=== PATIENT | female | born 1940 | race Caucasian/White ===

== ENCOUNTER 2022-04-16 09:50 | Inpatient (IN) | payer MEDICARE, SELFPAY ==
[2022-04-16] VITALS (17 sets, daily range): BP systolic 104–183; BP diastolic 53–77; PULSE 55–78; RESP 16–24; TEMP 35.7–36.2; O2SAT 88–97; BMI 25.6; BMI 23.4
--- NOTE | 2022-04-16 10:33 | CRLHL7_ITS ---
For Patients: As a result of the Century Cures Act, medical imaging exams and procedure reports are released immediately into your electronic medical record. You may view this report before your referring provider. If you have questions, please contact your health care provider. INDICATION: Dyspnea. History of coated. History of breast cancer. COMPARISON: None provided. TECHNIQUE: 90 mL Isovue-370 IV contrast. FINDINGS: Adequate pulmonary artery opacification with no filling defects. Prominent atherosclerosis of aorta and coronary arteries without aneurysmal dilatation. Dense mitral valve calcification. Normal heart size. No pericardial effusion. Small dependent right pleural effusion. Small punctate calcified granulomas in the spleen. No adrenal nodule. Relatively atrophied right greater left kidneys. Moderate architectural distortion, lucent blebs and reticular prominence for emphysema in the lung parenchyma. Mild peribronchial interstitial thickening. Scattered foci of small volume retained fluid/mucous in the dependent bronchi in the lower lobes bilaterally. No aspiration pneumonitis appreciated. No pneumonia. No significant nodules. No bone finding of significance. No pathologic adenopathy. IMPRESSION: 1. Moderate emphysema and bronchitis. Several foci of presumed retained mucus in dependent bronchi in the lower lobes. 2. Prominent atherosclerosis including coronary. 3. Mitral valve calcification. Please note that all CT scans at this facility use dose modulation, iterative reconstruction, and/or weight-based dosing when appropriate to reduce radiation dose to as low as reasonably achievable. Dictated by Jose Dixon MD @ 04/16/2022 12:29:09 PM (Electronically Signed)
[2022-04-16 10:58] LABS: HCO3 VBG 33 mmol/L (21-28); PCO2 VBG 60 mmHG (40-50); PO2 VBG 32.4 mmHG (25-47); pH VBG 7.354 (7.32-7.43)
[2022-04-16 11:01] LABS: Basophils Absolute Auto 0.02 K/uL (0.00-0.30); Basophils Percent Auto 0.3 % (0.0-3.0); Eosinophils Percent Auto 1.6 % (0.0-7.0); Hematocrit 41.1 % (33.0-51.0); Hemoglobin* 12.7 gm/dL (12.0-16.0); Immature Granulocytes Abs Auto 0.01 K/uL (0.00-0.30); Lymphocytes Absolute Auto 1.35 K/uL (0.90-2.90); Lymphocytes Percent Auto 22.2 % (20-44); Mean Corpuscular HGB Conc 31 gm/dL (32-36); Mean Corpuscular Hemoglobin 29 pg (26-34); Mean Corpuscular Volume 92 fL (80-100); Monocytes Percent Auto 6.9 % (0.0-11.0); Neutrophils Absolute Auto 4.18 K/uL (1.7-7.0); Neutrophils Percent Auto 68.8 % (42.0-72.0); Platelet Count* 167 K/uL (140-440); RDW Coefficient of Variation % 13.9 % (11.5-15.5); Red Blood Count 4.45 m/uL (4.00-5.20); White Blood Count* 6.08 K/uL (4.50-11.00)
[2022-04-16 11:02] LABS: Slide Review Reflex No
[2022-04-16 11:15] LABS: Albumin* 3.8 g/dL (3.3-5.0); Chloride* 102 mmol/L (96-114); Sodium* 140 mmol/L (135-149)
[2022-04-16 11:18] LABS: Carbon Dioxide* 31 mmol/L (20-32); Creatinine* 1.3 mg/dL (0.5-1.5); Est. Creatinine Clearance* 26.84; Estimated Glomerular Filt Rate 41 ml/min
[2022-04-16 11:19] LABS: Alanine Aminotransferase* 24 U/L (4-35); Alkaline Phosphatase* 87 U/L (40-150); Aspartate Amino Transferase* 25 U/L (12-35); Bilirubin Direct* 0.2 mg/dL (0.0-0.5); Bilirubin Total* 0.5 mg/dL (0.1-1.5); Blood Urea Nitrogen* 27 mg/dL (7-30); Calcium* 8.9 mg/dL (8.4-10.6); Glucose* 139 mg/dL (60-115); Total Protein* 6.9 g/dL (6.0-8.3)
[2022-04-16 11:20] LABS: D Dimer Quantitative* 1.87 ug/ml (0.00-0.50)
[2022-04-16 11:23] LABS: C Reactive Protein* < 0.5 mg/dL (0.5-1.0)
[2022-04-16 11:27] LABS: NT Pro B Type NatriureticPept* 3070 PG/mL (0-450)
[2022-04-16 11:38] LABS: PCR FLU A Negative PCR FLU A (Negative); PCR FLU B Negative PCR FLU B (Negative); PCR RSV Negative PCR RSV (Negative)
[2022-04-16 11:45] LABS: Troponin I* < 0.01 ng/mL (0.01-0.04)
[2022-04-16 11:55] LABS: SARS PCR* POSITIVE SARS-CoV-2 (Negative)
[2022-04-16 12:38] LABS: SARS Antigen* negative (Negative)
[2022-04-16] MEDS: METHYLPREDNISOLONE SOD SUCC 62.5 MG/ML (125) 125 MG IVP ×3 (13:03→23:51)
--- NOTE | 2022-04-16 13:19 | ED.NURSE ---
Pt up to use the bathroom. Oxygen upon returning to room 48% on RA. 4.5L NC applied. Oxygen returned to 95%. Dropped NC to 2L.
--- NOTE | 2022-04-16 14:11 | P.IMHP_ITS ---
Hospitalist- H&P: HPI History of Present Illness Time Seen by Provider: 14:00 Date Seen: 04/16/22 Chief complaint: left foot swollen Narrative: Sol Oliva is a 81 year old female who presented to the emergency room with her for concerns of hypoxia. Oxygen saturation was 70% this morning ( wanted to check her saturations given L foot edema). She has had this edema for approximately 1-1.5 weeks. No trauma or inciting incident. Toes have occasionally felt heavy and buzzy but no significant pain. This morning, her noted that left foot was more swollen than usual, and wanted to check her oxygen saturation out of curiosity. Given significant hypoxia, she then did a nebulizer treatment, but her saturation never improved past 84%. Sol has had no chest pain, wheezing, dyspnea, fever, or other signs or symptoms of illness. No history of blood clots. ER course and findings: - no PE on CT of chest, + moderate emphysema noted with several foci of presumed retained mucus in dependent lower lobe bronchi - GFR 28, creatinine of 1.3 (was 18 and 1.7 earlier this month) - CO2 of 60, negative troponin, mildly elevated BNP of 307 - given a neb and Solu-Medrol Had COVID in February, as did her . She has not had any ill contacts recently. Her COVID antigen test was negative in the emergency room, and her CT scan did not exhibit any signs of active COVID infection. Notable history: Right-sided breast cancer in 2020, sees Oncology locally through the [facility]. She had a lumpectomy in the fall of 2020 locally. She remains on Anastrozole. She was diagnosed with COPD in 2020. PFTs completed 05/2021 by [facility] (Dr. Langley) prior to her lumpectomy: FEV1 25% of predicted, FEV1/FVC 42%, severe obstructive disease by GOLD criteria. She has had Stiolto prescribed for quite some time for COPD management, but secondary to cost restraints she did not start this medication until yesterday (04/15). History of osteoporosis, on Zometa infusions twice/year. Her most recent dose was held secondary to acute kidney injury with a creatinine of 1.7. Known moderate aortic stenosis, most recent TTE performed at [facility] (05/2021): Normal LV chamber size, no regional wall motion abnormalities, EF of 66%, small AAA, moderate aortic stenosis She saw her PCP, Dr. Patterson, recently. At that time (04/08), her Chlorthalidone was held, with plans to recheck creatinine next month. Lives locally with (he would be medical decision maker if needed) and adult children - daughter in [place]. 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 Former smoker, quit in fall 2020. Rare social ETOH. Review of Systems Status of ROS: Reports: 10 or more systems reviewed and unremarkable except as noted in History and below [facility] Medical History (Updated 04/16/22 @ 15:25 by Whitney Zimmer MD) Breast cancer (2020) COPD, severe Diverticulosis Dyslipidemia Gastroesophageal reflux Hypertension Internal hemorrhoids Osteoporosis Personal history of colonic polyps PVD (peripheral vascular disease) Vitamin D deficiency Surgical History History of bilateral cataract extraction (2017) History of lumpectomy of right breast (2020) History of major vascular surgery (2006) Tubal ligation status Family History (Updated 03/18/22 @ 12:58 by Vanita Joseph) Family/Other Breast cancer Sister Coronary artery disease Social History (Updated 03/18/22 @ 12:59 by Vanita Joseph) Narrative: Tobacco use- 1 pack/day, 50 pack years Does not exercise , homemaker, 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 Social drinker- 5/week Highest level of school completed/degree received: 10th grade Smoking Status: Former smoker What tobacco products do you use: cigarettes Smoking packs per day: 1 Smoking cigarettes per day: 20.0 Years smoked: 60 Smoking pack-years: 60.00 Smoking quit date/years: <= 15 years ago Do you use any of these nicotine containing products: None Second hand tobacco smoke exposure: No How often do you have a drink containing alcohol: monthly or less How many standard drinks containing alcohol do you have on a typical day: 1 or 2 How often do you have six or more drinks on one occasion: Never AUDIT-C Alcohol total score: 1 Non-prescribed substance use: denies use Caffeine: Yes (3 cups coffee daily) service: No Meds Home Medications and Allergies Home Medications Medication Instructions Recorded Confirmed Type anastrozole 1 mg tablet 1 mg PO QDAY 03/22/22 04/16/22 History atenolol 25 mg tablet 25 mg PO QDAY 03/22/22 04/16/22 History atorvastatin 40 mg tablet 40 mg PO QDAY 03/22/22 04/16/22 History chlorthalidone 25 mg tablet 25 mg PO QDAY 03/22/22 04/16/22 History cholecalciferol (vitamin D3) 25 25 mcg PO QDAY 03/22/22 04/16/22 History mcg (1,000 unit) capsule tiotropium 2.5 mcg-olodaterol 2.5 2 inh INHALATION Q24H 04/16/22 04/16/22 History mcg/actuation mist for inhalation (Stiolto Respimat) Home Medication Comments: Started Stiolto 04/15 Holding Chlorthalidone since 04/08 Allergies Allergy/AdvReac Type Severity Reaction Status Date / Time sulfamethoxazole Allergy Intermediate Hives Verified 03/22/22 15:46 [From Sulfamethoxazole-Trimethoprim] trimethoprim Allergy Intermediate Hives Verified 03/22/22 15:46 [From Sulfamethoxazole-Trimethoprim] Exam Narrative: Exam Narrative: GEN: Alert and oriented, answering questions appropriately and speaking in full sentences HEENT: Normal external ears, EOMIs bilaterally, no scleral icterus CV: RRR, harsh systolic murmur heard best at left sternal border with radiation into both carotids R: Decreased lung sounds bilaterally without concerning wheezes or rales, air movement decreased Ext: Mild edema of bilateral feet, L >R. Dorsalis pedis pulses palpated on the right, diminished but palpable on the left Skin: Hyperpigmentation of bilateral lower extremities consistent with PVD Neuro: Nonfocal, no resting tremor Psych: Appropriate Const: Vital Signs, click to edit/add: Vital Signs - 24 hr 04/16/22 09:54 04/16/22 10:23 04/16/22 10:59 Temperature 96.2 F L Pulse Rate [Right Pulse Oximeter] 78 Respiratory Rate 24 Pulse Oximetry 97 96 94 Hospitalist - H&P: Result Labs Labs: Short CBC 04/16/22 Range/Units 10:45 WBC 6.08 (4.50-11.00) K/uL Hgb 12.7 (12.0-16.0) gm/dL Hct 41.1 (33.0-51.0) % Plt Count 167 (140-440) K/uL BMP 04/16/22 10:45 Sodium 140 Potassium 4.0 Chloride 102 Carbon Dioxide 31 BUN 27 Creatinine 1.3 Glucose 139 H Calcium 8.9 Cardiac Enzymes 04/16/22 Range/Units 10:45 Troponin I < 0.01 L (0.01-0.04) ng/mL Liver Function 04/16/22 Range/Units 10:45 Total Bilirubin 0.5 (0.1-1.5) mg/dL Direct Bilirubin 0.2 (0.0-0.5) mg/dL AST 25 (12-35) U/L ALT 24 (4-35) U/L Alkaline Phosphatase 87 (40-150) U/L Albumin 3.8 (3.3-5.0) g/dL Assessment and Plan Assessment and plan (1) Acute respiratory failure with hypoxia: Status: Acute (2) COPD, severe: Status: Chronic (3) PVD (peripheral vascular disease): Status: Chronic (4) Edema of left foot: Status: Acute (5) Systolic murmur: Status: Acute (6) Hypertension: Status: Chronic Plan 81 yo female with acute hypoxic respiratory failure 2/2 COPD exacerbation: 1. COPD exacerbation: Continue IV steroids as started in the emergency room. Given severe disease (FEV1 25%) and retained mucus on imaging, will cover with renally dosed Cefepime. Supplemental oxygen with saturation between 88-90% to minimize CO2 retention. 2. Left foot edema: Ddx includes PVD, rebound edema (recently stopped Chlorthalidone), CHF, DVT. Ultrasound ordered to assess left lower extremity for DVT. 3. Heart murmur, known moderate aortic stenosis from May 2021 TTE: Repeat TTE to assess. 4. Recent decrease in renal function: GFR and creatinine have improved from earlier this month, will continue to follow. 5. Essential hypertension: Number slightly above age-appropriate goal, likely secondary to recent discontinuation of chlorthalidone. Will continue home atenolol insulin numbers closely. 6. Comorbidities as noted in HPI (osteoporosis, breast cancer): Continue home medications. 7. Ppx: Renally dosed Lovenox. 8. Patient requests DNI status if her respiratory function were to decline. She is amenable to BiPAP if indicated.
--- NOTE | 2022-04-16 14:15 | CRLHL7_ITS ---
For Patients: As a result of the Century Cures Act, medical imaging exams and procedure reports are released immediately into your electronic medical record. You may view this report before your referring provider. If you have questions, please contact your health care provider. INDICATION: Left foot edema TECHNIQUE: Ultrasound venous duplex lower left extremity. Compression venous exam was performed using zuñiga-scale, color Doppler, and spectral Doppler analysis. COMPARISON: None FINDINGS: Sonographic imaging demonstrates the left common femoral, deep femoral, superficial femoral, popliteal, posterior tibial and greater saphenous and the contralateral right common femoral veins to be fully compressible with normal color Doppler blood flow. IMPRESSION: No sonographic evidence of left lower extremity DVT. Dictated by Julius Morin MD @ 04/16/2022 3:59:41 PM (Electronically Signed)
[2022-04-16] MEDS: ENOXAPARIN 30 MG/0.3ML INJ SUBCUT (17:05)
[2022-04-16] MEDS: CEFEPIME HCL 1 GM in 0.9 % SODIUM CHLORIDE Mini-bag 100 ML IVPB (17:06)
[2022-04-16] MEDS: SODIUM CHLORIDE 0.9 % (FLUSH) 10 ML SYRINGE 5 ML IVF ×2 (17:47→20:42)
--- NOTE | 2022-04-16 18:58 | PC.NURSE ---
Admission-- Very pleasant and cooperative, alert and oriented patient was admitted to Med-Surg. Mildly hypertensive, but VSS and pt is afebrile. SpO2 maintained >90% on 2L per n.c. LS diminished in bases posteriorly, otherwise CTA. Telemetry shows NSR. 1+pitting edema noted in bilateral LE. Murmur. She denied nausea and tolerated a regular diet without difficulty. She stated a normal BM this afternoon. She was up to the chair and BR independently with O2, but did desat to 80s and become mildly SOB with exertion. and daughter were at bedside this evening and appear loving and supportive. Report to oncoming shift.
--- NOTE | 2022-04-16 19:35 | ED_ITS ---
HPI - General Adult General Date Seen: 04/16/22 Chief complaint: Unspecified Complaint, Adult Stated complaint: Ankle swelling Time Seen by Provider: 04/16/22 10:00 Source: patient History of Present Illness HPI narrative: Patient is a an 81-year-old woman who presented to the emergency department ostensibly to have edema in her foot evaluated. She says she always has a little bit of swelling on a sometimes in her right foot, sometimes in her left, but she feels that the left foot is a little bit worse today. When she woke up and noted the foot swelling, apparently her wanted to check her O2 sats out of curiosity. She reports no shortness of breath at that time. However, when he checked her O2 sats, her oxygen saturation was 70%. They tried a neb at home, and her oxygen saturation improved to 84%, but then dwindled back down to the 70s. They came into the emergency department she says really just for the foot evaluation. She seems to remain unconcerned about her oxygen levels, and actually fairly distressed when any mention is made of them. She does understand that she has COPD, she has a new inhaler that was prescribed and she just started that yesterday (Stiolto). She says that she also has albuterol, which she feels that her tobacco stripping machine operator at [place] told her she could use in combination with this medication, but the pharmacist told her she should use them together, so she is not exactly sure what she should do. In any case, she denies to me any chest pain, fevers, cough, or really any other pulmonary complaints. She and her both had COVID in February. She denies any persistent respiratory complaints related to that. She denies any pain or redness in the leg. She denies any history of blood clots in the legs or lungs. She does have a history of breast cancer, and had a lumpectomy about a year ago. She says that they did not feel she was a good surgical candidate because of her breathing. She also tells me that she had some renal insufficiency earlier this summer, possibly related to a medication for her breast cancer. She was supposed to have an infusion for osteoporosis that was held because of her renal insufficiency. Her chlorthalidone was stopped and her creatinine was supposed to be rechecked in a couple of weeks. She is concerned about her kidneys as well. She is very fearful of the idea that she might need to be on home oxygen. Related Data Home Medications Medication Instructions Recorded Confirmed anastrozole 1 mg tablet 1 mg PO QDAY 03/22/22 04/16/22 atenolol 25 mg tablet 25 mg PO QDAY 03/22/22 04/16/22 atorvastatin 40 mg tablet 40 mg PO QDAY 03/22/22 04/16/22 chlorthalidone 25 mg tablet 25 mg PO QDAY 03/22/22 04/16/22 cholecalciferol (vitamin D3) 25 25 mcg PO QDAY 03/22/22 04/16/22 mcg (1,000 unit) capsule tiotropium 2.5 mcg-olodaterol 2.5 2 inh INHALATION Q24H 04/16/22 04/16/22 mcg/actuation mist for inhalation (Stiolto Respimat) Allergies Allergy/AdvReac Type Severity Reaction Status Date / Time sulfamethoxazole Allergy Intermediate Hives Verified 03/22/22 15:46 [From Sulfamethoxazole-Trimethoprim] trimethoprim Allergy Intermediate Hives Verified 03/22/22 15:46 [From Sulfamethoxazole-Trimethoprim] Review of Systems Status of ROS: Reports: 10 or more systems reviewed and unremarkable except as noted in History and below [facility] History Breast cancer (2020) COPD, severe Diverticulosis Dyslipidemia Gastroesophageal reflux Hypertension Internal hemorrhoids Osteoporosis Personal history of colonic polyps PVD (peripheral vascular disease) Vitamin D deficiency Surgical History History of bilateral cataract extraction (2017) History of lumpectomy of right breast (2020) History of major vascular surgery (2006) Tubal ligation status Family History Family/Other Breast cancer Sister Coronary artery disease Social History Narrative: Tobacco use- 1 pack/day, 50 pack years 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 not exercise , 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, 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 Social drinker- 5/week Highest level of school completed/degree received: 10th grade Smoking Status: Former smoker What tobacco products do you use: cigarettes Smoking packs per day: 1 Smoking cigarettes per day: 20.0 Years smoked: 60 Smoking pack-years: 60.00 Smoking quit date/years: <= 15 years ago Do you use any of these nicotine containing products: None Second hand tobacco smoke exposure: No How often do you have a drink containing alcohol: monthly or less How many standard drinks containing alcohol do you have on a typical day: 1 or 2 How often do you have six or more drinks on one occasion: Never AUDIT-C Alcohol total score: 1 Non-prescribed substance use: denies use Caffeine: Yes (3 cups coffee daily) service: No Exam Narrative: Exam Narrative: Vital signs as noted above. In general, an alert, nontoxic elderly woman. Breathing comfortably on 2 L of oxygen by nasal cannula. Head: Normocephalic, atraumatic. Eyes: Pupils are equal reactive. Extraocular movements are full. Conjunctivae are normal. ENT: Mucous membranes are moist. Throat is normal. Neck: Supple without lymphadenopathy. No stridor. Heart: Regular rate and rhythm. Systolic murmur heard best at the left sternal border. Lungs: Decreased breath sounds bilaterally, occasional wheezing. Abdomen: Soft and nontender. No organomegaly. Extremities: Trace edema bilateral feet, left greater than right. No significant erythema. Pulses intact. No calf tenderness. Neurologic: Patient is alert and oriented to person and place. Speech is fluent. Face is symmetric. Moves all extremities equally. Affect: Intermittently tearful. Skin: Warm and dry. Well perfused on oxygen. Const: Vital Signs, click to edit/add: Vital Signs - 24 hr 04/16/22 09:54 04/16/22 10:00 04/16/22 10:23 Temperature 96.2 F L Pulse Rate [Right Pulse Oximeter] 78 68 Respiratory Rate 24 16 Blood Pressure [Ri ght Upper Arm] 163/77 H Pulse Oximetry 97 95 96 04/16/22 10:59 04/16/22 11:45 04/16/22 12:00 Temperature 96.2 F L 96.2 F L Pulse Rate [Right Pulse Oximeter] 68 64 Respiratory Rate 16 16 Blood Pressure [Ri ght Upper Arm] 142/57 H 150/59 H Pulse Oximetry 94 96 95 04/16/22 12:30 04/16/22 13:00 07/30/22 13:30 Temperature 96.2 F L 96.2 F L 96.2 F L Pulse Rate [Right Pulse Oximeter] 63 68 60 Respiratory Rate 16 16 16 Blood Pressure [Ri ght Upper Arm] 145/58 H 132/67 129/59 L Pulse Oximetry 92 88 96 04/16/22 14:00 04/16/22 14:30 Temperature 96.2 F L 96.2 F L Pulse Rate [Right Pulse Oximeter] 62 67 Respiratory Rate 16 16 Blood Pressure [Ri ght Upper Arm] 130/62 183/77 H Pulse Oximetry 96 94 Documenting provider has reviewed patient's vital signs: yes Course Course Hospital Course: On arrival, patient was significantly hypoxic but responded well to oxygen. La bs were drawn, IV established. Given recent COVID and breast cancer diagnosis I elected to go straight to CT scan of the chest, but we did have to wait for her creatinine given that this is been elevated recently. Diagnostic considerations included pneumonia, COPD exacerbation, congestive heart failure, NH, pulmonary embolism. Labs revealed a normal white blood cell count of 6, hemoglobin of 12 .7. D-dimer was elevated at 1.87. Venous gas showed an elevated pCO2 of 60, baseline unknown. Bicarb was 33, pH was normal at 7.35. Metabolic panel was normal, creatinine today is 1.3. Blood sugars 139. LFTs are normal today. Troponin was less than 0.01. CRP likewise normal. BNP elevated at 3070. TSH was normal at 1.7. Her COVID PCR was normal, antigen was negative, suggesting that likely she has recovered from her COVID diagnosis in February and does not have active COVID disease today. She had a CT chest with contrast which by my review did not show any evidence of pulmonary embolism, nor did she have evidence of significant infiltrate to suggest COVID pneumonia or other active pneumonia. Final radiology report was read as negative for pulmonary embolism. She did evidence of emphysema, some mucus plugging noted as well as some bronchial thickening. I gave her 125 mg of Solu-Medrol. Overall her hypoxia today is most likely a result of an exacerbation of her underlying COPD, with some CO2 retention. Despite the mildly elevated BNP, I do not see findings on exam or CT does suggest significant congestive heart failure here today. She says that she has had an echocardiogram previously, this was not done here but she believes it was done at [place] which I do not currently have access to. She does have a murmur here today, she does not recall what the echo showed in terms of an explanation for the murmur. She is willing to stay in the hospital as she understands at least in the short term she requires oxygen therapy. Vital Signs Vital signs: Initial Vital Signs Temperature 96.2 F L 04/16/22 09:54 Temperature Source Temporal Artery Scan 04/16/22 09:54 Pulse Rate 78 04/16/22 09:54 Pulse Rhythm 04/16/22 09:54 Pulse Strength 3+ Normal 04/16/22 09:54 Respiratory Rate 24 04/16/22 09:54 Blood Pressure Position Supine 04/16/22 09:54 Pulse Oximetry 97 04/16/22 09:54 Oxygen Delivery Method 04/16/22 09:54 Oxygen Flow Rate 4.5 04/16/22 09:54 Vital Signs Temperature 96.2 F L 04/16/22 09:54 Pulse Rate 78 04/16/22 09:54 Respiratory Rate 24 04/16/22 09:54 Pulse Oximetry 97 04/16/22 09:54 Temperature 96.2 F L 04/16/22 15:47 Pulse Rate 69 04/16/22 17:21 Respiratory Rate 16 04/16/22 18:04 Blood Pressure 183/77 H 04/16/22 14:30 Pulse Oximetry 90 04/16/22 18:04 Medical Decision Making Lab Data Labs: Lab Results 04/16/22 04/16/22 04/16/22 Range/Units 10:45 10:45 10:45 WBC (4.50-11.00) K/uL RBC (4.00-5.20) m/uL Hgb (12.0-16.0) gm/dL Hct (33.0-51.0) % MCV (80-100) fL MCH (26-34) pg MCHC (32-36) gm/dL RDW Coeff of Chuckie (11.5-15.5) % Plt Count (140-440) K/uL Neut % (Auto) (42.0-72.0) % Lymph % (Auto) (20-44) % [place] % (Auto) (0.0-11.0) % Eos % (Auto) (0.0-7.0) % Baso % (Auto) (0.0-3.0) % Neut # (Auto) (1.7-7.0) K/uL Lymph # (Auto) (0.90-2.90) K/uL [place] # (Auto) (0.00-0.90) K/UL Eos # (Auto) (0.00-0.50) K/uL Baso # (Auto) (0.00-0.30) K/uL Abs Immat Gran (auto) (0.00-0.30) K/uL D-Dimer Quant (PE/DVT) 1.87 H (0.00-0.50) ug/ml VBG pH (7.32-7.43) VBG pCO2 (40-50) mmHG VBG pO2 (25-47) mmHG VBG HCO3 (21-28) mmol/L Sodium 140 (135-149) mmol/L Potassium 4.0 (3.6-5.1) mmol/L Chloride 102 (96-114) mmol/L Carbon Dioxide 31 (20-32) mmol/L BUN 27 (7-30) mg/dL Creatinine 1.3 (0.5-1.5) mg/dL Estimated Creat Clear 26.84 Estimated GFR 41 ml/min Glucose 139 H (60-115) mg/dL Calcium 8.9 (8.4-10.6) mg/dL Total Bilirubin 0.5 (0.1-1.5) mg/dL Direct Bilirubin 0.2 (0.0-0.5) mg/dL AST 25 (12-35) U/L ALT 24 (4-35) U/L Alkaline Phosphatase 87 (40-150) U/L Troponin I < 0.01 L (0.01-0.04) ng/mL C-Reactive Protein < 0.5 L (0.5-1.0) mg/dL NT-Pro-B Natriuret Pep 3070 H (0-450) PG/mL Total Protein 6.9 (6.0-8.3) g/dL Albumin 3.8 (3.3-5.0) g/dL TSH 1.770 (0.270-4.200) uIU/mL SARS-CoV-2 (PCR) (Negative) Influenza Type A (PCR) (Negative) Influenza Type B (PCR) (Negative) RSV (PCR) (Negative) SARS-CoV-2 Ag (Rapid) (Negative) 04/16/22 04/16/22 04/16/22 Range/Units 10:45 10:45 10:50 WBC 6.08 (4.50-11.00) K/uL RBC 4.45 (4.00-5.20) m/uL Hgb 12.7 (12.0-16.0) gm/dL Hct 41.1 (33.0-51.0) % MCV 92 (80-100) fL MCH 29 (26-34) pg MCHC 31 L (32-36) gm/dL RDW Coeff of Chuckie 13.9 (11.5-15.5) % Plt Count 167 (140-440) K/uL Neut % (Auto) 68.8 (42.0-72.0) % Lymph % (Auto) 22.2 (20-44) % [place] % (Auto) 6.9 (0.0-11.0) % Eos % (Auto) 1.6 (0.0-7.0) % Baso % (Auto) 0.3 (0.0-3.0) % Neut # (Auto) 4.18 (1.7-7.0) K/uL Lymph # (Auto) 1.35 (0.90-2.90) K/uL [place] # (Auto) 0.40 (0.00-0.90) K/UL Eos # (Auto) 0.10 (0.00-0.50) K/uL Baso # (Auto) 0.02 (0.00-0.30) K/uL Abs Immat Gran (auto) 0.01 (0.00-0.30) K/uL D-Dimer Quant (PE/DVT) (0.00-0.50) ug/ml VBG pH 7.354 (7.32-7.43) VBG pCO2 60 H (40-50) mmHG VBG pO2 32.4 (25-47) mmHG VBG HCO3 33 H (21-28) mmol/L Sodium (135-149) mmol/L Potassium (3.6-5.1) mmol/L Chloride (96-114) mmol/L Carbon Dioxide (20-32) mmol/L BUN (7-30) mg/dL Creatinine (0.5-1.5) mg/dL Estimated Creat Clear Estimated GFR ml/min Glucose (60-115) mg/dL Calcium (8.4-10.6) mg/dL Total Bilirubin (0.1-1.5) mg/dL Direct Bilirubin (0.0-0.5) mg/dL AST (12-35) U/L ALT (4-35) U/L Alkaline Phosphatase (40-150) U/L Troponin I (0.01-0.04) ng/mL C-Reactive Protein (0.5-1.0) mg/dL NT-Pro-B Natriuret Pep (0-450) PG/mL Total Protein (6.0-8.3) g/dL Albumin (3.3-5.0) g/dL TSH (0.270-4.200) uIU/mL SARS-CoV-2 (PCR) POSITIVE SARS-CoV-2 A (Negative) Influenza Type A (PCR) Negative PCR FLU A (Negative) Influenza Type B (PCR) Negative PCR FLU B (Negative) RSV (PCR) Negative PCR RSV (Negative) SARS-CoV-2 Ag (Rapid) (Negative) 04/16/22 Range/Units 12:11 WBC (4.50-11.00) K/uL RBC (4.00-5.20) m/uL Hgb (12.0-16.0) gm/dL Hct (33.0-51.0) % MCV (80-100) fL MCH (26-34) pg MCHC (32-36) gm/dL RDW Coeff of Chuckie (11.5-15.5) % Plt Count (140-440) K/uL Neut % (Auto) (42.0-72.0) % Lymph % (Auto) (20-44) % [place] % (Auto) (0.0-11.0) % Eos % (Auto) (0.0-7.0) % Baso % (Auto) (0.0-3.0) % Neut # (Auto) (1.7-7.0) K/uL Lymph # (Auto) (0.90-2.90) K/uL [place] # (Auto) (0.00-0.90) K/UL Eos # (Auto) (0.00-0.50) K/uL Baso # (Auto) (0.00-0.30) K/uL Abs Immat Gran (auto) (0.00-0.30) K/uL D-Dimer Quant (PE/DVT) (0.00-0.50) ug/ml VBG pH (7.32-7.43) VBG pCO2 (40-50) mmHG VBG pO2 (25-47) mmHG VBG HCO3 (21-28) mmol/L Sodium (135-149) mmol/L Potassium (3.6-5.1) mmol/L Chloride (96-114) mmol/L Carbon Dioxide (20-32) mmol/L BUN (7-30) mg/dL Creatinine (0.5-1.5) mg/dL Estimated Creat Clear Estimated GFR ml/min Glucose (60-115) mg/dL Calcium (8.4-10.6) mg/dL Total Bilirubin (0.1-1.5) mg/dL Direct Bilirubin (0.0-0.5) mg/dL AST (12-35) U/L ALT (4-35) U/L Alkaline Phosphatase (40-150) U/L Troponin I (0.01-0.04) ng/mL C-Reactive Protein (0.5-1.0) mg/dL NT-Pro-B Natriuret Pep (0-450) PG/mL Total Protein (6.0-8.3) g/dL Albumin (3.3-5.0) g/dL TSH (0.270-4.200) uIU/mL SARS-CoV-2 (PCR) (Negative) Influenza Type A (PCR) (Negative) Influenza Type B (PCR) (Negative) RSV (PCR) (Negative) SARS-CoV-2 Ag (Rapid) negative (Negative) Discharge Plan Discharge Clinical Impression: Acute respiratory failure with hypoxia, COPD (chronic obstructive pulmonary disease) Discharge Location: [facility]
[2022-04-16] MEDS: atenoloL 25 MG TABLET PO (20:37)
[2022-04-16] MEDS: ATORVASTATIN CALCIUM 40 MG TABLET PO (20:37)
[2022-04-17] VITALS (9 sets, daily range): BP systolic 108–133; BP diastolic 41–88; PULSE 55–74; RESP 16–18; TEMP 36.3–36.8; O2SAT 91–98
[2022-04-17] MEDS: METHYLPREDNISOLONE SOD SUCC 62.5 MG/ML (125) 125 MG IVP ×4 (06:25→23:59)
--- NOTE | 2022-04-17 06:40 | PC.NURSE ---
Alert and oriented x3. Remained on O2 overnight. Desats with exertion. Not tolerating weaning. Vitals stable. No/ less swelling noted on the left leg. Denies pain. Ambulates independently in the room. No further concerns noted
[2022-04-17 07:09] LABS: HCO3 VBG 31 mmol/L (21-28); PCO2 VBG 54 mmHG (40-50); PO2 VBG 50.4 mmHG (25-47); pH VBG 7.372 (7.32-7.43)
[2022-04-17 07:13] LABS: Basophils Absolute Auto 0.01 K/uL (0.00-0.30); Basophils Percent Auto 0.1 % (0.0-3.0); Hematocrit 37.5 % (33.0-51.0); Hemoglobin* 11.8 gm/dL (12.0-16.0); Lymphocytes Percent Auto 10.1 % (20-44); Mean Corpuscular HGB Conc 32 gm/dL (32-36); Mean Corpuscular Hemoglobin 28 pg (26-34); Mean Corpuscular Volume 90 fL (80-100); Monocytes Percent Auto 2.2 % (0.0-11.0); Neutrophils Percent Auto 87.6 % (42.0-72.0); Platelet Count* 186 K/uL (140-440); Red Blood Count 4.16 m/uL (4.00-5.20); White Blood Count* 7.21 K/uL (4.50-11.00)
[2022-04-17 07:15] LABS: Slide Review Reflex No
[2022-04-17 07:38] LABS: Albumin* 3.4 g/dL (3.3-5.0); Chloride* 104 mmol/L (96-114); Potassium* 4.7 mmol/L (3.6-5.1); Sodium* 137 mmol/L (135-149)
[2022-04-17 07:41] LABS: Alanine Aminotransferase* 19 U/L (4-35); Alkaline Phosphatase* 71 U/L (40-150); Aspartate Amino Transferase* 21 U/L (12-35); Bilirubin Total* 0.3 mg/dL (0.1-1.5); Blood Urea Nitrogen* 31 mg/dL (7-30); Carbon Dioxide* 30 mmol/L (20-32); Creatinine* 1.2 mg/dL (0.5-1.5); Est. Creatinine Clearance* 26.41; Estimated Glomerular Filt Rate 45 ml/min; Glucose* 163 mg/dL (60-115); Total Protein* 6.3 g/dL (6.0-8.3)
[2022-04-17 07:42] LABS: Calcium* 8.3 mg/dL (8.4-10.6)
[2022-04-17] MEDS: IPRAT-ALBUT 0.5-2.5 MG/3 ML NEB 1 NEB IH (08:11)
--- NOTE | 2022-04-17 11:13 | RESP.RT ---
Patient has a significant smoking history 50+ pack year history. Patient was using albuterol inhaler, but was recently switched to a maintenance inhaler 2 days ago. She has been complaining of a persistent cough over the past week that is similar to Covid and COPD cough. Her feet are also swollen and she may have some extra fluid that is also contributing to her significant desaturation. Her SAT on 2L NC is 96% at rest, but she has significant desaturation to 68% on RA with activity. She will require high flow O2 to keep SAT at 90% with activity.
[2022-04-17] MEDS: SODIUM CHLORIDE 0.9 % (FLUSH) 10 ML SYRINGE 5 ML IVF ×2 (12:01→20:48)
--- NOTE | 2022-04-17 15:02 | PM.IMPN1 ---
Progress Note: A&P Assessment and plan (1) Acute respiratory failure with hypoxia: Status: Acute Assessment and Plan: Requiring less oxygen now. While on oxygen she continues to desaturate with any movement. May require home oxygen support. (2) COPD, severe: Status: Chronic Assessment and Plan: Continue with COPD exacerbation treatment efforts as instituted. (3) PVD (peripheral vascular disease): Status: Chronic (4) Edema of left foot: Status: Acute Assessment and Plan: Improved today. (5) Systolic murmur: Status: Acute Assessment and Plan: Preliminary echo demonstrates moderate aortic stenosis, unchanged from previously. (6) Hypertension: Status: Chronic Assessment and Plan: Adequately modified on current regimen. Plan 1. Reviewed with patient. Answered her questions. She expresses understanding. 2. If her condition continues to stabilize it is possible she may be ready for discharge as early as tomorrow with or without oxygen depending on her needs overnight. 3. Patient is agreeable to above stated plans and recommendations. Time Spent With Patient Total time spent: 30 minutes Subjective Time Seen by Provider: 09:30 Date Seen: 04/17/22 Interval history: Patient feels well. Not quite to baseline. Notes that the oxygen support is quite helpful. Not nearly as dyspneic as she was previously. She notes that she does have baseline level of dyspnea. She has been monitoring her oxygen saturations in the hospital in state that they continue to dip with any movement. Baseline level of cough. Cough nonproductive. No hemoptysis. Denies wheezing. No fever, rigors, diaphoresis. Denies chest heaviness, pressure, tightness, or pain. Denies syncope or near-syncope. No nausea or vomiting. Eating and drinking without difficulties. Acknowledges a very gradual weight loss over a long period of time. No recent significant change in weight. Exam Narrative: Exam Narrative: No acute distress. Alert. Oriented to self, place, time, situation. Somewhat anxious. Tells me she would like to go home. Mood and affect are congruent. Articulate and cooperative. Thin facial features and neck. Barrel-shaped chest. Independent transfer, station, and gait. Lungs with prolonged expiratory phase otherwise clear at this time. Hypertympanitic chest to percussion. No CVA pain. Heart tones distant but regular rhythm. Systolic murmur noted. Abdomen thin, active bowel sounds, soft, nontender. Thin extremities with muscle wasting. No peripheral edema. Const: Vital Signs, click to edit/add: Vital Signs - 24 hr 04/16/22 15:43 04/16/22 15:47 04/16/22 17:21 Temperature 96.2 F L Pulse Rate 69 Pulse Rate [Pulse Oximeter] Respiratory Rate 16 16 Blood Pressure [Le ft Arm] Pulse Oximetry 90 90 04/16/22 18:04 04/16/22 19:00 04/16/22 23:00 Temperature 97.2 F L 97.2 F L Pulse Rate Pulse Rate [Pulse Oximeter] 55 L Respiratory Rate 16 16 16 Blood Pressure [Le ft Arm] 104/53 L 104/53 L Pulse Oximetry 90 92 94 04/17/22 03:00 04/17/22 07:48 04/17/22 09:37 Temperature 97.6 F 98.2 F Pulse Rate Pulse Rate [Pulse Oximeter] 64 67 67 Respiratory Rate 16 18 18 Blood Pressure [Le ft Arm] 108/61 121/60 Pulse Oximetry 94 98 04/17/22 12:04 04/17/22 12:13 Temperature 98.2 F Pulse Rate 61 Pulse Rate [Pulse Oximeter] 74 Respiratory Rate 18 Blood Pressure [Le ft Arm] 125/55 L Pulse Oximetry 93 Documenting provider has reviewed patient's vital signs: yes Labs Labs: Laboratory Results - last 24 hr 04/17/22 04/17/22 04/17/22 06:22 06:22 06:22 WBC 7.21 RBC 4.16 Hgb 11.8 L Hct 37.5 MCV 90 MCH 28 MCHC 32 RDW Coeff of Chuckie 14.0 Plt Count 186 Neut % (Auto) 87.6 H Lymph % (Auto) 10.1 L [place] % (Auto) 2.2 Eos % (Auto) 0.0 Baso % (Auto) 0.1 Neut # (Auto) 6.30 Lymph # (Auto) 0.70 L [place] # (Auto) 0.20 Eos # (Auto) 0.00 Baso # (Auto) 0.01 Abs Immat Gran (auto) 0.00 VBG pH 7.372 VBG pCO2 54 H VBG pO2 50.4 H VBG HCO3 31 H Sodium 137 Potassium 4.7 Chloride 104 Carbon Dioxide 30 BUN 31 H Creatinine 1.2 Estimated Creat Clear 26.41 Estimated GFR 45 Glucose 163 H Calcium 8.3 L Total Bilirubin 0.3 AST 21 ALT 19 Alkaline Phosphatase 71 Total Protein 6.3 Albumin 3.4
[2022-04-17] MEDS: ENOXAPARIN 30 MG/0.3ML INJ SUBCUT (16:47)
[2022-04-17] MEDS: CEFEPIME HCL 1 GM in 0.9 % SODIUM CHLORIDE Mini-bag 100 ML IVPB (16:47)
--- NOTE | 2022-04-17 19:23 | PC.NURSE ---
End of shift-- Very pleasant and cooperative, alert and oriented patient. VSS and pt is afebrile. SPO2 maintained >89% on 2L per n.c. most of the day. With activity or while eating patient does desat briefly, but is able to recover quickly. She denied any pain. LS clear but diminished this afternoon, but she did have expiratory wheezing throughout this morning and was given a PRN neb. Frequent coughing noted. Telemetry NSR. 1+ pitting edema noted in bilateral ankles particularly toward the back of ankles. She was up in room independently. was at bedside this morning and appears loving and supportive. Report to GAIL Girard.
[2022-04-17] MEDS: atenoloL 25 MG TABLET PO (20:47)
[2022-04-17] MEDS: ATORVASTATIN CALCIUM 40 MG TABLET PO (20:47)
[2022-04-18 03:00] VITALS: BP 116/39; PULSE 55; RESP 16; TEMP 36.9; O2SAT 95
[2022-04-18] MEDS: METHYLPREDNISOLONE SOD SUCC 62.5 MG/ML (125) 125 MG IVP (06:10)
[2022-04-18 07:10] VITALS: PULSE 58
[2022-04-18 07:31] LABS: HCO3 VBG 31 mmol/L (21-28); PCO2 VBG 55 mmHG (40-50); PO2 VBG 26.5 mmHG (25-47); pH VBG 7.362 (7.32-7.43)
--- NOTE | 2022-04-18 07:53 | PC.NURSE ---
END OF SHIFT NOTE: PT PLEASANT AND COOPERATIVE. AMBULATES INDEPENDENTLY IN ROOM. VSS ON 1.5-2L SUPPLEMENTAL OXYGEN VIA NC. PT DESATS INTO 80'S WITH CONVERSATION AND ACTIVITY. SATS REBOUND >90% WITHIN A MINUTE. TELE READS SINUS BRADYCARDIA. LSCTA. PRODUCTIVE COUGH. PT DENIES CHEST PAIN, DYSPNEA, N/V. PT SLEPT WITH HS.
[2022-04-18 08:00] VITALS: O2SAT 74; O2SAT 86; O2SAT 90
--- NOTE | 2022-04-18 08:56 | W.PM.HOT ---
Acute Home Oxygen Therapy Acute Home Oxygen Therapy Provider Note Provider Note: Patient was admitted on 04/16/22 at 15:27 and will be discharging on 04/18/22 Patient is desaturating with SATs of 74% on room air due to acute on chronic respiratory failure with hypoxia and hypercapnia. Alternative therapies have been attempted and have not been successful in maintaining the patient's saturation level above 88%. Supplemental O2 is required. This patient is mobile within the home and requires portability.
[2022-04-18 09:23] VITALS: BP 110/37; PULSE 66; RESP 18; TEMP 36.5; O2SAT 91
--- NOTE | 2022-04-18 11:07 | PC.SOCIAL ---
Pt. will need oxygen at discharge and a referral was made to [facility].
--- NOTE | 2022-04-18 11:47 | PC.NURSE ---
Discharge: Patient pleasant and cooperative, received teachings on new home o2. Vitals stable and WNL. Discharge paperwork reviewed with patient and spouse. IV removed with catheter intact. Patient independent with ADLs and ambulation. Discharged to home with home o2 @ 1135 via wheelchair. picked up from front entrance.
--- NOTE | 2022-04-18 16:34 | P.DS_ITS ---
DS: Providers Provider Time Seen by Provider: 09:30 Date Seen: 04/18/22 Date of admission: 04/16/22 15:27 Primary care physician: Alethea Patterson MD Admitting Clinician: Whitney Zimmer MD Consults: 04/16/22 15:27 Consult to Respiratory Therapy [CONS] Routine Comment: Reason(s) for RT Consult:: Consult 04/17/22 09:02 Consult to Respiratory Therapy [CONS] Routine Comment: Reason(s) for RT Consult:: Consult Comment: [place] Attending Physician on discharge: Ceasar Alvarado MD Date of Discharge: 04/18/22 DS: Diagnosis Discharge Diagnosis (1) Acute on chronic respiratory failure with hypoxia and hypercapnia: Status: Acute (2) Chronic respiratory failure with hypercapnia: Status: Acute (3) Systolic murmur: Status: Acute (4) COPD, severe: Status: Chronic (5) Hypertension: Status: Chronic (6) Dyslipidemia: Status: Chronic (7) PVD (peripheral vascular disease): Status: Chronic (8) Carotid stenosis: Status: Chronic Problem details: R > 70%. left 59%, declined to schedule vascular appointment (9) Gastroesophageal reflux: Status: Chronic (10) Osteoporosis: Status: Chronic Problem details: declined alendronate, will do exercise, vit D and calcium (11) Breast cancer: Status: Chronic (12) Hypoxia: Status: Acute DS: Summary Hospital Course Hospital Course: Sol Oliva is a 81 year old female who presented to the emergency room with her for concerns of hypoxia. Oxygen saturation was 70% this morning ( wanted to check her saturations given L foot edema).? She has had this edema for approximately 1-1.5 weeks.? No trauma or inciting incident. Toes have occasionally felt heavy and buzzy but no significant pain.? This morning, her noted that left foot was more swollen than usual, and wanted to check her oxygen saturation out of curiosity. Given significant hypoxia, she then did a nebulizer treatment, but her saturation never improved past 84%. Sol has had no chest pain, wheezing, dyspnea, fever, or other signs or symptoms of illness.? No history of blood clots. ER course and findings: ?- no PE on CT of chest, + moderate emphysema noted with several foci of presumed retained mucus in dependent lower lobe bronchi ?- GFR 28, creatinine of 1.3 (was 18 and 1.7 earlier this month) ?- CO2 of 60, negative troponin, mildly elevated BNP of 307 ?- given a neb and Solu-Medrol Had COVID in February, as did her .? She has not had any ill contacts recently. Her COVID antigen test was negative in the emergency room, and her CT scan did not exhibit any signs of active COVID infection. Notable history: Right-sided breast cancer in 2020, sees Oncology locally through the [facility].? She had a lumpectomy in the fall of 2020 locally.? She remains on Anastrozole.? She was diagnosed with COPD in 2020.??PFTs completed 05/2021?by [facility] (Dr. Langley) prior to her lumpectomy:? FEV1 25% of predicted, FEV1/FVC 42%, severe obstructive disease by GOLD criteria. She?has had Stiolto prescribed for quite some time for COPD management, but secondary to cost restraints she did not start this medication until yesterday (04/15). History of osteoporosis, on Zometa infusions twice/year.? Her most recent dose was held secondary to acute kidney injury with a creatinine of 1.7. Known moderate aortic stenosis, most recent TTE performed at [facility] (05/2021):? Normal LV chamber size, no regional wall motion abnormalities, EF of 66%, small AAA, moderate aortic stenosis She saw her PCP, Dr. Patterson, recently.? At that time (04/08), her Chlorthalidone was held, with plans to recheck creatinine next month. Lives locally with (he would be medical decision maker if needed) and adult children - daughter in [place]. 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 Former smoker, quit in fall 2020. Rare social ETOH. Stabilized on our treatment efforts. On date of discharge we established that she does indeed warrant chronic use of oxygen supplementation, 1 liter/minute via nasal cannula continuously at rest and 5 liters/minute via nasal cannula with any exertion. She is confident she can proceed with this. She will follow-up as recommended with her primary care physician and others or assisting her at this time. Status at Discharge Functional status at discharge: independent ambulation Overall status at discharge: patient is progressing back to baseline Time Spent with Patient Time attestation: Total time spent providing and/or coordinating discharge services: Time spent: Greater than 30 minutes Exam Narrative: Exam Narrative: Patient is desaturating with SATs of 74% on room air due to acute on chronic respiratory failure with hypoxia and hypercapnia. Alternative therapies have been attempted and have not been successful in maintaining the patient's saturation level above 88%. Supplemental O2 is required. This patient is mobile within the home and requires portability. No acute distress.? Alert.? Oriented to self, place, time, situation.? Somewhat anxious.? Tells me she would like to go home.? Mood and affect are congruent.? Articulate and cooperative.? Thin facial features and neck. Barrel-shaped chest. Independent transfer, station, and gait.? Lungs with prolonged expiratory phase otherwise clear at this time.? Hypertympanitic chest to percussion.? No CVA pain. Heart tones distant but regular rhythm.? Systolic murmur noted. Abdomen thin, active bowel sounds, soft, nontender. Thin extremities with muscle wasting. No peripheral edema. Const: Vital Signs, click to edit/add: Vital Signs - 24 hr 04/17/22 16:38 04/17/22 16:58 04/17/22 20:00 Temperature 97.5 F L 97.4 F L Pulse Rate Pulse Rate [Pulse Oximeter] 65 65 62 Respiratory Rate 16 16 16 Blood Pressure [Le ft Arm] 115/88 133/41 L Pulse Oximetry 91 92 Oxygen Delivery Me thod Room Air Nasal Cannula Oxygen Flow Rate 2 04/17/22 23:00 04/17/22 23:00 04/17/22 23:00 Temperature 97.4 F L Pulse Rate Pulse Rate [Pulse Oximeter] 55 L 62 Respiratory Rate 16 16 16 Blood Pressure [Le ft Arm] 114/47 L Pulse Oximetry 96 96 Oxygen Delivery Me thod Nasal Cannula Nasal Cannula Oxygen Flow Rate 2 2 04/17/22 23:00 04/18/22 07:10 04/18/22 03:00 Temperature 98.4 F Pulse Rate 55 L 58 L Pulse Rate [Pulse Oximeter] 55 L Respiratory Rate 16 Blood Pressure [Le ft Arm] 116/39 L Pulse Oximetry 95 Oxygen Delivery Me thod Nasal Cannula Oxygen Flow Rate 1.5 04/18/22 09:23 04/18/22 09:23 Temperature 97.7 F Pulse Rate Pulse Rate [Pulse Oximeter] 66 Respiratory Rate 18 Blood Pressure [Le ft Arm] 110/37 L Pulse Oximetry 91 91 Oxygen Delivery Me thod Nasal Cannula Nasal Cannula Oxygen Flow Rate 1.5 18 Documenting provider has reviewed patient's vital signs: yes DS: Data Data Completed and Pending Labs on day of discharge: Labs from last 24 hours 04/18/22 07:02 VBG pH 7.362 VBG pCO2 55 H VBG pO2 26.5 VBG HCO3 [address] scan - chest: Radiologist's impression: CT angiogram demonstrated no pulmonary embolism: 1. Moderate emphysema and bronchitis. Several foci of presumed retained mucus in dependent bronchi in the lower lobes. 2. Prominent atherosclerosis including coronary. 3. Mitral valve calcification. Venous US: Radiologist's impression: No sonographic evidence of left lower extremity DVT. Discharge Plan Discharge Disposition: Home, Self-Care Date of Admission: 04/16/22 15:27 Attending Provider on Discharge: Ceasar Alvarado Primary Care Provider: Alethea Patterson Condition: Improved Anticipated Discharge Date/Time: 04/18/22 12:00 Discharge Medications: New (DME) Home Oxygen Misc See Rx Instructions .Route Qty: 1 0RF Rx Instructions: 1 LPM NC at rest, 5 LPM NC with activity atenolol 25 mg tablet 12.5 mg PO DAILY Qty: 15 2RF chlorthalidone 25 mg tablet 12.5 mg PO DAILY Qty: 15 2RF doxycycline monohydrate 100 mg tablet 100 mg PO BID Qty: 10 0RF Continued atorvastatin 40 mg tablet 40 mg PO QDAY anastrozole 1 mg tablet 1 mg PO QDAY cholecalciferol (vitamin D3) 25 mcg (1,000 unit) capsule 25 mcg PO QDAY Stiolto Respimat 2.5-2.5 mcg/actuation mist 2 inh INHALATION Q24H Label Comments: INHALE 2 PUFFS BY MOUTH ONCE DAILY Discontinued atenolol 25 mg tablet 25 mg PO QDAY chlorthalidone 25 mg tablet 25 mg PO QDAY Hold Instructions: stopped for LUZ MARIA on 04/08 Discharge Orders: Discharge Order (Routine); Ordered 04/18/22 Ordered By: Ceasar Alvarado Patient Education: Using Oxygen at Home (GEN) Activity Restrictions/Additional Instructions: 1. Follow-up with Dr. Patterson in 1-2 weeks with previsit CBC and Basic Metabolic Panel Activity Level: No Restrictions and Activity as Tolerated Activity Detail: Use oxygen at all times: 1 LPM via Nasal Canula at rest, 5 LPM via Nasal Canula with any activity. Discharge Diet: 2 gm Sodium Follow Up Appointments: Alethea Patterson MD [Primary Care Provider] - 04/21/22 8:00 am Forms: [employer] Info Instructions
== END 2022-04-18 11:30 | disposition home or self-care (01) | DRG 189 ==
LOC: ED 10:42 → MEDSURG 14:54
PROVIDERS: Internal Medicine; Admitting Provider Family Medicine; Emergency Provider Emergency Medicine; PCP Family Medicine; Visit Provider Family Medicine
DX: J96.22 Acute and chronic respiratory failure with hypercapnia (principal); J96.21 Acute and chronic respiratory failure with hypoxia; J44.9 Chronic obstructive pulmonary disease, unspecified; I10 Essential (primary) hypertension; I73.9 Peripheral vascular disease, unspecified; R60.0 Localized edema; R01.1 Cardiac murmur, unspecified; I35.0 Nonrheumatic aortic (valve) stenosis; K21.9 Gastro-esophageal reflux disease without esophagitis; E78.5 Hyperlipidemia, unspecified; Z85.3 Personal history of malignant neoplasm of breast; M81.0 Age-related osteoporosis without current pathological fracture; Z86.16 Personal history of COVID-19; Z87.891 Personal history of nicotine dependence
CPT/HCPCS: 36415; 71260; 80048; 80053; 80076; 82565; 82803; 83880; 84443; 84484; 85025; 85379; 86140; 87426; 87502; 87634; 87635; 93005; 93306; 93971; 94640; 94761; 99284; 99285; G0378; A9270; J0692; J1650; J2930; Q9967

== ENCOUNTER 2022-04-21 08:30 | Outpatient (CLI) | payer MEDICARE, SELFPAY ==
[2022-04-21 12:42] LABS: Chloride* 101 mmol/L (96-114)
[2022-04-21 12:43] LABS: Potassium* 3.8 mmol/L (3.6-5.1); Sodium* 139 mmol/L (135-149)
[2022-04-21 12:45] LABS: Creatinine* 1.3 mg/dL (0.5-1.5); Estimated Glomerular Filt Rate 41 ml/min
[2022-04-21 12:46] LABS: Blood Urea Nitrogen* 28 mg/dL (7-30); Calcium* 8.7 mg/dL (8.4-10.6); Carbon Dioxide* 34 mmol/L (20-32); Glucose* 86 mg/dL (60-115)
--- OUTSIDE RECORDS SUMMARY | 2022-04-27 02:55 | XMS_ITS ---
:1940 Author Organization [facility] Address [address] [place] [address] Care Team Providers Name Role Phone Unavailable Primary Care Provider Unavailable Active Problems Problem Noted Date Malignant Neoplasm Of Breast Lower Outer Quadrant Fema le Right 07/19/2021 Cancer Staging: Pathologic stage from : No Stage Recommended (pT1c, cN0, cM0, G2, ER+, UT+, HER2-) - Unsigned Murmur Aortic Outflow 06/14/2021 Emphysema 06/14/2021 Preoperative Examination Cardiovascular 06/14/2021 Bruit Neck 06/14/2021 Current Oncology Plans No current plan information found. Past Plans No past plan information found. Radiation Treatments Plan Last Treated Elapsed Days Fractions Prescribed Prescribed Total On Treated Fraction Dose Dose F1 R breast 08/20/2021 4 5 of 5 520 cGy 2,600 cGy Reference Point Last Treated On Elapsed Days Session Dose Total Dos e [id number] 08/20/2021 4 520 cGy 2,600 cGy
--- OUTSIDE RECORDS SUMMARY | 2022-04-27 02:55 | XMS_ITS | Clinical Summary ---
:1940 Author Organization [facility] Address [address] [place] [address] Care Team Providers Name Role Phone Unavailable Primary Care Provider Unavailable Source Comments Patient records contain information from all sites at [facility]. For routine questions regarding patient records, call [phone] during business hours, M-F 8:00 AM - 5:00 PM Central Time. Record requests for emergency care only can be directed to [phone] at any time.[facility] Allergies Active Allergy Reactions Severity Noted Date Comments Sulfamethoxazole-Trimethoprim Hives High 06/11/2021 Medications Medication Sig Dispensed Refills Start End Date Status Date UNABLE TO FIND Take 300 mg by 0 Active mouth daily as 9 needed. raNITIdine (ZANTAC) 300 MG tablet aspirin [address] Take 1 tablet 0 Active tablet by mouth every 4 other day. atenoloL (TENORMIN) Take 1 tablet 0 Active 25 mg tablet by mouth 1 daily. atorvastatin Bedtime 0 Active (LIPITOR) 40 mg 4 tablet carbamide peroxide 5-10 drops. 0 Active (DEBROX) 6.5 % otic 5 solution chlorthalidone Daily 0 Activ e (HYGROTON) 25 mg 4 tablet famotidine (PEPCID) 0 Active 20 mg tablet 0 potassium chloride 10 mg po twice 0 Active (KLOR-CON SPRINKLE) a week 7 10 mEq ER sprinkle capsule simvastatin (ZOCOR) Take 1 tablet 0 Active 80 mg tablet by mouth at 1 bedtime. anastrozole Take 1 mg by 0 Activ e (ARIMIDEX) 1 mg mouth daily. tablet Swallow whole with a drink of water. albuterol 90 Inhale 1-2 18 g 3 06/14/20 Active mcg/actuation puffs every 4 1 22 inhaler (four) hours as needed for wheezing or shortness of breath. traMADoL (ULTRAM) 50 Take 50 mg by 0 Active mg tablet mouth every 6 1 (six) hours as needed. cholecalciferol Daily 0 Acti ve (VITAMIN D3) 50 mcg (2,000 Unit) tablet acetaminophen As Needed 0 Active (TYLENOL 8 HR) 650 mg ER tablet tiotropium-olodatero Inhale 2 puffs 4 g 0 Active L (Stiolto Respimat) once daily. 2 2.5-2.5 mcg/actuation inhaler tiotropium-olodatero Inhale 2 puffs 4 g 11 03/19 Discontinued L (Stiolto Respimat) once daily. 1 22 (Reorder) 2.5-2.5 mcg/actuation inhaler Active Problems Problem Noted Date Malignant Neoplasm Of Breast Lower Outer Quadrant Fema le Right 07/19/2021 Cancer Staging: Pathologic stage from : No Stage Recommended (pT1c, cN0, cM0, G2, ER+, AR+, HER2-) - Unsigned Murmur Aortic Outflow 06/14/2021 Emphysema 06/14/2021 Preoperative Examination Cardiovascular 06/14/2021 Bruit Neck 06/14/2021 Social History Tobacco Use Types Packs/Day Years Used Date Smoking Tobacco: Every Day Cigarettes 0.8 60 Alcohol Habits Answer Date Recorded How often do you have a drink containing alcohol? Monthly or less 06/11/2021 How many drinks containing alcohol do you have on a 1 or 2 06/11/2021 typical day when you are drinking? How often do you have six or more drinks on one Never 06/11/2021 occasion? Comment: Not asked Social Isolation Answer Date Recorded In a typical week, how many times do you More than three navin es a week 06/11/2021 talk on the phone with family, friends, or neighbors? How often do you get together with friends Three times a wee k 06/11/2021 or relatives? How often do you attend restoration or Never 2020 jewish services? Do you belong to any clubs or No 06/11/2021 organizations such as restoration groups, unions, fraternal or athletic groups, or school groups? How often do you attend meetings of the Never 06/11/2021 clubs or organizations you belong to? Are you now , , , 06/11/2021 , never or living with a partner? Physical Activity Answer Date Recorded On average, how many days per week do you engage in moderate to 0 days 06/11/2021 strenuous exercise (like walking fast, running, jogging, dancing, swimming, biking, or other activities that cause a light or heavy sweat)? On average, how many minutes do you engage in exercise at th is 0 min 06/11/2021 level? Stress Answer Date Recorded Do you feel stress - tense, restless, nervous, or Only a lit tle 06/11/2021 anxious, or unable to sleep at night because your mind is troubled all the time - these days? Financial Resource Strain Answer Date Recorded How hard is it for you to pay for the very basics like Not h dru at all 06/11/2021 food, housing, medical care, and heating? Food Insecurity Answer Date Recorded Within the past 12 months, you worried that your food would Never true 06/11/2021 run out before you got money to buy more. Within the past 12 months, the food you bought just didn't N ever true 06/11/2021 last and you didn't have money to get more. Transportation Needs Answer Date Recorded In the past 12 months, has lack of transportation kept you f rom No 06/11/2021 medical appointments or from getting medications? In the past 12 months, has lack of transportation kept you f rom No 06/11/2021 meetings, work, or getting things needed for daily living? Housing Stability Answer Date Recorded In the last 12 months, was there a time when you were not ab le No 06/11/2021 to pay the mortgage or rent on time? In the last 12 months, how many places have you lived? 1 06/11/2021 In the last 12 months, was there a time when you did not hav e a No 06/11/[address] sleep or slept in a jail (including now)? Education Answer Date Recorded What is the highest level of school you have completed or 11 th grade 06/11/2021 the highest degree you have received? Sex Assigned at Date Recorded Female 06/11/2021 12:59 PM CDT Last Filed Vital Signs Vital Sign Reading Time Taken Comments Blood Pressure 155/56 08/02/2021 12:58 PM [employer] Pulse 69 08/02/2021 12:58 PM [employer] Temperature 36.3 ??C (97.3 ??F) 08/18/2021 9:46 AM [employer] Respiratory Rate - - Oxygen Saturation 88% 06/14/2021 7:40 AM CDT Inhaled Oxygen Concentration - - Weight 49.3 kg (108 lb 11 oz) 08/18/2021 9:46 AM [employer] Height 150.9 cm (4' 11.41) 06/14/2021 7:40 AM CDT Body Mass Index 21.65 06/14/2021 7:40 AM CDT Plan of Treatment Health Maintenance Due Date Last Done Comments Tobacco Cessation counseling 1940 Depression Screening (Annual 09/18/2021 PHQ-2) Fall Risk Screen (Annual) 09/18/2021 COVID-19 Vaccine (5 - Booster for 05/13/2022 01/11/2022, , Pfizer series) 11/21/2020, Additional history exists Creatinine Level 06/14/2022 06/14/2021 Potassium Level 06/14/2022 06/14/2021 Sodium Level 06/14/2022 06/14/2021 Influenza Vaccine (#1) 2022 07/12/2021, 07/08/2020, 06/27/2019, Additional history exists DTaP,Tdap,and Td Vaccines (2 - Td 09/19/2022 09/19/2012, , or Tdap) 12/09/1999 Pneumococcal vaccine (65+ years) Completed 08/30/2017, 06/2014, 09/19/2012, Additional history exists Zoster Vaccines Completed 05/01/2018, 03/01/2018, 03/05/2009 Insurance Payer Benefit Plan / Subscriber ID Effective Dates Phone Addre ss Type Group ARE [facility] FOR [id number] 2019-Present [phone] [address] [place] [address]
--- OUTSIDE RECORDS SUMMARY | 2022-04-27 02:55 | XMS_ITS | Encounter Summary ---
:1940 Author Organization [facility] Address [address] [place] [address] Care Team Providers Name Role Phone Unavailable Primary Care Provider Unavailable Reason for Referral Radiation Therapy (Routine) - Authorized Specialty Diagnoses / Procedures Referred By Contact Refer red To Contact Diagnoses Malignant Neoplasm Of Breast Lower Outer Quadrant Female Right (HCC) Mukseh Stone M.D. [facility] Procedures Management Visit [address] [place] [address] Referral ID Status Reason Start Date Expiration Date Visits V isits Requested Authorized [id number] Authorized 07/20/2021 07/20/2022 10 10 PROGRAMER Reason for Visit Radiation Therapy (Routine) - Authorized Specialty Diagnoses / Procedures Referred By Contact Refer red To Contact Diagnoses Malignant Neoplasm Of Breast Lower Outer Quadrant Female Right (HCC) Mukesh [facility] M.D. [facility] Procedures Management Visit [address] [place] [address] Referral ID Status Reason Start Date Expiration Date Visits V isits Requested Authorized [id number] Authorized 07/20/2021 07/20/2022 10 10 Encounter Details Date Type Department Care Team Description 08/18/2021 Hospital Encounter Department of Mukesh Stone Neoplasm Radiation Oncology [place] Of Breast Lower in [place], [address] [place], [place] Female Right (HCC) [address] [address] [place], [place] [phone] (Work) [phone] Social History Tobacco Use Types Packs/Day Years [...] or relatives? How often do you attend taoist or Never 2020 christianity services? Do you belong to any clubs or No 06/11/2021 organizations such as taoist groups, unions, fraternal or athletic groups, or [...] place to sleep or slept in a longterm (including now)? Education Answer Date Recorded What is the highest level of school you have completed or 11 th grade 06/11/2021 the highest degree you have received? Sex Assigned at Date Recorded Female 06/11/2021 12:59 PM CDT documented as of this encounter Last Filed Vital Signs Vital Sign Reading Time Taken Comments Blood Pressure - - Pulse - - Temperature 36.3 ??C (97.3 ??F) 08/18/2021 9:46 AM GAME PROGRAMER Respiratory Rate - - Oxygen Saturation - - Inhaled Oxygen Concentration - - Weight 49.3 kg (108 lb 11 oz) 08/18/2021 9:46 AM GAME PROGRAMER Height - - Body Mass Index 21.65 06/14/2021 7:40 AM CDT documented in this encounter Medications at Time of Discharge Medication Sig Dispensed Refills Start Date End Date acetaminophen (TYLENOL 8 As Needed 0 HR) 650 mg ER tablet albuterol 90 Inhale 1-2 puffs 18 g 3 06/14/20212021 mcg/actuation inhaler every 4 (four) hours as needed for wheezing or shortness of breath. anastrozole (ARIMIDEX) 1 Take 1 mg by mouth 0 mg tablet daily. Swallow whole with a drink of water. aspirin [address] tablet Take 1 tablet by 0 2013 mouth every other day. atenoloL (TENORMIN) 25 mg Take 1 tablet by 0 07/20 tablet mouth daily. atorvastatin (LIPITOR) 40 Bedtime 0 10/18/2013 mg tablet carbamide peroxide 5-10 drops. 0 01/02/2015 (DEBROX) 6.5 % otic solution chlorthalidone (HYGROTON) Daily 0 10/18/2013 25 mg tablet cholecalciferol (VITAMIN Daily 0 D3) 50 mcg (2,000 Unit) tablet famotidine (PEPCID) 20 mg 0 02/05/2020 tablet traMADoL (ULTRAM) 50 mg Take 50 mg by mouth 0 tablet every 6 (six) hours as needed. potassium chloride 10 mg po twice a 0 08/30/2017 (KLOR-CON SPRINKLE) 10 week mEq ER sprinkle capsule simvastatin (ZOCOR) 80 mg Take 1 tablet by 0 07/20 tablet mouth at bedtime. UNABLE TO FIND Take 300 mg by mouth 0 10/25/2018 daily as needed. raNITIdine (ZANTAC) 300 MG tablet tiotropium-olodateroL Inhale 2 puffs once 4 g 11 06/1404/14/2022 (Stiolto Respimat) daily. 2.5-2.5 mcg/actuation inhaler documented as of this encounter Progress Notes Mukesh Stone M.D. - 08/18/2021 9:45 AM CST SUBJECTIVE REASON FOR VISIT Evaluation for side effects while receiving radiation treatment for 1. Malignant Neoplasm Of Breast Lower Outer Quadrant Female Right (HCC) SUPERVISED BY: Mukesh Stone M.D. ([phone]) HISTORY OF PRESENT ILLNESS Mrs. Sol Oliva is an 80 y.o. 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 She is currently undergoing adjuvant whole breast radiotherapy. Treatment Course: 1x R breast Plan ID Fractions Dose / Fraction (cGy) Dose Treated (cGy) Dose Planned (cGy) First Treatment Last Treatment Elapsed Days F1 R breast 3 / [id number] 08/16/2021 08/18/2021 2 Course Summary 08/16/2021 08/18/2021 2 Her oncologic history is as follows: 1. ??April 16, 2021: ??The patient presented to Dr. Patterson with a chief complaint of a lump in her right breast that she noticed 3 days prior. ??Physical examination demonstrated in the right breast there was a 1 cm smooth, round lump at the 7 o'clock position, 4 cm from the nipple. ??No skin changes, no nipple discharge, no axillary, supra, or subclavicular lymphadenopathy. ??No palpable nodules inthe left breast. 2. April 26, 2021: ??Bilateral diagnostic mammogram demonstrated scattered fibroglandular densities.??Oval mass in the right breast lateral aspect posterior depth. ??Benign calcifications. ??No adenopathy. ??Normal left breast mammogram. ??Ultrasound of the right breast in the area of concern in the l ateral aspect of the 9 o'clock position, 7 cm from the nipple demonstrated a hypoechoic, solid mass with internal vascularity and macrolobular margins measuring 1.5 x 0.7 x 1.5 cm. ??BI-RADS 4. 3. May 03, 2021: ??Ultrasound-guided core needle biopsy of the indeterminate lesion in the right breast at the 9 o'clock position, 7 cm from the nipple with clip placement was performed. ??Pathologydemonstrated invasive ductal carcinoma with mucinous features, [place] grade 2. ??Angiolymphatic invasion was absent. ??Associated DCIS was absent. ??Estrogen receptor positive (99%). ??Progesteronereceptor positive (79%). ??HER2 by IHC negative (0). 4. May 13, 2021: ??Surgery consultation with Dr. Matilde Serrato. ??Physical examination demonstrated a palpable mass in the right breast at the 9 o'clock position. ??The mass was not fixed to the skinwall. ??No palpable axillary adenopathy. ??Surgical options were discussed and the patient was most i nterested in lumpectomy. ??She was not interested in radiation. ??The patient will proceed with pulmonary consult prior to surgery. 5. June 03, 2021: Medical Oncology consultation with Joyce Walsh???VIC Stephens who discussed that since the patient needs to be surgically optimized, they discussed therapy in the neoadjuvant setting. ??Plan to start anastrozole 1 mg by mouth daily. 6. June 14, 2021: ??Pulmonary consultation with Dr. Demarcus Langley where the patient had moderate obstruction with bronchodilator response by forced vital capacity. ??She was started on a long-acting LAMA/LABA and albuterol as needed. 7. July 01, 2021: ??Right breast lumpectomy and re-excision of the anterior margin was performed by Dr. Serrato. ??In accordance with NCCN guidelines, they elected to forego sentinel node mapping. ??Pathology of the right breast demonstrated invasive mucinous carcinoma, Ant grade 2, measuring 1.5 cm. ??DCIS or LCIS were not identified. ??Lymphovascular invasion was not identified. ??After re-excision the anterior margin, invasive carcinoma was located 2 mm from the closest posterior and lateral margins. ??Estrogen receptor positive (99%). ??Progesterone receptor positive (79%). ??HER2 by IHC negative (0). ??pT1c pNX 8. July 20, 2021: Consultation with me. Recommended whole breast adjuvant radiotherapy without a boost. 9. August 16, 2021 anticipated through August 20, 2021: Patient treated with right whole breast radiotherapy to a dose of 26 Gy in 5 fractions without a boost. The patient was seen and examined today with Dr. Stone. The patient reports that she is doing well overall. She denies any side effects from radiation therapy. She has been taking anastrozole for over 1 month now. She does experience hot flashes. PATIENT REPORTED SYMPTOM SCREEN FATIGUE (Scale: 0 = no fatigue; 10 = worst fatigue you can imagine): no more than normal PAIN (Scale: 0 = no pain; 10 = worst pain you can imagine): 0 OVERALL QUALITY OF LIFE (Scale: 0 = as bad as can be; 10 = as good as can be): 8 OBJECTIVE Temp 36.3 ??C (Temporal) Wt 49.3 kg BMI 21.65 kg/m?? PHYSICAL EXAM General: Alert and oriented in no apparent distress. ASSESSMENT / PLAN 1. Stage IA (pT1c, cN0, cM0, G2, ER+, MT+, HER2-) invasive mucinous carcinoma of the upper-outer quadrant of the right breast, status post neoadjuvant Arimidex initiated on June 03, 2021 followed by margin negative resection on July 01, 2021 2. COPD 3. Nicotine dependence with smoking cessation on June 14, 2021 4. Radiotherapy to the right whole breast initiated on August 16, 2021; anticipated completion on August 20, 2021 The patient is tolerating radiation treatment well overall. She will start applying moisturizing lotion to the treatment field area twice a day for the next 2 weeks. I reviewed Breast Self Examination pamphlet [id number] with patient today. Joyce Bennett CNP will see patient tomorrow in follow up visit. Patient will discuss anastrazole termite exterminator plan with Joyce tomorrow. She will contact us with any questions or concerns. We will continue with radiation treatment as planned. Patient stated a full understanding to the plan of care discussed today. Toxicities reviewed with Dr. Stone today. Signed by: Enma Martinez R.N. 08/18/2021 10:30 AM GAME PROGRAMER I saw and evaluated the patient and participated in the canales portions of the service. I reviewed the documentation of Enma Martinez R.N. and agree with the findings and plan. The patient appears well onexam. She has a number of questions about Anastrozole. She is uncertain if she wants to continue with the medication. She is meeting with Joyce Bennett CNP tomorrow to discuss this further. She is tolerating treatment well without side effect. We will not schedule a formal follow-up in Radiation Oncology Clinic, but the patient knows she can contact us at any time with questions or concerns. He verbalized satisfaction with this plan. She will continue with treatment as planned. Signed by: Mukesh Stone M.D. 08/18/2021 12:55 PM GAME PROGRAMER [facility] [address] [place] [address] PROGRAMER documented in this encounter Miscellaneous Notes Addendum Note - Lenora Joiner CThaoNThaoA. - 08/18/2021 9:45 AM GAME PROGRAMER Encounter addended by: Lenora Joiner C.NThaoAThao on: 08/19/2021 7:04 AM Actions taken: SmartForm saved, Letter saved PROGRAMER documented in this encounter Plan of Treatment Scheduled Orders Name Type Priority Associated Diagnoses Order S chedule Management Visit Radiation Oncology Routine Malignant Neoplasm Once for 1 Of Breast Lower Occurrences starting Outer Quadrant 08/18/2021 un til Female Right (HCC) 1 documented as of this encounter Visit Diagnoses Diagnosis Malignant Neoplasm Of Breast Lower Outer Quadrant Female Right (HCC) documented in this encounter
--- OUTSIDE RECORDS SUMMARY | 2022-04-27 02:55 | XMS_ITS | Encounter Summary ---
:1940 Author Organization [facility] Address [address] [place] [address] Care Team Providers Name Role Phone Unavailable Primary Care Provider Unavailable Reason for Visit Radiation Therapy (Routine) - Authorized Specialty Diagnoses / Procedures Referred By Contact Refer red To Contact Diagnoses Malignant Neoplasm Of Breast Lower Outer Quadrant Female Right (HCC) Mukesh Stone M.D. [facility] Procedures Prior Auth Rad Tx AR RADTN TX DEL >=1 MEV COMPLEX [address] [place] [address] Referral ID Status Reason Start Date Expiration Date Visits V isits Requested Authorized [id number] Authorized 08/16/2021 07/20/2022 5 5 Encounter Details Date Type Department Care Team Description 08/18/2021 Hospital Encounter Department of Radiation Evon Stone, Oncology in [place] [address] [facility] [address] [place], [place] [phone] [phone] Social History Tobacco Use Types Packs/Day Years [...] or relatives? How often do you attend synagogue or Never 2020 adventism services? Do you belong to any clubs or No 06/11/2021 organizations such as synagogue groups, unions, fraternal or athletic groups, or [...] place to sleep or slept in a [facility] (including now)? Education Answer Date Recorded What is the highest level of school you have completed or 11 th grade 06/11/2021 the highest degree you have received? Sex Assigned at Date Recorded Female 06/11/2021 12:59 PM CDT documented as of this encounter Medications at Time of Discharge [...] famotidine (PEPCID) 20 mg 0 02/05/2020 tablet potassium chloride 10 mg po twice a 0 08/30/2017 (KLOR-CON SPRINKLE) 10 week mEq ER sprinkle capsule simvastatin (ZOCOR) 80 mg Take 1 tablet by 0 07/20 tablet mouth at bedtime. traMADoL (ULTRAM) 50 mg Take 50 mg by mouth 0 tablet every 6 (six) hours as needed. UNABLE TO FIND Take 300 mg by mouth 0 10/25/2018 daily as needed. raNITIdine (ZANTAC) 300 MG tablet tiotropium-olodateroL Inhale 2 puffs once 4 g 11 09/27 /2021 04/14/2022 (Stiolto Respimat) daily. 2.5-2.5 mcg/actuation inhaler documented as of this encounter Plan of Treatment Not on filedocumented as of this encounter Visit Diagnoses Not on filedocumented in this encounter
--- OUTSIDE RECORDS SUMMARY | 2022-04-27 02:55 | XMS_ITS | Encounter Summary ---
:1940 Author Organization [facility] Address [address] [place] [address] Care Team Providers Name Role Phone Unavailable Primary Care Provider Unavailable Reason for Visit Radiation Therapy (Routine) - Authorized Specialty Diagnoses / Procedures Referred By Contact Refer red To Contact Diagnoses Malignant Neoplasm Of Breast Lower Outer Quadrant Female Right (HCC) Mukesh Stone M.D. [facility] Procedures Prior Auth Rad Tx MS RADTN TX DEL >=1 MEV COMPLEX [address] [place] [address] Referral ID Status Reason Start Date Expiration Date Visits V isits Requested Authorized [id number] Authorized 08/16/2021 07/20/2022 5 5 Encounter Details Date Type Department Care Team Description 08/19/2021 Hospital Encounter Department of Radiation Evon Stone, Oncology in [place] [address] [facility] [address] [place], [place] [phone] Social History Tobacco Use Types Packs/Day Years [...] or relatives? How often do you attend baptist or Never 2020 episcopalian services? Do you belong to any clubs or No 06/11/2021 organizations such as baptist groups, unions, fraternal or athletic groups, or [...] place to sleep or slept in a correction (including now)? Education Answer Date Recorded What [...]
--- OUTSIDE RECORDS SUMMARY | 2022-04-27 02:55 | XMS_ITS | Encounter Summary ---
:1940 Author Organization [facility] Address [address] [place] [address] Care Team Providers Name Role Phone Unavailable Primary Care Provider Unavailable Encounter Details Date Type Department Care Team Description 08/20/2021 Hospital Encounter Department of Radiation Evon [place], [place] [address] [facility] [address] [place], [place] [phone] Social History Tobacco Use Types Packs/Day Years [...] or relatives? How often do you attend hindu or Never 2020 hindu services? Do you belong to any clubs or No 06/11/2021 organizations such as hindu groups, unions, fraternal or athletic groups, or [...]
--- OUTSIDE RECORDS SUMMARY | 2022-04-27 02:55 | XMS_ITS | Encounter Summary ---
:1940 Author Organization [facility] Address [address] [place] [address] Care Team Providers Name Role Phone Unavailable Primary Care Provider Unavailable Encounter Details Date Type Department Care Team Description 08/20/2021 Documentation Department of Radiation [facility] [address] [facility] [address] [place], [place] [phone] (Wo rk) Social History Tobacco Use Types Packs/Day Years [...] or relatives? How often do you attend judaism or Never 2020 confucianist services? Do you belong to any clubs or No 06/11/2021 organizations such as judaism groups, unions, fraternal or athletic groups, or [...] place to sleep or slept in a group home (including now)? Education Answer Date Recorded What is the highest level of school you have completed or 11 th grade 06/11/2021 the highest degree you have received? Sex Assigned at Date Recorded Female 06/11/2021 12:59 PM CDT documented as of this encounter Miscellaneous Notes Radiation Completion Notes - Lorraine Wilde R.N. - 08/20/2021 11:59 PM [facility] DIAGNOSIS: 1. 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 ([id number]) Treatment Intent: Curative Concomitant Therapy: None Single Plan Treatment Course: 1x R breast Plan ID Fractions Dose / Fraction (cGy) Dose Treated (cGy) Dose Planned (cGy) First Treatment Last Treatment Elapsed Days F1 R breast 520 2600 2600 08/16/2021 08/20/2021 4 Course Summary 08/16/2021 08/20/2021 4 Radiation Modality: Photons CLINICAL SUMMARY Mrs. Sol Oliva completed radiation treatment as planned without interruptions. The course of treatment was tolerated well. The patient experienced no toxicities during radiation treatment. TREATMENT RESPONSE: Response to treatment will be determined by post-treatment imaging and/or laboratory work. RECOMMENDED FOLLOW UP: Primary Medical Oncologist. Signed by: Lorraine Wilde R.N., 08/23/2021 2:28 PM [facility] [address] [place] [address] [facility] documented in this encounter Plan of Treatment Not on filedocumented as of this encounter Visit Diagnoses Diagnosis Malignant Neoplasm Of Breast Lower Outer Quadrant Female Right (HCC) - Primary documented in this encounter
--- OUTSIDE RECORDS SUMMARY | 2022-04-27 02:56 | XMS_ITS | Encounter Summary ---
:1940 Author Organization [employer] Address [address] [place] [address] Care Team Providers Name Role Phone Judy Sorensen MD Primary Care Provider Reason for Visit Reason Comments Annual Exam fasting Encounter Details Date Type Department Care Team Description 08/30/2017 Office Visit [facility] Judy Sorensen, [facility] adult exam (Primary Dx); Medicine Essential hypertension; [address] [facility] Tobacco use disorder; [place] [address] [place], [place] Hypokalemia; [phone] [id number] Need for Streptococcus pneumoniae vaccin ation; [phone] (Wo rk) Need for influenza vaccination; Simple ch ronic bronchitis (HRC) Social History Tobacco Use Types Packs/Day Years Used Date Smoking Tobacco: Every Day Cigarettes 0.5 40 Smokeless Tobacco: Never Comments: Smoking History Packs/day: Alcohol Use Standard Drinks/Week Comments Yes 7 (1 standard drink = 0.6 oz pure alcoho l) Sex Assigned at Date Recorded Not on file documented as of this encounter Last Filed Vital Signs Vital Sign Reading Time Taken Comments Blood Pressure 128/82 08/30/2017 11:24 AM FACILITIES OPERATOR Pulse 68 08/30/2017 11:24 AM FACILITIES OPERATOR Temperature - - Respiratory Rate - - Oxygen Saturation - - Inhaled Oxygen Concentration - - Weight 51.3 kg (113 lb) 08/30/2017 11:24 AM FACILITIES OPERATOR Height 151.8 cm (4' 11.75) 08/30/2017 11:24 AM FACILITIES OPERATOR Body Mass Index 22.25 08/30/2017 11:24 AM FACILITIES OPERATOR documented in this encounter Progress Notes Judy Larsen MD - 08/30/2017 10:50 AM CST Chief Complaint Patient presents with ??? Annual Exam fasting Subjective: Sol Oliva is a 76 y.o. female here for routine exam. Her niece was able to quit smoking with assistance from a 1-800 number support program. She says sheplans to call, has decided she really needs to quit but has not set a quit date. Does not want medications. Currently 1/2 to 1 ppd. She doesn't want to have a repeat CT chest lung screening this year. Continues with a daily cough, long standing. Does not have PELAEZ. No chest pain. No abdominal pain. Does not feel she needs medication for her COPD. Gynecologic History No abnormal pap test in the past. Last Mammogram: 1 year ago Results: normal Patient Active Problem List Diagnosis Date Noted ??? Adenomatous polyp 08/31/2017 Overview Note: Colonoscopy at [facility] 2013, due 2018 ??? Abdominal aortic aneurysm (AAA) without rupture ([facility]) 06/21/2016 Overview Note: 2016, 3.0 cm proximal. Right common iliac 2.4 cm. ??? Aneurysm of common iliac artery ([facility]) 06/21/2016 Overview Note: 2.4 cm right. (1.9 cm left) 2015 ??? Simple chronic bronchitis ([facility]) 05/17/2016 ??? Internal hemorrhoids 02/29/2008 Overview Note: Hemorrhoids Internal NOS ??? Diverticulosis of large intestine 02/29/2008 Overview Note: Diverticulosis Colon ??? Essential hypertension ([facility]) 12/02/2005 Overview Note: LW Onset: ; Hypertension ??? Osteopenia of multiple sites 07/14/2004 Overview Note: Osteopenia ??? Benign neoplasm of colon 07/14/2004 Overview Note: LW Onset: 2000 ; Polyp Colon Adenomatous ??? Tobacco use disorder ([facility]) 02/22/2003 Overview Note: Patient declines attempts to quit ; Tobacco Abuse ??? Esophageal reflux 02/22/2003 Overview Note: Gastroesophageal Reflux Disease Past Surgical History: Procedure Laterality Date ??? AORTO-FEMORAL BYPASS GRAFT 2006 ??? BREAST BIOPSY Right long time ago ??? TUBAL LIGATION Family History Problem Relation Age of Onset ??? Heart Disease Mother ??? Thyroid Disorder Mother ??? Cancer Sister 65 lung ??? Cancer, Lung Sister ??? Heart Attack Sister 62 ??? Cancer, Breast Other 39 br ca ??? BRCA 1/2 Negative Family History ??? Cancer, Colon Negative Family History ??? Kingston Syndrome Negative Family History ??? Diethylstilbestrol Exposure Negative Family History ??? Cancer, Endometrial Negative Family History ??? Li-Fraumeni Syndrome Negative Family History ??? Cancer, Ovary Negative Family History Social History Social History ??? Marital status: Spouse name: He ??? Number of children: 3 ??? Years of education: N/A Social History Main Topics ??? Smoking status: Current Every Day Smoker Packs/day: 0.50 Years: 40.00 Types: Cigarettes ??? Smokeless tobacco: Never Used Comment: Smoking History Packs/day: ??? Alcohol use 4.2 oz/week 7 Glasses of wine per week ??? Drug use: No ??? Sexual activity: Not on file Other Topics Concern ??? Exercise No ??? Seat Belt Yes ??? Special Diet No ??? Weight Concern No Social History Narrative Current Outpatient Prescriptions Medication Sig Note Dispense Refill ??? aspirin EC 81 MG enteric coated tablet Take 1 tablet by mouth every other day. (Patient not taking: Reported on 08/30/2017) 08/30/2017: Forgets to take ??? atenolol (TENORMIN) 25 MG tablet Take 1 Tab by mouth daily. 90 Tab 3 ??? atorvastatin (LIPITOR) 40 MG tablet Take 1 Tab by mouth daily. 90 Tab 3 ??? carbamide peroxide (AURAPHENE-B) 6.5 % ear drop solution Place 5-10 drops into the right ear 2 times daily. (Patient not taking: Reported on 08/30/2017) 15 mL 0 ??? chlorthalidone (HYGROTON) 25 MG tablet Take 1 Tab by mouth daily. 90 Tab 3 ??? potassium chloride 10 MEQ controlled release capsule 10 mg po twice a week 26 Cap 3 ??? raNITIdine (ZANTAC) 300 MG tablet Take 1 tablet by mouth at bedtime as needed for Heartburn. 90 Tab 3 No current facility-administered medications for this visit. No Known Allergies Review of Systems A comprehensive review of systems was negative. Objective: BP 128/82 Pulse 68 Ht 4' 11.75 (1.518 m) Wt 113 lb (51.3 kg) BMI 22.25 kg/m2 General appearance: alert, cooperative, no distress, appears stated age Head: Normocephalic, without obvious abnormality, atraumatic Eyes: conjunctivae/corneas clear. PERRL, EOM's intact. Fundi benign Ears: Moderate cerumen bilaterally Throat: lips, mucosa, and tongue normal; teeth and gums normal Neck: supple, symmetrical, trachea midline, no adenopathy, thyroid: not enlarged, symmetric, no tenderness/mass/nodules, no carotid bruit and no JVD Back: negative, no kyphosis present Lungs: clear to auscultation bilaterally Breasts: normal appearance, no masses or tenderness Heart: regular rate and rhythm, S1, S2 normal, systolic murmur: systolic ejection 1/6, blowing at 2nd right intercostal space, no click Abdomen: soft, non-tender; bowel sounds normal; no masses, no organomegaly Pelvic: deferred Extremities: extremities normal, atraumatic, no cyanosis or edema Pulses: 2+ and symmetric Skin: Skin color, texture, turgor normal. No rashes or lesions Lymph nodes: Cervical, supraclavicular, and axillary nodes normal. Neurologic: Grossly normal Assessment: Healthy female exam. Ongoing tobacco use, expresses desire/contemplation to quit for the first time. Ischemic Heart Disease history, 10 years ago. Hypertension, controlled. hPlan: Education Reviewed and Recommended: Smoking Cessation, Self Breast Exams, Calcium Supplements, Weight Bearing Exercise, Low Fat, Low Cholesterol Diet Mammogram ordered. Follow up: 1 year She did not want to repeat lung cancer screening this year. Had CT chest 05/2016. Sol was seen today for annual exam. Diagnoses and all orders for this visit: Well adult exam Essential hypertension (HRC) Tobacco use disorder (HRC) Hypokalemia Need for Streptococcus pneumoniae vaccination - PCV13 (PREVNAR) Need for influenza vaccination - Influenza (Fluzone Highdose, 65+ Yrs) Other orders - raNITIdine (ZANTAC) 300 MG tablet; Take 1 tablet by mouth at bedtime as needed for Heartburn. - chlorthalidone (HYGROTON) 25 MG tablet; Take 1 Tab by mouth daily. - atorvastatin (LIPITOR) 40 MG tablet; Take 1 Tab by mouth daily. - atenolol (TENORMIN) 25 MG tablet; Take 1 Tab by mouth daily. - potassium chloride 10 MEQ controlled release capsule; 10 mg po twice a week Offered tobacco cessation assistance, advised of importance of quitting, patient has the intent to contact a tobacco support phone call organization that her niece had used and was able to quit. She has not set a quit date. Encouraged to set a date and make the call. We discussed supports such as Donita Hooker with the 14 or 21 mg patches to avoid nicotine withdrawal. She feels it is the habitnot the nicotine that will be her biggest camille. Discussed keeping busy. Return prn. Annual medication review. Medicare prevent visit encouraged. LITIES OPERATOR documented in this encounter Plan of Treatment Not on filedocumented as of this encounter Visit Diagnoses Diagnosis Well adult exam - Primary Routine general medical examination at a health care facility Essential hypertension (HRC) Unspecified essential hypertension Tobacco use disorder (HRC) Tobacco use disorder Hypokalemia Hypopotassemia Need for Streptococcus pneumoniae vaccin ation Need for influenza vaccination Need for prophylactic vaccination and in oculation against influenza Simple chronic bronchitis (HRC) Simple chronic bronchitis documented in this encounter Care Teams Hall Monitor Relationship Specialty Start Date End Date Judy Sorensen MD PCP - General 12/18/10 05/02/18 [address] [place] [address] documented as of this encounter
--- OUTSIDE RECORDS SUMMARY | 2022-04-27 02:56 | XMS_ITS | Encounter Summary ---
:1940 Author Organization [employer] Address [address] [place] [address] Care Team Providers Name Role Phone Judy Sorensen MD Primary Care Provider Encounter Details Date Type Department Care Team Description 08/30/2017 Lab Visit [facility] Essential hypertension [address] [place] [address] Social History Tobacco Use Types Packs/Day Years Used Date Smoking Tobacco: Every Day Cigarettes 0.5 40 Smokeless Tobacco: Never Comments: Smoking History Packs/day: Alcohol Use Standard Drinks/Week Comments Yes 7 (1 standard drink = 0.6 oz pure alcoho l) Sex Assigned at Date Recorded Not on file documented as of this encounter Plan of Treatment Not on filedocumented as of this encounter Procedures Procedure Name Priority Date/Time Associated Diagnosis Comme nts LIPID PANEL AND Routine 08/30/2017 10:28 Essential Results for this DIRECT LDL(IF AM TIE CARRIER hypertension procedure are in NEEDED) the results section. BASIC METABOLIC Routine 08/30/2017 10:28 Essential Results for this PANEL AM TIE CARRIER hypertension procedure are i n the results section. documented in this encounter Results Lipid Panel and Direct LDL(If Needed) (08/30/2017 10:28 AM TIE CARRIER) Analysis Performed At Patho logist Time Signature Cholesterol 161 0 - 199 PN SOFT mg/dL Triglycerides 108 4 - 149 PN SOFT mg/dL HDL Cholesterol 55 >39 mg/dL PN SOFT Cholesterol/HDL 2.9 PN SOFT Ratio Screen LDL Calculated 84 19 - 130 PN SOFT mg/dL Non HDL Chol, Calc 106 0 - 130 PN SOFT mg/dL Length Of Fast 14.0 PN SOFT Specimen Anatomical Collection Method Collection Time Receive d Time (Source) Location / / Volume Laterality 08/30/2017 10:28 08/30/2017 AM TIE CARRIER 10:28 AM TIE CARRIER Narrative PN SOFT - 08/30/2017 11:11 AM TIE CARRIER Performed at [facility], [address] [place] [address] CLIA number [id number] Judy Sorensen MD LAB_1 Performing Organization Address City/[facility] Phon e Number PN SOFT [address] [place] [address] [phone] (ABNORMAL) Basic Metabolic Panel (08/30/2017 10:28 AM TIE CARRIER) athologist Signature Creatinine Serum 0.80 0.55 - PN SOFT 1.02 mg/dL Lab Glucose 99 70 - 100 PN SOFT mg/dL Comment: The stated glucose range is for the fast ing state. Non-fasting glucose range is 70-180 mg/d L CO2 34 (H) 22 - 31 mmol/L PN SOFT Chloride 101 98 - 109 mmol/L PN SOFT Potassium 4.5 3.5 - 5.2 mmol/L PN SOFT Sodium 141 136 - 145 mmol/L PN SOFT Blood Urea Nitrogen 17 9 - 26 mg/dL PN SOFT Calcium 9.8 8.4 - 10.2 mg/dL PN SOFT Est GFR Am >60 >60 mL/min/1.73m2 PN SOFT Est GFR Non-Afr Am >60 >60 mL/min/1.73m2 PN SOFT Comment: Normal>60, moderate decrease 30 - 59, se james decrease 15 - 29, renal failure <15 mL/min/1.73 m2 NOTE: ??Choose the eGFR result above johanne ropriate for the race of the patient. Specimen Anatomical Collection Method Collection Time Receive d Time (Source) Location / / Volume Laterality 08/30/2017 10:28 08/30/2017 AM TIE CARRIER 10:28 AM TIE CARRIER Narrative PN SOFT - 08/30/2017 11:11 AM TIE CARRIER Performed at [facility], [address] [place] [address] CLIA number [id number] Judy Sorensen MD LAB_1 Performing Organization Address [facility] Phon e Number PN SOFT [address] [place] [address] documented in this encounter Visit Diagnoses Diagnosis Essential hypertension (HRC) Unspecified essential hypertension documented in this encounter Care Teams Assisted Living Nursing Director Relationship Specialty Start Date End Date Judy Sorensen MD PCP - General 12/18/10 05/02/18 [address] [place] [address] documented as of this encounter
--- OUTSIDE RECORDS SUMMARY | 2022-04-27 02:56 | XMS_ITS | Encounter Summary ---
:1940 Author Organization [employer] Address [address] [place] [address] Care Team Providers Name Role Phone Judy Sorensen MD Primary Care Provider Reason for Visit Procedure/Equipment (Routine) - Incomplete Specialty Diagnoses / Procedures Referred By Contact Refer red To Contact Diagnoses Follow up Judy Sorensen MD Procedures [facility] US Breast Rt [address] [place] [place] [address] Referral ID Status Reason Start Date Expiration Date Visits V isits Requested Authorized [id number] Incomplete 07/21/2017 10/20/2018 1 1 Encounter Details Date Type Department Care Team Description 08/15/2017 Imaging [place] [address] Sindey Sorensen MD Follow up Mammography [address] [employer] [facility] [address] [place] [address] [place], [place] [address] [phone] Social History Tobacco Use Types Packs/Day Years [...] Name Priority Date/Time Associated Diagnosis Comme nts [facility] US BREAST RT Routine 08/15/2017 11:40 AM Follow up Resu lts for this FORKLIFT TRUCK OPERATOR procedure are i n the results section. documented in this encounter Results [facility] US Breast Rt (08/15/2017 11:40 AM FORKLIFT TRUCK OPERATOR) Anatomical Region Laterality Modality Breast Right Ultrasound Specimen (Source) Anatomical Collection Method Collection Time Re ceived Time Location / / Volume Laterality 08/15/2017 11:30 AM FORKLIFT TRUCK OPERATOR Impressions 08/15/2017 11:50 AM FORKLIFT TRUCK OPERATOR IMPRESSION: ACR BI-RADS 2: ??Benign. RECOMMENDATION: Routine yearly mammograp hy. The patient is due for bilateral mammography on or after 02/10/2018. The results and recommendations of this examination will be communicated to the patient by the [facility] and we will attempt to schedule any recommended imaging follow up with the patient. Narrative 08/15/2017 11:50 AM FORKLIFT TRUCK OPERATOR EXAMINATION: Right breast tomosynthesis and ultrasound. HISTORY: Short interval follow-up of a r ight breast mass. COMPARISON: Mammography and ultrasound , mammography 02/10/2017, 08/18/2015, 04/01/2014. FINDINGS: Right breast tomosynthesis suma ws no suspicious change in the focal well-circumscribed mass at approximately 8:00 position posteriorly. No suspicious correlate seen by ultrasound. ?? Judy Sorensen MD RAD ILIA [facility] Mammogram Diag Rt W Andrews (08/15/2017 11:14 AM FORKLIFT TRUCK OPERATOR) Anatomical Region Laterality Modality Breast Right Mammography Specimen (Source) Anatomical Collection Method Collection Time Re ceived Time Location / / Volume Laterality 08/15/2017 11:07 AM FORKLIFT TRUCK OPERATOR Impressions 08/15/2017 11:50 AM FORKLIFT TRUCK OPERATOR IMPRESSION: ACR BI-RADS 2: ??Benign. RECOMMENDATION: Routine yearly mammograp hy. The patient is due for bilateral mammography on or after 02/10/2018. The results and recommendations of this examination will be communicated to the patient by the [facility] and we will attempt to schedule any recommended imaging follow up with the patient. Narrative 08/15/2017 11:50 AM FORKLIFT TRUCK OPERATOR EXAMINATION: Right breast tomosynthesis and ultrasound. HISTORY: Short interval follow-up of a r ight breast mass. COMPARISON: Mammography and ultrasound , mammography 02/10/2017, 08/18/2015, 04/01/2014. FINDINGS: Right breast tomosynthesis suma ws no suspicious change in the focal well-circumscribed mass at approximately 8:00 position posteriorly. No suspicious correlate seen by ultrasound. ?? Judy Sorensen MD RAD ILIA documented in this encounter Visit Diagnoses Diagnosis Follow up Follow up documented in this encounter Care Teams Public Housing Interviewer Relationship Specialty Start Date End Date Judy Sorensen MD PCP - General 12/18/10 05/02/18 [address] [place] [address] documented as of this encounter
--- OUTSIDE RECORDS SUMMARY | 2022-04-27 02:56 | XMS_ITS | Encounter Summary ---
:1940 Author Organization [facility] Address [address] [place] [address] Care Team Providers Name Role Phone Unavailable Primary Care Provider Unavailable Reason for Referral Outpatient (Routine) - Authorized Specialty Diagnoses / Procedures Referred By Contact Refer red To Contact Vascular Medicine Diagnoses Stenosis Carotid Artery Bilateral Alethea Patterson M.D. [facility] [address] [place] [address] Referral ID Status Reason Start Date Expiration Date Visits V isits Requested Authorized [id number] Authorized 07/28/2021 07/28/2022 1 1 ICULUM DEVELOPER Encounter Details Date Type Department Care Team Description 07/28/2021 [facility] [place] Artery Bilateral [facility] (Primary Dx) [place] [address] [place], [place] [phone] [id number] Social History Tobacco Use Types Packs/Day Years [...] or relatives? How often do you attend jainism or Never 2020 evangelical services? Do you belong to any clubs or No 06/11/2021 organizations such as jainism groups, unions, fraternal or athletic groups, or [...] place to sleep or slept in a fci (including now)? Education Answer Date Recorded What is the highest level of school you have completed or 11 th grade 06/11/2021 the highest degree you have received? Sex Assigned at Date Recorded Female 06/11/2021 12:59 PM CDT documented as of this encounter Plan of Treatment Scheduled Referrals Name Type Priority Associated Diagnoses Order S [facility] Vascular Center Outpatient Referral Routine Stenosis Carotid E xpected: Referral Artery Bilateral 07/28/2021 (Approximate), Expires: 07/28/2024 documented as of this encounter Visit Diagnoses Diagnosis Stenosis Carotid Artery Bilateral - Prim silvio documented in this encounter
--- OUTSIDE RECORDS SUMMARY | 2022-04-27 02:56 | XMS_ITS | Encounter Summary ---
:[address] [facility] Address [address] [place] [address] Care Team Providers Name Role Phone Unavailable Primary Care Provider Unavailable Reason for Visit Outpatient (Routine) - Closed Specialty Diagnoses / Procedures Referred By Contact Refer red To Contact Demarcus Langley M.D. [place] [address] [place] [address] Referral ID Status Reason Start Date Expiration Date Visits Requ ested Visits Authorized [id number] Closed 06/14/2021 06/14/2022 1 1 Encounter Details Date Type Department Care Team Description 06/18/2021 Telemedicine Division of Pulmonary Demarcus Langley, Sten osis Carotid Artery Bilateral (Primary Dx); Medicine in [place]; [place], [place] [address] [facility] Murmur Aortic Outflow; [address] [place], [place] Preoperative Examination Car diovascular; [place] [address] Nonrheumatic Aortic Valve Stenosis [phone] Social History Tobacco Use Types Packs/Day Years [...] or relatives? How often do you attend restorationism or Never 2020 gnosticism services? Do you belong to any clubs or No 06/11/2021 organizations such as restorationism groups, unions, fraternal or athletic groups, or [...] place to sleep or slept in a senior living (including now)? Education Answer Date Recorded What is the highest level of school you have completed or 11 th grade 06/11/2021 the highest degree you have received? Sex Assigned at Date Recorded Female 06/11/2021 12:59 PM CDT documented as of this encounter Progress Notes Demarcus Langley M.D. - 06/18/2021 10:00 AM CDT Images from the original note were not included. This is a video follow-up with the patient and her . 1.Incidental neck bruit on physical examination There is carotid artery stenosis bilaterally Ultrasound of the carotids was performed yesterday June 17. Results were faxed into [employer] and is under media. More than 70% stenosis of the right internal carotid artery involving the proximal and mid internal carotid artery. There is a 50-69% stenosis of the proximal and mid left internal carotid artery. Retrograde flow within the left vertebral artery. Recommendations: The patient is scheduled for breast cancer under [place] (noncardiac) which is not a procedure that is associated with an increase in perioperative stroke risk. Her risk factors for perioperative stroke include the followin. Older age 2. COPD 3. Female gender 4.Carotid stenosis 5. Tobacco use Past history suggestive of peripheral atherosclerotic disease: Prior history aortofemoral bypass graft in 2006 History of abdominal aortic aneurysm 3 cm proximal and right common iliac of 2.4 cm noted in the June of 2016. A comprehensive neurovascular evaluation including history and examination is recommended. Whether there is a component of intracranial vascular stenosis is unknown. The presence of retrograde flow in the left vertebral artery is suggestive of proximal vertebral artery occlusion. 2. COPD The patient has not started the Stiolto Respimat. She is concerned that starting it now means that she will not be able to stop it. I corrected this perspective. I told her that the Stiolto Respimat ismeant to optimize her lung function preoperatively. I again emphasized the need to stop smoking and her said that she is doing that. #3 Aortic murmur There is moderate aortic valve stenosis with an index aortic valve area of 0.75 cm2 per meter sq Given the patient's history of peripheral arterial disease, her age, the moderate aortic stenosis, preoperative cardiac evaluation is recommended. Twelve lead EKG performed because of frequent premature ventricular complexes showed a prolonged QT with a QTC of 474 milliseconds. In summary: This is a frail 80-year-old woman found to have significant peripheral artery disease, aortic stenosis and COPD who is undergoing a noncardiac non thoracic breast surgery. She continued to smoke until the day of appointment with me on the 14 of June. 1. There is a 20% risk of postoperative pneumonia if the patient continues to smoke prior to surgery. 2. Cardiac evaluation is recommended in a patient with peripheral artery disease and moderate aorticstenosis. 3. There is evidence of bilateral carotid artery stenosis as well as left vertebral artery proximal stenosis. A neurovascular evaluation is recommended. A total of 41 minutes for this visit and generating the note. With 50% of the encounter in virtual [id number]. documented in this encounter Plan of Treatment Not on filedocumented as of this encounter Visit Diagnoses Diagnosis Stenosis Carotid Artery Bilateral - Prim silvio Bruit Neck Murmur Aortic Outflow Preoperative Examination Cardiovascular Nonrheumatic Aortic Valve Stenosis documented in this encounter
--- OUTSIDE RECORDS SUMMARY | 2022-04-27 02:56 | XMS_ITS | Encounter Summary ---
:1940 Author Organization [facility] Address [address] [place] [address] Care Team Providers Name Role Phone Unavailable Primary Care Provider Unavailable Encounter Details Date Type Department Care Team Description 06/14/2021 Ancillary Procedure Department of Langley, Tracy G, Murmu r Aortic Outflow; Radiology in M.D. Preoperative Examination Cardiovascular; [place], [facility] [address] [facility] Emphysema (HCC) [place], [place] [address] [facility] [address] [place], [place] [phone] (Work) Social History Tobacco Use Types Packs/Day Years [...] or relatives? How often do you attend yazidi or Never 2020 sabianism services? Do you belong to any clubs or No 06/11/2021 organizations such as yazidi groups, unions, fraternal or athletic groups, or [...] place to sleep or slept in a intermediate (including now)? Education Answer Date Recorded What is the highest level of school you have completed or 11 th grade 06/11/2021 the highest degree you have received? Sex Assigned at Date Recorded Female 06/11/2021 12:59 PM CDT documented as of this encounter Plan of Treatment Not on filedocumented as of this encounter Procedures Procedure Name Priority Date/Time Associated Comments Diagnosis INTERPRETATION OF RAD - Routine 06/14/2021 8:50 Murmur Aortic Resul ts for OUTSIDE DX CHEST (most inpatients AM CDT Outflow this procedure and all Preoperative are in the outpatients) Examination results Cardiovascular section. Emphysema (HCC) documented in this encounter Results Interpretation of Outside DX Chest (06/14/2021 8:50 AM CDT) Anatomical Region Laterality Modality Thoracic RST LOS, Thoracic ARZ LOS, Thoracic FLA LOS, N/A Digital Radiography Chest, Other Specimen (Source) Anatomical Collection Method Collection Time Re ceived Time Location / / Volume Laterality 06/14/2021 9:07 AM CDT Impressions 06/14/2021 9:13 AM CDT No focal pulmonary infiltrate or nodule to correlate with groundglass opacity on outside chest CT of 06/13/2016. Prominence of the left pulmonary artery could be evidence of slight pulmonary artery enlargement from pulmonary valve stenosis or pulmonary venous hypertension. However the pulmonary outf low tract is normal in size. Calcified mitral annulus. Heart size and pulmonary vasculature normal. Aortic calcification. Calcified right hilar nod es. Soft tissue marker in the right breast. Few tiny surgical clips projecti ng over the upper abdomen. Chest otherwise negative. Narrative 06/14/2021 9:13 AM CDT EXAM: ??INTERPRETATION OF OUTSIDE DX CHEST COMPARISON: ??Chest CT 06/13/2016 FINDINGS: ??Outside chest x-ray PA and l ateral exam dated 06/03/2021. Procedure Note Rylan Blanton M.D. - 06/14/2021Fo rmatting of this note might be different from the original. EXAM: INTERPRETATION OF OUTSIDE DX CHEST COMPARISON: Chest CT 06/13/2016 FINDINGS: Outside chest x-ray PA and lat eral exam dated 06/03/2021. IMPRESSION: No focal pulmonary infiltrate or nodule to correlate with groundglass opacity on outside chest CT of 06/13/2016. Prominence of the left pulmonary artery could be evidence of slight pulmonary artery enlargement from pulmonary valve stenosis or pulmonary venous hypertension. However the pulmonary outf low tract is normal in size. Calcified mitral annulus. Heart size and pulmonary vasculature normal. Aortic calcification. Calcified right hilar nod es. Soft tissue marker in the right breast. Few tiny surgical clips projecti ng over the upper abdomen. Chest otherwise negative. [facility] PROCE DURES documented in this encounter Visit Diagnoses Diagnosis Murmur Aortic Outflow Preoperative Examination Cardiovascular Emphysema (HCC) documented in this encounter
--- OUTSIDE RECORDS SUMMARY | 2022-04-27 02:56 | XMS_ITS | Encounter Summary ---
:1940 Author Organization [facility] Address [address] [place] [address] Care Team Providers Name Role Phone Unavailable Primary Care Provider Unavailable Reason for Visit Reason Comments Patient Education Encounter Details Date Type Department Care Team Description 06/14/2021 Education Division of Pulmonary Langley, Rachelle Corrales M.D. [address] [place] [address] Emphysema (HCC) Medicine in [place], Darlin Mejia RThaoN. [address] [place] [address] [place] [address] [place] [phone] Social History Tobacco Use Types Packs/Day Years [...] or relatives? How often do you attend hoahaoism or Never 2020 restoration services? Do you belong to any clubs or No 06/11/2021 organizations such as hoahaoism groups, unions, fraternal or athletic groups, or [...] place to sleep or slept in a long-term (including now)? Education Answer Date Recorded What is the highest level of school you have completed or 11 th grade 06/11/2021 the highest degree you have received? Sex Assigned at Date Recorded Female 06/11/2021 12:59 PM CDT documented as of this encounter Plan of Treatment Not on filedocumented as of this encounter Visit Diagnoses Diagnosis Emphysema (HCC) documented in this encounter
--- OUTSIDE RECORDS SUMMARY | 2022-04-27 02:56 | XMS_ITS | Encounter Summary ---
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 [facility] Region Procedures Initial Rad Onc Treatment Planning CT Simulation [address] [place] [address] Referral ID Status Reason Start Date Expiration Date Visits Requ ested Visits Authorized [id number] Closed 07/20/2021 07/20/2022 1 1 Encounter Details Date Type Department Care Team Description 08/02/2021 Hospital Encounter Department of Mukesh Stone Neoplasm Radiation Oncology [place] Of Breast Lower in [place], [address] [place], [place] Female Right (HCC) [address] [facility] [address] [place], [place] [phone] (Work) [phone] Social History Tobacco Use Types Packs/Day Years [...] or relatives? How often do you attend adventism or Never 2020 tenriism services? Do you belong to any clubs or No 06/11/2021 organizations such as adventism groups, unions, fraternal or athletic groups, or [...] place to sleep or slept in a care home (including now)? Education Answer Date Recorded What is the highest level of school you have completed or 11 th grade 06/11/2021 the highest degree you have received? Sex Assigned at Date Recorded Female 06/11/2021 12:59 PM CDT documented as of this encounter Medications at Time of Discharge Medication Sig Dispensed Refills Start Date End Date albuterol 90 Inhale 1-2 puffs 18 g [...] (HYGROTON) Daily 0 10/18/2013 25 mg tablet famotidine (PEPCID) 20 mg 0 02/05/2020 [...] tiotropium-olodateroL Inhale 2 puffs once 4 g 06/1404/14/2022 (Stiolto Respimat) daily. 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 Authorized by: Mukesh Stone M.D. Simulation was performed under physician supervision based on physician order in preparation for radiation therapy. Physician was immediately available to provide assistance and direction throughout the procedure. Written consent for treatment was completed or confirmed. The patient was appropriately identified and placed in the treatment position using the necessary immobilization to ensure a reproducible treatment position. Reference jon were placed to facilitate marking of isocenter. Area scanned: Chest Contrast used for the simulation procedure: None Patient position: Head first supine and arms up Custom immobilization: Vac-xiomara Motion management: None Bolus: No CT guidance: Following positioning of the patient, a series of slices was obtained to be utilized intreatment planning. CT images were transferred to the Eclipse treatment planning system, after a reference isocenter was determined and marked. Segmentation and treatment planning will take place priorto treatment delivery. Patient set up and imaging was appropriate and completed without incident. Ammonium Sulfate Operator use:No NG ERECTOR documented in this encounter Plan of Treatment Not on filedocumented as of this encounter Procedures Procedure Name Priority Date/Time Associated Comments Diagnosis INITIAL RAD ONC Routine 08/02/2021 2:03 PM Malignant Neoplasm Results for this TREATMENT PLANNING AWNING ERECTOR Of Breast Lower proced ure are in CT SIMULATION Outer Quadrant the results Female Right (HCC) section. documented in this encounter Results Initial Rad Onc Treatment Planning CT Simulation (08/02/2021 2:03 PM AWNING ERECTOR) Specimen (Source) Anatomical Location Collection Method / Collectio n Time Received Time / Laterality Volume Narrative [facility] - 08/02/2021 2:03 PM AWNING ERECTOR Marga Armenta, RTT ? 08/02/2021 ??2:03 PM Initial Rad Onc Treatment Planning CT Si mulation Date/Time: 08/02/2021 2:03 PM Performed by: Mukesh Stone M.D. Authorized by: Mukesh Stone M.D. Mukesh Stone M.D. 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
--- OUTSIDE RECORDS SUMMARY | 2022-04-27 02:56 | XMS_ITS | Encounter Summary ---
:1940 Author Organization [facility] Address [address], [place] [address] Care Team Providers Name Role Phone Judy Sorensen MD Primary Care Provider Reason for Visit Procedure/Equipment (Routine) - Incomplete Specialty Diagnoses / Procedures Referred By Contact Refer red To Contact Diagnoses Follow up Judy Sorensen MD Procedures [facility] Mammogram Diag Rt W Lala MM Mammogram Diag Rt W Lala [address] [place], [place] [address] Referral ID Status Reason Start Date Expiration Date Visits V isits Requested Authorized [id number] Incomplete 07/21/2017 10/20/2018 1 1 Encounter Details Date Type Department Care Team Description 08/15/2017 Imaging [place] [address] Sidney Sorensen MD Follow up Mammography [address] [place] [address] [place] [address] [phone] Social History Tobacco Use Types Packs/Day Years [...] Name Priority Date/Time Associated Diagnosis Comme nts [facility] MAMMOGRAM DIAG Routine 08/15/2017 11:14 AM Follow up Re sults for this RT W 3D LALA KITCHEN FOOD ASSEMBLER procedure are i n the results section. documented in this encounter Results [facility] US Breast Rt (08/15/2017 11:40 AM KITCHEN FOOD ASSEMBLER) Anatomical Region Laterality Modality Breast Right Ultrasound Specimen (Source) Anatomical Collection Method Collection Time Re ceived Time Location / / Volume Laterality 08/15/2017 11:30 AM KITCHEN FOOD ASSEMBLER Impressions 08/15/2017 11:50 AM KITCHEN FOOD ASSEMBLER IMPRESSION: ACR BI-RADS 2: ??Benign. RECOMMENDATION: Routine yearly mammograp hy. The patient is due for bilateral mammography on or after 02/10/2018. The results and recommendations of this examination will be communicated to the patient by the [facility] and we will attempt to schedule any recommended imaging follow up with the patient. Narrative 08/15/2017 11:50 AM KITCHEN FOOD ASSEMBLER EXAMINATION: Right breast tomosynthesis and ultrasound. HISTORY: Short interval follow-up of a r ight breast mass. COMPARISON: Mammography and ultrasound , mammography 02/10/2017, 08/18/2015, 04/01/2014. FINDINGS: Right breast tomosynthesis suma ws no suspicious change in the focal well-circumscribed mass at approximately 8:00 position posteriorly. No suspicious correlate seen by ultrasound. ?? Judy Sorensen MD RAD [facility] Mammogram Diag Rt W Lala (08/15/2017 11:14 AM KITCHEN FOOD ASSEMBLER) Anatomical Region Laterality Modality Breast Right Mammography Specimen (Source) Anatomical Collection Method Collection Time Re ceived Time Location / / Volume Laterality 08/15/2017 11:07 AM KITCHEN FOOD ASSEMBLER Impressions 08/15/2017 11:50 AM KITCHEN FOOD ASSEMBLER IMPRESSION: ACR BI-RADS 2: ??Benign. RECOMMENDATION: Routine yearly mammograp hy. The patient is due for bilateral mammography on or after 02/10/2018. The results and recommendations of this examination will be communicated to the patient by the [facility] and we will attempt to schedule any recommended imaging follow up with the patient. Narrative 08/15/2017 11:50 AM KITCHEN FOOD ASSEMBLER EXAMINATION: Right breast tomosynthesis and ultrasound. HISTORY: Short interval follow-up of a r ight breast mass. COMPARISON: Mammography and ultrasound , mammography 02/10/2017, 08/18/2015, 04/01/2014. FINDINGS: Right breast tomosynthesis suma ws no suspicious change in the focal well-circumscribed mass at approximately 8:00 position posteriorly. No suspicious correlate seen by ultrasound. ?? Judy Sorensen MD RAD [facility] documented in this encounter Visit Diagnoses Diagnosis Follow up Follow up documented in this encounter Care Teams Oyster Culler Relationship Specialty Start Date End Date Judy Sorensen MD PCP - General 12/18/10 05/02/18 [address] [place] [address] documented as of this encounter
--- OUTSIDE RECORDS SUMMARY | 2022-04-27 02:56 | XMS_ITS | Encounter Summary ---
:1940 Author Organization [employer] Address [address], [place] [address] Care Team Providers Name Role Phone Needs Pcp, Assignment Primary Care Provider Reason for Visit Procedure/Equipment (Routine) - Incomplete Specialty Diagnoses / Procedures Referred By Contact Refer red To Contact Diagnoses Follow-up examination of abnormal mammogram Alethea Patterson Procedures MM Mammogram Screening Bilat W 3D Lala W CAD YMM Mammogram Diag Bilat W [address]D [address] [place] [address] Referral ID Status Reason Start Date Expiration Date Visits V isits Requested Authorized [id number] Incomplete 05/18/2018 08/17/2019 1 1 Encounter Details Date Type Department Care Team Description 05/30/2018 Imaging [facility] [address] Alethea Patterson w-up examination of Mammography Enma Ward MD abnormal mammogram [address] [facility] [address] [place] [address] [phone] Social History Tobacco Use Types Packs/Day Years [...] Name Priority Date/Time Associated Diagnosis Comme nts MM MAMMOGRAM Routine 05/30/2018 1:38 PM Follow-up Results f or this SCREENING BILAT W CDT examination of procedur e are in 3D LALA W CAD abnormal mammogram the resu lts section. documented in this encounter Results MM Mammogram Screening Bilat W 3D Lala W CAD (05/30/2018 1:38 PM CDT) Anatomical Region Laterality Modality Breast Bilateral Mammography Specimen (Source) Anatomical Location Collection Method / Collectio n Time Received Time / Laterality Volume Impressions 05/30/2018 3:56 PM CDT : ACR BI-RADS Category 1: Negative RECOMMENDATION: Follow Up Imaging in 12 months - Bilateral The results and recommendations of this examination will be communicated to the patient. Narrative 05/30/2018 3:56 PM CDT MM MAMMOGRAM SCREENING BILAT W 3D LALA W CAD performed on 05/30/18 Compared to: 08/15/2017 YMM Mammogram Di ag Rt W Lala, 02/16/2017 YMM Mammogram Diag Rt W Lala, 02/10/2017 MM Mammogram Screening Bilat W CAD, and 08/18/2015 MM Mammogram Screening Bi lat W CAD FINDINGS: Bilateral screening mammogram was performed with the assistance of Computer-Aided Detection and breast t omosynthesis. The breasts have scattered areas of fibroglandular densit y. There is no radiographic evidence of mal ignancy. ?? Alethea Patterson MD RAD [facility] documented in this encounter Visit Diagnoses Diagnosis Follow-up examination of abnormal mammog kendall Abnormal mammogram, unspecified documented in this encounter Care Teams Pile Driver Operator Barge Mounted Relationship Specialty Start Date End Date Needs Pcp, Assignment PCP - General 05/03/18 01/01/19 [place] [address] documented as of this encounter
--- OUTSIDE RECORDS SUMMARY | 2022-04-27 02:56 | XMS_ITS | Encounter Summary ---
:1940 Author Organization [facility] Address [address] [place] [address] Care Team Providers Name Role Phone Unavailable Primary Care Provider Unavailable Reason for Referral Outpatient (Routine) - Closed Specialty Diagnoses / Procedures Referred By Contact Refer red To Contact Radiation Oncology Mukesh Stone M .D. [facility] Region [address] [place] [phone] Referral ID Status Reason Start Date Expiration Date Visits Requ ested Visits Authorized [id number] Closed 07/20/2021 07/20/2022 1 1 Scheduling Instructions Prior to simulation for consent KAY MACHINE OPERATOR Reason for Visit Outpatient (Routine) - Closed Specialty Diagnoses / Procedures Referred By Contact Refer red To Contact Radiation Oncology Mukesh Stone M .D. [facility] [address] [address] Referral ID Status Reason Start Date Expiration Date Visits Requ ested Visits Authorized [id number] Closed 07/20/2021 07/20/2022 1 1 Encounter Details Date Type Department Care Team Description 08/02/2021 Hospital Encounter Department of Mukesh Stone Neoplasm Radiation Oncology [place] [facility] Breast Lower in [address] Female Right (HCC) [address] [phone] (Primary Dx) [place], [place] [phone] (Work) [phone] Social History Tobacco Use Types Packs/Day Years [...] or relatives? How often do you attend yazidism or Never 2020 adventism services? Do you belong to any clubs or No 06/11/2021 organizations such as yazidism groups, unions, fraternal or athletic groups, or [...] place to sleep or slept in a assisted (including now)? Education Answer Date Recorded What is the highest level of school you have completed or 11 th grade 06/11/2021 the highest degree you have received? Sex Assigned at Date Recorded Female 06/11/2021 12:59 PM CDT documented as of this encounter Last Filed Vital Signs Vital Sign Reading Time Taken Comments Blood Pressure 155/56 08/02/2021 12:58 PM MC KAY MACHINE OPERATOR Pulse 69 08/02/2021 12:58 PM MC KAY MACHINE OPERATOR Temperature 36.6 ??C (97.8 ??F) 08/02/2021 12:58 PM MC KAY MACHINE OPERATOR Respiratory Rate - - Oxygen Saturation - - Inhaled Oxygen Concentration - - Weight 48.4 kg (106 lb 11.2 oz) 08/02/2021 12:58 PM MC KAY MACHINE OPERATOR Height - - Body Mass Index 21.26 06/14/2021 7:40 AM CDT documented in this [...] (LIPITOR) 40 Bedtime 0 10/18/2013 mg tablet chlorthalidone (HYGROTON) Daily 0 10/18/2013 25 mg tablet famotidine (PEPCID) 20 mg 0 02/05/2020 tablet carbamide peroxide 5-10 drops. 0 01/02/2015 (DEBROX) 6.5 % otic solution potassium chloride 10 mg po twice a [...] encounter Progress Notes Mukesh Stone M.D. - 08/02/2021 1:00 PM CST SUBJECTIVE REASON FOR VISIT 1. 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 Sol Oliva is an 80 y.o. 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 I saw her in consultation on July 20, 2021. Any today for a CT simulation. Her oncologic history is as follows: 1. April 16, 2021: The patient presented to Dr. Patterson with a chief complaint of a lump in her right breast that she noticed 3 days prior. Physical examination demonstrated in the right breast there was a 1 cm smooth, round lump at the 7 o'clock position, 4 cm from the nipple. No skin changes, no nipple discharge, no axillary, supra, or subclavicular lymphadenopathy. No palpable nodules in the left breast. 2. April 26, 2021: Bilateral diagnostic mammogram demonstrated scattered fibroglandular densities. Oval mass in the right breast lateral aspect posterior depth. Benign calcifications. No adenopathy. Normal left breast mammogram. Ultrasound of the right breast in the area of concern in the lateral aspect of the 9 o'clock position, 7 cm from the nipple demonstrated a hypoechoic, solid mass with internal vascularity and macrolobular margins measuring 1.5 x 0.7 x 1.5 cm. BI-RADS 4. 3. May 03, 2021: Ultrasound-guided core needle biopsy of the indeterminate lesion in the right breast at the 9 o'clock position, 7 cm from the nipple with clip placement was performed. Pathology demonstrated invasive ductal carcinoma with mucinous features, Ant grade 2. Angiolymphatic invasion was absent. Associated DCIS was absent. Estrogen receptor positive (99%). Progesterone receptor positive (79%). HER2 by IHC negative (0). 4. May 13, 2021: Surgery consultation with Dr. Matilde Serrato. Physical examination demonstrated a palpable mass in the right breast at the 9 o'clock position. The mass was not fixed to the skin wall.No palpable axillary adenopathy. Surgical options were discussed and the patient was most interested in lumpectomy. She was not interested in radiation. The patient will proceed with pulmonary consult prior to surgery. 5. June 03, 2021: Medical Oncology consultation with Joyce Walhs???VIC Stephens who discussed that since the patient needs to be surgically optimized, they discussed therapy in the neoadjuvant setting. Plan to start anastrozole 1 mg by mouth daily. 6. June 14, 2021: Pulmonary consultation with Dr. Demarcus Langley where the patient had moderate obstruction with bronchodilator response by forced vital capacity. She was started on a long-acting LAMA/LABA and albuterol as needed. 7. July 01, 2021: Right breast lumpectomy and re-excision of the anterior margin was performed byDr. Serrato. In accordance with NCCN guidelines, they elected to forego sentinel node mapping. Pathology of the right breast demonstrated invasive mucinous carcinoma, Ant grade 2, measuring 1.5 cm. DCIS or LCIS were not identified. Lymphovascular invasion was not identified. After re-excision theanterior margin, invasive carcinoma was located 2 mm from the closest posterior and lateral margins.Estrogen receptor positive (99%). Progesterone receptor positive (79%). HER2 by IHC negative (0). pT1c pNX 8. July 20, 2021: Consultation with me. Recommended whole breast adjuvant radiotherapy without a boost. INTERVAL HISTORY The patient reports that she is feeling well. She denies any breast pain or discomfort. Her incisionis now well healed, and her arms are fully mobile. She has maintained her abstinence from smoking. Her ECOG performance status is 1. REVIEW OF SYSTEMS Review of systems was negative except as documented above. PATIENT REPORTED SYMPTOM SCREEN FATIGUE (Scale: 0 = no fatigue; 10 = worst fatigue you can imagine): 0 PAIN (Scale: 0 = no pain; 10 = worst pain you can imagine): 0 OVERALL QUALITY OF LIFE (Scale: 0 = as bad as can be; 10 = as good as can be): 8-9 OBJECTIVE BP 155/56 (BP Location: Right arm, Patient Position: Sitting, Cuff Size: Small) Pulse 69 Temp 36.6 ??C (Temporal) Wt 48.4 kg BMI 21.26 kg/m?? PHYSICAL EXAM General: Patient is awake, alert, and oriented to person, place, and time. No apparent distress. Sheis here today with her , He. ASSESSMENT / PLAN 1. Stage IA (pT1c, cN0, cM0, G2, ER+, OR+, HER2-) invasive mucinous carcinoma of the upper-outer quadrant of the right breast, status post neoadjuvant Arimidex initiated on June 03, 2021 followed by margin negative resection on July 01, 2021 2. COPD 3. Nicotine dependence with smoking cessation on June 14, 2021 I again had a discussion with the patient and her spouse regarding the risks, benefits, and alternatives of radiotherapy in this setting. I recommend treatment to the whole right breast to a dose of 26Gy in 5 fractions without a boost. I discussed the logistics of treatment in detail. I again congratulated the patient on her smoking cessation and encouraged her to maintain her abstinence from cigarette smoking. Her questions and those of her spouse were answered to their verbalized satisfaction. The patient verbally stated that she would like to proceed with treatment and signed the consent form. She will undergo CT simulation today and we will endeavor to begin treatment on August 16, 2021. The patient and her spouse verbalizedsatisfaction with this plan CONSENT Discussed the risks, benefits, alternatives, and the necessity of other members of the healthcare team participating in the procedure. All questions answered and consent given. I have spent 10 minutes with this patient today with 10 minutes spent in counseling the patient. Signed by: Mukesh Stone M.D. 08/02/2021 1:43 PM MC KAY MACHINE OPERATOR Radiation Oncology [facility] [address] [place], [place] [id number] KAY MACHINE OPERATOR documented in this encounter Miscellaneous Notes Addendum Note - Mukesh Stone M.D. - 08/02/2021 1:00 PM MC KAY MACHINE OPERATOR Encounter addended by: Mukesh Stone M.D. on: 08/05/2021 6:42 PM Actions taken: Flowsheet accepted KAY MACHINE OPERATOR documented in this encounter Plan of Treatment Scheduled Referrals Name Type Priority Associated Order Schedule Diagnoses Radiation Oncology Outpatient Referral Routine On ce for 1 office visit Occurrences sta rting (clinic) 08/02/2021 unti l 08/02/2021 documented as of this encounter Visit Diagnoses Diagnosis Malignant Neoplasm Of Breast Lower Outer Quadrant Female Right (HCC) - Primary documented in this encounter
--- OUTSIDE RECORDS SUMMARY | 2022-04-27 02:56 | XMS_ITS | Encounter Summary ---
:1940 Author Organization [facility] Address [address] [place] [address] Care Team Providers Name Role Phone Needs Pcp, Assignment Primary Care Provider Reason for Visit Reason Comments Refill raNITIdine (ZANTAC) 300 MG t ablet [Pharmacy Med Name: RANITIDINE 300MG] Encounter Details Date Type Department Care Team Description 10/24/2018 Refill [facility] Gwen Sorensen MD Refill (raNITIdine Medicine [address] (ZANTAC) 300 MG tablet [address] [place], [place] [Pharmacy Med Name: [place] [id number] RANITIDINE 300MG]) [phone] (Wo rk) Social History Tobacco Use Types Packs/Day Years Used Date Smoking Tobacco: Every Day Cigarettes 0.5 40 Smokeless Tobacco: Never Comments: Smoking History Packs/day: Alcohol Use Standard Drinks/Week Comments Yes 7 (1 standard drink = 0.6 oz pure alcoho l) Sex Assigned at Date Recorded Not on file documented as of this encounter Nursing Notes Mariel Galvan - 11/02/2018 11:50 AM CST Appointment Letter PRINTED & Sent RATOR MANNEQUIN Crystal Catalan RN - 10/25/2018 10:09 AM CST OFFICE APPOINTMENT NEEDED Please notify patient to schedule an appointment within 30 days. Requested Prescriptions Pending Prescriptions Disp Refills ??? raNITIdine (ZANTAC) 300 MG tablet [Pharmacy Med Name: RANITIDINE 300MG] 90 Tablet 0 Sig: Take 1 Tablet by mouth at bedtime as needed for Heartburn. RATOR MANNEQUIN Interface, Out InterEx Prov Query - 10/24/2018 11:21 AM CST raNITIdine (ZANTAC) 300 MG tablet [Pharmacy Med Name: RANITIDINE 300MG] Medication started: 09/05/2013 Last ordered by VÍCTOR GARCÍA M: 08/30/2017 (420 days ago) QTY: 90, Refills: 3, Sig: take 1 tablet by mouth at bedtime as needed for heartburn. (changed) -> This medication may not have been authorized by the requested provider. -> The requested sig has changed from the last order. -> Refill x 3 months (courtesy refill. overdue for an office visit) -> Calculate quantity and refills manually. They could not be estimated due to missing or unreadable information. Last qualifying visit: 08/30/2017 (with VÍCTOR GARCÍA) Next scheduled visit: None [facility]ered [facility], Reference: [id number], 10/24/2018 11:21:49 AM VITALY, Markos: KHLOE VICTOR REFILL ([id number]) RATOR MANNEQUIN documented in this encounter Plan of Treatment Not on filedocumented as of this encounter Visit Diagnoses Not on filedocumented in this encounter Care Teams Credit Controller Relationship Specialty Start Date End Date Needs Pcp, Assignment PCP - General 05/03/18 01/01/19 [place] [address] documented as of this encounter
--- OUTSIDE RECORDS SUMMARY | 2022-04-27 02:56 | XMS_ITS | Encounter Summary ---
:1940 Author Organization [facility] Address [address] [place] [address] Care Team Providers Name Role Phone Needs Pcp, Assignment Primary Care Provider Reason for Visit Reason Comments Refill atenolol (TENORMIN) 25 MG ta blet [Pharmacy Med Name: ATENOLOL 25MG] Encounter Details Date Type Department Care Team Description 08/16/2018 Refill [facility] Gwen Sorensen MD Refill (atenolol Medicine [address] (TENORMIN) 25 MG tablet [address] [place], [place] [Pharmacy Med Name: [place] [address] ATENOLOL 25MG]) [phone] (Wo rk) Social History Tobacco Use Types Packs/Day Years Used Date Smoking Tobacco: Every Day Cigarettes 0.5 40 Smokeless Tobacco: Never Comments: Smoking History Packs/day: Alcohol Use Standard Drinks/Week Comments Yes 7 (1 standard drink = 0.6 oz pure alcoho l) Sex Assigned at Date Recorded Not on file documented as of this encounter Nursing Notes Edna Levy RN - 08/16/2018 3:08 PM CST OFFICE APPOINTMENT NEEDED Please notify patient to schedule an appointment within 30 days. Requested Prescriptions Signed Prescriptions Disp Refills ??? atenolol (TENORMIN) 25 MG tablet 90 Tablet 0 Sig: TAKE ONE TABLET DAILY Authorizing Provider: DONTE TIPTON Ordering User: EDNA LEVY ND OPERATIONS SUPERVISOR Interface, Out [employer] Prov Query - 08/16/2018 2:04 PM CST atenolol (TENORMIN) 25 MG tablet [Pharmacy Med Name: ATENOLOL 25MG] Medication started: 08/23/2012 Last ordered by VÍCTOR GARCÍA M: 08/30/2017 (351 days ago) QTY: 90, Refills: 3, Sig: take 1 tab by mouth daily. (changed but equivalent) -> Refill x 3 months (until due for an office visit) Last qualifying visit: 08/30/2017 (with VÍCTOR GARCÍA) Next scheduled visit: None SBP: 128 mm Hg on 08/30/2017 DBP: 82 mm Hg on 08/30/2017 Powered by [employer], Reference: [id number], 08/16/2018 2:04:12 PM GROUND OPERATIONS SUPERVISOR, Pool: KHLOE FP REFILL ([id number]) ND OPERATIONS SUPERVISOR documented in this encounter Plan of Treatment Not on filedocumented as of this encounter Visit Diagnoses Not on filedocumented in this encounter Care Teams Microbiology Soil Scientist Relationship Specialty Start Date End Date Needs Pcp, Assignment PCP - General 05/03/18 01/01/19 [place] [address] documented as of this encounter
--- OUTSIDE RECORDS SUMMARY | 2022-04-27 02:56 | XMS_ITS | Encounter Summary ---
:1940 Author Organization [facility] Address [address] [place] [address] Care Team Providers Name Role Phone Judy Sorensen MD Primary Care Provider Encounter Details Date Type Department Care Team Description 06/12/2017 Lab Visit [facility] Hypokalemia [address] [place] [address] Social History Tobacco Use Types [...] Name Priority Date/Time Associated Diagnosis Comme nts POTASSIUM Routine 06/12/2017 9:11 AM Hypokalemia Results f or this CDT procedure are i n the results section . documented in this encounter Results Potassium (06/12/2017 9:11 AM CDT) athologist Signature Potassium 3.9 3.5 - 5.2 PN SOFT mmol/L Specimen Anatomical Collection Method Collection Time Receive d Time (Source) Location / / Volume Laterality 06/12/2017 9:11 AM 201 7 9:11 CDT AM CDT Narrative PN SOFT - 06/12/2017 9:34 AM CDT Performed at [facility], [address] [place] [address] CLIA number [id number] Lenora Schroeder MD LAB_1 Performing Organization Address City/State/ZIP Code Phon e Number PN SOFT [address] [place] [address] documented in this encounter Visit Diagnoses Diagnosis Hypokalemia Hypopotassemia documented in this encounter Care Teams Manager Mechanical Maintenance Relationship Specialty Start Date End Date Judy Sorensen MD PCP - General 12/18/10 05/02/18 [address] [place] [address] documented as of this encounter
--- OUTSIDE RECORDS SUMMARY | 2022-04-27 02:56 | XMS_ITS | Encounter Summary ---
:1940 Author Organization [facility] Address [address] [place] [address] Care Team Providers Name Role Phone Unavailable Primary Care Provider Unavailable Reason for Visit Reason Comments Release of Information Encounter Details Date Type Department Care Team Description 06/16/2021 Clinical Communication Division of Demarcus Langley Rel ease of Pulmonary Medicine [place] Information in [address] [place] [id number] [place], [place] [phone] (Work) [phone] Social History Tobacco Use Types Packs/Day Years [...] do you attend yazidi or Never 2020 mormonism services? Do you belong to any clubs [...] documented as of this encounter Miscellaneous Notes Telephone Encounter - Terri Aden - 06/16/2021 10:13 AM CDT I have faxed the [place] Carotid Bilateral order to [facility] ( , ). Thank you, Terri, Pulmonary Med. Admin. Asst. documented in this encounter Plan of Treatment Not on filedocumented as of this encounter Visit Diagnoses Not on filedocumented in this encounter
--- OUTSIDE RECORDS SUMMARY | 2022-04-27 02:56 | XMS_ITS | Encounter Summary ---
:1940 Author Organization [facility] Address [address] [place] [address] Care Team Providers Name Role Phone Unavailable Primary Care Provider Unavailable Reason for Visit Reason Comments Communication Outside films/COPD Clinic Encounter Details Date Type Department Care Team Description 06/01/2021 Clinical Division of Demarcus Langley, Communication Communication Pulmonary Medicine [place] (Outside films/COPD in [address]) [place], [place] [address] [facility] [address] [place], [place] [phone] (Work) [phone] Social History Tobacco Use Types Packs/Day Years Used Date Smoking Tobacco: Never Assessed Alcohol Habits Answer Date Recorded How often [...] or relatives? How often do you attend scientologist or Never 2020 orthodoxy services? Do you belong to any clubs or No 06/11/2021 organizations such as scientologist groups, unions, fraternal or athletic groups, or [...] or slept in a fci (including now)? Sex Assigned at Date Recorded Female 06/11/2021 12:59 PM CDT documented as of this encounter Miscellaneous Notes Telephone Encounter - Kenya Barksdale - 06/03/2021 2:07 PM CDT Chest x-ray done on 06/03/2021 has now been pushed and is in [facility]. Telephone Encounter - Kenya Barksdale - 06/02/2021 7:29 AM CDT The films from 2014 and 2015 are now in [facility]. Telephone Encounter - Kenya Barksdale - 06/01/2021 2:16 PM CDT Called the patient and she will be having a chest x-ray done on and will have it sent to usfor her appointment on 06/14/2021. Telephone Encounter - Kenya Barksdale - 06/01/2021 1:33 PM CDT Called [facility] at [phone] requesting films from 2015 and was asked to fax a request to [phone] and they would be pushing the films to us for an appointment on 06/14/2021. documented in this encounter Plan of Treatment Not on filedocumented as of this encounter Visit Diagnoses Not on filedocumented in this encounter
--- OUTSIDE RECORDS SUMMARY | 2022-04-27 02:56 | XMS_ITS | Encounter Summary ---
:1940 Author Organization [facility] Address [address] [place] [id number] Care Team Providers Name Role Phone Unavailable Primary Care Provider Unavailable Reason for Referral Outpatient (Routine) - Closed Specialty Diagnoses / Procedures Referred By Contact Refer red To Contact Demarcus Langley M.D. [facility] [address] [place] [address] [phone] Referral ID Status Reason Start Date Expiration Date Visits Requ ested Visits Authorized [id number] Closed 06/14/2021 06/14/2022 1 1 Specialty Diagnoses / Procedures Referred By Contact Refer red To Contact Demarcus Langley M.D. [facility] [address] [place] [address] [phone] Referral ID Status Reason Start Date Expiration Date Visits Requ ested Visits Authorized utpatient (Routine) - Closed Specialty Diagnoses / Procedures Referred By Contact Refer red To Contact Diagnoses Preoperative Examination Cardiovascular Demarcus Langley M.D. [facility] Procedures ECG 12 Lead [address] [place] [address] [phone] Referral ID Status Reason Start Date Expiration Date Visits Requ ested Visits Authorized [id number] Closed 06/14/2021 06/14/2022 1 1 utpatient (Routine) - Closed Specialty Diagnoses / Procedures Referred By Contact Refer red To Contact Diagnoses Murmur Aortic Outflow Demarcus Langley M.D. [place] [facility] Procedures Echo Transthoracic (TTE) [address] [place] [address] Referral ID Status Reason Start Date Expiration Date Visits Requ ested Visits Authorized [id number] Closed 06/14/2021 06/14/2022 1 1 Reason for Visit Appointment Request (Routine) - Closed Specialty Diagnoses / Procedures Referred By Contact Refer red To Contact Pulmonary Medicine Diagnoses Chronic Obstructive Pulmonary Disease (HCC) Referral ID Status Reason Start Date Expiration Date Visits Requ ested Visits Authorized [id number] Closed 05/26/2021 05/26/2022 1 1 Encounter Details Date Type Department Care Team Description 06/14/2021 Comprehensive Visit Division of Demarcus Langley [place] (Primary Dx); Pulmonary Medicine [place] Chronic Obstructive Pulmonary Disease (H CC); in [place], [facility] [address]st [facility] Emphysema (HCC); [place], [place] Preoperative Examination Car diovascular; [address] [facility] [id number] Murmur Aortic Outflow [place], [place] [phone] [id number] (Work) [phone] Social History Tobacco Use Types Packs/Day Years [...] or relatives? How often do you attend congregation or Never 2020 protestant services? Do you belong to any clubs or No 06/11/2021 organizations such as congregation groups, unions, fraternal or athletic groups, or [...] Sign Reading Time Taken Comments Blood Pressure 138/78 06/14/2021 7:40 AM CDT Pulse 90 06/14/2021 7:40 AM CDT Temperature 36.3 ??C (97.3 ??F) 06/14/2021 7:40 AM CDT Respiratory Rate - - Oxygen Saturation 88% 06/14/2021 7:40 AM CDT Inhaled Oxygen Concentration - - Weight 45.7 kg (100 lb 12 oz) 06/14/2021 7:40 AM CDT Height 150.9 cm (4' 11.41) 06/14/2021 7:40 AM CDT Body Mass Index 20.07 06/14/2021 7:40 AM CDT documented in this encounter Patient Instructions Patient InstructionsDemarcus Langley M.D. - 06/14/2021 8:00 AM CDT #1 Chronic Obstructive Pulmonary Disease (HCC) Patient has moderate obstruction with bronchodilator response by forced vital capacity. Patient will be started on a long-acting LAMA/LABA and p.r.n. albuterol Patient will undergo nurse education on preoperative preparation for COPD which will include mucus mobilization and inhaler techniques. #2 Emphysema (HCC) ?? #3 Preoperative Examination The patient is to stop smoking to reduced the post-operative risk of pneumonia. ?? #4 Bruit Neck Workup is necessary to assess severity of flow impairment. ?? #5 Murmur Aortic Outflow An echocardiogram has been ordered to exclude severe aortic stenosis documented in this encounter Consult Notes Demarcus Langley M.D. - 06/14/2021 8:00 AM CDT SUBJECTIVE CHIEF COMPLAINT / REASON FOR CONSULT Preoperative clearance of COPD for possible breast cancer surgery HISTORY OF PRESENT ILLNESS Sol Oliva is a 80 y.o. female with 60 pack year smoking history still smoking referredby & Yvette. The reason for the request is for the assessment and management of preoperative clearance of COPD. Her primary care is with the [facility] system which is a non [facility] electronic medical records. #1 COPD #2 Right neck bruit and an even pulse volume on the radial arteries #3 Active nicotine dependency #4 Aortic murmur #5 Breast cancer Pulmonary function test performed 06/08/2021: Pre bronchodilator Spirometry: ??Post bronchodilator Spirometry: FEV1/FVC: 42 % ?FEV1/FVC: 33 % FEV1 0.42 L (25 %) ?FEV1 0.52 L (23 % change from Pre) FVC 1.01 L (46 %) ?FVC 1.57 L (55 % change from Pre) SVC 1.32 L (58 %) TLC 5.44 L (122 %) RV 4.11 L (187 %) RV/TLC 76 % DLCO unc 8.97 ml/min/mmHg (54 %) Patient had a chest x-ray performed. It showed air trapping with flattening of the diaphragm, retrosternal air, and atherosclerotic changes of the aortic arch. No focal pulmonary infiltrate or nodule to correlate with groundglass opacity on outside chest CT of 06/13/2016. ?? Prominence of the left pulmonary artery could be evidence of slight pulmonary artery enlargement from pulmonary valve stenosis or pulmonary venous hypertension. However the pulmonary outflow tract is normal in size. Calcified mitral annulus. Heart size and pulmonary vasculature normal. Aortic calcification. Calcified right hilar nodes. Soft tissue marker in the right breast. Few tiny surgical clips projecting over the upper abdomen. Chest otherwise negative. CT scan in 2016 show a ground-glass opacity in the right upper posterior lung field. There are also extensive emphysematous changes. It was unclear why the patient was referred until she and her explained me recent breast cancer diagnosis and that they were sent here for evaluation before the surgeon can decide whether or not surgery will be offered. This is therefore a preoperative assessment. The following portions of the patient's history were reviewed and updated as appropriate: allergies,current medications, family history, medical history, social history, surgical history and problem list. CURRENT MEDICATIONS Current Outpatient Medications: ??? anastrozole (ARIMIDEX) 1 mg tablet, Take 1 mg by mouth daily. Swallow whole with a drink of water., Disp: , Rfl: ??? aspirin [address] tablet, Take 1 tablet by mouth every other day., Disp: , Rfl: ??? atenoloL (TENORMIN) 25 mg tablet, Take 1 tablet by mouth daily., Disp: , Rfl: ??? atorvastatin (LIPITOR) 40 mg tablet, Bedtime, Disp: , Rfl: ??? carbamide peroxide (DEBROX) 6.5 % otic solution, 5-10 drops., Disp: , Rfl: ??? chlorthalidone (HYGROTON) 25 mg tablet, Daily, Disp: , Rfl: ??? famotidine (PEPCID) 20 mg tablet, , Disp: , Rfl: ??? potassium chloride (KLOR-CON SPRINKLE) 10 mEq ER sprinkle capsule, 10 mg po twice a week, Disp: , Rfl: ??? simvastatin (ZOCOR) 80 mg tablet, Take 1 tablet by mouth at bedtime., Disp: , Rfl: ??? UNABLE TO FIND, Take 300 mg by mouth daily as needed. raNITIdine (ZANTAC) 300 MG tablet, Disp: ,Rfl: ??? albuterol 90 mcg/actuation inhaler, Inhale 1-2 puffs every 4 (four) hours as needed for wheezingor shortness of breath., Disp: 18 g, Rfl: 3 ??? tiotropium-olodateroL (Stiolto Respimat) 2.5-2.5 mcg/actuation inhaler, Inhale 2 puffs once daily., Disp: 4 g, Rfl: 11 OBJECTIVE VITAL SIGNS BP 138/78 (BP Location: Right arm, Patient Position: Sitting, Cuff Size: Regular) Pulse 90 Temp 36.3 ??C (Tympanic) Ht 150.9 cm Wt 45.7 kg SpO2 (!) 88% BMI 20.07 kg/m?? PHYSICAL EXAMINATION Vitals reviewed. Constitutional Comments: Asthenic in habitus HENT Head: Normocephalic. Neck Vascular: Carotid bruit present. Comments: Right neck has the bruit Cardiovascular Rate and Rhythm: Normal rate and regular rhythm. Heart sounds: Murmur heard. Comments: Frequent PVC Pulmonary Effort: Pulmonary effort is normal. Breath sounds: Normal breath sounds. Abdominal General: Abdomen is flat. Comments: No abdominal bruit Neurological Mental Status: She is alert. Psychiatric Mood and Affect: Mood normal. Behavior: Behavior normal. Thought Content: Thought content normal. Judgment: Judgment normal. ASSESSMENT / PLAN #1 Chronic Obstructive Pulmonary Disease (HCC) Patient has moderate obstruction with bronchodilator response by forced vital capacity. Patient will be started on a long-acting LAMA/LABA and p.r.n. albuterol Patient will undergo nurse education on preoperative preparation for COPD which will include mucus mobilization and inhaler techniques. #2 Emphysema (HCC) #3 Preoperative Examination The patient is to stop smoking to reduced the post-operative risk of pneumonia. #4 Bruit Neck Workup is necessary to assess severity of flow impairment. #5 Murmur Aortic Outflow An echocardiogram has been ordered to exclude severe aortic stenosis Orders Placed This Encounter Procedures ??? US Carotid Bilateral ??? Interpretation of Outside DX Chest ??? CBC with Differential, Blood ??? Basic Metabolic Panel ??? Bicarbonate ??? Pulmonary - Pre op respiratory education (clinic) ??? NonF2F phone visit ??? ECG 12 Lead ??? Echo Transthoracic (TTE) Orders Placed This Encounter Medications ??? tiotropium-olodateroL (Stiolto Respimat) 2.5-2.5 mcg/actuation inhaler Sig: Inhale 2 puffs once daily. Dispense: 4 g Refill: 11 ??? albuterol 90 mcg/actuation inhaler Sig: Inhale 1-2 puffs every 4 (four) hours as needed for wheezing or shortness of breath. Dispense: 18 g Refill: 3 The digital images and laboratory results including lung function studies and radiological images were displayed and discussed with the patient in the context of the evaluation. A total time of 60 minutes was spent today with the patient with >50% of the time spent in counseling and coordination of care. The total time does not include any of the procedure time or history, exam or other elements relating to the procedure. We discussed the risks and benefits of the recommendations offered by me today including the rationale for those recommendations. There were no perceived barriers to communication and patient verbalized understanding of our discussion. All questions were answered to the patient's satisfaction. We encou rage the patient to use the patient online portal to review discussion. Please bring it to my attention if there are any discrepancies noted in the clinical note. Your primary care provider can also access my note and the reports on [facility] Everywhere. Discontinued Medications: There are no discontinued medications. Medications ordered: Orders Placed This Encounter Medications ??? tiotropium-olodateroL (Stiolto Respimat) 2.5-2.5 mcg/actuation inhaler Sig: Inhale 2 puffs once daily. Dispense: 4 g Refill: 11 ??? albuterol 90 mcg/actuation inhaler Sig: Inhale 1-2 puffs every 4 (four) hours as needed for wheezing or shortness of breath. Dispense: 18 g Refill: 3 documented in this encounter Plan of Treatment Scheduled Referrals Name Type Priority Associated Order Schedule Diagnoses Pulmonary - Pre op Outpatient Referral Routine Emphysema (HCC) Expected: respiratory 06/14/2021 education (clinic) (Approxim ate), Expires: 2023 NonF2F phone visit Outpatient Referral Routine 1 Occurrences starting 2020 until 4 documented as of this encounter Results (TTE) 2D ECHO DOPPLER COLOR (06/14/2021 3:58 PM CDT) [facility] Method Time Signature Ejection Fraction 66 MC CV EIMS LV Mass Index 75 MC CV EIMS LV End-Diastolic 45 MC CV EIMS Diameter LV End-Systolic 28 MC CV EIMS Diameter LV End-Diastolic 92 MC CV EIMS Volume LV End-Systolic 31 MC CV EIMS Volume MV e' Velocity 0.04 MC CV EIMS Medial MV e' Velocity 0.05 MC CV EIMS Lateral Left ventricular 47 MC CV EIMS stroke volume index Cardiac Output 4.63 MC CV EIMS Cardiac Index 3.36 MC CV EIMS LV Interventricular 8 MC CV EIMS Septal Wall Thickness LV Posterior Wall 7 MC CV EIMS Thickness LV Relative Wall 31 MC CV EIMS Thickness RV 4-Chamber Basal 39 MC CV EIMS Diameter RV 4-Chamber Mid 27 MC CV EIMS Diameter RV 4-Chamber Length 66 MC CV EIMS Tricuspid Annular S? 0.15 MC CV EIMS RA Pressure 5 MC CV EIMS AV mean gradient 15 MC CV EIMS Aortic valve area 1.03 MC CV EIMS Aortic Valve Area 0.75 MC CV EIMS Index Aortic Valve 0.36 MC CV EIMS Dimensionless Index MV mean gradient 4 MC CV EIMS LA Volume Index 36 MC CV EIMS Anatomical Region Laterality Modality Echocardiography Specimen (Source) Anatomical Collection Method Collection Time Re ceived Time Location / / Volume Laterality 06/14/2021 2:10 PM CDT Impressions 06/14/2021 4:01 PM CDT LEFT VENTRICLE: ??Normal left ventricular chamber size. ??Normal left ventricular wall thickness. Calculated 2-D biplane volumetric left ventricular ejection fraction 66 %. ??Left ventricular stroke volume index 47 ml/m^2. ??No martina onal wall motion abnormalities. ??Indeterminate left ventricular diastolic function. ??RIGHT VENTRICLE: ??Normal right ventricular chamber size. Normal right ventricular systolic functi on. ??Unable to detect peak tricuspid regurgitation velocity for pulmonary artery systolic p ressure calculation. ??ATRIA: ??Mildly enlarged left atrial size. ??Left atrial volume index 36 ml/m^2. ??Normal right atrial size by visual estimate. CARDIAC VALVES: ??Indeterminate number of cusps of the aortic valve. ??Calcified aortic valve. Moderate aortic valve stenosis. ??Aortic valve systolic mean Doppler gradient 15 mmHg. ??Indexed aortic valve area by Doppler 0.75 cm? ??/m? ??. ??Trivial aortic valve regurgitation. ??Moderately calcified mitral annulus. ??Mitral valve diastolic mean Doppler gradient 4 mmHg (heart rate 70 BPM). ??Mildly thickened mitral valve. ? ?Trivial mitral valve regurgitation. ??Normal pulmonary valve. ??Normal pulmonary valve systolic velocities. ??Trivial pulmonary valve regurgitation. Normal tricuspid valve. ??Trivial tricus pid valve regurgitation. ??OTHER ECHO FINDINGS: ??Normal inferior vena cava size with normal insp iratory collapse (>50%). ??Ascending aorta not well visualized. ??Abdominal aortic aneurysm . ??Normal abdominal aorta Doppler flow pattern. ??No atrial level shunt by color flow imaging . ??No intracardiac mass or thrombus, but the left atrial appendage cannot be visualized ad equately with transthoracic echo to exclude thrombus in this location. ??No pericardial effusion . For the complete report, see the [employer] Documents. Narrative 06/14/2021 4:01 PM CDT For the complete report, see the [employer] Documents. Final Impressions 1. Normal left ventricular chamber size, no regional wall motion abnormalities, calculated 2-D biplane volumetric ejection fraction 66 %. 2. Moderate aortic valve stenosis, systo lic mean Doppler gradient 15 mmHg, Indexed aortic valve area by Doppler 0.75 cm? ??/m? ??. 3. Normal right ventricular chamber size , normal systolic function, unable to detect peak tricuspid regurgitation velocity for pul monary artery systolic pressure calculation. 4. Abdominal aortic aneurysm ??(small) j ust above the bifurcation there is a discrete 3 cm wide infra-renal abdominal aortic ??aneurysm. 5. No pericardial effusion. 6. In the absence of a change in clinica l status, consensus guidelines recommend a repeat transthoracic echocardiogram in 1-2 year s to reevaluate the aortic valve stenosis. Procedure Note Laron Sow M.D., Ph.D. - 06/14/2021 For the complete report, see the [employer] Documents. Final Impressions 1. Normal left ventricular chamber size, no regional wall motion abnormalities, calculated 2-D biplane volumetric ejection fraction 66 %. 2. Moderate aortic valve stenosis, systo lic mean Doppler gradient 15 mmHg, Indexed aortic valve area by Doppler 0.75 cm? ??/m? ??. 3. Normal right ventricular chamber size , normal systolic function, unable to detect peak tricuspid regurgitation velocity for pul monary artery systolic pressure calculation. 4. Abdominal aortic aneurysm (small) jus t above the bifurcation there is a discrete 3 cm wide infra-renal abdominal aortic aneurysm. 5. No pericardial effusion. 6. In the absence of a change in clinica l status, consensus guidelines recommend a repeat transthoracic echocardiogram in 1-2 year s to reevaluate the aortic valve stenosis. Findings LEFT VENTRICLE: Normal left ventricular chamber size. Normal left ventricular wall thickness. Calculated 2-D biplane volumetric left ventricular ejection fraction 66 %. Left ventricular stroke volume index 47 ml/m^2. No region al wall motion abnormalities. Indeterminate left ventricular diastolic function. RIGHT VE NTRICLE: Normal right ventricular chamber size. Normal right ventricular systolic functi on. Unable to detect peak tricuspid regurgitation velocity for pulmonary artery systolic p ressure calculation. ATRIA: Mildly enlarged left atrial size. Left atrial volume index 36 ml/m^2. Normal right atrial size by visual estimate. CARDIAC VALVES: Indeterminate number of cusps of the aortic valve. Calcified aortic valve. Moderate aortic valve stenosis. Aortic v alve systolic mean Doppler gradient 15 mmHg. Indexed aortic valve area by Doppler 0.75 cm? ??/m? ??. Trivial aortic valve regurgitation. Moderately calcified mitral annulus. Mitral valve d iastolic mean Doppler gradient 4 mmHg (heart rate 70 BPM). Mildly thickened mitral valve. Tri vial mitral valve regurgitation. Normal pulmonary valve. Normal pulmonary valve systolic v elocities. Trivial pulmonary valve regurgitation. Normal tricuspid valve. Trivial tricuspi d valve regurgitation. OTHER ECHO FINDINGS: Normal inferior vena cava size with normal insp iratory collapse (>50%). Ascending aorta not well visualized. Abdominal aortic aneurysm . Normal abdominal aorta Doppler flow pattern. No atrial level shunt by color flow imaging . No intracardiac mass or thrombus, but the left atrial appendage cannot be visualized ad equately with transthoracic echo to exclude thrombus in this location. No pericardial effusion. For the complete report, see the [facility] Documents. Demarcus Langley M.D. CV ECHO PROCEDURES ECG 12 Lead (06/14/2021 12:43 PM CDT) P athologist Signature Ventricular Rate 81 BPM MUSE ECG/Min IL Interval 172 ms MUSE QRSD Interval 86 ms MUSE QT Interval 408 ms MUSE QTC Interval 474 ms MUSE P [place] 85 degrees MUSE R [place] 80 degrees MUSE T Wave [place] 48 degrees MUSE Specimen Anatomical Collection Method Collection Time Receive d Time (Source) Location / / Volume Laterality 06/14/2021 12:43 06/14/2021 PM CDT 12:54 PM CDT Impressions MUSE - 06/14/2021 12:54 PM CDT Normal sinus rhythm Premature ventricular complexes Minimal voltage criteria for LVH, may be normal variant Prolonged QT No previous ECGs available Reviewed by NORMA Cochran Narrative This result has an attachment that is no t available. Procedure Note Clarke Chavira Jr., M.D. - 06/14/2021For matting of this note might be different from the original. IMPRESSION: Normal sinus rhythm Premature ventricular complexes Minimal voltage criteria for LVH, may be normal variant Prolonged QT No previous ECGs available Reviewed by NORMA Cochran Demarcus Langley M.D. ECG ORDERABLES Performing Organization Address City/State/ZIP Code Phon e Number MUSE MUSE NA (ABNORMAL) Basic Metabolic Panel (06/14/2021 10:28 AM CDT) P athologist Signature Potassium, S 4.8 3.6 - 5.2 06/14/2021 [place] mmol/L 11:57 AM CDT Sodium, S 141 135 - 145 06/14/2021 [place] mmol/L 11:57 AM CDT Chloride, S 95 (L) 98 - 107 06/14/2021 [place] mmol/L 11:57 AM CDT Bicarbonate, S 34 (H) 22 - 29 06/14/2021 [facility] mmol/L 11:57 AM CDT Anion Gap 12 7 - 15 06/14/2021 DTL 11:57 AM CDT BUN (Blood 23 (H) 6 - 21 06/14/2021 DTL Urea mg/dL 11:57 AM CDT Nitrogen), S Creatinine, S 1.29 (H) 0.59 - 06/14/2021 DTL 1.04 mg/dL 11:57 AM CDT eGFR-Non 39 (L) >=60 06/14/2021 DTL Black/ mL/min/BSA 11:57 AM CDT Russian Comment: ----ADDITIONAL INFORMATION---- Estimated GFR calculated using the 2009 CKD_EPI creatinine equation. eGFR-Black/ 45 (L) >=60 mL/min/BSA 2020 11:57 AM CDT DTL Comment: ----ADDITIONAL INFORMATION---- Estimated GFR calculated using the 2009 CKD_EPI creatinine equation. Calcium, Total, S 10.0 8.8 - 10.2 mg/dL 06/14/2021 11:5 7 AM CDT DTL Glucose, S 98 70 - 140 mg/dL 06/14/2021 11:57 AM CDT DTL Specimen Anatomical Collection Method Collection Time Receive d Time (Source) Location / / Volume Laterality Blood (Blood, 06/14/2021 10:28 06/14/2021 Venous) AM CDT 11:20 AM CDT Demarcus Langley M.D. LAB BLOOD ADD-ON Performing Organization Address City/State/ZIP Code Phon e Number [facility] - [address] [place], [place] [address] [facility] [place] [address] [facility] [address] (ABNORMAL) CBC with Differential, Blood (06/14/2021 10:28 AM CDT) [facility] gist Method Time Signature Hemoglobin 16.1 (H) 11.6 - 06/14/2021 DTL 15.0 g/dL 11:14 AM CDT Hematocrit 50.5 (H) 35.5 - 06/14/2021 DTL 44.9 % 11:14 AM CDT Erythrocytes 5.59 (H) 3.92 - 06/14/2021 DTL 5.13 11:14 AM CDT x10(12)/L MCV 90.3 78.2 - 06/14/2021 DTL 97.9 fL 11:14 AM CDT RBC Distrib Width 13.8 12.2 - 06/14/2021 DTL 16.1 % 11:14 AM CDT Platelet Count 202 157 - 371 06/14/2021 DTL x10(9)/L 11:14 AM CDT Leukocytes 9.1 3.4 - 9.6 06/14/2021 DTL x10(9)/L 11:14 AM CDT Neutrophils 6.28 1.56 - 06/14/2021 DTL 6.45 11:14 AM CDT x10(9)/L Lymphocytes 2.09 0.95 - 06/14/2021 DTL 3.07 11:14 AM CDT x10(9)/L Monocytes 0.59 0.26 - 06/14/2021 DTL 0.81 11:14 AM CDT x10(9)/L Eosinophils 0.06 0.03 - 06/14/2021 DTL 0.48 11:14 AM CDT x10(9)/L Basophils 0.05 0.01 - 06/14/2021 DTL 0.08 11:14 AM CDT x10(9)/L Specimen Anatomical Collection Method Collection Time Receive d Time (Source) Location / / Volume Laterality Blood (Blood, 06/14/2021 10:28 06/14/2021 Venous) AM CDT 10:50 AM CDT Demarcus Langley M.D. LAB BLOOD ADD-ON Performing Organization Address City/State/ZIP Code Phon e Number [facility] - [address] [place], [place] [address] [facility] [place] [address] [facility] [address] Interpretation of Outside DX Chest (06/14/2021 8:50 [...] otherwise negative. Demarcus [facility] documented in this encounter Visit Diagnoses Diagnosis Bruit Neck - Primary Chronic Obstructive Pulmonary Disease (H CC) Emphysema (HCC) Preoperative Examination Cardiovascular Murmur Aortic Outflow Murmur Aortic Outflow Preoperative Examination Cardiovascular Emphysema (HCC) Murmur Aortic Outflow documented in this encounter
--- OUTSIDE RECORDS SUMMARY | 2022-04-27 02:56 | XMS_ITS | Clinical Summary ---
:1940 Author Organization [facility] Address [address] [place] [address] Care Team Providers Name Role Phone Alethea Patterson MD Primary Care Provider [phone] Source Comments You are receiving this document as you are listed as the primary care provider,follow-up provider, or the patient has been referred to you for consultation.This is in compliance with the Medicare and Medicaid EHR Incentive Program,which states Providers who transition their patient to another setting of careor provider of care or refers their patient to another provider of care shouldprovide summarycare record for each transition of care or referral. [facility] Allergies No known active allergies Medications Medication Sig Dispensed Refills Start Date End Date Status aspirin EC 81 MG Take 1 tablet by 0 10/16/2013 Active enteric coated tablet mouth every other day. Additional Information Patient not taking. Reported on 08/30/2017 carbamide peroxide (AURAPHENE-B) Place 5-10 drops into the 15 mL 0 01/02/2015 Active 6.5 % ear drop solution right ear 2 times daily. Additional Information Patient not taking. Reported on 08/30/2017 chlorthalidone (HYGROTON) 25 Take 1 Tab by mouth 90 Tab 3 1 10/31/2016 Active MG tablet daily. atorvastatin (LIPITOR) 40 MG Take 1 Tab by mouth 90 Tab 3 1 10/31/2016 Active tablet daily. potassium chloride 10 MEQ 10 mg po twice a week 26 Cap 3 Active controlled release capsule atenolol (TENORMIN) 25 MG TAKE ONE TABLET DAILY 90 Tablet 0 Active tablet raNITIdine (ZANTAC) 300 MG Take 1 Tablet by mouth 90 Tablet 0 10/25/2018 Active tablet at bedtime as needed for Heartburn. Active Problems Problem Noted Date Adenomatous polyp 08/31/2017 Overview: Colonoscopy at [facility] 2014, due 2019 Abdominal aortic aneurysm (AAA) without rupture 2015 Overview: Mild 2016, 3.0 cm proximal. Right common iliac 2.4 cm. 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 (1.9 cm left) 2015 Simple chronic bronchitis 05/17/2016 Internal hemorrhoids 02/29/2008 Overview: Hemorrhoids Internal NOS Essential hypertension 12/02/2005 Overview: Annual review, labs. Goal < 140/80 Osteopenia of multiple sites 07/14/2004 Overview: Osteopenia Tobacco use disorder 02/22/2003 Overview: 2017 is contemplating quitting. Esophageal reflux 02/22/2003 Overview: Gastroesophageal Reflux Disease Resolved Problems Problem Noted Date Resolved Date COPD exacerbation 05/17/2016 05/17/2016 Diverticulosis of large intestine 02/29/20082016 Overview: Diverticulosis Colon Benign neoplasm of colon 07/14/2004 08/31/2017 Overview: LW Onset: 2000 ; Polyp Colon Adenomatous Encounter for sterilization 07/05/2004 04/28/2015 Overview: Tubal Ligation Elective Chronic ischemic heart disease 02/22/2003 6 Overview: Ischemic Heart Disease Immunizations Name Administration Dates Next Due Flu Vac (3+ yrs) 07/26/2013, 06/08/2012 Flu Vac Preserv Free (3+yrs) 06/18/2012, 05/25/2011, 009, 07/11/2008, 07/03/2007, 07/09/2006, 07/20/2005, 07/05/2004 Influenza IIV3 (Trivalent) Fluzone 08/30/2017, 05/17/2016, 1 10/06/2014, Highdose, 65+ Yrs (65977) 06/27/2014 Influenza, Unspecified Formulation 07/03/2003, 08/01/2002, 1 10/23/2000, 07/08/1999, 07/16/1998 PCV13 (Prevnar) 08/30/2017 PPSV23 (Pneumovax) 06/27/2014, 09/19/2012, 07/05/2004 TDAP (BOOSTRIX) 09/19/2012 Td 03/10/2010, 12/09/1999 Zoster (Zostavax) 03/05/2009 Family History Medical History Relation Name Comments Heart Disease Mother Thyroid Disorder Mother Cancer, Breast Other niece br ca Cancer Sister 1 Alyssa lung Cancer, Lung Sister 1 Alyssa Heart Attack Sister 1 Alyssa BRCA 1/2 Negative Family History Cancer, Colon Negative Family History Cancer, Endometrial Negative Family History Cancer, Ovary Negative Family History [place] Syndrome Negative Family History Diethylstilbestrol Exposure Negative Family History Li-Fraumeni Syndrome Negative Family History Relation Name Status Comments Father (Age 55) not known Mother (Age 77) Brother (Age 67) b 1947, half s ib Daughter Rosio Alive b 1970 Other niece Alive Sister 1 Alyssa b 1939 Sister 2 Lidia Alive b 1940 Son 1 Kirit Alive b 1958 Son 2 Dimitry Alive b 196 Social History Tobacco Use Types Packs/Day Years Used Date Smoking Tobacco: Every Day Cigarettes 0.5 40 Smokeless Tobacco: Never Comments: Smoking History Packs/day: Alcohol Use Standard Drinks/Week Comments Yes 7 (1 standard drink = 0.6 oz pure alcoho l) Sex Assigned at Date Recorded Not on file Last Filed Vital Signs Vital Sign Reading Time Taken Comments Blood Pressure 128/82 08/30/2017 11:24 AM PHYSICIAN OFFICE ASSISTANT Pulse 68 08/30/2017 11:24 AM PHYSICIAN OFFICE ASSISTANT Temperature 36.2 ??C (97.2 ??F) 01/02/2015 9:58 AM CDT Respiratory Rate 16 01/02/2015 9:58 AM CDT Oxygen Saturation 96% 09/05/2008 1:24 PM PHYSICIAN OFFICE ASSISTANT Inhaled Oxygen Concentration - - Weight 51.3 kg (113 lb) 08/30/2017 11:24 AM PHYSICIAN OFFICE ASSISTANT Height 151.8 cm (4' 11.75) 08/30/2017 11:24 AM PHYSICIAN OFFICE ASSISTANT Body Mass Index 22.25 08/30/2017 11:24 AM PHYSICIAN OFFICE ASSISTANT Plan of Treatment Health Maintenance Due Date Last Done Comments COVID-19 Vaccine (#1) 06/22/1941 Adult Preventive Visit 08/30/2018 08/30/2017 Colonoscopy 11/11/2018 11/11/2013 (Completed), 03/11/2008 Influenza (#1) 2022 07/08/2020, 06/27/2019, 07/19/2018, Additional history exists DTaP/Tdap/Td (2 - Tdap) 09/19/2022 09/19/2012, 09/19/2012 (Completed), 03/10/2010, Additional history exists Dexa Completed 03/29/2010 (Completed) Pneumococcal 65+ Yrs Completed 08/30/2017, 06/27/2014, 09/19/2012, Additional history exists Zoster/Shingles Completed 05/01/2018, 03/01/2018, 03/05/2009 HepA Aged Out No longer eligib le based on patient's age to complete this to pic HepB Aged Out No longer eligib le based on patient's age to complete this to pic Hib Aged Out No longer eligib le based on patient's age to complete this to pic IPV (Polio) Aged Out No longer eligib le based on patient's age to complete this to pic MCV4 Aged Out No longer eligib le based on patient's age to complete this to pic Care Teams Salt Lifter Relationship Specialty Start Date End Date Alethea Patterson MD PCP - General Family Practice 01/02/191999 [place] [address]
--- OUTSIDE RECORDS SUMMARY | 2022-04-27 02:56 | XMS_ITS | Encounter Summary ---
:1940 Author Organization [facility] Address [address] [place] [address] Care Team Providers Name Role Phone Alethea Patterson MD Primary Care Provider [phone] Reason for Visit Reason Comments Refill raNITIdine (ZANTAC) 300 MG t ablet [Pharmacy Med Name: RANITIDINE 300MG] Encounter Details Date Type Department Care Team Description 01/28/2019 Refill [facility] Gwen Sorensen MD Refill (raNITIdine Medicine [address] (ZANTAC) 300 MG tablet [address] [place], [place] [Pharmacy Med Name: [place] [address] RANITIDINE 300MG]) [phone] (Wo rk) Social History Tobacco Use Types Packs/Day Years Used Date Smoking Tobacco: Every Day Cigarettes 0.5 40 Smokeless Tobacco: Never Comments: Smoking History Packs/day: Alcohol Use Standard Drinks/Week Comments Yes 7 (1 standard drink = 0.6 oz pure alcoho l) Sex Assigned at Date Recorded Not on file documented as of this encounter Nursing Notes Gem Brennan - 01/31/2019 1:54 PM CDT Medication Refill - Overdue for Visit Called patient, was: Successful in reaching patient We recently received a refill request for one of your medications. To continue managing your medication refills, your clinician would like to see you for a(n): Patient is due for a(n): office visit Patient no longer receiving care at [facility] Frontline: [facility]P [id number] Deandra Haddad RN - 01/31/2019 9:09 AM CDT Further Assistance Needed on Refill from Sulfur Burner Patient is overdue for Office visit. -> A qualifying visit was not found within the last 2 years. ? Last qualifying visit: None (A recent visit (in Family Practice) was found) ? Next scheduled visit: None ? Please call patient to schedule a Office Visit and document using .REJI. After attempting to schedule patient: Please route to: Alethea Patterson MD Requested Prescriptions Pending Prescriptions Disp Refills ??? raNITIdine (ZANTAC) 300 MG tablet [Pharmacy Med Name: RANITIDINE 300MG] 90 Tablet Sig: TAKE ONE TABLET AT BEDTIME NEEDED FOR HEARTBURN Interface, Out Surescripts Prov Query - 01/28/2019 12:09 PM CDT raNITIdine (ZANTAC) 300 MG tablet [Pharmacy Med Name: RANITIDINE 300MG] Medication started: 09/05/2013 Last ordered by DONTE TIPTON A: 10/25/2018 (95 days ago) QTY: 90, Refills: 0, Sig: take 1 tabletby mouth at bedtime as needed for heartburn. (changed but equivalent) -> This medication may not have been authorized by the requested provider. -> A qualifying visit was not found within the last 2 years. Last qualifying visit: None (A recent visit (in Family Practice) was found) Next scheduled visit: None Powered by [employer], Reference: [id number], 01/28/2019 12:09:45 PM CDT, Pool: GONZALES KALPANA ([id number]) documented in this encounter Plan of Treatment Not on filedocumented as of this encounter Visit Diagnoses Not on filedocumented in this encounter Care Teams Nursing Home Physician Relationship Specialty Start Date End Date Alethea Patterson MD PCP - General Family Practice 01/02/191999 [place] [address] documented as of this encounter
--- OUTSIDE RECORDS SUMMARY | 2022-04-27 02:56 | XMS_ITS | Encounter Summary ---
:1940 Author Organization [facility] Address [address] [place] [address] Care Team Providers Name Role Phone Judy Sorensen MD Primary Care Provider Reason for Visit Reason Onset Date Comments Refill 08/15/2017 chlorthalidone (HYGR OTON) 25 MG tablet; atenolol (TENORMIN) 25 MG tablet; atorvastatin (LIPITOR) 40 MG tablet Encounter Details Date Type Department Care Team Description 08/15/2017 Refill [facility] Gwen Sorensen MD Refill (chlorthalidone Medicine [address] (HYGROTON) 25 MG tablet; [address] [place], [place] atenolol (TENORMIN) [address] [place] [address] MG tablet; atorvastatin [phone] (Wo rk) (LIPITOR) 40 MG tablet) Social History Tobacco Use Types Packs/Day Years Used Date Smoking Tobacco: Every Day Cigarettes 0.5 40 Smokeless Tobacco: Never Comments: Smoking History Packs/day: Alcohol Use Standard Drinks/Week Comments Yes 7 (1 standard drink = 0.6 oz pure alcoho l) Sex Assigned at Date Recorded Not on file documented as of this encounter Nursing Notes Gem Brennan - 08/16/2017 2:19 PM CST Tried to reach patient and line was busy, busy sent postcard advising refilled rx and need appt for further refills OR MECHANICAL DEVELOPMENT ENGINEER Judy Larsen MD - 08/16/2017 12:44 PM CST Fasting labs ordered. Needs visit. OR MECHANICAL DEVELOPMENT ENGINEER Ese Yang RN - 08/16/2017 8:39 AM CST Further assistance needed to complete refill request Reason: Pt overdue for qualifying visit. Next Steps: Review pended order for accuracy. Sign. Route to frontline pool to schedule appt. Requested Prescriptions Pending Prescriptions Disp Refills ??? chlorthalidone (HYGROTON) 25 MG tablet 90 Tab 0 Sig: Take 1 Tab by mouth daily. ??? atenolol (TENORMIN) 25 MG tablet 90 Tab 0 Sig: Take 1 Tab by mouth daily. ??? atorvastatin (LIPITOR) 40 MG tablet 90 Tab 0 Sig: Take 1 Tab by mouth daily. OR MECHANICAL DEVELOPMENT ENGINEER Interface, Out Surescripts Prov Query - 08/15/2017 12:27 PM CST atenolol (TENORMIN) 25 MG tablet Medication started: 08/23/2012 Last ordered by JUDY LARSEN: 05/16/2017 (91 days ago) QTY: 90, Refills: 0, Sig: take 1 tab by mouth daily. (unchanged) -> An office visit is overdue (performed over 15 months ago, required every 12 months). Last qualifying visit: 05/17/2016 (with JUDY LARSEN) Next scheduled visit: None SBP: 130 mm Hg on 05/17/2016 DBP: 66 mm Hg on 05/17/2016 Powered by [employer], Reference: [id number], 08/15/2017 12:27:27 PM SENIOR MECHANICAL DEVELOPMENT ENGINEER, Pool: KHLOE FP REFILL ([id number]) atorvastatin (LIPITOR) 40 MG tablet Medication started: 10/16/2013 Last ordered by JUDY LARSEN: 05/16/2017 (91 days ago) QTY: 90, Refills: 0, Sig: take 1 tab by mouth daily. (unchanged) -> An office visit is overdue (performed over 15 months ago, required every 12 months). Last qualifying visit: 05/17/2016 (with JUDY LARSEN) Next scheduled visit: None Powered by [employer], Reference: [id number], 08/15/2017 12:27:27 PM Markos HAIDER: KHLOE FP REFILL ([id number]) chlorthalidone (HYGROTON) 25 MG tablet Medication started: 09/19/2012 Last ordered by JUDY LARSEN: 05/16/2017 (91 days ago) QTY: 90, Refills: 0, Sig: take 1 tab by mouth daily. (unchanged) -> An office visit is overdue (performed over 15 months ago, required every 12 months). Last qualifying visit: 05/17/2016 (with JUDY LARSEN) Next scheduled visit: None SBP: 130 mm Hg on 05/17/2016 DBP: 66 mm Hg on 05/17/2016 Cr: 0.8 mg/dL on 05/25/2017 Na: 137 mEq/L on 05/25/2017 K: 3.9 mEq/L on 06/12/2017 Powered by [employer], Reference: [id number], 08/15/2017 12:27:27 PM SENIOR MECHANICAL DEVELOPMENT ENGINEER, Pool: LEDBETTER FP REFILL ([id number]) OR MECHANICAL DEVELOPMENT ENGINEER documented in this encounter Plan of Treatment Not on filedocumented as of this encounter Results Lipid Panel and Direct LDL(If Needed) (08/30/2017 10:28 AM SENIOR MECHANICAL DEVELOPMENT ENGINEER) Analysis Performed At Patho logist Time Signature [...] / Volume Laterality 08/30/2017 10:28 08/30/2017 AM SENIOR MECHANICAL DEVELOPMENT ENGINEER 10:28 AM SENIOR MECHANICAL DEVELOPMENT ENGINEER Narrative PN SOFT - 08/30/2017 11:11 AM SENIOR MECHANICAL DEVELOPMENT ENGINEER Performed at [facility], [address] [place] [address] CLIA number [id number] Judy Sorensen MD LAB_1 Performing Organization Address [facility] Phon e Number PN SOFT [address] [place] [address] [phone] (ABNORMAL) Basic Metabolic Panel (08/30/2017 10:28 AM SENIOR MECHANICAL DEVELOPMENT ENGINEER) athologist Signature Creatinine Serum 0.80 0.55 - [...] / Volume Laterality 08/30/2017 10:28 08/30/2017 AM SENIOR MECHANICAL DEVELOPMENT ENGINEER 10:28 AM SENIOR MECHANICAL DEVELOPMENT ENGINEER Narrative PN SOFT - 08/30/2017 11:11 AM SENIOR MECHANICAL DEVELOPMENT ENGINEER Performed at [facility], [address] [place] [address] CLIA number [id number] Judy Sorensen MD LAB_1 Performing Organization Address [facility] Phon e Number PN SOFT [address] [place] [address] [phone] documented in this encounter Visit Diagnoses Diagnosis Essential hypertension (HRC) - Primary Unspecified essential hypertension Abdominal aortic aneurysm (AAA) without rupture (HRC) Essential hypertension (HRC) Unspecified essential hypertension documented in this encounter Care Teams Stand Grinder Relationship Specialty Start Date End Date Judy Sorensen MD PCP - General 12/18/10 05/02/18 [address] [place] [address] documented as of this encounter
--- OUTSIDE RECORDS SUMMARY | 2022-04-27 02:56 | XMS_ITS | Encounter Summary ---
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 [facility] Procedures Prior Auth Rad Tx MS RADTN TX DEL >=1 MEV COMPLEX [address] [place] [address] Referral ID Status Reason Start Date Expiration Date Visits V isits Requested Authorized [id number] Authorized 08/16/2021 07/20/2022 5 5 Encounter Details Date Type Department Care Team Description 08/17/2021 Hospital Encounter Department of Radiation Evon Stone, Oncology in [place] [address] [facility] [address] [place], [place] [id number] [phone] Social History Tobacco Use Types Packs/Day Years [...] do you attend yazidism or Never 2020 anglican services? Do you belong to any clubs [...] place to sleep or slept in a custodial (including now)? Education Answer Date Recorded What [...]
--- OUTSIDE RECORDS SUMMARY | 2022-04-27 02:56 | XMS_ITS | Encounter Summary ---
:1940 Author Organization [facility] Address [address] [place] [address] Care Team Providers Name Role Phone Unavailable Primary Care Provider Unavailable Reason for Referral Outpatient (Routine) - Closed Specialty Diagnoses / Procedures Referred By Contact Refer red To Contact Radiation Oncology [facility]esh [facility] M .D. [facility] Region [address] [place] [phone] Referral ID Status Reason Start Date Expiration Date Visits Requ ested Visits Authorized [id number] Closed 07/20/2021 07/20/2022 1 1 Scheduling Instructions Prior to simulation for consent Radiation Therapy (Routine) - Authorized Specialty Diagnoses / Procedures Referred By Contact Refer red To Contact Diagnoses Malignant Neoplasm Of Breast Lower Outer Quadrant Female Right (HCC) Mukesh Stone M.D. [facility] Procedures Management Visit [address] [place] [phone] Referral ID Status Reason Start Date Expiration Date Visits V isits Requested Authorized [id number] Authorized 07/20/2021 07/20/2022 10 10 Radiation Therapy (Routine) - Authorized Specialty Diagnoses / Procedures Referred By Contact Refer red To Contact Diagnoses Malignant Neoplasm Of Breast Lower Outer Quadrant Female Right (HCC) Mukesh Stone M.D. [facility] Procedures Prior Auth Rad Tx DC RADTN TX DEL >=1 MEV COMPLEX [address] [place] [address] Referral ID Status Reason Start Date Expiration Date Visits V isits Requested Authorized [id number] Authorized 08/16/2021 07/20/2022 5 5 Radiation Therapy (Routine) - Closed Specialty Diagnoses / Procedures Referred By Contact Refer red To Contact Diagnoses Malignant Neoplasm Of Breast Lower Outer Quadrant Female Right (HCC) Mukesh Stone M.D. [facility] Region Procedures Initial Rad Onc Treatment Planning CT Simulation [address] [place], [place] [address] Referral ID Status Reason Start Date Expiration Date Visits Requ ested Visits Authorized [id number] Closed 07/20/2021 07/20/2022 1 1 Reason for Visit Appointment Request (Routine) - Closed Specialty Diagnoses / Procedures Referred By Contact Refer red To Contact Radiation Oncology Diagnoses Malignant Neoplasm Of Breast Female Right (HCC) Matilde Serrato M.D. [address] [place] [address] Referral ID Status Reason Start Date Expiration Date Visits Requ ested Visits Authorized [id number] Closed 07/12/2021 07/12/2022 1 1 Encounter Details Date Type Department Care Team Description 07/20/2021 Hospital Encounter Department of Mukesh Stone Neoplasm Radiation Oncology [place] Of Breast Lower in [place], [facility] [place] [address] [place], [place] Female Right (HCC) [address] [facility] [address] (Primary Dx) [place], [place] [phone] [address] (Work) [phone] Social History Tobacco Use Types Packs/Day Years [...] or relatives? How often do you attend denominational or Never 2020 spiritism services? Do you belong to any clubs or No 06/11/2021 organizations such as denominational groups, unions, fraternal or athletic groups, or [...] place to sleep or slept in a usp (including now)? Education Answer Date Recorded What is the highest level of school you have completed or 11 th grade 06/11/2021 the highest degree you have received? Sex Assigned at Date Recorded Female 06/11/2021 12:59 PM CDT documented as of this encounter Last Filed Vital Signs Vital Sign Reading Time Taken Comments Blood Pressure 155/54 07/20/2021 9:27 AM CDT Pulse 58 07/20/2021 9:27 AM CDT Temperature 36.3 ??C (97.4 ??F) 07/20/2021 9:27 AM CDT Respiratory Rate - - Oxygen Saturation - - Inhaled Oxygen Concentration - - Weight 47.5 kg (104 lb 11.5 oz) 07/20/2021 9:27 AM CDT Height - - Body Mass Index 20.86 06/14/2021 7:40 AM CDT documented in this encounter Medications at Time of Discharge Medication Sig Dispensed Refills Start Date End Date albuterol 90 Inhale 1-2 puffs 18 g 3 06/14/20212021 mcg/actuation inhaler every 4 (four) hours as needed for wheezing or shortness of breath. anastrozole (ARIMIDEX) 1 Take 1 mg by mouth 0 mg tablet daily. Swallow whole with a drink of water. atenoloL (TENORMIN) 25 mg Take 1 tablet by 0 07/20 tablet mouth daily. atorvastatin (LIPITOR) 40 Bedtime 0 10/18/2013 mg tablet carbamide peroxide 5-10 drops. 0 01/02/2015 (DEBROX) 6.5 % otic solution chlorthalidone (HYGROTON) Daily 0 10/18/2013 25 mg tablet famotidine (PEPCID) 20 mg 0 02/05/[address] tablet Take 1 tablet by 0 2013 mouth every other day. potassium chloride 10 mg po twice a [...] mcg/actuation inhaler documented as of this encounter Consult Notes Mukesh Stone M.D. - 07/20/2021 9:30 AM CDT SUBJECTIVE REQUESTING PROVIDER Matilde Serrato M.D. PRIMARY PROVIDER Alethea Patterson M.D. REASON FOR CONSULT 1. 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 Sol Oliva is an 80 y.o. 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 I am asked by Dr. Serrato to evaluate the patient for radiotherapy. Her oncologic history is as follows: 1. [...] demonstrated invasive ductal carcinoma with mucinous features, Athens grade 2. Angiolymphatic invasion was absent. Associated [...] the right breast demonstrated invasive mucinous carcinoma, Athens grade 2, measuring 1.5 cm. DCIS or LCIS were not identified. Lymphovascular invasion was not identified. After re-excision theanterior margin, invasive carcinoma was located 2 mm from the closest posterior and lateral margins.Estrogen receptor positive (99%). Progesterone receptor positive (79%). HER2 by IHC negative (0). pT1c pNX INTERVAL HISTORY The patient reports the lump that she felt was nontender. She is recovering well from her surgery. She denies any current breast pain or discomfort. She also denies any current fever, chills, nausea, vomiting, or increase in her baseline shortness of breath. She has inhalers but does not currently usethem. She denies a history of prior radiation therapy, connective tissue disorders, or inflammatory bowel disease. Her ECOG performance status is 1. REVIEW [...] = as good as can be): 8-9 PAST MEDICAL HISTORY 1. COPD 2. Chronic bronchitis 3. Tobacco dependence 4. Peripheral artery disease 5. Hypertension 6. Gastroesophageal reflux disease 7. Osteoporosis 8. Abdominal aortic aneurysm 9. Dyslipidemia 10. Colonic polyps 11. Diverticulosis 12. Aortic valve stenosis 13. Carotid artery stenosis, bilateral 14. Left vertebral artery proximal stenosis 15. Invasive mucinous carcinoma of the right breast PAST SURGICAL HISTORY 1. Aortobifem bypass 2. Tubal ligation 3. Cataract extraction, bilateral 4. Right breast lumpectomy, 2020 SOCIAL HISTORY She lives in [place], [place]. She is to her spouse, He. She has 3 adult children who live nearby. 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 She has smoked a 0.5 to 1.0 packs of cigarettes a day for 50 years. She has 5 alcoholic drinks per week. FAMILY HISTORY Niece with breast cancer in her 30s. OBJECTIVE BP (!) 155/54 (BP Location: Right arm, Patient Position: Sitting, Cuff Size: Small) Pulse (!) 58 Temp 36.3 ??C (Temporal) Wt 47.5 kg BMI 20.86 kg/m?? PHYSICAL EXAM General: Patient is awake, alert, and oriented to person, place, and time. No apparent distress. Sheis here today with her , He. Exam was chaperoned by DANIELLA Bartholomew. ENT: Pupils equal, round, and reactive to light. Sclera anicteric. Oral cavity inspection reveals moist mucous membranes and no visible lesions. Neck: Supple. Lymph: No palpable cervical, supraclavicular, infraclavicular, or axillary adenopathy. Spine: There is no tenderness to palpation of the spine. Lungs: Clear to auscultation bilaterally. Heart: Regular rate and rhythm. Normal S1 and S2. No murmurs. Abdomen: Soft, non-tender, non-distended. Normal active bowel sounds are present. Extremities: No edema. Breasts: Examined in the sitting and supine positions. The right breast has an everted nipple. Thereis a healing incisional scar in the right lower outer quadrant at the 7 o'clock position with some seroma deep to this but no palpable nodularity. The left breast has an everted nipple with no palpablemasses, no overlying skin changes, and no expressible nipple discharge. DIAGNOSTICS I reviewed the patient's pathology reports and imaging. ASSESSMENT / PLAN 1. Stage IA (pT1c, cN0, cM0, G2, ER+, DC+, HER2-) invasive mucinous carcinoma of the upper-outer quadrant of the right breast, status post neoadjuvant Arimidex initiated on June 03, 2021 followed by margin negative resection on July 01, 2021 2. COPD 3. Nicotine dependence with smoking cessation on June 14, 2021 I had a detailed discussion with the patient and her spouse regarding the risks, benefits, and alternatives of radiotherapy in this setting. I reviewed the NCCN guidelines in formulating my recommendations. I went over these with the patient. I also discussed the CALGB 9343 trial (Norm et al., JCO 2013) in which women with early stage breast cancer who were 70 years of age or older were all treated with lumpectomy and 5 years of tamoxifen and were randomly assigned to receive either whole breast radiotherapy or observation. Adjuvant radiotherapy showed a local control benefit but no survival benefit. Patients who received adjuvant radiotherapy had a 2% recurrence risk at 10 years versus a 10% recurrence risk in the patients who did not receive adjuvant radiotherapy. Hence, adjuvant radiotherapy is optional if the patient is willing to commit to 5 years of anti-estrogen therapy. I am concernedthat she may not be able to maintain a full 5 years of antiestrogen therapy given her osteoporosis. We discussed partial breast radiation; however, because of the patient's petite size, I would be concerned about high-dose her overall breast with such an approach. Hence, I would recommend treatment tothe whole right breast to a dose of 26 Gy in 5 fractions without a boost. I discussed the logistics as well as the acute and chronic side effects of treatment in detail. The acute side effects are common and include breast erythema, swelling, discomfort, and possible peelingof the skin, and fatigue. Long-term side effects could include pulmonary scarring (typically of no cl inical significance), skin changes and texture changes of the breast, possible breast asymmetry, increased risk of rib fracture with significant trauma, lymphedema (<12 % risk), and a very small risk of secondary malignancy (less than 0.2%). I congratulated the patient on her smoking cessation. Encouraged her to maintain her abstinence fromcigarette smoking. After this discussion, I provided the patient with a written summary of my recommendations. Her questions were answered to her verbalized satisfaction. The patient verbally stated that she would like to proceed with treatment. She is only about 2 weeks out from her surgery. I will plan to see her backin [address] simulation and then likely proceed with treatment the week of August 16, 2021.The patient and her spouse verbalized satisfaction with this plan My thanks to Drs. Fuentes and Ms. Bennett for the opportunity to participate in this patient's care. EDUCATION Ready to learn, no apparent learning barriers were identified; learning preferences include listening. Explained diagnosis and treatment plan; patient expressed understanding of the content. I have spent 60 minutes with this patient today with 55 minutes spent in counseling the patient. Signed by: Mukesh Stone M.D. 07/20/2021 6:38 PM CDT Radiation Oncology [facility] [address] [place] [address] documented in this encounter Miscellaneous Notes Addendum Note - Lenora Joiner C.NMayank - 07/20/2021 9:30 AM CDT Encounter addended by: Lenora Joiner C.NMayank on: 07/21/2021 7:01 AM Actions taken: Letter saved documented in this encounter Plan of Treatment Scheduled Orders Name Type Priority Associated Order Schedule Diagnoses Prior Auth Rad Tx Radiation Oncology Routine Malignant Neoplas m Ordered: 07/20/2021 Of Breast Lower Outer Quadrant Female Right (HCC) Management Visit Radiation Oncology Routine Malignant Neoplasm 10 Occurrences Of Breast Lower starting 10/2020 Outer Quadrant until 022 Female Right (HCC) Scheduled Referrals Name Type Priority Associated Diagnoses Order S chedule Radiation Oncology Outpatient Referral Routine Ex pected: office visit 08/02/2021 (clinic) (Approximate), Expires: 07/20/2022 documented as of this encounter Results Initial Rad Onc Treatment Planning CT Simulation (08/02/2021 2:03 PM JUICE TESTER) Specimen (Source) Anatomical Location Collection Method / Collectio n Time Received Time / Laterality Volume Narrative PILAR SHANNON - 08/02/2021 2:03 PM JUICE TESTER Marga Armenta, RTT ? 08/02/2021 ??2:03 PM Initial Rad Onc Treatment Planning CT Si mulation Date/Time: 08/02/2021 2:03 PM Performed by: Mukesh Stone M.D. Authorized by: Mukesh Stone M.D. Mukesh Stone M.D. RADIATION ONCOLOGY ORDERABLE S Performing Organization Address City/State/ZIP Code Phon e Number [facility] [place] [facility] documented in this encounter Visit Diagnoses Diagnosis Malignant Neoplasm Of Breast Lower Outer Quadrant Female Right (HCC) - Primary Malignant Neoplasm Of Breast Lower Outer Quadrant Female Right (HCC) documented in this encounter
--- OUTSIDE RECORDS SUMMARY | 2022-04-27 02:56 | XMS_ITS | Encounter Summary ---
:1940 Author Organization [facility] Address [address] [place] [address] Care Team Providers Name Role Phone Unavailable Primary Care Provider Unavailable Encounter Details Date Type Department Care Team Description 06/14/2021 Hospital Encounter Department of Demarcus Langley Preope rative Laboratory Medicine MYee Examination and Pathology, [address] [place] [address] in [facility] [address] [place] [phone] [place] [address] (Work) [place], [place] [phone] (Fax) [phone] Social History Tobacco Use Types Packs/Day Years [...] or relatives? How often do you attend adventist or Never 2020 shinto services? Do you belong to any clubs or No 06/11/2021 organizations such as adventist groups, unions, fraternal or athletic groups, or [...] place to sleep or slept in a prison (including now)? Education Answer Date Recorded What is the highest level of school you have completed or 11 th grade 06/11/2021 the highest degree you have received? Sex Assigned at Date Recorded Female 06/11/2021 12:59 PM CDT documented as of this encounter Medications at Time of Discharge Medication Sig Dispensed Refills Start Date End Date bebool 90 Inhale 1-2 puffs 18 g 3 [...] Name Priority Date/Time Associated Diagnosis Comme nts CBC WITH Routine 06/14/2021 10:28 Preoperative Results for this DIFFERENTIAL, B AM CDT Examination procedure ar e in Cardiovascular the results section. BASIC METABOLIC Routine 06/14/2021 10:28 Preoperative Results for this PANEL, S/P AM CDT Examination procedure are i n Cardiovascular the results section. documented in this encounter Results (ABNORMAL) Basic Metabolic Panel (06/14/2021 10:28 AM [...] 06/14/2021 DTL Black/ mL/min/BSA 11:57 AM CDT Burundian Comment: ----ADDITIONAL INFORMATION---- Estimated GFR calculated using [...] City/State/ZIP Code Phon e Number [facility] - [address] [place], [place] [address] [facility] [place] [address] [facility] [address] (ABNORMAL) CBC with Differential, Blood (06/14/2021 10:28 AM CDT) [facility] gist Method Time Signature Hemoglobin 16.1 (H) [...] City/State/ZIP Code Phon e Number [facility] - [address] [place], [place] [address] [facility] [place] [address] [facility] [address] documented in this encounter Visit Diagnoses Diagnosis Preoperative Examination Cardiovascular documented in this encounter
--- OUTSIDE RECORDS SUMMARY | 2022-04-27 02:56 | XMS_ITS | Encounter Summary ---
:1940 Author Organization [facility] Address [address] [place] [address] Care Team Providers Name Role Phone Unavailable Primary Care Provider Unavailable Reason for Referral Outpatient (Routine) - Closed Specialty Diagnoses / Procedures Referred By Contact Refer red To Contact Diagnoses Murmur Aortic Outflow Demarcus Langley M.D. [facility] Procedures Echo Transthoracic (TTE) [address] [place] [phone] Referral ID Status Reason Start Date Expiration Date Visits Requ ested Visits Authorized [id number] Closed 06/14/2021 06/14/2022 1 1 Reason for Visit Outpatient (Routine) - Closed Specialty Diagnoses / Procedures Referred By Contact Refer red To Contact Diagnoses Murmur Aortic Outflow Demarcus Langley M.D. [facility] Procedures Echo Transthoracic (TTE) [address] [place] [phone] Referral ID Status Reason Start Date Expiration Date Visits Requ ested Visits Authorized [id number] Closed 06/14/2021 06/14/2022 1 1 Encounter Details Date Type Department Care Team Description 06/14/2021 Hospital Encounter Department of Demarcus Langley Murmur Aortic Cardiovascular Diseases [place] Outflow in [facility] [address] [facility] [address] [place] [address] [phone] Social History Tobacco Use Types Packs/Day Years [...] do you attend taoist or Never 2020 jehovah's witness services? Do you belong to any clubs [...] place to sleep or slept in a penitentiary (including now)? Education Answer Date Recorded What [...] mcg/actuation inhaler documented as of this encounter Miscellaneous Notes Result Encounter Note - Demarcus Langley M.D. - 06/15/2021 8:37 AM CDT Patient sent letter regarding these results. The murmur I heard is due to a narrowing of the aortic valve. documented in this encounter Plan of Treatment Not on filedocumented as of this encounter Procedures Procedure Name Priority Date/Time Associated Diagnosis Comme nts (TTE) 2D ECHO Routine 06/14/2021 3:58 PM Murmur Aortic Results for this DOPPLER COLOR CDT Outflow procedure are in the results section. documented in this encounter Results (TTE) 2D ECHO DOPPLER COLOR (06/14/2021 3:58 PM CDT) [facility] gist Method Time Signature Ejection Fraction 66 MC [...] . For the complete report, see the mobile mum Documents. Narrative 06/14/2021 4:01 PM CDT For the complete report, see the mobile mum Documents. Final Impressions 1. Normal left ventricular [...] Documents. Demarcus Langley M.D. CV ECHO PROCEDURES documented in this encounter Visit Diagnoses Diagnosis Murmur Aortic Outflow documented in this encounter
--- OUTSIDE RECORDS SUMMARY | 2022-04-27 02:56 | XMS_ITS | Encounter Summary ---
:1940 Author Organization [facility] Address [address], [place] [address] Care Team Providers Name Role Phone Needs Pcp, Assignment Primary Care Provider Reason for Visit Procedure/Equipment (Routine) - Canceled Specialty Diagnoses / Procedures Referred By Contact Refer red To Contact Diagnoses Follow-up examination of abnormal mammogram Alethea Patterson, Procedures [facility] Breast R[address] [place] [address] Referral ID Status Reason Start Date Expiration Date Visits V isits Requested Authorized [id number] Canceled 05/18/2018 08/17/2019 1 1 Encounter Details Date Type Department Care Team Description 05/30/2018 Imaging [facility] [address] Alethea Patterson w-up examination of Mammography Enma Ward MD abnormal mammogram [address] [facility] [address] [place] [address] [phone] Social History Tobacco Use Types Packs/Day Years [...] as of this encounter Visit Diagnoses Diagnosis Follow-up examination of abnormal mammog kendall Abnormal mammogram, unspecified documented in this encounter Care Teams Lead Teller Relationship Specialty Start Date End Date Needs Pcp, Assignment PCP - General 05/03/18 01/01/19 [place] [address] documented as of this encounter
--- OUTSIDE RECORDS SUMMARY | 2022-04-27 02:56 | XMS_ITS | Encounter Summary ---
:1940 Author Organization [facility] Address [address] [place] [address] Care Team Providers Name Role Phone Unavailable Primary Care Provider Unavailable Reason for Visit Radiation Therapy (Routine) - Authorized Specialty Diagnoses / Procedures Referred By Contact Refer red To Contact Diagnoses Malignant Neoplasm Of Breast Lower Outer Quadrant Female Right (HCC) Mukesh Stone M.D. [facility] Procedures Prior Auth Rad Tx [place] RADTN [place] DEL >=1 MEV COMPLEX [address] [place] [address] Referral ID Status Reason Start Date Expiration Date Visits V isits Requested Authorized [id number] Authorized 08/16/2021 07/20/2022 5 5 Encounter Details Date Type Department Care Team Description 08/16/2021 Hospital Encounter Department of Radiation Evon Stone, Oncology in [place] [address] [facility] [address] [place], [place] [phone] [phone] Social History Tobacco Use Types Packs/Day Years [...] or relatives? How often do you attend sabianism or Never 2020 confucianist services? Do you belong to any clubs or No 06/11/2021 organizations such as sabianism groups, unions, fraternal or athletic groups, or [...]
--- OUTSIDE RECORDS SUMMARY | 2022-04-27 02:56 | XMS_ITS | Encounter Summary ---
:1940 Author Organization [facility] Address [address], [place] [address] Care Team Providers Name Role Phone Judy Sorensen MD Primary Care Provider Reason for Visit Reason Onset Date Comments Refill 08/15/2017 raNITIdine (ZANTAC) 300 MG tablet Encounter Details Date Type Department Care Team Description 08/15/2017 Refill [facility] Gwen Sorensen MD Refill (raNITIdine Medicine [address] (ZANTAC) 300 MG tablet) [address] [place] [address] [phone] (Wo rk) Social History Tobacco Use Types Packs/Day Years Used Date Smoking Tobacco: Every Day Cigarettes 0.5 40 Smokeless Tobacco: Never Comments: Smoking History Packs/day: Alcohol Use Standard Drinks/Week Comments Yes 7 (1 standard drink = 0.6 oz pure alcoho l) Sex Assigned at Date Recorded Not on file documented as of this encounter Nursing Notes Jeniffer Pope RN - 08/18/2017 7:34 AM CST Further assistance needed to complete refill request Reason: Pt overdue for qualifying visit. Next Steps: Review pended order for accuracy. Sign. Route to frontline pool to schedule appt. Requested Prescriptions Pending Prescriptions Disp Refills ??? raNITIdine (ZANTAC) 300 MG tablet 90 Tab 0 Sig: Take 1 tablet by mouth at bedtime as needed for Heartburn. RESS STUFFER Interface, Out [employer] Prov Query - 08/15/2017 12:27 PM CST raNITIdine (ZANTAC) 300 MG tablet Medication started: 08/23/2012 Last ordered by JUDY GARCÍA M: 06/22/2016 (419 days ago) QTY: 90, Refills: 3, Sig: take one tabletat bedtime as needed for hearburn (changed) -> This medication may not have been authorized by the requested provider. -> The requested sig has changed from the last order. -> An office visit is overdue (performed over 15 months ago, required every 12 months). Last qualifying visit: 05/17/2016 (with JUDY GARCÍA) Next scheduled visit: None Powered by [employer], Reference: [id number], 08/15/2017 12:27:27 PM MATTRESS STUFFER, Pool: LEDBETTER FP REFILL ([id number]) RESS STUFFER documented in this encounter Plan of Treatment Not on filedocumented as of this encounter Visit Diagnoses Not on filedocumented in this encounter Care Teams Armature Winder Repairer Relationship Specialty Start Date End Date Judy Sorensen MD PCP - General 12/18/10 05/02/18 [address] [place] [address] documented as of this encounter
--- OUTSIDE RECORDS SUMMARY | 2022-04-27 02:56 | XMS_ITS | Encounter Summary ---
:1940 Author Organization [employer] Address [address] [place] [address] Care Team Providers Name Role Phone Alethea Patterson MD Primary Care Provider [phone] Reason for Visit Reason Comments Clinician Finder Team Encounter Details Date Type Department Care Team Description 01/02/2019 Telephone [facility] [address] [facility] Pcp, Clinician Finder Team Family Medicine Assignment [address] [facility] [place] [address] [phone] Social History Tobacco Use Types Packs/Day Years [...] on filedocumented in this encounter Care Teams State Highway Police Officer Relationship Specialty Start Date End Date Alethea Patterson MD PCP - General Family Practice [facility] [place] [address] documented as of this encounter
--- OUTSIDE RECORDS SUMMARY | 2022-04-27 02:57 | XMS_ITS | Encounter Summary ---
:1940 Author Organization [employer] Address [address] [place] [address] Care Team Providers Name Role Phone Judy Sorensen MD Primary Care Provider Reason for Visit Reason Onset Date Comments Refill 05/16/2017 atenolol (TENORMIN) 25 MG tablet Encounter Details Date Type Department Care Team Description 05/16/2017 Refill [facility] Gwen Sorensen MD Refill (atenolol Medicine [address] (TENORMIN) 25 MG [address] [place], [place] tablet) [place] [address] [phone] (Wo rk) Social History Tobacco Use Types Packs/Day Years Used Date Smoking Tobacco: Every Day Cigarettes 0.5 40 Smokeless Tobacco: Never Comments: Smoking History Packs/day: Alcohol Use Standard Drinks/Week Comments Yes 7 (1 standard drink = 0.6 oz pure alcoho l) Sex Assigned at Date Recorded Not on file documented as of this encounter Nursing Notes Michelle Rushing - 05/19/2017 10:38 AM CDT PRINTED letter & sent Ese Yang RN - 05/16/2017 4:29 PM CDT OFFICE APPOINTMENT NEEDED Please notify patient to schedule an appointment within 30 days. Requested Prescriptions Pending Prescriptions Disp Refills atenolol (TENORMIN) 25 MG tablet 90 Tab 0 Sig: Take 1 Tab by mouth daily. Interface, Out beneSol Prov Query - 05/16/2017 3:16 PM CDT atenolol (TENORMIN) 25 MG tablet Medication started: 05/25/2011 Last ordered by JUDY GARCÍA: 08/26/2016 (263 days ago) QTY: 90, Refills: 2, Sig: take 1 tab by mouth daily. (unchanged) -> Refill x 3 months (courtesy refill. overdue for an office visit) Last qualifying visit: 05/17/2016 (with JUDY GARCÍA) Next scheduled visit: None SBP: 130 mm Hg on 05/17/2016 DBP: 66 mm Hg on 05/17/2016 Powered by [employer], Reference: [id number], 05/16/2017 3:16:22 PM CDT, Pool: KHLOE FP REFILL ([id number]) documented in this encounter Plan of Treatment Not on filedocumented as of this encounter Visit Diagnoses Not on filedocumented in this encounter Care Teams Drafter Detail Relationship Specialty Start Date End Date Judy Sorensen MD PCP - General 12/18/10 05/02/18 [address] [place] [address] documented as of this encounter
--- OUTSIDE RECORDS SUMMARY | 2022-04-27 02:57 | XMS_ITS | Encounter Summary ---
:1940 Author Organization [employer] Address [address] [address] Care Team Providers Name Role Phone Judy Sorensen MD Primary Care Provider Reason for Visit Reason Comments Refill Encounter Details Date Type Department Care Team Description 11/18/2014 Refill [facility] Judy Christensen MD Refill [address] [place] [address] [place], [place] [address] (Wo rk) Social History Tobacco Use Types Packs/Day Years Used Date Smoking Tobacco: Never Assessed Sex Assigned at Date Recorded Not on file documented as of this encounter Nursing Notes User, Refillkareemzachapis - 11/19/2014 3:47 PM CST 1) atorvastatin (LIPITOR) 40 mg tablet [Pharmacy Med Name: ATORVASTATIN 40MG TABLET] - WARNING: The requested medication on 10/16/2014. - REFILL: 3 months (if warnings resolved) - RATIONALE: This is a courtesy refill. Patient is overdue for an office visit. This will be the last refill authorized by the protocol. - LAST QUALIFYING VISIT WITH JUDY LARSEN: 10/16/2013 - NEXT SCHEDULED VISIT: None - MEDICATION STARTED: 10/16/2013 - LAST REFILLED ON: 10/16/2013, QTY: 90, Refills: 3, Sig: take 1 tablet by mouth daily (every 24 hours). (changed but equivalent) Powered by [employer], Reference: [id number], 11/18/2014 9:43:40 AM Markos HAIDER: KHLOE FP REFILL ([id number]) 2) chlorthalidone (HYGROTEN) 25 mg tablet [Pharmacy Med Name: CHLORTHALIDONE 25MG TABLET] - WARNING: The requested medication on 10/16/2014. - REFILL: 3 months (if warnings resolved) - RATIONALE: This is a courtesy refill. Patient is overdue for an office visit, Cr check, K check and Na check. This will be the last refill authorized by the protocol. - LAST QUALIFYING VISIT WITH JUDY LARSEN M: 10/16/2013 - NEXT SCHEDULED VISIT: None - MEDICATION STARTED: 09/19/2012 - LAST REFILLED ON: 10/16/2013, QTY: 90, Refills: 3, Sig: take 1 tablet by mouth daily (every 24 hours). (changed but equivalent) - Cr: 0.9mg/dL on 10/16/2013 - Na: 145.0mEq/L on 10/16/2013 - K: 4.2mEq/L on 10/16/2013 Powered by [employer], Reference: [id number], 11/18/2014 9:43:40 AM Markos HAIDER: KHLOE FP REFILL ([id number]) Michelle Rushing - 11/19/2014 3:47 PM CST Appointment Letter Sent Jeniffer Pope, RN - 11/19/2014 3:32 PM CST Renewed medication per medication refill protocol. Requested Prescriptions Signed Prescriptions Disp Refills ??? chlorthalidone (HYGROTEN) 25 mg tablet 90 tablet 0 Sig: Take 1 tablet by mouth daily (every 24 hours). Authorizing Provider: JUDY LARSEN Ordering User: JENIFFER POPE ??? atorvastatin (LIPITOR) 40 mg tablet 90 tablet 0 Sig: Take 1 tablet by mouth daily (every 24 hours). Authorizing Provider: JUDY LARSEN Ordering User: JENIFFER POPE REFILL APPOINTMENT NEEDED Please send letter to patient regarding need to schedule an appointment within 30 days. Medication has been renewed and sent to pharmacy for a 90 day supply. Comment: Patient needs to schedule a qualifying visit prior to further refills. 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 [facility] [address] [place] [address] Sol Oliva [address] [place] [id number] November 19, 2014 Dear Sol Oliva, We received your request for the following prescription(s): Orders Placed This Encounter Medications ??? chlorthalidone (HYGROTEN) 25 mg tablet Sig: Take 1 tablet by mouth daily (every 24 hours). Dispense: 90 tablet Refill: 0 ??? atorvastatin (LIPITOR) 40 mg tablet Sig: Take 1 tablet by mouth daily (every 24 hours). Dispense: 90 tablet Refill: 0 Your request was approved. You will need an appointment with your provider before your next refill. Please call [facility] at [phone] to schedule an appointment within 30 days. Thank you for choosing [facility] for your health care needs. Your [facility] Primary Care Team ATRY TEACHER documented in this encounter Plan of Treatment Not on filedocumented as of this encounter Visit Diagnoses Not on filedocumented in this encounter Care Teams Interior Assemblies Installer Relationship Specialty Start Date End Date Judy Sorensen MD PCP - General 12/18/10 05/02/18 [address] [place] [address] documented as of this encounter
--- OUTSIDE RECORDS SUMMARY | 2022-04-27 02:57 | XMS_ITS | Encounter Summary ---
:1940 Author Organization [employer] Address [address], [place] [address] Care Team Providers Name Role Phone Judy Sorensen MD Primary Care Provider Reason for Visit Reason Onset Date Comments Lab/Rad Request 05/24/2017 Encounter Details Date Type Department Care Team Description 05/24/2017 Telephone [facility] Gwen Sorensen MD Lab/Rad Request [facility] [address] [place] [address] [place] [address] [phone] Social History Tobacco Use Types Packs/Day Years Used Date Smoking Tobacco: Every Day Cigarettes 0.5 40 Smokeless Tobacco: Never Comments: Smoking History Packs/day: Alcohol Use Standard Drinks/Week Comments Yes 7 (1 standard drink = 0.6 oz pure alcoho l) Sex Assigned at Date Recorded Not on file documented as of this encounter Nursing Notes Toshia Richardson RN - 05/24/2017 12:13 PM CDT Called pt and told her fasting labs ready. Again reminded her make appt which she will do once 's prostate surgery done at [place]. Lenora Schroeder MD - 05/24/2017 12:04 PM CDT Fasting labs ordered for patient. Toshia Richardson, RN - 05/24/2017 11:54 AM CDT Reason for Call: Lab orders requested. Next Steps: Document further recommendations and route to appropriate person or pool. Caller IS expecting a call back from Care Team. Additional Information: Pt is 76 yr old woman calling to get lab orders for her meds: BP and chol. Did remind her she needs yearly well But meanwhile pt would like to get labs done. Lives in [facility] will be in [place] tomorrow. Callback TrippSol lock (Self) [phone] (H) Call her if labs will be ready so that she might stop. Lorraine Skelton - 05/24/2017 11:03 AM CDT Lab/Radiology Requests Primary Care Provider: Judy Larsen MD What test is needed and when? Pt states- blood work for her medications Why is test needed/requested? medications *If symptom related, send to triage Fisher Hoop Net: Sol Ángel Pj Best call back number: Telephone Information: Work Phone Not on file. Mobile Not on file. , No relevant phone numbers on file. Is it OK to leave a confidential message on this voicemail? yes documented in this encounter Plan of Treatment Not on filedocumented as of this encounter Results CBC - Complete Blood Count-No Diff (05/25/2017 12:37 PM CDT) athologist Signature White Blood Cell 9.0 3.8 - 11.0 PN SOFT Count k/cmm Red Blood Cell 5.03 3.70 - PN SOFT Count 5.20 m/cmm Hemoglobin 15.0 11.8 - PN SOFT 15.5 g/dL Hematocrit 45.7 35.0 - PN SOFT 46.0 % Mean Corpuscular 90.9 80.0 - PN SOFT Volume 100.0 fL RDW 13.7 11.0 - PN SOFT 15.0 % Platelet Count 200 140 - 450 PN SOFT k/cmm Specimen Anatomical Collection Method Collection Time Receive d Time (Source) Location / / Volume Laterality 05/25/2017 12:37 05/25/2017 PM CDT 12:37 PM CDT Narrative PN SOFT - 05/25/2017 12:41 PM CDT Performed at [facility], [address] [place] [address] CLIA number [id number] Lenora Schroeder MD LAB_1 Performing Organization Address [facility] Phon e Number PN SOFT [address] [place] [address] Alanine Aminotransferase - ALT (SGPT) (05/25/2017 12:37 PM CDT) [facility] Time Signature Alanine 15 9 - 55 PN SOFT Aminotransferase U/L Specimen Anatomical Collection Method Collection Time Receive d Time (Source) Location / / Volume Laterality 05/25/2017 12:37 05/25/2017 PM CDT 12:37 PM CDT Narrative PN SOFT - 05/25/2017 3:53 PM CDT Performed at [facility], [address] [place] [address] CLIA number [id number] Lenora Schroeder MD LAB_1 Performing Organization Address [facility] Phon e Number PN SOFT [address] [place] [address] Lipid Panel - LDLD If Trig High (05/25/2017 12:37 PM CDT) Analysis Performed At Patho logist Time Signature Cholesterol 176 0 - 199 PN SOFT mg/dL Triglycerides 89 4 - 149 PN SOFT mg/dL HDL Cholesterol 64 >39 mg/dL PN SOFT Cholesterol/HDL 2.8 PN SOFT Ratio Screen LDL Calculated 94 19 - 130 PN SOFT mg/dL Length Of Fast 12.0 PN SOFT Specimen Anatomical Collection Method Collection Time Receive d Time (Source) Location / / Volume Laterality 05/25/2017 12:37 05/25/2017 PM CDT 12:37 PM CDT Narrative PN SOFT - 05/25/2017 3:53 PM CDT Performed at [facility], [address] [place] [address] CLIA number [id number] Lenora Schroeder MD LAB_1 Performing Organization Address [facility] Phon e Number PN SOFT [address] [place] [address] (ABNORMAL) Basic Metabolic Panel (05/25/2017 12:37 PM CDT) athologist Signature Creatinine 0.80 0.55 - PN SOFT Serum 1.02 mg/dL Lab Glucose 106 (H) 70 - 100 PN SOFT mg/dL Comment: The stated glucose range is for the fast ing state. Non-fasting glucose range is 70-180 mg/d L CO2 33 (H) 22 - 31 mmol/L PN SOFT Chloride 98 98 - 109 mmol/L PN SOFT Potassium 3.3 (L) 3.5 - 5.2 mmol/L PN SOFT Sodium 137 136 - 145 mmol/L PN SOFT Blood Urea Nitrogen 22 9 - 26 mg/dL PN SOFT Calcium 9.5 8.4 - 10.2 mg/dL PN SOFT Est [...] Time (Source) Location / / Volume Laterality 05/25/2017 12:37 05/25/2017 PM CDT 12:37 PM CDT Narrative PN SOFT - 05/25/2017 3:53 PM CDT Performed at [facility], [address] [place] [address] CLIA number [id number] Lenora Schroeder MD LAB_1 Performing Organization Address [facility] Phon e Number PN SOFT [address] [place] [address] documented in this encounter Visit Diagnoses Diagnosis Essential hypertension (HRC) - Primary Unspecified essential hypertension Abdominal aortic aneurysm (AAA) without rupture (HRC) Hypokalemia - Primary Hypopotassemia Essential hypertension (HRC) Unspecified essential hypertension Abdominal aortic aneurysm (AAA) without rupture (HRC) documented in this encounter Care Teams Power Hair Clipper Relationship Specialty Start Date End Date Judy Sorensen MD PCP - General 12/18/10 05/02/18 [address] [place] [address] documented as of this encounter
--- OUTSIDE RECORDS SUMMARY | 2022-04-27 02:57 | XMS_ITS | Encounter Summary ---
:1940 Author Organization [employer] Address [address] [place] [address] Care Team Providers Name Role Phone Alethea Patterson MD Primary Care Provider [phone] Reason for Visit Reason Comments Refill Encounter Details Date Type Department Care Team Description 05/05/2016 Refill [facility] Judy Christensen MD Refill [address] [place] [address] [place], [place] [address] (Wo rk) Social History Tobacco Use Types Packs/Day Years Used Date Smoking Tobacco: Never Assessed Sex Assigned at Date Recorded Not on file documented as of this encounter Nursing Notes User, Refillkareemzachapis - 06/06/2016 1:32 AM CDT chlorthalidone (HYGROTEN) 25 mg tablet - MEDICATION STARTED: 09/19/2012 - LAST REFILLED ON: 02/09/2016, QTY: 90, Refills: 0, Sig: take 1 tablet by mouth daily (every 24 hours). (unchanged) - NOTIFICATION #1: Patient has already received a complimentary refill for this medication. - NOTIFICATION #2: Cr, K, and Na are overdue (performed 17 months ago, required every 12 months) - LAST QUALIFYING VISIT WITH JUDY GARCÍA: 04/28/2015 - NEXT SCHEDULED VISIT: None - SBP: 112mm Hg on 04/28/2015 - DBP: 82mm Hg on 04/28/2015 - Cr: 0.8mg/dL on 12/23/2014 - Na: 141mEq/L on 12/23/2014 - K: 3.6mEq/L on 12/23/2014 ADDITIONAL SCHEDULING ACTIONS TAKEN: - CR for chlorthalidone (HYGROTEN) 25 mg tablet (Sent to PC REFILL LAB) - K for chlorthalidone (HYGROTEN) 25 mg tablet (Sent to [facility]) - NA for chlorthalidone (HYGROTEN) 25 mg tablet (Sent to [facility] RE[facility]) Powered by [employer], Reference: [id number], 05/05/2016 10:51:58 AM CDT, Pool: KHLOE FP REFILL ([id number]) Claire Simon - 05/09/2016 1:21 PM CDT Called pt and booked appt. She said it was just fine for the regular labs. Judy Garay MD - 05/09/2016 1:10 PM CDT sent, needs labs ordered and visit. If wants additional screening fasting labs to be done with this return message to me. Keena Kevin RN - 05/06/2016 12:00 PM CDT PROVIDER ACTION REQUIRED Overdue lab(s) and due for office visit. Please address refill request and sign if appropriate.The following labs required for management of medication refills have been ordered: Potassium, Creatinine and Sodium. Provider to enter any additional lab orders needed at this time. Done this message/close the encounter if patient does not need to be contacted. or Route to Frontline if patient should be advised to come in for labs. Requested Prescriptions Pending Prescriptions Disp Refills ??? chlorthalidone (HYGROTEN) 25 mg tablet 90 tablet 0 Sig: Take 1 tablet by mouth daily (every 24 hours). documented in this encounter Plan of Treatment Not on filedocumented as of this encounter Visit Diagnoses Not on filedocumented in this encounter Care Teams Streetcar Dispatcher Relationship Specialty Start Date End Date Alethea Patterson MD PCP - General Family Practice 01/02/191999 [place] [address] documented as of this encounter
--- OUTSIDE RECORDS SUMMARY | 2022-04-27 02:57 | XMS_ITS | Encounter Summary ---
:1940 Author Organization [employer] Address [address] [place] [address] Care Team Providers Name Role Phone Judy Sorensen MD Primary Care Provider Encounter Details Date Type Department Care Team Description 05/25/2017 Lab Visit [facility] Hypokalemia (Primary Dx); [address] [employer] Essential hypertension; [place] [address] Abdominal aortic aneurysm (A AA) without rupture (HRC) [phone] Social History Tobacco Use Types Packs/Day Years [...] Diagnosis Comme nts LIPID PANEL AND Routine 05/25/2017 12:37 Abdominal aortic Resu lts for this DIRECT LDL(IF PM CDT aneurysm (AAA) procedure ar e in NEEDED) without rupture (HRC) the re sults section. BASIC METABOLIC Routine 05/25/2017 12:37 Essential Results for this PANEL PM CDT hypertension procedure are i n the results section. COMPLETE BLOOD Routine 05/25/2017 12:37 Essential Results f or this COUNT-NO DIFF PM CDT hypertension procedure are in the results section. ALT (SGPT) Routine 05/25/2017 12:37 Abdominal aortic Results for this PM CDT aneurysm (AAA) procedure are in without rupture (HRC) the re sults section. documented in this encounter Results Potassium (06/12/2017 9:11 AM CDT) athologist Signature Potassium 3.9 3.5 - 5.2 PN SOFT mmol/L Specimen Anatomical Collection Method Collection Time Receive d Time (Source) Location / / Volume Laterality 06/12/2017 9:11 AM 7 9:11 CDT AM CDT Narrative PN SOFT - 06/12/2017 9:34 AM CDT Performed at [facility], [address] [place], [place] [address] CLIA number [id number] Lenora Schroeder MD LAB_1 Performing Organization Address [facility] Phon e Number PN SOFT [address] [place] [address] CBC - Complete Blood Count-No Diff (05/25/2017 [...] - 05/25/2017 12:41 PM CDT Performed at [facility], [facility] [place] [facility] [address] [place] [address] CLIA number [id number] Lenora Schroeder MD LAB_1 Performing Organization Address [facility] Phon e Number PN SOFT [address] [place] [address] [phone] Alanine Aminotransferase - ALT (SGPT) (05/25/2017 12:37 PM CDT) Patholo gist Method Time Signature Alanine 15 9 - 55 PN SOFT Aminotransferase U/L Specimen Anatomical Collection Method Collection Time Receive d Time (Source) Location / / Volume Laterality 05/25/2017 12:37 05/25/2017 PM CDT 12:37 PM CDT Narrative PN SOFT - 05/25/2017 3:53 PM CDT Performed at [facility], [address] [place] [address] CLIA number [id number] Lenora Schroeder MD LAB_1 Performing Organization Address [facility] Phon e Number PN SOFT [address] [place] [address] Lipid Panel - LDLD If Trig High (05/25/2017 12:37 PM CDT) [facility] Signature Cholesterol 176 0 - [...] - 05/25/2017 3:53 PM CDT Performed at [facility], [facility] [place] [facility] [address] [place] [address] CLIA number [id number] Lenora Schroeder MD LAB_1 Performing Organization Address [facility] Phon e Number PN SOFT [address] [place] [address] (ABNORMAL) Basic Metabolic Panel (05/25/2017 12:37 PM CDT) P athologist Signature Creatinine 0.80 0.55 - PN [...] - 05/25/2017 3:53 PM CDT Performed at [facility], [address] [place] [address] CLIA number [id number] Lenora Schroeder MD LAB_1 Performing Organization Address City/State/ZIP Code Phon e Number PN SOFT [address] [place] [address] documented in this encounter Visit Diagnoses Diagnosis Hypokalemia - Primary Hypopotassemia Essential hypertension (HRC) Unspecified essential hypertension Abdominal aortic aneurysm (AAA) without rupture (HRC) Hypokalemia Hypopotassemia documented in this encounter Care Teams Microwave Engineer Relationship Specialty Start Date End Date Judy Sorensen MD PCP - General 12/18/10 05/02/18 [address] [place] [address] documented as of this encounter
--- OUTSIDE RECORDS SUMMARY | 2022-04-27 02:57 | XMS_ITS | Encounter Summary ---
:1940 Author Organization [employer] Address [address], [place] [address] Care Team Providers Name Role Phone Judy Sorensen MD Primary Care Provider Encounter Details Date Type Department Care Team Description 05/16/2017 Refill Order [facility] Gwen Sorensen MD [address] [address] [place] [address] [phone] Social History Tobacco Use Types Packs/Day Years Used Date Smoking Tobacco: Every Day Cigarettes 0.5 40 Smokeless Tobacco: Never Comments: Smoking History Packs/day: Alcohol Use Standard Drinks/Week Comments Yes 7 (1 standard drink = 0.6 oz pure alcoho l) Sex Assigned at Date Recorded Not on file documented as of this encounter Nursing Notes Michelle Rushing - 05/19/2017 11:17 AM CDT Letter recently sent in another encounter within the last 30 days. Closing note. Mariel Galvan - 05/16/2017 4:02 PM CDT Labs to be addressed at future visit. Office visit needed. Please send appointment letter. Interface, Out Surescripts Prov Query - 05/16/2017 3:25 PM CDT SCHEDULE THE FOLLOWING: - CR BY: Now (Due as of 05/12/2017) - K BY: Now (Due as of 05/12/2017) - NA BY: Now (Due as of 05/12/2017) - LAST QUALIFYING VISIT WITH JUDY GARCÍA M: 05/17/2016 - NEXT SCHEDULED VISIT: None - NEXT LAB APPOINTMENT: None Powered by [employer], Reference: [id number], 05/16/2017 3:25:51 PM CDT, Pool: LEDBETTER FP REFILL ([id number]) documented in this encounter Plan of Treatment Not on filedocumented as of this encounter Visit Diagnoses Diagnosis Encounter for long-term (current) use of medications - Primary Encounter for long-term (current) use of other medications documented in this encounter Care Teams Shipping Services Sales Representative Relationship Specialty Start Date End Date Judy Sorensen MD PCP - General 12/18/10 05/02/18 [address] [place] [address] documented as of this encounter
--- OUTSIDE RECORDS SUMMARY | 2022-04-27 02:57 | XMS_ITS | Encounter Summary ---
:1940 Author Organization [employer] Address [address] [place] [address] Care Team Providers Name Role Phone Judy Sorensen MD Primary Care Provider Reason for Visit Reason Comments Refill Encounter Details Date Type Department Care Team Description 03/22/2016 Refill [facility] Judy Christensen MD Refill [address] [place] [address] [place], [place] [address] (Wo rk) Social History Tobacco Use Types Packs/Day Years Used Date Smoking Tobacco: Never Assessed Sex Assigned at Date Recorded Not on file documented as of this encounter Nursing Notes User, Refilljustin - 03/23/2016 4:41 PM CDT ranitidine (ZANTAC) 300 mg tablet [Pharmacy Med Name: RANITIDINE 300MG] - MEDICATION STARTED: 05/04/2011 - LAST REFILLED ON: 12/23/2014, QTY: 90, Refills: 3, Sig: take 1 tablet by mouth at bedtime as needed for heartburn. (changed) - WARNING: This medication may not have been authorized by the requested provider. - REFILL: 3 months (if warnings resolved; manual update required, due to unreadable sig) - RATIONALE: This refill should last until the patient is due for an office visit. - LAST QUALIFYING VISIT WITH JUDY GARCÍA: 04/28/2015 - NEXT SCHEDULED VISIT: None Powered by [employer], Reference: [id number], 03/22/2016 9:12:01 AM CDT, Pool: LEDBETTER FP REFILL ([id number]) K SPLITTER OPERATOR Jeniffer Pope, RN - 03/23/2016 4:41 PM CDT Renewed medication per medication refill protocol. Requested Prescriptions Signed Prescriptions Disp Refills ??? ranitidine (ZANTAC) 300 mg tablet 90 tablet 0 Sig: Take 1 tablet by mouth at bedtime as needed for Heartburn. Authorizing Provider: JUDY GARCÍA Ordering User: JENIFFER POPE documented in this encounter Plan of Treatment Not on filedocumented as of this encounter Visit Diagnoses Not on filedocumented in this encounter Care Teams Career Coordinator Relationship Specialty Start Date End Date Judy Sorensen MD PCP - General 12/18/10 05/02/18 [place] [address] documented as of this encounter
--- OUTSIDE RECORDS SUMMARY | 2022-04-27 02:57 | XMS_ITS | Encounter Summary ---
:1940 Author Organization [employer] Address [address] [address] Care Team Providers Name Role Phone Judy Sorensen MD Primary Care Provider Reason for Visit Reason Comments Patient Calling Back Encounter Details Date Type Department Care Team Description 12/24/2014 Telephone [facility] Gwen Sorensen MD Patient Calling Back [facility] [address] [address] [phone] (Wo rk) Social History Tobacco Use Types Packs/Day Years Used Date Smoking Tobacco: Never Assessed Sex Assigned at Date Recorded Not on file documented as of this encounter Nursing Notes Edwige Guzmán LPN - 12/29/2014 4:29 PM CDT Informed Pt of Dr Larsen's message below. Gave number for Pt to schedule CT scan. Aysha Espinoza - 12/29/2014 2:16 PM CDT Patient returning call to nurse, no answer at extension in chart. Please call Edwige Guzmán LPN - 12/29/2014 1:15 PM CDT LM with Pt's spouse to return call to clinic to review message from Dr Larsen below on explanation ofCT scan versus CXR. Please forward to Edwige in [facility] @ x [phone] when Pt returns call. 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 Iordered it as a screen. She did report a dry cough. Usually for symptom of cough the test ordered raji Chest x ray, not a low dose CT. I can change the order to CXR, but not a diagnostic CT. Yari Carranza RN - 12/26/2014 12:32 PM CDT Spoke with pt, who was advised Dr. Larsen is out of office until Monday. She is fine waiting until then for follow up. Andreia Bolton - 12/26/2014 12:17 PM CDT Pt calling back transferred to nurse. Please advise. Edwige Yanez RN - 12/24/2014 11:13 AM CDT Action requested: Return Call Request Additional Info: Questions Pt's calling. Has questions regarding Lung CT scan that was ordered for pt and that it is going to cost $124 up front for this visit. Spouse states he had a lung scan recently and did not have to pay anything. Per [facility], if scan is coded as outpatient diagnostic, if should be covered without any additional cost. Please clarify and call pt back at [phone] to advise. Malia Baeza - 12/24/2014 11:00 AM CDT Pt calling requesting to speak with a nurse regarding CT scan and bone density Ngozi Carlos - 12/24/2014 10:42 AM CDT Patient is checking with insurance to see if they will pay the $124 for this visit. Patient will call Radiology to schedule. documented in this encounter Plan of Treatment Not on filedocumented as of this encounter Visit Diagnoses Not on filedocumented in this encounter Care Teams Accounting Representative Relationship Specialty Start Date End Date Judy Sorensen MD PCP - General 12/18/10 05/02/18 [address] [place] [address] documented as of this encounter
--- OUTSIDE RECORDS SUMMARY | 2022-04-27 02:57 | XMS_ITS | Encounter Summary ---
:1940 Author Organization [employer] Address [address] [address] Care Team Providers Name Role Phone Judy Sorensen MD Primary Care Provider Encounter Details Date Type Department Care Team Description 02/09/2016 Refill Order [facility] Gwen Sorensen MD [address] [address] [place] [address] [phone] Social History Tobacco Use Types Packs/Day Years Used Date Smoking Tobacco: Never Assessed Sex Assigned at Date Recorded Not on file documented as of this encounter Nursing Notes User, Montezchapis - 02/10/2016 7:31 AM CDT ORDER THE FOLLOWING: - CR: Pended to encounter. - K: Pended to encounter. - NA: Pended to encounter. SCHEDULE THE FOLLOWING: - CR BY: Now (Due as of 12/18/2015 for chlorthalidone (HYGROTEN) 25 mg tablet) - K BY: Now (Due as of 12/18/2015 for chlorthalidone (HYGROTEN) 25 mg tablet) - NA BY: Now (Due as of 12/18/2015 for chlorthalidone (HYGROTEN) 25 mg tablet) - LAST QUALIFYING VISIT WITH JUDY GARCÍA: 04/28/2015 - NEXT SCHEDULED VISIT: None - NEXT LAB APPOINTMENT: None Powered by [employer], Reference: [id number], 02/09/2016 3:39:31 PM MURRAYTMarkos: KHLOE FP REFILL ([id number]) Lorene Becerra CMA - 02/10/2016 7:31 AM CDT Lab orders have been placed per protocol. ITE EXTERMINATOR HELPER documented in this encounter Plan of Treatment Not on filedocumented as of this encounter Visit Diagnoses Diagnosis Encounter for long-term (current) use of medications - Primary Encounter for long-term (current) use of other medications documented in this encounter Care Teams Bulk Pigment Reducer Relationship Specialty Start Date End Date Judy Sorensen MD PCP - General 12/18/10 05/02/18 [address] [place] [address] documented as of this encounter
--- OUTSIDE RECORDS SUMMARY | 2022-04-27 02:57 | XMS_ITS | Encounter Summary ---
:1940 Author Organization [employer] Address [address] [place] [address] Care Team Providers Name Role Phone Judy Sorensen MD Primary Care Provider Reason for Visit Reason Onset Date Comments Lab Questions 05/25/2016 Encounter Details Date Type Department Care Team Description 05/25/2016 Telephone [facility] Judy Christensen MD Lab Questions [address] [place] [address] [place], [place] [address] (Wo rk) Social History Tobacco Use Types Packs/Day Years Used Date Smoking Tobacco: Every Day Cigarettes 0.5 40 Smokeless Tobacco: Never Comments: Smoking History Packs/day: Alcohol Use Standard Drinks/Week Comments Yes 7 (1 standard drink = 0.6 oz pure alcoho l) Sex Assigned at Date Recorded Not on file documented as of this encounter Nursing Notes Ayesha Garcia LPN - 05/26/2016 5:21 PM CDT Patient message given. Judy Larsen MD - 05/26/2016 12:37 PM CDT Okay to delay long enough to have it done locally in [place]. Enma Jacob RN - 05/25/2016 12:37 PM CDT Reason for Call: PFT Next Steps: Document further recommendations and route to appropriate person or pool. Caller IS expecting a call back from Care Team. Additional Information: Spoke with pt. She is living in [place] and only place for PFT now is [facility]. She reports she was advised end of this month they will begin scheduling pt for this at . She would like to verify if provider feels it is ok to wait for this or if feels needs done now and should go to [facility]. Please advise. Lidia Riley - 05/25/2016 12:30 PM CDT Caller states she is to have a test done but not at [facility]. She is interested in having it done in [place], but it is a couple of weeks out. Pt wants to make sure it is ok to wait. documented in this encounter Plan of Treatment Not on filedocumented as of this encounter Visit Diagnoses Not on filedocumented in this encounter Care Teams Spike Maker Relationship Specialty Start Date End Date Judy Sorensen MD PCP - General 12/18/10 05/02/18 [address] [place] [address] documented as of this encounter
--- OUTSIDE RECORDS SUMMARY | 2022-04-27 02:57 | XMS_ITS | Encounter Summary ---
:1940 Author Organization [employer] Address [address] [place] [address] Care Team Providers Name Role Phone Judy Sorensen MD Primary Care Provider Encounter Details Date Type Department Care Team Description 06/13/[address] Scan Judy Sorensen [place] [address] [place] [place] [address] [place], [place] [phone] (Wo rk) Social History Tobacco Use Types [...] Name Priority Date/Time Associated Diagnosis Comme nts CT CHEST WO IV CONT Routine 06/13/2016 9:28 AM Personal histor y of Results for this LUNG SCREENING CDT nicotine dependence proced ure are in the results section. documented in this encounter Results CT Chest WO IV Cont Lung Screening (06/13/2016 9:28 AM CDT) Anatomical Region Laterality Modality Chest, Lung Computed Tomography Specimen (Source) Anatomical Collection Method Collection Time Re ceived Time Location / / Volume Laterality 06/13/2016 9:22 AM CDT Impressions 06/13/2016 9:52 AM CDT IMPRESSION: Stable findings in the chest. Narrative 06/13/2016 9:52 AM CDT COMPARISON: Chest CT scan 01/02/2015 TECHNIQUE: Images through the chest were obtained without contrast using a low dose lung screening technique. FINDINGS: Focal groundglass opacity appe ars stable in the right lower lobe on image 29. No acute infiltrates or suspicious pulmonary nodules. Focal lingular opacity unchanged on image 45. Left upper lobe nodule stable on image 32. Heart size normal. No pericardial or ple ural effusion. Calcified mitral annulus. Mediastinal and hilar structures grossly normal, with old granulomatous calcifications. Bony thorax unremarkable. There is limited visualization of the up per abdomen. Infrarenal abdominal aortic aneurysm is partially imaged. Procedure Note Curtis Verma MD - 06/13/2016Formatti ng of this note might be different from the original. COMPARISON: Chest CT scan 01/02/2015 TECHNIQUE: Images through the chest were obtained without contrast using a low dose lung screening technique. FINDINGS: Focal groundglass opacity appe ars stable in the right lower lobe on image 29. No acute infiltrates or suspicious pulmonary nodules. Focal lingular opacity unchanged on image 45. Left upper lobe nodule stable on image 32. Heart size normal. No pericardial or ple ural effusion. Calcified mitral annulus. Mediastinal and hilar structures grossly normal, with old granulomatous calcifications. Bony thorax unremarkable. There is limited visualization of the up per abdomen. Infrarenal abdominal aortic aneurysm is partially imaged. IMPRESSION IMPRESSION: Stable findings in the chest . Judy Sorensen MD RAD CT documented in this encounter Visit Diagnoses Diagnosis Personal history of nicotine dependence Personal history of tobacco use, present ing hazards to health documented in this encounter Care Teams Legal Service Specialist Relationship Specialty Start Date End Date Judy Sorensen MD PCP - General 12/18/10 05/02/18 [address] [place] [address] documented as of this encounter
--- OUTSIDE RECORDS SUMMARY | 2022-04-27 02:57 | XMS_ITS | Encounter Summary ---
:1940 Author Organization [employer] Address [address] [place] [address] Care Team Providers Name Role Phone Alethea Patterson MD Primary Care Provider [phone] Encounter Details Date Type Department Care Team Description 05/18/2016 Notes/Orders [facility] Perla Bowman To bacco use disorder (Primary Dx); Radiology R, RN Current smoker; [address] [place] [address] Social History Tobacco Use Types Packs/Day Years Used Date Smoking Tobacco: Every Day Cigarettes 0.5 40 Smokeless Tobacco: Never Comments: Smoking History Packs/day: Alcohol Use Standard Drinks/Week Comments Yes 7 (1 standard drink = 0.6 oz pure alcoho l) Sex Assigned at Date Recorded Not on file documented as of this encounter Progress Notes Judy Larsen MD - 06/20/2016 1:31 AM CDT Order signed, although I do not see any comment about an abnormality. It is reasonable to do an annual screen with current nicotine dependence and active smoking. ING PROCESS WORKER Perla Bowman, RN - 06/20/2016 1:31 AM CDT Pt had CT lung screen in December 2014. At that time the radiologist recommended a follow-up CT lung screen in 12 months. Order pended and routed to physician to be signed. Once order signed, pt will be notified to schedule scan. ING PROCESS WORKER documented in this encounter Plan of Treatment Not on filedocumented as of this encounter Results CT Chest WO IV [...] documented in this encounter Visit Diagnoses Diagnosis Tobacco use disorder (HRC) - Primary Tobacco use disorder Current smoker (HRC) Tobacco use disorder Personal history of nicotine dependence Personal history of tobacco use, present ing hazards to health Personal history of nicotine dependence Personal history of tobacco use, present ing hazards to health documented in this encounter Care Teams Amusement Centre Manager Relationship Specialty Start Date End Date Alethea Patterson MD PCP - General Family Practice 01/02/[address] [place] [address] documented as of this encounter
--- OUTSIDE RECORDS SUMMARY | 2022-04-27 02:57 | XMS_ITS | Encounter Summary ---
:1940 Author Organization [facility] Address [address] [place] [address] Care Team Providers Name Role Phone Judy Sorensen MD Primary Care Provider Encounter Details Date Type Department Care Team Description 01/02/[address] [address] Scan Tobacco use disorder [address] [place], [place] [address] Social History Tobacco Use Types Packs/Day Years Used Date Smoking Tobacco: Never Assessed Sex Assigned at Date Recorded Not on file documented as of this encounter Plan of Treatment Not on filedocumented as of this encounter Procedures Procedure Name Priority Date/Time Associated Diagnosis Comme nts CT CHEST WO IV CONT Routine 01/02/2015 9:43 AM Tobacco use dis order Results for this LUNG SCREENING CDT procedure are in the results section. documented in this encounter Results CT Chest WO IV Cont Lung Screening (01/02/2015 9:43 AM CDT) Anatomical Region Laterality Modality Chest, Lung Other Specimen (Source) Anatomical Location Collection Method / Collectio n Time Received Time / Laterality Volume Impressions 01/02/2015 10:19 AM CDT IMPRESSION: 1. Old granulomatous disease. 2. Minimal groundglass infiltrate right upper lobe posteriorly of questionable significance. This is not suspicious. Narrative 01/02/2015 10:19 AM CDT COMPARISON: None. TECHNIQUE: Images through the chest were obtained without contrast using a low dose lung screening technique. FINDINGS: Calcified lymph nodes right hi lum. Mitral annulus calcification. Calcification of the aorta. Calcified granulomata in the spleen. No suspicious pulmonary nodules or masses. Minimal groundglass infiltrate right upper lobe posteriorly on slice 31 of 65. Minimal fibrotic changes in the lingula on slice 43. No suspicious adenopathy. Procedure Note Allen Clark MD - 03/06/2016Format ting of this note might be different from the original. COMPARISON: None. TECHNIQUE: Images through the chest were obtained without contrast using a low dose lung screening technique. FINDINGS: Calcified lymph nodes right hi lum. Mitral annulus calcification. Calcification of the aorta. Calcified granulomata in the spleen. No suspicious pulmonary nodules or masses. Minimal groundglass infiltrate right upper lobe posteriorly on slice 31 of 65. Minimal fibrotic changes in the lingula on slice 43. No suspicious adenopathy. IMPRESSION IMPRESSION: 1. Old granulomatous disease. 2. Minimal groundglass infiltrate right upper lobe posteriorly of questionable significance. This is not suspicious. Judy Sorensen MD RAD CT documented in this encounter Visit Diagnoses Diagnosis Tobacco use disorder (HRC) Tobacco use disorder documented in this encounter Care Teams Ag Service Manager Relationship Specialty Start Date End Date Judy Sorensen MD PCP - General 12/18/10 05/02/18 [address] [place] [address] documented as of this encounter
--- OUTSIDE RECORDS SUMMARY | 2022-04-27 02:57 | XMS_ITS | Encounter Summary ---
:1940 Author Organization [employer] Address [address] [place] [address] Care Team Providers Name Role Phone Judy Sorensen MD Primary Care Provider Reason for Visit Reason Comments Appt. Scheduled Encounter Details Date Type Department Care Team Description 12/30/2014 Telephone [facility] Gwen Sorensen MD Appt. Scheduled Medicine [address] [address] [place] [address] [place] [address] [phone] Social History Tobacco Use Types Packs/Day Years Used Date Smoking Tobacco: Never Assessed Sex Assigned at Date Recorded Not on file documented as of this encounter Plan of Treatment Not on filedocumented as of this encounter Visit Diagnoses Not on filedocumented in this encounter Care Teams Process Control Board Operator Relationship Specialty Start Date End Date Judy Sorensen MD PCP - General 12/18/10 05/02/18 [address] [place] [address] documented as of this encounter
--- OUTSIDE RECORDS SUMMARY | 2022-04-27 02:57 | XMS_ITS | Encounter Summary ---
:1940 Author Organization [employer] Address [address] [place] [address] Care Team Providers Name Role Phone Judy Sorensen MD Primary Care Provider Reason for Visit Procedure/Equipment (Routine) - Incomplete Specialty Diagnoses / Procedures Referred By Contact Refer red To Contact Diagnoses Visit for screening Judy Sorensen MD Procedures MM Mammogram Screening Bilat W CAD [address] [place] [place] [address] Referral ID Status Reason Start Date Expiration Date Visits V isits Requested Authorized [id number] Incomplete 02/06/2017 05/08/2018 1 1 Encounter Details Date Type Department Care Team Description 02/10/2017 Imaging [facility] Judy Sorensen MD Visit for screening [address] [place] [address] [place], [place] [phone] (Wo rk) Social History Tobacco Use Types [...] Associated Diagnosis Comme nts MM MAMMOGRAM Routine 02/10/2017 10:50 AM Visit for screening R esults for this SCREENING BILAT W CDT procedure are in CAD the results section. documented in this encounter Results (ABNORMAL) MM Mammogram Screening Bilat W CAD (02/10/2017 10:50 AM CDT) Anatomical Region Laterality Modality Breast Bilateral Mammography Specimen (Source) Anatomical Location Collection Method / Collectio n Time Received Time / Laterality Volume Impressions 02/10/2017 11:17 AM CDT : ACR BI-RADS Category 0: Need Additional Imaging Evaluation RECOMMENDATION: Additional Mammographic Images and Ultrasound of the right breast. The results and recommendations of this examination will be communicated to the patient and the imaging center wi ll attempt to schedule any recommended follow up with the patient. Narrative 02/10/2017 11:17 AM CDT MM MAMMOGRAM SCREENING BILAT W CAD perfo rmed on 02/10/17 Compared to: 08/18/2015 MM Mammogram Scr eening Bilat W CAD, 04/01/2014 MM Mammogram Screening Bilat W CAD, and MM Mammogram Screening Bilat W CAD FINDINGS: Bilateral screening mammogram was performed with the assistance of Computer-Aided Detection. The breasts have scattered areas of fibroglandular density. There is an asymmetry in the right breas t at the 8 o'clock position at posterior depth. The remainder of the breast tissue is un remarkable. Judy Sorensen MD RAD [facility] documented in this encounter Visit Diagnoses Diagnosis Visit for screening Screening for unspecified condition documented in this encounter Care Teams Panelboard Operator Relationship Specialty Start Date End Date Judy Sorensen MD PCP - General 12/18/10 05/02/18 [address] [place] [address] documented as of this encounter
--- OUTSIDE RECORDS SUMMARY | 2022-04-27 02:57 | XMS_ITS | Encounter Summary ---
:1940 Author Organization [email or web address] Address [address], [place] [address] Care Team Providers Name Role Phone Judy Sorensen MD Primary Care Provider Reason for Visit Reason Comments Refill ranitidine (ZANTAC) 300 MG t ablet [Pharmacy Med Name: RANITIDINE 300MG] Encounter Details Date Type Department Care Team Description 06/21/2016 Refill [facility] Gwen Sorensen MD Refill (ranitidine Medicine [address] (ZANTAC) 300 MG tablet [address] [place], [place] [Pharmacy Med Name: [place] [address] RANITIDINE 300MG]) [phone] (Wo rk) Social History Tobacco Use Types Packs/Day Years Used Date Smoking Tobacco: Every Day Cigarettes 0.5 40 Smokeless Tobacco: Never Comments: Smoking History Packs/day: Alcohol Use Standard Drinks/Week Comments Yes 7 (1 standard drink = 0.6 oz pure alcoho l) Sex Assigned at Date Recorded Not on file documented as of this encounter Nursing Notes Cade Huff, RN - 06/22/2016 2:54 PM CDT Renewed medication per medication refill protocol. Requested Prescriptions Signed Prescriptions Disp Refills ??? ranitidine (ZANTAC) 300 MG tablet 90 Tab 3 Sig: TAKE ONE TABLET AT BEDTIME NEEDED FOR HEARBURN Authorizing Provider: JUDY GARCÍA Ordering User: CADE HUFF Interface, Out JRKICKZ Prov Query - 06/21/2016 10:11 AM CDT ranitidine (ZANTAC) 300 MG tablet [Pharmacy Med Name: RANITIDINE 300MG] - MEDICATION STARTED: 05/04/2011 - LAST REFILLED ON: 03/23/2016, QTY: 90, Refills: 0, Sig: take 1 tablet by mouth at bedtime as needed for heartburn. (changed) - WARNING: This medication may not have been authorized by the requested provider. - REFILL: 12 months (if warnings resolved; manual update required, due to unreadable sig) - RATIONALE: This refill should last until the patient is due for an office visit. - LAST QUALIFYING VISIT WITH JUDY GARCÍA: 05/17/2016 - NEXT SCHEDULED VISIT: None Powered by [employer], Reference: [id number], 06/21/2016 10:11:35 AM CDT, Pool: KHLOE FP REFILL ([id number]) documented in this encounter Plan of Treatment Not on filedocumented as of this encounter Visit Diagnoses Not on filedocumented in this encounter Care Teams Rate Inserter Relationship Specialty Start Date End Date Judy Sorensen MD PCP - General 12/18/10 05/02/18 [address] [place], [place] [address] documented as of this encounter
--- OUTSIDE RECORDS SUMMARY | 2022-04-27 02:57 | XMS_ITS | Encounter Summary ---
:1940 Author Organization [employer] Address [address] [place] [address] Care Team Providers Name Role Phone Judy Sorensen MD Primary Care Provider Encounter Details Date Type Department Care Team Description 05/17/2016 Imaging [facility] Abnormal weight loss [address] [place], [place] [id number] Social History Tobacco Use Types Packs/Day Years [...] Name Priority Date/Time Associated Diagnosis Comme nts XR CHEST 2 VIEWS Routine 05/17/2016 1:15 PM Abnormal weight lo ss Results for this CDT procedure are i n the results section. documented in this encounter Results XR Chest 2 Views (05/17/2016 1:15 PM CDT) Anatomical Region Laterality Modality Chest, Lung Other Specimen (Source) Anatomical Location Collection Method / Collectio n Time Received Time / Laterality Volume Narrative 05/17/2016 1:21 PM CDT COMPARISON: ??Chest CT scan 01/02/2015 FINDINGS: ??The lungs are hyperinflated but appear clear of acute process. Heart size normal, with calcified mitral annulus. Procedure Note Curtis Verma MD - 05/19/2016Formatti ng of this note might be different from the original. COMPARISON: Chest CT scan 01/02/2015 FINDINGS: The lungs are hyperinflated bu t appear clear of acute process. Heart size normal, with calcified mitral annulus. Judy Sorensen MD RAD [facility] documented in this encounter Visit Diagnoses Diagnosis Abnormal weight loss Loss of weight documented in this encounter Care Teams Material Inspector Relationship Specialty Start Date End Date Judy Sorensen MD PCP - General 12/18/10 05/02/18 [address] [employer] [place] [address] documented as of this encounter
--- OUTSIDE RECORDS SUMMARY | 2022-04-27 02:57 | XMS_ITS | Encounter Summary ---
:1940 Author Organization [employer] Address [address], [place] [address] Care Team Providers Name Role Phone Judy Sorensen MD Primary Care Provider Reason for Visit Reason Comments Refill Encounter Details Date Type Department Care Team Description 02/09/2016 Refill [facility] Judy Christensen MD Refill [address] [place] [address] [place], [place] [address] (Wo rk) Social History Tobacco Use Types Packs/Day Years Used Date Smoking Tobacco: Never Assessed Sex Assigned at Date Recorded Not on file documented as of this encounter Nursing Notes User, Ref[employer]izard - 02/09/2016 4:22 PM CDT 1) atorvastatin (LIPITOR) 40 mg tablet - MEDICATION STARTED: 10/16/2013 - LAST REFILLED ON: 12/23/2014, QTY: 90, Refills: 3, Sig: take 1 tablet by mouth daily (every 24 hours). (unchanged) - REFILL: 3 months - RATIONALE: This refill should last until the patient is due for an office visit. - LAST QUALIFYING VISIT WITH JUDY GARCÍA: 04/28/2015 - NEXT SCHEDULED VISIT: None ADDITIONAL SCHEDULING ACTIONS TAKEN: - CR for chlorthalidone (HYGROTEN) 25 mg tablet (Sent to [facility]) - K for chlorthalidone (HYGROTEN) 25 mg tablet (Sent to [facility]) - NA for chlorthalidone (HYGROTEN) 25 mg tablet (Sent to [facility]) Powered by [employer], Reference: [id number], 02/09/2016 3:39:30 PM CDT, Pool: [facility] FP REFILL ([id number]) 2) chlorthalidone (HYGROTEN) 25 mg tablet - MEDICATION STARTED: 09/19/2012 - LAST REFILLED ON: 12/23/2014, QTY: 90, Refills: 3, Sig: take 1 tablet by mouth daily (every 24 hours). (unchanged) - REFILL: 3 months - RATIONALE: This is a courtesy refill. Patient is overdue for a(n) Cr check, K check and Na check. This will be the last refill authorized by the protocol. - LAST QUALIFYING VISIT WITH JUDY GARCÍA M: 04/28/2015 - NEXT SCHEDULED VISIT: None - SBP: 112.0mm Hg on 04/28/2015 - DBP: 82.0mm Hg on 04/28/2015 - Cr: 0.8mg/dL on 12/23/2014 - Na: 141.0mEq/L on 12/23/2014 - K: 3.6mEq/L on 12/23/2014 ADDITIONAL SCHEDULING ACTIONS TAKEN: - CR for chlorthalidone (HYGROTEN) 25 mg tablet (Sent to [facility]) - K for chlorthalidone (HYGROTEN) 25 mg tablet (Sent to [facility]) - NA for chlorthalidone (HYGROTEN) 25 mg tablet (Sent to [facility]) Powered by [employer], Reference: [id number], 02/09/2016 3:39:30 PM CDT, Markos: [facility] FP REFILL ([id number]) Ese Degroot RN - 02/09/2016 4:22 PM CDT Renewed medication per medication refill protocol. Requested Prescriptions Signed Prescriptions Disp Refills ??? chlorthalidone (HYGROTEN) 25 mg tablet 90 tablet 0 Sig: Take 1 tablet by mouth daily (every 24 hours). Authorizing Provider: JUDY GARCÍA Ordering User: ESE DEGROOT ??? atorvastatin (LIPITOR) 40 mg tablet 90 tablet 0 Sig: Take 1 tablet by mouth daily (every 24 hours). Authorizing Provider: JUDY GARCÍA Ordering User: ESE DEGROOT [facility] [employer] documented in this encounter Plan of Treatment Not on filedocumented as of this encounter Visit Diagnoses Not on filedocumented in this encounter Care Teams Cutting And Printing Machine Operator Relationship Specialty Start Date End Date Judy Sorensen MD PCP - General 12/18/10 05/02/18 [address] [place] [address] documented as of this encounter
--- OUTSIDE RECORDS SUMMARY | 2022-04-27 02:57 | XMS_ITS | Encounter Summary ---
:1940 Author Organization [employer] Address [address] [place] [address] Care Team Providers Name Role Phone Judy Sorensen MD Primary Care Provider Encounter Details Date Type Department Care Team Description 04/28/2015 Imaging [facility] Postmenopausal vaginal [address] [facility] [place] [address] Social History Tobacco Use Types Packs/Day Years Used Date Smoking Tobacco: Never Assessed Sex Assigned at Date Recorded Not on file documented as of this encounter Plan of Treatment Not on filedocumented as of this encounter Procedures Procedure Name Priority Date/Time Associated Diagnosis Comme nts US PELVIC COMPLETE Routine 04/28/2015 10:11 Postmenopausal vag inal Results for this W EV AM CDT bleeding procedure are i n the results section. documented in this encounter Results US Pelvic Complete W EV (04/28/2015 10:11 AM CDT) Anatomical Region Laterality Modality Pelvis Other Specimen (Source) Anatomical Location Collection Method / Collectio n Time Received Time / Laterality Volume Impressions 04/28/2015 10:22 AM CDT IMPRESSION: 1. The endometrium is normal in appearan ce without thickening at 3 mm. Minimal amount of fluid is seen in the endometrial cavity. 2. Nonvisualization of the ovaries. Narrative 04/28/2015 10:22 AM CDT COMPARISON: ??None. HISTORY: Assess endometrial thickness. S cant amount of discharge tinged with blood. TECHNIQUE: ??Transabdominal and transvag inal imaging was performed. FINDINGS: ?? Uterus: Measures 5.6 x 2.9 x 3.6 cm. The re are no focal myometrial lesions. Endometrium: Measures up to 0.3 cm in th ickness. Minimal anechoic simple fluid is seen in the endometrial cavity. Right Ovary: Not seen. Left Ovary: Not seen. Free Fluid: No significant free fluid. There are no suspicious adnexal masses. Procedure Note Jose Quezada MD - 03/06/2016Formatti ng of this note might be different from the original. COMPARISON: None. HISTORY: Assess endometrial thickness. S cant amount of discharge tinged with blood. TECHNIQUE: Transabdominal and transvagin al imaging was performed. FINDINGS: Uterus: Measures 5.6 x 2.9 x 3.6 cm. The re are no focal myometrial lesions. Endometrium: Measures up to 0.3 cm in th ickness. Minimal anechoic simple fluid is seen in the endometrial cavity. Right Ovary: Not seen. Left Ovary: Not seen. Free Fluid: No significant free fluid. There are no suspicious adnexal masses. IMPRESSION IMPRESSION: 1. The endometrium is normal in appearan ce without thickening at 3 mm. Minimal amount of fluid is seen in the endometrial cavity. 2. Nonvisualization of the ovaries. Judy Sorensen MD [facility] documented in this encounter Visit Diagnoses Diagnosis Postmenopausal vaginal bleeding Postmenopausal bleeding documented in this encounter Care Teams Gift Manager Relationship Specialty Start Date End Date Judy Sorensen MD PCP - General 12/18/10 05/02/18 [address] [place] [address] documented as of this encounter
--- OUTSIDE RECORDS SUMMARY | 2022-04-27 02:57 | XMS_ITS | Encounter Summary ---
:1940 Author Organization [facility] Address [address] [address] Care Team Providers Name Role Phone Judy Sorensen MD Primary Care Provider Reason for Visit Procedure/Equipment (Routine) - Incomplete Specialty Diagnoses / Procedures Referred By Contact Refer red To Contact Diagnoses Abnormal finding on breast imaging Judy Sorensen MD Procedures [facility] Mammogram Diag [address] [place] [address] Referral ID Status Reason Start Date Expiration Date Visits V isits Requested Authorized [id number] Incomplete 02/10/2017 05/12/2018 1 1 Encounter Details Date Type Department Care Team Description 02/16/2017 Imaging [place] [address] Sidney Sorensen MD Abnormal finding on Mammography [address] [employer] [facility] breast imaging [address] [place] [address] [address] [address] [place] [address] [phone] Social History Tobacco Use Types Packs/Day Years [...] Name Priority Date/Time Associated Diagnosis Comme nts [facility] MAMMOGRAM DIAG Routine 02/16/2017 10:17 AM Abnormal findin g on Results for this RT W 3D LALA CDT breast imaging procedure are in the results section. documented in this encounter Results [facility] US Breast Rt (02/16/2017 10:36 AM CDT) Anatomical Region Laterality Modality Breast Right Ultrasound Specimen (Source) Anatomical Collection Method Collection Time Re ceived Time Location / / Volume Laterality 02/16/2017 10:35 AM CDT Impressions 02/16/2017 2:01 PM CDT IMPRESSION: ??ACR BI-RADS CATEGORY 3: ?? Probably benign. Narrative 02/16/2017 2:01 PM CDT HISTORY: call back COMPARISON: Mammogram dated 02/10/2017, 1 10/19/2014 and 03/22/2014. ? FINDINGS: Right CC and MLO C-Views with CAD and tomosynthesis. There are scattered areas of fibroglandular density. The possible asymmetry at the 8:00 position of the right breast posteriorly persists. Right breast ultrasound at the 8:30 posi tion 8-9 cm from the nipple shows an oval hypoechoic 0.6 x 0.3 x 0.6 cm lesion with an echogenic center suggesting a lymph node with a fatty hilum. This may corre late with the mammogram finding. During real-time imaging there is no suspicious abnormality in the lateral right breast to correlate with mammogram finding. At the 9:30 position, 2 cm from the nipple i s a hypoechoic 0.8 cm area that during r eal-time imaging does not appear masslike and may blend in with adjacent parenchyma on oblique views. No mammogram findings correlate with this area. ?? RECOMMENDATIONS: The results were discus sed with the patient. Further evaluation with 6 month diagnostic follow-up versus biopsy of the mammogram finding and the ultrasound finding at the 9:30 position was discussed with the patient. Six-shivam h diagnostic mammogram and breast ultrasound follow-up is recommended. The [facility] will att empt to schedule the recommended follow up with the patient. ??If the patient develops new symptoms such as a new palpable lump, skin changes or nipple discharge, evaluation at that time is recommended. ?? Procedure Note Jose Bruno MD - 02/16/2017Format ting of this note might be different from the original. HISTORY: call back COMPARISON: Mammogram dated 02/10/2017, 1 10/19/2014 and 03/22/2014. FINDINGS: Right CC and MLO C-Views with CAD and tomosynthesis. There are scattered areas of fibroglandular density. The possible asymmetry at the 8:00 position of the right breast posteriorly persists. Right breast ultrasound at the 8:30 posi tion 8-9 cm from the nipple shows an oval hypoechoic 0.6 x 0.3 x 0.6 cm lesion with an echogenic center suggesting a lymph node with a fatty hilum. This may correlate with the mammogram finding. During real-time imag ing there is no suspicious abnormality in the lateral right breast to correlate with mammogram finding. At the 9:30 position, 2 cm from the nipple is a hypoechoic 0.8 cm area that during real-time imaging does not appear masslike and may blend in with adjacent parenchyma on oblique views. No mammogram findings correlate with this area. RECOMMENDATIONS: The results were discus sed with the patient. Further evaluation with 6 month diagnostic follow-up versus biopsy of the mammogram finding and the ultrasound finding at the 9:30 position was discussed with the patient. Six-month di agnostic mammogram and breast ultrasound follow-up is recommended. The [facility] will att empt to schedule the recommended follow up with the patient. If the patient develops new symptoms such as a new palpable lump, skin changes or nipple discharge, evaluation at that time is recommended. IMPRESSION IMPRESSION: ACR BI-RADS CATEGORY 3: Prob ably benign. Judy Sorensen MD RAD [facility] Mammogram Diag [address] (02/16/2017 10:17 AM CDT) Anatomical Region Laterality Modality Breast Right Mammography Specimen (Source) Anatomical Collection Method Collection Time Re ceived Time Location / / Volume Laterality 02/16/2017 10:11 AM CDT Impressions 02/16/2017 2:01 PM CDT IMPRESSION: ??ACR BI-RADS CATEGORY 3: ?? Probably benign. Narrative 02/16/2017 2:01 PM CDT HISTORY: call back COMPARISON: Mammogram dated 02/10/2017, 1 10/19/2014 and 03/22/2014. ? FINDINGS: Right CC and MLO C-Views with CAD and tomosynthesis. There are scattered areas of fibroglandular density. The possible asymmetry at the 8:00 position of the right breast posteriorly persists. Right breast ultrasound at the 8:30 posi tion 8-9 cm from the nipple shows an oval hypoechoic 0.6 x 0.3 x 0.6 cm lesion with an echogenic center suggesting a lymph node with a fatty hilum. This may corre late with the mammogram finding. During real-time imaging there is no suspicious abnormality in the lateral right breast to correlate with mammogram finding. At the 9:30 position, 2 cm from the nipple i s a hypoechoic 0.8 cm area that during r eal-time imaging does not appear masslike and may blend in with adjacent parenchyma on oblique views. No mammogram findings correlate with this area. ?? RECOMMENDATIONS: The results were discus sed with the patient. Further evaluation with 6 month diagnostic follow-up versus biopsy of the mammogram finding and the ultrasound finding at the 9:30 position was discussed with the patient. Six-shivam h diagnostic mammogram and breast ultrasound follow-up is recommended. [facility] will att empt to schedule the recommended follow up with the patient. ??If the patient develops new symptoms such as a new palpable lump, skin changes or nipple discharge, evaluation at that time is recommended. ?? Procedure Note Jose Bruno MD - 02/16/2017Format ting of this note might be different from the original. HISTORY: call back COMPARISON: Mammogram dated 02/10/2017, 10/19/2014 and 03/22/2014. FINDINGS: Right CC and MLO C-Views with CAD and tomosynthesis. There are scattered areas of fibroglandular density. The possible asymmetry at the 8:00 position of the right breast posteriorly persists. Right breast ultrasound at the 8:30 posi tion 8-9 cm from the nipple shows an oval hypoechoic 0.6 x 0.3 x 0.6 cm lesion with an echogenic center suggesting a lymph node with a fatty hilum. This may correlate with the mammogram finding. During real-time imag ing there is no suspicious abnormality in the lateral right breast to correlate with mammogram finding. At the 9:30 position, 2 cm from the nipple is a hypoechoic 0.8 cm area that during real-time imaging does not appear masslike and may blend in with adjacent parenchyma on oblique views. No mammogram findings correlate with this area. RECOMMENDATIONS: The results were discus sed with the patient. Further evaluation with 6 month diagnostic follow-up versus biopsy of the mammogram finding and the ultrasound finding at the 9:30 position was discussed with the patient. Six-month di agnostic mammogram and breast ultrasound follow-up is recommended. The [facility] will att empt to schedule the recommended follow up with the patient. If the patient develops new symptoms such as a new palpable lump, skin changes or nipple discharge, evaluation at that time is recommended. IMPRESSION IMPRESSION: ACR BI-RADS CATEGORY 3: Prob ably benign. Judy Sorensen MD [facility] documented in this encounter Visit Diagnoses Diagnosis Abnormal finding on breast imaging Other (abnormal) findings on radiologica l examination of breast Abnormal finding on breast imaging Other (abnormal) findings on radiologica l examination of breast documented in this encounter Care Teams Inspector Aide Relationship Specialty Start Date End Date Judy Sorensen MD PCP - General 12/18/10 05/02/18 [address] [place] [address] documented as of this encounter
--- OUTSIDE RECORDS SUMMARY | 2022-04-27 02:57 | XMS_ITS | Encounter Summary ---
:1940 Author Organization [employer] Address [address] [place] [address] Care Team Providers Name Role Phone Judy Sorensen MD Primary Care Provider Encounter Details Date Type Department Care Team Description 05/17/2016 Lab Visit [facility] Abnormal weight loss; [address] [employer] Essential hypertension; [place] [address] Screening cholesterol level [phone] Social History Tobacco Use Types Packs/Day Years [...] Name Priority Date/Time Associated Diagnosis Comme nts THYROID STIMULATING Routine 05/17/2016 1:07 Abnormal weight l oss Results for this HORMONE PM CDT procedure are i n the results section. LIPID PANEL AND Routine 05/17/2016 1:07 PM Screening cholester ol Results for this DIRECT LDL(IF CDT level procedure are in NEEDED) the results section. BASIC METABOLIC Routine 05/17/2016 1:07 PM Essential Result s for this PANEL CDT hypertension procedure are i n the results section. COMPLETE BLOOD Routine 05/17/2016 1:07 PM Abnormal weight loss Results for this COUNT-NO DIFF CDT procedure are in the results section. ALT (SGPT) Routine 05/17/2016 1:07 PM Abnormal weight loss R esults for this CDT procedure are i n the results section. documented in this encounter Results Lipid Panel and Direct LDL(If Needed) (05/17/2016 1:07 PM CDT) Patholo gist Method Time Signature Cholesterol 161 0 - 199 HP CONVERSION mg/dL Triglycerides 79 4 - 149 HP CONVERSION mg/dL HDL Cholesterol 59 >39 mg/dL HP CONVERSION Cholesterol/HDL 2.7 HP CONVERSION Ratio Screen LDL Calculated 86 19 - 130 HP CONVERSION mg/dL Length Of Fast =12.0+ HP CONVERSION Specimen Anatomical Collection Method Collection Time Receive d Time (Source) Location / / Volume Laterality 05/17/2016 1:07 PM 6 1:07 CDT PM CDT Narrative HP CONVERSION - 05/17/2016 2:40 PM CDT Performed at [facility], [address] [place] [address] CLIA number [id number] uJdy Sorensen MD LAB_1 Performing Organization Address City/State/ZIP Code Phon e Number HP CONVERSION (ABNORMAL) Basic Metabolic Panel (05/17/2016 1:07 PM CDT) P athologist Signature Creatinine 0.90 0.55 - HP CONVERSION Serum 1.02 mg/dL Lab Glucose 89 60 - 100 HP CONVERSION mg/dL CO2 36 (H) 22 - 31 HP CONVERSION mmol/L Chloride 98 98 - 107 HP CONVERSION mmol/L Potassium 4.5 3.5 - 5.2 HP CONVERSION mmol/L Sodium 141 136 - 145 HP CONVERSION mmol/L Blood Urea 17 9 - 26 HP CONVERSION Nitrogen mg/dL Calcium 9.7 8.4 - 10.2 HP CONVERSION mg/dL Est GFR >60 >60 HP CONVERSION Am mL/min/1.7 3m2 Est GFR Non-Afr >60 >60 HP CONVERSION Am mL/min/1.7 3m2 Comment: Normal>60, moderate decrease 30 - 59, se james decrease 15 - 29, renal failure <15 mL/min/1.73 m2 NOTE: ??Choose the eGFR result above johanne ropriate for the race of the patient. Specimen Anatomical Collection Method Collection Time Receive d Time (Source) Location / / Volume Laterality 05/17/2016 1:07 PM 6 1:07 CDT PM CDT Narrative HP CONVERSION - 05/17/2016 2:40 PM CDT Performed at [facility], [address] [place] [address] CLIA number [id number] Judy Sorensen MD LAB_1 Performing Organization Address [facility] Phon e Number HP CONVERSION Complete Blood Count-No Diff (05/17/2016 1:07 PM CDT) athologist Signature White Blood Cell 8.5 3.8 - 11.0 HP CONVERSIO N Count k/cmm Red Blood Cell 4.91 3.70 - HP CONVERSION Count 5.20 m/cmm Hemoglobin 14.4 11.8 - HP CONVERSION 15.5 g/dL Hematocrit 44.5 35.0 - HP CONVERSION 46.0 % Mean Corpuscular 90.6 80.0 - HP CONVERSION Volume 100.0 fL RDW 13.7 11.0 - HP CONVERSION 15.0 % Platelet Count 177 140 - 450 HP CONVERSION k/cmm Specimen Anatomical Collection Method Collection Time Receive d Time (Source) Location / / Volume Laterality 05/17/2016 1:07 PM 6 1:07 CDT PM CDT Narrative HP CONVERSION - 05/17/2016 1:20 PM CDT Performed at [facility], [address] [place] [address] CLIA number [id number] Judy Sorensen MD LAB_1 Performing Organization Address [facility] Phon e Number HP CONVERSION ALT (SGPT) (05/17/2016 1:07 PM CDT) [facility] gist Method Time Signature Alanine 10 9 - 55 HP CONVERSION Aminotransferase U/L Specimen Anatomical Collection Method Collection Time Receive d Time (Source) Location / / Volume Laterality 05/17/2016 1:07 PM 6 1:07 CDT PM CDT Narrative HP CONVERSION - 05/17/2016 2:40 PM CDT Performed at [facility], [address] [place] [address] CLIA number [id number] Judy Sorensen MD LAB_1 Performing Organization Address City/[facility] Phon e Number HP CONVERSION Thyroid Stimulating Hormone (05/17/2016 1:07 PM CDT) P athologist Signature Thyroid 1.02 0.20 - HP CONVERSION Stimulating 4.50 Hormone uIU/mL Specimen Anatomical Collection Method Collection Time Receive d Time (Source) Location / / Volume Laterality 05/17/2016 1:07 PM 6 4:45 CDT PM CDT Narrative HP CONVERSION - 05/17/2016 5:23 PM CDT Performed at [facility], [address] [place] [address] CLIA number [id number] Judy Sorensen MD LAB_1 Performing Organization Address City/State/ZIP Code Phon e Number HP CONVERSION documented in this encounter Visit Diagnoses Diagnosis Abnormal weight loss Loss of weight Essential hypertension ([facility]) Unspecified essential hypertension Screening cholesterol level Screening for lipoid disorders documented in this encounter Care Teams Class 1 Owner Operator Relationship Specialty Start Date End Date Judy Sorensen MD PCP - General 12/18/10 05/02/18 [address] [place] [address] documented as of this encounter
--- OUTSIDE RECORDS SUMMARY | 2022-04-27 02:57 | XMS_ITS | Encounter Summary ---
:[address] [facility] Address [address] [place] [address] Care Team Providers Name Role Phone Judy Sorensen MD Primary Care Provider Reason for Visit Reason Comments Refill Encounter Details Date Type Department Care Team Description 05/05/[address] [facility] Judy Christensen MD Refill [address] [place] [address] [place], [place] [id number] (Wo rk) Social History Tobacco Use Types Packs/Day Years Used Date Smoking Tobacco: Never Assessed Sex Assigned at Date Recorded Not on file documented as of this encounter Nursing Notes User, Refillwizachapis - 05/06/2016 11:26 AM CDT 1) atenolol (TENORMIN) 25 mg tablet - MEDICATION STARTED: 05/04/2011 - LAST REFILLED ON: 02/16/2015, QTY: 90, Refills: 3, Sig: take 1 tablet by mouth daily (every 24 hours). (unchanged) - REFILL: 3 months - RATIONALE: This is a courtesy refill. Patient is overdue for an office visit. This will be the last refill authorized by the protocol. - LAST QUALIFYING VISIT WITH JUDY LASREN: 04/28/2015 - NEXT SCHEDULED VISIT: None - SBP: 112mm Hg on 04/28/2015 - DBP: 82mm Hg on 04/28/2015 ADDITIONAL SCHEDULING ACTIONS TAKEN: - CR for chlorthalidone (HYGROTEN) 25 mg tablet (Sent to [facility]) - K for chlorthalidone (HYGROTEN) 25 mg tablet (Sent to [facility]) - NA for chlorthalidone (HYGROTEN) 25 mg tablet (Sent to [facility]) Powered by [employer], Reference: [id number], 05/05/2016 10:51:58 AM CDT, Pool: KHLOE FP REFILL ([id number]) 2) atorvastatin (LIPITOR) 40 mg tablet - MEDICATION STARTED: 10/16/2013 - LAST REFILLED ON: 02/09/2016, QTY: 90, Refills: 0, Sig: take 1 tablet by mouth daily (every 24 hours). (unchanged) - REFILL: 3 months - RATIONALE: This is a courtesy refill. Patient is overdue for an office visit. This will be the last refill authorized by the protocol. - LAST QUALIFYING VISIT WITH JUDY LARSEN M: 04/28/2015 - NEXT SCHEDULED VISIT: None ADDITIONAL SCHEDULING ACTIONS TAKEN: - CR for chlorthalidone (HYGROTEN) 25 mg tablet (Sent to [facility]) - K for chlorthalidone (HYGROTEN) 25 mg tablet (Sent to [facility]) - NA for chlorthalidone (HYGROTEN) 25 mg tablet (Sent to [facility]) Powered by [employer], Reference: [id number], 05/05/2016 10:51:58 AM CDT, Pool: KHLOE VICTOR REFILL ([id number]) LLITE PROJECT SITE MONITOR Cade Huff, RN - 05/05/2016 12:06 PM CDT OFFICE APPOINTMENT NEEDED Please notify patient to schedule an appointment within 30 days. Requested Prescriptions Signed Prescriptions Disp Refills ??? atenolol (TENORMIN) 25 mg tablet 90 tablet 0 Sig: Take 1 tablet by mouth daily (every 24 hours). Authorizing Provider: JUDY LARSEN Ordering User: CADE HUFF ??? atorvastatin (LIPITOR) 40 mg tablet 90 tablet 0 Sig: Take 1 tablet by mouth daily (every 24 hours). Authorizing Provider: JUDY LARSEN Ordering User: CADE HUFF documented in this encounter Miscellaneous Notes Letter - Judy Larsen MD - 05/05/2016 12:00 AM CDT Images from the original note were not included. [facility] Sol Oliva [address] [place] [address] May 06, 2016 Dear Sol Oliva, We recently received a renewal request for your prescription(s). While reviewing your chart, we noticed that you are due for a visit with your doctor. To receive future refills, please schedule an office visit within the next month. At [facility], your health care is important to us. Please call [phone] to schedule an appointment. Thank you for choosing [facility] for your health care needs. Your [facility] Primary Care Team LLITE PROJECT SITE MONITOR documented in this encounter Plan of Treatment Not on filedocumented as of this encounter Visit Diagnoses Not on filedocumented in this encounter Care Teams Ophthalmic Technician Apprentice Relationship Specialty Start Date End Date Judy Sorensen MD PCP - General 12/18/10 05/02/18 [address] [place] [address] documented as of this encounter
--- OUTSIDE RECORDS SUMMARY | 2022-04-27 02:57 | XMS_ITS | Encounter Summary ---
:1940 Author Organization [employer] Address [address] [place] [address] Care Team Providers Name Role Phone Judy Sorensen MD Primary Care Provider Reason for Visit Reason Comments Refill Encounter Details Date Type Department Care Team Description 02/15/[address] [facility] Judy Christensen MD Refill [address] [place] [address] [place], [place] [id number] (Wo rk) Social History Tobacco Use Types Packs/Day Years Used Date Smoking Tobacco: Never Assessed Sex Assigned at Date Recorded Not on file documented as of this encounter Nursing Notes User, Refilljustin - 02/16/2015 7:31 AM CDT atenolol (TENORMIN) 25 mg tablet [Pharmacy Med Name: ATENOLOL 25MG TABLET] - MEDICATION STARTED: 02/20/2009 - LAST REFILLED ON: 12/23/2014, QTY: 90, Refills: 3, Sig: take 1 tablet by mouth daily (every 24 hours). (changed but equivalent) - WARNING: A duplicate request was processed on 02/14/2015. - REFILL: 12 months (if warnings resolved) - RATIONALE: This refill should last until the patient is due for an office visit. - LAST QUALIFYING VISIT WITH JUDY GARCÍA: 12/23/2014 - NEXT SCHEDULED VISIT: None Powered by [employer], Reference: [id number], 02/15/2015 3:06:27 PM CDT, Pool: KHLOE VICTOR REFILL ([id number]) Keena Asif RN - 02/16/2015 7:31 AM CDT Renewed medication per medication refill protocol. Requested Prescriptions Signed Prescriptions Disp Refills ??? atenolol (TENORMIN) 25 mg tablet 90 tablet 3 Sig: Take 1 tablet by mouth daily (every 24 hours). Authorizing Provider: JUDY GARCÍA Ordering User: KEENA ASIF documented in this encounter Plan of Treatment Not on filedocumented as of this encounter Visit Diagnoses Not on filedocumented in this encounter Care Teams Guide Domestic Tour Relationship Specialty Start Date End Date Judy Sorensen MD PCP - General 12/18/10 05/02/18 [address] [place] [address] documented as of this encounter
--- OUTSIDE RECORDS SUMMARY | 2022-04-27 02:57 | XMS_ITS | Encounter Summary ---
:1940 Author Organization [facility] Address [address] [place] [address] Care Team Providers Name Role Phone Judy Sorensen MD Primary Care Provider Encounter Details Date Type Department Care Team Description 08/06/2015 Immunization [facility] Need for influenza [id number] [facility] vaccination (Primary Dx) [place] [address] Social History Tobacco Use Types Packs/Day Years Used Date Smoking Tobacco: Never Assessed Sex Assigned at Date Recorded Not on file documented as of this encounter Plan of Treatment Not on filedocumented as of this encounter Visit Diagnoses Diagnosis Need for influenza vaccination - Primary Need for prophylactic vaccination and in oculation against influenza documented in this encounter Care Teams Sociology Instructor Relationship Specialty Start Date End Date Judy Sorensen MD PCP - General 12/18/10 05/02/18 [address] [place], [place] [address] documented as of this encounter
--- OUTSIDE RECORDS SUMMARY | 2022-04-27 02:57 | XMS_ITS | Encounter Summary ---
:1940 Author Organization [employer] Address [address] [address] Care Team Providers Name Role Phone Judy Sorensen MD Primary Care Provider Reason for Visit Reason Comments Refill Encounter Details Date Type Department Care Team Description 11/18/2014 Refill [facility] Judy Christensen MD Refill [address] [place] [address] [place], [place] [address] (Wo rk) Social History Tobacco Use Types Packs/Day Years Used Date Smoking Tobacco: Never Assessed Sex Assigned at Date Recorded Not on file documented as of this encounter Nursing Notes User, Refillkareemzachapis - 11/19/2014 3:47 PM CST 1) atenolol (TENORMIN) 25 mg tablet [Pharmacy Med Name: ATENOLOL 25MG TABLET] - REFILL: 3 months - RATIONALE: This is a courtesy refill. Patient is overdue for an office visit. This will be the last refill authorized by the protocol. - LAST QUALIFYING VISIT WITH JUDY GARCÍA: 10/16/2013 - NEXT SCHEDULED VISIT: None - MEDICATION STARTED: 02/20/2009 - LAST REFILLED ON: 10/16/2013, QTY: 90, Refills: 3, Sig: take 1 tablet by mouth daily (every 24 hours). (changed but equivalent) Powered by [employer], Reference: [id number], 11/18/2014 9:43:40 AM Markos HAIDER: KHLOE FP REFILL ([id number]) 2) ranitidine (ZANTAC) 300 mg tablet [Pharmacy Med Name: RANITIDINE 300MG TABLET] - REFILL: 3 months - RATIONALE: This is a courtesy refill. Patient is overdue for an office visit. This will be the last refill authorized by the protocol. - LAST QUALIFYING VISIT WITH JUDY GARCÍA M: 10/16/2013 - NEXT SCHEDULED VISIT: None - MEDICATION STARTED: 01/01/2009 - LAST REFILLED ON: 10/16/2013, QTY: 90, Refills: 3, Sig: take 1 tablet by mouth nightly. (changed but equivalent) Powered by [employer], Reference: [id number], 11/18/2014 9:43:40 AM Markos HAIDER: KHLOE FP REFILL ([id number]) Michelle Cho - 11/19/2014 3:47 PM CST Duplicate letter request. Letter sent recently in another encounter. Closing note. Jeniffer Pope, RN - 11/19/2014 3:25 PM CST Renewed medication per medication refill protocol. Requested Prescriptions Signed Prescriptions Disp Refills ??? atenolol (TENORMIN) 25 mg tablet 90 tablet 0 Sig: Take 1 tablet by mouth daily (every 24 hours). Authorizing Provider: JUDY GARCÍA Ordering User: JENIFFER POPE ??? ranitidine (ZANTAC) 300 mg tablet 90 tablet 0 Sig: Take 1 tablet by mouth nightly. Authorizing Provider: JUDY GARCÍA Ordering User: JENIFFER POPE REFILL APPOINTMENT NEEDED Please send letter to patient regarding need to schedule an appointment within 30 days. Medication has been renewed and sent to pharmacy for a 90 day supply. Comment: Patient needs to schedule a qualifying visit prior to further refills. OR PHARMACY TECHNICIAN documented in this encounter Plan of Treatment Not on filedocumented as of this encounter Visit Diagnoses Not on filedocumented in this encounter Care Teams Senior Revenue Accountant Relationship Specialty Start Date End Date Judy Sorensen MD PCP - General 12/18/10 05/02/18 [address] [place] [address] documented as of this encounter
--- OUTSIDE RECORDS SUMMARY | 2022-04-27 02:57 | XMS_ITS | Encounter Summary ---
:1940 Author Organization [employer] Address [address], [place] [address] Care Team Providers Name Role Phone Judy Sorensen MD Primary Care Provider Reason for Visit Reason Comments MEDICATION THERAPY MANAGEMENT Encounter Details Date Type Department Care Team Description 05/17/2016 Office Visit [facility] Judy Sorensen, Abno rmal weight loss (Primary Dx); Medicine Tobacco use disorder; [address] Chronic ischemic heart disease; [place] [address] [place], [place] Need for influenza vaccinati on; [phone] [id number] [address]ough; [phone] (Wo rk) Urethral caruncle; PVD (harley pheral vascular disease) (HRC); Essential hyper tension; Screening lio sterol level Social History Tobacco Use Types Packs/Day Years [...] Sign Reading Time Taken Comments Blood Pressure 130/66 05/17/2016 12:01 PM CDT Pulse 63 05/17/2016 12:01 PM CDT Temperature - - Respiratory Rate - - Oxygen Saturation - - Inhaled Oxygen Concentration - - Weight 50.8 kg (112 lb) 05/17/2016 12:01 PM CDT Height - - Body Mass Index 22.06 10/16/2013 1:04 PM MANAGER VISUAL documented in this encounter Patient Instructions Patient InstructionsJudy Larsen MD - 05/17/2016 12:39 PM CDT apply a pea size amount of estrogen cream to the urethra twice a day for one month, then have me check the area again. documented in this encounter Progress Notes Judy Larsen MD - 05/18/2016 5:31 PM CDT Chief Complaint Patient presents with ??? Medication Management refill SUBJECTIVE: 75 y.o. female is here for medication review and refills. She knows she has been continuing to lose weight. On review she weighed 135 pounds in 2010. She been between 135 and 145 for the previous 5 years. By 2012 she was down to 226 pounds and in December 2014 123, visit a year ago was 118 and is currently undergoing 12 pounds. She is concerned that she is lost a little bit more rapidly and not a higher percentage of her weight this year. She states she takes in a good amount of fluids and eats well.She does have a smoker's cough with morning productive sputum every day. She is limited to about 3 blocks of walking due to development of fatigue and shortness of breath. She can to go downstairs readily but only up about 1 flight at a time if she has any options. She is not sure if she could get up more than 1 flight. She does have 3 sets of 4 steps with landings in her split-level home and can negotiate those without stopping. She denies exertional chest pain. She has a prior history of revascularization due to peripheral vascular disease. No history of heart attack. She is not using any inhalers, height cannot find information regarding a previous pulmonary function test, but we have suspectedshe had COPD. She denies any abdominal pain, no blood in the stool black stools blood in the urine or blood in sputum. She is not having headaches. She has some minor arthritis complaints. No bone pain. No personal history of malignancy. She thinks she still has the urethral caruncle: We found last year. She did use the estrogen cream apea-sized amount 3 times a week for a period of 2 months. She still has some other cream remaining at home. Patient's medications, allergies, past medical, surgical, social and family histories were reviewed and updated as appropriate. ROS: Pertinent positives and negatives are as noted above. OBJECTIVE: BP 130/66 mmHg Pulse 63 Wt 112 lb (50.803 kg) General: Alert, oriented, in no acute distress, appears stated age. Thin but not underweight for height. Head: Normocephalic. Eyes: PERRLA, full EOM. External exams normal. Ears: Normal pinnae, canals, andTM's. Nose: Patent, without deformity. Throat: Moist mucous membranes without lesions, erythema, or exudate. Neck: Supple, no adenopathy. Lungs: Clear to auscultation, but with reduced breath sounds. There appears to be an increased AP diameter to the chest. No use of accessory muscles of respiration. Heart: RRR, no murmur or gallop. Abdomen: No distension, soft, no focal tenderness, no masses, no organomegaly. She did have a littlediscomfort with palpation along the colonic gutter but that was not consistent on repeated exam. Normal bowel sounds no guarding or rebound. No dependent edema. No venous stasis changes to the lower extremities. Perineal exam reveals a small urethral caruncle, about 1-1/2 mm wide without any active bleeding. Palpation is unremarkable. ASSESSMENT: Weight loss without intending. Given her long-standing smoking I suspect this is likely due to increased work of breathing from COPD. We will do a lab evaluation to rule out hyperthyroidism and look ather blood counts. Long-term tobacco abuse. Negative Mullen. She has no intent at this point to quit smoking. Does not think she would be able to go a day without her cigarettes. She has cut down a little bit threequarters of a pack per day. History peripheral vascular disease on statin therapy. Sol was seen today for medication management. Diagnoses and all orders for this visit: Abnormal weight loss - XR Chest * PA and Left Lateral (Standard); Future - Thyroid Stimulating Hormone; Future - Alanine Aminotransferase; Future - Complete Blood Count-No Diff; Future Tobacco Abuse - PULMONARY FUNCTION LAB TESTING CONSULT (AMB); Future Ischemic Heart Disease Need for influenza vaccination - Influenza High-Dose (65+ years) Hypertension - Basic Metabolic Panel; Future Cough Urethral caruncle PVD (peripheral vascular disease) (HRC) Screening cholesterol level - Cholesterol Fraction-LDLD If Trig High; Future Refills will be given for her current medications. Education regarding COPD. His diagnosis and management. Options for inhaler therapies. Importance ofmaintaining adequate fitness to preserve activity tolerance. Discussed the benefits of smoking cessation and offered assistance in quitting. She declines this. Education regarding use of the estrogen cream. We will have her use this twice daily for a period of2 weeks, up to one month of use to the urethra. We reviewed and demonstrated anatomically where she wants to apply this. We can follow that up in one month and decide whether any additional evaluation is needed at that time. Immunizations reviewed.Counseling completed for all immunization components that were given to the patient today. Total time 25 milliunits, counseling time more than half of the visit. GER VISUAL documented in this encounter Plan of Treatment Not on filedocumented as of this encounter Visit Diagnoses Diagnosis Abnormal weight loss - Primary Loss of weight Tobacco use disorder (HRC) Tobacco use disorder Chronic ischemic heart disease (HRC) Chronic ischemic heart disease, unspecif ied Need for influenza vaccination Need for prophylactic vaccination and in oculation against influenza Cough Urethral caruncle PVD (peripheral vascular disease) (HRC) Peripheral vascular disease, unspecified Essential hypertension (HRC) Unspecified essential hypertension Screening cholesterol level Screening for lipoid disorders documented in this encounter Care Teams Logging Tractor Operator Relationship Specialty Start Date End Date Judy Sorensen MD PCP - General 12/18/10 05/02/18 [address] [place] [address] documented as of this encounter
--- OUTSIDE RECORDS SUMMARY | 2022-04-27 02:57 | XMS_ITS | Encounter Summary ---
:1940 Author Organization [employer] Address [address] [place] [address] Care Team Providers Name Role Phone Judy Sorensen MD Primary Care Provider Reason for Visit Reason Comments Refill Encounter Details Date Type Department Care Team Description 02/14/2015 Refill [facility] Judy Christensen MD Refill [address] [place] [address] [place], [place] [phone] (Wo rk) Social History Tobacco Use Types Packs/Day Years Used Date Smoking Tobacco: Never Assessed Sex Assigned at Date Recorded Not on file documented as of this encounter Nursing Notes User, Refillkareemzachapis - 02/15/2015 3:14 PM CDT atenolol (TENORMIN) 25 mg tablet [Pharmacy Med Name: ATENOLOL 25MG TABLET] - MEDICATION STARTED: 02/20/2009 - LAST REFILLED ON: 12/23/2014, QTY: 90, Refills: 3, Sig: take 1 tablet by mouth daily (every 24 hours). (unchanged) - WARNING: The patient should have outstanding refills for this medication until 09/19/2015. - REFILL: 12 months (if warnings resolved) - RATIONALE: This refill should last until the patient is due for an office visit. - LAST QUALIFYING VISIT WITH JUDY GARCÍA M: 12/23/2014 - NEXT SCHEDULED VISIT: None Powered by [employer], Reference: [id number], 02/14/2015 9:08:58 AM CDT, Pool: KHLOE FP REFILL ([id number]) Whitley Kolb - 02/15/2015 3:14 PM CDT DUPLICATE REQUEST: Multiple request received for same medication. See other encounter dated 02/14/15. documented in this encounter Plan of Treatment Not on filedocumented as of this encounter Visit Diagnoses Not on filedocumented in this encounter Care Teams Head Stock Operator Relationship Specialty Start Date End Date Judy Sorensen MD PCP - General 12/18/10 05/02/18 [address] [place] [address] documented as of this encounter
--- OUTSIDE RECORDS SUMMARY | 2022-04-27 02:57 | XMS_ITS | Encounter Summary ---
:1940 Author Organization [employer] Address [address] [place] [address] Care Team Providers Name Role Phone Judy Sorensen MD Primary Care Provider Reason for Visit Reason Comments MEDICATION CHECK Encounter Details Date Type Department Care Team Description 12/23/2014 Office Visit [facility] Judy Sorensen, Yohana osorio, class I (Primary Dx); Medicine MD Unspecified essential hypertension; [address] Tobacco use disorder; [address] Gastroesophageal reflux disease without esophagitis; [place], [place] Oste[place]; [id number] Screening for diabetes mellitus; [phone] Chronic ischemi c heart disease, unspecified (Work) Social History Tobacco Use Types Packs/Day Years Used Date Smoking Tobacco: Never Assessed Sex Assigned at Date Recorded Not on file documented as of this encounter Last Filed Vital Signs Vital Sign Reading Time Taken Comments Blood Pressure 140/64 12/23/2014 8:42 AM CDT Pulse 74 12/23/2014 8:42 AM CDT Temperature - - Respiratory Rate - - Oxygen Saturation - - Inhaled Oxygen Concentration - - Weight 55.8 kg (123 lb) 12/23/2014 8:34 AM CDT Height - - Body Mass Index 24.22 10/16/2013 1:04 PM [employer] documented in this encounter Progress Notes Judy Larsen MD - 12/31/2014 11:49 AM CDT Chief Complaint Patient presents with ??? Medication Check SUBJECTIVE: 74 y.o. female is here for medication refills, review of chronic medical problems. Unfortunately continues to smoke, is aware she should quite but is not ready to consider stopping at this time. History of ischemic heart disease and prior aorto-femoral bi-pass for symptomatic PVD. Denies change in herchronic angina, but now has enough arthritis that she does not try to walk fast. Is on a beta griselda, well tolerated. Hypertension well controlled. No adverse reactions noted. Tolerates the atorvastatin 40 mg. Not taking asa 81 mg due to excessive bruising. Does have a morning cough at times, unchanged. Denies dyspnea. Denies any focal neurologic episodes. Notes she is having trouble getting stools to pass. Straining a lot. Generally not hard or pebbly. No blood or melena. Past Medical History Diagnosis Date ??? Coronary artery disease ([facility]) ??? Hypertension ([facility]) ??? Hyperlipidemia ([facility]) Patient Active Problem List Diagnosis Date Noted ??? Hemorrhoids Internal NOS 02/29/2008 Class: Chronic ??? Diverticulosis Colon 02/29/2008 Class: Chronic ??? Hypertension 12/02/2005 Class: Chronic ??? Osteopenia 07/14/2004 Class: Chronic ??? 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 Tubal Ligation Elective 07/05/2004 Class: Historical ??? Tobacco Abuse 02/22/2003 Class: Chronic ??? Ischemic Heart Disease 02/22/2003 Class: Chronic ??? Gastroesophageal Reflux Disease 02/22/2003 Class: Chronic Past Surgical History Procedure Laterality Date ??? Aorto-femoral bypass graft 2006 ??? Tubal ligation ??? Breast biopsy Right long time ago Current Outpatient Prescriptions on File Prior to Visit Medication Sig Dispense Refill ??? aspirin EC 81 mg EC tablet Take 1 tablet by mouth every other day. No current facility-administered medications on file prior to visit. No Known Allergies OBJECTIVE: BP 140/64 Pulse 74 Wt 123 lb (55.792 kg) General: Alert, oriented, in no acute distress, appears stated age. Neck: Supple, no adenopathy. No bruit Lungs: Clear to auscultation Heart: RRR, no murmur or gallop. Abdomen: No distension, soft, no tenderness, no masses, no organomegaly. No aortic enlargement, no renal or femoral bruit. Femoral pulses full. Pedal pulses palpable, Skin normal ASSESSMENT: ASCVD with chronic stable angina. Prior history of aorto-femoral bipass for PVD. Stable angina, NYHAclass 1. Current tobacco smoker, no intent to quit at this time. Counseled. Hypertension, controlled. Bruising with ASA 81 mg daily. Excessive straining at stool, last colonoscopy 2007 was to have repeated at 02/2013. PLAN: Counseled about tobacco. Reviewed numerous benefit of cessation and the current risks for additionalvascular disease and cancer risks. Offered to have her contact [facility] pharmacist if ready to quit in the future. Labs, refills. Discussed ASA. Will have her restart but with 81 mg every other day. Reviewed risks and benefits. Colonoscopy recommended, prior adenoma. Avoid straining which may be worsening her difficult passing stool. Discussed anatomic reasons this may occur, particularly if some pelvic relaxation. She does not want perineal exam today. Stool softeners. Adequate dietary fiber, regular physical activity advised. Discussed recommendation by USPSTF for lung cancer screening in current or recent smokers with >30 year exposure. Sol was seen today for medication check. Diagnoses and associated orders for this visit: Angina, class I (HCC) Hypertension - Creatinine; Future - Electrolytes (NA, K, CL, Bicarb); Future Tobacco Abuse - CT Lung Screening WO; Future Gastroesophageal reflux disease without esophagitis Osteopenia - DXA SCAN CONSULT ADULT (AMB); Future Screening for diabetes mellitus - Glucose; Future Ischemic Heart Disease - Cholesterol Fraction-LDLD If Trig High; Future - Alanine Aminotransferase; Future Other Orders - atenolol (TENORMIN) 25 mg tablet; Take 1 tablet by mouth daily (every 24 hours). - atorvastatin (LIPITOR) 40 mg tablet; Take 1 tablet by mouth daily (every 24 hours). - chlorthalidone (HYGROTEN) 25 mg tablet; Take 1 tablet by mouth daily (every 24 hours). - ranitidine (ZANTAC) 300 mg tablet; Take 1 tablet by mouth at bedtime as needed for Heartburn. documented in this encounter Plan of Treatment Not on filedocumented as of this encounter Visit Diagnoses Diagnosis Angina, class I (HRC) - Primary Other and unspecified angina pectoris Unspecified essential hypertension ([facility]C) Unspecified essential hypertension Tobacco use disorder ([facility]C) Tobacco use disorder Gastroesophageal reflux disease without esophagitis Esophageal reflux Osteopenia Disorder of bone and cartilage, unspecif ied Screening for diabetes mellitus Chronic ischemic heart disease, unspecif ied (HRC) Chronic ischemic heart disease, unspecif ied documented in this encounter Care Teams Building Guard Deputy Sheriff Relationship Specialty Start Date End Date Judy Sorensen MD PCP - General 12/18/10 05/02/18 [address] [place] [address] documented as of this encounter
--- OUTSIDE RECORDS SUMMARY | 2022-04-27 02:57 | XMS_ITS | Encounter Summary ---
:1940 Author Organization [employer] Address [address] [place] [address] Care Team Providers Name Role Phone Judy Sorensen MD Primary Care Provider Reason for Visit Reason Comments Vaginal Discharge Encounter Details Date Type Department Care Team Description 04/28/2015 Office Visit [facility] Judy Sorensen, Vagi nal discharge (Primary Dx); Medicine MD Urethral caruncle; [id number] [place] [address] [address] [phone] [place], [place] [id number] Social History Tobacco Use Types Packs/Day Years Used Date Smoking Tobacco: Never Assessed Sex Assigned at Date Recorded Not on file documented as of this encounter Last Filed Vital Signs Vital Sign Reading Time Taken Comments Blood Pressure 112/82 04/28/2015 8:05 AM CDT Pulse 60 04/28/2015 8:05 AM CDT Temperature - - Respiratory Rate - - Oxygen Saturation - - Inhaled Oxygen Concentration - - Weight 53.5 kg (118 lb) 04/28/2015 8:05 AM CDT Height - - Body Mass Index 23.24 10/16/2013 1:04 PM 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 Vaginal Discharge 2 weeks SUBJECTIVE: 74 y.o. female is here for scant dark blood seen on a pad that appears to be from a vaginal origin for two days in the past week. She has always had some white, homogenous discharge. No burning, itching or odor. She remains sexually active with her , no discomfort. No post coital bleeding. No vaginal dryness. She is 20 years post menopausal. No history of cervical dysplasia. Denies any abdominal discomfort, bloating, constipation, dysuria or hematuria. She has not had recent constipation problems or straining. She has been losing weight over the past several years, and is down about 5 poundsfrom her visit in 2014. Clothing is a bit loose. Feels she is eating and has activity as usual.Not real physically active with her stable angina and assisted tobacco habit, although has not beenofficially diagnosed with COPD. She did have the low dose CT chest lung cancer screening this showed no lesions. Patient's medications, allergies, past medical, surgical, social and family histories were reviewed and updated as appropriate. ROS: Pertinent positives and negatives are as noted above. OBJECTIVE: BP 112/82 mmHg Pulse 60 Wt 118 lb (53.524 kg) General: Alert, oriented, in no acute distress, appears stated age. Neck: Supple, no adenopathy. No thyroid enlargement. Lungs: Clear to auscultation Abdomen: No distension, soft, no tenderness, no masses, no organomegaly. Well healed scar from umbilicus to pubis - from prior PVD surgery on the femoral arteries. Pelvis: Perineum remarkable for a urethral caruncle, no active bleeding noted. Mild atrophic changesof the vulva and vaginal vault, no surface vessels noted. Vagina has a modest homogenous white discharge. Cervix with scant mucous at the os. No blood. Pap obtained, no friability. Uterus is retroflexed. No tenderness or masses, but position makes deliniation difficult. No adnexal masses or tenderness. ASSESSMENT: Urethral caruncle Vaginal vs perineal bleeding. Patient feels blood was positioned to suggest vaginal. Will need uterine assessment, PAP. Vaginal discharge, likely physiologic but will check for bacterial vaginosis, less likely yeast. PLAN: Sol was seen today for vaginal discharge. Diagnoses and associated orders for this visit: Vaginal discharge - Wet Prep Urethral caruncle Postmenopausal vaginal bleeding - US Pelvic W/ Ev (Standard); Future - Pap Test Order Other Orders - conjugated estrogens (PREMARIN) vaginal cream; Apply pea sized amount to the urethral caruncle three times weekly for 2 months then stop Discussed whether to proceed to endometrial biopsy - since there is a likely cause for the minimal bleeding in the caruncle, at this point will assess uterine lining, PAP. Can proceed with FLY FINISHER consult if the US is not highly reassuring. She is to report any additional bleeding. Discussed use of a bradford tampon to assess location of bleeding source. Be careful to change regularly if used. documented in this encounter Plan of Treatment Not on filedocumented as of this encounter Procedures Procedure Name Priority Date/Time Associated Diagnosis Comme nts PAP TEST ORDER Routine 04/28/2015 9:06 AM Postmenopausal vagin al Results for this CDT bleeding procedure are i n the results section. HPV WITH 16 18 Routine 04/28/2015 9:06 AM Results for this GENOTYPING, CDT procedure are i n CERVICAL/ENDOCERVIC the resu lts AL section. ANATOMICAL PATH Routine 04/28/2015 9:06 AM Result s for this LIQUID BASED CDT procedure are i n the results section. WET PREP Routine 04/28/2015 9:05 AM Vaginal discharge Resu lts for this CDT procedure are i n the results section. documented in this encounter Results Pap Smear (04/28/2015 9:06 AM CDT) Specimen (Source) Anatomical Collection Method Collection Time Re ceived Time Location / / Volume Laterality 04/28/2015 9:06 AM CDT Narrative HP CONVERSION - 05/07/2015 9:40 AM CDT Performed at [facility], [address] [place] [address] FINAL GYNECOLOGICAL CYTOLOGY REPORT Pathology #: [id number] ?Date Obtained: 04/28/2015 ? Date Received: 04/29/2015 INTERPRETATION/RESULTS: Negative for Intraepithelial Lesion or M alignancy. SPECIMEN ADEQUACY: Satisfactory for Evaluation. ??Endocervi brayan cells/transformation zone component present. Verified on 05/07/2015 ??by DEA AVALOS(ASCP) (electronic signature) CLINICAL NOTES: ?Abnormal bleeding: Yes, LMP: 20 years ago, Menstrual status: Post ?Menopausal, Current form of the rapy: None apply LIQUID BASED PAP SMEAR SPECIMEN TYPE: ?ROUTINE CERVICAL PAP TEST PLEASE NOTE: The pap smear is a screening test design ed to aid in the detection of cervical cancer and its pre cursor lesions. It is not a diagnostic procedure and suma uld not be used as the sole means of detecting cervical cancer. Both false-positive and false-negative report s may occur. ? End of Report Judy Sorensen MD LAB_1 Performing Organization Address City/State/ZIP Code Phon e Number HP CONVERSION HPV with 16 18 Genotyping (04/28/2015 9:06 AM CDT) [employer] Method Time Signature HPV High Risk Not Detected HP CONVERSION 16 HPV High Risk Not Detected HP CONVERSION 18 Other HPV Not Detected HP CONVERSION High Risk Not 16/18 Comment: The [facility] HPV Test is a qualitative in v itro test for the detection of Human Papillomavirus in [facility] patient specimens. ??The test utilizes amplifica tion of target DNA by Polymerase Chain Reaction (PCR) and n ucleic acid hybridization for the detection of 14 hi gh-risk (HR) HPV types. The assay tests for high risk typ es (16, 18, 31, 33, 35, 39, 45, 51, 52, 56, 58, 59, 66 and 6 8). NOTE: This test was developed and its pe rformance characteristics determined by [facility]. It has not been cleared or approved by [facility]. The laboratory is regulated under CLIA as qualified to perform high-complexity testing. This test is used for clinical purposes. It should not be regarded as investigational or fo r research. Specimen Anatomical Collection Method Collection Time Receive d Time (Source) Location / / Volume Laterality 04/28/2015 9:06 AM 5 9:06 CDT AM CDT Narrative HP CONVERSION - 05/01/2015 1:22 PM CDT Performed at [facility], [address] [place] [address] Judy Sorensen MD LAB_1 Performing Organization Address City/[facility] Code Phon e Number HP CONVERSION Pap Test Order (04/28/2015 9:06 AM CDT) [employer] Method Time Signature Pap Smear Collected HP CONVERSION Monolayer tracking test Specimen Anatomical Collection Method Collection Time Receive d Time (Source) Location / / Volume Laterality 04/28/2015 9:06 AM 5 9:10 CDT AM CDT Narrative HP CONVERSION - 04/28/2015 9:06 AM CDT Performed at [place] [id number] [place] [address] Judy Sorensen MD LAB_1 Performing Organization Address City/[facility] Phon e Number HP CONVERSION (ABNORMAL) WET PREP (04/28/2015 9:05 AM CDT) [employer] Method Time Signature WETPR White Many (A) None Seen - HP CONVERSION Blood Cells Moderate WETPR Many HP CONVERSION Epithelial Cells WETPR Yeast None Seen None Seen - HP CONVERSION Rare WETPR None Seen None Seen HP CONVERSION Trichomonas WETPR Clue None Seen None Seen - HP CONVERSION Cells Few Wet Prep Source Cervix/Va HP CONVERSION ginal: Specimen Anatomical Collection Method Collection Time Receive d Time (Source) Location / / Volume Laterality 04/28/2015 9:05 AM 5 9:10 CDT AM CDT Narrative HP CONVERSION - 04/28/2015 9:24 AM CDT Performed at [facility], [address] [place] [address] Judy Sorensen MD LAB_1 Performing Organization Address City/[facility] Phon e Number HP CONVERSION documented in this encounter Visit Diagnoses Diagnosis Vaginal discharge - Primary Leukorrhea, not specified as infective Urethral caruncle Postmenopausal vaginal bleeding Postmenopausal bleeding documented in this encounter Care Teams Swine Nutritionist Relationship Specialty Start Date End Date Judy Sorensen MD PCP - General 12/18/10 05/02/[address] [place] [address] documented as of this encounter
--- OUTSIDE RECORDS SUMMARY | 2022-04-27 02:57 | XMS_ITS | Encounter Summary ---
:1940 Author Organization [employer] Address [address], [place] [address] Care Team Providers Name Role Phone Judy Sorensen MD Primary Care Provider Reason for Visit Reason Onset Date Comments Reminder Call 06/01/2017 lab Encounter Details Date Type Department Care Team Description 06/01/2017 Telephone [facility] Gwen Sorensen MD Reminder Call (lab) [address] [address] [phone] (Wo rk) Social History Tobacco Use Types Packs/Day Years Used Date Smoking Tobacco: Every Day Cigarettes 0.5 40 Smokeless Tobacco: Never Comments: Smoking History Packs/day: Alcohol Use Standard Drinks/Week Comments Yes 7 (1 standard drink = 0.6 oz pure alcoho l) Sex Assigned at Date Recorded Not on file documented as of this encounter Nursing Notes Ayesha Duran MA - 06/01/2017 12:10 PM CDT Expiration Date for overdue lab test(s) extended by 14 days on 06/01/2017. Patient advised to complete testing. documented in this encounter Plan of Treatment Not on filedocumented as of this encounter Visit Diagnoses Not on filedocumented in this encounter Care Teams Checkman Relationship Specialty Start Date End Date Judy Sorensen MD PCP - General 12/18/10 05/02/[address] [facility] [place] [address] documented as of this encounter
--- OUTSIDE RECORDS SUMMARY | 2022-04-27 02:57 | XMS_ITS | Encounter Summary ---
:1940 Author Organization [employer] Address [address] [place] [address] Care Team Providers Name Role Phone Judy Sorensen MD Primary Care Provider Reason for Visit Reason Onset Date Comments Refill 05/16/2017 atorvastatin (LIPITO R) 40 MG tablet; chlorthalidone (HYGROTON) 25 MG tablet Encounter Details Date Type Department Care Team Description 05/16/2017 Refill [facility] Judy Sorensen, Refi ll (atorvastatin Medicine (LIPITOR) 40 MG tablet; [address] chlorthalidone (HYGROTON) [place] [address] [place], [place] 25 MG tablet) [phone] [id number] (Wo rk) Social History Tobacco Use Types Packs/Day Years Used Date Smoking Tobacco: Every Day Cigarettes 0.5 40 Smokeless Tobacco: Never Comments: Smoking History Packs/day: Alcohol Use Standard Drinks/Week Comments Yes 7 (1 standard drink = 0.6 oz pure alcoho l) Sex Assigned at Date Recorded Not on file documented as of this encounter Nursing Notes Michelle Rushing - 05/19/2017 10:38 AM CDT Letter recently sent in another encounter within the last 30 days. Closing note. Ese Yang RN - 05/16/2017 4:30 PM CDT OFFICE APPOINTMENT NEEDED Please notify patient to schedule an appointment within 30 days. Requested Prescriptions Pending Prescriptions Disp Refills atorvastatin (LIPITOR) 40 MG tablet 90 Tab 0 Sig: Take 1 Tab by mouth daily. chlorthalidone (HYGROTON) 25 MG tablet 90 Tab 0 Sig: Take 1 Tab by mouth daily. Interface, Out Surescripts Prov Query - 05/16/2017 3:25 PM CDT atorvastatin (LIPITOR) 40 MG tablet Medication started: 10/16/2013 Last ordered by JUDY GARCÍA: 08/26/2016 (263 days ago) QTY: 90, Refills: 2, Sig: take 1 tab by mouth daily. (unchanged) -> Refill x 3 months (courtesy refill. overdue for an office visit) Last qualifying visit: 05/17/2016 (with JUDY GARCÍA) Next scheduled visit: None PATIENT IS DUE FOR: - CR (Sent to [facility]) - K (Sent to [facility]) - NA (Sent to [facility]) Powered by [employer], Reference: [id number], 05/16/2017 3:25:51 PM CDT, Pool: KHLOE FP REFILL ([id number]) chlorthalidone (HYGROTON) 25 MG tablet Medication started: 09/19/2012 Last ordered by JUDY GARCÍA: 08/26/2016 (263 days ago) QTY: 90, Refills: 2, Sig: take 1 tab by mouth daily. (unchanged) -> Refill x 3 months (courtesy refill. overdue for an office visit, Cr check, K check and Na check) Last qualifying visit: 05/17/2016 (with JUDY GARCÍA) Next scheduled visit: None SBP: 130 mm Hg on 05/17/2016 DBP: 66 mm Hg on 05/17/2016 Cr: 0.9 mg/dL on 05/17/2016 Na: 141 mEq/L on 05/17/2016 K: 4.5 mEq/L on 05/17/2016 PATIENT IS DUE FOR: - CR (Sent to [facility]) - K (Sent to [facility]FI[facility]) - NA (Sent to [facility]FI[facility]) Powered by [employer], Reference: [id number], 05/16/2017 3:25:51 PM CDT, Pool: KHLOE FP REFILL ([id number]) documented in this encounter Plan of Treatment Not on filedocumented as of this encounter Visit Diagnoses Not on filedocumented in this encounter Care Teams Genetics Teacher Relationship Specialty Start Date End Date Judy Sorensen MD PCP - General 12/18/10 05/02/18 [address] [employer] [place], [place] [id number] documented as of this encounter
--- OUTSIDE RECORDS SUMMARY | 2022-04-27 02:57 | XMS_ITS | Encounter Summary ---
:1940 Author Organization [facility] Address [address] [place] [address] Care Team Providers Name Role Phone Judy Sorensen MD Primary Care Provider Encounter Details Date Type Department Care Team Description 12/23/2014 Lab Visit [facility] Unspecified essential hypert ension; [address] Chronic ischemic heart disea se, unspecified; [place] [address] [facility] [phone] Social History Tobacco Use Types Packs/Day Years Used Date Smoking Tobacco: Never Assessed Sex Assigned at Date Recorded Not on file documented as of this encounter Plan of Treatment Not on filedocumented as of this encounter Procedures Procedure Name Priority Date/Time Associated Diagnosis Comme nts GLUCOSE Routine 12/23/2014 9:53 AM Screening for Results for this CDT diabetes mellitus procedure are in the results section. LIPID PANEL AND Routine 12/23/2014 9:53 AM Chronic ischemic Re sults for this DIRECT LDL(IF CDT heart disease, procedure ar e in NEEDED) unspecified the results section. CREATININE / GFR Routine 12/23/2014 9:53 AM Unspecified essent ial Results for this CDT hypertension (HRC) procedure are in the results section. ELECTROLYTE PANEL Routine 12/23/2014 9:53 AM Unspecified essen tial Results for this CDT hypertension (HRC) procedure are in the results section. ALT (SGPT) Routine 12/23/2014 9:53 AM Chronic ischemic Resul ts for this CDT heart disease, procedure are in unspecified the results section. documented in this encounter Results ALT (SGPT) (12/23/2014 9:53 AM CDT) [facility] Method Time Signature Alanine 19 4 - 55 HP CONVERSION Aminotransferase U/L Specimen Anatomical Collection Method Collection Time Receive d Time (Source) Location / / Volume Laterality 12/23/2014 9:53 AM 5 9:53 CDT AM CDT Narrative HP CONVERSION - 12/23/2014 10:56 AM CDT Performed at [facility], [address] [place] [address] Judy Sorensen MD LAB_1 Performing Organization Address City/[facility] Phon e Number HP CONVERSION (ABNORMAL) GLUCOSE (12/23/2014 9:53 AM CDT) athologist Signature Lab Glucose 109 (H) 60 - 100 HP CONVERSION mg/dL Specimen Anatomical Collection Method Collection Time Receive d Time (Source) Location / / Volume Laterality 12/23/2014 9:53 AM 5 9:53 CDT AM CDT Narrative HP CONVERSION - 12/23/2014 10:56 AM CDT Performed at [facility], [address] [place] [address] Judy Sorensen MD LAB_1 Performing Organization Address [facility] Phon e Number HP CONVERSION Lipid Panel and Direct LDL(If Needed) (12/23/2014 9:53 AM CDT) [facility] Method Time Signature Cholesterol 168 0 - 200 HP CONVERSION mg/dL Triglycerides 93 0 - 149 HP CONVERSION mg/dL HDL Cholesterol 61 >39 mg/dL HP CONVERSION Cholesterol/HDL 2.8 HP CONVERSION Ratio Screen LDL Calculated 88 19 - 130 HP CONVERSION mg/dL Length Of Fast 12.0 HP CONVERSION Specimen Anatomical Collection Method Collection Time Receive d Time (Source) Location / / Volume Laterality 12/23/2014 9:53 AM 5 9:53 CDT AM CDT Narrative HP CONVERSION - 12/23/2014 10:56 AM CDT Performed at [facility], [address] [place] [address] Judy Sorensen MD LAB_1 Performing Organization Address [facility] Phon e Number HP CONVERSION (ABNORMAL) Electrolyte Panel (12/23/2014 9:53 AM CDT) athologist Signature Sodium 141 137 - 147 HP CONVERSION mEq/L Potassium 3.6 3.5 - 5.2 HP CONVERSION mEq/L Chloride 99 98 - 110 HP CONVERSION mEq/L Bicarbonate 38 (H) 23 - 33 HP CONVERSION mmol/L Specimen Anatomical Collection Method Collection Time Receive d Time (Source) Location / / Volume Laterality 12/23/2014 9:53 AM 5 9:53 CDT AM CDT Narrative HP CONVERSION - 12/23/2014 10:56 AM CDT Performed at [facility], [address] [place] [address] Judy Sorensen MD LAB_1 Performing Organization Address City/[facility] Phon e Number HP CONVERSION Creatinine / GFR (12/23/2014 9:53 AM CDT) athologist Signature Creatinine 0.8 0.4 - 1.3 HP CONVERSION Serum mg/dL Est GFR >60 >60 HP CONVERSION [...] Time (Source) Location / / Volume Laterality 12/23/2014 9:53 AM 5 9:53 CDT AM CDT Narrative HP CONVERSION - 12/23/2014 10:56 AM CDT Performed at [facility], [address] [place] [address] Judy Sorensen MD LAB_1 Performing Organization Address City/[facility] Phon e Number HP CONVERSION documented in this encounter Visit Diagnoses Diagnosis Unspecified essential hypertension (HRC) Unspecified essential hypertension Chronic ischemic heart disease, unspecif ied (HRC) Chronic ischemic heart disease, unspecif ied Screening for diabetes mellitus documented in this encounter Care Teams Construction Field Engineer Relationship Specialty Start Date End Date Judy Sorensen MD PCP - General 12/18/10 05/02/[address] [place], [place] [id number] documented as of this encounter
--- OUTSIDE RECORDS SUMMARY | 2022-04-27 02:57 | XMS_ITS | Encounter Summary ---
:1940 Author Organization [employer] Address [address] [place] [address] Care Team Providers Name Role Phone Judy Sorensen MD Primary Care Provider Reason for Visit Reason Comments EAR,PLUGGED Encounter Details Date Type Department Care Team Description 01/02/2015 Hospital Encounter [facility], Fanta Church, Bi lateral impacted Care DAYNA gray [address] [place] [address] [phone] Social History Tobacco Use Types Packs/Day Years Used Date Smoking Tobacco: Never Assessed Sex Assigned at Date Recorded Not on file documented as of this encounter Last Filed Vital Signs Vital Sign Reading Time Taken Comments Blood Pressure 102/57 01/02/2015 9:58 AM CDT Pulse - - Temperature 36.2 ??C (97.2 ??F) 01/02/2015 9:58 AM CDT Respiratory Rate 16 01/02/2015 9:58 AM CDT Oxygen Saturation - - Inhaled Oxygen Concentration - - Weight - - Height - - Body Mass Index - - documented in this encounter Medications at Time of Discharge Medication Sig Dispensed Refills Start Date End Date aspirin EC 81 MG enteric Take 1 tablet by 0 10/16 coated tablet mouth every other day. carbamide peroxide Place 5-10 drops 15 mL 0 01/02/2015 (AURAPHENE-B) 6.5 % ear into the right ear drop solution 2 times daily. ATENolol (AKA TENORMIN) 25 Take 1 tablet by 90 tablet 3 03/201502/15/2015 MG tablet mouth daily (every 24 hours). atorvastatin (LIPITOR) 40 Take 1 tablet by 90 tablet 3 03/201502/09/2016 MG tablet mouth daily (every 24 hours). AURAPHENE-B 6.5 % SOLN Place 5-10 drops 15 mL 0 015 03/25/2016 into the right ear 2 times daily. chlorthalidone (HYGROTON) Take 1 tablet by 90 tablet 3 03/201502/09/2016 25 MG tablet mouth daily (every 24 hours). ranitidine (ZANTAC) 300 MG Take 1 tablet by 90 tablet 3 03/201503/22/2016 tablet mouth at bedtime as needed for Heartburn. documented as of this encounter ED Notes Fanta Prince PA-C - 01/02/2015 11:40 AM CDT SUBJECTIVE: Sol Oliva is a 74 y.o. female presents for bilateral plugged ears. History of earwax. Denies pain Past Medical History: Past Medical History Diagnosis Date ??? Coronary artery disease (ACG) ??? Hypertension (ACG) ??? Hyperlipidemia (ACG) Smoking or Smoke Exposure: History Social History ??? Marital Status: Spouse Name: He Number of Children: 3 ??? Years of Education: N/A Occupational History ??? Not on file. Social History Main Topics ??? Smoking status: Current Every Day Smoker -- 0.50 packs/day for 40 years Types: Cigarettes ??? Smokeless tobacco: Never Used Comment: Smoking History Packs/day: ??? Alcohol Use: 4.2 oz/week 7 Glasses of wine per week ??? Drug Use: No ??? Sexual Activity: Not on file Other Topics Concern ??? Exercise No ??? Seat Belt Yes ??? Special Diet No ??? Weight Concern No Social History Narrative Adverse Drug Reactions: No Known Allergies. Medications: No current facility-administered medications for this encounter. Current Outpatient Prescriptions Medication Sig Dispense Refill ??? aspirin EC 81 mg EC tablet Take 1 tablet by mouth every other day. ??? atenolol (TENORMIN) 25 mg tablet Take 1 tablet by mouth daily (every 24 hours). 90 tablet 3 ??? atorvastatin (LIPITOR) 40 mg tablet Take 1 tablet by mouth daily (every 24 hours). 90 tablet 3 ??? carbamide peroxide (DEBROX) 6.5 % Drop Place 5-10 drops into the right ear 2 times daily. 15 mL 0 ??? chlorthalidone (HYGROTEN) 25 mg tablet Take 1 tablet by mouth daily (every 24 hours). 90 tablet 3 ??? ranitidine (ZANTAC) 300 mg tablet Take 1 tablet by mouth at bedtime as needed for Heartburn. 90 tablet 3 OBJECTIVE: Vital Signs: BP 102/57 Temp(Src) 36.2 ??C (97.1 ??F) (Oral) Resp 16 General: Well-appearing. Both ear canals completely occluded with a dry hard ear wax. The nurse was able to clear the left earwax but not the right with ear lavage. Colace was also used. I was not able to extract right ear waxwith a curette because it was so dry and hard and causing too much irritation in her ear canal. Labs Reviewed - No data to display Medications - No data to display xray independantlly read and reviewed by me today ASSESSMENT: Diagnosis (ICD9) ICD-9-CM ICD-10-CM 1. Bilateral impacted cerumen 380.4 H61.23 PLAN: Discharge Medication List as of 01/02/2015 11:35 AM START taking these medications Details carbamide peroxide (DEBROX) 6.5 % Drop Place 5-10 drops into the right ear 2 times daily.Disp-15 mL,R-0, Print Recommend she use the drops in the right ear for 3 days and then return for ear lavage. Patient was discharged in stable condition. Follow up with urgent care as needed. This documentation was done by voice recognition software and may grammatical contain errors. Jeniffer Carpio RN - 01/02/2015 11:07 AM CDT Colace placed in pts right ear per Fanta Prince PA-C. documented in this encounter Miscellaneous Notes Medication History - Juan Diego Oconnor MD - 01/02/2015 11:40 AM CDT INPATIENT MEDS Encounter Date: 01/02/15 carbamide peroxide (DEBROX) 6.5 % Drop Start Date:01/02/15, End Date:-, Frequency:2 TIMES DAILY *No Administrations Recorded ED AVS Snapshot - Juan Diego Oconnor MD - 01/02/2015 11:40 AM CDT Images from the original note were not included. [facility] [address] [place] [address] Dept: [phone] [email or web address] Sol Neal Pj 01/02/2015 10:02 AM Hospital Encounter Description: Female : 1940 Department: [facility] Thank you for choosing [facility] for your health care visit with Fanta Prince PA-C. We are happy to care for you and provide this summary of your visit. Your primary youth care professional is currently listed as Judy Larsen MD. HERE IS WHAT YOU NEED TO KNOW To learn how you can take steps to stay as healthy as you can be visit [email or web address] HERE IS WHAT YOU NEED TO DO Call your clinic if you develop new or worsening symptoms or if you have questions about your visit or medications. Your to do list Future Orders Complete By Ordering Dept. DXA SCAN CONSULT ADULT (AMB) 03/24/2015 (Approximate) [facility] Scheduling Instructions: Your provider has recommended an appointment with Leonela Daniel [facility]. You may call [phone] to schedule your appointment. If you prefer, a lye machine operator will contact you within the next 3 business days to assist you in setting up this appointment. This recommended service/s may not be coveredby your insurance coverage. To find out your specific benefit coverage, please call the number on your insurance card. HERE IS INFORMATION FROM TODAY'S VISIT Reason for Visit Ear Fullness Reason for Visit History Health issues considered by your clinician today Bilateral impacted cerumen If you had any tests, you will be notified of your abnormal results by your clinic. Medications administered today None MEDICATIONS As of today's visit, these are your current medications Medication DOSAGE aspirin EC 81 mg EC tablet (Taking) Take 1 tablet by mouth every other day. atenolol (TENORMIN) 25 mg tablet (Taking) Take 1 tablet by mouth daily (every 24 hours). atorvastatin (LIPITOR) 40 mg tablet (Taking) Take 1 tablet by mouth daily (every 24 hours). carbamide peroxide (DEBROX) 6.5 % Drop Place 5-10 drops into the right ear 2 times daily. chlorthalidone (HYGROTEN) 25 mg tablet (Taking) Take 1 tablet by mouth daily (every 24 hours). ranitidine (ZANTAC) 300 mg tablet (Taking) Take 1 tablet by mouth at bedtime as needed for Heartburn. Vital signs from your visit Your Vital Signs Were BP Temp(Src) Resp Smoking Status 102/57 36.2 ??C (97.1 ??F) (Oral) 16 Current Every Day Smoker Allergies as of 01/02/2015 No Known Allergies Immunization History Reviewed on 10/16/2013 Fluzone vial (>=36 mos) 07/26/2013, 06/08/2012 INFLUENZA HIGH-DOSE (65+ YRS) 06/27/2014 INFLUENZA TIV 0.5 ML (36+ MOS) 06/05/2009, 07/11/2008, 07/03/2007, 07/09/2006, 07/20/2005, 07/05/2004 Influenza TIV (36+ mos) 06/18/2012, 05/25/2011 Influenza Virus Trival (36+ mo) 07/03/2003 Influenza Virus Trivalent/Conversion 08/01/2002, 08/22/2001, 07/08/1999, 07/16/1998 PNEUMOVAX 06/27/2014, 09/19/2012 Pneumococcal vaccine (pneumovax) 07/05/2004 Shingles 03/05/2009 TDAP (BOOSTRIX) 09/19/2012 Td Adult (>7 years) 03/10/2010, 12/09/1999 About You Date Of Sex Race Ethnicity Preferred Language 1940 Female White Non- Sami This document contains confidential information about your health and care. It is provided directlyto you for your personal, private use only. documented in this encounter Plan of Treatment Not on filedocumented as of this encounter Visit Diagnoses Diagnosis Bilateral impacted cerumen Impacted cerumen Triage Assessment Note - Jovita Wallace RN - 01/02/2015 9:56 AM CDT states she has had her ears irrigated several times. plugged for about a week documented in this encounter Care Teams Esthetician/Spa Coordinator Relationship Specialty Start Date End Date Judy Sorensen MD PCP - General 12/18/10 05/02/18 [address] [place] [address] documented as of this encounter
--- OUTSIDE RECORDS SUMMARY | 2022-04-27 02:57 | XMS_ITS | Encounter Summary ---
:1940 Author Organization [employer] Address [address] [place] [address] Care Team Providers Name Role Phone Judy Sorensen MD Primary Care Provider Encounter Details Date Type Department Care Team Description 08/18/2015 Imaging [facility] Encounter for screening [address] [employer] mammogram [place] [address] Social History Tobacco Use Types Packs/Day Years Used Date Smoking Tobacco: Never Assessed Sex Assigned at Date Recorded Not on file documented as of this encounter Plan of Treatment Not on filedocumented as of this encounter Procedures Procedure Name Priority Date/Time Associated Diagnosis Comme nts MM MAMMOGRAM Routine 08/18/2015 11:54 AM Encounter for Results for this SCREENING BILAT W MEDICARE SPECIALIST screening mammogram pro cedure are in CAD for breast cancer the result s section. documented in this encounter Results MM Mammogram Screening Bilat W CAD (08/18/2015 11:54 AM MEDICARE SPECIALIST) Anatomical Region Laterality Modality Breast Bilateral Mammography Specimen (Source) Anatomical Location Collection Method / Collectio n Time Received Time / Laterality Volume Impressions 08/18/2015 2:11 PM MEDICARE SPECIALIST : BI-RADS 1 Negative (overall) Follow Up Mammogram in 1 year - Gómez saunders The results and recommendations of this examination will be communicated to the patient by the [facility] and we will attempt to schedule any recommended imaging follow up with the patient. Narrative 08/18/2015 2:11 PM MEDICARE SPECIALIST Compared to: 04/01/2014 MM Mammogram Screening Bilateral W Cad, 10/31/2012 MM MAMMOGRAM DIGITAL SCRN W CAD, 012 MM MAMMOGRAM DIGITAL SCRN W CAD Bilateral Breast Findings: Bilateral digital screening mammogram wa s performed. There are scattered areas of fibroglandular density in the b reasts. No significant mass, calcifications or o ther abnormalities are seen in either breast. Procedure Note Marvin Newberry MD - 05/18/2016 Compared to: 04/01/2014 MM Mammogram Scr eening Bilateral W Cad, 10/31/2012 MM MAMMOGRAM DIGITAL SCRN W CAD, 012 MM MAMMOGRAM DIGITAL SCRN W CAD Bilateral Breast Findings: Bilateral digital screening mammogram wa s performed. There are scattered areas of fibroglandular density in the b reasts. No significant mass, calcifications or o ther abnormalities are seen in either breast. IMPRESSION : BI-RADS 1 Negative (overall) Follow Up Mammogram in 1 year - Gómez saunders The results and recommendations of this examination will be communicated to the patient by the [facility] and we will attempt to schedule any recommended imaging follow up with the patient. Judy Sorensen MD RAD [facility] documented in this encounter Visit Diagnoses Diagnosis Encounter for screening mammogram for br east cancer documented in this encounter Care Teams Supervisor [employer] Relationship Specialty Start Date End Date Judy Sorensen MD PCP - General 12/18/10 05/02/18 [address] [place] [address] documented as of this encounter
--- OUTSIDE RECORDS SUMMARY | 2022-04-27 02:57 | XMS_ITS | Encounter Summary ---
:1940 Author Organization [employer] Address [address] [place] [address] Care Team Providers Name Role Phone Judy Sorensen MD Primary Care Provider Reason for Visit Reason Onset Date Comments Refill 08/26/2016 ATENolol (TENORMIN) 25 MG tablet; atorvastatin (LIPITOR) 40 MG tablet; chlorthalido ne (HYGROTON) 25 MG tablet Encounter Details Date Type Department Care Team Description 08/26/[address] [facility] Judy Sorensen, Refi ll (ATENolol Medicine (TENORMIN) 25 MG tablet; [address] atorvastatin (LIPITOR) [address] [place] [address] [place], [place] MG tablet; chlorthalidone [phone] (HYGROTON) 25 MG tablet) [phone] (Wo rk) Social History Tobacco Use Types Packs/Day Years Used Date Smoking Tobacco: Every Day Cigarettes 0.5 40 Smokeless Tobacco: Never Comments: Smoking History Packs/day: Alcohol Use Standard Drinks/Week Comments Yes 7 (1 standard drink = 0.6 oz pure alcoho l) Sex Assigned at Date Recorded Not on file documented as of this encounter Nursing Notes Becky Sykes, RN - 08/26/2016 12:55 PM CST Renewed medication per medication refill protocol. Requested Prescriptions Pending Prescriptions Disp Refills ATENolol (TENORMIN) 25 MG tablet 90 Tab 2 Sig: Take 1 Tab by mouth daily. atorvastatin (LIPITOR) 40 MG tablet 90 Tab 2 Sig: Take 1 Tab by mouth daily. chlorthalidone (HYGROTON) 25 MG tablet 90 Tab 2 Sig: Take 1 Tab by mouth daily. NG MACHINE OPERATOR Interface, Out Surescripts Prov Query - 08/26/2016 12:31 PM CST ATENolol (TENORMIN) 25 MG tablet Medication started: 05/04/2011 Last ordered by JUDY GARCÍA: 05/05/2016 (113 days ago) QTY: 90, Refills: 0, Sig: take 1 tablet by mouth daily (every 24 hours). (changed but equivalent) -> Refill x 9 months (until due for an office visit) Last qualifying visit: 05/17/2016 (with JUDY GARCÍA) Next scheduled visit: None SBP: 130 mm Hg on 05/17/2016 DBP: 66 mm Hg on 05/17/2016 Powered by [employer], Reference: [id number], 08/26/2016 12:31:42 PM TAPING MACHINE OPERATOR, Pool: KHLOE FP REFILL ([id number]) atorvastatin (LIPITOR) 40 MG tablet Medication started: 10/16/2013 Last ordered by JUDY GARCÍA: 05/05/2016 (113 days ago) QTY: 90, Refills: 0, Sig: take 1 tablet by mouth daily (every 24 hours). (changed but equivalent) -> Refill x 9 months (until due for an office visit) Last qualifying visit: 05/17/2016 (with JUDY GARCÍA) Next scheduled visit: None Powered by [employer], Reference: [id number], 08/26/2016 12:31:42 PM Markos HAIDER: KHLOE FP REFILL ([id number]) chlorthalidone (HYGROTON) 25 MG tablet Medication started: 09/19/2012 Last ordered by JUDY GARCÍA: 05/09/2016 (109 days ago) QTY: 90, Refills: 0, Sig: take 1 tablet by mouth daily (every 24 hours). (changed but equivalent) -> Refill x 9 months (until due for an office visit, Cr check, K check and Na check) Last qualifying visit: 05/17/2016 (with JUDY GARCÍA) Next scheduled visit: None SBP: 130 mm Hg on 05/17/2016 DBP: 66 mm Hg on 05/17/2016 Cr: 0.9 mg/dL on 05/17/2016 Na: 141 mEq/L on 05/17/2016 K: 4.5 mEq/L on 05/17/2016 Powered by [employer], Reference: [id number], 08/26/2016 12:31:42 PM TAPING MACHINE OPERATOR, Pool: KHLOE FP REFILL ([id number]) NG MACHINE OPERATOR documented in this encounter Plan of Treatment Not on filedocumented as of this encounter Visit Diagnoses Not on filedocumented in this encounter Care Teams Mechanical Test Technician Relationship Specialty Start Date End Date Judy Sorensen MD PCP - General 12/18/10 05/02/18 [address] [place] [address] documented as of this encounter
--- OUTSIDE RECORDS SUMMARY | 2022-04-27 02:57 | XMS_ITS | Encounter Summary ---
:1940 Author Organization [facility] Address [address] [place] [address] Care Team Providers Name Role Phone Judy Sorensen MD Primary Care Provider Reason for Visit Procedure/Equipment (Routine) - Incomplete Specialty Diagnoses / Procedures Referred By Contact Refer red To Contact Diagnoses Abnormal CAT scan Judy Sorensen MD Procedures US Abd Aorta [address] [place], [place] [address] Referral ID Status Reason Start Date Expiration Date Visits V isits Requested Authorized [id number] Incomplete 06/13/2016 09/12/2017 1 1 Encounter Details Date Type Department Care Team Description 06/18/2016 Imaging [facility] Judy Sorensen MD Abnormal CAT scan [address] [place] [address] [place], [place] [id number] (Wo rk) Social History Tobacco Use Types [...] Priority Date/Time Associated Diagnosis Comme nts US ABD AORTA Routine 06/18/2016 9:17 AM Abnormal CAT scan Resu lts for this CDT procedure are i n the results section . 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 Narrative 06/18/2016 9:42 AM CDT COMPARISON: Chest CT 06/13/2016. HISTORY: Screening for AAA. FINDINGS: Proximal abdominal aorta measures 3 cm A P x 3 cm width Mid abdominal aorta measures 1.9 cm AP x 1.9 cm width Distal abdominal aorta measures 1.7 cm A P x 2.5 cm width Right common iliac artery measures 2.4 c m Left common iliac artery measures 1.9 cm Procedure Note Jose Quezada MD - 06/18/2016Formatti ng of this note might be different from the original. COMPARISON: Chest CT 06/13/2016. HISTORY: Screening for AAA. FINDINGS: Proximal abdominal aorta measures 3 cm A P x 3 cm width Mid abdominal aorta measures 1.9 cm AP x 1.9 cm width Distal abdominal aorta measures 1.7 cm A P x 2.5 cm width Right common iliac artery measures 2.4 c m Left common iliac artery measures 1.9 cm IMPRESSION IMPRESSION: Mild aneurysmal dilatation o f the proximal abdominal aorta at 3 cm. 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 Judy Sorensen MD [facility] documented in this encounter Visit Diagnoses Diagnosis Abnormal CAT scan Other nonspecific (abnormal) findings on radiological and other examinations of body structure documented in this encounter Care Teams Barrel Roller Operator Relationship Specialty Start Date End Date Judy Sorensen MD PCP - General 12/18/10 05/02/18 [address] [place] [address] documented as of this encounter
--- OUTSIDE RECORDS SUMMARY | 2022-04-27 02:57 | XMS_ITS | Encounter Summary ---
:1940 Author Organization [facility] Address [address], [place] [address] Care Team Providers Name Role Phone Judy Sorensen MD Primary Care Provider Reason for Visit Procedure/Equipment (Routine) - Incomplete Specialty Diagnoses / Procedures Referred By Contact Refer red To Contact Diagnoses Abnormal finding on breast imaging Judy Sorensen MD Procedures [facility] Breast [address] [place] [address] Referral ID Status Reason Start Date Expiration Date Visits V isits Requested Authorized [id number] Incomplete 02/10/2017 05/12/2018 1 1 Encounter Details Date Type Department Care Team Description 02/16/2017 Imaging [facility] [address] Sidney Sorensen MD Abnormal finding on Mammography [address] [facility] breast imaging [address] [place] [address] [address] [place] [address] [phone] Social History Tobacco Use Types Packs/Day Years [...] Name Priority Date/Time Associated Diagnosis Comme nts [facility] US BREAST RT Routine 02/16/2017 10:36 AM Abnormal finding on Results for this CDT breast imaging procedure are in the results section. documented in this encounter Results YMM US Breast Rt (02/16/2017 10:36 AM CDT) [...] and breast ultrasound follow-up is recommended. The [facility] will att empt to schedule [...] and breast ultrasound follow-up is recommended. The [facility] will att empt to schedule the recommended follow up with the patient. If the patient develops new symptoms such as a new palpable lump, skin changes or nipple discharge, evaluation at that time is recommended. IMPRESSION IMPRESSION: ACR BI-RADS CATEGORY 3: Prob ably benign. Judy Sorensen MD RAD ILIA YMM Mammogram Diag Rt W Andrews (02/16/2017 10:17 AM CDT) Anatomical Region Laterality [...] and breast ultrasound follow-up is recommended. The [facility] will att empt to schedule the recommended [...] and breast ultrasound follow-up is recommended. The [facility] will att empt to schedule the recommended [...] breast documented in this encounter Care Teams Staffing Administrator Relationship Specialty Start Date End Date Judy Sorensen MD PCP - General 12/18/10 05/02/18 [address] [place] [address] documented as of this encounter
--- OUTSIDE RECORDS SUMMARY | 2022-04-27 02:58 | XMS_ITS | Encounter Summary ---
:1940 Author Organization [facility] Address [address] [place] [address] Care Team Providers Name Role Phone Judy Sorensen MD Primary Care Provider Encounter Details Date Type Department Care Team Description 10/05/2011 [place] [address] [place] [address] Social History Tobacco Use Types Packs/Day Years Used Date Smoking Tobacco: Never Assessed Sex Assigned at Date Recorded Not on file documented as of this encounter Plan of Treatment Not on filedocumented as of this encounter Visit Diagnoses Not on filedocumented in this encounter Care Teams Juvenile Detention Officer Relationship Specialty Start Date End Date Judy Sorensen MD PCP - General 12/18/10 05/02/18 [address] [place], [place] [address] documented as of this encounter
--- OUTSIDE RECORDS SUMMARY | 2022-04-27 02:58 | XMS_ITS | Encounter Summary ---
:1940 Author Organization [email or web address] Address [address] [place] [address] Care Team Providers Name Role Phone Judy Sorensen MD Primary Care Provider Reason for Visit Reason Comments Other Encounter Details Date Type Department Care Team Description 02/16/[address] [facility], Message Other [address] [place], [place] [address] Social History Tobacco Use Types Packs/Day Years Used Date Smoking Tobacco: Never Assessed Sex Assigned at Date Recorded Not on file documented as of this encounter [facility], Message - 02/16/2010 3:22 PM CDT Phone Note filed by [email or web address] at 01/08/11912 Author: [email or web address] Service: (none) Author Type: (none) Filed: 01/08/11912 Note Time: 02/16/101521 Status: Signed Blown Film Extrusion Operator: [email or web address] (Resource) PRESCRIPTION REFILL Please provide enough refills to last until patient's next visit. Comment:- Pharmacy Seq #:-[phone] Pharmacy Name-Phone/Fax:-[facility] Street or City:-[place] Clinician Name:-Suzie Drug Name/Strength:-Simvastatin 80mg tabs Sig: Dose/Route/Freq:-Take 1 tab daily in the evening Quantity & Last Fill:-90 12/15/2009 *ECODE~PNRF Created on 16Feb2010 3:22pm by SOO MO J On 16Feb2010 3:23pm SOO MO wrote: ADDITIONAL PRESCRIPTION REFILL:2 Comment:- Drug Name/Strength:-Ranitidine 300mg tabs Sig:-Take 1 tab daily at bedtime. Quantity/Last Refill:-90 12/15/2009 *ECODE~PNARF On 17Feb2010 9:39pm CALIN GORDON wrote: REFILL APPOINTMENT NEEDED Please call patient and schedule appointment within 30 days. Medication has been renewed and faxed to pharmacy for 30 day supply only, per protocol. Comment:-PHysical or med check. On 18Feb2010 8:50am VIRGILIO LUNDBERG wrote: informed pt LE OBIEE DEVELOPER documented in this encounter Plan of Treatment Not on filedocumented as of this encounter Visit Diagnoses Not on filedocumented in this encounter Care Teams Beam Builder Relationship Specialty Start Date End Date Judy Sorensen MD PCP - General 12/18/10 05/02/18 [address] [place] [address] documented as of this encounter
--- OUTSIDE RECORDS SUMMARY | 2022-04-27 02:58 | XMS_ITS | Encounter Summary ---
:1940 Author Organization [employer] Address [address] [place] [address] Care Team Providers Name Role Phone Judy Sorensen MD Primary Care Provider Reason for Visit Reason Comments Other Encounter Details Date Type Department Care Team Description 02/26/2009 Telephone [facility], Message Other [address] [place] [address] Social History Tobacco Use Types Packs/Day Years Used Date Smoking Tobacco: Never Assessed Sex Assigned at Date Recorded Not on file documented as of this encounter [facility], Message - 02/26/2009 2:13 PM CDT Phone Note filed by TrendPo at 01/07/11 2901 Author: TrendPo Service: (none) Author Type: (none) Filed: 01/07/11430 Note Time: 02/26/093 Status: Signed Patent Litigation Associate: TrendPo (Resource) Prescription Refill Please provide enough refills to last until patient's next visit. Comment:- Pharmacy Seq #:-[phone] Pharmacy Name:-[facility] Street or City:[facility] Clinician Name:-Evon GARCÍA Drug Name/Strength:-ATENOLOL 25MG TAB Sig: Dose/Route/Freq:-TAKE ONE TAB DAILY Quantity & Last Fill:-30 11/18/08 Created on 26Feb2009 2:13pm by OMAR SAUCEDA On 26Feb2009 3:42pm BURT WARREN wrote: Renewed medication per medication refill protocol. Y SEPARATOR ENROBING documented in this encounter Plan of Treatment Not on filedocumented as of this encounter Visit Diagnoses Not on filedocumented in this encounter Care Teams Sausage Machine Operator Relationship Specialty Start Date End Date Judy Sorensen MD PCP - General 12/18/10 05/02/18 [address] [place] [address] documented as of this encounter
--- OUTSIDE RECORDS SUMMARY | 2022-04-27 02:58 | XMS_ITS | Encounter Summary ---
:1940 Author Organization [facility] Address [address] [place] [address] Care Team Providers Name Role Phone Judy Sorensen MD Primary Care Provider Encounter Details Date Type Department Care Team Description 05/07/2011 Notes/Orders [facility] Judy Sorensen, Othe r and unspecified hyperlipidemia; Medicine MD Unspecified essential hypertension; [address] [place] [place] [address] [place], [place] [phone] (Wo rk) Social History Tobacco Use Types Packs/Day Years Used Date Smoking Tobacco: Never Assessed Sex Assigned at Date Recorded Not on file documented as of this encounter Plan of Treatment Not on filedocumented as of this encounter Visit Diagnoses Diagnosis Other and unspecified hyperlipidemia (HR C) Other and unspecified hyperlipidemia Unspecified essential hypertension (HRC) Unspecified essential hypertension Esophageal reflux documented in this encounter Care Teams Mixing Technician Relationship Specialty Start Date End Date Judy Sorensen MD PCP - General 12/18/10 05/02/18 [address] [employer] [place], [place] [address] documented as of this encounter
--- OUTSIDE RECORDS SUMMARY | 2022-04-27 02:58 | XMS_ITS | Encounter Summary ---
:1940 Author Organization [facility] Address [address] [place] [address] Care Team Providers Name Role Phone Judy Sorensen MD Primary Care Provider Encounter Details Date Type Department Care Team Description 09/03/2009 PN Conversion Only [facility] [address] [address] Social History Tobacco Use Types Packs/Day Years Used Date Smoking Tobacco: Never Assessed Sex Assigned at Date Recorded Not on file documented as of this encounter Plan of Treatment Not on filedocumented as of this encounter Visit Diagnoses Not on filedocumented in this encounter Care Teams Combine Driver Relationship Specialty Start Date End Date Judy Sorensen MD PCP - General 12/18/10 05/02/18 [address] [place], [place] [address] documented as of this encounter
--- OUTSIDE RECORDS SUMMARY | 2022-04-27 02:58 | XMS_ITS | Encounter Summary ---
:1940 Author Organization [employer] Address [address] [place] [address] Care Team Providers Name Role Phone Judy Sorensen MD Primary Care Provider Reason for Visit Reason Comments IMMUNIZATIONS Encounter Details Date Type Department Care Team Description 06/20/2014 Telephone [facility] Judy Christensen MD IMMUNIZATIONS [address] [facility] [address] [place] [address] [place], [place] [address] (Wo rk) Social History Tobacco Use Types Packs/Day Years Used Date Smoking Tobacco: Never Assessed Sex Assigned at Date Recorded Not on file documented as of this encounter Nursing Notes Yari Carranza RN - 06/20/2014 12:16 PM CDT Pt wanted to know if she should get pneumococcal and flu shot. Per record review, she has had one PPSV23 after age 65 which was > 1 year ago, so she would get a second dose. Pt advised. Rasheeda Luz - 06/20/2014 11:50 AM CDT The patient is requesting to speak with a nurse regarding her flu shot. Please call and advise. documented in this encounter Plan of Treatment Not on filedocumented as of this encounter Visit Diagnoses Not on filedocumented in this encounter Care Teams Airport Manager Relationship Specialty Start Date End Date Judy Sorensen MD PCP - General 12/18/10 05/02/18 [address] [place] [address] documented as of this encounter
--- OUTSIDE RECORDS SUMMARY | 2022-04-27 02:58 | XMS_ITS | Encounter Summary ---
:1940 Author Organization [employer] Address [address] [place] [address] Care Team Providers Name Role Phone Judy Sorensen MD Primary Care Provider Reason for Visit Reason Comments HSN Follow Up Encounter Details Date Type Department Care Team Description 09/19/2012 Telephone [facility] [place] [address] [place] [address] [place], [place] [address] (Wo rk) Social History Tobacco Use Types Packs/Day Years Used Date Smoking Tobacco: Never Assessed Sex Assigned at Date Recorded Not on file documented as of this encounter Nursing Notes Ngozi Allen R - 09/19/2012 3:16 PM CST Called to let her know Dr. Larsen started her on a new medication. She would like labs and BP check 1month after she starts the medication. Pt understood. documented in this encounter Plan of Treatment Not on filedocumented as of this encounter Visit Diagnoses Not on filedocumented in this encounter Care Teams Optometrist President/Practice Owner Relationship Specialty Start Date End Date Judy Sorensen MD PCP - General 12/18/10 05/02/18 [address] [place], [place] [address] documented as of this encounter
--- OUTSIDE RECORDS SUMMARY | 2022-04-27 02:58 | XMS_ITS | Encounter Summary ---
:1940 Author Organization [employer] Address [address] [place] [address] Care Team Providers Name Role Phone Judy Sorensen MD Primary Care Provider Encounter Details Date Type Department Care Team Description 06/05/2009 Nursing Visit [facility] Jose Rosas MD [facility] [address] [facility] [address] [place] [address] [place] [address] [phone] Social History Tobacco Use Types Packs/Day Years Used Date Smoking Tobacco: Never Assessed Sex Assigned at Date Recorded Not on file documented as of this encounter Plan of Treatment Not on filedocumented as of this encounter Visit Diagnoses Not on filedocumented in this encounter Care Teams Volleyball Player Relationship Specialty Start Date End Date Judy Sorensen MD PCP - General 12/18/10 05/02/18 [address] [place] [address] documented as of this encounter
--- OUTSIDE RECORDS SUMMARY | 2022-04-27 02:58 | XMS_ITS | Encounter Summary ---
:1940 Author Organization [employer] Address [address] [place] [address] Care Team Providers Name Role Phone Judy Sorensen MD Primary Care Provider Reason for Visit Reason Comments Provider Return Call Request Encounter Details Date Type Department Care Team Description 10/17/2013 Telephone [facility] Judy Sorensen, [facility] ider Return Call Medicine MD Request [address] [place] [address] [place], [place] [phone] (Wo rk) Social History Tobacco Use Types Packs/Day Years Used Date Smoking Tobacco: Never Assessed Sex Assigned at Date Recorded Not on file documented as of this encounter Nursing Notes Ngozi Allen - 10/18/2013 8:52 AM CST Called patient (continuation of care) but still got a verbal ok to send medication list and problem list as requested below. Explained what problem list was as well as medication list. Will fax to number listed below. ESS PLANT OPERATOR Chasity Martell - 10/17/2013 10:59 AM CST Please fax # [phone]-problem and medication list for the colonoscopy order that was sent to Dr Gerry Mccabe in Gastro at the [facility] in [place] prior to scheduling. documented in this encounter Plan of Treatment Not on filedocumented as of this encounter Visit Diagnoses Not on filedocumented in this encounter Care Teams Analysis Lead Relationship Specialty Start Date End Date Judy Sorensen MD PCP - General 12/18/10 05/02/18 [address] [place] [address] documented as of this encounter
--- OUTSIDE RECORDS SUMMARY | 2022-04-27 02:58 | XMS_ITS | Encounter Summary ---
:1940 Author Organization [employer] Address [address] [place] [address] Care Team Providers Name Role Phone Judy Sorensen MD Primary Care Provider Encounter Details Date Type Department Care Team Description 10/22/2012 Notes/Orders Judy Ellis, Other scr eening Mammography mammogram [address] [place] [address] [place], [place] [phone] (Wo rk) Social History Tobacco Use Types Packs/Day Years Used Date Smoking Tobacco: Never Assessed Sex Assigned at Date Recorded Not on file documented as of this encounter Plan of Treatment Not on filedocumented as of this encounter Procedures Procedure Name Priority Date/Time Associated Diagnosis Comme nts MM MAMMOGRAM Routine 10/31/2012 1:50 PM Other screening Result s for this SCREENING BILAT W NURSE HEALTHCARE MANAGER mammogram procedure are in CAD the results section. documented in this encounter Results MM Mammogram Screening Bilat W CAD (10/31/2012 1:50 PM NURSE HEALTHCARE MANAGER) Anatomical Region Laterality Modality Breast Bilateral Mammography Specimen (Source) Anatomical Location Collection Method / Collectio n Time Received Time / Laterality Volume Impressions 11/01/2012 7:45 AM NURSE HEALTHCARE MANAGER IMPRESSION: BILATERAL BREASTS Negative, no evidence of malignancy. Nor mal interval follow-up is recommended in 12 months. OVERALL ASSESSMENT - CATEGORY 1 - NEGATI VE END OF IMPRESSION Narrative 11/01/2012 7:45 AM NURSE HEALTHCARE MANAGER Comparison is made to films from 10/05/2011 (bilateral) and films from 09/07/2010 (bilateral) and films fr om 06/12/2009 (bilateral) and films from 04/04/2008 (bilateral). ??The re is no significant interval change. Bilateral Breast Findings: There are scattered fibroglandular densi ties (11% - 50% fibroglandular). ??No significant masses , calcifications or other abnormalities are seen. Procedure Note Luisa Soto MD - 05/11/2016Format ting of this note might be different from the original. Comparison is made to films from 012 (bilateral) and films from 09/07/2010 (bilateral) and films fr 06/12/2009 (bilateral) and films from 04/04/2008 (bilateral). There is no significant interval change. Bilateral Breast Findings: There are scattered fibroglandular densi ties (11% - 50% fibroglandular). No significant masses, calcifications or other abnormalities are seen. IMPRESSION IMPRESSION: BILATERAL BREASTS Negative, no evidence of malignancy. Nor mal interval follow-up is recommended in 12 months. OVERALL ASSESSMENT - CATEGORY 1 - NEGATI VE END OF IMPRESSION Judy Sorensen MD RAD ILIA documented in this encounter Visit Diagnoses Diagnosis Other screening mammogram documented in this encounter Care Teams Streetcar Motorman Relationship Specialty Start Date End Date Judy Sorensen MD PCP - General 12/18/10 05/02/18 [address] [place] [address] documented as of this encounter
--- OUTSIDE RECORDS SUMMARY | 2022-04-27 02:58 | XMS_ITS | Encounter Summary ---
:1940 Author Organization [employer] Address [address] [place] [address] Care Team Providers Name Role Phone Judy Sorensen MD Primary Care Provider Reason for Visit Reason Comments Test Request Encounter Details Date Type Department Care Team Description 08/13/2012 Telephone [facility] Judy Christensen MD Test Request [id number] [place] [address] [place], [place] [address] (Wo rk) Social History Tobacco Use Types Packs/Day Years Used Date Smoking Tobacco: Never Assessed Sex Assigned at Date Recorded Not on file documented as of this encounter Nursing Notes Maluo Alarcon RN - 08/13/2012 4:39 PM CST Spoke with patient. She will come in fasting 12 hours on Monday. DDLE BUG Judy Larsen MD - 08/13/2012 4:35 PM CST orders entered. Fast 12 hours or overnight. DDLE BUG Sherif Buitrago - 08/13/2012 10:59 AM CST Lab/Radiology Requests Primary Care Provider: Judy Larsen MD What test is needed and when? needs to renew atenolol, simvastatin and ranitadine, thinks labs will be needed, wants to come in this Friday 08/17 to have labs done, please send order and call to confirm Why is test needed/requested? med refills *If symptom related, send to triage Sandfill Operator: Sol Oliva Best call back number: [phone] (home) , No relevant phone numbers on file. Is it OK to leave a confidential message on this voicemail? yes DDLE BUG documented in this encounter Plan of Treatment Not on filedocumented as of this encounter Visit Diagnoses Diagnosis Chronic ischemic heart disease, unspecif ied (HRC) Chronic ischemic heart disease, unspecif ied Unspecified essential hypertension (HRC) Unspecified essential hypertension Hyperlipidemia (HRC) Other and unspecified hyperlipidemia documented in this encounter Care Teams Business Liaison Officer Relationship Specialty Start Date End Date Judy Sorensen MD PCP - General 12/18/10 05/02/18 [address] [place] [address] documented as of this encounter
--- OUTSIDE RECORDS SUMMARY | 2022-04-27 02:58 | XMS_ITS | Encounter Summary ---
:1940 Author Organization [employer] Address [address] [place] [address] Care Team Providers Name Role Phone Judy Sorensen MD Primary Care Provider Encounter Details Date Type Department Care Team Description 05/25/2011 Lab Visit [facility] Other and unspecified hyperl ipidemia; [address] [facility] Unspecified essential hypert ension; [place] [address] Esophageal reflux [phone] Social History Tobacco Use Types Packs/Day Years Used Date Smoking Tobacco: Never Assessed Sex Assigned at Date Recorded Not on file documented as of this encounter Plan of Treatment Not on filedocumented as of this encounter Procedures Procedure Name Priority Date/Time Associated Diagnosis Comme nts LIPID PANEL AND Routine 05/25/2011 12:38 Other and unspecified Results for this DIRECT LDL(IF PM CDT hyperlipidemia (HRC) proced ure are in NEEDED) the results section. CREATININE / GFR Routine 05/25/2011 12:38 Unspecified essentia l Results for this PM CDT hypertension (HRC) procedure are in the results section. COMPLETE BLOOD Routine 05/25/2011 12:38 Esophageal reflux Resu lts for this COUNT-W/DIFF PM CDT procedure are i n the results section. DIFFERENTIAL Routine 05/25/2011 12:38 Results for this PM CDT procedure are i n the results section. ELECTROLYTE PANEL Routine 05/25/2011 12:38 Unspecified essenti al Results for this PM CDT hypertension (HRC) procedure are in the results section. ALT (SGPT) Routine 05/25/2011 12:38 Other and unspecified Re sults for this PM CDT hyperlipidemia (HRC) procedu re are in the results section. VENIPUNCTURE (FAWN) Routine 05/25/2011 12:29 Other and unspeci fied Results for this PM CDT hyperlipidemia (HRC) procedu re are in the results section. documented in this encounter Results Differential (05/25/2011 12:38 PM CDT) athologist Signature Absolute 5.1 1.8 - 8.0 HP CONVERSION Neutrophils k/cmm Absolute 3.4 1.1 - 4.0 HP CONVERSION Lymphocytes k/cmm Absolute 0.5 0.2 - 0.8 HP CONVERSION Monocytes k/cmm Absolute 0.2 0.0 - 0.5 HP CONVERSION Eosinophils k/cmm Absolute 0.0 0.0 - 0.2 HP CONVERSION Basophils k/cmm Specimen Anatomical Collection Method Collection Time Receive d Time (Source) Location / / Volume Laterality 05/25/2011 12:38 05/25/2011 PM CDT 12:37 PM CDT Narrative HP CONVERSION - 05/25/2011 12:58 [place] [address] Judy Sorensen MD LAB_1 Performing Organization Address City/State/ZIP Code Phon e Number HP CONVERSION Hemogram/Plts/Diff (05/25/2011 12:38 PM CDT) athologist Signature White Blood Cell 9.2 3.8 - 11.0 HP CONVERSIO N Count k/cmm Red Blood Cell 4.85 3.70 - HP CONVERSION Count 5.20 m/cmm Hemoglobin 14.5 11.8 - HP CONVERSION 15.5 g/dL Hematocrit 42.4 35.0 - HP CONVERSION 46.0 % Mean Corpuscular 87.4 80.0 - HP CONVERSION Volume 100.0 fL RDW 13.7 11.0 - HP CONVERSION 15.0 % Platelet Count 197 140 - 450 HP CONVERSION k/cmm Specimen Anatomical Collection Method Collection Time Receive d Time (Source) Location / / Volume Laterality 05/25/2011 12:38 05/25/2011 PM CDT 12:37 PM CDT Narrative HP CONVERSION - 05/25/2011 12:58 [place] [address] Judy Sorensen MD LAB_1 Performing Organization Address City/[facility]/ZIP Code Phon e Number HP CONVERSION Lipid Panel and Direct LDL(If Needed) (05/25/2011 12:38 PM CDT) [facility] gist Method Time Signature Cholesterol 156 0 - 200 HP CONVERSION mg/dL Triglycerides 97 0 - 149 HP CONVERSION mg/dL HDL Cholesterol 56 >39 mg/dL HP CONVERSION Cholesterol/HDL 2.8 HP CONVERSION Ratio Screen LDL Calculated 81 19 - 130 HP CONVERSION mg/dL Length Of Fast 2,107,337 HP CONVERSION ,602.0 Specimen Anatomical Collection Method Collection Time Receive d Time (Source) Location / / Volume Laterality 05/25/2011 12:38 05/25/2011 PM CDT 12:37 PM CDT Narrative HP CONVERSION - 05/25/2011 5:14 [place] [address] Judy Sorensen MD LAB_1 Performing Organization Address [facility] Phon e Number HP CONVERSION Electrolyte Panel (05/25/2011 12:38 PM CDT) athologist Signature Sodium 144 137 - 147 HP CONVERSION mEq/L Potassium 4.8 3.5 - 5.2 HP CONVERSION mEq/L Chloride 108 98 - 110 HP CONVERSION mEq/L Bicarbonate 30 23 - 33 HP CONVERSION mmol/L Specimen Anatomical Collection Method Collection Time Receive d Time (Source) Location / / Volume Laterality 05/25/2011 12:38 05/25/2011 PM CDT 12:37 PM CDT Narrative HP CONVERSION - 05/25/2011 5:14 PM CDT Performed at [facility], [address] [place] [address] Judy Sorensen MD LAB_1 Performing Organization Address City/[facility] Phon e Number HP CONVERSION Creatinine / GFR (05/25/2011 12:38 PM CDT) athologist Signature Creatinine 0.6 0.4 - 1.3 HP CONVERSION Serum mg/dL [...] Time (Source) Location / / Volume Laterality 05/25/2011 12:38 05/25/2011 PM CDT 12:37 PM CDT Narrative HP CONVERSION - 05/25/2011 5:14 PM CDT Performed at [facility], [address] [place] [address] Judy Sorensen MD LAB_1 Performing Organization Address [facility] Phon e Number HP CONVERSION ALT (SGPT) (05/25/2011 12:38 PM CDT) [facility] gist Method Time Signature Alanine 13 4 - 55 HP CONVERSION Aminotransferase U/L Specimen Anatomical Collection Method Collection Time Receive d Time (Source) Location / / Volume Laterality 05/25/2011 12:38 05/25/2011 PM CDT 12:37 PM CDT Narrative HP CONVERSION - 05/25/2011 5:14 PM CDT Performed at [facility], [address] [place] [address] Judy Sorensen MD LAB_1 Performing Organization Address [facility] Phon e Number HP CONVERSION VENIPUNCTURE (FAWN) (05/25/2011 12:29 PM CDT) athologist Signature Venipuncture Done HP CONVERSION Specimen (Source) Anatomical Collection Method Collection Time Re ceived Time Location / / Volume Laterality 05/25/2011 12:29 PM CDT Narrative HP CONVERSION - 05/25/2011 12:29 PM CDT Performed at [facility], [address] [place] [address] Judy Sorensen MD LAB_1 Performing Organization Address [facility] Phon e Number HP CONVERSION documented in this encounter Visit Diagnoses Diagnosis Other and unspecified hyperlipidemia (HR C) Other and unspecified hyperlipidemia Unspecified essential hypertension (HRC) Unspecified essential hypertension Esophageal reflux documented in this encounter Care Teams Press Manager Relationship Specialty Start Date End Date Judy Sorensen MD PCP - General 12/18/10 05/02/18 [address] [place], [place] [id number] documented as of this encounter
--- OUTSIDE RECORDS SUMMARY | 2022-04-27 02:58 | XMS_ITS | Encounter Summary ---
:1940 Author Organization [employer] Address [address] [place] [address] Care Team Providers Name Role Phone Judy Sorensen MD Primary Care Provider Encounter Details Date Type Department Care Team Description 03/06/2009 Office Visit [facility]esh Kiran [address] [place] [address] Social History Tobacco Use Types Packs/Day Years Used Date Smoking Tobacco: Never Assessed Sex Assigned at Date Recorded Not on file documented as of this encounter Plan of Treatment Not on filedocumented as of this encounter Visit Diagnoses Not on filedocumented in this encounter Care Teams Senior Mechanical Project Manager Relationship Specialty Start Date End Date Judy Sorensen MD PCP - General 12/18/10 05/02/18 [address] [place], [place] [id number] documented as of this encounter
--- OUTSIDE RECORDS SUMMARY | 2022-04-27 02:58 | XMS_ITS | Encounter Summary ---
:1940 Author Organization [employer] Address [address] [place] [address] Care Team Providers Name Role Phone Judy Sorensen MD Primary Care Provider Reason for Visit Reason Comments Annual Exam Encounter Details Date Type Department Care Team Description 09/19/2012 Office Visit Judy James, Well woman exam (Primary Dx); Medicine Chronic ischemic heart disease, unspecif ied; [address] Unspecified essential hypertension; [place] [address] [place], [place] Need for diphtheria-tetanus- pertussis (Tdap) vaccine; [phone] Need for pneumococcal vaccination; [phone] (Wo rk) Screening for malignant neoplasm of the cervix Social History Tobacco Use Types Packs/Day Years Used Date Smoking Tobacco: Never Assessed Sex Assigned at Date Recorded Not on file documented as of this encounter Last Filed Vital Signs Vital Sign Reading Time Taken Comments Blood Pressure 143/61 09/19/2012 1:11 PM C 13 CATAPULT OPERATOR Pulse 61 09/19/2012 1:11 PM C 13 CATAPULT OPERATOR Temperature - - Respiratory Rate - - Oxygen Saturation - - Inhaled Oxygen Concentration - - Weight 57.2 kg (126 lb) 09/19/2012 1:05 PM C 13 CATAPULT OPERATOR Height 151.1 cm (4' 11.5) 09/19/2012 1:05 PM C 13 CATAPULT OPERATOR Body Mass Index 25.02 09/19/2012 1:05 PM C 13 CATAPULT OPERATOR documented in this encounter Progress Notes Judy Larsen MD - 10/01/2012 10:13 PM CST Chief Complaint Patient presents with ??? Annual Exam Subjective: Sol Oliva is a 71 y.o. female here for routine exam. Current Complaints: None. Personal Health Questionnaire Reviewed: yes. Gynecologic History No LMP recorded. Patient is postmenopausal. Last Pap: 2009 Results: normal Last Mammogram: 1 year ago Results: normal OB History Grav Para Term Abortions TAB SAB Ect Mult Living Patient Active Problem List Diagnoses Date Noted ??? Hemorrhoids Internal NOS [455.0] 02/29/2008 Class: Chronic ??? Diverticulosis Colon [562.10] 02/29/2008 Class: Chronic ??? Hypertension [401.9] 12/02/2005 Class: Chronic ??? Osteopenia [733.90] 07/14/2004 Class: Chronic ??? 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 Tubal Ligation Elective [V25.2] 07/05/2004 Class: Historical ??? Tobacco Abuse [305.1] 02/22/2003 Class: Chronic ??? Ischemic Heart Disease [414.9] 02/22/2003 Class: Chronic ??? Gastroesophageal Reflux Disease [530.81] 02/22/2003 Class: Chronic Past Surgical History Procedure Date ??? Aorto-femoral bypass graft 2006 ??? Tubal ligation Family History Problem Relation Age of Onset ??? Heart Disease Mother History Social History ??? Marital Status: Spouse Name: He Number of Children: 3 ??? Years of Education: N/A Social History Main Topics ??? Smoking status: Current Everyday Smoker -- 0.5 packs/day for 40 years Types: Cigarettes ??? Smokeless tobacco: Never Used Comment: Smoking History Packs/day: ??? Alcohol Use: 4.2 oz/week 7 Glasses of wine per week ??? Drug Use: No ??? Sexually Active: Other Topics Concern ??? Exercise No ??? Seat Belt Yes ??? Special Diet No ??? Weight Concern No Social History Narrative ??? No narrative on file Current outpatient prescriptions Medication Sig Dispense Refill ??? aspirin EC 81 mg EC tablet Take 1 tablet by mouth every other day. 30 tablet 12 ??? atenolol (TENORMIN) 25 mg tablet Take 1 tablet by mouth daily (every 24 hours). 90 tablet 3 ??? chlorthalidone 25 mg tablet Take 1 tablet by mouth daily (every 24 hours). 30 tablet 11 ??? CHOLECALCIFEROL, VITAMIN D3, (VITAMIN D-3 ORAL) Take by mouth daily (every 24 hours). ??? ranitidine (ZANTAC) 300 mg tablet Take 1 tablet by mouth nightly. 90 tablet 3 ??? simvastatin (ZOCOR) 80 mg tablet Take 1 tablet by mouth nightly. 90 tablet 3 Allergies Allergen Reactions ??? No Known Drug Allergies ??? Contrast Media LW CM1: CONTRAST- nka Reaction : ??? Food Intolerance LW FI1: nka ??? Other LW Other1: -nka Review of Systems A comprehensive review of systems was negative. Objective: BP 143/61 Pulse 61 Ht 4' 11.5 (1.511 m) Wt 126 lb (57.153 kg) BMI 25.02 kg/m2 General appearance: alert, cooperative, no distress, appears stated age Head: Normocephalic, without obvious abnormality, atraumatic Eyes: conjunctivae/corneas clear. PERRL, EOM's intact. Fundi benign Ears: normal TM's and external ear canals AU Throat: lips, mucosa, and tongue normal; teeth [...] sounds normal; no masses, no organomegaly Pelvic: cervix normal in appearance, external genitalia normal, no adnexal masses or tenderness, no cervical motion tenderness, rectovaginal septum normal, uterus normal size, shape, and consistency, vagina with atrophic change, no lesions Extremities: extremities normal, atraumatic, no cyanosis or edema Pulses: 2+ and symmetric Skin: Skin color, texture, turgor normal. No rashes or lesions Lymph nodes: Cervical, supraclavicular, and axillary nodes normal. Neurologic: Grossly normal Assessment: Healthy female exam. Ongoing tobacco use Ischemic Heart Disease history, 10 years ago. Hypertension, controlled. hPlan: Education Reviewed and Recommended: Smoking Cessation, Self Breast Exams, Calcium Supplements, Weight Bearing Exercise, Low Fat, Low Cholesterol Diet Mammogram ordered. Follow up: 1 year Sol was seen today for annual exam. Diagnoses and associated orders for this visit: Well woman exam Ischemic heart disease - simvastatin (ZOCOR) 80 mg tablet; Take 1 tablet by mouth nightly. - Cancel: Alanine Aminotransferase; Future - Cancel: Cholesterol Fraction-LDLD If Trig High; Future Hypertension - atenolol (TENORMIN) 25 mg tablet; Take 1 tablet by mouth daily (every 24 hours). - Cancel: Creatinine; Future - Electrolytes (NA, K, CL, Bicarb); Future Need for fbudoaebap-ioprdkm-mbqbzlndn (tdap) vaccine - Tdap (BOOSTRIX) Need for pneumococcal vaccination - PPSV (Pneumovax) Screening for malignant neoplasm of the cervix - Pap Smear Screening Other Orders - ranitidine (ZANTAC) 300 mg tablet; Take 1 tablet by mouth nightly. - chlorthalidone 25 mg tablet; Take 1 tablet by mouth daily (every 24 hours). - Pap Smear Counseling completed for all immunization components that were given to the patient today. documented in this encounter Plan of Treatment Not on filedocumented as of this encounter Procedures Procedure Name Priority Date/Time Associated Comments Diagnosis ANATOMICAL PATH Routine 09/19/2012 2:00 PM Result s for this LIQUID BASED C 13 CATAPULT OPERATOR procedure are i n the results section. PAP SMEAR SCREENING Routine 09/19/2012 2:00 PM Screening for R esults for this C 13 CATAPULT OPERATOR malignant neoplasm procedure are in of the cervix the results section. documented in this encounter Results Pap Smear (09/19/2012 2:00 PM C 13 CATAPULT OPERATOR) Specimen (Source) Anatomical Collection Method Collection Time Re ceived Time Location / / Volume Laterality 09/19/2012 2:00 PM C 13 CATAPULT OPERATOR Narrative HP CONVERSION - 09/24/2012 2:53 PM C 13 CATAPULT OPERATOR Final GYNECOLOGICAL CYTOLOGY REPORT Pathology #: [id number] ?Date Obtained: 09/19/2012 ? Date Received: 09/20/2012 INTERPRETATION/RESULTS: Negative for Intraepithelial Lesion or M alignancy SPECIMEN ADEQUACY: Satisfactory for Evaluation. ??No endoce rvical cells/transformation zone component present; patient is postmenopa usal. Verified on 09/24/2012 ??by DEA SIGALA(ASCP) (electronic signature) CLINICAL NOTES: ? LMP: Not Stated, Postmenopausa l. LIQUID BASED PAP SMEAR SPECIMEN TYPE: ?CERVICAL WITH REFLEX TO HPV IF ASCUS PLEASE NOTE: The pap smear is a screening test design ed to aid in the detection of cervical cancer and its pre cursor lesions. It is not a diagnostic procedure and suma uld not be used as the sole means of detecting cervical cancer. Both false-positive and false-negative report s may occur. ? End of Report Judy Sorensen MD LAB_1 Performing Organization Address City/State/[facility] Code Phon e Number HP CONVERSION Pap Smear Screening (09/19/2012 2:00 PM C 13 CATAPULT OPERATOR) P athologist Signature PAP Routine Collected HP CONVERSION Specimen Anatomical Collection Method Collection Time Receive d Time (Source) Location / / Volume Laterality 09/19/2012 2:00 PM 3 6:14 C 13 CATAPULT OPERATOR AM C 13 CATAPULT OPERATOR Judy Sorensen MD LAB_1 Performing Organization Address City/[facility] Phon e Number HP CONVERSION documented in this encounter Visit Diagnoses Diagnosis Well woman exam - Primary Routine general medical examination at a health care facility Chronic ischemic heart disease, unspecif ied (HRC) Chronic ischemic heart disease, unspecif ied Unspecified essential hypertension (HRC) Unspecified essential hypertension Need for eevnhafxlu-oriuuem-hbtmbyusg (T dap) vaccine Need for prophylactic vaccination with c ombined ybpwfwgguf-gsozlra-yaiidrwim (DTP) vaccine Need for pneumococcal vaccination Need for prophylactic vaccination agains t streptococcus pneumoniae (pneumococcus) Screening for malignant neoplasm of the cervix documented in this encounter Care Teams Farm Equipment Mechanic Apprentice Relationship Specialty Start Date End Date Judy Sorensen MD PCP - General 12/18/10 05/02/18 [address] [place] [address] documented as of this encounter
--- OUTSIDE RECORDS SUMMARY | 2022-04-27 02:58 | XMS_ITS | Encounter Summary ---
:1940 Author Organization [email or web address] Address [address] [place] [address] Care Team Providers Name Role Phone Judy Sorensen MD Primary Care Provider Reason for Visit Reason Comments Annual Exam Encounter Details Date Type Department Care Team Description 10/16/2013 Office Visit [facility] Judy Sorensen, Well woman exam (Primary Dx); Medicine MD Unspecified essential hypertension; [address] Chronic ischemic heart disease, unspecif ied; [place] [address] [place], [place] Screening for diabetes melli tus; [phone] Benign neoplasm of colon; [phone] (Wo rk) Impacted cerumen; Dizziness Social History Tobacco Use Types Packs/Day Years Used Date Smoking Tobacco: Never Assessed Sex Assigned at Date Recorded Not on file documented as of this encounter Last Filed Vital Signs Vital Sign Reading Time Taken Comments Blood Pressure 112/60 10/16/2013 1:04 PM unable to get manual DATABASE CONSULTANT Pulse 58 10/16/2013 1:04 PM DATABASE CONSULTANT Temperature - - Respiratory Rate - - Oxygen Saturation - - Inhaled Oxygen - - Concentration Weight 56.8 kg (125 lb 2 10/16/2013 1:04 PM oz) DATABASE CONSULTANT Height 151.8 cm (4' 11.75) 10/16/2013 1:04 PM DATABASE CONSULTANT Body Mass Index 24.64 10/16/2013 1:04 PM DATABASE CONSULTANT documented in this encounter Progress Notes Judy Larsen MD - 10/16/2013 2:34 PM CST Chief Complaint Patient presents with ??? Annual Exam fasting Subjective: Sol Oliva is a 72 y.o. female here for routine exam. Current Complaints: No exertional chest symptoms. Some dry cough. Smoking, no interest in quitting. Needs colonoscopy but living in [place] would prefer to have it done locally there. She has had intermittent brief episodes of visual disturbance, can be double vision associated with dizziness. Not really room spinning. Feels like if she stood up might pass out. No palpitations or pain. No facial droop, confusion, speech disturbance, no hearing change, no focal weakness or numbness. Lasts a few moments. Not related to position change. Had one episode years ago, was at ED and thought may have had a TIA. On follow-up a cerumen plug was removed and the symptoms stopped. Stopped ASA use due to bruising. No myalgias. Does all own housework, including carries laundry up stairs without symptoms. Personal Health Questionnaire Reviewed: yes. Gynecologic History No LMP recorded. Patient is postmenopausal. Last Pap: 2009 Results: normal Last Mammogram: 1 year ago Results: normal OB History Grav Para Term Abortions TAB SAB Ect Mult Living 3 3 3 3 Patient Active Problem List Diagnosis Date Noted [...] of Onset ??? Heart Disease Mother ??? Cancer Sister 65 lung ??? Cancer, Lung Sister ??? Heart Attack Sister 62 History Social History ??? Marital Status: Spouse [...] ??? Drug Use: No ??? Sexually Active: None Other Topics Concern ??? Exercise No ??? Seat Belt Yes ??? Special Diet No ??? Weight Concern No Social History Narrative ??? None Current Outpatient Prescriptions Medication Sig Dispense Refill ??? [DISCONTINUED] aspirin EC 81 mg EC tablet Take 1 tablet by mouth every other day. 30 tablet 12 ??? atenolol (TENORMIN) 25 mg tablet TAKE 1 TABLET BY MOUTH DAILY (EVERY 24 HOURS). 90 tablet 3 ??? [DISCONTINUED] atenolol (TENORMIN) 25 mg tablet TAKE 1 TABLET BY MOUTH DAILY (EVERY 24 HOURS). 90 tablet 0 ??? atorvastatin (LIPITOR) 40 mg tablet Take 1 tablet by mouth daily (every 24 hours). 90 tablet 3 ??? chlorthalidone (HYGROTEN) 25 mg tablet Take 1 tablet by mouth daily (every 24 hours). 90 tablet 3 ??? [DISCONTINUED] chlorthalidone 25 mg tablet Take 1 tablet by mouth daily (every 24 hours). 90 tablet 4 ??? CHOLECALCIFEROL, VITAMIN D3, (VITAMIN D-3 ORAL) Take by mouth daily (every 24 hours). ??? ranitidine (ZANTAC) 300 mg tablet TAKE 1 TABLET BY MOUTH NIGHTLY. 90 tablet 3 ??? [DISCONTINUED] ranitidine (ZANTAC) 300 mg tablet TAKE 1 TABLET BY MOUTH NIGHTLY. 90 tablet 0 ??? [DISCONTINUED] simvastatin (ZOCOR) 80 mg tablet TAKE 1 TABLET BY MOUTH NIGHTLY. 90 tablet 0 No current facility-administered medications for this visit. No Known Allergies Review of Systems A comprehensive review of systems was negative. Objective: BP 112/60 Pulse 58 Ht 4' 11.75 (1.518 m) Wt 125 lb 2 oz (56.756 kg) BMI 24.63 kg/m2 General appearance: alert, cooperative, no distress, appears stated age Head: Normocephalic, without obvious abnormality, atraumatic Eyes: conjunctivae/corneas clear. PERRL, EOM's intact. Fundi benign Ears: abnormal external canal - ceruminosis impacting canal bilaterally. Flushed, then needed manual removal of nearly all cerumen of the right, with patent area of canal and zuñiga TM portion seen, on left partial removal with some deep cerumen remaining, 80% occlusion remained and unable to safely curette the remaining. Throat: lips, mucosa, and tongue normal; teeth [...] Disease history, 10 years ago. Hypertension, controlled. Dizziness spells, possible from cerumen impaction, vestibular, doubt TIA. Cerumen impaction, bilateral, flushed and I manually relieved impaction but not all cerumen cleared. hPlan: Education Reviewed and Recommended: Smoking Cessation, Self Breast Exams, Calcium Supplements, Weight Bearing Exercise, Low Fat, Low Cholesterol Diet Mammogram ordered. Follow up: 1 year Sol was seen today for annual exam. Diagnoses and associated orders for this visit: Well woman exam Hypertension - atenolol (TENORMIN) 25 mg tablet; TAKE 1 TABLET BY MOUTH DAILY (EVERY 24 HOURS). - chlorthalidone (HYGROTEN) 25 mg tablet; Take 1 tablet by mouth daily (every 24 hours). - Creatinine; Future - Electrolytes (NA, K, CL, Bicarb); Future Ischemic Heart Disease - Alanine Aminotransferase; Future - Cholesterol Fraction-LDLD If Trig High; Future Screening for diabetes mellitus - Glucose; Future Polyp Colon Adenomatous - Colonoscopy; Future Impacted cerumen - [place] REMOVAL IMPACTED CERUMEN INSTRUMENTATION UNILAT Dizziness Other Orders - ranitidine (ZANTAC) 300 mg tablet; TAKE 1 TABLET BY MOUTH NIGHTLY. - atorvastatin (LIPITOR) 40 mg tablet; Take 1 tablet by mouth daily (every 24 hours). - aspirin EC 81 mg EC tablet; Take 1 tablet by mouth every other day. Will stop simvastatin 80 and replace with atorvastatin 40 mg due to safety concerns with dose. Discussed aspirin use, since having excessive bruising with daily use will use every other day with vascular disease history, importance emphasized. Offered tobacco cessation assistance, advised of importance of quitting, patient declines. Reviewed physical activity recommendations of a minimum of 30 minutes of physical activity 5 days per week or 150 minutes weekly, optimum one hour 5 day per week or 300 minutes, with a combination of core and general strength training and aerobic activity. Reviewed stroke symptoms and response. Colonoscopy referral will be sent to her local hospital in [place]. Follow-up prn for cerumen removal following softener drops applied to ear canals for 3 days. Consider work-up if continues with dizzy spells with MRI, MRA. Restart every other day aspirin 81 mg. NOTE: Duplicate encounter notes, initial was pending revisions and was inadvertently saved. See thisnote for complete and updated details. BASE CONSULTANT Judy Larsen MD - 10/16/2013 2:32 PM CST Chief Complaint Patient presents with ??? Annual Exam fasting Subjective: Sol Oliva is a 72 y.o. female here for routine exam. Current Complaints: None. Personal Health Questionnaire Reviewed: yes. Gynecologic History No LMP recorded. Patient is postmenopausal. Last Pap: 2009 Results: normal Last Mammogram: 1 year ago Results: normal OB History Grav Para Term Abortions TAB SAB Ect Mult Living 3 3 3 3 Patient Active Problem List Diagnosis Date Noted [...] ??? Drug Use: No ??? Sexually Active: None Other Topics Concern ??? Exercise No ??? Seat Belt Yes ??? Special Diet No ??? Weight Concern No Social History Narrative ??? None Current Outpatient Prescriptions Medication Sig Dispense Refill ??? [DISCONTINUED] aspirin EC 81 mg EC tablet Take 1 tablet by mouth every other day. 30 tablet 12 ??? atenolol (TENORMIN) 25 mg tablet TAKE 1 TABLET BY MOUTH DAILY (EVERY 24 HOURS). 90 tablet 0 ??? chlorthalidone 25 mg tablet Take 1 tablet by mouth daily (every 24 hours). 90 tablet 4 ??? CHOLECALCIFEROL, VITAMIN D3, (VITAMIN D-3 ORAL) Take by mouth daily (every 24 hours). ??? ranitidine (ZANTAC) 300 mg tablet TAKE 1 TABLET BY MOUTH NIGHTLY. 90 tablet 0 ??? simvastatin (ZOCOR) 80 mg tablet TAKE 1 TABLET BY MOUTH NIGHTLY. 90 tablet 0 No current facility-administered medications for this visit. No Known Allergies Review of Systems A comprehensive review of systems was negative. Objective: BP 112/60 Pulse 58 Ht 4' 11.75 (1.518 m) Wt 125 lb 2 oz (56.756 kg) BMI 24.63 kg/m2 General appearance: alert, cooperative, no distress, [...] Diagnoses and associated orders for this visit: Hypertension Counseling completed for all immunization components that were given to the patient today. BASE CONSULTANT documented in this encounter Plan of Treatment Not on filedocumented as of this encounter Visit Diagnoses Diagnosis Well woman exam - Primary Routine general medical examination at a health care facility Unspecified essential hypertension (HRC) Unspecified essential hypertension Chronic ischemic heart disease, unspecif ied (HRC) Chronic ischemic heart disease, unspecif ied Screening for diabetes mellitus Benign neoplasm of colon Impacted cerumen Dizziness Dizziness and giddiness documented in this encounter Care Teams Sheet Metal Foreman Relationship Specialty Start Date End Date Judy Sorensen MD PCP - General 12/18/10 05/02/18 [address] [place] [address] documented as of this encounter
--- OUTSIDE RECORDS SUMMARY | 2022-04-27 02:58 | XMS_ITS | Encounter Summary ---
:1940 Author Organization [employer] Address [address] [place] [address] Care Team Providers Name Role Phone Judy Sorensen MD Primary Care Provider Encounter Details Date Type Department Care Team Description 03/10/2010 PN Conversion Only [facility] CONVERSION Judy Sorensen MD [address] [place] [address] (Wo rk) Social History Tobacco Use Types Packs/Day Years Used Date Smoking Tobacco: Never Assessed Sex Assigned at Date Recorded Not on file documented as of this encounter Plan of Treatment Not on filedocumented as of this encounter Procedures Procedure Name Priority Date/Time Associated Comments Diagnosis ANATOMICAL PATH Routine 03/10/2010 5:25 PM Result s for this LIQUID BASED CDT procedure are i n the results section. documented in this encounter Results Pap Smear (03/10/2010 5:25 PM CDT) P athologist Signature Pap Smear SEE TEXT No normal HP CONVERSION range Comment: Final GYNECOLOGICAL CYTOLOGY REPORT Pathology #: [id number] ?Date Obta ined: 03/10/2010 ? Date Received: 03/11/2010 INTERPRETATION/RESULTS: Negative for Intraepithelial Lesion or M alignancy SPECIMEN ADEQUACY: Satisfactory for Evaluation. ??No endoce rvical cells/transformation zone component present; patient is postmenopa usal. Verified on 03/16/2010 ??by PAULA Delacruz, CT(ASCP) (electronic signature) CLINICAL NOTES: ?LMP: not stated, Postmenopausal . SPECIMEN TYPE: ? CERVICAL WITH REFLEX TO HPV IF CUS ?* End of Report Specimen (Source) Anatomical Collection Method Collection Time Re ceived Time Location / / Volume Laterality 03/10/2010 5:25 PM CDT Judy Sorensen MD LAB_1 Performing Organization Address City/State/ZIP Code Phon e Number HP CONVERSION documented in this encounter Visit Diagnoses Not on filedocumented in this encounter Care Teams Driller Multiple Spindle Relationship Specialty Start Date End Date Judy Sorensen MD PCP - General 12/18/10 05/02/18 [address] [place] [address] documented as of this encounter
--- OUTSIDE RECORDS SUMMARY | 2022-04-27 02:58 | XMS_ITS | Encounter Summary ---
:1940 Author Organization [employer] Address [address] [place] [address] Care Team Providers Name Role Phone Judy Sorensen MD Primary Care Provider Encounter Details Date Type Department Care Team Description 06/12/2009 PN Conversion Only [facility] [address] [place] [address] Social History Tobacco Use Types Packs/Day Years Used Date Smoking Tobacco: Never Assessed Sex Assigned at Date Recorded Not on file documented as of this encounter Plan of Treatment Not on filedocumented as of this encounter Procedures Procedure Name Priority Date/Time Associated Diagnosis Comme nts MM MAMMOGRAM Routine 06/12/2009 8:33 AM Results f or this SCREENING BILAT W CDT procedure are in CAD the results section. documented in this encounter Results MM Mammogram Screening Bilat W CAD (06/12/2009 8:33 AM CDT) Anatomical Region Laterality Modality Breast Bilateral Mammography Specimen (Source) Anatomical Location Collection Method / Collectio n Time Received Time / Laterality Volume Narrative 06/12/2009 3:59 PM CDT Comparison is made to films from 02/16/2007 (bilateral) and films from 04/04/2008 (bilateral). ??There is no significant interval change. Bilateral Breast Findings: There are scattered fibroglandular densi ties (11% - 50% fibroglandular). There are benign appearing calcification s. ??No worrisome mass or suspicious calcifications identified. IMPRESSION: BILATERAL BREASTS: Benign, no evidence o f malignancy. Normal interval follow-up is recommended in 12 months. OVERALL ASSESSMENT - CATEGORY 2 - BENIGN END OF IMPRESSION Dictating ELDER JESUS Radiologist Procedure Note Elder Bourgeois MD - 05/10/2016Formattin g of this note might be different from the original. Comparison is made to films from 007 (bilateral) and films from 04/04/2008 (bilateral). There is no significant interval change. Bilateral Breast Findings: There are scattered fibroglandular densi ties (11% - 50% fibroglandular). There are benign appearing calcification s. No worrisome mass or suspicious calcifications identified. IMPRESSION: BILATERAL BREASTS: Benign, no evidence o f malignancy. Normal interval follow-up is recommended in 12 months. OVERALL ASSESSMENT - CATEGORY 2 - BENIGN END OF IMPRESSION Dictating ELDER JESUS Radiologist Judy Sorensen MD RAD ILIA documented in this encounter Visit Diagnoses Not on filedocumented in this encounter Care Teams Mesh Man Relationship Specialty Start Date End Date Judy Sorensen MD PCP - General 12/18/10 05/02/18 [address] [place] [address] documented as of this encounter
--- OUTSIDE RECORDS SUMMARY | 2022-04-27 02:58 | XMS_ITS | Encounter Summary ---
:1940 Author Organization [employer] Address [address] [place] [address] Care Team Providers Name Role Phone Judy Sorensen MD Primary Care Provider Reason for Visit Reason Comments BLOOD PRESSURE CHECK Encounter Details Date Type Department Care Team Description 10/31/2012 Office Visit [facility] Judy Sorensen, [facility] ecified essential Medicine hypertension (Primary [address] [place]x) [place] [address] [place], [place] [phone] (Wo rk) Social History Tobacco Use Types Packs/Day Years Used Date Smoking Tobacco: Never Assessed Sex Assigned at Date Recorded Not on file documented as of this encounter Last Filed Vital Signs Vital Sign Reading Time Taken Comments Blood Pressure 138/88 10/31/2012 11:39 AM PICTURE ENGRAVER Pulse 64 10/31/2012 11:39 AM PICTURE ENGRAVER Temperature - - Respiratory Rate - - Oxygen Saturation - - Inhaled Oxygen Concentration - - Weight 57.2 kg (126 lb) 10/31/2012 11:39 AM PICTURE ENGRAVER Height - - Body Mass Index 25.02 09/19/2012 1:05 PM PICTURE ENGRAVER documented in this encounter Progress Notes Judy Larsen MD - 11/04/2012 9:49 PM CST Chief Complaint Patient presents with ??? BP (Blood Pressure Check) SUBJECTIVE: 71 y.o. female here for hypertension follow-up. Needs annual lab and visit. No symptoms. Tolerating medication. No angina, claudication or focal neurologic deficits. Does have a history of ischemic heart disease. Tobacco abuse, 1/2 ppd, not ready to quit. No edema, no PELAEZ, although breathing does not allow her to walk real fast for the last few years. Some daily cough. Up to date on immunizations. Patient Active Problem List Diagnoses Date Noted [...] Gastroesophageal Reflux Disease [530.81] 02/22/2003 Class: Chronic Current outpatient prescriptions ordered prior to encounter Medication Sig Dispense Refill ??? aspirin EC [...] tablet by mouth nightly. 90 tablet 3 No Known Allergies ROS: Pertinent positives and negatives are as noted above. OBJECTIVE: BP 138/88 Pulse 64 Wt 126 lb (57.153 kg) General: Alert, oriented, in no acute distress, appears stated age. Neck: Supple, no bruit, no adenopathy or thyromegaly. Lungs: Clear to auscultation. No use of accessory muscles of respiration. Some increased AP diameterof the chest wall. Heart: RRR, no murmur or gallop. Abdomen: No distension, soft, no tenderness, no masses, no organomegaly. No bruit. Normal femoral pulses. Extremities: No trauma, no edema, no calf tenderness. Intact pedal pulses. ASSESSMENT: Hypertension, marginal control. Will adjust meds. hyperlipidemia, on statin therapy Ischemic heart disease with ongoing tobacco use. At risk for tobacco related lung disease, some symptoms of COPD and exam suggestive. PLAN: Sol was seen today for bp (blood pressure check). Diagnoses and associated orders for this visit: Hypertension - chlorthalidone 25 mg tablet; Take 1 tablet by mouth daily (every 24 hours). Offered assist with tobacco cessation, reviewed ongoing risks for lung disease, vascular disease effects. documented in this encounter Plan of Treatment Not on filedocumented as of this encounter Visit Diagnoses Diagnosis Unspecified essential hypertension (HRC) - Primary Unspecified essential hypertension documented in this encounter Care Teams Internet Marketing Manager Relationship Specialty Start Date End Date Judy Sorensen MD PCP - General 12/18/10 05/02/18 [address] [place] [address] documented as of this encounter
--- OUTSIDE RECORDS SUMMARY | 2022-04-27 02:58 | XMS_ITS | Encounter Summary ---
:1940 Author Organization [employer] [facility] Address [address] [place] [address] Care Team Providers Name Role Phone Judy Sorensen MD Primary Care Provider Encounter Details Date Type Department Care Team Description 10/31/2012 [facility] [address] [place] [address] Social History Tobacco Use Types Packs/Day Years Used Date Smoking Tobacco: Never Assessed Sex Assigned at Date Recorded Not on file documented as of this encounter Plan of Treatment Not on filedocumented as of this encounter Visit Diagnoses Not on filedocumented in this encounter Care Teams Overhead Foreman Relationship Specialty Start Date End Date Judy Sorensen MD PCP - General 12/18/10 05/02/18 [address] [place], [place] [address] documented as of this encounter
--- OUTSIDE RECORDS SUMMARY | 2022-04-27 02:58 | XMS_ITS | Encounter Summary ---
:1940 Author Organization [employer] Address [address] [place] [address] Care Team Providers Name Role Phone Judy Sorensen MD Primary Care Provider Encounter Details Date Type Department Care Team Description 09/07/2010 PN Conversion Only [facility] [address] [place] [address] Social History Tobacco Use Types Packs/Day Years Used Date Smoking Tobacco: Never Assessed Sex Assigned at Date Recorded Not on file documented as of this encounter Plan of Treatment Not on filedocumented as of this encounter Procedures Procedure Name Priority Date/Time Associated Diagnosis Comme nts MM MAMMOGRAM Routine 09/07/2010 12:41 PM Results for this SCREENING BILAT W LINUX SERVER ADMINISTRATOR procedure are in CAD the results section. documented in this encounter Results MM Mammogram Screening Bilat W CAD (09/07/2010 12:41 PM LINUX SERVER ADMINISTRATOR) Anatomical Region Laterality Modality Breast Bilateral Mammography Specimen (Source) Anatomical Location Collection Method / Collectio n Time Received Time / Laterality Volume Narrative 09/09/2010 8:48 AM LINUX SERVER ADMINISTRATOR Comparison is made to films from 06/12/2009 (bilateral). There is no significant interval change. Bilateral Breast Findings: There are scattered fibroglandular densi ties (11% - 50% fibroglandular). Punctate and round calc ifications are present. IMPRESSION: BILATERAL BREASTS: Punctate and round ca lcifications. Benign, no evidence of malignancy. Normal interval follow-up is recommended in 12 months. OVERALL ASSESSMENT - CATEGORY 2 - BENIGN END OF IMPRESSION BJ Dictating CHRISTOFER ARNOLD RADIOLOGIST Procedure Note Christofer Harper MD - 05/10/2016Forma tting of this note might be different from the original. Comparison is made to films from 009 (bilateral). There is no significant interval change. Bilateral Breast Findings: There are scattered fibroglandular densi ties (11% - 50% fibroglandular). Punctate and round calc ifications are present. IMPRESSION: BILATERAL BREASTS: Punctate and round ca lcifications. Benign, no evidence of malignancy. Normal interval follow-up is recommended in 12 months. OVERALL ASSESSMENT - CATEGORY 2 - BENIGN END OF IMPRESSION BJ Dictating CHRISTOFER ARNOLD RADIOLOGIST Judy Sorensen MD RAD ILIA documented in this encounter Visit Diagnoses Not on filedocumented in this encounter Care Teams Founder Chairman And Chief Creative Officer Relationship Specialty Start Date End Date Judy Sorensen MD PCP - General 12/18/10 05/02/18 [address] [place] [address] documented as of this encounter
--- OUTSIDE RECORDS SUMMARY | 2022-04-27 02:58 | XMS_ITS | Encounter Summary ---
:1940 Author [facility] Address [address] [place] [address] Care Team Providers Name Role Phone Judy Sorensen MD Primary Care Provider Encounter Details Date Type Department Care Team Description 08/17/2012 Lab Visit [facility] Unspecified essential hypert ension; [address] [place] [address] Social History Tobacco Use Types Packs/Day Years Used Date Smoking Tobacco: Never Assessed Sex Assigned at Date Recorded Not on file documented as of this encounter Plan of Treatment Not on filedocumented as of this encounter Procedures Procedure Name Priority Date/Time Associated Diagnosis Comme nts GLUCOSE Routine 08/17/2012 11:09 Hyperlipidemia Results f or this AM OPTICS MANUFACTURING TECHNICIAN procedure are i n the results section. LIPID PANEL AND Routine 08/17/2012 11:09 Hyperlipidemia Result s for this DIRECT LDL(IF AM OPTICS MANUFACTURING TECHNICIAN procedure are in NEEDED) the results section. CREATININE / GFR Routine 08/17/2012 11:09 Unspecified essentia l Results for this AM OPTICS MANUFACTURING TECHNICIAN hypertension (HRC) procedure are in the results section. ELECTROLYTE PANEL Routine 08/17/2012 11:09 Unspecified essenti al Results for this AM OPTICS MANUFACTURING TECHNICIAN hypertension (HRC) procedure are in the results section. ALT (SGPT) Routine 08/17/2012 11:09 Hyperlipidemia Results f or this AM OPTICS MANUFACTURING TECHNICIAN procedure are i n the results section. documented in this encounter Results GLUCOSE (08/17/2012 11:09 AM OPTICS MANUFACTURING TECHNICIAN) P athologist Signature Lab Glucose 94 60 - 100 HP CONVERSION mg/dL Specimen Anatomical Collection Method Collection Time Receive d Time (Source) Location / / Volume Laterality 08/17/2012 11:09 08/17/2012 AM OPTICS MANUFACTURING TECHNICIAN 11:09 AM OPTICS MANUFACTURING TECHNICIAN Narrative HP CONVERSION - 08/17/2012 12:36 PM OPTICS MANUFACTURING TECHNICIAN Performed at [facility], [address] [place] [address] Judy Sorensen MD LAB_1 Performing Organization Address [facility] Phon e Number HP CONVERSION ALT (SGPT) (08/17/2012 11:09 AM OPTICS MANUFACTURING TECHNICIAN) [facility] Method Time Signature Alanine 18 4 - 55 HP CONVERSION Aminotransferase U/L Specimen Anatomical Collection Method Collection Time Receive d Time (Source) Location / / Volume Laterality 08/17/2012 11:09 08/17/2012 AM OPTICS MANUFACTURING TECHNICIAN 11:09 AM OPTICS MANUFACTURING TECHNICIAN Narrative HP CONVERSION - 08/17/2012 12:36 PM OPTICS MANUFACTURING TECHNICIAN Performed at [facility], [address] [place] [address] Judy Sorensen MD LAB_1 Performing Organization Address [facility] Phon e Number HP CONVERSION Lipid Panel and Direct LDL(If Needed) (08/17/2012 11:09 AM OPTICS MANUFACTURING TECHNICIAN) [facility] Method Time Signature Cholesterol 158 0 - 200 HP CONVERSION mg/dL Triglycerides 65 0 - 149 HP CONVERSION mg/dL HDL Cholesterol 65 >39 mg/dL HP CONVERSION Cholesterol/HDL 2.4 HP CONVERSION Ratio Screen LDL Calculated 80 19 - 130 HP CONVERSION mg/dL Length Of Fast 12.0 HP CONVERSION Specimen Anatomical Collection Method Collection Time Receive d Time (Source) Location / / Volume Laterality 08/17/2012 11:09 08/17/2012 AM OPTICS MANUFACTURING TECHNICIAN 11:09 AM OPTICS MANUFACTURING TECHNICIAN Narrative HP CONVERSION - 08/17/2012 12:36 PM OPTICS MANUFACTURING TECHNICIAN Performed at [facility], [address] [place] [address] Judy Sorensen MD LAB_1 Performing Organization Address [facility] Phon e Number HP CONVERSION (ABNORMAL) Electrolyte Panel (08/17/2012 11:09 AM OPTICS MANUFACTURING TECHNICIAN) athologist Signature Sodium 142 137 - 147 HP CONVERSION mEq/L Potassium 4.7 3.5 - 5.2 HP CONVERSION mEq/L Chloride 105 98 - 110 HP CONVERSION mEq/L Bicarbonate 34 (H) 23 - 33 HP CONVERSION mmol/L Specimen Anatomical Collection Method Collection Time Receive d Time (Source) Location / / Volume Laterality 08/17/2012 11:09 08/17/2012 AM OPTICS MANUFACTURING TECHNICIAN 11:09 AM OPTICS MANUFACTURING TECHNICIAN Narrative HP CONVERSION - 08/17/2012 12:36 PM OPTICS MANUFACTURING TECHNICIAN Performed at [facility], [address] [place], [place] [address] Judy Sorensen MD LAB_1 Performing Organization Address [facility] Phon e Number HP CONVERSION Creatinine / GFR (08/17/2012 11:09 AM OPTICS MANUFACTURING TECHNICIAN) athologist Signature Creatinine 0.7 0.4 - 1.3 HP CONVERSION Serum mg/dL [...] Time (Source) Location / / Volume Laterality 08/17/2012 11:09 08/17/2012 AM OPTICS MANUFACTURING TECHNICIAN 11:09 AM OPTICS MANUFACTURING TECHNICIAN Narrative HP CONVERSION - 08/17/2012 12:36 PM OPTICS MANUFACTURING TECHNICIAN Performed at [facility], [address] [place] [address] Judy Sorensen MD LAB_1 Performing Organization Address [facility] Phon e Number HP CONVERSION documented in this encounter Visit Diagnoses Diagnosis Unspecified essential hypertension (HRC) Unspecified essential hypertension Hyperlipidemia (HRC) Other and unspecified hyperlipidemia documented in this encounter Care Teams Wash Barrel Leader Relationship Specialty Start Date End Date Judy Sorensen MD PCP - General 12/18/10 05/02/[address] [place] [address] documented as of this encounter
--- OUTSIDE RECORDS SUMMARY | 2022-04-27 02:58 | XMS_ITS | Encounter Summary ---
:1940 Author Organization [employer] Address [address], [place] [address] Care Team Providers Name Role Phone Judy Sorensen MD Primary Care Provider Reason for Visit Reason Comments Refill Encounter Details Date Type Department Care Team Description 08/23/[address] [facility] Judy Christensen MD Refill [address] [place] [address] [place], [place] [id number] (Wo rk) Social History Tobacco Use Types Packs/Day Years Used Date Smoking Tobacco: Never Assessed Sex Assigned at Date Recorded Not on file documented as of this encounter Nursing Notes Aide Cardenas - 08/24/2012 4:35 PM CST Spoke to patient about refill and to schedule an appointment Barbara Castano RN - 08/24/2012 4:17 PM CST Prescription Refills Approved Prescriptions Disp Refills ??? atenolol (TENORMIN) 25 mg tablet 30 tablet 0 Sig: TAKE 1 TABLET BY MOUTH DAILY (EVERY 24 HOURS). Authorizing Provider: JUDY GARCÍA Ordering User: BARBARA CASTANO ??? simvastatin (ZOCOR) 80 mg tablet 30 tablet 0 Sig: TAKE 1 TABLET BY MOUTH ONCE DAILY IN THE EVENING Authorizing Provider: JUDY GARCÍA Ordering User: BARBARA CASTANO ??? ranitidine (ZANTAC) 300 mg tablet 30 tablet 0 Sig: TAKE 1 TABLET (300 MG) BY ORAL ROUTE ONCE DAILY AT BEDTIME Authorizing Provider: JUDY GARCÍA Ordering User: BARBARA CASTANO REFILL APPOINTMENT NEEDED Please call patient and schedule appointment within 30 days. Medication has been renewed and sent to pharmacy for a 30 day supply. Comment: Overdue for physical or medication check. Last appointment 05/25/11 documented in this encounter Plan of Treatment Not on filedocumented as of this encounter Visit Diagnoses Not on filedocumented in this encounter Care Teams Front Line Supervisor Relationship Specialty Start Date End Date Judy Sorensen MD PCP - General 12/18/10 05/02/18 [address] [place] [address] documented as of this encounter
--- OUTSIDE RECORDS SUMMARY | 2022-04-27 02:58 | XMS_ITS | Encounter Summary ---
:1940 Author Organization [employer] Address [address] [place] [address] Care Team Providers Name Role Phone Judy Sorensen MD Primary Care Provider Encounter Details Date Type Department Care Team Description 03/29/2010 Procedure Visit [facility] [place] [address] [place] [address] Social History Tobacco Use Types Packs/Day Years Used Date Smoking Tobacco: Never Assessed Sex Assigned at Date Recorded Not on file documented as of this encounter Progress Notes Oniel Tamez MD - 03/29/2010 12:01 AM CDT Progress Notes signed by Oniel Tamez MD at 03/31/10 0825 Author: Oniel Tamez MD Service: (none) Author Type: Physician Filed: 01/08/11 2343 Note Time: 03/29/10 0001 Status: Signed Metal Cabinet Finisher: Oniel Tamez MD (Physician) NAME: SHU OLIVA MR#: [id number] ACCT: [id number] VISIT: [id number] DICTATING CLINICIAN: ONIEL TAMEZ MD CONFIRM #: [id number] LOC: 471 CLINIC DEXA REPORT DATE OF VISIT: 03/29/2010 FINAL IMPRESSION: Bone density on Hologic Discovery SL. SUBJECTIVE: INTERPRETING PHYSICIAN: ONIEL TAMEZ MD OSTEOPOROSIS RISK FACTORS FROM PATIENT QUESTIONNAIRE: 69-year-old woman, 20 years postmenopausal, not on HRT. She does not take adequate calcium and vitamin D in her diet and does not take supplements by her self report. She is a long time past and present heavy cigarette smoker. Previous scan in 2002 showed moderate bone loss at the lumbar spine. OBJECTIVE: SITE BMD T-SCORE* Z-SCORE L1-L4 0.857 -1.7 0.3 Total L Hip 0.763 -1.5 0.0 Fem Neck 0.621 -2.1 -0.3 VFA: Lateral image of the thoracic and lumbar spine from T2-L5 shows no vertebral compression deformities. No aortic calcifications are seen. * The T-score = Standard Deviations Above/Below Mean Peak Adult The Z-score = Standard Deviations Above/Below Mean Age/Sex - Matched Peers. It is not available for patients over age 84. WHO DEFINITIONS: Normal BMD: T-score > -1.0 Osteopenia: T-score between -1.0 and -2.5 Osteoporosis: T-score < -2.5 ISCD Standards: For a more accurate fracture risk assessment, reference data is used for all ethnic groups and the 1/3 region is reported for the forearm. ASSESSMENT: 1. The overall diagnosis is moderate bone density loss, based on lowest T-score in the femoral neck. 2. Compared to the previous scan in 2002, she has had a modest decrease in bone density of about 3.5% in the femoral neck and an increase of about 5.5% in the lumbar spine. 3. No vertebral compression fracture seen on VFA. No aortic calcifications are noted. 4. Moderate increased future fracture risk. RECOMMENDATIONS: 1. It is imperative for halfway bone health to take adequate calcium and vitamin D. Recommend adding appropriate calcium and vitamin D supplements. 2. Stop smoking. 3. Osteoporosis guidelines may be found on Facets. 4. Suggest repeating a scan in 4-5 years. ESS:[id number] C: 03/31/10 08:06 CONFIRM #: [id number] documented in this encounter Plan of Treatment Not on filedocumented as of this encounter Visit Diagnoses Not on filedocumented in this encounter Care Teams Wire Tester Relationship Specialty Start Date End Date Judy Sorensen MD PCP - General 12/18/10 05/02/18 [address] [place] [address] documented as of this encounter
--- OUTSIDE RECORDS SUMMARY | 2022-04-27 02:58 | XMS_ITS | Encounter Summary ---
:1940 Author Organization [employer] Address [address] [place] [address] Care Team Providers Name Role Phone Judy Sorensen MD Primary Care Provider Encounter Details Date Type Department Care Team Description 01/14/[address] [facility] Jordan Sorensen MD [facility] [address] [place] [address] [phone] (Wo rk) Social History Tobacco Use Types Packs/Day Years Used Date Smoking Tobacco: Never Assessed Sex Assigned at Date Recorded Not on file documented as of this encounter Plan of Treatment Not on filedocumented as of this encounter Visit Diagnoses Not on filedocumented in this encounter Care Teams Charge Authorizer Relationship Specialty Start Date End Date Judy Sorensen MD PCP - General 12/18/10 05/02/18 [facility] [employer] [place] [address] documented as of this encounter
--- OUTSIDE RECORDS SUMMARY | 2022-04-27 02:58 | XMS_ITS | Encounter Summary ---
:1940 Author Organization [employer] Address [address] [place] [address] Care Team Providers Name Role Phone Judy Sorensen MD Primary Care Provider Reason for Visit Reason Comments LAB RESULTS Encounter Details Date Type Department Care Team Description 11/15/2012 Telephone [facility] Judy Christensen MD LAB RESULTS [email or web address] [place] [address] [place], [place] [address] (Wo rk) Social History Tobacco Use Types Packs/Day Years Used Date Smoking Tobacco: Never Assessed Sex Assigned at Date Recorded Not on file documented as of this encounter Nursing Notes Ngozi Allen - 11/16/2012 5:21 PM CST Letter printed. ERN SCRATCHER Judy Larsen MD - 11/16/2012 1:51 PM CST New letter [facility], please print and send. ERN SCRATCHER Yari Carranza, RN - 11/15/2012 1:35 PM CST Pt advised of normal lab results from 10/31/12. She would like a copy of this (no letter available in [facility]). ERN SCRATCHER Nancy Thomas - 11/15/2012 12:27 PM CST Lab/Radiology Results Primary Care Provider: Judy Larsen MD What test result is needed? Pt unsure When and where was test done? 10/31/12 at [facility] Who ordered the test? Judy Larsen MD ERN SCRATCHER documented in this encounter Miscellaneous Notes Letter - 11/15/2012 12:00 AM CST Images from the original note were not included. [place] [address] [place] [address] Sol Almaguerkssirena [address] [place] [address] November 16, 2012 Dear Sol, This letter is to inform you of your recent test results: Lab Results Component Value Date/Time Sodium 139 10/31/2012 12:30 Potassium 4.1 10/31/2012 12:30 Chloride 104 10/31/2012 12:30 Bicarbonate 29 10/31/2012 12:30 If you have any questions regarding this letter, please call. Sincerely, Judy Larsen MD ERN SCRATCHER documented in this encounter Plan of Treatment Not on filedocumented as of this encounter Visit Diagnoses Not on filedocumented in this encounter Care Teams Sausage Machine Operator Relationship Specialty Start Date End Date Judy Sorensen MD PCP - General 12/18/10 05/02/18 [address] [place] [address] documented as of this encounter
--- OUTSIDE RECORDS SUMMARY | 2022-04-27 02:58 | XMS_ITS | Encounter Summary ---
:1940 Author Organization [employer] Address [address] [place] [address] Care Team Providers Name Role Phone Judy Sorensen MD Primary Care Provider Encounter Details Date Type Department Care Team Description 10/16/2013 Lab Visit [facility] Unspecified essential hypert ension; [address] Chronic ischemic heart disea se, unspecified; [place] [address] Screening for diabetes [facility] [phone] Social History Tobacco Use Types Packs/Day Years Used Date Smoking Tobacco: Never Assessed Sex Assigned at Date Recorded Not on file documented as of this encounter Plan of Treatment Not on filedocumented as of this encounter Procedures Procedure Name Priority Date/Time Associated Diagnosis Comme nts GLUCOSE Routine 10/16/2013 2:40 PM Screening for Results for this AIRCRAFT NAVIGATOR diabetes mellitus procedure are in the results section. LIPID PANEL AND Routine 10/16/2013 2:40 PM Chronic ischemic Re sults for this DIRECT LDL(IF AIRCRAFT NAVIGATOR heart disease, procedure ar e in NEEDED) unspecified the results section. CREATININE / GFR Routine 10/16/2013 2:40 PM Unspecified essent ial Results for this AIRCRAFT NAVIGATOR hypertension (HRC) procedure are in the results section. ELECTROLYTE PANEL Routine 10/16/2013 2:40 PM Unspecified essen tial Results for this AIRCRAFT NAVIGATOR hypertension (HRC) procedure are in the results section. ALT (SGPT) Routine 10/16/2013 2:40 PM Chronic ischemic Resul ts for this AIRCRAFT NAVIGATOR heart disease, procedure are in unspecified the results section. documented in this encounter Results GLUCOSE (10/16/2013 2:40 PM AIRCRAFT NAVIGATOR) athologist Signature Lab Glucose 99 60 - 100 HP CONVERSION mg/dL Specimen Anatomical Collection Method Collection Time Receive d Time (Source) Location / / Volume Laterality 10/16/2013 2:40 PM 4 2:40 AIRCRAFT NAVIGATOR PM AIRCRAFT NAVIGATOR Narrative HP CONVERSION - 10/16/2013 5:44 PM AIRCRAFT NAVIGATOR Performed at [facility], [address] [place] [address] Judy Sorensen MD LAB_1 Performing Organization Address [facility] Phon e Number HP CONVERSION Lipid Panel and Direct LDL(If Needed) (10/16/2013 2:40 PM AIRCRAFT NAVIGATOR) [facility] Method Time Signature Cholesterol 185 0 - 200 HP CONVERSION mg/dL Triglycerides 129 0 - 149 HP CONVERSION mg/dL HDL Cholesterol 76 >39 mg/dL HP CONVERSION Cholesterol/HDL 2.4 HP CONVERSION Ratio Screen LDL Calculated 83 19 - 130 HP CONVERSION mg/dL Length Of Fast 17.0 HP CONVERSION Specimen Anatomical Collection Method Collection Time Receive d Time (Source) Location / / Volume Laterality 10/16/2013 2:40 PM 4 2:40 AIRCRAFT NAVIGATOR PM AIRCRAFT NAVIGATOR Narrative HP CONVERSION - 10/16/2013 5:44 PM AIRCRAFT NAVIGATOR Performed at [facility], [address] [place] [address] Judy Sorensen MD LAB_1 Performing Organization Address [facility] Phon e Number HP CONVERSION ALT (SGPT) (10/16/2013 2:40 PM AIRCRAFT NAVIGATOR) [facility] Method Time Signature Alanine 22 4 - 55 HP CONVERSION Aminotransferase U/L Specimen Anatomical Collection Method Collection Time Receive d Time (Source) Location / / Volume Laterality 10/16/2013 2:40 PM 4 2:40 AIRCRAFT NAVIGATOR PM AIRCRAFT NAVIGATOR Narrative HP CONVERSION - 10/16/2013 5:44 PM AIRCRAFT NAVIGATOR Performed at [facility], [address] [place] [address] Judy Sorensen MD LAB_1 Performing Organization Address [facility] Phon e Number HP CONVERSION (ABNORMAL) Electrolyte Panel (10/16/2013 2:40 PM AIRCRAFT NAVIGATOR) athologist Signature Sodium 145 137 - 147 HP CONVERSION mEq/L Potassium 4.2 3.5 - 5.2 HP CONVERSION mEq/L Chloride 103 98 - 110 HP CONVERSION mEq/L Bicarbonate 37 (H) 23 - 33 HP CONVERSION mmol/L Specimen Anatomical Collection Method Collection Time Receive d Time (Source) Location / / Volume Laterality 10/16/2013 2:40 PM 4 2:40 AIRCRAFT NAVIGATOR PM AIRCRAFT NAVIGATOR Narrative HP CONVERSION - 10/16/2013 5:44 PM AIRCRAFT NAVIGATOR Performed at [facility], [address] [place] [address] Judy Sorensen MD LAB_1 Performing Organization Address [facility] Phon e Number HP CONVERSION Creatinine / GFR (10/16/2013 2:40 PM AIRCRAFT NAVIGATOR) athologist Signature Creatinine 0.9 0.4 - 1.3 HP CONVERSION Serum mg/dL [...] Time (Source) Location / / Volume Laterality 10/16/2013 2:40 PM 4 2:40 AIRCRAFT NAVIGATOR PM AIRCRAFT NAVIGATOR Narrative HP CONVERSION - 10/16/2013 5:44 PM AIRCRAFT NAVIGATOR Performed at [facility], [address] [place] [address] Judy Sorensen MD LAB_1 Performing Organization Address [facility] Phon e Number HP CONVERSION documented in this encounter Visit Diagnoses Diagnosis Unspecified essential hypertension (HRC) Unspecified essential hypertension Chronic ischemic heart disease, unspecif ied (HRC) Chronic ischemic heart disease, unspecif ied Screening for diabetes mellitus documented in this encounter Care Teams Utility Sales Representative Relationship Specialty Start Date End Date Judy Sorensen MD PCP - General 12/18/10 05/02/18 [address] [place] [address] documented as of this encounter
--- OUTSIDE RECORDS SUMMARY | 2022-04-27 02:58 | XMS_ITS | Encounter Summary ---
:1940 Author Organization [employer] Address [address] [place] [address] Care Team Providers Name Role Phone Judy Sorensen MD Primary Care Provider Reason for Visit Reason Comments Refill Encounter Details Date Type Department Care Team Description 09/05/2013 Telephone [facility] Judy Christensen MD Refill [address] [place] [address] [place], [place] [address] (Wo rk) Social History Tobacco Use Types Packs/Day Years Used Date Smoking Tobacco: Never Assessed Sex Assigned at Date Recorded Not on file documented as of this encounter Nursing Notes Michelle Rushing - 09/06/2013 2:04 PM CST Appointment reminder letter sent. Ute Cao RN - 09/06/2013 5:37 AM CST Requested Prescriptions Signed Prescriptions Disp Refills ??? atenolol (TENORMIN) 25 mg tablet 90 tablet 0 Sig: TAKE 1 TABLET BY MOUTH DAILY (EVERY 24 HOURS). Authorizing Provider: JUDY LARSEN Ordering User: UTE CAO ??? simvastatin (ZOCOR) 80 mg tablet 90 tablet 0 Sig: TAKE 1 TABLET BY MOUTH NIGHTLY. Authorizing Provider: JUDY LARSEN Ordering User: UTE CAO ??? ranitidine (ZANTAC) 300 mg tablet 90 tablet 0 Sig: TAKE 1 TABLET BY MOUTH NIGHTLY. Authorizing Provider: JUDY LARSEN Ordering User: UTE CAO Renewed medication per medication refill protocol. REFILL APPOINTMENT NEEDED Please call patient and schedule appointment within 30 days. Medication has been renewed and sent to pharmacy for a 90 day supply. 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 [facility] [address] [place] [address] [place] [address] Dept: [phone] Sol Oliva [address] [place] [address] September 06, 2013 Dear Sol Oliva, We received your request for the following prescription(s): Orders Placed This Encounter Medications ??? atenolol (TENORMIN) 25 mg tablet Sig: TAKE 1 TABLET BY MOUTH DAILY (EVERY 24 HOURS). Dispense: 90 tablet Refill: 0 ??? simvastatin (ZOCOR) 80 mg tablet Sig: TAKE 1 TABLET BY MOUTH NIGHTLY. Dispense: 90 tablet Refill: 0 ??? ranitidine (ZANTAC) 300 mg tablet Sig: TAKE 1 TABLET BY MOUTH NIGHTLY. Dispense: 90 tablet Refill: 0 Your request was approved for a 90 day supply. You will need an appointment with your provider before your next refill. Please call [facility] at [phone] to schedule an appointment within 30 days. Thank you for choosing [facility] for your health care needs. Your [facility] Primary Care Team TECHNICIAN documented in this encounter Plan of Treatment Not on filedocumented as of this encounter Visit Diagnoses Not on filedocumented in this encounter Care Teams Management Technician Relationship Specialty Start Date End Date Judy Sorensen MD PCP - General 12/18/10 05/02/18 [address] [place] [address] documented as of this encounter
--- OUTSIDE RECORDS SUMMARY | 2022-04-27 02:58 | XMS_ITS | Encounter Summary ---
:1940 Author Organization [employer] Address [address] [address] Care Team Providers Name Role Phone Judy Sorensen MD Primary Care Provider Encounter Details Date Type Department Care Team Description 05/25/2011 Notes/Orders [facility] Judy Sorensen, Othe r and unspecified hyperlipidemia; Medicine Unspecified essential hypertension [address] [place] [address] [place], [place] [phone] (Wo rk) Social History Tobacco Use Types Packs/Day Years Used Date Smoking Tobacco: Never Assessed Sex Assigned at Date Recorded Not on file documented as of this encounter Plan of Treatment Not on filedocumented as of this encounter Procedures Procedure Name Priority Date/Time Associated Diagnosis Comme nts US CECY LOWER Routine 05/27/2011 11:36 AM [facility] ts for this EXTREMITY PHYSIO CDT procedure a re in STUDY SINGLE LEVEL the [facility] ts section. documented in this encounter Results US CECY Lower Extremity Physio Study Single Level (05/27/2011 11:36 AM CDT) Anatomical Region Laterality Modality Vascular, Leg Other Specimen (Source) Anatomical Location Collection Method / Collectio n Time Received Time / Laterality Volume Impressions 05/27/2011 3:04 PM CDT Normal ankle/brachial within the lower extremities, bilaterally. Normal right and mildly reduced left dig it/brachial pressure index. Narrative 05/27/2011 3:04 PM CDT Indication: Peripheral vascular disease A Doppler examination with ankle/brachi al and digit pressures were performed on the bilateral lower extremi ties. RIGHT LOWER EXTREMITY There are reduced biphasic Doppler wave forms present within the posterior tibial and dorsalis pedis dain alex. The right ankle/brachial pressure index is normal at 1.02. The right digit/brachial pressure index is normal at 0.66. LEFT LOWER EXTREMITY There are reduced biphasic Doppler wave forms present within the posterior tibial and dorsalis pedis dain alex. The left ankle/brachial pressure index is normal at 1.00. The digit/brachial pressure index is mi ldly reduced at 0.53. FINAL Procedure Note Jose Rodriguez MD - 03/04/2016Formatt ing of this note might be different from the original. Indication: Peripheral vascular disease A Doppler examination with ankle/brachi al and digit pressures were performed on the bilateral lower extremi ties. RIGHT LOWER EXTREMITY There are reduced biphasic Doppler wave forms present within the posterior tibial and dorsalis pedis dain alex. The right ankle/brachial pressure index is normal at 1.02. The right digit/brachial pressure index is normal at 0.66. LEFT LOWER EXTREMITY There are reduced biphasic Doppler wave forms present within the posterior tibial and dorsalis pedis dain alex. The left ankle/brachial pressure index is normal at 1.00. The digit/brachial pressure index is mi ldly reduced at 0.53. FINAL IMPRESSION Normal ankle/brachial within the lower extremities, bilaterally. Normal right and mildly reduced left dig it/brachial pressure index. Judy Sorensen MD [facility] documented in this encounter Visit Diagnoses Diagnosis Other and unspecified hyperlipidemia (HR C) Other and unspecified hyperlipidemia Unspecified essential hypertension (HRC) Unspecified essential hypertension documented in this encounter Care Teams District Operations Manager Relationship Specialty Start Date End Date Judy Sorensen MD PCP - General 12/18/10 05/02/18 [address] [place] [address] documented as of this encounter
--- OUTSIDE RECORDS SUMMARY | 2022-04-27 02:58 | XMS_ITS | Encounter Summary ---
:1940 Author Organization [employer] Address [address] [place] [address] Care Team Providers Name Role Phone Judy Sorensen MD Primary Care Provider Encounter Details Date Type Department Care Team Description 06/04/2009 PN Conversion Only [facility] [address] [address] [place] [address] Social History Tobacco Use Types Packs/Day Years Used Date Smoking Tobacco: Never Assessed Sex Assigned at Date Recorded Not on file documented as of this encounter Plan of Treatment Not on filedocumented as of this encounter Visit Diagnoses Not on filedocumented in this encounter Care Teams Performance Engineer Relationship Specialty Start Date End Date Judy Sorensen MD PCP - General 12/18/10 05/02/18 [address] [place], [place] [address] documented as of this encounter
--- OUTSIDE RECORDS SUMMARY | 2022-04-27 02:58 | XMS_ITS | Encounter Summary ---
:1940 Author Organization [facility] Address [address] [place] [address] Care Team Providers Name Role Phone Judy Sorensen MD Primary Care Provider Encounter Details Date Type Department Care Team Description 10/31/2012 Lab Visit [facility] Unspecified essential [id number] [place] [address] [place] [address] Social History Tobacco Use Types Packs/Day Years Used Date Smoking Tobacco: Never Assessed Sex Assigned at Date Recorded Not on file documented as of this encounter Plan of Treatment Not on filedocumented as of this encounter Procedures Procedure Name Priority Date/Time Associated Diagnosis Comme nts ELECTROLYTE PANEL Routine 10/31/2012 12:30 PM Unspecified esse ntial Results for this LOGGING EQUIPMENT OPERATOR hypertension (HRC) procedure are in the results section. documented in this encounter Results Electrolyte Panel (10/31/2012 12:30 PM LOGGING EQUIPMENT OPERATOR) P athologist Signature Sodium 139 137 - 147 HP CONVERSION mEq/L Potassium 4.1 3.5 - 5.2 HP CONVERSION mEq/L Chloride 104 98 - 110 HP CONVERSION mEq/L Bicarbonate 29 23 - 33 HP CONVERSION mmol/L Specimen Anatomical Collection Method Collection Time Receive d Time (Source) Location / / Volume Laterality 10/31/2012 12:30 10/31/2012 PM LOGGING EQUIPMENT OPERATOR 12:30 PM LOGGING EQUIPMENT OPERATOR Narrative HP CONVERSION - 10/31/2012 4:34 PM LOGGING EQUIPMENT OPERATOR Performed at [facility], [address] [place] [address] Judy Sorensen MD LAB_1 Performing Organization Address City/State/[facility] Code Phon e Number HP CONVERSION documented in this encounter Visit Diagnoses Diagnosis Unspecified essential hypertension (HRC) Unspecified essential hypertension documented in this encounter Care Teams Crimping Machine Operator For Metal Relationship Specialty Start Date End Date Judy Sorensen MD PCP - General 12/18/10 05/02/18 [address] [place] [address] documented as of this encounter
--- OUTSIDE RECORDS SUMMARY | 2022-04-27 02:58 | XMS_ITS | Encounter Summary ---
:1940 Author Organization [employer] Address [address] [place] [address] Care Team Providers Name Role Phone Judy Sorensen MD Primary Care Provider Reason for Visit Reason Comments Other Encounter Details Date Type Department Care Team Description 07/16/2009 Telephone Special[facility] [address], [facility]ology [address] [facility] [place] [address] Social History Tobacco Use Types Packs/Day Years Used Date Smoking Tobacco: Never Assessed Sex Assigned at Date Recorded Not on file documented as of this encounter Progress Notes [employer], Message - 07/16/2009 9:26 AM CDT Phone Note filed by incuBET at 01/07/11 5950 Author: incuBET Service: (none) Author Type: (none) Filed: 01/07/11 5328 Note Time: 07/16/09925 Status: Signed Non Categorical Preschool Teacher: incuBET (Resource) GI dept mailed letter reminding pt to schedule f/u colonoscopy due in Sep 2009. Created on 16Jul2009 9:26am by NI GRAF On 28Sep2009 11:44am COLLIN SINGLETON wrote: pt called about letter sent had colonoscopy 2007 and letter from recommended 5yr f/u. Revised waitlist for 2012 ER INSPECTOR documented in this encounter Plan of Treatment Not on filedocumented as of this encounter Visit Diagnoses Not on filedocumented in this encounter Care Teams Repair Coil Winder Relationship Specialty Start Date End Date Judy Sorensen MD PCP - General 12/18/10 05/02/18 [address] [place] [address] documented as of this encounter
--- OUTSIDE RECORDS SUMMARY | 2022-04-27 02:58 | XMS_ITS | Encounter Summary ---
:1940 Author Organization [facility] Address [address] [place] [address] Care Team Providers Name Role Phone Judy Sorensen MD Primary Care Provider Encounter Details Date Type Department Care Team Description 04/01/2014 Imaging [facility] Other screening mammogram [address] [place] [address] Social History Tobacco Use Types Packs/Day Years Used Date Smoking Tobacco: Never Assessed Sex Assigned at Date Recorded Not on file documented as of this encounter Plan of Treatment Not on filedocumented as of this encounter Procedures Procedure Name Priority Date/Time Associated Diagnosis Comme nts MM MAMMOGRAM Routine 04/01/2014 12:38 PM Other screening Resul ts for this SCREENING BILAT W CDT mammogram procedure are in CAD the results section. documented in this encounter Results MM Mammogram Screening Bilat W CAD (04/01/2014 12:38 PM CDT) Anatomical Region Laterality Modality Breast Bilateral Mammography Specimen (Source) Anatomical Location Collection Method / Collectio n Time Received Time / Laterality Volume Impressions 04/01/2014 2:08 PM CDT : BIRADS 1 Negative (overall) Follow Up Mammogram in 1 year - Gómez saunders The results and recommendations of this examination will be communicated to the patient by the [facility] and we will attempt to schedule any recommended imaging follow up with the patient. Narrative 04/01/2014 2:08 PM CDT Compared to: 10/31/2012 MM MAMMOGRAM DIGITAL SCRN W CAD, 10/05/2011 MM MAMMOGRAM DIGITAL SCRN W CAD, 09/07/2010 MM MAMMOGRAM DIGITAL SCRN W CAD Bilateral Breast Findings: There are scattered fibroglandular densi ties (25-50%) in the breasts. No significant mass, calcifications or o ther abnormalities are seen in either breast. Procedure Note Jose Quezada MD - 05/12/2016Formatti ng of this note might be different from the original. Compared to: 10/31/2012 MM MAMMOGRAM DIG ITAL SCRN W CAD, 10/05/2011 MM MAMMOGRAM DIGITAL SCRN W CAD, 09/07/2010 MM MAMMOGRAM DIGITAL SCRN W CAD Bilateral Breast Findings: There are scattered fibroglandular densi ties (25-50%) in the breasts. No significant mass, calcifications or o ther abnormalities are seen in either breast. IMPRESSION : BIRADS 1 Negative (overall) Follow Up Mammogram in 1 year - Gómez saunders The results and recommendations of this examination will be communicated to the patient by the [facility] and we will attempt to schedule any recommended imaging follow up with the patient. Judy Sorensen MD RAD [facility] documented in this encounter Visit Diagnoses Diagnosis Other screening mammogram documented in this encounter Care Teams Laborer [employer] Relationship Specialty Start Date End Date Judy Sorensen MD PCP - General 12/18/10 05/02/18 [address] [place] [address] documented as of this encounter
--- OUTSIDE RECORDS SUMMARY | 2022-04-27 02:58 | XMS_ITS | Encounter Summary ---
:1940 Author Organization [employer] Address [address] [place] [address] Care Team Providers Name Role Phone Judy Sorensen MD Primary Care Provider Reason for Visit Reason Comments ERRONEOUS ENTRY Encounter Details Date Type Department Care Team Description 05/09/2011 Refill [facility] Judy Christensen MD ERRONEOUS ENTRY [address] [place] [address] [place], [place] [address] (Wo rk) Social History Tobacco Use Types Packs/Day Years Used Date Smoking Tobacco: Never Assessed Sex Assigned at Date Recorded Not on file documented as of this encounter Nursing Notes Aysha Espinoza - 05/09/2011 8:59 AM CDT Per [facility], Medication was filled for 30 days/ Please disregard this note. Aysha Espinoza - 05/09/2011 8:58 AM CDT Non -Symptom Message from Front Line Primary Care Provider: Judy Larsen MD, MD Message: Patient is calling stating that she is out of her Atenolol & has scheduled an appt for a physical on 05/25. Patient is asking for enough medication to get her until her appt/ or a 30 day supply, whichever you decide. Please call patient to advise. documented in this encounter Plan of Treatment Not on filedocumented as of this encounter Visit Diagnoses Not on filedocumented in this encounter Care Teams Biotechnician Relationship Specialty Start Date End Date Judy Sorensen MD PCP - General 12/18/10 05/02/18 [address] [place] [address] documented as of this encounter
--- OUTSIDE RECORDS SUMMARY | 2022-04-27 02:58 | XMS_ITS | Encounter Summary ---
:1940 Author Organization [employer] Address [address] [place] [address] Care Team Providers Name Role Phone Judy Sorensen MD Primary Care Provider Encounter Details Date Type Department Care Team Description 03/05/2010 PN Conversion Only RAST[facility]AR[facility] CONVERSION Judy Sorensen MD [address] [place] [address] (Wo rk) Social History Tobacco Use Types Packs/Day Years Used Date Smoking Tobacco: Never Assessed Sex Assigned at Date Recorded Not on file documented as of this encounter Plan of Treatment Not on filedocumented as of this encounter Procedures Procedure Name Priority Date/Time Associated Comments Diagnosis VITAMIN D 25 OH Routine 03/05/2010 8:02 AM Result s for this CDT procedure are i n the results section. LIPID PANEL AND Routine 03/05/2010 8:02 AM Result s for this DIRECT LDL(IF CDT procedure are in NEEDED) the results section. CREATININE / GFR Routine 03/05/2010 8:02 AM Resul ts for this CDT procedure are i n the results section. ALT (SGPT) Routine 03/05/2010 8:02 AM Results f or this CDT procedure are i n the results section. documented in this encounter Results Lipid Panel and Direct LDL(If Needed) (03/05/2010 8:02 AM CDT) [facility] Method Time Signature Cholesterol 182 0 - 200 HP CONVERSION mg/dL Triglycerides 129 0 - 149 HP CONVERSION mg/dL HDL Cholesterol 59 >39 mg/dL HP CONVERSION Cholesterol/HDL 3.1 No normal HP CONVERSION Ratio Screen range LDL Calculated 97 19 - 130 HP CONVERSION mg/dL Length Of Fast 12 No normal HP CONVERSION range Specimen (Source) Anatomical Collection Method Collection Time Re ceived Time Location / / Volume Laterality 03/05/2010 8:02 AM CDT Judy Sorensen MD LAB_1 Performing Organization Address [facility] Phon e Number HP CONVERSION Creatinine / GFR (03/05/2010 8:02 AM CDT) athologist Signature Creatinine 0.8 0.4 - 1.3 HP CONVERSION Serum mg/dL Est GFR >60 >60 HP CONVERSION Am mL/min/1.7 Est GFR Non-Afr >60 >60 HP CONVERSION Am mL/min/1.7 Comment: Normal>60, moderate decrease 30 - 59, se james decrease 15 - 29, renal failure <15 mL/min/1.73 m2 NOTE: ??Choose the eGFR result above johanne ropriate for the race of the patient. Specimen (Source) Anatomical Collection Method Collection Time Re ceived Time Location / / Volume Laterality 03/05/2010 8:02 AM CDT Judy Sorensen MD LAB_1 Performing Organization Address [facility] Phon e Number HP CONVERSION ALT (SGPT) (03/05/2010 8:02 AM CDT) [facility] gist Method Time Signature Alanine 17 4 - 55 HP CONVERSION Aminotransferase U/L Specimen (Source) Anatomical Collection Method Collection Time Re ceived Time Location / / Volume Laterality 03/05/2010 8:02 AM CDT Judy Sorensen MD LAB_1 Performing Organization Address [facility] Phon e Number HP CONVERSION (ABNORMAL) VITAMIN D 25 OH (03/05/2010 8:02 AM CDT) P athologist Signature Vitamin D 25 11 (L) 30 - 80 HP CONVERSION Oh ng/mL Comment: REFERENCE INTERVAL: Vitamin D, 25-Hydrox y This assay accurately quantifies the sum of vitamin D3, 25-hydroxy and vitamin D2, 25-hydroxy. 0-17 years: Deficiency: less than 20 ng/mL Optimum level: greater than or equal to 20 ng/mL* *(Demarcus CL et al. Pediatrics 2008; 122: 1128-38.) 18 years and older: Deficiency: Less than 20 ng/mL Insufficiency: 20-29 ng/mL Optimum Level: 30-80 ng/mL Possible Toxicity: Greater than 150 ng/m L Performed at [facility] [address] [place] [address] 8 Specimen (Source) Anatomical Collection Method Collection Time Re ceived Time Location / / Volume Laterality 03/05/2010 8:02 AM CDT Judy Sorensen MD LAB_1 Performing Organization Address City/State/ZIP Code Phon e Number HP CONVERSION documented in this encounter Visit Diagnoses Not on filedocumented in this encounter Care Teams Steel Construction Worker Relationship Specialty Start Date End Date Judy Sorensen MD PCP - General 12/18/10 05/02/18 [address] [place] [address] documented as of this encounter
--- OUTSIDE RECORDS SUMMARY | 2022-04-27 02:58 | XMS_ITS | Encounter Summary ---
:1940 Author Organization [facility] Address [address] [place] [address] Care Team Providers Name Role Phone Judy Sorensen MD Primary Care Provider Encounter Details Date Type Department Care Team Description 03/05/2009 Nursing Visit [facility] Jose Rosas MD [facility] [address] [facility] [address] [place] [address] [place] [address] [phone] Social History Tobacco Use Types Packs/Day Years Used Date Smoking Tobacco: Never Assessed Sex Assigned at Date Recorded Not on file documented as of this encounter Plan of Treatment Not on filedocumented as of this encounter Visit Diagnoses Not on filedocumented in this encounter Care Teams Electric Motor Repairman Relationship Specialty Start Date End Date Judy Sorensen MD PCP - General 12/18/10 05/02/18 [address] [place] [address] documented as of this encounter
--- OUTSIDE RECORDS SUMMARY | 2022-04-27 02:58 | XMS_ITS | Encounter Summary ---
:1940 Author Organization [employer] Address [address], [place] [address] Care Team Providers Name Role Phone Judy Sorensen MD Primary Care Provider Encounter Details Date Type Department Care Team Description 03/10/2010 Office Visit [facility] Gwen Sorensen MD [address] [address] [place] [address] [phone] Social History Tobacco Use Types Packs/Day Years Used Date Smoking Tobacco: Never Assessed Sex Assigned at Date Recorded Not on file documented as of this encounter Last Filed Vital Signs Vital Sign Reading Time Taken Comments Blood Pressure 132/74 03/10/2010 3:06 PM CDT Pulse 68 03/10/2010 3:06 PM CDT Temperature - - Respiratory Rate - - Oxygen Saturation - - Inhaled Oxygen Concentration - - Weight 66.2 kg (145 lb 15.8 oz) 03/10/2010 3:06 PM C: 6 6.2kg CDT Height 152.4 cm (5') 03/10/2010 3:06 PM C: 152.4cm CDT Body Mass Index 28.51 03/10/2010 3:06 PM CDT documented in this encounter Progress Notes Judy Larsen MD - 03/10/2010 12:01 AM CDT H&P signed by Judy Larsen MD at 03/14/10 9070 Author: Judy Larsen MD Service: (none) Author Type: Physician Filed: 01/08/11 2319 Note Time: 03/10/10 0001 Status: Signed Kiln Burner: Judy Larsen MD (Physician) PAP & Pelvic Medicare IMPRESSION: Smoking. Hypertension. Hyperlipidemia. Reflux. SUBJECTIVE: 69 y/o female presents for routine preventive pelvic exam. Patient voices concerns about: needs medications refilled, and due for follow-up of hyperlipidemia, hypertension and reflux. Continues to smoke, some interest in quiting. Feels she can do it if she is determined. Has quit for short times in the past. Requests medication refill. Patient is post-menopausal. Past Medical History: Patient's active medical problems were reviewed and updated on the Health Profile screen of the Electronic Medical Record. Pap History: Last Pap smear: 02/23 No history of abnormal Pap smears. Other Medical/Surgical History: Hypertension. Hyperlipidemia. Adverse Drug Reactions: Patient's Adverse Drug Reactions were reviewed today, and updated on the Health Profile of the Electronic Medical Record. Current Medications: Reviewed today and updated on Health Profile in the Electronic Medical Record. Current Medications: simvastatin 80 mg. atenolol 25 mg. vit D3 1000 IU daily, ranitidine 300 mg daily. Family History: (First degree family members) Premature ASCVD. Hypertension. Hyperlipidemia. Social History: Employment status: Retired. Marital Status: . Habits Tobacco: 1 pack per day. Preventive Health Assessment: Tetanus immunization is overdue. Review of Systems: With the exception of any items noted above, the remainder of complete ROS is negative. OBJECTIVE: Vital Signs: Vital Signs taken today were reviewed on the flowsheet in the Electronic Medical Record. Weight: 14 lbs. Height: 60 in. Blood Pressure: 132/74. General: Patient alert, in NAD. HEENT: PERRLA. Bilateral TM's, external ?canals, oropharynx normal. Neck: Supple, without thyromegaly or mass. Upper extremities: FROM with good strength, no lesions or deformities. CV: A RRR without murmurs, rubs or gallops. Resp: Clear to auscultation without Bcrackles, wheezes or distress. Abdomen: Soft, non-tender, without Chepatosplenomegaly, masses, or hernias. Breasts: Nontender, without Dmasses, nipple discharge, erythema, or axillary adenopathy. Pelvic: Normal external genitalia and urethra. Basye, moist vaginal and cervical mucosa, without lesions. On bimanual exam, uterus is mobile, normal size, shape & Gconsistency, with no uterine or adenexal masses appreciated. Rectal: HNormal tone without palpable lesions. Lymphatic: No neck, supraclavicular, Iaxillary or groin lymphadenopathy. Lower extremities: FROM, normal gait Jwithout edema, lesions, or deformity. Skin: No lesions. Neuro: CN KII-XII, motor & sensory function all intact. Psychiatric: Alert & oriented with normal affect and insight, does not appear depressed or anxious. ASSESSMENT: Smoking. Hypertension. Hyperlipidemia. Reflux. Pap and pelvic medicare. PLAN: Pap smear. Repeat every 24 mos. Mammogram. Repeat q 12-24 mos. We will mail lab results to patient. Reviewed labs obtained 03/05, Prescriptions provided, see OP Med list on Health Profile in the Electronic Medical Record. Adult Td vaccine given. *SH~PC~PEF ~[place] Note completed on: 03/14/2010 9:44 PM documented in this encounter Plan of Treatment Not on filedocumented as of this encounter Visit Diagnoses Not on filedocumented in this encounter Care Teams Tight Rope Walker Relationship Specialty Start Date End Date Judy Sorensen MD PCP - General 12/18/10 05/02/18 [address] [place] [address] documented as of this encounter
--- OUTSIDE RECORDS SUMMARY | 2022-04-27 02:58 | XMS_ITS | Encounter Summary ---
:1940 Author Organization [employer] Address [address] [place] [address] Care Team Providers Name Role Phone Judy Sorensen MD Primary Care Provider Reason for Visit Reason Comments Other Encounter Details Date Type Department Care Team Description 02/22/2010 Telephone [facility], Message Other [address] [place], [place] [address] Social History Tobacco Use Types Packs/Day Years Used Date Smoking Tobacco: Never Assessed Sex Assigned at Date Recorded Not on file documented as of this encounter [facility], Message - 02/22/2010 8:47 AM CDT Phone Note filed by Before the Call at 01/08/11937 Author: Before the Call Service: (none) Author Type: (none) Filed: 01/08/11937 Note Time: 02/22/10 08 Status: Signed Antique Clocks Repairer: Before the Call (Resource) Lab/Radiology Requests Caller Name/Relationship:ewndy apryl Primary Industrial Yard Brake Coupler:layton What test is needed and when?blood draw. Please send orders to the [facility] [facility], appt scheduled 03/05. Patient has scheduled a Welcome to Medicare physical for 03/10/10. Why is test needed/requested?annual physical *If symptom related, send to triage Applied Psychology Teacher:wendy Best call back number:[phone] Is it OK to leave a confidential message on this voicemail?y *[id number] Created on 22Feb2010 8:47am by FAUSTO MOSS Acknowledged by YVES MANSFIELD on 9:54am On 23Feb2010 2:06pm JUDY GARCÍA wrote: Glucose as screen. She needs an annual chol frat, alt for 272.4 and creat, for HTN, may not be included under the Welcome to Medicare physical, as they are needed to monitor her known health conditions and medications. Will need an EKG the day of the visit, can't do the week before or it won't be covered. I like to check a screening Vit D level, but that may not be included either under the Welcome to Medicare visit. Acknowledged by JUDY GARCÍA on 2:06pm On 24Feb2010 9:20am YVES MANSFIELD wrote: Too late for welcome to medicare physical. Lab order sent to lab. Patient aware. Acknowledged by YVES MANSFIELD on 9:20am On 24Feb2010 2:55pm KIARA JOSEPH wrote: Pt Wendy calling with px concern. Contact #[phone]. On 24Feb2010 3:06pm BRENNEN MILLER wrote: Patient wants to know why she cannot have welcome to medicare physical. She has not had one since being on medicare. Please contact her at [phone]. On 25Feb2010 10:00am EDI HERRERA wrote: Contacted patient and she has more questions.Gave her the number for the business office and PALS. T TECHNICAL SPECIALIST documented in this encounter Plan of Treatment Not on filedocumented as of this encounter Visit Diagnoses Not on filedocumented in this encounter Care Teams Supervisor Lending Activities Relationship Specialty Start Date End Date Judy Sorensen MD PCP - General 12/18/10 05/02/18 [address] [place] [address] documented as of this encounter
--- OUTSIDE RECORDS SUMMARY | 2022-04-27 02:58 | XMS_ITS | Encounter Summary ---
:1940 Author Organization [employer] Address [address] [place] [address] Care Team Providers Name Role Phone Judy Sorensen MD Primary Care Provider Reason for Visit Reason Comments Refill Encounter Details Date Type Department Care Team Description 05/04/2011 Refill [facility] Judy Christensen MD Refill [address] [place] [address] [place], [place] [phone] (Wo rk) Social History Tobacco Use Types Packs/Day Years Used Date Smoking Tobacco: Never Assessed Sex Assigned at Date Recorded Not on file documented as of this encounter Nursing Notes Diane Perez LPN - 05/06/2011 12:16 PM CDT Called and spoke with Sol's , He. I gave him the message to tell Sol that she needs to be seen by Dr. Larsen and have labs done before she can prescribe more medication. He said he would tell Sol to make an appt. to see Dr. Larsen. Jose Rosas MD - 05/05/2011 4:43 PM CDT This should have been sent directly to Dr. Larsen. Please forward. Ayesha Ly RN - 05/05/2011 2:54 PM CDT UNABLE TO REFILL PER MEDICAL REFILL PROTOCOL Comment: last qualified visit and labs 03/10/10. No pending appt. documented in this encounter Plan of Treatment Not on filedocumented as of this encounter Visit Diagnoses Not on filedocumented in this encounter Care Teams Manager Molecular Relationship Specialty Start Date End Date Judy Sorensen MD PCP - General 12/18/10 05/02/18 [address] [place] [address] documented as of this encounter
--- OUTSIDE RECORDS SUMMARY | 2022-04-27 02:58 | XMS_ITS | Encounter Summary ---
:1940 Author Organization [employer] Address [address] [place] [address] Care Team Providers Name Role Phone Judy Sorensen MD Primary Care Provider Encounter Details Date Type Department Care Team Description 09/07/2010 PN Conversion [facility] [address] [place] [address] Social History Tobacco Use Types Packs/Day Years Used Date Smoking Tobacco: Never Assessed Sex Assigned at Date Recorded Not on file documented as of this encounter Plan of Treatment Not on filedocumented as of this encounter Visit Diagnoses Not on filedocumented in this encounter Care Teams Machine Operator Farmworker Relationship Specialty Start Date End Date Juyd Sorensen MD PCP - General 12/18/10 05/02/18 [address] [place], [place] [address] documented as of this encounter
--- OUTSIDE RECORDS SUMMARY | 2022-04-27 02:58 | XMS_ITS | Encounter Summary ---
:1940 Author Organization [employer] Address [address] [place] [address] Care Team Providers Name Role Phone Judy Sorensen MD Primary Care Provider Encounter Details Date Type Department Care Team Description 09/26/2011 Notes/Orders Judy Ellis, Other scr eening Mammography mammogram [address] [place] [address] [place], [place] [phone] (Wo rk) Social History Tobacco Use Types Packs/Day Years Used Date Smoking Tobacco: Never Assessed Sex Assigned at Date Recorded Not on file documented as of this encounter Plan of Treatment Not on filedocumented as of this encounter Procedures Procedure Name Priority Date/Time Associated Diagnosis Comme nts MM MAMMOGRAM Routine 10/05/2011 9:07 AM Other screening Result s for this SCREENING BILAT W FILER REPAIRER mammogram procedure are in CAD the results section. documented in this encounter Results MM Mammogram Screening Bilat W CAD (10/05/2011 9:07 AM FILER REPAIRER) Anatomical Region Laterality Modality Breast Bilateral Mammography Specimen (Source) Anatomical Location Collection Method / Collectio n Time Received Time / Laterality Volume Impressions 10/06/2011 10:48 AM FILER REPAIRER IMPRESSION: BILATERAL BREASTS Negative, no evidence of malignancy. Nor mal interval follow-up is recommended in 12 months. OVERALL ASSESSMENT - CATEGORY 1 - NEGATI VE END OF IMPRESSION BJ Narrative 10/06/2011 10:48 AM FILER REPAIRER Comparison is made to films from 010 (bilateral) and films from 06/12/2009 (bilateral) and films fr 04/04/2008 (bilateral). There is no significant interval change. Bilateral Breast Findings: There are scattered fibroglandular densi ties (11% - 50% fibroglandular). No significant masses, calcifications or other abnormalities are seen. Procedure Note Kiley Bourgeois MD - 05/11/2016Formattin g of this note might be different from the original. Comparison is made to films from 010 (bilateral) and films from 06/12/2009 (bilateral) and films fr 04/04/2008 (bilateral). There is no significant interval change. Bilateral Breast Findings: There are scattered fibroglandular densi ties (11% - 50% fibroglandular). No significant masses, calcifications or other abnormalities are seen. IMPRESSION IMPRESSION: BILATERAL BREASTS Negative, no evidence of malignancy. Nor mal interval follow-up is recommended in 12 months. OVERALL ASSESSMENT - CATEGORY 1 - NEGATI VE END OF IMPRESSION BJ Judy Sorensen MD RAD [facility] documented in this encounter Visit Diagnoses Diagnosis Other screening mammogram documented in this encounter Care Teams Volunteer Fire Fighter Relationship Specialty Start Date End Date Judy Sorensen MD PCP - General 12/18/10 05/02/18 [address] [place] [address] documented as of this encounter
--- OUTSIDE RECORDS SUMMARY | 2022-04-27 02:58 | XMS_ITS | Encounter Summary ---
:1940 Author Organization [employer] Address [address] [place] [address] Care Team Providers Name Role Phone Judy Sorensen MD Primary Care Provider Encounter Details Date Type Department Care Team Description 05/27/2011 [facility] [address] [facility]. [place], [place] [address] Social History Tobacco Use Types Packs/Day Years Used Date Smoking Tobacco: Never Assessed Sex Assigned at Date Recorded Not on file documented as of this encounter Medications at Time of Discharge Medication Sig Dispensed Refills Start Date End Date aspirin EC 81 MG enteric Take 1 tablet by 30 tablet 12 05/2510/16/2013 coated tabletIndications: mouth every other Chronic ischemic heart day. disease, unspecified (HRC) ATENolol (AKA TENORMIN) 25 Take 1 tablet by 90 tablet 4 03/201108/23/2012 MG tabletIndications: mouth daily (every Chronic ischemic heart 24 hours). disease, unspecified (HRC), Unspecified essential hypertension (HRC) cholecalciferol (AKA Take 1 tablet by 90 3 0 09/19/2012 VITAMIN D3) 1000 UNITS mouth daily (every tablet 24 hours). ranitidine (AKA ZANTAC) 300 Take 1 tablet by 90 tablet 4 08/23/2012 MG tabletIndications: mouth nightly. Esophageal reflux simvastatin (AKA ZOCOR) 80 TAKE 1 TABLET (80 30 tablet 0 06/06/2011 MG tablet MG) BY ORAL ROUTE ONCE DAILY IN THE EVENING Cholecalciferol (VITAMIN D Take by mouth 0 201012/23/2014 OR)Indications: Well woman daily (every 24 exam hours). documented as of this encounter Plan of Treatment Not on filedocumented as of this encounter Visit Diagnoses Not on filedocumented in this encounter Care Teams Safety And Skill Based Pay Manager Relationship Specialty Start Date End Date Jduy Sorensen MD PCP - General 12/18/10 05/02/18 [address] [place] [address] documented as of this encounter
--- OUTSIDE RECORDS SUMMARY | 2022-04-27 02:58 | XMS_ITS | Encounter Summary ---
:1940 Author Organization [employer] Address [address], [place] [address] Care Team Providers Name Role Phone Judy Sorensen MD Primary Care Provider Reason for Visit Reason Comments Annual Exam Encounter Details Date Type Department Care Team Description 05/25/2011 Office Visit [facility] Judy Sorensen, Uns ecified chronic ischemic heart disease (Primary Dx); Medicine Well woman exam; [address] Esophageal reflux; [place] [address] [place], [place] Unspecified essential hypert ension [phone] (Wo rk) Social History Tobacco Use Types Packs/Day Years Used Date Smoking Tobacco: Never Assessed Sex Assigned at Date Recorded Not on file documented as of this encounter Last Filed Vital Signs Vital Sign Reading Time Taken Comments Blood Pressure 168/74 05/25/2011 11:15 AM CDT Pulse - - Temperature - - Respiratory Rate - - Oxygen Saturation - - Inhaled Oxygen Concentration - - Weight 61.2 kg (135 lb) 05/25/2011 11:15 AM CDT Height 152.4 cm (5') 05/25/2011 11:15 AM CDT Body Mass Index 26.37 05/25/2011 11:15 AM CDT documented in this encounter Progress Notes Judy Larsen MD - 06/01/2011 8:53 PM CDT Subjective: Sol Oliva is a 70 y.o. female and is here for a comprehensive physical exam. The patient reports problems - sebaceous cyst, mid-chest, right neck and knee, sometimes sore. Not ready to quit smoking, although would like to be able to. Longest time off cigarettes was 3 months. Has quit 3 times before. Denies claudication, but finds it more difficult to walk again due to leg fatigue and aching. History: LMP: No LMP recorded. Patient is postmenopausal. Menopause at 50+ years Last pap date: 02/2010 Abnormal pap? no : 3 Para: 3 Past Medical History Diagnosis Date ??? Coronary artery disease ??? Hypertension ??? Hyperlipidemia Patient Active Problem List Diagnoses Date Noted ??? Hemorrhoids Internal NOS #*LW 9 [455.0] 02/29/2008 Class: Chronic ??? Diverticulosis Colon #*LW 10 [562.10] 02/29/2008 Class: Chronic ??? Hypertension #*LW 7 [401.9] 12/02/2005 Class: Chronic ??? Osteopenia #*LW 5 [733.90] 07/14/2004 Class: Chronic ??? 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 Tubal Ligation Elective #*LW 4 [V25.2] 07/05/2004 Class: Historical ??? Tobacco Abuse #*LW 1 [305.1] 02/22/2003 Class: Chronic ??? Ischemic Heart Disease #*LW 2 [414.9] 02/22/2003 Class: Chronic ??? Gastroesophageal Reflux Disease #*LW 3 [530.81] 02/22/2003 Class: Chronic Past Surgical History Procedure Date ??? Aorto-femoral bypass graft LW Problem: Aortofemoral Bypass s/p LW Onset: 2006 ??? Tubal ligation Family History Problem Relation Age of Onset ??? Heart Disease Mother ??? Heart Disease Father ??? High Blood Pressure Father ??? High Cholesterol Father History Social History ??? Marital Status: Spouse Name: He Number of Children: 3 ??? Years of Education: N/A Social History Main Topics ??? Smoking status: Current Everyday Smoker -- 0.5 packs/day for 40 years Types: Cigarettes ??? Smokeless tobacco: Not on file Comment: Smoking History Packs/day: ??? Alcohol Use: Yes Alcoholic Drinks/day: Amount:1-2 drinks; Freq:=> 4/week ; ??? Drug Use: ??? Sexually Active: Other Topics Concern ??? Exercise No ??? Seat Belt Yes Social History Narrative ??? No narrative on file Current outpatient prescriptions Medication Sig Dispense Refill ??? aspirin EC 81 mg EC tablet Take 1 tablet by mouth every other day. 30 tablet 12 ??? atenolol (TENORMIN) 25 mg tablet Take 1 tablet by mouth daily (every 24 hours). 90 tablet 04 ??? cholecalciferol (VITAMIN D) 1,000 unit Tab Take 1 tablet by mouth daily (every 24 hours). 90 3 ??? CHOLECALCIFEROL, VITAMIN D3, (VITAMIN D-3 ORAL) Take by mouth daily (every 24 hours). ??? ranitidine (ZANTAC) 300 mg tablet Take 1 tablet by mouth nightly. 90 tablet 04 ??? simvastatin (ZOCOR) 80 mg tablet TAKE 1 TABLET (80 MG) BY ORAL ROUTE ONCE DAILY IN THE EVENING 30 tablet 0 Allergies Allergen Reactions ??? No Known Drug Allergies ??? Contrast Media LW CM1: CONTRAST- nka Reaction : ??? Food Intolerance LW FI1: nka ??? Other LW Other1: -nka Do you take any herbs or supplements that were not prescribed by a doctor? no Are you taking calcium supplements? yes Are you taking aspirin daily? no, not consistently. Review of Systems Do you have pain that bothers you in your daily life? no Pertinent items are noted in HPI. Objective: BP 168/74 Ht 5' (152.4 cm) Wt 135 lb (91362 g) BMI 26.37 kg/m2 General appearance: alert, cooperative, no distress, appears stated age Head: Normocephalic, without obvious abnormality, atraumatic Eyes: negative findings: conjunctivae and sclerae normal and pupils equal, round, reactive to light and accomodation Ears: normal TM's and external ear canals AU Nose: Nares normal. Septum midline. Mucosa normal. No drainage. Throat: lips, mucosa, and tongue normal; teeth and gums normal Neck: supple, symmetrical, trachea midline, no adenopathy, thyroid: not enlarged, symmetric, no tenderness/mass/nodules, no carotid bruit and no JVD Back: symmetric, no curvature. ROM normal. No CVA tenderness. Lungs: clear to auscultation bilaterally Breasts: normal appearance, no masses or tenderness Heart: regular rate and rhythm, S1, S2 normal, no murmur, click, rub or gallop Abdomen: soft, non-tender; bowel sounds normal; no masses, no organomegaly Extremities: extremities normal, atraumatic, no cyanosis or edema Pulses: LEft Pulses: FEM: present 2+, POP: not tested, DP: present 1+, PT: present 1+ Right Pulses: FEM: present 2+, POP: not tested, DP: present 2+, PT: present 2+ Skin: Skin color, texture, turgor normal. No rashes. Sebaceous cysts, one on sternum with a scar, also right neck. Lymph nodes: Cervical, supraclavicular, and axillary nodes normal. Neurologic: Grossly normal Assessment: Healthy female exam. S/P ileofemoral bipass, possible recurrent claudication vs deconditioning. Hx RI Hyperlipidemia Tobacco abuse Hypertension At risk for COPD GERD. Plan: 1. Ankle brachial index. Aspirin daily. Reviewed importance in cardiovascular and PVD. 2. Patient Counseling: --Nutrition: Stressed importance of moderation in sodium/caffeine intake, saturated fat and cholesterol, caloric balance, sufficient intake of fresh fruits, vegetables, fiber, calcium, iron, and 1 mg of folate supplement per day (for females capable of ). --Discussed the issue of estrogen replacement, calcium supplement, and the daily use of baby aspirin. --Exercise: Stressed the importance of regular exercise. --Substance Abuse: Discussed cessation/primary prevention of tobacco, alcohol, or other drug use; driving or other dangerous activities under the influence; availability of treatment for abuse. --Sexuality: Discussed sexually transmitted diseases, partner selection, use of condoms, avoidance of unintended and contraceptive alternatives. --Injury prevention: Discussed safety belts, safety helmets, smoke detector, smoking near bedding orupholstery. --Dental health: Discussed importance of regular tooth brushing, flossing, and dental visits. --Immunizations reviewed. --Discussed benefits of screening colonoscopy. Due every 5 years, last 2007. DEXA done 2007. --After hours service discussed with patient 3. Follow up in one year PAP q 2 years, mammogram yearly. 4. Refilled medications. 5. Chol fract, alt, creat, lytes. CBC 6. Reviewed updated simvastatin reports. Has tolerated 80 mg daily. Continue at this dose, if adjustment needed change to Lipitor or Crestor will be needed. GOal LDL <70. 7. Tobacco cessation advice, assistance offered. Programs available for phone support whenshe is ready to quit. documented in this encounter Plan of Treatment Not on filedocumented as of this encounter Visit Diagnoses Diagnosis Chronic ischemic heart disease, unspecif ied (HRC) - Primary Chronic ischemic heart disease, unspecif ied Well woman exam Routine general medical examination at a [facility] care facility Esophageal reflux Unspecified essential hypertension (HRC) Unspecified essential hypertension documented in this encounter Care Teams Home Day Care Provider Relationship Specialty Start Date End Date Judy Sorensen MD PCP - General 12/18/10 05/02/18 [address] [place] [address] documented as of this encounter
--- OUTSIDE RECORDS SUMMARY | 2022-04-27 02:58 | XMS_ITS | Encounter Summary ---
:1940 Author [facility] Address [address] [place] [address] Care Team Providers Name Role Phone Judy Sorensen MD Primary Care Provider Reason for Visit Reason Comments Refill Encounter Details Date Type Department Care Team Description 06/06/2011 Refill [facility] Judy Christensen MD Refill [address] [place] [address] [place], [place] [phone] (Wo rk) Social History Tobacco Use Types Packs/Day Years Used Date Smoking Tobacco: Never Assessed Sex Assigned at Date Recorded Not on file documented as of this encounter Nursing Notes Mateo Kenyon - 06/07/2011 1:23 PM CDT Renewed medication per medication refill protocol. Prescription Refills Approved Prescriptions Disp Refills ??? simvastatin (ZOCOR) 80 mg tablet 90 tablet 3 Sig: TAKE 1 TABLET BY MOUTH ONCE DAILY IN THE EVENING Authorizing Provider: JUDY GARCÍA Ordering User: MATEO KENYON documented in this encounter Plan of Treatment Not on filedocumented as of this encounter Visit Diagnoses Not on filedocumented in this encounter Care Teams Cigarette Machines Mechanic Relationship Specialty Start Date End Date Judy Sorensen MD PCP - General 12/18/10 05/02/18 [address] [place] [address] documented as of this encounter
--- OUTSIDE RECORDS SUMMARY | 2022-04-27 02:59 | XMS_ITS | Encounter Summary ---
:1940 Author Organization [employer] Address [address], [place] [address] Care Team Providers Name Role Phone Judy Sorensen MD Primary Care Provider Encounter Details Date Type Department Care Team Description 07/03/2007 Nursing Visit [facility] [place] [address] [place] [address] [place] [phone] [address] Social History Tobacco Use Types Packs/Day Years Used Date Smoking Tobacco: Never Assessed Sex Assigned at Date Recorded Not on file documented as of this encounter Plan of Treatment Not on filedocumented as of this encounter Visit Diagnoses Not on filedocumented in this encounter Care Teams Assistant Professor Nurse Education Relationship Specialty Start Date End Date Judy Sorensen MD PCP - General 12/18/10 05/02/18 [address] [place], [place] [address] documented as of this encounter
--- OUTSIDE RECORDS SUMMARY | 2022-04-27 02:59 | XMS_ITS | Encounter Summary ---
:1940 Author Organization [employer] Address [address] [address] Care Team Providers Name Role Phone Judy Sorensen MD Primary Care Provider Encounter Details Date Type Department Care Team Description 01/25/2008 Office Visit [facility] [place] [address] [place] [address] Social History Tobacco Use Types Packs/Day Years Used Date Smoking Tobacco: Never Assessed Sex Assigned at Date Recorded Not on file documented as of this encounter Last Filed Vital Signs Vital Sign Reading Time Taken Comments Blood Pressure 121/60 01/25/2008 1:15 PM CDT Pulse 69 01/25/2008 1:15 PM CDT Temperature 36.4 ??C (97.5 ??F) 01/25/2008 1:15 PM CDT C: 36 .4 C Respiratory Rate 20 01/25/2008 1:15 PM CDT Oxygen Saturation - - Inhaled Oxygen Concentration - - Weight - - Height - - Body Mass Index - - documented in this encounter Progress Notes Kings Camargo MD - 01/25/2008 12:01 AM CDT Progress Notes signed by Kings Camargo MD at 02/01/08 1603 Author: Kings Camargo MD Service: (none) Author Type: Physician Filed: 01/08/11 0342 Note Time: 01/25/08 0001 Status: Signed Ditching Machine Operating Engineer: Kings Camargo MD (Physician) NAME: SHU OLIVA MR#: [id number] ACCT: [id number] VISIT: [id number] DICTATING CLINICIAN: KINGS CAMARGO MD JOB: [id number] LOC: 520 CLINIC PROGRESS NOTE DATE OF VISIT: 01/25/2008 SUBJECTIVE: This 67-year-old female comes in with concern for having plugged feeling in her right ear for the past 3 days. She has had problems with wax build-up in the past. Denies any ear pain. No cold symptoms. No other related symptoms. She has had irrigation of her ears in the past. PAST MEDICAL HISTORY: Reviewed in [employer]. MEDICATIONS: Reviewed in [employer]. ADR/ALLERGIES: NONE. OBJECTIVE: VS: BP: 120/68. T: 97. P: 69. R: 20. The patient looking very good. Throat looks normal. Ears: Both ears show deep wax in canal. NECK: Supple. No lymph nodes palpable. ASSESSMENT: Ceruminosis bilateral ears. PLAN: Ears were irrigated and examination of the TMs after irrigation shows mildly congested TMs, most probable because of irrigation. The patient tolerated procedure well and felt obvious improvement of her hearing. FINAL DIAGNOSIS: Ceruminosis bilateral ears, removed. [id number] C: 01/26/08 14:55 DOCUMENT: [id number] documented in this encounter Plan of Treatment Not on filedocumented as of this encounter Visit Diagnoses Not on filedocumented in this encounter Care Teams Temperature Control Inspector Relationship Specialty Start Date End Date Judy Sorensen MD PCP - General 12/18/10 05/02/18 [address] [place] [address] documented as of this encounter
--- OUTSIDE RECORDS SUMMARY | 2022-04-27 02:59 | XMS_ITS | Encounter Summary ---
:1940 Author Organization [employer] Address [address] [place] [address] Care Team Providers Name Role Phone Judy Sorensen MD Primary Care Provider Reason for Visit Reason Comments Other Encounter Details Date Type Department Care Team Description 05/13/2008 Telephone [facility], Message Other [address] [place] [address] Social History Tobacco Use Types Packs/Day Years Used Date Smoking Tobacco: Never Assessed Sex Assigned at Date Recorded Not on file documented as of this encounter [facility], Message - 05/13/2008 9:04 AM CDT Phone Note filed by [facility] at 01/06/11428 Author: [facility] Service: (none) Author Type: (none) Filed: 01/06/11428 Note Time: 05/13/08903 Status: Signed Orthopedic Coder: [facility] Prescription Refill Please provide enough refills to last until patient's next visit. Comment:- Pharmacy Seq #:-[phone] Pharmacy Name:-[facility] or City:[facility] Clinician Name:-Suzie Drug Name/Strength:-Ranitidine 300mg tabs. Sig: Dose/Route/Freq:-Take 1 tab every night at bedtime. Quantity & Last Fill:-90 03/02/07 Created on 13May2008 9:04am by SOO MO J On 13May2008 12:44pm BURT WARREN wrote: Renewed medication per medication refill protocol. OGRAPHIC EQUIPMENT INSPECTOR documented in this encounter Plan of Treatment Not on filedocumented as of this encounter Visit Diagnoses Not on filedocumented in this encounter Care Teams Client Services Vice President Relationship Specialty Start Date End Date Judy Sorensen MD PCP - General 12/18/10 05/02/18 [address] [place] [address] documented as of this encounter
--- OUTSIDE RECORDS SUMMARY | 2022-04-27 02:59 | XMS_ITS | Encounter Summary ---
:1940 Author Organization [employer] [facility] Address [address] [place] [address] Care Team Providers Name Role Phone Judy Sorensen MD Primary Care Provider Reason for Visit Reason Comments Other Encounter Details Date Type Department Care Team Description 02/21/2008 Telephone [facility] Elisabeth Ortiz Other [address] [place] [address] Social History Tobacco Use Types Packs/Day Years Used Date Smoking Tobacco: Never Assessed Sex Assigned at Date Recorded Not on file documented as of this encounter Progress Notes Elisabeth Ortiz - 02/21/2008 11:12 AM CDT Phone Note filed by Elisabeth Ortiz RN at 01/05/112223 Author: Elisabeth Ortiz RN Service: (none) Author Type: Registered Nurse Filed: 01/05/112223 Note Time: 02/21/081111 Status: Signed Utility Forester: Elisabeth Ortiz RN (Registered Nurse) PPA completed and instructions reviewed for colonoscopy. pt. verbalized understanding. driver trainer policy reviewed. Created on 21Feb2008 11:12am by ELISABETH ORTIZ ENGINEER documented in this encounter Plan of Treatment Not on filedocumented as of this encounter Visit Diagnoses Not on filedocumented in this encounter Care Teams Aerophysics Engineer Relationship Specialty Start Date End Date Judy Sorensen MD PCP - General 12/18/10 05/02/18 [address] [place] [address] documented as of this encounter
--- OUTSIDE RECORDS SUMMARY | 2022-04-27 02:59 | XMS_ITS | Encounter Summary ---
:1940 Author Organization [employer] Address [address] [place] [address] Care Team Providers Name Role Phone Judy Sorensen MD Primary Care Provider Encounter Details Date Type Department Care Team Description 02/28/2008 PN Conversion Only [facility] Julius Andersen MD [address] [facility] [address] [place] [id number] (Wo rk) Social History Tobacco Use Types Packs/Day Years Used Date Smoking Tobacco: Never Assessed Sex Assigned at Date Recorded Not on file documented as of this encounter Plan of Treatment Not on filedocumented as of this encounter Visit Diagnoses Not on filedocumented in this encounter Care Teams Offset Duplicating Machine Operator Relationship Specialty Start Date End Date Judy Sorensen MD PCP - General 12/18/10 05/02/18 [address] [place], [place] [address] documented as of this encounter
--- OUTSIDE RECORDS SUMMARY | 2022-04-27 02:59 | XMS_ITS | Encounter Summary ---
:1940 Author Organization [employer] Address [address] [place] [address] Care Team Providers Name Role Phone Judy Sorensen MD Primary Care Provider Encounter Details Date Type Department Care Team Description 02/16/2007 PN Conversion Only [facility] [address] [place] [address] Social History Tobacco Use Types Packs/Day Years Used Date Smoking Tobacco: Never Assessed Sex Assigned at Date Recorded Not on file documented as of this encounter Plan of Treatment Not on filedocumented as of this encounter Procedures Procedure Name Priority Date/Time Associated Diagnosis Comme nts MM MAMMOGRAM Routine 02/16/2007 11:52 AM Results for this SCREENING BILAT W CDT procedure are in CAD the results section. documented in this encounter Results MM Mammogram Screening Bilat W CAD (02/16/2007 11:52 AM CDT) Anatomical Region Laterality Modality Breast Bilateral Mammography Specimen (Source) Anatomical Location Collection Method / Collectio n Time Received Time / Laterality Volume Impressions 02/19/2007 2:39 PM CDT : BILATERAL BREAST - CATEGORY 2 Lucent-centered calcifications. Benign, no evidence of malignancy. Normal interval follow-up is recommended in 12 months. RIGHT BREAST - CATEGORY 2 Vascular calcifications. Benign, no evid ence of malignancy. Normal interval follow-up is recommended in 12 months. OVERALL ASSESSMENT - BENIGN END OF IMPRESSION Dictating CHRISTOFER ARNOLD RADIOLOGIST Narrative 02/19/2007 2:39 PM CDT Comparison is made to films from 07/12/2004 (bilateral). ??There is no significant interval change. Bilateral Breast Findings: There are scattered fibroglandular densi ties. ??Lucent-centered calcifications are present. Right Breast Findings: Vascular calcifications are present. Procedure Note Christofer Harper - 11/18/2016Formattin g of this note might be different from the original. Comparison is made to films from 004 (bilateral). There is no significant interval change. Bilateral Breast Findings: There are scattered fibroglandular densi ties. Lucent-centered calcifications are present. Right Breast Findings: Vascular calcifications are present. IMPRESSION : BILATERAL BREAST - CATEGORY 2 Lucent-centered calcifications. Benign, no evidence of malignancy. Normal interval follow-up is recommended in 12 months. RIGHT BREAST - CATEGORY 2 Vascular calcifications. Benign, no evid ence of malignancy. Normal interval follow-up is recommended in 12 months. OVERALL ASSESSMENT - BENIGN END OF IMPRESSION Dictating CHRISTOFER ARNOLD RADIOLOGIST Judy Sorensen MD RAD [place] documented in this encounter Visit Diagnoses Not on filedocumented in this encounter Care Teams Biological Science Aide Relationship Specialty Start Date End Date Judy Sorensen MD PCP - General 12/18/10 05/02/18 [address] [place] [address] documented as of this encounter
--- OUTSIDE RECORDS SUMMARY | 2022-04-27 02:59 | XMS_ITS | Encounter Summary ---
:1940 Author Organization [employer] Address [address] [place] [address] Care Team Providers Name Role Phone Judy Sorensen MD Primary Care Provider Encounter Details Date Type Department Care Team Description 02/08/2008 Office Visit [facility] Mukesh Kiran [address] [place], [place] [id number] Social History Tobacco Use Types Packs/Day Years Used Date Smoking Tobacco: Never Assessed Sex Assigned at Date Recorded Not on file documented as of this encounter Plan of Treatment Not on filedocumented as of this encounter Visit Diagnoses Not on filedocumented in this encounter Care Teams Product Ambassador Relationship Specialty Start Date End Date Judy Sorensen MD PCP - General 12/18/10 05/02/18 [address] [place], [place] [address] documented as of this encounter
--- OUTSIDE RECORDS SUMMARY | 2022-04-27 02:59 | XMS_ITS | Encounter Summary ---
:1940 Author Organization [employer] Address [address] [place] [address] Care Team Providers Name Role Phone Judy Sorensen MD Primary Care Provider Encounter Details Date Type Department Care Team Description 11/14/2006 [facility] Carlee Feldman [facility] [address] [place] [address] [place] [address] [phone] Social History Tobacco Use Types Packs/Day Years Used Date Smoking Tobacco: Never Assessed Sex Assigned at Date Recorded Not on file documented as of this encounter Last Filed Vital Signs Vital Sign Reading Time Taken Comments Blood Pressure 130/64 11/14/2006 11:15 AM EMAIL DEPLOYMENT SPECIALIST Pulse - - Temperature - - Respiratory Rate - - Oxygen Saturation - - Inhaled Oxygen Concentration - - Weight - - Height - - Body Mass Index - - documented in this encounter Progress Notes Carlee Gracia MD - 11/14/2006 12:01 AM CST Progress Notes signed by Carlee Gracia MD at 11/17/06 1150 Author: Carlee Gracia MD Service: (none) Author Type: Physician Filed: 01/07/11 1719 Note Time: 11/14/06 0001 Status: Signed Address Change Clerk: Carlee Gracia MD (Physician) NAME: SHU OLIVA MR#: [id number] ACCT: [id number] VISIT: [id number] DICTATING CLINICIAN: CARLEE GRACIA MD JOB: [id number] LOC: 3588 CLINIC PROGRESS NOTE DATE OF VISIT: 11/14/2006 SUBJECTIVE: I did an aortobifemoral bypass on this patient. She had developed a lump in her left groin that she was concerned about. OBJECTIVE: I examined her left groin. She has no erythema. She has no fluctuance either. Some scar tissue or a little lymphocele, but again she has no drainage or redness. I am reticent to really stick any needle in this at the present time since it does feel rather firm. ASSESSMENT: PLAN: I told her that she should just give it some time, and it will probably resolve on its own. If it is still bothering her in 4-6 weeks, she should come back. JMM:[id number] C: 11/14/06 12:33 DOCUMENT: [id number] L DEPLOYMENT SPECIALIST documented in this encounter Plan of Treatment Not on filedocumented as of this encounter Visit Diagnoses Not on filedocumented in this encounter Care Teams Dishwasher Relationship Specialty Start Date End Date Judy Sorensen MD PCP - General 12/18/10 05/02/18 [address] [place] [address] documented as of this encounter
--- OUTSIDE RECORDS SUMMARY | 2022-04-27 02:59 | XMS_ITS | Encounter Summary ---
:1940 Author Organization [email or web address] Address [address] [place] [address] Care Team Providers Name Role Phone Judy Sorensen MD Primary Care Provider Encounter Details Date Type Department Care Team Description 02/09/2007 Office Visit [facility] [place] [address] [facility] [address] [place] [address] [place], [place] [id number] Social History Tobacco Use Types Packs/Day Years Used Date Smoking Tobacco: Never Assessed Sex Assigned at Date Recorded Not on file documented as of this encounter Last Filed Vital Signs Vital Sign Reading Time Taken Comments Blood Pressure 141/0 02/09/2007 8:48 AM CDT Pulse 64 02/09/2007 8:48 AM CDT Temperature 37.5 ??C (99.5 ??F) 02/09/2007 8:48 AM ORAL C: 3 7.5 C CDT Respiratory Rate 16 02/09/2007 8:48 AM CDT Oxygen Saturation 98% 02/09/2007 8:48 AM CDT Inhaled Oxygen Concentration - - Weight - - Height - - Body Mass Index - - documented in this encounter Progress Notes Wilmer Murphy MD - 02/09/2007 12:01 AM CDT Progress Notes signed by Wilmer Murphy MD at 03/06/07 0954 Author: Wilmer Murphy MD Service: (none) Author Type: Physician Filed: 01/07/110 Note Time: 02/09/07 0001 Status: Signed Bottle Tester: Wilmer Murphy MD (Physician) NAME: SHU OLIVA MR#: [id number] ACCT: [id number] VISIT: [id number] DICTATING CLINICIAN: WILMER MURPHY MD JOB: [id number] LOC: 520 CLINIC PROGRESS NOTE DATE OF VISIT: 02/09/2007 SUBJECTIVE: CHIEF COMPLAINT: This is a 66-year-old woman who presents to urgent care with a complaint of rib pain. HISTORY OF PRESENT ILLNESS: On 01/31, while asleep, her accidentally hit the right rib area and since then patient has had pain when she takes a deep breath or with certain movements which require rotational twisting. Patient has not been short of breath. Pain has been stable. There is no worsening, but she is concerned about a possible rib fracture. ADR/ALLERGIES: NO ALLERGIES TO MEDICATIONS. PAST MEDICAL HISTORY: Reviewed online. CHRONIC MEDICATIONS: Reviewed online. OBJECTIVE: VS: BP: 114/61. T: 99. P: 64. R: 16. Saturation: 98% on room air. She is alert, oriented, not short of breath. CHEST WALL: Right side, shows no obvious external injury. Patient has point tenderness in the right upper chest area. She has no pain with palpation of the right clavicle. She has no point tenderness in the shoulder joint. She is able to straight arm raise. LUNGS: Clear to auscultation and percussion. X-ray was done of the chest and the right rib detail. X-ray was negative for pneumothorax and negative for fracture. There is a possible contusion in the right upper lung area. Before the patient left urgent care, I discussed this x-ray finding with the radiologist. ASSESSMENT: Right upper chest wall pain. Contusion. PLAN: Patient was informed of the x-ray finding and she has also been informed that she should have a followup x-ray in about 3 to 4 weeks. She will following up with her primary care clinic to do so. FINAL DIAGNOSIS: Right upper chest wall pain. Contusion. STR:[id number] C: 02/10/07 09:31 DOCUMENT: [id number] documented in this encounter Plan of Treatment Not on filedocumented as of this encounter Procedures Procedure Name Priority Date/Time Associated Diagnosis Comme nts XR RIBS RT W 1 VIEW Routine 02/09/2007 9:41 AM Re sults for this CHEST CDT procedure are i n the results section. documented in this encounter Results XR Ribs Rt W 1 View Chest (02/09/2007 9:41 AM CDT) Anatomical Region Laterality Modality Chest Other Specimen (Source) Anatomical Location Collection Method / Collectio n Time Received Time / Laterality Volume Narrative 02/09/2007 9:41 AM CDT There are degenerative and hypertrophic changes in the AC joints bilaterally. ??Hypertrophic changes in t he right shoulder joint in the proximal humerus also. ??There are calci fied lymph nodes in the right hilum. ??No evidence for pneumothorax, p leural effusion, or suspicious nodule, but there is a faint density in the right 2nd anterior intercostal space on the PA chest film, which might represent a pulmonary contusion. ??Recommend another PA chest film in approximately 3-4 weeks. ??No obvious ac tanacross rib fracture seen. [facility]/ [address] Dictating ALLEN GONZALES MD Procedure Note Allen Clark - 11/18/2016 There are degenerative and hypertrophic changes in the AC joints bilaterally. Hypertrophic changes in the right shoulder joint in the proximal humerus also. There are calcifi ed lymph nodes in the right hilum. No evidence for pneumothorax, ple ural effusion, or suspicious nodule, but there is a faint density in the right 2nd anterior intercostal space on the PA chest film, which might represent a pulmonary contusion. Recommend another P A chest film in approximately 3-4 weeks. No obvious acut e rib fracture seen. [facility]/ [address] Dictating ALLEN GONZALES MD Wilmer Murphy MD RAD GD documented in this encounter Visit Diagnoses Not on filedocumented in this encounter Care Teams Sales And Marketing Assistant Relationship Specialty Start Date End Date Judy Sorensen MD PCP - General 12/18/10 05/02/18 [address] [place] [address] documented as of this encounter
--- OUTSIDE RECORDS SUMMARY | 2022-04-27 02:59 | XMS_ITS | Encounter Summary ---
:1940 Author Organization [employer] Address [address] [place] [address] Care Team Providers Name Role Phone Judy Sorensen MD Primary Care Provider Encounter Details Date Type Department Care Team Description 04/04/2008 PN Conversion Only [facility] [address] [place] [address] Social History Tobacco Use Types Packs/Day Years Used Date Smoking Tobacco: Never Assessed Sex Assigned at Date Recorded Not on file documented as of this encounter Plan of Treatment Not on filedocumented as of this encounter Procedures Procedure Name Priority Date/Time Associated Diagnosis Comme nts MM MAMMOGRAM Routine 04/04/2008 8:24 AM Results f or this SCREENING BILAT W CDT procedure are in CAD the results section. documented in this encounter Results MM Mammogram Screening Bilat W CAD (04/04/2008 8:24 AM CDT) Anatomical Region Laterality Modality Breast Bilateral Mammography Specimen (Source) Anatomical Location Collection Method / Collectio n Time Received Time / Laterality Volume Impressions 04/09/2008 1:46 PM CDT : BILATERAL BREASTS - CATEGORY 2 Round and vascular calcifications. Benig n, no evidence of malignancy. Normal interval follow-up is recommended in 12 months. OVERALL ASSESSMENT - BENIGN END OF IMPRESSION Dictating BRANDON ESPANA RADIOLOGIST Narrative 04/09/2008 1:46 PM CDT Comparison is made to films from 07/20/2005 (bilateral) and films from 02/16/2007 (bilateral). ??There is no significant interval change. Bilateral Breast Findings: There are scattered fibroglandular densi ties. ??Round and vascular calcifications are present. Procedure Note Brandon Linda - 11/18/2016 Comparison is made to films from 005 (bilateral) and films from 02/16/2007 (bilateral). There is no significant interval change. Bilateral Breast Findings: There are scattered fibroglandular densi ties. Round and vascular calcifications are present. IMPRESSION : BILATERAL BREASTS - CATEGORY 2 Round and vascular calcifications. Benig n, no evidence of malignancy. Normal interval follow-up is recommended in 12 months. OVERALL ASSESSMENT - BENIGN END OF IMPRESSION Dictating BRANDON ESPANA RADIOLOGIST Judy Sorensen MD RAD [place] documented in this encounter Visit Diagnoses Not on filedocumented in this encounter Care Teams Mail Teller Relationship Specialty Start Date End Date Judy Sorensen MD PCP - General 12/18/10 05/02/18 [address] [place] [address] documented as of this encounter
--- OUTSIDE RECORDS SUMMARY | 2022-04-27 02:59 | XMS_ITS | Encounter Summary ---
:1940 Author Organization [employer] Address [address] [address] Care Team Providers Name Role Phone Judy Sorensen MD Primary Care Provider Encounter Details Date Type Department Care Team Description 07/13/2007 PN Conversion Only [facility] [address] [place] [address] [place], [place] [address] (Wo rk) Social History Tobacco Use Types Packs/Day Years Used Date Smoking Tobacco: Never Assessed Sex Assigned at Date Recorded Not on file documented as of this encounter Plan of Treatment Not on filedocumented as of this encounter Procedures Procedure Name Priority Date/Time Associated Diagnosis Comme nts COMPLETE BLOOD Routine 07/13/2007 8:27 AM Results for this COUNT-W/DIFF CDT procedure are i n the results section. VIT B12 & FOLATE Routine 07/13/2007 8:27 AM Resul ts for this CDT procedure are i n the results section. documented in this encounter Results Complete Blood Count-W/Diff (07/13/2007 8:27 AM CDT) [facility] Method Time Signature White Blood Cell 7.0 3.8 - 11.0 [facility] CONVERSIO N Count K/cmm Red Blood Cell 4.86 3.70 - HP CONVERSION Count 5.20 m/cmm Hemoglobin 14.3 11.8 - HP CONVERSION 15.5 gm/dL Hematocrit 43.8 35.0 - HP CONVERSION 46.0 % Mean Corpuscular 90.2 80.0 - HP CONVERSION Volume 100.0 fl Mean Corpuscular 29.5 27.0 - HP CONVERSION Hemoglobin 34.0 pg Mean Corpuscular 32.6 32.0 - HP CONVERSION Hemoglobin Conc 36.5 gm/dL Ajo RDW 13.0 11.0 - HP CONVERSION 15.0 % Platelet Count 237 140 - 450 HP CONVERSION k/cmm Differential Auto-Dif No normal HP CONVERSION Verify range Neutrophils 3.6 2.0 - 7.5 HP CONVERSION Absolute Count K/cmm Neutrophil 51.1 50.0 - HP CONVERSION 75.0 % Lymphocyte % 38.8 20.0 - HP CONVERSION 40.0 % Monocyte 6.5 5.0 - 14.0 HP CONVERSION % Eosinophil 3.1 0.0 - 6.0 HP CONVERSION % Basophil % 0.5 0.0 - 2.0 HP CONVERSION % Specimen (Source) Anatomical Collection Method Collection Time Re ceived Time Location / / Volume Laterality 07/13/2007 8:27 AM CDT Judy Sorensen MD LAB_1 Performing Organization Address City/State/ZIP Code Phon e Number HP CONVERSION Vit B12 & Folate (07/13/2007 8:27 AM CDT) P athologist Signature Vitamin B12 288 211 - 911 HP CONVERSION pg/mL Serum Folate 10.9 >6.1 ng/mL HP CONVERSION Specimen (Source) Anatomical Collection Method Collection Time Re ceived Time Location / / Volume Laterality 07/13/2007 8:27 AM CDT Judy Sorensen MD LAB_1 Performing Organization Address City/State/ZIP Code Phon e Number HP CONVERSION documented in this encounter Visit Diagnoses Not on filedocumented in this encounter Care Teams Etymology Professor Relationship Specialty Start Date End Date Judy Sorensen MD PCP - General 12/18/10 05/02/18 [address] [place] [address] documented as of this encounter
--- OUTSIDE RECORDS SUMMARY | 2022-04-27 02:59 | XMS_ITS | Encounter Summary ---
:1940 Author Organization [employer] Address [address] [place] [address] Care Team Providers Name Role Phone Judy Sorensen MD Primary Care Provider Reason for Visit Reason Comments Other Encounter Details Date Type Department Care Team Description 02/29/2008 Telephone [facility], Message Other [address] [place], [place] [address] Social History Tobacco Use Types Packs/Day Years Used Date Smoking Tobacco: Never Assessed Sex Assigned at Date Recorded Not on file documented as of this encounter [facility], Message - 02/29/2008 2:08 PM CDT Phone Note filed by Espinela at 01/05/11 2300 Author: Espinela Service: (none) Author Type: (none) Filed: 01/05/110 Note Time: 02/29/081407 Status: Signed Patrol Community Service Officer: Espinela Prescription Refill Please provide enough refills to last until patient's next visit. Comment:-LV 02/20/08 Pharmacy Seq #:-[phone] Pharmacy Name:-[address] or City:[facility] Clinician Name:Jose GARCÍA Drug Name/Strength:-ATENOLOL 25MG TAB Sig: Dose/Route/Freq:-TAKE ONE TAB DAILY Quantity & Last Fill:-30 01/31/08 Created on 29Feb2008 2:08pm by OMAR SAUCEDA On 01Mar2008 7:52am YOGI PAGE wrote: Renewed medication per medication refill protocol. ICS DEPARTMENT CHAIR documented in this encounter Plan of Treatment Not on filedocumented as of this encounter Visit Diagnoses Not on filedocumented in this encounter Care Teams Delivery Lead Relationship Specialty Start Date End Date Judy Sorensen MD PCP - General 12/18/10 05/02/18 [address] [place] [address] documented as of this encounter
--- OUTSIDE RECORDS SUMMARY | 2022-04-27 02:59 | XMS_ITS | Encounter Summary ---
:1940 Author Organization [employer] Address [address] [place] [address] Care Team Providers Name Role Phone Judy Sorensen MD Primary Care Provider Encounter Details Date Type Department Care Team Description 07/11/2008 Nursing Visit [facility] Jose Rosas MD [facility] [address] [facility] [address] [place] [address] [place] [address] [phone] Social History Tobacco Use Types Packs/Day Years Used Date Smoking Tobacco: Never Assessed Sex Assigned at Date Recorded Not on file documented as of this encounter Plan of Treatment Not on filedocumented as of this encounter Visit Diagnoses Not on filedocumented in this encounter Care Teams Court Transcriber Relationship Specialty Start Date End Date Judy Sorensen MD PCP - General 12/18/10 05/02/18 [address] [place] [address] documented as of this encounter
--- OUTSIDE RECORDS SUMMARY | 2022-04-27 02:59 | XMS_ITS | Encounter Summary ---
:1940 Author Organization [employer] Address [address] [place] [address] Care Team Providers Name Role Phone Judy Sorensen MD Primary Care Provider Reason for Visit Reason Comments Other Encounter Details Date Type Department Care Team Description 02/17/2009 Telephone [facility], Message Other [address] [place] [address] Social History Tobacco Use Types Packs/Day Years Used Date Smoking Tobacco: Never Assessed Sex Assigned at Date Recorded Not on file documented as of this encounter [facility], Message - 02/17/2009 8:40 AM CDT Phone Note filed by Encore Alert at 01/07/11339 Author: Encore Alert Service: (none) Author Type: (none) Filed: 01/07/11339 Note Time: 02/17/09839 Status: Signed 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 Comment:- Pharmacy Seq #:-[phone] Pharmacy Name:-[facility] or City:[facility] Clinician Name:-Suzie Drug Name/Strength:-Simvastatin 80mg tabs. Sig: Dose/Route/Freq:-Take 1 tab daily in the evening. Quantity & Last Fill:-90 11/19/08 Created on 17Feb2009 8:40am by SOO MO J On 17Feb2009 4:49pm BURT WARREN wrote: Renewed medication per medication refill protocol.Has 02/24 well exam. 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
--- OUTSIDE RECORDS SUMMARY | 2022-04-27 02:59 | XMS_ITS | Encounter Summary ---
:1940 Author Organization [employer] [facility] Address [address] [place] [address] Care Team Providers Name Role Phone Judy Sorensen MD Primary Care Provider Encounter Details Date Type Department Care Team Description 02/20/2008 PN Conversion Only [place] [address] [place] [address] [place], [place] [address] (Wo rk) Social History Tobacco Use Types Packs/Day Years Used Date Smoking Tobacco: Never Assessed Sex Assigned at Date Recorded Not on file documented as of this encounter Plan of Treatment Not on filedocumented as of this encounter Procedures Procedure Name Priority Date/Time Associated Comments Diagnosis GLUCOSE Routine 02/20/2008 11:02 AM Results for this CDT procedure are i n the results section. LIPID PANEL AND Routine 02/20/2008 11:02 AM Resul ts for this DIRECT LDL(IF CDT procedure are in NEEDED) the results section. CREATININE / GFR Routine 02/20/2008 11:02 AM Resu lts for this CDT procedure are i n the results section. ALT (SGPT) Routine 02/20/2008 11:02 AM Results for this CDT procedure are i n the results section. AST Routine 02/20/2008 11:02 AM Results for this CDT procedure are i n the results section. SODIUM Routine 02/20/2008 11:02 AM Results for this CDT procedure are i n the results section. POTASSIUM Routine 02/20/2008 11:02 AM Results for this CDT procedure are i n the results section. ANATOMICAL PATH Routine 02/20/2008 7:35 AM Result s for this LIQUID BASED CDT procedure are i n the results section. documented in this encounter Results ALT (SGPT) (02/20/2008 11:02 AM CDT) [facility] gist Method Time Signature Alanine 17 4 - 55 HP CONVERSION Aminotransferase U/L Specimen (Source) Anatomical Collection Method Collection Time Re ceived Time Location / / Volume Laterality 02/20/2008 11:02 AM CDT uJdy Sorensen MD LAB_1 Performing Organization Address City/[facility]/ZIP Code Phon e Number HP CONVERSION AST (02/20/2008 11:02 AM CDT) [facility] Method Time Signature Aspartate 14 0 - 45 HP CONVERSION Aminotransferase U/L Specimen (Source) Anatomical Collection Method Collection Time Re ceived Time Location / / Volume Laterality 02/20/2008 11:02 AM CDT Judy Sorensen MD LAB_1 Performing Organization Address City/[facility] Code Phon e Number HP CONVERSION Creatinine / GFR (02/20/2008 11:02 AM CDT) athologist Signature Creatinine 0.8 0.4 - 1.3 HP CONVERSION Serum mg/dL Est GFR >60 >60 HP CONVERSION Am Comment: -Northern Irish and Jjj-Vduxqwn-Wzsjiot n reference range units: mL/min/1.73m2 Normal>60, moderate decrease 30 - 59, se james decrease 15 - 29, renal failure <15 mL/min/1.73 m2 Est GFR Non-Afr Am >60 >60 HP CONVERSI ON Specimen (Source) Anatomical Collection Method Collection Time Re ceived Time Location / / Volume Laterality 02/20/2008 11:02 AM CDT uJdy Sorensen MD LAB_1 Performing Organization Address City/[facility]/ZIP Code Phon e Number HP CONVERSION Glucose (02/20/2008 11:02 AM CDT) P athologist Signature Length Of Fast 12.0 Hours HP CONVERSION Lab Glucose 95 60 - 100 HP CONVERSION mg/dL Specimen (Source) Anatomical Collection Method Collection Time Re ceived Time Location / / Volume Laterality 02/20/2008 11:02 AM CDT Judy Sorensen MD LAB_1 Performing Organization Address [facility] Phon e Number HP CONVERSION Sodium (02/20/2008 11:02 AM CDT) P athologist Signature Sodium 143 137 - 147 HP CONVERSION mEq/L Specimen (Source) Anatomical Collection Method Collection Time Re ceived Time Location / / Volume Laterality 02/20/2008 11:02 AM CDT Judy Sorensen MD LAB_1 Performing Organization Address [facility] Phon e Number HP CONVERSION Potassium (02/20/2008 11:02 AM CDT) P athologist Signature Potassium 5.2 3.5 - 5.2 HP CONVERSION mEq/L Specimen (Source) Anatomical Collection Method Collection Time Re ceived Time Location / / Volume Laterality 02/20/2008 11:02 AM CDT Judy Sorensen MD LAB_1 Performing Organization Address [facility] Phon e Number HP CONVERSION Lipid Panel and Direct LDL(If Needed) (02/20/2008 11:02 AM CDT) Patholo gist Method Time Signature Length Of Fast 12.0 Hours HP CONVERSION Cholesterol/HDL 2.8 No normal HP CONVERSION Ratio Screen range Cholesterol 178 <200 mg/dL HP CONVERSION HDL Cholesterol 64 >40 mg/dL HP CONVERSION Triglycerides 107 0 - 149 HP CONVERSION mg/dL LDL Calculated 93 0 - 130 HP CONVERSION mg/dL Comment: Specimen (Source) Anatomical Collection Method Collection Time Re ceived Time Location / / Volume Laterality 02/20/2008 11:02 AM CDT Judy Sorensen MD LAB_1 Performing Organization Address [facility] Phon e Number HP CONVERSION Pap Smear (02/20/2008 7:35 AM CDT) Patholo gist Method Time Signature PAP Smear SEE TEXT No normal HP CONVERSION Liquid Based range Comment: Patient: SHU OLIVA ? CERVICAL CYTOLOGY REPORT Pathology # ??[id number] ?Date Obtained: ? Date Received: CYTOLOGIC IMPRESSION: Negative for intraepithelial lesion or m alignancy. Verified 02/27/08 by: ??Derek Gale M.D. ? (electronic signature) ? PAULINA TIONAL DATA LMP: CLINICAL HIST LIQUID BASED PAP CERVICAL SPECIMEN ADEQUACY: ?? Satisfactory. ENDOCERVICAL CELLS: ??Absent; patient is post-menopausal. Specimen (Source) Anatomical Collection Method Collection Time Re ceived Time Location / / Volume Laterality 02/20/2008 7:35 AM CDT Judy Sorensen MD LAB_1 Performing Organization Address City/State/ZIP Code Phon e Number HP CONVERSION documented in this encounter Visit Diagnoses Not on filedocumented in this encounter Care Teams Kaiawhina Kura Kaupapa Maori Relationship Specialty Start Date End Date Judy oSrensen MD PCP - General 12/18/10 05/02/18 [address] [place], [place] [address] documented as of this encounter
--- OUTSIDE RECORDS SUMMARY | 2022-04-27 02:59 | XMS_ITS | Encounter Summary ---
:1940 Author Organization [employer] Address [address] [place] [address] Care Team Providers Name Role Phone Judy Sorensen MD Primary Care Provider Reason for Visit Reason Comments Other Encounter Details Date Type Department Care Team Description 01/02/[address] [facility] [place], Message Other [address] [place], [place] [address] Social History Tobacco Use Types Packs/Day Years Used Date Smoking Tobacco: Never Assessed Sex Assigned at Date Recorded Not on file documented as of this encounter [facility], Message - 01/02/2007 9:36 AM CDT Phone Note filed by Proxible at 01/04/111919 Author: Pro[employer] Service: (none) Author Type: (none) Filed: 01/04/111919 Note Time: 01/02/07935 Status: Signed Marine Meteorologist: Proxible PRESCRIPTION REFILL Request #1: Please provide enough refills to last until patient's next visit. Comment:- Pharmacy Seq #:-[phone] Pharmacy Name:-[employer] or City:[facility] Clinician Name:-Suzie Drug Name/Strength:-Ranitidine 300mg tabs. Sig: Dose/Route/Freq:-Take 1 tab daily. Quantity & Last Fill:-90 08/24/05 - PRESCRIPTION REFILL Request #2: Comment:- Drug Name/Strength:-Lipitor 40mg tabs. Sig: Dose/Route/Freq:-Take 1and 1/2 tabs daily. Quantity & Last Fill:-135 09/26/06 PRESCRIPTION REFILL Request #3: Comment:- Drug Name/Strength:-Atenolol 25mg tabs. Sig: Dose/Route/Freq:-Take 1 tab daily. Quantity & Last Fill:-90 09/26/06 Created on 02Jan2007 9:36am by SOO MO J On 03Jan2007 9:32am BURT WARREN wrote: REFILL APPOINTMENT NEEDED Please call patient and schedule appointment within 30 days. Medication has been renewed and faxed to pharmacy for 30 day supply only, per protocol. Comment:-Annual Well exam due February 2007 (Mammogram due now)--Instruct pt to come in fasting for labwork also. On 03Jan2007 4:56pm UTE MATOS wrote: Talked with patient and stated that RX for 30 day and advised to make annual well. Patient did make well appointment for 01/19 at 9:45. 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
--- OUTSIDE RECORDS SUMMARY | 2022-04-27 02:59 | XMS_ITS | Encounter Summary ---
:1940 Author Organization [employer] Address [address] [place] [address] Care Team Providers Name Role Phone Judy Sorensen MD Primary Care Provider Encounter Details Date Type Department Care Team Description 10/12/2006 Office [facility] Carlee Feldman MD [facility] [address] [place] [address] [place] [address] [phone] Social History Tobacco Use Types Packs/Day Years Used Date Smoking Tobacco: Never Assessed Sex Assigned at Date Recorded Not on file documented as of this encounter Last Filed Vital Signs Vital Sign Reading Time Taken Comments Blood Pressure 130/66 10/12/2006 10:54 AM DIRECTOR OF PHYSICAL SECURITY Pulse - - Temperature - - Respiratory Rate - - Oxygen Saturation - - Inhaled Oxygen Concentration - - Weight - - Height - - Body Mass Index - - documented in this encounter Progress Notes Carlee Gracia MD - 10/12/2006 12:01 AM CST Progress Notes signed by Carlee Gracia MD at 10/17/06 0754 Author: Carlee Gracia MD Service: (none) Author Type: Physician Filed: 01/07/11 1636 Note Time: 10/12/06 0001 Status: Signed Broadcast Technician: Carlee Gracia MD (Physician) NAME: SHU OLIVA MR#: [id number] ACCT: [id number] VISIT: [id number] DICTATING CLINICIAN: CARLEE GRACIA MD JOB: [id number] LOC: 3588 CLINIC PROGRESS NOTE DATE OF VISIT: 10/12/2006 SUBJECTIVE: Status post aortobifemoral bypass. I am happy to say that Ms. Oliva looks good. OBJECTIVE: Her incisions look good. She has got a little bit of induration around her left groin incision, but beyond that everything is coming along fine. ASSESSMENT: PLAN: We will take out her rebecca and I will see her back in the office in a month. She says she has not had anything to smoke since I saw her last time or since her surgery. JMM:[id number] C: 10/13/06 06:41 DOCUMENT: [id number] CTOR OF PHYSICAL SECURITY documented in this encounter Plan of Treatment Not on filedocumented as of this encounter Visit Diagnoses Not on filedocumented in this encounter Care Teams Public Health Training Assistant Relationship Specialty Start Date End Date Judy Sorensen MD PCP - General 12/18/10 05/02/18 [address] [place] [address] documented as of this encounter
--- OUTSIDE RECORDS SUMMARY | 2022-04-27 02:59 | XMS_ITS | Encounter Summary ---
:1940 Author Organization [facility] Address [address] [place] [address] Care Team Providers Name Role Phone Judy Sorensen MD Primary Care Provider Encounter Details Date Type Department Care Team Description 01/19/2007 PN Conversion Only [place] [address] [place] [address] [place], [place] [address] (Wo rk) Social History Tobacco Use Types Packs/Day Years Used Date Smoking Tobacco: Never Assessed Sex Assigned at Date Recorded Not on file documented as of this encounter Plan of Treatment Not on filedocumented as of this encounter Procedures Procedure Name Priority Date/Time Associated Comments Diagnosis THYROID STIMULATING Routine 01/19/2007 10:56 Resu lts for this HORMONE AM CDT procedure are i n the results section. LIPID PANEL AND Routine 01/19/2007 10:56 Results for this DIRECT LDL(IF NEEDED) AM CDT proced ure are in the results section. VIT B12 & FOLATE Routine 01/19/2007 10:56 Results for this AM CDT procedure are i n the results section. VITAMIN B12 ONLY Routine 01/19/2007 10:56 Results for this AM CDT procedure are i n the results section. ALT (SGPT) Routine 01/19/2007 10:56 Results for this AM CDT procedure are i n the results section. AST Routine 01/19/2007 10:56 Results for this AM CDT procedure are i n the results section. ANATOMICAL PATH Routine 01/19/2007 9:13 AM Result s for this LIQUID BASED CDT procedure are i n the results section. documented in this encounter Results ALT (SGPT) (01/19/2007 10:56 AM CDT) [facility] Method Time Signature Alanine 50 4 - 55 HP CONVERSION Aminotransferase U/L Specimen (Source) Anatomical Collection Method Collection Time Re ceived Time Location / / Volume Laterality 01/19/2007 10:56 AM CDT Judy Sorensen MD LAB_1 Performing Organization Address City/State/ZIP Code Phon e Number HP CONVERSION AST (01/19/2007 10:56 AM CDT) [facility] Method Time Signature Aspartate 35 0 - 45 HP CONVERSION Aminotransferase U/L Specimen (Source) Anatomical Collection Method Collection Time Re ceived Time Location / / Volume Laterality 01/19/2007 10:56 AM CDT Judy Sorenesn MD LAB_1 Performing Organization Address City/[facility]/ZIP Code Phon e Number HP CONVERSION (ABNORMAL) Lipid Panel and Direct LDL(If Needed) (01/19/2007 10:56 AM CDT) [facility] Method Time Signature Length Of Fast 12.0 Hours HP CONVERSION Cholesterol/HDL 2.6 No normal HP CONVERSION Ratio Screen range Cholesterol 172 <200 mg/dL HP CONVERSION HDL Cholesterol 65 (H) 40 - 60 HP CONVERSION mg/dL Triglycerides 104 0 - 149 HP CONVERSION mg/dL LDL Calculated 86 0 - 130 HP CONVERSION mg/dL Comment: Specimen (Source) Anatomical Collection Method Collection Time Re ceived Time Location / / Volume Laterality 01/19/2007 10:56 AM CDT Judy Sorensen MD LAB_1 Performing Organization Address City/State/ZIP Code Phon e Number HP CONVERSION Vitamin B12 Only (01/19/2007 10:56 AM CDT) athologist Signature Vitamin B12 296 211 - 911 HP CONVERSION pg/mL Specimen (Source) Anatomical Collection Method Collection Time Re ceived Time Location / / Volume Laterality 01/19/2007 10:56 AM CDT Judy Sorensen MD LAB_1 Performing Organization Address City/State/ZIP Code Phon e Number HP CONVERSION (ABNORMAL) Vit B12 & Folate (01/19/2007 10:56 AM CDT) P athologist Signature Serum Folate 3.7 (L) >6.1 ng/mL HP CONVERSION Comment: Borderline low serum folate values may n ot be diagnostic of folate deficiency (3.4 to 6.0 ng/mL). Serum fol ate far below normal indicates folate deficiency (less than 3 .4 ng/mL). Specimen (Source) Anatomical Collection Method Collection Time Re ceived Time Location / / Volume Laterality 01/19/2007 10:56 AM CDT Judy Sorensen MD LAB_1 Performing Organization Address [facility] Phon e Number HP CONVERSION Thyroid Stimulating Hormone (01/19/2007 10:56 AM CDT) P athologist Signature Thyroid 1.93 0.20 - HP CONVERSION Stimulating 4.50 Hormone uIU/mL Specimen (Source) Anatomical Collection Method Collection Time Re ceived Time Location / / Volume Laterality 01/19/2007 10:56 AM CDT Judy Sorensen MD LAB_1 Performing Organization Address [facility] Phon e Number HP CONVERSION Pap Smear (01/19/2007 9:13 AM CDT) Patholo gist Method Time Signature PAP Smear SEE TEXT No normal HP CONVERSION Liquid Based range Comment: Patient: SHU OLIVA ? CERVICAL CYTOLOGY REPORT Pathology # ??[id number] ?Date Obtained: ? Date Received: CYTOLOGIC IMPRESSION: Negative for intraepithelial lesion or m alignancy. Verified 01/23/07 by: ??JLD ?(electronic signature) ? 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 Satisfactory. ENDOCERVICAL CELLS: ??Absent; patient is post-menopausal. Specimen (Source) Anatomical Collection Method Collection Time Re ceived Time Location / / Volume Laterality 01/19/2007 9:13 AM CDT Judy Sorensen MD LAB_1 Performing Organization Address City/State/ZIP Code Phon e Number HP CONVERSION documented in this encounter Visit Diagnoses Not on filedocumented in this encounter Care Teams Diet Supervisor Relationship Specialty Start Date End Date Judy Sorensen MD PCP - General 12/18/10 05/02/18 [address] [place], [place] [address] documented as of this encounter
--- OUTSIDE RECORDS SUMMARY | 2022-04-27 02:59 | XMS_ITS | Encounter Summary ---
:1940 Author Organization [employer] Address [address] [place] [address] Care Team Providers Name Role Phone Judy Sorensen MD Primary Care Provider Reason for Visit Reason Comments Other Encounter Details Date Type Department Care Team Description 11/18/[address] [facility], Message Other [address] [place] [address] Social History Tobacco Use Types Packs/Day Years Used Date Smoking Tobacco: Never Assessed Sex Assigned at Date Recorded Not on file documented as of this encounter [facility], Message - 11/18/2008 11:26 AM CST Phone Note filed by Alaris at 01/06/111842 Author: Alaris Service: (none) Author Type: (none) Filed: 01/06/111842 Note Time: 11/18/081125 Status: Signed Target Aircraft Technician: Alaris Prescription Refill Please provide enough refills to last until patient's next visit. Comment:- Pharmacy Seq #:-[phone] Pharmacy Name:-[employer] or City:[facility] Clinician Name:-Suzie Drug Name/Strength:-Simvastatin 80mg tabs. Sig: Dose/Route/Freq:-Take 1 tab daily in the evening. Quantity & Last Fill:-90 08/22/08 Created on 18Nov2008 11:26am by SOO MO J On 19Nov2008 4:31pm BURT WARREN wrote: Renewed medication per medication refill protocol. REVIEWER documented in this encounter Plan of Treatment Not on filedocumented as of this encounter Visit Diagnoses Not on filedocumented in this encounter Care Teams Pencil Inspector Relationship Specialty Start Date End Date Judy Sorensen MD PCP - General 12/18/10 05/02/18 [address] [place] [address] documented as of this encounter
--- OUTSIDE RECORDS SUMMARY | 2022-04-27 02:59 | XMS_ITS | Encounter Summary ---
:1940 Author Organization [facility] Address [address] [address] Care Team Providers Name Role Phone Judy Sorensen MD Primary Care Provider Encounter Details Date Type Department Care Team Description 03/11/2008 Notes/Orders [facility] icine Conversion, User [address] [place] [address] [place], [place] [phone] [address] Social History Tobacco Use Types Packs/Day Years Used Date Smoking Tobacco: Never Assessed Sex Assigned at Date Recorded Not on file documented as of this encounter Plan of Treatment Not on filedocumented as of this encounter Procedures Procedure Name Priority Date/Time Associated Diagnosis Comme nts ENDOSCOPY, COLON, Routine 03/11/2008 2:50 PM CDT SCREENING/DIAGNOSTIC documented in this encounter Results Endoscopy, colon, diagnostic (03/11/2008 2:50 PM CDT) Specimen (Source) Anatomical Location Collection Method / Collectio n Time Received Time / Laterality Volume User Conversion PN GI PROCEDURE ORDERABLES Performing Organization Address City/State/ZIP Code Phon e Number HP CONVERSION documented in this encounter Visit Diagnoses Not on filedocumented in this encounter Care Teams Biomass Boiler Operator Relationship Specialty Start Date End Date Judy Sorensen MD PCP - General 12/18/10 05/02/18 [address] [place] [address] documented as of this encounter
--- OUTSIDE RECORDS SUMMARY | 2022-04-27 02:59 | XMS_ITS | Encounter Summary ---
:1940 Author Organization [employer] Address [address] [place] [address] Care Team Providers Name Role Phone Judy Sorensen MD Primary Care Provider Encounter Details Date Type Department Care Team Description 02/20/2009 PN Conversion Only [place] [id number] [place] [address] [place], [place] [id number] (Wo rk) Social History Tobacco Use Types Packs/Day Years Used Date Smoking Tobacco: Never Assessed Sex Assigned at Date Recorded Not on file documented as of this encounter Plan of Treatment Not on filedocumented as of this encounter Procedures Procedure Name Priority Date/Time Associated Comments Diagnosis ELECTROLYTES (NA, K, Routine 02/20/2009 3:01 PM R esults for this CL, BICARB) CDT procedure are i n the results section. LIPID PANEL AND Routine 02/20/2009 3:01 PM Result s for this DIRECT LDL(IF NEEDED) CDT proced ure are in the results section. CREATININE / GFR Routine 02/20/2009 3:01 PM Resul ts for this CDT procedure are i n the results section. ALT (SGPT) Routine 02/20/2009 3:01 PM Results f or this CDT procedure are i n the results section. AST Routine 02/20/2009 3:01 PM Results f or this CDT procedure are i n the results section. documented in this encounter Results ALT (SGPT) (02/20/2009 3:01 PM CDT) Patholo gist Method Time Signature Alanine 20 4 - 55 HP CONVERSION Aminotransferase U/L Specimen (Source) Anatomical Collection Method Collection Time Re ceived Time Location / / Volume Laterality 02/20/2009 3:01 PM CDT Judy Sorensen MD LAB_1 Performing Organization Address [facility] Code Phon e Number HP CONVERSION AST (02/20/2009 3:01 PM CDT) [facility] Method Time Signature Aspartate 19 0 - 45 HP CONVERSION Aminotransferase U/L Specimen (Source) Anatomical Collection Method Collection Time Re ceived Time Location / / Volume Laterality 02/20/2009 3:01 PM CDT Judy Sorensen MD LAB_1 Performing Organization Address [facility] Code Phon e Number HP CONVERSION Creatinine / GFR (02/20/2009 3:01 PM CDT) athologist Signature Creatinine 0.8 0.4 - 1.3 HP CONVERSION Serum mg/dL Est GFR >60 >60 HP CONVERSION Am Comment: -[place] and Vrx-Mmjyeok-Gsxywig n reference range units: mL/min/1.73m2 Normal>60, moderate decrease 30 - 59, se james decrease 15 - 29, renal failure <15 mL/min/1.73 m2 NOTE: Choose the eGFR result above appro priate for the race of the patient. Est GFR Non-Afr Am >60 >60 HP CONVERSI ON Specimen (Source) Anatomical Collection Method Collection Time Re ceived Time Location / / Volume Laterality 02/20/2009 3:01 PM CDT Judy Sorensen MD LAB_1 Performing Organization Address City/[facility] Code Phon e Number HP CONVERSION (ABNORMAL) Electrolytes (NA, K, CL, Bicarb) (02/20/2009 3:01 PM CDT) athologist Signature Sodium 140 137 - 147 HP CONVERSION mEq/L Potassium 4.6 3.5 - 5.2 HP CONVERSION mEq/L Chloride 100 98 - 110 HP CONVERSION mEq/L Bicarbonate 34 (H) 23 - 33 HP CONVERSION mmol/L Specimen (Source) Anatomical Collection Method Collection Time Re ceived Time Location / / Volume Laterality 02/20/2009 3:01 PM CDT Judy Sorensen MD LAB_1 Performing Organization Address City/State/ZIP Code Phon e Number HP CONVERSION Lipid Panel and Direct LDL(If Needed) (02/20/2009 3:01 PM CDT) [facility] gist Method Time Signature Length Of Fast 12.0 Hours HP CONVERSION Cholesterol/HDL 3.0 No normal HP CONVERSION Ratio Screen range Cholesterol 192 <200 mg/dL HP CONVERSION HDL Cholesterol 63 >40 mg/dL HP CONVERSION Triglycerides 116 0 - 149 HP CONVERSION mg/dL LDL Calculated 106 0 - 130 HP CONVERSION mg/dL Comment: Specimen (Source) Anatomical Collection Method Collection Time Re ceived Time Location / / Volume Laterality 02/20/2009 3:01 PM CDT Judy Sorensen MD LAB_1 Performing Organization Address City/State/[facility] Code Phon e Number HP CONVERSION documented in this encounter Visit Diagnoses Not on filedocumented in this encounter Care Teams Ground Crewman Mission Support Relationship Specialty Start Date End Date Judy Sorensen MD PCP - General 12/18/10 05/02/18 [address] [place] [address] documented as of this encounter
--- OUTSIDE RECORDS SUMMARY | 2022-04-27 02:59 | XMS_ITS | Encounter Summary ---
:1940 Author Organization [email or web address] Address [address] [place] [address] Care Team Providers Name Role Phone Judy Sorensen MD Primary Care Provider Encounter Details Date Type Department Care Team Description 09/27/2006 PN Conversion Only OTHER CONVERSION [address] [place] [address] Social History Tobacco Use Types Packs/Day Years Used Date Smoking Tobacco: Never Assessed Sex Assigned at Date Recorded Not on file documented as of this encounter Plan of Treatment Not on filedocumented as of this encounter Visit Diagnoses Not on filedocumented in this encounter Care Teams President [employer] Relationship Specialty Start Date End Date Judy Sorensen MD PCP - General 12/18/10 05/02/18 [address] [place], [place] [id number] documented as of this encounter
--- OUTSIDE RECORDS SUMMARY | 2022-04-27 02:59 | XMS_ITS | Encounter Summary ---
:1940 Author Organization [employer] Address [address] [place] [address] Care Team Providers Name Role Phone Judy Sorensen MD Primary Care Provider Encounter Details Date Type Department Care Team Description 01/25/2008 PN Conversion Only [facility] [address] [address] [place] [address] Social History Tobacco Use Types Packs/Day Years Used Date Smoking Tobacco: Never Assessed Sex Assigned at Date Recorded Not on file documented as of this encounter Plan of Treatment Not on filedocumented as of this encounter Visit Diagnoses Not on filedocumented in this encounter Care Teams Physician Surgeon Relationship Specialty Start Date End Date Judy Sorensen MD PCP - General 12/18/10 05/02/18 [address] [place], [place] [address] documented as of this encounter
--- OUTSIDE RECORDS SUMMARY | 2022-04-27 02:59 | XMS_ITS | Encounter Summary ---
:1940 Author Organization [employer] Address [address] [place] [address] Care Team Providers Name Role Phone Judy Sorensen MD Primary Care Provider Reason for Visit Reason Comments Other Encounter Details Date Type Department Care Team Description 02/27/2008 Telephone [facility] Radha Hendricks RN Other [address] [place] [address] Social History Tobacco Use Types Packs/Day Years Used Date Smoking Tobacco: Never Assessed Sex Assigned at Date Recorded Not on file documented as of this encounter Progress Notes Radha Hendricks RN - 02/27/2008 8:32 PM CDT Phone Note filed by Radha Hendricks RN at 01/05/112250 Author: Radha Hendricks RN Service: (none) Author Type: Registered Nurse Filed: 01/05/112250 Note Time: 02/27/082031 Status: Signed Licensed Social Worker: Radha Hendricks RN (Registered Nurse) CLINICIAN FOLLOW-UP: None IMPRESSION: Vomited x1. SYMPTOMS: Patient scheduled for Colonoscopy tomorrow. Tonight, she has 2 glasses left of the golytely prep . Vomited x1. Informed to let her stomach rest for tonight. The resume again in the morning. If any questions or problems advised to callback. Denies emergent, urgent, semi-urgent symptoms PATIENT INFORMATION: Problem List: Reviewed today in [employer] INTERIM/HOME MANAGEMENT RECOMMENDATIONS: Adult Guildines- Reviewed vomiting quildlines Advised to callback if any of the following occur: symptoms worsen or persist, any other questions or concerns. PLAN: HOME MANAGEMENT Patient/Caller agrees with plan and denies additional questions. *~PNNL~SCHOLAR ~ Created on 27Feb2008 8:32pm by RADHA HENDRICKS BOTOMIST LAB ASSISTANT documented in this encounter Plan of Treatment Not on filedocumented as of this encounter Visit Diagnoses Not on filedocumented in this encounter Care Teams Continuous Improvement Coach Relationship Specialty Start Date End Date Judy Sorensen MD PCP - General 12/18/10 05/02/18 [address] [place] [address] documented as of this encounter
--- OUTSIDE RECORDS SUMMARY | 2022-04-27 02:59 | XMS_ITS | Encounter Summary ---
:1940 Author Organization [employer] Address [address] [place] [address] Care Team Providers Name Role Phone Unassigned, Provider Primary Care Provider Unavailable Encounter Details Date Type Department Care Team Description 02/28/2008 Hospital Encounter [facility] [address] Julius Mcneil MD [address] [place] [place], [place] [id number] [facility] Julius Andersen MD [address] [place], [place] [id number] [facility] [place] [address] Social History Tobacco Use Types Packs/Day Years Used Date Smoking Tobacco: Never Assessed Sex Assigned at Date Recorded Not on file documented as of this encounter Medications at Time of Discharge Medication Sig Dispensed Refills Start Date End Date ATENolol (AKA TENORMIN) Take 1 tablet by mouth 30 0 01/31/2008 25 MG tablet daily (every 24 hours). LW Comment:needs appt ATENolol (AKA TENORMIN) Take 1 tablet by mouth 90 3 01/19/2007 25 MG tablet daily (every 24 hours). ATENolol (AKA TENORMIN) Take 1 tablet by mouth 90 3 01/19/2007 25 MG tablet daily (every 24 hours). ATENolol (AKA TENORMIN) Take 1 tablet by mouth 30 1 01/03/2007 25 MG tablet daily (every 24 hours). LW Comment:February 2007 beth ATENolol (AKA TENORMIN) Take 1 tablet by mouth 92 3 12/02/2005 25 MG tablet daily (every 24 hours). ATENolol (AKA TENORMIN) Take 1 tablet by mouth 30 1 11/25/2005 25 MG tablet daily (every 24 hours). LW Comment:Pt needs appt ATENolol (AKA TENORMIN) Take 1 tablet by mouth 90 0 08/23/2005 25 MG tablet daily (every 24 hours). ATENolol (AKA TENORMIN) Take 1 tablet by mouth 90 3 11/22/2004 25 MG tablet daily (every 24 hours). ATENolol (AKA TENORMIN) Take 1 tablet by mouth 90 3 01/15/2004 25 MG tablet daily (every 24 hours). ranitidine (AKA ZANTAC) Take 1 tablet by mouth 90 3 01/19/2007 300 MG tablet at bedtime as needed. LW Addl Instr:Indicated for: Acid Reflux ranitidine (AKA ZANTAC) Take 1 tablet by mouth 30 1 01/03/2007 300 MG tablet at bedtime as needed. LW Comment:February 2007 beth LW Addl Instr:Indicated for: Acid Reflux ranitidine (AKA ZANTAC) Take 1 tablet by mouth 90 0 08/23/2005 300 MG tablet at bedtime as needed. LW Addl Instr:Indicated for: Acid Reflux ranitidine (AKA ZANTAC) Take 1 tablet by mouth 90 3 11/22/2004 300 MG tablet at bedtime as needed. LW Addl Instr:Indicated for: Acid Reflux ranitidine (AKA ZANTAC) Take 1 tablet by mouth 90 3 07/05/2004 300 MG tablet at bedtime as needed. LW Addl Instr:Indicated for: Acid Reflux simvastatin (AKA ZOCOR) Take 1 tablet by mouth 90 3 10/16/2007 03/10/2010 80 MG tablet every evening. LW Addl Instr:Indicated for: High Cholesterol UNKNOWN MEDICATION Indications: PN: 0 02/21/2008 03/10/2010 UNKNOWN MEDICATION Indications: PN: 0 02/21/2008 03/10/2010 UNKNOWN MEDICATION Indications: PN: 0 02/20/2008 03/10/2010 UNKNOWN MEDICATION Indications: PN: 0 02/08/2008 03/10/2010 UNKNOWN MEDICATION Indications: PN: 0 01/25/2008 03/10/2010 UNKNOWN MEDICATION Indications: PN: 0 02/09/2007 03/10/2010 UNKNOWN MEDICATION Indications: PN: 0 01/19/2007 03/10/2010 UNKNOWN MEDICATION Indications: PN: 0 11/14/2006 03/10/2010 UNKNOWN MEDICATION Indications: PN: 0 10/12/2006 03/10/2010 UNKNOWN MEDICATION Indications: PN: 0 10/03/2006 03/10/2010 UNKNOWN MEDICATION Indications: PN: 0 09/25/2006 03/10/2010 UNKNOWN MEDICATION Indications: PN: 0 09/21/2006 03/10/2010 UNKNOWN MEDICATION Indications: PN: 0 08/29/2006 03/10/2010 UNKNOWN MEDICATION Indications: PN: 0 08/15/2006 03/10/2010 UNKNOWN MEDICATION Indications: PN: 0 08/01/2006 03/10/2010 UNKNOWN MEDICATION Indications: PN: 0 07/31/2006 03/10/2010 UNKNOWN MEDICATION Indications: PN: 0 07/28/2006 03/10/2010 UNKNOWN MEDICATION Indications: PN: 0 06/27/2006 03/10/2010 UNKNOWN MEDICATION Indications: PN: 0 05/16/2006 03/10/2010 UNKNOWN MEDICATION Indications: PN: 0 12/02/2005 03/10/2010 UNKNOWN MEDICATION Indications: PN: 0 06/25/2005 03/10/2010 documented as of this encounter Procedure Notes Julius Andersen MD - 02/28/2008 12:01 AM CDT Procedures signed by Julius Andersen MD at 02/28/08 1113 Author: Julius Andersen MD Service: (none) Author Type: Physician Filed: 01/08/11 0432 Note Time: 02/28/08 1015 Status: Signed Hvac Lead: Julius Andersen MD (Physician) Patient Name: Shu Oliva Procedure: Colonoscopy Indications: High risk colon CA screening: Personal history of adenomatous polyps Providers: Julius Andersen MD, Anselmo Mckeon RN Referring MD: Judy Larsen MD Medicines: Fentanyl 150 micrograms IV, Midazolam 2.5 mg IV Complications: No immediate complications Procedure: After I obtained informed consent, the scope was passed under direct vision. Throughout the procedure, the patient's blood pressure, pulse, and oxygen saturations were monitored continuously. The [id number] colonoscope was introduced through the anus and advanced to the ileum. The patient tolerated the procedure well. The quality of the prep was good. The prep was adequate to identify polyps. The colonoscopy was performed with moderate difficulty due to restricted mobility of the colon. Successful completion of the procedure was aided by increasing the dose of sedation medication. Findings: A sessile polyp was found in the sigmoid colon. The polyp was 3 mm in size. Biopsies were taken with a cold forceps for histology. Multiple small-mouthed diverticula were found in the sigmoid colon. Internal, non-bleeding, mild hemorrhoids were found. Impression: - A 3 mm polyp in the sigmoid colon. This was biopsied. - Diverticulosis sigmoid colon. - Internal, non bleeding, mild hemorrhoids were found. Recommendation: - Await pathology results. - Repeat colonoscopy in 5 years for surveillance. CPT4 Code(s): 98171, Colonoscopy, flexible, proximal to splenic flexure; with biopsy, single or multiple ICD9 Code(s): 211.3, Benign neoplasm of colon 562.10, Diverticulosis of colon (without mention of hemorrhage) 455.0, Internal hemorrhoids without mention of complication V76.51, Special screening for malignant neoplasms, colon The codes documented in this report are preliminary and upon sanitary chemist review may be revised to meet current compliance requirements. Julius Andersen MD Signed Date: 02/28/2008 11:13:43 AM Number of Addenda: 0 This document has been electronically signed. Note generated on 02/28/2008 10:14:23 AM documented in this encounter Plan of Treatment Not on filedocumented as of this encounter Procedures Procedure Name Priority Date/Time Associated Comments Diagnosis SURGICAL RISSA HILL Routine 02/28/2008 11:31 AM R esults for this NICOLLET CDT procedure are i n the results section. ENDOSCOPY OBTAINED Routine 02/28/2008 11:12 AM Re sults for this ANATOMICAL PATH CDT procedure ar e in the results section. documented in this encounter Results Pathology Report (02/28/2008 11:31 AM CDT) [facility] Method Time Signature Surgical SEE TEXT No normal HP CONVERSION Pathology range Comment: Patient: SHU OLIVA ?S URGICAL PATHOLOGY REPORT Pathology # ??[id number] ?Date Obtained: ? Date Received: DIAGNOSIS: ?Large intestine, sigmoid colon, po lypectomy: ?- Hyperplastic polyp. ?Blayne Bishop M.D. ?(electronic signature) DAG/DAG/amf Date of Report: 02/29/08 Pathology # ??[id number] ?Date Obtained: ? Date Received: ORGAN/TISSUE SITE: ?Sigmoid colon GROSS DESCRIPTION: ?Received in formalin labeled sigmo id polyp is a 0.3 x 0.2 x 0.2 cm ?irregular portion of way-pink tiss ue, which is submitted in toto in 1 ?cassette labeled 9630. MJL/amf MICROSCOPIC DESCRIPTION: ?The microscopic examination substa ntiates the diagnosis cited. Specimen (Source) Anatomical Collection Method Collection Time Re ceived Time Location / / Volume Laterality 02/28/2008 11:31 AM CDT Julius Andersen MD LAB_1 Performing Organization Address City/[facility]/ZIP Code Phon e Number HP CONVERSION Endoscopy Obtained Anatomical Path (02/28/2008 11:12 AM CDT) P athologist Signature Endo Tis Done No normal HP CONVERSION range Specimen (Source) Anatomical Collection Method Collection Time Re ceived Time Location / / Volume Laterality 02/28/2008 11:12 AM CDT Julius Andersen MD LAB_1 Performing Organization Address [facility] Phon e Number HP CONVERSION documented in this encounter Visit Diagnoses Not on filedocumented in this encounter Care Teams Ocean Export Agent Relationship Specialty Start Date End Date Unassigned, Provider PCP - General 08/25/00 12/17/[address] [place] [address] documented as of this encounter
--- OUTSIDE RECORDS SUMMARY | 2022-04-27 02:59 | XMS_ITS | Encounter Summary ---
:1940 Author Organization [employer] Address [address] [place] [address] Care Team Providers Name Role Phone Unassigned, Provider Primary Care Provider Unavailable Encounter Details Date Type Department Care Team Description 09/27/2006 - Hospital Encounter Muslim Jordan Gracia MD [address], [place] [phone] 10/03/2006 [id number] Carlee Gracia MD [address] [place] [address] [facility] [address] [place] [address] Social History Tobacco Use Types Packs/Day Years Used Date Smoking Tobacco: Never Assessed Sex Assigned at Date Recorded Not on file documented as of this encounter Last Filed Vital Signs Vital Sign Reading Time Taken Comments Blood Pressure 111/63 10/03/2006 7:39 AM C: Manual SEVERITY OF ILLNESS COORDINATOR Pulse 90 10/03/2006 7:39 AM SEVERITY OF ILLNESS COORDINATOR Temperature 37.1 ??C (98.8 ??F) 10/03/2006 7:39 AM ORAL C: 9 8.8 F SEVERITY OF ILLNESS COORDINATOR Respiratory Rate 16 10/03/2006 7:39 AM SEVERITY OF ILLNESS COORDINATOR Oxygen Saturation 96% 10/03/2006 4:43 AM SEVERITY OF ILLNESS COORDINATOR Inhaled Oxygen Concentration - - Weight 65.7 kg (144 lb 13.5 09/30/2006 7:25 AM C: 144.8 lb oz) SEVERITY OF ILLNESS COORDINATOR Height - - Body Mass Index - - documented in this encounter Discharge Summaries Carlee Gracia MD - 10/03/2006 12:01 AM CST Discharge Summaries signed by Carlee Gracia MD at 11/02/06 1615 Author: Carlee Gracia MD Service: (none) Author Type: Physician Filed: 01/07/11 0116 Note Time: 11/02/06 0836 Status: Signed Weir Fisherman: Carlee Gracia MD (Physician) NAME: SHU OLIVA MR#: [id number] ACCT: [id number] AUTHENTICATING CLINICIAN: CARLEE GRACIA MD JOB: [id number] LOC: 1 HOSPITAL DISCHARGE SUMMARY DATE OF ADMISSION: 09/27/06 DATE OF DISCHARGE: 10/03/06 ADMITTING DIAGNOSIS: Principal diagnosis while in the hospital was severe aortoiliac occlusive disease. Principal procedure performed while in the hospital was aortobifemoral bypass. DISCHARGE DIAGNOSIS: HISTORY: HOSPITAL COURSE: She was brought in the hospital on 09/27/06 and underwent an aortobifemoral bypass. Postoperatively her course was uneventful. She was in the intensive care unit for 24 to 36 hours and then was subsequently transferred to the floor. She began ambulating and on postoperative day number 4 she started a clear liquid diet. On postoperative day number 5 her diet was advanced and she was on oral pain pills. On postoperative day number 6 she was afebrile, tolerating a diet, and was discharged from the hospital. CONDITION ON DISCHARGE/INSTRUCTIONS: She will follow up with me in my clinic accordingly in the next 2 weeks. NICKIM:[id number] C: 11/02/06 09:10 DOCUMENT: [id number] RITY OF ILLNESS COORDINATOR documented in this encounter Medications at Time [...] 25 MG tablet daily (every 24 hours). atorvastatin (AKA Take 1.5 tablets by 135 3 6 LIPITOR) 40 MG tablet mouth daily (every 24 hours). LW Addl Instr:Indicated for: High Cholesterol atorvastatin (AKA Take 1 tablet by mouth 90 0 2004 LIPITOR) 40 MG tablet daily (every 24 hours). LW Addl Instr:Indicated for: High Cholesterol atorvastatin (AKA Take 1 tablet by mouth 90 3 2004 LIPITOR) 40 MG tablet daily (every 24 hours). LW Addl Instr:Indicated for: High Cholesterol atorvastatin (AKA Take 1 tablet by mouth 90 3 2003 LIPITOR) 40 MG tablet daily (every 24 hours). LW Addl Instr:Indicated for: High Cholesterol ranitidine (AKA ZANTAC) Take 1 tablet by [...] needed. LW Addl Instr:Indicated for: Acid Reflux UNKNOWN MEDICATION Indications: PN: 0 10/03/2006 03/10/2010 [...] documented as of this encounter Procedure Notes Carlee Gracia MD - 09/27/2006 12:01 AM CST OR Surgeon signed by Carlee Gracia MD at 10/01/06 1006 Author: Carlee Gracia MD Service: (none) Author Type: Physician Filed: 01/07/11 1617 Note Time: 09/29/06 0909 Status: Signed Weir Fisherman: Carlee Gracia MD (Physician) NAME: SHU OLIVA MR#: [id number] ACCT: [id number] AUTHENTICATING CLINICIAN: CARLEE GRACIA MD JOB: [id number] LOC: 1 OPERATIVE REPORT DATE OF OPERATION: 09/27/06 INDICATIONS FOR PROCEDURE: PREOPERATIVE DIAGNOSIS: Severe aortoiliac occlusive disease. POSTOPERATIVE DIAGNOSIS: Severe aortoiliac occlusive disease. PROCEDURE PERFORMED: 1. Aortobifemoral bypass using 16 by 8 mm PTFE graft. 2. Ligation of left external iliac artery. SURGEON: Carlee Gracia M.D. ALODIZE MACHINE OPERATOR: Ubaldo Hinojosa M.D. ANESTHESIA: General endotracheal anesthesia. FINDINGS: DESCRIPTION OF OPERATION: The patient was brought in the operating room, placed in supine position. All lines and monitors were placed and found to be functioning appropriately. After uneventful induction of general endotracheal anesthesia, the patient's abdomen and thighs were prepped and draped in the sterile and usual fashion. A vertical midline incision was done using a 10 blade to dissect down to the linea alba. We incised the linea alba above the umbilicus and grabbed the peritoneum. We incised the peritoneum with a 10 blade and opened up the peritoneal cavity and the remaining portion of the abdominal wall from just below the xiphoid process to just above the symphysis pubis. We then, in order to retract the small bowel contents to the right side of the abdomen, dissected up by the ligament of Treitz, identified the inferior mesenteric vein, dissected it out, and tied it off with interrupted 2-0 silk ties and cut between the silk ties. We then continued to immobilize the duodenum to the right side of the abdomen and then incised the retroperitoneum over the aorta down to just past the aortic bifurcation. We put abdominal wall retractors in as well as a fence retractor to keep the small bowel to the right side of the abdomen. A slink metal retractor was used in the left upper quadrant on a quarter moistened lap. I then created retroperitoneal tunnels over each iliac vessel to each groin. Dissected a little more distally on the left side as there was still patent flow through the left system and a milder stenosis. I dissected out the origin of the left external iliac artery and placed an umbilical tape around it there. I then dissected on either side of the aorta from the aortic bifurcation up to the renal vein identifying the inferior mesenteric artery in the process. I then made vertical incisions in each groin over the femoral vessels. These incisions were approximately 10 to 15 cm long. We used the 10 blade to dissect down through the subcutaneous tissue and with electrocautery, identified the fascia of the anterior abdominal wall then dissected distally and circumferentially dissected out the left and right common femoral superficial, femoral, and profundofemoral arteries placing vessel loops around each of these. I then completed the retroperitoneal tunnels by connecting the retroperitoneal tunnel in the abdomen to the groin placing umbilical tape through each one of these on the left and right side. I then gave the patient 6000 units of heparin and waited until they were adequately anticoagulated to an ACT of greater than 200. I then brought a 16 by 8 mm PTFE graft up onto the table, brought each limb of the graft through each groin, then clamped the aorta proximally just below the renal vein and distally an oblique clamp was placed on the aorta. We made a longitudinal arteriotomy on the aorta with an 11 blade, extended this with the Blandon scissors, removed all debris with heparinized saline as well as Russians as well as the suction. After all the debris was removed, I cut the proximal limb of the aortobifemoral graft to appropriate length in a beveled fashion with end-to-side anastomosis using running 3-0 Prolene suture. Just prior to completion of this anastomosis, we forward bled and back bled the artery then completed the anastomosis. After completion of the anastomosis, we clamped each femoral artery and clamped the graft and allowed blood to flow back into the inupiat circulation for a period of 1 to 2 minutes. This completed our proximal end-to-side anastomosis. Then after this was done, put thrombin soaked Gelfoam on the proximal anastomosis to maintain hemostasis then in the right groin, I clamped the right common femoral artery and pulled up on the vessel loops on the superficial femoral and profundofemoral arteries. Then made an arteriotomy on the right common femoral artery with an 11 blade, extended this into the superficial femoral artery with a Blandon scissors. Then I pulled the right limb of the graft to the appropriate length and did an end-to-side anastomosis after cutting the right limb of the graft to the appropriate length. This was done with 5-0 Prolene sutures. Prior to completion of this anastomosis, I forward bled and back bled the vessels of the right groin and I flushed the blood out of the graft into the left limb of the graft. I then irrigated out with copious amounts of heparinized saline and completed the anastomosis. After completion of the anastomosis, I first allowed blood to flow retrograde up into the pelvis and antegrade down the profunda then finally down to the superficial femoral artery. Excellent pulses were noted in the superficial femoral artery, distal anastomosis was excellent as well as an excellent Doppler signal. Thrombin soaked Gelfoam was placed around this anastomosis to achieve hemoglobin. Then in the left groin, I clamped the common femoral artery as well and pulled up on the vessel loops down the superficial femoral and profundofemoral artery, I made an arteriotomy on the common femoral artery, extended this arteriotomy onto the superficial femoral artery with the Blandon scissors, once again pulled the left limb of the graft to appropriate length in a beveled fashion, did an end-to-side anastomosis from the end of the left limb of the graft to the side of the artery. Again this was done with running 5-0 Prolene sutures. Prior to completion of this anastomosis, I forward bled and back bled the vessels of the left groin, inflow to the level of the groin, irrigated out with copious amounts of heparinized saline then completed anastomosis. After completion of the anastomosis, I first allowed blood to flow retrograde up into the pelvis then down the profundofemoral artery and finally down to the superficial femoral artery. Excellent pulse was felt in the superficial femoral artery after the anastomosis with an excellent Doppler signal. I then made sure we had adequate hemostasis around both those anastomosis with thrombin soaked Gelfoam. I then took the umbilical tape that was around the origin of the external iliac artery on the left and ligated this by tying it down to occlusive tension. This would relieve any competitive flow. I then gave the patient 35 mg of protamine and made sure we had adequate hemostasis throughout the abdomen and then we closed the retroperitoneum with 3-0 Vicryl suture. I tried to get some retroperitoneal tissue between the duodenum and the proximal anastomosis. This was done partially but not completely due to the fact that there was not adequate retroperitoneum to bring over. I then moved to the level of the contents of the abdomen and then brought down the omentum, made sure that the NG tube was in proper location, reapproximated the linea alba with a 0 loop PDS suture. After completion of the closure of the abdomen, I then reapproximated the abdominal incisions with rebecca. Then the groin deep layer was closed with 3-0 Vicryl suture, the subcutaneous layer was closed with 3-0 Vicryl suture, and the skin was closed with rebecca. The patient tolerated the operation and went to recovery in stable condition. 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 COMPLETE BLOOD Routine 09/29/2006 7:35 AM Results for this COUNT-W/DIFF SEVERITY OF ILLNESS COORDINATOR procedure are i n the results section. HEMOGLOBIN, BLOOD Routine 09/28/2006 8:27 PM Resu lts for this SEVERITY OF ILLNESS COORDINATOR procedure are i n the results section. XR PORTABLE CHEST 1 Routine 09/28/2006 7:15 AM Re sults for this VIEW SEVERITY OF ILLNESS COORDINATOR procedure are i n the results section. ECG 12 LEAD INPATIENT Routine 09/28/2006 6:34 AM Results for this SEVERITY OF ILLNESS COORDINATOR procedure are i n the results section. ELECTROLYTES (NA, K, Routine 09/28/2006 4:00 AM R esults for this CL, BICARB) SEVERITY OF ILLNESS COORDINATOR procedure are i n the results section. CREATININE / GFR Routine 09/28/2006 4:00 AM Resul ts for this SEVERITY OF ILLNESS COORDINATOR procedure are i n the results section. COMPLETE BLOOD Routine 09/28/2006 4:00 AM Results for this COUNT-W/DIFF SEVERITY OF ILLNESS COORDINATOR procedure are i n the results section. MAGNESIUM Routine 09/28/2006 4:00 AM Results f or this SEVERITY OF ILLNESS COORDINATOR procedure are i n the results section. BEDSIDE GLUCOSE MONITOR Routine 09/27/2006 5:31 PM Results for this POCT SEVERITY OF ILLNESS COORDINATOR procedure are i n the results section. MRSA CULTURE Routine 09/27/2006 5:27 PM Results f or this SEVERITY OF ILLNESS COORDINATOR procedure are i n the results section. XR PORTABLE CHEST 1 Routine 09/27/2006 4:17 PM Re sults for this VIEW SEVERITY OF ILLNESS COORDINATOR procedure are i n the results section. ECG 12 LEAD INPATIENT STAT 09/27/2006 4:05 PM Results for this SEVERITY OF ILLNESS COORDINATOR procedure are i n the results section. ELECTROLYTES (NA, K, Routine 09/27/2006 3:46 PM R esults for this CL, BICARB) SEVERITY OF ILLNESS COORDINATOR procedure are i n the results section. CREATININE / GFR Routine 09/27/2006 3:46 PM Resul ts for this SEVERITY OF ILLNESS COORDINATOR procedure are i n the results section. COMPLETE BLOOD Routine 09/27/2006 3:46 PM Results for this COUNT-W/DIFF SEVERITY OF ILLNESS COORDINATOR procedure are i n the results section. APTT (ACTIVATED PARTIAL Routine 09/27/2006 3:46 PM Results for this THROMBOPLASTIN TIME SEVERITY OF ILLNESS COORDINATOR procedur e are in the results section. MAGNESIUM Routine 09/27/2006 3:46 PM Results f or this SEVERITY OF ILLNESS COORDINATOR procedure are i n the results section. POTASSIUM Routine 09/27/2006 10:00 Results for this AM SEVERITY OF ILLNESS COORDINATOR procedure are i n the results section. BEDSIDE GLUCOSE MONITOR Routine 09/27/2006 9:57 AM Results for this POCT SEVERITY OF ILLNESS COORDINATOR procedure are i n the results section. LAB TYPE, SCREEN AND Routine 09/27/2006 9:45 AM R esults for this CROSSMATCH SEVERITY OF ILLNESS COORDINATOR procedure are i n the results section. documented in this encounter Results (ABNORMAL) Basic Metabolic Panel (09/29/2006 7:35 AM SEVERITY OF ILLNESS COORDINATOR) [facility] nGAP Method Time Signature Creatinine Serum 1.1 0.5 - 1.5 HP CONVERSION mg/dL Lab Glucose 140 (H) 60 - 100 HP CONVERSION mg/dL Bicarbonate 28 23 - 33 HP CONVERSION mmol/L Chloride 105 98 - 110 HP CONVERSION mEq/L Potassium 4.7 3.5 - 5.2 HP CONVERSION mEq/L Sodium 140 137 - 147 HP CONVERSION mEq/L Blood Urea 36 (H) 5 - 26 HP CONVERSION Nitrogen mg/dL Calcium 7.7 (L) 8.5 - 10.5 HP CONVERSION mg/dL Specimen (Source) Anatomical Collection Method Collection Time Re ceived Time Location / / Volume Laterality 09/29/2006 7:35 AM SEVERITY OF ILLNESS COORDINATOR Thomas Hinojosa MD LAB_1 Performing Organization Address City/State/ZIP Code Phon e Number HP CONVERSION (ABNORMAL) Complete Blood Count-W/Diff (09/29/2006 7:35 AM SEVERITY OF ILLNESS COORDINATOR) [facility] nGAP Method Time Signature White Blood Cell 9.0 3.8 - 11.0 HP CONVERSIO N Count K/cmm Red Blood Cell 4.10 3.70 - HP CONVERSION Count 5.20 m/cmm Hemoglobin 12.5 11.8 - HP CONVERSION 15.5 gm/dL Hematocrit 36.6 35.0 - HP CONVERSION 46.0 % Mean Corpuscular 89.2 80.0 - HP CONVERSION Volume 100.0 fl Mean Corpuscular 30.5 27.0 - HP CONVERSION Hemoglobin 34.0 pg Mean Corpuscular 34.1 32.0 - HP CONVERSION Hemoglobin Conc 36.5 gm/dL [place] RDW 13.6 11.0 - HP CONVERSION 15.0 % Platelet Count 170 140 - 450 HP CONVERSION k/cmm Differential Auto-Dif No normal HP CONVERSION Verify range Neutrophils 7.1 2.0 - 7.5 HP CONVERSION Absolute Count K/cmm Neutrophil 78.7 (H) 50.0 - HP CONVERSION 75.0 % Lymphocyte % 13.8 (L) 20.0 - HP CONVERSION 40.0 % Monocyte 7.0 5.0 - 14.0 HP CONVERSION % Eosinophil 0.1 0.0 - 6.0 HP CONVERSION % Basophil % 0.4 0.0 - 2.0 HP CONVERSION % Specimen (Source) Anatomical Collection Method Collection Time Re ceived Time Location / / Volume Laterality 09/29/2006 7:35 AM SEVERITY OF ILLNESS COORDINATOR Thomas Hinojosa MD LAB_1 Performing Organization Address City/State/ZIP Code Phon e Number HP CONVERSION Hemoglobin, Blood (09/28/2006 8:27 PM SEVERITY OF ILLNESS COORDINATOR) P athologist Signature Hemoglobin 13.1 11.8 - 15.5 HP CONVERSION gm/dL Specimen (Source) Anatomical Collection Method Collection Time Re ceived Time Location / / Volume Laterality 09/28/2006 8:27 PM SEVERITY OF ILLNESS COORDINATOR Carlee Gracia MD LAB_1 Performing Organization Address City/State/ZIP Code Phon e Number HP CONVERSION XR Portable Chest 1 View (09/28/2006 7:15 AM SEVERITY OF ILLNESS COORDINATOR) Anatomical Region Laterality Modality Chest, Lung Other Specimen (Source) Anatomical Location Collection Method / Collectio n Time Received Time / Laterality Volume Narrative 09/28/2006 7:15 AM SEVERITY OF ILLNESS COORDINATOR PORTABLE CHEST, 09/28/2006 Comparison is made to 09/27/2006. ??Tube s and catheters are unchanged. The lungs are clear, and the heart and m ediastinum are unremarkable. CONCLUSION: ??No change from 09/27/2006. [id number] Dictating ERASMO MENSAH RADIOLOGIST Procedure Note Erasmo Parikh - 11/26/2016Formattin g of this note might be different from the original. PORTABLE CHEST, 09/28/2006 Comparison is made to 09/27/2006. Tubes and catheters are unchanged. The lungs are clear, and the heart and m ediastinum are unremarkable. CONCLUSION: No change from 09/27/2006. [id number]/ss Dictating ERASMO MENSAH RADIOLOGIST Thomas Hinojosa MD RAD PORTABLE ECG 12 Lead Inpatient (09/28/2006 6:34 AM SEVERITY OF ILLNESS COORDINATOR) Specimen (Source) Anatomical Collection Method Collection Time Re ceived Time Location / / Volume Laterality 09/28/2006 6:34 AM SEVERITY OF ILLNESS COORDINATOR Narrative HP CONVERSION - 09/28/2006 6:34 AM SEVERITY OF ILLNESS COORDINATOR Normal sinus rhythm Normal ECG When compared with ECG of 27-SEP-2006 1 6:05, T wave amplitude has decreased in Infer ior leads Thomas Hinojosa MD PN ECG ORDERABLES Performing Organization Address City/State/ZIP Code Phon e Number HP CONVERSION (ABNORMAL) Complete Blood Count-W/Diff (09/28/2006 4:00 AM SEVERITY OF ILLNESS COORDINATOR) [facility] gist Method Time Signature White Blood Cell 5.9 3.8 - 11.0 HP CONVERSIO N Count K/cmm Red Blood Cell 2.85 (L) 3.70 - HP CONVERSION Count 5.20 m/cmm Hemoglobin 8.6 (L) 11.8 - HP CONVERSION 15.5 gm/dL Hematocrit 25.9 (L) 35.0 - HP CONVERSION 46.0 % Mean Corpuscular 90.7 80.0 - HP CONVERSION Volume 100.0 fl Mean Corpuscular 30.3 27.0 - HP CONVERSION Hemoglobin 34.0 pg Mean Corpuscular 33.3 32.0 - HP CONVERSION Hemoglobin Conc 36.5 gm/dL [place] RDW 12.9 11.0 - HP CONVERSION 15.0 % Platelet Count 188 140 - 450 HP CONVERSION k/cmm Differential Auto-Dif No normal HP CONVERSION Verify range Neutrophils 4.4 2.0 - 7.5 HP CONVERSION Absolute Count K/cmm Neutrophil 73.7 50.0 - HP CONVERSION 75.0 % Lymphocyte % 20.6 20.0 - HP CONVERSION 40.0 % Monocyte 5.4 5.0 - 14.0 HP CONVERSION % Eosinophil 0.1 0.0 - 6.0 HP CONVERSION % Basophil % 0.2 0.0 - 2.0 HP CONVERSION % Specimen (Source) Anatomical Collection Method Collection Time Re ceived Time Location / / Volume Laterality 09/28/2006 4:00 AM SEVERITY OF ILLNESS COORDINATOR Thomas Hinojosa MD LAB_1 Performing Organization Address City/State/ZIP Code Phon e Number HP CONVERSION Electrolytes (NA, K, CL, Bicarb) (09/28/2006 4:00 AM SEVERITY OF ILLNESS COORDINATOR) athologist Signature Sodium 140 137 - 147 HP CONVERSION mEq/L Potassium 4.3 3.5 - 5.2 HP CONVERSION mEq/L Chloride 109 98 - 110 HP CONVERSION mEq/L Bicarbonate 24 23 - 33 HP CONVERSION mmol/L Specimen (Source) Anatomical Collection Method Collection Time Re ceived Time Location / / Volume Laterality 09/28/2006 4:00 AM SEVERITY OF ILLNESS COORDINATOR Thomas Hinojosa MD LAB_1 Performing Organization Address City/[facility]/ZIP Code Phon e Number HP CONVERSION Creatinine / GFR (09/28/2006 4:00 AM SEVERITY OF ILLNESS COORDINATOR) athologist Signature Creatinine 0.7 0.5 - 1.5 HP CONVERSION Serum mg/dL Specimen (Source) Anatomical Collection Method Collection Time Re ceived Time Location / / Volume Laterality 09/28/2006 4:00 AM SEVERITY OF ILLNESS COORDINATOR Thomas Hinojosa MD LAB_1 Performing Organization Address City/[facility]/ZIP Code Phon e Number HP CONVERSION Magnesium (09/28/2006 4:00 AM SEVERITY OF ILLNESS COORDINATOR) athologist Signature Magnesium 1.9 1.5 - 2.4 HP CONVERSION mg/dL Specimen (Source) Anatomical Collection Method Collection Time Re ceived Time Location / / Volume Laterality 09/28/2006 4:00 AM SEVERITY OF ILLNESS COORDINATOR Thomas Hinojosa MD LAB_1 Performing Organization Address City/State/ZIP Code Phon e Number HP CONVERSION Bedside Glucose Monitor (09/27/2006 5:31 PM SEVERITY OF ILLNESS COORDINATOR) athologist Signature Bedside Blood 116 mg/dL HP CONVERSION Glucose Test Blood Glucose * No normal HP CONVERSION Screen, range Comment 1 Blood Glucose * No normal HP CONVERSION Screen, range Comment 2 Blood Glucose * No normal HP CONVERSION Screen, range Comment 3 Specimen (Source) Anatomical Collection Method Collection Time Re ceived Time Location / / Volume Laterality 09/27/2006 5:31 PM SEVERITY OF ILLNESS COORDINATOR Carlee Gracia MD LAB_1 Performing Organization Address City/State/ZIP Code Phon e Number HP CONVERSION MRSA Culture (09/27/2006 5:27 PM SEVERITY OF ILLNESS COORDINATOR) Analysis Performed At [facility] Time Signature Culture Mrsa SEE TEXT HP CONVERSION Screen Comment: Patient: SHU OLIVA Culture, MRSA Screen @ ?Collected: ??[id number] ??[id number] Source: ANTOINE ? Processed: ??[id number] ??[id number] ? ANTOINE Final Report ------ ?[id number] ??[id number] No Methicillin resistant Staph aureus is olated. @ = MRSA SCREEN Performed at ??[address] [place] ?[address] Specimen (Source) Anatomical Collection Method Collection Time Re ceived Time Location / / Volume Laterality 09/27/2006 5:27 PM SEVERITY OF ILLNESS COORDINATOR Mary Chahal MD LAB_1 Performing Organization Address City/[facility]/ZIP Code Phon e Number HP CONVERSION XR Portable Chest 1 View (09/27/2006 4:17 PM SEVERITY OF ILLNESS COORDINATOR) Anatomical Region Laterality Modality Chest, Lung Other Specimen (Source) Anatomical Location Collection Method / Collectio n Time Received Time / Laterality Volume Narrative 09/27/2006 4:17 PM SEVERITY OF ILLNESS COORDINATOR CHEST PORTABLE: ??09/27/2006 FINDINGS: ??A PA line terminates in the right pulmonary artery and there is no pneumothorax. ??Nasogastric tube terminates subdiaphragmatically. ??The lungs are cl ear and the heart and mediastinum are unremarkable. CONCLUSION: ??Clear lungs and no pneumot horax. ??Tubes and catheters in satisfactory position. Co-01- [id number] Dictating ERSAMO MENSAH RADIOLOGIST Procedure Note Erasmo Parikh - 11/26/2016Formattin g of this note might be different from the original. CHEST PORTABLE: 09/27/2006 FINDINGS: A PA line terminates in the ri ght pulmonary artery and there is no pneumothorax. Nasogastric tu be terminates subdiaphragmatically. The lungs are lane r and the heart and mediastinum are unremarkable. CONCLUSION: Clear lungs and no pneumotho rax. Tubes and catheters in satisfactory position. Co-01- [id number] Dictating ERASMO MENSAH RADIOLOGIST Carlee Gracia MD RAD PORTABLE ECG 12 Lead Inpatient (09/27/2006 4:05 PM SEVERITY OF ILLNESS COORDINATOR) Specimen (Source) Anatomical Collection Method Collection Time Re ceived Time Location / / Volume Laterality 09/27/2006 4:05 PM SEVERITY OF ILLNESS COORDINATOR Narrative HP CONVERSION - 09/27/2006 4:05 PM SEVERITY OF ILLNESS COORDINATOR Normal sinus rhythm Normal ECG When compared with ECG of 28-JUL-2006 0 8:27, No significant change was found Carlee Gracia MD PN ECG ORDERABLES Performing Organization Address City/State/ZIP Code Phon e Number HP CONVERSION (ABNORMAL) Complete Blood Count-W/Diff (09/27/2006 3:46 PM SEVERITY OF ILLNESS COORDINATOR) [facility] Method Time Signature White Blood Cell 8.1 3.8 - 11.0 HP CONVERSIO N Count K/cmm Red Blood Cell 3.44 (L) 3.70 - HP CONVERSION Count 5.20 m/cmm Hemoglobin 10.3 (L) 11.8 - HP CONVERSION 15.5 gm/dL Hematocrit 30.9 (L) 35.0 - HP CONVERSION 46.0 % Mean Corpuscular 89.9 80.0 - HP CONVERSION Volume 100.0 fl Mean Corpuscular 29.9 27.0 - HP CONVERSION Hemoglobin 34.0 pg Mean Corpuscular 33.2 32.0 - HP CONVERSION Hemoglobin Conc 36.5 gm/dL [place] RDW 13.1 11.0 - HP CONVERSION 15.0 % Platelet Count 210 140 - 450 HP CONVERSION k/cmm Differential Auto-Dif No normal HP CONVERSION Verify range Neutrophils 6.3 2.0 - 7.5 HP CONVERSION Absolute Count K/cmm Neutrophil 77.1 (H) 50.0 - HP CONVERSION 75.0 % Lymphocyte % 18.7 (L) 20.0 - HP CONVERSION 40.0 % Monocyte 2.4 (L) 5.0 - 14.0 HP CONVERSION % Eosinophil 0.7 0.0 - 6.0 HP CONVERSION % Basophil % 1.1 0.0 - 2.0 HP CONVERSION % Specimen (Source) Anatomical Collection Method Collection Time Re ceived Time Location / / Volume Laterality 09/27/2006 3:46 PM SEVERITY OF ILLNESS COORDINATOR Carlee Gracia MD LAB_1 Performing Organization Address City/[facility]/ZIP Code Phon e Number HP CONVERSION Electrolytes (NA, K, CL, Bicarb) (09/27/2006 3:46 PM SEVERITY OF ILLNESS COORDINATOR) athologist Signature Sodium 141 137 - 147 HP CONVERSION mEq/L Potassium 4.0 3.5 - 5.2 HP CONVERSION mEq/L Chloride 109 98 - 110 HP CONVERSION mEq/L Bicarbonate 24 23 - 33 HP CONVERSION mmol/L Specimen (Source) Anatomical Collection Method Collection Time Re ceived Time Location / / Volume Laterality 09/27/2006 3:46 PM SEVERITY OF ILLNESS COORDINATOR Carlee Gracia MD LAB_1 Performing Organization Address City/[facility]/ZIP Code Phon e Number HP CONVERSION Creatinine / GFR (09/27/2006 3:46 PM SEVERITY OF ILLNESS COORDINATOR) athologist Signature Creatinine 0.5 0.5 - 1.5 HP CONVERSION Serum mg/dL Specimen (Source) Anatomical Collection Method Collection Time Re ceived Time Location / / Volume Laterality 09/27/2006 3:46 PM SEVERITY OF ILLNESS COORDINATOR Carlee Gracia MD LAB_1 Performing Organization Address City/[facility]/ZIP Code Phon e Number HP CONVERSION Magnesium (09/27/2006 3:46 PM SEVERITY OF ILLNESS COORDINATOR) athologist Signature Magnesium 1.5 1.5 - 2.4 HP CONVERSION mg/dL Specimen (Source) Anatomical Collection Method Collection Time Re ceived Time Location / / Volume Laterality 09/27/2006 3:46 PM SEVERITY OF ILLNESS COORDINATOR Carlee Gracia MD LAB_1 Performing Organization Address [facility] Phon e Number HP CONVERSION APTT (Activated Partial Thromboplastin Time) (09/27/2006 3:46 PM SEVERITY OF ILLNESS COORDINATOR) [facility] gist Method Time Signature Partial 27.3 25.0 - HP CONVERSION Thromboplastin Time 38.0 sec Comment: New aPTT reagent in use effective 10/21/05 . See Last Word for current heparin dosage adjustments (new therapeutic rang e for full unfractionated heparin anticoagulation 65 ??to 95 seconds). Specimen (Source) Anatomical Collection Method Collection Time Re ceived Time Location / / Volume Laterality 09/27/2006 3:46 PM SEVERITY OF ILLNESS COORDINATOR Carlee Gracia MD LAB_1 Performing Organization Address [facility] Phon e Number HP CONVERSION Potassium (09/27/2006 10:00 AM SEVERITY OF ILLNESS COORDINATOR) athologist Signature Potassium 4.2 3.5 - 5.2 HP CONVERSION mEq/L Specimen (Source) Anatomical Collection Method Collection Time Re ceived Time Location / / Volume Laterality 09/27/2006 10:00 AM SEVERITY OF ILLNESS COORDINATOR Carlee Gracia MD LAB_1 Performing Organization Address [facility] Phon e Number HP CONVERSION Bedside Glucose Monitor (09/27/2006 9:57 AM SEVERITY OF ILLNESS COORDINATOR) athologist Signature Bedside Blood 108 mg/dL HP CONVERSION Glucose Test Blood Glucose * No normal HP CONVERSION Screen, range Comment 1 Blood Glucose * No normal HP CONVERSION Screen, range Comment 2 Blood Glucose * No normal HP CONVERSION Screen, range Comment 3 Specimen (Source) Anatomical Collection Method Collection Time Re ceived Time Location / / Volume Laterality 09/27/2006 9:57 AM SEVERITY OF ILLNESS COORDINATOR Carlee Gracia MD LAB_1 Performing Organization Address [facility] Phon e Number HP CONVERSION LAB TYPE, SCREEN AND CROSSMATCH (09/27/2006 9:45 AM SEVERITY OF ILLNESS COORDINATOR) P athologist Signature N/O BB NEG No normal HP CONVERSION ANTIBODY range SCREEN BB BLOOD TYPE O NEG No normal HP CONVERSION (BLOOD GROUP & range RH) Blood Type # 2 [id number] HP CONVERSION Units Requested Specimen (Source) Anatomical Collection Method Collection Time Re ceived Time Location / / Volume Laterality 09/27/2006 9:45 AM SEVERITY OF ILLNESS COORDINATOR Carlee Gracia MD LAB_1 Performing Organization Address City/State/ZIP Code Phon e Number HP CONVERSION documented in this encounter Visit Diagnoses Not on filedocumented in this encounter Care Teams Cupola Man Relationship Specialty Start Date End Date Unassigned, Provider PCP - General 08/25/00 12/17/[address] [place] [id number] documented as of this encounter
--- OUTSIDE RECORDS SUMMARY | 2022-04-27 02:59 | XMS_ITS | Encounter Summary ---
:1940 Author Organization [employer] Address [address] [place] [address] Care Team Providers Name Role Phone Judy Sorensen MD Primary Care Provider Reason for Visit Reason Comments Other Encounter Details Date Type Department Care Team Description 01/31/2008 Telephone [facility], Message Other [address] [place] [address] Social History Tobacco Use Types Packs/Day Years Used Date Smoking Tobacco: Never Assessed Sex Assigned at Date Recorded Not on file documented as of this encounter [facility], Message - 01/31/2008 9:12 AM CDT Phone Note filed by [employer] at 01/05/112055 Author: [employer] Service: (none) Author Type: (none) Filed: 01/05/112055 Note Time: 01/31/08911 Status: Signed 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 Comment:- Pharmacy Seq #:-[phone] Pharmacy Name:-[facility] Street or City:[facility] Clinician Name:-Evon Larsen Drug Name/Strength:-Atenolol 25MG tab Sig: Dose/Route/Freq:-take one tab daily Quantity & Last Fill:-90 10/13/07 Created on 31Jan2008 9:12am by OMAR SAUCEDA On 31Jan2008 3:23pm BURT WARREN wrote: REFILL APPOINTMENT NEEDED Please call patient and schedule appointment within 30 days. Medication has been renewed and faxed to pharmacy for 30 day supply only, per protocol. Comment:-Annual well exam or med ck appt due. 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
--- OUTSIDE RECORDS SUMMARY | 2022-04-27 02:59 | XMS_ITS | Encounter Summary ---
:1940 Author Organization [email or web address] Address [address] [address] Care Team Providers Name Role Phone Judy Sorensen MD Primary Care Provider Encounter Details Date Type Department Care Team Description 01/19/2007 Office Visit [facility] Gwen Sorensen MD [address] [address] [place] [address] [phone] Social History Tobacco Use Types Packs/Day Years Used Date Smoking Tobacco: Never Assessed Sex Assigned at Date Recorded Not on file documented as of this encounter Last Filed Vital Signs Vital Sign Reading Time Taken Comments Blood Pressure 136/70 01/19/2007 9:47 AM CDT Pulse 74 01/19/2007 9:47 AM CDT Temperature - - Respiratory Rate - - Oxygen Saturation - - Inhaled Oxygen Concentration - - Weight 60.7 kg (133 lb 12.8 oz) 01/19/2007 9:47 AM C: 6 0.7kg CDT Height 152.4 cm (5') 01/19/2007 9:47 AM C: 152.4cm CDT Body Mass Index 26.13 01/19/2007 9:47 AM CDT documented in this encounter Progress Notes Judy Larsen MD - 01/19/2007 12:01 AM CDT H&P signed by Judy Larsen MD at 01/30/07 1385 Author: Judy Larsen MD Service: (none) Author Type: Physician Filed: 01/07/11 1844 Note Time: 01/19/072017 Status: Signed Surveyor Oil Well Directional: Judy Larsen MD (Physician) NAME: SHU OLIVA MR#: [id number] ACCT: [id number] VISIT: [id number] DICTATING CLINICIAN: JUDY LARSEN MD JOB: [id number] LOC: 502 CLINIC PHYSICAL DATE OF VISIT: 01/19/2007 SUBJECTIVE: A 66-year-old comes in for health maintenance exam. PAST MEDICAL HISTORY: Of vascular disease, manifested in peripheral vascular disease, status post aortobifemoral bypass, history of ischemic heart disease. Full problem list is up-to-date as listed on LastWord health profile problem list. MEDICATIONS: Up-to-date as listed, which includes Lipitor 60 mg daily, atenolol 25 mg daily, ranitidine 300 mg at bedtime p.r.n. and aspirin 81 mg daily. ADR/ALLERGIES: DENIED. FAMILY HISTORY: Coronary artery disease. No breast or colon cancer. SOCIAL HISTORY: . is not yet retired. 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 HABITS: Quit smoking August 18, 2006, struggles daily with keeping off cigarettes. So far, to date, has had no relapses. REVIEW OF SYSTEMS: Painful bowel movements. No bleeding. Feels the same as the prior fissure she had after a . Some degree of swelling and itching that she thinks is maybe hemorrhoid. She did have colon cancer screening with colonoscopy September 2004 that was normal. Has noted a somewhat slow recovery from her surgery, only slowly regaining pep. Lots of pruritus, very dry skin. Tolerating her current medications well. Remainder of complete review of systems negative. She has no dyspnea on exertion. She has no orthopnea. No claudication symptoms. No angina. She does have a mild cough that is slowly improving since the time that he quit smoking. Feels like she is eating a lot. Surprised she has not gained weight. OBJECTIVE: A pleasant 66-year-old in no acute distress. VITAL SIGNS: Per flowsheet. SKIN: Without malignant-appearing change or rash. No lesions. HEENT: Normal. NECK: Supple, no adenopathy, thyromegaly or masses. LUNGS: Clear to auscultation and percussion. COR: S1 and S2, no murmur. Regular rate and rhythm. BREASTS: Normal to inspection and palpation. ABDOMEN: Soft and nontender, no masses or organomegaly. GENITALIA: Normal EG, BUS, vaginal vault and cervix with moderately severe atrophic changes. No friability. Mild vaginal wall relaxation without prolapse. Uterine and fundus normal in size, position, and mobility. No adnexal mass or tenderness. RECTOVAGINAL EXAM: Is exquisitely tender with pain on the left. External exam shows no distinct external hemorrhoid. There is a questionable fullness to suggest multiple internal hemorrhoids on exam. Fissure is not visible on external exam, and I did not do anoscopy, given the degree of tenderness she is having on digital rectal examination. ASSESSMENT: 1. Health maintenance exam. 2. Dry skin with pruritus. 3. Consider thyroid disease. 4. Hyperlipidemia on Lipitor therapy, controlled. 5. History of ischemic heart disease on atenolol 25 mg daily. 6. Anal fissure. 7. Hypertrophic mildly sensitive scar from aortofemoral bypass, primarily from the epigastrium to the umbilicus. The scar is somewhat overly sensitive and slightly hypertrophic. PLAN: Triamcinolone cream with vitamin E oil or open gel cap with massage of the scar twice daily. ProctoFoam AC. Discussed additional use of Anusol AC externally for the fissure. Avoid straining, avoid constipated stools, by history, stools are normal, soft. Refills of current medications are supplied. Cholesterol fractionation, AST, ALT, Pap smear, annual mammography. Continue nonsmoking. She is congratulated on her efforts to date. [facility]:[id number] C: 01/22/07 13:31 DOCUMENT: [id number] documented in this encounter Plan of Treatment Not on filedocumented as of this encounter Visit Diagnoses Not on filedocumented in this encounter Care Teams High Risk Case Manager Relationship Specialty Start Date End Date Judy Sorensen MD PCP - General 12/18/10 05/02/18 [address] [place] [address] documented as of this encounter
--- OUTSIDE RECORDS SUMMARY | 2022-04-27 02:59 | XMS_ITS | Encounter Summary ---
:1940 Author Organization [employer] Address [address] [address] Care Team Providers Name Role Phone Judy Sorensen MD Primary Care Provider Encounter Details Date Type Department Care Team Description 02/20/2009 Office Visit [facility] Gwen Sorensen MD [address] [address] [place] [address] [phone] Social History Tobacco Use Types Packs/Day Years Used Date Smoking Tobacco: Never Assessed Sex Assigned at Date Recorded Not on file documented as of this encounter Last Filed Vital Signs Vital Sign Reading Time Taken Comments Blood Pressure 132/70 02/20/2009 2:06 PM CDT Pulse 64 02/20/2009 2:06 PM CDT Temperature - - Respiratory Rate 12 02/20/2009 2:06 PM CDT Oxygen Saturation - - Inhaled Oxygen Concentration - - Weight 65.8 kg (144 lb 15.9 oz) 02/20/2009 2:06 PM C: 6 5.8kg CDT Height 152.4 cm (5') 02/20/2009 2:06 PM C: 152.4cm CDT Body Mass Index 28.32 02/20/2009 2:06 PM CDT documented in this encounter Progress Notes Judy Larsen MD - 02/20/2009 12:01 AM CDT H&P signed by Judy Larsen MD at 03/12/09 6870 Author: Judy Larsen MD Service: (none) Author Type: Physician Filed: 01/08/11 134 Note Time: 02/20/09 0001 Status: Signed Fixing Carpenter: Judy Larsen MD (Physician) Preventive Exam & Pelvic IMPRESSION: Routine preventive exam. Atherosclerotic Coronary Vascular Disease. Hyperlipidemia. SUBJECTIVE: 68 y/o patient presents for a routine preventive physical exam. Patient voices concerns about: Hips will hurt a bit after walking about a block. Breathing can restrict distance, able to walk about a block until needs to stop. No claudication or angina. Tolerating current medications. Quit smoking 6 weeks ago, determined to stay off. Stopped cold turkey as she has in the past. Requests medication refill. Past Medical History: With the exception of any notes below, patient's past history, family history, and social history were all reviewed and unchanged from the Electronic Medical Record note dated 12/25/2007. Patient's active medical problems were reviewed and updated on the Health Profile screen of the Electronic Medical Record. Pap History: Last Pap smear: 1 year ago No history of abnormal Pap smears. Menstrual History: Date of menopause: 10 years ago or more Other Medical/Surgical History: Atherosclerotic Coronary Vascular Disease. Hyperlipidemia. Reflux. Aortofemeral bipass Sep 2006. Adverse Drug Reactions: None. Current Medications: Reviewed today and updated on Health Profile in the Electronic Medical Record. Current Medications: Simvastatin 80 mg daily. Atenolol 25 mg daily. Ranitidine 300 mg daily. ASA once daily. Family History: (First degree family members) Premature ASCVD. No breast CA. No colon CA. Social History: Employment status: Retired. Marital Status: . Habits Tobacco: Quit: 6 weeks ago, 50 pack year history.. Preventive Health Assessment: Colonoscopy done February 2008 Exercise inadequate. Lipid screen is needed. Uses seatbelts. Tetanus immunization is up-to-date. Sun protection used. Review of Systems: With the exception of any items noted above, the remainder of complete ROS is negative. OBJECTIVE: Vital Signs: Vital Signs taken today were reviewed on the flowsheet in the Electronic Medical Record. Current Weight: 145 lbs. / 65.9 kg. Current Height: 60 inches Current BMI: 28.4 Kg/meters squared Blood Pressure: 132/70. General: Patient alert, in NAD. HEENT: PERRLA. Bilateral TM's, external Icanals, oropharynx normal. Neck: Supple, without thyromegaly or mass. Upper Extremities: FROM with good strength, no lesions or deformities. CV: K RRR without murmurs, rubs or gallops. Resp: Clear to auscultation without crackles, wheezes or distress. Moderately reduced breath sounds. Mild Mincreased AP diameter of the chest. Abdomen: Soft, non-tender, without Nhepatosplenomegaly, masses, or hernias. Breasts: Nontender, without Omasses, nipple discharge, erythema, or axillary adenopathy. Lymphatic: No Pneck, supraclavicular, axillary or groin lymphadenopathy. Lower Extremities: FROM, normal gait without edema, lesions, or deformity. Skin: R No lesions. Neuro: CN II-XII, motor & sensory function all intact. Psychiatric: Alert & oriented with normal affect and insight, does not appear depressed or anxious. ASSESSMENT: Routine preventive exam. Atherosclerotic Coronary Vascular Disease. Hyperlipidemia. Recent tobacco cessation COPD PLAN: No Pap smear due to low risk, re-evaluate next year. Mammogram. Cholesterol (Lipid) panel. Hypertension labs. Consider spirometry, inhalers, patient declines at this time. We will mail lab results to patient. Prescriptions provided, see OP Med list on Health Profile in the Electronic Medical Record. Immunizations reviewed and updated in Health Profile of the Electronic Medical Record. Patient is up to date.Offered Shingles /zostravax immunization, will check coverage.Discussed with patient: Recommended adequate calcium intake/osteoporosis prevention. Recommended a balanced nutritious diet. Benefits of regular exercise. Mammogram screening. Risks of smoking to health. Encouraged to continue nonsmoking, offered assistance if desired. *SH~PC~PEF ~Shorthand Note completed on: 03/12/2009 1:48 PM documented in this encounter Plan of Treatment Not on filedocumented as of this encounter Visit Diagnoses Not on filedocumented in this encounter Care Teams Promotions Specialist Relationship Specialty Start Date End Date Judy Sorensen MD PCP - General 12/18/10 05/02/18 [address] [place] [address] documented as of this encounter
--- OUTSIDE RECORDS SUMMARY | 2022-04-27 02:59 | XMS_ITS | Encounter Summary ---
:1940 Author Organization [employer] Address [address] [place] [address] Care Team Providers Name Role Phone Judy Sorensen MD Primary Care Provider Reason for Visit Reason Comments Other Encounter Details Date Type Department Care Team Description 10/16/2007 Telephone [facility], Message Other [address] [place], [place] [address] Social History Tobacco Use Types Packs/Day Years Used Date Smoking Tobacco: Never Assessed Sex Assigned at Date Recorded Not on file documented as of this encounter [facility], Message - 10/16/2007 9:55 AM CST Phone Note filed by [employer] at 01/05/11 2304 Author: [employer] Service: (none) Author Type: (none) Filed: 01/05/11 3466 Note Time: 10/16/07954 Status: Signed Driller Portable: Message [facility] Medication Issue/Refill Caller Name/Relationship:pt Primary Chief Mechanical Officer:Suzie Comment/Symptom:Patient's insurance does not cover Lipitor. She prefers to take a generic of Lipitor if Dr Larsen feels they're compatible. Pharmacy Name & Phone #:[facility] Street or City: Drug Name:New insurance covers Simvastitin and Pravastatine Strength:Lipitor script is for 60mg Dose/Route/Freq:1 tab daily Sales Representative Business Courses:Please notify Best call back number:[phone] Is it OK to leave a confidential message on this voicemail? y Created on 16Oct2007 9:55am by VINEET SUTTON On 16Oct2007 12:03pm JUDY LARSEN wrote: We will have her use simvastatin 80 mg. The doses are not quite equal in effect between the two, so she needs to have her cholesterol and liver tests done in three months. This is the strongest generic currently available, if the follow-up is not ideal control, then a nongeneric alternate is available. Rx sent. Acknowledged by JUDY LARSEN on 12:03pm On 16Oct2007 12:12pm KALI ONEAL wrote: left message with her Acknowledged by KALI ONEAL on 12:12pm D AND FAMILY THERAPIST documented in this encounter Plan of Treatment Not on filedocumented as of this encounter Visit Diagnoses Not on filedocumented in this encounter Care Teams Senior Medical Billing Specialist Relationship Specialty Start Date End Date Judy Sorensen MD PCP - General 12/18/10 05/02/18 [address] [place] [address] documented as of this encounter
--- OUTSIDE RECORDS SUMMARY | 2022-04-27 02:59 | XMS_ITS | Encounter Summary ---
:1940 Author Organization [email or web address] Address [address] [place] [address] Care Team Providers Name Role Phone Judy Sorensen MD Primary Care Provider Reason for Visit Reason Comments Other Encounter Details Date Type Department Care Team Description 12/31/2008 Telephone [facility], Message Other [address] [place] [address] Social History Tobacco Use Types Packs/Day Years Used Date Smoking Tobacco: Never Assessed Sex Assigned at Date Recorded Not on file documented as of this encounter [facility], Message - 12/31/2008 1:16 PM CDT Phone Note filed by [employer] at 01/07/11 0002 Author: [employer] Service: (none) Author Type: (none) Filed: 01/07/11 0002 Note Time: 12/31/08 1316 Status: Signed 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 Comment:- Pharmacy Seq #:-[phone] Pharmacy Name:-[facility] [address] or City:[facility] Clinician Name:-Evon GARCÍA Drug Name/Strength:-RANITIDINE 300MG TAB Sig: Dose/Route/Freq:-TAKE ONE TAB DAIY AT BEDTIME Quantity & Last Fill:-30 12/02/08 Created on 31Dec2008 1:16pm by OMAR SAUCEDA On 01Jan2009 10:58am BURT WARREN wrote: Renewed medication per medication refill protocol. ICE CONTROL OPERATOR documented in this encounter Plan of Treatment Not on filedocumented as of this encounter Visit Diagnoses Not on filedocumented in this encounter Care Teams Journeyman Press Operator Relationship Specialty Start Date End Date Judy Sorensen MD PCP - General 12/18/10 05/02/18 [address] [place] [address] documented as of this encounter
--- OUTSIDE RECORDS SUMMARY | 2022-04-27 02:59 | XMS_ITS | Encounter Summary ---
:1940 Author Organization [employer] Address [address] [place] [address] Care Team Providers Name Role Phone Judy Sorensen MD Primary Care Provider Reason for Visit Reason Comments Other Encounter Details Date Type Department Care Team Description 02/02/2007 Telephone [facility] ER, Message Other [address] [place], [place] [address] Social History Tobacco Use Types Packs/Day Years Used Date Smoking Tobacco: Never Assessed Sex Assigned at Date Recorded Not on file documented as of this encounter [facility], Message - 02/02/2007 3:09 PM CDT Phone Note filed by [employer] at 01/04/112109 Author: [employer] Service: (none) Author Type: (none) Filed: 01/04/112109 Note Time: 02/02/07 1509 Status: Signed Shoulder Sawyer: [employer] MESSAGE TO CARE TEAM NAME OF CALLER:Sg [facility] NAME OF CLINICIAN:Dr Larsen MESSAGE:please call regarding a RX script for pt written on , 01-24-07 PHARMACY NAME:[facility] PHONE #: [phone] fax# [phone] CITY:[place] CALL BACK PHONE OR CELL PHONE:above BEST TIME TO CALL BACK:any IS IT OK TO LEAVE A CONFIDENTIAL MESSAGE ON THIS VOICEMAIL? no Created on 02Feb2007 3:09pm by HUEY ERICKSON On 02Feb2007 3:51pm ARIANNA ADAME wrote: Pharmacy has a problem finding the folic acid RX ; has none with all of these things in warehouse; wants to know what the ccap stands for - is it calcium? Also do you know of a product otc with all of these? can be reached at # and fax # above; On 05Feb2007 9:40am JUDY LASREN wrote: Looking for folate 1 mg, B12 250 mg and B6 25 mg in a capsule, but can be a tab. Could substitute the 0.6 mg folate, may be available as an OTC. Acknowledged by JUDY LARSEN on 9:40am On 05Feb2007 12:20pm MARKUS CORLEY wrote: clarified with pharm Acknowledged by MARKUS CORLEY on 12:20pm ISSIONS SPECIALIST documented in this encounter Plan of Treatment Not on filedocumented as of this encounter Visit Diagnoses Not on filedocumented in this encounter Care Teams Telephone Switchboard Operator Relationship Specialty Start Date End Date Judy Sorensen MD PCP - General 12/18/10 05/02/18 [address] [place] [address] documented as of this encounter
--- OUTSIDE RECORDS SUMMARY | 2022-04-27 02:59 | XMS_ITS | Encounter Summary ---
:1940 Author Organization [employer] Address [address] [place] [address] Care Team Providers Name Role Phone Judy Sorensen MD Primary Care Provider Encounter Details Date Type Department Care Team Description 09/25/2006 PN Conversion Only [place] [address] [place] [address] [place] [address] (Wo rk) Social History Tobacco Use Types Packs/Day Years Used Date Smoking Tobacco: Never Assessed Sex Assigned at Date Recorded Not on file documented as of this encounter Plan of Treatment Not on filedocumented as of this encounter Procedures Procedure Name Priority Date/Time Associated Comments Diagnosis ELECTROLYTES (NA, K, Routine 09/25/2006 11:40 Res ults for this CL, BICARB) AM SUPERVISING FLOORPERSON procedure are i n the results section. HEMOGLOBIN, BLOOD Routine 09/25/2006 11:40 Result s for this AM SUPERVISING FLOORPERSON procedure are i n the results section. MAGNESIUM Routine 09/25/2006 11:40 Results for this AM SUPERVISING FLOORPERSON procedure are i n the results section. CALCIUM Routine 09/25/2006 11:40 Results for this AM SUPERVISING FLOORPERSON procedure are i n the results section. documented in this encounter Results Calcium (09/25/2006 11:40 AM SUPERVISING FLOORPERSON) P athologist Signature Calcium 8.7 8.5 - 10.5 HP CONVERSION mg/dL Specimen (Source) Anatomical Collection Method Collection Time Re ceived Time Location / / Volume Laterality 09/25/2006 11:40 AM SUPERVISING FLOORPERSON Judy Sorensen MD LAB_1 Performing Organization Address City/State/ZIP Code Phon e Number HP CONVERSION Magnesium (09/25/2006 11:40 AM SUPERVISING FLOORPERSON) athologist Signature Magnesium 1.9 1.5 - 2.4 HP CONVERSION mg/dL Specimen (Source) Anatomical Collection Method Collection Time Re ceived Time Location / / Volume Laterality 09/25/2006 11:40 AM SUPERVISING FLOORPERSON Judy Sorensen MD LAB_1 Performing Organization Address City/[facility] Code Phon e Number HP CONVERSION Electrolytes (NA, K, CL, Bicarb) (09/25/2006 11:40 AM SUPERVISING FLOORPERSON) athologist Signature Sodium 143 137 - 147 HP CONVERSION mEq/L Potassium 4.8 3.5 - 5.2 HP CONVERSION mEq/L Chloride 103 98 - 110 HP CONVERSION mEq/L Bicarbonate 28 23 - 33 HP CONVERSION mmol/L Specimen (Source) Anatomical Collection Method Collection Time Re ceived Time Location / / Volume Laterality 09/25/2006 11:40 AM SUPERVISING FLOORPERSON Judy Sorensen MD LAB_1 Performing Organization Address City/[facility] Phon e Number HP CONVERSION Hemoglobin, Blood (09/25/2006 11:40 AM SUPERVISING FLOORPERSON) athologist Signature Hemoglobin 13.7 11.8 - 15.5 HP CONVERSION gm/dL Specimen (Source) Anatomical Collection Method Collection Time Re ceived Time Location / / Volume Laterality 09/25/2006 11:40 AM SUPERVISING FLOORPERSON Judy Sorensen MD LAB_1 Performing Organization Address City/[facility]/ZIP [facility] Phon e Number HP CONVERSION documented in this encounter Visit Diagnoses Not on filedocumented in this encounter Care Teams Manager Of Tax Relationship Specialty Start Date End Date Judy Sorensen MD PCP - General 12/18/10 05/02/18 [address] [place] [address] documented as of this encounter
--- OUTSIDE RECORDS SUMMARY | 2022-04-27 02:59 | XMS_ITS | Encounter Summary ---
:1940 Author Organization [employer] Address [address] [address] Care Team Providers Name Role Phone Judy Sorensen MD Primary Care Provider Encounter Details Date Type Department Care Team Description 02/20/2008 Office Visit [facility] Gwen Sorensen MD [address] [address] [place] [address] [phone] Social History Tobacco Use Types Packs/Day Years Used Date Smoking Tobacco: Never Assessed Sex Assigned at Date Recorded Not on file documented as of this encounter Last Filed Vital Signs Vital Sign Reading Time Taken Comments Blood Pressure 120/76 02/20/2008 9:24 AM CDT Pulse 72 02/20/2008 9:24 AM CDT Temperature - - Respiratory Rate - - Oxygen Saturation - - Inhaled Oxygen Concentration - - Weight 63.5 kg (139 lb 15.9 oz) 02/20/2008 9:24 AM C: 6 3.5kg CDT Height 152.4 cm (5') 02/20/2008 9:24 AM C: 152.4cm CDT Body Mass Index 27.34 02/20/2008 9:24 AM CDT documented in this encounter Progress Notes Judy Larsen MD - 02/20/2008 12:01 AM CDT H&P signed by Judy Larsen MD at 02/20/08 7224 Author: Judy Larsen MD Service: (none) Author Type: Physician Filed: 01/08/11 0420 Note Time: 02/20/08 0001 Status: Signed Cross Country Coach: Judy Larsen MD (Physician) Preventive Exam & Pelvic IMPRESSION: Routine preventive exam. Smoking. Atherosclerotic Coronary Vascular Disease. Hypertension. Hyperlipidemia. Osteopenia. SUBJECTIVE: 67 y/o patient presents for a routine preventive physical and pelvic exam. Patient voices concerns about: Restarted smoking after going cold turkey, had quit for 7 mos. Using about 1 ppd and plans to quit again soon, but no quit date. Notes her breathing seems worse than when she was off the cigarettes. No angina. No claudication.. Tolerating medication. Intermittent rectal bleeding from anal fissure, rarely having pain. Requests medication refill. Patient is post-menopausal. Past Medical History: With the exception of any notes below, patient's past history, family history, and social history were all reviewed and unchanged from the Electronic Medical Record note dated 01/19/2007. Pap History: Last Pap smear: See date on the Electronic Medical Record preventive health screen. No history of abnormal Pap smears. Menstrual History: Date of menopause: 15 years ago or more. Other Medical/Surgical History: Atherosclerotic Coronary Vascular Disease. Hypertension. Hyperlipidemia. Adverse Drug Reactions: None. Current Medications: Reviewed today and updated on Health Profile in the Electronic Medical Record. Current Medications: atenolol 25 mg simvastatin 80 mg, calcium, vit D and prn ranitidine. Family History: (First degree family members) Premature ASCVD. No breast CA. No colon CA. Social History: Employment status: Not working. Marital Status: . Habits Tobacco: Yes. Alcohol: Less than once monthly. Preventive Health Assessment: Performs monthly breast self-exams. Calcium intake adequate. Exercise inadequate. Lipid screen is needed. Uses seatbelts. Tetanus immunization is up-to-date. Review of Systems: With the exception of any items noted above, the remainder of complete ROS is negative. OBJECTIVE: Vital Signs: Vital Signs taken today were reviewed on the flowsheet in the Electronic Medical Record. Current Weight: 140 lbs. / 63.6 kg. Current Height: 60 inches Current BMI: 27.4 Kg/meters squared Blood Pressure: 120/76. General: Patient alert, in NAD. HEENT: PERRLA. Bilateral TM's, external Lcanals, oropharynx normal. Neck: Supple, without thyromegaly or mass. Upper extremities: FROM with good strength, no lesions or deformities. CV: N RRR without murmurs, rubs or gallops. Resp: Clear to auscultation without Ocrackles, wheezes or distress. Abdomen: Soft, non-tender, without Phepatosplenomegaly, masses, or hernias. Breasts: Nontender, without Qmasses, nipple discharge, erythema, or axillary adenopathy. Pelvic: Normal external genitalia and urethra. Silver F[place], moist vaginal and cervical mucosa, without lesions. On bimanual exam, uterus is mobile, normal size, shape & Tconsistency, with no uterine or adenexal masses appreciated. Rectal: fissure with sentinal tag, minimal inflammation, mildly tender on rectal exam, not actively bleeding. Few small hemorroid tags. Otherwise normal Wwithout masses, normal tone. Lymphatic: No neck, supraclavicular, axillary Xor groin lymphadenopathy. Lower extremities: FROM, normal gait without Yedema, lesions, or deformity. Skin: No lesions. Neuro: CN II-XII, motor Z& sensory function all intact. Psychiatric: Alert & oriented with normal affect and insight, does not appear depressed or anxious. ASSESSMENT: Routine preventive exam. Smoking. Atherosclerotic Coronary Vascular Disease. Hypertension. Hyperlipidemia. Osteopenia. PLAN: Pap smear. Mammogram. Cholesterol (Lipid) panel. Fasting glucose. Hypertension labs. We will mail lab results to patient. Prescriptions provided, see OP Med list on Health Profile in the Electronic Medical Record. Immunizations reviewed and updated in Health Profile of the Electronic Medical Record. Patient is up to date.Discussed with patient: Breast self-exam recommended. Recommended adequate calcium intake/osteoporosis prevention. Benefits of regular exercise. Risks of smoking to health. Return for assistance with cessation. *SH~PC~PEF ~[place] Note completed on: 02/20/2008 7:06 PM documented in this encounter Plan of Treatment Not on filedocumented as of this encounter Visit Diagnoses Not on filedocumented in this encounter Care Teams Certified Surgical First Assistant Relationship Specialty Start Date End Date Judy Sorensen MD PCP - General 12/18/10 05/02/18 [address] [place] [address] documented as of this encounter
--- OUTSIDE RECORDS SUMMARY | 2022-04-27 02:59 | XMS_ITS | Encounter Summary ---
:1940 Author Organization [employer] Address [address] [place] [address] Care Team Providers Name Role Phone Judy Sorensen MD Primary Care Provider Encounter Details Date Type Department Care Team Description 09/05/2008 Office Visit [facility] [place] [address] [place] [address] [place], [place] [address] (Wo rk) Social History Tobacco Use Types Packs/Day Years Used Date Smoking Tobacco: Never Assessed Sex Assigned at Date Recorded Not on file documented as of this encounter Last Filed Vital Signs Vital Sign Reading Time Taken Comments Blood Pressure 140/64 09/05/2008 1:49 PM CELL FEED DEPARTMENT SUPERVISOR Pulse 72 09/05/2008 1:24 PM CELL FEED DEPARTMENT SUPERVISOR Temperature 36.6 ??C (97.9 ??F) 09/05/2008 1:24 PM ORAL C: 3 6.6 C CELL FEED DEPARTMENT SUPERVISOR Respiratory Rate 18 09/05/2008 1:24 PM CELL FEED DEPARTMENT SUPERVISOR Oxygen Saturation 96% 09/05/2008 1:24 PM CELL FEED DEPARTMENT SUPERVISOR Inhaled Oxygen Concentration - - Weight - - Height - - Body Mass Index - - documented in this encounter Progress Notes Sameer Amin MD - 09/05/2008 12:01 AM CST Progress Notes signed by Sameer Amin MD at 09/09/08 1000 Author: Sameer Amin MD Service: (none) Author Type: Physician Filed: 01/08/11 0917 Note Time: 09/05/08 0001 Status: Signed Transportation Planning Technician: Sameer Amin MD (Physician) NAME: SHU OLIVA MR#: [id number] ACCT: [id number] VISIT: [id number] DICTATING CLINICIAN: SAMEER AMIN MD CONFIRM #: [id number] LOC: 520 CLINIC PROGRESS NOTE DATE OF VISIT: 09/05/2008 CHIEF COMPLAINT: Productive cough. HISTORY OF PRESENT ILLNESS: This is a 67-year-old woman who presents with URI symptoms ongoing for the past couple of weeks with associated upper respiratory congestion, postnasal drainage, complicated in this past 5 or 6 days by worsening, productive cough with purulent sputum. The patient is a smoker. PAST MEDICAL HISTORY: Reviewed in [facility]. CURRENT MEDICATIONS: Reviewed and updated in [employer]. ADR/ALLERGIES: NONE. SOCIAL HISTORY: As above, the patient is a smoker. She is . SURGICAL HISTORY: Reviewed in [employer]. FAMILY HISTORY: None. REVIEW OF SYSTEMS: As per the HPI. There are no reports of high fever, pleuritic pain or hemoptysis and the remainder of her complete review of systems otherwise negative. PHYSICAL EXAM: VS: BP: 156/68. T: 97.9. P: 72. R: 18. Well-developed, well-nourished nontoxic 67-year-old woman. HEENT: Exam revealed upper respiratory congestion consistent with URI. The oropharynx was clear. NECK: Supple. No central cyanosis noted. No jugular venous distention. LUNGS: Reveal rhonchi throughout and she had a very rhonchitic cough. No obvious rales or bronchospasm heard. HEART: Normal S1, S2. No murmur. ABDOMEN: Soft, benign, positive bowel sounds. MUSCULOSKELETAL: No peripheral lower extremity edema, or joint effusions. DERMATOLOGIC: No peripheral exanthem noted. IMPRESSION: Acute bronchitis complicating URI. DISPOSITION PLAN: 1. A 5-day course of azithromycin 500 mg daily prescribed. 2. Robitussin with codeine prescribed for cough suppression at nighttime. 3. Return or follow up PMD p.r.n. if symptoms persist. SUBJECTIVE: OBJECTIVE: ASSESSMENT: PLAN: PRR:[id number] C: 09/08/08 04:57 CONFIRM #: [id number] FEED DEPARTMENT SUPERVISOR documented in this encounter Plan of Treatment Not on filedocumented as of this encounter Visit Diagnoses Not on filedocumented in this encounter Care Teams Parent Aide Relationship Specialty Start Date End Date Judy Sorensen MD PCP - General 12/18/10 05/02/18 [address] [place] [address] documented as of this encounter
--- OUTSIDE RECORDS SUMMARY | 2022-04-27 03:00 | XMS_ITS | Encounter Summary ---
:1940 Author Organization [employer] Address [address] [place] [address] Care Team Providers Name Role Phone Judy Sorensen MD Primary Care Provider Reason for Visit Reason Comments Other Encounter Details Date Type Department Care Team Description 11/22/2004 Telephone [facility], Message Other [address] [place] [address] Social History Tobacco Use Types Packs/Day Years Used Date Smoking Tobacco: Never Assessed Sex Assigned at Date Recorded Not on file documented as of this encounter Progress Notes Yves Clifton MA - 11/22/2004 1:13 PM CST Phone Note filed by Yves Clifton MA at 01/03/111705 Author: Yves Clifton MA Service: (none) Author Type: Nutrition Teacher Filed: 01/03/111705 Note Time: 11/22/04 1313 Status: Signed Manager Division: Yves Clifton MA (Nutrition Teacher) Pt. calling for the 3rd time. She is switching ins. and now needs new prescriptions for mail order. Prescriptions were varified in last word. Mail to patient's home address. Patients primary is Dr. Larsen will you please address. Created on 22Nov2004 1:13pm by YVES CLIFTON On 22Nov2004 1:34pm VICKIE WHITEHEAD wrote: Rx's printed and given to Doreen. Acknowledged by VICKIE WHITEHEAD on 1:34pm On 22Nov2004 1:36pm DOREEN SHANKAR wrote: rx's mailed to pt Acknowledged by DOREEN SHANKAR on 1:36pm documented in this encounter Plan of Treatment Not on filedocumented as of this encounter Visit Diagnoses Not on filedocumented in this encounter Care Teams Farm Equipment Operator Relationship Specialty Start Date End Date Judy Sorensen MD PCP - General 12/18/10 05/02/18 [address] [place] [address] documented as of this encounter
--- OUTSIDE RECORDS SUMMARY | 2022-04-27 03:00 | XMS_ITS | Encounter Summary ---
:1940 Author Organization [employer] Address [address] [place] [address] Care Team Providers Name Role Phone Judy Sorensen MD Primary Care Provider Encounter Details Date Type Department Care Team Description 07/12/2004 PN Conversion Only [place] [address] [place] [address] [place], [place] [address] (Wo rk) Social History Tobacco Use Types Packs/Day Years Used Date Smoking Tobacco: Never Assessed Sex Assigned at Date Recorded Not on file documented as of this encounter Plan of Treatment Not on filedocumented as of this encounter Procedures Procedure Name Priority Date/Time Associated Comments Diagnosis LIPID PANEL AND Routine 07/12/2004 8:10 AM Result s for this DIRECT LDL(IF CDT procedure are in NEEDED) the results section. CREATININE / GFR Routine 07/12/2004 8:10 AM Resul ts for this CDT procedure are i n the results section. ALT (SGPT) Routine 07/12/2004 8:10 AM Results f or this CDT procedure are i n the results section. AST Routine 07/12/2004 8:10 AM Results f or this CDT procedure are i n the results section. documented in this encounter Results ALT (SGPT) (07/12/2004 8:10 AM CDT) [facility] gist Method Time Signature Alanine 37 0 - 65 HP CONVERSION Aminotransferase U/L Specimen (Source) Anatomical Collection Method Collection Time Re ceived Time Location / / Volume Laterality 07/12/2004 8:10 AM CDT Judy Sorensen MD LAB_1 Performing Organization Address City/State/ZIP Code Phon e Number HP CONVERSION AST (07/12/2004 8:10 AM CDT) [facility] Method Time Signature Aspartate 17 0 - 45 HP CONVERSION Aminotransferase U/L Specimen (Source) Anatomical Collection Method Collection Time Re ceived Time Location / / Volume Laterality 07/12/2004 8:10 AM CDT Judy Sorensen MD LAB_1 Performing Organization Address City/State/ZIP Code Phon e Number HP CONVERSION Creatinine / GFR (07/12/2004 8:10 AM CDT) athologist Signature Creatinine 0.8 0.5 - 1.5 HP CONVERSION Serum mg/dL Specimen (Source) Anatomical Collection Method Collection Time Re ceived Time Location / / Volume Laterality 07/12/2004 8:10 AM CDT Judy Sorensen MD LAB_1 Performing Organization Address City/[facility]/ZIP Code Phon e Number HP CONVERSION (ABNORMAL) Lipid Panel and Direct LDL(If Needed) (07/12/2004 8:10 AM CDT) [facility] Method Time Signature Cholesterol/HDL 2.9 No normal HP CONVERSION Ratio Screen range Cholesterol 176 125 - 199 HP CONVERSION mg/dL HDL Cholesterol 61 (H) 40 - 60 HP CONVERSION mg/dL Triglycerides 112 0 - 199 HP CONVERSION mg/dL LDL Calculated 93 66 - 129 HP CONVERSION mg/dL Comment: Specimen (Source) Anatomical Collection Method Collection Time Re ceived Time Location / / Volume Laterality 07/12/2004 8:10 AM CDT Judy Sorensen MD LAB_1 Performing Organization Address City/State/ZIP Code Phon e Number HP CONVERSION documented in this encounter Visit Diagnoses Not on filedocumented in this encounter Care Teams Anode Builder Relationship Specialty Start Date End Date Judy Sorensen MD PCP - General 12/18/10 05/02/18 [address] [place] [address] documented as of this encounter
--- OUTSIDE RECORDS SUMMARY | 2022-04-27 03:00 | XMS_ITS | Encounter Summary ---
:1940 Author Organization [employer] Address [address] [place] [address] Care Team Providers Name Role Phone Judy Sorensen MD Primary Care Provider Reason for Visit Reason Comments Other Encounter Details Date Type Department Care Team Description 03/10/2006 Telephone [facility], Message Other [address] [place] [address] Social History Tobacco Use Types Packs/Day Years Used Date Smoking Tobacco: Never Assessed Sex Assigned at Date Recorded Not on file documented as of this encounter Progress Notes Mynor Pruitt - 03/10/2006 8:14 AM CDT Phone Note filed by Mynor Pruitt at 01/04/1125 Author: Mynor Pruitt Service: (none) Author Type: (none) Filed: 01/04/11 0535 Note Time: 03/10/06813 Status: Signed Kaiako Kohanga Reo: Alisa Conversion this pt showed up downstairs to get her labs drawn but had no orders. she recieved a letter in the mail stating she needed Cholf, ast, and alt. they will draw her and wait for the order to get sent down. thanks. Created on 10Mar2006 8:14am by MYNOR PRUITT On 10Mar2006 9:17am MARKUS CORLEY wrote: lab slip to lab Acknowledged by MARKUS CORLEY on 9:17am CAL RECEPTION documented in this encounter Plan of Treatment Not on filedocumented as of this encounter Visit Diagnoses Not on filedocumented in this encounter Care Teams Flaker Tender Relationship Specialty Start Date End Date Judy Sorensen MD PCP - General 12/18/10 05/02/18 [address] [place] [address] documented as of this encounter
--- OUTSIDE RECORDS SUMMARY | 2022-04-27 03:00 | XMS_ITS | Encounter Summary ---
:1940 Author Organization [employer] Address [address] [place] [address] Care Team Providers Name Role Phone Judy Sorensen MD Primary Care Provider Reason for Visit Reason Comments Other Encounter Details Date Type Department Care Team Description 08/16/2006 Telephone [facility] Judy Christensen MD Other [address] [place] [address] [place], [place] [address] (Wo rk) Social History Tobacco Use Types Packs/Day Years Used Date Smoking Tobacco: Never Assessed Sex Assigned at Date Recorded Not on file documented as of this encounter Progress Notes [place], Message - 08/16/2006 9:46 AM CST Phone Note filed by [employer] at 01/04/11 961 Author: [employer] Service: (none) Author Type: (none) Filed: 01/04/11 1137 Note Time: 08/16/06945 Status: Signed College Counselor: [facility] [employer] Preliminary Dobutimine Stress ECHO results are available on this patient in LastWord. Created on 16Aug2006 9:46am by MARTA KIRAN Acknowledged by JUDY GARCÍA on 12:11pm ISHINGS CONSERVATOR documented in this encounter Plan of Treatment Not on filedocumented as of this encounter Visit Diagnoses Not on filedocumented in this encounter Care Teams Automobile Upholsterer Apprentice Relationship Specialty Start Date End Date Judy Sorensen MD PCP - General 12/18/10 05/02/18 [address] [place] [address] documented as of this encounter
--- OUTSIDE RECORDS SUMMARY | 2022-04-27 03:00 | XMS_ITS | Encounter Summary ---
:1940 Author Organization [employer] Address [address] [place] [address] Care Team Providers Name Role Phone Unassigned, Provider Primary Care Provider Unavailable Encounter Details Date Type Department Care Team Description 05/24/2006 Hospital Encounter SPIRITISM CONVERSION Judy Sorensen MD [address] [place], [place] [address] (Wo rk) Social History Tobacco Use Types [...] needed. LW Addl Instr:Indicated for: Acid Reflux buPROPion (AKA ZYBAN) Take 1 tablet by mouth 60 2 08/29/2006 150 MG 12 hour release 2 times daily. LW Addl tablet Instr:Take 1 tablet in the morning for 3 days, then increase to 1 tablet two times a day. Indicated for: Tobacco Cessation UNKNOWN MEDICATION Indications: PN: 0 05/16/2006 03/10/2010 UNKNOWN MEDICATION Indications: PN: 0 12/02/2005 03/10/2010 UNKNOWN MEDICATION Indications: PN: 0 06/25/2005 03/10/2010 documented as of this encounter Plan of Treatment Not on filedocumented as of this encounter Procedures Procedure Name Priority Date/Time Associated Diagnosis Comme nts US CAROTID Routine 05/24/2006 3:09 PM Results for this DUPLEX SCAN BILAT CDT procedure are in the results section. [facility] LOWER Routine 05/24/2006 3:08 PM Results f or this EXTREMITY PHYSIO CDT procedure a re in STUDY WITH EXERCISE the resu lts section. documented in this encounter Results [facility] Carotid Duplex Scan Bilat (05/24/2006 3:09 PM CDT) Anatomical Region Laterality Modality Vascular, Head, Neck Other Specimen (Source) Anatomical Location Collection Method / Collectio n Time Received Time / Laterality Volume Impressions 05/24/2006 3:09 PM CDT 50-69%, stenosis within the right legal summer intern al carotid artery. <50% stenosis within the left internal c arotid artery. Recommended follow-up ultrasound: 1 year Dictating JOHNNY FAIR MD Narrative 05/24/2006 3:09 PM CDT Indication: carotid stenosis A duplex ultrasound examination with col or flow was performed on the extracranial carotid arteries. RIGHT CAROTID SYSTEM There is evidence of calcified and non-c alcified plaque in the carotid bulb, extending into the proxima l segment of the internal carotid artery. There is an increase to blood flow veloc ities in the proximal internal carotid artery, indicating the presence of a 50-69% stenosis (PSV 136cm/s, EDV 44cm/s, ratio:2.4). There is an increase to blood flow veloc ities in the proximal external carotid artery, indicating a >5 0% stenosis (PSV 184cm/s). There is antegrade blood flow present in the vertebral artery. There is no evidence of a significant in crease in blood flow velocities in the subclavian artery. LEFT CAROTID SYSTEM There is evidence of calcified plaque in the carotid bulb, extending into the proximal segment of the interna l carotid artery. There is normal blood flow velocities pr esent within the common, internal and external carotid arteries, indicating that the plaque present is causing a <50% stenosis. There is antegrade blood flow present in the vertebral artery. There is no evidence of a significant in crease in blood flow velocities in the subclavian artery. FINAL Procedure Note Johnny Rodriguez MD - 11/26/2016Formatt ing of this note might be different from the original. Indication: carotid stenosis A duplex ultrasound examination with col or flow was performed on the extracranial carotid arteries. RIGHT CAROTID SYSTEM There is evidence of calcified and non-c alcified plaque in the carotid bulb, extending into the proxima l segment of the internal carotid artery. There is an increase to blood flow veloc ities in the proximal internal carotid artery, indicating the presence of a 50-69% stenosis (PSV 136cm/s, EDV 44cm/s, ratio:2.4). There is an increase to blood flow veloc ities in the proximal external carotid artery, indicating a >5 0% stenosis (PSV 184cm/s). There is antegrade blood flow present in the vertebral artery. There is no evidence of a significant in crease in blood flow velocities in the subclavian artery. LEFT CAROTID SYSTEM There is evidence of calcified plaque in the carotid bulb, extending into the proximal segment of the interna l carotid artery. There is normal blood flow velocities pr esent within the common, internal and external carotid arteries, indicating that the plaque present is causing a <50% stenosis. There is antegrade blood flow present in the vertebral artery. There is no evidence of a significant in crease in blood flow velocities in the subclavian artery. FINAL IMPRESSION 50-69%, stenosis within the right legal summer intern al carotid artery. <50% stenosis within the left internal c arotid artery. Recommended follow-up ultrasound: 1 year Dictating JOHNNY FAIR MD Judy Sorensen MD RAD VASCULAR US US Lower Extremity Physio Study With Exercise (05/24/2006 3:08 PM CDT) Anatomical Region Laterality Modality Vascular, Lower Extremity, Leg Other Specimen (Source) Anatomical Location Collection Method / Collectio n Time Received Time / Laterality Volume Impressions 05/24/2006 3:08 PM CDT Abnormal resting and exercise physiologi c study, suggestive of severe right lower extremity aortoiliac inflow disease and moderate left lower extremity aortoiliac inflow diseas e. Recommend follow-up with MRA or Angiogra phy for further evaluation. Dictating JOHNNY FAIR MD Narrative 05/24/2006 3:08 PM CDT Indication: Claudication A Doppler examination with segmental pr essures/PVRs and exercise testing was performed on both lower extr emities. RIGHT LOWER EXTREMITY There are reduced biphasic Doppler wavef orms present in the common femoral, popliteal, posterior tibial and dorsalis pedis arteries. There is dampened pulsatile perfusion at the thigh, calf and foot level. There is no evidence of a pressure gradi ent between the thigh, calf, and ankle. The right ankle/brachial pressure index is moderately reduced at 0.65. LEFT LOWER EXTREMITY There are normal triphasic Doppler wavef orms present in the popliteal and ??posterior tibial ??arter ies and reduced biphasic Doppler waveforms present in the common femoral and dorsalis pedis arteries. There is normal pulsatile perfusion at t he thigh, calf and foot level. There is no evidence of a pressure gradi ent between the thigh, calf, and ankle. The left ankle/brachial pressure index i s mildly reduced at 0.87. TREADMILL STRESS TEST The patient was walked on the treadmill for 2 minutes, during which she complained of right leg weakness. The post exercise right ankle/brachial i ndex dropped severely to 0.21. The post exercise left ankle/brachial in dex dropped moderately to 0.70. FINAL Procedure Note Johnny Rodriguez MD - 11/26/2016Formatt ing of this note might be different from the original. Indication: Claudication A Doppler examination with segmental pr essures/PVRs and exercise testing was performed on both lower extr emities. RIGHT LOWER EXTREMITY There are reduced biphasic Doppler wavef orms present in the common femoral, popliteal, posterior tibial and dorsalis pedis arteries. There is dampened pulsatile perfusion at the thigh, calf and foot level. There is no evidence of a pressure gradi ent between the thigh, calf, and ankle. The right ankle/brachial pressure index is moderately reduced at 0.65. LEFT LOWER EXTREMITY There are normal triphasic Doppler wavef orms present in the popliteal and posterior tibial arteries and reduced biphasic Doppler waveforms present in the common femoral and dorsalis pedis arteries. There is normal pulsatile perfusion at t he thigh, calf and foot level. There is no evidence of a pressure gradi ent between the thigh, calf, and ankle. The left ankle/brachial pressure index i s mildly reduced at 0.87. TREADMILL STRESS TEST The patient was walked on the treadmill for 2 minutes, during which she complained of right leg weakness. The post exercise right ankle/brachial i ndex dropped severely to 0.21. The post exercise left ankle/brachial in dex dropped moderately to 0.70. FINAL IMPRESSION Abnormal resting and exercise physiologi c study, suggestive of severe right lower extremity aortoiliac inflow disease and moderate left lower extremity aortoiliac inflow diseas e. Recommend follow-up with MRA or Angiogra phy for further evaluation. Dictating JOHNNY FAIR MD Judy Sorensen MD RAD VASCULAR US documented in this encounter Visit Diagnoses Not on filedocumented in this encounter Care Teams Bonding Machine Operator Relationship Specialty Start Date End Date Unassigned, Provider PCP - General 08/25/00 12/17/[address] [place] [id number] documented as of this encounter
--- OUTSIDE RECORDS SUMMARY | 2022-04-27 03:00 | XMS_ITS | Encounter Summary ---
:1940 Author Organization [employer] Address [address] [place] [address] Care Team Providers Name Role Phone Judy Sorensen MD Primary Care Provider Encounter Details Date Type Department Care Team Description 08/15/2006 [facility] Carlee Feldman MD [facility] [address] [place] [address] [place] [address] [phone] Social History Tobacco Use Types Packs/Day Years Used Date Smoking Tobacco: Never Assessed Sex Assigned at Date Recorded Not on file documented as of this encounter Progress Notes Carlee Gracia MD - 08/15/2006 12:01 AM CST Progress Notes signed by Carlee Gracia MD at 08/17/06 1103 Author: Carlee Gracia MD Service: (none) Author Type: Physician Filed: 01/07/11 1524 Note Time: 08/15/06 0001 Status: Signed Sliver Machine Operator: Carlee Gracia MD (Physician) NAME: SHU OLIVA MR#: [id number] ACCT: [id number] VISIT: [id number] DICTATING CLINICIAN: CARLEE GRACIA MD JOB: [id number] LOC: 3588 CLINIC PROGRESS NOTE DATE OF VISIT: 08/15/2006 SUBJECTIVE: Reason for clinic visit is patient who has severe aortobiiliac disease and is here for follow-up. Patient had a dobutamine stress echo today, which was normal. I have recommended the patient have an aortobifemoral bypass. This will be done in September of the upcoming year. She wanted to wait until after the holidays, which I thought was reasonable. I have discussed with the patient the risks, benefits and details of the procedure, including the risk of bleeding, infection, myocardial infarction, renal insufficiency, distal embolization, colonic ischemia. Patient is aware of the risks, benefits and details, would like to proceed with surgery accordingly. We will schedule her for surgery on 09/27. She is also aware of the recovery period, which I told her was six to eight weeks. OBJECTIVE: ASSESSMENT: PLAN: JMM:[id number] C: 08/15/06 14:33 DOCUMENT: [id number] ATRIC PHYSIATRIST documented in this encounter Plan of Treatment Not on filedocumented as of this encounter Visit Diagnoses Not on filedocumented in this encounter Care Teams Ibm Mainframe Systems Programmer Relationship Specialty Start Date End Date Judy Sorensen MD PCP - General 12/18/10 05/02/18 [address] [place] [address] documented as of this encounter
--- OUTSIDE RECORDS SUMMARY | 2022-04-27 03:00 | XMS_ITS | Encounter Summary ---
:1940 Author Organization [employer] Address [address] [address] Care Team Providers Name Role Phone Judy Sorensen MD Primary Care Provider Encounter Details Date Type Department Care Team Description 12/02/2005 Office Visit [facility] Gwen Sorensen MD [address] [address] [place] [address] [phone] Social History Tobacco Use Types Packs/Day Years Used Date Smoking Tobacco: Never Assessed Sex Assigned at Date Recorded Not on file documented as of this encounter Last Filed Vital Signs Vital Sign Reading Time Taken Comments Blood Pressure 160/68 12/02/2005 2:07 PM BUILDING COORDINATOR Pulse 80 12/02/2005 2:07 PM BUILDING COORDINATOR Temperature - - Respiratory Rate - - Oxygen Saturation - - Inhaled Oxygen Concentration - - Weight 60.8 kg (133 lb 15.9 oz) 12/02/2005 2:07 PM BUILDING COORDINATOR C: 60.8kg Height - - Body Mass Index - - documented in this encounter Progress Notes Judy Larsen MD - 12/02/2005 12:01 AM CST Progress Notes signed by Judy Larsen MD at 12/06/055 Author: Judy Larsen MD Service: (none) Author Type: Physician Filed: 01/07/11 1019 Note Time: 12/02/05 0001 Status: Signed Sandblaster Paint Sprayer: Judy Larsen MD (Physician) NAME: SHU OLIVA MR: [id number] ACCT: [id number] VISIT: [id number] DICTATING CLINICIAN: JUDY LARSEN MD JOB: [id number] CLINIC PROGRESS NOTE DATE OF VISIT: 12/02/2005 SUBJECTIVE: : 1940. A 64-year-old smoker, with a past history of angiogram showing moderate degree of nonobstructive plaque, single vessel disease, comes in for followup of hypertension and refill of her current medications. She takes atenolol and Lipitor per [facility]. See [facility] outpatient med list. Continues to smoke, would like to quit but has not been able to. States she goes as much as three days. Not interested in initiating the quit plan at this point and does not wish medication management. She states she had a cigarette just prior to walking in and feels that that is why her blood pressure is a little elevated today. She has had a scaly patch on her face, left forward head, that peels intermittently. Has not really changed in size but has been present for about six to nine months. OBJECTIVE: VS: BP1: 160/68. BP2: 150/78. P: 80 and regular. Wt: 134. We were planning to repeat her blood pressure by the nurse after her exam, however, she left before the nurse was able to do so. Heart sounds are normal. LUNGS: Clear. There is extensive sun damage to the skin. There is a 3 x 4-mm, scaly, pink patch with the superficial keratin layer gone. Does not appear quite typical of a seborrheic keratosis, more of an actinic keratosis. This was treated with cryotherapy, freeze-thaw cycle x2, after patient consent. ASSESSMENT: Hypertension. Hyperlipidemia. Tobacco abuse. History of single-vessel, nonocclusive coronary artery disease. PLAN: Tobacco abuse. Offer quit plan, offer medication management when patient is ready to set a quit date. Continue atenolol 25 mg daily. She is asked to return for blood pressure review when she has not just had a cigarette. Continue Lipitor 60 mg daily. Needs a followup cholesterol fractionation. Recommend aspirin once daily. Continue p.r.n. ranitidine. She has had prior claudication-type symptoms, but has had a normal ankle-brachial index. 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 Suspect spinal claudication as this has been very stable the last several years. [facility]:[id number] C: 12/03/05 13:09 DOCUMENT: [id number] DING COORDINATOR documented in this encounter Plan of Treatment Not on filedocumented as of this encounter Visit Diagnoses Not on filedocumented in this encounter Care Teams Adult Caregiver Relationship Specialty Start Date End Date Judy Sorensen MD PCP - General 12/18/10 05/02/18 [address] [place] [address] documented as of this encounter
--- OUTSIDE RECORDS SUMMARY | 2022-04-27 03:00 | XMS_ITS | Encounter Summary ---
:1940 Author Organization [employer] Address [address] [place] [address] Care Team Providers Name Role Phone Judy Sorensen MD Primary Care Provider Encounter Details Date Type Department Care Team Description 07/28/2006 PN Conversion Only [place] [facility] Jeremy Mckinley, [address] [place] [address] [address] [place] [address] (Wo rk) Social History Tobacco Use Types Packs/Day Years Used Date Smoking Tobacco: Never Assessed Sex Assigned at Date Recorded Not on file documented as of this encounter Plan of Treatment Not on filedocumented as of this encounter Procedures Procedure Name Priority Date/Time Associated Comments Diagnosis ELECTROLYTES (NA, K, Routine 07/28/2006 8:19 AM R esults for this CL, BICARB) INTER COM SERVICER procedure are i n the results section. CREATININE / GFR Routine 07/28/2006 8:19 AM Resul ts for this INTER COM SERVICER procedure are i n the results section. COMPLETE BLOOD Routine 07/28/2006 8:19 AM Results for this COUNT-W/DIFF INTER COM SERVICER procedure are i n the results section. APTT (ACTIVATED PARTIAL Routine 07/28/2006 8:19 AM Results for this THROMBOPLASTIN TIME INTER COM SERVICER procedur e are in the results section. BUN Routine 07/28/2006 8:19 AM Results f or this INTER COM SERVICER procedure are i n the results section. documented in this encounter Results (ABNORMAL) Complete Blood Count-W/Diff (07/28/2006 8:19 AM INTER COM SERVICER) Patholo gist Method Time Signature White Blood Cell 8.1 3.8 - 11.0 HP CONVERSIO N Count K/cmm Red Blood Cell 4.70 3.70 - HP CONVERSION Count 5.20 m/cmm Hemoglobin 13.8 11.8 - HP CONVERSION 15.5 gm/dL Hematocrit 41.9 35.0 - HP CONVERSION 46.0 % Mean Corpuscular 89.0 80.0 - HP CONVERSION Volume 100.0 fl Mean Corpuscular 29.4 27.0 - HP CONVERSION Hemoglobin 34.0 pg Mean Corpuscular 33.0 32.0 - HP CONVERSION Hemoglobin Conc 36.5 gm/dL [place] RDW 13.2 11.0 - HP CONVERSION 15.0 % Platelet Count 285 140 - 450 HP CONVERSION k/cmm Differential Auto-Dif No normal HP CONVERSION Verify range Neutrophils 4.5 2.0 - 7.5 HP CONVERSION Absolute Count K/cmm Neutrophil 56.7 50.0 - HP CONVERSION 75.0 % Lymphocyte % 35.5 20.0 - HP CONVERSION 40.0 % Monocyte 4.8 (L) 5.0 - 14.0 HP CONVERSION % Eosinophil 2.1 0.0 - 6.0 HP CONVERSION % Basophil % 0.9 0.0 - 2.0 HP CONVERSION % Specimen (Source) Anatomical Collection Method Collection Time Re ceived Time Location / / Volume Laterality 07/28/2006 8:19 AM INTER COM SERVICER Jeremy Mckinley MD LAB_1 Performing Organization Address City/State/ZIP Code Phon e Number HP CONVERSION APTT (Activated Partial Thromboplastin Time) (07/28/2006 8:19 AM INTER COM SERVICER) [facility] Method Time Signature Partial 26.1 25.0 - HP CONVERSION Thromboplastin Time 38.0 sec Comment: New aPTT reagent in use effective 10/21/05 . See [facility] for current heparin dosage adjustments (new therapeutic rang e for full unfractionated heparin anticoagulation 65 ??to 95 seconds). Specimen (Source) Anatomical Collection Method Collection Time Re ceived Time Location / / Volume Laterality 07/28/2006 8:19 AM INTER COM SERVICER Jeremy Mckinley MD LAB_1 Performing Organization Address City/State/ZIP Code Phon e Number HP CONVERSION BUN (07/28/2006 8:19 AM INTER COM SERVICER) athologist Signature Blood Urea 15 5 - 26 HP CONVERSION Nitrogen mg/dL Specimen (Source) Anatomical Collection Method Collection Time Re ceived Time Location / / Volume Laterality 07/28/2006 8:19 AM INTER COM SERVICER Jeremy Mckinley MD LAB_1 Performing Organization Address City/State/ZIP Code Phon e Number HP CONVERSION Creatinine / GFR (07/28/2006 8:19 AM INTER COM SERVICER) athologist Signature Creatinine 0.7 0.5 - 1.5 HP CONVERSION Serum mg/dL Specimen (Source) Anatomical Collection Method Collection Time Re ceived Time Location / / Volume Laterality 07/28/2006 8:19 AM INTER COM SERVICER Jeremy Mckinley MD LAB_1 Performing Organization Address City/State/ZIP Code Phon e Number HP CONVERSION Electrolytes (NA, K, CL, Bicarb) (07/28/2006 8:19 AM INTER COM SERVICER) athologist Signature Sodium 140 137 - 147 HP CONVERSION meq/L Potassium 4.3 3.5 - 5.2 HP CONVERSION meq/L Chloride 102 98 - 110 HP CONVERSION meq/L Bicarbonate 30 23 - 33 HP CONVERSION mmol/L Specimen (Source) Anatomical Collection Method Collection Time Re ceived Time Location / / Volume Laterality 07/28/2006 8:19 AM INTER COM SERVICER Jeremy Mckinley MD LAB_1 Performing Organization Address City/[facility] Phon e Number HP CONVERSION documented in this encounter Visit Diagnoses Not on filedocumented in this encounter Care Teams Management Accountant Relationship Specialty Start Date End Date Judy Sorensen MD PCP - General 12/18/10 05/02/18 [address] [place] [address] documented as of this encounter
--- OUTSIDE RECORDS SUMMARY | 2022-04-27 03:00 | XMS_ITS | Encounter Summary ---
:1940 Author Organization [employer] Address [address] [place] [address] Care Team Providers Name Role Phone Unassigned, Provider Primary Care Provider Unavailable Encounter Details Date Type Department Care Team Description 08/15/2006 Hospital Encounter RELIGION CONVERSION Jean Claude Mckinley MD [address] [place] [address] (Wo rk) Social History Tobacco Use Types [...] Tobacco Cessation UNKNOWN MEDICATION Indications: PN: 0 08/01/2006 03/10/2010 [...] Procedure Name Priority Date/Time Associated Comments Diagnosis DOBUTAMINE STRESS Routine 08/15/2006 12:08 Result s for this ECHOCARDIOGRAM PM CARTON PACKAGING MACHINE OPERATOR procedure are in the results section. documented in this encounter Results Dobutamine Stress Echocardiogram (08/15/2006 12:08 PM CARTON PACKAGING MACHINE OPERATOR) Specimen (Source) Anatomical Collection Method Collection Time Re ceived Time Location / / Volume Laterality 08/15/2006 12:08 PM CARTON PACKAGING MACHINE OPERATOR Narrative HP CONVERSION - 08/15/2006 12:08 PM CARTON PACKAGING MACHINE OPERATOR This study included two-dimensional echo, pulse, continuous wave and color Doppler. INDICATION FOR EXAM: ??Peripheral vascul ar disease DIAGNOSIS: ??Peripheral vascular disease (443.9) DEFINITY: 1.0 cc HEMODYNAMICS: Resting heart rate: 80 ? Resting blood pressure: 157/63 Maximum predicted heart rate: 155 ? Maximum blood pressure: 174/56 85% Max predicted heart rate: 132 ? Rate pressure product: ??24,186 Maximum heart rate achieved: ??139 ?Infusion duration: 5:46 % Maximum heart rate achieved: 90% HEIGHT: 5'1 ?WEIGHT: 136 ? BSA: 1.6 m^2 ?TECH: KA/TV MEDICATIONS: ??Atenolol held for greater than 48 hours. PROTOCOL: ??Dobutamine ischemia only (Se e below). Dobutamine was infused for 3:00 at 10 ug /kg/min and 2:46 at 20 ug/kg/min. ??Atropine 0 mg IV given. SYMPTOMS: ??None; No angina elicited. ?? Protocol completed. ??Predicted heart rate achieved. ECG, REST: ??Normal ST-T segments. ECG, STRESS: ??No significant ST segment shifts noted. ECHO, REST: ??Chamber size, wall motion, and wall thickness are normal. No significant valvular abnormalities ar e seen. ??The visually estimated left ventricular ejection frac tion is 60%. ??Sclerotic aortic valve without salvador evidence of stenosis. ECHO, STRESS: ??All segments display johanne ropriate hyperkinesis; ejection fraction increases appropriately. CONCLUSION: ??1. ??Normal dobutamine ech ocardiogram with adequate ? heart rate. ? 2. ??Image quality wa s fair. ? 3. ??No evidence for inducible ischemia. PRIMARY MD: ??Dr. Judy Larsen Jeremy Mckinley MD PN ECHO ORDERABLES Performing Organization Address City/State/ZIP Code Phon e Number HP CONVERSION documented in this encounter Visit Diagnoses Not on filedocumented in this encounter Care Teams Waistband Setter Relationship Specialty Start Date End Date Unassigned, Provider PCP - General 08/25/00 12/17/[address] [place] [id number] documented as of this encounter
--- OUTSIDE RECORDS SUMMARY | 2022-04-27 03:00 | XMS_ITS | Encounter Summary ---
:1940 Author Organization [employer] Address [address] [place] [address] Care Team Providers Name Role Phone Judy Sorensen MD Primary Care Provider Encounter Details Date Type Department Care Team Description 06/27/2006 Office Visit [facility] Carlee Feldman MD [facility] [address] [place] [address] [place] [address] [phone] Social History Tobacco Use Types Packs/Day Years Used Date Smoking Tobacco: Never Assessed Sex Assigned at Date Recorded Not on file documented as of this encounter Last Filed Vital Signs Vital Sign Reading Time Taken Comments Blood Pressure 154/72 06/27/2006 1:00 PM CDT Pulse 60 06/27/2006 1:00 PM CDT Temperature - - Respiratory Rate - - Oxygen Saturation - - Inhaled Oxygen Concentration - - Weight - - Height - - Body Mass Index - - documented in this encounter Progress Notes Carlee Gracia MD - 06/27/2006 12:01 AM CDT Progress Notes signed by Carlee Gracia MD at 06/30/06 1036 Author: Carlee Gracia MD Service: (none) Author Type: Physician Filed: 01/07/11 1427 Note Time: 06/27/06 0001 Status: Signed Dry Cleaner Hand: Carlee Gracia MD (Physician) NAME: SHU OLIVA MR: [id number] ACCT: [id number] VISIT: [id number] DICTATING CLINICIAN: CARLEE GRACIA MD JOB: [id number] LOC: 3588 CLINIC PROGRESS NOTE DATE OF VISIT: 06/27/2006 SUBJECTIVE: I was asked to see Ms. Oliva by Dr. Judy Larsen for symptomatic claudication of right lower extremity. Please note I reviewed the patient's chart. Ms. Oliva is a very nice 65-year-old female who has had some aching in her right leg that starts at her right hip and goes down to her right calf. She says that she has noted it about 2 or 3 years ago; however, now it occurs approximately 2 to 3 blocks. She says that when she stops walking the pain goes away within the first 30 seconds. Walking up hills and up stairs makes it worse. ? walking does make it better. She has had no fevers, weaknesses, or chills. She describes the pain as a crampy pain in the leg and the thigh and the calf as well as a tightness. REVIEW OF SYSTEMS: No history of diabetes. She does have a remote history of coronary artery disease with a coronary angiogram done approximately 6 to 7 years ago. No recent history of coronary artery disease to speak of. Remainder of complete review of systems negative. MEDICATIONS: Atenolol, Lipitor, and Zyban, as well as ranitidine. PAST MEDICAL HISTORY: Significant for hypertension and hyperlipidemia. Both are treated and well controlled with medications. She does have a [id number] history of smoking. OBJECTIVE: VS: BP: 130/70. P: 76. R: 12. She is a well-developed female. She is in no acute distress. She is oriented times 3. Mood and affect are appropriate. Patient has no cervical bruits. Thyroid is not enlarged, nontender. LUNGS: Clear to auscultation. Not using accessory muscles to breathe. HEART: S1, S2, regular rate and rhythm, no gallops, murmurs, or rubs. She has got a slightly decreased right femoral pulse and no palpable pulses in the right foot. She has got a normal left femoral pulse and a palpable dorsalis pedis pulse in her left foot. No open sores noted. She has noninvasive arterial studies which indicates she has an CECY of 0.65 on the right at rest and normal on the left at rest; however, when she walks on the treadmill her CECY drops to 0.21 on the right. On the left it drops to 0.70. ASSESSMENT: 1. Patient with pain in right and left lower extremities and noninvasive arterial studies are consistent with short distance claudication. I would like to start off by getting an MRA of the patient's aorta and iliac system since it appears that she could have some possible inflow ? especially on the right. Based on the result of her MRA, I may recommend getting a formal angiogram for possible angioplasty and stenting or more detailed pictures of her anatomy. I explained the plan to the patient and she understands. I will contact her after I review her MRA. 2. Patient did have a duplex ultrasound which shows, again, she has got a 50 to 69% right internal carotid artery stenosis. Her velocities are not very high and I think we just need to monitor this with duplex ultrasound every 6 months. 3. Tobacco abuse. Patient is presently trying to quit and has been smoking for a long time and she is actively working on trying to quit. PLAN: See Assessment. CC: JUDY LARSEN MD JMM:[id number] C: 06/28/06 15:27 DOCUMENT: [id number] documented in this encounter Plan of Treatment Not on filedocumented as of this encounter Visit Diagnoses Not on filedocumented in this encounter Care Teams Custom Applicator Relationship Specialty Start Date End Date Judy Sorensen MD PCP - General 12/18/10 05/02/18 [address] [place] [address] documented as of this encounter
--- OUTSIDE RECORDS SUMMARY | 2022-04-27 03:00 | XMS_ITS | Encounter Summary ---
:1940 Author Organization [employer] Address [address] [place] [address] Care Team Providers Name Role Phone Judy Sorensne MD Primary Care Provider Encounter Details Date Type Department Care Team Description 07/20/2005 PN Conversion Only [facility] [address] [place] [address] Social History Tobacco Use Types Packs/Day Years Used Date Smoking Tobacco: Never Assessed Sex Assigned at Date Recorded Not on file documented as of this encounter Plan of Treatment Not on filedocumented as of this encounter Procedures Procedure Name Priority Date/Time Associated Diagnosis Comme nts MM MAMMOGRAM Routine 07/20/2005 8:43 AM Results f or this SCREENING W CAD PATHOLOGY SUPERVISOR procedure ar e in the results section. documented in this encounter Results MM Mammogram Screening W CAD (07/20/2005 8:43 AM PATHOLOGY SUPERVISOR) Anatomical Region Laterality Modality Breast Bilateral Mammography Specimen (Source) Anatomical Location Collection Method / Collectio n Time Received Time / Laterality Volume Impressions 07/25/2005 11:43 AM PATHOLOGY SUPERVISOR : BILATERAL BREASTS - Category 1 Negative, no evidence of malignancy. Nor mal interval follow-up is recommended in 12 months. OVERALL ASSESSMENT - NEGATIVE END OF IMPRESSION Dictating RAFI LEVI RADIOLOGIST Narrative 07/25/2005 11:43 AM PATHOLOGY SUPERVISOR Comparison is made to films from 07/12/2004 (bilateral). Bilateral Breast Findings: The breasts are heterogeneously dense. T his may lower the sensitivity of mammography. ??No significant masses, calcifications or other abnormalities are seen. Procedure Note Rafi Amezcua MD - 11/26/2016 Comparison is made to films from 004 (bilateral). Bilateral Breast Findings: The breasts are heterogeneously dense. T his may lower the sensitivity of mammography. No significant masses, c alcifications or other abnormalities are seen. IMPRESSION : BILATERAL BREASTS - Category 1 Negative, no evidence of malignancy. Nor mal interval follow-up is recommended in 12 months. OVERALL ASSESSMENT - NEGATIVE END OF IMPRESSION Dictating RAFI LEVI RADIOLOGIST Judy Sorensen MD RAD [facility] documented in this encounter Visit Diagnoses Not on filedocumented in this encounter Care Teams Sales Representative [employer] Service Relationship Specialty Start Date End Date Judy Sorensen MD PCP - General 12/18/10 05/02/18 [address] [employer] [place] [id number] documented as of this encounter
--- OUTSIDE RECORDS SUMMARY | 2022-04-27 03:00 | XMS_ITS | Encounter Summary ---
:1940 Author Organization [employer] Address [address] [place] [address] Care Team Providers Name Role Phone Unassigned, Provider Primary Care Provider Unavailable Encounter Details Date Type Department Care Team Description 07/04/2006 Hospital Encounter [facility] CONVERSION Jean Claude Mckinley MD [address] [place] [address] (Wo rk) Social History Tobacco Use Types [...] Tobacco Cessation UNKNOWN MEDICATION Indications: PN: 0 06/27/2006 03/10/2010 UNKNOWN MEDICATION Indications: PN: 0 05/16/2006 03/10/2010 UNKNOWN MEDICATION Indications: PN: 0 12/02/2005 03/10/2010 UNKNOWN MEDICATION Indications: PN: 0 06/25/2005 03/10/2010 documented as of this encounter Plan of Treatment Not on filedocumented as of this encounter Procedures Procedure Name Priority Date/Time Associated Diagnosis Comme nts HMR ANGIO ABD W/WO Routine 07/04/2006 1:24 PM Res ults for this IV CONT CDT procedure are i n the results section. HMR ANGIO LOWER Routine 07/04/2006 1:23 PM Result s for this EXTREMITY LT W/WO CDT procedure are in IV CONT the results section. HMR ANGIO LOWER Routine 07/04/2006 1:19 PM Result s for this EXTREMITY RT W/WO CDT procedure are in IV CONT the results section. documented in this encounter Results HMR Angio Abd W/WO IV Cont (07/04/2006 1:24 PM CDT) Anatomical Region Laterality Modality Abdomen Other Specimen (Source) Anatomical Location Collection Method / Collectio n Time Received Time / Laterality Volume Impressions 07/04/2006 1:24 PM CDT : ??Aortoiliac disease as involving the common iliac arteries with the right significantly wo rse than the left. 259218/pb Dictating KEVIN VALVERDE Radiologist Narrative 07/04/2006 1:24 PM CDT EXAM: ??MRA abdomen and bilateral lower extremities. HISTORY: ??Bilateral claudication with d ecreased common femoral artery waveforms. TECHNICAL: ??Multiplanar multisequence i maging obtained through the abdomen and bilateral lower extremities after the uneventful administration of 40 mL of intravenous g adolinium. REPORT: MRI: ??Left kidney is 10.3 cm in length. ??Right kidney is 9.9 cm in length. ??No evidence of renal mass. ABDOMINAL MRA: ??The abdominal aorta is normal in caliber and tapers slightly below the level of the renal ar teries where there is slight ectasia. ??Maximum diameter of the infra renal aorta measures 1.7 cm. There is a moderate stenosis at the orig in of the right renal artery. Left renal artery appears patent. ??Orig ins of the SMA and celiac appear patent. ??There is a mild stenosi s of the proximal celiac artery. RIGHT LOWER EXTREMITY MRA: ??There is mo derate diffuse stenosis of the entire length of the right common iliac artery which is somewhat more pronounced than the distal iliac artery. ??The external iliac artery is diffusely small. ??Internal iliac art hieu is patent but diseased. The bilateral common femoral, superficia l femoral, popliteal, profunda femoral arteries are patent. ?? There is 3-vessel runoff to the right foot. ??The posterior tibial a rtery demonstrates some diffuse atherosclerotic disease but is p atent. ??There is a focal stenosis of the dorsalis pedis artery. LEFT LOWER EXTREMITY: ??There is mild st enosis of the proximal common iliac artery. ??Remainder of the common iliac and internal iliac arteries are patent. ??External iliac ar roderick is small in caliber but patent. ??Common femoral and profunda fe moral arteries are patent. Superficial femoral artery is widely pat ent. ??There is a high origin of the anterior tibial artery. ??There i s patent 3-vessel runoff to the foot, however the posterior tibial a rtery does demonstrate some diffuse atherosclerotic disease distally and there is a short segment moderate focal stenosis of the mid to di stal anterior tibial artery. Procedure Note Kevin Henriquez MD - 11/26/2016For matting of this note might be different from the original. EXAM: MRA abdomen and bilateral lower ex tremities. HISTORY: Bilateral claudication with dec reased common femoral artery waveforms. TECHNICAL: Multiplanar multisequence candelaria ging obtained through the abdomen and bilateral lower extremities after the uneventful administration of 40 mL of intravenous g adolinium. REPORT: MRI: Left kidney is 10.3 cm in length. R ight kidney is 9.9 cm in length. No evidence of renal mass. ABDOMINAL MRA: The abdominal aorta is no rmal in caliber and tapers slightly below the level of the renal ar teries where there is slight ectasia. Maximum diameter of the infrare nal aorta measures 1.7 cm. There is a moderate stenosis at the orig in of the right renal artery. Left renal artery appears patent. Origin s of the SMA and celiac appear patent. There is a mild stenosis of the proximal celiac artery. RIGHT LOWER EXTREMITY MRA: There is mode rate diffuse stenosis of the entire length of the right common iliac artery which is somewhat more pronounced than the distal iliac artery. The external iliac artery is diffusely small. Internal iliac arter y is patent but diseased. The bilateral common femoral, superficia l femoral, popliteal, profunda femoral arteries are patent. Th ere is 3-vessel runoff to the right foot. The posterior tibial art hieu demonstrates some diffuse atherosclerotic disease but is p atent. There is a focal stenosis of the dorsalis pedis artery. LEFT LOWER EXTREMITY: There is mild sten osis of the proximal common iliac artery. Remainder of the common il iac and internal iliac arteries are patent. External iliac dain ry is small in caliber but patent. Common femoral and profunda femo ral arteries are patent. Superficial femoral artery is widely pat ent. There is a high origin of the anterior tibial artery. There is patent 3-vessel runoff to the foot, however the posterior tibial a rtery does demonstrate some diffuse atherosclerotic disease distally and there is a short segment moderate focal stenosis of the mid to di stal anterior tibial artery. IMPRESSION : Aortoiliac disease as involving the co mmon iliac arteries with the right significantly wo rse than the left. [id number]/pb Dictating KEVIN VALVERDE Radiologist Jeremy Mckinley MD RAD MRI HMR Angio Lower Extremity Lt W/WO IV Cont (07/04/2006 1:23 PM CDT) Anatomical Region Laterality Modality Lower Extremity Other Specimen (Source) Anatomical Location Collection Method / Collectio n Time Received Time / Laterality Volume Impressions 07/04/2006 1:23 PM CDT : ??Aortoiliac disease as involving the common iliac arteries with the right significantly wo rse than the left. 807428/pb Dictating KEVIN VALVERDE Radiologist Narrative 07/04/2006 1:23 PM CDT EXAM: ??MRA abdomen and bilateral lower extremities. HISTORY: ??Bilateral claudication with d ecreased common femoral artery waveforms. TECHNICAL: ??Multiplanar multisequence i maging obtained through the abdomen and bilateral lower extremities after the uneventful administration of 40 mL of intravenous g adolinium. REPORT: MRI: ??Left kidney is 10.3 cm in length. ??Right kidney is 9.9 cm in length. ??No evidence of renal mass. ABDOMINAL MRA: ??The abdominal aorta is normal in caliber and tapers slightly below the level of the renal ar teries where there is slight ectasia. ??Maximum diameter of the infra renal aorta measures 1.7 cm. There is a moderate stenosis at the orig in of the right renal artery. Left renal artery appears patent. ??Orig ins of the SMA and celiac appear patent. ??There is a mild stenosi s of the proximal celiac artery. RIGHT LOWER EXTREMITY MRA: ??There is mo derate diffuse stenosis of the entire length of the right common iliac artery which is somewhat more pronounced than the distal iliac artery. ??The external iliac artery is diffusely small. ??Internal iliac art hieu is patent but diseased. The bilateral common femoral, superficia l femoral, popliteal, profunda femoral arteries are patent. ?? There is 3-vessel runoff to the right foot. ??The posterior tibial a rtery demonstrates some diffuse atherosclerotic disease but is p atent. ??There is a focal stenosis of the dorsalis pedis artery. LEFT LOWER EXTREMITY: ??There is mild st enosis of the proximal common iliac artery. ??Remainder of the common iliac and internal iliac arteries are patent. ??External iliac ar roderick is small in caliber but patent. ??Common femoral and profunda fe moral arteries are patent. Superficial femoral artery is widely pat ent. ??There is a high origin of the anterior tibial artery. ??There i s patent 3-vessel runoff to the foot, however the posterior tibial a rtery does demonstrate some diffuse atherosclerotic disease distally and there is a short segment moderate focal stenosis of the mid to di stal anterior tibial artery. Procedure Note Kevin Henriquez MD - 11/26/2016For matting of this note might be different from the original. EXAM: MRA abdomen and bilateral lower ex tremities. HISTORY: Bilateral claudication with dec reased common femoral artery waveforms. TECHNICAL: Multiplanar multisequence candelaria ging obtained through the abdomen and bilateral lower extremities after the uneventful administration of 40 mL of intravenous g adolinium. REPORT: MRI: Left kidney is 10.3 cm in length. R ight kidney is 9.9 cm in length. No evidence of renal mass. ABDOMINAL MRA: The abdominal aorta is no rmal in caliber and tapers slightly below the level of the renal ar teries where there is slight ectasia. Maximum diameter of the infrare nal aorta measures 1.7 cm. There is a moderate stenosis at the orig in of the right renal artery. Left renal artery appears patent. Origin s of the SMA and celiac appear patent. There is a mild stenosis of the proximal celiac artery. RIGHT LOWER EXTREMITY MRA: There is mode rate diffuse stenosis of the entire length of the right common iliac artery which is somewhat more pronounced than the distal iliac artery. The external iliac artery is diffusely small. Internal iliac arter y is patent but diseased. The bilateral common femoral, superficia l femoral, popliteal, profunda femoral arteries are patent. Th ere is 3-vessel runoff to the right foot. The posterior tibial art hieu demonstrates some diffuse atherosclerotic disease but is p atent. There is a focal stenosis of the dorsalis pedis artery. LEFT LOWER EXTREMITY: There is mild sten osis of the proximal common iliac artery. Remainder of the common il iac and internal iliac arteries are patent. External iliac dain ry is small in caliber but patent. Common femoral and profunda femo ral arteries are patent. Superficial femoral artery is widely pat ent. There is a high origin of the anterior tibial artery. There is patent 3-vessel runoff to the foot, however the posterior tibial a rtery does demonstrate some diffuse atherosclerotic disease distally and there is a short segment moderate focal stenosis of the mid to di stal anterior tibial artery. IMPRESSION : Aortoiliac disease as involving the co mmon iliac arteries with the right significantly wo rse than the left. 408734/pb Dictating KEVIN VALVERDE Radiologist Jeremy Mckinley MD RAD MRI HMR Angio Lower Extremity Rt W/WO IV Cont (07/04/2006 1:19 PM CDT) Anatomical Region Laterality Modality Lower Extremity Other Specimen (Source) Anatomical Location Collection Method / Collectio n Time Received Time / Laterality Volume Impressions 07/04/2006 1:19 PM CDT : ??Aortoiliac disease as involving the common iliac arteries with the right significantly wo rse than the left. [id number]/pb Dictating KEVIN VALVERDE Radiologist Narrative 07/04/2006 1:19 PM CDT EXAM: ??MRA abdomen and bilateral lower extremities. HISTORY: ??Bilateral claudication with d ecreased common femoral artery waveforms. TECHNICAL: ??Multiplanar multisequence i maging obtained through the abdomen and bilateral lower extremities after the uneventful administration of 40 mL of intravenous g adolinium. REPORT: MRI: ??Left kidney is 10.3 cm in length. ??Right kidney is 9.9 cm in length. ??No evidence of renal mass. ABDOMINAL MRA: ??The abdominal aorta is normal in caliber and tapers slightly below the level of the renal ar teries where there is slight ectasia. ??Maximum diameter of the infra renal aorta measures 1.7 cm. There is a moderate stenosis at the orig in of the right renal artery. Left renal artery appears patent. ??Orig ins of the SMA and celiac appear patent. ??There is a mild stenosi s of the proximal celiac artery. RIGHT LOWER EXTREMITY MRA: ??There is mo derate diffuse stenosis of the entire length of the right common iliac artery which is somewhat more pronounced than the distal iliac artery. ??The external iliac artery is diffusely small. ??Internal iliac art hieu is patent but diseased. The bilateral common femoral, superficia l femoral, popliteal, profunda femoral arteries are patent. ?? There is 3-vessel runoff to the right foot. ??The posterior tibial a rtery demonstrates some diffuse atherosclerotic disease but is p atent. ??There is a focal stenosis of the dorsalis pedis artery. LEFT LOWER EXTREMITY: ??There is mild st enosis of the proximal common iliac artery. ??Remainder of the common iliac and internal iliac arteries are patent. ??External iliac ar roderick is small in caliber but patent. ??Common femoral and profunda fe moral arteries are patent. Superficial femoral artery is widely pat ent. ??There is a high origin of the anterior tibial artery. ??There i s patent 3-vessel runoff to the foot, however the posterior tibial a rtery does demonstrate some diffuse atherosclerotic disease distally and there is a short segment moderate focal stenosis of the mid to di stal anterior tibial artery. Procedure Note Kevin Henriquez MD - 11/26/2016For matting of this note might be different from the original. EXAM: MRA abdomen and bilateral lower ex tremities. HISTORY: Bilateral claudication with dec reased common femoral artery waveforms. TECHNICAL: Multiplanar multisequence candelaria ging obtained through the abdomen and bilateral lower extremities after the uneventful administration of 40 mL of intravenous g adolinium. REPORT: MRI: Left kidney is 10.3 cm in length. R ight kidney is 9.9 cm in length. No evidence of renal mass. ABDOMINAL MRA: The abdominal aorta is no rmal in caliber and tapers slightly below the level of the renal ar teries where there is slight ectasia. Maximum diameter of the infrare nal aorta measures 1.7 cm. There is a moderate stenosis at the orig in of the right renal artery. Left renal artery appears patent. Origin s of the SMA and celiac appear patent. There is a mild stenosis of the proximal celiac artery. RIGHT LOWER EXTREMITY MRA: There is mode rate diffuse stenosis of the entire length of the right common iliac artery which is somewhat more pronounced than the distal iliac artery. The external iliac artery is diffusely small. Internal iliac arter y is patent but diseased. The bilateral common femoral, superficia l femoral, popliteal, profunda femoral arteries are patent. Th ere is 3-vessel runoff to the right foot. The posterior tibial art hieu demonstrates some diffuse atherosclerotic disease but is p atent. There is a focal stenosis of the dorsalis pedis artery. LEFT LOWER EXTREMITY: There is mild sten osis of the proximal common iliac artery. Remainder of the common il iac and internal iliac arteries are patent. External iliac dain ry is small in caliber but patent. Common femoral and profunda femo ral arteries are patent. Superficial femoral artery is widely pat ent. There is a high origin of the anterior tibial artery. There is patent 3-vessel runoff to the foot, however the posterior tibial a rtery does demonstrate some diffuse atherosclerotic disease distally and there is a short segment moderate focal stenosis of the mid to di stal anterior tibial artery. IMPRESSION : Aortoiliac disease as involving the co mmon iliac arteries with the right significantly wo rse than the left. [id number]/pb Dictating KEVIN VALVERDE Radiologist Jeremy Mckinley MD RAD MRI documented in this encounter Visit Diagnoses Not on filedocumented in this encounter Care Teams Programming Internship Relationship Specialty Start Date End Date Unassigned, Provider PCP - General 08/25/00 12/17/[address] [place] [id number] documented as of this encounter
--- OUTSIDE RECORDS SUMMARY | 2022-04-27 03:00 | XMS_ITS | Encounter Summary ---
:1940 Author Organization [employer] Address [address] [place] [address] Care Team Providers Name Role Phone Judy Sorensen MD Primary Care Provider Encounter Details Date Type Department Care Team Description 06/25/2005 Office Visit [facility] Aleah Oshea PA-C [address] [place] [address] [place], [place] [address] (Wo rk) Social History Tobacco Use Types Packs/Day Years Used Date Smoking Tobacco: Never Assessed Sex Assigned at Date Recorded Not on file documented as of this encounter Last Filed Vital Signs Vital Sign Reading Time Taken Comments Blood Pressure 103/59 06/25/2005 12:17 PM CDT Pulse 75 06/25/2005 12:17 PM CDT Temperature 37.7 ??C (99.9 ??F) 06/25/2005 12:17 PM CDT C: 3 7.7 C Respiratory Rate 16 06/25/2005 12:17 PM CDT Oxygen Saturation 91% 06/25/2005 12:17 PM CDT Inhaled Oxygen Concentration - - Weight - - Height - - Body Mass Index - - documented in this encounter Progress Notes Aleah Oshea PA-C - 06/25/2005 12:01 AM CDT Progress Notes signed by Aleah Oshea PA-C at 07/07/05 0660 Author: Aleah Oshea PA-C Service: (none) Author Type: Physician Coordinate Measuring Machine Programmer Filed: 01/07/11 0703 Note Time: 06/25/05 0001 Status: Signed Oracle Architect: Aleah Oshea PA-C (Physician Coordinate Measuring Machine Programmer) NAME: SHU OLIVA MR: [id number] ACCT: [id number] VISIT: [id number] DICTATING CLINICIAN: ALEAH OSHEA PA-C JOB: [id number] CLINIC PROGRESS NOTE DATE OF VISIT: 06/25/2005 SUBJECTIVE: A 64-year-old presents to urgent care for a day and a half of cough and wheeze. Three day of URI symptoms. She is a long time smoker. She a history of hypertension and hyperlipidemia. Please see medication pad in LastWord for medications. She does feel slightly short of breath. No chest pain. She has been coughing quite a bit. No nausea, no vomiting, no diaphoresis. No urinary symptoms, no diarrhea. No ear pain or sore throat. ADR/ALLERGIES: NKDA. OBJECTIVE: VS: T: 99.9 P: 75 R: 16 Age: 64 02 sat 91% GENERAL: NAD. HEENT: Head: Normocephalic. Eyes: Sclerae white, conjunctivae pink, cornea and lenses are clear. Ears: TMs intact without erythema. Nose is patent with some clear rhinorrhea. Mouth shows post nasal drip. NECK: Supple. LUNGS: Decreased breathe sounds noted throughout with wheezes and rhonchi appreciated. Nebulizer was given with some loosening of the cough. 02 sat continued to stay around 92%. Chest x-ray was obtained and did not show any specific infiltrate. ASSESSMENT: 1. Bronchitis. 2. Long time tobacco abuse. 3. Bronchospasm. PLAN: Z-Emmett, albuterol MDI, 2 puffs q. 4 to 6 h. over the next 7 to 10 days. Prednisone 40 for 3, 20 for 3, 10 for 3, 5 for 4. Symptomatic care, plenty of fluids, return as needed if questions develop or problems persist. TJL:[id number] C: 06/25/05 19:48 DOCUMENT: [id number] documented in this encounter Plan of Treatment Not on filedocumented as of this encounter Procedures Procedure Name Priority Date/Time Associated Diagnosis Comme nts XR CHEST 2 VIEWS Routine 06/25/2005 1:14 PM Resul ts for this CDT procedure are i n the results section. documented in this encounter Results XR Chest 2 Views (06/25/2005 1:14 PM CDT) Anatomical Region Laterality Modality Chest, Lung Other Specimen (Source) Anatomical Location Collection Method / Collectio n Time Received Time / Laterality Volume Narrative 06/25/2005 1:14 PM CDT Findings: CH3 No change from 07-05-04. ??Cardiovascula r structures appear normal for age. ??No evidence of active pulmonary d isease. Dictating NARCISO NUGENT RADIOLOGIST Procedure Note Narciso Ashford - 11/26/2016Formattin g of this note might be different from the original. Findings: CH3 No change from 07-05-04. Cardiovascular structures appear normal for age. No evidence of active pulmonary dis ease. Dictating NARCISO NUGENT RADIOLOGIST Aleah Oshea PA-C RAD GD documented in this encounter Visit Diagnoses Not on filedocumented in this encounter Care Teams Air Conditioning Sheet Metal Installer Relationship Specialty Start Date End Date Judy Sorensen MD PCP - General 12/18/10 05/02/18 [address] [place] [address] documented as of this encounter
--- OUTSIDE RECORDS SUMMARY | 2022-04-27 03:00 | XMS_ITS | Encounter Summary ---
:1940 Author Organization [employer] Address [address] [place] [address] Care Team Providers Name Role Phone Judy Sorensen MD Primary Care Provider Reason for Visit Reason Comments Other Encounter Details Date Type Department Care Team Description 08/23/2005 Telephone [facility], Message Other [address] [place], [place] [id number] Social History Tobacco Use Types Packs/Day Years Used Date Smoking Tobacco: Never Assessed Sex Assigned at Date Recorded Not on file documented as of this encounter Progress Notes Center, Message - 08/23/2005 10:54 AM CST Phone Note filed by [employer] at 01/03/11 4899 Author: [employer] Service: (none) Author Type: (none) Filed: 01/03/113 Note Time: 08/23/051053 Status: Signed Appeals Analyst: Message Center Patient left voicemail. She is switching to a new pharmacy. Wants RX for Lipitor 40 mg daily, Atenolol 25 mg daily and Ranitidine 300 mg daily prn called to [employer] at [phone]. Patient would like a 90 day supply of each medication. Please call patient when this has been done. Call back phone is [phone]. Created on 23Aug2005 10:54am by YVES MANSFIELD On 23Aug2005 2:41pm JUDY GARCÍA wrote: Okay to call in the above. To have additional refills Patient also needs to have chol f, AST, (272.4) creat (401.9) done for lab follow-up. Please inform and send slip to lab. Acknowledged by JUDY GARCÍA on 2:41pm On 23Aug2005 3:15pm MARKUS CORLEY wrote: called refills to [facility] spoke to pt informed of need for labs lab slip to lab Acknowledged by MARKUS CORLEY on 3:15pm CUPID ANALYST documented in this encounter Plan of Treatment Not on filedocumented as of this encounter Visit Diagnoses Not on filedocumented in this encounter Care Teams Sprayer Hand Relationship Specialty Start Date End Date Judy Sorensen MD PCP - General 12/18/10 05/02/18 [address] [place] [address] documented as of this encounter
--- OUTSIDE RECORDS SUMMARY | 2022-04-27 03:00 | XMS_ITS | Encounter Summary ---
:1940 Author Organization [facility] [facility] Address [address] [address] Care Team Providers Name Role Phone Judy Sorensen MD Primary Care Provider Encounter Details Date Type Department Care Team Description 07/05/2004 Office Visit [facility] Gwen Sorensen MD [address] [address] [place] [address] [phone] Social History Tobacco Use Types Packs/Day Years Used Date Smoking Tobacco: Never Assessed Sex Assigned at Date Recorded Not on file documented as of this encounter Progress Notes Judy Larsen MD - 07/05/2004 12:01 AM CDT H&P signed by Judy Larsen MD at 09/19/04 1801 Author: Judy Larsen MD Service: (none) Author Type: Physician Filed: 01/07/11 0028 Note Time: 07/05/04 0001 Status: Signed Financial Services Officer: Judy Larsen MD (Physician) NAME: SHU OLIVA MR: [id number] ACCT: [id number] VISIT: [id number] DICTATING CLINICIAN: JUDY LARSEN MD JOB: [id number] CLINIC PHYSICAL DATE OF VISIT: 07/05/2004 SUBJECTIVE: Chief Complaint: Persistent cough. PAST MEDICAL HISTORY: Hyperlipidemia, tobacco use, GE reflux disease. History tubal ligation. MEDICATIONS: Lipitor 40 mg, atenolol 25 mg, ranitidine 300 mg q. h.s. ADR/ALLERGIES: NO ASPIRIN USE BECAUSE OF BRUISING. FAMILY HISTORY: Positive coronary artery disease. Denies colon cancer or breast cancer. SOCIAL HISTORY: . 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 Grown children. REVIEW OF SYSTEMS: Cough generally each a.m., productive about half of the days of the month. Denies any exertional angina or anginal equivalents. No claudication. No focal neurologic deficits. Gets somewhat winded of she goes up two flights of stairs. Probably could not get up three. Reflux is not significant at present. Remainder of coronary, pain, nutrition, functional assessment screens are negative. Online chart review reveals that she had had a distal circumflex disease, right main and LAD, within normal limits on angiogram . Upper GI was done, 1998. Has had a polyp that is believed to be adenomatous, although I do not have her paper chart copy and the pathology and exam was done at a [facility] facility and is not available in the on-line medical record. OBJECTIVE: VS: BP: 130/72. P: 66, regular. Ht: 60-1/2 in. Wt: 129 lb. Well-appearing 63-year-old in no distress. She does have stigmata of tobacco use. HEENT: Normal. NECK: Supple. No adenopathy, thyromegaly or masses. CHEST: Has no increased AP diameter. LUNGS: Clear to A and P. Respirations without use of accessory muscles. Slight decreased excursion. HEART: Sounds 2/6 systolic ejection murmur at the left second interspace. CORONARY: Grade 2/6 murmur at the left sternal border, systolic. PMI is normal. Normal peripheral pulses. No bruits. ABDOMEN: Soft, nontender. No masses or organomegaly. NODES: Negative cervical, axillary and inguinal. GENITALIA: Normal EGBUS. Vaginal vault and cervix with atrophic changes. Adequate support. Uterine fundus is small, senile, mobile. No adnexal masses or tenderness. Rectovaginal exam normal. ASSESSMENT: Well exam. Hyperlipidemia with history of ischemic coronary artery disease. Persistent cough in a tobacco user, symptomatic criteria met for COPD. History of colon polyp believed to be adenomatous. PLAN: Advised 81 mg aspirin. Continue Lipitor 40 mg. Reviewed cholesterol fractionation goals of LDL less than 100. Continue atenolol 25 mg daily and ranitidine. May consider a switch from ranitidine to Prilosec OTC to see if it better manages her cough. Chest x-ray, PA and lateral, was obtained and reviewed and shows no acute infiltrate or change. Labs, screening and health maintenance, to include Pap, mammogram, colonoscopy, Pneumovax and influenza vaccination. Cholesterol fractionation, AST, ALT, creatinine to follow the hyperlipidemia and hypertension. Refills supplied of current medications. Offered assistance with tobacco cessation. Counseled regarding cessation efforts and available assistance. [facility]:[id number] C: 07/15/04 08:45 DOCUMENT: [id number] H documented in this encounter Plan of Treatment Not on filedocumented as of this encounter Procedures Procedure Name Priority Date/Time Associated Diagnosis Comme nts XR CHEST 2 VIEWS Routine 07/05/2004 11:26 AM Resu lts for this CDT procedure are i n the results section. documented in this encounter Results XR Chest 2 Views (07/05/2004 11:26 AM CDT) Anatomical Region Laterality Modality Chest, Lung Other Specimen (Source) Anatomical Location Collection Method / Collectio n Time Received Time / Laterality Volume Narrative 07/05/2004 11:26 AM CDT Impression: Normal chest. Findings: CH1 The cardiovascular structures appear nor mal. ??No evidence of active pulmonary disease. Dictating KARLA PATTERSON RADIOLOGIST Procedure Note Karla Gustafson - 11/26/2016 Impression: Normal chest. Findings: CH1 The cardiovascular structures appear nor mal. No evidence of active pulmonary disease. Dictating KARLA PATTERSON RADIOLOGIST Judy Sorensen MD RAD GD documented in this encounter Visit Diagnoses Not on filedocumented in this encounter Care Teams Restaurant Hourly Manager Relationship Specialty Start Date End Date Judy Sorensen MD PCP - General 12/18/10 05/02/18 [address] [place] [address] documented as of this encounter
--- OUTSIDE RECORDS SUMMARY | 2022-04-27 03:00 | XMS_ITS | Encounter Summary ---
:1940 Author Organization [facility] Address [address] [place] [address] Care Team Providers Name Role Phone Judy Sorensen MD Primary Care Provider Encounter Details Date Type Department Care Team Description 03/10/2006 PN Conversion Only [place] [address] [place] [address] [place], [place] [address] (Wo rk) Social History Tobacco Use Types Packs/Day Years Used Date Smoking Tobacco: Never Assessed Sex Assigned at Date Recorded Not on file documented as of this encounter Plan of Treatment Not on filedocumented as of this encounter Procedures Procedure Name Priority Date/Time Associated Diagnosis Comme nts LIPID PANEL AND Routine 03/10/2006 9:15 AM Result s for this DIRECT LDL(IF CDT procedure are in NEEDED) the results section. ALT (SGPT) Routine 03/10/2006 9:15 AM Results f or this CDT procedure are i n the results section. AST Routine 03/10/2006 9:15 AM Results f or this CDT procedure are i n the results section. documented in this encounter Results ALT (SGPT) (03/10/2006 9:15 AM CDT) [facility] Method Time Signature Alanine 38 0 - 65 HP CONVERSION Aminotransferase U/L Specimen (Source) Anatomical Collection Method Collection Time Re ceived Time Location / / Volume Laterality 03/10/2006 9:15 AM CDT Judy Sorensen MD LAB_1 Performing Organization Address City/State/ZIP Code Phon e Number HP CONVERSION AST (03/10/2006 9:15 AM CDT) [facility] Method Time Signature Aspartate 19 0 - 45 HP CONVERSION Aminotransferase U/L Specimen (Source) Anatomical Collection Method Collection Time Re ceived Time Location / / Volume Laterality 03/10/2006 9:15 AM CDT Judy Sorensen MD LAB_1 Performing Organization Address City/[facility] Phon e Number HP CONVERSION Lipid Panel and Direct LDL(If Needed) (03/10/2006 9:15 AM CDT) [facility] Method Time Signature Cholesterol/HDL 3.0 No normal HP CONVERSION Ratio Screen range Cholesterol 179 <200 mg/dL HP CONVERSION HDL Cholesterol 60 40 - 60 HP CONVERSION mg/dL Triglycerides 110 0 - 149 HP CONVERSION mg/dL LDL Calculated 97 0 - 130 HP CONVERSION mg/dL Comment: Specimen (Source) Anatomical Collection Method Collection Time Re ceived Time Location / / Volume Laterality 03/10/2006 9:15 AM CDT Judy Sorensen MD LAB_1 Performing Organization Address City/[facility] Code Phon e Number HP CONVERSION documented in this encounter Visit Diagnoses Not on filedocumented in this encounter Care Teams Junior Account Executive Relationship Specialty Start Date End Date Judy Sorensen MD PCP - General 12/18/10 05/02/18 [address] [place] [address] documented as of this encounter
--- OUTSIDE RECORDS SUMMARY | 2022-04-27 03:00 | XMS_ITS | Encounter Summary ---
:1940 Author Organization [employer] Address [address] [place] [address] Care Team Providers Name Role Phone Judy Sorensen MD Primary Care Provider Encounter Details Date Type Department Care Team Description 07/05/2004 PN Conversion Only [place] [address] [place] [address] [place], [place] [address] (Wo rk) Social History Tobacco Use Types Packs/Day Years Used Date Smoking Tobacco: Never Assessed Sex Assigned at Date Recorded Not on file documented as of this encounter Plan of Treatment Not on filedocumented as of this encounter Procedures Procedure Name Priority Date/Time Associated Comments Diagnosis ANATOMICAL PATH Routine 07/05/2004 8:31 AM Result s for this LIQUID BASED CDT procedure are i n the results section. documented in this encounter Results Pap Smear (07/05/2004 8:31 AM CDT) [facility] Method Time Signature PAP Smear SEE TEXT No normal HP CONVERSION Liquid Based range Comment: Patient: SHU OLIVA ? CERVICAL CYTOLOGY REPORT Pathology # ??[id number] ?Date Obtained: ? Date Received: CYTOLOGIC IMPRESSION: Negative for intraepithelial lesion or m alignancy. ? PAULINA TIONAL DATA LMP: CLINICAL HIST LIQUID BASED PAP CERVICAL SPECIMEN ADEQUACY: ?? Satisfactory. ENDOCERVICAL CELLS: ??Present. Verified 07/13/04 by: ??MB ? (electronic signature) Specimen (Source) Anatomical Collection Method Collection Time Re ceived Time Location / / Volume Laterality 07/05/2004 8:31 AM CDT Judy Sorensen MD LAB_1 Performing Organization Address City/State/ZIP Code Phon e Number HP CONVERSION documented in this encounter Visit Diagnoses Not on filedocumented in this encounter Care Teams Um Rn Relationship Specialty Start Date End Date Judy Sorensen MD PCP - General 12/18/10 05/02/18 [address] [place] [address] documented as of this encounter
--- OUTSIDE RECORDS SUMMARY | 2022-04-27 03:00 | XMS_ITS | Encounter Summary ---
:1940 Author Organization [employer] Address [address] [address] Care Team Providers Name Role Phone Judy Sorensen MD Primary Care Provider Encounter Details Date Type Department Care Team Description 09/25/2006 Office Visit [facility] Gwen Sorensen MD [address] [address] [place] [address] [phone] Social History Tobacco Use Types Packs/Day Years Used Date Smoking Tobacco: Never Assessed Sex Assigned at Date Recorded Not on file documented as of this encounter Last Filed Vital Signs Vital Sign Reading Time Taken Comments Blood Pressure 130/80 09/25/2006 10:30 AM BULL DRIVER Pulse 62 09/25/2006 10:30 AM BULL DRIVER Temperature 37.1 ??C (98.8 ??F) 09/25/2006 10:30 AM BULL DRIVER C: 3 7.1 C Respiratory Rate - - Oxygen Saturation - - Inhaled Oxygen Concentration - - Weight 63 kg (138 lb 15.7 oz) 09/25/2006 10:30 AM BULL DRIVER C : 63.0kg Height - - Body Mass Index - - documented in this encounter Progress Notes Judy Larsen MD - 09/25/2006 12:01 AM CST Progress Notes signed by Judy Larsen MD at 10/10/06 8350 Author: Judy aLrsen MD Service: (none) Author Type: Physician Filed: 01/07/11 1614 Note Time: 09/25/06 0001 Status: Signed Audiovisual Aids Technician: Judy Larsen MD (Physician) NAME: SHU OLIVA MR#: [id number] ACCT: [id number] VISIT: [id number] DICTATING CLINICIAN: JUDY LARSEN MD JOB: [id number] LOC: 502 CLINIC PROGRESS NOTE DATE OF VISIT: 09/25/2006 SUBJECTIVE: Preoperative exam. Shu is a 65-year-old who comes in for preop assessment and clearance prior to bifemoral bypass surgery for peripheral vascular disease causing claudication. She has had an extensive workup done by Dr. Mckinley which includes a dobutamine stress echo dated 08/15/06 which was normal. She quit smoking 1 month ago, having difficulty maintaining abstinence, but is following the program. PAST MEDICAL HISTORY: Long-standing tobacco abuse, greater than 50 pack year history. History of ischemic heart disease in the distant past, hypertension, gastroesophageal reflux disease. Full details are on LastWord problem list. SURGERIES: Prior elective tubal ligation. MEDICATIONS: Lipitor 60 mg daily, atenolol 25 mg daily, aspirin 81 mg daily. ADR/ALLERGIES: DENIED. FAMILY HISTORY: No anesthetic reactions, positive for vascular disease. Sister with coronary artery bypass and peripheral vascular disease. SOCIAL HISTORY: , retired, has a daily glass of wine. Walking is limited by claudications. COMPLETE REVIEW OF SYSTEMS: Negative other than those historical details as listed on the preop assessment. OBJECTIVE: VS: BP: 130/80. T: 98.7. P: 62, regular. R: 16, unlabored. Ht: 5 ft 1/2 in. Wt: 139. Physical exam reveals a woman appearing stated in no acute distress. Appears in overall good health. She uses no accessory muscles of respiration. Physical exam is normal except for a 1/6 systolic ejection murmur, decreased peripheral pulses. See preop for details. EKG dated 08/13/06 showed normal sinus rhythm with normal EKG. Hemoglobin 13.7. ASSESSMENT: Symptomatic claudication due to peripheral artery disease, hypertension controlled, hyperlipidemia controlled, gastroesophageal reflux disease symptomatic. History of recent dobutamine stress echo showing no at risk myocardium. There are no contraindications to the intended surgery. Her risks include her hypertension, hyperlipidemia and long-standing tobacco use. PLAN: Proceed with surgery, beta griselda protocol to be utilized. Reviewed medication use pre and postoperatively with patient. [facility]:[id number] C: 10/09/06 08:37 DOCUMENT: [id number] DRIVER documented in this encounter Plan of Treatment Not on filedocumented as of this encounter Visit Diagnoses Not on filedocumented in this encounter Care Teams Sales Marketing Director Relationship Specialty Start Date End Date Judy Sorensen MD PCP - General 12/18/10 05/02/18 [address] [place] [address] documented as of this encounter
--- OUTSIDE RECORDS SUMMARY | 2022-04-27 03:00 | XMS_ITS | Encounter Summary ---
:1940 Author Organization [employer] Address [address], [place] [address] Care Team Providers Name Role Phone Judy Sorensen MD Primary Care Provider Encounter Details Date Type Department Care Team Description 05/16/2006 Office Visit [facility] wGen Sorensen MD [address] [address] [place] [address] [phone] Social History Tobacco Use Types Packs/Day Years Used Date Smoking Tobacco: Never Assessed Sex Assigned at Date Recorded Not on file documented as of this encounter Last Filed Vital Signs Vital Sign Reading Time Taken Comments Blood Pressure 128/70 05/16/2006 9:45 AM CDT Pulse 62 05/16/2006 9:45 AM CDT Temperature - - Respiratory Rate - - Oxygen Saturation - - Inhaled Oxygen Concentration - - Weight 59.9 kg (131 lb 15.8 oz) 05/16/2006 9:45 AM CDT C: 59.9kg Height - - Body Mass Index - - documented in this encounter Progress Notes Judy Larsen MD - 05/16/2006 12:01 AM CDT Progress Notes signed by Judy Larsen MD at 05/18/06 1009 Author: Judy Larsen MD Service: (none) Author Type: Physician Filed: 01/07/11 1339 Note Time: 05/16/06 0001 Status: Signed Char Belt Operator: Judy Larsen MD (Physician) NAME: SHU OLIVA MR: [id number] ACCT: [id number] VISIT: [id number] DICTATING CLINICIAN: JUDY LARSEN MD JOB: [id number] LOC: 502 CLINIC PROGRESS NOTE DATE OF VISIT: 05/16/2006 SUBJECTIVE: A 65-year-old comes in because she received an abnormal report from a [employer] screening. She had potentially significant findings in the carotid artery. The numbers supplied included the left internal carotid artery PSV of 148 cm per second and ABV of 48 cm per second. Right internal carotid artery PFV of 242 cm per second and EDV of 97 cm per second. Her right ankle brachial index was abnormal at 0.07. Her left was 0.97. Abdominal aortic ultrasound was reported normal. Shu does have symptoms of claudication at 2 blocks in the right leg. She has no exertional angina. Her neurologic review of systems is negative without any symptoms suggestive of TIA. She does smoke and is interested in quitting. Has hypertension and hyperlipidemia and a prior history of ischemic coronary artery disease. She had a angiogram done in approximately 1989 that showed a 70% blockage. No action was undertaken. She has tried to quit smoking in the past without success. She has no history of seizure disorder. OBJECTIVE: Pleasant 65-year-old in no acute distress. Stigmata of tobacco use are present. NECK: Supple without bruit. Normal carotid impulse. HEART SOUNDS: Normal. There is a faint left carotid bruit. No femoral bruit. Right peripheral pulses are trace by dorsalis pedis and posterior tibial. Capillary refill appears normal however, with no dependent rubor. ASSESSMENT: Claudication, abnormal screening duplex carotid ultrasound in a patient with multiple risk factors including fdc tobacco use, history of noncritical single vessel coronary artery disease, hypertension, and hyperlipidemia. PLAN: Ankle brachial index duplex carotid ultrasound. Unless completely normal will plan vascular surgery consultation once findings are known. Initiate tobacco cessation planning with Zyban 150 mg p.o. b.i.d. Discussed means to achieve tobacco cessation. Offered the quit plan which patient declined. [facility]:[id number] C: 05/17/06 23:39 DOCUMENT: [id number] documented in this encounter Plan of Treatment Not on filedocumented as of this encounter Visit Diagnoses Not on filedocumented in this encounter Care Teams Warehouse Assembly Worker Relationship Specialty Start Date End Date Judy Sorensen MD PCP - General 12/18/10 05/02/18 [address] [place] [address] documented as of this encounter
--- OUTSIDE RECORDS SUMMARY | 2022-04-27 03:00 | XMS_ITS | Encounter Summary ---
:1940 Author Organization [employer] Address [address] [place] [address] Care Team Providers Name Role Phone Judy Sorensen MD Primary Care Provider Encounter Details Date Type Department Care Team Description 07/12/2004 PN Conversion Only [facility] [address] [place] [address] Social History Tobacco Use Types Packs/Day Years Used Date Smoking Tobacco: Never Assessed Sex Assigned at Date Recorded Not on file documented as of this encounter Plan of Treatment Not on filedocumented as of this encounter Procedures Procedure Name Priority Date/Time Associated Diagnosis Comme nts MM MAMMOGRAM Routine 07/12/2004 10:58 AM Results for this SCREENING W CAD CDT procedure ar e in the results section. documented in this encounter Results MM Mammogram Screening W CAD (07/12/2004 10:58 AM CDT) Anatomical Region Laterality Modality Breast Bilateral Mammography Specimen (Source) Anatomical Location Collection Method / Collectio n Time Received Time / Laterality Volume Impressions 07/13/2004 4:56 PM CDT : BILATERAL BREASTS - Category 1 Negative, no evidence of malignancy. Nor mal interval follow-up is recommended in 12 months. OVERALL ASSESSMENT - NEGATIVE END OF IMPRESSION Dictating ANTON GONZALEZ Physician Narrative 07/13/2004 4:56 PM CDT Comparison is made to films from 11/06/2001. ??There is no significant interval change. Bilateral Breast Findings: There are scattered fibroglandular densi ties. ??No significant masses, calcifications or other abnormalities ar e seen. Procedure Note Anton Gifford MD - 11/26/2016Form atting of this note might be different from the original. Comparison is made to films from 002. There is no significant interval change. Bilateral Breast Findings: There are scattered fibroglandular densi ties. No significant masses, calcifications or other abnormalities ar e seen. IMPRESSION : BILATERAL BREASTS - Category 1 Negative, no evidence of malignancy. Nor mal interval follow-up is recommended in 12 months. OVERALL ASSESSMENT - NEGATIVE END OF IMPRESSION Dictating ANTON GONZALEZ Physician Judy Sorensen MD RAD [facility] documented in this encounter Visit Diagnoses Not on filedocumented in this encounter Care Teams Patent Litigation Associate Relationship Specialty Start Date End Date Judy Sorensen MD PCP - General 12/18/10 05/02/18 [address] [place], [place] [address] documented as of this encounter
--- OUTSIDE RECORDS SUMMARY | 2022-04-27 03:00 | XMS_ITS | Encounter Summary ---
:1940 Author Organization [employer] Address [address] [place] [address] Care Team Providers Name Role Phone Judy Sorensen MD Primary Care Provider Reason for Visit Reason Comments Other Encounter Details Date Type Department Care Team Description 05/18/2006 Telephone [facility], Message Other [address] [place] [address] Social History Tobacco Use Types Packs/Day Years Used Date Smoking Tobacco: Never Assessed Sex Assigned at Date Recorded Not on file documented as of this encounter Progress Notes Center, Message - 05/18/2006 8:53 AM CDT Phone Note filed by VIOSO at 01/04/11810 Author: VIOSO Service: (none) Author Type: (none) Filed: 01/04/11810 Note Time: 05/18/06852 Status: Signed And Drying Supervisor Cooking Casing: VIOSO MESSAGE TO CARE TEAM NAME OF CALLER:Sol NAME OF CLINICIAN:Suzie MESSAGE:Please have someone call this patient regarding her appts at [facility] on May 24. She would like to verify these appts set. PHARMACY NAME: PHARMACY PHONE #: CALL BACK PHONE #: [phone] BEST TIME TO CALL BACK: Anytime Is it OK to leave detailed message on voicemail? Yes Created on 18May2006 8:53am by HAKEEM VERDUGO On 18May2006 3:08pm JUDY GARCÍA wrote: Presume these are the vascular tests. Please call. Acknowledged by JUDY GARCÍA on 3:08pm On 19May2006 9:52am MARKUS CORLEY wrote: spoke to pt Acknowledged by MARKUS CORLEY on 9:52am MATION MANAGER documented in this encounter Plan of Treatment Not on filedocumented as of this encounter Visit Diagnoses Not on filedocumented in this encounter Care Teams Tamper Operator Relationship Specialty Start Date End Date Judy Sorensen MD PCP - General 12/18/10 05/02/18 [address] [place] [address] documented as of this encounter
--- OUTSIDE RECORDS SUMMARY | 2022-04-27 03:00 | XMS_ITS | Encounter Summary ---
:1940 Author Organization [employer] Address [address] [place] [address] Care Team Providers Name Role Phone Judy Sorensen MD Primary Care Provider Reason for Visit Reason Comments Other Encounter Details Date Type Department Care Team Description 11/24/2005 Telephone [facility], Message Other [address] [place] [address] Social History Tobacco Use Types Packs/Day Years Used Date Smoking Tobacco: Never Assessed Sex Assigned at Date Recorded Not on file documented as of this encounter Progress Notes Jacqueline Mccurdy - 11/24/2005 8:42 AM CST Phone Note filed by Jacqueline Mccurdy MA at 01/04/11134 Author: Jacqueline Mccurdy MA Service: (none) Author Type: (none) Filed: 01/04/11134 Note Time: 11/24/05841 Status: Signed Orthodontic Treatment Coordinator: Jacqueline Mccurdy MA (Armoring Machine Operator) Pt called and needs a refill of Atenolol 25mg called into [facility] in [place].Please call pt when done [phone] thanks Created on 24Nov2005 8:42am by JACQUELINE MCCURDY On 24Nov2005 5:51pm JUDY GARCÍA wrote: Please check on the pharmacy - there is not a fax for [facility] in [place]. Patient was last seen 06-21, I will give a 30 day refill, no additional unless she has been seen. Please forward message to my nurse if you are unable to call in the refill. Acknowledged by JUDY GARCÍA on 5:51pm On 25Nov2005 8:50am JACQUELINE MCCURDY wrote: please address Acknowledged by JACQUELINE MCCURDY on 8:50am On 25Nov2005 9:17am MARKUS CORLEY wrote: called spoke to pt pt to come in for appt 12/02/05. script called in to pharm for no refills Acknowledged by MARKUS CORLEY on 9:17am Y BLENDER documented in this encounter Plan of Treatment Not on filedocumented as of this encounter Visit Diagnoses Not on filedocumented in this encounter Care Teams German Instructor Relationship Specialty Start Date End Date Judy Sorensen MD PCP - General 12/18/10 05/02/18 [address] [place] [address] documented as of this encounter
--- OUTSIDE RECORDS SUMMARY | 2022-04-27 03:00 | XMS_ITS | Encounter Summary ---
:1940 Author Organization [facility] Address [address] [place] [address] Care Team Providers Name Role Phone Judy Sorensen MD Primary Care Provider Encounter Details Date Type Department Care Team Description 07/28/2006 PN Conversion Only [facility] [place] [address] [place] [address] Social History Tobacco Use Types Packs/Day Years Used Date Smoking Tobacco: Never Assessed Sex Assigned at Date Recorded Not on file documented as of this encounter Plan of Treatment Not on filedocumented as of this encounter Procedures Procedure Name Priority Date/Time Associated Diagnosis Comme nts ECG 12 LEAD [facility] Routine 07/28/2006 8:27 AM Res ults for this PROTECTIVE SIGNAL REPAIRER procedure are i n the results section. documented in this encounter Results ECG 12 lead clinic (07/28/2006 8:27 AM PROTECTIVE SIGNAL REPAIRER) Specimen (Source) Anatomical Collection Method Collection Time Re ceived Time Location / / Volume Laterality 07/28/2006 8:27 AM PROTECTIVE SIGNAL REPAIRER Narrative HP CONVERSION - 07/28/2006 8:27 AM PROTECTIVE SIGNAL REPAIRER Sinus bradycardia Otherwise normal ECG When compared with ECG of 01-JAN-1999 0 7:47, No significant change was found Imr Conversion PN ECG ORDERABLES Performing Organization Address City/State/ZIP Code Phon e Number HP CONVERSION documented in this encounter Visit Diagnoses Not on filedocumented in this encounter Care Teams Clerk Typist Relationship Specialty Start Date End Date Judy Sorensen MD PCP - General 12/18/10 05/02/18 [address] [place], [place] [id number] documented as of this encounter
--- OUTSIDE RECORDS SUMMARY | 2022-04-27 03:00 | XMS_ITS | Encounter Summary ---
:1940 Author Organization [employer] Address [address] [place] [address] Care Team Providers Name Role Phone Unassigned, Provider Primary Care Provider Unavailable Encounter Details Date Type Department Care Team Description 07/31/2006 Hospital Encounter Heart & Vascular Evon Mckinley MD [address] [place] [address] Center Procedural Ar ea Jeremy Mckinley MD [address] [id number] [address] [employer] [facility] [place] [address] Social History Tobacco Use Types [...] Tobacco Cessation UNKNOWN MEDICATION Indications: PN: 0 07/31/2006 03/10/2010 UNKNOWN MEDICATION Indications: PN: 0 07/28/2006 03/10/2010 UNKNOWN MEDICATION Indications: PN: 0 06/27/2006 03/10/2010 UNKNOWN MEDICATION Indications: PN: 0 05/16/2006 03/10/2010 UNKNOWN MEDICATION Indications: PN: 0 12/02/2005 03/10/2010 UNKNOWN MEDICATION Indications: PN: 0 06/25/2005 03/10/2010 documented as of this encounter Miscellaneous Notes Miscellaneous - Jeremy Mckinley MD - 07/31/2006 12:01 AM CST ICD-9-CM ICD-9-CM Narrative description Code ======== DIAGNOSES 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 documented in this encounter Results IR Angiogram Extremity Bilateral (07/31/2006 12:31 PM COAL PULVERIZING OPERATOR) Anatomical Region Laterality Modality Other Specimen (Source) Anatomical Location Collection Method / Collectio n Time Received Time / Laterality Volume Impressions 07/31/2006 12:31 PM COAL PULVERIZING OPERATOR : Uncomplicated abdominal aortic and bilat eral lower extremity angiography demonstrating bilateral geraldine c disease which on the right is long segment with relatively small na tive vessels as described above. ??There are hemodynamically signi ficant gradients across both iliac systems at rest. 403664/pb Dictating KEVIN VALVERDE Radiologist Narrative 07/31/2006 12:31 PM COAL PULVERIZING OPERATOR EXAM: ? 1. ?? Abdominal ?aortic an giogram. ? 2. ?? Right ?lower extremi ty angiogram via ipsilateral catheterization. ? 3. ?? Left ?lower extremit y angiogram via second order contralateral catheterization. HISTORY: ??Right leg claudication, MRA d emonstrates iliac disease. CONSENT: ??Written and oral informed con sent discussing risks, benefits, and alternatives of the proced ure was obtained from the patient prior to the procedure. SEDATION: ??Moderate conscious sedation was provided by and continuously monitored by radiology nurs ing staff. ??Patient's vital signs were maintained stable throughout the procedure. MEDICATIONS: ??150 mcg fentanyl IV, 3 mg Versed IV. INTRAVENOUS CONTRAST: ??100 mL Visipaque 320. FLUOROSCOPY TIME: ??7.9 minutes. PROCEDURE: ??Skin overlying the right gr oin was prepped and draped in the usual sterile fashion. ??Local anest hesia was administered with subcutaneous lidocaine. ??Access to the common femoral artery was obtained with a Micropuncture needle and a 0.035 wire was advanced. A 4-Tuvaluan sheath was placed. ??Bentson wire would not easily advance and the right iliac stenosis was crossed utilizing an angled Glidewire with a 4-Tuvaluan Kumpe catheter . ??Measuring Omni flush catheter which was placed in the suprare nal aorta and aortic angiography performed. ??With the aid of a Bentson wire the catheter was manipulated into the left external i liac artery and left runoff angiogram was performed. ??Pullback pres sure measurements obtained. Runoff angiography of the right leg was then performed via the sheath after the catheter was removed. ??Pullba ck pressures were also obtained. [facility] the sheath was pulled and hemostasis achieved with manu al compression. COMPLICATIONS: ??No immediate complicati ons. FINDINGS: ? 1. ?? The ?infrarenal aort a demonstrates diffuse atherosclerotic disease without signific ant ?stenosis. ??The inferior mesenteric ?artery, supe rior mesenteric artery and single bilateral renal arteries are ?patent. ??There is mild atherosclerotic ?disease at the o rigins of the both renal arteries that does not appear ?he modynamically significant. ? 2. ?? Left ?lower extremit y angiography: ??There ?is an angiographically moderate stenosis with a 20-mm gradient at rest across the proximal left common iliac ar roderick. ??The remainder of the common iliac as well as the external ?and internal iliac arteries are patent. ? There is mild disea se at the origin of the internal iliac artery. ??Profunda and superficial femoral and ?popliteal arteries are all widely patent. ? There is a high origin of the left anterior tibial artery which is ?patent to the foot. Posterior ?tibial artery is paten t to the foot as well and the peroneal artery is ?patent to the distal ankle. ? 3. ?? Right ?lower extremi ty angiography: ??There ?is a high-grade stenosis of the right common iliac artery extending into a small right external iliac artery which measures approximately 4.5 mm in ?caliber. ??There is a 16-mm p ressure ?gradient across the iliac system at rest. ? The commo n femoral artery is patent. Profunda femoral artery is patent. ??Sup erficial femoral artery is patent. ??Popliteal artery is patent. ?? There is 3-vessel runoff to the foot without ?significant stenosi s. COMPLICATIONS: ??None. PLAN: ??Routine postprocedure observatio n and vital sign monitoring. Patient will follow up with Dr. Jeanna ivy ?? Procedure Note Kevin Hurtado MD - 11/26/2016For matting of this note might be different from the original. EXAM: 1. Abdominal aortic angiogram. 2. Right lower extremity angiogram via ipsilateral catheterization. 3. Left lower extremity angiogram via s econd order contralateral catheterization. HISTORY: Right leg claudication, MRA dem onstrates iliac disease. CONSENT: Written and oral informed conse nt discussing risks, benefits, and alternatives of the proced ure was obtained from the patient prior to the procedure. SEDATION: Moderate conscious sedation wa s provided by and continuously monitored by radiology nurs ing staff. Patient's vital signs were maintained stable throughout the procedure. MEDICATIONS: 150 mcg fentanyl IV, 3 mg V ersed IV. INTRAVENOUS CONTRAST: 100 mL Visipaque 3 20. FLUOROSCOPY TIME: 7.9 minutes. PROCEDURE: Skin overlying the right groi n was prepped and draped in the usual sterile fashion. Local anesthe sita was administered with subcutaneous lidocaine. Access to the co mmon femoral artery was obtained with a Micropuncture needle and a 0.035 wire was advanced. A 4-Tuvaluan sheath was placed. Bentson wi re would not easily advance and the right iliac stenosis was crossed utilizing an angled Glidewire with a 4-Tuvaluan Kumpe catheter . Measuring Omni flush catheter which was placed in the suprare nal aorta and aortic angiography performed. With the aid of a Bentson wire the catheter was manipulated into the left external i liac artery and left runoff angiogram was performed. Pullback pressu re measurements obtained. Runoff angiography of the right leg was then performed via the sheath after the catheter was removed. Pullback pressures were also obtained. Patient was then [facility] where the sheath was pulled and hemostasis achieved with manu al compression. COMPLICATIONS: No immediate complication s. FINDINGS: 1. The infrarenal aorta demonstrates di ffuse atherosclerotic disease without signific ant stenosis. The inferior mesenteric artery, superior mes enteric artery and single bilateral renal arteries are elias nt. There is mild atherosclerotic disease at the origins o f the both renal arteries that does not appear hemodynami vikas significant. 2. Left lower extremity angiography: Th ere is an angiographically moderate stenosis with a 20-mm gradient at rest across the proximal left common iliac ar roderick. The remainder of the common iliac as well as the external and internal iliac arteries are patent. There is mild disease at the origin of the internal iliac artery. Profunda and superficial f emoral and popliteal arteries are all widely patent. There is a high origin of the left anterior tibial artery which is pat ent to the foot. Posterior tibial artery is patent to the foot as well and the peroneal artery is patent to the distal ankle. 3. Right lower extremity angiography: T here is a high-grade stenosis of the right common iliac artery extending into a small right external iliac artery which measures approximately 4.5 mm in caliber. There is a 16-mm pressure gr adient across the iliac system at rest. The common femoral artery is patent. Profunda femoral artery is patent. Super ficial femoral artery is patent. Popliteal artery is patent. Ther e is 3-vessel runoff to the foot without significant stenosis. COMPLICATIONS: None. PLAN: Routine postprocedure observation and vital sign monitoring. Patient will follow up with Dr. Jeanna gomez. IMPRESSION : Uncomplicated abdominal aortic and bilat eral lower extremity angiography demonstrating bilateral geraldine c disease which on the right is long segment with relatively small na tive vessels as described above. There are hemodynamically signifi cant gradients across both iliac systems at rest. [id number]/pb Dictating KEVIN VALVERDE Radiologist Jeremy Mckinley MD RAD IR documented in this encounter Visit Diagnoses Not on filedocumented in this encounter Care Teams Digital Librarian Relationship Specialty Start Date End Date Unassigned, Provider PCP - General 08/25/00 12/17/[address] [place] [id number] documented as of this encounter
--- OUTSIDE RECORDS SUMMARY | 2022-04-27 03:00 | XMS_ITS | Encounter Summary ---
:1940 Author Organization [employer] Address [address] [place] [address] Care Team Providers Name Role Phone Judy Sorensen MD Primary Care Provider Encounter Details Date Type Department Care Team Description 08/01/2006 Office Visit [facility] Carlee Fedlman MD [facility] [address] [place] [address] [place] [address] [phone] Social History Tobacco Use Types Packs/Day Years Used Date Smoking Tobacco: Never Assessed Sex Assigned at Date Recorded Not on file documented as of this encounter Last Filed Vital Signs Vital Sign Reading Time Taken Comments Blood Pressure 162/78 08/01/2006 10:26 AM CFO CONTROLLER Pulse - - Temperature - - Respiratory Rate - - Oxygen Saturation - - Inhaled Oxygen Concentration - - Weight - - Height - - Body Mass Index - - documented in this encounter Progress Notes Carlee Gracia MD - 08/01/2006 12:01 AM CST Progress Notes signed by Carlee Gracia MD at 08/05/06 0845 Author: Carlee Gracia MD Service: (none) Author Type: Physician Filed: 01/07/11 1508 Note Time: 08/01/06 0001 Status: Signed Manager Inventory Control: Carlee Gracia MD (Physician) NAME: SHU OLIVA MR#: [id number] ACCT: [id number] VISIT: [id number] DICTATING CLINICIAN: CARLEE GRACIA MD JOB: [id number] LOC: 3588 CLINIC PROGRESS NOTE DATE OF VISIT: 08/01/2006 ADDENDUM: Total time is 15 minutes, counseling time 15 minutes. SUBJECTIVE: OBJECTIVE: ASSESSMENT: PLAN: Ángel:[id number] C: 08/02/06 08:12 DOCUMENT: [id number] CONTROLLER Carlee Gracia MD - 08/01/2006 12:01 AM CST Progress Notes signed by Carlee Gracia MD at 08/05/06 0845 Author: Carlee Gracia MD Service: (none) Author Type: Physician Filed: 01/07/11 1508 Note Time: 08/01/06 0001 Status: Signed Manager Inventory Control: Carlee Gracia MD (Physician) NAME: SHU OLIVA MR#: [id number] ACCT: [id number] VISIT: [id number] DICTATING CLINICIAN: CARLEE GRACIA MD JOB: [id number] LOC: 3588 CLINIC PROGRESS NOTE DATE OF VISIT: 08/01/2006 SUBJECTIVE: This is a followup visit on a patient who has severe short distance claudication, right worse than left. Patient had an angiogram which shows that she has got a long segment stenosis of her right common iliac as well as right external iliac artery with a 60 mm gradient as well as a 20 mm radiant across her left common iliac artery. OBJECTIVE: ASSESSMENT: PLAN: I have recommended that the patient get a dobutamine stress echo and if her stress echo is negative, I would recommend that the patient proceed with an aortobifemoral bypass. I have discussed with her the risks, benefits, and details including the risk of bleeding, infection, myocardial infarction. I also discussed with the patient the recovery period, which I told her would be 6 to 8 weeks with regard to her sleep habits, bowel habits, and eating habits. The patient is aware of all of this. We will get a dobutamine stress echo and I will have her come back to my office. CC: JUDY GARCÍA MD JMM:[id number] C: 08/02/06 07:52 DOCUMENT: [id number] CONTROLLER documented in this encounter Plan of Treatment Not on filedocumented as of this encounter Visit Diagnoses Not on filedocumented in this encounter Care Teams Biomedical Repair Technician Relationship Specialty Start Date End Date Judy Sorensen MD PCP - General 12/18/10 05/02/18 [address] [place] [address] documented as of this encounter
--- OUTSIDE RECORDS SUMMARY | 2022-04-27 03:00 | XMS_ITS | Encounter Summary ---
:1940 Author Organization [employer] Address [address] [place] [address] Care Team Providers Name Role Phone Judy Sorensen MD Primary Care Provider Encounter Details Date Type Department Care Team Description 06/25/2005 PN Conversion Only [address] [place] [address] Social History Tobacco Use Types Packs/Day Years Used Date Smoking Tobacco: Never Assessed Sex Assigned at Date Recorded Not on file documented as of this encounter Plan of Treatment Not on filedocumented as of this encounter Visit Diagnoses Not on filedocumented in this encounter Care Teams Hand Assembler For Puller Over Relationship Specialty Start Date End Date Judy Sorensen MD PCP - General 12/18/10 05/02/18 [address] [place], [place] [address] documented as of this encounter
--- OUTSIDE RECORDS SUMMARY | 2022-04-27 03:00 | XMS_ITS | Encounter Summary ---
:1940 Author Organization [employer] Address [address] [place] [address] Care Team Providers Name Role Phone Judy Sorensen MD Primary Care Provider Encounter Details Date Type Department Care Team Description 09/29/2004 PN Conversion Only CONV GASTROENTEROLOG Y Julius Andersen MD [address] [facility] [address] [place] [address] [phone] (Wo rk) Social History Tobacco Use Types Packs/Day Years Used Date Smoking Tobacco: Never Assessed Sex Assigned at Date Recorded Not on file documented as of this encounter Plan of Treatment Not on filedocumented as of this encounter Visit Diagnoses Not on filedocumented in this encounter Care Teams Sprinkler Inspector Relationship Specialty Start Date End Date Judy Sorensen MD PCP - General 12/18/10 05/02/18 [address] [place], [place] [address] documented as of this encounter
--- OUTSIDE RECORDS SUMMARY | 2022-04-27 03:00 | XMS_ITS | Encounter Summary ---
:1940 Author Organization [employer] Address [address] [place] [address] Care Team Providers Name Role Phone Judy Sorensen MD Primary Care Provider Encounter Details Date Type Department Care Team Description 08/29/2006 Office Visit [facility] [place] [address] [place] [address] [place] [address] (Wo rk) Social History Tobacco Use Types Packs/Day Years Used Date Smoking Tobacco: Never Assessed Sex Assigned at Date Recorded Not on file documented as of this encounter Last Filed Vital Signs Vital Sign Reading Time Taken Comments Blood Pressure 130/70 08/29/2006 11:56 AM PERFORMANCE TEST ARCHITECT Pulse 60 08/29/2006 11:56 AM PERFORMANCE TEST ARCHITECT Temperature 37.1 ??C (98.8 ??F) 08/29/2006 11:56 AM ORAL C: 37.1 C PERFORMANCE TEST ARCHITECT Respiratory Rate 16 08/29/2006 11:56 AM PERFORMANCE TEST ARCHITECT Oxygen Saturation - - Inhaled Oxygen Concentration - - Weight - - Height - - Body Mass Index - - documented in this encounter Progress Notes Rylan Hayward MD - 08/29/2006 12:01 AM CST Progress Notes signed by Rylan Hayward MD at 09/05/06 0901 Author: Rylan Hayward MD Service: (none) Author Type: Physician Filed: 01/07/11 1543 Note Time: 08/29/06 0001 Status: Signed Gas Station Attendant: Rylan Hayward MD (Physician) NAME: SHU OLIVA MR#: [id number] ACCT: [id number] VISIT: [id number] DICTATING CLINICIAN: Rylan Hayward MD JOB: [id number] LOC: 520 CLINIC PROGRESS NOTE DATE OF VISIT: 08/29/2006 SUBJECTIVE: A 65-year-old female presents to clinic today for cough of 2 weeks duration. Having surgery for what sounds like a femoral artery bypass on 09/27/2005. Her symptoms are a cough with production of yellow sputum. She quit smoking on 08/18/06. She is not wheezing and has no history of respiratory disease. No history of sore throat, ear pain, conjunctivitis, facial pain, headache or strep exposure. OBJECTIVE: The patient is alert, oriented, friendly, cooperative. Eyes: Clear. Ears unremarkable. Nose negative. Sinuses nontender. Throat is clear and tonsils 2+ without exudate. NECK: Supple, with full motion. Normal cervical nodes. LUNGS: Harsh. HEART: Normal sinus rhythm, no murmur or gallop. ABDOMEN: Soft and nontender. ASSESSMENT: 1. Bronchitis, put on Z-Emmett. 2. Cough. Phenergan with codeine needs to be taken at night only for sleep. PLAN: See assessment. JND:[id number] C: 08/30/06 13:03 DOCUMENT: [id number] ORMANCE TEST ARCHITECT documented in this encounter Plan of Treatment Not on filedocumented as of this encounter Visit Diagnoses Not on filedocumented in this encounter Care Teams Greenhouse Manager Relationship Specialty Start Date End Date Judy Sorensen MD PCP - General 12/18/10 05/02/18 [address] [place] [address] documented as of this encounter
--- OUTSIDE RECORDS SUMMARY | 2022-04-27 03:00 | XMS_ITS | Encounter Summary ---
:1940 Author Organization [employer] Address [address] [place] [address] Care Team Providers Name Role Phone Judy Sorensen MD Primary Care Provider Encounter Details Date Type Department Care Team Description 08/15/2006 PN Conversion Only CONVERSION CONVERSION Sen, So MD kenzie [address] [place], [place] [address] (Wo rk) Social History Tobacco Use Types Packs/Day Years Used Date Smoking Tobacco: Never Assessed Sex Assigned at Date Recorded Not on file documented as of this encounter Plan of Treatment Not on filedocumented as of this encounter Visit Diagnoses Not on filedocumented in this encounter Care Teams Flatcar Whacker Relationship Specialty Start Date End Date Judy Sorensen MD PCP - General 12/18/10 05/02/18 [address] [place], [place] [address] documented as of this encounter
--- OUTSIDE RECORDS SUMMARY | 2022-04-27 03:00 | XMS_ITS | Encounter Summary ---
:1940 Author Organization [employer] Address [address] [place] [address] Care Team Providers Name Role Phone Judy Sorensen MD Primary Care Provider Reason for Visit Reason Comments Other Encounter Details Date Type Department Care Team Description 08/16/2006 Telephone [facility] Carlee Feldman MD Other [facility] ic [address] [place] [address] [place], [place] [id number] [phone] Social History Tobacco Use Types Packs/Day Years Used Date Smoking Tobacco: Never Assessed Sex Assigned at Date Recorded Not on file documented as of this encounter Progress Notes [employer], Message - 08/16/2006 9:47 AM CST Phone Note filed by Turnip Truck II at 01/04/11 032 Author: [employer] Service: (none) Author Type: (none) Filed: 01/04/11 1137 Note Time: 08/16/06946 Status: Signed District Supervisor: Turnip Truck II Preliminary Dobutimine Stress ECHO results are available on this patient in LastWord. Created on 16Aug2006 9:47am by MARTA KIRAN Acknowledged by CARLEE GRACIA on 11:02am [employer] documented in this encounter Plan of Treatment Not on filedocumented as of this encounter Visit Diagnoses Not on filedocumented in this encounter Care Teams Dude Ranch Manager Relationship Specialty Start Date End Date Judy Sorensen MD PCP - General 12/18/10 05/02/18 [address] [place] [address] documented as of this encounter
--- OUTSIDE RECORDS SUMMARY | 2022-04-27 03:00 | XMS_ITS | Encounter Summary ---
:1940 Author Organization [facility] Address [address] [place] [address] Care Team Providers Name Role Phone Judy Sorensen MD Primary Care Provider Encounter Details Date Type Department Care Team Description 09/24/2004 PN Conversion Only EPISCOPAL CONVERSION Social History Tobacco Use Types Packs/Day Years Used Date Smoking Tobacco: Never Assessed Sex Assigned at Date Recorded Not on file documented as of this encounter Plan of Treatment Not on filedocumented as of this encounter Visit Diagnoses Not on filedocumented in this encounter Care Teams Veneer Layer Relationship Specialty Start Date End Date Judy Sorensen MD PCP - General 12/18/10 05/02/18 [address] [place] [address] documented as of this encounter
--- OUTSIDE RECORDS SUMMARY | 2022-04-27 03:00 | XMS_ITS | Encounter Summary ---
:1940 Author Organization [employer] Address [address] [place] [address] Care Team Providers Name Role Phone Unassigned, Provider Primary Care Provider Unavailable Encounter Details Date Type Department Care Team Description 09/29/2004 Hospital [facility]counter [facility] [address] Julius Mcneil MD [address] [place], [place] [id number] Endoscopy Julius Andersen MD [address] [place], [place] [phone] [facility] [place] [address] Social History Tobacco Use Types Packs/Day Years Used Date Smoking Tobacco: Never Assessed Sex Assigned at Date Recorded Not on file documented as of this encounter Medications at Time of Discharge Medication Sig Dispensed Refills Start Date End Date ATENolol (AKA TENORMIN) Take 1 tablet by mouth 90 3 01/15/2004 25 MG tablet daily (every 24 hours). atorvastatin (AKA Take 1 tablet by mouth 90 3 2003 LIPITOR) 40 MG tablet daily (every 24 hours). LW Addl Instr:Indicated for: High Cholesterol ranitidine (AKA ZANTAC) Take 1 tablet by mouth 90 3 07/05/2004 300 MG tablet at bedtime as needed. LW Addl Instr:Indicated for: Acid Reflux documented as of this encounter Procedure Notes Julius Andersen MD - 09/29/2004 12:01 AM CST Procedures signed by Julius Andersen MD at 09/29/04 1525 Author: Julius Andersen MD Service: (none) Author Type: Physician Filed: 01/07/11 0158 Note Time: 09/29/04 1445 Status: Signed Building Construction Engineer: Julius Andersen MD (Physician) Patient Name: Shu Oliva Procedure: Colonoscopy Indications: Personal history of colonic polyps Providers: Julius Andersen MD Referring MD: Judy Larsen MD Medicines: Fentanyl 100 mcg IV, Midazolam 2 mg IV Complications: No immediate complications Procedure: After I obtained informed consent, the scope was passed under direct vision. Throughout the procedure, the patient's blood pressure, pulse, and oxygen saturations were monitored continuously. The colonoscope [id number] was introduced through the anus and advanced to the cecum, identified by appendiceal orifice & IC valve. The colonoscopy was accomplished without difficulty. The patient tolerated the procedure well. The quality of the prep was good. Findings: A sessile polyp was found in the transverse colon. The polyp was 5 mm in size. Polypectomy was performed with a hot snare. Resection and retrieval were complete. Estimated blood loss was minimal. A sessile polyp was found in the sigmoid colon. The polyp was 2 mm in size. Biopsies were taken with a cold forceps for histology. A sessile polyp was found in the sigmoid colon. The polyp was 6 mm in size. Polypectomy was performed with a hot snare. Resection and retrieval were complete. Estimated blood loss was minimal. Impression: - One 5 mm polyp in the transverse colon. Resected and retrieved. - One 2 mm polyp in the sigmoid colon. This was biopsied. - One 6 mm polyp in the sigmoid colon. Resected and retrieved. Recommendation: - Await pathology results. - Repeat colonoscopy in 3 - 5 years for screening purposes. - There may be a risk of bleeding from the site of your polypectomy. To minimize this risk, please do not take aspirin or nsaids for two weeks. CPT4 Code(s): 39023, Colonoscopy, flexible, proximal to splenic flexure; with removal of tumor(s), polyp(s), or other lesion(s) by snare technique 81498, 51, Colonoscopy, flexible, proximal to splenic flexure; with biopsy, single or multiple ICD9 Code(s): 211.3, BENIGN NEOPLASM OF COLON V12.72, PERSONAL HISTORY OF COLONIC POLYPS The codes documented in this report are preliminary and upon surface mount technology operator review may be revised to meet current compliance requirements. Julius Andersen MD Signed Date: 09/29/2004 3:26 PM This document has been electronically signed. Note initiated on 09/29/2004 2:45 PM SSING MACHINE OPERATOR documented in this encounter Plan of Treatment Not on filedocumented as of this encounter Procedures Procedure Name Priority Date/Time Associated Diagnosis Comme nts SURGICAL PATH, PARK Routine 09/29/2004 4:16 PM Re sults for this NICOLLET RECESSING MACHINE OPERATOR procedure are i n the results section. documented in this encounter Results Pathology Report (09/29/2004 4:16 PM RECESSING MACHINE OPERATOR) [facility] gist Method Time Signature Surgical SEE TEXT No normal HP CONVERSION Pathology range Comment: Patient: SHU OLIVA ?S URGICAL PATHOLOGY REPORT Pathology # ??[id number] ?Date Obtained: ? Date Received: DIAGNOSIS: A) ??Transverse colon polyp, biopsy- ?1. ??Adenomatous polyp. ?2. ??No evidence of severe dysplas ia or invasive malignancy. B) ??Sigmoid colon polyp, biopsies- ?1. ??Hyperplastic polyp. ?2. ??No evidence of dysplasia or m alignancy. ?Jose Miller MD ?(electronic signature) MDM/MDM/dke Date of Report: 09/30/04 Pathology # ??[id number] ?Date Obtained: ? Date Received: ORGAN/TISSUE SITE: ?Transverse colon polyp/Sigmoid col on GROSS DESCRIPTION: A) ??Received in formalin is a polypoid fragment of pink-way soft tissue ?measuring 4 x 2 x 2 mm. ??Entirely submitted. B) ??Received in formalin are [address] soft tissue measuring ?2 and 3 mm in greatest dimension r espectively. ??Filtered and entirely ?submitted. MDM/kmr MICROSCOPIC DESCRIPTION: A-B)Microscopic examination performed. Specimen (Source) Anatomical Collection Method Collection Time Re ceived Time Location / / Volume Laterality 09/29/2004 4:16 PM RECESSING MACHINE OPERATOR Julius Andersen MD LAB_1 Performing Organization Address City/State/ZIP Code Phon e Number HP CONVERSION documented in this encounter Visit Diagnoses Not on filedocumented in this encounter Care Teams Aircrewman Relationship Specialty Start Date End Date Unassigned, Provider PCP - General 08/25/00 12/17/[address] [place] [address] documented as of this encounter
--- OUTSIDE RECORDS SUMMARY | 2022-04-27 03:00 | XMS_ITS | Encounter Summary ---
:1940 Author Organization [facility] Address [address] [place] [address] Care Team Providers Name Role Phone Judy Sorensen MD Primary Care Provider Encounter Details Date Type Department Care Team Description 11/02/2005 PN Conversion Only [place] [address] [place] [address] [place], [place] [address] (Wo rk) Social History Tobacco Use Types Packs/Day Years Used Date Smoking Tobacco: Never Assessed Sex Assigned at Date Recorded Not on file documented as of this encounter Plan of Treatment Not on filedocumented as of this encounter Procedures Procedure Name Priority Date/Time Associated Comments Diagnosis LIPID PANEL AND Routine 11/02/2005 8:19 AM Result s for this DIRECT LDL(IF WAGE ADJUSTER procedure are in NEEDED) the results section. CREATININE / GFR Routine 11/02/2005 8:19 AM Resul ts for this WAGE ADJUSTER procedure are i n the results section. AST Routine 11/02/2005 8:19 AM Results f or this WAGE ADJUSTER procedure are i n the results section. documented in this encounter Results AST (11/02/2005 8:19 AM WAGE ADJUSTER) [facility] Method Time Signature Aspartate 21 0 - 45 HP CONVERSION Aminotransferase U/L Specimen (Source) Anatomical Collection Method Collection Time Re ceived Time Location / / Volume Laterality 11/02/2005 8:19 AM WAGE ADJUSTER Judy Sorensen MD LAB_1 Performing Organization Address City/State/ZIP Code Phon e Number HP CONVERSION Creatinine / GFR (11/02/2005 8:19 AM WAGE ADJUSTER) P athologist Signature Creatinine 0.8 0.5 - 1.5 HP CONVERSION Serum mg/dL Specimen (Source) Anatomical Collection Method Collection Time Re ceived Time Location / / Volume Laterality 11/02/2005 8:19 AM WAGE ADJUSTER Judy Sorensen MD LAB_1 Performing Organization Address City/State/ZIP Code Phon e Number HP CONVERSION (ABNORMAL) Lipid Panel and Direct LDL(If Needed) (11/02/2005 8:19 AM WAGE ADJUSTER) Patholo gist Method Time Signature Cholesterol/HDL 2.8 No normal HP CONVERSION Ratio Screen range Cholesterol 196 <200 mg/dL HP CONVERSION HDL Cholesterol 71 (H) 40 - 60 HP CONVERSION mg/dL Triglycerides 119 0 - 149 HP CONVERSION mg/dL LDL Calculated 101 0 - 130 HP CONVERSION mg/dL Comment: Specimen (Source) Anatomical Collection Method Collection Time Re ceived Time Location / / Volume Laterality 11/02/2005 8:19 AM WAGE ADJUSTER Judy Sorensen MD LAB_1 Performing Organization Address City/State/ZIP Code Phon e Number HP CONVERSION documented in this encounter Visit Diagnoses Not on filedocumented in this encounter Care Teams Property Portfolio Officer Relationship Specialty Start Date End Date Judy Sorensen MD PCP - General 12/18/10 05/02/18 [address] [place] [address] documented as of this encounter
--- OUTSIDE RECORDS SUMMARY | 2022-04-27 03:00 | XMS_ITS | Encounter Summary ---
:1940 Author Organization [employer] Address [address] [place] [address] Care Team Providers Name Role Phone Judy Sorensen MD Primary Care Provider Encounter Details Date Type Department Care Team Description 09/21/2006 Office Visit [facility] Carlee Feldman MD [facility] ic [address] [place] [address] [place] [address] [phone] Social History Tobacco Use Types Packs/Day Years Used Date Smoking Tobacco: Never Assessed Sex Assigned at Date Recorded Not on file documented as of this encounter Progress Notes Carlee Gracia MD - 09/21/2006 12:01 AM CST Progress Notes signed by Carlee Gracia MD at 09/22/06 0737 Author: Carlee Gracia MD Service: (none) Author Type: Physician Filed: 01/07/11 1608 Note Time: 09/21/06 0001 Status: Signed Behavioral Health Tech: Carlee Gracia MD (Physician) NAME: SHU OLIVA MR#: [id number] ACCT: [id number] VISIT: [id number] DICTATING CLINICIAN: CARLEE GRACIA MD JOB: [id number] LOC: 3588 CLINIC PROGRESS NOTE DATE OF VISIT: 09/21/2006 SUBJECTIVE: Reason for Clinic Visit: Follow up in a patient who had severe aortobiiliac disease and who will require a bifemoral bypass next week. I once again just reviewed with her the procedure and reviewed with her the risks, benefits, and details including the risk of bleeding, infection, myocardial infarction, distal embolization, limb ischemia, renal insufficiency, and colonic ischemia. The patient is aware of the risks, benefits, and details. Is aware of the procedure incisions as well as recovery time. OBJECTIVE: ASSESSMENT: PLAN: We will see the patient in surgery next week. CC: JUDY GARCÍA MD JMM:[id number] C: 09/21/06 12:25 DOCUMENT: [id number] E SEINER documented in this encounter Plan of Treatment Not on filedocumented as of this encounter Visit Diagnoses Not on filedocumented in this encounter Care Teams Fiberglass Boat Builder Relationship Specialty Start Date End Date Judy Sornesen MD PCP - General 12/18/10 05/02/18 [address] [place] [address] documented as of this encounter
--- OUTSIDE RECORDS SUMMARY | 2022-04-27 03:00 | XMS_ITS | Encounter Summary ---
:1940 Author Organization [employer] Address [address], [place] [address] Care Team Providers Name Role Phone Judy Sorensen MD Primary Care Provider Encounter Details Date Type Department Care Team Description 07/20/2005 Nursing Visit [facility] [place] [address] [place] [address] [place] [phone] Social History Tobacco Use Types Packs/Day Years Used Date Smoking Tobacco: Never Assessed Sex Assigned at Date Recorded Not on file documented as of this encounter Plan of Treatment Not on filedocumented as of this encounter Visit Diagnoses Not on filedocumented in this encounter Care Teams Senior Producer Relationship Specialty Start Date End Date Judy Sorensen MD PCP - General 12/18/10 05/02/18 [address] [place], [place] [address] documented as of this encounter
--- OUTSIDE RECORDS SUMMARY | 2022-04-27 03:01 | XMS_ITS | Encounter Summary ---
:1940 Author Organization [employer] Address [address] [place] [address] Care Team Providers Name Role Phone Víctor Sorensen MD Primary Care Provider Encounter Details Date Type Department Care Team Description 09/05/2003 PN Conversion Only [place] Allergy Nurse, [facility] [address] [place], [place] [id number] Social History Tobacco Use Types Packs/Day Years Used Date Smoking Tobacco: Never Assessed Sex Assigned at Date Recorded Not on file documented as of this encounter Progress Notes Víctor Larsen MD - 09/01/2003 12:01 AM CST Progress Notes signed by Víctor Larsen MD at 01/17/04 1736 Author: Víctor Larsen MD Service: (none) Author Type: Physician Filed: 01/06/11 1703 Note Time: 09/01/03 0001 Status: Signed Belt Buckle Maker: Víctor Larsen MD (Physician) NAME: SHU OLIVA MR: [id number] ACCT: [id number] VISIT: [id number] DICTATING CLINICIAN: VÍCTOR LARSEN MD JOB: [id number] CLINIC PROGRESS NOTE DATE OF VISIT: 09/01/2003 SUBJECTIVE: Shu comes in for refills of her atenolol and Zocor that are used for treatment of hypertension and hyperlipidemia and also to discuss recommendations for smoking cessation and review concerns about the prior list of probable COPD diagnosis that she has not previously been aware of. When asked about a persistent cough today, she admits to an occasional to fairly regular smoker's cough but does not think she has a daily, productive cough or that she has had a productive cough most days for the last 6 months. She does get winded when she goes an extended duration of walking or tries to walk real fast, but does not feel it is out of keeping with her age. She gets no exertional chest pain. She is interested in smoking cessation but has not tried any particular product, and although no desire smoking cessation, feels it will likely be a very difficult task for her. She has not successfully quit in the past. Shu had discontinued Zocor in March because of a rash that was felt more likely to be due to some other issue. She has not tried to restart and wonders how she would go about restarting the medication. OBJECTIVE: VS: BP: 104/58. P: 68, regular. Wt: 124. Pleasant, normal-weight female in no distress. There is no use of accessory muscles with respiration. Her lungs sounds are clear. There is no barrel chest deformity. Heart sounds are normal. S1, S2. No murmurs. Regular rate and rhythm. Review of lab and x-ray: I do not have prior spirometry data available. Her previous chest x-rays have not commented on emphysematous or classic COPD changes. ASSESSMENT: Hypertension. Hyperlipidemia. History of intermittent reflux. Longstanding tobacco abuse with possible COPD. Her prior comment of probable COPD was based on her chronic cough history, which seems to be less an issue at this time. She does have a mild upper respiratory infection now and had nasal hyperemia but otherwise normal finding as noted. PLAN: Will continue the atenolol 25 mg with blood pressure well within target range. Reviewed the use of Zyban and Nicorette gum or Nicotrol, Nicoderm-type products for smoking cessation as well as giving the patient the Tobacco Help Line phone numbers available and other resources for tobacco cessation. Strongly emphasized the need to quit smoking. We will check spirometry to document whether there are objective findings consistent with COPD. Reviewed the important of tobacco cessation in preventing COPD or in managing COPD, if it is confirmed. If it is not confirmed, she requests a letter to her potential life insurance product correcting that information. She has asked to use 2 of her Zocor tablets once a day for 2 days, discontinue for 1 week watching for redevelopment of rash. If there is no more than her current itchy patch in her mid back at the end of that time, would have her restart it once daily therapy. Checking a cholesterol fractionation, AST, and ALT in 3 months. TT: CT: [facility]:[id number] C: 09/03/03 07:44 DOCUMENT: [id number] Phone Note, Clinician - 02/13/2003 12:01 AM CDT Phone Note filed by Clinician Phone Note at 01/04/11 112 Author: Clinician Phone Note Service: (none) Author Type: Resource Filed: 01/04/11 1122 Note Time: 02/13/03 0001 Status: Signed Belt Buckle Maker: Clinician Phone Note (Resource) TO: VÍCTOR LARSEN FROM: SRIKANTH ZAMBRANO LPN [id number] * PROVIDER MESSAGE: ROUTINE * 02/13/03 08:28AM * *WITHIN 4 HOURS * MESSAGE: PLS ADVICE * HOME PHONE:[phone] * SUBJECTIVE: * CONTACT PHONE:[phone] * CHIEF CONCERN... Kayleen IS CALLING, STATES SHE SAW YOU ON OF THIS WEEK, YOU ADVICED HER TO TAKE BENADRYL. sHE HAS TAKEN 11 OF THEM SINCE MONDAY AND THEY ARE SPREADING. SHE HAS THEM IN HER MOUTH, AROUND HER EYES AND EARS. SHE DISCRIBES THEM 'HIVE-LIKE_' SHE WANTS TO KNOW IF SHE SHOULD COME IN OR IS THERE SOMETHING ELSE SHE CAN DO . SHE WOULD LIKE TO TALK TO YOU. ALLERGIES/SENSITIVITIES... KNA 03/01/99 CURRENT MEDICATIONS... Asprin 325 mg po qd; Atenolol 50 mg po qd; Zocor 10 mg po qd; 03/01/99 PERTINENT PAST HISTORY... 03/01/99 WEIGHT: ASSESSMENT: RE ALLERGIC REACTION PLAN: DISPOSITION: NO DISPOSITION GIVEN CALL BY SRIKANTH ZAMBRANO LPN 02/13/2003 08:24AM [id number] ADDENDUM: <> 02/13/2003 09:43AM by AYESHA MANSFIELD LPN: Per Dr. Larsen a Prescription for a Medrol Dose Pack, take as directed, was called to patient's pharmacy ([facility] at [phone]). Patie nt contacted by Dr. Larsen. Víctor Garay MD - 02/11/2003 12:01 AM CDT Progress Notes signed by Víctor Larsen MD at 06/02/03 1613 Author: Víctor Larsen MD Service: (none) Author Type: Physician Filed: 01/06/11 1349 Note Time: 02/11/03 0001 Status: Signed Belt Buckle Maker: Víctor Larsen MD (Physician) NAME: SHU OLIVA MR: [id number] ACCT: [id number] VISIT: [id number] DICTATING CLINICIAN: VÍCTOR LARSEN MD JOB: [id number] CLINIC PROGRESS NOTE DATE OF VISIT: 02/11/2003 SUBJECTIVE: Shu comes in with hives, swelling in thee lower lip, itchiness over her hairline, particular itchiness in the pubic area. She is a little light headed from nausea. This all started yesterday. She is here on the Monday weekend. On Monday she was at a [employer], ate some buffalo wings that are unusual for her, and some wontons that she does not typically eat. Symptoms started yesterday with slight itchiness, but this morning her eye swelling was quite alarming to her. Denies any fever, sweats, chills. Denies any respiratory distress. She has not had nausea or vomiting. She has never had a similar reaction in the past. ALLERGIES: NONE KNOWN DRUG ALLERGIES. MEDICATIONS: Atenolol 25 mg daily, Zocor 40 mg daily, and Ranitidine was started two weeks ago at 300 mg daily. She does use a half pack to one pack per day of tobacco. She has been able to sleep, although sometimes wakes up scratching. OBJECTIVE: VS: BP: 168/80. P: 76 regular. W: 125. No belabored breathing. There is a little bit of edema of the lower lip. Lungs: Clear to A and P. Neck: Supple without adenopathy or thyromegaly. There is no palatal swelling noted on pharyngeal exam. She has diffuse hives. ASSESSMENT: Hives, uncertain cause. PLAN: Benadryl is advised. Suggest she hold all of her medications except the atenolol. We reviewed the symptoms which would suggest need for an urgent or emergency room visit. Particularly sensation of throat closing, or posterior pharyngeal swelling, or respiratory distress. Continue looking for possible causes if she is not responding to discontinuing the medications within three to four days would restart one at a time. Zocor first, Ranitidine second. TT: CT: [facility]:[id number] C: 02/21/03 04:58 DOCUMENT: [id number] Víctor Larsen MD - 10/16/2002 12:01 AM CST Progress Notes signed by at 10/23/02 0950 Author: Víctor Larsen MD Service: (none) Author Type: Physician Filed: 01/06/11 1144 Note Time: 10/16/02 0001 Status: Signed Belt Buckle Maker: Víctor Larsen MD (Physician) IMPRESSION: Unintended weight loss. Left mid arm pain. SUBJECTIVE: Shu is a 61-year-old who comes in because of unexplained perceived weight loss. She had thought that she weighed 138 pounds at her physical last summer. Our record shows 134. At [place], she stepped on her home scale and found she was only 122 pounds, which was quite surprising to her as she has not been trying to lose weight. Her family was quite concerned and encouraged her to schedule an evaluation. She has since been trying to eat more high calorie foods and also larger portion sizes and, in fact, has gained another four pounds back. She has had pain in the left mid humerus, in the left medial scapular area that radiates through to the chest, that is persistent, nonexertional. She describes each of these areas as a discomfort. She is not able to rate this on a pain scale, particularly in the scapular region. It is almost more like an itch or a slight burning sensation that is deep. She has not found an area of tenderness. It does not hurt to use her arm, including no pain with overhead use. She feels that, if she is real busy or involved with something, she is likely to be unaware of the pain, and that is about the only time that it is gone. It does not keep her awake or awaken her from sleep at night. She did comment about this pain last summer and had a normal chest x- ray at the time. She believes it is more uncomfortable currently than it was at that time. Her cough continues to be episodic, nonproductive about 50% of the days, and she continues to smoke half to one pack of cigarettes per day. She may go several days without smoking, but has not been able to keep away from the cigarettes entirely. She is now switched the Aciphex to just p.r.n. use. It controlled her reflux symptoms very well. She has learned to avoid certain foods, which bother her whether she uses Aciphex or not. She is not currently using much of the ranitidine, although she has a prescription available. She is just about out of her Aciphex. No current dyspepsia or dysphagia. She has had no abdominal pain, no change in bowel habits, no nausea. She denies any heat or cold intolerance, no tremor. At times at night, she will awaken feeling like she has not been breathing right or breathing well, yet not specifically short of breath. She does not have to sit up. She simply has to kind of shake myself out of it, and then she is back to breathing comfortably and can fall back asleep again. She says it is not quite a startle during the night, but somewhat similar to a startle response. She has never needed to sit up at the side of the bed or felt dyspneic. No dependent edema. No fever, sweats or chills. MEDICATIONS: Atenolol 25 mg once daily, Zocor 40 mg daily, p.r.n. Aciphex or p.r.n. ranitidine. ADR/ALLERGIES: NONE KNOWN. OBJECTIVE: VS: BP: 110/78. P: 68, regular. Wt: 126. Well-appearing 61-year-old in no distress. SKIN: Solar aging, otherwise is normal without rashes. There is no tenderness or rash over the back. No spasm noted in the periscapular area. There is mild increased tone, left trapezius greater than right. She has full range of motion of the neck, full range of motion of the left shoulder and elbow without pain. Normal DTRs. Normal radial, ulnar and brachial pulses. No palpable tenderness over the deltoid bursa. No tenderness of the biceps, although it is the mid biceps region that she describes as having pain. There is no chest wall tenderness. HEART SOUNDS: Normal, S1, S2. No murmurs. Regular rate and rhythm. No pericardial or pleural friction rub. LUNGS: Clear to A&P. ABDOMEN: Nontender with no masses. X-ray of the left humerus is normal, although it appears to have some spurring at he AC joint. ASSESSMENT: Unintended weight loss. Left mid arm pain. PLAN: Bone scan to confirm there is no bony abnormality to cause this low-grade pain that is accelerating. EKG was obtained, because she has active left anterior chest pain. This appears completely normal and unchanged from in the past. ABC, calcium, phosphorus are ordered. I also suggest a screening DEXA scan because of lack of HRT. She may continue the p.r.n. Aciphex to manage symptoms. She may use ranitidine in its place p.r.n. If ranitidine is not sufficient to control symptoms, will then give her a re-supply of Aciphex. Will have her monitor her weight at home. Consider orthopedic evaluation if the pain in the left humerus is persistent. By our documentation, she has currently dropped eight pounds from her weight last summer, with a recent history of regaining at least four. She has a suspicion she lost weight because of stress issues, that she simply was not eating as much; and if this evaluation is unremarkable and she is able to then maintain her weight, that would be the most likely underlying scenario. Recheck if weight loss resumes. TT: CT: [facility]:[id number] C: DOCUMENT: [id number] LIANCE COUNSEL Anton Burt MD - 08/06/2002 12:01 AM CST Progress Notes signed by at 11/09/02 0001 Author: Anton Burt MD Service: (none) Author Type: Physician Filed: 01/06/11 1007 Note Time: 08/06/02 0001 Status: Signed Belt Buckle Maker: Anton Burt MD (Physician) IMPRESSION: Bronchitis. SUBJECTIVE: Chief Complaint: Cough. HPI: A 61-year-old woman, cigarette smoker, ill with URI symptoms one month and a cough which is productive of sputum which is yellow in color. REVIEW OF SYSTEMS: Denies fever, chills, chest pain, shortness of breath. PAST MEDICAL HISTORY: Cigarette smoker, hypertension, hyperlipidemia. CURRENT MEDICATIONS: Include Zocor, atenolol and ranitidine. ADR/ALLERGIES: NONE. OBJECTIVE: VS: BP: 101/53. T: 98.5. P: 71. R: 16 per minute. Alert, not in distress. HEENT examination is unremarkable. NECK: Supple, no adenopathy. CHEST: Clear to auscultation. HEART SOUNDS: S1, S2 are normal, regular rate and rhythm. Chest x-ray negative. ASSESSMENT: Bronchitis. PLAN: Because of duration of symptoms, patient will be treated with a course of Zithromax. If not improved over a 10-day course, patient will recheck with primary MD. TT: CT: [facility]:[id number] C: 08/06/02 21:49 DOCUMENT: [id number] Víctor Garay MD - 02/18/2002 12:01 AM CDT Progress Notes signed by Víctor Larsen MD at 03/05/02 1029 Author: Víctor Larsen MD Service: (none) Author Type: Physician Filed: 01/06/11 0609 Note Time: 02/18/02 0001 Status: Signed Belt Buckle Maker: Víctor Larsen MD (Physician) IMPRESSION: Annual well exam. Atherosclerotic vascular disease with SUBJECTIVE: Shu is a 61-year-old who comes in for well exam. She has a history of hypertension, peripheral vascular disease, as well as coronary artery disease involving the distal circumflex, hyperlipidemia and history of tobacco abuse. Currently smoking 1/2 to 1 pack per day. She has chronic obstructive lung disease, GE reflux disease and has had a benign colon polyp. SURGICAL HISTORY: Tubal ligation in 1972, endoscopy upper GI 1999, angiography 1999. MEDICATIONS: Atenolol 50 mg daily, Zocor 40 mg daily, Aciphex 20 mg daily. She is not taking aspirin. ADR/ALLERGIES: NONE KNOWN. SOCIAL HISTORY: , grown children. 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 FAMILY HISTORY: Unchanged from 1999. Most significantly osteoporosis in mother and grandmother who at 77 or 91 respectively. Father alcoholic and of related illness. HABITS: Tobacco 1/2 to 1 pack per day. Caffeine, several cups of coffee per day. Alcohol, three to four drinks per week. No programmed exercise. She does try to follow a low-fat diet, but thinks she could do better. REVIEW OF SYSTEMS: She has a chronic daily cough with episodic sputum that has lasted greater than six months. Notes pain near the left shoulder blade for a few months that has persisted, low- grade in nature, usually a 2 to 4 out of 10. Also one week ago noted a scant amount of fresh-looking blood on her underwear in the area of the rectum and some scant amount of blood on toilet paper that was not vaginal, not urinary, so she assumes was rectal. The stool appeared normal, not dark. She did have an old history of an anal fissure, but has not had any rectal pain. She can have a somewhat constipated stool, but without any recent significant change. She has had some increasing night sweats in the past six months. Has not had exertional chest pain. Denies any unexplained weight loss. Nutrition screen is negative. She will get intermittent low-back and lower abdominal crampy, occasionally sharp pain of low grade. She does not rate it on a pain scale. Night sweats are relatively mild, not soaking the sheets. Appetite has been normal. Reflux symptoms well- controlled. No significant abdominal bloating or distention. Denies any hemoptysis, hematuria, claudication symptoms are stable and involve a fairly brisk walking or going up stairs. This limits her activity to the extent that she feels she would not notice any lung problems. She denies dyspnea on exertion, orthopnea or PND. Denies dependent edema. OBJECTIVE: VS/GEN: BP: 122/82. P: 72 and regular. Ht: 5 feet. Wt: 134 lb. A 61-year-old woman with some facial sun damage appearing approximately at or slightly older than stated age of 61. HEENT: Funduscopic exam normal. PERRL, EOMs full. Conjunctivae were clear. Oropharynx no lesions. Nasal mucosa, no specific lesions. TMs and canals normal. NECK: Supple, no adenopathy, thyromegaly or masses. BREASTS: Normal to inspection and palpation. LUNGS: Clear to A&P. Somewhat distant breath sounds. CV: S1 and S2, no murmurs. Regular rate and rhythm. Peripheral pulses slightly decreased in the dorsalis pedis and posterior tibial at trace to 1+. ABD: Soft, nontender, no masses or organomegaly. No distention. Normal bowel sounds. REPORTING COORDINATOR: Pelvic exam: Normal EGBUS, vaginal vault and cervix. Bimanual exam gives minimal degree of adnexal tenderness bilaterally. Urine fundus is normal in size, position and mobility. Rectovaginal Exam: There is a small area of irritation that appears to be a recently healed fissure. Digital rectal exam is normal without tenderness. No masses. Normal tone. LYMPH: Nodes, negative cervical, axillary and inguinal. SKIN: No malignant appearing lesions. Minimal freckling on the back. Mainly premature wrinkling of the face as sun damage evident. EXTREMITIES: There is scant amount of hair growth on the dorsum of the toes and lower extremities. MUSCULOSKELETAL: There is an area of focal spasm of the lower rhomboid muscles between the scapula and the spine to palpation. No other abnormalities noted. She has full range of motion of the left shoulder. Degree of spasm is quite mild and is not associated with tenderness. Straight leg raise is normal bilaterally. Hips are slightly decreased range of motion bilaterally, but not without significant tenderness. ASSESSMENT: 1. Annual well exam. 2. Atherosclerotic vascular disease with peripheral vascular disease, coronary artery disease in the distal circumflex, stable symptomatically. 3. Hyperlipidemia controlled. 4. Hypertension controlled. 5. GE reflux disease, controlled. 6. History of colon polyps. 7. Ongoing tobacco abuse. 8. Probable chronic obstructive lung disease. 9. New onset night sweats. 10. Recent anal fissure, healed. PLAN: Screening will be done including Pap, mammogram and cholesterol, creatinine and glucose are done to follow the underlying vascular disease and rule out additional complications such as diabetes. Two-view chest for evaluation of the night sweats, COLD and left scapular pain. Sed rate and CBC for same indication and pelvic ultrasound regarding the mild pelvic and abdominal cramping and discomfort on exam. She is advised to discontinue smoking. We reviewed smoking cessation techniques. She is not interested at this time in the Zyban therapy, but may be in the future. She has no history of seizure disorder as a contraindication. We will attempt to change her Aciphex to ranitidine at 300 mg at h.s. She is warned that she may have a brief hyperacidity reaction and that if persists beyond two weeks or reflux symptoms recur, we will revert back to the Aciphex. Decrease atenolol dose from 50 to 25 mg daily to see if we can reduce the peripheral vascular disease symptoms. Consider other measures for management and/or vascular workup in the vascular lab if increasing. Currently she is doing her day to day activities without disabling symptoms and is not interested in further evaluation at this point. TT: CT: [facility]:[id number] C: DOCUMENT: [id number] Víctor Larsen MD - 12/09/1999 12:01 AM CST Progress Notes signed by Víctor Larsen MD at 12/10/99 1222 Author: Víctor Larsen MD Service: (none) Author Type: Physician Filed: 01/05/11 1519 Note Time: 12/09/99 0001 Status: Signed Belt Buckle Maker: Víctor Larsen MD (Physician) IMPRESSION: Health maintenance examination. History of gastroesophageal reflux disease, not completely controlled with Aciphe SUBJECTIVE: This 58-year-old comes in for a health maintenance exam. She has had a previous angiogram subsequent for a hospitalization for angina in December of 1998. At that time her coronary anatomy was found to include a plaque area on the distal circumflex. Her right main and LAD were within normal limits. She has hyperlipidemia, hypertension. She notes that occasionally her right foot feels cold but her cannot tell a temperature difference. She does not have claudication. She has had some heartburn symptoms with reflux type symptomatology that is not perfectly controlled with the previous Prilosec or current Aciphex 20 mg a day. She has taken that for approximately one year. Had an upper GI in February of 1999 that showed a very small sliding hiatal hernia with 2 episodes of distal reflux and some nonspecific duodenal bulb folds without other specific abnormalities noted. She had quit smoking for 3 months. Following what she feels reassurance about her coronary anatomy and the identification of her chest discomfort as primarily GI related she started having an occasional cigarette and now is back to smoking a half pack per day. She is very interested in quitting once again but states she has severe cravings for tobacco. She is interested in trying to get off some of her medications. Has questions about the need for continued use. She does not get much milk in her diet, is not supplementing calcium and is not taking aspirin. Mother and grandmother had osteoporosis. Mother at 77, grandmother at 91. Father she believes of alcohol related illness at 55. No other significant family history. Children are grown. 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 is working with stable financial base although early fpc is out of the question financially. She complains of dry mouth, particularly at night. She does have some dryness of the skin. Does not have any peripheral edema. No change in hair texture that she has recognized. Denies polydipsia or polyuria. No bone pain. She denies any angina, no dyspnea on exertion, no orthopnea or PND. Denies peripheral edema. Denies claudication. She is not having any persistent abdominal pain but does have the episodes of episodic heartburn. She finds Maalox can help when that occurs. She has no past history of rheumatic fever. SURGERY: Tubal ligation. MEDICATIONS: Atenolol 50 mg, Zocor 10 mg, Aciphex 20 mg. ALLERGIES: NONE. ALCOHOL: Three to four drinks a week. CAFFEINE: Two and a half cups of coffee today. TOBACCO: One- half pack per day. No regular exercise. OBJECTIVE: BP: 130/80. Ht: 5' 1/4 which is stable. Wt: 138. A petite, pleasant 58-year-old who appears in overall good health, no distress. Skin is without malignant change. No venous stasis changes. Extremities, back and chest are normal in overall appearance. TMs within normal limits. Nasal exam without mucosal lesions. Pharynx normal with normal dentition. Fundi normal without AV nicking. Sclerae are clear. Neck supple, no adenopathy, thyromegaly or masses. Lungs clear to A and P. CORONARY: S1, S2, there is a systolic crescendo murmur at the apex, left fifth inner space, midclavicular line that does not radiate, grade I-II/. No carotid or femoral bruit, however, right femoral pulse is mildly decreased compared to left. Right dorsalis pedis a little better than 1+ but decreased compared to left which is 2+. Posterior tibialis appears equal. No change in temperature. Skin is in good condition. There is hair present on the toes in the normal pattern. BREASTS: Normal to inspection and palpation. NODES: Negative cervical, axillary and inguinal. ABDOMEN: Soft, nontender, no masses or organomegaly. GENITALIA: Normal EG, BUS, vaginal vault and cervix with mild atrophic appearance of the vaginal vault; small anti-flexed uterine fundus with normal mobility, no nodularity or masses. The adnexae are without masses. Rectovaginal exam is normal without palpable lesions. ASSESSMENT: Health maintenance examination. History of gastroesophageal reflux disease, not completely controlled with Aciphex. Hyperlipidemia. Hypertension. Distal atherosclerotic vascular disease. New murmur. PLAN: Will check glucose because of a grandmother with diabetes and her current artery disease needing early identification of diabetes should it develop, TSH because of the dry skin. She will be referred for upper GI endoscopy. If that is unremarkable would then try to wean her from the Aciphex onto ranitidine and hopefully eventually a p.r.n. antacid. Echocardiogram for the new murmur. Mammogram, Pap, cholesterol fractionation and AST, LBC and with the radiology report of a year ago they suggested a potential abnormality that is associated with low protein level so will check a protein and albumin in regards to the dyspepsia and episodic substernal pain. She will avoid foods that tend to worsen symptomatology. Follow up hypertension and hyperlipidemia in 6 months. She is wondering if she gets good exercise, quits smoking and loses some weight whether she can go off of her antihypertensive and antihyperlipidemia therapy. With identified coronary artery disease and a goal LDL below 100 I do not think it is realistic to get off the Zocor in the near future and I think it would be risky to do so. Atenolol, however, may be tolerated with adequate blood pressure control at a slightly lower level but would be needed to be monitored carefully if we were to change. Suggested a baby aspirin once daily, 1500 mg of calcium with 800 mg of vitamin D. She is given a prescription for Zyban 150 mg times 3 days, then b.i.d. for help with smoking cessation which she may or may not decide to fill. She has no past history of seizure disorder. Advised regular weightbearing exercises for prevention of osteoporosis and improvement of cardiovascular risks. [facility]:[id number] C: DOCUMENT: [id number] LIANCE COUNSEL Dee Burt MD - 10/28/1999 12:01 AM CST Progress Notes signed by Dee Burt MD at 02/28/00 1012 Author: Dee uBrt MD Service: (none) Author Type: Physician Filed: 01/05/11 1441 Note Time: 10/28/99 0001 Status: Signed Belt Buckle Maker: Dee Burt MD (Physician) IMPRESSION: Ceruminosis. Otitis media. SUBJECTIVE: See today's URI form. OBJECTIVE: N/A ASSESSMENT: Ceruminosis. Otitis media. PLAN: Ear lavage. Jesus QUEZADA. CAM:[id number] C: DOCUMENT: [id number] Conversion, [facility] - 03/01/1999 12:01 AM CDT Phone Note signed by at 03/01/99 0748 Author: Alisa Rolle Service: (none) Author Type: (none) Filed: 01/05/11 1048 Note Time: 03/01/99 0001 Status: Signed Belt Buckle Maker: Alisa Rolle IMPRESSION: Requesting call from Dr. Larsen TO: VÍCTOR LARSEN FROM: ISAURA CÁRDENAS RN [phone] * PROVIDER MESSAGE: RETURN * 03/01/1999 07:48AM * CALL REQUESTED * MESSAGE: Requesting call * HOME PHONE: [phone] * SUBJECTIVE: * CONTACT PHONE: [phone] * CHIEF CONCERN... Patient * hSu Oliva * calling, requesting a call * PHARMACY: [phone] * from Dr. Larsen. Patient * [facility] * received her letter of explanation of her Upper GI Series. In the letter it stated to finish prescription medication that you were given. She wasn't given a prescription. ALLERGIES/SENSITIVITIES... KNA 03/01/99 CURRENT MEDICATIONS... Asprin 325 mg po qd; Atenolol 50 mg po qd; Zocor 10 mg po qd; 03/01/99 PERTINENT PAST HISTORY... 03/01/99 WEIGHT: Not Available PATIENT IS NOT ; PATIENT IS NOT NURSING; ASSESSMENT: Requesting call from Dr. Larsen PLAN: COMMENTS...Message sent to provider. DISPOSITION: NON-URGENT RECOMMENDED THE FOLLOWING... Call taken by ISAURA CÁRDENAS RN [phone] 03/01/1999 07:44 AM ADDENDUM: Víctor Garay MD - 02/16/1999 12:01 AM CDT Progress Notes signed by Víctor Larsen MD at 03/02/99 1781 Author: Víctor Larsen MD Service: (none) Author Type: Physician Filed: 01/05/11 1034 Note Time: 02/16/99 0001 Status: Signed Belt Buckle Maker: Víctor Larsen MD (Physician) IMPRESSION: Chest pain, possible reflux, atherosclerotic vascular disease, hyperlipidemia. SUBJECTIVE: A 58-year-old has had a recent cardiac evaluation and has had intermittent continuing chest or substernal discomfort. Her cardiac evaluation culminated in an angiogram that showed some extreme distal vessel disease of the left anterior descending that was considered a nonsurgical problem. She comes back now for further management and evaluation. MEDICATIONS: Atenolol 25 mg b.i.d.; aspirin one daily; Zantac 300 mg a day. SOCIAL HISTORY: She quit tobacco in December of 1998. She is still battling the craving. REVIEW OF SYSTEMS: She has had upper body weakness, slight headache intermittently, buzzing sensation in her head, mild mid back pain, feels like swelling and numbness in her left arm, tongue, and lips, and it can feel like there is something sticking in her throat, and at the same time will have her left ear feeling a little plugged. She does not know how much of this is her nerves, and how much is a physical abnormality. She gets a pain in the epigastrium. It goes straight from her stomach to her neck. It can worsen with position changes. One day last week felt very weak and slept most of the day. Occasionally can feel a tingling sensation in her left face, and can get a full head or congested head feeling, and a sensation of something in her throat that she agrees could well be postnasal discharge. OBJECTIVE: BP1: 128/70. Wt: 139 pounds. Heart sounds are normal. Lungs are clear to auscultation and percussion. There is mild tenderness in the epigastrium. Her recent cholesterol fractionation showed a significantly elevated LDL cholesterol. ASSESSMENT: Chest pain, possible reflux, atherosclerotic vascular disease, hyperlipidemia. PLAN: We will do an upper gastrointestinal, if she has gastroesophageal reflux disease we will switch from Zantac to Prilosec 20 mg a day. AST is obtained. She is given information on low-fat, low- cholesterol diet, and we will initiate Zocor 10 mg daily with a goal LDL of less than 100. We have a 50% reduction to achieve, so we did not initiate Pravachol therapy. She is also given information on coronary artery disease. Continue the aspirin and atenolol. Follow up in six weeks to three months. [facility]:[id number] C: DOCUMENT: [id number] Derek Schultz MD - 02/10/1999 12:01 AM CDT Progress Notes signed by Derek Schultz MD at 06/17/99 0950 Author: Derek Schultz MD Service: (none) Author Type: Physician Filed: 01/05/11 1030 Note Time: 02/10/99 0001 Status: Signed Belt Buckle Maker: Derek Schultz MD (Physician) IMPRESSION: Probably noncardiac discomfort. SUBJECTIVE: Shu Oliva is a 58-year-old woman [id number], she had some pain in her chest that felt like something was stuck in her throat. She called the answering service and they told her to take two nitro. She felt better and she then had something to eat. She could not get into see her primary care and so came to the cardiology clinic. She does not have anything that sounds like classic angina pectoris. No palpitations, dizziness, symptoms of congestive heart failure, no shortness of breath. She was hospitalized approximately one month ago. At that time she had severe pain that was thought not to be cardiac. She was started on Zantac 300 q.day. She also takes atenolol 50 per day and an aspirin per day. She did have coronary arteriography showing normal left ventricular function with a single vessel disease and a distal circumflex lesion about 70 percent. She stopped smoking in the last month. OBJECTIVE: BP: 150/80. When she was admitted last month it was 200/110. Carotid upstrokes are normal. No carotid bruits. Thyroid and nodes are negative. Lungs clear. Heart: No murmur, gallop or rub. Abdomen is soft and nontender. Chest wall is nontender. There is no peripheral edema, cyanosis or clubbing. Her voice is a little husky, probably related to cigarette use. Electrocardiogram today is entirely normal with a heart rate of 54. ASSESSMENT: 1. Probably noncardiac discomfort. 2. Essentially single vessel coronary artery disease with normal function, stable with beta blockers and aspirin. PLAN: 1. The patient had her lipids drawn this morning and has an appointment with Dr. Larsen next Monday. She may need treatment. 2. She has multiple complaints over the last couple of weeks of trouble sleeping, facial pain, chronic left arm discomfort, increased burping, etc. She may need further gastrointestinal work up and possible anxiolytic. 3. I will be glad to see her on a p.r.n. basis if cardiac symptoms are suspected. stg Víctor Larsen MD - 01/18/1999 12:01 AM CDT Progress Notes signed by Víctor Larsen MD at 02/23/99 2113 Author: Víctor Larsen MD Service: (none) Author Type: Physician Filed: 01/05/11 1005 Note Time: 01/18/99 0001 Status: Signed Belt Buckle Maker: Víctor Larsen MD (Physician) IMPRESSION: Stable angina, early upper respiratory infection, gastritis. SUBJECTIVE: Shu comes in for follow-up of her unstable angina. She was admitted to [facility] on January 01. Had symptoms highly suggestive of heart disease, but a negative rule out myocardial infarction and was transferred for angiography to [facility] where a single lesion of 80% blockage was found. I do not have results available at today's visit. By her description, it sounds like it is most likely a more distal left anterior descending lesion. She was discharged on Atenolol 25 mg daily. She is having some degree of fatigue or lightheadedness about half an hour after taking the Atenolol. Getting heartburn after eating. Some discomfort still into the left arm. It is not clear whether it is radiating pain or a bursitis which she has some discomfort from in the upper arm. She is starting to develop a sore throat now as well. She has had a cough for about 3 days. has a upper respiratory infection. She has been taking aspirin once daily. Allergies: none known. Tobacco: she quit as of the incident. Is finding it somewhat difficult. She is irritable, but has not used tobacco for 2 weeks. OBJECTIVE: Blood pressure: 140/74. Weight: 139. This is a 58-year-old in no acute distress. Lungs are clear. Heart sounds are normal. There is no significant chest wall tenderness. There is mild epigastric tenderness. ASSESSMENT: 1. Stable angina. 2. Early upper respiratory infection. 3. Gastritis. PLAN: Zantac 150 mg b.i.d. Atenolol increase to 25 mg b.i.d. as she is still getting some of her symptoms not necessarily all exertional, but at times when exercising will get some discomfort. Reviewed treatment of upper respiratory infection without decongestants. Continue aspirin once daily. Atenolol 25 b.i.d., Zantac 150 b.i.d. Rapid strep was done and is negative. Cholesterol fractionation and AST to be done in the near future fasting. Last LDL was listed 151, total of 219 and HDL 49, triglycerides normal. [facility]:[id number] C: DOCUMENT: [id number] Paige Gardner MD - 12/30/1998 12:01 AM CDT Progress Notes signed by at 05/22/99 1508 Author: Paige Gardner MD Service: (none) Author Type: (none) Filed: 01/05/11 0946 Note Time: 12/30/98 0001 Status: Signed Belt Buckle Maker: Alisa Conversion IMPRESSION: Unstable angina. SUBJECTIVE: Shu [place]ctors[place]. Patient is a 58-year-old woman who presents with a 2 hour history of substernal chest pain with radiation up into the neck and left shoulder and arm. She is experiencing some numbness in the areas of radiated pain. She has no cardiac history. She does smoke but has no other known cardiac risk factors. She rates her pain a 4 out of 10, associated with some shortness of breath, no nausea or sweating. She has been having the same kind of chest pressure intermittently for the past 48 hours. At this time the pressure is persistent and causing her concern. She takes an aspirin every other day. No known drug allergies. OBJECTIVE: T: 97.7. P: 92. R: 20. BP: 200/110. In general, she appears anxious and to be uncomfortable. She is on lead 2 of the panel monitor and appears to be in normal sinus rhythm. She was started on oxygen at 3 liters per minute by nasal cannula. O2 saturation on room air was 97 percent. 12 lead electrocardiogram shows a normal sinus rhythm with no ST segment changes. Intravenous access was obtained. She was given one sublingual nitroglycerin tablet which relieved the chest pressure over the first five minutes but did not relieve the neck, jaw or arm pain. She was given an additional sublingual nitroglycerin which was having some effect on her other pain. She was given 400 mg of children's chewable aspirin. ASSESSMENT: Unstable angina. PLAN: The patient was transported to [facility] to be under the care of Dr. Welch, Family Medicine. She was in stable condition when she left with the paramedics. stw Sunil Grayson MD - 06/10/1998 12:01 AM CDT Progress Notes signed by Sunil Ansari MD at 09/03/98 1250 Author: Sunil Ansari MD Service: (none) Author Type: Physician Filed: 01/05/11 0616 Note Time: 06/10/98 0001 Status: Signed Belt Buckle Maker: Sunil Ansari MD (Physician) IMPRESSION: Possible polyp at 15 cm. behind valve of [place]. SUBJECTIVE: Ms. Oliva comes in for a flex sig for screening purposes. OBJECTIVE: Flexible sigmoidoscope inserted and advanced to 45 cm. At this point, the scope would not advance further without pain so reached maximum at 45 cm. When withdrawing the scope, observed the lumen. At approximately 15 cm. behind one of the valve of [place], I think I saw the top of a polyp, but on further maneuvering, I could not get a better view of this area to confirm whether it is a polyp or merely a prominence of the mucosal fold. The rest of the lumen to 45 cm. appeared normal. ASSESSMENT: Possible polyp at 15 cm. behind valve of [place]. As I was unable to get an adequate view of the area, I am not sure whether there is a polyp or to take a biopsy. PLAN: Recommended colonoscopy for further evaluation. [id number] LIANCE COUNSEL Víctor Larsen MD - 05/26/1998 12:01 AM CDT Progress Notes signed by Víctor Larsen MD at 06/07/98 1333 Author: Víctor Larsen MD Service: (none) Author Type: Physician Filed: 01/05/11 0601 Note Time: 05/26/98 0001 Status: Signed Belt Buckle Maker: Víctor Larsen MD (Physician) IMPRESSION: Tobacco abuse. Persistent cough. Screening Pap smear. SUBJECTIVE: Shu Oliva is a 57-year-old who comes in for a Pap smear. She recently was in for an evaluation of vertigo and it was noted that it had been well over five years since she had last had a Pap smear. She was asked to return for screening update. She continues to smoke 1/2 pack per day. She has smoked for over 35 years. She admits to a daily productive cough that is usually clear to zuñiga. She has some continued vertigo. She has some continued pain in the right hip area. I reviewed her recent computerized tomography scan. OBJECTIVE: BP: 136/78. 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 She is not using any accessory muscles for respiration. Slight barrel chest. Lungs: Clear to auscultation and percussion. Heart: Sounds are normal. Abdomen: Within normal limits without hepatosplenomegaly. External genitalia, BUS within normal limits. Vaginal vault, atrophic vaginal mucosa. Normal cervix and adnexa. Normal rectal examination. ASSESSMENT: 1. Tobacco abuse. 2. Persistent cough. 3. Screening Pap smear. PLAN: Pap smear is obtained. Spirometry and chest x-ray to evaluate the cough and rule out chronic obstructive pulmonary disease which I strongly suspect. Flexible sigmoidoscopy, cholesterol and high- density lipoprotein screen. Strongly advised smoking cessation. stq Víctor Larsen MD - 04/28/1998 12:01 AM CDT Progress Notes signed by Víctor Larsen MD at 06/07/98 2592 Author: Víctor Larsen MD Service: (none) Author Type: Physician Filed: 01/05/11 0537 Note Time: 04/28/98 0001 Status: Signed Belt Buckle Maker: Víctor Larsen MD (Physician) IMPRESSION: L5-S1 right radiculopathy. Vertigo. SUBJECTIVE: Shu comes in for follow up of her vertigo. She still gets an occasional very slight sensation of vertigo with a sudden turn. She is quite fearful of an upcoming air flight since every time she gets any ear pressure she gets severe vertigo and she is already somewhat fearful of flying. She reports that on Monday she had had a sensation of right hand tingling and right foot tingling that lasted about an hour. She felt wiped out and some generalized weakness in her entire upper body for about the same period of time. She did not have any dysarthria, no lower extremity weakness. SHe has had a sensation that there is a ball on the back on her right thigh. She feels as if there is some fullness there. Her hasn't been able to see any abnormality. She describes something about the size of a grapefruit sensation. She admits to a slight tingling or numbness in the area. She has had a couple of days of burping and indigestion that is also resolving. SHe has had some pain in the upper right buttock radiating down to the ankle on the right, having some hot flushing episodes. She has not been using hormone replacement therapy. She has a questionable history of vertebrobasilar stroke that was brought into question on follow up as possible labyrinthitis combined with a dry mouth. Her initial CT did not show any deficits, normotensive. Does take an aspirin a couple of times a week. If she takes it daily she gets too much bruising. OBJECTIVE: BP: 138/88. W: 134. P: 100 and regular. Initial, my repeat was 80 and regular. R: 20. Mildly anxious-appearing woman in no distress. SHe has a normal tandem agit, normal Romberg. Toes downgoing. Deep tendon reflexes are normal. Strength and sensation appears to be intact although she subjectively states it is decreased to light touch over the area where she feels there is a ball. Palpation reveals normal hamstring musculature with overlying subcutaneous fat without any mass palpable. She has discomfort in her back with straight leg raise at 75 degrees, no specific radiation. She is due to mammogram and Pap but we did were not able to accomplish that today. SHe is reminded that she is due for Pap smear and she is offered to get an early follow up visit to have that completed. ASSESSMENT: L5-S1 right radiculopathy. Vertigo. PLAN: CT of the LS spine, mammography. Continue current management of vertigo. I would discourage her flight, particularly as anxious as she is about it with a reasonable risk of worsening symptoms with air pressure changes. sls Andie Dennis MD - 04/25/1998 12:01 AM CDT Progress Notes signed by Andie Dennis MD at 06/11/98 1832 Author: Andie Dennis MD Service: (none) Author Type: Physician Filed: 01/05/11 0535 Note Time: 04/25/98 0001 Status: Signed Belt Buckle Maker: Andie Dennis MD (Physician) IMPRESSION: Dizziness, most probably secondary to inner ear dysfunction. SUBJECTIVE: A 57-year-old female who is concerned about the development of sudden onset of dizziness starting at noon today. This happened while she was driving. At the same time she had some nauseous feeling but no vomiting. At the same time has felt some pins and needles feeling in the right hand and also the right foot. These lasted about 20 minutes to half an hour and are resolved; only a few toes on the right side are feeling a little tingly still. Denies any obvious weakness. Denies any obvious vertigo, but states the dizziness was worse with movement of the head. Denies any obvious weakness on the right side but just generalized fatigue and weakness all over. No fever or URI symptoms. No tinnitus. No double vision or problem with speech or swallowing. No change in mentation. Concerned because about 2 or 3 years ago had similar symptoms but was told that could have been a stroke, but apparently follow-up by primary MChristina. did not agree with that per patient. I cannot find any notes in the computer. Did have ultrasound of the carotids and apparently was told they were okay. No visual changes at all. No numbness or weakness in the face. A smoker. Past medical history negative. Medications: None. Adverse Drug Reactions: None. OBJECTIVE: T: 97.6. P: 96. R: 16. BP: 164/90. Exam shows the patient looking very good, ambulating normal without any problems. Eyes show pupils equal, round, and reactive to light. Extraocular motion is intact. There is no nystagmus in bilateral eyes. Throat is normal. Neck is supple. No adenopathy is noted. Lungs are clear to auscultation. Cardiovascular exam reveals regular rhythm and rate; normal S1, S2. Cranial nerves are intact. Neuro exam is nonfocal. Strength sensation intact in upper and lower extremities. Deep tendon reflexes 2+ by similar bilateral knees. Babinski is negative. [id number] intact. Gait is intact. Sensation intact in the fact. No sensory loss in the upper and lower extremities. Was not able to reproduce the symptom of dizziness and possible vertigo by movement of the head. ASSESSMENT: Dizziness, most probably secondary to inner ear dysfunction. PLAN: Rx meclizine 25 mg p.o. to start with 1/2 tablet t.i.d. then go to 1 tablet if no problem with drowsiness. Follow-up with primary Judie. advised within a few days. Emphasized rechecking if things look worse, if any numbness, weakness, problem with vision, or unusual symptoms develop. Recheck if any concerns. gianluca Conversion, [facility] - 12/27/1997 12:01 AM CDT Progress Notes signed by at 07/06/98 192 Author: Alisa Conversion Service: (none) Author Type: (none) Filed: 01/05/11 0349 Note Time: 12/27/97 0001 Status: Signed Belt Buckle Maker: Alisa Conversion IMPRESSION: 1. Sinusitis. 2. Bilateral ceruminosis. 3. Right external otitis. 4. Elevated blood pressure reading. SUBJECTIVE: This is a 57-year-old lady who has had multiple symptoms, including sore throat, plugged ears, facial pain and pressure, nasal drainage, and occipital headache. These have been getting worse in the past few days. She is somewhat concerned because about two years ago she had an episode that suggested labyrinthitis with marked dizziness and was even felt to have had a mild stroke. She states this was apparently due to the marked vomiting, and slight slurred speech and dizziness. Her blood pressure now is 168/94. She has not had a checkup recently. OBJECTIVE: Temperature 98.6. Pulse 88. Respirations 20. ALLERGIES: None. MEDICATIONS: None. Denies using [id number] medications for her facial symptoms. On examination, this is a pleasant female with some puffiness under her eyes, tenderness over the sinuses. Pupils are equal and regular. EOMs intact. She has rhinitis with increased mucous. Throat has posterior pharyngeal erythema from drainage but nothing in the soft palate or tonsils. The neck is supple. Both ears are packed with very hard wax, and once removed show TMs with chronic scarring but no acute inflammation. The external canal on the right is more red, suggesting an external otitis. Chest is clear. DTRs normal. Good hand grasp and her speech is clear. ASSESSMENT: 1. Sinusitis. 2. Bilateral ceruminosis. 3. External otitis on the right. 4. Elevated blood pressure reading. PLAN: Amoxicillin 500 mg t.i.d. x 10 days. Samples of [place] given to use b.i.d. We reviewed the after-care instructions on sinusitis with use of increased humidity, nasal saline spray or irrigation or analgesic of choice. I did tell her I think the discomfort in the back of her head relates to tension, and which would not be unexpected when she has so much discomfort in the ears and face. She is advised to make a follow-up appointment in the next couple of weeks for repeat blood pressure check and a physical examination, and has promised to do that with Dr. Larsen. [facility] SCHEDULED RESOURCE: MICHELE BYRNES MD LIANCE COUNSEL documented in this encounter Plan of Treatment Not on filedocumented as of this encounter Procedures Procedure Name Priority Date/Time Associated Comments Diagnosis XR HUMERUS Routine 10/16/2002 11:29 Results for this AM COMPLIANCE COUNSEL procedure are i n the results section. COMPLETE BLOOD Routine 10/16/2002 11:17 Results f or this COUNT-NO DIFF AM COMPLIANCE COUNSEL procedure are in the results section. PHOSPHORUS Routine 10/16/2002 11:17 Results for this AM COMPLIANCE COUNSEL procedure are i n the results section. CALCIUM Routine 10/16/2002 11:17 Results for this AM COMPLIANCE COUNSEL procedure are i n the results section. XR CHEST PA WITH Routine 08/06/2002 12:55 Results for this LATERAL PM COMPLIANCE COUNSEL procedure are i n the results section. US PELVIC PEDIATRIC Routine 03/20/2002 11:15 Resu lts for this (NO EV) AM CDT procedure are i n the results section. GLUCOSE Routine 02/18/2002 10:08 Results for this AM CDT procedure are i n the results section. CREATININE / GFR Routine 02/18/2002 10:08 Results for this AM CDT procedure are i n the results section. COMPLETE BLOOD Routine 02/18/2002 10:08 Results f or this COUNT-W/DIFF AM CDT procedure are i n the results section. ESR Routine 02/18/2002 10:08 Results for this AM CDT procedure are i n the results section. XR CHEST APICAL Routine 02/18/2002 9:58 AM Result s for this LORDOTIC CDT procedure are i n the results section. ANATOMICAL PATH-C Routine 02/18/2002 6:01 AM Resu lts for this CDT procedure are i n the results section. LIPID PANEL AND Routine 11/09/2001 8:02 AM Result s for this DIRECT LDL(IF NEEDED) COMPLIANCE COUNSEL proced ure are in the results section. ALT (SGPT) Routine 11/09/2001 8:02 AM Results f or this COMPLIANCE COUNSEL procedure are i n the results section. AST Routine 11/09/2001 8:02 AM Results f or this COMPLIANCE COUNSEL procedure are i n the results section. MM MAMMOGRAM Routine 11/06/2001 10:30 Results for this SCREENING W CAD AM COMPLIANCE COUNSEL procedure ar e in the results section. LIPID PANEL AND Routine 07/06/2000 8:09 AM Result s for this DIRECT LDL(IF NEEDED) CDT proced ure are in the results section. MM MAMMOGRAM Routine 12/31/1999 9:30 AM Results f or this SCREENING W CAD CDT procedure ar e in the results section. GLUCOSE Routine 12/09/1999 10:04 Results for this AM COMPLIANCE COUNSEL procedure are i n the results section. THYROID STIMULATING Routine 12/09/1999 10:04 Resu lts for this HORMONE AM COMPLIANCE COUNSEL procedure are i n the results section. COMPLETE BLOOD Routine 12/09/1999 10:04 Results f or this COUNT-NO DIFF, NO PLT AM COMPLIANCE COUNSEL proced ure are in the results section. LIPID PANEL AND Routine 12/09/1999 10:04 Results for this DIRECT LDL(IF NEEDED) AM COMPLIANCE COUNSEL proced ure are in the results section. AST Routine 12/09/1999 10:04 Results for this AM COMPLIANCE COUNSEL procedure are i n the results section. PROTEIN, TOTAL Routine 12/09/1999 10:04 Results f or this (SERUM) AM COMPLIANCE COUNSEL procedure are i n the results section. ALBUMIN Routine 12/09/1999 10:04 Results for this AM COMPLIANCE COUNSEL procedure are i n the results section. ANATOMICAL PATH-C Routine 12/09/1999 5:39 AM Resu lts for this COMPLIANCE COUNSEL procedure are i n the results section. LIPID PANEL AND Routine 05/17/1999 8:05 AM Result s for this DIRECT LDL(IF NEEDED) CDT proced ure are in the results section. AST Routine 05/17/1999 8:05 AM Results f or this CDT procedure are i n the results section. FL UGI W ESOPHAGUS Routine 02/17/1999 8:40 AM Res ults for this CDT procedure are i n the results section. AST Routine 02/16/1999 9:48 AM Results f or this CDT procedure are i n the results section. LIPID PANEL AND Routine 02/10/1999 8:36 AM Result s for this DIRECT LDL(IF NEEDED) CDT proced ure are in the results section. AST Routine 02/10/1999 8:36 AM Results f or this CDT procedure are i n the results section. STREP GROUP A ANTIGEN Routine 01/18/1999 2:02 PM Results for this TEST CDT procedure are i n the results section. BETA STREP FOLLOWUP Routine 01/18/1999 2:02 PM Re sults for this CDT procedure are i n the results section. HDL CHOLESTEROL Routine 05/26/1998 1:13 PM Result s for this CDT procedure are i n the results section. CHOLESTEROL (TOTAL) Routine 05/26/1998 1:13 PM Re sults for this CDT procedure are i n the results section. XR CHEST PA WITH Routine 05/26/1998 1:03 PM Resul ts for this LATERAL CDT procedure are i n the results section. ANATOMICAL PATH-C Routine 05/26/1998 8:57 AM Resu lts for this CDT procedure are i n the results section. CT LUMBAR SPINE WO IV Routine 05/04/1998 4:30 PM Results for this CONT CDT procedure are i n the results section. MM MAMMOGRAM DIAG Routine 04/28/1998 4:20 PM Resu lts for this BILAT W CAD CDT procedure are i n the results section. MM MAMMOGRAM DIAG Routine 02/13/1996 9:45 AM Resu lts for this UNILAT EXTRA VIEW CDT procedure are in the results section. MM MAMMOGRAM DIAG Routine 02/28/1995 11:30 Result s for this BILAT W CAD AM CDT procedure are i n the results section. MM MAMMOGRAM DIAG Routine 04/08/1994 1:00 PM Resu lts for this BILAT W CAD CDT procedure are i n the results section. MM MAMMOGRAM DIAG Routine 10/05/1993 2:00 PM Resu lts for this UNILAT EXTRA VIEW COMPLIANCE COUNSEL procedure are in the results section. MM BX STEREOTACTIC Routine 02/16/1993 11:00 Resul ts for this BREAST BILAT AM CDT procedure are i n the results section. MM US BREAST LT Routine 02/09/1993 11:00 Results for this AM CDT procedure are i n the results section. MM MAMMOGRAM Routine 02/09/1993 9:30 AM Results f or this SCREENING W CAD CDT procedure ar e in the results section. documented in this encounter Results XR Humerus (10/16/2002 11:29 AM COMPLIANCE COUNSEL) Anatomical Region Laterality Modality Other Specimen (Source) Anatomical Location Collection Method / Collectio n Time Received Time / Laterality Volume Narrative 10/16/2002 11:29 AM COMPLIANCE COUNSEL CLINICAL DATA: ?PAIN ?719.42 FINDINGS: ?NO ACUTE OR SIGNIFICANT BONE OR BRANDON INT ABNORMALITY. ??THERE IS ?SOME DEGENERATIVE CHANGE AT THE AC JOINT. ?[id number] [facility] TECH-ID : ? YMM TRANS-ID: ? EDR Procedure Note Ian Cotton - 11/26/2016Formatting o f this note might be different from the original. CLINICAL DATA: PAIN 719.42 FINDINGS: NO ACUTE OR SIGNIFICANT BONE OR JOINT A BNORMALITY. THERE IS [place] DEGENER[place]. [id number] [place] TECH-ID : YMM TRANS-ID: EDR Víctor Sorensen MD RAD GD Calcium (10/16/2002 11:17 AM COMPLIANCE COUNSEL) athologist Signature Calcium 9.0 8.5 - 10.5 HP CONVERSION mg/dL Specimen (Source) Anatomical Collection Method Collection Time Re ceived Time Location / / Volume Laterality 10/16/2002 11:17 AM COMPLIANCE COUNSEL Víctor Sorensen MD LAB_1 Performing Organization Address City/[facility] Phon e Number HP CONVERSION Phosphorus (10/16/2002 11:17 AM COMPLIANCE COUNSEL) athologist Signature Phosphorus 4.1 2.5 - 4.5 HP CONVERSION Serum mg/dL Specimen (Source) Anatomical Collection Method Collection Time Re ceived Time Location / / Volume Laterality 10/16/2002 11:17 AM COMPLIANCE COUNSEL Víctor Sorensen MD LAB_1 Performing Organization Address [facility] Phon e Number HP CONVERSION Complete Blood Count-No Diff (10/16/2002 11:17 AM COMPLIANCE COUNSEL) athologist Signature White Blood Cell 10.9 3.8 - 11.0 HP CONVERSIO N Count K/cmm Red Blood Cell 4.84 3.70 - HP CONVERSION Count 5.20 m/cmm Hemoglobin 14.9 11.8 - HP CONVERSION 15.5 gm/dL Hematocrit 44.1 35.0 - HP CONVERSION 46.0 % Mean Corpuscular 91.1 80.0 - HP CONVERSION Volume 100.0 fl Mean Corpuscular 30.9 27.0 - HP CONVERSION Hemoglobin 34.0 pg Mean Corpuscular 33.9 32.0 - HP CONVERSION Hemoglobin Conc 36.5 gm/dL Cook RDW 12.6 11.0 - HP CONVERSION 15.0 % Platelet Count 253 140 - 450 HP CONVERSION k/cmm Specimen (Source) Anatomical Collection Method Collection Time Re ceived Time Location / / Volume Laterality 10/16/2002 11:17 AM COMPLIANCE COUNSEL Víctor Sorensen MD LAB_1 Performing Organization Address City/State/ZIP Code Phon e Number HP CONVERSION XR Chest PA With Lateral (08/06/2002 12:55 PM COMPLIANCE COUNSEL) Anatomical Region Laterality Modality Other Specimen (Source) Anatomical Location Collection Method / Collectio n Time Received Time / Laterality Volume Narrative 08/06/2002 12:55 PM COMPLIANCE COUNSEL CLINICAL DATA: ?COUGH, CONGESTION. ?786.2 FINDINGS: ?? CH3 ?? NO CHANGE FROM 02/18/02. ??CARDIOVAS CULAR STRUCTURES APPEAR ?? NORMAL FOR AGE. ??NO EVIDENCE OF ACT SANTIAGO PULMONARY DISEASE. TECH-ID : ? 18 TRANS-ID: Procedure Note Allen Clark - 11/26/2016 CLINICAL DATA: COUGH, CONGESTION. 786.2 FINDINGS: CH3 NO CHANGE FROM 02/18/02. CARDIOVASCULAR STRUCTURES APPEAR NORMAL FOR AGE. NO EVIDENCE OF ACTIVE P ULMONARY DISEASE. TECH-ID : 18 TRANS-ID: Anton Burt MD RAD GD US Pelvic Pediatric (No EV) (03/20/2002 11:15 AM CDT) Anatomical Region Laterality Modality Pelvis Other Specimen (Source) Anatomical Location Collection Method / Collectio n Time Received Time / Laterality Volume Impressions 03/20/2002 11:15 AM CDT : ?NEGATIVE PELVIC ULTRASOUND. SEE AB OVE. FINDINGS: ?UTERUS MEASURES 6.7 X 2.2 X 3.3 CM AND CONTAINS A 3.3 MM ?ENDOMETRIAL STRIPE. NO UTERINE MAS S IS SEEN. SMALL OVARIES ?NOTED BILATERALLY WITH NO SUSPICIO US MASS SEEN. NO FREE ?FLUID NOTED. ?[id number] TECH-ID : ? CL TRANS-ID: ? EDR Narrative 03/20/2002 11:15 AM CDT CLINICAL DATA: ?PELV US. CRAMPING & ABD PAIN. 789. 00 Procedure Note Allen Clark - 11/26/2016 CLINICAL DATA: PELV US. CRAMPING & ABD PAIN. 789.00 IMPRESSION : NEGATIVE PELVIC ULTRASOUND. SEE ABOVE. FINDINGS: UTERUS MEASURES 6.7 X 2.2 X 3.3 CM AND CONTAINS A 3.3 MM ENDOMETRIAL STRIPE. NO UTERINE MASS IS SEEN. SMALL OVARIES NOTED BILATERALLY WITH NO SUSPICIOUS MA SS SEEN. NO FREE FLUID NOTED. [id number] TECH-ID : CL TRANS-ID: EDR Víctor Sorensen MD RAD US (ABNORMAL) Complete Blood Count-W/Diff (02/18/2002 10:08 AM CDT) Patholo gist Method Time Signature Lymphocyte % 31.6 20.0 - HP CONVERSION 40.0 % White Blood Cell 11.1 (HH) 3.8 - 11.0 HP CONVERSIO N Count K/cmm Red Blood Cell 4.90 3.70 - HP CONVERSION Count 5.20 m/cmm Hemoglobin 14.8 11.8 - HP CONVERSION 15.5 gm/dL Hematocrit 44.0 35.0 - HP CONVERSION 46.0 % Mean Corpuscular 89.7 80.0 - HP CONVERSION Volume 100.0 fl Mean Corpuscular 30.2 27.0 - HP CONVERSION Hemoglobin 34.0 pg Mean Corpuscular 33.6 32.0 - HP CONVERSION Hemoglobin Conc 36.5 gm/dL Cook RDW 12.4 11.0 - HP CONVERSION 15.0 % Platelet Count 277 140 - 450 HP CONVERSION k/cmm Differential Auto-Dif No normal HP CONVERSION Verify range Neutrophils 6.9 2.0 - 7.5 HP CONVERSION Absolute Count K/cmm Neutrophil 61.7 50.0 - HP CONVERSION 75.0 % Lymphocyte 31.6 20.0 - HP CONVERSION Percent 40.0 % Monocyte Percent 4.8 (LL) 5.0 - 14.0 HP CONVERSIO N % Eosinophil 1.6 0.0 - 6.0 HP CONVERSION % Basophil % 0.3 0.0 - 2.0 HP CONVERSION % Specimen (Source) Anatomical Collection Method Collection Time Re ceived Time Location / / Volume Laterality 02/18/2002 10:08 AM CDT Víctor Sorensen MD LAB_1 Performing Organization Address City/State/ZIP Code Phon e Number HP CONVERSION Creatinine / GFR (02/18/2002 10:08 AM CDT) athologist Signature Creatinine 0.7 0.5 - 1.5 HP CONVERSION Serum mg/dL Specimen (Source) Anatomical Collection Method Collection Time Re ceived Time Location / / Volume Laterality 02/18/2002 10:08 AM CDT Víctor Sorensen MD LAB_1 Performing Organization Address [facility]/ZIP Code Phon e Number HP CONVERSION Glucose (02/18/2002 10:08 AM CDT) P athologist Signature Lab Glucose 87 60 - 109 HP CONVERSION mg/dL Specimen (Source) Anatomical Collection Method Collection Time Re ceived Time Location / / Volume Laterality 02/18/2002 10:08 AM CDT Víctor Sorensen MD LAB_1 Performing Organization Address City/[facility]/ZIP Code Phon e Number HP CONVERSION ESR (02/18/2002 10:08 AM CDT) Patholo gist Method Time Signature Sedimentation Rate 3 0 - 20 HP CONVERSI ON mm/Hr Specimen (Source) Anatomical Collection Method Collection Time Re ceived Time Location / / Volume Laterality 02/18/2002 10:08 AM CDT Víctor Sorensen MD LAB_1 Performing Organization Address [facility] Phon e Number HP CONVERSION XR Chest Apical Lordotic (02/18/2002 9:58 AM CDT) Anatomical Region Laterality Modality Chest, Lung Other Specimen (Source) Anatomical Location Collection Method / Collectio n Time Received Time / Laterality Volume Narrative 02/18/2002 9:58 AM CDT CLINICAL DATA: ?SHOULDER PAIN. SCAPULA PAIN. ?719.41 FINDINGS: ?CHEST IS NEGATIVE AND UNCHANGED FR OM 05/26/98. ?[id number] TECH-ID : TRANS-ID: ? EDR Procedure Note Allen Clark - 11/26/2016 CLINICAL DATA: SHOULDER PAIN. SCAPULA PAIN. 719.41 FINDINGS: CHEST IS NEGATIVE AND UNCHANGED FROM . [id number] TECH-ID : TRANS-ID: EDR Víctor Sorensen MD RAD GD Anatomical Path-C (02/18/2002 6:01 AM CDT) athologist Signature PAP Smear SEE TEXT No normal HP CONVERSION range Comment: Patient: SHU OLIVA ? CERVICAL CYTOLOGY REPORT Pathology # ??[id number] ?Date Obtained: ? Date Received: LMP: CLINICAL HIST CERVICAL SMEAR SPECIMEN ADEQUACY: ?? Satisfactory. ENDOCERVICAL CELLS: ??Present. CYTOLOGIC IMPRESSION: Within Normal Limits (Negative). Verified 02/28/02 by: ??SN ? (electronic signature) Specimen (Source) Anatomical Collection Method Collection Time Re ceived Time Location / / Volume Laterality 02/18/2002 6:01 AM CDT Víctor Sorensen MD LAB_1 Performing Organization Address City/State/ZIP Code Phon e Number HP CONVERSION Lipid Panel and Direct LDL(If Needed) (11/09/2001 8:02 AM COMPLIANCE COUNSEL) [facility] [employer] Method Time Signature Cholesterol/HDL 3.7 No normal HP CONVERSION Ratio Screen range Cholesterol 189 125 - 199 HP CONVERSION mg/dL HDL Cholesterol 51 40 - 60 HP CONVERSION mg/dL Triglycerides 140 0 - 199 HP CONVERSION mg/dL LDL Calculated 110 66 - 129 HP CONVERSION mg/dL Comment: Specimen (Source) Anatomical Collection Method Collection Time Re ceived Time Location / / Volume Laterality 11/09/2001 8:02 AM COMPLIANCE COUNSEL Víctor Sornesen MD LAB_1 Performing Organization Address City/State/ZIP Code Phon e Number HP CONVERSION AST (11/09/2001 8:02 AM COMPLIANCE COUNSEL) [facility] Method Time Signature Aspartate 14 0 - 45 HP CONVERSION Aminotransferase U/L Specimen (Source) Anatomical Collection Method Collection Time Re ceived Time Location / / Volume Laterality 11/09/2001 8:02 AM COMPLIANCE COUNSEL Víctor Sorensen MD LAB_1 Performing Organization Address City/State/ZIP Code Phon e Number HP CONVERSION ALT (SGPT) (11/09/2001 8:02 AM COMPLIANCE COUNSEL) [employer] Method Time Signature Alanine 31 0 - 65 HP CONVERSION Aminotransferase U/L Specimen (Source) Anatomical Collection Method Collection Time Re ceived Time Location / / Volume Laterality 11/09/2001 8:02 AM COMPLIANCE COUNSEL Víctor Sorensen MD LAB_1 Performing Organization Address City/[facility]/ZIP Code Phon e Number HP CONVERSION MM Mammogram Screening W CAD (11/06/2001 10:30 AM COMPLIANCE COUNSEL) Anatomical Region Laterality Modality Breast Bilateral Mammography Specimen (Source) Anatomical Location Collection Method / Collectio n Time Received Time / Laterality Volume Impressions 11/06/2001 10:30 AM COMPLIANCE COUNSEL : ?? NO MAMMOGRAPHIC EVIDENCE OF MALIGNAN CY. ACR-BIRADS CATEGORY 2: ??BENIGN FINDING S. FINDINGS: 112 ?? THE BREASTS ARE PREDOMINANTLY FATTY. ??BENIGN FINDINGS ARE ?? PRESENT WHICH MAY INCLUDE BENIGN JUAN R CIFICATIONS, CIRCUMSCRIBED ?? MASSES OR ASYMMETRY. ??THERE ARE NO SUSPICIOUS MASSES OR ?? CALCIFICATIONS. ?? NO CHANGE IN APPEARANCE FROM 0. TECH-ID : ? ANA M TRANS-ID: Narrative 11/06/2001 10:30 AM COMPLIANCE COUNSEL SEVERITY: 1 CLINICAL DATA: ?MAMMO PREV 12/31/1999 [facility] Procedure Note Anton Haddad MD - 11/26/2016Format ting of this note might be different from the original. SEVERITY: 1 CLINICAL DATA: MAMMO PREV 12/31/1999 [facility] IMPRESSION : NO MAMMOGRAPHIC EVIDENCE OF MALIGNANCY. ACR-BIRADS CATEGORY 2: BENIGN FINDINGS. FINDINGS: 112 THE BREASTS ARE PREDOMINANTLY FATTY. BE NIGN FINDINGS ARE PRESENT WHICH MAY INCLUDE BENIGN CALCIF ICATIONS, CIRCUMSCRIBED MASSES OR ASYMMETRY. THERE ARE NO SUSPI CIOUS MASSES OR CALCIFICATIONS. NO CHANGE IN APPEARANCE FROM 12/31/99. TECH-ID : JJM TRANS-ID: Víctor Sorensen MD RAD ILIA (ABNORMAL) Lipid Panel and Direct LDL(If Needed) (07/06/2000 8:09 AM CDT) [facility] [employer] Method Time Signature Length Of Fast 12.0 8.0 - 24.0 HP CONVERSION Hours Cholesterol 217 (HH) 125 - 199 HP CONVERSION mg/dL HDL Cholesterol 52 36 - 80 HP CONVERSION mg/dL Cholesterol/HDL 4.2 No normal HP CONVERSION Ratio Screen range Triglycerides 162 0 - 250 HP CONVERSION mg/dL LDL Calculated 133 (HH) 66 - 129 HP CONVERSION mg/dL Comment: Fasting status adequate. Specimen (Source) Anatomical Collection Method Collection Time Re ceived Time Location / / Volume Laterality 07/06/2000 8:09 AM CDT Víctor Sorensen MD LAB_1 Performing Organization Address City/State/ZIP Code Phon e Number HP CONVERSION MM Mammogram Screening W CAD (12/31/1999 9:30 AM CDT) Anatomical Region Laterality Modality Breast Bilateral Mammography Specimen (Source) Anatomical Location Collection Method / Collectio n Time Received Time / Laterality Volume Impressions 12/31/1999 9:30 AM CDT : ?? NO MAMMOGRAPHIC EVIDENCE OF MALIGNAN CY. ACR-BIRADS CATEGORY 1: ??NEGATIVE. FINDINGS: ?? M2U ?? THERE ARE SCATTERED FIBROGLANDULAR D ENSITIES. ??THERE ARE NO ?? SUSPICIOUS MASSES OR CALCIFICATIONS. ?? NO CHANGE IN APPEARANCE FROM 8. TECH-ID : ? 18 TRANS-ID: Narrative 12/31/1999 9:30 AM CDT SEVERITY: 1 CLINICAL DATA: ?MAMMO___PREVIOUS 04/28/98 [facility] Procedure Note Anton Haddad MD - 11/26/2016Format ting of this note might be different from the original. SEVERITY: 1 CLINICAL DATA: MAMMO___PREVIOUS 04/28/98 [facility] IMPRESSION : NO MAMMOGRAPHIC EVIDENCE OF MALIGNANCY. ACR-BIRADS CATEGORY 1: NEGATIVE. FINDINGS: M2U THERE ARE SCATTERED FIBROGLANDULAR DENS ITIES. THERE ARE NO SUSPICIOUS MASSES OR CALCIFICATIONS. NO CHANGE IN APPEARANCE FROM 04/28/98. TECH-ID : 18 TRANS-ID: Víctor Sorensen MD RAD ILIA Thyroid Stimulating Hormone (12/09/1999 10:04 AM COMPLIANCE COUNSEL) P athologist Signature Thyroid 1.66 0.20 - HP CONVERSION Stimulating 5.50 Hormone uIU/mL Specimen (Source) Anatomical Collection Method Collection Time Re ceived Time Location / / Volume Laterality 12/09/1999 10:04 AM COMPLIANCE COUNSEL Víctor Sorensen MD LAB_1 Performing Organization Address City/State/ZIP Code Phon e Number HP CONVERSION (ABNORMAL) Lipid Panel and Direct LDL(If Needed) (12/09/1999 10:04 AM COMPLIANCE COUNSEL) [facility] gist Method Time Signature Length Of Fast 12.0 8.0 - 24.0 HP CONVERSION Hours Cholesterol 224 (HH) 125 - 199 HP CONVERSION mg/dL HDL Cholesterol 55 36 - 80 HP CONVERSION mg/dL Cholesterol/HDL 4.1 No normal HP CONVERSION Ratio Screen range Triglycerides 101 0 - 250 HP CONVERSION mg/dL LDL Calculated 149 (HH) 66 - 129 HP CONVERSION mg/dL Comment: Fasting status adequate. Specimen (Source) Anatomical Collection Method Collection Time Re ceived Time Location / / Volume Laterality 12/09/1999 10:04 AM COMPLIANCE COUNSEL Víctor Sorensen MD LAB_1 Performing Organization Address City/[facility]/ZIP Code Phon e Number HP CONVERSION Albumin (12/09/1999 10:04 AM COMPLIANCE COUNSEL) athologist Signature Albumin 3.5 3.0 - 5.0 HP CONVERSION g/dL Specimen (Source) Anatomical Collection Method Collection Time Re ceived Time Location / / Volume Laterality 12/09/1999 10:04 AM COMPLIANCE COUNSEL Víctor Sorensen MD LAB_1 Performing Organization Address City/State/ZIP Code Phon e Number HP CONVERSION AST (12/09/1999 10:04 AM COMPLIANCE COUNSEL) [facility] gist Method Time Signature Aspartate 19 0 - 45 HP CONVERSION Aminotransferase U/L Specimen (Source) Anatomical Collection Method Collection Time Re ceived Time Location / / Volume Laterality 12/09/1999 10:04 AM COMPLIANCE COUNSEL Víctor Sorensen MD LAB_1 Performing Organization Address City/State/ZIP Code Phon e Number HP CONVERSION Glucose (12/09/1999 10:04 AM COMPLIANCE COUNSEL) P athologist Signature Length Of Fast 12.0 8.0 - 24.0 HP CONVERSION Hours Lab Glucose 93 70 - 115 HP CONVERSION mg/dL Specimen (Source) Anatomical Collection Method Collection Time Re ceived Time Location / / Volume Laterality 12/09/1999 10:04 AM COMPLIANCE COUNSEL Víctor Sorensen MD LAB_1 Performing Organization Address City/[facility] Phon e Number HP CONVERSION Protein, Total (Serum) (12/09/1999 10:04 AM COMPLIANCE COUNSEL) athologist Signature Protein Total, 7.1 5.7 - 8.3 HP CONVERSION Serum gm/dL Specimen (Source) Anatomical Collection Method Collection Time Re ceived Time Location / / Volume Laterality 12/09/1999 10:04 AM COMPLIANCE COUNSEL Víctor Sorensen MD LAB_1 Performing Organization Address City/[facility] Phon e Number HP CONVERSION Complete Blood Count-No Diff, No Plt (12/09/1999 10:04 AM COMPLIANCE COUNSEL) P athologist Signature White Blood Cell 8.3 3.8 - 11.0 HP CONVERSIO N Count K/cmm Red Blood Cell 5.12 3.70 - HP CONVERSION Count 5.20 m/cmm Hemoglobin 15.0 11.8 - HP CONVERSION 15.5 gm/dL Hematocrit 45.3 35.0 - HP CONVERSION 46.0 % Mean Corpuscular 88.6 80.0 - HP CONVERSION Volume 100.0 fl Mean Corpuscular 29.3 27.0 - HP CONVERSION Hemoglobin 34.0 pg Mean Corpuscular 33.1 32.0 - HP CONVERSION Hemoglobin Conc 36.5 gm/dL Cook RDW 12.4 11.0 - HP CONVERSION 15.0 % Specimen (Source) Anatomical Collection Method Collection Time Re ceived Time Location / / Volume Laterality 12/09/1999 10:04 AM COMPLIANCE COUNSEL Víctor Sorensen MD LAB_1 Performing Organization Address [facility] Phon e Number HP CONVERSION Anatomical Path-C (12/09/1999 5:39 AM COMPLIANCE COUNSEL) P athologist Signature PAP Smear SEE TEXT No normal HP CONVERSION range Comment: Patient: SHU OLIVA ? CERVICAL CYTOLOGY REPORT Pathology # ??[id number] ?Date Obtained: ? Date Received: LMP: CLINICAL HIST CERVICAL SMEAR SPECIMEN ADEQUACY: ?? Satisfactory. ENDOCERVICAL CELLS: ??Present. CYTOLOGIC IMPRESSION: Within Normal Limits (Negative). Verified 12/16/99 by: ??JYO ?(electronic signature) Specimen (Source) Anatomical Collection Method Collection Time Re ceived Time Location / / Volume Laterality 12/09/1999 5:39 AM COMPLIANCE COUNSEL Víctor Sorensen MD LAB_1 Performing Organization Address City/[facility] Phon e Number HP CONVERSION Lipid Panel and Direct LDL(If Needed) (05/17/1999 8:05 AM CDT) [facility] [employer] Method Time Signature Cholesterol 179 125 - 199 HP CONVERSION mg/dL HDL Cholesterol 60 36 - 80 HP CONVERSION mg/dL Cholesterol/HDL 3.0 No normal HP CONVERSION Ratio Screen range Triglycerides 91 0 - 250 HP CONVERSION mg/dL Comment: Triglyceride <400 LDL Calculated 101 66 - 129 mg/dL HP CONVERS ION Comment: Fasting status adequate. Specimen (Source) Anatomical Collection Method Collection Time Re ceived Time Location / / Volume Laterality 05/17/1999 8:05 AM CDT Víctor Sorensen MD LAB_1 Performing Organization Address City/[facility]/ZIP Code Phon e Number HP CONVERSION AST (05/17/1999 8:05 AM CDT) [facility] gist Method Time Signature Aspartate 15 0 - 45 HP CONVERSION Aminotransferase U/L Specimen (Source) Anatomical Collection Method Collection Time Re ceived Time Location / / Volume Laterality 05/17/1999 8:05 AM CDT Víctor Sorensen MD LAB_1 Performing Organization Address [facility] Phon e Number HP CONVERSION FL UGI W Esophagus (02/17/1999 8:40 AM CDT) Anatomical Region Laterality Modality Chest, Abdomen, Neck Other Specimen (Source) Anatomical Location Collection Method / Collectio n Time Received Time / Laterality Volume Impressions 02/17/1999 8:40 AM CDT : ?1. ?VERY SMALL SLIDING HIATAL HERNIA WITH TWO EPISODES OF DISTAL ?GE REFLUX. ?2. ?NONSPECIFIC MUCOSAL FOLD T HICKENING OF THE DUODENAL BULB AND ?IMMEDIATE POSTBULBAR NELSON ON OF THE DUODENUM. FINDINGS: ?THE HYPOPHARYNX AND CERVICAL ESOPH CHUCKY APPEAR WITHIN NORMAL LIMITS. ?THERE IS A SMALL SLIDING HIATAL HE RNIA WITH TWO EPISODES OF DISTAL ?GE REFLUX WHICH WERE CLEARED PROMP TLY. ??THERE IS NO EVIDENCE OF ?ESOPHAGITIS AND NO ABNORMAL MASSES IN THE ESOPHAGUS ARE PRESENT. ?THE STOMACH IS NORMAL. ??THE DUODE NAL BULB AND POSTBULBAR REGION ?DEMONSTRATE PROMINENCE/THICKENING OF THE MUCOSAL FOLDS. ??THIS IS A ?NONSPECIFIC FINDING BUT MAY BE ASS OCIATED WITH DUODENITIS/MILD ?INFLAMMATION WELL ASSOCIATED WITH VARIOUS OTHER ETIOLOGIES ?INCLUDING LOW SERUM PROTEIN LEVELS . ??NO MASSES OR ULCERATIONS ARE ?IDENTIFIED. ??PERISTALSIS AND NIKITA LITY WERE NORMAL. TECH-ID : ? OO TRANS-ID: ? QTR Narrative 02/17/1999 8:40 AM CDT CLINICAL DATA: ?POSSIBLE REFLUX AND CHEST PAIN Procedure Note Ian Cotton - 11/26/2016Formatting o f this note might be different from the original. CLINICAL DATA: POSSIBLE REFLUX AND CHEST PAIN IMPRESSION : 1. VERY SMALL SLIDING HIATAL HERNIA WIT H TWO EPISODES OF DISTAL GE REFLUX. 2. NONSPECIFIC MUCOSAL FOLD THICKENING OF THE DUODENAL BULB AND IMMEDIATE POSTBULBAR REGION OF THE DUOD ENUM. FINDINGS: THE HYPOPHARYNX AND CERVICAL ESOPHAGUS APPEAR WITHIN NORMAL LIMITS. THERE IS A SMALL SLIDING HIATAL HERNIA WITH TWO EPISODES OF DISTAL GE REFLUX WHICH WERE CLEARED PROMPTLY. THERE IS NO EVIDENCE OF ESOPHAGITIS AND NO ABNORMAL MASSES IN T HE ESOPHAGUS ARE PRESENT. THE STOMACH IS NORMAL. THE DUODENAL BUL B AND POSTBULBAR REGION DEMONSTRATE PROMINENCE/THICKENING OF TH E MUCOSAL FOLDS. THIS IS A NONSPECIFIC FINDING BUT MAY BE ASSOCIAT ED WITH DUODENITIS/MILD INFLAMMATION WELL ASSOCIATED WITH VARIOUS OTHER ETIOLOGIES INCLUDING LOW SERUM PROTEIN LEVELS. NO MASSES OR ULCERATIONS ARE IDENTIFIED. PERISTALSIS AND MOTILITY WE RE NORMAL. TECH-ID : OO TRANS-ID: QTR Víctor Sorensen MD RAD FL AST (02/16/1999 9:48 AM CDT) [facility] Method Time Signature Aspartate 12 0 - 45 HP CONVERSION Aminotransferase U/L Specimen (Source) Anatomical Collection Method Collection Time Re ceived Time Location / / Volume Laterality 02/16/1999 9:48 AM CDT Víctor Sorensen MD LAB_1 Performing Organization Address City/State/ZIP Code Phon e Number HP CONVERSION (ABNORMAL) Lipid Panel and Direct LDL(If Needed) (02/10/1999 8:36 AM CDT) [facility] Method Time Signature Length Of Fast 16.5 12.0 - HP CONVERSION 24.0 Hours Cholesterol 273 (HH) 125 - 199 HP CONVERSION mg/dL HDL Cholesterol 48 36 - 80 HP CONVERSION mg/dL Cholesterol/HDL 5.7 No normal HP CONVERSION Ratio Screen range Triglycerides 118 0 - 250 HP CONVERSION mg/dL LDL Calculated 201 (HH) 66 - 129 HP CONVERSION mg/dL Comment: Fasting status adequate. Specimen (Source) Anatomical Collection Method Collection Time Re ceived Time Location / / Volume Laterality 02/10/1999 8:36 AM CDT Víctor Sorenesn MD LAB_1 Performing Organization Address City/[facility]/ZIP Code Phon e Number HP CONVERSION AST (02/10/1999 8:36 AM CDT) [facility] Method Time Signature Aspartate 11 0 - 45 HP CONVERSION Aminotransferase U/L Specimen (Source) Anatomical Collection Method Collection Time Re ceived Time Location / / Volume Laterality 02/10/1999 8:36 AM CDT Víctor Sorensen MD LAB_1 Performing Organization Address City/State/ZIP Code Phon e Number HP CONVERSION Strep Group A Antigen Test (01/18/1999 2:02 PM CDT) [facility] Signature Strep Group A Negative Negative HP CONVERSION Antigen Test Comment: Culture to follow. Specimen (Source) Anatomical Collection Method Collection Time Re ceived Time Location / / Volume Laterality 01/18/1999 2:02 PM CDT Víctor Sorensen MD LAB_1 Performing Organization Address City/State/ZIP Code Phon e Number HP CONVERSION Beta Strep Followup (01/18/1999 2:02 PM CDT) P athologist Signature Strep Screen SEE TEXT HP CONVERSION Comment: Patient: SHU OLIVA Rapid Strep Follow up Culture @ ? Collected: ??[id number] ??[id number] Source: Throat ?Processed: ??[id number] ??[id number] ? 1V Final Report ------ ?[id number] ??[id number] No beta hemolytic Strep group A isolated . @ = Rapid F/U Cult Performed at ??[address], [place] ?[address] Specimen (Source) Anatomical Collection Method Collection Time Re ceived Time Location / / Volume Laterality 01/18/1999 2:02 PM CDT Víctor Sorensen MD LAB_1 Performing Organization Address City/State/ZIP Code Phon e Number HP CONVERSION HDL Cholesterol (05/26/1998 1:13 PM CDT) P athologist Signature HDL Cholesterol 57 36 - 80 HP CONVERSION mg/dL Specimen (Source) Anatomical Collection Method Collection Time Re ceived Time Location / / Volume Laterality 05/26/1998 1:13 PM CDT Víctor Sorensen MD LAB_1 Performing Organization Address City/State/ZIP Code Phon e Number HP CONVERSION (ABNORMAL) Cholesterol (Total) (05/26/1998 1:13 PM CDT) athologist Signature Cholesterol 266 (HH) 125 - 199 HP CONVERSION mg/dL Specimen (Source) Anatomical Collection Method Collection Time Re ceived Time Location / / Volume Laterality 05/26/1998 1:13 PM CDT Víctor Sorensen MD LAB_1 Performing Organization Address City/State/ZIP Code Phon e Number HP CONVERSION XR Chest PA With Lateral (05/26/1998 1:03 PM CDT) Anatomical Region Laterality Modality Other Specimen (Source) Anatomical Location Collection Method / Collectio n Time Received Time / Laterality Volume Narrative 05/26/1998 1:03 PM CDT CLINICAL DATA: ?COUGH FINDINGS: ?EVENTRATION OF THE RIGHT HEMIDIAPH RAGM. CARDIOPHRENIC FAT ?PAD ON THE LEFT. CHEST OTHERWISE U NREMARKABLE. ?THERE IS A BULBOUS AREA POSTERIORL Y IN THE HEMIDIAPHRAGM ON ?THE LEFT AND A LARGER BULBOUS AREA POSTERIORLY IN THE ?HEMIDIAPHRAGM ON THE RIGHT PROBABL Y WHICH ARE EVENTRATIONS. TECH-ID : ? KK TRANS-ID: ? EL Procedure Note Amber Allen - 11/26/2016 CLINICAL DATA: COUGH FINDINGS: EVENTRATION OF THE RIGHT HEMIDIAPHRAGM. CARDIOPHRENIC FAT PAD ON THE LEFT. CHEST OTHERWISE UNREMA RKABLE. THERE IS A BULBOUS AREA POSTERIORLY IN THE HEMIDIAPHRAGM ON THE LEFT AND A LARGER BULBOUS AREA POST ERIORLY IN THE HEMIDIAPHRAGM ON THE RIGHT PROBABLY WHI CH ARE EVENTRATIONS. TECH-ID : KK TRANS-ID: EL Víctor Sorensen MD RAD GD Anatomical Path-C (05/26/1998 8:57 AM CDT) athologist Signature PAP Smear SEE TEXT No normal HP CONVERSION range Comment: Patient: SHU OLIVA ? CERVICAL CYTOLOGY REPORT Pathology # ??[id number] ?Date Obtained: ? Date Received: LMP: CLINICAL HIST ? POSTMENOPAUSAL. CERVICAL, VAGINAL SMEAR SPECIMEN ADEQUACY: ?? Satisfactory. ENDOCERVICAL CELLS: ??Present. CYTOLOGIC IMPRESSION: Within Normal Limits (Negative). Verified 06/02/98 by: ??SN ? 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 ??DEGENERATED DISKS AN D BONY HYPERTROPHIC CHANGES ?ARE SEEN AT THE OTHER LUMBAR LEVEL S WITH NO HERNIATED ?NUCLEUS PULPOSIS OR SIGNIFICANT [place] STENOSIS IDENTIFIED AT ?THE OTHER LEVELS. FINDINGS: ?THE LUMBAR SPINE WAS SCANNED FROM MID L3 TO L5-S1. ??SINGLE ?IMAGES WERE ALSO OBTAINED AT L1-2 AND L2-3 AND ANGLED IMAGES ?WERE OBTAINED AT L4-5 AND L5-S1. ?FIVE LUMBAR-TYPE VERTEBRAL BODIES WERE PRESENT. ??THE ?INTERCRISTAL LINE IS TO THE SUPERI OR ASPECT OF L4. ?SINGLE SCANS THROUGH THE L1-2 AND L2-3 LEVELS ARE NOT ?DIRECTLY THROUGH THE DISK SPACES. ??HOWEVER, THEY DEMONSTRATE ?BULGING OF THE DISK AND BONY HYPER TROPHIC CHANGE. ?L3-4: ??THERE IS DIFFUSE BULGING O F THE DISK WITH NO FOCAL ?HERNIATION SEEN. ??NO BONY STENOSI S IS IDENTIFIED, ALTHOUGH ?THERE ARE HYPERTROPHIC CHANGES OF THE FACETS. ?L4-5: ??NO HERNIATED NUCLEUS PULPO SIS IS SEEN. ??THERE ARE ?HYPERTROPHIC CHANGES OF THE FACETS , BUT NO SIGNIFICANT BONY ?STENOSIS. ?L5-S1: ??THERE IS GRADE I SPONDYLO LISTHESIS OF L5 ON S1 ?(APPROXIMATELY 8 MM). ??NO HERNIAT ED NUCLEUS PULPOSIS IS ?SEEN. ??BILATERAL PARS DEFECTS ARE PRESENT AT L5. ??THIS ?RESULTS IN MARKED BILATERAL NEURAL FORAMINAL STENOSIS. TECH-ID : ? 21 TRANS-ID: ? 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 DEGENERATED DISKS AND BONY HYPERTROPHIC CHANGES ARE SEEN AT THE OTHER LUMBAR LEVELS WIT H NO HERNIATED NUCLEUS PULPOSIS OR SIGNIFICANT BONY ST ENOSIS IDENTIFIED AT THE OTHER LEVELS. FINDINGS: THE LUMBAR SPINE WAS SCANNED FROM MID L 3 TO L5-S1. SINGLE IMAGES WERE ALSO OBTAINED AT L1-2 AND L 2-3 AND ANGLED IMAGES WERE OBTAINED AT L4-5 AND L5-S1. FIVE LUMBAR-TYPE VERTEBRAL BODIES WERE PRESENT. THE INTERCRISTAL LINE IS TO THE SUPERIOR PECT OF L4. SINGLE SCANS THROUGH THE L1-2 AND L2-3 LEVELS ARE NOT DIRECTLY THROUGH THE DISK SPACES. HOWEV ER, THEY DEMONSTRATE BULGING OF THE DISK AND BONY HYPERTROPH IC CHANGE. L3-4: THERE IS DIFFUSE BULGING OF THE D ISK WITH NO FOCAL HERNIATION SEEN. NO BONY STENOSIS IS ID ENTIFIED, ALTHOUGH THERE ARE HYPERTROPHIC CHANGES OF THE F ACETS. L4-5: NO HERNIATED NUCLEUS PULPOSIS IS SEEN. THERE ARE HYPERTROPHIC CHANGES OF THE FACETS, BUT NO SIGNIFICANT BONY STENOSIS. L5-S1: THERE IS GRADE I SPONDYLOLISTHES IS OF L5 ON S1 (APPROXIMATELY 8 MM). NO HERNIATED NUCL EUS PULPOSIS IS SEEN. BILATERAL PARS DEFECTS ARE PRESEN T AT L5. THIS RESULTS IN MARKED BILATERAL NEURAL FORA PITA STENOSIS. TECH-ID : 21 TRANS-ID: CRB Víctor Sorensen MD RAD CT MM Mammogram Diag Bilat W CAD (04/28/1998 4:20 PM CDT) Anatomical Region Laterality Modality Breast Bilateral Mammography Specimen (Source) Anatomical Location Collection Method / Collectio n Time Received Time / Laterality Volume Impressions 04/28/1998 4:20 PM CDT : ?? NO MAMMOGRAPHIC EVIDENCE OF MALIGNAN CY. FINDINGS: ?? M3U ?? BREAST TISSUE IS MODERATELY DENSE; T HIS SOMEWHAT DECREASES ?? DIAGNOSTIC SENSITIVITY. ??NO SUSPICI OUS MASSES OR CALCIFICATIONS ?? ARE SEEN. ?? NO CHANGE FROM 02/28/95. TECH-ID : ? 25 TRANS-ID: Narrative 04/28/1998 4:20 PM CDT SEVERITY: 1 CLINICAL DATA: ?MAMMO Procedure Note Sterling Amezcua MD - 11/26/2016 SEVERITY: 1 CLINICAL DATA: MAMMO IMPRESSION : NO MAMMOGRAPHIC EVIDENCE OF MALIGNANCY. FINDINGS: M3U BREAST TISSUE IS MODERATELY DENSE; THIS SOMEWHAT DECREASES DIAGNOSTIC SENSITIVITY. NO SUSPICIOUS M ASSES OR CALCIFICATIONS ARE SEEN. NO CHANGE FROM 02/28/95. TECH-ID : 25 TRANS-ID: Víctor Sorensen MD RAD ILIA MM Mammogram Diag Unilat Extra View (02/13/1996 9:45 AM CDT) Anatomical Region Laterality Modality Breast Mammography Specimen (Source) Anatomical Location Collection Method / Collectio n Time Received Time / Laterality Volume Impressions 02/13/1996 9:45 AM CDT : ?1) ??NO MAMMOGRAPHIC EVIDENCE FOR MALIGNANCY. ?2) ??RECOMMEND CONTINUED MAMMOGRAP HIC SCREENING. ??SEVERITY 1. FINDINGS: ?THREE YEAR FOLLOW-UP MAMMOTEST COR E BIOPSY. ??MAMMOGRAMS ARE ?UNREMARKABLE. ??THERE IS NO MAMMOG RAPHIC EVIDENCE FOR ?MALIGNANCY. ??THE PREVIOUS DENSITY WHICH WAS BIOPSIED THREE ?YEARS AGO IN THE RIGHT BREAST IS N O LONGER PRESENT. TECH-ID : ? 25 TRANS-ID: ? KFM Narrative 02/13/1996 9:45 AM CDT SEVERITY: 1 CLINICAL DATA: ?3 YR F/U MTEST BX DONE 02/16/93 ?BILATERAL MAMMO Procedure Note Anton Haddad MD - 11/26/2016Format ting of this note might be different from the original. SEVERITY: 1 CLINICAL DATA: 3 YR F/U MTEST BX DONE 02/16/93 BILATERAL MAMMO IMPRESSION : 1) NO MAMMOGRAPHIC EVIDENCE FOR MALIGNA NCY. 2) RECOMMEND CONTINUED MAMMOGRAPHIC SCR EENING. SEVERITY 1. FINDINGS: THREE YEAR FOLLOW-UP MAMMOTEST CORE BIO PSY. MAMMOGRAMS ARE UNREMARKABLE. THERE IS NO MAMMOGRAPHIC EVIDENCE FOR MALIGNANCY. THE PREVIOUS DENSITY WHICH WAS BIOPSIED THREE YEARS AGO IN THE RIGHT BREAST IS NO JESSY MARIE PRESENT. TECH-ID : 25 TRANS-ID: KFM Víctor Sorensen MD RAD ILIA MM Mammogram Juan CURIEL (02/28/1995 11:30 AM CDT) Anatomical Region Laterality Modality Breast Bilateral Mammography Specimen (Source) Anatomical Location Collection Method / Collectio n Time Received Time / Laterality Volume Impressions 02/28/1995 11:30 AM CDT : ?? NO MAMMOGRAPHIC EVIDENCE OF MALIGNAN CY. FINDINGS: ?? M2U ?? BREAST TISSUE IS MINIMALLY DENSE. ?? NO SUSPICIOUS MASSES OR ?? CALCIFICATIONS ARE SEEN. ?? NO CHANGE FROM 12/25/89. TECH-ID : ? 25 TRANS-ID: Narrative 02/28/1995 11:30 AM CDT SEVERITY: 1 CLINICAL DATA: ?F/U MAMMOTEST BX DONE 02/16/93 Procedure Note Ayesha Cedeno MD - 11/26/2016Fo rmatting of this note might be different from the original. SEVERITY: 1 CLINICAL DATA: F/U MAMMOTEST BX DONE 02/16/93 IMPRESSION : NO MAMMOGRAPHIC EVIDENCE OF MALIGNANCY. FINDINGS: M2U BREAST TISSUE IS MINIMALLY DENSE. NO RYAN SPICIOUS MASSES OR CALCIFICATIONS ARE SEEN. NO CHANGE FROM 12/25/89. TECH-ID : 25 TRANS-ID: Bethel Owens MD RAD ILIA MM Mammogram Diag Bilat W CAD (04/08/1994 1:00 PM CDT) Anatomical Region Laterality Modality Breast Bilateral Mammography Specimen (Source) Anatomical Location Collection Method / Collectio n Time Received Time / Laterality Volume Narrative 04/08/1994 1:00 PM CDT CLINICAL DATA: ?1YR F/U RT BRST MTEST BX DONE ON ?BILAT MAMMO FINDINGS: ?BOTH BREASTS HAVE A MODERATE DEGRE E OF DENSITY. ??THERE IS NO ?EVIDENCE FOR MALIGNANCY. ??A NODUL AR DENSITY IN THE MEDIAL ?ASPECT OF THE RIGHT BREAST WHICH W PRESENT 02/09/93 IS NO ?LONGER PRESENT. ??THIS IS A ONE-YE AR FOLLOW-UP TO MAMMOTEST ?CORE BIOPSY DONE ON 02/16/93. ??THE NODULE BIOPSIED WAS ?CONSISTENT WITH A CYST THAT DISAPP EARED WITH THE BIOPSY. ?THERE IS NO EVIDENCE FOR MALIGNANC Y. ??ROUTINE ONE-YEAR ?FOLLOW-UP IS RECOMMENDED. TECH-ID : ? 21 TRANS-ID: ? LEB SEVERITY: Procedure Note Ayesha Cedeno MD - 11/26/2016Fo rmatting of this note might be different from the original. CLINICAL DATA: 1YR F/U RT BRST MTEST BX DONE ON 02-16-93 BILAT MAMMO FINDINGS: BOTH BREASTS HAVE A MODERATE DEGREE OF DENSITY. THERE IS NO EVIDENCE FOR MALIGNANCY. A NODULAR DENS ITY IN THE MEDIAL ASPECT OF THE RIGHT BREAST WHICH WAS OH ESENT 02/09/93 IS NO LONGER PRESENT. THIS IS A ONE-YEAR FOLL OW-UP TO MAMMOTEST CORE BIOPSY DONE ON 02/16/93. THE NODULE BIOPSIED WAS CONSISTENT WITH A CYST THAT DISAPPEARED WITH THE BIOPSY. THERE IS NO EVIDENCE FOR MALIGNANCY. RO UTINE ONE-YEAR FOLLOW-UP IS RECOMMENDED. TECH-ID : 21 TRANS-ID: LEB SEVERITY: Bethel Owens MD RAD ILIA MM Mammogram Diag Unilat Extra View (10/05/1993 2:00 PM COMPLIANCE COUNSEL) Anatomical Region Laterality Modality Breast Mammography Specimen (Source) Anatomical Location Collection Method / Collectio n Time Received Time / Laterality Volume Narrative 10/05/1993 2:00 PM COMPLIANCE COUNSEL CLINICAL DATA: ?6 MTH F/U RT BRST MTEST BX DONE ON 02-16-93 ?RT MAMMO FINDINGS: ?RIGHT BREAST MAMMOGRAM IS A FOLLOW -UP TO MAMMOTEST CORE ?BIOPSY DONE OF THE RIGHT BREAST ON 02/16/93. ??THE NODULAR ?DENSITY IN THE UPPER MEDIAL BREAST HAS NOT SIGNIFICANTLY ?CHANGED FROM THE PRIOR STUDY . ??THERE IS NO EVIDENCE ?FOR MALIGNANCY. ??ROUTINE FOLLOW-U P MAMMOGRAPHY IS RECOMMENDED ?IN ONE YEAR. TECH-ID : ? 36 TRANS-ID: ? DMM Procedure Note Ayesha Cedeno MD - 11/26/2016Fo rmatting of this note might be different from the original. CLINICAL DATA: 6 MTH F/U RT BRST MTEST BX DONE ON RT MAMMO FINDINGS: RIGHT BREAST MAMMOGRAM IS A FOLLOW-UP T O MAMMOTEST CORE BIOPSY DONE OF THE RIGHT BREAST ON . THE NODULAR DENSITY IN THE UPPER MEDIAL BREAST HAS NOT SIGNIFICANTLY CHANGED FROM THE PRIOR STUDY 02/09/93. T HERE IS NO EVIDENCE FOR MALIGNANCY. ROUTINE FOLLOW-UP MAMMO GRAPHY IS RECOMMENDED IN ONE YEAR. TECH-ID : 36 TRANS-ID: DMM Bethel Owens MD RAD ILIA MM Bx Stereotactic Breast Bilat (02/16/1993 11:00 AM CDT) Anatomical Region Laterality Modality Breast Bilateral Mammography Specimen (Source) Anatomical Location Collection Method / Collectio n Time Received Time / Laterality Volume Narrative 02/16/1993 11:00 AM CDT CLINICAL DATA: ?MAMTEST/CORE TOO; NO ANTI; PREV PN MC FILMS FINDINGS: ?USING THE MAMMOTEST UNIT, A CC JOHN BUNCH AND A 14 GAUGE BIOPSY ?NEEDLE, SIX CORE BIOPSIES WERE OBT AINED FROM THE OVAL MASS ?LOCATED IN THE MEDIAL ASPECT OF TH E RIGHT BREAST. ??THE ?PATIENT TOLERATED THE PROCEDURE WE LL AND THERE WERE NO ?APPARENT COMPLICATIONS. TECH-ID : TRANS-ID: ? DMM Procedure Note Gil Anita Julienne - 11/26/2016 CLINICAL DATA: MAMTEST/CORE TOO; NO ANTI; PREV PNMC FI LMS FINDINGS: USING THE MAMMOTEST UNIT, A CC APPROACH AND A 14 GAUGE BIOPSY NEEDLE, SIX CORE BIOPSIES WERE OBTAINED FROM THE OVAL MASS LOCATED IN THE MEDIAL ASPECT OF THE RIG HT BREAST. THE PATIENT TOLERATED THE PROCEDURE WELL AN D THERE WERE NO APPARENT COMPLICATIONS. TECH-ID : TRANS-ID: DMM Bethel Owens MD RAD ILIA MM US Breast Lt (02/09/1993 11:00 AM CDT) Anatomical Region Laterality Modality Breast Left Ultrasound Specimen (Source) Anatomical Location Collection Method / Collectio n Time Received Time / Laterality Volume Narrative 02/09/1993 11:00 AM CDT CLINICAL DATA: ?RIGHT BREAST CYST ?PREVIOUS MAMMO SAME DAY FINDINGS: ?ULTRASOUND OF THE RIGHT BREAST JOSE WS NO CYST IN THE MEDIAL ?ASPECT OF THE RIGHT BREAST IN THE AREA OF THE MAMMOGRAPHIC ?ABNORMALITY. ??NO DISCRETE SOLID L ESIONS ARE IDENTIFIED ?EITHER. ??HOWEVER, THE LESION VISU ALIZED ON THE MAMMOGRAM ?WOULD BE CONSIDERED SOLID. ??SINCE IT APPEARS TO HAVE ENLARGED ?SINCE December, A SURGICAL CONSUL T IS SUGGESTED. TECH-ID : TRANS-ID: ? LAP Procedure Note Narciso Ashford MD - 11/26/2016Forma tting of this note might be different from the original. CLINICAL DATA: RIGHT BREAST CYST PREVIOUS MAMMO SAME DAY FINDINGS: ULTRASOUND OF THE RIGHT BREAST SHOWS NO CYST IN THE MEDIAL ASPECT OF THE RIGHT BREAST IN THE AREA OF THE MAMMOGRAPHIC ABNORMALITY. NO DISCRETE SOLID LESIONS ARE IDENTIFIED EITHER. HOWEVER, THE LESION VISUALIZED ON THE MAMMOGRAM WOULD BE CONSIDERED SOLID. SINCE IT JOHN EARS TO HAVE ENLARGED SINCE December, A SURGICAL CONSULT IS SUGGESTED. TECH-ID : TRANS-ID: LAP Víctor Sorensen MD RAD ILIA MM Mammogram Screening W CAD (02/09/1993 9:30 AM CDT) Anatomical Region Laterality Modality Breast Bilateral Mammography Specimen (Source) Anatomical Location Collection Method / Collectio n Time Received Time / Laterality Volume Impressions 02/09/1993 9:30 AM CDT : ?LOBULATED DENSITY, RIGHT MEDIAL BR EAST. ??PATIENT WILL BE ?SCHEDULED FOR ULTRASOUND BY THE RA DIOLOGY DEPARTMENT TO ?DETERMINE CYSTIC VS SOLID. FINDINGS: ?IN THE RIGHT MEDIAL BREAST AT APPR OXIMATELY 3:00, A LOBULATED ?8 X 11 MM SOFT TISSUE DENSITY IS P RESENT. ??A SIMILAR ?APPEARANCE, THOUGH SMALLER, WAS SE EN ON 12/25/89. ??THIS MAY ?REPRESENT A LOBULATED CYST. ??MORLEY CHRISTOPHE, ULTRASOUND IS SUGGESTED ?TO FURTHER EVALUATE. ??REMAINDER O F THE MAMMARY PARENCHYMA ?APPEARS MILDLY DENSE. ??TWO OF THE LARGEST DOMINANT MASSES IN ?THE LEFT UPPER, OUTER BREAST ARE N O LONGER PRESENT OR ?SMALLER. ??NO SUSPICIOUS CALCIFICA TIONS ARE SEEN. ??NO OTHER ?MAMMOGRAPHIC EVIDENCE OF MALIGNANC Y. TECH-ID : TRANS-ID: ? LAP Narrative 02/09/1993 9:30 AM CDT CLINICAL DATA: ?ROUTINE SCREEN ?PREV HERE Procedure Note Narciso Ashford MD - 11/26/2016Forma tting of this note might be different from the original. CLINICAL DATA: ROUTINE SCREEN PREV HERE IMPRESSION : LOBULATED DENSITY, RIGHT MEDIAL BREAST. PATIENT WILL BE SCHEDULED FOR ULTRASOUND BY THE RADIOLO GY DEPARTMENT TO DETERMINE CYSTIC VS SOLID. FINDINGS: IN THE RIGHT MEDIAL BREAST AT APPROXIMA TELY 3:00, A LOBULATED 8 X 11 MM SOFT TISSUE DENSITY IS PRESEN T. A SIMILAR APPEARANCE, THOUGH SMALLER, WAS SEEN ON 12/25/89. THIS MAY REPRESENT A LOBULATED CYST. HOWEVER, UL TRASOUND IS SUGGESTED TO FURTHER EVALUATE. REMAINDER OF THE M AMMARY PARENCHYMA APPEARS MILDLY DENSE. TWO OF THE LARGES T DOMINANT MASSES IN THE LEFT UPPER, OUTER BREAST ARE NO JESSY MARIE PRESENT OR SMALLER. NO SUSPICIOUS CALCIFICATIONS A RE SEEN. NO OTHER MAMMOGRAPHIC EVIDENCE OF MALIGNANCY. TECH-ID : TRANS-ID: LAP Víctor Sorensen MD RAD [facility]IA documented in this encounter Visit Diagnoses Not on filedocumented in this encounter Care Teams Stock Preparer Relationship Specialty Start Date End Date Víctor Sorensen MD PCP - General 12/18/10 05/02/18 [address] [place], [place] [address] documented as of this encounter
--- OUTSIDE RECORDS SUMMARY | 2022-04-27 03:01 | XMS_ITS | Encounter Summary ---
:1940 Author Organization [employer] Address [address] [place] [address] Care Team Providers Name Role Phone Unassigned, Provider Primary Care Provider Unavailable Encounter Details Date Type Department Care Team Description 08/03/2002 Office Visit Urgent Care [facility] [place] [address] [place], [place] [address] Social History Tobacco Use Types Packs/Day Years Used Date Smoking Tobacco: Never Assessed Sex Assigned at Date Recorded Not on file documented as of this encounter Last Filed Vital Signs Vital Sign Reading Time Taken Comments Blood Pressure 130/78 08/03/2002 12:30 PM PAPER CUTTER Pulse 66 08/03/2002 12:30 PM PAPER CUTTER Temperature 36.6 ??C (97.8 ??F) 08/03/2002 12:30 PM PAPER CUTTER Respiratory Rate 12 08/03/2002 12:30 PM PAPER CUTTER Oxygen Saturation - - Inhaled Oxygen Concentration - - Weight 62.6 kg (138 lb) 08/03/2002 12:30 PM PAPER CUTTER Height - - Body Mass Index - - documented in this encounter Progress Notes 08/03/2002 12:30 PM PAPER CUTTER Room # n/a Rooming time: 12:41 PM Sol Oliva is here today for L eye plugged. Accompanied by - unaccompanied. History is obtained from the patient. O2 Sat.: not done. Peak Flow: not done. AccuCheck: not done. Weight taken with patient clothed? Yes. Temperature source: oral. Pulse source: radial B/P was taken on the right arm arm. B/ cuff size:Regular. Tobacco Status -Current smoker - Interested in quitting? YES. Lives in a smoking environment : YES. Vision checked: not done, not done. Last Tetanus: up to date, Immunizations up to date: YES. In the past year, have you been physically or emotionally mistreated by someone important to you? NO. Resources given? NO. nursery attendant offered -NOT APPLICABLE. Health Education given -NO. Primary provider: Provider Unassigned Contact phone number [phone] (home) Alternate phone number Nata Galdamez RN 08/03/2002 12:41 PM Marleen Santos - 08/03/2002 12:00 AM CSTS. A 61 year old lady who is presenting with a plugged left ear requiring ear washing. She has had cerumen impaction in the past and knows that this is what it is. She does have a slight cold, but she has no fevers and no other symptoms. O. On exam right external canal and tympanic membrane are normal. On the left the external canal is occluded by a large amount of thick yellow, hard wax that appears to be healthy, no pain or tenderness in the ear. The ear was washed and large amount of cerumen was recovered and re-examination after ear washing reveals the ear canal and tympanic membrane to be normal. A. Cerumen Impaction IN SUMMARY: CERUMEN IMPACTION cc: R CUTTER documented in this encounter Plan of Treatment Not on filedocumented as of this encounter Visit Diagnoses Diagnosis Impacted cerumen documented in this encounter Care Teams Bag Loader Machine Operator Relationship Specialty Start Date End Date Unassigned, Provider PCP - General 08/25/00 12/17/[address] [place] [address] documented as of this encounter
--- OUTSIDE RECORDS SUMMARY | 2022-04-27 03:01 | XMS_ITS | Encounter Summary ---
:1940 [facility] Address [address], [place] [address] Care Team Providers Name Role Phone Unassigned, Provider Primary Care Provider Unavailable Encounter Details Date Type Department Care Team Description 01/26/2001 Orders Only Unassigned, Prov ider [address] [place] [address] Social History Tobacco Use Types Packs/Day Years Used Date Smoking Tobacco: Never Assessed Sex Assigned at Date Recorded Not on file documented as of this encounter Plan of Treatment Not on filedocumented as of this encounter Visit Diagnoses Not on filedocumented in this encounter Care Teams Technical Systems Architect Relationship Specialty Start Date End Date Unassigned, Provider PCP - General 08/25/00 12/17/10 [address] [place] [address] documented as of this encounter
--- OUTSIDE RECORDS SUMMARY | 2022-04-27 03:01 | XMS_ITS | Encounter Summary ---
:1940 Author Organization [facility] Address [address] [place] [address] Care Team Providers Name Role Phone Judy Sorensen MD Primary Care Provider Encounter Details Date Type Department Care Team Description 01/15/1993 PN Conversion Only PRESYBETERIAN CONVERSION Judy Sorensen MD [address] [place] [address] (Wo rk) Social History Tobacco Use Types Packs/Day Years Used Date Smoking Tobacco: Never Assessed Sex Assigned at Date Recorded Not on file documented as of this encounter Plan of Treatment Not on filedocumented as of this encounter Procedures Procedure Name Priority Date/Time Associated Comments Diagnosis CONVERSION DEFAULT Routine 01/12/1993 2:29 PM Res ults for this INTERFACE ORDER CDT procedure ar e in the results section. documented in this encounter Results Conversion Default Interface Order (01/12/1993 2:29 PM CDT) P athologist Signature PAP Smear See Detail HP CONVERSION Comment: CERVICAL SMEAR Specimen Adequacy: Satisfactory for int erpretation. Within normal limits. Endocervical cells present. Specimen (Source) Anatomical Collection Method Collection Time Re ceived Time Location / / Volume Laterality 01/12/1993 2:29 PM CDT Judy Sorensen MD LAB_1 Performing Organization Address City/State/ZIP Code Phon e Number HP CONVERSION documented in this encounter Visit Diagnoses Not on filedocumented in this encounter Care Teams Social Work Case Manager Relationship Specialty Start Date End Date Judy Sorensen MD PCP - General 12/18/10 05/02/18 [address] [place] [address] documented as of this encounter
--- OUTSIDE RECORDS SUMMARY | 2022-04-27 03:01 | XMS_ITS | Encounter Summary ---
:1940 Author Organization [employer] Address [address] [place] [address] Care Team Providers Name Role Phone Judy Sorensen MD Primary Care Provider Encounter Details Date Type Department Care Team Description 11/06/2002 PN Conversion Only [facility] [address] [place], [place] [address] Social History Tobacco Use Types Packs/Day Years Used Date Smoking Tobacco: Never Assessed Sex Assigned at Date Recorded Not on file documented as of this encounter Progress Notes Jesse Grady MD - 11/06/2002 12:01 AM CST Progress Notes signed by Jesse Grady MD at 12/06/02 1608 Author: Jesse Grady MD Service: (none) Author Type: Physician Filed: 01/06/11 1215 Note Time: 11/06/02 0001 Status: Signed Resist Coater Developer: Jesse Grady MD (Physician) NAME: SHU OLIVA MR: [id number] ACCT: VISIT: [id number] DICTATING CLINICIAN: Eliot GRADY MD,PhD JOB: [id number] CLINIC DEXA REPORT DATE OF VISIT: 11/06/2002 : 1940. SUBJECTIVE: REFERRING PROVIDER: JUDY GARCÍA MD INTERPRETING PHYSICIAN: Eliot GRADY MD,PhD : OSTEOPOROSIS RISK FACTORS FROM PATIENT QUESTIONNAIRE: Ggxrt-vlv-naxt-old, postmenopausal woman, lack of HRT since menopause 12 years ago, ongoing 43 year history of cigarette smoking, inadequate calcium and vitamin D intake, family history of osteoporosis (mother with a hip fracture), and thin body habitus. OBJECTIVE: SITE BMD T-SCORE* %PEAK Z-SCORE %MATCHED ADULT PEER L1-L4 0.812 -2.1 78% -0.6 93% Tot L Hip 0.777 -1.8 82% -0.3 95% Fem Neck 0.645 -1.8 76% -0.5 92% Tot L Forearm 0.502 -1.2 89% 0.2 102% * The T-score = Standard Deviations Above/Below Mean Peak Adult The Z-score = Standard Deviations Above/Below Mean Age/Sex - Matched Peers WHO DEFINITIONS: Normal BMD: T-score > -1.0 Osteopenia: T-score between -1.0 and -2.5 Osteoporosis: T-score < -2.5 ASSESSMENT: Moderate osteopenia of the lumbar spine. Mild osteopenia of the hip, femoral neck, and forearm. BMD of these regions is about average for age. Fragility fracture risk is mildly increased. RECOMMENDATIONS: Optimize daily intake of calcium to at least 1200 mg and vitamin D to 400-800 IU. Encourage cessation of cigarette smoking because it causes bone loss. Monitor BMD with a repeat measurement in three to four years. FINAL IMPRESSION: Bone density on Hologic QDR [address] SL. CD:[id number] C: 11/21/02 09:31 DOCUMENT: [id number] SLIDE MACHINE SETTER documented in this encounter Plan of Treatment Not on filedocumented as of this encounter Visit Diagnoses Not on filedocumented in this encounter Care Teams Vp Of Customer Experience Strategy Relationship Specialty Start Date End Date Judy Sorensen MD PCP - General 12/18/10 05/02/18 [address] [facility] [place] [address] documented as of this encounter
--- OUTSIDE RECORDS SUMMARY | 2022-04-27 03:01 | XMS_ITS | Encounter Summary ---
:1940 Author Organization [employer] Address [address] [place] [address] Care Team Providers Name Role Phone Unavailable Primary Care Provider Unavailable Encounter Details Date Type Department Care Team Description 12/31/1998 - Hospital Encounter [facility] 01/01/1999 [facility] [address] [place] [address] Social History Tobacco Use Types Packs/Day Years Used Date Smoking Tobacco: Never Assessed Sex Assigned at Date Recorded Not on file documented as of this encounter Discharge Summaries Derek Schultz MD - 01/01/1999 12:01 AM CDT Discharge Summaries signed by Distribute [employer] And at 08/25/99 1200 Author: Derek Schultz MD Service: (none) Author Type: Physician Filed: 01/05/11 0949 Note Time: 01/01/99 0000 Status: Signed Financial Coach: Derek Schultz MD (Physician) [id number].[facility] QCQCQC DISCHARGE SUMMARY ADMITTING DIAGNOSIS: DISCHARGE DIAGNOSIS: 1. Chest pain syndrome, possibly angina. 2. Coronary angiography showing normal left ventricular function. No significant coronary disease in the left anterior descending and right coronary arteries. Moderate plaque in the more distal circumflex artery with normal left ventricular function. 3. Cigarette abuse. 4. Peripheral vascular disease. 5. Note that cardiac enzymes and EKG, telemetry and cardiac exam were all normal. HISTORY: Ivmcr-qtody-unsd-old woman who is admitted to [facility] with chest pain suspicious for unstable angina. EKG was normal and enzymes were negative. HOSPITAL COURSE: The patient was transferred for coronary angiography. This was done on 12/31/98 with out problems. The patient was not a candidate for angioplasty or any intervention. She was observed the next day ambulating in the halls. EKG and telemetry remained normal. She is discharged to clinic follow-up. DISCHARGE INSTRUCTIONS: 1. The patient will not smoke. She was counseled extensively about this. 2. Discharge medications atenolol 25 per day, aspirin one per day. 3. The patient will follow-up with Dr. Larsen in a couple of weeks. She needs to know what her cholesterol is and she is to contact either Dr. Larsen or myself if any increase or change in symptoms, problems. DEREK SCHULTZ MD CC: VÍCTOR LARSEN MD TJD:[id number] C: DOCUMENT: [id number] END OF RECORD: NER/MEDICAL EXAMINER documented in this encounter Progress Notes Derek Schultz MD - 12/31/1998 12:01 AM CDT Procedures signed by Distribute [employer] And at 08/25/99 1200 Author: Derek Schultz MD Service: (none) Author Type: Physician Filed: 01/05/11 0948 Note Time: 12/31/98 0000 Status: Signed Financial Coach: Derek Schultz MD (Physician) [id number].[facility] QCQCQC CARDIAC CATHETERIZATION DATE OF PROCEDURE: 12/31/1998 PREPROCEDURE DIAGNOSIS: Anginoid chest pain, rule out myocardial infarction. POSTPROCEDURE DIAGNOSIS: 1. Plaquing of coronary arteries, with moderate circumflex lesion and normal left ventricular function. 2. Moderate right iliac stenosis. PROCEDURE: Left heart catheterization and angiography. Fluroscopy time was 3.9 minutes, with 91 cc of Op-Ray dye used, 5 Uzbek catheters. A left 3.5 catheter was used to cannulate the left main. RESULTS: 1. The left main looked okay. 2. The left anterior descending system was relatively small. I did not see any significant areas of narrowing, only mild plaquing. 3. The circumflex system was of moderate size. The obtuse marginal branch was okay. In the main circumflex, fairly far down, at the end of the proximal two-thirds, there was an area of plaquing, approximately 70% narrowed. In some views it looked much less but in the FRANK cranial view it looked worse. It did not look to be critically severe. 4. The right coronary artery was dominant. There were mild, diffuse luminal irregularities but no significant areas of narrowing were seen. The posterior descending and posterolateral branches looked okay. 5. Left ventricular was somewhat hyperdynamic, with an estimated ejection fraction of 65% to 70%. There was no obvious valvular pathology. SUBJECTIVE: INDICATIONS: OBJECTIVE: ASSESSMENT: The patient has coronary plaquing and a lesion in her main circumflex, supplying a modest amount of myocardium. It is still unclear whether she has true angina, whether this is an unstable plaque, etc. She also has peripheral vascular disease. I note that when we placed a right femoral sheath, we did have trouble advancing the guide wire. Therefore, I performed a brief injection of dye into the right iliac system and this did show some irregularities and narrowing but it was patent. PLAN: We should continue to treat her medically and optimize risk factors. DEREK SCHULTZ MD TJD:[id number] C: DOCUMENT: [id number] END OF RECORD: NER/MEDICAL EXAMINER documented in this encounter Miscellaneous Notes Miscellaneous - Derek Schultz MD - 01/01/1999 1:57 PM CDT ICD-9-CM ICD-9-CM Narrative description Code ======== DIAGNOSES Principal: CHEST PAIN NOS 786.50 Secondary: ANGINA PECTORIS NEC/NOS 413.9 TOBACCO USE DISORDER 305.1 CORONARY ATHEROSCLEROSIS;[place] CORONARY VESSEL 414.01 ATHEROSCLEROSIS,[place] ARTERIES OF EXTREM.,UNSPEC. 440.20 PROCEDURES Provider Date Principal: LEFT HEART CARDIAC CATH 37.22 Secondary: CORONAR ARTERIOGR-2 CATH 88.56 LT HEART ANGIOCARDIOGRAM 88.53 CPT4 documented in this encounter Plan of Treatment Not on filedocumented as of this encounter Procedures Procedure Name Priority Date/Time Associated Comments Diagnosis CONVERSION DEFAULT Routine 01/01/1999 5:00 AM Res ults for this INTERFACE ORDER CDT procedure ar e in the results section. CONVERSION DEFAULT Routine 01/01/1999 5:00 AM Res ults for this INTERFACE ORDER CDT procedure ar e in the results section. CONVERSION DEFAULT Routine 01/01/1999 5:00 AM Res ults for this INTERFACE ORDER CDT procedure ar e in the results section. CONVERSION DEFAULT Routine 01/01/1999 5:00 AM Res ults for this INTERFACE ORDER CDT procedure ar e in the results section. CONVERSION DEFAULT Routine 01/01/1999 5:00 AM Res ults for this INTERFACE ORDER CDT procedure ar e in the results section. documented in this encounter Results (ABNORMAL) Conversion Default Interface Order (01/01/1999 5:00 AM CDT) athologist Signature Cholesterol 219 (HH) 125 HP CONVERSION 199mg/d L Specimen (Source) Anatomical Collection Method Collection Time Re ceived Time Location / / Volume Laterality 01/01/1999 5:00 AM CDT Derek Schultz MD LAB_1 Performing Organization Address City/[facility] Code Phon e Number HP CONVERSION Conversion Default Interface Order (01/01/1999 5:00 AM CDT) P athologist Signature Triglycerides 97 00 250mg/d HP CONVERSION L Specimen (Source) Anatomical Collection Method Collection Time Re ceived Time Location / / Volume Laterality 01/01/1999 5:00 AM CDT Derek Schultz MD LAB_1 Performing Organization Address City/State/ZIP Code Phon e Number HP CONVERSION Conversion Default Interface Order (01/01/1999 5:00 AM CDT) P athologist Signature HDL Cholesterol 49 36 80mg/d HP CONVERSION L Specimen (Source) Anatomical Collection Method Collection Time Re ceived Time Location / / Volume Laterality 01/01/1999 5:00 AM CDT Derek Schultz MD LAB_1 Performing Organization Address City/[facility] Phon e Number HP CONVERSION (ABNORMAL) Conversion Default Interface Order (01/01/1999 5:00 AM CDT) Patholo gist Method Time Signature LDL Calculated 151 (HH) 66 129mg/d HP CONVERSION L Specimen (Source) Anatomical Collection Method Collection Time Re ceived Time Location / / Volume Laterality 01/01/1999 5:00 AM CDT Derek Schultz MD LAB_1 Performing Organization Address [facility] Phon e Number HP CONVERSION Conversion Default Interface Order (01/01/1999 5:00 AM CDT) P athologist Signature Magnesium 1.8 1.5 2.4mg/d HP CONVERSION L Specimen (Source) Anatomical Collection Method Collection Time Re ceived Time Location / / Volume Laterality 01/01/1999 5:00 AM CDT Derek Schultz MD LAB_1 Performing Organization Address [facility] Phon e Number HP CONVERSION documented in this encounter Visit Diagnoses Not on filedocumented in this encounter
--- OUTSIDE RECORDS SUMMARY | 2022-04-27 03:01 | XMS_ITS | Encounter Summary ---
:1940 Author Organization [facility] Address [address] [place] [address] Care Team Providers Name Role Phone Judy Sorensen MD Primary Care Provider Encounter Details Date Type Department Care Team Description 01/13/1993 PN Conversion Only CHRISTIANITY CONVERSION Judy Sorensen MD [address] [place] [address] (Wo rk) Social History Tobacco Use Types Packs/Day Years Used Date Smoking Tobacco: Never Assessed Sex Assigned at Date Recorded Not on file documented as of this encounter Plan of Treatment Not on filedocumented as of this encounter Procedures Procedure Name Priority Date/Time Associated Comments Diagnosis CONVERSION DEFAULT Routine 01/12/1993 3:31 PM Res ults for this INTERFACE ORDER CDT procedure ar e in the results section. documented in this encounter Results Conversion Default Interface Order (01/12/1993 3:31 PM CDT) [facility] Method Time Signature Surgical See Detail HP CONVERSION Pathology Comment: ? Endometrium ? Fragmented inactive endometrium, with focal ciliated metaplasia, without ? hyperplasia, atypia, or polyps. Specimen (Source) Anatomical Collection Method Collection Time Re ceived Time Location / / Volume Laterality 01/12/1993 3:31 PM CDT Judy Sorensen MD LAB_1 Performing Organization Address City/State/ZIP Code Phon e Number HP CONVERSION documented in this encounter Visit Diagnoses Not on filedocumented in this encounter Care Teams Real Estate Assessor Relationship Specialty Start Date End Date Judy Sorensen MD PCP - General 12/18/10 05/02/18 [address] [place] [address] documented as of this encounter
--- OUTSIDE RECORDS SUMMARY | 2022-04-27 03:01 | XMS_ITS | Encounter Summary ---
:1940 Author [facility] Address [address] [address] Care Team Providers Name Role Phone Unassigned, Provider Primary Care Provider Unavailable Encounter Details Date Type Department Care Team Description 01/04/2002 Orders Only Unassigned, Prov ider [address] [place] [address] Social History Tobacco Use Types Packs/Day Years Used Date Smoking Tobacco: Never Assessed Sex Assigned at Date Recorded Not on file documented as of this encounter Plan of Treatment Not on filedocumented as of this encounter Visit Diagnoses Not on filedocumented in this encounter Care Teams Project Management It Specialist Relationship Specialty Start Date End Date Unassigned, Provider PCP - General 08/25/00 12/17/10 [address] [place] [address] documented as of this encounter
--- OUTSIDE RECORDS SUMMARY | 2022-04-27 03:01 | XMS_ITS | Encounter Summary ---
:1940 Author Organization [facility] Address [address] [place] [address] Care Team Providers Name Role Phone Judy Sorensen MD Primary Care Provider Encounter Details Date Type Department Care Team Description 02/16/1993 PN Conversion Only HOAHAOISM CONVERSION Bethel Owens MD [address] [place] [address] Social History Tobacco Use Types Packs/Day Years Used Date Smoking Tobacco: Never Assessed Sex Assigned at Date Recorded Not on file documented as of this encounter Plan of Treatment Not on filedocumented as of this encounter Procedures Procedure Name Priority Date/Time Associated Comments Diagnosis CONVERSION DEFAULT Routine 02/16/1993 3:39 PM Res ults for this INTERFACE ORDER CDT procedure ar e in the results section. documented in this encounter Results Conversion Default Interface Order (02/16/1993 3:39 PM CDT) [facility] Method Time Signature Surgical See Detail HP CONVERSION Pathology Comment: ? Upper medial right breast ? Fibrocystic changes, needle biops ies designated right breast upper media Specimen (Source) Anatomical Collection Method Collection Time Re ceived Time Location / / Volume Laterality 02/16/1993 3:39 PM CDT Bethel Owens MD LAB_1 Performing Organization Address City/State/ZIP Code Phon e Number HP CONVERSION documented in this encounter Visit Diagnoses Not on filedocumented in this encounter Care Teams Military Technology Manager Relationship Specialty Start Date End Date Judy Sorensen MD PCP - General 12/18/10 05/02/18 [address] [place] [address] documented as of this encounter
--- OUTSIDE RECORDS SUMMARY | 2022-04-27 03:01 | XMS_ITS | Encounter Summary ---
:1940 Author Organization [facility] Address [address] [address] Care Team Providers Name Role Phone Unassigned, Provider Primary Care Provider Unavailable Encounter Details Date Type Department Care Team Description 04/08/2002 Orders Only Unassigned, Prov ider [address] [place] [address] Social History Tobacco Use Types Packs/Day Years Used Date Smoking Tobacco: Never Assessed Sex Assigned at Date Recorded Not on file documented as of this encounter Plan of Treatment Not on filedocumented as of this encounter Visit Diagnoses Not on filedocumented in this encounter Care Teams Veneer Taper Relationship Specialty Start Date End Date Unassigned, Provider PCP - General 08/25/00 12/17/10 [address] [place] [address] documented as of this encounter
--- OUTSIDE RECORDS SUMMARY | 2022-04-27 03:01 | XMS_ITS | Encounter Summary ---
:1940 Author Organization [employer] Address [address] [place] [address] Care Team Providers Name Role Phone Unassigned, Provider Primary Care Provider Unavailable Encounter Details Date Type Department Care Team Description 10/28/2002 Hospital Encounter DENOMINATIONAL CONVERSION Judy Sorensen MD [address] [place], [place] [address] (Wo rk) Social History Tobacco Use Types Packs/Day Years Used Date Smoking Tobacco: Never Assessed Sex Assigned at Date Recorded Not on file documented as of this encounter Medications at Time of Discharge Medication Sig Dispensed Refills Start Date End Date ATENOLOL 25 MG OR TABS TAKE 1 TABLET DAILY 90 3 03/19 ZOCOR 40 MG OR TABS TAKE 1 TABLET DAILY 90 3 002 02/18/2003 documented as of this encounter Plan of Treatment Not on filedocumented as of this encounter Procedures Procedure Name Priority Date/Time Associated Diagnosis Comme nts N/O NM BONE SCAN Routine 10/28/2002 9:30 AM Resul ts for this WHOLE BODY ELECTRICAL LINEWORKER procedure are i n the results section. documented in this encounter Results N/O NM Bone Scan Whole Body (10/28/2002 9:30 AM ELECTRICAL LINEWORKER) Anatomical Region Laterality Modality Skeletal Other Specimen (Source) Anatomical Location Collection Method / Collectio n Time Received Time / Laterality Volume Impressions 10/28/2002 9:30 AM ELECTRICAL LINEWORKER : ??Negative whole body bone scan. Lak C: 10/28/02 2:5 1:30 PM Narrative 10/28/2002 9:30 AM ELECTRICAL LINEWORKER Injected dose 27.3 mCi Tc99m MDP lot #[id number]. There are no scintigraphic abnormalities to suggest m etastatic disease. There is no significant arthritic uptake . Specifically, no asymmetry is noted at the shoulders and hips. Procedure Note Judy Larsen - 11/26/2016Formatting o f this note might be different from the original. Injected dose 27.3 mCi Tc99m MDP lot #[id number]. There are no scintigraphic abnormalities to suggest m etastatic disease. There is no significant arthritic uptake . Specifically, no asymmetry is noted at the shoulders and hips. IMPRESSION : Negative whole body bone scan. Lak C: 10/28/02 2:5 1:30 PM Judy Sorensen MD RAD NM documented in this encounter Visit Diagnoses Not on filedocumented in this encounter Care Teams Virtual Assistant Relationship Specialty Start Date End Date Unassigned, Provider PCP - General 08/25/00 12/17/[address] [place] [address] documented as of this encounter
== END 2022-04-21 08:31 | disposition home or self-care (01) ==
LOC: NFLDREF 08:31
PROVIDERS: PCP Family Medicine; Visit Provider Family Medicine
DX: J96.10 Chronic respiratory failure, unspecified whether with hypoxia or hypercapnia (principal); N18.9 Chronic kidney disease, unspecified; I10 Essential (primary) hypertension
CPT/HCPCS: 80048

== ENCOUNTER 2022-05-04 09:14 | Outpatient (CLI) | payer MEDICARE, SELFPAY ==
--- NOTE | 2022-05-04 09:15 | CRLHL7_ITS ---
For Patients: As a result of the Century Cures Act, medical imaging exams and procedure reports are released immediately into your electronic medical record. You may view this report before your referring provider. If you have questions, please contact your health care provider. BILATERAL SCREENING MAMMOGRAM WITH COMPUTER-AIDED DETECTION AND TOMOSYNTHESIS TECHNIQUE: CC and MLO views were obtained. These mammographic images have been obtained using full-field digital technique. These mammographic images were interpreted with the benefit of computer-aided detection. Breast Tomosynthesis was used in this interpretation. COMPARISON FILM: 04/26/21, 09/30/19, 05/30/18. FINDINGS: There are scattered areas of fibroglandular density IMPRESSION: There is no radiographic evidence for malignancy. ASSESSMENT: BI-RADS Category 2: Benign RECOMMENDATION: Routine screening mammogram in 1 year. A lay language report of this examination will be provided to the patient. Julius Navarro M.D. Diagnostic Radiologist [email or web address] ESTEPHANIE/Dictated by: Julius Navarro MD @ 05/04/2022 12:39:00 PM (Electronically Signed)
--- OUTSIDE RECORDS SUMMARY | 2022-05-04 09:17 | XMS_ITS | Encounter Summary ---
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 [facility] Procedures Prior Auth Rad Tx [place] RADTN [place] DEL >=1 MEV COMPLEX [address] [place] [address] Referral ID Status Reason Start Date Expiration Date Visits V isits Requested Authorized [id number] Authorized 08/16/2021 07/20/2022 5 5 Encounter Details Date Type Department Care Team Description 08/19/2021 Hospital Encounter Department of Radiation Evon Stone, Oncology in [place] [address] [facility] [address] [place], [place] [phone] [phone] Social History Tobacco Use Types Packs/Day Years [...] or relatives? How often do you attend holiness or Never 2020 judaism services? Do you belong to any clubs or No 06/11/2021 organizations such as holiness groups, unions, fraternal or athletic groups, or [...] place to sleep or slept in a fpc (including now)? Education Answer Date Recorded What [...]
--- OUTSIDE RECORDS SUMMARY | 2022-05-04 09:17 | XMS_ITS | Encounter Summary ---
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 [facility] Procedures Management Visit [address] [place] [address] Referral ID Status Reason Start Date Expiration Date Visits V isits Requested Authorized [id number] Authorized 07/20/2021 07/20/2022 10 10 Encounter Details Date Type Department Care Team Description 08/18/2021 Hospital Encounter Department of Mukesh Stone Neoplasm Radiation Oncology [place] Of Breast Lower in [place], [address] [place], [place] Female Right (HCC) [address] [place] [address] [place], [place] [phone] [address] (Work) [phone] Social History Tobacco Use Types Packs/Day Years [...] or relatives? How often do you attend jain or Never 2020 tenriism services? Do you belong to any clubs or No 06/11/2021 organizations such as jain groups, unions, fraternal or athletic groups, or [...] place to sleep or slept in a retirement (including now)? Education Answer Date Recorded What [...] 36.3 ??C (97.3 ??F) 08/18/2021 9:46 AM REFRIGERATION SERVICE TECHNICIAN Respiratory Rate - - Oxygen Saturation - - Inhaled Oxygen Concentration - - Weight 49.3 kg (108 lb 11 oz) 08/18/2021 9:46 AM REFRIGERATION SERVICE TECHNICIAN Height - - Body Mass Index 21.65 [...] Right (HCC) SUPERVISED BY: Mukesh Stone M.D. ([id number]) HISTORY OF PRESENT ILLNESS Mrs. Sol Oliva is an 80 y.o. 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 ??Angiolymphatic invasion was absent. ??Associated [...] Stage IA (pT1c, cN0, cM0, G2, ER+, [place]+, HER2-) invasive mucinous carcinoma of the upper-outer [...] weeks. I reviewed Breast Self Examination pamphlet [id number] with patient today. Joyce Bennett CNP will see patient tomorrow in follow up visit. Patient will discuss anastrazole manager intermediate plan with Joyce tomorrow. She will contact us with any questions or concerns. We will continue with radiation treatment as planned. Patient stated a full understanding to the plan of care discussed today. Toxicities reviewed with Dr. Stone today. Signed by: Enma Martinez R.N. 08/18/2021 10:30 AM REFRIGERATION SERVICE TECHNICIAN I saw and evaluated the patient and [...] by: Mukesh Stone M.D. 08/18/2021 12:55 PM REFRIGERATION SERVICE TECHNICIAN [facility] [address] [place] [address] IGERATION SERVICE TECHNICIAN documented in this encounter Miscellaneous Notes Addendum Note - Lenora Joiner CThaoNThaoA. - 08/18/2021 9:45 AM REFRIGERATION SERVICE TECHNICIAN Encounter addended by: Lenora Joiner C.NThaoAThao on: 08/19/2021 7:04 AM Actions taken: SmartForm saved, Letter saved IGERATION SERVICE TECHNICIAN documented in this encounter Plan of [...]
--- OUTSIDE RECORDS SUMMARY | 2022-05-04 09:17 | XMS_ITS ---
:1940 Author Organization [facility] Address [address] [place] [address] Care Team Providers Name Role Phone Unavailable Primary Care Provider Unavailable Active Problems Problem Noted Date Malignant Neoplasm Of Breast Lower Outer Quadrant Fema le Right 07/19/2021 Cancer Staging: Pathologic stage from : No Stage Recommended (pT1c, cN0, cM0, G2, ER+, [place]+, HER2-) - Unsigned Murmur Aortic Outflow 06/14/2021 [...] Elapsed Days Session Dose Total Dos e [id number] 08/20/2021 4 520 cGy 2,600 cGy
--- OUTSIDE RECORDS SUMMARY | 2022-05-04 09:17 | XMS_ITS | Encounter Summary ---
:1940 Author Organization [facility] Address [address] [place] [address] Care Team Providers Name Role Phone Unavailable Primary Care Provider Unavailable Encounter Details Date Type Department Care Team Description 08/20/2021 Hospital Encounter Department of Radiation Evon Stone, Oncology in [place] [address] [facility] [address] [place], [place] [phone] Social History Tobacco Use Types Packs/Day Years [...] or relatives? How often do you attend yarsanism or Never 2020 congregational services? Do you belong to any clubs or No 06/11/2021 organizations such as yarsanism groups, unions, fraternal or athletic groups, or [...]
--- OUTSIDE RECORDS SUMMARY | 2022-05-04 09:17 | XMS_ITS | Encounter Summary ---
:1940 Author Organization [facility] Address [address] [place] [address] Care Team Providers Name Role Phone Unavailable Primary Care Provider Unavailable Reason for Referral Outpatient (Routine) - Closed Specialty Diagnoses / Procedures Referred By Contact Refer red To Contact Radiation Oncology Muk[facility] M .[facility]. 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 [facility] Region Procedures Initial Rad Onc Treatment Planning CT Simulation [address] [place], [place] [address] Referral ID Status Reason Start Date Expiration Date Visits Requ ested Visits Authorized [id number] Closed 07/20/2021 07/20/2022 1 1 Reason for Visit Appointment Request (Routine) - Closed Specialty Diagnoses / Procedures Referred By Contact Refer red To Contact Radiation Oncology Diagnoses Malignant Neoplasm Of Breast Female Right (HCC) Matilde Serrato M.D. [address] [place] [address] Referral ID Status Reason Start Date Expiration Date Visits Requ ested Visits Authorized [id number] Closed 07/12/2021 07/12/2022 1 1 Encounter Details Date Type Department Care Team Description 07/20/2021 Hospital Encounter Department of Mukesh Stone Neoplasm Radiation Oncology [place] Of Breast Lower in [place], [facility] [address] [place], [place] Female Right (HCC) [address] [facility] [address] (Primary Dx) [place], [place] [phone] [address] (Work) [phone] Social History Tobacco Use Types Packs/Day Years [...] or relatives? How often do you attend voodoo or Never 2020 christianity services? 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 Angiolymphatic invasion was absent. Associated [...] the right breast demonstrated invasive mucinous carcinoma, [place] grade 2, measuring 1.5 cm. DCIS or [...] lumpectomy, 2020 SOCIAL HISTORY She lives in [place], [place]. She is to her spouse, He. [...] Stage IA (pT1c, cN0, cM0, G2, ER+, [place]+, HER2-) invasive mucinous carcinoma of the upper-outer [...] M.D. 07/20/2021 6:38 PM CDT Radiation Oncology [facility] [address] [place] [address] documented in this encounter Miscellaneous Notes Addendum [...] Treatment Planning CT Simulation (08/02/2021 2:03 PM FURNACE ERECTOR) Specimen (Source) Anatomical Location Collection Method / Collectio n Time Received Time / Laterality Volume Narrative PILAR SHANNON - 08/02/2021 2:03 PM FURNACE ERECTOR Marga Armenta, RTT ? 08/02/2021 ??2:03 PM Initial Rad Onc Treatment Planning CT Si mulation Date/Time: 08/02/2021 2:03 PM Performed by: Mukesh Stone M.D. Authorized by: Mukesh Stone M.D. Mukesh Stone M.D. 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
--- OUTSIDE RECORDS SUMMARY | 2022-05-04 09:17 | XMS_ITS | Encounter Summary ---
:1940 Author Organization [facility] Address [address] [place] [address] Care Team Providers Name Role Phone Unavailable Primary Care Provider Unavailable Reason for Referral Outpatient (Routine) - Authorized Specialty Diagnoses / Procedures Referred By Contact Refer red To Contact Vascular Medicine Diagnoses Stenosis Carotid Artery Bilateral Alethea Patterson M.D. [facility] [address] [place] [address] Referral ID Status Reason Start Date Expiration Date Visits V isits Requested Authorized [id number] Authorized 07/28/2021 07/28/2022 1 1 ING MANAGER Encounter Details Date Type Department Care Team Description [facility] [place] Artery Bilateral [address] [facility] [address] [facility] (Primary Dx) [place] [address] [place], [place] [phone] Social History Tobacco Use Types Packs/Day Years [...] or relatives? How often do you attend rastafari or Never 2020 taoist services? Do you belong to any clubs or No 06/11/2021 organizations such as rastafari groups, unions, fraternal or athletic groups, or [...] place to sleep or slept in a [place] [facility] [place] facility (including now)? Education Answer Date Recorded What is the highest level of school you have completed or 11 th grade 06/11/2021 the highest degree you have received? Sex Assigned at Date Recorded Female 06/11/2021 12:59 PM CDT documented as of this encounter Plan of Treatment Scheduled Referrals Name Type Priority Associated Diagnoses Order S [facility] Vascular Center Outpatient Referral Routine Stenosis Carotid E xpected: Referral Artery Bilateral 07/28/2021 (Approximate), Expires: 07/28/2024 documented as of this encounter Visit Diagnoses Diagnosis Stenosis Carotid Artery Bilateral - Prim silvio documented in this encounter
--- OUTSIDE RECORDS SUMMARY | 2022-05-04 09:17 | XMS_ITS | Encounter Summary ---
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 [facility] Procedures Prior Auth Rad Tx [place] RADTN [place] DEL >=1 MEV COMPLEX [address] [place] [address] Referral ID Status Reason Start Date Expiration Date Visits V isits Requested Authorized [id number] Authorized 08/16/2021 07/20/2022 5 5 Encounter Details Date Type Department Care Team Description 08/18/2021 Hospital Encounter Department of Radiation Evon Stone, Oncology in [place] [address] [facility] [address] [place] [phone] [phone] Social History Tobacco Use Types Packs/Day Years [...] or relatives? How often do you attend quaker or Never 2020 episcopalian services? Do you belong to any clubs or No 06/11/2021 organizations such as quaker groups, unions, fraternal or athletic groups, or [...] place to sleep or slept in a skilled nursing (including now)? Education Answer Date Recorded What [...]
--- OUTSIDE RECORDS SUMMARY | 2022-05-04 09:17 | XMS_ITS | Encounter Summary ---
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 [facility] Procedures Prior Auth Rad Tx [place] RADTN [place] DEL >=1 MEV COMPLEX [address] [place] [address] Referral ID Status Reason Start Date Expiration Date Visits V isits Requested Authorized [id number] Authorized 08/16/2021 07/20/2022 5 5 Encounter Details Date Type Department Care Team Description 08/16/2021 Hospital Encounter Department of Radiation Evon Stone, Oncology in [place] [address] [facility] [address] [place], [place] [phone] [phone] Social History Tobacco Use Types Packs/Day Years [...] or relatives? How often do you attend religious or Never 2020 mosque services? Do you belong to any clubs or No 06/11/2021 organizations such as religious groups, unions, fraternal or athletic groups, or [...]
--- OUTSIDE RECORDS SUMMARY | 2022-05-04 09:17 | XMS_ITS | Encounter Summary ---
:1940 Author Organization 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 [facility] Procedures Prior Auth Rad Tx [place] RADTN [place] DEL >=1 MEV COMPLEX [address] [place] [address] Referral ID Status Reason Start Date Expiration Date Visits V isits Requested Authorized [id number] Authorized 08/16/2021 07/20/2022 5 5 Encounter Details Date Type Department Care Team Description 08/17/2021 Hospital Encounter Department of Radiation Evon Stone, Oncology in [place] [address] [facility] [address] [place], [place] [phone] [phone] Social History Tobacco Use Types Packs/Day Years [...] do you attend hoahaoism or Never 2020 mandaeism services? Do you belong to any clubs [...] place to sleep or slept in a detention (including now)? Education Answer Date Recorded What [...]
--- OUTSIDE RECORDS SUMMARY | 2022-05-04 09:17 | XMS_ITS | Encounter Summary ---
:1940 Author Organization [facility] Address [address] [place] [address] Care Team Providers Name Role Phone Unavailable Primary Care Provider Unavailable Reason for Referral Outpatient (Routine) - Closed Specialty Diagnoses / Procedures Referred By Contact Refer red To Contact Radiation Oncology Mukesh Stone M .D. [facility] Region [address] [place] [phone] Referral ID Status Reason Start Date Expiration Date Visits Requ ested Visits Authorized [id number] Closed 07/20/2021 07/20/2022 1 1 Scheduling Instructions Prior to simulation for consent NSIVE SECONDARY COACH Reason for Visit Outpatient (Routine) - Closed Specialty Diagnoses / Procedures Referred By Contact Refer red To Contact Radiation Oncology Mukesh Stone M .D. [facility] [address] [address] Referral ID Status Reason Start Date Expiration Date Visits Requ ested Visits Authorized [id number] Closed 07/20/2021 07/20/2022 1 1 Encounter Details Date Type Department Care Team Description 08/02/2021 Hospital Encounter Department of Mukesh Stone Neoplasm Radiation Oncology [place] Of Breast Lower in [address] Female Right (HCC) [address] [address] (Primary Dx) [place], [place] [phone] [address] (Work) [phone] Social History Tobacco Use Types Packs/Day Years [...] or relatives? How often do you attend mormonism or Never 2020 restoration services? Do you belong to any clubs or No 06/11/2021 organizations such as mormonism groups, unions, fraternal or athletic groups, or [...] place to sleep or slept in a long term (including now)? Education Answer Date Recorded What is the highest level of school you have completed or 11 th grade 06/11/2021 the highest degree you have received? 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 08/02/2021 1:43 PM DEFENSIVE SECONDARY COACH Radiation Oncology [facility] [address] [place], [place] [id number] NSIVE SECONDARY COACH documented in this encounter Miscellaneous Notes Addendum Note - Mukesh Stone M.D. - 08/02/2021 1:00 PM DEFENSIVE SECONDARY COACH Encounter addended by: Mukesh Stone M.D. on: 08/05/2021 6:42 PM Actions taken: Flowsheet accepted NSIVE SECONDARY COACH documented in this encounter Plan of Treatment [...]
--- OUTSIDE RECORDS SUMMARY | 2022-05-04 09:17 | XMS_ITS | Clinical Summary ---
:1940 Author Organization [facility] Address [address] [place] [address] Care Team Providers Name Role Phone Unavailable Primary Care Provider Unavailable Source Comments Patient records contain information from all sites at [facility]. For routine questions regarding patient records, call [phone] during business hours, M-F 8:00 AM - 5:00 PM Central Time. Record requests for emergency care only can be directed to [phone] at any time.[facility] Allergies Active Allergy Reactions Severity Noted Date [...] Stage Recommended (pT1c, cN0, cM0, G2, ER+, NE+, HER2-) - Unsigned Murmur Aortic Outflow 06/14/2021 [...] or relatives? How often do you attend religion or Never 2020 yarsanism services? Do you belong to any clubs or No 06/11/2021 organizations such as religion groups, unions, fraternal or athletic groups, or [...] Comments Blood Pressure 155/56 08/02/2021 12:58 PM PHONE CIRCUIT OPERATOR Pulse 69 08/02/2021 12:58 PM PHONE CIRCUIT OPERATOR Temperature 36.3 ??C (97.3 ??F) 08/18/2021 9:46 AM PHONE CIRCUIT OPERATOR Respiratory Rate - - Oxygen Saturation 88% 06/14/2021 7:40 AM CDT Inhaled Oxygen Concentration - - Weight 49.3 kg (108 lb 11 oz) 08/18/2021 9:46 AM PHONE CIRCUIT OPERATOR Height 150.9 cm (4' 11.41) 06/14/2021 7:40 [...] Dates Phone Addre ss Type Group ARE [facility] FOR [id number] 2019-Present [phone] [address] [place] [address]
--- OUTSIDE RECORDS SUMMARY | 2022-05-04 09:17 | XMS_ITS | Encounter Summary ---
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 [facility] Region Procedures Initial Rad Onc Treatment Planning CT Simulation [address] [place] [address] Referral ID Status Reason Start Date Expiration Date Visits Requ ested Visits Authorized [id number] Closed 07/20/2021 07/20/2022 1 1 Encounter Details Date Type Department Care Team Description 08/02/2021 Hospital Encounter Department of Mukesh Stone Neoplasm Radiation Oncology [place] Of Breast Lower in [place], [address] [place], [place] Female Right (HCC) [address] [facility] [address] [place], [place] [phone] [address] (Work) [phone] Social History Tobacco Use Types Packs/Day Years [...] do you attend religion or Never 2020 anabaptist services? Do you belong to any clubs [...] imaging was appropriate and completed without incident. Curb Worker use:No [employer] documented in this encounter Plan of Treatment Not on filedocumented as of this encounter Procedures Procedure Name Priority Date/Time Associated Comments Diagnosis INITIAL RAD ONC Routine 08/02/2021 2:03 PM Malignant Neoplasm Results for this TREATMENT PLANNING DIRECTOR FINANCIAL SYSTEMS Of Breast Lower proced ure are in CT SIMULATION Outer Quadrant the results Female Right (HCC) section. documented in this encounter Results Initial Rad Onc Treatment Planning CT Simulation (08/02/2021 2:03 PM DIRECTOR FINANCIAL SYSTEMS) Specimen (Source) Anatomical Location Collection Method / Collectio n Time Received Time / Laterality Volume Narrative [facility] - 08/02/2021 2:03 PM DIRECTOR FINANCIAL SYSTEMS Marga Armenta, RTT ? 08/02/2021 ??2:03 PM Initial Rad Onc Treatment Planning CT Si mulation Date/Time: 08/02/2021 2:03 PM Performed by: Mukesh Stone M.D. Authorized by: Mukesh Stone M.D. Mukesh Stone M.D. 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
--- OUTSIDE RECORDS SUMMARY | 2022-05-04 09:17 | XMS_ITS | Encounter Summary ---
:1940 Author Organization [facility] Address [address] [place] [address] Care Team Providers Name Role Phone Unavailable Primary Care Provider Unavailable Encounter Details Date Type Department Care Team Description 08/20/2021 Documentation Department of Radiation Mukesh Stone[facility] [address] [facility] [address] [place], [place] [address] [phone] (Wo rk) Social History Tobacco Use Types [...] or relatives? How often do you attend anglican or Never 2020 anglican services? Do you belong to any clubs or No 06/11/2021 organizations such as anglican groups, unions, fraternal or athletic groups, or [...] Lorraine Wilde R.N. - 08/20/2021 11:59 PM SOIL ENGINEER DIAGNOSIS: 1. 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
--- OUTSIDE RECORDS SUMMARY | 2022-05-04 09:18 | XMS_ITS | Encounter Summary ---
:1940 Author Organization [facility] Address [address] [place] [address] Care Team Providers Name Role Phone Unavailable Primary Care Provider Unavailable Reason for Visit Reason Comments Communication Outside films/COPD Clinic Encounter Details Date Type Department Care Team Description 06/01/2021 Clinical Division of Demarcus Langley, Communication Communication Pulmonary Medicine [place] (Outside films/COPD in [address]) [place], [place] [address] [facility] [address] [place], [place] [phone] [address] (Work) [phone] Social History Tobacco Use Types Packs/Day Years [...] do you attend scientologist or Never 2020 rastafarian services? Do you belong to any clubs [...] or slept in a intermediate (including now)? Sex Assigned at Date Recorded [...] 1:33 PM CDT Called [facility] at [phone] requesting films from 2015 and was asked to fax a request to [phone] and they would be pushing the films to us for an appointment on 06/14/2021. documented in this encounter Plan of Treatment Not on filedocumented as of this encounter Visit Diagnoses Not on filedocumented in this encounter
--- OUTSIDE RECORDS SUMMARY | 2022-05-04 09:18 | XMS_ITS | Encounter Summary ---
:1940 Author Organization [facility] Address [address] [place] [address] Care Team Providers Name Role Phone Alethea Patterson MD Primary Care Provider [phone] Reason for Visit Reason Comments Refill raNITIdine (ZANTAC) 300 MG t ablet [Pharmacy Med Name: RANITIDINE 300MG] Encounter Details Date Type Department Care Team Description 01/28/2019 Refill [facility] Gwen Sorensen MD Refill (raNITIdine Medicine [address] (ZANTAC) 300 MG tablet [address] [place], [place] [Pharmacy Med Name: [place] [address] RANITIDINE 300MG]) [phone] (Wo rk) Social History Tobacco Use Types [...] visit Patient no longer receiving care at [facility] Frontline: [facility]P [id number][facility] Deandra Haddad RN - 01/31/2019 9:09 AM CDT Further Assistance Needed on Refill from Manager Patient is overdue for Office visit. -> [...] found) Next scheduled visit: None Powered by [employer], Reference: [id number], 01/28/2019 12:09:45 PM CDT, Pool: GONZALES KALPANA ([id number]) documented in this encounter Plan of Treatment Not on filedocumented as of this encounter Visit Diagnoses Not on filedocumented in this encounter Care Teams Millinery Copyist Relationship Specialty Start Date End Date Alethea Patterson MD PCP - General Family Practice 01/02/191999 [place] [address] documented as of this encounter
--- OUTSIDE RECORDS SUMMARY | 2022-05-04 09:18 | XMS_ITS | Encounter Summary ---
:1940 Author Organization [facility] Address [address] [place] [address] Care Team Providers Name Role Phone Unavailable Primary Care Provider Unavailable Encounter Details Date Type Department Care Team Description 06/14/2021 Hospital Encounter Department of Demarcus Langley Preope rative Laboratory Medicine MYee Examination and Pathology, [address] [place] [address] in [facility] [address] [place] [phone] [place] [address] (Work) [place], [place] [phone] [phone] (Fax) [phone] Social History Tobacco Use Types Packs/Day Years [...] or relatives? How often do you attend latter-day or Never 2020 judaism services? Do you belong to any clubs or No 06/11/2021 organizations such as latter-day groups, unions, fraternal or athletic groups, or [...] 06/14/2021 DTL Black/ mL/min/BSA 11:57 AM CDT Thai Comment: ----ADDITIONAL INFORMATION---- Estimated GFR calculated using [...] Organization Address City/State/ZIP Code Phon e Number [facility] - [address] [place], [place] [address] [facility] [place] [address] [facility] [address] (ABNORMAL) CBC with Differential, Blood (06/14/2021 10:28 AM CDT) [facility] gist Method Time Signature Hemoglobin 16.1 [...] Organization Address City/State/ZIP Code Phon e Number [facility] - [address] [place], [place] [address] [facility] [place] [address] [facility] [address] documented in this encounter Visit Diagnoses Diagnosis Preoperative Examination Cardiovascular documented in this encounter
--- OUTSIDE RECORDS SUMMARY | 2022-05-04 09:18 | XMS_ITS | Encounter Summary ---
:1940 Author Organization [employer] Address [address] [place] [address] Care Team Providers Name Role Phone Needs Pcp, Assignment Primary Care Provider Reason for Visit Reason Comments Refill atenolol (TENORMIN) 25 MG ta blet [Pharmacy Med Name: ATENOLOL 25MG] Encounter Details Date Type Department Care Team Description 08/16/2018 Refill [facility] Gwen Sorensen MD Refill (atenolol Medicine [address] (TENORMIN) 25 MG tablet [address] [place], [place] [Pharmacy Med Name: [place] [address] ATENOLOL 25MG]) [phone] (Wo rk) Social History Tobacco Use Types [...] Provider: DONTE TIPTON Ordering User: EDNA LEVY D CARE CENTER ADMINISTRATOR Interface, Out Pendo Systems Prov Query - 08/16/2018 2:04 PM CST [...] 82 mm Hg on 08/30/2017 Powered by [employer], Reference: [id number], 08/16/2018 2:04:12 PM CHILD CARE CENTER ADMINISTRATOR, Pool: KHLOE FP REFILL ([id number]) D CARE CENTER ADMINISTRATOR documented in this encounter Plan of Treatment Not on filedocumented as of this encounter Visit Diagnoses Not on filedocumented in this encounter Care Teams Cook Manager Relationship Specialty Start Date End Date Needs Pcp, Assignment PCP - General 05/03/18 01/01/19 [place] [address] documented as of this encounter
--- OUTSIDE RECORDS SUMMARY | 2022-05-04 09:18 | XMS_ITS | Encounter Summary ---
:1940 Author Organization [employer] Address [address] [address] Care Team Providers Name Role Phone Judy Sorensen MD Primary Care Provider Reason for Visit Reason Onset Date Comments Refill 08/15/2017 raNITIdine (ZANTAC) 300 MG tablet Encounter Details Date Type Department Care Team Description 08/15/2017 Refill [facility] Gwen Sorensen MD Refill (raNITIdine Medicine [address] (ZANTAC) 300 MG tablet) [address] [place] [address] [phone] (Wo rk) Social History Tobacco Use Types [...] mouth at bedtime as needed for Heartburn. INSPECTOR Interface, Out TRIRIGA Prov Query - 08/15/2017 12:27 PM CST [...] GARCÍA) Next scheduled visit: None Powered by [employer], Reference: [id number], 08/15/2017 12:27:27 PM LOAN INSPECTOR, Pool: LEDBETTER FP REFILL ([id number]) INSPECTOR documented in this encounter Plan of Treatment Not on filedocumented as of this encounter Visit Diagnoses Not on filedocumented in this encounter Care Teams Restaurant Hospitality Manager Relationship Specialty Start Date End Date Judy Sorensen MD PCP - General 12/18/10 05/02/18 [address] [place] [address] documented as of this encounter
--- OUTSIDE RECORDS SUMMARY | 2022-05-04 09:18 | XMS_ITS | Encounter Summary ---
:1940 Author Organization [employer] Address [address] [place] [address] Care Team Providers Name Role Phone Judy Sorensen MD Primary Care Provider Reason for Visit Procedure/Equipment (Routine) - Incomplete Specialty Diagnoses / Procedures Referred By Contact Refer red To Contact Diagnoses Follow up Judy Sorensen MD Procedures [facility] US Breast Rt [address] [place], [place] [address] Referral ID Status Reason Start Date Expiration Date Visits V isits Requested Authorized [id number] Incomplete 07/21/2017 10/20/2018 1 1 Encounter Details Date Type Department Care Team Description 08/15/2017 Imaging [place] [address] Sidney Sorensen MD Follow up Mammography [address] [facility] [address] [place] [address] [place], [place] [address] [phone] Social History Tobacco Use Types Packs/Day Years [...] Name Priority Date/Time Associated Diagnosis Comme nts [facility] US BREAST RT Routine 08/15/2017 11:40 AM Follow up Resu lts for this ORTHODONTIST procedure are i n the results section. documented in this encounter Results [facility] US Breast Rt (08/15/2017 11:40 AM ORTHODONTIST) Anatomical Region Laterality Modality Breast Right Ultrasound Specimen (Source) Anatomical Collection Method Collection Time Re ceived Time Location / / Volume Laterality 08/15/2017 11:30 AM ORTHODONTIST Impressions 08/15/2017 11:50 AM ORTHODONTIST IMPRESSION: ACR BI-RADS 2: ??Benign. RECOMMENDATION: Routine yearly mammograp hy. The patient is due for bilateral mammography on or after 02/10/2018. The results and recommendations of this examination will be communicated to the patient by the [facility] and we will attempt to schedule any recommended imaging follow up with the patient. Narrative 08/15/2017 11:50 AM ORTHODONTIST EXAMINATION: Right breast tomosynthesis and ultrasound. HISTORY: Short interval follow-up of a r ight breast mass. COMPARISON: Mammography and ultrasound , mammography 02/10/2017, 08/18/2015, 04/01/2014. FINDINGS: Right breast tomosynthesis suma ws no suspicious change in the focal well-circumscribed mass at approximately 8:00 position posteriorly. No suspicious correlate seen by ultrasound. ?? Judy Sorensen MD RAD ILIA [facility] Mammogram Diag Rt W [place] (08/15/2017 11:14 AM ORTHODONTIST) Anatomical Region Laterality Modality Breast Right Mammography Specimen (Source) Anatomical Collection Method Collection Time Re ceived Time Location / / Volume Laterality 08/15/2017 11:07 AM ORTHODONTIST Impressions 08/15/2017 11:50 AM ORTHODONTIST IMPRESSION: ACR BI-RADS 2: ??Benign. RECOMMENDATION: Routine yearly mammograp hy. The patient is due for bilateral mammography on or after 02/10/2018. The results and recommendations of this examination will be communicated to the patient by the [facility] and we will attempt to schedule any recommended imaging follow up with the patient. Narrative 08/15/2017 11:50 AM ORTHODONTIST EXAMINATION: Right breast tomosynthesis and ultrasound. HISTORY: [...] up documented in this encounter Care Teams Director Of Personnel Relationship Specialty Start Date End Date Judy Sorensen MD PCP - General 12/18/10 05/02/18 [address] [place] [address] documented as of this encounter
--- OUTSIDE RECORDS SUMMARY | 2022-05-04 09:18 | XMS_ITS | Encounter Summary ---
:1940 Author Organization [employer] Address [address] [place] [address] Care Team Providers Name Role Phone Judy Sorensen MD Primary Care Provider Encounter Details Date Type Department Care Team Description 05/25/2017 Lab Visit [facility] Hypokalemia (Primary Dx); [address] [employer] Essential hypertension; [place] [address] Abdominal aortic aneurysm (A AA) without rupture (HRC) [phone] Social History Tobacco Use Types Packs/Day Years [...] - 06/12/2017 9:34 AM CDT Performed at [facility], [address] [place], [place] [address] CLIA number [id number] Lenora Schroeder MD LAB_1 Performing Organization Address [facility] [place] Phon e Number PN SOFT [address] [place] [address] CBC - Complete Blood Count-No Diff (05/25/2017 [...] - 05/25/2017 12:41 PM CDT Performed at [facility], [facility] [address] [place] [address] CLIA number [id number] Lenora Schroeder MD LAB_1 Performing Organization Address City/[facility] Phon e Number PN SOFT [address] [place] [address] Alanine Aminotransferase - ALT (SGPT) (05/25/2017 12:37 PM CDT) Patholo gist Method Time Signature Alanine 15 9 - 55 PN SOFT Aminotransferase U/L Specimen Anatomical Collection Method Collection Time Receive d Time (Source) Location / / Volume Laterality 05/25/2017 12:37 05/25/2017 PM CDT 12:37 PM CDT Narrative PN SOFT - 05/25/2017 3:53 PM CDT Performed at [facility], [address] [place] [address] CLIA number [id number] Lenora Schroeder MD LAB_1 Performing Organization Address [facility] [place] Phon e Number PN SOFT [address] [place] [address] Lipid Panel - LDLD If Trig High (05/25/2017 12:37 PM CDT) [facility] Time Signature Cholesterol 176 [...] - 05/25/2017 3:53 PM CDT Performed at [facility], [facility] [address] [place] [address] CLIA number [id number] Lenora Schroeder MD LAB_1 Performing Organization Address [facility] Phon e Number PN SOFT [address] [place] [address] (ABNORMAL) Basic Metabolic Panel (05/25/2017 12:37 PM [...] - 05/25/2017 3:53 PM CDT Performed at [facility], [address] [place] [address] CLIA number [id number] Lenora Schroeder MD LAB_1 Performing Organization Address City/State/ZIP Code Phon e Number PN SOFT [address] [place] [address] documented in this encounter Visit Diagnoses Diagnosis Hypokalemia - Primary Hypopotassemia Essential hypertension (HRC) Unspecified essential hypertension Abdominal aortic aneurysm (AAA) without rupture (HRC) Hypokalemia Hypopotassemia documented in this encounter Care Teams Collections Officer Relationship Specialty Start Date End Date Judy Sorensen MD PCP - General 12/18/10 05/02/18 [address] [place] [address] documented as of this encounter
--- OUTSIDE RECORDS SUMMARY | 2022-05-04 09:18 | XMS_ITS | Encounter Summary ---
:1940 Author Organization [employer] Address [address] [place] [address] Care Team Providers Name Role Phone Needs Pcp, Assignment Primary Care Provider Reason for Visit Reason Comments Refill raNITIdine (ZANTAC) 300 MG t ablet [Pharmacy Med Name: RANITIDINE 300MG] Encounter Details Date Type Department Care Team Description 10/24/2018 Refill [facility] Gwen Sorensen MD Refill (raNITIdine Medicine [address] (ZANTAC) 300 MG tablet [address] [place], [place] [Pharmacy Med Name: [place] [address] RANITIDINE 300MG]) [phone] (Wo rk) Social History Tobacco Use Types [...] AM CST Appointment Letter PRINTED & Sent ATIONS AND INTELLIGENCE ASSISTANT Crystal Catalan RN - 10/25/2018 10:09 AM CST OFFICE APPOINTMENT NEEDED Please notify patient to schedule an appointment within 30 days. Requested Prescriptions Pending Prescriptions Disp Refills ??? raNITIdine (ZANTAC) 300 MG tablet [Pharmacy Med Name: RANITIDINE 300MG] 90 Tablet 0 Sig: Take 1 Tablet by mouth at bedtime as needed for Heartburn. ATIONS AND INTELLIGENCE ASSISTANT Interface, Out Zkatter Prov Query - 10/24/2018 11:21 AM CST [...] GARCÍA) Next scheduled visit: None Powered by [facility], Reference: [id number], 10/24/2018 11:21:49 AM VITALY, Markos: KHLOE VICTOR REFILL ([id number]) ATIONS AND INTELLIGENCE ASSISTANT documented in this encounter Plan of Treatment Not on filedocumented as of this encounter Visit Diagnoses Not on filedocumented in this encounter Care Teams Aviation Survival Technician Relationship Specialty Start Date End Date Needs Pcp, Assignment PCP - General 05/03/18 01/01/19 [place] [address] documented as of this encounter
--- OUTSIDE RECORDS SUMMARY | 2022-05-04 09:18 | XMS_ITS | Encounter Summary ---
:1940 Author Organization [facility] Address [address] [place] [address] Care Team Providers Name Role Phone Unavailable Primary Care Provider Unavailable Reason for Referral Outpatient (Routine) - Closed Specialty Diagnoses / Procedures Referred By Contact Refer red To Contact Diagnoses Murmur Aortic Outflow Demarcus Langley M.D. [facility] Procedures Echo Transthoracic (TTE) [address] [place] [address] Referral ID Status Reason Start Date Expiration Date Visits Requ ested Visits Authorized [id number] Closed 06/14/2021 06/14/2022 1 1 Reason for Visit Outpatient (Routine) - Closed Specialty Diagnoses / Procedures Referred By Contact Refer red To Contact Diagnoses Murmur Aortic Outflow Demarcus Langley M.D. [facility] Procedures Echo Transthoracic (TTE) [address] [place] [address] Referral ID Status Reason Start Date Expiration Date Visits Requ ested Visits Authorized [id number] Closed 06/14/2021 06/14/2022 1 1 Encounter Details Date Type Department Care Team Description 06/14/2021 Hospital Encounter Department of Demarcus Langley Murmur Aortic Cardiovascular Diseases [place] Outflow in [facility] [address] [facility] [address] [place] [address] [phone] Social History Tobacco Use Types Packs/Day Years [...] many times do you More than three nvain es a week 06/11/2021 talk on the phone with family, friends, or neighbors? How often do you get together with friends Three times a wee k 06/11/2021 or relatives? How often do you attend episcopalian or Never 2020 tenriism services? Do you belong to any clubs or No 06/11/2021 organizations such as episcopalian groups, unions, fraternal or athletic groups, or [...] place to sleep or slept in a fdc (including now)? Education Answer Date Recorded What [...] ECHO DOPPLER COLOR (06/14/2021 3:58 PM CDT) [facility] gist Method Time Signature Ejection Fraction 66 [...] . For the complete report, see the [facility] Documents. Narrative 06/14/2021 4:01 PM CDT For the complete report, see the [facility] Documents. Final Impressions 1. Normal left ventricular [...]
--- OUTSIDE RECORDS SUMMARY | 2022-05-04 09:18 | XMS_ITS | Encounter Summary ---
:1940 Author Organization [facility] Address [address] [place] [address] Care Team Providers Name Role Phone Unavailable Primary Care Provider Unavailable Reason for Referral Outpatient (Routine) - Closed Specialty Diagnoses / Procedures Referred By Contact Refer red To Contact Demarcus Langley M.D. [facility] [address] [place] [address] [phone] Referral ID Status Reason Start Date Expiration Date Visits Requ ested Visits Authorized [id number] Closed 06/14/2021 06/14/2022 1 1 Specialty Diagnoses / Procedures Referred By Contact Refer red To Contact Demarcus Langley M.D. [facility] [address] [place] [address] [phone] Referral ID Status Reason Start Date Expiration Date Visits Requ ested Visits Authorized utpatient (Routine) - Closed Specialty Diagnoses / Procedures Referred By Contact Refer red To Contact Diagnoses Preoperative Examination Cardiovascular Demarcus Langley M.D. [facility] Procedures ECG 12 Lead [address] [place] [address] [phone] Referral ID Status Reason Start Date Expiration Date Visits Requ ested Visits Authorized [id number] Closed 06/14/2021 06/14/2022 1 1 utpatient (Routine) - Closed Specialty Diagnoses / Procedures Referred By Contact Refer red To Contact Diagnoses Murmur Aortic Outflow Demarcus Langley M.D. [place] [facility] Procedures Echo Transthoracic (TTE) [address] [place] [address] Referral ID Status Reason Start Date Expiration Date Visits Requ ested Visits Authorized [id number] Closed 06/14/2021 06/14/2022 1 1 Reason for Visit Appointment Request (Routine) - Closed Specialty Diagnoses / Procedures Referred By Contact Refer red To Contact Pulmonary Medicine Diagnoses Chronic Obstructive Pulmonary Disease (HCC) Referral ID Status Reason Start Date Expiration Date Visits Requ ested Visits Authorized [id number] Closed 05/26/2021 05/26/2022 1 1 Encounter Details Date Type Department Care Team Description 06/14/2021 Comprehensive Visit Division of Demarcus Langley [place] (Primary Dx); Pulmonary Medicine [place] Chronic Obstructive Pulmonary Disease (H CC); in [place], [facility] 1st [facility] Emphysema (HCC); [place], [place] Preoperative Examination Car diovascular; [address] [facility] [address] Murmur Aortic Outflow [place], [place] [phone] (Work) [phone] Social History Tobacco Use Types Packs/Day Years [...] or relatives? How often do you attend lutheran or Never 2020 hinduism services? Do you belong to any clubs or No 06/11/2021 organizations such as lutheran groups, unions, fraternal or athletic groups, or [...] COPD. Her primary care is with the [facility] system which is a non [facility]. #1 COPD #2 [...] access my note and the reports on [facility] Everywhere. Discontinued Medications: There are no [...] ECHO DOPPLER COLOR (06/14/2021 3:58 PM CDT) [facility] Method Time Signature Ejection Fraction 66 MC [...] . For the complete report, see the [employer] Documents. Narrative 06/14/2021 4:01 PM CDT For the complete report, see the [employer] Documents. Final Impressions 1. Normal left ventricular [...] report, see the Order-L evel Documents. Demarcus Lanlgey M.D. CV ECHO PROCEDURES ECG 12 Lead (06/14/2021 12:43 PM CDT) P athologist Signature Ventricular Rate 81 BPM MUSE ECG/Min KS Interval 172 ms MUSE QRSD Interval 86 ms MUSE QT Interval 408 ms MUSE QTC Interval 474 ms MUSE P [place] 85 degrees MUSE R [place] 80 degrees MUSE T Wave [place] 48 degrees MUSE Specimen Anatomical Collection Method [...] 06/14/2021 DTL Black/ mL/min/BSA 11:57 AM CDT Salvadorean Comment: ----ADDITIONAL INFORMATION---- Estimated GFR calculated using [...] Organization Address City/State/ZIP Code Phon e Number [facility] - [address] [place], [place] [address] [facility] [place] [address] [facility] [address] (ABNORMAL) CBC with Differential, Blood (06/14/2021 10:28 AM CDT) [facility] gist Method Time Signature Hemoglobin [...] Organization Address City/State/ZIP Code Phon e Number [facility] - [address] [place], [place] [address] [facility] [place] [address] [facility] [address] Interpretation of Outside DX [...]
--- OUTSIDE RECORDS SUMMARY | 2022-05-04 09:18 | XMS_ITS | Encounter Summary ---
:1940 Author Organization [employer] Address [address], [place] [address] Care Team Providers Name Role Phone Judy Sorensen MD Primary Care Provider Reason for Visit Procedure/Equipment (Routine) - Incomplete Specialty Diagnoses / Procedures Referred By Contact Refer red To Contact Diagnoses Follow up Judy Sorensen MD Procedures [facility] Mammogram Diag Rt W Lala MM Mammogram Diag Rt W Lala [address] [place], [place] [address] Referral ID Status Reason Start Date Expiration Date Visits V isits Requested Authorized [id number] Incomplete 07/21/2017 10/20/2018 1 1 Encounter Details Date Type Department Care Team Description 08/15/2017 Imaging [place] [address] Sidney Sorensen MD Follow up Mammography [address] 296380 [place] [address] [place] [address] [phone] Social History Tobacco Use Types Packs/Day Years [...] Name Priority Date/Time Associated Diagnosis Comme nts [facility] MAMMOGRAM DIAG Routine 08/15/2017 11:14 AM Follow up Re sults for this RT W 3D LALA CURRICULUM WRITER procedure are i n the results section. documented in this encounter Results [facility] US Breast Rt (08/15/2017 11:40 AM CURRICULUM WRITER) Anatomical Region Laterality Modality Breast Right Ultrasound Specimen (Source) Anatomical Collection Method Collection Time Re ceived Time Location / / Volume Laterality 08/15/2017 11:30 AM CURRICULUM WRITER Impressions 08/15/2017 11:50 AM CURRICULUM WRITER IMPRESSION: ACR BI-RADS 2: ??Benign. RECOMMENDATION: Routine yearly mammograp hy. The patient is due for bilateral mammography on or after 02/10/2018. The results and recommendations of this examination will be communicated to the patient by the [facility] and we will attempt to schedule any recommended imaging follow up with the patient. Narrative 08/15/2017 11:50 AM CURRICULUM WRITER EXAMINATION: Right breast tomosynthesis and ultrasound. HISTORY: Short interval follow-up of a r ight breast mass. COMPARISON: Mammography and ultrasound , mammography 02/10/2017, 08/18/2015, 04/01/2014. FINDINGS: Right breast tomosynthesis suma ws no suspicious change in the focal well-circumscribed mass at approximately 8:00 position posteriorly. No suspicious correlate seen by ultrasound. ?? Judy Sorensen MD RAD [facility] Mammogram Diag Rt W Lala (08/15/2017 11:14 AM CURRICULUM WRITER) Anatomical Region Laterality Modality Breast Right Mammography Specimen (Source) Anatomical Collection Method Collection Time Re ceived Time Location / / Volume Laterality 08/15/2017 11:07 AM CURRICULUM WRITER Impressions 08/15/2017 11:50 AM CURRICULUM WRITER IMPRESSION: ACR BI-RADS 2: ??Benign. RECOMMENDATION: Routine yearly mammograp hy. The patient is due for bilateral mammography on or after 02/10/2018. The results and recommendations of this examination will be communicated to the patient by the [facility] and we will attempt to schedule any recommended imaging follow up with the patient. Narrative 08/15/2017 11:50 AM CURRICULUM WRITER EXAMINATION: Right breast tomosynthesis and ultrasound. HISTORY: Short interval follow-up of a r ight breast mass. COMPARISON: Mammography and ultrasound , mammography 02/10/2017, 08/18/2015, 04/01/2014. FINDINGS: Right breast tomosynthesis suma ws no suspicious change in the focal well-circumscribed mass at approximately 8:00 position posteriorly. No suspicious correlate seen by ultrasound. ?? Judy Sorensen MD RAD [facility] documented in this encounter Visit Diagnoses Diagnosis Follow up Follow up documented in this encounter Care Teams Maintenance Person Relationship Specialty Start Date End Date Judy Sorensen MD PCP - General 12/18/10 05/02/18 [address] [place] [address] documented as of this encounter
--- OUTSIDE RECORDS SUMMARY | 2022-05-04 09:18 | XMS_ITS | Encounter Summary ---
:1940 Author Organization [employer] Address [address], [place] [address] Care Team Providers Name Role Phone Judy Sorensen MD Primary Care Provider Encounter Details Date Type Department Care Team Description 05/16/2017 Refill Order [facility] Gwen Sorensen MD [address] [address] [place] [address] [phone] Social History Tobacco Use Types Packs/Day Years [...] - NEXT LAB APPOINTMENT: None Powered by [employer], Reference: [id number], 05/16/2017 3:25:51 PM CDT, Pool: LEDBETTER FP REFILL ([id number]) documented in this encounter Plan of Treatment Not on filedocumented as of this encounter Visit Diagnoses Diagnosis Encounter for long-term (current) use of medications - Primary Encounter for long-term (current) use of other medications documented in this encounter Care Teams Instrumentation And Control Technician Relationship Specialty Start Date End Date Judy Sorensen MD PCP - General 12/18/10 05/02/18 [address] [place] [address] documented as of this encounter
--- OUTSIDE RECORDS SUMMARY | 2022-05-04 09:18 | XMS_ITS | Encounter Summary ---
:1940 Author Organization [employer] Address [address] [place] [address] Care Team Providers Name Role Phone Judy Sorensen MD Primary Care Provider Reason for Visit Reason Onset Date Comments Refill 08/15/2017 chlorthalidone (HYGR OTON) 25 MG tablet; atenolol (TENORMIN) 25 MG tablet; atorvastatin (LIPITOR) 40 MG tablet Encounter Details Date Type Department Care Team Description 08/15/2017 Refill [facility] Gwen Sorensen MD Refill (chlorthalidone Medicine [address] (HYGROTON) 25 MG tablet; [address] [place], [place] atenolol (TENORMIN) [address] [place] [address] MG tablet; atorvastatin [phone] (Wo rk) (LIPITOR) 40 MG tablet) Social [...] rx and need appt for further refills ER CARBON PAPER Judy Larsen MD - 08/16/2017 12:44 PM CST Fasting labs ordered. Needs visit. ER CARBON PAPER Ese Yang RN - 08/16/2017 8:39 AM [...] Sig: Take 1 Tab by mouth daily. ER CARBON PAPER Interface, Out Surescripts Prov Query - 08/15/2017 [...] 66 mm Hg on 05/17/2016 Powered by [employer], Reference: [id number], 08/15/2017 12:27:27 PM COATER CARBON PAPER, Pool: KHLOE FP REFILL ([id number]) atorvastatin (LIPITOR) 40 MG tablet Medication started: 10/16/2013 Last ordered by JUDY LARSEN: 05/16/2017 (91 days ago) QTY: 90, Refills: 0, Sig: take 1 tab by mouth daily. (unchanged) -> An office visit is overdue (performed over 15 months ago, required every 12 months). Last qualifying visit: 05/17/2016 (with JUDY LARSEN) Next scheduled visit: None [facility], Reference: [id number], 08/15/2017 12:27:27 PM Markos HAIDER: KHLOE FP REFILL ([id number]) chlorthalidone (HYGROTON) 25 MG tablet Medication started: [...] K: 3.9 mEq/L on 06/12/2017 Powered by [employer], Reference: [id number], 08/15/2017 12:27:27 PM COATER CARBON PAPER, Pool: LEDBETTER FP REFILL ([id number]) ER CARBON PAPER documented in this encounter Plan of Treatment Not on filedocumented as of this encounter Results Lipid Panel and Direct LDL(If Needed) (08/30/2017 10:28 AM COATER CARBON PAPER) Analysis Performed At Patho logist Time Signature [...] / Volume Laterality 08/30/2017 10:28 08/30/2017 AM COATER CARBON PAPER 10:28 AM COATER CARBON PAPER Narrative PN SOFT - 08/30/2017 11:11 AM COATER CARBON PAPER Performed at [facility], [address] [place] [address] CLIA number [id number] Judy Sorensen MD LAB_1 Performing Organization Address [facility] Phon e Number PN SOFT [address] [place] [address] (ABNORMAL) Basic Metabolic Panel (08/30/2017 10:28 AM COATER CARBON PAPER) athologist Signature Creatinine Serum 0.80 0.55 - [...] / Volume Laterality 08/30/2017 10:28 08/30/2017 AM COATER CARBON PAPER 10:28 AM COATER CARBON PAPER Narrative PN SOFT - 08/30/2017 11:11 AM COATER CARBON PAPER Performed at [facility], [address] [place] [address] CLIA number [id number] Judy Sorensen MD LAB_1 Performing Organization Address [facility] Phon e Number PN SOFT [address] [place] [address] documented in this encounter Visit Diagnoses Diagnosis Essential hypertension (HRC) - Primary Unspecified essential hypertension Abdominal aortic aneurysm (AAA) without rupture (HRC) Essential hypertension (HRC) Unspecified essential hypertension documented in this encounter Care Teams Fourdrinier Machine Operator Relationship Specialty Start Date End Date Judy Sorensen MD PCP - General 12/18/10 05/02/18 [address] [place] [address] documented as of this encounter
--- OUTSIDE RECORDS SUMMARY | 2022-05-04 09:18 | XMS_ITS | Encounter Summary ---
:1940 Author Organization [facility] Address [address], [place] [address] Care Team Providers Name Role Phone Judy Sorensen MD Primary Care Provider Reason for Visit Reason Onset Date Comments Lab/Rad Request 05/24/2017 Encounter Details Date Type Department Care Team Description 05/24/2017 Telephone [facility] Gwen Sorensen MD Lab/Rad Request [facility] [address] [place] [address] [place] [address] [phone] Social History Tobacco Use Types Packs/Day Years [...] do once 's prostate surgery done at [facility]. Lenora Schroeder MD - 05/24/2017 12:04 PM [...] like to get labs done. Lives in [facility] will be in [place] tomorrow. Callback Tripp[employer] lock (Self) [phone] (H) Call her if labs will be ready so that she might stop. Lorraine Skelton - 05/24/2017 11:03 AM CDT Lab/Radiology Requests Primary Care Provider: Judy Larsen MD What test is needed and when? Pt states- blood work for her medications Why is test needed/requested? medications *If symptom related, send to triage Community Theater Actor: Sol Ángel Pj Best call back number: [...] - 05/25/2017 12:41 PM CDT Performed at [facility], [address] [place] [address] CLIA number [id number] Lenora Schroeder MD LAB_1 Performing Organization Address [facility] Phon e Number PN SOFT [address] [place] [address] Alanine Aminotransferase - ALT (SGPT) (05/25/2017 12:37 PM CDT) [facility] Method Time Signature Alanine 15 9 - 55 PN SOFT Aminotransferase U/L Specimen Anatomical Collection Method Collection Time Receive d Time (Source) Location / / Volume Laterality 05/25/2017 12:37 05/25/2017 PM CDT 12:37 PM CDT Narrative PN SOFT - 05/25/2017 3:53 PM CDT Performed at [facility], [address] [place] [address] CLIA number [id number] Lenora Schroeder MD LAB_1 Performing Organization Address [facility] Phon e Number PN SOFT [address] [place] [address] Lipid Panel - LDLD If Trig High [...] - 05/25/2017 3:53 PM CDT Performed at [facility], [address] [place] [address] CLIA number [id number] Lenora Schroeder MD LAB_1 Performing Organization Address [facility] Phon e Number PN SOFT [address] [place] [address] [phone] (ABNORMAL) Basic Metabolic Panel (05/25/2017 12:37 PM [...] - 05/25/2017 3:53 PM CDT Performed at [facility], [address] [place] [address] CLIA number [id number] Lenora Schroeder MD LAB_1 Performing Organization Address [facility] Phon e Number PN SOFT [address] [place] [address] documented in this encounter Visit Diagnoses Diagnosis Essential hypertension (HRC) - Primary Unspecified essential hypertension Abdominal aortic aneurysm (AAA) without rupture (HRC) Hypokalemia - Primary Hypopotassemia Essential hypertension (HRC) Unspecified essential hypertension Abdominal aortic aneurysm (AAA) without rupture (HRC) documented in this encounter Care Teams Correctional Therapy Director Relationship Specialty Start Date End Date Judy Sorensen MD PCP - General 12/18/10 05/02/18 [address] [place] [address] documented as of this encounter
--- OUTSIDE RECORDS SUMMARY | 2022-05-04 09:18 | XMS_ITS | Encounter Summary ---
:1940 Author Organization [facility] Address [address], [place] [address] Care Team Providers Name Role Phone Judy Sorensen MD Primary Care Provider Reason for Visit Procedure/Equipment (Routine) - Incomplete Specialty Diagnoses / Procedures Referred By Contact Refer red To Contact Diagnoses Abnormal finding on breast imaging Judy Sorensen MD Procedures [facility] Breast Rt [address] [place], [place] [address] Referral ID Status Reason Start Date Expiration Date Visits V isits Requested Authorized [id number] Incomplete 02/10/2017 05/12/2018 1 1 Encounter Details Date Type Department Care Team Description 02/16/2017 Imaging [facility] [address] Sidney Sorensen MD Abnormal finding on Mammography [address] [facility] breast imaging [address] [place], [place] [address] [address] [place] [address] [phone] Social History Tobacco Use Types Packs/Day Years [...] Name Priority Date/Time Associated Diagnosis Comme nts [facility] US BREAST RT Routine 02/16/2017 10:36 [...] ultrasound follow-up is recommended. The [facility] will att empt to [...] ultrasound follow-up is recommended. The [facility] will att empt to schedule the recommended follow up with the patient. If the patient develops new symptoms such as a new palpable lump, skin changes or nipple discharge, evaluation at that time is recommended. IMPRESSION IMPRESSION: ACR BI-RADS CATEGORY 3: Prob ably benign. Judy Sorensen MD RAD [facility] Mammogram Diag Rt W Anrdews (02/16/2017 10:17 AM CDT) Anatomical Region Laterality [...] ultrasound follow-up is recommended. The [facility] [place] will att empt to schedule the recommended [...] and breast ultrasound follow-up is recommended. The [facility] will att empt to schedule the recommended [...] breast documented in this encounter Care Teams Solar Photovoltaic Systems Engineer Relationship Specialty Start Date End Date Judy Sorensen MD PCP - General 12/18/10 05/02/18 [address] [place] [address] documented as of this encounter
--- OUTSIDE RECORDS SUMMARY | 2022-05-04 09:18 | XMS_ITS | Encounter Summary ---
:1940 Author Organization [employer] Address [address] [place] [address] Care Team Providers Name Role Phone Judy Sorensen MD Primary Care Provider Encounter Details Date Type Department Care Team Description 08/30/2017 Lab Visit [facility] Essential hypertension [address] [place] [address] Social History Tobacco Use Types [...] Essential Results for this DIRECT LDL(IF AM STORY READER hypertension procedure are in NEEDED) the results section. BASIC METABOLIC Routine 08/30/2017 10:28 Essential Results for this PANEL AM STORY READER hypertension procedure are i n the results section. documented in this encounter Results Lipid Panel and Direct LDL(If Needed) (08/30/2017 10:28 AM STORY READER) Analysis Performed At Patho logist Time Signature [...] / Volume Laterality 08/30/2017 10:28 08/30/2017 AM STORY READER 10:28 AM STORY READER Narrative PN SOFT - 08/30/2017 11:11 AM STORY READER Performed at [facility], [address] [place] [address] CLIA number [id number] Judy Sorensen MD LAB_1 Performing Organization Address [facility] Phon e Number PN SOFT [address] [place] [address] [phone] (ABNORMAL) Basic Metabolic Panel (08/30/2017 10:28 AM STORY READER) athologist Signature Creatinine Serum 0.80 0.55 - [...] / Volume Laterality 08/30/2017 10:28 08/30/2017 AM STORY READER 10:28 AM STORY READER Narrative PN SOFT - 08/30/2017 11:11 AM STORY READER Performed at [facility], [address] [place] [address] CLIA number [id number] Judy Sorensen MD LAB_1 Performing Organization Address [facility] Phon e Number PN SOFT [address] [place] [address] documented in this encounter Visit Diagnoses Diagnosis Essential hypertension (HRC) Unspecified essential hypertension documented in this encounter Care Teams Brim Pouncing Machine Operator Relationship Specialty Start Date End Date Judy Sorensen MD PCP - General 12/18/10 05/02/18 [address] [place] [address] documented as of this encounter
--- OUTSIDE RECORDS SUMMARY | 2022-05-04 09:18 | XMS_ITS | Encounter Summary ---
:1940 Author Organization [facility] Address [address], [place] [address] Care Team Providers Name Role Phone Judy Sorensen MD Primary Care Provider Reason for Visit Procedure/Equipment (Routine) - Incomplete Specialty Diagnoses / Procedures Referred By Contact Refer red To Contact Diagnoses Abnormal finding on breast imaging Judy Sorensen MD Procedures [facility] Mammogram Diag Rt W Lala [address] [place], [place] [address] Referral ID Status Reason Start Date Expiration Date Visits V isits Requested Authorized [id number] Incomplete 02/10/2017 05/12/2018 1 1 Encounter Details Date Type Department Care Team Description 02/16/2017 Imaging [place] [address] Sidney Sorensen MD Abnormal finding on Mammography [address] [employer] [facility] breast imaging [address] [place] [address] [address] [address] [place] [address] [phone] Social History Tobacco Use Types Packs/Day Years [...] Name Priority Date/Time Associated Diagnosis Comme nts [facility] MAMMOGRAM DIAG Routine 02/16/2017 10:17 AM Abnormal findin g on Results for this RT W 3D LALA CDT breast imaging procedure are in the results section. documented in this encounter Results [facility] US Breast Rt (02/16/2017 10:36 AM CDT) [...] ultrasound follow-up is recommended. The [facility] [place] will att empt to schedule the recommended [...] and breast ultrasound follow-up is recommended. The [facility] will att empt to schedule the recommended follow up with the patient. If the patient develops new symptoms such as a new palpable lump, skin changes or nipple discharge, evaluation at that time is recommended. IMPRESSION IMPRESSION: ACR BI-RADS CATEGORY 3: Prob ably benign. Judy Sorensen MD RAD [facility] Mammogram Diag Rt W Lala (02/16/2017 10:17 [...] ultrasound follow-up is recommended. The [facility] will att empt to [...] and breast ultrasound follow-up is recommended. The [facility] will att empt to schedule [...] breast documented in this encounter Care Teams Steam Conditioner Operator Relationship Specialty Start Date End Date Judy Sorensen MD PCP - General 12/18/10 05/02/18 [address] [place] [address] documented as of this encounter
--- OUTSIDE RECORDS SUMMARY | 2022-05-04 09:18 | XMS_ITS | Encounter Summary ---
:1940 Author Organization [facility] Address [address], [place] [address] Care Team Providers Name Role Phone Needs Pcp, Assignment Primary Care Provider Reason for Visit Procedure/Equipment (Routine) - Incomplete Specialty Diagnoses / Procedures Referred By Contact Refer red To Contact Diagnoses Follow-up examination of abnormal mammogram Alethea Patterson Procedures MM Mammogram Screening Bilat W 3D Lala W CAD YMM Mammogram Diag Bilat W 3D Lala [address] [place] [address] Referral ID Status Reason Start Date Expiration Date Visits V isits Requested Authorized [id number] Incomplete 05/18/2018 08/17/2019 1 1 Encounter Details Date Type Department Care Team Description 05/30/2018 Imaging [facility] 385 Alethea Patterson w-up examination of Mammography Enma Ward MD abnormal mammogram 3850 [facility] [address] [place] [address] [phone] Social History Tobacco Use Types Packs/Day Years [...] unspecified documented in this encounter Care Teams Coppersmith Helper Relationship Specialty Start Date End Date Needs Pcp, Assignment PCP - General 05/03/18 01/01/19 [place] [address] documented as of this encounter
--- OUTSIDE RECORDS SUMMARY | 2022-05-04 09:18 | XMS_ITS | Encounter Summary ---
:1940 Author Organization [facility] Address [address] [place] [address] Care Team Providers Name Role Phone Unavailable Primary Care Provider Unavailable Reason for Visit Reason Comments Release of Information Encounter Details Date Type Department Care Team Description 06/16/2021 Clinical Communication Division of Demarcus Langley Rel ease of Pulmonary Medicine [place] Information in [address] [place] [address] [place], [place] [phone] (Work) [phone] Social History Tobacco Use Types Packs/Day Years [...] or relatives? How often do you attend oriental orthodox or Never 2020 mosque services? Do you belong to any clubs or No 06/11/2021 organizations such as oriental orthodox groups, unions, fraternal or athletic groups, or [...] faxed the [place] Carotid Bilateral order to [facility] ( , ). Thank you, Terri, Pulmonary Med. Admin. Asst. documented in this encounter Plan of Treatment Not on filedocumented as of this encounter Visit Diagnoses Not on filedocumented in this encounter
--- OUTSIDE RECORDS SUMMARY | 2022-05-04 09:18 | XMS_ITS | Encounter Summary ---
:1940 Author Organization [facility] Address [address] [place] [address] Care Team Providers Name Role Phone Unavailable Primary Care Provider Unavailable Reason for Visit Reason Comments Patient Education Encounter Details Date Type Department Care Team Description 06/14/2021 Education Division of Pulmonary Langley, Rachelle Corrales M.D. [address] [place] [address] Emphysema (HCC) Medicine in [place], Darlin Mejia RThaoN. [address] [place] [address] [place] [address] [place] [phone] Social History Tobacco Use Types Packs/Day [...] do you attend mormonism or Never 2020 adventism services? Do you [...] place to sleep or slept in a alf (including now)? Education Answer Date Recorded What [...]
--- OUTSIDE RECORDS SUMMARY | 2022-05-04 09:18 | XMS_ITS | Encounter Summary ---
:1940 Author Organization [facility] Address [address] [place] [address] Care Team Providers Name Role Phone Judy Sorensen MD Primary Care Provider Reason for Visit Reason Onset Date Comments Refill 05/16/2017 atenolol (TENORMIN) 25 MG tablet Encounter Details Date Type Department Care Team Description 05/16/2017 Refill [facility] Gwen Sorensen MD Refill (atenolol Medicine [address] (TENORMIN) 25 MG [address] [place], [place] tablet) [place] [address] [phone] (Wo rk) Social History Tobacco Use Types Packs/Day Years Used Date Smoking Tobacco: Every Day Cigarettes 0.5 40 Smokeless Tobacco: Never Comments: Smoking History Packs/day: Alcohol Use Standard Drinks/Week Comments Yes 7 (1 standard drink = 0.6 oz pure alcoho l) Sex Assigned at Date Recorded Not on file documented as of this encounter Nursing Notes iMchelle Rushing - 05/19/2017 10:38 AM CDT PRINTED letter & sent Ese Yang RN - 05/16/2017 4:29 PM CDT OFFICE APPOINTMENT NEEDED Please notify patient to schedule an appointment within 30 days. Requested Prescriptions Pending Prescriptions Disp Refills atenolol (TENORMIN) 25 MG tablet 90 Tab 0 Sig: Take 1 Tab by mouth daily. Interface, Out [employer] Prov Query - 05/16/2017 3:16 PM CDT [...] 66 mm Hg on 05/17/2016 Powered by [employer], Reference: [id number], 05/16/2017 3:16:22 PM CDT, Pool: KHLOE FP REFILL ([id number]) documented in this encounter Plan of Treatment Not on filedocumented as of this encounter Visit Diagnoses Not on filedocumented in this encounter Care Teams Lawyer Probate Relationship Specialty Start Date End Date Judy Sorensen MD PCP - General 12/18/10 05/02/18 [address] [place] [address] documented as of this encounter
--- OUTSIDE RECORDS SUMMARY | 2022-05-04 09:18 | XMS_ITS | Encounter Summary ---
:1940 Author Organization [facility] Address [address] [place] [address] Care Team Providers Name Role Phone Unavailable Primary Care Provider Unavailable Encounter Details Date Type Department Care Team Description 06/14/2021 Ancillary Procedure Department of Langley, Tracy G, Murmu r Aortic Outflow; Radiology in M.D. Preoperative Examination Cardiovascular; [place], [facility] [address] [facility] Emphysema (HCC) [place], [place] [address] [facility] [address] [place], [place] [phone] (Work) Social History Tobacco Use Types Packs/Day [...] do you attend episcopalian or Never 2020 taoist services? Do you [...]
--- OUTSIDE RECORDS SUMMARY | 2022-05-04 09:18 | XMS_ITS | Encounter Summary ---
:1940 Author Organization [facility] Address [address] [address] Care Team Providers Name Role Phone Judy Sorensen MD Primary Care Provider Reason for Visit Reason Onset Date Comments Reminder Call 06/01/2017 lab Encounter Details Date Type Department Care Team Description 06/01/2017 Telephone [facility] Gwen Sorensen MD Reminder Call (lab) [address] [address] [phone] (Wo rk) Social History Tobacco Use Types [...] on filedocumented in this encounter Care Teams Construction Craft Laborer Relationship Specialty Start Date End Date Judy Sorensen MD PCP - General 12/18/10 05/02/18 [address] [facility] [place] [address] documented as of this encounter
--- OUTSIDE RECORDS SUMMARY | 2022-05-04 09:18 | XMS_ITS | Encounter Summary ---
:1940 Author Organization [facility] Address [address] [place] [address] Care Team Providers Name Role Phone Judy Sorensen MD Primary Care Provider Reason for Visit Reason Comments Annual Exam fasting Encounter Details Date Type Department Care Team Description 08/30/2017 Office Visit [place] Judy Sorensen, [facility] adult exam (Primary Dx); Medicine Essential hypertension; [address] [facility] Tobacco use disorder; [place] [address] [place], [place] Hypokalemia; [phone] Need for Streptococcus pneumoniae vaccin ation; [phone] (Wo rk) Need for influenza vaccination; Simple [...] Comments Blood Pressure 128/82 08/30/2017 11:24 AM MASTER MOTORCYCLE TECHNICIAN Pulse 68 08/30/2017 11:24 AM MASTER MOTORCYCLE TECHNICIAN Temperature - - Respiratory Rate - - Oxygen Saturation - - Inhaled Oxygen Concentration - - Weight 51.3 kg (113 lb) 08/30/2017 11:24 AM MASTER MOTORCYCLE TECHNICIAN Height 151.8 cm (4' 11.75) 08/30/2017 11:24 AM MASTER MOTORCYCLE TECHNICIAN Body Mass Index 22.25 08/30/2017 11:24 AM MASTER MOTORCYCLE TECHNICIAN documented in this encounter Progress Notes Judy [...] aortic 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 Right common iliac 2.4 cm. ??? Aneurysm of common iliac artery ([facility]) 06/21/2016 Overview Note: 2.4 cm right. (1.9 cm left) 2015 ??? Simple chronic bronchitis ([facility]) 05/17/2016 ??? Internal hemorrhoids 02/29/2008 Overview Note: Hemorrhoids Internal NOS ??? Diverticulosis of large intestine 02/29/2008 Overview Note: Diverticulosis Colon ??? Essential hypertension ([facility]) 12/02/2005 Overview Note: LW Onset: ; Hypertension ??? Osteopenia of multiple sites 07/14/2004 Overview Note: Osteopenia ??? Benign neoplasm of colon 07/14/2004 Overview Note: LW Onset: 2000 ; Polyp Colon Adenomatous ??? Tobacco use disorder ([facility]) 02/22/2003 Overview Note: Patient declines attempts to [...] ??? Cancer, Colon Negative Family History ??? [place] Syndrome Negative Family History ??? Diethylstilbestrol Exposure [...] Annual medication review. Medicare prevent visit encouraged. ER MOTORCYCLE TECHNICIAN documented in this encounter Plan of [...] bronchitis documented in this encounter Care Teams Impress Associate Relationship Specialty Start Date End Date Judy Sorensen MD PCP - General 12/18/10 05/02/18 [address] [place] [address] documented as of this encounter
--- OUTSIDE RECORDS SUMMARY | 2022-05-04 09:18 | XMS_ITS | Clinical Summary ---
:1940 Author Organization [facility] Address [address] [place] [address] Care Team Providers Name Role Phone Alethea Patterson MD Primary Care Provider [phone] Source Comments You are receiving this document [...] for each transition of care or referral. [facility] Allergies No known active allergies Medications Medication [...] Date Adenomatous polyp 08/31/2017 Overview: Colonoscopy at [facility] 2014, due 2019 Abdominal aortic aneurysm (AAA) [...] 08/30/2017, 05/17/2016, 1 10/06/2014, Highdose, 65+ Yrs ([address]) 06/27/2014 Influenza, Unspecified Formulation 07/03/2003, 08/01/2002, 1 [...] Family History Cancer, Ovary Negative Family History [place] Syndrome Negative Family History Diethylstilbestrol Exposure Negative [...] Comments Blood Pressure 128/82 08/30/2017 11:24 AM WREATH MACHINE OPERATOR Pulse 68 08/30/2017 11:24 AM WREATH MACHINE OPERATOR Temperature 36.2 ??C (97.2 ??F) 01/02/2015 9:58 AM CDT Respiratory Rate 16 01/02/2015 9:58 AM CDT Oxygen Saturation 96% 09/05/2008 1:24 PM WREATH MACHINE OPERATOR Inhaled Oxygen Concentration - - Weight 51.3 kg (113 lb) 08/30/2017 11:24 AM WREATH MACHINE OPERATOR Height 151.8 cm (4' 11.75) 08/30/2017 11:24 AM WREATH MACHINE OPERATOR Body Mass Index 22.25 08/30/2017 11:24 AM WREATH MACHINE OPERATOR Plan of Treatment Health Maintenance Due Date [...] to complete this to pic Care Teams Brim Stiffener Relationship Specialty Start Date End Date Alethea Patterson MD PCP - General Family Practice 01/02/[address] [place] [address]
--- OUTSIDE RECORDS SUMMARY | 2022-05-04 09:19 | XMS_ITS | Encounter Summary ---
:1940 Author Organization [facility] Address [address] [address] Care Team Providers Name Role Phone Judy Sorensen MD Primary Care Provider Reason for Visit Reason Comments MEDICATION THERAPY MANAGEMENT Encounter Details Date Type Department Care Team Description 05/17/2016 Office Visit [facility] Judy Sorensen, Abno rmal weight loss (Primary Dx); Medicine Tobacco use disorder; [address] Chronic ischemic heart disease; [place] [address] [place], [place] Need for influenza vaccinati on; [phone] Cough; [phone] (Wo rk) Urethral caruncle; PVD (harley pheral [...] Body Mass Index 22.06 10/16/2013 1:04 PM JIGMAKER documented in this encounter Patient Instructions Patient InstructionsJuyd Larsen MD - 05/17/2016 12:39 PM CDT [...] ather blood counts. Long-term tobacco abuse. Negative [place]. She has no intent at this point [...] time more than half of the visit. AKER documented in this encounter Plan of Treatment [...] disorders documented in this encounter Care Teams Timers Inspector Relationship Specialty Start Date End Date Judy Sorensen MD PCP - General 12/18/10 05/02/18 [address] [place] [address] documented as of this encounter
--- OUTSIDE RECORDS SUMMARY | 2022-05-04 09:19 | XMS_ITS | Encounter Summary ---
:1940 Author Organization [employer] Address [address] [place] [address] Care Team Providers Name Role Phone Alethea Patterson MD Primary Care Provider [phone] Encounter Details Date Type Department Care Team Description 05/18/2016 Notes/Orders Restoration Interventional Perla Bowman To bacco use disorder (Primary Dx); Radiology R, RN Current smoker; [address] [place] [address] Social History Tobacco Use Types Packs/Day Years [...] with current nicotine dependence and active smoking. NICAL SALES DIRECTOR Perla Bowman, RN - 06/20/2016 1:31 AM CDT Pt had CT lung screen in December 2014. At that time the radiologist recommended a follow-up CT lung screen in 12 months. Order pended and routed to physician to be signed. Once order signed, pt will be notified to schedule scan. NICAL SALES DIRECTOR documented in this encounter Plan of Treatment [...] health documented in this encounter Care Teams Certified Pediatric Nurse Practitioner Relationship Specialty Start Date End Date Alethea Patterson MD PCP - General Family Practice 01/02/19[address] [place] [address] documented as of this encounter
--- OUTSIDE RECORDS SUMMARY | 2022-05-04 09:19 | XMS_ITS | Encounter Summary ---
:1940 Author Organization [employer] Address [address] [place] [address] Care Team Providers Name Role Phone Judy Sorensen MD Primary Care Provider Reason for Visit Reason Onset Date Comments Lab Questions 05/25/2016 Encounter Details Date Type Department Care Team Description 05/25/2016 Telephone [facility] Judy Christensen MD Lab Questions [address] [place] [address] [place], [place] [address] (Wo rk) Social History Tobacco Use Types [...] enough to have it done locally in [place]. Enma Jacob RN - 05/25/2016 12:37 PM CDT Reason for Call: PFT Next Steps: Document further recommendations and route to appropriate person or pool. Caller IS expecting a call back from Care Team. Additional Information: Spoke with pt. She is living in [place] and only place for PFT now is [facility]. She reports she was advised end of this month they will begin scheduling pt for this at . She would like to verify if provider feels it is ok to wait for this or if feels needs done now and should go to [facility]. Please advise. Lidia Riley - 05/25/2016 12:30 PM CDT Caller states she is to have a test done but not at [facility]. She is interested in having it done in [place], but it is a couple of weeks out. Pt wants to make sure it is ok to wait. documented in this encounter Plan of Treatment Not on filedocumented as of this encounter Visit Diagnoses Not on filedocumented in this encounter Care Teams Milling Supervisor Relationship Specialty Start Date End Date Judy Sorensen MD PCP - General 12/18/10 05/02/18 [address] [place] [address] documented as of this encounter
--- OUTSIDE RECORDS SUMMARY | 2022-05-04 09:19 | XMS_ITS | Encounter Summary ---
:1940 Author Organization [employer] Address [address], [place] [address] Care Team Providers Name Role Phone Judy Sorensen MD Primary Care Provider Reason for Visit Reason Comments Refill ranitidine (ZANTAC) 300 MG t ablet [Pharmacy Med Name: RANITIDINE 300MG] Encounter Details Date Type Department Care Team Description 06/21/2016 Refill [facility] Gwen Sorensen MD Refill (ranitidine Medicine [address] (ZANTAC) 300 MG tablet [address] [place], [place] [Pharmacy Med Name: [place] [address] RANITIDINE 300MG]) [phone] (Wo rk) Social History Tobacco Use Types [...] GARCÍA Ordering User: CADE HUFF Interface, Out [employer] Prov Query - 06/21/2016 10:11 AM CDT [...] - NEXT SCHEDULED VISIT: None Powered by [employer], Reference: [id number], 06/21/2016 10:11:35 AM CDT, Pool: KHLOE FP REFILL ([id number]) Electronically signed by Interface, Out [employer] Prov Query at 06/22/2016 2:54 PM CDT documented in this encounter Plan of Treatment Not on filedocumented as of this encounter Visit Diagnoses Not on filedocumented in this encounter Care Teams Deboner Relationship Specialty Start Date End Date Judy Sorensen MD PCP - General 12/18/10 05/02/18 [address] [place], [place] [address] documented as of this encounter
--- OUTSIDE RECORDS SUMMARY | 2022-05-04 09:19 | XMS_ITS | Encounter Summary ---
:1940 Author Organization [employer] Address [address] [place] [address] Care Team Providers Name Role Phone Judy Sorensen MD Primary Care Provider Reason for Visit Procedure/Equipment (Routine) - Incomplete Specialty Diagnoses / Procedures Referred By Contact Refer red To Contact Diagnoses Visit for screening Judy Sorensen MD Procedures MM Mammogram Screening Bilat W CAD [address] [place], [place] [address] Referral ID Status Reason Start Date Expiration Date Visits V isits Requested Authorized [id number] Incomplete 02/06/2017 05/08/2018 1 1 Encounter Details Date Type Department Care Team Description 02/10/2017 Imaging [facility] Judy Sorensen MD Visit for screening [address] [place] [address] [place], [place] [phone] [address] (Wo rk) Social History Tobacco Use Types [...] is un remarkable. Judy Sorensen MD RAD [facility] documented in this encounter Visit Diagnoses Diagnosis Visit for screening Screening for unspecified condition documented in this encounter Care Teams Metal Products Viewer Relationship Specialty Start Date End Date Judy Sorensen MD PCP - General 12/18/10 05/02/18 [address] [place] [address] documented as of this encounter
--- OUTSIDE RECORDS SUMMARY | 2022-05-04 09:19 | XMS_ITS | Encounter Summary ---
:1940 Author Organization [employer] Address [address] [place] [address] Care Team Providers Name Role Phone Alethea Patterson MD Primary Care Provider [phone] Reason for Visit Reason Comments Refill Encounter Details Date Type Department Care Team Description 05/05/2016 Refill [facility] Judy Christensen MD Refill [address] [place] [address] [place], [place] [address] (Wo rk) Social History Tobacco Use Types [...] (Sent to [facility]) Powered by [employer], Reference: [id number], 05/05/2016 10:51:58 AM CDT, Pool: KHLOE FP REFILL ([id number]) Claire Simon - 05/09/2016 1:21 PM CDT [...] on filedocumented in this encounter Care Teams Date Pitter Relationship Specialty Start Date End Date Alethea Patterson MD PCP - General Family Practice 01/02/19[address] [place] [address] documented as of this encounter
--- OUTSIDE RECORDS SUMMARY | 2022-05-04 09:19 | XMS_ITS | Encounter Summary ---
:1940 Author Organization [facility] Address [address] [place] [address] Care Team Providers Name Role Phone Judy Sorensen MD Primary Care Provider Encounter Details Date Type Department Care Team Description 05/17/2016 Lab Visit [facility] Abnormal weight loss; [address] [facility] Essential hypertension; [place] [address] Screening cholesterol level [phone] Social History Tobacco Use Types Packs/Day Years [...] - 05/17/2016 2:40 PM CDT Performed at [facility], [address] [place] [address] CLIA number [id number] Judy Sorensen MD LAB_1 Performing Organization Address [...] - 05/17/2016 2:40 PM CDT Performed at [facility], [address] [place] [address] CLIA number [id number] Judy Sorensen MD LAB_1 Performing Organization Address [facility] Phon e Number HP CONVERSION Complete [...] - 05/17/2016 1:20 PM CDT Performed at [facility], [address] [place] [address] CLIA number [id number] Judy Sorensen MD LAB_1 Performing Organization Address [facility] Phon e Number HP CONVERSION ALT (SGPT) (05/17/2016 1:07 PM CDT) [facility] gist Method Time Signature Alanine 10 9 - 55 HP CONVERSION Aminotransferase U/L Specimen Anatomical Collection Method Collection Time Receive d Time (Source) Location / / Volume Laterality 05/17/2016 1:07 PM 6 1:07 CDT PM CDT Narrative HP CONVERSION - 05/17/2016 2:40 PM CDT Performed at [facility], [address] [place] [address] CLIA number [id number] Judy Sorensen MD LAB_1 Performing Organization Address City/[facility] Phon e Number HP CONVERSION Thyroid Stimulating Hormone (05/17/2016 1:07 PM CDT) P athologist Signature Thyroid 1.02 0.20 - HP CONVERSION Stimulating 4.50 Hormone uIU/mL Specimen Anatomical Collection Method Collection Time Receive d Time (Source) Location / / Volume Laterality 05/17/2016 1:07 PM 6 4:45 CDT PM CDT Narrative HP CONVERSION - 05/17/2016 5:23 PM CDT Performed at [facility], [address] [place] [address] CLIA number [id number] Judy Sorensen MD LAB_1 Performing Organization Address City/State/ZIP Code Phon e Number HP CONVERSION documented in this encounter Visit Diagnoses Diagnosis Abnormal weight loss Loss of weight Essential hypertension ([facility]) Unspecified essential hypertension Screening cholesterol level Screening for lipoid disorders documented in this encounter Care Teams Landscape Drafter Relationship Specialty Start Date End Date Judy Sorensen MD PCP - General 12/18/10 05/02/18 [address] [place] [address] documented as of this encounter
--- OUTSIDE RECORDS SUMMARY | 2022-05-04 09:19 | XMS_ITS | Encounter Summary ---
:1940 Author Organization [email or web address] Address [address] [place] [address] Care Team Providers Name Role Phone Judy Sorensen MD Primary Care Provider Encounter Details Date Type Department Care Team Description 05/17/2016 Imaging [facility] Abnormal weight loss [address] [place], [place] [address] Social History Tobacco Use Types Packs/Day Years [...] weight documented in this encounter Care Teams Bundle Tier And Labeler Relationship Specialty Start Date End Date Judy Sorensen MD PCP - General 12/18/10 05/02/18 [address] [place] [address] documented as of this encounter
--- OUTSIDE RECORDS SUMMARY | 2022-05-04 09:19 | XMS_ITS | Encounter Summary ---
:1940 Author Organization [employer] Address [address] [place] [address] Care Team Providers Name Role Phone Judy Sorensen MD Primary Care Provider Reason for Visit Reason Onset Date Comments Refill 08/26/2016 ATENolol (TENORMIN) 25 MG tablet; atorvastatin (LIPITOR) 40 MG tablet; chlorthalido ne (HYGROTON) 25 MG tablet Encounter Details Date Type Department Care Team Description 08/26/2016 Refill [facility] Judy Sorensen, Refi ll (ATENolol Medicine (TENORMIN) 25 MG tablet; [address] atorvastatin (LIPITOR) [address] [place] [address] [place], [place] MG tablet; chlorthalidone [phone] (HYGROTON) 25 MG tablet) [phone] (Wo rk) Social History Tobacco Use Types [...] Sig: Take 1 Tab by mouth daily. EMS ACCOUNTANT Interface, Out Surescripts Prov Query - 08/26/2016 [...] 66 mm Hg on 05/17/2016 Powered by [employer], Reference: [id number], 08/26/2016 12:31:42 PM SYSTEMS ACCOUNTANT, Pool: KHLOE FP REFILL ([id number]) atorvastatin (LIPITOR) 40 MG tablet Medication started: 10/16/2013 Last ordered by JUDY GARCÍA: 05/05/2016 (113 days ago) QTY: 90, Refills: 0, Sig: take 1 tablet by mouth daily (every 24 hours). (changed but equivalent) -> Refill x 9 months (until due for an office visit) Last qualifying visit: 05/17/2016 (with JUDY GARCÍA) Next scheduled visit: None Powered by [employer], Reference: [id number], 08/26/2016 12:31:42 PM Markos HAIDER: KHLOE FP REFILL ([id number]) chlorthalidone (HYGROTON) 25 MG tablet Medication started: [...] K: 4.5 mEq/L on 05/17/2016 Powered by [employer], Reference: [id number], 08/26/2016 12:31:42 PM SYSTEMS ACCOUNTANT, Pool: KHLOE FP REFILL ([id number]) EMS ACCOUNTANT documented in this encounter Plan of Treatment Not on filedocumented as of this encounter Visit Diagnoses Not on filedocumented in this encounter Care Teams Industrial Economics Teacher Relationship Specialty Start Date End Date Judy Sorensen MD PCP - General 12/18/10 05/02/18 [address] [place] [address] documented as of this encounter
--- OUTSIDE RECORDS SUMMARY | 2022-05-04 09:19 | XMS_ITS | Encounter Summary ---
:1940 Author Organization [employer] Address [address] [place] [address] Care Team Providers Name Role Phone Judy Sorensen MD Primary Care Provider Encounter Details Date Type Department Care Team Description 06/13/[address] [place] [address] Scan Judy Sorensen MD [place] [address] [place] [address] [place], [place] [phone] (Wo rk) Social History Tobacco Use Types [...] health documented in this encounter Care Teams Retail Marketing Specialist Relationship Specialty Start Date End Date Judy Sorensen MD PCP - General 12/18/10 05/02/18 [address] [place] [address] documented as of this encounter
--- OUTSIDE RECORDS SUMMARY | 2022-05-04 09:20 | XMS_ITS | Encounter Summary ---
:1940 Author Organization [facility] Address [address] [place] [address] Care Team Providers Name Role Phone Judy Sorensen MD Primary Care Provider Encounter Details Date Type Department Care Team Description 10/31/2012 [address] [place] [facility] [address] [place] [address] Social History Tobacco Use Types Packs/Day Years Used Date Smoking Tobacco: Never Assessed Sex Assigned at Date Recorded Not on file documented as of this encounter Plan of Treatment Not on filedocumented as of this encounter Visit Diagnoses Not on filedocumented in this encounter Care Teams Goodyear Welter Relationship Specialty Start Date End Date Judy Sorensen MD PCP - General 12/18/10 05/02/18 [address] [place], [place] [address] documented as of this encounter
--- OUTSIDE RECORDS SUMMARY | 2022-05-04 09:20 | XMS_ITS | Encounter Summary ---
:1940 Author Organization [employer] Address [address] [place] [address] Care Team Providers Name Role Phone Judy Sorensen MD Primary Care Provider Reason for Visit Reason Comments Refill Encounter Details Date Type Department Care Team Description 05/05/2016 Refill [facility] Judy Christensen MD Refill [address] [place] [address] [place], [place] [address] (Wo rk) Social History Tobacco Use Types [...] - LAST QUALIFYING VISIT WITH JUDY LARSEN: 04/28/2015 - NEXT SCHEDULED VISIT: None - SBP: 112mm Hg on 04/28/2015 - DBP: 82mm Hg on 04/28/2015 ADDITIONAL SCHEDULING ACTIONS TAKEN: - CR for chlorthalidone (HYGROTEN) 25 mg tablet (Sent to [facility]) - K for chlorthalidone (HYGROTEN) 25 mg tablet (Sent to [facility]) - NA for chlorthalidone (HYGROTEN) 25 mg tablet (Sent to [facility]) Powered by [employer], Reference: [id number], 05/05/2016 10:51:58 AM CDT, Pool: KHLOE FP REFILL ([id number]) 2) atorvastatin (LIPITOR) 40 mg tablet - [...] (Sent to [facility]) Powered by [employer], Reference: [id number], 05/05/2016 10:51:58 AM CDT, Pool: KHLOE VICTOR REFILL ([id number]) E ADMINISTRATION ANALYST Cade Huff, RN - 05/05/2016 12:06 PM [...] from the original note were not included. [facility] Sol Oliva [address] [place] [address] May 06, 2016 Dear Sol Oliva, We recently received a renewal request for your prescription(s). While reviewing your chart, we noticed that you are due for a visit with your doctor. To receive future refills, please schedule an office visit within the next month. At [facility], your health care is important to us. Please call [phone] to schedule an appointment. Thank you for choosing [facility] for your health care needs. Your [facility] Primary Care Team E ADMINISTRATION ANALYST documented in this encounter Plan of Treatment Not on filedocumented as of this encounter Visit Diagnoses Not on filedocumented in this encounter Care Teams Classified Copy Control Clerk Relationship Specialty Start Date End Date Judy Sorensen MD PCP - General 12/18/10 05/02/18 [address] [place] [address] documented as of this encounter
--- OUTSIDE RECORDS SUMMARY | 2022-05-04 09:20 | XMS_ITS | Encounter Summary ---
:1940 Author Organization [employer] Address [address] [place] [address] Care Team Providers Name Role Phone Judy Sorensen MD Primary Care Provider Reason for Visit Reason Comments MEDICATION CHECK Encounter Details Date Type Department Care Team Description 12/23/2014 Office Visit [facility] Judy Sorensen, Yohana osorio, class I (Primary Dx); Medicine MD Unspecified essential hypertension; [address] Tobacco use disorder; [address] Gastroesophageal reflux disease without esophagitis; [place], [place]; [address] Screening for diabetes mellitus; [phone] Chronic ischemi c heart disease, unspecified (Work) [...] Body Mass Index 24.22 10/16/2013 1:04 PM STOGIE PACKER documented in this encounter Progress Notes Judy [...] History Diagnosis Date ??? Coronary artery disease ([facility]) ??? Hypertension ([facility]) ??? Hyperlipidemia ([facility]) Patient Active Problem List Diagnosis Date Noted [...] cancer risks. Offered to have her contact [facility] pharmacist if ready to quit in [...] ied documented in this encounter Care Teams Medical Social Worker Relationship Specialty Start Date End Date Judy Sorensen MD PCP - General 12/18/10 05/02/18 [address] [place] [address] documented as of this encounter
--- OUTSIDE RECORDS SUMMARY | 2022-05-04 09:20 | XMS_ITS | Encounter Summary ---
:1940 Author Organization [employer] Address [address] [place] [address] Care Team Providers Name Role Phone Judy Sorensen MD Primary Care Provider Encounter Details Date Type Department Care Team Description 10/16/2013 Lab Visit [facility] Unspecified essential hypert ension; [address] Chronic ischemic heart disea se, unspecified; [place] [address] Screening for diabetes [facility] [phone] Social History Tobacco Use Types Packs/Day Years Used Date Smoking Tobacco: Never Assessed Sex Assigned at Date Recorded Not on file documented as of this encounter Plan of Treatment Not on filedocumented as of this encounter Procedures Procedure Name Priority Date/Time Associated Diagnosis Comme nts GLUCOSE Routine 10/16/2013 2:40 PM Screening for Results for this [facility] diabetes mellitus procedure are in the results section. LIPID PANEL AND Routine 10/16/2013 2:40 PM Chronic ischemic Re sults for this DIRECT LDL(IF [facility] heart disease, procedure ar e in NEEDED) unspecified the results section. CREATININE / GFR Routine 10/16/2013 2:40 PM Unspecified essent ial Results for this [facility] hypertension (HRC) procedure are in the results section. ELECTROLYTE PANEL Routine 10/16/2013 2:40 PM Unspecified essen tial Results for this [facility] hypertension (HRC) procedure are in the results section. ALT (SGPT) Routine 10/16/2013 2:40 PM Chronic ischemic Resul ts for this [facility] heart disease, procedure are in unspecified the results section. documented in this encounter Results GLUCOSE (10/16/2013 2:40 PM [facility]) athologist Signature Lab Glucose 99 60 - 100 HP CONVERSION mg/dL Specimen Anatomical Collection Method Collection Time Receive d Time (Source) Location / / Volume Laterality 10/16/2013 2:40 PM 4 2:40 [facility] PM [facility] Narrative HP CONVERSION - 10/16/2013 5:44 PM [facility] Performed at [facility], [address] [place] [address] Judy Sorensen MD LAB_1 Performing Organization Address [facility] Phon e Number HP CONVERSION Lipid Panel and Direct LDL(If Needed) (10/16/2013 2:40 PM [facility]ER[facility]) [facility] Method Time Signature Cholesterol 185 0 [...] Volume Laterality 10/16/2013 2:40 PM 4 2:40 [facility] PM [facility] Narrative HP CONVERSION - 10/16/2013 5:44 PM [facility] Performed at [facility], [address] [place] [address] Judy Sorensen MD LAB_1 Performing Organization Address [facility] Phon e Number HP CONVERSION ALT (SGPT) (10/16/2013 2:40 PM [facility]IAN [facility]ERGY) [facility] Method Time Signature Alanine 22 4 - 55 HP CONVERSION Aminotransferase U/L Specimen Anatomical Collection Method Collection Time Receive d Time (Source) Location / / Volume Laterality 10/16/2013 2:40 PM 4 2:40 [facility] PM [facility] Narrative HP CONVERSION - 10/16/2013 5:44 PM [facility] Performed at [facility], [address] [place] [address] Judy Sorensen MD LAB_1 Performing Organization Address [facility] Phon e Number HP CONVERSION (ABNORMAL) Electrolyte Panel (10/16/2013 2:40 PM [facility]) athologist Signature Sodium 145 137 - 147 HP CONVERSION mEq/L Potassium 4.2 3.5 - 5.2 HP CONVERSION mEq/L Chloride 103 98 - 110 HP CONVERSION mEq/L Bicarbonate 37 (H) 23 - 33 HP CONVERSION mmol/L Specimen Anatomical Collection Method Collection Time Receive d Time (Source) Location / / Volume Laterality 10/16/2013 2:40 PM 4 2:40 [facility] PM [facility] Narrative HP CONVERSION - 10/16/2013 5:44 PM [facility] Performed at [facility], [address] [place] [address] Judy Sorensen MD LAB_1 Performing Organization Address [facility] Phon e Number HP CONVERSION Creatinine / GFR (10/16/2013 2:40 PM [facility]) athologist Signature Creatinine 0.9 0.4 - 1.3 [...] Volume Laterality 10/16/2013 2:40 PM 4 2:40 [facility] PM [facility] Narrative HP CONVERSION - 10/16/2013 5:44 PM [facility] Performed at [facility], [address] [place] [address] Judy Sorensen MD LAB_1 Performing Organization Address [facility] Phon e Number HP CONVERSION documented in this encounter Visit Diagnoses Diagnosis Unspecified essential hypertension (HRC) Unspecified essential hypertension Chronic ischemic heart disease, unspecif ied (HRC) Chronic ischemic heart disease, unspecif ied Screening for diabetes mellitus documented in this encounter Care Teams Laboratory Engineer Relationship Specialty Start Date End Date Judy Sorensen MD PCP - General 12/18/10 05/02/18 [address] [place] [address] documented as of this encounter
--- OUTSIDE RECORDS SUMMARY | 2022-05-04 09:20 | XMS_ITS | Encounter Summary ---
:1940 Author Organization [employer] Address [address] [place] [address] Care Team Providers Name Role Phone Judy Sorensen MD Primary Care Provider Reason for Visit Reason Comments Annual Exam Encounter Details Date Type Department Care Team Description 09/19/2012 Office Visit Judy James, Well woman exam (Primary Dx); Medicine Chronic ischemic heart disease, unspecif ied; [address] Unspecified essential hypertension; [place] [address] [place], [place] Need for diphtheria-tetanus- pertussis (Tdap) vaccine; [phone] Need for pneumococcal vaccination; [phone] (Wo rk) Screening for malignant neoplasm of the cervix Social History Tobacco Use Types Packs/Day Years Used Date Smoking Tobacco: Never Assessed Sex Assigned at Date Recorded Not on file documented as of this encounter Last Filed Vital Signs Vital Sign Reading Time Taken Comments Blood Pressure 143/61 09/19/2012 1:11 PM HAND STONECUTTER Pulse 61 09/19/2012 1:11 PM HAND STONECUTTER Temperature - - Respiratory Rate - - Oxygen Saturation - - Inhaled Oxygen Concentration - - Weight 57.2 kg (126 lb) 09/19/2012 1:05 PM HAND STONECUTTER Height 151.1 cm (4' 11.5) 09/19/2012 1:05 PM HAND STONECUTTER Body Mass Index 25.02 09/19/2012 1:05 PM HAND STONECUTTER documented in this encounter Progress Notes Judy [...] (NA, K, CL, Bicarb); Future Need for zymcbuzadr-ajvjnaz-qyneftfdk (tdap) vaccine - Tdap (BOOSTRIX) Need for [...] PM Result s for this LIQUID BASED HAND STONECUTTER procedure are i n the results section. PAP SMEAR SCREENING Routine 09/19/2012 2:00 PM Screening for R esults for this HAND STONECUTTER malignant neoplasm procedure are in of the cervix the results section. documented in this encounter Results Pap Smear (09/19/2012 2:00 PM HAND STONECUTTER) Specimen (Source) Anatomical Collection Method Collection Time Re ceived Time Location / / Volume Laterality 09/19/2012 2:00 PM HAND STONECUTTER Narrative HP CONVERSION - 09/24/2012 2:53 PM HAND STONECUTTER Final GYNECOLOGICAL CYTOLOGY REPORT Pathology #: [id number] ?Date Obtained: 09/19/2012 ? Date Received: 09/20/2012 [...] Judy Sorensen MD LAB_1 Performing Organization Address City/State/[facility] Code Phon e Number HP CONVERSION Pap Smear Screening (09/19/2012 2:00 PM HAND STONECUTTER) P athologist Signature PAP Routine Collected HP CONVERSION Specimen Anatomical Collection Method Collection Time Receive d Time (Source) Location / / Volume Laterality 09/19/2012 2:00 PM 3 6:14 HAND STONECUTTER AM HAND STONECUTTER Judy Sorensen MD LAB_1 Performing Organization Address City/[facility] Phon e Number HP CONVERSION documented in this encounter Visit Diagnoses Diagnosis Well woman exam - Primary Routine general medical examination at a health care facility Chronic ischemic heart disease, unspecif ied (HRC) Chronic ischemic heart disease, unspecif ied Unspecified essential hypertension (HRC) Unspecified essential hypertension Need for sbpgnifohs-vhnrilx-hugkkqwpq (T dap) vaccine Need for prophylactic vaccination with c ombined mahforokhg-stgxues-tukpwlpdb (DTP) vaccine Need for pneumococcal vaccination Need for prophylactic vaccination agains t streptococcus pneumoniae (pneumococcus) Screening for malignant neoplasm of the cervix documented in this encounter Care Teams Pinsetter Mechanic Helper Relationship Specialty Start Date End Date Judy Sorensen MD PCP - General 12/18/10 05/02/18 [address] [place] [address] documented as of this encounter
--- OUTSIDE RECORDS SUMMARY | 2022-05-04 09:20 | XMS_ITS | Encounter Summary ---
:1940 Author Organization [employer] Address [address], [place] [address] Care Team Providers Name Role Phone Judy Sorensen MD Primary Care Provider Reason for Visit Reason Comments Refill Encounter Details Date Type Department Care Team Description 11/18/2014 Refill [place] Judy Christensen MD Refill [address] [place] [address] [place], [place] [address] (Wo rk) Social History Tobacco Use Types [...] 24 hours). (changed but equivalent) Powered by [employer], Reference: [id number], 11/18/2014 9:43:40 AM Markos HAIDER: KHLOE FP REFILL ([id number]) 2) ranitidine (ZANTAC) 300 mg tablet [Pharmacy [...] mouth nightly. (changed but equivalent) Powered by [employer], Reference: [id number], 11/18/2014 9:43:40 AM Markos HAIDER: KHLOE FP REFILL ([id number]) Michelle Cho - 11/19/2014 3:47 PM CST [...] a qualifying visit prior to further refills. SH MAKER documented in this encounter Plan of Treatment Not on filedocumented as of this encounter Visit Diagnoses Not on filedocumented in this encounter Care Teams Sprayer Operator Relationship Specialty Start Date End Date Judy Sorensen MD PCP - General 12/18/10 05/02/18 [address] [place] [address] documented as of this encounter
--- OUTSIDE RECORDS SUMMARY | 2022-05-04 09:20 | XMS_ITS | Encounter Summary ---
:1940 Author Organization [employer] Address [address] [address] Care Team Providers Name Role Phone Judy Sorensen MD Primary Care Provider Reason for Visit Reason Comments Patient Calling Back Encounter Details Date Type Department Care Team Description 12/24/2014 Telephone [facility] Gwen Sorensen MD Patient Calling Back [facility] [address] [address] [phone] (Wo rk) Social History Tobacco Use Types [...] versus CXR. Please forward to Edwige in [facility] @ x [phone] when Pt returns call. 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 Iordered it as a screen. She [...] did not have to pay anything. Per [facility], if scan is coded as outpatient diagnostic, if should be covered without any additional cost. Please clarify and call pt back at [phone] to advise. Malia Baeza - 12/24/2014 11:00 [...] on filedocumented in this encounter Care Teams Traveling Engineer Relationship Specialty Start Date End Date Judy Sorensen MD PCP - General 12/18/10 05/02/18 [address] [place] [address] documented as of this encounter
--- OUTSIDE RECORDS SUMMARY | 2022-05-04 09:20 | XMS_ITS | Encounter Summary ---
:1940 Author Organization [employer] Address [address] [place] [address] Care Team Providers Name Role Phone Judy Sorensen MD Primary Care Provider Encounter Details Date Type Department Care Team Description 12/23/2014 Lab Visit [facility] Unspecified essential hypert ension; [address] Chronic ischemic heart disea se, unspecified; [place] [address] Screening for diabetes [facility] [phone] Social History Tobacco Use Types Packs/Day Years [...] Results ALT (SGPT) (12/23/2014 9:53 AM CDT) [facility] Method Time Signature Alanine 19 4 - 55 HP CONVERSION Aminotransferase U/L Specimen Anatomical Collection Method Collection Time Receive d Time (Source) Location / / Volume Laterality 12/23/2014 9:53 AM 5 9:53 CDT AM CDT Narrative HP CONVERSION - 12/23/2014 10:56 AM CDT Performed at [facility], [address] [place] [address] Judy Sorensen MD LAB_1 Performing Organization Address City/[facility] Phon e Number HP CONVERSION (ABNORMAL) GLUCOSE (12/23/2014 9:53 AM CDT) athologist Signature Lab Glucose 109 (H) 60 - 100 HP CONVERSION mg/dL Specimen Anatomical Collection Method Collection Time Receive d Time (Source) Location / / Volume Laterality 12/23/2014 9:53 AM 5 9:53 CDT AM CDT Narrative HP CONVERSION - 12/23/2014 10:56 AM CDT Performed at [facility], [address] [place] [address] Judy Sorensen MD LAB_1 Performing Organization Address [facility] Phon e Number HP CONVERSION Lipid Panel and Direct LDL(If Needed) (12/23/2014 9:53 AM CDT) [facility] Method Time Signature Cholesterol 168 0 - [...] - 12/23/2014 10:56 AM CDT Performed at [facility], [address] [place] [address] Judy Sorensen MD LAB_1 Performing Organization Address [facility] Phon e Number HP [...] - 12/23/2014 10:56 AM CDT Performed at [facility], [address] [place] [address] Judy Sorensen MD LAB_1 Performing Organization Address City/[facility] Phon e Number HP [...] - 12/23/2014 10:56 AM CDT Performed at [facility], [address] [place] [address] Judy Sorensen MD LAB_1 Performing Organization Address City/[facility] Phon e Number HP CONVERSION documented in this encounter Visit Diagnoses Diagnosis Unspecified essential hypertension (HRC) Unspecified essential hypertension Chronic ischemic heart disease, unspecif ied (HRC) Chronic ischemic heart disease, unspecif ied Screening for diabetes mellitus documented in this encounter Care Teams Technical Training Instructor Relationship Specialty Start Date End Date Judy Sorensen MD PCP - General 12/18/10 05/02/[address] [place], [place] [id number] documented as of this encounter
--- OUTSIDE RECORDS SUMMARY | 2022-05-04 09:20 | XMS_ITS | Encounter Summary ---
:1940 Author Organization [facility] Address [address] [place] [address] Care Team Providers Name Role Phone Judy Sorensen MD Primary Care Provider Encounter Details Date Type Department Care Team Description 04/01/2014 Imaging [facility] Other screening mammogram [address] [place] [address] Social History Tobacco Use Types [...] be communicated to the patient by the [facility] and we will attempt [...] are seen in either breast. Procedure Note Jsoe Quezada MD - 05/12/2016Formatti ng of this [...] be communicated to the patient by the [facility] and we will attempt to schedule any recommended imaging follow up with the patient. Judy Sorensen MD RAD ILIA documented in this encounter Visit Diagnoses Diagnosis Other screening mammogram documented in this encounter Care Teams Floor Polisher Relationship Specialty Start Date End Date Judy Sorensen MD PCP - General 12/18/10 05/02/18 [address] [place] [address] documented as of this encounter
--- OUTSIDE RECORDS SUMMARY | 2022-05-04 09:20 | XMS_ITS | Encounter Summary ---
:1940 Author Organization [employer] Address [address] [place] [address] Care Team Providers Name Role Phone Judy Sorensen MD Primary Care Provider Reason for Visit Reason Comments Refill Encounter Details Date Type Department Care Team Description 09/05/2013 Telephone [facility] Judy Christensen MD Refill [address] [place] [address] [place], [place] [address] (Wo rk) Social History Tobacco Use Types [...] supply. Comment: due for physical in September E CUTTER documented in this encounter Miscellaneous Notes Letter - Judy Larsen MD - 09/05/2013 12:00 AM CST Images from the original note were not included. [facility] MEDICINE [address] [place] [address] [place] [address] Dept: [phone] Sol Oliva [address] [place] [address] September 06, 2013 Dear Sol Oliva, We [...] provider before your next refill. Please call [facility] at [phone] to schedule an appointment within 30 days. Thank you for choosing [facility] for your health care needs. Your [facility] Primary Care Team E CUTTER documented in this encounter Plan of Treatment Not on filedocumented as of this encounter Visit Diagnoses Not on filedocumented in this encounter Care Teams Snath Handle Assembler Relationship Specialty Start Date End Date Judy Sorensen MD PCP - General 12/18/10 05/02/18 [address] [place] [address] documented as of this encounter
--- OUTSIDE RECORDS SUMMARY | 2022-05-04 09:20 | XMS_ITS | Encounter Summary ---
:1940 Author Organization [facility] Address [address] [place] [address] Care Team Providers Name Role Phone Judy Sorensen MD Primary Care Provider Encounter Details Date Type Department Care Team Description 08/17/2012 Lab Visit [facility] Unspecified essential hypert ension; [address] [place] [address] Social History Tobacco Use Types Packs/Day Years Used Date Smoking Tobacco: Never Assessed Sex Assigned at Date Recorded Not on file documented as of this encounter Plan of Treatment Not on filedocumented as of this encounter Procedures Procedure Name Priority Date/Time Associated Diagnosis Comme nts GLUCOSE Routine 08/17/2012 11:09 Hyperlipidemia Results f or this AM DRAPERY EXAMINER procedure are i n the results section. LIPID PANEL AND Routine 08/17/2012 11:09 Hyperlipidemia Result s for this DIRECT LDL(IF AM DRAPERY EXAMINER procedure are in NEEDED) the results section. CREATININE / GFR Routine 08/17/2012 11:09 Unspecified essentia l Results for this AM DRAPERY EXAMINER hypertension (HRC) procedure are in the results section. ELECTROLYTE PANEL Routine 08/17/2012 11:09 Unspecified essenti al Results for this AM DRAPERY EXAMINER hypertension (HRC) procedure are in the results section. ALT (SGPT) Routine 08/17/2012 11:09 Hyperlipidemia Results f or this AM DRAPERY EXAMINER procedure are i n the results section. documented in this encounter Results GLUCOSE (08/17/2012 11:09 AM DRAPERY EXAMINER) P athologist Signature Lab Glucose 94 60 - 100 HP CONVERSION mg/dL Specimen Anatomical Collection Method Collection Time Receive d Time (Source) Location / / Volume Laterality 08/17/2012 11:09 08/17/2012 AM DRAPERY EXAMINER 11:09 AM DRAPERY EXAMINER Narrative HP CONVERSION - 08/17/2012 12:36 PM DRAPERY EXAMINER Performed at [facility], [address] [place] [address] Judy Sorensen MD LAB_1 Performing Organization Address [facility] Phon e Number HP CONVERSION ALT (SGPT) (08/17/2012 11:09 AM DRAPERY EXAMINER) [facility] Method Time Signature Alanine 18 4 - 55 HP CONVERSION Aminotransferase U/L Specimen Anatomical Collection Method Collection Time Receive d Time (Source) Location / / Volume Laterality 08/17/2012 11:09 08/17/2012 AM DRAPERY EXAMINER 11:09 AM DRAPERY EXAMINER Narrative HP CONVERSION - 08/17/2012 12:36 PM DRAPERY EXAMINER Performed at [facility], [address] [place] [address] Judy Sorensen MD LAB_1 Performing Organization Address [facility] Phon e Number HP CONVERSION Lipid Panel and Direct LDL(If Needed) (08/17/2012 11:09 AM DRAPERY EXAMINER) [facility] Method Time Signature Cholesterol 158 0 - [...] / Volume Laterality 08/17/2012 11:09 08/17/2012 AM DRAPERY EXAMINER 11:09 AM DRAPERY EXAMINER Narrative HP CONVERSION - 08/17/2012 12:36 PM DRAPERY EXAMINER Performed at [facility], [address] [place] [address] Judy Sorensen MD LAB_1 Performing Organization Address [facility] Phon e Number HP CONVERSION (ABNORMAL) Electrolyte Panel (08/17/2012 11:09 AM DRAPERY EXAMINER) athologist Signature Sodium 142 137 - 147 HP CONVERSION mEq/L Potassium 4.7 3.5 - 5.2 HP CONVERSION mEq/L Chloride 105 98 - 110 HP CONVERSION mEq/L Bicarbonate 34 (H) 23 - 33 HP CONVERSION mmol/L Specimen Anatomical Collection Method Collection Time Receive d Time (Source) Location / / Volume Laterality 08/17/2012 11:09 08/17/2012 AM DRAPERY EXAMINER 11:09 AM DRAPERY EXAMINER Narrative HP CONVERSION - 08/17/2012 12:36 PM DRAPERY EXAMINER Performed at [facility], [address] [place], [place] [address] Judy Sorensen MD LAB_1 Performing Organization Address [facility] Phon e Number HP CONVERSION Creatinine / GFR (08/17/2012 11:09 AM DRAPERY EXAMINER) athologist Signature Creatinine 0.7 0.4 - 1.3 [...] / Volume Laterality 08/17/2012 11:09 08/17/2012 AM DRAPERY EXAMINER 11:09 AM DRAPERY EXAMINER Narrative HP CONVERSION - 08/17/2012 12:36 PM DRAPERY EXAMINER Performed at [facility], [address] [place] [address] Judy Sorensen MD LAB_1 Performing Organization Address [facility] Phon e Number HP CONVERSION documented in this encounter Visit Diagnoses Diagnosis Unspecified essential hypertension (HRC) Unspecified essential hypertension Hyperlipidemia (HRC) Other and unspecified hyperlipidemia documented in this encounter Care Teams Advanced Analytics Associate Relationship Specialty Start Date End Date Judy Sorensen MD PCP - General 12/18/10 05/02/[address] [place] [address] documented as of this encounter
--- OUTSIDE RECORDS SUMMARY | 2022-05-04 09:20 | XMS_ITS | Encounter Summary ---
:1940 Author Organization [facility] Address [address] [place] [address] Care Team Providers Name Role Phone Judy Sorensen MD Primary Care Provider Encounter Details Date Type Department Care Team Description 01/02/[address] [address] Scan Tobacco use disorder [address] [place], [place] [address] Social History Tobacco Use Types Packs/Day Years [...] disorder documented in this encounter Care Teams Seismograph Chief Relationship Specialty Start Date End Date Judy Sorensen MD PCP - General 12/18/10 05/02/18 [address] [place] [address] documented as of this encounter
--- OUTSIDE RECORDS SUMMARY | 2022-05-04 09:20 | XMS_ITS | Encounter Summary ---
:1940 Author Organization [employer] Address [address] [place] [address] Care Team Providers Name Role Phone Judy Sorensen MD Primary Care Provider Reason for Visit Reason Comments Refill Encounter Details Date Type Department Care Team Description 02/15/2015 Refill [facility] Judy Christensen MD Refill [address] [place] [address] [place], [place] [address] (Wo rk) Social History Tobacco Use Types [...] - NEXT SCHEDULED VISIT: None Powered by [email or web address], Reference: [id number], 02/15/2015 3:06:27 PM CDT, Pool: KHLOE VICTOR REFILL ([id number]) Keena Asif RN - 02/16/2015 7:31 AM [...] on filedocumented in this encounter Care Teams Material Preparation Worker Relationship Specialty Start Date End Date Judy oSrensen MD PCP - General 12/18/10 05/02/18 [address] [place] [address] documented as of this encounter
--- OUTSIDE RECORDS SUMMARY | 2022-05-04 09:20 | XMS_ITS | Encounter Summary ---
:1940 Author Organization [employer] Address [address] [address] Care Team Providers Name Role Phone Judy Sorensen MD Primary Care Provider Reason for Visit Reason Comments Refill Encounter Details Date Type Department Care Team Description 02/09/[address] [facility] Judy Christensen MD Refill [address] [place] [address] [place], [place] [address] (Wo rk) Social History Tobacco Use Types [...] (Sent to [facility]LL [facility]) Powered by [employer], Reference: [id number], 02/09/2016 3:39:30 PM CDT, Pool: LEDBETTER FP REFILL ([id number]) 2) chlorthalidone (HYGROTEN) 25 mg tablet - [...] (Sent to [facility]) Powered by [employer], Reference: [id number], 02/09/2016 3:39:30 PM CDT, Markos: KHLOE FP REFILL ([id number]) Ese Degroot RN - 02/09/2016 4:22 PM [...] Provider: JUDY GARCÍA Ordering User: ESE DEGROOT TRICAL AND ELECTRONIC ASSEMBLER documented in this encounter Plan of Treatment Not on filedocumented as of this encounter Visit Diagnoses Not on filedocumented in this encounter Care Teams Bulk Plant Agent Relationship Specialty Start Date End Date Judy Sorensen MD PCP - General 12/18/10 05/02/18 [address] [place] [address] documented as of this encounter
--- OUTSIDE RECORDS SUMMARY | 2022-05-04 09:20 | XMS_ITS | Encounter Summary ---
:1940 Author Organization [employer] Address [address] [address] Care Team Providers Name Role Phone Judy Sorensen MD Primary Care Provider Reason for Visit Reason Comments Refill Encounter Details Date Type Department Care Team Description 08/23/2012 Refill [facility] Judy Christensen MD Refill [address] [place] [address] [place], [place] [address] (Wo rk) Social History Tobacco Use Types [...] Authorizing Provider: JUDY GARCÍA Ordering User: BARBARA CASATNO ??? ranitidine (ZANTAC) 300 mg tablet 30 [...] on filedocumented in this encounter Care Teams Refuge Worker Relationship Specialty Start Date End Date Judy Sorensen MD PCP - General 12/18/10 05/02/18 [address] [place] [address] documented as of this encounter
--- OUTSIDE RECORDS SUMMARY | 2022-05-04 09:20 | XMS_ITS | Encounter Summary ---
:1940 Author Organization [employer] Address [address] [address] Care Team Providers Name Role Phone Judy Sorensen MD Primary Care Provider Encounter Details Date Type Department Care Team Description 02/09/2016 Refill Order [facility] Gwen Sorensen MD [address] [address] [place] [address] [phone] Social History Tobacco Use Types Packs/Day Years [...] - NEXT LAB APPOINTMENT: None Powered by [employer], Reference: [id number], 02/09/2016 3:39:31 PM MURRAYTMarkos: KHLOE FP REFILL ([id number]) Lorene Becerra CMA - 02/10/2016 7:31 AM CDT Lab orders have been placed per protocol. TRICAL DESIGNER documented in this encounter Plan of Treatment Not on filedocumented as of this encounter Visit Diagnoses Diagnosis Encounter for long-term (current) use of medications - Primary Encounter for long-term (current) use of other medications documented in this encounter Care Teams Vest Busheler Relationship Specialty Start Date End Date Judy Sorensen MD PCP - General 12/18/10 05/02/18 [address] [place] [address] documented as of this encounter
--- OUTSIDE RECORDS SUMMARY | 2022-05-04 09:20 | XMS_ITS | Encounter Summary ---
:1940 Author Organization [facility] Address [address] [place] [address] Care Team Providers Name Role Phone Judy Sorensen MD Primary Care Provider Encounter Details Date Type Department Care Team Description 04/28/2015 Imaging [place] [facility] [place] Postmenopausal vaginal [address] [facility] [place] [address] Social History Tobacco Use Types Packs/Day Years [...] Nonvisualization of the ovaries. Judy Sorensen MD [facility] documented in this encounter Visit Diagnoses Diagnosis Postmenopausal vaginal bleeding Postmenopausal bleeding documented in this encounter Care Teams Sales Support Coordinator Relationship Specialty Start Date End Date Judy Sorensen MD PCP - General 12/18/10 05/02/18 [address] [place] [address] documented as of this encounter
--- OUTSIDE RECORDS SUMMARY | 2022-05-04 09:20 | XMS_ITS | Encounter Summary ---
:1940 Author Organization [employer] Address [address] [place] [address] Care Team Providers Name Role Phone Judy Sorensen MD Primary Care Provider Encounter Details Date Type Department Care Team Description 08/18/2015 Imaging [facility] Encounter for screening [address] [address] [place] [address] Social History Tobacco Use Types Packs/Day Years Used Date Smoking Tobacco: Never Assessed Sex Assigned at Date Recorded Not on file documented as of this encounter Plan of Treatment Not on filedocumented as of this encounter Procedures Procedure Name Priority Date/Time Associated Diagnosis Comme nts MM MAMMOGRAM Routine 08/18/2015 11:54 AM Encounter for Results for this SCREENING BILAT W BUSINESS PROCESS REPRESENTATIVE screening mammogram pro cedure are in CAD for breast cancer the result s section. documented in this encounter Results MM Mammogram Screening Bilat W CAD (08/18/2015 11:54 AM BUSINESS PROCESS REPRESENTATIVE) Anatomical Region Laterality Modality Breast Bilateral Mammography Specimen (Source) Anatomical Location Collection Method / Collectio n Time Received Time / Laterality Volume Impressions 08/18/2015 2:11 PM BUSINESS PROCESS REPRESENTATIVE : BI-RADS 1 Negative (overall) Follow Up Mammogram in 1 year - Gómez saunders The results and recommendations of this examination will be communicated to the patient by the [facility] and we will attempt to schedule any recommended imaging follow up with the patient. Narrative 08/18/2015 2:11 PM BUSINESS PROCESS REPRESENTATIVE Compared to: 04/01/2014 MM Mammogram Screening Bilateral [...] be communicated to the patient by the [facility] and we will attempt to schedule any recommended imaging follow up with the patient. Judy Sorensen MD [facility] documented in this encounter Visit Diagnoses Diagnosis Encounter for screening mammogram for br east cancer documented in this encounter Care Teams Landscape Architect Relationship Specialty Start Date End Date Judy Sorensen MD PCP - General 12/18/10 05/02/18 [address] [place] [address] documented as of this encounter
--- OUTSIDE RECORDS SUMMARY | 2022-05-04 09:20 | XMS_ITS | Encounter Summary ---
:1940 Author Organization [employer] Address [address] [place] [address] Care Team Providers Name Role Phone Judy Sorensen MD Primary Care Provider Reason for Visit Reason Comments IMMUNIZATIONS Encounter Details Date Type Department Care Team Description 06/20/2014 Telephone [facility] Judy Christensen MD IMMUNIZATIONS [address] [facility] [address] [place] [address] [place], [place] [address] (Wo rk) Social History Tobacco Use Types [...] on filedocumented in this encounter Care Teams Caddie Relationship Specialty Start Date End Date Judy Sorensen MD PCP - General 12/18/10 05/02/18 [address] [place] [address] documented as of this encounter
--- OUTSIDE RECORDS SUMMARY | 2022-05-04 09:20 | XMS_ITS | Encounter Summary ---
:1940 Author Organization [employer] Address [address] [place] [address] Care Team Providers Name Role Phone Judy Sorensen MD Primary Care Provider Reason for Visit Reason Comments HSN Follow Up Encounter Details Date Type Department Care Team Description 09/19/2012 Telephone [facility] [place] [address] [place] [address] [place], [place] [address] (Wo rk) Social History Tobacco Use Types [...] on filedocumented in this encounter Care Teams Anesthesiologist/Physician Relationship Specialty Start Date End Date Judy Sorensen MD PCP - General 12/18/10 05/02/18 [address] [place], [place] [address] documented as of this encounter
--- OUTSIDE RECORDS SUMMARY | 2022-05-04 09:20 | XMS_ITS | Encounter Summary ---
:1940 Author Organization [employer] Address [address] [place] [address] Care Team Providers Name Role Phone Judy Sorensen MD Primary Care Provider Reason for Visit Reason Comments BLOOD PRESSURE CHECK Encounter Details Date Type Department Care Team Description 10/31/2012 Office Visit [facility] Judy Sorensen, [facility] ecified essential Medicine hypertension (Primary [address]x) [place] [address] [place], [place] [phone] [address] (Wo rk) Social History Tobacco Use Types Packs/Day Years Used Date Smoking Tobacco: Never Assessed Sex Assigned at Date Recorded Not on file documented as of this encounter Last Filed Vital Signs Vital Sign Reading Time Taken Comments Blood Pressure 138/88 10/31/2012 11:39 AM HATCHERY WORKER Pulse 64 10/31/2012 11:39 AM HATCHERY WORKER Temperature - - Respiratory Rate - - Oxygen Saturation - - Inhaled Oxygen Concentration - - Weight 57.2 kg (126 lb) 10/31/2012 11:39 AM HATCHERY WORKER Height - - Body Mass Index 25.02 09/19/2012 1:05 PM HATCHERY WORKER documented in this encounter Progress Notes Judy [...] hypertension documented in this encounter Care Teams Power Tool Repair Technician Relationship Specialty Start Date End Date Judy Sorensen MD PCP - General 12/18/10 05/02/18 [address] [place] [address] documented as of this encounter
--- OUTSIDE RECORDS SUMMARY | 2022-05-04 09:20 | XMS_ITS | Encounter Summary ---
:1940 Author Organization [employer] Address [address] [place] [address] Care Team Providers Name Role Phone Judy Sorensen MD Primary Care Provider Reason for Visit Reason Comments Annual Exam Encounter Details Date Type Department Care Team Description 10/16/2013 Office Visit [facility] Judy Sorensen, Well woman exam (Primary Dx); Medicine MD Unspecified essential hypertension; [address] Chronic ischemic heart disease, unspecif ied; [place] [address] [place], [place] Screening for diabetes melli tus; [phone] Benign neoplasm of colon; [phone] (Wo rk) Impacted cerumen; Dizziness Social History Tobacco Use Types Packs/Day Years Used Date Smoking Tobacco: Never Assessed Sex Assigned at Date Recorded Not on file documented as of this encounter Last Filed Vital Signs Vital Sign Reading Time Taken Comments Blood Pressure 112/60 10/16/2013 1:04 PM unable to get manual HEEL BOOM OPERATOR Pulse 58 10/16/2013 1:04 PM HEEL BOOM OPERATOR Temperature - - Respiratory Rate - - Oxygen Saturation - - Inhaled Oxygen - - Concentration Weight 56.8 kg (125 lb 2 10/16/2013 1:04 PM oz) HEEL BOOM OPERATOR Height 151.8 cm (4' 11.75) 10/16/2013 1:04 PM HEEL BOOM OPERATOR Body Mass Index 24.64 10/16/2013 1:04 PM HEEL BOOM OPERATOR documented in this encounter Progress Notes Judy Larsen MD - 10/16/2013 2:34 PM CST Chief Complaint Patient presents with ??? Annual Exam fasting Subjective: Sol Oliva is a 72 y.o. female here for routine exam. Current Complaints: No exertional chest symptoms. Some dry cough. Smoking, no interest in quitting. Needs colonoscopy but living in [place] would prefer to have it done locally [...] Adenomatous - Colonoscopy; Future Impacted cerumen - [place] REMOVAL IMPACTED CERUMEN INSTRUMENTATION UNILAT Dizziness Other [...] be sent to her local hospital in [place]. Follow-up prn for cerumen removal following softener drops applied to ear canals for 3 days. Consider work-up if continues with dizzy spells with MRI, MRA. Restart every other day aspirin 81 mg. NOTE: Duplicate encounter notes, initial was pending revisions and was inadvertently saved. See thisnote for complete and updated details. BOOM OPERATOR Judy Larsen MD - 10/16/2013 2:32 PM [...] that were given to the patient today. BOOM OPERATOR documented in this encounter Plan of [...] giddiness documented in this encounter Care Teams Shipping Packer Relationship Specialty Start Date End Date Judy Sorensen MD PCP - General 12/18/10 05/02/18 [address] [place] [address] documented as of this encounter
--- OUTSIDE RECORDS SUMMARY | 2022-05-04 09:20 | XMS_ITS | Encounter Summary ---
:1940 Author Organization [employer] Address [address] [place] [address] Care Team Providers Name Role Phone Judy Sorensen MD Primary Care Provider Reason for Visit Reason Comments Provider Return Call Request Encounter Details Date Type Department Care Team Description 10/17/2013 Telephone [facility] Judy Sorensen, [facility] ider Return Call Medicine MD Request [address] [place] [address] [place], [place] [phone] (Wo rk) Social History Tobacco Use Types [...] list. Will fax to number listed below. SURVEYOR Chasity Martell - 10/17/2013 10:59 AM CST Please fax # [phone]-problem and medication list for the colonoscopy order that was sent to Dr Gerry Mccabe in Gastro at the [facility] in [place] prior to scheduling. documented in this encounter Plan of Treatment Not on filedocumented as of this encounter Visit Diagnoses Not on filedocumented in this encounter Care Teams Risk Consulting Treasury Director Relationship Specialty Start Date End Date Judy Sorensen MD PCP - General 12/18/10 05/02/18 [address] [place] [address] documented as of this encounter
--- OUTSIDE RECORDS SUMMARY | 2022-05-04 09:20 | XMS_ITS | Encounter Summary ---
:1940 Author Organization [employer] Address [address] [place] [address] Care Team Providers Name Role Phone Judy Sorensen MD Primary Care Provider Reason for Visit Reason Comments Refill Encounter Details Date Type Department Care Team Description 02/14/2015 Refill [facility] Judy Christensen MD Refill [address] [place] [address] [place], [place] [address] (Wo rk) Social History Tobacco Use Types [...] - NEXT SCHEDULED VISIT: None Powered by [employer], Reference: [id number], 02/14/2015 9:08:58 AM CDT, Pool: KHLOE FP REFILL ([id number]) Whitley Kolb - 02/15/2015 3:14 PM CDT DUPLICATE REQUEST: Multiple request received for same medication. See other encounter dated 02/14/15. documented in this encounter Plan of Treatment Not on filedocumented as of this encounter Visit Diagnoses Not on filedocumented in this encounter Care Teams Cytogenetics Laboratory Manager Relationship Specialty Start Date End Date Judy Sorensen MD PCP - General 12/18/10 05/02/18 [address] [place] [address] documented as of this encounter
--- OUTSIDE RECORDS SUMMARY | 2022-05-04 09:20 | XMS_ITS | Encounter Summary ---
:1940 Author Organization [employer] Address [address] [place] [address] Care Team Providers Name Role Phone Judy Sorensen MD Primary Care Provider Reason for Visit Reason Comments Appt. Scheduled Encounter Details Date Type Department Care Team Description 12/30/[address] [facility] Gwen Sorensen MD Appt. Scheduled Medicine [address] [address] [place] [address] [place] [address] [phone] Social History Tobacco Use Types Packs/Day Years Used Date Smoking Tobacco: Never Assessed Sex Assigned at Date Recorded Not on file documented as of this encounter Plan of Treatment Not on filedocumented as of this encounter Visit Diagnoses Not on filedocumented in this encounter Care Teams Circular Head Saw Operator Relationship Specialty Start Date End Date Judy Sorensen MD PCP - General 12/18/10 05/02/18 [address] [place] [address] documented as of this encounter
--- OUTSIDE RECORDS SUMMARY | 2022-05-04 09:20 | XMS_ITS | Encounter Summary ---
:1940 Author Organization [facility] Address [address] [place] [address] Care Team Providers Name Role Phone Judy Sorensen MD Primary Care Provider Encounter Details Date Type Department Care Team Description 10/31/2012 Lab Visit [facility] Unspecified essential [id number] [place] [address] [place] [address] Social History Tobacco Use Types Packs/Day Years Used Date Smoking Tobacco: Never Assessed Sex Assigned at Date Recorded Not on file documented as of this encounter Plan of Treatment Not on filedocumented as of this encounter Procedures Procedure Name Priority Date/Time Associated Diagnosis Comme nts ELECTROLYTE PANEL Routine 10/31/2012 12:30 PM Unspecified esse ntial Results for this ALGEBRA TUTOR hypertension (HRC) procedure are in the results section. documented in this encounter Results Electrolyte Panel (10/31/2012 12:30 PM ALGEBRA TUTOR) P athologist Signature Sodium 139 137 - 147 HP CONVERSION mEq/L Potassium 4.1 3.5 - 5.2 HP CONVERSION mEq/L Chloride 104 98 - 110 HP CONVERSION mEq/L Bicarbonate 29 23 - 33 HP CONVERSION mmol/L Specimen Anatomical Collection Method Collection Time Receive d Time (Source) Location / / Volume Laterality 10/31/2012 12:30 10/31/2012 PM ALGEBRA TUTOR 12:30 PM ALGEBRA TUTOR Narrative HP CONVERSION - 10/31/2012 4:34 PM ALGEBRA TUTOR Performed at [facility], [address] [place] [address] Judy Sorensen MD LAB_1 Performing Organization Address City/State/[facility] Code Phon e Number HP CONVERSION documented in this encounter Visit Diagnoses Diagnosis Unspecified essential hypertension (HRC) Unspecified essential hypertension documented in this encounter Care Teams Editor Dictionary Relationship Specialty Start Date End Date Judy Sorensen MD PCP - General 12/18/10 05/02/18 [address] [place] [address] documented as of this encounter
--- OUTSIDE RECORDS SUMMARY | 2022-05-04 09:21 | XMS_ITS | Encounter Summary ---
:1940 Author Organization [facility] Address [address] [place] [address] Care Team Providers Name Role Phone Judy Sorensen MD Primary Care Provider Reason for Visit Reason Comments Refill Encounter Details Date Type Department Care Team Description 06/06/2011 Refill [facility] Judy Christensen MD Refill [address] [place] [address] [place], [place] [address] (Wo rk) Social History Tobacco Use Types [...] on filedocumented in this encounter Care Teams Service Captain Relationship Specialty Start Date End Date Judy Sorensen MD PCP - General 12/18/10 05/02/18 [address] [place] [address] documented as of this encounter
--- OUTSIDE RECORDS SUMMARY | 2022-05-04 09:21 | XMS_ITS | Encounter Summary ---
:1940 Author Organization [employer] Address [address] [place] [address] Care Team Providers Name Role Phone Judy Sorensen MD Primary Care Provider Encounter Details Date Type Department Care Team Description 05/25/2011 Lab Visit [facility] Other and unspecified hyperl ipidemia; [address] [employer] Unspecified essential hypert ension; [place] [address] Esophageal reflux [phone] Social History Tobacco Use Types Packs/Day Years [...] - 05/25/2011 12:58 [place] [address] Judy Sorensen MD LAB_1 Performing Organization Address [...] - 05/25/2011 12:58 [place] [address] Judy Sorensen MD LAB_1 Performing Organization Address City/[facility]/ZIP Code Phon e Number HP CONVERSION Lipid Panel and Direct LDL(If Needed) (05/25/2011 12:38 PM CDT) [facility] gist Method Time Signature Cholesterol 156 0 [...] - 05/25/2011 5:14 [place] [address] Judy Sorensen MD LAB_1 Performing Organization Address [facility] Phon e Number HP CONVERSION Electrolyte Panel [...] - 05/25/2011 5:14 PM CDT Performed at [facility], [address] [place] [address] Judy Sorensen MD LAB_1 Performing Organization Address City/[facility] Phon e Number HP CONVERSION Creatinine / [...] - 05/25/2011 5:14 PM CDT Performed at [facility], [address] [place] [address] Judy Sorensen MD LAB_1 Performing Organization Address [facility] Phon e Number HP CONVERSION ALT (SGPT) (05/25/2011 12:38 PM CDT) [facility] gist Method Time Signature Alanine 13 4 - 55 HP CONVERSION Aminotransferase U/L Specimen Anatomical Collection Method Collection Time Receive d Time (Source) Location / / Volume Laterality 05/25/2011 12:38 05/25/2011 PM CDT 12:37 PM CDT Narrative HP CONVERSION - 05/25/2011 5:14 PM CDT Performed at [facility], [address] [place] [address] Judy Sorensen MD LAB_1 Performing Organization Address [facility] Phon e Number HP CONVERSION VENIPUNCTURE (FAWN) (05/25/2011 12:29 PM CDT) athologist Signature Venipuncture Done HP CONVERSION Specimen (Source) Anatomical Collection Method Collection Time Re ceived Time Location / / Volume Laterality 05/25/2011 12:29 PM CDT Narrative HP CONVERSION - 05/25/2011 12:29 PM CDT Performed at [facility], [address] [place] [address] Judy Sorensen MD LAB_1 Performing Organization Address [facility] Phon e Number HP CONVERSION documented in this encounter Visit Diagnoses Diagnosis Other and unspecified hyperlipidemia (HR C) Other and unspecified hyperlipidemia Unspecified essential hypertension (HRC) Unspecified essential hypertension Esophageal reflux documented in this encounter Care Teams Afternoon Babysitter Relationship Specialty Start Date End Date Judy Sorensen MD PCP - General 12/18/10 05/02/18 [address] [place], [place] [address] documented as of this encounter
--- OUTSIDE RECORDS SUMMARY | 2022-05-04 09:21 | XMS_ITS | Encounter Summary ---
:1940 Author Organization [employer] Address [address] [place] [address] Care Team Providers Name Role Phone Judy Sorensen MD Primary Care Provider Encounter Details Date Type Department Care Team Description 09/26/2011 Notes/Orders Judy Ellis, Other scr eening Mammography mammogram [address] [place] [address] [place], [place] [phone] (Wo rk) Social History Tobacco Use Types Packs/Day Years Used Date Smoking Tobacco: Never Assessed Sex Assigned at Date Recorded Not on file documented as of this encounter Plan of Treatment Not on filedocumented as of this encounter Procedures Procedure Name Priority Date/Time Associated Diagnosis Comme nts MM MAMMOGRAM Routine 10/05/2011 9:07 AM Other screening Result s for this SCREENING BILAT W HEATING AND BLENDING SUPERVISOR mammogram procedure are in CAD the results section. documented in this encounter Results MM Mammogram Screening Bilat W CAD (10/05/2011 9:07 AM HEATING AND BLENDING SUPERVISOR) Anatomical Region Laterality Modality Breast Bilateral Mammography Specimen (Source) Anatomical Location Collection Method / Collectio n Time Received Time / Laterality Volume Impressions 10/06/2011 10:48 AM HEATING AND BLENDING SUPERVISOR IMPRESSION: BILATERAL BREASTS Negative, no evidence of malignancy. Nor mal interval follow-up is recommended in 12 months. OVERALL ASSESSMENT - CATEGORY 1 - NEGATI VE END OF IMPRESSION BJ Narrative 10/06/2011 10:48 AM HEATING AND BLENDING SUPERVISOR Comparison is made to films from 010 [...] OF IMPRESSION BJ Judy Sorensen MD RAD [facility] documented in this encounter Visit Diagnoses Diagnosis Other screening mammogram documented in this encounter Care Teams Tabulating Clerk Relationship Specialty Start Date End Date Judy Sorensen MD PCP - General 12/18/10 05/02/18 [address] [place] [address] documented as of this encounter
--- OUTSIDE RECORDS SUMMARY | 2022-05-04 09:21 | XMS_ITS | Encounter Summary ---
:1940 Author Organization [facility] Address [address] [place] [address] Care Team Providers Name Role Phone Judy Sorensen MD Primary Care Provider Encounter Details Date Type Department Care Team Description 10/05/2011 [place] [address] [place] [address] Social History Tobacco Use Types Packs/Day Years Used Date Smoking Tobacco: Never Assessed Sex Assigned at Date Recorded Not on file documented as of this encounter Plan of Treatment Not on filedocumented as of this encounter Visit Diagnoses Not on filedocumented in this encounter Care Teams Hardwood Flooring Specialist Relationship Specialty Start Date End Date Judy Sorensen MD PCP - General 12/18/10 05/02/18 [address] [place], [place] [address] documented as of this encounter
--- OUTSIDE RECORDS SUMMARY | 2022-05-04 09:21 | XMS_ITS | Encounter Summary ---
:1940 Author Organization [employer] Address [address] [address] Care Team Providers Name Role Phone Judy Sorensen MD Primary Care Provider Encounter Details Date Type Department Care Team Description 03/10/2010 Office Visit [facility] Gwen Sorensen MD [address] [address] [place] [address] [phone] Social History Tobacco Use Types Packs/Day Years [...] signed by Judy Larsen MD at 03/14/10 3043 Author: Judy Larsen MD Service: (none) Author Type: Physician Filed: 01/08/11 2319 Note Time: 03/10/10 0001 Status: Signed Brood Station Manager: Judy Larsen MD (Physician) PAP & Pelvic [...] adenopathy. Pelvic: Normal external genitalia and urethra. Holcomb, moist vaginal and cervical mucosa, without lesions. [...] on filedocumented in this encounter Care Teams Support Clerk Relationship Specialty Start Date End Date Judy Sorensen MD PCP - General 12/18/10 05/02/18 [address] [place] [address] documented as of this encounter
--- OUTSIDE RECORDS SUMMARY | 2022-05-04 09:21 | XMS_ITS | Encounter Summary ---
:1940 Author Organization [facility] Address [address] [place] [address] Care Team Providers Name Role Phone Judy Sorensen MD Primary Care Provider Reason for Visit Reason Comments Other Encounter Details Date Type Department Care Team Description 02/16/2010 Telephone [facility], Message Other [address] [place], [place] [address] Social History Tobacco Use Types Packs/Day Years Used Date Smoking Tobacco: Never Assessed Sex Assigned at Date Recorded Not on file documented as of this encounter [facility], Message - 02/16/2010 3:22 PM CDT Phone Note filed by reQ[employer] at 01/08/11912 Author: reQall Service: (none) Author Type: (none) Filed: 01/08/11912 Note Time: 02/16/101521 Status: Signed Wooden Frame Builder: reQall (Resource) PRESCRIPTION REFILL Please provide enough refills to last until patient's next visit. Comment:- Pharmacy Seq #:-[phone] Pharmacy Name-Phone/Fax:-[facility] Street or City:-[place] Clinician Name:-Suzie Drug Name/Strength:-Simvastatin 80mg tabs Sig: [...] 18Feb2010 8:50am VIRGILIO LUNDBERG wrote: informed pt NO PORTER documented in this encounter Plan of Treatment Not on filedocumented as of this encounter Visit Diagnoses Not on filedocumented in this encounter Care Teams Plant Propagator Relationship Specialty Start Date End Date Judy Sorensen MD PCP - General 12/18/10 05/02/18 [address] [place] [address] documented as of this encounter
--- OUTSIDE RECORDS SUMMARY | 2022-05-04 09:21 | XMS_ITS | Encounter Summary ---
:1940 Author Organization [facility] Address [address] [place] [address] Care Team Providers Name Role Phone Judy Sorensen MD Primary Care Provider Encounter Details Date Type Department Care Team Description 01/14/2011 PN Conversion Only [facility] Jordan Sorensen MD [facility] [address] [place] [address] [phone] (Wo rk) Social History Tobacco Use Types Packs/Day Years Used Date Smoking Tobacco: Never Assessed Sex Assigned at Date Recorded Not on file documented as of this encounter Plan of Treatment Not on filedocumented as of this encounter Visit Diagnoses Not on filedocumented in this encounter Care Teams Assistant To The Director Relationship Specialty Start Date End Date Judy Sorensen MD PCP - General 12/18/10 05/02/18 [facility] [place] [address] documented as of this encounter
--- OUTSIDE RECORDS SUMMARY | 2022-05-04 09:21 | XMS_ITS | Encounter Summary ---
:1940 Author Organization [employer] Address [address] [place] [address] Care Team Providers Name Role Phone Judy Sorensen MD Primary Care Provider Encounter Details Date Type Department Care Team Description 03/29/[address] [facility] [place] [address] [place] [address] Social History Tobacco Use Types [...] 2343 Note Time: 03/29/10 0001 Status: Signed Veterinary Practice Manager: Oniel Tamez MD (Physician) NAME: SHU OLIVA MR#: [id number] ACCT: [id number] VISIT: [id number] DICTATING CLINICIAN: ONIEL TAMEZ MD CONFIRM #: [id number] LOC: 471 CLINIC DEXA REPORT DATE OF [...] risk. RECOMMENDATIONS: 1. It is imperative for fci bone health to take adequate calcium and vitamin D. Recommend adding appropriate calcium and vitamin D supplements. 2. Stop smoking. 3. Osteoporosis guidelines may be found on Facets. 4. Suggest repeating a scan in 4-5 years. ESS:[id number] C: 03/31/10 08:06 CONFIRM #: [id number] documented in this encounter Plan of Treatment Not on filedocumented as of this encounter Visit Diagnoses Not on filedocumented in this encounter Care Teams Estate Planner Relationship Specialty Start Date End Date Judy Sorensen MD PCP - General 12/18/10 05/02/18 [address] [place] [address] documented as of this encounter
--- OUTSIDE RECORDS SUMMARY | 2022-05-04 09:21 | XMS_ITS | Encounter Summary ---
:1940 Author [address] [facility] Address [address] [place] [address] Care Team Providers Name Role Phone Judy Sorensen MD Primary Care Provider Encounter Details Date Type Department Care Team Description 05/07/2011 Notes/Orders [facility] Judy Sorensen, Othe r and unspecified hyperlipidemia; Medicine MD Unspecified essential hypertension; [address] [place] [address] [place], [place] [phone] (Wo rk) Social History Tobacco Use Types [...] reflux documented in this encounter Care Teams Manager Diesel Relationship Specialty Start Date End Date Judy Sorensen MD PCP - General 12/18/10 05/02/18 [address] [email or web address] [place], [place] [address] documented as of this encounter
--- OUTSIDE RECORDS SUMMARY | 2022-05-04 09:21 | XMS_ITS | Encounter Summary ---
:1940 Author Organization [employer] Address [address] [place] [address] Care Team Providers Name Role Phone Judy Sorensen MD Primary Care Provider Encounter Details Date Type Department Care Team Description 03/05/2010 PN Conversion Only [facility] CONVERSION Judy Sorensen MD [address] [place] [address] (Wo rk) Social History Tobacco [...] Direct LDL(If Needed) (03/05/2010 8:02 AM CDT) [facility] Method Time Signature Cholesterol 182 0 [...] Judy Sorensen MD LAB_1 Performing Organization Address [facility] Phon e Number HP CONVERSION [...] Judy Sorensen MD LAB_1 Performing Organization Address [facility] Phon e Number HP CONVERSION ALT (SGPT) (03/05/2010 8:02 AM CDT) [facility] gist Method Time Signature Alanine 17 4 - 55 HP CONVERSION Aminotransferase U/L Specimen (Source) Anatomical Collection Method Collection Time Re ceived Time Location / / Volume Laterality 03/05/2010 8:02 AM CDT Judy Sorensen MD LAB_1 Performing Organization Address [facility] Phon e Number HP CONVERSION (ABNORMAL) VITAMIN [...] Greater than 150 ng/m L Performed at [facility] [address] [place] [address] 8 Specimen (Source) Anatomical Collection Method Collection Time Re ceived Time Location / / Volume Laterality 03/05/2010 8:02 AM CDT Judy Sorensen MD LAB_1 Performing Organization Address City/State/ZIP Code Phon e Number HP CONVERSION documented in this encounter Visit Diagnoses Not on filedocumented in this encounter Care Teams Milling General Superintendent Relationship Specialty Start Date End Date Judy Sorensen MD PCP - General 12/18/10 05/02/18 [address] [place] [address] documented as of this encounter
--- OUTSIDE RECORDS SUMMARY | 2022-05-04 09:21 | XMS_ITS | Encounter Summary ---
:1940 Author Organization [employer] Address [address] [place] [address] Care Team Providers Name Role Phone Judy Sorensen MD Primary Care Provider Encounter Details Date Type Department Care Team Description 09/07/2010 PN Conversion Only [facility] [address] [place] [address] Social History Tobacco Use Types Packs/Day Years Used Date Smoking Tobacco: Never Assessed Sex Assigned at Date Recorded Not on file documented as of this encounter Plan of Treatment Not on filedocumented as of this encounter Procedures Procedure Name Priority Date/Time Associated Diagnosis Comme nts MM MAMMOGRAM Routine 09/07/2010 12:41 PM Results for this SCREENING BILAT W INKER MACHINE procedure are in CAD the results section. documented in this encounter Results MM Mammogram Screening Bilat W CAD (09/07/2010 12:41 PM INKER MACHINE) Anatomical Region Laterality Modality Breast Bilateral Mammography Specimen (Source) Anatomical Location Collection Method / Collectio n Time Received Time / Laterality Volume Narrative 09/09/2010 8:48 AM INKER MACHINE Comparison is made to films from 06/12/2009 [...] on filedocumented in this encounter Care Teams Laundromat Manager Relationship Specialty Start Date End Date Judy Sorensen MD PCP - General 12/18/10 05/02/18 [address] [place] [address] documented as of this encounter
--- OUTSIDE RECORDS SUMMARY | 2022-05-04 09:21 | XMS_ITS | Encounter Summary ---
:1940 Author Organization [employer] Address [address] [place] [address] Care Team Providers Name Role Phone Judy Sorensen MD Primary Care Provider Encounter Details Date Type Department Care Team Description 03/10/2010 PN Conversion Only [facility] CONVERSION Judy Sorensen MD [address] [place] [address] (Wo rk) Social History Tobacco [...] Comment: Final GYNECOLOGICAL CYTOLOGY REPORT Pathology #: [id number] ?Date Obta ined: 03/10/2010 ? Date Received: [...] on filedocumented in this encounter Care Teams Buhr Mill Operator Relationship Specialty Start Date End Date Judy Sorensen MD PCP - General 12/18/10 05/02/18 [address] [place] [address] documented as of this encounter
--- OUTSIDE RECORDS SUMMARY | 2022-05-04 09:21 | XMS_ITS | Encounter Summary ---
:1940 Author Organization [employer] Address [address] [place] [address] Care Team Providers Name Role Phone Judy Sorensen MD Primary Care Provider Reason for Visit Reason Comments Other Encounter Details Date Type Department Care Team Description 07/16/2009 Telephone [facility] [address] [place], [facility] Gastroenterology [address] [facility] [place] [address] Social History Tobacco Use Types Packs/Day Years Used Date Smoking Tobacco: Never Assessed Sex Assigned at Date Recorded Not on file documented as of this encounter [facility] [employer], Message - 07/16/2009 9:26 AM CDT Phone Note filed by MD [employer] at 01/07/11 4852 Author: MD [employer] Service: (none) Author Type: (none) Filed: 01/07/11 1679 Note Time: 07/16/09925 Status: Signed Furniture Dipper: MD [employer] (Resource) GI dept mailed letter reminding pt to schedule f/u colonoscopy due in Sep 2009. Created on 16Jul2009 9:26am by NI GRAF On 28Sep2009 11:44am COLLIN SINGLETNO wrote: pt called about letter sent had colonoscopy 2007 and letter from recommended 5yr f/u. Revised waitlist for 2012 [facility] documented in this encounter Plan of Treatment Not on filedocumented as of this encounter Visit Diagnoses Not on filedocumented in this encounter Care Teams Fraud Representative Relationship Specialty Start Date End Date Judy Sorensen MD PCP - General 12/18/10 05/02/18 [address] [place] [address] documented as of this encounter
--- OUTSIDE RECORDS SUMMARY | 2022-05-04 09:21 | XMS_ITS | Encounter Summary ---
:1940 Author Organization [employer] Address [address] [place] [address] Care Team Providers Name Role Phone Judy Sorensen MD Primary Care Provider Reason for Visit Reason Comments Refill Encounter Details Date Type Department Care Team Description 05/04/2011 Refill [facility] Judy Christensen MD Refill [address] [place] [address] [place], [place] [address] (Wo rk) Social History Tobacco Use Types [...] on filedocumented in this encounter Care Teams Transportation Mechanic Relationship Specialty Start Date End Date Judy Sorensen MD PCP - General 12/18/10 05/02/18 [address] [place] [address] documented as of this encounter
--- OUTSIDE RECORDS SUMMARY | 2022-05-04 09:21 | XMS_ITS | Encounter Summary ---
:1940 Author Organization [employer] Address [address] [address] Care Team Providers Name Role Phone Judy Sorensen MD Primary Care Provider Reason for Visit Reason Comments Annual Exam Encounter Details Date Type Department Care Team Description 05/25/2011 Office Visit [facility] Judy Sorensen, Uns ecified chronic ischemic heart disease (Primary Dx); Medicine Well woman exam; [address] Esophageal reflux; [place] [address] [place], [place] Unspecified essential hypert ension [phone] (Wo rk) Social History Tobacco Use Types [...] Ht 5' (152.4 cm) Wt 135 lb (48767 g) BMI 26.37 kg/m2 General appearance: alert, [...] bipass, possible recurrent claudication vs deconditioning. Hx [place] Hyperlipidemia Tobacco abuse Hypertension At risk for [...] exam Routine general medical examination at a [place] care facility Esophageal reflux Unspecified essential hypertension (HRC) Unspecified essential hypertension documented in this encounter Care Teams Ultrasonic Welding Machine Operator Relationship Specialty Start Date End Date Judy Sorensen MD PCP - General 12/18/10 05/02/18 [address] [place] [address] documented as of this encounter"
--- OUTSIDE RECORDS SUMMARY | 2022-05-04 09:21 | XMS_ITS | Encounter Summary ---
:1940 Author Organization [employer] Address [address] [place] [address] Care Team Providers Name Role Phone Judy Sorensen MD Primary Care Provider Encounter Details Date Type Department Care Team Description 05/27/2011 [facility] [address] [facility]. [place], [place] [address] Social History Tobacco Use Types Packs/Day Years [...] filedocumented in this encounter Care Teams Sales Broker Relationship Specialty Start Date End Date Judy Sorensen MD PCP - General 12/18/10 05/02/18 [address] [place] [address] documented as of this encounter
--- OUTSIDE RECORDS SUMMARY | 2022-05-04 09:22 | XMS_ITS | Encounter Summary ---
:1940 Author Organization [employer] Address [address] [place] [address] Care Team Providers Name Role Phone Judy Sorensen MD Primary Care Provider Reason for Visit Reason Comments Other Encounter Details Date Type Department Care Team Description 05/13/2008 Telephone [facility], Message Other [address] [place] [address] Social History Tobacco Use Types Packs/Day Years Used Date Smoking Tobacco: Never Assessed Sex Assigned at Date Recorded Not on file documented as of this encounter [facility], Message - 05/13/2008 9:04 AM CDT Phone Note filed by [employer] at 01/06/11428 Author: [employer] Service: (none) Author Type: (none) Filed: 01/06/11428 Note Time: 05/13/08903 Status: Signed Operations Dispatcher: [employer] Prescription Refill Please provide enough refills to last until patient's next visit. Comment:- Pharmacy Seq #:-[phone] Pharmacy Name:-[employer] or City:[facility] Clinician Name:-Suzie Drug Name/Strength:-Ranitidine 300mg tabs. Sig: Dose/Route/Freq:-Take 1 tab every night at bedtime. Quantity & Last Fill:-90 03/02/07 Created on 13May2008 9:04am by SOO MO J On 13May2008 12:44pm BURT WARREN wrote: Renewed medication per medication refill protocol. L ENGINEER documented in this encounter Plan of Treatment Not on filedocumented as of this encounter Visit Diagnoses Not on filedocumented in this encounter Care Teams Basketball Commentator Relationship Specialty Start Date End Date Judy Sorensen MD PCP - General 12/18/10 05/02/18 [address] [place] [address] documented as of this encounter
--- OUTSIDE RECORDS SUMMARY | 2022-05-04 09:22 | XMS_ITS | Encounter Summary ---
:1940 Author Organization [employer] Address [address] [place] [address] Care Team Providers Name Role Phone Judy Sorensen MD Primary Care Provider Reason for Visit Reason Comments Other Encounter Details Date Type Department Care Team Description 02/29/2008 Telephone [facility], Message Other [address] [place], [place] [address] Social History Tobacco Use Types Packs/Day Years Used Date Smoking Tobacco: Never Assessed Sex Assigned at Date Recorded Not on file documented as of this encounter [facility], Message - 02/29/2008 2:08 PM CDT Phone Note filed by [employer] at 01/05/11 2300 Author: [employer] Service: (none) Author Type: (none) Filed: 01/05/110 Note Time: 02/29/081407 Status: Signed Acquisition Editor: [employer] Prescription Refill Please provide enough refills to last until patient's next visit. Comment:-LV 02/20/08 Pharmacy Seq #:-[phone] Pharmacy Name:-[address] or City:[facility] Clinician Name:Jose GARCÍA Drug Name/Strength:-ATENOLOL 25MG TAB Sig: Dose/Route/Freq:-TAKE ONE TAB DAILY Quantity & Last Fill:-30 01/31/08 Created on 29Feb2008 2:08pm by OMAR SAUCEDA On 01Mar2008 7:52am YOGI PAGE wrote: Renewed medication per medication refill protocol. CE TECHNOLOGY PROFESSOR documented in this encounter Plan of Treatment Not on filedocumented as of this encounter Visit Diagnoses Not on filedocumented in this encounter Care Teams Facilities Management Executive Relationship Specialty Start Date End Date Judy Sorensen MD PCP - General 12/18/10 05/02/18 [address] [place] [address] documented as of this encounter
--- OUTSIDE RECORDS SUMMARY | 2022-05-04 09:22 | XMS_ITS | Encounter Summary ---
:1940 Author Organization [employer] Address [address] [place] [address] Care Team Providers Name Role Phone Judy Sorensen MD Primary Care Provider Reason for Visit Reason Comments Other Encounter Details Date Type Department Care Team Description 11/18/2008 Telephone [facility], Message Other [address] [place] [address] Social History Tobacco Use Types Packs/Day Years Used Date Smoking Tobacco: Never Assessed Sex Assigned at Date Recorded Not on file documented as of this encounter [facility], Message - 11/18/2008 11:26 AM CST Phone Note filed by [employer] at 01/06/111842 Author: [employer] Service: (none) Author Type: (none) Filed: 01/06/111842 Note Time: 11/18/081125 Status: Signed Typewriter Aligner: [employer] Prescription Refill Please provide enough refills to last until patient's next visit. Comment:- Pharmacy Seq #:-[phone] Pharmacy Name:-[employer] or City:[facility] Clinician Name:-Suzie Drug Name/Strength:-Simvastatin 80mg tabs. Sig: Dose/Route/Freq:-Take 1 tab daily in the evening. Quantity & Last Fill:-90 08/22/08 Created on 18Nov2008 11:26am by SOO MO J On 19Nov2008 4:31pm BURT WARREN wrote: Renewed medication per medication refill protocol. ING ROLL OPERATOR documented in this encounter Plan of Treatment Not on filedocumented as of this encounter Visit Diagnoses Not on filedocumented in this encounter Care Teams Occupational Analyst Relationship Specialty Start Date End Date Judy Sorensen MD PCP - General 12/18/10 05/02/18 [address] [place] [address] documented as of this encounter
--- OUTSIDE RECORDS SUMMARY | 2022-05-04 09:22 | XMS_ITS | Encounter Summary ---
:1940 Author Organization [employer] Address [address] [place] [address] Care Team Providers Name Role Phone Judy Sorensen MD Primary Care Provider Encounter Details Date Type Department Care Team Description 06/05/2009 Nursing Visit [facility] Jose Rosas MD [facility] [address] [facility] [address] [place] [address] [place] [address] [phone] Social History Tobacco Use Types Packs/Day Years Used Date Smoking Tobacco: Never Assessed Sex Assigned at Date Recorded Not on file documented as of this encounter Plan of Treatment Not on filedocumented as of this encounter Visit Diagnoses Not on filedocumented in this encounter Care Teams Ferry Terminal Supervisor Relationship Specialty Start Date End Date Judy Sorensen MD PCP - General 12/18/10 05/02/18 [address] [place] [address] documented as of this encounter
--- OUTSIDE RECORDS SUMMARY | 2022-05-04 09:22 | XMS_ITS | Encounter Summary ---
:1940 Author Organization [employer] Address [address] [place] [address] Care Team Providers Name Role Phone Judy Sorensen MD Primary Care Provider Encounter Details Date Type Department Care Team Description 04/04/2008 PN Conversion Only [facility] [address] [place] [address] Social History Tobacco Use Types Packs/Day Years [...] on filedocumented in this encounter Care Teams Employment Supervisor Relationship Specialty Start Date End Date Judy Sorensen MD PCP - General 12/18/10 05/02/18 [address] [place] [address] documented as of this encounter
--- OUTSIDE RECORDS SUMMARY | 2022-05-04 09:22 | XMS_ITS | Encounter Summary ---
:1940 Author Organization [employer] Address [address] [place] [address] Care Team Providers Name Role Phone Judy Sorensen MD Primary Care Provider Encounter Details Date Type Department Care Team Description 03/05/2009 Nursing Visit [facility] Jose Rosas MD [facility] [address] [facility] [address] [place] [address] [place] [address] [phone] Social History Tobacco Use Types Packs/Day Years Used Date Smoking Tobacco: Never Assessed Sex Assigned at Date Recorded Not on file documented as of this encounter Plan of Treatment Not on filedocumented as of this encounter Visit Diagnoses Not on filedocumented in this encounter Care Teams Linen Controller Relationship Specialty Start Date End Date Judy Sorensen MD PCP - General 12/18/10 05/02/18 [address] [place] [address] documented as of this encounter
--- OUTSIDE RECORDS SUMMARY | 2022-05-04 09:22 | XMS_ITS | Encounter Summary ---
:1940 Author Organization [employer] Address [address] [place] [address] Care Team Providers Name Role Phone Judy Sorensen MD Primary Care Provider Encounter Details Date Type Department Care Team Description 02/20/2009 PN Conversion Only [facility] [address] [place] [address] [place], [place] [address] (Wo rk) Social History Tobacco Use Types [...] Judy Sorensen MD LAB_1 Performing Organization Address [facility] Code Phon e Number HP CONVERSION AST (02/20/2009 3:01 PM CDT) [facility] Method Time Signature Aspartate 19 0 - 45 HP CONVERSION Aminotransferase U/L Specimen (Source) Anatomical Collection Method Collection Time Re ceived Time Location / / Volume Laterality 02/20/2009 3:01 PM CDT Judy Sorensen MD LAB_1 Performing Organization Address [facility] Code Phon e Number HP CONVERSION Creatinine / GFR (02/20/2009 3:01 PM CDT) athologist Signature Creatinine 0.8 0.4 - 1.3 HP CONVERSION Serum mg/dL Est GFR >60 >60 HP CONVERSION Am Comment: -Romanian and Wkw-Dyjrwyk-Cptgcug n reference range units: mL/min/1.73m2 Normal>60, moderate [...] Judy Sorensen MD LAB_1 Performing Organization Address City/[facility] Code Phon e Number HP CONVERSION (ABNORMAL) [...] Direct LDL(If Needed) (02/20/2009 3:01 PM CDT) [employer] gist Method Time Signature Length Of Fast [...] Judy Sorensen MD LAB_1 Performing Organization Address City/State/[facility] Code Phon e Number HP CONVERSION documented in this encounter Visit Diagnoses Not on filedocumented in this encounter Care Teams Senior Engineer Relationship Specialty Start Date End Date Judy Sorensen MD PCP - General 12/18/10 05/02/18 [address] [place] [address] documented as of this encounter
--- OUTSIDE RECORDS SUMMARY | 2022-05-04 09:22 | XMS_ITS | Encounter Summary ---
:1940 Author Organization [employer] Address [address] [place] [address] Care Team Providers Name Role Phone Judy Sorensen MD Primary Care Provider Reason for Visit Reason Comments Other Encounter Details Date Type Department Care Team Description 02/17/2009 Telephone [facility], Message Other [address] [place] [address] Social History Tobacco Use Types Packs/Day Years Used Date Smoking Tobacco: Never Assessed Sex Assigned at Date Recorded Not on file documented as of this encounter [facility], Message - 02/17/2009 8:40 AM CDT Phone Note filed by [employer] at 01/07/11339 Author: [employer] Service: (none) Author Type: (none) Filed: 01/07/11339 Note Time: 02/17/09839 Status: Signed Car Detailer: [employer] (Resource) Prescription Refill Please provide enough refills to last until patient's next visit. Comment:- Pharmacy Seq #:-[phone] Pharmacy Name:-[employer] or City:[facility] Clinician Name:-Suzie Drug Name/Strength:-Simvastatin 80mg tabs. Sig: Dose/Route/Freq:-Take 1 tab daily in the evening. Quantity & Last Fill:-90 11/19/08 Created on 17Feb2009 8:40am by SOO MO J On 17Feb2009 4:49pm BURT WARREN wrote: Renewed medication per medication refill protocol.Has 02/24 well exam. GER CORPORATE STRATEGY documented in this encounter Plan of Treatment Not on filedocumented as of this encounter Visit Diagnoses Not on filedocumented in this encounter Care Teams Senior Hr Business Partner Relationship Specialty Start Date End Date Judy Sorensen MD PCP - General 12/18/10 05/02/18 [address] [place] [address] documented as of this encounter
--- OUTSIDE RECORDS SUMMARY | 2022-05-04 09:22 | XMS_ITS | Encounter Summary ---
:1940 Author Organization [employer] Address [address] [place] [address] Care Team Providers Name Role Phone Judy Sorensen MD Primary Care Provider Encounter Details Date Type Department Care Team Description 06/12/2009 PN Conversion Only [facility] [address] [place] [address] Social History Tobacco Use Types Packs/Day Years [...] on filedocumented in this encounter Care Teams Sueding Machine Operator Relationship Specialty Start Date End Date Judy Sorensen MD PCP - General 12/18/10 05/02/18 [address] [place] [address] documented as of this encounter
--- OUTSIDE RECORDS SUMMARY | 2022-05-04 09:22 | XMS_ITS | Encounter Summary ---
:1940 Author Organization [employer] Address [address] [place] [address] Care Team Providers Name Role Phone Judy Sorensen MD Primary Care Provider Encounter Details Date Type Department Care Team Description 09/05/2008 Office Visit [facility] [place] [address] [place] [address] [place], [place] [address] (Wo rk) Social History Tobacco Use Types Packs/Day Years Used Date Smoking Tobacco: Never Assessed Sex Assigned at Date Recorded Not on file documented as of this encounter Last Filed Vital Signs Vital Sign Reading Time Taken Comments Blood Pressure 140/64 09/05/2008 1:49 PM SUPERVISOR DRILLING [employer] SHOOTING Pulse 72 09/05/2008 1:24 PM SUPERVISOR [employer]RILLING [employer] SHOOTING Temperature 36.6 ??C (97.9 ??F) 09/05/2008 1:24 PM ORAL C: 3 6.6 C SUPERVISOR DRILLING [employer] SHOOTING Respiratory Rate 18 09/05/2008 1:24 PM SUPERVISOR [employer]RILLING [employer] SHOOTING Oxygen Saturation 96% 09/05/2008 1:24 PM SUPERVISOR [employer]RILLING [employer] SHOOTING Inhaled Oxygen Concentration - - Weight - - Height - - Body Mass Index - - documented in this encounter Progress Notes Sameer Amin MD - 09/05/2008 12:01 AM CST Progress Notes signed by Sameer Amin MD at 09/09/08 1000 Author: Sameer Amin MD Service: (none) Author Type: Physician Filed: 01/08/11 0917 Note Time: 09/05/08 0001 Status: Signed Senior Analyst: Sameer Amin MD (Physician) NAME: SHU OLIVA MR#: [id number] ACCT: [id number] VISIT: [id number] DICTATING CLINICIAN: SAMEER AMIN MD CONFIRM #: [id number] LOC: 520 CLINIC PROGRESS NOTE DATE OF [...] if symptoms persist. SUBJECTIVE: OBJECTIVE: ASSESSMENT: PLAN: PRR:[id number] C: 09/08/08 04:57 CONFIRM #: [id number] [employer] documented in this encounter Plan of Treatment Not on filedocumented as of this encounter Visit Diagnoses Not on filedocumented in this encounter Care Teams Fitting Room Inspector Relationship Specialty Start Date End Date Judy Sorensen MD PCP - General 12/18/10 05/02/18 [address] [place] [address] documented as of this encounter
--- OUTSIDE RECORDS SUMMARY | 2022-05-04 09:22 | XMS_ITS | Encounter Summary ---
:1940 Author Organization [employer] Address [address] [place] [address] Care Team Providers Name Role Phone Judy Sorensen MD Primary Care Provider Reason for Visit Reason Comments Other Encounter Details Date Type Department Care Team Description 02/27/2008 Telephone [facility] Radha Hendricks RN Other [address] [place] [address] Social History Tobacco Use Types [...] Filed: 01/05/112250 Note Time: 02/27/082031 Status: Signed Operating Room Technician: Radha Hendricks RN (Registered Nurse) CLINICIAN FOLLOW-UP: [...] Created on 27Feb2008 8:32pm by RADHA HENDRICKS RVISOR COMPOSING ROOM documented in this encounter Plan of Treatment Not on filedocumented as of this encounter Visit Diagnoses Not on filedocumented in this encounter Care Teams Wreath Maker Relationship Specialty Start Date End Date Judy Sorensen MD PCP - General 12/18/10 05/02/18 [address] [place] [address] documented as of this encounter
--- OUTSIDE RECORDS SUMMARY | 2022-05-04 09:22 | XMS_ITS | Encounter Summary ---
:1940 Author Organization [employer] Address [address] [place] [address] Care Team Providers Name Role Phone Unassigned, Provider Primary Care Provider Unavailable Encounter Details Date Type Department Care Team Description 02/28/2008 Hospital Encounter [facility] [address] Julius Mcneil MD [address] [employer] [place], [place] [phone] [facility] Julius Andersen MD [address] [place], [place] [id number] [facility] [place] [address] Social History Tobacco Use Types [...] 0432 Note Time: 02/28/08 1015 Status: Signed Dance Hall Host/Hostess: Julius Andersen MD (Physician) Patient Name: Shu [...] and oxygen saturations were monitored continuously. The [id number] colonoscope was introduced through the anus and [...] in 5 years for surveillance. CPT4 Code(s): 37227, Colonoscopy, flexible, proximal to splenic flexure; with biopsy, single or multiple ICD9 Code(s): 211.3, Benign neoplasm of colon 562.10, Diverticulosis of colon (without mention of hemorrhage) 455.0, Internal hemorrhoids without mention of complication V76.51, Special screening for malignant neoplasms, colon The codes documented in this report are preliminary and upon veneer clipper review may be revised to meet current [...] Results Pathology Report (02/28/2008 11:31 AM CDT) [facility] Method Time Signature Surgical SEE TEXT No normal HP CONVERSION Pathology range Comment: Patient: SHU OLIVA ?S URGICAL PATHOLOGY REPORT Pathology # ??[id number] ?Date Obtained: ? Date Received: DIAGNOSIS: ?Large intestine, sigmoid colon, po lypectomy: ?- Hyperplastic polyp. ?Blayne Bishop M.D. ?(electronic signature) DAG/DAG/amf Date of Report: 02/29/08 Pathology # ??[id number] ?Date Obtained: ? Date Received: ORGAN/TISSUE SITE: [...] Julius Andersen MD LAB_1 Performing Organization Address City/[facility]/ZIP Code Phon e Number HP CONVERSION Endoscopy Obtained Anatomical Path (02/28/2008 11:12 AM CDT) P athologist Signature Endo Tis Done No normal HP CONVERSION range Specimen (Source) Anatomical Collection Method Collection Time Re ceived Time Location / / Volume Laterality 02/28/2008 11:12 AM CDT Julius Andersen MD LAB_1 Performing Organization Address [facility] Phon e Number HP CONVERSION documented in this encounter Visit Diagnoses Not on filedocumented in this encounter Care Teams Infirmary Attendant Relationship Specialty Start Date End Date Unassigned, Provider PCP - General 08/25/00 12/17/[address] [place] [address] documented as of this encounter
--- OUTSIDE RECORDS SUMMARY | 2022-05-04 09:22 | XMS_ITS | Encounter Summary ---
:1940 Author Organization [employer] Address [address] [place] [address] Care Team Providers Name Role Phone Judy Sorensen MD Primary Care Provider Reason for Visit Reason Comments Other Encounter Details Date Type Department Care Team Description 02/26/2009 Telephone [facility], Message Other [address] [place] [address] Social History Tobacco Use Types Packs/Day Years Used Date Smoking Tobacco: Never Assessed Sex Assigned at Date Recorded Not on file documented as of this encounter [facility], Message - 02/26/2009 2:13 PM CDT Phone Note filed by [employer] at 01/07/11 0174 Author: [employer] Service: (none) Author Type: (none) Filed: 01/07/11430 Note Time: 02/26/093 Status: Signed Christian Counselor: [employer] (Resource) Prescription Refill Please provide enough refills to last until patient's next visit. Comment:- Pharmacy Seq #:-[phone] Pharmacy Name:-[facility] [employer] [address] or City:[facility] Clinician Name:-Evon GARCÍA Drug Name/Strength:-ATENOLOL 25MG TAB Sig: Dose/Route/Freq:-TAKE ONE TAB DAILY Quantity & Last Fill:-30 11/18/08 Created on 26Feb2009 2:13pm by OMAR SAUCEDA On 26Feb2009 3:42pm BURT WARREN wrote: Renewed medication per medication refill protocol. GLUER documented in this encounter Plan of Treatment Not on filedocumented as of this encounter Visit Diagnoses Not on filedocumented in this encounter Care Teams Hand Drawer In Helper Relationship Specialty Start Date End Date Judy Sorensen MD PCP - General 12/18/10 05/02/18 [address] [place] [address] documented as of this encounter
--- OUTSIDE RECORDS SUMMARY | 2022-05-04 09:22 | XMS_ITS | Encounter Summary ---
:1940 Author Organization [employer] Address [address] [place] [address] Care Team Providers Name Role Phone Judy Sorensen MD Primary Care Provider Reason for Visit Reason Comments Other Encounter Details Date Type Department Care Team Description 12/31/[address] [facility], Message Other [address] [place] [address] Social History Tobacco Use Types Packs/Day Years Used Date Smoking Tobacco: Never Assessed Sex Assigned at Date Recorded Not on file documented as of this encounter [facility], Message - 12/31/2008 1:16 PM CDT Phone Note filed by [employer] at 01/07/11 0002 Author: [employer] Service: (none) Author Type: (none) Filed: 01/07/11 0002 Note Time: 12/31/08 1316 Status: Signed Tool Engine Lathe Set Up Operator: [employer] (Resource) Prescription Refill Please provide enough refills to last until patient's next visit. Comment:- Pharmacy Seq #:-[phone] Pharmacy Name:-[facility] [address] or City:[facility] Clinician Name:-Evon GARCÍA Drug Name/Strength:-RANITIDINE 300MG TAB Sig: Dose/Route/Freq:-TAKE ONE TAB DAIY AT BEDTIME Quantity & Last Fill:-30 12/02/08 Created on 31Dec2008 1:16pm by OMAR SAUCEDA On 01Jan2009 10:58am BURT WARREN wrote: Renewed medication per medication refill protocol. ULAR SURGEON documented in this encounter Plan of Treatment Not on filedocumented as of this encounter Visit Diagnoses Not on filedocumented in this encounter Care Teams Compliance Paralegal Relationship Specialty Start Date End Date Judy Sorensen MD PCP - General 12/18/10 05/02/18 [address] [place] [address] documented as of this encounter
--- OUTSIDE RECORDS SUMMARY | 2022-05-04 09:22 | XMS_ITS | Encounter Summary ---
:1940 Author [facility] Address [address], [place] [address] Care Team Providers Name Role Phone Judy Sorensen MD Primary Care Provider Encounter Details Date Type Department Care Team Description 03/11/2008 Notes/Orders [facility] icine Conversion, User [address] [place] [address] [place], [place] [phone] [address] Social History Tobacco Use Types Packs/Day Years [...] on filedocumented in this encounter Care Teams Proposal Analyst Relationship Specialty Start Date End Date Judy Sorensen MD PCP - General 12/18/10 05/02/18 [address] [place] [address] documented as of this encounter
--- OUTSIDE RECORDS SUMMARY | 2022-05-04 09:22 | XMS_ITS | Encounter Summary ---
:1940 Author Organization [employer] [facility] Address [address] [place] [address] Care Team Providers Name Role Phone Judy Sorensen MD Primary Care Provider Reason for Visit Reason Comments Other Encounter Details Date Type Department Care Team Description 02/21/2008 Telephone [facility] Elisabeth Ortiz Other [address] [place] [address] Social History Tobacco Use Types Packs/Day Years Used Date Smoking Tobacco: Never Assessed Sex Assigned at Date Recorded Not on file documented as of this encounter Progress Notes Elisabeth Ortiz - 02/21/2008 11:12 AM CDT Phone Note filed by Elisabeth Ortiz RN at 01/05/112223 Author: Elisabeth Ortiz RN Service: (none) Author Type: Registered Nurse Filed: 01/05/112223 Note Time: 02/21/081111 Status: Signed Electrician Yard: Elisabeth Ortiz RN (Registered Nurse) PPA completed and instructions reviewed for colonoscopy. pt. verbalized understanding. crew car driver policy reviewed. Created on 21Feb2008 11:12am by ELISABETH ORTIZ TER TENDER documented in this encounter Plan of Treatment Not on filedocumented as of this encounter Visit Diagnoses Not on filedocumented in this encounter Care Teams Chief Green Officer Relationship Specialty Start Date End Date Judy Sorensen MD PCP - General 12/18/10 05/02/18 [address] [place] [address] documented as of this encounter
--- OUTSIDE RECORDS SUMMARY | 2022-05-04 09:22 | XMS_ITS | Encounter Summary ---
:1940 Author Organization [employer] Address [address] [place] [address] Care Team Providers Name Role Phone Judy Sorensen MD Primary Care Provider Encounter Details Date Type Department Care Team Description 03/06/2009 Office Visit [facility] Mukesh Kiran [address] [place] [address] Social History Tobacco Use Types Packs/Day Years Used Date Smoking Tobacco: Never Assessed Sex Assigned at Date Recorded Not on file documented as of this encounter Plan of Treatment Not on filedocumented as of this encounter Visit Diagnoses Not on filedocumented in this encounter Care Teams Jig Box Operator Relationship Specialty Start Date End Date Judy Sorensen MD PCP - General 12/18/10 05/02/18 [address] [place], [place] [address] documented as of this encounter
--- OUTSIDE RECORDS SUMMARY | 2022-05-04 09:23 | XMS_ITS | Encounter Summary ---
:1940 Author Organization [employer] Address [address] [place] [address] Care Team Providers Name Role Phone Judy Sorensen MD Primary Care Provider Reason for Visit Reason Comments Other Encounter Details Date Type Department Care Team Description 01/02/2007 Telephone [facility], Message Other [address] [place], [place] [address] Social History Tobacco Use Types Packs/Day Years Used Date Smoking Tobacco: Never Assessed Sex Assigned at Date Recorded Not on file documented as of this encounter [facility], Message - 01/02/2007 9:36 AM CDT Phone Note filed by [employer] at 01/04/111919 Author: [employer] Service: (none) Author Type: (none) Filed: 01/04/111919 Note Time: 01/02/07935 Status: Signed Ppap Coordinator: [employer] PRESCRIPTION REFILL Request #1: Please provide enough refills to last until patient's next visit. Comment:- Pharmacy Seq #:-[phone] Pharmacy Name:-[facility] City:[facility] Clinician Name:-Suzie Drug Name/Strength:-Ranitidine 300mg tabs. Sig: [...] make well appointment for 01/19 at 9:45. GER CARDIAC documented in this encounter Plan of Treatment Not on filedocumented as of this encounter Visit Diagnoses Not on filedocumented in this encounter Care Teams Convalescent Sitter Relationship Specialty Start Date End Date Judy Sorensen MD PCP - General 12/18/10 05/02/18 [address] [place] [address] documented as of this encounter
--- OUTSIDE RECORDS SUMMARY | 2022-05-04 09:23 | XMS_ITS | Encounter Summary ---
:1940 Author Organization [employer] Address [address], [place] [address] Care Team Providers Name Role Phone Judy Sorensen MD Primary Care Provider Encounter Details Date Type Department Care Team Description 01/19/2007 Office Visit [facility] Gwen Sorensen MD [address] [address] [place] [address] [phone] Social History Tobacco Use Types Packs/Day Years [...] signed by Judy Larsen MD at 01/30/07 3392 Author: Judy Larsen MD Service: (none) Author Type: Physician Filed: 01/07/11 1844 Note Time: 01/19/072017 Status: Signed Supervisor Braiding: Judy Larsen MD (Physician) NAME: SHU OLIVA MR#: [id number] ACCT: [id number] VISIT: [id number] DICTATING CLINICIAN: JUDY LARSEN MD JOB: [id number] LOC: 502 CLINIC PHYSICAL DATE OF VISIT: [...] is congratulated on her efforts to date. [facility]:[id number] C: 01/22/07 13:31 DOCUMENT: [id number] documented in this encounter Plan of Treatment Not on filedocumented as of this encounter Visit Diagnoses Not on filedocumented in this encounter Care Teams Interstate Bus Driver Relationship Specialty Start Date End Date Judy Sorensen MD PCP - General 12/18/10 05/02/18 [address] [place] [address] documented as of this encounter
--- OUTSIDE RECORDS SUMMARY | 2022-05-04 09:23 | XMS_ITS | Encounter Summary ---
:1940 Author Organization [email or web address] Address [address] [place] [address] Care Team Providers Name Role Phone Judy Sorensen MD Primary Care Provider Encounter Details Date Type Department Care Team Description 11/14/2006 [facility] Carlee Feldman [facility] [address] [place] [address] [place] [address] [phone] Social History Tobacco Use Types Packs/Day Years Used Date Smoking Tobacco: Never Assessed Sex Assigned at Date Recorded Not on file documented as of this encounter Last Filed Vital Signs Vital Sign Reading Time Taken Comments Blood Pressure 130/64 11/14/2006 11:15 AM WHARF TALLY CLERK Pulse - - Temperature - - Respiratory Rate - - Oxygen Saturation - - Inhaled Oxygen Concentration - - Weight - - Height - - Body Mass Index - - documented in this encounter Progress Notes Carlee rGacia MD - 11/14/2006 12:01 AM CST Progress Notes signed by Carlee Gracia MD at 11/17/06 1150 Author: Carlee Gracia MD Service: (none) Author Type: Physician Filed: 01/07/11 1719 Note Time: 11/14/06 0001 Status: Signed Ground Services Instructor: Carlee Gracia MD (Physician) NAME: SHU OLIVA MR#: [id number] ACCT: [id number] VISIT: [id number] DICTATING CLINICIAN: CARLEE GRACIA MD JOB: [id number] LOC: 3588 CLINIC PROGRESS NOTE DATE OF [...] in 4-6 weeks, she should come back. JMM:[id number] C: 11/14/06 12:33 DOCUMENT: [id number] F TALLY CLERK documented in this encounter Plan of Treatment Not on filedocumented as of this encounter Visit Diagnoses Not on filedocumented in this encounter Care Teams Idea Man Relationship Specialty Start Date End Date Judy Sorensen MD PCP - General 12/18/10 05/02/18 [address] [place] [address] documented as of this encounter
--- OUTSIDE RECORDS SUMMARY | 2022-05-04 09:23 | XMS_ITS | Encounter Summary ---
:1940 Author Organization [employer] Address [address] [place] [address] Care Team Providers Name Role Phone Judy Sorensen MD Primary Care Provider Encounter Details Date Type Department Care Team Description 07/28/2006 PN Conversion [place] [address] [place] [address] Social History Tobacco Use Types Packs/Day Years Used Date Smoking Tobacco: Never Assessed Sex Assigned at Date Recorded Not on file documented as of this encounter Plan of Treatment Not on filedocumented as of this encounter Procedures Procedure Name Priority Date/Time Associated Diagnosis Comme nts ECG 12 LEAD CLINIC Routine 07/28/2006 8:27 AM Res ults for this MILLINERY COPYIST procedure are i n the results section. documented in this encounter Results ECG 12 lead clinic (07/28/2006 8:27 AM MILLINERY COPYIST) Specimen (Source) Anatomical Collection Method Collection Time Re ceived Time Location / / Volume Laterality 07/28/2006 8:27 AM MILLINERY COPYIST Narrative HP CONVERSION - 07/28/2006 8:27 AM MILLINERY COPYIST Sinus bradycardia Otherwise normal ECG When compared with ECG of 01-JAN-1999 0 7:47, No significant change was found Imr Conversion PN ECG ORDERABLES Performing Organization Address City/State/ZIP Code Phon e Number HP CONVERSION documented in this encounter Visit Diagnoses Not on filedocumented in this encounter Care Teams Flash Welder Relationship Specialty Start Date End Date Judy Sorensen MD PCP - General 12/18/10 05/02/18 [address] [place], [place] [address] documented as of this encounter
--- OUTSIDE RECORDS SUMMARY | 2022-05-04 09:23 | XMS_ITS | Encounter Summary ---
:1940 Author Organization [employer] Address [address] [address] Care Team Providers Name Role Phone Judy Sorensen MD Primary Care Provider Encounter Details Date Type Department Care Team Description 07/13/2007 PN Conversion Only [facility] [address] [place] [address] [place], [place] [address] (Wo rk) Social History Tobacco Use Types [...] Complete Blood Count-W/Diff (07/13/2007 8:27 AM CDT) [facility] Method Time Signature White Blood Cell [...] - HP CONVERSION Hemoglobin Conc 36.5 gm/dL [place] RDW 13.0 11.0 - HP CONVERSION 15.0 [...] on filedocumented in this encounter Care Teams Railway Yard Assistant Relationship Specialty Start Date End Date Judy Sorensen MD PCP - General 12/18/10 05/02/18 [address] [place] [address] documented as of this encounter
--- OUTSIDE RECORDS SUMMARY | 2022-05-04 09:23 | XMS_ITS | Encounter Summary ---
:1940 Author Organization [employer] Address [address] [place] [address] Care Team Providers Name Role Phone Judy Sorensen MD Primary Care Provider Reason for Visit Reason Comments Other Encounter Details Date Type Department Care Team Description 10/16/2007 Telephone [facility], Message Other [address] [place], [place] [address] Social History Tobacco Use Types Packs/Day Years Used Date Smoking Tobacco: Never Assessed Sex Assigned at Date Recorded Not on file documented as of this encounter [facility], Message - 10/16/2007 9:55 AM CST Phone Note filed by Morgan Everett at 01/05/11 2014 Author: Morgan Everett Service: (none) Author Type: (none) Filed: 01/05/11 6587 Note Time: 10/16/07954 Status: Signed Periodontal Assistant: Message Red Stamp Medication Issue/Refill Caller Name/Relationship:pt Primary Brim And Crown Presser:Suzie Comment/Symptom:Patient's insurance does not cover Lipitor. She prefers to take a generic of Lipitor if Dr Larsen feels they're compatible. Pharmacy Name & Phone #:[facility] Street or City: Drug Name:New insurance covers Simvastitin and Pravastatine Strength:Lipitor script is for 60mg Dose/Route/Freq:1 tab daily Inventory Control Associate:Please notify Best call back number:[phone] Is it OK to leave a confidential [...] her Acknowledged by KALI ONEAL on 12:12pm TE PLANNING PARALEGAL documented in this encounter Plan of Treatment Not on filedocumented as of this encounter Visit Diagnoses Not on filedocumented in this encounter Care Teams Weld Inspector Relationship Specialty Start Date End Date Judy Sorensen MD PCP - General 12/18/10 05/02/18 [address] [place] [address] documented as of this encounter
--- OUTSIDE RECORDS SUMMARY | 2022-05-04 09:23 | XMS_ITS | Encounter Summary ---
:1940 Author Organization [employer] Address [address] [place] [address] Care Team Providers Name Role Phone Judy Sorensen MD Primary Care Provider Encounter Details Date Type Department Care Team Description 02/08/2008 Office Visit [facility] Mukesh Kiran [address] [place], [place] [id number] Social History Tobacco Use Types Packs/Day Years Used Date Smoking Tobacco: Never Assessed Sex Assigned at Date Recorded Not on file documented as of this encounter Plan of Treatment Not on filedocumented as of this encounter Visit Diagnoses Not on filedocumented in this encounter Care Teams Buckle Coverer Relationship Specialty Start Date End Date Judy Sorensen MD PCP - General 12/18/10 05/02/18 [address] [place], [place] [address] documented as of this encounter
--- OUTSIDE RECORDS SUMMARY | 2022-05-04 09:23 | XMS_ITS | Encounter Summary ---
:1940 Author Organization [employer] Address [address] [place] [address] Care Team Providers Name Role Phone Judy Sorensen MD Primary Care Provider Encounter Details Date Type Department Care Team Description 02/09/2007 Office Visit [facility] [place] [address] [facility] [address] [place] [address] [place], [place] [address] Social History Tobacco Use Types Packs/Day Years [...] 01/07/110 Note Time: 02/09/07 0001 Status: Signed Barge Captain: Wilmer Murphy MD (Physician) NAME: SHU OLIVA MR#: [id number] ACCT: [id number] VISIT: [id number] DICTATING CLINICIAN: WILMER MURPHY MD JOB: [id number] LOC: 520 CLINIC PROGRESS NOTE DATE OF [...] DIAGNOSIS: Right upper chest wall pain. Contusion. STR:[id number] C: 02/10/07 09:31 DOCUMENT: [id number] documented in this encounter Plan of Treatment [...] in approximately 3-4 weeks. ??No obvious ac ramona rib fracture seen. [facility]/ [address] Dictating ALLEN GONZALES MD Procedure Note Allen [...] No obvious acut e rib fracture seen. [facility]/ [address] Dictating ALLEN GONZALES MD Wilmer Murphy MD RAD GD documented in this encounter Visit Diagnoses Not on filedocumented in this encounter Care Teams Bread Stacker Relationship Specialty Start Date End Date Judy Sorensen MD PCP - General 12/18/10 05/02/18 [address] [place] [address] documented as of this encounter
--- OUTSIDE RECORDS SUMMARY | 2022-05-04 09:23 | XMS_ITS | Encounter Summary ---
:1940 Author Organization [facility] Address [address] [place] [address] Care Team Providers Name Role Phone Judy Sorensen MD Primary Care Provider Encounter Details Date Type Department Care Team Description 09/27/2006 PN Conversion Only OTHER CONVERSION [address] [place] [address] Social History Tobacco Use Types Packs/Day Years Used Date Smoking Tobacco: Never Assessed Sex Assigned at Date Recorded Not on file documented as of this encounter Plan of Treatment Not on filedocumented as of this encounter Visit Diagnoses Not on filedocumented in this encounter Care Teams Horse Identifier Relationship Specialty Start Date End Date Judy Sorensen MD PCP - General 12/18/10 05/02/18 [address] [place], [place] [address] documented as of this encounter
--- OUTSIDE RECORDS SUMMARY | 2022-05-04 09:23 | XMS_ITS | Encounter Summary ---
:1940 Author Organization [employer] Address [address] [place] [address] Care Team Providers Name Role Phone Judy Sorensen MD Primary Care Provider Encounter Details Date Type Department Care Team Description 07/28/2006 PN Conversion Only [place] [facility] Jeremy Mckinley, [address] [place] [address] [address] [place] [address] (Wo rk) Social History Tobacco Use Types Packs/Day Years Used Date Smoking Tobacco: Never Assessed Sex Assigned at Date Recorded Not on file documented as of this encounter Plan of Treatment Not on filedocumented as of this encounter Procedures Procedure Name Priority Date/Time Associated Comments Diagnosis ELECTROLYTES (NA, K, Routine 07/28/2006 8:19 AM R esults for this CL, BICARB) REFINERY OPERATOR GAS PLANT procedure are i n the results section. CREATININE / GFR Routine 07/28/2006 8:19 AM Resul ts for this REFINERY OPERATOR GAS PLANT procedure are i n the results section. COMPLETE BLOOD Routine 07/28/2006 8:19 AM Results for this COUNT-W/DIFF REFINERY OPERATOR GAS PLANT procedure are i n the results section. APTT (ACTIVATED PARTIAL Routine 07/28/2006 8:19 AM Results for this THROMBOPLASTIN TIME REFINERY OPERATOR GAS PLANT procedur e are in the results section. BUN Routine 07/28/2006 8:19 AM Results f or this REFINERY OPERATOR GAS PLANT procedure are i n the results section. documented in this encounter Results (ABNORMAL) Complete Blood Count-W/Diff (07/28/2006 8:19 AM REFINERY OPERATOR GAS PLANT) Patholo gist Method Time Signature White Blood [...] - HP CONVERSION Hemoglobin Conc 36.5 gm/dL [place] RDW 13.2 11.0 - HP CONVERSION 15.0 [...] / / Volume Laterality 07/28/2006 8:19 AM REFINERY OPERATOR GAS PLANT Jeremy Mckinley MD LAB_1 Performing Organization Address City/State/ZIP Code Phon e Number HP CONVERSION APTT (Activated Partial Thromboplastin Time) (07/28/2006 8:19 AM REFINERY OPERATOR GAS PLANT) [facility] Method Time Signature Partial 26.1 25.0 - HP CONVERSION Thromboplastin Time 38.0 sec Comment: New aPTT reagent in use effective 10/21/05 . See Last Word for current heparin dosage adjustments (new therapeutic rang e for full unfractionated heparin anticoagulation 65 ??to 95 seconds). Specimen (Source) Anatomical Collection Method Collection Time Re ceived Time Location / / Volume Laterality 07/28/2006 8:19 AM REFINERY OPERATOR GAS PLANT Jeremy Mckinley MD LAB_1 Performing Organization Address City/State/ZIP Code Phon e Number HP CONVERSION BUN (07/28/2006 8:19 AM REFINERY OPERATOR GAS PLANT) athologist Signature Blood Urea 15 5 - 26 HP CONVERSION Nitrogen mg/dL Specimen (Source) Anatomical Collection Method Collection Time Re ceived Time Location / / Volume Laterality 07/28/2006 8:19 AM REFINERY OPERATOR GAS PLANT Jeremy Mckinley MD LAB_1 Performing Organization Address City/State/ZIP Code Phon e Number HP CONVERSION Creatinine / GFR (07/28/2006 8:19 AM REFINERY OPERATOR GAS PLANT) athologist Signature Creatinine 0.7 0.5 - 1.5 HP CONVERSION Serum mg/dL Specimen (Source) Anatomical Collection Method Collection Time Re ceived Time Location / / Volume Laterality 07/28/2006 8:19 AM REFINERY OPERATOR GAS PLANT Jeremy Mckinley MD LAB_1 Performing Organization Address City/State/ZIP Code Phon e Number HP CONVERSION Electrolytes (NA, K, CL, Bicarb) (07/28/2006 8:19 AM REFINERY OPERATOR GAS PLANT) athologist Signature Sodium 140 137 - 147 HP CONVERSION meq/L Potassium 4.3 3.5 - 5.2 HP CONVERSION meq/L Chloride 102 98 - 110 HP CONVERSION meq/L Bicarbonate 30 23 - 33 HP CONVERSION mmol/L Specimen (Source) Anatomical Collection Method Collection Time Re ceived Time Location / / Volume Laterality 07/28/2006 8:19 AM REFINERY OPERATOR GAS PLANT Jeremy Mckinley MD LAB_1 Performing Organization Address City/[facility] Phon e Number HP CONVERSION documented in this encounter Visit Diagnoses Not on filedocumented in this encounter Care Teams Tool Salvage Worker Relationship Specialty Start Date End Date Judy Sorensen MD PCP - General 12/18/10 05/02/18 [address] [place] [address] documented as of this encounter
--- OUTSIDE RECORDS SUMMARY | 2022-05-04 09:23 | XMS_ITS | Encounter Summary ---
:1940 Author Organization [employer] Address [address] [address] Care Team Providers Name Role Phone Judy Sorensen MD Primary Care Provider Encounter Details Date Type Department Care Team Description 02/20/2008 Office Visit [facility] Gwen Sorensen MD [address] [address] [place] [address] [phone] Social History Tobacco Use Types Packs/Day Years [...] signed by Judy Larsen MD at 02/20/08 3937 Author: Judy Larsen MD Service: (none) Author Type: Physician Filed: 01/08/11 0420 Note Time: 02/20/08 0001 Status: Signed Estate Planner: Judy Larsen MD (Physician) Preventive Exam & [...] adenopathy. Pelvic: Normal external genitalia and urethra. [place], moist vaginal and cervical mucosa, without lesions. [...] on filedocumented in this encounter Care Teams Applications Specialist Relationship Specialty Start Date End Date Judy Sorensen MD PCP - General 12/18/10 05/02/18 [address] [place] [address] documented as of this encounter
--- OUTSIDE RECORDS SUMMARY | 2022-05-04 09:23 | XMS_ITS | Encounter Summary ---
:1940 Author Organization [employer] Address [address] [place] [address] Care Team Providers Name Role Phone Judy Sorensen MD Primary Care Provider Encounter Details Date Type Department Care Team Description 10/12/2006 Office [facility] Carlee Feldman MD [facility] [address] [place] [address] [place] [address] [phone] Social History Tobacco Use Types Packs/Day Years Used Date Smoking Tobacco: Never Assessed Sex Assigned at Date Recorded Not on file documented as of this encounter Last Filed Vital Signs Vital Sign Reading Time Taken Comments Blood Pressure 130/66 10/12/2006 10:54 AM MEDICAL SALES CONSULTANT Pulse - - Temperature - - Respiratory [...] 1636 Note Time: 10/12/06 0001 Status: Signed Director Search: Carlee Gracia MD (Physician) NAME: SHU OLIVA MR#: [id number] ACCT: [id number] VISIT: [id number] DICTATING CLINICIAN: CARLEE GRACIA MD JOB: [id number] LOC: 3588 CLINIC PROGRESS NOTE DATE OF [...] her last time or since her surgery. JMM:[id number] C: 10/13/06 06:41 DOCUMENT: [id number] CAL SALES CONSULTANT documented in this encounter Plan of Treatment Not on filedocumented as of this encounter Visit Diagnoses Not on filedocumented in this encounter Care Teams Marketing Finance Manager Relationship Specialty Start Date End Date Judy Sorensen MD PCP - General 12/18/10 05/02/18 [address] [place] [address] documented as of this encounter
--- OUTSIDE RECORDS SUMMARY | 2022-05-04 09:23 | XMS_ITS | Encounter Summary ---
:1940 Author Organization [employer] Address [address] [place] [address] Care Team Providers Name Role Phone Unassigned, Provider Primary Care Provider Unavailable Encounter Details Date Type Department Care Team Description 07/31/2006 Hospital Encounter [facility] Evon Mckinley MD [address] [place] [address] Center Procedural Ar ea Jeremy Mckinley MD [address] [place], [place] [id number] [address] [facility] [place] [address] Social History Tobacco Use Types [...] CONTR ABD ARTERIOGRM NEC KEVIN HURTADO R [id number] 88.47 Provider2: Provider3: Secondary: CONTRAST ARTERIOGRAM-LEG KEVIN HURTADO R [id number] 88.48 Provider2: Provider3: P CUTTING MACHINE OPERATOR documented in this encounter Plan of Treatment Not on filedocumented as of this encounter Procedures Procedure Name Priority Date/Time Associated Diagnosis Comme nts IR ANGIOGRAM Routine 07/31/2006 12:31 PM Results for this EXTREMITY BILATERAL STRAP CUTTING MACHINE OPERATOR procedur e are in the results section. 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 ??There are hemodynamically signi ficant gradients across both iliac systems at rest. 622600/pb Dictating KEVIN VALVERDE Radiologist Narrative 07/31/2006 12:31 PM STRAP CUTTING MACHINE OPERATOR EXAM: ? 1. ?? Abdominal ?aortic [...] and a 0.035 wire was advanced. A 4-Bermudian sheath was placed. ??Bentson wire would not easily advance and the right iliac stenosis was crossed utilizing an angled Glidewire with a 4-Bermudian Kumpe catheter . ??Measuring Omni flush catheter [...] obtained. Patient was then [facility] the [facility] was pulled and hemostasis [...] and a 0.035 wire was advanced. A 4-Bermudian sheath was placed. 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 Measuring Omni flush catheter [...] obtained. Patient was then discharged to the [facility] where the sheath was pulled and hemostasis [...] gradients across both iliac systems at rest. 663383/pb Dictating KEVIN VALVERDE Radiologist Jeremy Mckinley MD RAD IR documented in this encounter Visit Diagnoses Not on filedocumented in this encounter Care Teams Customs Consultant Relationship Specialty Start Date End Date Unassigned, Provider PCP - General 08/25/00 12/17/[address] [place] [address] documented as of this encounter
--- OUTSIDE RECORDS SUMMARY | 2022-05-04 09:23 | XMS_ITS | Encounter Summary ---
:1940 Author Organization [facility] Address [address] [place] [address] Care Team Providers Name Role Phone Judy Sorensen MD Primary Care Provider Encounter Details Date Type Department Care Team Description 01/19/2007 PN Conversion Only [place] [address] [place] [address] [place], [place] [address] (Wo rk) Social History Tobacco Use Types [...] Results ALT (SGPT) (01/19/2007 10:56 AM CDT) [facility] Method Time Signature Alanine 50 4 - 55 HP CONVERSION Aminotransferase U/L Specimen (Source) Anatomical Collection Method Collection Time Re ceived Time Location / / Volume Laterality 01/19/2007 10:56 AM CDT Judy Sorensen MD LAB_1 Performing Organization Address City/State/ZIP Code Phon e Number HP CONVERSION AST (01/19/2007 10:56 AM CDT) [facility] Method Time Signature Aspartate 35 0 - 45 HP CONVERSION Aminotransferase U/L Specimen (Source) Anatomical Collection Method Collection Time Re ceived Time Location / / Volume Laterality 01/19/2007 10:56 AM CDT Judy Sorensen MD LAB_1 Performing Organization Address City/[facility]/ZIP Code Phon e Number HP CONVERSION (ABNORMAL) Lipid Panel and Direct LDL(If Needed) (01/19/2007 10:56 AM CDT) [facility] Method Time Signature Length Of Fast 12.0 [...] Judy Sorensen MD LAB_1 Performing Organization Address [facility] Phon e Number HP CONVERSION Thyroid Stimulating Hormone (01/19/2007 10:56 AM CDT) P athologist Signature Thyroid 1.93 0.20 - HP CONVERSION Stimulating 4.50 Hormone uIU/mL Specimen (Source) Anatomical Collection Method Collection Time Re ceived Time Location / / Volume Laterality 01/19/2007 10:56 AM CDT Judy Sorensen MD LAB_1 Performing Organization Address [facility] Phon e Number HP CONVERSION Pap Smear (01/19/2007 9:13 AM CDT) Patholo gist Method Time Signature PAP Smear SEE TEXT No normal HP CONVERSION Liquid Based range Comment: Patient: SHU OLIVA ? CERVICAL CYTOLOGY REPORT Pathology # ??[id number] ?Date Obtained: ? Date Received: CYTOLOGIC IMPRESSION: Negative for intraepithelial lesion or m alignancy. Verified 01/23/07 by: ??JLD ?(electronic signature) ? PAULINA TIONAL DATA LMP: ?YACHT HAND CLINICAL HIST LIQUID BASED PAP CERVICAL SPECIMEN ADEQUACY: ?? Satisfactory. ENDOCERVICAL CELLS: ??Absent; patient is post-menopausal. Specimen (Source) Anatomical Collection Method Collection Time Re ceived Time Location / / Volume Laterality 01/19/2007 9:13 AM CDT Judy Sorensen MD LAB_1 Performing Organization Address City/State/ZIP Code Phon e Number HP CONVERSION documented in this encounter Visit Diagnoses Not on filedocumented in this encounter Care Teams Commercial Sales Director Relationship Specialty Start Date End Date Judy Sorensen MD PCP - General 12/18/10 05/02/18 [address] [place], [place] [address] documented as of this encounter
--- OUTSIDE RECORDS SUMMARY | 2022-05-04 09:23 | XMS_ITS | Encounter Summary ---
:1940 Author Organization [employer] Address [address] [place] [address] Care Team Providers Name Role Phone Judy Sorensen MD Primary Care Provider Reason for Visit Reason Comments Other Encounter Details Date Type Department Care Team Description 01/31/2008 Telephone [facility], Message Other [address] [place] [address] Social History Tobacco Use Types Packs/Day Years Used Date Smoking Tobacco: Never Assessed Sex Assigned at Date Recorded Not on file documented as of this encounter [facility], Message - 01/31/2008 9:12 AM CDT Phone Note filed by [employer] at 01/05/112055 Author: [employer] Service: (none) Author Type: (none) Filed: 01/05/112055 Note Time: 01/31/08911 Status: Signed Hospital Chief Executive Officer: [employer] Prescription Refill Please provide enough refills to last until patient's next visit. Comment:- Pharmacy Seq #:-[phone] Pharmacy Name:-[facility] Street or City:[facility] Clinician Name:-Evon Larsen Drug Name/Strength:-Atenolol [...] exam or med ck appt due. On [id number] 4:21pm UTE MATOS wrote: Patient made appt for 03/01 REST BUILDER documented in this encounter Plan of Treatment Not on filedocumented as of this encounter Visit Diagnoses Not on filedocumented in this encounter Care Teams Toys And Games Hand Finisher Relationship Specialty Start Date End Date Judy Sorensen MD PCP - General 12/18/10 05/02/18 [address] [place] [address] documented as of this encounter
--- OUTSIDE RECORDS SUMMARY | 2022-05-04 09:23 | XMS_ITS | Encounter Summary ---
:1940 Author Organization [employer] Address [address] [place] [address] Care Team Providers Name Role Phone Judy Sorensen MD Primary Care Provider Reason for Visit Reason Comments Other Encounter Details Date Type Department Care Team Description 08/16/2006 Telephone [facility] Carlee Feldman MD Other [facility] [address] [place] [address] [place], [place] [address] [phone] Social History Tobacco Use Types Packs/Day Years Used Date Smoking Tobacco: Never Assessed Sex Assigned at Date Recorded Not on file documented as of this encounter Progress Notes [employer], Message - 08/16/2006 9:47 AM CST Phone Note filed by [employer] at 01/04/11 857 Author: [employer] Service: (none) Author Type: (none) Filed: 01/04/11 1137 Note Time: 08/16/06946 Status: Signed Running Rigger: [employer] Preliminary Dobutimine Stress ECHO results are available on this patient in LastWord. Created on 16Aug2006 9:47am by MARTA KIRAN Acknowledged by CARLEE GRACIA on 11:02am STIAN MINISTRIES PROFESSOR documented in this encounter Plan of Treatment Not on filedocumented as of this encounter Visit Diagnoses Not on filedocumented in this encounter Care Teams Supervisor Electronics Testing Relationship Specialty Start Date End Date Judy Sorensen MD PCP - General 12/18/10 05/02/18 [address] [place] [address] documented as of this encounter
--- OUTSIDE RECORDS SUMMARY | 2022-05-04 09:23 | XMS_ITS | Encounter Summary ---
:1940 Author Organization [employer] Address [address] [place] [address] Care Team Providers Name Role Phone Judy Sorensen MD Primary Care Provider Encounter Details Date Type Department Care Team Description 09/25/2006 PN Conversion Only L[place] [address] [place] [address] [place] [address] (Wo rk) Social History Tobacco Use Types Packs/Day Years Used Date Smoking Tobacco: Never Assessed Sex Assigned at Date Recorded Not on file documented as of this encounter Plan of Treatment Not on filedocumented as of this encounter Procedures Procedure Name Priority Date/Time Associated Comments Diagnosis ELECTROLYTES (NA, K, Routine 09/25/2006 11:40 Res ults for this CL, BICARB) AM AGRICULTURAL EXTENSION OFFICER procedure are i n the results section. HEMOGLOBIN, BLOOD Routine 09/25/2006 11:40 Result s for this AM AGRICULTURAL EXTENSION OFFICER procedure are i n the results section. MAGNESIUM Routine 09/25/2006 11:40 Results for this AM AGRICULTURAL EXTENSION OFFICER procedure are i n the results section. CALCIUM Routine 09/25/2006 11:40 Results for this AM AGRICULTURAL EXTENSION OFFICER procedure are i n the results section. documented in this encounter Results Calcium (09/25/2006 11:40 AM AGRICULTURAL EXTENSION OFFICER) P athologist Signature Calcium 8.7 8.5 - 10.5 HP CONVERSION mg/dL Specimen (Source) Anatomical Collection Method Collection Time Re ceived Time Location / / Volume Laterality 09/25/2006 11:40 AM AGRICULTURAL EXTENSION OFFICER Judy Sroensen MD LAB_1 Performing Organization Address City/State/ZIP Code Phon e Number HP CONVERSION Magnesium (09/25/2006 11:40 AM AGRICULTURAL EXTENSION OFFICER) athologist Signature Magnesium 1.9 1.5 - 2.4 HP CONVERSION mg/dL Specimen (Source) Anatomical Collection Method Collection Time Re ceived Time Location / / Volume Laterality 09/25/2006 11:40 AM AGRICULTURAL EXTENSION OFFICER Judy Sorensen MD LAB_1 Performing Organization Address City/[facility] Code Phon e Number HP CONVERSION Electrolytes (NA, K, CL, Bicarb) (09/25/2006 11:40 AM AGRICULTURAL EXTENSION OFFICER) athologist Signature Sodium 143 137 - 147 HP CONVERSION mEq/L Potassium 4.8 3.5 - 5.2 HP CONVERSION mEq/L Chloride 103 98 - 110 HP CONVERSION mEq/L Bicarbonate 28 23 - 33 HP CONVERSION mmol/L Specimen (Source) Anatomical Collection Method Collection Time Re ceived Time Location / / Volume Laterality 09/25/2006 11:40 AM AGRICULTURAL EXTENSION OFFICER Judy Sorensen MD LAB_1 Performing Organization Address City/[facility] Phon e Number HP CONVERSION Hemoglobin, Blood (09/25/2006 11:40 AM AGRICULTURAL EXTENSION OFFICER) athologist Signature Hemoglobin 13.7 11.8 - 15.5 HP CONVERSION gm/dL Specimen (Source) Anatomical Collection Method Collection Time Re ceived Time Location / / Volume Laterality 09/25/2006 11:40 AM AGRICULTURAL EXTENSION OFFICER Judy Sorensen MD LAB_1 Performing Organization Address City/[facility]/ZIP [facility] Phon e Number HP CONVERSION documented in this encounter Visit Diagnoses Not on filedocumented in this encounter Care Teams Rumper Relationship Specialty Start Date End Date Judy Sorensen MD PCP - General 12/18/10 05/02/18 [address] [place] [address] documented as of this encounter
--- OUTSIDE RECORDS SUMMARY | 2022-05-04 09:23 | XMS_ITS | Encounter Summary ---
:1940 Author Organization [facility] Address [address] [place] [address] Care Team Providers Name Role Phone Judy Sorensen MD Primary Care Provider Encounter Details Date Type Department Care Team Description 02/20/2008 PN Conversion Only [place] [address] [place] [address] [place], [place] [address] (Wo rk) Social History Tobacco Use Types [...] Results ALT (SGPT) (02/20/2008 11:02 AM CDT) [facility] gist Method Time Signature Alanine 17 4 - 55 HP CONVERSION Aminotransferase U/L Specimen (Source) Anatomical Collection Method Collection Time Re ceived Time Location / / Volume Laterality 02/20/2008 11:02 AM CDT Judy Sorensen MD LAB_1 Performing Organization Address City/[facility]/ZIP Code Phon e Number HP CONVERSION AST (02/20/2008 11:02 AM CDT) [facility] Method Time Signature Aspartate 14 0 - 45 HP CONVERSION Aminotransferase U/L Specimen (Source) Anatomical Collection Method Collection Time Re ceived Time Location / / Volume Laterality 02/20/2008 11:02 AM CDT Judy Sorensen MD LAB_1 Performing Organization Address City/[facility] Code Phon e Number HP CONVERSION Creatinine / GFR (02/20/2008 11:02 AM CDT) athologist Signature Creatinine 0.8 0.4 - 1.3 HP CONVERSION Serum mg/dL Est GFR >60 >60 HP CONVERSION Am Comment: -Prydeinig and Qhp-Tqcwckp-Imapoew n reference range units: mL/min/1.73m2 Normal>60, moderate decrease 30 - 59, se james decrease 15 - 29, renal failure <15 mL/min/1.73 m2 Est GFR Non-Afr Am >60 >60 HP CONVERSI ON Specimen (Source) Anatomical Collection Method Collection Time Re ceived Time Location / / Volume Laterality 02/20/2008 11:02 AM CDT Judy Sorensen MD LAB_1 Performing Organization Address City/[facility]/ZIP Code Phon e Number HP CONVERSION Glucose (02/20/2008 11:02 AM CDT) P athologist Signature Length Of Fast 12.0 Hours HP CONVERSION Lab Glucose 95 60 - 100 HP CONVERSION mg/dL Specimen (Source) Anatomical Collection Method Collection Time Re ceived Time Location / / Volume Laterality 02/20/2008 11:02 AM CDT Judy Sorensen MD LAB_1 Performing Organization Address [facility] Phon e Number HP CONVERSION Sodium (02/20/2008 11:02 AM CDT) P athologist Signature Sodium 143 137 - 147 HP CONVERSION mEq/L Specimen (Source) Anatomical Collection Method Collection Time Re ceived Time Location / / Volume Laterality 02/20/2008 11:02 AM CDT Judy Sorensen MD LAB_1 Performing Organization Address [facility] Phon e Number HP CONVERSION Potassium (02/20/2008 11:02 AM CDT) P athologist Signature Potassium 5.2 3.5 - 5.2 HP CONVERSION mEq/L Specimen (Source) Anatomical Collection Method Collection Time Re ceived Time Location / / Volume Laterality 02/20/2008 11:02 AM CDT Judy Sorensen MD LAB_1 Performing Organization Address [facility] Phon e Number HP CONVERSION Lipid Panel [...] Sorensen MD LAB_1 Performing Organization Address [facility] Phon e Number HP CONVERSION Pap Smear (02/20/2008 7:35 AM CDT) Patholo gist Method Time Signature PAP Smear SEE TEXT No normal HP CONVERSION Liquid Based range Comment: Patient: SHU OLIVA ? CERVICAL CYTOLOGY REPORT Pathology # ??[id number] ?Date Obtained: ? Date Received: CYTOLOGIC IMPRESSION: [...] on filedocumented in this encounter Care Teams Macaroni Maker Relationship Specialty Start Date End Date Judy Sorensen MD PCP - General 12/18/10 05/02/18 [address] [place], [place] [address] documented as of this encounter
--- OUTSIDE RECORDS SUMMARY | 2022-05-04 09:23 | XMS_ITS | Encounter Summary ---
:1940 Author Organization [employer] Address [address], [place] [address] Care Team Providers Name Role Phone Judy Sorensen MD Primary Care Provider Encounter Details Date Type Department Care Team Description 07/03/2007 Nursing Visit [facility] [place] [address] [place] [address] [place] [phone] [address] Social History Tobacco Use Types Packs/Day Years Used Date Smoking Tobacco: Never Assessed Sex Assigned at Date Recorded Not on file documented as of this encounter Plan of Treatment Not on filedocumented as of this encounter Visit Diagnoses Not on filedocumented in this encounter Care Teams Metal Cabinet Finisher Relationship Specialty Start Date End Date Judy Sorensen MD PCP - General 12/18/10 05/02/18 [address] [place], [place] [address] documented as of this encounter
--- OUTSIDE RECORDS SUMMARY | 2022-05-04 09:23 | XMS_ITS | Encounter Summary ---
:1940 Author Organization [employer] Address [address] [place] [address] Care Team Providers Name Role Phone Unassigned, Provider Primary Care Provider Unavailable Encounter Details Date Type Department Care Team Description 08/15/2006 Hospital Encounter FAITH CONVERSION Jean Claude Mckinley MD [address] [place] [address] (Wo rk) Social History Tobacco Use Types [...] 12:08 Result s for this ECHOCARDIOGRAM PM HOBBIES AND CRAFTS SALES REPRESENTATIVE procedure are in the results section. documented in this encounter Results Dobutamine Stress Echocardiogram (08/15/2006 12:08 PM HOBBIES AND CRAFTS SALES REPRESENTATIVE) Specimen (Source) Anatomical Collection Method Collection Time Re ceived Time Location / / Volume Laterality 08/15/2006 12:08 PM HOBBIES AND CRAFTS SALES REPRESENTATIVE Narrative HP CONVERSION - 08/15/2006 12:08 PM HOBBIES AND CRAFTS SALES REPRESENTATIVE This study included two-dimensional echo, pulse, continuous [...] on filedocumented in this encounter Care Teams Crude Oil Treater Relationship Specialty Start Date End Date Unassigned, Provider PCP - General 08/25/00 12/17/[address] [place] [address] documented as of this encounter
--- OUTSIDE RECORDS SUMMARY | 2022-05-04 09:23 | XMS_ITS | Encounter Summary ---
:1940 Author Organization [employer] Address [address] [place] [address] Care Team Providers Name Role Phone Judy Sorensen MD Primary Care Provider Encounter Details Date Type Department Care Team Description 08/29/2006 Office Visit [facility] [place] [address] [place] [address] [place] [address] (Wo rk) Social History Tobacco Use Types Packs/Day Years Used Date Smoking Tobacco: Never Assessed Sex Assigned at Date Recorded Not on file documented as of this encounter Last Filed Vital Signs Vital Sign Reading Time Taken Comments Blood Pressure 130/70 08/29/2006 11:56 AM BANKING SPECIALIST Pulse 60 08/29/2006 11:56 AM BANKING SPECIALIST Temperature 37.1 ??C (98.8 ??F) 08/29/2006 11:56 AM ORAL C: 37.1 C BANKING SPECIALIST Respiratory Rate 16 08/29/2006 11:56 AM BANKING SPECIALIST Oxygen Saturation - - Inhaled Oxygen Concentration - - Weight - - Height - - Body Mass Index - - documented in this encounter Progress Notes Rylan Hayward MD - 08/29/2006 12:01 AM CST Progress Notes signed by Rylan Hayward MD at 09/05/06 0901 Author: Rylan Hayward MD Service: (none) Author Type: Physician Filed: 01/07/11 1543 Note Time: 08/29/06 0001 Status: Signed Talent Rep: Rylan Hayward MD (Physician) NAME: SHU OLIVA MR#: [id number] ACCT: [id number] VISIT: [id number] DICTATING CLINICIAN: Rylan Hayward MD JOB: [id number] LOC: 520 CLINIC PROGRESS NOTE DATE OF [...] night only for sleep. PLAN: See assessment. JND:[id number] C: 08/30/06 13:03 DOCUMENT: [id number] ING SPECIALIST documented in this encounter Plan of Treatment Not on filedocumented as of this encounter Visit Diagnoses Not on filedocumented in this encounter Care Teams Batch Heat Treat Operator Relationship Specialty Start Date End Date Judy Sorensen MD PCP - General 12/18/10 05/02/18 [address] [place] [address] documented as of this encounter
--- OUTSIDE RECORDS SUMMARY | 2022-05-04 09:23 | XMS_ITS | Encounter Summary ---
:1940 Author Organization [employer] Address [address] [place] [address] Care Team Providers Name Role Phone Judy Sorensen MD Primary Care Provider Reason for Visit Reason Comments Other Encounter Details Date Type Department Care Team Description 02/02/2007 Telephone [facility], Message Other [address] [place], [place] [address] Social History Tobacco Use Types Packs/Day Years Used Date Smoking Tobacco: Never Assessed Sex Assigned at Date Recorded Not on file documented as of this encounter [facility], Message - 02/02/2007 3:09 PM CDT Phone Note filed by [employer] at 01/04/112109 Author: [employer] Service: (none) Author Type: (none) Filed: 01/04/112109 Note Time: 02/02/07 1509 Status: Signed Director Of Archives: [employer] MESSAGE TO CARE TEAM NAME OF CALLER:[facility]g [facility] NAME OF CLINICIAN:Dr Larsen MESSAGE:please call regarding a RX script for pt written on , 01-24-07 PHARMACY NAME:[facility] PHONE #: [phone] fax# [phone] CITY:[place] CALL BACK PHONE OR CELL PHONE:above BEST [...] fax # above; On 05Feb2007 9:40am JUDY LARSEN wrote: Looking for folate 1 mg, B12 250 mg and B6 25 mg in a capsule, but can be a tab. Could substitute the 0.6 mg folate, may be available as an OTC. Acknowledged by JUDY LARSEN on 9:40am On 05Feb2007 12:20pm MARKUS CORLEY wrote: clarified with pharm Acknowledged by MARKUS CORLEY on 12:20pm GROUND SUPERVISOR documented in this encounter Plan of Treatment Not on filedocumented as of this encounter Visit Diagnoses Not on filedocumented in this encounter Care Teams Receiving Teller Relationship Specialty Start Date End Date Judy Sorensen MD PCP - General 12/18/10 05/02/18 [address] [place] [address] documented as of this encounter
--- OUTSIDE RECORDS SUMMARY | 2022-05-04 09:23 | XMS_ITS | Encounter Summary ---
:1940 Author Organization [employer] Address [address] [place] [address] Care Team Providers Name Role Phone Judy Sorensen MD Primary Care Provider Encounter Details Date Type Department Care Team Description 08/01/2006 Office Visit [facility] Carlee Feldman MD [facility] [address] [place] [address] [place] [address] [phone] Social History Tobacco Use Types Packs/Day Years Used Date Smoking Tobacco: Never Assessed Sex Assigned at Date Recorded Not on file documented as of this encounter Last Filed Vital Signs Vital Sign Reading Time Taken Comments Blood Pressure 162/78 08/01/2006 10:26 AM TUBE SIZER OPERATOR Pulse - - Temperature - - Respiratory [...] 1508 Note Time: 08/01/06 0001 Status: Signed Windows Server Support Technician: Carlee Gracia MD (Physician) NAME: SHU OLIVA MR#: [id number] ACCT: [id number] VISIT: [id number] DICTATING CLINICIAN: CARLEE GRACIA MD JOB: [id number] LOC: 3588 CLINIC PROGRESS NOTE DATE OF VISIT: 08/01/2006 ADDENDUM: Total time is 15 minutes, counseling time 15 minutes. SUBJECTIVE: OBJECTIVE: ASSESSMENT: PLAN: Ángel:[id number] C: 08/02/06 08:12 DOCUMENT: [id number] SIZER OPERATOR Carlee Gracia MD - 08/01/2006 12:01 AM CST Progress Notes signed by Carlee Gracia MD at 08/05/06 0845 Author: Carlee Gracia MD Service: (none) Author Type: Physician Filed: 01/07/11 1508 Note Time: 08/01/06 0001 Status: Signed Windows Server Support Technician: Carlee Gracia MD (Physician) NAME: SHU OLIVA MR#: [id number] ACCT: [id number] VISIT: [id number] DICTATING CLINICIAN: CARLEE GRACIA MD JOB: [id number] LOC: 3588 CLINIC PROGRESS NOTE DATE OF [...] to my office. CC: JUDY GARCÍA MD JMM:[id number] C: 08/02/06 07:52 DOCUMENT: [id number] SIZER OPERATOR documented in this encounter Plan of Treatment Not on filedocumented as of this encounter Visit Diagnoses Not on filedocumented in this encounter Care Teams Deputy Controller Relationship Specialty Start Date End Date Judy Sorensen MD PCP - General 12/18/10 05/02/18 [address] [place] [address] documented as of this encounter
--- OUTSIDE RECORDS SUMMARY | 2022-05-04 09:23 | XMS_ITS | Encounter Summary ---
:1940 Author Organization [employer] Address [address] [place] [address] Care Team Providers Name Role Phone Unassigned, Provider Primary Care Provider Unavailable Encounter Details Date Type Department Care Team Description 09/27/2006 - Hospital Encounter Roman Catholic Jordan Gracia MD [address] [place] [id number] 10/03/2006 [id number] Carlee Gracia MD [address] [place] [address] [facility] [address] [place] [address] Social History Tobacco Use Types Packs/Day Years Used Date Smoking Tobacco: Never Assessed Sex Assigned at Date Recorded Not on file documented as of this encounter Last Filed Vital Signs Vital Sign Reading Time Taken Comments Blood Pressure 111/63 10/03/2006 7:39 AM C: Manual TRIM CREW SUPERVISOR Pulse 90 10/03/2006 7:39 AM TRIM CREW SUPERVISOR Temperature 37.1 ??C (98.8 ??F) 10/03/2006 7:39 AM ORAL C: 9 8.8 F TRIM CREW SUPERVISOR Respiratory Rate 16 10/03/2006 7:39 AM TRIM CREW SUPERVISOR Oxygen Saturation 96% 10/03/2006 4:43 AM TRIM CREW SUPERVISOR Inhaled Oxygen Concentration - - Weight 65.7 kg (144 lb 13.5 09/30/2006 7:25 AM C: 144.8 lb oz) TRIM CREW SUPERVISOR Height - - Body Mass Index - - documented in this encounter Discharge Summaries Carlee Gracia MD - 10/03/2006 12:01 AM CST Discharge Summaries signed by Carlee Gracia MD at 11/02/06 1615 Author: Carlee Gracia MD Service: (none) Author Type: Physician Filed: 01/07/11 0433 Note Time: 11/02/06 0836 Status: Signed Lead Software Engineer: Carlee Gracia MD (Physician) NAME: SHU OLIVA MR#: [id number] ACCT: [id number] AUTHENTICATING CLINICIAN: CARLEE GRACIA MD JOB: [id number] LOC: 1 HOSPITAL DISCHARGE SUMMARY DATE OF [...] clinic accordingly in the next 2 weeks. NICKIM:[id number] C: 11/02/06 09:10 DOCUMENT: [id number] CREW SUPERVISOR documented in this encounter Medications at Time [...] 1617 Note Time: 09/29/06 0909 Status: Signed Lead Software Engineer: Carlee Gracia MD (Physician) NAME: SHU OLIVA MR#: [id number] ACCT: [id number] AUTHENTICATING CLINICIAN: CARLEE GRACIA MD JOB: [id number] LOC: 1 OPERATIVE REPORT DATE OF OPERATION: 09/27/06 INDICATIONS FOR PROCEDURE: PREOPERATIVE DIAGNOSIS: Severe aortoiliac occlusive disease. POSTOPERATIVE DIAGNOSIS: Severe aortoiliac occlusive disease. PROCEDURE PERFORMED: 1. Aortobifemoral bypass using 16 by 8 mm PTFE graft. 2. Ligation of left external iliac artery. SURGEON: Carlee Gracia M.D. SYNTHETIC CHEMIST: Ubaldo Hinojosa M.D. ANESTHESIA: General endotracheal anesthesia. [...] allowed blood to flow back into the mechoopda circulation for a period of 1 to [...] suture, and the skin was closed with rebecac. The patient tolerated the operation and went to recovery in stable condition. 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 COMPLETE BLOOD Routine 09/29/2006 7:35 AM Results for this COUNT-W/DIFF TRIM CREW SUPERVISOR procedure are i n the results section. HEMOGLOBIN, BLOOD Routine 09/28/2006 8:27 PM Resu lts for this TRIM CREW SUPERVISOR procedure are i n the results section. XR PORTABLE CHEST 1 Routine 09/28/2006 7:15 AM Re sults for this VIEW TRIM CREW SUPERVISOR procedure are i n the results section. ECG 12 LEAD INPATIENT Routine 09/28/2006 6:34 AM Results for this TRIM CREW SUPERVISOR procedure are i n the results section. ELECTROLYTES (NA, K, Routine 09/28/2006 4:00 AM R esults for this CL, BICARB) TRIM CREW SUPERVISOR procedure are i n the results section. CREATININE / GFR Routine 09/28/2006 4:00 AM Resul ts for this TRIM CREW SUPERVISOR procedure are i n the results section. COMPLETE BLOOD Routine 09/28/2006 4:00 AM Results for this COUNT-W/DIFF TRIM CREW SUPERVISOR procedure are i n the results section. MAGNESIUM Routine 09/28/2006 4:00 AM Results f or this TRIM CREW SUPERVISOR procedure are i n the results section. BEDSIDE GLUCOSE MONITOR Routine 09/27/2006 5:31 PM Results for this POCT TRIM CREW SUPERVISOR procedure are i n the results section. MRSA CULTURE Routine 09/27/2006 5:27 PM Results f or this TRIM CREW SUPERVISOR procedure are i n the results section. XR PORTABLE CHEST 1 Routine 09/27/2006 4:17 PM Re sults for this VIEW TRIM CREW SUPERVISOR procedure are i n the results section. ECG 12 LEAD INPATIENT STAT 09/27/2006 4:05 PM Results for this TRIM CREW SUPERVISOR procedure are i n the results section. ELECTROLYTES (NA, K, Routine 09/27/2006 3:46 PM R esults for this CL, BICARB) TRIM CREW SUPERVISOR procedure are i n the results section. CREATININE / GFR Routine 09/27/2006 3:46 PM Resul ts for this TRIM CREW SUPERVISOR procedure are i n the results section. COMPLETE BLOOD Routine 09/27/2006 3:46 PM Results for this COUNT-W/DIFF TRIM CREW SUPERVISOR procedure are i n the results section. APTT (ACTIVATED PARTIAL Routine 09/27/2006 3:46 PM Results for this THROMBOPLASTIN TIME TRIM CREW SUPERVISOR procedur e are in the results section. MAGNESIUM Routine 09/27/2006 3:46 PM Results f or this TRIM CREW SUPERVISOR procedure are i n the results section. POTASSIUM Routine 09/27/2006 10:00 Results for this AM TRIM CREW SUPERVISOR procedure are i n the results section. BEDSIDE GLUCOSE MONITOR Routine 09/27/2006 9:57 AM Results for this POCT TRIM CREW SUPERVISOR procedure are i n the results section. LAB TYPE, SCREEN AND Routine 09/27/2006 9:45 AM R esults for this CROSSMATCH TRIM CREW SUPERVISOR procedure are i n the results section. documented in this encounter Results (ABNORMAL) Basic Metabolic Panel (09/29/2006 7:35 AM TRIM CREW SUPERVISOR) [facility] [employer] Method Time Signature Creatinine Serum 1.1 0.5 [...] / / Volume Laterality 09/29/2006 7:35 AM TRIM CREW SUPERVISOR Thomas Hinojosa MD LAB_1 Performing Organization Address City/State/ZIP Code Phon e Number HP CONVERSION (ABNORMAL) Complete Blood Count-W/Diff (09/29/2006 7:35 AM TRIM CREW SUPERVISOR) [facility] [employer] Method Time Signature White Blood Cell 9.0 [...] - HP CONVERSION Hemoglobin Conc 36.5 gm/dL [place] RDW 13.6 11.0 - HP CONVERSION 15.0 [...] / / Volume Laterality 09/29/2006 7:35 AM TRIM CREW SUPERVISOR Thomas Hinojosa MD LAB_1 Performing Organization Address City/State/ZIP Code Phon e Number HP CONVERSION Hemoglobin, Blood (09/28/2006 8:27 PM TRIM CREW SUPERVISOR) P athologist Signature Hemoglobin 13.1 11.8 - 15.5 HP CONVERSION gm/dL Specimen (Source) Anatomical Collection Method Collection Time Re ceived Time Location / / Volume Laterality 09/28/2006 8:27 PM TRIM CREW SUPERVISOR Carlee Gracia MD LAB_1 Performing Organization Address City/State/ZIP Code Phon e Number HP CONVERSION XR Portable Chest 1 View (09/28/2006 7:15 AM TRIM CREW SUPERVISOR) Anatomical Region Laterality Modality Chest, Lung Other Specimen (Source) Anatomical Location Collection Method / Collectio n Time Received Time / Laterality Volume Narrative 09/28/2006 7:15 AM TRIM CREW SUPERVISOR PORTABLE CHEST, 09/28/2006 Comparison is made to 09/27/2006. ??Tube s and catheters are unchanged. The lungs are clear, and the heart and m ediastinum are unremarkable. CONCLUSION: ??No change from 09/27/2006. [id number] Dictating ERASMO MENSAH RADIOLOGIST Procedure Note Erasom Parikh - 11/26/2016Formattin g of this note might be different from the original. PORTABLE CHEST, 09/28/2006 Comparison is made to 09/27/2006. Tubes and catheters are unchanged. The lungs are clear, and the heart and m ediastinum are unremarkable. CONCLUSION: No change from 09/27/2006. [id number]/ss Dictating ERASMO MENSAH RADIOLOGIST Thomas Hinojosa MD RAD PORTABLE ECG 12 Lead Inpatient (09/28/2006 6:34 AM TRIM CREW SUPERVISOR) Specimen (Source) Anatomical Collection Method Collection Time Re ceived Time Location / / Volume Laterality 09/28/2006 6:34 AM TRIM CREW SUPERVISOR Narrative HP CONVERSION - 09/28/2006 6:34 AM TRIM CREW SUPERVISOR Normal sinus rhythm Normal ECG When compared with ECG of 27-SEP-2006 1 6:05, T wave amplitude has decreased in Infer ior leads Thomas Hinojosa MD PN ECG ORDERABLES Performing Organization Address City/State/ZIP Code Phon e Number HP CONVERSION (ABNORMAL) Complete Blood Count-W/Diff (09/28/2006 4:00 AM TRIM CREW SUPERVISOR) [facility] gist Method Time Signature White Blood [...] - HP CONVERSION Hemoglobin Conc 36.5 gm/dL [place] RDW 12.9 11.0 - HP CONVERSION 15.0 [...] / / Volume Laterality 09/28/2006 4:00 AM TRIM CREW SUPERVISOR Thomas Hinojosa MD LAB_1 Performing Organization Address City/State/ZIP Code Phon e Number HP CONVERSION Electrolytes (NA, K, CL, Bicarb) (09/28/2006 4:00 AM TRIM CREW SUPERVISOR) athologist Signature Sodium 140 137 - 147 HP CONVERSION mEq/L Potassium 4.3 3.5 - 5.2 HP CONVERSION mEq/L Chloride 109 98 - 110 HP CONVERSION mEq/L Bicarbonate 24 23 - 33 HP CONVERSION mmol/L Specimen (Source) Anatomical Collection Method Collection Time Re ceived Time Location / / Volume Laterality 09/28/2006 4:00 AM TRIM CREW SUPERVISOR Thomas Hinojosa MD LAB_1 Performing Organization Address City/[facility]/ZIP Code Phon e Number HP CONVERSION Creatinine / GFR (09/28/2006 4:00 AM TRIM CREW SUPERVISOR) athologist Signature Creatinine 0.7 0.5 - 1.5 HP CONVERSION Serum mg/dL Specimen (Source) Anatomical Collection Method Collection Time Re ceived Time Location / / Volume Laterality 09/28/2006 4:00 AM TRIM CREW SUPERVISOR Thomas Hinojosa MD LAB_1 Performing Organization Address City/[facility]/ZIP Code Phon e Number HP CONVERSION Magnesium (09/28/2006 4:00 AM TRIM CREW SUPERVISOR) athologist Signature Magnesium 1.9 1.5 - 2.4 HP CONVERSION mg/dL Specimen (Source) Anatomical Collection Method Collection Time Re ceived Time Location / / Volume Laterality 09/28/2006 4:00 AM TRIM CREW SUPERVISOR Thomas Hinojosa MD LAB_1 Performing Organization Address City/State/ZIP Code Phon e Number HP CONVERSION Bedside Glucose Monitor (09/27/2006 5:31 PM TRIM CREW SUPERVISOR) athologist Signature Bedside Blood 116 mg/dL HP CONVERSION Glucose Test Blood Glucose * No normal HP CONVERSION Screen, range Comment 1 Blood Glucose * No normal HP CONVERSION Screen, range Comment 2 Blood Glucose * No normal HP CONVERSION Screen, range Comment 3 Specimen (Source) Anatomical Collection Method Collection Time Re ceived Time Location / / Volume Laterality 09/27/2006 5:31 PM TRIM CREW SUPERVISOR Carlee Gracia MD LAB_1 Performing Organization Address City/State/ZIP Code Phon e Number HP CONVERSION MRSA Culture (09/27/2006 5:27 PM TRIM CREW SUPERVISOR) Analysis Performed At [facility] Time Signature Culture Mrsa SEE TEXT HP CONVERSION Screen Comment: Patient: SHU OLIVA Culture, MRSA Screen @ ?Collected: ??[id number] ??[id number] Source: ANTOINE ? Processed: ??[id number] ??[id number] ? ANTOINE Final Report ------ ?[id number] ??[id number] No Methicillin resistant Staph aureus is olated. @ = MRSA SCREEN Performed at ??[address] [place], [place] ?[address] Specimen (Source) Anatomical Collection Method Collection Time Re ceived Time Location / / Volume Laterality 09/27/2006 5:27 PM TRIM CREW SUPERVISOR Mary Chahal MD LAB_1 Performing Organization Address City/[facility]/ZIP Code Phon e Number HP CONVERSION XR Portable Chest 1 View (09/27/2006 4:17 PM TRIM CREW SUPERVISOR) Anatomical Region Laterality Modality Chest, Lung Other Specimen (Source) Anatomical Location Collection Method / Collectio n Time Received Time / Laterality Volume Narrative 09/27/2006 4:17 PM TRIM CREW SUPERVISOR CHEST PORTABLE: ??09/27/2006 FINDINGS: ??A PA line terminates in the right pulmonary artery and there is no pneumothorax. ??Nasogastric tube terminates subdiaphragmatically. ??The lungs are cl ear and the heart and mediastinum are unremarkable. CONCLUSION: ??Clear lungs and no pneumot horax. ??Tubes and catheters in satisfactory position. [id number] Dictating ERASMO MENSAH RADIOLOGIST Procedure Note Erasmo [...] rax. Tubes and catheters in satisfactory position. [id number] Dictating ERASMO MENSAH RADIOLOGIST Carlee Gracia MD RAD PORTABLE ECG 12 Lead Inpatient (09/27/2006 4:05 PM TRIM CREW SUPERVISOR) Specimen (Source) Anatomical Collection Method Collection Time Re ceived Time Location / / Volume Laterality 09/27/2006 4:05 PM TRIM CREW SUPERVISOR Narrative HP CONVERSION - 09/27/2006 4:05 PM TRIM CREW SUPERVISOR Normal sinus rhythm Normal ECG When compared with ECG of 28-JUL-2006 0 8:27, No significant change was found Carlee Gracia MD PN ECG ORDERABLES Performing Organization Address City/State/ZIP Code Phon e Number HP CONVERSION (ABNORMAL) Complete Blood Count-W/Diff (09/27/2006 3:46 PM TRIM CREW SUPERVISOR) [facility] Method Time Signature White Blood Cell [...] - HP CONVERSION Hemoglobin Conc 36.5 gm/dL [place] RDW 13.1 11.0 - HP CONVERSION 15.0 [...] / / Volume Laterality 09/27/2006 3:46 PM TRIM CREW SUPERVISOR Carlee Gracia MD LAB_1 Performing Organization Address City/[facility]/ZIP Code Phon e Number HP CONVERSION Electrolytes (NA, K, CL, Bicarb) (09/27/2006 3:46 PM TRIM CREW SUPERVISOR) athologist Signature Sodium 141 137 - 147 HP CONVERSION mEq/L Potassium 4.0 3.5 - 5.2 HP CONVERSION mEq/L Chloride 109 98 - 110 HP CONVERSION mEq/L Bicarbonate 24 23 - 33 HP CONVERSION mmol/L Specimen (Source) Anatomical Collection Method Collection Time Re ceived Time Location / / Volume Laterality 09/27/2006 3:46 PM TRIM CREW SUPERVISOR Carlee Gracia MD LAB_1 Performing Organization Address City/[facility]/ZIP Code Phon e Number HP CONVERSION Creatinine / GFR (09/27/2006 3:46 PM TRIM CREW SUPERVISOR) athologist Signature Creatinine 0.5 0.5 - 1.5 HP CONVERSION Serum mg/dL Specimen (Source) Anatomical Collection Method Collection Time Re ceived Time Location / / Volume Laterality 09/27/2006 3:46 PM TRIM CREW SUPERVISOR Carlee Gracia MD LAB_1 Performing Organization Address City/[facility]/ZIP Code Phon e Number HP CONVERSION Magnesium (09/27/2006 3:46 PM TRIM CREW SUPERVISOR) athologist Signature Magnesium 1.5 1.5 - 2.4 HP CONVERSION mg/dL Specimen (Source) Anatomical Collection Method Collection Time Re ceived Time Location / / Volume Laterality 09/27/2006 3:46 PM TRIM CREW SUPERVISOR Carlee Gracia MD LAB_1 Performing Organization Address [facility] Phon e Number HP CONVERSION APTT (Activated Partial Thromboplastin Time) (09/27/2006 3:46 PM TRIM CREW SUPERVISOR) [facility] gist Method Time Signature Partial 27.3 25.0 - HP CONVERSION Thromboplastin Time 38.0 sec Comment: New aPTT reagent in use effective 10/21/05 . See Last Word for current heparin dosage adjustments (new therapeutic rang e for full unfractionated heparin anticoagulation 65 ??to 95 seconds). Specimen (Source) Anatomical Collection Method Collection Time Re ceived Time Location / / Volume Laterality 09/27/2006 3:46 PM TRIM CREW SUPERVISOR Carlee Gracia MD LAB_1 Performing Organization Address [facility] Phon e Number HP CONVERSION Potassium (09/27/2006 10:00 AM TRIM CREW SUPERVISOR) athologist Signature Potassium 4.2 3.5 - 5.2 HP CONVERSION mEq/L Specimen (Source) Anatomical Collection Method Collection Time Re ceived Time Location / / Volume Laterality 09/27/2006 10:00 AM TRIM CREW SUPERVISOR Carlee Gracia MD LAB_1 Performing Organization Address [facility] Phon e Number HP CONVERSION Bedside Glucose Monitor (09/27/2006 9:57 AM TRIM CREW SUPERVISOR) athologist Signature Bedside Blood 108 mg/dL HP CONVERSION Glucose Test Blood Glucose * No normal HP CONVERSION Screen, range Comment 1 Blood Glucose * No normal HP CONVERSION Screen, range Comment 2 Blood Glucose * No normal HP CONVERSION Screen, range Comment 3 Specimen (Source) Anatomical Collection Method Collection Time Re ceived Time Location / / Volume Laterality 09/27/2006 9:57 AM TRIM CREW SUPERVISOR Carlee Gracia MD LAB_1 Performing Organization Address [facility] Phon e Number HP CONVERSION LAB TYPE, SCREEN AND CROSSMATCH (09/27/2006 9:45 AM TRIM CREW SUPERVISOR) P athologist Signature N/O BB NEG No normal HP CONVERSION ANTIBODY range SCREEN BB BLOOD TYPE O NEG No normal HP CONVERSION (BLOOD GROUP & range RH) Blood Type # 2 [id number] HP CONVERSION Units Requested Specimen (Source) Anatomical Collection Method Collection Time Re ceived Time Location / / Volume Laterality 09/27/2006 9:45 AM TRIM CREW SUPERVISOR Carlee Gracia MD LAB_1 Performing Organization Address City/State/ZIP Code Phon e Number HP CONVERSION documented in this encounter Visit Diagnoses Not on filedocumented in this encounter Care Teams Promotions Coordinator Relationship Specialty Start Date End Date Unassigned, Provider PCP - General 08/25/00 12/17/[address] [place] [address] documented as of this encounter
--- OUTSIDE RECORDS SUMMARY | 2022-05-04 09:23 | XMS_ITS | Encounter Summary ---
:1940 Author Organization [employer] Address [address] [place] [address] Care Team Providers Name Role Phone Judy Sorensen MD Primary Care Provider Encounter Details Date Type Department Care Team Description 09/21/2006 Office Visit [facility] Carlee Feldman MD [facility] [address] [place] [address] [place] [address] [phone] Social History Tobacco Use Types Packs/Day Years [...] 1608 Note Time: 09/21/06 0001 Status: Signed Medication Manager: Carlee Gracia MD (Physician) NAME: SHU OLIVA MR#: [id number] ACCT: [id number] VISIT: [id number] DICTATING CLINICIAN: CARLEE GRACIA MD JOB: [id number] LOC: 3588 CLINIC PROGRESS NOTE DATE OF [...] surgery next week. CC: JUDY GARCÍA MD JMM:[id number] C: 09/21/06 12:25 DOCUMENT: [id number] [employer] ACCOUNTS documented in this encounter Plan of Treatment Not on filedocumented as of this encounter Visit Diagnoses Not on filedocumented in this encounter Care Teams Rolled Glass Crosscutter Relationship Specialty Start Date End Date Judy Sorensen MD PCP - General 12/18/10 05/02/18 [address] [place] [address] documented as of this encounter
--- OUTSIDE RECORDS SUMMARY | 2022-05-04 09:23 | XMS_ITS | Encounter Summary ---
:1940 Author Organization [employer] Address [address] [place] [address] Care Team Providers Name Role Phone Judy Sorensen MD Primary Care Provider Encounter Details Date Type Department Care Team Description 01/25/2008 PN Conversion Only [address] [address] [place] [address] Social History Tobacco Use Types Packs/Day Years Used Date Smoking Tobacco: Never Assessed Sex Assigned at Date Recorded Not on file documented as of this encounter Plan of Treatment Not on filedocumented as of this encounter Visit Diagnoses Not on filedocumented in this encounter Care Teams Drum Maker Relationship Specialty Start Date End Date Judy Sorensen MD PCP - General 12/18/10 05/02/18 [address] [place], [place] [address] documented as of this encounter
--- OUTSIDE RECORDS SUMMARY | 2022-05-04 09:23 | XMS_ITS | Encounter Summary ---
:1940 Author Organization [employer] Address [address] [place] [address] Care Team Providers Name Role Phone Judy Sorensen MD Primary Care Provider Encounter Details Date Type Department Care Team Description 08/15/2006 Office Visit [facility] Carlee Feldman MD [facility] [address] [place] [address] [place] [address] [phone] Social History Tobacco Use Types Packs/Day Years [...] 1524 Note Time: 08/15/06 0001 Status: Signed Merchandise Clerk: Carlee Gracia MD (Physician) NAME: SHU OLIVA MR#: [id number] ACCT: [id number] VISIT: [id number] DICTATING CLINICIAN: CARLEE GRACIA MD JOB: [id number] LOC: 3588 CLINIC PROGRESS NOTE DATE OF [...] six to eight weeks. OBJECTIVE: ASSESSMENT: PLAN: JMM:[id number] C: 08/15/06 14:33 DOCUMENT: [id number] [employer] SCHO[employer] INSTRUCTOR documented in this encounter Plan of Treatment Not on filedocumented as of this encounter Visit Diagnoses Not on filedocumented in this encounter Care Teams Breaker Oiler Relationship Specialty Start Date End Date Judy Sorensen MD PCP - General 12/18/10 05/02/18 [address] [place] [address] documented as of this encounter
--- OUTSIDE RECORDS SUMMARY | 2022-05-04 09:23 | XMS_ITS | Encounter Summary ---
:1940 Author Organization [employer] Address [address] [place] [address] Care Team Providers Name Role Phone Judy Sorensen MD Primary Care Provider Reason for Visit Reason Comments Other Encounter Details Date Type Department Care Team Description 08/16/2006 Telephone [facility] Judy Christensen MD Other [address] [place] [address] [place], [place] [address] (Wo rk) Social History Tobacco Use Types Packs/Day Years Used Date Smoking Tobacco: Never Assessed Sex Assigned at Date Recorded Not on file documented as of this encounter Progress Notes [place], Message - 08/16/2006 9:46 AM CST Phone Note filed by [employer] at 01/04/11 662 Author: [employer] Service: (none) Author Type: (none) Filed: 01/04/11 1137 Note Time: 08/16/06945 Status: Signed Tongue Lining Stitcher: [facility] [employer] Preliminary Dobutimine Stress ECHO results are available on this patient in LastWord. Created on 16Aug2006 9:46am by MARTA KIRAN Acknowledged by JUDY GARCÍA on 12:11pm RANCE APPLICATION INVESTIGATOR documented in this encounter Plan of Treatment Not on filedocumented as of this encounter Visit Diagnoses Not on filedocumented in this encounter Care Teams Manager Business Relationship Specialty Start Date End Date Judy Sorensen MD PCP - General 12/18/10 05/02/18 [address] [place] [address] documented as of this encounter
--- OUTSIDE RECORDS SUMMARY | 2022-05-04 09:24 | XMS_ITS | Encounter Summary ---
:1940 Author Organization [employer] Address [address] [place] [address] Care Team Providers Name Role Phone Judy Sorensen MD Primary Care Provider Reason for Visit Reason Comments Other Encounter Details Date Type Department Care Team Description 11/24/2005 Telephone [facility], Message Other [address] [place] [address] Social History Tobacco Use Types Packs/Day Years Used Date Smoking Tobacco: Never Assessed Sex Assigned at Date Recorded Not on file documented as of this encounter Progress Notes Jacqueline Mccurdy - 11/24/2005 8:42 AM CST Phone Note filed by Jacqueline Mccurdy MA at 01/04/11134 Author: Jacqueline Mccurdy MA Service: (none) Author Type: (none) Filed: 01/04/11134 Note Time: 11/24/05841 Status: Signed Building Performance Consultant: Jacqueline Mccurdy MA (Netsuite Developer) Pt called and needs a refill of Atenolol 25mg called into [facility] in [place].Please call pt when done [phone] thanks Created on 24Nov2005 8:42am by JACQUELINE MCCURDY On 24Nov2005 5:51pm JUDY GARCÍA wrote: Please check on the pharmacy - there is not a fax for [facility] in [place]. Patient was last seen 06-21, I will [...] refills Acknowledged by MARKUS CORLEY on 9:17am RETE WALL GRINDER OPERATOR documented in this encounter Plan of Treatment Not on filedocumented as of this encounter Visit Diagnoses Not on filedocumented in this encounter Care Teams Injection Mold Tooling Technician Relationship Specialty Start Date End Date Judy Sorensen MD PCP - General 12/18/10 05/02/18 [address] [place] [address] documented as of this encounter
--- OUTSIDE RECORDS SUMMARY | 2022-05-04 09:24 | XMS_ITS | Encounter Summary ---
:1940 Author Organization [employer] Address [address] [place] [address] Care Team Providers Name Role Phone Judy Sorensen MD Primary Care Provider Reason for Visit Reason Comments Other Encounter Details Date Type Department Care Team Description 11/22/2004 Telephone [facility], Message Other [address] [place] [address] Social History Tobacco Use Types Packs/Day Years Used Date Smoking Tobacco: Never Assessed Sex Assigned at Date Recorded Not on file documented as of this encounter Progress Notes Yves Clifton MA - 11/22/2004 1:13 PM CST Phone Note filed by Yves Clifton MA at 01/03/111705 Author: Yves Clifton MA Service: (none) Author Type: Electronics Technician Apprentice Filed: 01/03/111705 Note Time: 11/22/04 1313 Status: Signed Social Science Professor: Yves Clifton MA (Electronics Technician Apprentice) Pt. calling for the 3rd time. She [...] filedocumented in this encounter Care Teams Certified Pharmacy Tech Relationship Specialty Start Date End Date Judy Sorensen MD PCP - General 12/18/10 05/02/18 [address] [place] [address] documented as of this encounter
--- OUTSIDE RECORDS SUMMARY | 2022-05-04 09:24 | XMS_ITS | Encounter Summary ---
:1940 Author Organization [employer] Address [address] [place] [address] Care Team Providers Name Role Phone Judy Sorensen MD Primary Care Provider Encounter Details Date Type Department Care Team Description 09/29/2004 PN Conversion Only CONV GASTROENTEROLOG Y Julius Andersen MD [address] [facility] [address] [place] [phone] (Wo rk) Social History Tobacco Use Types Packs/Day Years Used Date Smoking Tobacco: Never Assessed Sex Assigned at Date Recorded Not on file documented as of this encounter Plan of Treatment Not on filedocumented as of this encounter Visit Diagnoses Not on filedocumented in this encounter Care Teams Custodial Maintenance Worker Relationship Specialty Start Date End Date Judy Sorensen MD PCP - General 12/18/10 05/02/18 [address] [address] [place], [place] [address] documented as of this encounter
--- OUTSIDE RECORDS SUMMARY | 2022-05-04 09:24 | XMS_ITS | Encounter Summary ---
:1940 Author Organization [facility] Address [address] [place] [address] Care Team Providers Name Role Phone Judy Sorensen MD Primary Care Provider Encounter Details Date Type Department Care Team Description 11/02/2005 PN Conversion Only [place] [address] [place] [address] [place], [place] [address] (Wo rk) Social History Tobacco Use Types Packs/Day Years Used Date Smoking Tobacco: Never Assessed Sex Assigned at Date Recorded Not on file documented as of this encounter Plan of Treatment Not on filedocumented as of this encounter Procedures Procedure Name Priority Date/Time Associated Comments Diagnosis LIPID PANEL AND Routine 11/02/2005 8:19 AM Result s for this DIRECT LDL(IF MANAGER COMMUNITY OUTREACH procedure are in NEEDED) the results section. CREATININE / GFR Routine 11/02/2005 8:19 AM Resul ts for this MANAGER COMMUNITY OUTREACH procedure are i n the results section. AST Routine 11/02/2005 8:19 AM Results f or this MANAGER COMMUNITY OUTREACH procedure are i n the results section. documented in this encounter Results AST (11/02/2005 8:19 AM MANAGER COMMUNITY OUTREACH) [facility] Method Time Signature Aspartate 21 0 - 45 HP CONVERSION Aminotransferase U/L Specimen (Source) Anatomical Collection Method Collection Time Re ceived Time Location / / Volume Laterality 11/02/2005 8:19 AM MANAGER COMMUNITY OUTREACH Judy Sorensen MD LAB_1 Performing Organization Address City/State/ZIP Code Phon e Number HP CONVERSION Creatinine / GFR (11/02/2005 8:19 AM MANAGER COMMUNITY OUTREACH) P athologist Signature Creatinine 0.8 0.5 - 1.5 HP CONVERSION Serum mg/dL Specimen (Source) Anatomical Collection Method Collection Time Re ceived Time Location / / Volume Laterality 11/02/2005 8:19 AM MANAGER COMMUNITY OUTREACH Judy Sorensen MD LAB_1 Performing Organization Address City/State/ZIP Code Phon e Number HP CONVERSION (ABNORMAL) Lipid Panel and Direct LDL(If Needed) (11/02/2005 8:19 AM MANAGER COMMUNITY OUTREACH) Patholo gist Method Time Signature Cholesterol/HDL 2.8 [...] / / Volume Laterality 11/02/2005 8:19 AM MANAGER COMMUNITY OUTREACH Judy Sorensen MD LAB_1 Performing Organization Address City/State/ZIP Code Phon e Number HP CONVERSION documented in this encounter Visit Diagnoses Not on filedocumented in this encounter Care Teams Director Equipment Relationship Specialty Start Date End Date Judy Sorensen MD PCP - General 12/18/10 05/02/18 [address] [place] [address] documented as of this encounter
--- OUTSIDE RECORDS SUMMARY | 2022-05-04 09:24 | XMS_ITS | Encounter Summary ---
:1940 Author Organization [employer] Address [address] [place] [address] Care Team Providers Name Role Phone Judy Sorensen MD Primary Care Provider Encounter Details Date Type Department Care Team Description 06/27/2006 [facility] Carlee Feldman MD [facility] [address] [place] [address] [place] [address] [phone] Social History Tobacco Use Types Packs/Day Years [...] 1427 Note Time: 06/27/06 0001 Status: Signed Vehicle Damage Appraiser: Carlee Gracia MD (Physician) NAME: SHU OLIVA MR: [id number] ACCT: [id number] VISIT: [id number] DICTATING CLINICIAN: CARLEE GRACIA MD JOB: [id number] LOC: 3588 CLINIC PROGRESS NOTE DATE OF [...] controlled with medications. She does have a 13-bwrk-wkxo history of smoking. OBJECTIVE: VS: BP: 130/70. [...] PLAN: See Assessment. CC: JUDY LARSEN MD JMM:[id number] C: 06/28/06 15:27 DOCUMENT: [id number] documented in this encounter Plan of Treatment Not on filedocumented as of this encounter Visit Diagnoses Not on filedocumented in this encounter Care Teams Stripe Matcher Relationship Specialty Start Date End Date Judy Sorensen MD PCP - General 12/18/10 05/02/18 [address] [place] [address] documented as of this encounter
--- OUTSIDE RECORDS SUMMARY | 2022-05-04 09:24 | XMS_ITS | Encounter Summary ---
:1940 Author Organization [employer] Address [address] [place] [address] Care Team Providers Name Role Phone Unassigned, Provider Primary Care Provider Unavailable Encounter Details Date Type Department Care Team Description 05/24/2006 Hospital Encounter ZOROASTRIANISM CONVERSION Judy Sorensen MD [address] [place], [place] [address] (Wo rk) Social History Tobacco Use Types [...] CDT procedure are in the results section. [facility] LOWER Routine 05/24/2006 3:08 PM Results f or this EXTREMITY PHYSIO CDT procedure a re in STUDY WITH EXERCISE the resu lts section. 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 <50% stenosis within the [...] on filedocumented in this encounter Care Teams Organ Pipe Finisher Relationship Specialty Start Date End Date Unassigned, Provider PCP - General 08/25/00 12/17/[address] [place] [address] documented as of this encounter
--- OUTSIDE RECORDS SUMMARY | 2022-05-04 09:24 | XMS_ITS | Encounter Summary ---
:1940 Author Organization [employer] Address [address] [place] [address] Care Team Providers Name Role Phone Unassigned, Provider Primary Care Provider Unavailable Encounter Details Date Type Department Care Team Description 07/04/2006 Hospital Encounter JAINISM CONVERSION Jean Claude Mckinley MD [address] [place] [address] (Wo rk) Social History Tobacco Use Types [...] right significantly wo rse than the left. 892584/pb Dictating KEVIN VALVERDE Radiologist Narrative 07/04/2006 1:24 [...] right significantly wo rse than the left. 387807/pb Dictating KEVIN VALVERDE Radiologist Jeremy Mckinley MD [...] right significantly wo rse than the left. 964351/pb Dictating KEVIN VALVERDE Radiologist Narrative 07/04/2006 1:23 [...] right significantly wo rse than the left. 918225/pb Dictating KEVIN VALVERDE Radiologist Jeremy Mckinley MD [...] right significantly wo rse than the left. 399826/pb Dictating KEVIN VALVERDE Radiologist Narrative 07/04/2006 1:19 [...] internal iliac arteries are patent. External iliac adin ry is small in caliber but patent. [...] right significantly wo rse than the left. 502578/pb Dictating KEVIN VALVERDE Radiologist Jeremy Mckinley MD RAD MRI documented in this encounter Visit Diagnoses Not on filedocumented in this encounter Care Teams Simulation Analyst Relationship Specialty Start Date End Date Unassigned, Provider PCP - General 08/25/00 12/17/[address] [place] [address] documented as of this encounter
--- OUTSIDE RECORDS SUMMARY | 2022-05-04 09:24 | XMS_ITS | Encounter Summary ---
:1940 Author Organization [facility] [employer] Address [address] [place] [address] Care Team Providers Name Role Phone Judy Sorensen MD Primary Care Provider Encounter Details Date Type Department Care Team Description 09/24/2004 PN Conversion Only MOSQUE CONVERSION Social History Tobacco Use Types Packs/Day Years Used Date Smoking Tobacco: Never Assessed Sex Assigned at Date Recorded Not on file documented as of this encounter Plan of Treatment Not on filedocumented as of this encounter Visit Diagnoses Not on filedocumented in this encounter Care Teams Creasing Machine Operator Relationship Specialty Start Date End Date Judy Sorensen MD PCP - General 12/18/10 05/02/18 [address] [place] [address] documented as of this encounter
--- OUTSIDE RECORDS SUMMARY | 2022-05-04 09:24 | XMS_ITS | Encounter Summary ---
:1940 Author Organization [employer] Address [address] [place] [address] Care Team Providers Name Role Phone Unassigned, Provider Primary Care Provider Unavailable Encounter Details Date Type Department Care Team Description 09/29/2004 Hospital Encounter [facility] [address] Julius Mcneil MD [address] [place], [place] [id number] Endoscopy Julius Andersen MD [address] [place], [place] [address] [facility] [place] [address] Social History Tobacco Use Types [...] 0158 Note Time: 09/29/04 1445 Status: Signed Beater Worker Helper: Julius Andersen MD (Physician) Patient Name: Shu [...] oxygen saturations were monitored continuously. The colonoscope [id number] was introduced through the anus and advanced [...] or nsaids for two weeks. CPT4 Code(s): 75818, Colonoscopy, flexible, proximal to splenic flexure; with removal of tumor(s), polyp(s), or other lesion(s) by snare technique 83546, 51, Colonoscopy, flexible, proximal to splenic flexure; with biopsy, single or multiple ICD9 Code(s): 211.3, BENIGN NEOPLASM OF COLON V12.72, PERSONAL HISTORY OF COLONIC POLYPS The codes documented in this report are preliminary and upon instructor substitute cosmetology review may be revised to meet current compliance requirements. Julius Andersen MD Signed Date: 09/29/2004 3:26 PM This document has been electronically signed. Note initiated on 09/29/2004 2:45 PM NDSKEEPING YARDMAN documented in this encounter Plan of Treatment Not on filedocumented as of this encounter Procedures Procedure Name Priority Date/Time Associated Diagnosis Comme nts SURGICAL PATH, PARK Routine 09/29/2004 4:16 PM Re sults for this NICOLLET GROUNDSKEEPING YARDMAN procedure are i n the results section. documented in this encounter Results Pathology Report (09/29/2004 4:16 PM GROUNDSKEEPING YARDMAN) [facility] gist Method Time Signature Surgical SEE TEXT No normal HP CONVERSION Pathology range Comment: Patient: SHU OLIVA ?S URGICAL PATHOLOGY REPORT Pathology # ??[id number] ?Date Obtained: ? Date Received: DIAGNOSIS: A) ??Transverse colon polyp, biopsy- ?1. ??Adenomatous polyp. ?2. ??No evidence of severe dysplas ia or invasive malignancy. B) ??Sigmoid colon polyp, biopsies- ?1. ??Hyperplastic polyp. ?2. ??No evidence of dysplasia or m alignancy. ?Jose Miller MD ?(electronic signature) MDM/MDM/dke Date of Report: 09/30/04 Pathology # ??[id number] ?Date Obtained: ? Date Received: ORGAN/TISSUE SITE: [...] / / Volume Laterality 09/29/2004 4:16 PM GROUNDSKEEPING YARDMAN Julius Andersen MD LAB_1 Performing Organization Address City/State/ZIP Code Phon e Number HP CONVERSION documented in this encounter Visit Diagnoses Not on filedocumented in this encounter Care Teams Bed Rubber Relationship Specialty Start Date End Date Unassigned, Provider PCP - General 08/25/00 12/17/[address] [place] [address] documented as of this encounter
--- OUTSIDE RECORDS SUMMARY | 2022-05-04 09:24 | XMS_ITS | Encounter Summary ---
:1940 Author Organization [employer] Address [address] [place] [address] Care Team Providers Name Role Phone Judy Sorensen MD Primary Care Provider Reason for Visit Reason Comments Other Encounter Details Date Type Department Care Team Description 03/10/2006 Telephone [facility], Message Other [address] [place] [address] Social History Tobacco Use Types Packs/Day Years Used Date Smoking Tobacco: Never Assessed Sex Assigned at Date Recorded Not on file documented as of this encounter Progress Notes Mynor Pruitt - 03/10/2006 8:14 AM CDT Phone Note filed by Mynor Pruitt at 01/04/1102 Author: Mynor Pruitt Service: (none) Author Type: (none) Filed: 01/04/11 0535 Note Time: 03/10/06813 Status: Signed Swimmer: Alisa Conversion this pt showed up downstairs [...] lab Acknowledged by MARKUS CORLEY on 9:17am VISION SERVICE ENGINEER documented in this encounter Plan of Treatment Not on filedocumented as of this encounter Visit Diagnoses Not on filedocumented in this encounter Care Teams Gastroenterology Teacher Relationship Specialty Start Date End Date Judy Sorensen MD PCP - General 12/18/10 05/02/18 [address] [place] [address] documented as of this encounter
--- OUTSIDE RECORDS SUMMARY | 2022-05-04 09:24 | XMS_ITS | Encounter Summary ---
:1940 Author Organization [employer] Address [address] [address] Care Team Providers Name Role Phone Judy Sorensen MD Primary Care Provider Encounter Details Date Type Department Care Team Description 05/16/2006 Office Visit [facility] Gwen Sorensen MD [address] [address] [place] [address] [phone] Social History Tobacco Use Types Packs/Day Years [...] 1339 Note Time: 05/16/06 0001 Status: Signed Rope Walker: Judy Larsen MD (Physician) NAME: SHU OLIVA MR: [id number] ACCT: [id number] VISIT: [id number] DICTATING CLINICIAN: JUDY LARSEN MD JOB: [id number] LOC: 502 CLINIC PROGRESS NOTE DATE OF [...] a patient with multiple risk factors including nursing home tobacco use, history of noncritical single vessel coronary artery disease, hypertension, and hyperlipidemia. PLAN: Ankle brachial index duplex carotid ultrasound. Unless completely normal will plan vascular surgery consultation once findings are known. Initiate tobacco cessation planning with Zyban 150 mg p.o. b.i.d. Discussed means to achieve tobacco cessation. Offered the quit plan which patient declined. [facility]:[id number] C: 05/17/06 23:39 DOCUMENT: [id number] documented in this encounter Plan of Treatment Not on filedocumented as of this encounter Visit Diagnoses Not on filedocumented in this encounter Care Teams Assistant Production Manager Relationship Specialty Start Date End Date Judy Sorensen MD PCP - General 12/18/10 05/02/18 [address] [place] [address] documented as of this encounter
--- OUTSIDE RECORDS SUMMARY | 2022-05-04 09:24 | XMS_ITS | Encounter Summary ---
:1940 Author Organization [employer] Address [address] [place] [address] Care Team Providers Name Role Phone Judy Sorensen MD Primary Care Provider Encounter Details Date Type Department Care Team Description 06/25/2005 Office Visit [facility] Aleah Oshea PA-C [address] [place] [address] [place], [place] [address] (Wo rk) Social History Tobacco Use Types [...] signed by Aleah Oshea PA-C at 07/07/05 0674 Author: Aleah Oshea PA-C Service: (none) Author Type: Physician Gas Collection System Operator Filed: 01/07/11 0703 Note Time: 06/25/05 0001 Status: Signed Federal Appellate Clerk: Aleah Oshea PA-C (Physician Gas Collection System Operator) NAME: SHU OLIVA MR: [id number] ACCT: [id number] VISIT: [id number] DICTATING CLINICIAN: ALEAH OSHEA PA-C JOB: [id number] CLINIC PROGRESS NOTE DATE OF VISIT: 06/25/2005 [...] needed if questions develop or problems persist. TJL:[id number] C: 06/25/05 19:48 DOCUMENT: [id number] documented in this encounter Plan of Treatment [...] on filedocumented in this encounter Care Teams Mangle Feeder Relationship Specialty Start Date End Date Judy Sorensen MD PCP - General 12/18/10 05/02/18 [address] [place] [address] documented as of this encounter
--- OUTSIDE RECORDS SUMMARY | 2022-05-04 09:24 | XMS_ITS | Encounter Summary ---
:1940 Author Organization [employer] Address [address] [place] [address] Care Team Providers Name Role Phone Judy Sorensen MD Primary Care Provider Reason for Visit Reason Comments Other Encounter Details Date Type Department Care Team Description 08/23/[address] [facility], Message Other [address] [place], [place] [address] Social History Tobacco Use Types Packs/Day Years Used Date Smoking Tobacco: Never Assessed Sex Assigned at Date Recorded Not on file documented as of this encounter Progress Notes Center, Message - 08/23/2005 10:54 AM CST Phone Note filed by [employer] at 01/03/11 7376 Author: [employer] Service: (none) Author Type: (none) Filed: 01/03/117 Note Time: 08/23/051053 Status: Signed Certified Medical Assistant: Message Center Patient left voicemail. She is switching to a new pharmacy. Wants RX for Lipitor 40 mg daily, Atenolol 25 mg daily and Ranitidine 300 mg daily prn called to [facility] at [phone]. Patient would like a 90 day supply of each medication. Please call patient when this has been done. Call back phone is [phone]. Created on 23Aug2005 10:54am by YVES MANSFIELD [...] lab Acknowledged by MARKUS CORLEY on 3:15pm VASCULAR documented in this encounter Plan of Treatment Not on filedocumented as of this encounter Visit Diagnoses Not on filedocumented in this encounter Care Teams Mothers Helper Relationship Specialty Start Date End Date Judy Sorensen MD PCP - General 12/18/10 05/02/18 [address] [place] [address] documented as of this encounter
--- OUTSIDE RECORDS SUMMARY | 2022-05-04 09:24 | XMS_ITS | Encounter Summary ---
:1940 Author Organization [employer] Address [address] [place] [address] Care Team Providers Name Role Phone Judy Sorensen MD Primary Care Provider Encounter Details Date Type Department Care Team Description 07/05/2004 PN Conversion Only [place] [address] [place] [address] [place], [place] [address] (Wo rk) Social History Tobacco Use Types [...] Results Pap Smear (07/05/2004 8:31 AM CDT) [facility] Method Time Signature PAP Smear SEE TEXT No normal HP CONVERSION Liquid Based range Comment: Patient: SHU OLIVA ? CERVICAL CYTOLOGY REPORT Pathology # ??[id number] ?Date Obtained: ? Date Received: CYTOLOGIC IMPRESSION: [...] on filedocumented in this encounter Care Teams Water Resources Project Manager Relationship Specialty Start Date End Date Judy Sorensen MD PCP - General 12/18/10 05/02/18 [address] [place] [address] documented as of this encounter
--- OUTSIDE RECORDS SUMMARY | 2022-05-04 09:24 | XMS_ITS | Encounter Summary ---
:1940 Author Organization [employer] Address [address], [place] [address] Care Team Providers Name Role Phone Judy Sorensen MD Primary Care Provider Encounter Details Date Type Department Care Team Description 12/02/2005 Office Visit [facility] Gwen Sorensen MD [address] [address] [place] [address] [phone] Social History Tobacco Use Types Packs/Day Years Used Date Smoking Tobacco: Never Assessed Sex Assigned at Date Recorded Not on file documented as of this encounter Last Filed Vital Signs Vital Sign Reading Time Taken Comments Blood Pressure 160/68 12/02/2005 2:07 PM RESTORATIVE COORDINATOR Pulse 80 12/02/2005 2:07 PM RESTORATIVE COORDINATOR Temperature - - Respiratory Rate - - Oxygen Saturation - - Inhaled Oxygen Concentration - - Weight 60.8 kg (133 lb 15.9 oz) 12/02/2005 2:07 PM RESTORATIVE COORDINATOR C: 60.8kg Height - - Body Mass Index - - documented in this encounter Progress Notes Judy Larsen MD - 12/02/2005 12:01 AM CST Progress Notes signed by Judy Larsen MD at 12/06/055 Author: Judy Larsen MD Service: (none) Author Type: Physician Filed: 01/07/11 1019 Note Time: 12/02/05 0001 Status: Signed Horse Trainer: Judy Larsen MD (Physician) NAME: SHU OLIVA MR: [id number] ACCT: [id number] VISIT: [id number] DICTATING CLINICIAN: JUDY LARSEN MD JOB: [id number] CLINIC PROGRESS NOTE DATE OF VISIT: 12/02/2005 SUBJECTIVE: : 1940. A 64-year-old smoker, with a past history of angiogram showing moderate degree of nonobstructive plaque, single vessel disease, comes in for followup of hypertension and refill of her current medications. She takes atenolol and Lipitor per [facility]. [facility]. Continues to smoke, would [...] been very stable the last several years. [facility]:[id number] C: 12/03/05 13:09 DOCUMENT: [id number] ORATIVE COORDINATOR documented in this encounter Plan of Treatment Not on filedocumented as of this encounter Visit Diagnoses Not on filedocumented in this encounter Care Teams Scientific Programmer Analyst Relationship Specialty Start Date End Date Judy Sorensen MD PCP - General 12/18/10 05/02/18 [address] [place] [address] documented as of this encounter
--- OUTSIDE RECORDS SUMMARY | 2022-05-04 09:24 | XMS_ITS | Encounter Summary ---
:1940 Author Organization [email or web address] Address [address] [place] [address] Care Team Providers Name Role Phone Judy Sorensen MD Primary Care Provider Encounter Details Date Type Department Care Team Description 06/25/2005 PN Conversion Only [facility]BO[facility]SIO [address] [address] [place] [address] Social History Tobacco Use Types Packs/Day Years Used Date Smoking Tobacco: Never Assessed Sex Assigned at Date Recorded Not on file documented as of this encounter Plan of Treatment Not on filedocumented as of this encounter Visit Diagnoses Not on filedocumented in this encounter Care Teams Car Seat Coverer Relationship Specialty Start Date End Date Judy Sorensen MD PCP - General 12/18/10 05/02/18 [address] [place], [place] [id number] documented as of this encounter
--- OUTSIDE RECORDS SUMMARY | 2022-05-04 09:24 | XMS_ITS | Encounter Summary ---
:1940 Author Organization [employer] Address [address] [place] [address] Care Team Providers Name Role Phone Judy Sorensen MD Primary Care Provider Encounter Details Date Type Department Care Team Description 07/12/2004 PN Conversion Only [place] [address] [place] [address] [place], [place] [address] (Wo rk) Social History Tobacco Use Types [...] Results ALT (SGPT) (07/12/2004 8:10 AM CDT) [facility] gist Method Time Signature Alanine 37 0 - 65 HP CONVERSION Aminotransferase U/L Specimen (Source) Anatomical Collection Method Collection Time Re ceived Time Location / / Volume Laterality 07/12/2004 8:10 AM CDT Judy Sorensen MD LAB_1 Performing Organization Address City/State/ZIP Code Phon e Number HP CONVERSION AST (07/12/2004 8:10 AM CDT) [facility] Method Time Signature Aspartate 17 0 - [...] Judy Sorensen MD LAB_1 Performing Organization Address City/[facility]/ZIP Code Phon e Number HP CONVERSION (ABNORMAL) Lipid Panel and Direct LDL(If Needed) (07/12/2004 8:10 AM CDT) [facility] Method Time Signature Cholesterol/HDL 2.9 No normal [...] on filedocumented in this encounter Care Teams Dictating Machine Transcriber Relationship Specialty Start Date End Date Judy Sorensen MD PCP - General 12/18/10 05/02/18 [address] [place] [address] documented as of this encounter
--- OUTSIDE RECORDS SUMMARY | 2022-05-04 09:24 | XMS_ITS | Encounter Summary ---
:1940 Author Organization [employer] Address [address] [place] [address] Care Team Providers Name Role Phone Judy Sorensen MD Primary Care Provider Encounter Details Date Type Department Care Team Description 07/20/2005 PN Conversion Only [facility] [address] [place] [address] Social History Tobacco Use Types Packs/Day Years Used Date Smoking Tobacco: Never Assessed Sex Assigned at Date Recorded Not on file documented as of this encounter Plan of Treatment Not on filedocumented as of this encounter Procedures Procedure Name Priority Date/Time Associated Diagnosis Comme nts MM MAMMOGRAM Routine 07/20/2005 8:43 AM Results f or this SCREENING W CAD SEALING MACHINE OPERATOR procedure ar e in the results section. documented in this encounter Results MM Mammogram Screening W CAD (07/20/2005 8:43 AM SEALING MACHINE OPERATOR) Anatomical Region Laterality Modality Breast Bilateral Mammography Specimen (Source) Anatomical Location Collection Method / Collectio n Time Received Time / Laterality Volume Impressions 07/25/2005 11:43 AM SEALING MACHINE OPERATOR : BILATERAL BREASTS - Category 1 Negative, no evidence of malignancy. Nor mal interval follow-up is recommended in 12 months. OVERALL ASSESSMENT - NEGATIVE END OF IMPRESSION Dictating RAFI LEVI RADIOLOGIST Narrative 07/25/2005 11:43 AM SEALING MACHINE OPERATOR Comparison is made to films from 07/12/2004 [...] on filedocumented in this encounter Care Teams Firmware Test Engineer Relationship Specialty Start Date End Date Judy Sorensen MD PCP - General 12/18/10 05/02/18 [address] [place], [place] [id number] documented as of this encounter
--- OUTSIDE RECORDS SUMMARY | 2022-05-04 09:25 | XMS_ITS | Encounter Summary ---
:1940 Author Organization [employer] Address [address] [place] [address] Care Team Providers Name Role Phone Unassigned, Provider Primary Care Provider Unavailable Encounter Details Date Type Department Care Team Description 08/03/2002 Office Visit Urgent Care [facility] [place] [address] [place], [place] [address] Social History Tobacco Use Types Packs/Day Years Used Date Smoking Tobacco: Never Assessed Sex Assigned at Date Recorded Not on file documented as of this encounter Last Filed Vital Signs Vital Sign Reading Time Taken Comments Blood Pressure 130/78 08/03/2002 12:30 PM FLAT POLISHER Pulse 66 08/03/2002 12:30 PM FLAT POLISHER Temperature 36.6 ??C (97.8 ??F) 08/03/2002 12:30 PM FLAT POLISHER Respiratory Rate 12 08/03/2002 12:30 PM FLAT POLISHER Oxygen Saturation - - Inhaled Oxygen Concentration - - Weight 62.6 kg (138 lb) 08/03/2002 12:30 PM FLAT POLISHER Height - - Body Mass Index - - documented in this encounter Progress Notes 08/03/2002 12:30 PM FLAT POLISHER Room # n/a Rooming time: 12:41 PM [...] important to you? NO. Resources given? NO. fitness floor attendant offered -NOT APPLICABLE. Health Education given -NO. Primary provider: Provider Unassigned Contact phone number [phone] (home) Alternate phone number Nata Galdamez RN [...] Cerumen Impaction IN SUMMARY: CERUMEN IMPACTION cc: POLISHER documented in this encounter Plan of Treatment Not on filedocumented as of this encounter Visit Diagnoses Diagnosis Impacted cerumen documented in this encounter Care Teams Optic Fibre Drawer Relationship Specialty Start Date End Date Unassigned, Provider PCP - General 08/25/00 12/17/[address] [place] [address] documented as of this encounter
--- OUTSIDE RECORDS SUMMARY | 2022-05-04 09:25 | XMS_ITS | Encounter Summary ---
:1940 Author Organization [facility] Address [address] [place] [address] Care Team Providers Name Role Phone Judy Sorensen MD Primary Care Provider Encounter Details Date Type Department Care Team Description 01/13/1993 PN Conversion Only RELIGION CONVERSION Judy Sorensen MD [address] [place] [address] (Wo rk) Social History Tobacco [...] Default Interface Order (01/12/1993 3:31 PM CDT) [facility] Method Time Signature Surgical See Detail [...] on filedocumented in this encounter Care Teams Registration Officer Relationship Specialty Start Date End Date Judy Sorensen MD PCP - General 12/18/10 05/02/18 [address] [place] [address] documented as of this encounter
--- OUTSIDE RECORDS SUMMARY | 2022-05-04 09:25 | XMS_ITS | Encounter Summary ---
:1940 Author Organization [employer] Address [address] [place] [address] Care Team Providers Name Role Phone Unassigned, Provider Primary Care Provider Unavailable Encounter Details Date Type Department Care Team Description 10/28/2002 Hospital Encounter [facility] CONVERSION Judy Sorensen MD [address] [place], [place] [address] (Wo rk) Social History Tobacco Use Types [...] AM Resul ts for this WHOLE BODY ASSISTANT GOLF PROFESSIONAL procedure are i n the results section. documented in this encounter Results N/O NM Bone Scan Whole Body (10/28/2002 9:30 AM ASSISTANT GOLF PROFESSIONAL) Anatomical Region Laterality Modality Skeletal Other Specimen (Source) Anatomical Location Collection Method / Collectio n Time Received Time / Laterality Volume Impressions 10/28/2002 9:30 AM ASSISTANT GOLF PROFESSIONAL : ??Negative whole body bone scan. Lak C: 10/28/02 2:5 1:30 PM Narrative 10/28/2002 9:30 AM ASSISTANT GOLF PROFESSIONAL Injected dose 27.3 mCi Tc99m MDP lot #[id number]. There are no scintigraphic abnormalities to suggest [...] filedocumented in this encounter Care Teams Gastroenterology Technician Relationship Specialty Start Date End Date Unassigned, Provider PCP - General 08/25/00 12/17/[address] [place] [address] documented as of this encounter
--- OUTSIDE RECORDS SUMMARY | 2022-05-04 09:25 | XMS_ITS | Encounter Summary ---
:1940 Author Organization [employer] Address [address] [place] [address] Care Team Providers Name Role Phone Unavailable Primary Care Provider Unavailable Encounter Details Date Type Department Care Team Description 12/31/1998 - Hospital Encounter [facility] 01/01/1999 [facility] [address] [place] [address] Social History Tobacco Use Types Packs/Day Years [...] 0949 Note Time: 01/01/99 0000 Status: Signed Commercial Reporter: Derek Schultz MD (Physician) [id number][facility] QCQCQC DISCHARGE SUMMARY ADMITTING DIAGNOSIS: DISCHARGE [...] and cardiac exam were all normal. HISTORY: [id number]-old woman who is admitted to [facility] with chest pain suspicious for unstable angina. [...] DEREK SCHULTZ MD CC: VÍCTOR LARSEN MD TJD:[id number] C: DOCUMENT: [id number] END OF RECORD: DISPATCHER documented in this encounter Progress Notes Derek Schultz MD - 12/31/1998 12:01 AM CDT Procedures signed by [employer] at 08/25/99 1200 Author: Derek Schultz MD Service: (none) Author Type: Physician Filed: 01/05/11 0948 Note Time: 12/31/98 0000 Status: Signed Commercial Reporter: Derek Schultz MD (Physician) [id number][facility] QCQCQC CARDIAC CATHETERIZATION DATE OF PROCEDURE: 12/31/1998 PREPROCEDURE DIAGNOSIS: Anginoid chest pain, rule out myocardial infarction. POSTPROCEDURE DIAGNOSIS: 1. Plaquing of coronary arteries, with moderate circumflex lesion and normal left ventricular function. 2. Moderate right iliac stenosis. PROCEDURE: Left heart catheterization and angiography. Fluroscopy time was 3.9 minutes, with 91 cc of Op-Ray dye used, 5 Welsh catheters. A left 3.5 catheter was used [...] and optimize risk factors. DEREK SCHULTZ MD TJD:[id number] C: DOCUMENT: [id number] END OF RECORD: DISPATCHER documented in this encounter Miscellaneous Notes Miscellaneous - Derek Schultz MD - 01/01/1999 1:57 PM CDT ICD-9-CM ICD-9-CM Narrative description Code ======== DIAGNOSES Principal: CHEST PAIN NOS 786.50 Secondary: ANGINA PECTORIS NEC/NOS 413.9 TOBACCO USE DISORDER 305.1 CORONARY ATHEROSCLEROSIS;WILTON CORONARY VESSEL 414.01 ATHEROSCLEROSIS,WILTON ARTERIES OF EXTREM.,UNSPEC. 440.20 PROCEDURES Provider Date [...] Derek Schultz MD LAB_1 Performing Organization Address City/[facility] Code Phon e Number HP CONVERSION Conversion [...] Derek Schultz MD LAB_1 Performing Organization Address City/[facility] Phon e Number HP CONVERSION (ABNORMAL) Conversion Default Interface Order (01/01/1999 5:00 AM CDT) Patholo gist Method Time Signature LDL Calculated 151 (HH) 66 129mg/d HP CONVERSION L Specimen (Source) Anatomical Collection Method Collection Time Re ceived Time Location / / Volume Laterality 01/01/1999 5:00 AM CDT Derek Schultz MD LAB_1 Performing Organization Address [facility] [place]/[facility] Phon e Number HP CONVERSION Conversion Default Interface Order (01/01/1999 5:00 AM CDT) P athologist Signature Magnesium 1.8 1.5 2.4mg/d HP CONVERSION L Specimen (Source) Anatomical Collection Method Collection Time Re ceived Time Location / / Volume Laterality 01/01/1999 5:00 AM CDT Derek Schultz MD LAB_1 Performing Organization Address [facility] [place]/[facility] Phon e Number HP CONVERSION documented in this encounter Visit Diagnoses Not on filedocumented in this encounter
--- OUTSIDE RECORDS SUMMARY | 2022-05-04 09:25 | XMS_ITS | Encounter Summary ---
:1940 Author Organization [facility] Address [address], [place] [address] Care Team Providers Name Role Phone Unassigned, Provider Primary Care Provider Unavailable Encounter Details Date Type Department Care Team Description 01/26/2001 Orders Only Unassigned, Prov ider [address] [place] [address] Social History Tobacco Use Types Packs/Day Years Used Date Smoking Tobacco: Never Assessed Sex Assigned at Date Recorded Not on file documented as of this encounter Plan of Treatment Not on filedocumented as of this encounter Visit Diagnoses Not on filedocumented in this encounter Care Teams Insurance Examiner Relationship Specialty Start Date End Date Unassigned, Provider PCP - General 08/25/00 12/17/10 [address] [place] [address] documented as of this encounter
--- OUTSIDE RECORDS SUMMARY | 2022-05-04 09:25 | XMS_ITS | Encounter Summary ---
:1940 Author Organization [facility] Address [address], [place] [address] Care Team Providers Name Role Phone Judy Sorensen MD Primary Care Provider Encounter Details Date Type Department Care Team Description 07/05/2004 Office Visit [facility] Gwen Sorensen MD [address] [address] [place] [address] [phone] Social History Tobacco Use Types Packs/Day Years Used Date Smoking Tobacco: Never Assessed Sex Assigned at Date Recorded Not on file documented as of this encounter Progress Notes Judy Larsen MD - 07/05/2004 12:01 AM CDT H&P signed by Judy Larsen MD at 09/19/04 1801 Author: Judy Larsen MD Service: (none) Author Type: Physician Filed: 01/07/11 0028 Note Time: 07/05/04 0001 Status: Signed Hemmer Chainstitch: Judy Larsen MD (Physician) NAME: SHU OLIVA MR: [id number] ACCT: [id number] VISIT: [id number] DICTATING CLINICIAN: JUDY LARSEN MD JOB: [id number] CLINIC PHYSICAL DATE OF VISIT: 07/05/2004 SUBJECTIVE: [...] pathology and exam was done at a [facility] facility and is not available in [...] Counseled regarding cessation efforts and available assistance. [facility]:[id number] C: 07/15/04 08:45 DOCUMENT: [id number] ER CUTTER documented in this encounter Plan of [...] on filedocumented in this encounter Care Teams Multi Needle Machine Operator Relationship Specialty Start Date End Date Judy Sorensen MD PCP - General 12/18/10 05/02/18 [address] [place] [address] documented as of this encounter
--- OUTSIDE RECORDS SUMMARY | 2022-05-04 09:25 | XMS_ITS | Encounter Summary ---
:1940 Author Organization [facility] Address [address] [place] [address] Care Team Providers Name Role Phone Víctor Sorensen MD Primary Care Provider Encounter Details Date Type Department Care Team Description 09/05/2003 PN Conversion Only [place] [facility] Nurse, [facility] [address] [place], [place] [id number] Social History Tobacco Use Types Packs/Day Years Used Date Smoking Tobacco: Never Assessed Sex Assigned at Date Recorded Not on file documented as of this encounter Progress Notes Víctor Larsen MD - 09/01/2003 12:01 AM CST Progress Notes signed by Víctor Larsen MD at 01/17/04 1732 Author: Víctor Larsen MD Service: (none) Author Type: Physician Filed: 01/06/11 1703 Note Time: 09/01/03 0001 Status: Signed Cork Wirer: Víctor Larsen MD (Physician) NAME: SHU OLIVA MR: [id number] ACCT: [id number] VISIT: [id number] DICTATING CLINICIAN: VÍCTOR LARSEN MD JOB: [id number] CLINIC PROGRESS NOTE DATE OF VISIT: 09/01/2003 [...] and ALT in 3 months. TT: CT: [facility]:[id number] C: 09/03/03 07:44 DOCUMENT: [id number] Phone Note, Clinician - 02/13/2003 12:01 AM CDT Phone Note filed by Clinician Phone Note at 01/04/11 112 Author: Clinician Phone Note Service: (none) Author Type: Resource Filed: 01/04/11 1122 Note Time: 02/13/03 0001 Status: Signed Cork Wirer: Clinician Phone Note (Resource) TO: VÍCTOR LARSEN FROM: SRIKANTH ZAMBRANO LPN [id number] * PROVIDER MESSAGE: ROUTINE * 02/13/03 08:28AM * *WITHIN 4 HOURS * MESSAGE: PLS ADVICE * HOME PHONE:[phone] * SUBJECTIVE: * CONTACT PHONE:[phone] * CHIEF CONCERN... Kayleen IS CALLING, STATES [...] CALL BY SRIKANTH ZAMBRANO LPN 02/13/2003 08:24AM [id number] ADDENDUM: <> 02/13/2003 09:43AM by AYESHA MANSFIELD LPN: Per Dr. Larsen a Prescription for a Medrol Dose Pack, take as directed, was called to patient's pharmacy ([facility] at [phone]). Patie nt contacted by Dr. Larsen. Víctor Garay MD - 02/11/2003 12:01 AM CDT Progress Notes signed by Víctor Larsen MD at 06/02/03 1613 Author: Víctor Larsen MD Service: (none) Author Type: Physician Filed: 01/06/11 1349 Note Time: 02/11/03 0001 Status: Signed Cork Wirer: Víctor Larsen MD (Physician) NAME: SHU OLIVA MR: [id number] ACCT: [id number] VISIT: [id number] DICTATING CLINICIAN: VÍCTOR LARSEN MD JOB: [id number] CLINIC PROGRESS NOTE DATE OF VISIT: 02/11/2003 SUBJECTIVE: Shu comes in with hives, swelling in thee lower lip, itchiness over her hairline, particular itchiness in the pubic area. She is a little light headed from nausea. This all started yesterday. She is here on the Monday weekend. On Monday she was at a [employer], ate some buffalo wings that are [...] time. Zocor first, Ranitidine second. TT: CT: [facility]:[id number] C: 02/21/03 04:58 DOCUMENT: [id number] Víctor Larsen MD - 10/16/2002 12:01 AM CST Progress Notes signed by at 10/23/02 0950 Author: Víctor Larsen MD Service: (none) Author Type: Physician Filed: 01/06/11 1144 Note Time: 10/16/02 0001 Status: Signed Cork Wirer: Víctor Larsen MD (Physician) IMPRESSION: Unintended weight loss. Left mid arm pain. SUBJECTIVE: Shu is a 61-year-old who comes in because of unexplained perceived weight loss. She had thought that she weighed 138 pounds at her physical last summer. Our record shows 134. At [place], she stepped on her home scale and [...] Recheck if weight loss resumes. TT: CT: [facility]:[id number] C: DOCUMENT: [id number] L BATTERY PLATE ASSEMBLER Anton Burt MD - 08/06/2002 12:01 AM CST Progress Notes signed by at 11/09/02 0001 Author: Anton Burt MD Service: (none) Author Type: Physician Filed: 01/06/11 1007 Note Time: 08/06/02 0001 Status: Signed Cork Wirer: Anton Burt MD (Physician) IMPRESSION: Bronchitis. SUBJECTIVE: [...] will recheck with primary MD. TT: CT: [facility]:[id number] C: 08/06/02 21:49 DOCUMENT: [id number] Víctor Garay MD - 02/18/2002 12:01 AM CDT Progress Notes signed by Víctor Larsen MD at 03/05/02 1029 Author: Víctor Larsen MD Service: (none) Author Type: Physician Filed: 01/06/11 0609 Note Time: 02/18/02 0001 Status: Signed Cork Wirer: Víctor Larsen MD (Physician) IMPRESSION: Annual well [...] or organomegaly. No distention. Normal bowel sounds. BLEACHER KRAFT PULP: Pelvic exam: Normal EGBUS, vaginal vault and [...] further evaluation at this point. TT: CT: [facility]:[id number] C: DOCUMENT: [id number] Víctor Larsen MD - 12/09/1999 12:01 AM CST Progress Notes signed by Víctor Larsen MD at 12/10/99 1222 Author: Víctor Larsen MD Service: (none) Author Type: Physician Filed: 01/05/11 1519 Note Time: 12/09/99 0001 Status: Signed Cork Wirer: Víctor Larsen MD (Physician) IMPRESSION: Health maintenance [...] working with stable financial base although early longterm is out of the question financially. She [...] of osteoporosis and improvement of cardiovascular risks. [facility]:[id number] C: DOCUMENT: [id number] L BATTERY PLATE ASSEMBLER Dee Burt MD - 10/28/1999 12:01 AM CST Progress Notes signed by Dee Burt MD at 02/28/00 1012 Author: Dee Burt MD Service: (none) Author Type: Physician Filed: 01/05/11 1441 Note Time: 10/28/99 0001 Status: Signed Cork Wirer: Dee Burt MD (Physician) IMPRESSION: Ceruminosis. Otitis media. SUBJECTIVE: See today's URI form. OBJECTIVE: N/A ASSESSMENT: Ceruminosis. Otitis media. PLAN: Ear lavage. Jesus QUEZADA. CAM:[id number] C: DOCUMENT: [id number] Conversion, [facility] - 03/01/1999 12:01 AM CDT Phone Note signed by at 03/01/99 0748 Author: Alisa Rolle Service: (none) Author Type: (none) Filed: 01/05/11 1048 Note Time: 03/01/99 0001 Status: Signed Cork Wirer: Alisa Rolle IMPRESSION: Requesting call from Dr. Larsen TO: VÍCTOR LARSEN FROM: ISAURA CÁRDENAS RN [phone] * PROVIDER MESSAGE: RETURN * 03/01/1999 07:48AM * CALL REQUESTED * MESSAGE: Requesting call * HOME PHONE: [phone] * SUBJECTIVE: * CONTACT PHONE: [phone] * CHIEF CONCERN... Patient * Shu Oliva * calling, requesting a call * PHARMACY: [phone] * from Dr. Larsen. Patient * [facility] * received her letter of explanation [...] FOLLOWING... Call taken by ISAURA CÁRDENAS RN [phone] 03/01/1999 07:44 AM ADDENDUM: Víctor Garay MD - 02/16/1999 12:01 AM CDT Progress Notes signed by Víctor Larsen MD at 03/02/99 3585 Author: Víctor Larsen MD Service: (none) Author Type: Physician Filed: 01/05/11 1034 Note Time: 02/16/99 0001 Status: Signed Cork Wirer: Víctor Larsen MD (Physician) IMPRESSION: Chest pain, [...] up in six weeks to three months. [facility]:[id number] C: DOCUMENT: [id number] Derek Schultz MD - 02/10/1999 12:01 AM CDT Progress Notes signed by Derek Schultz MD at 06/17/99 0950 Author: Derek Schultz MD Service: (none) Author Type: Physician Filed: 01/05/11 1030 Note Time: 02/10/99 0001 Status: Signed Cork Wirer: Derek Schultz MD (Physician) IMPRESSION: Probably noncardiac discomfort. SUBJECTIVE: Shu Oliva is a 58-year-old woman who went to [employer] this morning, she had some pain in [...] 1005 Note Time: 01/18/99 0001 Status: Signed Cork Wirer: Víctor Larsen MD (Physician) IMPRESSION: Stable angina, early upper respiratory infection, gastritis. SUBJECTIVE: Shu comes in for follow-up of her unstable angina. She was admitted to [facility] on January 01. Had symptoms highly suggestive of heart disease, but a negative rule out myocardial infarction and was transferred for angiography to [facility] where a single lesion of [...] of 219 and HDL 49, triglycerides normal. [facility]:[id number] C: DOCUMENT: [id number] Paige Gardner MD - 12/30/1998 12:01 AM CDT Progress Notes signed by at 05/22/99 1508 Author: Paige Gardner MD Service: (none) Author Type: (none) Filed: 01/05/11 0946 Note Time: 12/30/98 0001 Status: Signed Cork Wirer: Alisa Conversion IMPRESSION: Unstable angina. 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 PLAN: The patient was transported to [facility] to be under the care of Dr. Welch, Family Medicine. She was in stable condition when she left with the paramedics. stw Sunil Grayson MD - 06/10/1998 12:01 AM CDT Progress Notes signed by Sunil Ansari MD at 09/03/98 1250 Author: Sunil Ansari MD Service: (none) Author Type: Physician Filed: 01/05/11 0616 Note Time: 06/10/98 0001 Status: Signed Cork Wirer: Sunil Ansari MD (Physician) IMPRESSION: Possible polyp at 15 cm. behind valve of [place]. SUBJECTIVE: Ms. Oliva comes in for a [...] PLAN: Recommended colonoscopy for further evaluation. [id number] L BATTERY PLATE ASSEMBLER Víctor Larsen MD - 05/26/1998 12:01 AM CDT Progress Notes signed by Víctor Larsen MD at 06/07/98 1333 Author: Víctor Larsen MD Service: (none) Author Type: Physician Filed: 01/05/11 0601 Note Time: 05/26/98 0001 Status: Signed Cork Wirer: Víctor Larsen MD (Physician) IMPRESSION: Tobacco abuse. 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 She is not using any accessory [...] signed by Víctor Larsen MD at 06/07/98 2853 Author: Víctor Larsen MD Service: (none) Author Type: Physician Filed: 01/05/11 0537 Note Time: 04/28/98 0001 Status: Signed Cork Wirer: Víctor Larsen MD (Physician) IMPRESSION: L5-S1 right [...] 0535 Note Time: 04/25/98 0001 Status: Signed Cork Wirer: Andie Dennis MD (Physician) IMPRESSION: Dizziness, most [...] by similar bilateral knees. Babinski is negative. Ktwnzy-vt-xwlc intact. Gait is intact. Sensation intact in [...] develop. Recheck if any concerns. gianluca Conversion, [facility] - 12/27/1997 12:01 AM CDT Progress Notes signed by at 07/06/98 192 Author: Alisa Conversion Service: (none) Author Type: (none) Filed: 01/05/11 0349 Note Time: 12/27/97 0001 Status: Signed Cork Wirer: Alisa Conversion IMPRESSION: 1. Sinusitis. 2. Bilateral [...] 20. ALLERGIES: None. MEDICATIONS: None. Denies using dqys-nrb-hrnfhvg medications for her facial symptoms. On examination, [...] promised to do that with Dr. Larsen. [facility] SCHEDULED RESOURCE: MICHELE BYRNES MD L BATTERY PLATE ASSEMBLER documented in this encounter Plan of Treatment Not on filedocumented as of this encounter Procedures Procedure Name Priority Date/Time Associated Comments Diagnosis XR HUMERUS Routine 10/16/2002 11:29 Results for this AM SMALL BATTERY PLATE ASSEMBLER procedure are i n the results section. COMPLETE BLOOD Routine 10/16/2002 11:17 Results f or this COUNT-NO DIFF AM SMALL BATTERY PLATE ASSEMBLER procedure are in the results section. PHOSPHORUS Routine 10/16/2002 11:17 Results for this AM SMALL BATTERY PLATE ASSEMBLER procedure are i n the results section. CALCIUM Routine 10/16/2002 11:17 Results for this AM SMALL BATTERY PLATE ASSEMBLER procedure are i n the results section. XR CHEST PA WITH Routine 08/06/2002 12:55 Results for this LATERAL PM SMALL BATTERY PLATE ASSEMBLER procedure are i n the results [...] Result s for this DIRECT LDL(IF NEEDED) SMALL BATTERY PLATE ASSEMBLER proced ure are in the results section. ALT (SGPT) Routine 11/09/2001 8:02 AM Results f or this SMALL BATTERY PLATE ASSEMBLER procedure are i n the results section. AST Routine 11/09/2001 8:02 AM Results f or this SMALL BATTERY PLATE ASSEMBLER procedure are i n the results section. MM MAMMOGRAM Routine 11/06/2001 10:30 Results for this SCREENING W CAD AM SMALL BATTERY PLATE ASSEMBLER procedure ar e in the results section. LIPID PANEL AND Routine 07/06/2000 8:09 AM Result s for this DIRECT LDL(IF NEEDED) CDT proced ure are in the results section. MM MAMMOGRAM Routine 12/31/1999 9:30 AM Results f or this SCREENING W CAD CDT procedure ar e in the results section. GLUCOSE Routine 12/09/1999 10:04 Results for this AM SMALL BATTERY PLATE ASSEMBLER procedure are i n the results section. THYROID STIMULATING Routine 12/09/1999 10:04 Resu lts for this HORMONE AM SMALL BATTERY PLATE ASSEMBLER procedure are i n the results section. COMPLETE BLOOD Routine 12/09/1999 10:04 Results f or this COUNT-NO DIFF, NO PLT AM SMALL BATTERY PLATE ASSEMBLER proced ure are in the results section. LIPID PANEL AND Routine 12/09/1999 10:04 Results for this DIRECT LDL(IF NEEDED) AM SMALL BATTERY PLATE ASSEMBLER proced ure are in the results section. AST Routine 12/09/1999 10:04 Results for this AM SMALL BATTERY PLATE ASSEMBLER procedure are i n the results section. PROTEIN, TOTAL Routine 12/09/1999 10:04 Results f or this (SERUM) AM SMALL BATTERY PLATE ASSEMBLER procedure are i n the results section. ALBUMIN Routine 12/09/1999 10:04 Results for this AM SMALL BATTERY PLATE ASSEMBLER procedure are i n the results section. ANATOMICAL PATH-C Routine 12/09/1999 5:39 AM Resu lts for this SMALL BATTERY PLATE ASSEMBLER procedure are i n the results [...] Resu lts for this UNILAT EXTRA VIEW SMALL BATTERY PLATE ASSEMBLER procedure are in the results section. MM [...] encounter Results XR Humerus (10/16/2002 11:29 AM SMALL BATTERY PLATE ASSEMBLER) Anatomical Region Laterality Modality Other Specimen (Source) Anatomical Location Collection Method / Collectio n Time Received Time / Laterality Volume Narrative 10/16/2002 11:29 AM SMALL BATTERY PLATE ASSEMBLER CLINICAL DATA: ?PAIN ?719.42 FINDINGS: ?NO ACUTE OR SIGNIFICANT BONE OR BRANDON INT ABNORMALITY. ??THERE IS ?SOME DEGENERATIVE CHANGE AT THE AC JOINT. ?[id number] [facility] TECH-ID : ? YMM TRANS-ID: ? EDR Procedure Note Ian Cotton - 11/26/2016Formatting o f this note might be different from the original. CLINICAL DATA: PAIN 719.42 FINDINGS: NO ACUTE OR SIGNIFICANT BONE OR JOINT A BNORMALITY. THERE IS [place] DEGENER[place]. [id number] [place] TECH-ID : YMM TRANS-ID: EDR Víctor Sorensen MD RAD GD Calcium (10/16/2002 11:17 AM SMALL BATTERY PLATE ASSEMBLER) athologist Signature Calcium 9.0 8.5 - 10.5 HP CONVERSION mg/dL Specimen (Source) Anatomical Collection Method Collection Time Re ceived Time Location / / Volume Laterality 10/16/2002 11:17 AM SMALL BATTERY PLATE ASSEMBLER Víctor Soresnen MD LAB_1 Performing Organization Address City/[facility] Phon e Number HP CONVERSION Phosphorus (10/16/2002 11:17 AM SMALL BATTERY PLATE ASSEMBLER) athologist Signature Phosphorus 4.1 2.5 - 4.5 HP CONVERSION Serum mg/dL Specimen (Source) Anatomical Collection Method Collection Time Re ceived Time Location / / Volume Laterality 10/16/2002 11:17 AM SMALL BATTERY PLATE ASSEMBLER Víctor Sorensen MD LAB_1 Performing Organization Address [facility] Phon e Number HP CONVERSION Complete Blood Count-No Diff (10/16/2002 11:17 AM SMALL BATTERY PLATE ASSEMBLER) athologist Signature White Blood Cell 10.9 3.8 [...] - HP CONVERSION Hemoglobin Conc 36.5 gm/dL [place] RDW 12.6 11.0 - HP CONVERSION 15.0 % Platelet Count 253 140 - 450 HP CONVERSION k/cmm Specimen (Source) Anatomical Collection Method Collection Time Re ceived Time Location / / Volume Laterality 10/16/2002 11:17 AM SMALL BATTERY PLATE ASSEMBLER Víctor Sorensen MD LAB_1 Performing Organization Address City/State/ZIP Code Phon e Number HP CONVERSION XR Chest PA With Lateral (08/06/2002 12:55 PM SMALL BATTERY PLATE ASSEMBLER) Anatomical Region Laterality Modality Other Specimen (Source) Anatomical Location Collection Method / Collectio n Time Received Time / Laterality Volume Narrative 08/06/2002 12:55 PM SMALL BATTERY PLATE ASSEMBLER CLINICAL DATA: ?COUGH, CONGESTION. ?786.2 FINDINGS: ?? [...] US MASS SEEN. NO FREE ?FLUID NOTED. ?[id number] TECH-ID : ? CL TRANS-ID: ? EDR [...] MA SS SEEN. NO FREE FLUID NOTED. [id number] TECH-ID : CL TRANS-ID: EDR Víctor Sorensen [...] - HP CONVERSION Hemoglobin Conc 36.5 gm/dL [place] RDW 12.4 11.0 - HP CONVERSION 15.0 [...] Víctor Sorensen MD LAB_1 Performing Organization Address [facility]/ZIP Code Phon e Number HP CONVERSION Glucose (02/18/2002 10:08 AM CDT) P athologist Signature Lab Glucose 87 60 - 109 HP CONVERSION mg/dL Specimen (Source) Anatomical Collection Method Collection Time Re ceived Time Location / / Volume Laterality 02/18/2002 10:08 AM CDT Víctor Sorensen MD LAB_1 Performing Organization Address City/[facility]/ZIP Code Phon e Number HP CONVERSION ESR (02/18/2002 10:08 AM CDT) Patholo gist Method Time Signature Sedimentation Rate 3 0 - 20 HP CONVERSI ON mm/Hr Specimen (Source) Anatomical Collection Method Collection Time Re ceived Time Location / / Volume Laterality 02/18/2002 10:08 AM CDT Víctor Sorensen MD LAB_1 Performing Organization Address [facility] Phon e Number HP CONVERSION XR Chest Apical Lordotic (02/18/2002 9:58 AM CDT) Anatomical Region Laterality Modality Chest, Lung Other Specimen (Source) Anatomical Location Collection Method / Collectio n Time Received Time / Laterality Volume Narrative 02/18/2002 9:58 AM CDT CLINICAL DATA: ?SHOULDER PAIN. SCAPULA PAIN. ?719.41 FINDINGS: ?CHEST IS NEGATIVE AND UNCHANGED FR OM 05/26/98. ?[id number] TECH-ID : TRANS-ID: ? EDR Procedure Note Allen Clark - 11/26/2016 CLINICAL DATA: SHOULDER PAIN. SCAPULA PAIN. 719.41 FINDINGS: CHEST IS NEGATIVE AND UNCHANGED FROM . [id number] TECH-ID : TRANS-ID: EDR Víctor Sorensen MD RAD GD Anatomical Path-C (02/18/2002 6:01 AM CDT) athologist Signature PAP Smear SEE TEXT No normal HP CONVERSION range Comment: Patient: SHU OLIVA ? CERVICAL CYTOLOGY REPORT Pathology # ??[id number] ?Date Obtained: ? Date Received: LMP: CLINICAL [...] and Direct LDL(If Needed) (11/09/2001 8:02 AM SMALL BATTERY PLATE ASSEMBLER) [facility] [employer] Method Time Signature Cholesterol/HDL 3.7 No normal [...] / / Volume Laterality 11/09/2001 8:02 AM SMALL BATTERY PLATE ASSEMBLER Víctor Sorensen MD LAB_1 Performing Organization Address City/State/ZIP Code Phon e Number HP CONVERSION AST (11/09/2001 8:02 AM SMALL BATTERY PLATE ASSEMBLER) [facility] Method Time Signature Aspartate 14 0 - 45 HP CONVERSION Aminotransferase U/L Specimen (Source) Anatomical Collection Method Collection Time Re ceived Time Location / / Volume Laterality 11/09/2001 8:02 AM SMALL BATTERY PLATE ASSEMBLER Víctor Sorensen MD LAB_1 Performing Organization Address City/State/ZIP Code Phon e Number HP CONVERSION ALT (SGPT) (11/09/2001 8:02 AM SMALL BATTERY PLATE ASSEMBLER) Global Active Method Time Signature Alanine 31 0 - 65 HP CONVERSION Aminotransferase U/L Specimen (Source) Anatomical Collection Method Collection Time Re ceived Time Location / / Volume Laterality 11/09/2001 8:02 AM SMALL BATTERY PLATE ASSEMBLER Víctor Sorensen MD LAB_1 Performing Organization Address City/[facility]/ZIP Code Phon e Number HP CONVERSION MM Mammogram Screening W CAD (11/06/2001 10:30 AM SMALL BATTERY PLATE ASSEMBLER) Anatomical Region Laterality Modality Breast Bilateral Mammography Specimen (Source) Anatomical Location Collection Method / Collectio n Time Received Time / Laterality Volume Impressions 11/06/2001 10:30 AM SMALL BATTERY PLATE ASSEMBLER : ?? NO MAMMOGRAPHIC EVIDENCE OF MALIGNAN [...] ANA M TRANS-ID: Narrative 11/06/2001 10:30 AM SMALL BATTERY PLATE ASSEMBLER SEVERITY: 1 CLINICAL DATA: ?MAMMO PREV 12/31/1999 [...] Direct LDL(If Needed) (07/06/2000 8:09 AM CDT) [facility] [employer] Method Time Signature Length Of Fast 12.0 [...] ILIA Thyroid Stimulating Hormone (12/09/1999 10:04 AM SMALL BATTERY PLATE ASSEMBLER) P athologist Signature Thyroid 1.66 0.20 - HP CONVERSION Stimulating 5.50 Hormone uIU/mL Specimen (Source) Anatomical Collection Method Collection Time Re ceived Time Location / / Volume Laterality 12/09/1999 10:04 AM SMALL BATTERY PLATE ASSEMBLER Víctor Sorensen MD LAB_1 Performing Organization Address City/State/ZIP Code Phon e Number HP CONVERSION (ABNORMAL) Lipid Panel and Direct LDL(If Needed) (12/09/1999 10:04 AM SMALL BATTERY PLATE ASSEMBLER) [facility] gist Method Time Signature Length Of [...] / / Volume Laterality 12/09/1999 10:04 AM SMALL BATTERY PLATE ASSEMBLER Víctor Sorensen MD LAB_1 Performing Organization Address City/[facility]/ZIP Code Phon e Number HP CONVERSION Albumin (12/09/1999 10:04 AM SMALL BATTERY PLATE ASSEMBLER) athologist Signature Albumin 3.5 3.0 - 5.0 HP CONVERSION g/dL Specimen (Source) Anatomical Collection Method Collection Time Re ceived Time Location / / Volume Laterality 12/09/1999 10:04 AM SMALL BATTERY PLATE ASSEMBLER Víctor Sorensen MD LAB_1 Performing Organization Address City/State/ZIP Code Phon e Number HP CONVERSION AST (12/09/1999 10:04 AM SMALL BATTERY PLATE ASSEMBLER) [facility] gist Method Time Signature Aspartate 19 0 - 45 HP CONVERSION Aminotransferase U/L Specimen (Source) Anatomical Collection Method Collection Time Re ceived Time Location / / Volume Laterality 12/09/1999 10:04 AM SMALL BATTERY PLATE ASSEMBLER Víctor Sorensen MD LAB_1 Performing Organization Address City/State/ZIP Code Phon e Number HP CONVERSION Glucose (12/09/1999 10:04 AM SMALL BATTERY PLATE ASSEMBLER) P athologist Signature Length Of Fast 12.0 8.0 - 24.0 HP CONVERSION Hours Lab Glucose 93 70 - 115 HP CONVERSION mg/dL Specimen (Source) Anatomical Collection Method Collection Time Re ceived Time Location / / Volume Laterality 12/09/1999 10:04 AM SMALL BATTERY PLATE ASSEMBLER Víctor Sorensen MD LAB_1 Performing Organization Address City/[facility] Phon e Number HP CONVERSION Protein, Total (Serum) (12/09/1999 10:04 AM SMALL BATTERY PLATE ASSEMBLER) athologist Signature Protein Total, 7.1 5.7 - 8.3 HP CONVERSION Serum gm/dL Specimen (Source) Anatomical Collection Method Collection Time Re ceived Time Location / / Volume Laterality 12/09/1999 10:04 AM SMALL BATTERY PLATE ASSEMBLER Víctor Sorensen MD LAB_1 Performing Organization Address City/[facility] Phon e Number HP CONVERSION Complete Blood Count-No Diff, No Plt (12/09/1999 10:04 AM SMALL BATTERY PLATE ASSEMBLER) P athologist Signature White Blood Cell 8.3 [...] - HP CONVERSION Hemoglobin Conc 36.5 gm/dL [place] RDW 12.4 11.0 - HP CONVERSION 15.0 % Specimen (Source) Anatomical Collection Method Collection Time Re ceived Time Location / / Volume Laterality 12/09/1999 10:04 AM SMALL BATTERY PLATE ASSEMBLER Víctor Sorensen MD LAB_1 Performing Organization Address [facility] Phon e Number HP CONVERSION Anatomical Path-C (12/09/1999 5:39 AM SMALL BATTERY PLATE ASSEMBLER) P athologist Signature PAP Smear SEE TEXT No normal HP CONVERSION range Comment: Patient: SHU OLIVA ? CERVICAL CYTOLOGY REPORT Pathology # ??[id number] ?Date Obtained: ? Date Received: LMP: CLINICAL HIST CERVICAL SMEAR SPECIMEN ADEQUACY: ?? Satisfactory. ENDOCERVICAL CELLS: ??Present. CYTOLOGIC IMPRESSION: Within Normal Limits (Negative). Verified 12/16/99 by: ??JYO ?(electronic signature) Specimen (Source) Anatomical Collection Method Collection Time Re ceived Time Location / / Volume Laterality 12/09/1999 5:39 AM SMALL BATTERY PLATE ASSEMBLER Víctor Sorensen MD LAB_1 Performing Organization Address City/[facility] Phon e Number HP CONVERSION Lipid Panel and Direct LDL(If Needed) (05/17/1999 8:05 AM CDT) [facility] [employer] Method Time Signature Cholesterol 179 125 - [...] Víctor Sorensen MD LAB_1 Performing Organization Address City/[facility]/ZIP Code Phon e Number HP CONVERSION AST (05/17/1999 8:05 AM CDT) [facility] gist Method Time Signature Aspartate 15 0 - 45 HP CONVERSION Aminotransferase U/L Specimen (Source) Anatomical Collection Method Collection Time Re ceived Time Location / / Volume Laterality 05/17/1999 8:05 AM CDT Víctor Sorensen MD LAB_1 Performing Organization Address [facility] Phon e Number HP CONVERSION FL UGI [...] RAD FL AST (02/16/1999 9:48 AM CDT) [facility] Method Time Signature Aspartate 12 0 - 45 HP CONVERSION Aminotransferase U/L Specimen (Source) Anatomical Collection Method Collection Time Re ceived Time Location / / Volume Laterality 02/16/1999 9:48 AM CDT Víctor Sorensen MD LAB_1 Performing Organization Address City/State/ZIP Code Phon e Number HP CONVERSION (ABNORMAL) Lipid Panel and Direct LDL(If Needed) (02/10/1999 8:36 AM CDT) [facility] Method Time Signature Length Of Fast [...] Víctor Sorensen MD LAB_1 Performing Organization Address City/[facility]/ZIP Code Phon e Number HP CONVERSION AST (02/10/1999 8:36 AM CDT) [facility] Method Time Signature Aspartate 11 0 - 45 HP CONVERSION Aminotransferase U/L Specimen (Source) Anatomical Collection Method Collection Time Re ceived Time Location / / Volume Laterality 02/10/1999 8:36 AM CDT Víctor Sorensen MD LAB_1 Performing Organization Address City/State/ZIP Code Phon e Number HP CONVERSION Strep Group A Antigen Test (01/18/1999 2:02 PM CDT) [facility] St[facility] Group A Negative Negative [...] Strep Follow up Culture @ ? Collected: ??[id number] ??[id number] Source: Throat ?Processed: ??[id number] ??1412 ? 1V Final Report ------ ?[id number] ??0832 No beta hemolytic Strep group A isolated . @ = Rapid F/U Cult Performed at ??[address] [place], [place] ?[address] Specimen (Source) Anatomical Collection Method Collection Time [...] OLIVA ? CERVICAL CYTOLOGY REPORT Pathology # ??[id number] ?Date Obtained: ? Date Received: LMP: CLINICAL [...] ON S1 AND MARKED BILATERAL BONY FORA PTIA STENOSIS AT THIS LEVEL. DEGENERATED DISKS AND [...] ASPECT OF THE RIGHT BREAST WHICH WAS MO ESENT 02/09/93 IS NO LONGER PRESENT. THIS [...] Diag Unilat Extra View (10/05/1993 2:00 PM SMALL BATTERY PLATE ASSEMBLER) Anatomical Region Laterality Modality Breast Mammography Specimen (Source) Anatomical Location Collection Method / Collectio n Time Received Time / Laterality Volume Narrative 10/05/1993 2:00 PM SMALL BATTERY PLATE ASSEMBLER CLINICAL DATA: ?6 MTH F/U RT BRST [...] on filedocumented in this encounter Care Teams Final Assembler Boat Relationship Specialty Start Date End Date Víctor Sorensen MD PCP - General 12/18/10 05/02/18 [address] [place], [place] [address] documented as of this encounter
--- OUTSIDE RECORDS SUMMARY | 2022-05-04 09:25 | XMS_ITS | Encounter Summary ---
:1940 Author Organization [facility] Address [address] [address] Care Team Providers Name Role Phone Unassigned, Provider Primary Care Provider Unavailable Encounter Details Date Type Department Care Team Description 04/08/2002 Orders Only Unassigned, Prov ider [address] [place] [address] Social History Tobacco Use Types Packs/Day Years Used Date Smoking Tobacco: Never Assessed Sex Assigned at Date Recorded Not on file documented as of this encounter Plan of Treatment Not on filedocumented as of this encounter Visit Diagnoses Not on filedocumented in this encounter Care Teams Avionics Installer Relationship Specialty Start Date End Date Unassigned, Provider PCP - General 08/25/00 12/17/10 [address] [place] [address] documented as of this encounter
--- OUTSIDE RECORDS SUMMARY | 2022-05-04 09:25 | XMS_ITS | Encounter Summary ---
:1940 Author Organization [facility] Address [address] [place] [address] Care Team Providers Name Role Phone Judy Sorensen MD Primary Care Provider Encounter Details Date Type Department Care Team Description 02/16/1993 PN Conversion Only RESTORATIONIST CONVERSION Bethel Owens MD [address] [place] [address] Social History Tobacco Use Types Packs/Day Years [...] Default Interface Order (02/16/1993 3:39 PM CDT) [facility] Method Time Signature Surgical See Detail [...] on filedocumented in this encounter Care Teams Rhythmic Gymnastics Coach Relationship Specialty Start Date End Date Judy Sorensen MD PCP - General 12/18/10 05/02/18 [address] [place] [address] documented as of this encounter
--- OUTSIDE RECORDS SUMMARY | 2022-05-04 09:25 | XMS_ITS | Encounter Summary ---
:1940 Author Organization [employer] Address [address] [place] [address] Care Team Providers Name Role Phone Judy Sorensen MD Primary Care Provider Encounter Details Date Type Department Care Team Description 11/06/2002 PN Conversion Only [facility] [address] [place], [place] [address] Social History Tobacco Use Types Packs/Day Years [...] 1215 Note Time: 11/06/02 0001 Status: Signed Reel And Rewinder Operator: Jesse Grady MD (Physician) NAME: SHU OLIVA MR: [id number] ACCT: VISIT: [id number] DICTATING CLINICIAN: Eliot GRADY MD,PhD JOB: [id number] CLINIC DEXA REPORT DATE OF VISIT: 11/06/2002 : 1940. SUBJECTIVE: REFERRING PROVIDER: JUDY GARCÍA MD INTERPRETING PHYSICIAN: Eliot GRADY MD,PhD : OSTEOPOROSIS RISK FACTORS FROM PATIENT QUESTIONNAIRE: [id number], postmenopausal woman, lack of HRT since menopause [...] Bone density on Hologic QDR 45[address] SL. CD:[id number] C: 11/21/02 09:31 DOCUMENT: [id number] [employer] documented in this encounter Plan of Treatment Not on filedocumented as of this encounter Visit Diagnoses Not on filedocumented in this encounter Care Teams Production Stage Manager Relationship Specialty Start Date End Date Judy Sorensen MD PCP - General 12/18/10 05/02/18 [address] [facility] [address] documented as of this encounter
== END 2022-05-04 09:15 | disposition home or self-care (01) ==
LOC: MAMMO 09:15
PROVIDERS: PCP Family Medicine; Visit Provider Family Medicine
DX: Z12.31 Encounter for screening mammogram for malignant neoplasm of breast (principal); R92.8 Other abnormal and inconclusive findings on diagnostic imaging of breast
CPT/HCPCS: 77063; 77067

== ENCOUNTER 2022-05-09 08:00 | Outpatient (CLI) | payer MEDICARE, SELFPAY ==
--- OUTSIDE RECORDS SUMMARY | 2022-05-09 08:06 | XMS_ITS | Clinical Summary ---
:1940 Author Organization [facility] Address [address] [place] [address] Care Team Providers Name Role Phone Unavailable Primary Care Provider Unavailable Source Comments Patient records contain information from all sites at [facility]. For routine questions regarding patient records, call [phone] during business hours, M-F 8:00 AM - 5:00 PM Central Time. Record requests for emergency care only can be directed to [phone] at any time.[facility] Allergies Active Allergy Reactions Severity Noted Date [...] Stage Recommended (pT1c, cN0, cM0, G2, ER+, [place]+, HER2-) - Unsigned Murmur Aortic Outflow 06/14/2021 [...] or relatives? How often do you attend zoroastrian or Never 2020 rastafarian services? Do you belong to any clubs or No 06/11/2021 organizations such as zoroastrian groups, unions, fraternal or athletic groups, or [...] Comments Blood Pressure 155/56 08/02/2021 12:58 PM BULB WEEDER Pulse 69 08/02/2021 12:58 PM BULB WEEDER Temperature 36.3 ??C (97.3 ??F) 08/18/2021 9:46 AM BULB WEEDER Respiratory Rate - - Oxygen Saturation 88% 06/14/2021 7:40 AM CDT Inhaled Oxygen Concentration - - Weight 49.3 kg (108 lb 11 oz) 08/18/2021 9:46 AM BULB WEEDER Height 150.9 cm (4' 11.41) 06/14/2021 7:40 [...] Dates Phone Addre ss Type Group ARE [facility] FOR [id number] 2019-Present [phone] [address] [place] [address]
--- OUTSIDE RECORDS SUMMARY | 2022-05-09 08:06 | XMS_ITS ---
:[address] [facility] Address [address] [place] [address] Care Team Providers Name Role Phone Unavailable Primary Care Provider Unavailable Active Problems Problem Noted Date Malignant Neoplasm Of Breast Lower Outer Quadrant Fema le Right 07/19/2021 Cancer Staging: Pathologic stage from : No Stage Recommended (pT1c, cN0, cM0, G2, ER+, [place]+, HER2-) - Unsigned Murmur Aortic Outflow 06/14/2021 [...] Elapsed Days Session Dose Total Dos e [id number] 08/20/2021 4 520 cGy 2,600 cGy
--- OUTSIDE RECORDS SUMMARY | 2022-05-09 08:07 | XMS_ITS | Encounter Summary ---
:[address] [facility] Address [address] [place] [address] Care Team Providers Name Role Phone Unavailable Primary Care Provider Unavailable Encounter Details Date Type Department Care Team Description 08/20/2021 Documentation Department of Radiation Mukesh [facility] [address] [facility] [address] [place], [place] [address] [phone] (Wo rk) Social History Tobacco Use Types [...] or relatives? How often do you attend nondenominational or Never 2020 taoism services? Do you belong to any clubs or No 06/11/2021 organizations such as nondenominational groups, unions, fraternal or athletic groups, or [...] to sleep or slept in a senior care (including now)? Education Answer Date Recorded What is the highest level of school you have completed or 11 th grade 06/11/2021 the highest degree you have received? Sex Assigned at Date Recorded Female 06/11/2021 12:59 PM CDT documented as of this encounter Miscellaneous Notes Radiation Completion Notes - Lorraine Wilde R.N. - 08/20/2021 11:59 PM DEVELOPMENT VICE PRESIDENT DIAGNOSIS: 1. 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 ([id number]) Treatment Intent: Curative Concomitant Therapy: None Single [...] by: Lorraine Wilde R.N., 08/23/2021 2:28 PM DEVELOPMENT VICE PRESIDENT 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
--- OUTSIDE RECORDS SUMMARY | 2022-05-09 08:07 | XMS_ITS | Encounter Summary ---
:1940 Author Organization [facility] Address [address] [place] [address] Care Team Providers Name Role Phone Unavailable Primary Care Provider Unavailable Encounter Details Date Type Department Care Team Description 06/14/2021 Ancillary Procedure Department of Langley, Tracy G, Murmu r Aortic Outflow; Radiology in M.D. Preoperative Examination Cardiovascular; [place], [facility] [address] [facility] Emphysema (HCC) [place], [place] [address] [facility] [address] [place], [place] [phone] (Work) Social History Tobacco Use Types Packs/Day [...] or relatives? How often do you attend samaritan or Never 2020 yazdanism services? Do you belong to any clubs or No 06/11/2021 organizations such as samaritan groups, unions, fraternal or athletic groups, or [...]
--- OUTSIDE RECORDS SUMMARY | 2022-05-09 08:07 | XMS_ITS | Encounter Summary ---
:1940 Author Organization [facility] Address [address] [place] [address] Care Team Providers Name Role Phone Unavailable Primary Care Provider Unavailable Reason for Referral Outpatient (Routine) - Authorized Specialty Diagnoses / Procedures Referred By Contact Refer red To Contact Vascular Medicine Diagnoses Stenosis Carotid Artery Bilateral Alethea Patterson M.D. [facility] [address] [place] [address] Referral ID Status Reason Start Date Expiration Date Visits V isits Requested Authorized [id number] Authorized 07/28/2021 07/28/2022 1 1 TECHNOLOGY TECHNICIAN Encounter Details Date Type Department Care Team Description [facility]/28[facility]2021 [facility] [place] Ar[facility] Bilateral [facility] (Primary Dx) [place] [address] [place], [place] [phone] [address] Social History Tobacco Use Types Packs/Day Years [...] or relatives? How often do you attend sikh or Never 2020 tenriism services? Do you belong to any clubs or No 06/11/2021 organizations such as sikh groups, unions, fraternal or athletic groups, or [...] Name Type Priority Associated Diagnoses Order S [facility] Vascular Center Outpatient Referral Routine Stenosis Carotid E xpected: Referral Artery Bilateral 07/28/2021 (Approximate), Expires: 07/28/2024 documented as of this encounter Visit Diagnoses Diagnosis Stenosis Carotid Artery Bilateral - Prim silvio documented in this encounter
--- OUTSIDE RECORDS SUMMARY | 2022-05-09 08:07 | XMS_ITS | Encounter Summary ---
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 [facility] Procedures Prior Auth Rad Tx [place] RADTN [place] DEL >=1 MEV COMPLEX [address] [place] [address] Referral ID Status Reason Start Date Expiration Date Visits V isits Requested Authorized [id number] Authorized 08/16/2021 07/20/2022 5 5 Encounter Details Date Type Department Care Team Description 08/17/2021 Hospital Encounter Department of Radiation Evon Stone, Oncology in [place] [address] [facility] [address] [place], [place] [address] [phone] Social History Tobacco Use Types Packs/Day Years [...] or relatives? How often do you attend orthodox or Never 2020 samaritan services? Do you belong to any clubs or No 06/11/2021 organizations such as orthodox groups, unions, fraternal or athletic groups, [...]
--- OUTSIDE RECORDS SUMMARY | 2022-05-09 08:07 | XMS_ITS | Encounter Summary ---
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 [facility] Procedures Prior Auth Rad Tx [place] RADTN [place] DEL >=1 MEV COMPLEX [address] [place] [address] Referral ID Status Reason Start Date Expiration Date Visits V isits Requested Authorized [id number] Authorized 08/16/2021 07/20/2022 5 5 Encounter Details Date Type Department Care Team Description 08/16/2021 Hospital Encounter Department of Radiation Evon Stone, Oncology in [place] [address] [facility] [address] [place], [place] [address] [phone] Social History Tobacco Use Types Packs/Day Years [...] or relatives? How often do you attend shinto or Never 2020 faith services? Do you belong to any clubs or No 06/11/2021 organizations such as shinto groups, unions, fraternal or athletic groups, or [...]
--- OUTSIDE RECORDS SUMMARY | 2022-05-09 08:07 | XMS_ITS | Encounter Summary ---
:1940 Author Organization [facility] Address [address] [place] [address] Care Team Providers Name Role Phone Unavailable Primary Care Provider Unavailable Reason for Referral Outpatient (Routine) - Closed Specialty Diagnoses / Procedures Referred By Contact Refer red To Contact Radiation Oncology Mukesh Stone M .D. [facility] Region [address] [place] [phone] Referral ID Status Reason Start Date Expiration Date Visits Requ ested Visits Authorized [id number] Closed 07/20/2021 07/20/2022 1 1 Scheduling Instructions Prior to simulation for consent CCO WAREHOUSE MANAGER Reason for Visit Outpatient (Routine) - Closed Specialty Diagnoses / Procedures Referred By Contact Refer red To Contact Radiation Oncology Mukesh Stone M .D. [facility] [address] [address] Referral ID Status Reason Start Date Expiration Date Visits Requ ested Visits Authorized [id number] Closed 07/20/2021 07/20/2022 1 1 Encounter Details Date Type Department Care Team Description 08/02/2021 Hospital Encounter Department of Mukesh Stone Neoplasm Radiation Oncology [place] Of Breast Lower in [address] Female Right (HCC) [address] [address] (Primary Dx) [place], [place] [phone] [address] (Work) [phone] Social History Tobacco Use Types Packs/Day Years [...] or relatives? How often do you attend confucianism or Never 2020 rastafari services? Do you belong to any clubs or No 06/11/2021 organizations such as confucianism groups, unions, fraternal or athletic groups, or [...] place to sleep or slept in a chcf (including now)? Education Answer Date Recorded What is the highest level of school you have completed or 11 th grade 06/11/2021 the highest degree you have received? 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 08/02/2021 1:43 PM TOBACCO WAREHOUSE MANAGER Radiation Oncology [facility] [address] [place], [place] [address] CCO WAREHOUSE MANAGER documented in this encounter Miscellaneous Notes Addendum Note - Mukesh Stone M.D. - 08/02/2021 1:00 PM TOBACCO WAREHOUSE MANAGER Encounter addended by: Mukesh Stone M.D. on: 08/05/2021 6:42 PM Actions taken: Flowsheet accepted CCO WAREHOUSE MANAGER documented in this encounter Plan of [...]
--- OUTSIDE RECORDS SUMMARY | 2022-05-09 08:07 | XMS_ITS | Encounter Summary ---
:1940 Author Organization [facility] Address [address] [place] [address] Care Team Providers Name Role Phone Unavailable Primary Care Provider Unavailable Reason for Visit Radiation Therapy (Routine) - Authorized Specialty Diagnoses / Procedures Referred By Contact Refer red To Contact Diagnoses Malignant Neoplasm Of Breast Lower Outer Quadrant Female Right (HCC) Mukesh Stone M.D. [facility] Procedures Prior Auth Rad Tx [place] RADTN [place] DEL >=1 MEV COMPLEX [address] [place] [address] Referral ID Status Reason Start Date Expiration Date Visits V isits Requested Authorized [id number] Authorized 08/16/2021 07/20/2022 5 5 Encounter Details Date Type Department Care Team Description 08/19/2021 Hospital Encounter Department of Radiation Evon Stone, Oncology in [place] [address] [facility] [address] [place] [address] [phone] Social History Tobacco Use Types Packs/Day Years [...] or relatives? How often do you attend pentecostalism or Never 2020 confucianism services? Do you belong to any clubs or No 06/11/2021 organizations such as pentecostalism groups, unions, fraternal or athletic groups, or [...]
--- OUTSIDE RECORDS SUMMARY | 2022-05-09 08:07 | XMS_ITS | Encounter Summary ---
:1940 Author Organization [facility] Address [address] [place] [address] Care Team Providers Name Role Phone Unavailable Primary Care Provider Unavailable Reason for Referral Radiation Therapy (Routine) - Authorized Specialty Diagnoses / Procedures Referred By Contact Refer red To Contact Diagnoses Malignant Neoplasm Of Breast Lower Outer Quadrant Female Right (HCC) Mukesh Stone M.D. [facility] Procedures Management Visit [address] [place] [address] Referral ID Status Reason Start Date Expiration Date Visits V isits Requested Authorized [id number] Authorized 07/20/2021 07/20/2022 10 10 AU DIRECTOR Reason for Visit Radiation Therapy (Routine) - Authorized Specialty Diagnoses / Procedures Referred By Contact Refer red To Contact Diagnoses Malignant Neoplasm Of Breast Lower Outer Quadrant Female Right (HCC) Mukesh [facility] M.D. [facility] Procedures Management Visit [address] [place] [address] Referral ID Status Reason Start Date Expiration Date Visits V isits Requested Authorized [id number] Authorized 07/20/2021 07/20/2022 10 10 Encounter Details Date Type Department Care Team Description 08/18/2021 Hospital Encounter Department of Mukesh Stone Neoplasm Radiation Oncology [place] Of Breast Lower in [place], [address] [place], [place] Female Right (HCC) [address] [facility] [address] [place], [place] [phone] [address] (Work) [phone] Social History Tobacco Use Types Packs/Day Years [...] or relatives? How often do you attend jew or Never 2020 confucianism services? Do you belong to any clubs or No 06/11/2021 organizations such as jew groups, unions, fraternal or athletic groups, or [...] 36.3 ??C (97.3 ??F) 08/18/2021 9:46 AM BUREAU DIRECTOR Respiratory Rate - - Oxygen Saturation - - Inhaled Oxygen Concentration - - Weight 49.3 kg (108 lb 11 oz) 08/18/2021 9:46 AM BUREAU DIRECTOR Height - - Body Mass Index 21.65 [...] Right (HCC) SUPERVISED BY: Mukesh Stone M.D. ([id number]) HISTORY OF PRESENT ILLNESS Mrs. Sol Oliva is an 80 y.o. 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 ??Angiolymphatic invasion was absent. ??Associated [...] Stage IA (pT1c, cN0, cM0, G2, ER+, [place]+, HER2-) invasive mucinous carcinoma of the upper-outer [...] weeks. I reviewed Breast Self Examination pamphlet [id number] with patient today. Joyce Bennett CNP will [...] by: Enma Martinez R.N. 08/18/2021 10:30 AM BUREAU DIRECTOR I saw and evaluated the patient and [...] by: Mukesh Stone M.D. 08/18/2021 12:55 PM BUREAU DIRECTOR [facility] [address] [place] [address] AU DIRECTOR documented in this encounter Miscellaneous Notes Addendum Note - Lenora Joiner CThaoNThaoA. - 08/18/2021 9:45 AM BUREAU DIRECTOR Encounter addended by: Lenora Joiner C.NThaoAThao on: 08/19/2021 7:04 AM Actions taken: SmartForm saved, Letter saved AU DIRECTOR documented in this encounter Plan of [...]
--- OUTSIDE RECORDS SUMMARY | 2022-05-09 08:07 | XMS_ITS | Encounter Summary ---
:1940 Author Organization [facility] Address [address] [place] [address] Care Team Providers Name Role Phone Unavailable Primary Care Provider Unavailable Reason for Referral Outpatient (Routine) - Closed Specialty Diagnoses / Procedures Referred By Contact Refer red To Contact Radiation Oncology Mukesh Stone M .D. 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 [facility] Region Procedures Initial Rad Onc Treatment Planning CT Simulation [address] [place], [place] [address] Referral ID Status Reason Start Date Expiration Date Visits Requ ested Visits Authorized [id number] Closed 07/20/2021 07/20/2022 1 1 Reason for Visit Appointment Request (Routine) - Closed Specialty Diagnoses / Procedures Referred By Contact Refer red To Contact Radiation Oncology Diagnoses Malignant Neoplasm Of Breast Female Right (HCC) Matilde Serrato M.D. [address] [place] [address] Referral ID Status Reason Start Date Expiration Date Visits Requ ested Visits Authorized [id number] Closed 07/12/2021 07/12/2022 1 1 Encounter Details Date Type Department Care Team Description 07/20/2021 Hospital Encounter Department of Mukesh Stone Neoplasm Radiation Oncology [place] Of Breast Lower in [place], [facility] [address] [place], [place] Female Right (HCC) [address] [facility] [address] (Primary Dx) [place], [place] [phone] [address] (Work) [phone] Social History Tobacco Use Types Packs/Day Years [...] or relatives? How often do you attend congregational or Never 2020 pentecostalism services? Do you belong to any clubs or No 06/11/2021 organizations such as congregational groups, unions, fraternal or athletic groups, or [...] as of this encounter Consult Notes Mukesh Stnoe M.D. - 07/20/2021 9:30 AM CDT SUBJECTIVE REQUESTING PROVIDER Matilde Serrato M.D. PRIMARY PROVIDER Alethea Patterson M.D. REASON FOR CONSULT 1. 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 Sol Oliva is an 80 y.o. 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 Angiolymphatic invasion was absent. Associated [...] the right breast demonstrated invasive mucinous carcinoma, [place] grade 2, measuring 1.5 cm. DCIS or [...] lumpectomy, 2020 SOCIAL HISTORY She lives in [place], [place]. She is to her spouse, He. [...] Stage IA (pT1c, cN0, cM0, G2, ER+, OH+, HER2-) invasive mucinous carcinoma of the upper-outer [...] M.D. 07/20/2021 6:38 PM CDT Radiation Oncology [facility] [address] [place] [address] documented in this encounter Miscellaneous Notes Addendum [...] Treatment Planning CT Simulation (08/02/2021 2:03 PM MANAGER CONTINUOUS IMPROVEMENT) Specimen (Source) Anatomical Location Collection Method / Collectio n Time Received Time / Laterality Volume Narrative PILAR SHANNON - 08/02/2021 2:03 PM MANAGER CONTINUOUS IMPROVEMENT Marga Armenta, RTT ? 08/02/2021 ??2:03 PM Initial Rad Onc Treatment Planning CT Si mulation Date/Time: 08/02/2021 2:03 PM Performed by: Mukesh Stone M.D. Authorized by: Mukesh Stone M.D. Mukesh Stone M.D. 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
--- OUTSIDE RECORDS SUMMARY | 2022-05-09 08:07 | XMS_ITS | Encounter Summary ---
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 [facility] Procedures Prior Auth Rad Tx [place] RADTN [place] DEL >=1 MEV COMPLEX [address] [place] [address] Referral ID Status Reason Start Date Expiration Date Visits V isits Requested Authorized [id number] Authorized 08/16/2021 07/20/2022 5 5 Encounter Details Date Type Department Care Team Description 08/18/2021 Hospital Encounter Department of Radiation Evon Stone, Oncology in [place] [address] [facility] [address] [place], [place] [phone] [phone] Social History Tobacco Use Types Packs/Day Years [...] do you attend jain or Never 2020 hindu services? Do you [...]
--- OUTSIDE RECORDS SUMMARY | 2022-05-09 08:07 | XMS_ITS | Encounter Summary ---
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 [facility] Region Procedures Initial Rad Onc Treatment Planning CT Simulation [address] [place] [address] Referral ID Status Reason Start Date Expiration Date Visits Requ ested Visits Authorized [id number] Closed 07/20/2021 07/20/2022 1 1 Encounter Details Date Type Department Care Team Description 08/02/2021 Hospital Encounter Department of Mukesh Stone Neoplasm Radiation Oncology [place] Of Breast Lower in [place], [address] [place], [place] Female Right (HCC) [address] [facility] [address] [place], [place] [phone] (Work) [phone] Social History Tobacco Use Types Packs/Day Years [...] or relatives? How often do you attend buddhist or Never 2020 congregation services? Do you belong to any clubs or No 06/11/2021 organizations such as buddhist groups, unions, fraternal or athletic groups, or [...] imaging was appropriate and completed without incident. Material Worker use:No GRAPH EDITOR documented in this encounter Plan of Treatment Not on filedocumented as of this encounter Procedures Procedure Name Priority Date/Time Associated Comments Diagnosis INITIAL RAD ONC Routine 08/02/2021 2:03 PM Malignant Neoplasm Results for this TREATMENT PLANNING TELEGRAPH EDITOR Of Breast Lower proced ure are in CT SIMULATION Outer Quadrant the results Female Right (HCC) section. documented in this encounter Results Initial Rad Onc Treatment Planning CT Simulation (08/02/2021 2:03 PM TELEGRAPH EDITOR) Specimen (Source) Anatomical Location Collection Method / Collectio n Time Received Time / Laterality Volume Narrative [facility] - 08/02/2021 2:03 PM TELEGRAPH EDITOR Marga Armenta, RTT ? 08/02/2021 ??2:03 PM Initial Rad Onc Treatment Planning CT Si mulation Date/Time: 08/02/2021 2:03 PM Performed by: Mukesh Stone M.D. Authorized by: Mukesh Stone M.D. Mukesh Stone M.D. 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
--- OUTSIDE RECORDS SUMMARY | 2022-05-09 08:07 | XMS_ITS | Encounter Summary ---
:1940 Author Organization [facility] Address [address] [place] [address] Care Team Providers Name Role Phone Unavailable Primary Care Provider Unavailable Encounter Details Date Type Department Care Team Description 08/20/2021 Hospital Encounter Department of Radiation Evon Stone, [place]cology [place] [address] [facility] [address] [place], [place] [phone] Social History Tobacco Use Types Packs/Day Years [...] or relatives? How often do you attend mormon or Never 2020 denominational services? Do you belong to any clubs or No 06/11/2021 organizations such as mormon groups, unions, fraternal or athletic groups, or [...]
--- OUTSIDE RECORDS SUMMARY | 2022-05-09 08:07 | XMS_ITS | Encounter Summary ---
:1940 Author Organization [facility] Address [address] [place] [address] Care Team Providers Name Role Phone Unavailable Primary Care Provider Unavailable Reason for Visit Reason Comments Patient Education Encounter Details Date Type Department Care Team Description 06/14/2021 Education Division of Pulmonary Langley, Rachelle Corrales M.D. [address] [place] [address] Emphysema (HCC) Medicine in [place], Darlin Mejia RThaoN. [address] [place] [address] [place] [address] [place] [phone] Social History Tobacco Use Types Packs/Day [...] do you attend baptist or Never 2020 yazidi services? Do you belong to any clubs [...]
--- OUTSIDE RECORDS SUMMARY | 2022-05-09 08:07 | XMS_ITS | Encounter Summary ---
:1940 Author Organization [facility] Address [address] [place] [address] Care Team Providers Name Role Phone Unavailable Primary Care Provider Unavailable Encounter Details Date Type Department Care Team Description 06/14/2021 Hospital Encounter Department of Demarcus Langley Preope rative Laboratory Medicine MYee Examination and Pathology, [address] [place] [address] [facility] [address] [place] [phone] [place] [address] (Work) [place], [place] [phone] (Fax) [phone] Social History Tobacco Use Types Packs/Day Years [...] or relatives? How often do you attend moravian or Never 2020 baptism services? Do you belong to any clubs or No 06/11/2021 organizations such as moravian groups, unions, fraternal or athletic groups, or [...] place to sleep or slept in a nursing home (including now)? Education Answer Date Recorded [...] 06/14/2021 DTL Black/ mL/min/BSA 11:57 AM CDT Somali Comment: ----ADDITIONAL INFORMATION---- Estimated GFR calculated using [...] Organization Address City/State/ZIP Code Phon e Number [facility] - [address] [place], [place] [address] [place] [address] [facility] [address] (ABNORMAL) CBC with Differential, Blood (06/14/2021 10:28 AM CDT) [facility] gist Method Time Signature Hemoglobin 16.1 [...] Organization Address City/State/ZIP Code Phon e Number [facility] - [address] [place], [place] [address] [place] [address] [facility] [address] documented in this encounter Visit Diagnoses Diagnosis Preoperative Examination Cardiovascular documented in this encounter
--- OUTSIDE RECORDS SUMMARY | 2022-05-09 08:07 | XMS_ITS | Encounter Summary ---
:1940 Author Organization [facility] Address [address] [place] [address] Care Team Providers Name Role Phone Unavailable Primary Care Provider Unavailable Reason for Referral Outpatient (Routine) - Closed Specialty Diagnoses / Procedures Referred By Contact Refer red To Contact Diagnoses Murmur Aortic Outflow Demarcus Langley M.D. [facility] Procedures Echo Transthoracic (TTE) [address] [place] [phone] Referral ID Status Reason Start Date Expiration Date Visits Requ ested Visits Authorized [id number] Closed 06/14/2021 06/14/2022 1 1 Reason for Visit Outpatient (Routine) - Closed Specialty Diagnoses / Procedures Referred By Contact Refer red To Contact Diagnoses Murmur Aortic Outflow Demarcus Langley M.D. [facility] Procedures Echo Transthoracic (TTE) [address] [place] [phone] Referral ID Status Reason Start Date Expiration Date Visits Requ ested Visits Authorized [id number] Closed 06/14/2021 06/14/2022 1 1 Encounter Details Date Type Department Care Team Description 06/14/2021 Hospital Encounter Department of Demarcus Langley Murmur Aortic Cardiovascular Diseases [place] Outflow in [facility] [address] [facility] [address] [place] [address] [phone] Social History Tobacco Use Types Packs/Day Years [...] you attend oriental orthodox or Never 2020 congregation services? Do you [...] ECHO DOPPLER COLOR (06/14/2021 3:58 PM CDT) [facility] gist Method Time Signature Ejection Fraction 66 [...] . For the complete report, see the evidanza Documents. Narrative 06/14/2021 4:01 PM CDT For the complete report, see the evidanza Documents. Final Impressions 1. Normal left ventricular [...]
--- OUTSIDE RECORDS SUMMARY | 2022-05-09 08:07 | XMS_ITS | Encounter Summary ---
:1940 Author Organization [facility] Address [address] [place] [address] Care Team Providers Name Role Phone Unavailable Primary Care Provider Unavailable Reason for Visit Reason Comments Release of Information Encounter Details Date Type Department Care Team Description 06/16/2021 Clinical Communication Division of Demarcus Langley Rel ease of Pulmonary Medicine [place] Information in [address] [place] [address] [place], [place] [phone] (Work) [phone] Social History Tobacco Use Types Packs/Day Years [...] or relatives? How often do you attend sabianist or Never 2020 congregation services? Do you belong to any clubs or No 06/11/2021 organizations such as sabianist groups, unions, fraternal or athletic groups, or [...] place to sleep or slept in a mcc (including now)? Education Answer Date Recorded What is the highest level of school you have completed or 11 th grade 06/11/2021 the highest degree you have received? Sex Assigned at Date Recorded Female 06/11/2021 12:59 PM CDT documented as of this encounter Miscellaneous Notes Telephone Encounter - Terri Aden - 06/16/2021 10:13 AM CDT I have faxed the [place] Carotid Bilateral order to [facility] ( , ). Thank you, Terri, Pulmonary Med. Admin. Asst. documented in this encounter Plan of Treatment Not on filedocumented as of this encounter Visit Diagnoses Not on filedocumented in this encounter
--- OUTSIDE RECORDS SUMMARY | 2022-05-09 08:07 | XMS_ITS | Encounter Summary ---
:1940 Author Organization [facility] Address [address] [place] [address] Care Team Providers Name Role Phone Unavailable Primary Care Provider Unavailable Reason for Visit Outpatient (Routine) - Closed Specialty Diagnoses / Procedures Referred By Contact Refer red To Contact Demarcus Langley M.D. [place] [facility] [address] [place] [address] Referral ID Status Reason Start Date Expiration Date Visits Requ ested Visits Authorized [id number] Closed 06/14/2021 06/14/2022 1 1 Encounter Details Date Type Department Care Team Description 06/18/2021 Telemedicine Division of Pulmonary Demarcus Langley, Sten osis Carotid Artery Bilateral (Primary Dx); Medicine in [place]; [place] [address] [facility] Murmur Aortic Outflow; [address] [place], [place] Preoperative Examination Car diovascular; [place] [address] Nonrheumatic Aortic Valve Stenosis [phone] Social History Tobacco Use Types Packs/Day Years [...] or relatives? How often do you attend protestant or Never 2020 uatsdin services? Do you belong to any clubs or No 06/11/2021 organizations such as protestant groups, unions, fraternal or athletic groups, or [...] yesterday June 17. Results were faxed into [employer] and is under media. More than 70% [...] With 50% of the encounter in virtual [id number]-dr-fqlw. documented in this encounter Plan of Treatment Not on filedocumented as of this encounter Visit Diagnoses Diagnosis Stenosis Carotid Artery Bilateral - Prim silvio [place] Murmur Aortic Outflow Preoperative Examination Cardiovascular Nonrheumatic Aortic Valve Stenosis documented in this encounter
--- OUTSIDE RECORDS SUMMARY | 2022-05-09 08:08 | XMS_ITS | Encounter Summary ---
:1940 Author Organization [facility] Address [address] [place] [address] Care Team Providers Name Role Phone Judy Sorensen MD Primary Care Provider Encounter Details Date Type Department Care Team Description 06/12/2017 Lab Visit [facility] Hypokalemia [address] [place] [address] Social History Tobacco Use Types [...] - 06/12/2017 9:34 AM CDT Performed at [facility], [address] [place] [address] CLIA number [id number] Lenora Schroeder MD LAB_1 Performing Organization Address City/State/ZIP Code Phon e Number [facility] [address] [place] [address] [phone] documented in this encounter Visit Diagnoses Diagnosis Hypokalemia Hypopotassemia documented in this encounter Care Teams Pipelines Laborer Relationship Specialty Start Date End Date Judy Sorensen MD PCP - General 12/18/10 05/02/18 [address] [place] [address] documented as of this encounter
--- OUTSIDE RECORDS SUMMARY | 2022-05-09 08:08 | XMS_ITS | Encounter Summary ---
:1940 Author Organization [employer] Address [address] [place] [address] Care Team Providers Name Role Phone Judy Sorensen MD Primary Care Provider Reason for Visit Reason Onset Date Comments Refill 05/16/2017 atorvastatin (LIPITO R) 40 MG tablet; chlorthalidone (HYGROTON) 25 MG tablet Encounter Details Date Type Department Care Team Description 05/16/2017 Refill [facility] Judy Sorensen, Refi ll (atorvastatin Medicine (LIPITOR) 40 MG tablet; [address] chlorthalidone (HYGROTON) [place] [address] [place], [place] 25 MG tablet) [phone] (Wo rk) Social History Tobacco Use Types [...] (Sent to [facility]) Powered by 1-[employer], Reference: [id number], 05/16/2017 3:25:51 PM CDT, Pool: [facility]LO[facility] FP REFILL ([id number]) chlorthalidone (HYGROTON) 25 MG tablet Medication started: [...] (Sent to [facility]) Powered by 1-[employer], Reference: [id number], 05/16/2017 3:25:51 PM CDT, Pool: KHLOE FP REFILL ([id number]) documented in this encounter Plan of Treatment Not on filedocumented as of this encounter Visit Diagnoses Not on filedocumented in this encounter Care Teams Java Support Engineer Relationship Specialty Start Date End Date Judy Sorensen MD PCP - General 12/18/10 05/02/18 [address] [place], [place] [phone] documented as of this encounter
--- OUTSIDE RECORDS SUMMARY | 2022-05-09 08:08 | XMS_ITS | Encounter Summary ---
:1940 Author Organization [employer] Address [address] [place] [address] Care Team Providers Name Role Phone Judy Sorensen MD Primary Care Provider Reason for Visit Procedure/Equipment (Routine) - Incomplete Specialty Diagnoses / Procedures Referred By Contact Refer red To Contact Diagnoses Visit for screening Judy Sorensen MD Procedures MM Mammogram Screening Bilat W CAD [address] [place], [place] [address] Referral ID Status Reason Start Date Expiration Date Visits V isits Requested Authorized [id number] Incomplete 02/06/2017 05/08/2018 1 1 Encounter Details Date Type Department Care Team Description 02/10/2017 Imaging [place] Mammograp Judy Sorensen MD Visit for screening [address] [place] [address] [place], [place] [phone] (Wo rk) Social History Tobacco Use Types [...] is un remarkable. Judy Sorensen MD RAD [facility] documented in this encounter Visit Diagnoses Diagnosis Visit for screening Screening for unspecified condition documented in this encounter Care Teams Feller Machine Operator Relationship Specialty Start Date End Date Judy Sorensen MD PCP - General 12/18/10 05/02/18 [address] [place] [address] documented as of this encounter
--- OUTSIDE RECORDS SUMMARY | 2022-05-09 08:08 | XMS_ITS | Encounter Summary ---
:1940 Author Organization [facility] Address [address], [place] [address] Care Team Providers Name Role Phone Judy Sorensen MD Primary Care Provider Reason for Visit Reason Comments Refill ranitidine (ZANTAC) 300 MG t ablet [Pharmacy Med Name: RANITIDINE 300MG] Encounter Details Date Type Department Care Team Description 06/21/[address] [facility] Gwen Sorensen MD Refill (ranitidine Medicine [address] (ZANTAC) 300 MG tablet [address] [place], [place] [Pharmacy Med Name: [place] [address] RANITIDINE 300MG]) [phone] (Wo rk) Social History Tobacco Use Types [...] GARCÍA Ordering User: CADE HUFF Interface, Out [employer] Prov Query - 06/21/2016 10:11 AM CDT [...] - NEXT SCHEDULED VISIT: None Powered by [employer], Reference: [id number], 06/21/2016 10:11:35 AM CDT, Pool: KHLOE FP REFILL ([id number]) documented in this encounter Plan of Treatment Not on filedocumented as of this encounter Visit Diagnoses Not on filedocumented in this encounter Care Teams Transportation Supervisor Relationship Specialty Start Date End Date Judy Sorensen MD PCP - General 12/18/10 05/02/18 [address] [employer] [place], [place] [address] documented as of this encounter
--- OUTSIDE RECORDS SUMMARY | 2022-05-09 08:08 | XMS_ITS | Encounter Summary ---
:1940 Author Organization [employer] Address [address] [address] Care Team Providers Name Role Phone Needs Pcp, Assignment Primary Care Provider Reason for Visit Procedure/Equipment (Routine) - Incomplete Specialty Diagnoses / Procedures Referred By Contact Refer red To Contact Diagnoses Follow-up examination of abnormal mammogram Alethea Patterson Procedures MM Mammogram Screening Bilat W 3D Llaa W CAD YMM Mammogram Diag Bilat W 3D Lala [address] [place] [address] Referral ID Status Reason Start Date Expiration Date Visits V isits Requested Authorized [id number] Incomplete 05/18/2018 08/17/2019 1 1 Encounter Details Date Type Department Care Team Description 05/30/2018 Imaging [facility] 385 Alethea Patterson w-up examination of Mammography Enma Ward MD abnormal mammogram 3850 [facility] [address] [place] [address] [phone] Social History Tobacco Use Types Packs/Day Years [...] unspecified documented in this encounter Care Teams Fork Truck Operator Relationship Specialty Start Date End Date Needs Pcp, Assignment PCP - General 05/03/18 01/01/19 [place] [address] documented as of this encounter
--- OUTSIDE RECORDS SUMMARY | 2022-05-09 08:08 | XMS_ITS | Encounter Summary ---
:1940 Author Organization [employer] Address [address] [place] [address] Care Team Providers Name Role Phone Judy Sorensen MD Primary Care Provider Encounter Details Date Type Department Care Team Description 08/30/2017 Lab Visit [facility] Essential hypertension [address] [place] [address] Social History Tobacco Use [...] Essential Results for this DIRECT LDL(IF AM ENGROSSER hypertension procedure are in NEEDED) the results section. BASIC METABOLIC Routine 08/30/2017 10:28 Essential Results for this PANEL AM ENGROSSER hypertension procedure are i n the results section. documented in this encounter Results Lipid Panel and Direct LDL(If Needed) (08/30/2017 10:28 AM ENGROSSER) Analysis Performed At Patho logist Time Signature [...] / Volume Laterality 08/30/2017 10:28 08/30/2017 AM ENGROSSER 10:28 AM ENGROSSER Narrative PN SOFT - 08/30/2017 11:11 AM ENGROSSER Performed at [facility], [address] [place] [address] CLIA number [id number] Judy Sorensen MD LAB_1 Performing Organization Address City/[facility] Phon e Number PN SOFT [address] [place] [address] (ABNORMAL) Basic Metabolic Panel (08/30/2017 10:28 AM ENGROSSER) athologist Signature Creatinine Serum 0.80 0.55 - [...] / Volume Laterality 08/30/2017 10:28 08/30/2017 AM ENGROSSER 10:28 AM ENGROSSER Narrative PN SOFT - 08/30/2017 11:11 AM ENGROSSER Performed at [facility], [address] [place] [address] CLIA number [id number] Judy Sorensen MD LAB_1 Performing Organization Address [facility] Phon e Number PN SOFT [address] [place] [address] documented in this encounter Visit Diagnoses Diagnosis Essential hypertension (HRC) Unspecified essential hypertension documented in this encounter Care Teams Nut Packer Relationship Specialty Start Date End Date Judy Sorensen MD PCP - General 12/18/10 05/02/18 [address] [place] [address] documented as of this encounter
--- OUTSIDE RECORDS SUMMARY | 2022-05-09 08:08 | XMS_ITS | Encounter Summary ---
:1940 Author Organization [facility] Address [address], [place] [address] Care Team Providers Name Role Phone Judy Sorensen MD Primary Care Provider Reason for Visit Procedure/Equipment (Routine) - Incomplete Specialty Diagnoses / Procedures Referred By Contact Refer red To Contact Diagnoses Abnormal finding on breast imaging Judy Sorensen MD Procedures [facility] Mammogram Diag Rt W Lala [address] [place], [place] [address] Referral ID Status Reason Start Date Expiration Date Visits V isits Requested Authorized [id number] Incomplete 02/10/2017 05/12/2018 1 1 Encounter Details Date Type Department Care Team Description 02/16/2017 Imaging [place] [address] Sidney Sorensen MD Abnormal finding on Mammography [address] [employer] [facility] breast imaging [address] [place] [address] [address] [address] [place] [address] [phone] Social History Tobacco Use Types Packs/Day Years [...] Name Priority Date/Time Associated Diagnosis Comme nts [facility] MAMMOGRAM DIAG Routine 02/16/2017 10:17 AM Abnormal findin g on Results for this RT W 3D LALA CDT breast imaging procedure are in the results section. documented in this encounter Results [facility] US Breast Rt (02/16/2017 10:36 AM [...] and breast ultrasound follow-up is recommended. The [facility] will att empt to schedule the recommended [...] and breast ultrasound follow-up is recommended. The [facility] will att empt to schedule the recommended follow up with the patient. If the patient develops new symptoms such as a new palpable lump, skin changes or nipple discharge, evaluation at that time is recommended. IMPRESSION IMPRESSION: ACR BI-RADS CATEGORY 3: Prob ably benign. Judy Sorensen MD RAD [facility] Mammogram Diag Rt W Lala (02/16/2017 [...] and breast ultrasound follow-up is recommended. The [facility] will att empt to schedule [...] and breast ultrasound follow-up is recommended. The [facility] will att empt to schedule the [...] breast documented in this encounter Care Teams Ticket Manager Relationship Specialty Start Date End Date Judy Sorensen MD PCP - General 12/18/10 05/02/18 [address] [place] [address] documented as of this encounter
--- OUTSIDE RECORDS SUMMARY | 2022-05-09 08:08 | XMS_ITS | Encounter Summary ---
:1940 Author Organization [employer] Address [address], [place] [address] Care Team Providers Name Role Phone Needs Pcp, Assignment Primary Care Provider Reason for Visit Procedure/Equipment (Routine) - Canceled Specialty Diagnoses / Procedures Referred By Contact Refer red To Contact Diagnoses Follow-up examination of abnormal mammogram Alethea Patterson, Procedures [facility] Breast Rt [address] [place] [address] Referral ID Status Reason Start Date Expiration Date Visits V isits Requested Authorized [id number] Canceled 05/18/2018 08/17/2019 1 1 Encounter Details Date Type Department Care Team Description 05/30/2018 Imaging [facility] 3850 Alethea Patterson w-up examination of Mammography Enma Ward MD abnormal mammogram 3850 [facility] [address] [place] [address] [phone] Social History Tobacco Use Types Packs/Day Years [...] unspecified documented in this encounter Care Teams Skill Labor Relationship Specialty Start Date End Date Needs Pcp, Assignment PCP - General 05/03/18 01/01/19 [place] [address] documented as of this encounter
--- OUTSIDE RECORDS SUMMARY | 2022-05-09 08:08 | XMS_ITS | Encounter Summary ---
:1940 Author Organization [employer] Address [address] [place] [address] Care Team Providers Name Role Phone Judy Sorensen MD Primary Care Provider Encounter Details Date Type Department Care Team Description 05/25/2017 Lab Visit [facility] Hypokalemia (Primary Dx); [address] [address] Essential hypertension; [place] [address] Abdominal aortic aneurysm (A AA) without rupture (HRC) [phone] Social History Tobacco Use Types Packs/Day Years [...] - 06/12/2017 9:34 AM CDT Performed at [facility], [address] [place], [place] [address] CLIA number [id number] Lenora Schroeder MD LAB_1 Performing Organization Address [facility] Phon e Number PN SOFT [address] [place] [address] CBC - Complete Blood Count-No Diff (05/25/2017 [...] - 05/25/2017 12:41 PM CDT Performed at [facility], [facility] [address] [place] [address] CLIA number [id number] Lenora Schroeder MD LAB_1 Performing Organization Address City/[facility] Phon e Number PN SOFT [address] [place] [address] Alanine Aminotransferase - ALT (SGPT) (05/25/2017 12:37 PM CDT) Patholo gist Method Time Signature Alanine 15 9 - 55 PN SOFT Aminotransferase U/L Specimen Anatomical Collection Method Collection Time Receive d Time (Source) Location / / Volume Laterality 05/25/2017 12:37 05/25/2017 PM CDT 12:37 PM CDT Narrative PN SOFT - 05/25/2017 3:53 PM CDT Performed at [facility], [address] [place] [address] CLIA number [id number] Lenora Schroeder MD LAB_1 Performing Organization Address [facility] Phon e Number PN SOFT [address] [place] [address] Lipid Panel - LDLD If Trig High (05/25/2017 12:37 PM CDT) Analysis [facility] Time Signature Cholesterol 176 0 - [...] - 05/25/2017 3:53 PM CDT Performed at [facility], [facility] [address] [place] [address] CLIA number [id number] Lenora Schroeder MD LAB_1 Performing Organization Address [facility] Phon e Number PN SOFT [address] [place] [address] (ABNORMAL) Basic Metabolic Panel (05/25/2017 12:37 PM [...] Normal>60, moderate decrease 30 - 59, se jaems decrease 15 - 29, renal failure <15 mL/min/1.73 m2 NOTE: ??Choose the eGFR result above johanne ropriate for the race of the patient. Specimen Anatomical Collection Method Collection Time Receive d Time (Source) Location / / Volume Laterality 05/25/2017 12:37 05/25/2017 PM CDT 12:37 PM CDT Narrative PN SOFT - 05/25/2017 3:53 PM CDT Performed at [facility], [address] [place] [address] CLIA number [id number] Lenora Schroeder MD LAB_1 Performing Organization Address City/State/ZIP Code Phon e Number PN SOFT [address] [place] [address] [phone] documented in this encounter Visit Diagnoses Diagnosis Hypokalemia - Primary Hypopotassemia Essential hypertension (HRC) Unspecified essential hypertension Abdominal aortic aneurysm (AAA) without rupture (HRC) Hypokalemia Hypopotassemia documented in this encounter Care Teams Finance Associate Relationship Specialty Start Date End Date Judy Sorensen MD PCP - General 12/18/10 05/02/18 [address] [place] [address] documented as of this encounter
--- OUTSIDE RECORDS SUMMARY | 2022-05-09 08:08 | XMS_ITS | Encounter Summary ---
:1940 Author Organization [employer] Address [address] [address] Care Team Providers Name Role Phone Judy Sorensen MD Primary Care Provider Reason for Visit Reason Onset Date Comments Reminder Call 06/01/2017 lab Encounter Details Date Type Department Care Team Description 06/01/2017 Telephone [facility] Gwen Sorensen MD Reminder Call (lab) [address] [address] [phone] (Wo rk) Social History Tobacco Use Types [...] on filedocumented in this encounter Care Teams Library Attendant Relationship Specialty Start Date End Date Judy Sorensen MD PCP - General 12/18/10 05/02/18 [address] [facility] [place] [place] [address] documented as of this encounter
--- OUTSIDE RECORDS SUMMARY | 2022-05-09 08:08 | XMS_ITS | Encounter Summary ---
:1940 Author Organization [employer] Address [address] [place] [address] Care Team Providers Name Role Phone Judy Sorensen MD Primary Care Provider Reason for Visit Reason Onset Date Comments Refill 08/26/2016 ATENolol (TENORMIN) 25 MG tablet; atorvastatin (LIPITOR) 40 MG tablet; chlorthalido ne (HYGROTON) 25 MG tablet Encounter Details Date Type Department Care Team Description 08/26/2016 Refill [facility] Judy Sorensen, Refi ll (ATENolol Medicine (TENORMIN) 25 MG tablet; [address] atorvastatin (LIPITOR) [address] [place] [address] [place], [place] MG tablet; chlorthalidone [phone] (HYGROTON) 25 MG tablet) [phone] (Wo rk) Social History Tobacco Use Types [...] Take 1 Tab by mouth daily. ER GLUER Interface, Out Surescripts Prov Query - 08/26/2016 [...] 66 mm Hg on 05/17/2016 Powered by [email or web address], Reference: [id number], 08/26/2016 12:31:42 PM VENEER GLUER, Pool: KHLOE FP REFILL ([id number]) atorvastatin (LIPITOR) 40 MG tablet Medication started: 10/16/2013 Last ordered by JUDY GARCÍA: 05/05/2016 (113 days ago) QTY: 90, Refills: 0, Sig: take 1 tablet by mouth daily (every 24 hours). (changed but equivalent) -> Refill x 9 months (until due for an office visit) Last qualifying visit: 05/17/2016 (with JUDY GARCÍA) Next scheduled visit: None Powered by [email or web address], Reference: [id number], 08/26/2016 12:31:42 PM Markos HAIDER: KHLOE FP REFILL ([id number]) chlorthalidone (HYGROTON) 25 MG tablet Medication started: [...] K: 4.5 mEq/L on 05/17/2016 Powered by [email or web address], Reference: [id number], 08/26/2016 12:31:42 PM VENEER GLUER, Pool: KHLOE FP REFILL ([id number]) ER GLUER documented in this encounter Plan of Treatment Not on filedocumented as of this encounter Visit Diagnoses Not on filedocumented in this encounter Care Teams Twx Operator Relationship Specialty Start Date End Date Judy Sorensen MD PCP - General 12/18/10 05/02/18 [address] [place] [address] documented as of this encounter
--- OUTSIDE RECORDS SUMMARY | 2022-05-09 08:08 | XMS_ITS | Encounter Summary ---
:1940 Author Organization [employer] Address [address] [place] [address] Care Team Providers Name Role Phone Alethea Patterson MD Primary Care Provider [phone] Reason for Visit Reason Comments Refill raNITIdine (ZANTAC) 300 MG t ablet [Pharmacy Med Name: RANITIDINE 300MG] Encounter Details Date Type Department Care Team Description 01/28/2019 Refill [facility] Gwen Sorensen MD Refill (raNITIdine Medicine [address] (ZANTAC) 300 MG tablet [address] [place], [place] [Pharmacy Med Name: [place] [address] RANITIDINE 300MG]) [phone] (Wo rk) Social History Tobacco Use Types [...] visit Patient no longer receiving care at [facility] Frontline: [facility]P [id number]) Deandra Haddad RN - 01/31/2019 9:09 AM CDT Further Assistance Needed on Refill from Supervisor Record Press Patient is overdue for Office visit. -> [...] found) Next scheduled visit: None Powered by [employer], Reference: [id number], 01/28/2019 12:09:45 PM CDT, Pool: GONZALES KALPANA ([id number]) documented in this encounter Plan of Treatment Not on filedocumented as of this encounter Visit Diagnoses Not on filedocumented in this encounter Care Teams Engraver Ornamental Design Relationship Specialty Start Date End Date Alethea Patterson MD PCP - General Family Practice 01/02/19[address] [place] [address] documented as of this encounter
--- OUTSIDE RECORDS SUMMARY | 2022-05-09 08:08 | XMS_ITS | Clinical Summary ---
:1940 Author Organization [facility] Address [address] [place] [address] Care Team Providers Name Role Phone Alethea Patterson MD Primary Care Provider [phone] Source Comments You are receiving this document [...] for each transition of care or referral. [facility] Allergies No known active allergies Medications Medication [...] Date Adenomatous polyp 08/31/2017 Overview: Colonoscopy at [facility] 2014, due 2019 Abdominal aortic aneurysm (AAA) [...] 08/30/2017, 05/17/2016, 1 10/06/2014, Highdose, 65+ Yrs (20640) 06/27/2014 Influenza, Unspecified Formulation 07/03/2003, 08/01/2002, 1 [...] Family History Cancer, Ovary Negative Family History [place] Syndrome Negative Family History Diethylstilbestrol Exposure Negative [...] Comments Blood Pressure 128/82 08/30/2017 11:24 AM REFINED SYRUP OPERATOR Pulse 68 08/30/2017 11:24 AM REFINED SYRUP OPERATOR Temperature 36.2 ??C (97.2 ??F) 01/02/2015 9:58 AM CDT Respiratory Rate 16 01/02/2015 9:58 AM CDT Oxygen Saturation 96% 09/05/2008 1:24 PM REFINED SYRUP OPERATOR Inhaled Oxygen Concentration - - Weight 51.3 kg (113 lb) 08/30/2017 11:24 AM REFINED SYRUP OPERATOR Height 151.8 cm (4' 11.75) 08/30/2017 11:24 AM REFINED SYRUP OPERATOR Body Mass Index 22.25 08/30/2017 11:24 AM REFINED SYRUP OPERATOR Plan of Treatment Health Maintenance Due [...] to complete this to pic Care Teams Billet Heater Relationship Specialty Start Date End Date Alethea Patterson MD PCP - General Family Practice 01/02/19[address] [place] [address]
--- OUTSIDE RECORDS SUMMARY | 2022-05-09 08:08 | XMS_ITS | Encounter Summary ---
:1940 Author Organization [employer] Address [address] [address] Care Team Providers Name Role Phone Alethea Patterson MD Primary Care Provider [phone] Reason for Visit Reason Comments Clinician Finder Team Encounter Details Date Type Department Care Team Description 01/02/2019 Telephone [facility] [place] [facility] 3850 [facility] Pcp, Clinician Finder Team Family Medicine Assignment 3850 [facility] [place] [address] [phone] Social History Tobacco Use Types Packs/Day Years [...] on filedocumented in this encounter Care Teams Staff Physical Therapist Relationship Specialty Start Date End Date Alethea Patterson MD PCP - General Family Practice 01/02/19[address] [facility] [place] [address] documented as of this encounter
--- OUTSIDE RECORDS SUMMARY | 2022-05-09 08:08 | XMS_ITS | Encounter Summary ---
:1940 Author Organization [employer] Address [address] [address] Care Team Providers Name Role Phone Judy Sorensen MD Primary Care Provider Reason for Visit Reason Onset Date Comments Refill 08/15/2017 raNITIdine (ZANTAC) 300 MG tablet Encounter Details Date Type Department Care Team Description 08/15/2017 Refill [facility] Gwen Sorensen MD Refill (raNITIdine Medicine [address] (ZANTAC) 300 MG tablet) [address] [place] [address] [phone] (Wo rk) Social History Tobacco Use Types [...] mouth at bedtime as needed for Heartburn. GER COST Interface, Out [employer] Prov Query - 08/15/2017 12:27 PM CST [...] GARCÍA) Next scheduled visit: None Powered by [employer], Reference: [id number], 08/15/2017 12:27:27 PM MANAGER COST, Pool: LEDBETTER FP REFILL ([id number]) GER COST documented in this encounter Plan of Treatment Not on filedocumented as of this encounter Visit Diagnoses Not on filedocumented in this encounter Care Teams Loop Puller Relationship Specialty Start Date End Date Judy Sorensen MD PCP - General 12/18/10 05/02/18 [address] [place] [address] documented as of this encounter
--- OUTSIDE RECORDS SUMMARY | 2022-05-09 08:08 | XMS_ITS | Encounter Summary ---
:1940 Author Organization [facility] Address [address] [place] [address] Care Team Providers Name Role Phone Unavailable Primary Care Provider Unavailable Reason for Visit Reason Comments Communication Outside films/COPD Clinic Encounter Details Date Type Department Care Team Description 06/01/2021 Clinical Division of Demarcus Langley, Communication Communication Pulmonary Medicine [place] (Outside films/COPD in [address]) [place], [place] [address] [facility] [address] [place], [place] [phone] (Work) [phone] Social History Tobacco Use Types Packs/Day Years [...] or relatives? How often do you attend restorationist or Never 2020 jainism services? Do you belong to any clubs or No 06/11/2021 organizations such as restorationist groups, unions, fraternal or athletic groups, or [...] slept in a nursing home (including now)? Sex Assigned at Date Recorded [...] 1:33 PM CDT Called [facility] at [phone] requesting films from 2015 and was asked to fax a request to [phone] and they would be pushing the films to us for an appointment on 06/14/2021. documented in this encounter Plan of Treatment Not on filedocumented as of this encounter Visit Diagnoses Not on filedocumented in this encounter
--- OUTSIDE RECORDS SUMMARY | 2022-05-09 08:08 | XMS_ITS | Encounter Summary ---
:1940 Author Organization [facility] Address [address], [place] [address] Care Team Providers Name Role Phone Judy Sorensen MD Primary Care Provider Reason for Visit Procedure/Equipment (Routine) - Incomplete Specialty Diagnoses / Procedures Referred By Contact Refer red To Contact Diagnoses Abnormal finding on breast imaging Judy Sorensen MD Procedures [facility] Breast Rt [address] [place], [place] [address] Referral ID Status Reason Start Date Expiration Date Visits V isits Requested Authorized [id number] Incomplete 02/10/2017 05/12/2018 1 1 Encounter Details Date Type Department Care Team Description 02/16/2017 Imaging [facility] 385 Sidney Sorensen MD Abnormal finding on Mammography 6600 [facility] breast imaging [address] [place], [place] [address] [address] [place] [address] [phone] Social History Tobacco Use Types Packs/Day Years [...] Name Priority Date/Time Associated Diagnosis Comme nts [facility] US BREAST RT Routine 02/16/2017 10:36 [...] and breast ultrasound follow-up is recommended. The [facility] will att empt to schedule [...] and breast ultrasound follow-up is recommended. The [facility] will att empt to schedule [...] and breast ultrasound follow-up is recommended. The [facility] will att empt to schedule the recommended [...] and breast ultrasound follow-up is recommended. The [facility] will att empt to schedule [...] breast documented in this encounter Care Teams Supervisor Patching Relationship Specialty Start Date End Date Judy Sorensen MD PCP - General 12/18/10 05/02/18 [address] [place] [address] documented as of this encounter
--- OUTSIDE RECORDS SUMMARY | 2022-05-09 08:08 | XMS_ITS | Encounter Summary ---
:1940 Author Organization [employer] Address [address] [place] [address] Care Team Providers Name Role Phone Needs Pcp, Assignment Primary Care Provider Reason for Visit Reason Comments Refill atenolol (TENORMIN) 25 MG ta blet [Pharmacy Med Name: ATENOLOL 25MG] Encounter Details Date Type Department Care Team Description 08/16/2018 Refill [facility] Gwen Sorensen MD Refill (atenolol Medicine [address] (TENORMIN) 25 MG tablet [address] [place], [place] [Pharmacy Med Name: [place] [address] ATENOLOL 25MG]) [phone] (Wo rk) Social History Tobacco Use Types [...] Provider: DONTE TIPTON Ordering User: EDNA LEVY K HOE OPERATOR Interface, Out [employer] Prov Query - 08/16/2018 2:04 PM CST [...] 82 mm Hg on 08/30/2017 Powered by ?, Reference: [id number], 08/16/2018 2:04:12 PM TRACK HOE OPERATOR, Pool: KHLOE FP REFILL ([id number]) K HOE OPERATOR documented in this encounter Plan of Treatment Not on filedocumented as of this encounter Visit Diagnoses Not on filedocumented in this encounter Care Teams Barrel Drainer Relationship Specialty Start Date End Date Needs Pcp, Assignment PCP - General 05/03/18 01/01/19 [place] [address] documented as of this encounter
--- OUTSIDE RECORDS SUMMARY | 2022-05-09 08:08 | XMS_ITS | Encounter Summary ---
:1940 Author Organization [employer] Address [address] [place] [address] Care Team Providers Name Role Phone Needs Pcp, Assignment Primary Care Provider Reason for Visit Reason Comments Refill raNITIdine (ZANTAC) 300 MG t ablet [Pharmacy Med Name: RANITIDINE 300MG] Encounter Details Date Type Department Care Team Description 10/24/2018 Refill [facility] Gwen Sorensen MD Refill (raNITIdine Medicine [address] (ZANTAC) 300 MG tablet [address] [place], [place] [Pharmacy Med Name: [place] [address] RANITIDINE 300MG]) [phone] (Wo rk) Social History Tobacco Use Types [...] AM CST Appointment Letter PRINTED & Sent R CONTROL COUNSELOR Crystal Catalan RN - 10/25/2018 10:09 AM CST OFFICE APPOINTMENT NEEDED Please notify patient to schedule an appointment within 30 days. Requested Prescriptions Pending Prescriptions Disp Refills ??? raNITIdine (ZANTAC) 300 MG tablet [Pharmacy Med Name: RANITIDINE 300MG] 90 Tablet 0 Sig: Take 1 Tablet by mouth at bedtime as needed for Heartburn. R CONTROL COUNSELOR Interface, Out Loci Controls Prov Query - 10/24/2018 11:21 AM CST [...] GARCÍA) Next scheduled visit: None [facility], Reference: [id number], 10/24/2018 11:21:49 AM VITALY, Markos: KHLOE VICTOR REFILL ([id number]) R CONTROL COUNSELOR documented in this encounter Plan of Treatment Not on filedocumented as of this encounter Visit Diagnoses Not on filedocumented in this encounter Care Teams Mechanical Facilities Technician Relationship Specialty Start Date End Date Needs Pcp, Assignment PCP - General 05/03/18 01/01/19 [place] [address] documented as of this encounter
--- OUTSIDE RECORDS SUMMARY | 2022-05-09 08:08 | XMS_ITS | Encounter Summary ---
:1940 Author Organization [employer] Address [address] [place] [address] Care Team Providers Name Role Phone Judy Sorensen MD Primary Care Provider Reason for Visit Procedure/Equipment (Routine) - Incomplete Specialty Diagnoses / Procedures Referred By Contact Refer red To Contact Diagnoses Follow up Judy Sorensen MD Procedures [facility] US Breast Rt [address] [place] [address] Referral ID Status Reason Start Date Expiration Date Visits V isits Requested Authorized [id number] Incomplete 07/21/2017 10/20/2018 1 1 Encounter Details Date Type Department Care Team Description 08/15/2017 Imaging [place] [address] Sidney Sorensen MD Follow up Mammography [address] C[facility] [address] [place] [address] [place], [place] [address] [phone] Social History Tobacco Use Types Packs/Day Years [...] Name Priority Date/Time Associated Diagnosis Comme nts [facility] US BREAST RT Routine 08/15/2017 11:40 AM Follow up Resu lts for this DEMO COORDINATOR procedure are i n the results section. documented in this encounter Results [facility] US Breast Rt (08/15/2017 11:40 AM DEMO COORDINATOR) Anatomical Region Laterality Modality Breast Right Ultrasound Specimen (Source) Anatomical Collection Method Collection Time Re ceived Time Location / / Volume Laterality 08/15/2017 11:30 AM DEMO COORDINATOR Impressions 08/15/2017 11:50 AM DEMO COORDINATOR IMPRESSION: ACR BI-RADS 2: ??Benign. RECOMMENDATION: Routine yearly mammograp hy. The patient is due for bilateral mammography on or after 02/10/2018. The results and recommendations of this examination will be communicated to the patient by the [facility] and we will attempt to schedule any recommended imaging follow up with the patient. Narrative 08/15/2017 11:50 AM DEMO COORDINATOR EXAMINATION: Right breast tomosynthesis and ultrasound. HISTORY: Short interval follow-up of a r ight breast mass. COMPARISON: Mammography and ultrasound , mammography 02/10/2017, 08/18/2015, 04/01/2014. FINDINGS: Right breast tomosynthesis suma ws no suspicious change in the focal well-circumscribed mass at approximately 8:00 position posteriorly. No suspicious correlate seen by ultrasound. ?? Judy Sorensen MD RAD ILIA [facility] Mammogram Diag Rt W Andrews (08/15/2017 11:14 AM DEMO COORDINATOR) Anatomical Region Laterality Modality Breast Right Mammography Specimen (Source) Anatomical Collection Method Collection Time Re ceived Time Location / / Volume Laterality 08/15/2017 11:07 AM DEMO COORDINATOR Impressions 08/15/2017 11:50 AM DEMO COORDINATOR IMPRESSION: ACR BI-RADS 2: ??Benign. RECOMMENDATION: Routine yearly mammograp hy. The patient is due for bilateral mammography on or after 02/10/2018. The results and recommendations of this examination will be communicated to the patient by the [facility] and we will attempt to schedule any recommended imaging follow up with the patient. Narrative 08/15/2017 11:50 AM DEMO COORDINATOR EXAMINATION: Right breast tomosynthesis and ultrasound. HISTORY: [...] up documented in this encounter Care Teams Feather Sawyer Relationship Specialty Start Date End Date Judy Sorensen MD PCP - General 12/18/10 05/02/18 [address] [place] [address] documented as of this encounter
--- OUTSIDE RECORDS SUMMARY | 2022-05-09 08:08 | XMS_ITS | Encounter Summary ---
:1940 Author Organization [employer] Address [address] [place] [address] Care Team Providers Name Role Phone Judy Sorensen MD Primary Care Provider Reason for Visit Reason Onset Date Comments Refill 08/15/2017 chlorthalidone (HYGR OTON) 25 MG tablet; atenolol (TENORMIN) 25 MG tablet; atorvastatin (LIPITOR) 40 MG tablet Encounter Details Date Type Department Care Team Description 08/15/2017 Refill [facility] Gwen Sorensen MD Refill (chlorthalidone Medicine [address] (HYGROTON) 25 MG tablet; [address] [place], [place] atenolol (TENORMIN) [address] [place] [address] MG tablet; atorvastatin [phone] (Wo rk) (LIPITOR) 40 MG tablet) Social [...] rx and need appt for further refills TOR WORKER Judy Larsen MD - 08/16/2017 12:44 PM CST Fasting labs ordered. Needs visit. TOR WORKER Ese Yang RN - 08/16/2017 8:39 AM [...] Sig: Take 1 Tab by mouth daily. TOR WORKER Interface, Out Surescripts Prov Query - 08/15/2017 [...] 66 mm Hg on 05/17/2016 Powered by [employer], Reference: [id number], 08/15/2017 12:27:27 PM MONITOR WORKER, Pool: KHLOE FP REFILL ([id number]) atorvastatin (LIPITOR) 40 MG tablet Medication started: 10/16/2013 Last ordered by JUDY LARSEN: 05/16/2017 (91 days ago) QTY: 90, Refills: 0, Sig: take 1 tab by mouth daily. (unchanged) -> An office visit is overdue (performed over 15 months ago, required every 12 months). Last qualifying visit: 05/17/2016 (with JUDY LARSEN) Next scheduled visit: None [facility], Reference: [id number], 08/15/2017 12:27:27 PM Markos HAIDER: KHLOE FP REFILL ([id number]) chlorthalidone (HYGROTON) 25 MG tablet Medication started: [...] K: 3.9 mEq/L on 06/12/2017 Powered by [employer], Reference: [id number], 08/15/2017 12:27:27 PM MONITOR WORKER, Pool: LEDBETTER FP REFILL ([id number]) TOR WORKER documented in this encounter Plan of Treatment Not on filedocumented as of this encounter Results Lipid Panel and Direct LDL(If Needed) (08/30/2017 10:28 AM MONITOR WORKER) Analysis Performed At Patho logist Time Signature [...] / Volume Laterality 08/30/2017 10:28 08/30/2017 AM MONITOR WORKER 10:28 AM MONITOR WORKER Narrative PN SOFT - 08/30/2017 11:11 AM MONITOR WORKER Performed at [facility] [address] [place] [address] CLIA number [id number] Judy Sorensen MD LAB_1 Performing Organization Address [facility] Phon e Number PN SOFT [address] [place] [address] (ABNORMAL) Basic Metabolic Panel (08/30/2017 10:28 AM MONITOR WORKER) athologist Signature Creatinine Serum 0.80 0.55 - [...] / Volume Laterality 08/30/2017 10:28 08/30/2017 AM MONITOR WORKER 10:28 AM MONITOR WORKER Narrative PN SOFT - 08/30/2017 11:11 AM MONITOR WORKER Performed at [facility] [address] [place] [address] CLIA number [id number] Judy Sorensen MD LAB_1 Performing Organization Address [facility] Phon e Number PN SOFT [address] [place] [address] documented in this encounter Visit Diagnoses Diagnosis Essential hypertension (HRC) - Primary Unspecified essential hypertension Abdominal aortic aneurysm (AAA) without rupture (HRC) Essential hypertension (HRC) Unspecified essential hypertension documented in this encounter Care Teams Automation Qa Analyst Relationship Specialty Start Date End Date Judy Sorensen MD PCP - General 12/18/10 05/02/18 [address] [place] [address] documented as of this encounter
--- OUTSIDE RECORDS SUMMARY | 2022-05-09 08:08 | XMS_ITS | Encounter Summary ---
:1940 Author Organization [facility] Address [address] [place] [address] Care Team Providers Name Role Phone Unavailable Primary Care Provider Unavailable Reason for Referral Outpatient (Routine) - Closed Specialty Diagnoses / Procedures Referred By Contact Refer red To Contact Demarcus Langley M.D. [facility] [address] [place] [address] [phone] Referral ID Status Reason Start Date Expiration Date Visits Requ ested Visits Authorized [id number] Closed 06/14/2021 06/14/2022 1 1 Specialty Diagnoses / Procedures Referred By Contact Refer red To Contact Demarcus Langley M.D. [facility] [address] [place] [address] [phone] Referral ID Status Reason Start Date Expiration Date Visits Requ ested Visits Authorized utpatient (Routine) - Closed Specialty Diagnoses / Procedures Referred By Contact Refer red To Contact Diagnoses Preoperative Examination Cardiovascular Demarcus Langley M.D. [facility] Procedures ECG 12 Lead [address] [place] [address] [phone] Referral ID Status Reason Start Date Expiration Date Visits Requ ested Visits Authorized [id number] Closed 06/14/2021 06/14/2022 1 1 utpatient (Routine) - Closed Specialty Diagnoses / Procedures Referred By Contact Refer red To Contact Diagnoses Murmur Aortic Outflow Demacrus Langley M.D. [place] [facility] Procedures Echo Transthoracic (TTE) [address] [place] [address] Referral ID Status Reason Start Date Expiration Date Visits Requ ested Visits Authorized [id number] Closed 06/14/2021 06/14/2022 1 1 Reason for Visit Appointment Request (Routine) - Closed Specialty Diagnoses / Procedures Referred By Contact Refer red To Contact Pulmonary Medicine Diagnoses Chronic Obstructive Pulmonary Disease (HCC) Referral ID Status Reason Start Date Expiration Date Visits Requ ested Visits Authorized [id number] Closed 05/26/2021 05/26/2022 1 1 Encounter Details Date Type Department Care Team Description 06/14/2021 Comprehensive Visit Division of Demarcus Langley [place] (Primary Dx); Pulmonary Medicine [place] Chronic Obstructive Pulmonary Disease (H CC); in [place], [facility] 1[address] [facility] Emphysema (HCC); [place], [place] Preoperative Examination Car diovascular; [address] [facility] [address] Murmur Aortic Outflow [place], [place] [phone] [address] (Work) [phone] Social History Tobacco Use Types Packs/Day Years [...] do you attend quaker or Never 2020 yarsani services? Do you belong to any clubs [...] COPD. Her primary care is with the [facility] system which is a non [facility] electronic [facility] records. #1 COPD #2 [...] access my note and the reports on [facility] Everywhere. Discontinued Medications: There are no discontinued [...] ECHO DOPPLER COLOR (06/14/2021 3:58 PM CDT) [facility] Method Time Signature Ejection Fraction 66 [...] . For the complete report, see the [employer] Documents. Narrative 06/14/2021 4:01 PM CDT For the complete report, see the [employer] Documents. Final Impressions 1. Normal left ventricular [...] Signature Ventricular Rate 81 BPM MUSE ECG/Min PA Interval 172 ms MUSE QRSD Interval 86 ms MUSE QT Interval 408 ms MUSE QTC Interval 474 ms MUSE P [place] 85 degrees MUSE R [place] 80 degrees MUSE T Wave [place] 48 degrees MUSE Specimen Anatomical Collection Method [...] 06/14/2021 DTL Black/ mL/min/BSA 11:57 AM CDT [place] Island[place] Comment: ----ADDITIONAL INFORMATION---- Estimated GFR calculated using [...] Organization Address City/State/ZIP Code Phon e Number [facility] - [address] [place], [place] [address] [facility] [place] [address] [facility] [address] (ABNORMAL) CBC with Differential, Blood (06/14/2021 10:28 AM CDT) [facility] gist Method Time Signature Hemoglobin [...] Organization Address City/State/ZIP Code Phon e Number [facility] - [address] [place], [place] [address] [facility] [place] [address] [facility] [address] Interpretation of [...]
--- OUTSIDE RECORDS SUMMARY | 2022-05-09 08:08 | XMS_ITS | Encounter Summary ---
:1940 Author Organization [employer] Address [address] [place] [address] Care Team Providers Name Role Phone Judy Sorensen MD Primary Care Provider Reason for Visit Reason Comments Annual Exam fasting Encounter Details Date Type Department Care Team Description 08/30/2017 Office Visit [facility] Judy Sorensen, [facility] adult exam (Primary Dx); Medicine Essential hypertension; [address] [facility] Tobacco use disorder; [place] [address] [place], [place] Hypokalemia; [phone] Need for Streptococcus pneumoniae vaccin ation; [phone] (Wo rk) Need for influenza vaccination; Simple [...] Comments Blood Pressure 128/82 08/30/2017 11:24 AM MUTUEL TELLER Pulse 68 08/30/2017 11:24 AM MUTUEL TELLER Temperature - - Respiratory Rate - - Oxygen Saturation - - Inhaled Oxygen Concentration - - Weight 51.3 kg (113 lb) 08/30/2017 11:24 AM MUTUEL TELLER Height 151.8 cm (4' 11.75) 08/30/2017 11:24 AM MUTUEL TELLER Body Mass Index 22.25 08/30/2017 11:24 AM MUTUEL TELLER documented in this encounter Progress Notes Judy [...] Adenomatous polyp 08/31/2017 Overview Note: Colonoscopy at [facility] 2013, due 2018 ??? Abdominal aortic aneurysm (AAA) without rupture ([facility]) 06/21/2016 Overview Note: 2016, 3.0 cm proximal. Right common iliac 2.4 cm. ??? 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 (1.9 cm left) 2015 ??? Simple chronic bronchitis ([facility]) 05/17/2016 ??? Internal hemorrhoids 02/29/2008 Overview Note: Hemorrhoids Internal NOS ??? Diverticulosis of large intestine 02/29/2008 Overview Note: Diverticulosis Colon ??? Essential hypertension ([facility]) 12/02/2005 Overview Note: LW Onset: ; Hypertension ??? Osteopenia of multiple sites 07/14/2004 Overview Note: Osteopenia ??? Benign neoplasm of colon 07/14/2004 Overview Note: LW Onset: 2000 ; Polyp Colon Adenomatous ??? Tobacco use disorder ([facility]) 02/22/2003 Overview Note: Patient declines attempts to [...] ??? Cancer, Colon Negative Family History ??? Shell Syndrome Negative Family History ??? Diethylstilbestrol Exposure [...] Annual medication review. Medicare prevent visit encouraged. EL TELLER documented in this encounter Plan of Treatment [...] bronchitis documented in this encounter Care Teams Sole Tier Relationship Specialty Start Date End Date Judy Sorensen MD PCP - General 12/18/10 05/02/18 [address] [place] [address] documented as of this encounter
--- OUTSIDE RECORDS SUMMARY | 2022-05-09 08:08 | XMS_ITS | Encounter Summary ---
:1940 Author Organization [employer] Address [address], [place] [address] Care Team Providers Name Role Phone Judy Sorensen MD Primary Care Provider Reason for Visit Reason Onset Date Comments Lab/Rad Request 05/24/2017 Encounter Details Date Type Department Care Team Description 05/24/2017 Telephone [facility] Gwen Sorensen MD Lab/Rad Request [facility] [address] [place] [address] [place] [address] [phone] Social History Tobacco Use Types Packs/Day Years [...] do once 's prostate surgery done at [facility]. Lenora Schroeder MD - 05/24/2017 12:04 PM [...] like to get labs done. Lives in [facility] will be in [place] tomorrow. Callback Tripp[employer] lock (Self) [phone] (H) Call her if labs will be ready so that she might stop. Lorraine Skelton - 05/24/2017 11:03 AM CDT Lab/Radiology Requests Primary Care Provider: Judy Larsen MD What test is needed and when? Pt states- blood work for her medications Why is test needed/requested? medications *If symptom related, send to triage Brand Director: Sol Ángel Pj Best call back number: [...] - 05/25/2017 12:41 PM CDT Performed at [facility], [address] [place] [address] CLIA number [id number] Lenora Schroeder MD LAB_1 Performing Organization Address [facility] Phon e Number PN SOFT [address] [place] [address] Alanine Aminotransferase - ALT (SGPT) (05/25/2017 12:37 PM CDT) [facility] Time Signature Alanine 15 9 - 55 PN SOFT Aminotransferase U/L Specimen Anatomical Collection Method Collection Time Receive d Time (Source) Location / / Volume Laterality 05/25/2017 12:37 05/25/2017 PM CDT 12:37 PM CDT Narrative PN SOFT - 05/25/2017 3:53 PM CDT Performed at [facility], [address] [place] [address] CLIA number [id number] Lenora Schroeder MD LAB_1 Performing Organization Address [facility] Phon e Number PN SOFT [address] [place] [address] Lipid Panel - LDLD If Trig High [...] - 05/25/2017 3:53 PM CDT Performed at [facility], [address] [place] [address] CLIA number [id number] Lenora Schroeder MD LAB_1 Performing Organization Address [facility] Phon e Number PN SOFT [address] [place] [address] (ABNORMAL) Basic Metabolic Panel (05/25/2017 12:37 PM [...] - 05/25/2017 3:53 PM CDT Performed at [facility], [address] [place] [address] CLIA number [id number] Lenora Schroeder MD LAB_1 Performing Organization Address [facility] Phon e Number PN SOFT [address] [place] [address] documented in this encounter Visit Diagnoses Diagnosis Essential hypertension (HRC) - Primary Unspecified essential hypertension Abdominal aortic aneurysm (AAA) without rupture (HRC) Hypokalemia - Primary Hypopotassemia Essential hypertension (HRC) Unspecified essential hypertension Abdominal aortic aneurysm (AAA) without rupture (HRC) documented in this encounter Care Teams Architectural Engineering Teacher Relationship Specialty Start Date End Date Judy Sorensen MD PCP - General 12/18/10 05/02/18 [address] [place] [address] documented as of this encounter
--- OUTSIDE RECORDS SUMMARY | 2022-05-09 08:08 | XMS_ITS | Encounter Summary ---
:1940 Author Organization [employer] Address [address] [place] [address] Care Team Providers Name Role Phone Judy Sorensen MD Primary Care Provider Reason for Visit Reason Onset Date Comments Refill 05/16/2017 atenolol (TENORMIN) 25 MG tablet Encounter Details Date Type Department Care Team Description 05/16/2017 Refill [facility] Gwen Sorensen MD Refill (atenolol Medicine [address] (TENORMIN) 25 MG [address] [place], [place] tablet) [place] [address] [phone] (Wo rk) Social History Tobacco Use Types [...] 1 Tab by mouth daily. Interface, Out Showbie Prov Query - 05/16/2017 3:16 PM CDT [...] 66 mm Hg on 05/17/2016 Powered by [employer], Reference: [id number], 05/16/2017 3:16:22 PM CDT, Pool: KHLOE FP REFILL ([id number]) documented in this encounter Plan of Treatment Not on filedocumented as of this encounter Visit Diagnoses Not on filedocumented in this encounter Care Teams Retail Support Associate Relationship Specialty Start Date End Date Judy Sorensen MD PCP - General 12/18/10 05/02/18 [address] [place] [address] documented as of this encounter
--- OUTSIDE RECORDS SUMMARY | 2022-05-09 08:08 | XMS_ITS | Encounter Summary ---
:1940 Author Organization [email or web address] Address [address], [place] [address] Care Team Providers Name Role Phone Judy Sorensen MD Primary Care Provider Encounter Details Date Type Department Care Team Description 05/16/2017 Refill Order [facility] Gwen Sorensen MD [address] [address] [place] [address] [phone] Social History Tobacco Use Types Packs/Day Years [...] - NEXT LAB APPOINTMENT: None Powered by [employer], Reference: [id number], 05/16/2017 3:25:51 PM CDT, Pool: LEDBETTER FP REFILL ([id number]) documented in this encounter Plan of Treatment Not on filedocumented as of this encounter Visit Diagnoses Diagnosis Encounter for long-term (current) use of medications - Primary Encounter for long-term (current) use of other medications documented in this encounter Care Teams Street Superintendent Relationship Specialty Start Date End Date Judy Sorensen MD PCP - General 12/18/10 05/02/18 [address] [place] [address] documented as of this encounter
--- OUTSIDE RECORDS SUMMARY | 2022-05-09 08:08 | XMS_ITS | Encounter Summary ---
:1940 Author Organization [employer] Address [address], [place] [address] Care Team Providers Name Role Phone Judy Sorensen MD Primary Care Provider Reason for Visit Procedure/Equipment (Routine) - Incomplete Specialty Diagnoses / Procedures Referred By Contact Refer red To Contact Diagnoses Follow up Judy Sorensen MD Procedures [facility] Mammogram Diag Rt W Lala MM Mammogram Diag Rt W Lala [address] [place], [place] [address] Referral ID Status Reason Start Date Expiration Date Visits V isits Requested Authorized [id number] Incomplete 07/21/2017 10/20/2018 1 1 Encounter Details Date Type Department Care Team Description 08/15/2017 Imaging [place] [address] Sidney Sorensen MD Follow up Mammography [address] [place] [address] [place] [address] [phone] Social History Tobacco Use Types Packs/Day Years [...] Name Priority Date/Time Associated Diagnosis Comme nts [facility] MAMMOGRAM DIAG Routine 08/15/2017 11:14 AM Follow up Re sults for this RT W 3D LALA DIGITAL STRATEGY MANAGER procedure are i n the results section. documented in this encounter Results [facility] US Breast Rt (08/15/2017 11:40 AM DIGITAL STRATEGY MANAGER) Anatomical Region Laterality Modality Breast Right Ultrasound Specimen (Source) Anatomical Collection Method Collection Time Re ceived Time Location / / Volume Laterality 08/15/2017 11:30 AM DIGITAL STRATEGY MANAGER Impressions 08/15/2017 11:50 AM DIGITAL STRATEGY MANAGER IMPRESSION: ACR BI-RADS 2: ??Benign. RECOMMENDATION: Routine yearly mammograp hy. The patient is due for bilateral mammography on or after 02/10/2018. The results and recommendations of this examination will be communicated to the patient by the [facility] and we will attempt to schedule any recommended imaging follow up with the patient. Narrative 08/15/2017 11:50 AM DIGITAL STRATEGY MANAGER EXAMINATION: Right breast tomosynthesis and ultrasound. HISTORY: Short interval follow-up of a r ight breast mass. COMPARISON: Mammography and ultrasound , mammography 02/10/2017, 08/18/2015, 04/01/2014. FINDINGS: Right breast tomosynthesis suma ws no suspicious change in the focal well-circumscribed mass at approximately 8:00 position posteriorly. No suspicious correlate seen by ultrasound. ?? Judy Sorensen MD RAD [facility] Mammogram Diag Rt W Lala (08/15/2017 11:14 AM DIGITAL STRATEGY MANAGER) Anatomical Region Laterality Modality Breast Right Mammography Specimen (Source) Anatomical Collection Method Collection Time Re ceived Time Location / / Volume Laterality 08/15/2017 11:07 AM DIGITAL STRATEGY MANAGER Impressions 08/15/2017 11:50 AM DIGITAL STRATEGY MANAGER IMPRESSION: ACR BI-RADS 2: ??Benign. RECOMMENDATION: Routine yearly mammograp hy. The patient is due for bilateral mammography on or after 02/10/2018. The results and recommendations of this examination will be communicated to the patient by the [facility] and we will attempt to schedule any recommended imaging follow up with the patient. Narrative 08/15/2017 11:50 AM DIGITAL STRATEGY MANAGER EXAMINATION: Right breast tomosynthesis and ultrasound. HISTORY: Short interval follow-up of a r ight breast mass. COMPARISON: Mammography and ultrasound , mammography 02/10/2017, 08/18/2015, 04/01/2014. FINDINGS: Right breast tomosynthesis suma ws no suspicious change in the focal well-circumscribed mass at approximately 8:00 position posteriorly. No suspicious correlate seen by ultrasound. ?? Judy Sorensen MD RAD [facility] documented in this encounter Visit Diagnoses Diagnosis Follow up Follow up documented in this encounter Care Teams Machine Tool Mechanic Relationship Specialty Start Date End Date Judy Sorensen MD PCP - General 12/18/10 05/02/18 [address] [place] [address] documented as of this encounter
--- OUTSIDE RECORDS SUMMARY | 2022-05-09 08:09 | XMS_ITS | Encounter Summary ---
:1940 Author Organization [employer] Address [address], [place] [address] Care Team Providers Name Role Phone Judy Sorensen MD Primary Care Provider Encounter Details Date Type Department Care Team Description 02/09/2016 Refill Order [facility] Gwen Sorensen MD [address] [address] [place] [address] [phone] Social History Tobacco Use Types Packs/Day Years [...] - NEXT LAB APPOINTMENT: None Powered by [employer], Reference: [id number], 02/09/2016 3:39:31 PM MURRAYTMarkos: KHLOE FP REFILL ([id number]) Lorene Becerra CMA - 02/10/2016 7:31 AM CDT Lab orders have been placed per protocol. [employer] documented in this encounter Plan of Treatment Not on filedocumented as of this encounter Visit Diagnoses Diagnosis Encounter for long-term (current) use of medications - Primary Encounter for long-term (current) use of other medications documented in this encounter Care Teams Aerotriangulation Specialist Relationship Specialty Start Date End Date Judy Sorensen MD PCP - General 12/18/10 05/02/18 [address] [place] [address] documented as of this encounter
--- OUTSIDE RECORDS SUMMARY | 2022-05-09 08:09 | XMS_ITS | Encounter Summary ---
:1940 Author Organization [employer] Address [address] [place] [address] Care Team Providers Name Role Phone Judy Sorensen MD Primary Care Provider Encounter Details Date Type Department Care Team Description 04/28/2015 Imaging [place] [facility] Postmenopausal vaginal [address] [facility] [place] [address] Social History Tobacco Use Types Packs/Day Years [...] Nonvisualization of the ovaries. Judy Sorensen MD [facility] documented in this encounter Visit Diagnoses Diagnosis Postmenopausal vaginal bleeding Postmenopausal bleeding documented in this encounter Care Teams Gas Turbine Powerplant Mechanic Relationship Specialty Start Date End Date Judy Sorensen MD PCP - General 12/18/10 05/02/18 [address] [place] [address] documented as of this encounter
--- OUTSIDE RECORDS SUMMARY | 2022-05-09 08:09 | XMS_ITS | Encounter Summary ---
:1940 Author Organization [employer] Address [address] [place] [address] Care Team Providers Name Role Phone Judy Sroensen MD Primary Care Provider Encounter Details Date Type Department Care Team Description 05/17/2016 Lab Visit [facility]ator y Abnormal weight loss; [address] [employer] Essential hypertension; [place] [address] Screening cholesterol level [phone] Social History Tobacco Use Types Packs/Day Years [...] - 05/17/2016 2:40 PM CDT Performed at [facility], [address] [place] [address] CLIA number [id number] Judy Sorensen MD LAB_1 Performing Organization Address [...] - 05/17/2016 2:40 PM CDT Performed at [facility], [address] [place] [address] CLIA number [id number] Judy Sorensen MD LAB_1 Performing Organization Address [facility] Phon e Number HP CONVERSION Complete Blood [...] - 05/17/2016 1:20 PM CDT Performed at [facility], [address] [place] [address] CLIA number [id number] Judy Sorensen MD LAB_1 Performing Organization Address [facility] Phon e Number HP CONVERSION ALT (SGPT) (05/17/2016 1:07 PM CDT) [facility] gist Method Time Signature Alanine 10 9 - 55 HP CONVERSION Aminotransferase U/L Specimen Anatomical Collection Method Collection Time Receive d Time (Source) Location / / Volume Laterality 05/17/2016 1:07 PM 6 1:07 CDT PM CDT Narrative HP CONVERSION - 05/17/2016 2:40 PM CDT Performed at [facility], [address] [place] [address] CLIA number [id number] Judy Sorensen MD LAB_1 Performing Organization Address City/[facility] Phon e Number HP CONVERSION Thyroid Stimulating Hormone (05/17/2016 1:07 PM CDT) P athologist Signature Thyroid 1.02 0.20 - HP CONVERSION Stimulating 4.50 Hormone uIU/mL Specimen Anatomical Collection Method Collection Time Receive d Time (Source) Location / / Volume Laterality 05/17/2016 1:07 PM 6 4:45 CDT PM CDT Narrative HP CONVERSION - 05/17/2016 5:23 PM CDT Performed at [facility], [address] [place] [address] CLIA number [id number] Judy Sorensen MD LAB_1 Performing Organization Address City/State/ZIP Code Phon e Number HP CONVERSION documented in this encounter Visit Diagnoses Diagnosis Abnormal weight loss Loss of weight Essential hypertension (HRC) Unspecified essential hypertension Screening cholesterol level Screening for lipoid disorders documented in this encounter Care Teams Snow Maker Relationship Specialty Start Date End Date Judy Sorensen MD PCP - General 12/18/10 05/02/18 [address] [place] [address] documented as of this encounter
--- OUTSIDE RECORDS SUMMARY | 2022-05-09 08:09 | XMS_ITS | Encounter Summary ---
:1940 Author Organization [facility] Address [address] [place] [address] Care Team Providers Name Role Phone Judy Sorensen MD Primary Care Provider Reason for Visit Procedure/Equipment (Routine) - Incomplete Specialty Diagnoses / Procedures Referred By Contact Refer red To Contact Diagnoses Abnormal CAT scan Judy Sorensen MD Procedures [facility] [address] [address], [place] [address] Referral ID Status Reason Start Date Expiration Date Visits V isits Requested Authorized [id number] Incomplete 06/13/2016 09/12/2017 1 1 Encounter Details Date Type Department Care Team Description 06/18/2016 Imaging [facility] Judy Sorensen MD Abnormal CAT scan [address] [place] [address] [place], [place] [address] (Wo rk) Social History Tobacco Use Types [...] aneurysmal at 2.4 cm. Judy Sorensen MD [facility] documented in this encounter Visit Diagnoses Diagnosis Abnormal CAT scan Other nonspecific (abnormal) findings on radiological and other examinations of body structure documented in this encounter Care Teams Centerless Grinding Machine Adjuster Relationship Specialty Start Date End Date Judy Sorensen MD PCP - General 12/18/10 05/02/18 [address] [place] [address] documented as of this encounter
--- OUTSIDE RECORDS SUMMARY | 2022-05-09 08:09 | XMS_ITS | Encounter Summary ---
:1940 Author Organization [employer] Address [address] [place] [address] Care Team Providers Name Role Phone Judy Sorensen MD Primary Care Provider Reason for Visit Reason Onset Date Comments Lab Questions 05/25/2016 Encounter Details Date Type Department Care Team Description 05/25/2016 Telephone [facility] Judy Christensen MD Lab Questions [address] [place] [address] [place], [place] [address] (Wo rk) Social History Tobacco Use Types [...] enough to have it done locally in [place]. Enma Jacob RN - 05/25/2016 12:37 PM CDT Reason for Call: PFT Next Steps: Document further recommendations and route to appropriate person or pool. Caller IS expecting a call back from Care Team. Additional Information: Spoke with pt. She is living in [place] and only place for PFT now is [facility]. She reports she was advised end of this month they will begin scheduling pt for this at . She would like to verify if provider feels it is ok to wait for this or if feels needs done now and should go to [facility]. Please advise. Lidia Riley - 05/25/2016 12:30 PM CDT Caller states she is to have a test done but not at [facility]. She is interested in having it done in [place], but it is a couple of weeks out. Pt wants to make sure it is ok to wait. documented in this encounter Plan of Treatment Not on filedocumented as of this encounter Visit Diagnoses Not on filedocumented in this encounter Care Teams Airport Operations Coordinator Relationship Specialty Start Date End Date Judy Sorensen MD PCP - General 12/18/10 05/02/18 [address] [place] [address] documented as of this encounter
--- OUTSIDE RECORDS SUMMARY | 2022-05-09 08:09 | XMS_ITS | Encounter Summary ---
:1940 Author Organization [employer] Address [address] [place] [address] Care Team Providers Name Role Phone Alethea [place] MD Primary Care Provider [phone] Encounter Details Date Type Department Care Team Description 05/18/2016 Notes/Orders [facility] Perla Bowman To bacco use disorder (Primary Dx); Radiology R, RN Current smoker; [address] [place] of [place] [address] Social History Tobacco Use Types Packs/Day Years [...] with current nicotine dependence and active smoking. LITIES ENGINEER Perla Bowman, RN - 06/20/2016 1:31 AM CDT Pt had CT lung screen in December 2014. At that time the radiologist recommended a follow-up CT lung screen in 12 months. Order pended and routed to physician to be signed. Once order signed, pt will be notified to schedule scan. LITIES ENGINEER documented in this encounter Plan of [...] health documented in this encounter Care Teams Patrol Sergeant Sheriff'S Office Relationship Specialty Start Date End Date Alethea [place] MD PCP - General Family Practice 01/02/191999 [place] [address] documented as of this encounter
--- OUTSIDE RECORDS SUMMARY | 2022-05-09 08:09 | XMS_ITS | Encounter Summary ---
:1940 Author Organization [employer] Address [address] [address] Care Team Providers Name Role Phone Judy Sorensen MD Primary Care Provider Reason for Visit Reason Comments Refill Encounter Details Date Type Department Care Team Description 02/09/2016 Refill [facility] Judy Christensen MD Refill [address] [place] [address] [place], [place] [address] (Wo rk) Social History Tobacco Use Types [...] (Sent to [facility]) Powered by [employer], Reference: [id number], 02/09/2016 3:39:30 PM CDT, Pool: LEDBETTER FP REFILL ([id number]) 2) chlorthalidone (HYGROTEN) 25 mg tablet - [...] (Sent to [facility]) Powered by [employer], Reference: [id number], 02/09/2016 3:39:30 PM CDT, Markos: KHLOE FP REFILL ([id number]) Ese Degroot RN - 02/09/2016 4:22 PM [...] Provider: JUDY GARCÍA Ordering User: ESE DEGROOT LEWARE ADMINISTRATOR documented in this encounter Plan of Treatment Not on filedocumented as of this encounter Visit Diagnoses Not on filedocumented in this encounter Care Teams Supervisor Modern Languages Relationship Specialty Start Date End Date Judy Sorensen MD PCP - General 12/18/10 05/02/18 [address] [place] [address] documented as of this encounter
--- OUTSIDE RECORDS SUMMARY | 2022-05-09 08:09 | XMS_ITS | Encounter Summary ---
:1940 Author Organization [facility] Address [address] [place] [address] Care Team Providers Name Role Phone Judy Sorensen MD Primary Care Provider Encounter Details Date Type Department Care Team Description 08/06/2015 Immunization [facility] Need for influenza [address] [facility] vaccination (Primary Dx) [place] [address] Social History Tobacco Use Types Packs/Day Years Used Date Smoking Tobacco: Never Assessed Sex Assigned at Date Recorded Not on file documented as of this encounter Plan of Treatment Not on filedocumented as of this encounter Visit Diagnoses Diagnosis Need for influenza vaccination - Primary Need for prophylactic vaccination and in oculation against influenza documented in this encounter Care Teams Shell Sieve Operator Relationship Specialty Start Date End Date Judy Sorensen MD PCP - General 12/18/10 05/02/18 [address] [place], [place] [address] documented as of this encounter
--- OUTSIDE RECORDS SUMMARY | 2022-05-09 08:09 | XMS_ITS | Encounter Summary ---
:1940 Author Organization [employer] Address [address] [address] Care Team Providers Name Role Phone Judy Sorensen MD Primary Care Provider Reason for Visit Reason Comments MEDICATION THERAPY MANAGEMENT Encounter Details Date Type Department Care Team Description 05/17/2016 Office Visit [facility] Judy Sorensen, Abno rmal weight loss (Primary Dx); Medicine Tobacco use disorder; [address] Chronic ischemic heart disease; [place] [address] [place], [place] Need for influenza vaccinati on; [phone] [address] Cough; [phone] (Wo rk) Urethral caruncle; PVD (harley pheral [...] Body Mass Index 22.06 10/16/2013 1:04 PM CARPORT ERECTOR documented in this encounter Patient Instructions Patient [...] ather blood counts. Long-term tobacco abuse. Negative [place]. She has no intent at this point [...] time more than half of the visit. ORT ERECTOR documented in this encounter Plan of [...] disorders documented in this encounter Care Teams Filing Or Registry Clerk Relationship Specialty Start Date End Date Judy Sorensen MD PCP - General 12/18/10 05/02/18 [address] [place] [address] documented as of this encounter
--- OUTSIDE RECORDS SUMMARY | 2022-05-09 08:09 | XMS_ITS | Encounter Summary ---
:1940 Author Organization [employer] Address [address] [place] [address] Care Team Providers Name Role Phone Judy Sorensen MD Primary Care Provider Encounter Details Date Type Department Care Team Description 05/17/2016 Imaging [facility] Abnormal weight loss [address] [place], [place] [address] Social History Tobacco Use Types Packs/Day Years [...] weight documented in this encounter Care Teams Watermaster Relationship Specialty Start Date End Date Judy Sorensen MD PCP - General 12/18/10 05/02/18 [address] [place] [address] documented as of this encounter
--- OUTSIDE RECORDS SUMMARY | 2022-05-09 08:09 | XMS_ITS | Encounter Summary ---
:1940 Author Organization [employer] Address [address] [place] [address] Care Team Providers Name Role Phone Judy Sorensen MD Primary Care Provider Reason for Visit Reason Comments EAR,PLUGGED Encounter Details Date Type Department Care Team Description 01/02/2015 Hospital Encounter [facility], Fanta Church, Bi lateral impacted Care [place] [address] [place] [address] [phone] Social History Tobacco Use Types Packs/Day Years [...] placed in pts right ear per Fanta Prinec PA-C. documented in this encounter Miscellaneous Notes Medication History - Juan Diego Oconnor MD - 01/02/2015 11:40 AM CDT INPATIENT MEDS Encounter Date: 01/02/15 carbamide peroxide (DEBROX) 6.5 % Drop Start Date:01/02/15, End Date:-, Frequency:2 TIMES DAILY *No Administrations Recorded ED AVS Snapshot - Juan Diego Oconnor MD - 01/02/2015 11:40 AM CDT Images from the original note were not included. [facility] [address] [place] [address] Dept: [phone] [email or web address] Sol Neal Pj 01/02/2015 10:02 AM Hospital Encounter Description: Female : 1940 Department: [facility] Dept Thank you for choosing [facility] for your health care visit with Fanta Prince PA-C. We are happy to care for you and provide this summary of your visit. Your primary dog daycare provider is currently listed as Judy Larsen MD. HERE IS WHAT YOU NEED TO KNOW To learn how you can take steps to stay as healthy as you can be visit [email or web address] HERE IS WHAT YOU NEED TO DO Call your clinic if you develop new or worsening symptoms or if you have questions about your visit or medications. Your to do list Future Orders Complete By Ordering Dept. DXA SCAN CONSULT ADULT (AMB) 03/24/2015 (Approximate) [facility] Scheduling Instructions: Your provider has recommended an appointment with Leon[facility] Bone Density. You may call [phone] to schedule your appointment. If you prefer, a naphtha washing system operator will contact you within the next [...] Ethnicity Preferred Language 1940 Female White Non- German This document contains confidential information about your [...] week documented in this encounter Care Teams Oracle Programmer Relationship Specialty Start Date End Date Judy Sorensen MD PCP - General 12/18/10 05/02/18 [address] [place] [address] documented as of this encounter
--- OUTSIDE RECORDS SUMMARY | 2022-05-09 08:09 | XMS_ITS | Encounter Summary ---
:1940 Author Organization [employer] Address [address] [place] [address] Care Team Providers Name Role Phone Judy Sorensen MD Primary Care Provider Reason for Visit Reason Comments Refill Encounter Details Date Type Department Care Team Description 05/05/[address] [facility] Judy Christensen MD Refill [address] [place] [address] [place], [place] [address] (Wo rk) Social History Tobacco Use Types [...] (Sent to [facility]) Powered by [employer], Reference: [id number], 05/05/2016 10:51:58 AM CDT, Pool: KHLOE FP REFILL ([id number]) 2) atorvastatin (LIPITOR) 40 mg tablet - [...] (Sent to [facility]) Powered by [employer], Reference: [id number], 05/05/2016 10:51:58 AM CDT, Pool: KHLOE VICTOR REFILL ([id number]) AP WORKER Cade Huff, RN - 05/05/2016 12:06 PM [...] from the original note were not included. [facility] Sol Oliva [address] [place] [address] May 06, 2016 Dear Sol Oliva, We recently received a renewal request for your prescription(s). While reviewing your chart, we noticed that you are due for a visit with your doctor. To receive future refills, please schedule an office visit within the next month. At [facility], your health care is important to us. Please call [phone] to schedule an appointment. Thank you for choosing [facility] for your health care needs. Your [facility] Primary Care Team AP WORKER documented in this encounter Plan of Treatment Not on filedocumented as of this encounter Visit Diagnoses Not on filedocumented in this encounter Care Teams Profile Saw Operator Relationship Specialty Start Date End Date Judy Sorensen MD PCP - General 12/18/10 05/02/18 [address] [place] [address] documented as of this encounter
--- OUTSIDE RECORDS SUMMARY | 2022-05-09 08:09 | XMS_ITS | Encounter Summary ---
:1940 Author Organization [facility] Address [address] [place] [address] Care Team Providers Name Role Phone Judy Sorensen MD Primary Care Provider Encounter Details Date Type Department Care Team Description 01/02/[address] Scan Tobacco use disorder [address] [place], [place] [address] Social History Tobacco Use Types Packs/Day Years [...] disorder documented in this encounter Care Teams Corn Husker Relationship Specialty Start Date End Date Judy Sorensen MD PCP - General 12/18/10 05/02/18 [address] [place] [address] documented as of this encounter
--- OUTSIDE RECORDS SUMMARY | 2022-05-09 08:09 | XMS_ITS | Encounter Summary ---
:1940 Author Organization [employer] Address [address] [place] [address] Care Team Providers Name Role Phone Judy Sorensen MD Primary Care Provider Reason for Visit Reason Comments Vaginal Discharge Encounter Details Date Type Department Care Team Description 04/28/2015 Office Visit [facility] Judy Sorensen, Vagi nal discharge (Primary Dx); Medicine MD Urethral caruncle; [address] [place] [address] [address] [phone] [place], [place] [address] Social History Tobacco Use Types Packs/Day Years [...] Body Mass Index 23.24 10/16/2013 1:04 PM HOME APPLIANCES MECHANIC documented in this encounter Progress Notes Judy [...] physically active with her stable angina and mcc tobacco habit, although has not beenofficially diagnosed [...] assess uterine lining, PAP. Can proceed with CATTLE BRANDER consult if the [place] is not highly [...] - 05/07/2015 9:40 AM CDT Performed at [facility], [address] [place] [address] FINAL GYNECOLOGICAL CYTOLOGY REPORT Pathology #: [id number] ?Date Obtained: 04/28/2015 ? Date Received: 04/29/2015 [...] 16 18 Genotyping (04/28/2015 9:06 AM CDT) [facility] Method Time Signature HPV High Risk Not [...] and its pe rformance characteristics determined by [facility]. It has not been cleared or approved by [facility]. The laboratory is regulated under [...] - 05/01/2015 1:22 PM CDT Performed at [facility], [address] [place] [address] Judy Sorensen MD LAB_1 Performing Organization Address City/[facility] Code Phon e Number HP CONVERSION Pap Test Order (04/28/2015 9:06 AM CDT) [facility] Method Time Signature Pap Smear Collected HP CONVERSION Monolayer tracking test Specimen Anatomical Collection Method Collection Time Receive d Time (Source) Location / / Volume Laterality 04/28/2015 9:06 AM 5 9:10 CDT AM CDT Narrative HP CONVERSION - 04/28/2015 9:06 AM CDT Performed at [place] [id number] [place] [address] Judy Sorensen MD LAB_1 Performing Organization Address City/[facility] Phon e Number HP CONVERSION (ABNORMAL) WET PREP (04/28/2015 9:05 AM CDT) [facility] Method Time Signature WETPR [place] (A) [...] - 04/28/2015 9:24 AM CDT Performed at [facility], [address] [place] [address] Judy Sorensen MD LAB_1 Performing Organization Address City/[facility] Phon e Number HP CONVERSION documented in this encounter Visit Diagnoses Diagnosis Vaginal discharge - Primary Leukorrhea, not specified as infective Urethral caruncle Postmenopausal vaginal bleeding Postmenopausal bleeding documented in this encounter Care Teams Fire Sprinkler Service Technician Relationship Specialty Start Date End Date Judy Sorensen MD PCP - General 12/18/10 05/02/[address] [place] [address] documented as of this encounter
--- OUTSIDE RECORDS SUMMARY | 2022-05-09 08:09 | XMS_ITS | Encounter Summary ---
:1940 Author Organization [employer] Address [address] [place] [address] Care Team Providers Name Role Phone Judy Sorensen MD Primary Care Provider Encounter Details Date Type Department Care Team Description 08/18/2015 Imaging [facility] Encounter for screening [address] Federal [place] [address] Social History Tobacco Use Types Packs/Day Years Used Date Smoking Tobacco: Never Assessed Sex Assigned at Date Recorded Not on file documented as of this encounter Plan of Treatment Not on filedocumented as of this encounter Procedures Procedure Name Priority Date/Time Associated Diagnosis Comme nts MM MAMMOGRAM Routine 08/18/2015 11:54 AM Encounter for Results for this SCREENING BILAT W SPECIAL EDUCATION DIRECTOR screening mammogram pro cedure are in CAD for breast cancer the result s section. documented in this encounter Results MM Mammogram Screening Bilat W CAD (08/18/2015 11:54 AM SPECIAL EDUCATION DIRECTOR) Anatomical Region Laterality Modality Breast Bilateral Mammography Specimen (Source) Anatomical Location Collection Method / Collectio n Time Received Time / Laterality Volume Impressions 08/18/2015 2:11 PM SPECIAL EDUCATION DIRECTOR : BI-RADS 1 Negative (overall) Follow Up Mammogram in 1 year - Gómez saunders The results and recommendations of this examination will be communicated to the patient by the Shilafeliciano [facility] and we will attempt to schedule any recommended imaging follow up with the patient. Narrative 08/18/2015 2:11 PM SPECIAL EDUCATION DIRECTOR Compared to: 04/01/2014 MM Mammogram Screening Bilateral [...] cancer documented in this encounter Care Teams Cut Press Operator Relationship Specialty Start Date End Date Judy Sorensen MD PCP - General 12/18/10 05/02/18 [address] [place] [address] documented as of this encounter
--- OUTSIDE RECORDS SUMMARY | 2022-05-09 08:09 | XMS_ITS | Encounter Summary ---
:1940 Author Organization [employer] Address [address] [place] [address] Care Team Providers Name Role Phone Judy Sorensen MD Primary Care Provider Reason for Visit Reason Comments Refill Encounter Details Date Type Department Care Team Description 03/22/2016 Refill [facility] Judy Christensen MD Refill [address] [place] [address] [place], [place] [address] (Wo rk) Social History Tobacco Use Types [...] - NEXT SCHEDULED VISIT: None Powered by [employer], Reference: [id number], 03/22/2016 9:12:01 AM CDT, Pool: LEDBETTER FP REFILL ([id number]) ER HOOKER Jeniffer Pope, RN - 03/23/2016 4:41 PM [...] filedocumented in this encounter Care Teams Plant Control Operator Relationship Specialty Start Date End Date Judy Sorensen MD PCP - General 12/18/10 05/02/18 [address] [place] [address] documented as of this encounter
--- OUTSIDE RECORDS SUMMARY | 2022-05-09 08:09 | XMS_ITS | Encounter Summary ---
:1940 Author Organization [employer] Address [address] [place] [address] Care Team Providers Name Role Phone Judy Sorensen MD Primary Care Provider Encounter Details Date Type Department Care Team Description 06/13/[address] Scan Judy [place]nsen [place] [address] [place] [address] [place] [phone] (Wo rk) Social History Tobacco Use Types [...] health documented in this encounter Care Teams Media Center Director School Relationship Specialty Start Date End Date Judy Sorensen MD PCP - General 12/18/10 05/02/18 [address] [place] [address] documented as of this encounter
--- OUTSIDE RECORDS SUMMARY | 2022-05-09 08:09 | XMS_ITS | Encounter Summary ---
:1940 Author Organization [employer] Address [address] [place] [address] Care Team Providers Name Role Phone Judy Sorensen MD Primary Care Provider Reason for Visit Reason Comments Refill Encounter Details Date Type Department Care Team Description 02/14/2015 Refill [facility] Judy Christensne MD Refill [address] [place] [address] [place], [place] [address] (Wo rk) Social History Tobacco Use Types [...] - NEXT SCHEDULED VISIT: None Powered by [employer], Reference: [id number], 02/14/2015 9:08:58 AM CDT, Pool: KHLOE FP REFILL ([id number]) Whitley Kolb - 02/15/2015 3:14 PM CDT DUPLICATE REQUEST: Multiple request received for same medication. See other encounter dated 02/14/15. documented in this encounter Plan of Treatment Not on filedocumented as of this encounter Visit Diagnoses Not on filedocumented in this encounter Care Teams Global Recruiter Relationship Specialty Start Date End Date Judy Sorensen MD PCP - General 12/18/10 05/02/18 [address] [place] [address] documented as of this encounter
--- OUTSIDE RECORDS SUMMARY | 2022-05-09 08:09 | XMS_ITS | Encounter Summary ---
:1940 Author Organization [employer] Address [address] [place] [address] Care Team Providers Name Role Phone Judy Sorensen MD Primary Care Provider Reason for Visit Reason Comments Refill Encounter Details Date Type Department Care Team Description 02/15/2015 Refill [facility] Judy Christensen MD Refill [address] [place] [address] [place], [place] [address] (Wo rk) Social History Tobacco Use Types [...] - NEXT SCHEDULED VISIT: None Powered by [employer], Reference: [id number], 02/15/2015 3:06:27 PM CDT, Pool: KHLOE VICTOR REFILL ([id number]) Keena Asif RN - 02/16/2015 7:31 AM [...] on filedocumented in this encounter Care Teams Jigsawyer Relationship Specialty Start Date End Date Judy Sorensen MD PCP - General 12/18/10 05/02/18 [address] [place] [address] documented as of this encounter
--- OUTSIDE RECORDS SUMMARY | 2022-05-09 08:09 | XMS_ITS | Encounter Summary ---
:1940 Author Organization [employer] Address [address] [place] [address] Care Team Providers Name Role Phone Alethea Patterson MD Primary Care Provider [phone] Reason for Visit Reason Comments Refill Encounter Details Date Type Department Care Team Description 05/05/2016 Refill [facility] Judy Christensen MD Refill [address] [place] [address] [place], [place] [address] (Wo rk) Social History Tobacco Use Types [...] (Sent to [facility]) Powered by [employer], Reference: [id number], 05/05/2016 10:51:58 AM CDT, Pool: KHLOE FP REFILL ([id number]) Claire Simon - 05/09/2016 1:21 PM CDT [...] on filedocumented in this encounter Care Teams Qualifications Examiner Relationship Specialty Start Date End Date Alethea Patterson MD PCP - General Family Practice 01/02/191999 [place] [address] documented as of this encounter
--- OUTSIDE RECORDS SUMMARY | 2022-05-09 08:09 | XMS_ITS | Encounter Summary ---
:1940 Author Organization [employer] Address [address] [place] [address] Care Team Providers Name Role Phone Judy Sorensen MD Primary Care Provider Reason for Visit Reason Comments Appt. Scheduled Encounter Details Date Type Department Care Team Description 12/30/2014 Telephone [facility] Gwen Sorenesn MD Appt. Scheduled Medicine [address] [employer] [address] [place] [address] [place] [address] [phone] Social History Tobacco Use Types Packs/Day Years Used Date Smoking Tobacco: Never Assessed Sex Assigned at Date Recorded Not on file documented as of this encounter Plan of Treatment Not on filedocumented as of this encounter Visit Diagnoses Not on filedocumented in this encounter Care Teams Movie Shot Cameraman Relationship Specialty Start Date End Date Judy Sorensen MD PCP - General 12/18/10 05/02/18 [address] [employer] [place] [address] documented as of this encounter
--- OUTSIDE RECORDS SUMMARY | 2022-05-09 08:10 | XMS_ITS | Encounter Summary ---
:1940 Author Organization [facility] Address [address] [place] [address] Care Team Providers Name Role Phone Judy Sorensen MD Primary Care Provider Encounter Details Date Type Department Care Team Description 08/17/2012 Lab Visit [facility] Unspecified essential hypert ension; [address] [place] [address] Social History Tobacco Use Types Packs/Day Years Used Date Smoking Tobacco: Never Assessed Sex Assigned at Date Recorded Not on file documented as of this encounter Plan of Treatment Not on filedocumented as of this encounter Procedures Procedure Name Priority Date/Time Associated Diagnosis Comme nts GLUCOSE Routine 08/17/2012 11:09 Hyperlipidemia Results f or this AM SAP BASIS CONSULTANT procedure are i n the results section. LIPID PANEL AND Routine 08/17/2012 11:09 Hyperlipidemia Result s for this DIRECT LDL(IF AM SAP BASIS CONSULTANT procedure are in NEEDED) the results section. CREATININE / GFR Routine 08/17/2012 11:09 Unspecified essentia l Results for this AM SAP BASIS CONSULTANT hypertension (HRC) procedure are in the results section. ELECTROLYTE PANEL Routine 08/17/2012 11:09 Unspecified essenti al Results for this AM SAP BASIS CONSULTANT hypertension (HRC) procedure are in the results section. ALT (SGPT) Routine 08/17/2012 11:09 Hyperlipidemia Results f or this AM SAP BASIS CONSULTANT procedure are i n the results section. documented in this encounter Results GLUCOSE (08/17/2012 11:09 AM SAP BASIS CONSULTANT) P athologist Signature Lab Glucose 94 60 - 100 HP CONVERSION mg/dL Specimen Anatomical Collection Method Collection Time Receive d Time (Source) Location / / Volume Laterality 08/17/2012 11:09 08/17/2012 AM SAP BASIS CONSULTANT 11:09 AM SAP BASIS CONSULTANT Narrative HP CONVERSION - 08/17/2012 12:36 PM SAP BASIS CONSULTANT Performed at [facility], [address] [place] [address] Judy Sorensen MD LAB_1 Performing Organization Address [facility] Phon e Number HP CONVERSION ALT (SGPT) (08/17/2012 11:09 AM SAP BASIS CONSULTANT) [facility] Method Time Signature Alanine 18 4 - 55 HP CONVERSION Aminotransferase U/L Specimen Anatomical Collection Method Collection Time Receive d Time (Source) Location / / Volume Laterality 08/17/2012 11:09 08/17/2012 AM SAP BASIS CONSULTANT 11:09 AM SAP BASIS CONSULTANT Narrative HP CONVERSION - 08/17/2012 12:36 PM SAP BASIS CONSULTANT Performed at [facility], [address] [place] [address] Judy Sorensen MD LAB_1 Performing Organization Address [facility] Phon e Number HP CONVERSION Lipid Panel and Direct LDL(If Needed) (08/17/2012 11:09 AM SAP BASIS CONSULTANT) [facility] Method Time Signature Cholesterol 158 0 [...] / Volume Laterality 08/17/2012 11:09 08/17/2012 AM SAP BASIS CONSULTANT 11:09 AM SAP BASIS CONSULTANT Narrative HP CONVERSION - 08/17/2012 12:36 PM SAP BASIS CONSULTANT Performed at [facility], [address] [place] [address] Judy Sorensen MD LAB_1 Performing Organization Address City/[facility] Phon e Number HP CONVERSION (ABNORMAL) Electrolyte Panel (08/17/2012 11:09 AM SAP BASIS CONSULTANT) athologist Signature Sodium 142 137 - 147 HP CONVERSION mEq/L Potassium 4.7 3.5 - 5.2 HP CONVERSION mEq/L Chloride 105 98 - 110 HP CONVERSION mEq/L Bicarbonate 34 (H) 23 - 33 HP CONVERSION mmol/L Specimen Anatomical Collection Method Collection Time Receive d Time (Source) Location / / Volume Laterality 08/17/2012 11:09 08/17/2012 AM SAP BASIS CONSULTANT 11:09 AM SAP BASIS CONSULTANT Narrative HP CONVERSION - 08/17/2012 12:36 PM SAP BASIS CONSULTANT Performed at [facility], [address] [place], [place] [address] Judy Sorensen MD LAB_1 Performing Organization Address [facility] Phon e Number HP CONVERSION Creatinine / GFR (08/17/2012 11:09 AM SAP BASIS CONSULTANT) athologist Signature Creatinine 0.7 0.4 - 1.3 [...] / Volume Laterality 08/17/2012 11:09 08/17/2012 AM SAP BASIS CONSULTANT 11:09 AM SAP BASIS CONSULTANT Narrative HP CONVERSION - 08/17/2012 12:36 PM SAP BASIS CONSULTANT Performed at [facility], [address] [place] [address] Judy Sorensen MD LAB_1 Performing Organization Address [facility] Phon e Number HP CONVERSION documented in this encounter Visit Diagnoses Diagnosis Unspecified essential hypertension (HRC) Unspecified essential hypertension Hyperlipidemia (HRC) Other and unspecified hyperlipidemia documented in this encounter Care Teams Licensed Pesticide Applicator Relationship Specialty Start Date End Date Judy Sorensen MD PCP - General 12/18/10 05/02/[address] [place] [address] documented as of this encounter
--- OUTSIDE RECORDS SUMMARY | 2022-05-09 08:10 | XMS_ITS | Encounter Summary ---
:1940 Author Organization [facility] Address [address] [place] [address] Care Team Providers Name Role Phone Judy Sorensen MD Primary Care Provider Encounter Details Date Type Department Care Team Description 05/07/2011 Notes/Orders [facility] Judy Sorensen, Othe r and unspecified hyperlipidemia; Medicine MD Unspecified essential hypertension; [address] [place] [address] [place], [place] [phone] (Wo rk) Social History Tobacco Use Types [...] reflux documented in this encounter Care Teams Jacker Feeder Relationship Specialty Start Date End Date Judy Sorensen MD PCP - General 12/18/10 05/02/18 [address] [employer] [place], [place] [address] documented as of this encounter
--- OUTSIDE RECORDS SUMMARY | 2022-05-09 08:10 | XMS_ITS | Encounter Summary ---
:1940 Author Organization [employer] Address [address] [place] [address] Care Team Providers Name Role Phone Judy Sorensen MD Primary Care Provider Encounter Details Date Type Department Care Team Description 05/25/2011 Lab Visit [facility] Other and unspecified hyperl ipidemia; [address] Unspecified essential hypert ension; [place] [address] Esophageal reflux [phone] Social History Tobacco Use Types Packs/Day Years [...] - 05/25/2011 12:58 PM [place] [address] Judy Sorensen MD LAB_1 Performing Organization Address [...] - 05/25/2011 12:58 PM [place] [address] Judy Sorensen MD LAB_1 Performing Organization Address City/[facility]/ZIP Code Phon e Number HP CONVERSION Lipid Panel and Direct LDL(If Needed) (05/25/2011 12:38 PM CDT) [facility] gist Method Time Signature Cholesterol 156 [...] - 05/25/2011 5:14 PM [place] [address] Judy Sorensen MD LAB_1 Performing Organization Address [facility] Phon e Number HP CONVERSION Electrolyte Panel [...] - 05/25/2011 5:14 PM CDT Performed at [facility], [address] [place] [address] Judy Sorensen MD LAB_1 Performing Organization Address City/[facility] Phon e Number HP CONVERSION Creatinine / [...] - 05/25/2011 5:14 PM CDT Performed at [facility], [address] [place] [address] Judy Sorensen MD LAB_1 Performing Organization Address [facility] Phon e Number HP CONVERSION ALT (SGPT) (05/25/2011 12:38 PM CDT) [facility] gist Method Time Signature Alanine 13 4 - 55 HP CONVERSION Aminotransferase U/L Specimen Anatomical Collection Method Collection Time Receive d Time (Source) Location / / Volume Laterality 05/25/2011 12:38 05/25/2011 PM CDT 12:37 PM CDT Narrative HP CONVERSION - 05/25/2011 5:14 PM CDT Performed at [facility], [address] [place] [address] Judy Sorensen MD LAB_1 Performing Organization Address [facility] Phon e Number HP CONVERSION VENIPUNCTURE (FAWN) (05/25/2011 12:29 PM CDT) athologist Signature Venipuncture Done HP CONVERSION Specimen (Source) Anatomical Collection Method Collection Time Re ceived Time Location / / Volume Laterality 05/25/2011 12:29 PM CDT Narrative HP CONVERSION - 05/25/2011 12:29 PM CDT Performed at [facility], [address] [place] [address] Judy Sorensen MD LAB_1 Performing Organization Address [facility] Phon e Number HP CONVERSION documented in this encounter Visit Diagnoses Diagnosis Other and unspecified hyperlipidemia (HR C) Other and unspecified hyperlipidemia Unspecified essential hypertension (HRC) Unspecified essential hypertension Esophageal reflux documented in this encounter Care Teams Live Hanger Relationship Specialty Start Date End Date Judy Sorensen MD PCP - General 12/18/10 05/02/18 [address] [place], [place] [address] documented as of this encounter
--- OUTSIDE RECORDS SUMMARY | 2022-05-09 08:10 | XMS_ITS | Encounter Summary ---
:1940 Author Organization [employer] Address [address] [place] [address] Care Team Providers Name Role Phone Judy Sorensen MD Primary Care Provider Reason for Visit Reason Comments ERRONEOUS ENTRY Encounter Details Date Type Department Care Team Description 05/09/2011 Refill [facility] Judy Christensen MD ERRONEOUS ENTRY [address] [place] [address] [place], [place] [address] (Wo rk) Social History Tobacco Use Types Packs/Day Years Used Date Smoking Tobacco: Never Assessed Sex Assigned at Date Recorded Not on file documented as of this encounter Nursing Notes Aysha Espinoza - 05/09/2011 8:59 AM CDT Per [facility], Medication was filled for 30 days/ Please [...] filedocumented in this encounter Care Teams Junior Network Administrator Relationship Specialty Start Date End Date Judy Sorensen MD PCP - General 12/18/10 05/02/18 [address] [place] [address] documented as of this encounter
--- OUTSIDE RECORDS SUMMARY | 2022-05-09 08:10 | XMS_ITS | Encounter Summary ---
:1940 Author Organization [employer] Address [address] [place] [address] Care Team Providers Name Role Phone Judy Sorensen MD Primary Care Provider Reason for Visit Reason Comments HSN Follow Up Encounter Details Date Type Department Care Team Description 09/19/2012 Telephone [facility] [place] [address] [place] [address] [place], [place] [address] (Wo rk) Social History Tobacco Use Types [...] on filedocumented in this encounter Care Teams Communications Equipment Installer Relationship Specialty Start Date End Date Judy Sorensen MD PCP - General 12/18/10 05/02/18 [address] [employer] [place], [place] [address] documented as of this encounter
--- OUTSIDE RECORDS SUMMARY | 2022-05-09 08:10 | XMS_ITS | Encounter Summary ---
:1940 Author Organization [employer] Address [address] [place] [address] Care Team Providers Name Role Phone Judy Sorensen MD Primary Care Provider Encounter Details Date Type Department Care Team Description 09/07/2010 PN Conversion Only [facility] [address] [place] [address] Social History Tobacco Use Types Packs/Day Years Used Date Smoking Tobacco: Never Assessed Sex Assigned at Date Recorded Not on file documented as of this encounter Plan of Treatment Not on filedocumented as of this encounter Procedures Procedure Name Priority Date/Time Associated Diagnosis Comme nts MM MAMMOGRAM Routine 09/07/2010 12:41 PM Results for this SCREENING BILAT W ASSISTANT TEACHER PRIMARY procedure are in CAD the results section. documented in this encounter Results MM Mammogram Screening Bilat W CAD (09/07/2010 12:41 PM ASSISTANT TEACHER PRIMARY) Anatomical Region Laterality Modality Breast Bilateral Mammography Specimen (Source) Anatomical Location Collection Method / Collectio n Time Received Time / Laterality Volume Narrative 09/09/2010 8:48 AM ASSISTANT TEACHER PRIMARY Comparison is made to films from 06/12/2009 [...] on filedocumented in this encounter Care Teams Sheet Layer Relationship Specialty Start Date End Date Judy Sorensen MD PCP - General 12/18/10 05/02/18 [address] [place] [address] documented as of this encounter
--- OUTSIDE RECORDS SUMMARY | 2022-05-09 08:10 | XMS_ITS | Encounter Summary ---
:1940 Author Organization [employer] Address [address] [place] [address] Care Team Providers Name Role Phone Judy Sorensen MD Primary Care Provider Encounter Details Date Type Department Care Team Description 09/26/2011 Notes/Orders Judy Ellis, Other scr eening Mammography mammogram [address] [place] [address] [place], [place] [phone] (Wo rk) Social History Tobacco Use Types Packs/Day Years Used Date Smoking Tobacco: Never Assessed Sex Assigned at Date Recorded Not on file documented as of this encounter Plan of Treatment Not on filedocumented as of this encounter Procedures Procedure Name Priority Date/Time Associated Diagnosis Comme nts MM MAMMOGRAM Routine 10/05/2011 9:07 AM Other screening Result s for this SCREENING BILAT W RESEARCH CHEF mammogram procedure are in CAD the results section. documented in this encounter Results MM Mammogram Screening Bilat W CAD (10/05/2011 9:07 AM RESEARCH CHEF) Anatomical Region Laterality Modality Breast Bilateral Mammography Specimen (Source) Anatomical Location Collection Method / Collectio n Time Received Time / Laterality Volume Impressions 10/06/2011 10:48 AM RESEARCH CHEF IMPRESSION: BILATERAL BREASTS Negative, no evidence of malignancy. Nor mal interval follow-up is recommended in 12 months. OVERALL ASSESSMENT - CATEGORY 1 - NEGATI VE END OF IMPRESSION BJ Narrative 10/06/2011 10:48 AM RESEARCH CHEF Comparison is made to films from 010 [...] OF IMPRESSION BJ Judy Sorensen MD RAD [facility] documented in this encounter Visit Diagnoses Diagnosis Other screening mammogram documented in this encounter Care Teams Auxiliary Engineer Relationship Specialty Start Date End Date Judy Sorensen MD PCP - General 12/18/10 05/02/18 [address] [place] [address] documented as of this encounter
--- OUTSIDE RECORDS SUMMARY | 2022-05-09 08:10 | XMS_ITS | Encounter Summary ---
:1940 Author Organization [employer] Address [address] [place] [address] Care Team Providers Name Role Phone Judy Sorensen MD Primary Care Provider Reason for Visit Reason Comments MEDICATION CHECK Encounter Details Date Type Department Care Team Description 12/23/2014 Office Visit [facility] Judy Sorensen, Yohana osorio, class I (Primary Dx); Medicine MD Unspecified essential hypertension; [address] Tobacco use disorder; [address] Gastroesophageal reflux disease without esophagitis; [place], [place]; [phone] Screening for diabetes mellitus; [phone] Chronic ischemi c heart disease, unspecified (Work) [...] Body Mass Index 24.22 10/16/2013 1:04 PM MASH FILTER PRESS OPERATOR documented in this encounter Progress Notes [...] History Diagnosis Date ??? Coronary artery disease ([facility] [place] [place]) ??? Hypertension ([facility] [place] [place]) ??? Hyperlipidemia ([facility] [place] [place]) Patient Active Problem List Diagnosis Date Noted [...] cancer risks. Offered to have her contact [facility] pharmacist if ready to quit in the [...] ied documented in this encounter Care Teams Manager Financial Systems Relationship Specialty Start Date End Date Judy Sorensen MD PCP - General 12/18/10 05/02/18 [address] [place] [address] documented as of this encounter
--- OUTSIDE RECORDS SUMMARY | 2022-05-09 08:10 | XMS_ITS | Encounter Summary ---
:1940 Author Organization [employer] Address [address] [place] [address] Care Team Providers Name Role Phone Judy Sorensen MD Primary Care Provider Reason for Visit Reason Comments IMMUNIZATIONS Encounter Details Date Type Department Care Team Description 06/20/2014 Telephone [facility] Judy Christensen MD IMMUNIZATIONS [address] [facility] [address] [place] [address] [place], [place] [phone] (Wo rk) Social History Tobacco Use Types [...] on filedocumented in this encounter Care Teams Transformer Stock Clerk Relationship Specialty Start Date End Date Judy Sorensen MD PCP - General 12/18/10 05/02/18 [address] [place] [address] documented as of this encounter
--- OUTSIDE RECORDS SUMMARY | 2022-05-09 08:10 | XMS_ITS | Encounter Summary ---
:1940 Author Organization [employer] Address [address] [place] [address] Care Team Providers Name Role Phone Judy Sorensen MD Primary Care Provider Encounter Details Date Type Department Care Team Description 10/22/2012 Notes/Orders Judy Ellis, Other scr eening Mammography mammogram [address] [place] [address] [place], [place] [phone] (Wo rk) Social History Tobacco Use Types Packs/Day Years Used Date Smoking Tobacco: Never Assessed Sex Assigned at Date Recorded Not on file documented as of this encounter Plan of Treatment Not on filedocumented as of this encounter Procedures Procedure Name Priority Date/Time Associated Diagnosis Comme nts MM MAMMOGRAM Routine 10/31/2012 1:50 PM Other screening Result s for this SCREENING BILAT W DATA KEYER mammogram procedure are in CAD the results section. documented in this encounter Results MM Mammogram Screening Bilat W CAD (10/31/2012 1:50 PM DATA KEYER) Anatomical Region Laterality Modality Breast Bilateral Mammography Specimen (Source) Anatomical Location Collection Method / Collectio n Time Received Time / Laterality Volume Impressions 11/01/2012 7:45 AM DATA KEYER IMPRESSION: BILATERAL BREASTS Negative, no evidence of malignancy. Nor mal interval follow-up is recommended in 12 months. OVERALL ASSESSMENT - CATEGORY 1 - NEGATI VE END OF IMPRESSION Narrative 11/01/2012 7:45 AM DATA KEYER Comparison is made to films from 10/05/2011 [...] mammogram documented in this encounter Care Teams Crm Business Analyst Relationship Specialty Start Date End Date Judy Sorensen MD PCP - General 12/18/10 05/02/18 [address] [place] [address] documented as of this encounter
--- OUTSIDE RECORDS SUMMARY | 2022-05-09 08:10 | XMS_ITS | Encounter Summary ---
:1940 Author Organization [employer] Address [address] [place] [address] Care Team Providers Name Role Phone Judy Sorensen MD Primary Care Provider Encounter Details Date Type Department Care Team Description 05/27/2011 [facility] [address] [facility]. [place], [place] [phone] Social History Tobacco Use Types Packs/Day Years [...] on filedocumented in this encounter Care Teams Residential Aide Relationship Specialty Start Date End Date Judy Sorensen MD PCP - General 12/18/10 05/02/18 [address] [place] [address] documented as of this encounter
--- OUTSIDE RECORDS SUMMARY | 2022-05-09 08:10 | XMS_ITS | Encounter Summary ---
:1940 Author Organization [employer] Address [address], [place] [address] Care Team Providers Name Role Phone Judy Sorensen MD Primary Care Provider Reason for Visit Reason Comments Refill Encounter Details Date Type Department Care Team Description 11/18/2014 Refill [facility] Judy Christensen MD Refill [address] [place] [address] [place], [place] [address] (Wo rk) Social History Tobacco Use Types [...] 24 hours). (changed but equivalent) Powered by [employer], Reference: [id number], 11/18/2014 9:43:40 AM Markos HAIDER: KHLOE FP REFILL ([id number]) 2) ranitidine (ZANTAC) 300 mg tablet [Pharmacy [...] mouth nightly. (changed but equivalent) Powered by [employer], Reference: [id number], 11/18/2014 9:43:40 AM Markos HAIDER: KHLOE FP REFILL ([id number]) Michelle Cho - 11/19/2014 3:47 PM CST [...] a qualifying visit prior to further refills. [address] MANAGER documented in this encounter Plan of Treatment Not on filedocumented as of this encounter Visit Diagnoses Not on filedocumented in this encounter Care Teams Infrastructure Administrator Relationship Specialty Start Date End Date Judy Sorensen MD PCP - General 12/18/10 05/02/18 [address] [place] [address] documented as of this encounter
--- OUTSIDE RECORDS SUMMARY | 2022-05-09 08:10 | XMS_ITS | Encounter Summary ---
:1940 Author Organization [employer] Address [address] [place] [address] Care Team Providers Name Role Phone Judy Sorensen MD Primary Care Provider Reason for Visit Reason Comments BLOOD PRESSURE CHECK Encounter Details Date Type Department Care Team Description 10/31/2012 Office Visit [facility] Judy Sorensen, [facility] ecified essential Medicine hypertension (Primary [address] [place]) [place] [address] [place], [place] [phone] (Wo rk) Social History Tobacco Use Types Packs/Day Years Used Date Smoking Tobacco: Never Assessed Sex Assigned at Date Recorded Not on file documented as of this encounter Last Filed Vital Signs Vital Sign Reading Time Taken Comments Blood Pressure 138/88 10/31/2012 11:39 AM ATHLETIC SCOUT Pulse 64 10/31/2012 11:39 AM ATHLETIC SCOUT Temperature - - Respiratory Rate - - Oxygen Saturation - - Inhaled Oxygen Concentration - - Weight 57.2 kg (126 lb) 10/31/2012 11:39 AM ATHLETIC SCOUT Height - - Body Mass Index 25.02 09/19/2012 1:05 PM ATHLETIC SCOUT documented in this encounter Progress Notes Judy [...] hypertension documented in this encounter Care Teams Personal Clothing Laundry Aide Relationship Specialty Start Date End Date Judy Sorensen MD PCP - General 12/18/10 05/02/18 [address] [place] [address] documented as of this encounter
--- OUTSIDE RECORDS SUMMARY | 2022-05-09 08:10 | XMS_ITS | Encounter Summary ---
:1940 Author Organization [employer] Address [address] [place] [address] Care Team Providers Name Role Phone Judy Sorensen MD Primary Care Provider Reason for Visit Reason Comments Test Request Encounter Details Date Type Department Care Team Description 08/13/2012 Telephone [facility] Judy Christensen MD Test Request [address] [place] [address] [place], [place] [address] (Wo rk) Social History Tobacco Use Types Packs/Day Years Used Date Smoking Tobacco: Never Assessed Sex Assigned at Date Recorded Not on file documented as of this encounter Nursing Notes Malou Alarcon RN - 08/13/2012 4:39 PM CST Spoke with patient. She will come in fasting 12 hours on Monday. RER PRINTED CIRCUIT BOARDS Judy Larsen MD - 08/13/2012 4:35 PM CST orders entered. Fast 12 hours or overnight. RER PRINTED CIRCUIT BOARDS Sherif Buitrago - 08/13/2012 10:59 AM CST Lab/Radiology Requests Primary Care Provider: Judy Larsen MD What test is needed and when? needs to renew atenolol, simvastatin and ranitadine, thinks labs will be needed, wants to come in this Friday 08/17 to have labs done, please send order and call to confirm Why is test needed/requested? med refills *If symptom related, send to triage Media Reporter: Sol Oliva Best call back number: [phone] (home) , No relevant phone numbers on file. Is it OK to leave a confidential message on this voicemail? yes RER PRINTED CIRCUIT BOARDS documented in this encounter Plan of Treatment Not on filedocumented as of this encounter Visit Diagnoses Diagnosis Chronic ischemic heart disease, unspecif ied (HRC) Chronic ischemic heart disease, unspecif ied Unspecified essential hypertension (HRC) Unspecified essential hypertension Hyperlipidemia (HRC) Other and unspecified hyperlipidemia documented in this encounter Care Teams Computer Forensic Specialist Relationship Specialty Start Date End Date Judy Sorensen MD PCP - General 12/18/10 05/02/18 [address] [place] [address] documented as of this encounter
--- OUTSIDE RECORDS SUMMARY | 2022-05-09 08:10 | XMS_ITS | Encounter Summary ---
:1940 Author Organization [facility] Address [address] [place] [address] Care Team Providers Name Role Phone Judy Sorensen MD Primary Care Provider Encounter Details Date Type Department Care Team Description 10/31/2012 Lab Visit [facility] Unspecified essential [id number] [place] [address] [place] [address] Social History Tobacco Use Types Packs/Day Years Used Date Smoking Tobacco: Never Assessed Sex Assigned at Date Recorded Not on file documented as of this encounter Plan of Treatment Not on filedocumented as of this encounter Procedures Procedure Name Priority Date/Time Associated Diagnosis Comme nts ELECTROLYTE PANEL Routine 10/31/2012 12:30 PM Unspecified esse ntial Results for this COCKTAIL LOUNGE MANAGER hypertension (HRC) procedure are in the results section. documented in this encounter Results Electrolyte Panel (10/31/2012 12:30 PM COCKTAIL LOUNGE MANAGER) P athologist Signature Sodium 139 137 - 147 HP CONVERSION mEq/L Potassium 4.1 3.5 - 5.2 HP CONVERSION mEq/L Chloride 104 98 - 110 HP CONVERSION mEq/L Bicarbonate 29 23 - 33 HP CONVERSION mmol/L Specimen Anatomical Collection Method Collection Time Receive d Time (Source) Location / / Volume Laterality 10/31/2012 12:30 10/31/2012 PM COCKTAIL LOUNGE MANAGER 12:30 PM COCKTAIL LOUNGE MANAGER Narrative HP CONVERSION - 10/31/2012 4:34 PM COCKTAIL LOUNGE MANAGER Performed at [facility], [address] [place] [address] Judy Sorensen MD LAB_1 Performing Organization Address City/State/[facility] Code Phon e Number HP CONVERSION documented in this encounter Visit Diagnoses Diagnosis Unspecified essential hypertension (HRC) Unspecified essential hypertension documented in this encounter Care Teams Materials Buyer Relationship Specialty Start Date End Date Judy Sorensen MD PCP - General 12/18/10 05/02/18 [address] [place] [address] documented as of this encounter
--- OUTSIDE RECORDS SUMMARY | 2022-05-09 08:10 | XMS_ITS | Encounter Summary ---
:1940 Author Organization [email or web address] Address [address] [place] [address] Care Team Providers Name Role Phone Judy Sorensen MD Primary Care Provider Encounter Details Date Type Department Care Team Description 10/31/2012 Imaging [facility] [address] [place] [address] Social History Tobacco Use Types Packs/Day Years Used Date Smoking Tobacco: Never Assessed Sex Assigned at Date Recorded Not on file documented as of this encounter Plan of Treatment Not on filedocumented as of this encounter Visit Diagnoses Not on filedocumented in this encounter Care Teams Clother In Relationship Specialty Start Date End Date Judy Sorensen MD PCP - General 12/18/10 05/02/18 [address] [place], [place] [address] documented as of this encounter
--- OUTSIDE RECORDS SUMMARY | 2022-05-09 08:10 | XMS_ITS | Encounter Summary ---
:1940 Author Organization [employer] Address [address] [place] [address] Care Team Providers Name Role Phone Judy Sorensen MD Primary Care Provider Encounter Details Date Type Department Care Team Description 10/16/2013 Lab Visit [facility] Unspecified essential hypert ension; [address] Chronic ischemic heart disea se, unspecified; [place] [address] Screening for diabetes [facility] [phone] Social History Tobacco Use Types Packs/Day Years Used Date Smoking Tobacco: Never Assessed Sex Assigned at Date Recorded Not on file documented as of this encounter Plan of Treatment Not on filedocumented as of this encounter Procedures Procedure Name Priority Date/Time Associated Diagnosis Comme nts GLUCOSE Routine 10/16/2013 2:40 PM Screening for Results for this VIDEO ARCADE MANAGER diabetes mellitus procedure are in the results section. LIPID PANEL AND Routine 10/16/2013 2:40 PM Chronic ischemic Re sults for this DIRECT LDL(IF VIDEO ARCADE MANAGER heart disease, procedure ar e in NEEDED) unspecified the results section. CREATININE / GFR Routine 10/16/2013 2:40 PM Unspecified essent ial Results for this VIDEO ARCADE MANAGER hypertension (HRC) procedure are in the results section. ELECTROLYTE PANEL Routine 10/16/2013 2:40 PM Unspecified essen tial Results for this VIDEO ARCADE MANAGER hypertension (HRC) procedure are in the results section. ALT (SGPT) Routine 10/16/2013 2:40 PM Chronic ischemic Resul ts for this VIDEO ARCADE MANAGER heart disease, procedure are in unspecified the results section. documented in this encounter Results GLUCOSE (10/16/2013 2:40 PM VIDEO ARCADE MANAGER) athologist Signature Lab Glucose 99 60 - 100 HP CONVERSION mg/dL Specimen Anatomical Collection Method Collection Time Receive d Time (Source) Location / / Volume Laterality 10/16/2013 2:40 PM 4 2:40 VIDEO ARCADE MANAGER PM VIDEO ARCADE MANAGER Narrative HP CONVERSION - 10/16/2013 5:44 PM VIDEO ARCADE MANAGER Performed at [facility], [address] [place] [address] Judy Sorensen MD LAB_1 Performing Organization Address [facility] Phon e Number HP CONVERSION Lipid Panel and Direct LDL(If Needed) (10/16/2013 2:40 PM VIDEO ARCADE MANAGER) [facility] Method Time Signature Cholesterol 185 0 [...] Volume Laterality 10/16/2013 2:40 PM 4 2:40 VIDEO ARCADE MANAGER PM VIDEO ARCADE MANAGER Narrative HP CONVERSION - 10/16/2013 5:44 PM VIDEO ARCADE MANAGER Performed at [facility], [address] [place] [address] Judy Sorensen MD LAB_1 Performing Organization Address [facility] Phon e Number HP CONVERSION ALT (SGPT) (10/16/2013 2:40 PM VIDEO ARCADE MANAGER) [facility] Method Time Signature Alanine 22 4 - 55 HP CONVERSION Aminotransferase U/L Specimen Anatomical Collection Method Collection Time Receive d Time (Source) Location / / Volume Laterality 10/16/2013 2:40 PM 4 2:40 VIDEO ARCADE MANAGER PM VIDEO ARCADE MANAGER Narrative HP CONVERSION - 10/16/2013 5:44 PM VIDEO ARCADE MANAGER Performed at [facility], [address] [place] [address] Judy Sorensen MD LAB_1 Performing Organization Address [facility] Phon e Number HP CONVERSION (ABNORMAL) Electrolyte Panel (10/16/2013 2:40 PM VIDEO ARCADE MANAGER) athologist Signature Sodium 145 137 - 147 HP CONVERSION mEq/L Potassium 4.2 3.5 - 5.2 HP CONVERSION mEq/L Chloride 103 98 - 110 HP CONVERSION mEq/L Bicarbonate 37 (H) 23 - 33 HP CONVERSION mmol/L Specimen Anatomical Collection Method Collection Time Receive d Time (Source) Location / / Volume Laterality 10/16/2013 2:40 PM 4 2:40 VIDEO ARCADE MANAGER PM VIDEO ARCADE MANAGER Narrative HP CONVERSION - 10/16/2013 5:44 PM VIDEO ARCADE MANAGER Performed at [facility], [address] [place] [address] Judy Sorensen MD LAB_1 Performing Organization Address [facility] Phon e Number HP CONVERSION Creatinine / GFR (10/16/2013 2:40 PM VIDEO ARCADE MANAGER) athologist Signature Creatinine 0.9 0.4 - 1.3 [...] Volume Laterality 10/16/2013 2:40 PM 4 2:40 VIDEO ARCADE MANAGER PM VIDEO ARCADE MANAGER Narrative HP CONVERSION - 10/16/2013 5:44 PM VIDEO ARCADE MANAGER Performed at [facility], [address] [place] [address] Judy Sorensen MD LAB_1 Performing Organization Address [facility] Phon e Number HP CONVERSION documented in this encounter Visit Diagnoses Diagnosis Unspecified essential hypertension (HRC) Unspecified essential hypertension Chronic ischemic heart disease, unspecif ied (HRC) Chronic ischemic heart disease, unspecif ied Screening for diabetes mellitus documented in this encounter Care Teams Electrical Laboratory Technician Relationship Specialty Start Date End Date Judy Sornesen MD PCP - General 12/18/10 05/02/18 [address] [place] [address] documented as of this encounter
--- OUTSIDE RECORDS SUMMARY | 2022-05-09 08:10 | XMS_ITS | Encounter Summary ---
:1940 Author Organization [employer] Address [address] [place] [address] Care Team Providers Name Role Phone Judy Sorensen MD Primary Care Provider Reason for Visit Reason Comments LAB RESULTS Encounter Details Date Type Department Care Team Description 11/15/2012 Telephone [facility] Judy Christensen MD LAB RESULTS [address] [place] [address] [place], [place] [phone] (Wo rk) Social History Tobacco Use Types Packs/Day Years Used Date Smoking Tobacco: Never Assessed Sex Assigned at Date Recorded Not on file documented as of this encounter Nursing Notes Ngozi Allen - 11/16/2012 5:21 PM CST Letter printed. GER BACKGROUND Judy Larsen MD - 11/16/2012 1:51 PM CST New letter [facility], please print and send. GER BACKGROUND Yari Carranza, RN - 11/15/2012 1:35 PM CST Pt advised of normal lab results from 10/31/12. She would like a copy of this (no letter available in [facility]). GER BACKGROUND Nancy Thomas - 11/15/2012 12:27 PM CST Lab/Radiology Results Primary Care Provider: Judy Larsen MD What test result is needed? Pt unsure When and where was test done? 10/31/12 at [facility] Who ordered the test? Judy Larsen MD GER BACKGROUND documented in this encounter Miscellaneous Notes Letter - 11/15/2012 12:00 AM CST Images from the original note were not included. [place] [id number] [place] [address] Sol [address] [place] [address] November 16, 2012 Dear Sol, This letter is to inform you of your recent test results: Lab Results Component Value Date/Time Sodium 139 10/31/2012 12:30 Potassium 4.1 10/31/2012 12:30 Chloride 104 10/31/2012 12:30 Bicarbonate 29 10/31/2012 12:30 If you have any questions regarding this letter, please call. Sincerely, Judy Larsen MD GER BACKGROUND documented in this encounter Plan of Treatment Not on filedocumented as of this encounter Visit Diagnoses Not on filedocumented in this encounter Care Teams Physician Relations Representative Relationship Specialty Start Date End Date Judy Sorensen MD PCP - General 12/18/10 05/02/18 [address] [place] [address] documented as of this encounter
--- OUTSIDE RECORDS SUMMARY | 2022-05-09 08:10 | XMS_ITS | Encounter Summary ---
:1940 Author Organization [employer] Address [address] [address] Care Team Providers Name Role Phone Judy Sorensen MD Primary Care Provider Reason for Visit Reason Comments Refill Encounter Details Date Type Department Care Team Description 08/23/2012 Refill [facility] Judy Christensen MD Refill [address] [place] [address] [place], [place] [phone] (Wo rk) Social History Tobacco Use Types [...] on filedocumented in this encounter Care Teams Nut Roaster Relationship Specialty Start Date End Date Judy Sorensen MD PCP - General 12/18/10 05/02/18 [address] [place] [address] documented as of this encounter
--- OUTSIDE RECORDS SUMMARY | 2022-05-09 08:10 | XMS_ITS | Encounter Summary ---
:1940 Author Organization [employer] Address [address] [place] [address] Care Team Providers Name Role Phone Judy Sorensen MD Primary Care Provider Encounter Details Date Type Department Care Team Description 12/23/2014 Lab Visit [facility] Unspecified essential hypert ension; [address] [place] [address] [place]ains Chronic ischemic heart disea se, unspecified; [place] [address] [facility] [phone] Social History Tobacco Use Types Packs/Day Years [...] Results ALT (SGPT) (12/23/2014 9:53 AM CDT) [facility] Method Time Signature Alanine 19 4 - 55 HP CONVERSION Aminotransferase U/L Specimen Anatomical Collection Method Collection Time Receive d Time (Source) Location / / Volume Laterality 12/23/2014 9:53 AM 5 9:53 CDT AM CDT Narrative HP CONVERSION - 12/23/2014 10:56 AM CDT Performed at [facility], [address] [place] [address] Judy Sorensen MD LAB_1 Performing Organization Address City/[facility] Phon e Number HP CONVERSION (ABNORMAL) GLUCOSE (12/23/2014 9:53 AM CDT) athologist Signature Lab Glucose 109 (H) 60 - 100 HP CONVERSION mg/dL Specimen Anatomical Collection Method Collection Time Receive d Time (Source) Location / / Volume Laterality 12/23/2014 9:53 AM 5 9:53 CDT AM CDT Narrative HP CONVERSION - 12/23/2014 10:56 AM CDT Performed at [facility], [address] [place] [address] Judy Sorensen MD LAB_1 Performing Organization Address [facility] Phon e Number HP CONVERSION Lipid Panel and Direct LDL(If Needed) (12/23/2014 9:53 AM CDT) [facility] Method Time Signature Cholesterol 168 [...] - 12/23/2014 10:56 AM CDT Performed at [facility], [address] [place] [address] Judy Sorensen MD LAB_1 Performing Organization Address [facility] Phon e Number HP CONVERSION (ABNORMAL) [...] - 12/23/2014 10:56 AM CDT Performed at [facility], [address] [place] [address] Judy Sorensen MD LAB_1 Performing Organization Address City/[facility] Phon e Number HP CONVERSION Creatinine [...] - 12/23/2014 10:56 AM CDT Performed at [facility], [address] [place] [address] Judy Sorensen MD LAB_1 Performing Organization Address City/[facility] Phon e Number HP CONVERSION documented in this encounter Visit Diagnoses Diagnosis Unspecified essential hypertension (HRC) Unspecified essential hypertension Chronic ischemic heart disease, unspecif ied (HRC) Chronic ischemic heart disease, unspecif ied Screening for diabetes mellitus documented in this encounter Care Teams Substitute Bus Driver Relationship Specialty Start Date End Date Judy Sorensen MD PCP - General 12/18/10 05/02/[address] [place], [place] [id number] documented as of this encounter
--- OUTSIDE RECORDS SUMMARY | 2022-05-09 08:10 | XMS_ITS | Encounter Summary ---
:1940 Author Organization [email or web address] Address [address] [place] [address] Care Team Providers Name Role Phone Judy Sorensen MD Primary Care Provider Encounter Details Date Type Department Care Team Description 10/05/2011 [facility] [address] [place] [address] Social History Tobacco Use Types Packs/Day Years Used Date Smoking Tobacco: Never Assessed Sex Assigned at Date Recorded Not on file documented as of this encounter Plan of Treatment Not on filedocumented as of this encounter Visit Diagnoses Not on filedocumented in this encounter Care Teams Assistant Professor Of Forestry Relationship Specialty Start Date End Date Judy Sorensen MD PCP - General 12/18/10 05/02/18 [address] [place], [place] [address] documented as of this encounter
--- OUTSIDE RECORDS SUMMARY | 2022-05-09 08:10 | XMS_ITS | Encounter Summary ---
:1940 Author Organization [employer] Address [address], [place] [address] Care Team Providers Name Role Phone Judy Sorensen MD Primary Care Provider Reason for Visit Reason Comments Refill Encounter Details Date Type Department Care Team Description 11/18/2014 Refill [facility] Judy Christensen MD Refill [address] [place] [address] [place], [place] [address] (Wo rk) Social History Tobacco Use Types [...] 24 hours). (changed but equivalent) Powered by [employer], Reference: [id number], 11/18/2014 9:43:40 AM Markos HAIDER: KHLOE FP REFILL ([id number]) 2) chlorthalidone (HYGROTEN) 25 mg tablet [Pharmacy [...] - K: 4.2mEq/L on 10/16/2013 Powered by [employer], Reference: [id number], 11/18/2014 9:43:40 AM Markos HAIDER: KHLOE FP REFILL ([id number]) Michelle Rushing - 11/19/2014 3:47 PM CST [...] a qualifying visit prior to further refills. MAINFRAME SYSTEMS PROGRAMMER documented in this encounter Miscellaneous Notes Letter - Judy Larsen MD - 11/18/2014 12:00 AM CST Images from the original note were not included. [facility] [address] [place] [address] Sol Oliva [address] [place] [address] November 19, 2014 Dear Sol Oliva, We [...] provider before your next refill. Please call [facility] at [phone] to schedule an appointment within 30 days. Thank you for choosing [facility] for your health care needs. Your [facility] Primary Care Team MAINFRAME SYSTEMS PROGRAMMER documented in this encounter Plan of Treatment Not on filedocumented as of this encounter Visit Diagnoses Not on filedocumented in this encounter Care Teams Collar Runner Relationship Specialty Start Date End Date Judy Sorensen MD PCP - General 12/18/10 05/02/18 [address] [place] [address] documented as of this encounter
--- OUTSIDE RECORDS SUMMARY | 2022-05-09 08:10 | XMS_ITS | Encounter Summary ---
:1940 Author Organization [employer] Address [address], [place] [address] Care Team Providers Name Role Phone Judy Sorensen MD Primary Care Provider Reason for Visit Reason Comments Patient Calling Back Encounter Details Date Type Department Care Team Description 12/24/2014 Telephone [facility]wen Sorensen MD Patient Calling Back [facility] [address] [address] [phone] (Wo rk) Social History Tobacco Use Types [...] versus CXR. Please forward to Edwige in [facility] @ [phone] when Pt returns call. 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 Iordered it as a screen. She [...] anything. Per [facility], if scan is coded as outpatient diagnostic, if should be covered without any additional cost. Please clarify and call pt back at [phone] to advise. Malia Baeza - 12/24/2014 11:00 [...] on filedocumented in this encounter Care Teams Shank Boner Relationship Specialty Start Date End Date Judy Sorensen MD PCP - General 12/18/10 05/02/18 [address] [place] [address] documented as of this encounter
--- OUTSIDE RECORDS SUMMARY | 2022-05-09 08:10 | XMS_ITS | Encounter Summary ---
:1940 Author Organization [employer] Address [address] [place] [address] Care Team Providers Name Role Phone Judy Sorensen MD Primary Care Provider Reason for Visit Reason Comments Annual Exam Encounter Details Date Type Department Care Team Description 10/16/2013 Office Visit [facility] Judy Sorensen, Well woman exam (Primary Dx); Medicine MD Unspecified essential hypertension; [address] Chronic ischemic heart disease, unspecif ied; [place] [address] [place], [place] Screening for diabetes melli tus; [phone] Benign neoplasm of colon; [phone] (Wo rk) Impacted cerumen; Dizziness Social History Tobacco Use Types Packs/Day Years Used Date Smoking Tobacco: Never Assessed Sex Assigned at Date Recorded Not on file documented as of this encounter Last Filed Vital Signs Vital Sign Reading Time Taken Comments Blood Pressure 112/60 10/16/2013 1:04 PM unable to get manual DRAWER IN PLA[place]OM Pulse 58 10/16/2013 1:04 PM DRAWER [facility] [place] Temperature - - Respiratory Rate - - Oxygen Saturation - - Inhaled Oxygen - - Concentration Weight 56.8 kg (125 lb 2 10/16/2013 1:04 PM oz) DRAWER [facility] [place] Height 151.8 cm (4' 11.75) 10/16/2013 1:04 PM DRAWER IN [place] Body Mass Index 24.64 10/16/2013 1:04 PM DRAWER IN [place] documented in this encounter Progress Notes Judy Larsen MD - 10/16/2013 2:34 PM CST Chief Complaint Patient presents with ??? Annual Exam fasting Subjective: Sol Oliva is a 72 y.o. female here for routine exam. Current Complaints: No exertional chest symptoms. Some dry cough. Smoking, no interest in quitting. Needs colonoscopy but living in [place] would prefer to have it done locally [...] Social History ??? Marital Status: Spouse Name: Eh Number of Children: 3 ??? Years of [...] Adenomatous - Colonoscopy; Future Impacted cerumen - IA REMOVAL IMPACTED CERUMEN INSTRUMENTATION UNILAT Dizziness Other [...] be sent to her local hospital in [place]. Follow-up prn for cerumen removal following softener drops applied to ear canals for 3 days. Consider work-up if continues with dizzy spells with MRI, MRA. Restart every other day aspirin 81 mg. NOTE: Duplicate encounter notes, initial was pending revisions and was inadvertently saved. See thisnote for complete and updated details. ER IN PLA[facility] [place] Judy Larsen MD - 10/16/2013 2:32 PM [...] that were given to the patient today. ER IN [place] [place] documented in this encounter Plan of Treatment [...] giddiness documented in this encounter Care Teams Dry Cleaning Checker Relationship Specialty Start Date End Date Judy Sorensen MD PCP - General 12/18/10 05/02/18 [address] [place] [address] documented as of this encounter
--- OUTSIDE RECORDS SUMMARY | 2022-05-09 08:10 | XMS_ITS | Encounter Summary ---
:1940 Author Organization [employer] Address [address] [address] Care Team Providers Name Role Phone Judy Sorensen MD Primary Care Provider Encounter Details Date Type Department Care Team Description 05/25/2011 Notes/Orders [facility] Judy Sorensen, Othe r and unspecified hyperlipidemia; Medicine Unspecified essential hypertension [address] [place] [address] [place], [place] [phone] (Wo rk) Social History Tobacco Use Types Packs/Day Years Used Date Smoking Tobacco: Never Assessed Sex Assigned at Date Recorded Not on file documented as of this encounter Plan of Treatment Not on filedocumented as of this encounter Procedures Procedure Name Priority Date/Time Associated Diagnosis Comme nts US CECY LOWER Routine 05/27/2011 11:36 AM [facility] ts for this EXTREMITY PHYSIO CDT procedure a re in STUDY SINGLE LEVEL the [facility] ts section. documented in this encounter Results [...] dig it/brachial pressure index. Judy Sorensen MD [facility] VASCULAR US documented in this encounter Visit Diagnoses Diagnosis Other and unspecified hyperlipidemia (HR C) Other and unspecified hyperlipidemia Unspecified essential hypertension (HRC) Unspecified essential hypertension documented in this encounter Care Teams Welding Supervisor Relationship Specialty Start Date End Date Judy Sorensen MD PCP - General 12/18/10 05/02/18 [address] [place] [address] documented as of this encounter
--- OUTSIDE RECORDS SUMMARY | 2022-05-09 08:10 | XMS_ITS | Encounter Summary ---
:1940 Author Organization [employer] Address [address], [place] [address] Care Team Providers Name Role Phone Judy Sorensen MD Primary Care Provider Reason for Visit Reason Comments Annual Exam Encounter Details Date Type Department Care Team Description 05/25/2011 Office Visit [facility] Judy Sorensen, Uns ecified chronic ischemic heart disease (Primary Dx); Medicine Well woman exam; [address] Esophageal reflux; [place] [address] [place], [place] Unspecified essential hypert ension [phone] (Wo rk) Social History Tobacco Use Types [...] Ht 5' (152.4 cm) Wt 135 lb (44795 g) BMI 26.37 kg/m2 General appearance: alert, [...] bipass, possible recurrent claudication vs deconditioning. Hx [place] Hyperlipidemia Tobacco abuse Hypertension At risk for [...] exam Routine general medical examination at a [facility] care facility Esophageal reflux Unspecified essential hypertension (HRC) Unspecified essential hypertension documented in this encounter Care Teams Instrument Repairer Helper Relationship Specialty Start Date End Date Judy Sorensen MD PCP - General 12/18/10 05/02/18 [address] [place] [address] documented as of this encounter
--- OUTSIDE RECORDS SUMMARY | 2022-05-09 08:10 | XMS_ITS | Encounter Summary ---
:1940 Author Organization [facility] Address [address] [place] [address] Care Team Providers Name Role Phone Judy Sorensen MD Primary Care Provider Encounter Details Date Type Department Care Team Description 04/01/2014 Imaging [facility] Other screening mammogram [address] [place] [address] Social History Tobacco Use Types [...] be communicated to the patient by the [facility] and we will attempt to schedule [...] are seen in either breast. Procedure Note oJse Quezada MD - 05/12/2016Formatti ng of this [...] be communicated to the patient by the [facility] and we will attempt to schedule any recommended imaging follow up with the patient. Judy Sorensen MD RAD [facility] documented in this encounter Visit Diagnoses Diagnosis Other screening mammogram documented in this encounter Care Teams Video Poker Floorman Relationship Specialty Start Date End Date Judy Sorensen MD PCP - General 12/18/10 05/02/18 [address] [place] [address] documented as of this encounter
--- OUTSIDE RECORDS SUMMARY | 2022-05-09 08:10 | XMS_ITS | Encounter Summary ---
:1940 Author Organization [employer] Address [address] [place] [address] Care Team Providers Name Role Phone Judy Sorensen MD Primary Care Provider Reason for Visit Reason Comments Refill Encounter Details Date Type Department Care Team Description 09/05/2013 Telephone [facility] Judy Christensen MD Refill [address] [place] [address] [place], [place] [address] (Wo rk) Social History Tobacco Use Types [...] supply. 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 [facility] [address] [place] [address] [place] [address] Dept: [phone] Sol Oliva [address] [place] [address] September 06, 2013 Dear Sol Oliva, We [...] provider before your next refill. Please call [facility] at [phone] to schedule an appointment within 30 days. Thank you for choosing [facility] for your health care needs. 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
--- OUTSIDE RECORDS SUMMARY | 2022-05-09 08:10 | XMS_ITS | Encounter Summary ---
:1940 Author Organization [email or web address] Address [address] [place] [address] Care Team Providers Name Role Phone Judy Sorensen MD Primary Care Provider Reason for Visit Reason Comments Refill Encounter Details Date Type Department Care Team Description 06/06/[address] [facility] Judy Christensen MD Refill [address] [place] [address] [place], [place] [address] (Wo rk) Social History Tobacco Use Types [...] on filedocumented in this encounter Care Teams Assembler Metal Building Relationship Specialty Start Date End Date Judy Sorensen MD PCP - General 12/18/10 05/02/18 [address] [place] [address] documented as of this encounter
--- OUTSIDE RECORDS SUMMARY | 2022-05-09 08:10 | XMS_ITS | Encounter Summary ---
:1940 Author Organization [employer] Address [address] [place] [address] Care Team Providers Name Role Phone Judy Sorensen MD Primary Care Provider Reason for Visit Reason Comments Refill Encounter Details Date Type Department Care Team Description 05/04/2011 Refill [facility] Judy Christensen MD Refill [address] [place] [address] [place], [place] [address] (Wo rk) Social History Tobacco Use Types [...] filedocumented in this encounter Care Teams Farm Mortgage Agent Relationship Specialty Start Date End Date Judy Sorensen MD PCP - General 12/18/10 05/02/18 [address] [place] [address] documented as of this encounter
--- OUTSIDE RECORDS SUMMARY | 2022-05-09 08:10 | XMS_ITS | Encounter Summary ---
:1940 Author Organization [employer] Address [address] [place] [address] Care Team Providers Name Role Phone Judy Sorensen MD Primary Care Provider Reason for Visit Reason Comments Provider Return Call Request Encounter Details Date Type Department Care Team Description 10/17/2013 Telephone [facility] Judy Sorensen, [facility] ider Return Call Medicine MD Request [address] [place] [address] [place], [place] [phone] (Wo rk) Social History Tobacco Use Types [...] list. Will fax to number listed below. [employer] MARKET CONSULTANT Chasity Martell - 10/17/2013 10:59 AM CST Please fax # [phone]-problem and medication list for the colonoscopy order that was sent to Dr Gerry Mccabe in Gastro at the [facility] in [place] prior to scheduling. documented in this encounter Plan of Treatment Not on filedocumented as of this encounter Visit Diagnoses Not on filedocumented in this encounter Care Teams Supervisor [employer] Relationship Specialty Start Date End Date Judy Sorensen MD PCP - General 12/18/10 05/02/18 [address] [place] [address] documented as of this encounter
--- OUTSIDE RECORDS SUMMARY | 2022-05-09 08:10 | XMS_ITS | Encounter Summary ---
:1940 Author Organization [employer] Address [address] [place] [address] Care Team Providers Name Role Phone Judy Sorensen MD Primary Care Provider Encounter Details Date Type Department Care Team Description 01/14/2011 PN Conversion Only [facility] Jordan Sorensen MD [facility] [address] [place] [address] [phone] (Wo rk) Social History Tobacco Use Types Packs/Day Years Used Date Smoking Tobacco: Never Assessed Sex Assigned at Date Recorded Not on file documented as of this encounter Plan of Treatment Not on filedocumented as of this encounter Visit Diagnoses Not on filedocumented in this encounter Care Teams Cryogenics Engineer Relationship Specialty Start Date End Date Judy Sorensen MD PCP - General 12/18/10 05/02/18 [facility] [place] [address] documented as of this encounter
--- OUTSIDE RECORDS SUMMARY | 2022-05-09 08:10 | XMS_ITS | Encounter Summary ---
:1940 Author Organization [employer] Address [address] [place] [address] Care Team Providers Name Role Phone Judy Sorensen MD Primary Care Provider Reason for Visit Reason Comments Annual Exam Encounter Details Date Type Department Care Team Description 09/19/2012 Office Visit Judy James, Well woman exam (Primary Dx); Medicine Chronic ischemic heart disease, unspecif ied; [address] Unspecified essential hypertension; [place] [address] [place], [place] Need for diphtheria-tetanus- pertussis (Tdap) vaccine; [phone] Need for pneumococcal vaccination; [phone] (Wo rk) Screening for malignant neoplasm of the cervix Social History Tobacco Use Types Packs/Day Years Used Date Smoking Tobacco: Never Assessed Sex Assigned at Date Recorded Not on file documented as of this encounter Last Filed Vital Signs Vital Sign Reading Time Taken Comments Blood Pressure 143/61 09/19/2012 1:11 PM ACCOUNTANT PROPERTY Pulse 61 09/19/2012 1:11 PM ACCOUNTANT PROPERTY Temperature - - Respiratory Rate - - Oxygen Saturation - - Inhaled Oxygen Concentration - - Weight 57.2 kg (126 lb) 09/19/2012 1:05 PM ACCOUNTANT PROPERTY Height 151.1 cm (4' 11.5) 09/19/2012 1:05 PM ACCOUNTANT PROPERTY Body Mass Index 25.02 09/19/2012 1:05 PM ACCOUNTANT PROPERTY documented in this encounter Progress Notes Judy [...] (NA, K, CL, Bicarb); Future Need for fgzrfpqqne-cjycsfe-voefroosv (tdap) vaccine - Tdap (BOOSTRIX) Need for [...] PM Result s for this LIQUID BASED ACCOUNTANT PROPERTY procedure are i n the results section. PAP SMEAR SCREENING Routine 09/19/2012 2:00 PM Screening for R esults for this ACCOUNTANT PROPERTY malignant neoplasm procedure are in of the cervix the results section. documented in this encounter Results Pap Smear (09/19/2012 2:00 PM ACCOUNTANT PROPERTY) Specimen (Source) Anatomical Collection Method Collection Time Re ceived Time Location / / Volume Laterality 09/19/2012 2:00 PM ACCOUNTANT PROPERTY Narrative HP CONVERSION - 09/24/2012 2:53 PM ACCOUNTANT PROPERTY Final GYNECOLOGICAL CYTOLOGY REPORT Pathology #: [id number] ?Date Obtained: 09/19/2012 ? Date Received: 09/20/2012 [...] Judy Sorensen MD LAB_1 Performing Organization Address City/State/[facility] Code Phon e Number HP CONVERSION Pap Smear Screening (09/19/2012 2:00 PM ACCOUNTANT PROPERTY) P athologist Signature PAP Routine Collected HP CONVERSION Specimen Anatomical Collection Method Collection Time Receive d Time (Source) Location / / Volume Laterality 09/19/2012 2:00 PM 3 6:14 ACCOUNTANT PROPERTY AM ACCOUNTANT PROPERTY Judy Sorensen MD LAB_1 Performing Organization Address City/[facility] Phon e Number HP CONVERSION documented in this encounter Visit Diagnoses Diagnosis Well woman exam - Primary Routine general medical examination at a health care facility Chronic ischemic heart disease, unspecif ied (HRC) Chronic ischemic heart disease, unspecif ied Unspecified essential hypertension (HRC) Unspecified essential hypertension Need for ywlmwfrkod-feywbgx-sskpwgyvr (T dap) vaccine Need for prophylactic vaccination with c ombined jijswsyeqy-hfgefow-qejerkhtv (DTP) vaccine Need for pneumococcal vaccination Need for prophylactic vaccination agains t streptococcus pneumoniae (pneumococcus) Screening for malignant neoplasm of the cervix documented in this encounter Care Teams Supervisor Melt House Relationship Specialty Start Date End Date Judy Sorensen MD PCP - General 12/18/10 05/02/18 [address] [place] [address] documented as of this encounter
--- OUTSIDE RECORDS SUMMARY | 2022-05-09 08:11 | XMS_ITS | Encounter Summary ---
:1940 Author Organization [employer] Address [address] [place] [address] Care Team Providers Name Role Phone Judy Sorensen MD Primary Care Provider Encounter Details Date Type Department Care Team Description 04/04/2008 PN Conversion Only [facility] [address] [place] [address] Social History Tobacco Use Types Packs/Day Years [...] filedocumented in this encounter Care Teams Plant Electrician Relationship Specialty Start Date End Date Judy Sorensen MD PCP - General 12/18/10 05/02/18 [address] [place] [address] documented as of this encounter
--- OUTSIDE RECORDS SUMMARY | 2022-05-09 08:11 | XMS_ITS | Encounter Summary ---
:1940 Author Organization [employer] Address [address] [place] [address] Care Team Providers Name Role Phone Unassigned, Provider Primary Care Provider Unavailable Encounter Details Date Type Department Care Team Description 02/28/2008 Hospital [facility]counter [facility] 6500 Julius Mcneil MD [address] [employer] [place], [place] [id number] [facility] Julius Andersen MD [address] [employer] [place], [place] [id number] [facility]0 [facility] [place] [address] Social History Tobacco Use Types [...] documented as of this encounter Procedure Notes Julisu Andersen MD - 02/28/2008 12:01 AM CDT Procedures signed by Julius Andersen MD at 02/28/08 1113 Author: Julius Andersen MD Service: (none) Author Type: Physician Filed: 01/08/11 0432 Note Time: 02/28/08 1015 Status: Signed Travel Ticketing Reviewer: Julius Andersen MD (Physician) Patient Name: Shu [...] and oxygen saturations were monitored continuously. The [id number] colonoscope was introduced through the anus and [...] in 5 years for surveillance. CPT4 Code(s): 55536, Colonoscopy, flexible, proximal to splenic flexure; with biopsy, single or multiple ICD9 Code(s): 211.3, Benign neoplasm of colon 562.10, Diverticulosis of colon (without mention of hemorrhage) 455.0, Internal hemorrhoids without mention of complication V76.51, Special screening for malignant neoplasms, colon The codes documented in this report are preliminary and upon finish mender review may be revised to meet current [...] Results Pathology Report (02/28/2008 11:31 AM CDT) [facility] Method Time Signature Surgical SEE TEXT No normal HP CONVERSION Pathology range Comment: Patient: SHU OLIVA ?S URGICAL PATHOLOGY REPORT Pathology # ??[id number] ?Date Obtained: ? Date Received: DIAGNOSIS: ?Large intestine, sigmoid colon, po lypectomy: ?- Hyperplastic polyp. ?Blayne Bishop M.D. ?(electronic signature) DAG/DAG/amf Date of Report: 02/29/08 Pathology # ??[id number] ?Date Obtained: ? Date Received: ORGAN/TISSUE SITE: [...] Julius Andersen MD LAB_1 Performing Organization Address City/[facility]/ZIP Code Phon e Number HP CONVERSION Endoscopy Obtained Anatomical Path (02/28/2008 11:12 AM CDT) P athologist Signature Endo Tis Done No normal HP CONVERSION range Specimen (Source) Anatomical Collection Method Collection Time Re ceived Time Location / / Volume Laterality 02/28/2008 11:12 AM CDT Julius Andersen MD LAB_1 Performing Organization Address [facility] Phon e Number HP CONVERSION documented in this encounter Visit Diagnoses Not on filedocumented in this encounter Care Teams Hvac Residential Service Technician Relationship Specialty Start Date End Date Unassigned, Provider PCP - General 08/25/00 12/17/[address] [place] [address] documented as of this encounter
--- OUTSIDE RECORDS SUMMARY | 2022-05-09 08:11 | XMS_ITS | Encounter Summary ---
:1940 Author Organization [employer] Address [address] [place] [address] Care Team Providers Name Role Phone Judy Sorensen MD Primary Care Provider Encounter Details Date Type Department Care Team Description 03/05/2010 PN Conversion Only GNOSTICIST CONVERSION Judy Sorensen MD [address] [place] [address] (Wo rk) Social History Tobacco [...] Direct LDL(If Needed) (03/05/2010 8:02 AM CDT) [facility] Method Time Signature Cholesterol 182 0 - [...] MD LAB_1 Performing Organization Address [facility] Phon e Number HP CONVERSION Creatinine [...] MD LAB_1 Performing Organization Address [facility] Phon e Number HP CONVERSION ALT (SGPT) (03/05/2010 8:02 AM CDT) [facility] gist Method Time Signature Alanine 17 4 - 55 HP CONVERSION Aminotransferase U/L Specimen (Source) Anatomical Collection Method Collection Time Re ceived Time Location / / Volume Laterality 03/05/2010 8:02 AM CDT Judy Sorensen MD LAB_1 Performing Organization Address [facility] Phon e Number HP CONVERSION (ABNORMAL) [...] Greater than 150 ng/m L Performed at [facility] [address] [place] [address] 8410 8 Specimen (Source) Anatomical Collection Method Collection Time Re ceived Time Location / / Volume Laterality 03/05/2010 8:02 AM CDT Judy Sorensen MD LAB_1 Performing Organization Address City/State/ZIP Code Phon e Number HP CONVERSION documented in this encounter Visit Diagnoses Not on filedocumented in this encounter Care Teams Manager Staffing Relationship Specialty Start Date End Date Judy Sorensen MD PCP - General 12/18/10 05/02/18 [address] [place] [address] documented as of this encounter
--- OUTSIDE RECORDS SUMMARY | 2022-05-09 08:11 | XMS_ITS | Encounter Summary ---
:1940 Author Organization [employer] Address [address] [place] [address] Care Team Providers Name Role Phone Judy Sorensen MD Primary Care Provider Encounter Details Date Type Department Care Team Description 03/29/2010 Procedure Visit [facility] [place] [address] [place] [address] Social History Tobacco Use Types [...] 2343 Note Time: 03/29/10 0001 Status: Signed Process Design Chemical Engineer: Oniel Tamez MD (Physician) NAME: SHU OLIVA MR#: [id number] ACCT: [id number] VISIT: [id number] DICTATING CLINICIAN: ONIEL TAMEZ MD CONFIRM #: [id number] LOC: 471 CLINIC DEXA REPORT DATE OF [...] risk. RECOMMENDATIONS: 1. It is imperative for custodial bone health to take adequate calcium and vitamin D. Recommend adding appropriate calcium and vitamin D supplements. 2. Stop smoking. 3. Osteoporosis guidelines may be found on Facets. 4. Suggest repeating a scan in 4-5 years. ESS:[id number] C: 03/31/10 08:06 CONFIRM #: [id number] documented in this encounter Plan of Treatment Not on filedocumented as of this encounter Visit Diagnoses Not on filedocumented in this encounter Care Teams Finish Saw Operator Relationship Specialty Start Date End Date Judy Sorensen MD PCP - General 12/18/10 05/02/18 [address] [place] [address] documented as of this encounter
--- OUTSIDE RECORDS SUMMARY | 2022-05-09 08:11 | XMS_ITS | Encounter Summary ---
:1940 Author Organization [employer] Address [address] [place] [address] Care Team Providers Name Role Phone Judy Sorensen MD Primary Care Provider Encounter Details Date Type Department Care Team Description 03/10/2010 PN Conversion Only CONFUCIANIST CONVERSION Judy Sorensen MD [address] [place] [address] (Wo rk) Social History Tobacco [...] Comment: Final GYNECOLOGICAL CYTOLOGY REPORT Pathology #: [id number] ?Date Obta ined: 03/10/2010 ? Date Received: [...] on filedocumented in this encounter Care Teams Health Unit Clerk Relationship Specialty Start Date End Date Judy Sorensen MD PCP - General 12/18/10 05/02/18 [address] [place] [address] documented as of this encounter
--- OUTSIDE RECORDS SUMMARY | 2022-05-09 08:11 | XMS_ITS | Encounter Summary ---
:1940 Author Organization [employer] Address [address] [place] [address] Care Team Providers Name Role Phone Judy Sorensen MD Primary Care Provider Reason for Visit Reason Comments Other Encounter Details Date Type Department Care Team Description 02/29/2008 Telephone [facility], Message Other [address] [place], [place] [address] Social History Tobacco Use Types Packs/Day Years Used Date Smoking Tobacco: Never Assessed Sex Assigned at Date Recorded Not on file documented as of this encounter [facility], Message - 02/29/2008 2:08 PM CDT Phone Note filed by [employer] at 01/05/11 2300 Author: [employer] Service: (none) Author Type: (none) Filed: 01/05/110 Note Time: 02/29/081407 Status: Signed 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 Comment:-LV 02/20/08 Pharmacy Seq #:-[phone] Pharmacy Name:-[address] or City:[facility] Clinician Name:Jose GARCÍA Drug Name/Strength:-ATENOLOL 25MG TAB Sig: Dose/Route/Freq:-TAKE ONE TAB DAILY Quantity & Last Fill:-30 01/31/08 Created on 29Feb2008 2:08pm by OMAR SAUCEDA On 01Mar2008 7:52am YOGI PAGE wrote: Renewed medication per medication refill protocol. ENT CRIMES DETECTIVE documented in this encounter Plan of Treatment Not on filedocumented as of this encounter Visit Diagnoses Not on filedocumented in this encounter Care Teams Nitriles Lab Technician Relationship Specialty Start Date End Date Judy Sorensen MD PCP - General 12/18/10 05/02/18 [address] [place] [address] documented as of this encounter
--- OUTSIDE RECORDS SUMMARY | 2022-05-09 08:11 | XMS_ITS | Encounter Summary ---
:1940 Author Organization [employer] Address [address] [place] [address] Care Team Providers Name Role Phone Judy Sorensen MD Primary Care Provider Reason for Visit Reason Comments Other Encounter Details Date Type Department Care Team Description 02/17/2009 Telephone [facility], Message Other [address] [place] [address] Social History Tobacco Use Types Packs/Day Years Used Date Smoking Tobacco: Never Assessed Sex Assigned at Date Recorded Not on file documented as of this encounter [facility], Message - 02/17/2009 8:40 AM CDT Phone Note filed by [employer] at 01/07/11339 Author: [employer] Service: (none) Author Type: (none) Filed: 01/07/11339 Note Time: 02/17/09839 Status: Signed Beer Still Runner Compounder: [employer] (Resource) Prescription Refill Please provide enough refills to last until patient's next visit. Comment:- Pharmacy Seq #:-[phone] Pharmacy Name:-[facility] or City:[facility] Clinician Name:-Suzie Drug Name/Strength:-Simvastatin 80mg tabs. Sig: Dose/Route/Freq:-Take 1 tab daily in the evening. Quantity & Last Fill:-90 11/19/08 Created on 17Feb2009 8:40am by SOO MO J On 17Feb2009 4:49pm BURT WARREN wrote: Renewed medication per medication refill protocol.Has 02/24 well exam. OR STRATEGY MANAGER documented in this encounter Plan of Treatment Not on filedocumented as of this encounter Visit Diagnoses Not on filedocumented in this encounter Care Teams Radio Operator Ground Relationship Specialty Start Date End Date Judy Sorensen MD PCP - General 12/18/10 05/02/18 [address] [place] [address] documented as of this encounter
--- OUTSIDE RECORDS SUMMARY | 2022-05-09 08:11 | XMS_ITS | Encounter Summary ---
:1940 Author Organization [employer] Address [address] [place] [address] Care Team Providers Name Role Phone Judy Sorensen MD Primary Care Provider Reason for Visit Reason Comments Other Encounter Details Date Type Department Care Team Description 05/13/2008 Telephone [facility], Message Other [address] [place] [address] Social History Tobacco Use Types Packs/Day Years Used Date Smoking Tobacco: Never Assessed Sex Assigned at Date Recorded Not on file documented as of this encounter [facility], Message - 05/13/2008 9:04 AM CDT Phone Note filed by [employer] at 01/06/11428 Author: [employer] Service: (none) Author Type: (none) Filed: 01/06/11428 Note Time: 05/13/08903 Status: Signed Assurance Sourcing Manager: [employer] Prescription Refill Please provide enough refills to last until patient's next visit. Comment:- Pharmacy Seq #:-[phone] Pharmacy Name:-[facility] or City:[facility] Clinician Name:-Suzie Drug Name/Strength:-Ranitidine 300mg tabs. Sig: Dose/Route/Freq:-Take 1 tab every night at bedtime. Quantity & Last Fill:-90 03/02/07 Created on 13May2008 9:04am by SOO MO J On 13May2008 12:44pm BURT WARREN wrote: Renewed medication per medication refill protocol. CIATE PROFESSOR documented in this encounter Plan of Treatment Not on filedocumented as of this encounter Visit Diagnoses Not on filedocumented in this encounter Care Teams Bilingual Legal Assistant Relationship Specialty Start Date End Date Judy Sorensen MD PCP - General 12/18/10 05/02/18 [address] [place] [address] documented as of this encounter
--- OUTSIDE RECORDS SUMMARY | 2022-05-09 08:11 | XMS_ITS | Encounter Summary ---
:1940 Author Organization [employer] Address [address] [place] [address] Care Team Providers Name Role Phone Judy Sorensen MD Primary Care Provider Encounter Details Date Type Department Care Team Description 03/06/2009 Office Visit [facility] Mukesh Kiran [address] [place] [address] Social History Tobacco Use Types Packs/Day Years Used Date Smoking Tobacco: Never Assessed Sex Assigned at Date Recorded Not on file documented as of this encounter Plan of Treatment Not on filedocumented as of this encounter Visit Diagnoses Not on filedocumented in this encounter Care Teams Tubing Machine Tender Relationship Specialty Start Date End Date Judy Sorensen MD PCP - General 12/18/10 05/02/18 [address] [place], [place] [address] documented as of this encounter
--- OUTSIDE RECORDS SUMMARY | 2022-05-09 08:11 | XMS_ITS | Encounter Summary ---
:1940 Author Organization [employer] [facility] Address [address] [place] [address] Care Team Providers Name Role Phone Judy Sorensen MD Primary Care Provider Reason for Visit Reason Comments Other Encounter Details Date Type Department Care Team Description 02/16/2010 Telephone [facility], Message Other [address] [place], [place] [address] Social History Tobacco Use Types Packs/Day Years Used Date Smoking Tobacco: Never Assessed Sex Assigned at Date Recorded Not on file documented as of this encounter [facility], Message - 02/16/2010 3:22 PM CDT Phone Note filed by [employer] at 01/08/11912 Author: [employer] Service: (none) Author Type: (none) Filed: 01/08/11912 Note Time: 02/16/101521 Status: Signed Interactive Media Designer: [employer] (Resource) PRESCRIPTION REFILL Please provide enough refills to last until patient's next visit. 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
--- OUTSIDE RECORDS SUMMARY | 2022-05-09 08:11 | XMS_ITS | Encounter Summary ---
:1940 Author Organization [employer] Address [address] [place] [address] Care Team Providers Name Role Phone Judy Sorensen MD Primary Care Provider Encounter Details Date Type Department Care Team Description 09/05/2008 Office Visit [facility] [place] [address] [place] [address] [place], [place] [address] (Wo rk) Social History Tobacco Use Types Packs/Day Years Used Date Smoking Tobacco: Never Assessed Sex Assigned at Date Recorded Not on file documented as of this encounter Last Filed Vital Signs Vital Sign Reading Time Taken Comments Blood Pressure 140/64 09/05/2008 1:49 PM MOLD CHANGER Pulse 72 09/05/2008 1:24 PM MOLD CHANGER Temperature 36.6 ??C (97.9 ??F) 09/05/2008 1:24 PM ORAL C: 3 6.6 C MOLD CHANGER Respiratory Rate 18 09/05/2008 1:24 PM MOLD CHANGER Oxygen Saturation 96% 09/05/2008 1:24 PM MOLD CHANGER Inhaled Oxygen Concentration - - Weight - - Height - - Body Mass Index - - documented in this encounter Progress Notes Sameer Amin MD - 09/05/2008 12:01 AM CST Progress Notes signed by Sameer Amin MD at 09/09/08 1000 Author: Sameer Amin MD Service: (none) Author Type: Physician Filed: 01/08/11 0917 Note Time: 09/05/08 0001 Status: Signed List Of First Job Ideas: Sameer Amin MD (Physician) NAME: SHU OLIVA MR#: [id number] ACCT: [id number] VISIT: [id number] DICTATING CLINICIAN: SAMEER AMIN MD CONFIRM #: [id number] LOC: 520 CLINIC PROGRESS NOTE DATE OF [...] if symptoms persist. SUBJECTIVE: OBJECTIVE: ASSESSMENT: PLAN: PRR:[id number] C: 09/08/08 04:57 CONFIRM #: [id number] CHANGER documented in this encounter Plan of Treatment Not on filedocumented as of this encounter Visit Diagnoses Not on filedocumented in this encounter Care Teams Transmission Mechanic Relationship Specialty Start Date End Date Judy Sorensen MD PCP - General 12/18/10 05/02/18 [address] [place] [address] documented as of this encounter
--- OUTSIDE RECORDS SUMMARY | 2022-05-09 08:11 | XMS_ITS | Encounter Summary ---
:1940 Author Organization [facility] Address [address] [place] [address] Care Team Providers Name Role Phone Judy Sorensen MD Primary Care Provider Encounter Details Date Type Department Care Team Description 09/03/2009 PN Conversion Only [facility] [address] [place] [address] Social History Tobacco Use Types Packs/Day Years Used Date Smoking Tobacco: Never Assessed Sex Assigned at Date Recorded Not on file documented as of this encounter Plan of Treatment Not on filedocumented as of this encounter Visit Diagnoses Not on filedocumented in this encounter Care Teams Shanker Out Relationship Specialty Start Date End Date Judy Sorensen MD PCP - General 12/18/10 05/02/18 [address] [place], [place] [address] documented as of this encounter
--- OUTSIDE RECORDS SUMMARY | 2022-05-09 08:11 | XMS_ITS | Encounter Summary ---
:1940 Author Organization [facility] Address [address], [place] [address] Care Team Providers Name Role Phone Judy Sorensen MD Primary Care Provider Encounter Details Date Type Department Care Team Description 03/11/2008 Notes/Orders [facility] icine Conversion, User [address] [place] [address] [place], [place] [phone] Social History Tobacco Use Types Packs/Day Years [...] on filedocumented in this encounter Care Teams Extension Work Instructor Relationship Specialty Start Date End Date Judy Sorensen MD PCP - General 12/18/10 05/02/18 [address] [place] [address] documented as of this encounter
--- OUTSIDE RECORDS SUMMARY | 2022-05-09 08:11 | XMS_ITS | Encounter Summary ---
:1940 Author Organization [employer] Address [address] [place] [address] Care Team Providers Name Role Phone Judy Sorensen MD Primary Care Provider Reason for Visit Reason Comments Other Encounter Details Date Type Department Care Team Description 02/22/2010 Telephone [facility], Message Other [address] [place], [place] [address] Social History Tobacco Use Types Packs/Day Years Used Date Smoking Tobacco: Never Assessed Sex Assigned at Date Recorded Not on file documented as of this encounter [facility], Message - 02/22/2010 8:47 AM CDT Phone Note filed by [email or web address] at 01/08/11937 Author: [email or web address] Service: (none) Author Type: (none) Filed: 01/08/11937 Note Time: 02/22/10 08 Status: Signed Internet Cafe Manager: [email or web address] (Resource) Lab/Radiology Requests Caller Name/Relationship:wendy apryl Primary Post Closing Specialist:layton What test is needed and when?blood draw. Please send orders to the [facility], appt scheduled 03/05. Patient has scheduled a Welcome to Medicare physical for 03/10/10. Why is test needed/requested?annual physical *If symptom related, send to triage Design Studio Consultant:wendy Best call back number:[phone] Is it OK to leave a confidential [...] Pt Wendy calling with px concern. Contact #[phone]. On 24Feb2010 3:06pm BRENNEN MILLER wrote: Patient wants to know why she cannot have welcome to medicare physical. She has not had one since being on medicare. Please contact her at [phone]. On 25Feb2010 10:00am EDI HERRERA wrote: Contacted patient and she has more questions.Gave her the number for the business office and PALS. WARE EDUCATOR documented in this encounter Plan of Treatment Not on filedocumented as of this encounter Visit Diagnoses Not on filedocumented in this encounter Care Teams Rental Manager Relationship Specialty Start Date End Date Judy Sorensne MD PCP - General 12/18/10 05/02/18 [address] [place] [address] documented as of this encounter
--- OUTSIDE RECORDS SUMMARY | 2022-05-09 08:11 | XMS_ITS | Encounter Summary ---
:1940 Author Organization [employer] Address [address] [place] [address] Care Team Providers Name Role Phone Judy Sorensen MD Primary Care Provider Encounter Details Date Type Department Care Team Description 09/07/2010 PN Conversion Only [facility] [address] [place] [address] Social History Tobacco Use Types Packs/Day Years Used Date Smoking Tobacco: Never Assessed Sex Assigned at Date Recorded Not on file documented as of this encounter Plan of Treatment Not on filedocumented as of this encounter Visit Diagnoses Not on filedocumented in this encounter Care Teams Tax Compliance Manager Relationship Specialty Start Date End Date Judy Sorensen MD PCP - General 12/18/10 05/02/18 [address] [place], [place] [address] documented as of this encounter
--- OUTSIDE RECORDS SUMMARY | 2022-05-09 08:11 | XMS_ITS | Encounter Summary ---
:1940 Author Organization [employer] Address [address] [address] Care Team Providers Name Role Phone Judy Sorensen MD Primary Care Provider Encounter Details Date Type Department Care Team Description 02/20/2009 Office Visit [facility] Gwen Sorensen MD [address] [address] [place] [address] [phone] Social History Tobacco Use Types Packs/Day Years [...] signed by Judy Larsen MD at 03/12/09 0570 Author: Judy Larsen MD Service: (none) Author Type: Physician Filed: 01/08/11 1349 Note Time: 02/20/09 0001 Status: Signed Assistant Kitchen Manager: Judy Larsne MD (Physician) Preventive Exam & Pelvic IMPRESSION: [...] on filedocumented in this encounter Care Teams Foam Rubber Mixer Relationship Specialty Start Date End Date Judy Sorensen MD PCP - General 12/18/10 05/02/18 [address] [place] [address] documented as of this encounter
--- OUTSIDE RECORDS SUMMARY | 2022-05-09 08:11 | XMS_ITS | Encounter Summary ---
:1940 Author Organization [employer] Address [address] [place] [address] Care Team Providers Name Role Phone Judy Sorensen MD Primary Care Provider Encounter Details Date Type Department Care Team Description 06/12/2009 PN Conversion Only [facility] [address] [place] [id number] Social History Tobacco Use Types Packs/Day Years [...] on filedocumented in this encounter Care Teams Filenet Architect Relationship Specialty Start Date End Date Judy Sorensen MD PCP - General 12/18/10 05/02/18 [address] [place] [address] documented as of this encounter
--- OUTSIDE RECORDS SUMMARY | 2022-05-09 08:11 | XMS_ITS | Encounter Summary ---
:1940 Author Organization [employer] Address [address] [place] [address] Care Team Providers Name Role Phone Judy Sorensen MD Primary Care Provider Encounter Details Date Type Department Care Team Description 06/05/2009 Nursing Visit [facility] Jose Rosas MD [facility] [address] [facility] [address] [place] [address] [place] [address] [phone] Social History Tobacco Use Types Packs/Day Years Used Date Smoking Tobacco: Never Assessed Sex Assigned at Date Recorded Not on file documented as of this encounter Plan of Treatment Not on filedocumented as of this encounter Visit Diagnoses Not on filedocumented in this encounter Care Teams Mechanical Design Engineer Relationship Specialty Start Date End Date Judy Sorensen MD PCP - General 12/18/10 05/02/18 [address] [place] [address] documented as of this encounter
--- OUTSIDE RECORDS SUMMARY | 2022-05-09 08:11 | XMS_ITS | Encounter Summary ---
:1940 Author Organization [employer] Address [address] [place] [address] Care Team Providers Name Role Phone Judy Sorensen MD Primary Care Provider Encounter Details Date Type Department Care Team Description 02/20/2009 PN Conversion Only [place] [address] [place] [address] [place], [place] [address] (Wo rk) Social History Tobacco Use Types [...] Judy Sorensen MD LAB_1 Performing Organization Address [facility] Code Phon e Number HP CONVERSION AST (02/20/2009 3:01 PM CDT) [facility] Method Time Signature Aspartate 19 0 - 45 HP CONVERSION Aminotransferase U/L Specimen (Source) Anatomical Collection Method Collection Time Re ceived Time Location / / Volume Laterality 02/20/2009 3:01 PM CDT Judy Sorensen MD LAB_1 Performing Organization Address [facility] Code Phon e Number HP CONVERSION Creatinine / GFR (02/20/2009 3:01 PM CDT) athologist Signature Creatinine 0.8 0.4 - 1.3 HP CONVERSION Serum mg/dL Est GFR >60 >60 HP CONVERSION Am Comment: -[place]oz[place] and Tdx-Vsoaghb-Qzsfbhl n reference range units: mL/min/1.73m2 Normal>60, moderate [...] Judy Sorensen MD LAB_1 Performing Organization Address City/[facility] Code Phon e Number HP CONVERSION (ABNORMAL) [...] Direct LDL(If Needed) (02/20/2009 3:01 PM CDT) [facility] gist Method Time Signature Length Of [...] Judy Sorensen MD LAB_1 Performing Organization Address City/State/[facility] Code Phon e Number HP CONVERSION documented in this encounter Visit Diagnoses Not on filedocumented in this encounter Care Teams Adjunct Art History Instructor Relationship Specialty Start Date End Date Judy Sorensen MD PCP - General 12/18/10 05/02/18 [address] [place] [address] documented as of this encounter
--- OUTSIDE RECORDS SUMMARY | 2022-05-09 08:11 | XMS_ITS | Encounter Summary ---
:1940 Author Organization [employer] Address [address] [place] [address] Care Team Providers Name Role Phone Judy Sorensen MD Primary Care Provider Encounter Details Date Type Department Care Team Description 03/05/2009 Nursing Visit [facility] Jose Rosas MD [facility] [address] [facility] [address] [place] [address] [place] [address] [phone] Social History Tobacco Use Types Packs/Day Years Used Date Smoking Tobacco: Never Assessed Sex Assigned at Date Recorded Not on file documented as of this encounter Plan of Treatment Not on filedocumented as of this encounter Visit Diagnoses Not on filedocumented in this encounter Care Teams Envelope Folding Machine Adjuster Relationship Specialty Start Date End Date Judy Sorensen MD PCP - General 12/18/10 05/02/18 [address] [place] [address] documented as of this encounter
--- OUTSIDE RECORDS SUMMARY | 2022-05-09 08:11 | XMS_ITS | Encounter Summary ---
:1940 Author Organization [email or web address] Address [address] [place] [address] Care Team Providers Name Role Phone Judy Sorensen MD Primary Care Provider Reason for Visit Reason Comments Other Encounter Details Date Type Department Care Team Description 12/31/2008 Telephone [facility], Message Other [address] [place] [address] Social History Tobacco Use Types Packs/Day Years Used Date Smoking Tobacco: Never Assessed Sex Assigned at Date Recorded Not on file documented as of this encounter [facility], Message - 12/31/2008 1:16 PM CDT Phone Note filed by [employer] at 01/07/11 0002 Author: [employer] Service: (none) Author Type: (none) Filed: 01/07/11 0002 Note Time: 12/31/08 1316 Status: Signed Double End Tenoner Operator: [employer] (Resource) Prescription Refill Please provide enough refills to last until patient's next visit. Comment:- Pharmacy Seq #:-[phone] Pharmacy Name:-[facility] [address] or City:[facility] Clinician Name:-Evon GARCÍA Drug Name/Strength:-RANITIDINE 300MG TAB Sig: Dose/Route/Freq:-TAKE ONE TAB DAIY AT BEDTIME Quantity & Last Fill:-30 12/02/08 Created on 31Dec2008 1:16pm by OMAR SAUCEDA On 01Jan2009 10:58am BURT WARREN wrote: Renewed medication per medication refill protocol. ARCH PHLEBOTOMIST documented in this encounter Plan of Treatment Not on filedocumented as of this encounter Visit Diagnoses Not on filedocumented in this encounter Care Teams Heavy Equipment Supervisor Relationship Specialty Start Date End Date Judy Sorensen MD PCP - General 12/18/10 05/02/18 [address] [place] [address] documented as of this encounter
--- OUTSIDE RECORDS SUMMARY | 2022-05-09 08:11 | XMS_ITS | Encounter Summary ---
:1940 Author Organization [employer] Address [address] [address] Care Team Providers Name Role Phone Judy Sorensen MD Primary Care Provider Encounter Details Date Type Department Care Team Description 03/10/2010 Office Visit [facility] Gwen Sorensen MD [address] [address] [place] [address] [phone] Social History Tobacco Use Types Packs/Day Years [...] signed by Judy Larsen MD at 03/14/10 2511 Author: Judy Larsen MD Service: (none) Author Type: Physician Filed: 01/08/11 2319 Note Time: 03/10/10 0001 Status: Signed Psych Sales Specialist: Judy Larsen MD (Physician) PAP & Pelvic [...] adenopathy. Pelvic: Normal external genitalia and urethra. [place], moist vaginal and cervical mucosa, without lesions. [...] on filedocumented in this encounter Care Teams Window And Siding Craftsman Relationship Specialty Start Date End Date Judy Sorensen MD PCP - General 12/18/10 05/02/18 [address] [place] [address] documented as of this encounter
--- OUTSIDE RECORDS SUMMARY | 2022-05-09 08:11 | XMS_ITS | Encounter Summary ---
:1940 Author Organization [employer] Address [address] [place] [address] Care Team Providers Name Role Phone Judy Sorensen MD Primary Care Provider Reason for Visit Reason Comments Other Encounter Details Date Type Department Care Team Description 07/16/2009 Telephone [facility] [address], [facility] Gastroenterology [address] [facility] [place] [address] Social History Tobacco Use Types Packs/Day Years Used Date Smoking Tobacco: Never Assessed Sex Assigned at Date Recorded Not on file documented as of this encounter Progress Notes [facility], Message - 07/16/2009 9:26 AM CDT Phone Note filed by [employer] at 01/07/11 3102 Author: [employer] Service: (none) Author Type: (none) Filed: 01/07/11 4451 Note Time: 07/16/09925 Status: Signed Sleep Medicine Physician: [employer] (Resource) GI dept mailed letter reminding pt to schedule f/u colonoscopy due in Sep 2009. Created on 16Jul2009 9:26am by NI GRAF On 28Sep2009 11:44am COLLIN SINGLETON wrote: pt called about letter sent had colonoscopy 2007 and letter from recommended 5yr f/u. Revised waitlist for 2012 P CLERK documented in this encounter Plan of Treatment Not on filedocumented as of this encounter Visit Diagnoses Not on filedocumented in this encounter Care Teams Pari Mutuel Clerk Relationship Specialty Start Date End Date Judy Sorensen MD PCP - General 12/18/10 05/02/18 [address] [place] [address] documented as of this encounter
--- OUTSIDE RECORDS SUMMARY | 2022-05-09 08:11 | XMS_ITS | Encounter Summary ---
:1940 Author Organization [employer] Address [address] [place] [address] Care Team Providers Name Role Phone Judy Sorensen MD Primary Care Provider Encounter Details Date Type Department Care Team Description 07/11/2008 Nursing Visit [facility] Jose Rosas MD [facility] [address] [facility] [address] [place] [address] [place] [address] [phone] Social History Tobacco Use Types Packs/Day Years Used Date Smoking Tobacco: Never Assessed Sex Assigned at Date Recorded Not on file documented as of this encounter Plan of Treatment Not on filedocumented as of this encounter Visit Diagnoses Not on filedocumented in this encounter Care Teams Fbi Sharpshooter Relationship Specialty Start Date End Date Judy Sorensen MD PCP - General 12/18/10 05/02/18 [address] [place] [address] documented as of this encounter
--- OUTSIDE RECORDS SUMMARY | 2022-05-09 08:11 | XMS_ITS | Encounter Summary ---
:1940 Author Organization [employer] Address [address] [place] [address] Care Team Providers Name Role Phone Judy Sorensen MD Primary Care Provider Reason for Visit Reason Comments Other Encounter Details Date Type Department Care Team Description 11/18/2008 Telephone [facility], Message Other [address] [place] [address] Social History Tobacco Use Types Packs/Day Years Used Date Smoking Tobacco: Never Assessed Sex Assigned at Date Recorded Not on file documented as of this encounter [facility], Message - 11/18/2008 11:26 AM CST Phone Note filed by [employer] at 01/06/111842 Author: [employer] Service: (none) Author Type: (none) Filed: 01/06/111842 Note Time: 11/18/081125 Status: Signed Petrol Tanker Driver: [employer] Prescription Refill Please provide enough refills to last until patient's next visit. Comment:- Pharmacy Seq #:-[phone] Pharmacy Name:-[facility] or City:[facility] Clinician Name:-Suzie Drug Name/Strength:-Simvastatin 80mg tabs. Sig: Dose/Route/Freq:-Take 1 tab daily in the evening. Quantity & Last Fill:-90 08/22/08 Created on 18Nov2008 11:26am by SOO MO J On 19Nov2008 4:31pm BURT WARREN wrote: Renewed medication per medication refill protocol. PASTEURIZER documented in this encounter Plan of Treatment Not on filedocumented as of this encounter Visit Diagnoses Not on filedocumented in this encounter Care Teams Shipping Inspector Relationship Specialty Start Date End Date Judy Sorensen MD PCP - General 12/18/10 05/02/18 [address] [place] [address] documented as of this encounter
--- OUTSIDE RECORDS SUMMARY | 2022-05-09 08:11 | XMS_ITS | Encounter Summary ---
:1940 Author Organization [employer] Address [address] [place] [address] Care Team Providers Name Role Phone Judy Sorensen MD Primary Care Provider Encounter Details Date Type Department Care Team Description 06/04/2009 PN Conversion Only [place] [address] [address] [place] [address] Social History Tobacco Use Types Packs/Day Years Used Date Smoking Tobacco: Never Assessed Sex Assigned at Date Recorded Not on file documented as of this encounter Plan of Treatment Not on filedocumented as of this encounter Visit Diagnoses Not on filedocumented in this encounter Care Teams Quenching Car Operator Relationship Specialty Start Date End Date Judy Sorensen MD PCP - General 12/18/10 05/02/18 [address] [place], [place] [address] documented as of this encounter
--- OUTSIDE RECORDS SUMMARY | 2022-05-09 08:11 | XMS_ITS | Encounter Summary ---
:1940 Author Organization [employer] Address [address] [place] [address] Care Team Providers Name Role Phone Judy Sorensen MD Primary Care Provider Encounter Details Date Type Department Care Team Description 02/28/2008 PN Conversion Only [facility] GASTROENTEROLOG Y Julius Andersen MD [address] [facility] [address] [place] [phone] (Wo rk) Social History Tobacco Use Types Packs/Day Years Used Date Smoking Tobacco: Never Assessed Sex Assigned at Date Recorded Not on file documented as of this encounter Plan of Treatment Not on filedocumented as of this encounter Visit Diagnoses Not on filedocumented in this encounter Care Teams Skin Piler Relationship Specialty Start Date End Date Judy Sorensen MD PCP - General 12/18/10 05/02/18 [address] [place], [place] [address] documented as of this encounter
--- OUTSIDE RECORDS SUMMARY | 2022-05-09 08:12 | XMS_ITS | Encounter Summary ---
:1940 Author Organization [employer] Address [address] [place] [address] Care Team Providers Name Role Phone Judy Sorensen MD Primary Care Provider Encounter Details Date Type Department Care Team Description 10/12/2006 [facility] Carlee Feldman [facility] [address] [place] [address] [place] [address] [phone] Social History Tobacco Use Types Packs/Day Years Used Date Smoking Tobacco: Never Assessed Sex Assigned at Date Recorded Not on file documented as of this encounter Last Filed Vital Signs Vital Sign Reading Time Taken Comments Blood Pressure 130/66 10/12/2006 10:54 AM CHIEF LIBRARIAN BRANCH Pulse - - Temperature - - Respiratory [...] 1636 Note Time: 10/12/06 0001 Status: Signed Religious Education Director: Carlee Gracia MD (Physician) NAME: SHU OLIVA MR#: [id number] ACCT: [id number] VISIT: [id number] DICTATING CLINICIAN: CARLEE GRACIA MD JOB: [id number] LOC: 3588 CLINIC PROGRESS NOTE DATE OF [...] her last time or since her surgery. [id number] C: 10/13/06 06:41 DOCUMENT: [id number] F LIBRARIAN BRANCH documented in this encounter Plan of Treatment Not on filedocumented as of this encounter Visit Diagnoses Not on filedocumented in this encounter Care Teams Store Team Member Relationship Specialty Start Date End Date Judy Sorensen MD PCP - General 12/18/10 05/02/18 [address] [place] [address] documented as of this encounter
--- OUTSIDE RECORDS SUMMARY | 2022-05-09 08:12 | XMS_ITS | Encounter Summary ---
:1940 Author Organization [employer] Address [address] [place] [address] Care Team Providers Name Role Phone Judy Sorensen MD Primary Care Provider Reason for Visit Reason Comments Other Encounter Details Date Type Department Care Team Description 02/27/2008 Telephone [facility] [place] Other [address] [place] [address] Social History Tobacco Use Types [...] Filed: 01/05/112250 Note Time: 02/27/082031 Status: Signed Language Asst: Radha Hendricks RN (Registered Nurse) CLINICIAN FOLLOW-UP: [...] Created on 27Feb2008 8:32pm by RADHA HENDRICKS PMENT LEAD documented in this encounter Plan of Treatment Not on filedocumented as of this encounter Visit Diagnoses Not on filedocumented in this encounter Care Teams Promotion Manager Relationship Specialty Start Date End Date Judy Sorensen MD PCP - General 12/18/10 05/02/18 [address] [place] [address] documented as of this encounter
--- OUTSIDE RECORDS SUMMARY | 2022-05-09 08:12 | XMS_ITS | Encounter Summary ---
:1940 Author Organization [facility] Address [address] [place] [address] Care Team Providers Name Role Phone Judy Sorensen MD Primary Care Provider Encounter Details Date Type Department Care Team Description 02/20/2008 PN Conversion Only [place] [address] [place] [address] [place], [place] [address] (Wo rk) Social History Tobacco Use Types [...] Results ALT (SGPT) (02/20/2008 11:02 AM CDT) [facility] gist Method Time Signature Alanine 17 4 - 55 HP CONVERSION Aminotransferase U/L Specimen (Source) Anatomical Collection Method Collection Time Re ceived Time Location / / Volume Laterality 02/20/2008 11:02 AM CDT Judy Sorensen MD LAB_1 Performing Organization Address City/[facility]/ZIP Code Phon e Number HP CONVERSION AST (02/20/2008 11:02 AM CDT) [facility] Method Time Signature Aspartate 14 0 - 45 HP CONVERSION Aminotransferase U/L Specimen (Source) Anatomical Collection Method Collection Time Re ceived Time Location / / Volume Laterality 02/20/2008 11:02 AM CDT Judy Sorensen MD LAB_1 Performing Organization Address City/[facility] Code Phon e Number HP CONVERSION Creatinine / GFR (02/20/2008 11:02 AM CDT) athologist Signature Creatinine 0.8 0.4 - 1.3 HP CONVERSION Serum mg/dL Est GFR >60 >60 HP CONVERSION Am Comment: -[place] and Jvm-Hwwwocu-Ijfyixj n reference range units: mL/min/1.73m2 Normal>60, moderate decrease 30 - 59, se james decrease 15 - 29, renal failure <15 mL/min/1.73 m2 Est GFR Non-Afr Am >60 >60 HP CONVERSI ON Specimen (Source) Anatomical Collection Method Collection Time Re ceived Time Location / / Volume Laterality 02/20/2008 11:02 AM CDT Judy Sorensen MD LAB_1 Performing Organization Address City/[facility]/ZIP Code Phon e Number HP CONVERSION Glucose (02/20/2008 11:02 AM CDT) P athologist Signature Length Of Fast 12.0 Hours HP CONVERSION Lab Glucose 95 60 - 100 HP CONVERSION mg/dL Specimen (Source) Anatomical Collection Method Collection Time Re ceived Time Location / / Volume Laterality 02/20/2008 11:02 AM CDT Judy Sorensen MD LAB_1 Performing Organization Address [facility] Phon e Number HP CONVERSION Sodium (02/20/2008 11:02 AM CDT) P athologist Signature Sodium 143 137 - 147 HP CONVERSION mEq/L Specimen (Source) Anatomical Collection Method Collection Time Re ceived Time Location / / Volume Laterality 02/20/2008 11:02 AM CDT Judy Sorensen MD LAB_1 Performing Organization Address [facility] Phon e Number HP CONVERSION Potassium (02/20/2008 11:02 AM CDT) P athologist Signature Potassium 5.2 3.5 - 5.2 HP CONVERSION mEq/L Specimen (Source) Anatomical Collection Method Collection Time Re ceived Time Location / / Volume Laterality 02/20/2008 11:02 AM CDT Judy Sorensen MD LAB_1 Performing Organization Address [facility] Phon e Number HP CONVERSION [...] Judy Sorensen MD LAB_1 Performing Organization Address [facility] Phon e Number HP CONVERSION Pap Smear (02/20/2008 7:35 AM CDT) Patholo gist Method Time Signature PAP Smear SEE TEXT No normal HP CONVERSION Liquid Based range Comment: Patient: SHU OLIVA ? CERVICAL CYTOLOGY REPORT Pathology # ??[id number] ?Date Obtained: ? Date Received: CYTOLOGIC IMPRESSION: [...] on filedocumented in this encounter Care Teams Data Processing Equipment Repairer Relationship Specialty Start Date End Date Judy Sorensen MD PCP - General 12/18/10 05/02/18 [address] [place], [place] [address] documented as of this encounter
--- OUTSIDE RECORDS SUMMARY | 2022-05-09 08:12 | XMS_ITS | Encounter Summary ---
:1940 Author Organization [employer] Address [address] [address] Care Team Providers Name Role Phone Judy Sorensen MD Primary Care Provider Encounter Details Date Type Department Care Team Description 02/20/2008 Office Visit [facility] Gwen Sorensen MD [address] [address] [place] [address] [phone] Social History Tobacco Use Types Packs/Day Years [...] signed by Judy Larsen MD at 02/20/08 6435 Author: Judy Larsen MD Service: (none) Author Type: Physician Filed: 01/08/11 0420 Note Time: 02/20/08 0001 Status: Signed Manufacturing Advisor: Judy Larsen MD (Physician) Preventive Exam & [...] adenopathy. Pelvic: Normal external genitalia and urethra. [place], moist vaginal and cervical mucosa, without lesions. [...] on filedocumented in this encounter Care Teams Agricultural Equipment Mechanic Relationship Specialty Start Date End Date Judy Sorensen MD PCP - General 12/18/10 05/02/18 [address] [place] [address] documented as of this encounter
--- OUTSIDE RECORDS SUMMARY | 2022-05-09 08:12 | XMS_ITS | Encounter Summary ---
:1940 Author Organization [employer] Address [address] [place] [address] Care Team Providers Name Role Phone Judy Sorensen MD Primary Care Provider Reason for Visit Reason Comments Other Encounter Details Date Type Department Care Team Description 01/31/2008 Telephone [facility], Message Other [address] [place] [address] Social History Tobacco Use Types Packs/Day Years Used Date Smoking Tobacco: Never Assessed Sex Assigned at Date Recorded Not on file documented as of this encounter [facility], Message - 01/31/2008 9:12 AM CDT Phone Note filed by [employer] at 01/05/112055 Author: [employer] Service: (none) Author Type: (none) Filed: 01/05/112055 Note Time: 01/31/08911 Status: Signed Washer Hand: [employer] Prescription Refill Please provide enough refills to last until patient's next visit. Comment:- Pharmacy Seq #:-[phone] Pharmacy Name:-[facility] Street or City:[facility] Clinician Name:-Evon Larsen Drug Name/Strength:-Atenolol 25MG tab [...] exam or med ck appt due. On [id number] 4:21pm UTE MATOS wrote: Patient made appt for 03/01 TENDER documented in this encounter Plan of Treatment Not on filedocumented as of this encounter Visit Diagnoses Not on filedocumented in this encounter Care Teams Molecular Pathologist Relationship Specialty Start Date End Date Judy Sorensen MD PCP - General 12/18/10 05/02/18 [address] [place] [address] documented as of this encounter
--- OUTSIDE RECORDS SUMMARY | 2022-05-09 08:12 | XMS_ITS | Encounter Summary ---
:1940 Author Organization [employer] Address [address] [place] [address] Care Team Providers Name Role Phone Judy Sorensen MD Primary Care Provider Encounter Details Date Type Department Care Team Description 02/09/2007 Office Visit [facility] [place] [address] [facility] [address] [place] [address] [place], [place] [id number] Social History Tobacco Use Types Packs/Day Years [...] 01/07/110 Note Time: 02/09/07 0001 Status: Signed Job Forwarder: Wilmer Murphy MD (Physician) NAME: SHU OLIVA MR#: [id number] ACCT: [id number] VISIT: [id number] DICTATING CLINICIAN: WILMER MURPHY MD JOB: [id number] LOC: 520 CLINIC PROGRESS NOTE DATE OF [...] DIAGNOSIS: Right upper chest wall pain. Contusion. [id number] C: 02/10/07 09:31 DOCUMENT: [id number] documented in this encounter Plan of Treatment [...] in approximately 3-4 weeks. ??No obvious ac [place] rib fracture seen. [facility]/ [address] Dictating ALLEN GONZALES MD Procedure Note Allen [...] No obvious acut e rib fracture seen. [facility]/ [address] Dictating ALLEN GONZALES MD Wilmer Murphy MD RAD GD documented in this encounter Visit Diagnoses Not on filedocumented in this encounter Care Teams Ground Operations Superintendent Relationship Specialty Start Date End Date Judy Sorensen MD PCP - General 12/18/10 05/02/18 [address] [place] [address] documented as of this encounter
--- OUTSIDE RECORDS SUMMARY | 2022-05-09 08:12 | XMS_ITS | Encounter Summary ---
:1940 Author Organization [employer] Address [address] [place] [address] Care Team Providers Name Role Phone Judy Sorensen MD Primary Care Provider Encounter Details Date Type Department Care Team Description 01/25/2008 PN Conversion Only [place] [facility] [address] [address] [place] [address] Social History Tobacco Use Types Packs/Day Years Used Date Smoking Tobacco: Never Assessed Sex Assigned at Date Recorded Not on file documented as of this encounter Plan of Treatment Not on filedocumented as of this encounter Visit Diagnoses Not on filedocumented in this encounter Care Teams Chef De Froid Relationship Specialty Start Date End Date Judy Sorensen MD PCP - General 12/18/10 05/02/18 [address] [place], [place] [address] documented as of this encounter
--- OUTSIDE RECORDS SUMMARY | 2022-05-09 08:12 | XMS_ITS | Encounter Summary ---
:1940 Author Organization [employer] Address [address] [place] [address] Care Team Providers Name Role Phone Jduy Sorensen MD Primary Care Provider Reason for Visit Reason Comments Other Encounter Details Date Type Department Care Team Description 10/16/[address] [facility], Message Other [address] [place], [place] [address] Social History Tobacco Use Types Packs/Day Years Used Date Smoking Tobacco: Never Assessed Sex Assigned at Date Recorded Not on file documented as of this encounter [facility], Message - 10/16/2007 9:55 AM CST Phone Note filed by CL3VER at 01/05/11 1245 Author: CL3VER Service: (none) Author Type: (none) Filed: 01/05/11 2704 Note Time: 10/16/07954 Status: Signed Van Driver Helper: Message [employer] Medication Issue/Refill Caller Name/Relationship:pt Primary Wind Field Manager:Suzie Comment/Symptom:Patient's insurance does not cover Lipitor. She prefers to take a generic of Lipitor if Dr Larsen feels they're compatible. Pharmacy Name & Phone #:[facility] [facility] Street or City: Drug Name:New insurance covers Simvastitin and Pravastatine Strength:Lipitor script is for 60mg Dose/Route/Freq:1 tab daily Route Clerk:Please notify Best call back number:[phone] Is it OK to leave a confidential [...] her Acknowledged by KALI ONEAL on 12:12pm R LABORATORY documented in this encounter Plan of Treatment Not on filedocumented as of this encounter Visit Diagnoses Not on filedocumented in this encounter Care Teams Electronic Organ Technician Relationship Specialty Start Date End Date Judy Sorensen MD PCP - General 12/18/10 05/02/18 [address] [place] [address] documented as of this encounter
--- OUTSIDE RECORDS SUMMARY | 2022-05-09 08:12 | XMS_ITS | Encounter Summary ---
:1940 Author Organization [employer] Address [address] [place] [address] Care Team Providers Name Role Phone Judy Sorensen MD Primary Care Provider Encounter Details Date Type Department Care Team Description 11/14/2006 [facility] Carlee Feldman MD [facility] [address] [place] [address] [place] [address] [phone] Social History Tobacco Use Types Packs/Day Years Used Date Smoking Tobacco: Never Assessed Sex Assigned at Date Recorded Not on file documented as of this encounter Last Filed Vital Signs Vital Sign Reading Time Taken Comments Blood Pressure 130/64 11/14/2006 11:15 AM UTILITY WORKER DRIVER Pulse - - Temperature - - Respiratory [...] 1719 Note Time: 11/14/06 0001 Status: Signed Furniture Sprayer: Carlee Gracia MD (Physician) NAME: SHU OLIVA MR#: [id number] ACCT: [id number] VISIT: [id number] DICTATING CLINICIAN: CARLEE GRACIA MD JOB: [id number] LOC: 3588 CLINIC PROGRESS NOTE DATE OF [...] in 4-6 weeks, she should come back. JMM:[id number] C: 11/14/06 12:33 DOCUMENT: [id number] ITY WORKER DRIVER documented in this encounter Plan of Treatment Not on filedocumented as of this encounter Visit Diagnoses Not on filedocumented in this encounter Care Teams Top Former Relationship Specialty Start Date End Date Judy Sorensen MD PCP - General 12/18/10 05/02/18 [address] [place] [address] documented as of this encounter
--- OUTSIDE RECORDS SUMMARY | 2022-05-09 08:12 | XMS_ITS | Encounter Summary ---
:1940 Author Organization [employer] Address [address] [address] Care Team Providers Name Role Phone Judy Sorensen MD Primary Care Provider Encounter Details Date Type Department Care Team Description 07/13/2007 PN Conversion Only [place] [address] [place] [address] [place], [place] [address] (Wo rk) Social History Tobacco Use Types [...] Complete Blood Count-W/Diff (07/13/2007 8:27 AM CDT) [facility] Method Time Signature White Blood Cell [...] - HP CONVERSION Hemoglobin Conc 36.5 gm/dL Tower RDW 13.0 11.0 - HP CONVERSION 15.0 [...] on filedocumented in this encounter Care Teams Orthopaedic Nurse Relationship Specialty Start Date End Date Judy Sorensen MD PCP - General 12/18/10 05/02/18 [address] [place] [address] documented as of this encounter
--- OUTSIDE RECORDS SUMMARY | 2022-05-09 08:12 | XMS_ITS | Encounter Summary ---
:1940 Author Organization [facility] Address [address] [place] [address] Care Team Providers Name Role Phone Judy Sorensen MD Primary Care Provider Reason for Visit Reason Comments Other Encounter Details Date Type Department Care Team Description 02/21/2008 Telephone [facility] Elisabeth Ortiz Other [address] [place] [address] Social History Tobacco Use Types Packs/Day Years Used Date Smoking Tobacco: Never Assessed Sex Assigned at Date Recorded Not on file documented as of this encounter Progress Notes Elsiabeth Ortiz - 02/21/2008 11:12 AM CDT Phone Note filed by Elisabeth Ortiz RN at 01/05/112223 Author: Elisabeth Ortiz RN Service: (none) Author Type: Registered Nurse Filed: 01/05/112223 Note Time: 02/21/081111 Status: Signed Oil Field Worker: Elisabeth Ortiz RN (Registered Nurse) PPA completed and instructions reviewed for colonoscopy. pt. verbalized understanding. shuttle truck driver policy reviewed. Created on 21Feb2008 11:12am by ELISABETH ORTIZ SE MACHINE OPERATOR HELPER documented in this encounter Plan of Treatment Not on filedocumented as of this encounter Visit Diagnoses Not on filedocumented in this encounter Care Teams Clean Up Worker Relationship Specialty Start Date End Date Judy Sorensen MD PCP - General 12/18/10 05/02/18 [address] [place] [address] documented as of this encounter
--- OUTSIDE RECORDS SUMMARY | 2022-05-09 08:12 | XMS_ITS | Encounter Summary ---
:1940 Author Organization [employer] Address [address] [address] Care Team Providers Name Role Phone Judy Sorensen MD Primary Care Provider Encounter Details Date Type Department Care Team Description 01/25/2008 Office Visit [facility] [place] [address] [place] [address] Social History Tobacco Use Types [...] signed by Kings Camargo MD at 02/01/08 6546 Author: Kings Camargo MD Service: (none) Author Type: Physician Filed: 01/08/11 0342 Note Time: 01/25/08 0001 Status: Signed Geographic Information Systems Analyst: Kings Camargo MD (Physician) NAME: SHU OLIVA MR#: [id number] ACCT: [id number] VISIT: [id number] DICTATING CLINICIAN: KINGS CAMARGO MD JOB: [id number] LOC: 520 CLINIC PROGRESS NOTE DATE OF [...] hearing. FINAL DIAGNOSIS: Ceruminosis bilateral ears, removed. [id number] C: 01/26/08 14:55 DOCUMENT: [id number] documented in this encounter Plan of Treatment Not on filedocumented as of this encounter Visit Diagnoses Not on filedocumented in this encounter Care Teams Spin Tank Tender Relationship Specialty Start Date End Date Judy Sorensen MD PCP - General 12/18/10 05/02/18 [address] [place] [address] documented as of this encounter
--- OUTSIDE RECORDS SUMMARY | 2022-05-09 08:12 | XMS_ITS | Encounter Summary ---
:1940 Author Organization [employer] Address [address] [place] [address] Care Team Providers Name Role Phone Judy Sorensen MD Primary Care Provider Encounter Details Date Type Department Care Team Description 02/08/2008 Office Visit [facility] Mukesh Kiran [address] [place], [place] [address] Social History Tobacco Use Types Packs/Day Years Used Date Smoking Tobacco: Never Assessed Sex Assigned at Date Recorded Not on file documented as of this encounter Plan of Treatment Not on filedocumented as of this encounter Visit Diagnoses Not on filedocumented in this encounter Care Teams Gluing Machine Offbearer Relationship Specialty Start Date End Date Judy Sorensen MD PCP - General 12/18/10 05/02/18 [address] [place], [place] [address] documented as of this encounter
--- OUTSIDE RECORDS SUMMARY | 2022-05-09 08:12 | XMS_ITS | Encounter Summary ---
:1940 Author Organization [facility] Address [address] [place] [address] Care Team Providers Name Role Phone Judy Sorensen MD Primary Care Provider Encounter Details Date Type Department Care Team Description 01/19/2007 PN Conversion Only [place] [address] [place] [address] [place], [place] [address] (Wo rk) Social History Tobacco Use Types [...] Results ALT (SGPT) (01/19/2007 10:56 AM CDT) [facility] Method Time Signature Alanine 50 4 - 55 HP CONVERSION Aminotransferase U/L Specimen (Source) Anatomical Collection Method Collection Time Re ceived Time Location / / Volume Laterality 01/19/2007 10:56 AM CDT Judy Sorensen MD LAB_1 Performing Organization Address City/State/ZIP Code Phon e Number HP CONVERSION AST (01/19/2007 10:56 AM CDT) [facility] Method Time Signature Aspartate 35 0 - 45 HP CONVERSION Aminotransferase U/L Specimen (Source) Anatomical Collection Method Collection Time Re ceived Time Location / / Volume Laterality 01/19/2007 10:56 AM CDT Judy Sorensen MD LAB_1 Performing Organization Address City/[facility]/ZIP Code Phon e Number HP CONVERSION (ABNORMAL) Lipid Panel and Direct LDL(If Needed) (01/19/2007 10:56 AM CDT) [facility] Method Time Signature Length Of Fast 12.0 [...] Judy Sorensen MD LAB_1 Performing Organization Address [facility] Phon e Number HP CONVERSION Thyroid Stimulating Hormone (01/19/2007 10:56 AM CDT) P athologist Signature Thyroid 1.93 0.20 - HP CONVERSION Stimulating 4.50 Hormone uIU/mL Specimen (Source) Anatomical Collection Method Collection Time Re ceived Time Location / / Volume Laterality 01/19/2007 10:56 AM CDT Judy Sorensen MD LAB_1 Performing Organization Address [facility] Phon e Number HP CONVERSION Pap Smear (01/19/2007 9:13 AM CDT) Patholo gist Method Time Signature PAP Smear SEE TEXT No normal HP CONVERSION Liquid Based range Comment: Patient: SHU OLIVA ? CERVICAL CYTOLOGY REPORT Pathology # ??[id number] ?Date Obtained: ? Date Received: CYTOLOGIC IMPRESSION: Negative for intraepithelial lesion or m alignancy. Verified 01/23/07 by: ??JLD ?(electronic signature) ? PAULINA TIONAL DATA LMP: ?VEHICLE MECHANIC CLINICAL HIST LIQUID BASED PAP CERVICAL SPECIMEN ADEQUACY: ?? Satisfactory. ENDOCERVICAL CELLS: ??Absent; patient is post-menopausal. Specimen (Source) Anatomical Collection Method Collection Time Re ceived Time Location / / Volume Laterality 01/19/2007 9:13 AM CDT Judy Sorensen MD LAB_1 Performing Organization Address City/State/ZIP Code Phon e Number HP CONVERSION documented in this encounter Visit Diagnoses Not on filedocumented in this encounter Care Teams Exploration Geologist Relationship Specialty Start Date End Date Judy Sorensen MD PCP - General 12/18/10 05/02/18 [address] [place], [place] [address] documented as of this encounter
--- OUTSIDE RECORDS SUMMARY | 2022-05-09 08:12 | XMS_ITS | Encounter Summary ---
:1940 Author Organization [employer] Address [address] [place] [address] Care Team Providers Name Role Phone Judy Sorensen MD Primary Care Provider Encounter Details Date Type Department Care Team Description 02/16/2007 PN Conversion Only [facility] [address] [place] [address] Social History Tobacco Use Types Packs/Day Years [...] on filedocumented in this encounter Care Teams Crop Grain Or Livestock Farm Manager Relationship Specialty Start Date End Date Judy Sorensen MD PCP - General 12/18/10 05/02/18 [address] [place] [address] documented as of this encounter
--- OUTSIDE RECORDS SUMMARY | 2022-05-09 08:12 | XMS_ITS | Encounter Summary ---
:1940 Author Organization [employer] Address [address] [place] [address] Care Team Providers Name Role Phone Judy Sorensen MD Primary Care Provider Reason for Visit Reason Comments Other Encounter Details Date Type Department Care Team Description 01/02/2007 Telephone [facility], Message Other [address] [place], [place] [address] Social History Tobacco Use Types Packs/Day Years Used Date Smoking Tobacco: Never Assessed Sex Assigned at Date Recorded Not on file documented as of this encounter [facility], Message - 01/02/2007 9:36 AM CDT Phone Note filed by [employer] at 01/04/111919 Author: [employer] Service: (none) Author Type: (none) Filed: 01/04/111919 Note Time: 01/02/07935 Status: Signed Sole Ruffer: [employer] PRESCRIPTION REFILL Request #1: Please provide enough refills to last until patient's next visit. Comment:- Pharmacy Seq #:-[phone] Pharmacy Name:-[facility] City:[facility] Clinician Name:-Suzie Drug Name/Strength:-Ranitidine 300mg tabs. Sig: [...] make well appointment for 01/19 at 9:45. LOG LIBRARIAN documented in this encounter Plan of Treatment Not on filedocumented as of this encounter Visit Diagnoses Not on filedocumented in this encounter Care Teams Closing Supervisor Relationship Specialty Start Date End Date Judy Sorensen MD PCP - General 12/18/10 05/02/18 [address] [place] [address] documented as of this encounter
--- OUTSIDE RECORDS SUMMARY | 2022-05-09 08:12 | XMS_ITS | Encounter Summary ---
:1940 Author Organization [employer] Address [address] [address] Care Team Providers Name Role Phone Judy Sorensen MD Primary Care Provider Encounter Details Date Type Department Care Team Description 07/03/2007 Nursing Visit [facility] [place] [address] [place] [address] [place], [place] [phone] [address] Social History Tobacco Use Types Packs/Day Years Used Date Smoking Tobacco: Never Assessed Sex Assigned at Date Recorded Not on file documented as of this encounter Plan of Treatment Not on filedocumented as of this encounter Visit Diagnoses Not on filedocumented in this encounter Care Teams Performance Reporter Relationship Specialty Start Date End Date Judy Sorensen MD PCP - General 12/18/10 05/02/18 [address] [place], [place] [address] documented as of this encounter
--- OUTSIDE RECORDS SUMMARY | 2022-05-09 08:12 | XMS_ITS | Encounter Summary ---
:1940 Author Organization [employer] Address [address] [address] Care Team Providers Name Role Phone Judy Sorensen MD Primary Care Provider Encounter Details Date Type Department Care Team Description 01/19/2007 Office Visit [facility] Gwen Sorensen MD [address] [address] [place] [address] [phone] Social History Tobacco Use Types Packs/Day Years [...] signed by Judy Larsen MD at 01/30/07 0477 Author: Judy Larsen MD Service: (none) Author Type: Physician Filed: 01/07/11 1844 Note Time: 01/19/072017 Status: Signed Filling Winder: Judy Larsen MD (Physician) NAME: SHU OLIVA MR#: [id number] ACCT: [id number] VISIT: [id number] DICTATING CLINICIAN: JUDY LARSEN MD JOB: [id number] LOC: 502 CLINIC PHYSICAL DATE OF VISIT: [...] is congratulated on her efforts to date. [facility]:[id number] C: 01/22/07 13:31 DOCUMENT: [id number] documented in this encounter Plan of Treatment Not on filedocumented as of this encounter Visit Diagnoses Not on filedocumented in this encounter Care Teams Med Dir Relationship Specialty Start Date End Date Judy Sorensen MD PCP - General 12/18/10 05/02/18 [address] [place] [address] documented as of this encounter
--- OUTSIDE RECORDS SUMMARY | 2022-05-09 08:12 | XMS_ITS | Encounter Summary ---
:1940 Author Organization [employer] Address [address] [place] [address] Care Team Providers Name Role Phone Judy Sorensen MD Primary Care Provider Reason for Visit Reason Comments Other Encounter Details Date Type Department Care Team Description 02/02/2007 Telephone [facility], Message Other [address] [place], [place] [address] Social History Tobacco Use Types Packs/Day Years Used Date Smoking Tobacco: Never Assessed Sex Assigned at Date Recorded Not on file documented as of this encounter [facility], Message - 02/02/2007 3:09 PM CDT Phone Note filed by [employer] at 01/04/112109 Author: [employer] Service: (none) Author Type: (none) Filed: 01/04/112109 Note Time: 02/02/07 1509 Status: Signed 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: [employer]on MESSAGE TO CARE TEAM NAME OF CALLER:Sg [facility] NAME OF CLINICIAN:Dr Larsen MESSAGE:please call regarding a RX script for pt written on , 01-24-07 PHARMACY NAME:[facility] PHONE #: [phone] fax# [phone] CITY:[place] CALL BACK PHONE OR CELL PHONE:above BEST [...] pharm Acknowledged by MARKUS CORLEY on 12:20pm T CAPTAIN documented in this encounter Plan of Treatment Not on filedocumented as of this encounter Visit Diagnoses Not on filedocumented in this encounter Care Teams Kids Activities Coach Relationship Specialty Start Date End Date Jduy Sorensen MD PCP - General 12/18/10 05/02/18 [address] [place] [address] documented as of this encounter
--- OUTSIDE RECORDS SUMMARY | 2022-05-09 08:13 | XMS_ITS | Encounter Summary ---
:1940 Author Organization [employer] Address [address] [place] [address] Care Team Providers Name Role Phone Judy Sorensen MD Primary Care Provider Encounter Details Date Type Department Care Team Description 06/25/2005 PN Conversion Only [facility] [address] [address] [place] [address] Social History Tobacco Use Types Packs/Day Years Used Date Smoking Tobacco: Never Assessed Sex Assigned at Date Recorded Not on file documented as of this encounter Plan of Treatment Not on filedocumented as of this encounter Visit Diagnoses Not on filedocumented in this encounter Care Teams Director Multimedia Relationship Specialty Start Date End Date Judy Sorensen MD PCP - General 12/18/10 05/02/18 [address] [place], [place] [address] documented as of this encounter
--- OUTSIDE RECORDS SUMMARY | 2022-05-09 08:13 | XMS_ITS | Encounter Summary ---
:1940 Author Organization [employer] Address [address], [place] [address] Care Team Providers Name Role Phone Judy Sorensen MD Primary Care Provider Encounter Details Date Type Department Care Team Description 05/16/2006 Office Visit [facility] Gwen Sorensen MD [address] [address] [place] [address] [phone] Social History Tobacco Use Types Packs/Day Years [...] 1339 Note Time: 05/16/06 0001 Status: Signed Cable Wirer: Judy Larsen MD (Physician) NAME: SHU OLIVA MR: [id number] ACCT: [id number] VISIT: [id number] DICTATING CLINICIAN: JUDY LARSEN MD JOB: [id number] LOC: 502 CLINIC PROGRESS NOTE DATE OF [...] a patient with multiple risk factors including residential tobacco use, history of noncritical single vessel coronary artery disease, hypertension, and hyperlipidemia. PLAN: Ankle brachial index duplex carotid ultrasound. Unless completely normal will plan vascular surgery consultation once findings are known. Initiate tobacco cessation planning with Zyban 150 mg p.o. b.i.d. Discussed means to achieve tobacco cessation. Offered the quit plan which patient declined. [facility]:[id number] C: 05/17/06 23:39 DOCUMENT: [id number] documented in this encounter Plan of Treatment Not on filedocumented as of this encounter Visit Diagnoses Not on filedocumented in this encounter Care Teams Ticket Attendant Relationship Specialty Start Date End Date Judy Sorensen MD PCP - General 12/18/10 05/02/18 [address] [place] [address] documented as of this encounter
--- OUTSIDE RECORDS SUMMARY | 2022-05-09 08:13 | XMS_ITS | Encounter Summary ---
:1940 Author Organization [employer] Address [address] [place] [address] Care Team Providers Name Role Phone Judy Sorensen MD Primary Care Provider Reason for Visit Reason Comments Other Encounter Details Date Type Department Care Team Description 03/10/2006 Telephone [facility], Message Other [address] [place] [address] Social History Tobacco Use Types Packs/Day Years Used Date Smoking Tobacco: Never Assessed Sex Assigned at Date Recorded Not on file documented as of this encounter Progress Notes Mynor Pruitt - 03/10/2006 8:14 AM CDT Phone Note filed by Mynor Pruitt at 01/04/1137 Author: Mynor Pruitt Service: (none) Author Type: (none) Filed: 01/04/11 0535 Note Time: 03/10/06813 Status: Signed Media Producer: Alisa Conversion this pt showed up downstairs [...] lab Acknowledged by MARKUS CORLEY on 9:17am LEAD FORMER documented in this encounter Plan of Treatment Not on filedocumented as of this encounter Visit Diagnoses Not on filedocumented in this encounter Care Teams Board Layer Relationship Specialty Start Date End Date Judy Sorensen MD PCP - General 12/18/10 05/02/18 [address] [place] [address] documented as of this encounter
--- OUTSIDE RECORDS SUMMARY | 2022-05-09 08:13 | XMS_ITS | Encounter Summary ---
:1940 Author Organization [employer] Address [address] [place] [address] Care Team Providers Name Role Phone Unassigned, Provider Primary Care Provider Unavailable Encounter Details Date Type Department Care Team Description 08/15/2006 Hospital Encounter [facility] CONVERSION Jean Claude Mckinley MD [address] [place] [address] (Wo rk) Social History Tobacco Use Types [...] 12:08 Result s for this ECHOCARDIOGRAM PM POWER PRESS TENDER procedure are in the results section. documented in this encounter Results Dobutamine Stress Echocardiogram (08/15/2006 12:08 PM POWER PRESS TENDER) Specimen (Source) Anatomical Collection Method Collection Time Re ceived Time Location / / Volume Laterality 08/15/2006 12:08 PM POWER PRESS TENDER Narrative HP CONVERSION - 08/15/2006 12:08 PM POWER PRESS TENDER This study included two-dimensional echo, pulse, continuous [...] filedocumented in this encounter Care Teams Supervisor Instrument Maintenance Relationship Specialty Start Date End Date Unassigned, Provider PCP - General 08/25/00 12/17/[address] [place] [address] documented as of this encounter
--- OUTSIDE RECORDS SUMMARY | 2022-05-09 08:13 | XMS_ITS | Encounter Summary ---
:1940 Author Organization [employer] Address [address] [place] [address] Care Team Providers Name Role Phone Judy Sorensen MD Primary Care Provider Reason for Visit Reason Comments Other Encounter Details Date Type Department Care Team Description 11/24/2005 Telephone [facility], Message Other [address] [place] [address] Social History Tobacco Use Types Packs/Day Years Used Date Smoking Tobacco: Never Assessed Sex Assigned at Date Recorded Not on file documented as of this encounter Progress Notes Jacqueline Mccurdy - 11/24/2005 8:42 AM CST Phone Note filed by Jacqueline Mccurdy MA at 01/04/11134 Author: Jacqueline Mccurdy MA Service: (none) Author Type: (none) Filed: 01/04/11134 Note Time: 11/24/05841 Status: Signed Cokeman: Jacqueline Mccurdy MA (Baling Press Operator) Pt called and needs a refill of Atenolol 25mg called into [facility] in [place].Please call pt when done [phone] thanks Created on 24Nov2005 8:42am by JACQUELINE MCCURDY On 24Nov2005 5:51pm JUDY GARCÍA wrote: Please check on the pharmacy - there is not a fax for [facility] in [place]. Patient was last seen 06-21, I will [...] refills Acknowledged by MARKUS CORLEY on 9:17am SPEED OPERATOR documented in this encounter Plan of Treatment Not on filedocumented as of this encounter Visit Diagnoses Not on filedocumented in this encounter Care Teams Gas Station Service Attendant Relationship Specialty Start Date End Date Judy Sorensen MD PCP - General 12/18/10 05/02/18 [address] [place] [address] documented as of this encounter
--- OUTSIDE RECORDS SUMMARY | 2022-05-09 08:13 | XMS_ITS | Encounter Summary ---
:[address] Address [address] [place] [address] Care Team Providers Name Role Phone Unassigned, Provider Primary Care Provider Unavailable Encounter Details Date Type Department Care Team Description 09/27/2006 - Hospital Encounter Denominational Jordan Gracia MD [address], [place] [id number] 10/03/2006 [id number] Carlee Gracia MD [address] [place] [address] [facility] [address] [place] [address] Social History Tobacco Use Types Packs/Day Years Used Date Smoking Tobacco: Never Assessed Sex Assigned at Date Recorded Not on file documented as of this encounter Last Filed Vital Signs Vital Sign Reading Time Taken Comments Blood Pressure 111/63 10/03/2006 7:39 AM C: Manual MAKING MACHINE OPERATOR Pulse 90 10/03/2006 7:39 AM MAKING MACHINE OPERATOR Temperature 37.1 ??C (98.8 ??F) 10/03/2006 7:39 AM ORAL C: 9 8.8 F MAKING MACHINE OPERATOR Respiratory Rate 16 10/03/2006 7:39 AM MAKING MACHINE OPERATOR Oxygen Saturation 96% 10/03/2006 4:43 AM MAKING MACHINE OPERATOR Inhaled Oxygen Concentration - - Weight 65.7 kg (144 lb 13.5 09/30/2006 7:25 AM C: 144.8 lb oz) MAKING MACHINE OPERATOR Height - - Body Mass Index - - documented in this encounter Discharge Summaries Carlee Gracia MD - 10/03/2006 12:01 AM CST Discharge Summaries signed by Carlee Gracia MD at 11/02/06 1615 Author: Carlee Gracia MD Service: (none) Author Type: Physician Filed: 01/07/11 9118 Note Time: 11/02/06 0836 Status: Signed Hog Pusher: Carlee Gracia MD (Physician) NAME: SHU OLIVA MR#: [id number] ACCT: [id number] AUTHENTICATING CLINICIAN: CARLEE GRACIA MD JOB: [id number] LOC: 1 HOSPITAL DISCHARGE SUMMARY DATE OF [...] clinic accordingly in the next 2 weeks. NICKIM:[id number] C: 11/02/06 09:10 DOCUMENT: [id number] NG MACHINE OPERATOR documented in this encounter Medications at Time [...] 1617 Note Time: 09/29/06 0909 Status: Signed Hog Pusher: Carlee Gracia MD (Physician) NAME: SHU OLIVA MR#: [id number] ACCT: [id number] AUTHENTICATING CLINICIAN: CARLEE GRACIA MD JOB: [id number] LOC: 1 OPERATIVE REPORT DATE OF OPERATION: 09/27/06 INDICATIONS FOR PROCEDURE: PREOPERATIVE DIAGNOSIS: Severe aortoiliac occlusive disease. POSTOPERATIVE DIAGNOSIS: Severe aortoiliac occlusive disease. PROCEDURE PERFORMED: 1. Aortobifemoral bypass using 16 by 8 mm PTFE graft. 2. Ligation of left external iliac artery. SURGEON: Carlee Gracia M.D. STEWARD/STEWARDESS TOURIST CLASS: Ubaldo Hinojosa M.D. ANESTHESIA: General endotracheal anesthesia. [...] allowed blood to flow back into the [facility] circulation for a period of 1 to [...] and went to recovery in stable condition. 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 COMPLETE BLOOD Routine 09/29/2006 7:35 AM Results for this COUNT-W/DIFF MAKING MACHINE OPERATOR procedure are i n the results section. HEMOGLOBIN, BLOOD Routine 09/28/2006 8:27 PM Resu lts for this MAKING MACHINE OPERATOR procedure are i n the results section. XR PORTABLE CHEST 1 Routine 09/28/2006 7:15 AM Re sults for this VIEW MAKING MACHINE OPERATOR procedure are i n the results section. ECG 12 LEAD INPATIENT Routine 09/28/2006 6:34 AM Results for this MAKING MACHINE OPERATOR procedure are i n the results section. ELECTROLYTES (NA, K, Routine 09/28/2006 4:00 AM R esults for this CL, BICARB) MAKING MACHINE OPERATOR procedure are i n the results section. CREATININE / GFR Routine 09/28/2006 4:00 AM Resul ts for this MAKING MACHINE OPERATOR procedure are i n the results section. COMPLETE BLOOD Routine 09/28/2006 4:00 AM Results for this COUNT-W/DIFF MAKING MACHINE OPERATOR procedure are i n the results section. MAGNESIUM Routine 09/28/2006 4:00 AM Results f or this MAKING MACHINE OPERATOR procedure are i n the results section. BEDSIDE GLUCOSE MONITOR Routine 09/27/2006 5:31 PM Results for this POCT MAKING MACHINE OPERATOR procedure are i n the results section. MRSA CULTURE Routine 09/27/2006 5:27 PM Results f or this MAKING MACHINE OPERATOR procedure are i n the results section. XR PORTABLE CHEST 1 Routine 09/27/2006 4:17 PM Re sults for this VIEW MAKING MACHINE OPERATOR procedure are i n the results section. ECG 12 LEAD INPATIENT STAT 09/27/2006 4:05 PM Results for this MAKING MACHINE OPERATOR procedure are i n the results section. ELECTROLYTES (NA, K, Routine 09/27/2006 3:46 PM R esults for this CL, BICARB) MAKING MACHINE OPERATOR procedure are i n the results section. CREATININE / GFR Routine 09/27/2006 3:46 PM Resul ts for this MAKING MACHINE OPERATOR procedure are i n the results section. COMPLETE BLOOD Routine 09/27/2006 3:46 PM Results for this COUNT-W/DIFF MAKING MACHINE OPERATOR procedure are i n the results section. APTT (ACTIVATED PARTIAL Routine 09/27/2006 3:46 PM Results for this THROMBOPLASTIN TIME MAKING MACHINE OPERATOR procedur e are in the results section. MAGNESIUM Routine 09/27/2006 3:46 PM Results f or this MAKING MACHINE OPERATOR procedure are i n the results section. POTASSIUM Routine 09/27/2006 10:00 Results for this AM MAKING MACHINE OPERATOR procedure are i n the results section. BEDSIDE GLUCOSE MONITOR Routine 09/27/2006 9:57 AM Results for this POCT MAKING MACHINE OPERATOR procedure are i n the results section. LAB TYPE, SCREEN AND Routine 09/27/2006 9:45 AM R esults for this CROSSMATCH MAKING MACHINE OPERATOR procedure are i n the results section. documented in this encounter Results (ABNORMAL) Basic Metabolic Panel (09/29/2006 7:35 AM MAKING MACHINE OPERATOR) [facility] Method Time Signature Creatinine Serum 1.1 0.5 [...] / / Volume Laterality 09/29/2006 7:35 AM MAKING MACHINE OPERATOR Thomas Hinojosa MD LAB_1 Performing Organization Address City/State/ZIP Code Phon e Number HP CONVERSION (ABNORMAL) Complete Blood Count-W/Diff (09/29/2006 7:35 AM MAKING MACHINE OPERATOR) [facility] Method Time Signature White Blood Cell 9.0 [...] - HP CONVERSION Hemoglobin Conc 36.5 gm/dL [place] RDW 13.6 11.0 - HP CONVERSION 15.0 [...] / / Volume Laterality 09/29/2006 7:35 AM MAKING MACHINE OPERATOR Thomas Hinojosa MD LAB_1 Performing Organization Address City/State/ZIP Code Phon e Number HP CONVERSION Hemoglobin, Blood (09/28/2006 8:27 PM MAKING MACHINE OPERATOR) P athologist Signature Hemoglobin 13.1 11.8 - 15.5 HP CONVERSION gm/dL Specimen (Source) Anatomical Collection Method Collection Time Re ceived Time Location / / Volume Laterality 09/28/2006 8:27 PM MAKING MACHINE OPERATOR Carlee Gracia MD LAB_1 Performing Organization Address City/State/ZIP Code Phon e Number HP CONVERSION XR Portable Chest 1 View (09/28/2006 7:15 AM MAKING MACHINE OPERATOR) Anatomical Region Laterality Modality Chest, Lung Other Specimen (Source) Anatomical Location Collection Method / Collectio n Time Received Time / Laterality Volume Narrative 09/28/2006 7:15 AM MAKING MACHINE OPERATOR PORTABLE CHEST, 09/28/2006 Comparison is made to 09/27/2006. ??Tube s and catheters are unchanged. The lungs are clear, and the heart and m ediastinum are unremarkable. CONCLUSION: ??No change from 09/27/2006. [id number] Dictating ERASMO MENSAH RADIOLOGIST Procedure Note Erasmo Parikh - 11/26/2016Formattin g of this note might be different from the original. PORTABLE CHEST, 09/28/2006 Comparison is made to 09/27/2006. Tubes and catheters are unchanged. The lungs are clear, and the heart and m ediastinum are unremarkable. CONCLUSION: No change from 09/27/2006. [id number] Dictating ERASMO MENSAH RADIOLOGIST Thomas Hinojosa MD RAD PORTABLE ECG 12 Lead Inpatient (09/28/2006 6:34 AM MAKING MACHINE OPERATOR) Specimen (Source) Anatomical Collection Method Collection Time Re ceived Time Location / / Volume Laterality 09/28/2006 6:34 AM MAKING MACHINE OPERATOR Narrative HP CONVERSION - 09/28/2006 6:34 AM MAKING MACHINE OPERATOR Normal sinus rhythm Normal ECG When compared with ECG of 27-SEP-2006 1 6:05, T wave amplitude has decreased in Infer ior leads Thomas Hinojosa MD PN ECG ORDERABLES Performing Organization Address City/State/ZIP Code Phon e Number HP CONVERSION (ABNORMAL) Complete Blood Count-W/Diff (09/28/2006 4:00 AM MAKING MACHINE OPERATOR) [facility] gist Method Time Signature White Blood [...] - HP CONVERSION Hemoglobin Conc 36.5 gm/dL [place] RDW 12.9 11.0 - HP CONVERSION 15.0 [...] / / Volume Laterality 09/28/2006 4:00 AM MAKING MACHINE OPERATOR Thomas Hinojosa MD LAB_1 Performing Organization Address City/State/ZIP Code Phon e Number HP CONVERSION Electrolytes (NA, K, CL, Bicarb) (09/28/2006 4:00 AM MAKING MACHINE OPERATOR) athologist Signature Sodium 140 137 - 147 HP CONVERSION mEq/L Potassium 4.3 3.5 - 5.2 HP CONVERSION mEq/L Chloride 109 98 - 110 HP CONVERSION mEq/L Bicarbonate 24 23 - 33 HP CONVERSION mmol/L Specimen (Source) Anatomical Collection Method Collection Time Re ceived Time Location / / Volume Laterality 09/28/2006 4:00 AM MAKING MACHINE OPERATOR Thomas Hinojosa MD LAB_1 Performing Organization Address City/[facility]/ZIP Code Phon e Number HP CONVERSION Creatinine / GFR (09/28/2006 4:00 AM MAKING MACHINE OPERATOR) athologist Signature Creatinine 0.7 0.5 - 1.5 HP CONVERSION Serum mg/dL Specimen (Source) Anatomical Collection Method Collection Time Re ceived Time Location / / Volume Laterality 09/28/2006 4:00 AM MAKING MACHINE OPERATOR Thomas Hinojosa MD LAB_1 Performing Organization Address City/[facility]/ZIP Code Phon e Number HP CONVERSION Magnesium (09/28/2006 4:00 AM MAKING MACHINE OPERATOR) athologist Signature Magnesium 1.9 1.5 - 2.4 HP CONVERSION mg/dL Specimen (Source) Anatomical Collection Method Collection Time Re ceived Time Location / / Volume Laterality 09/28/2006 4:00 AM MAKING MACHINE OPERATOR Thomas Hinojosa MD LAB_1 Performing Organization Address City/State/ZIP Code Phon e Number HP CONVERSION Bedside Glucose Monitor (09/27/2006 5:31 PM MAKING MACHINE OPERATOR) athologist Signature Bedside Blood 116 mg/dL HP CONVERSION Glucose Test Blood Glucose * No normal HP CONVERSION Screen, range Comment 1 Blood Glucose * No normal HP CONVERSION Screen, range Comment 2 Blood Glucose * No normal HP CONVERSION Screen, range Comment 3 Specimen (Source) Anatomical Collection Method Collection Time Re ceived Time Location / / Volume Laterality 09/27/2006 5:31 PM MAKING MACHINE OPERATOR Carlee Gracia MD LAB_1 Performing Organization Address City/State/ZIP Code Phon e Number HP CONVERSION MRSA Culture (09/27/2006 5:27 PM MAKING MACHINE OPERATOR) Analysis Performed At [facility] Time Signature Culture Mrsa SEE TEXT HP CONVERSION Screen Comment: Patient: SHU OLIVA Culture, MRSA Screen @ ?Collected: ??[id number] ??[id number] Source: ANTOINE ? Processed: ??[id number] ??[id number] ? ANTOINE Final Report ------ ?[id number] ??[id number] No Methicillin resistant Staph aureus is olated. @ = MRSA SCREEN Performed at ??[address] [place], [place] ?[address] Specimen (Source) Anatomical Collection Method Collection Time Re ceived Time Location / / Volume Laterality 09/27/2006 5:27 PM MAKING MACHINE OPERATOR Mary Chahal MD LAB_1 Performing Organization Address City/[facility]/ZIP Code Phon e Number HP CONVERSION XR Portable Chest 1 View (09/27/2006 4:17 PM MAKING MACHINE OPERATOR) Anatomical Region Laterality Modality Chest, Lung Other Specimen (Source) Anatomical Location Collection Method / Collectio n Time Received Time / Laterality Volume Narrative 09/27/2006 4:17 PM MAKING MACHINE OPERATOR CHEST PORTABLE: ??09/27/2006 FINDINGS: ??A PA line terminates in the right pulmonary artery and there is no pneumothorax. ??Nasogastric tube terminates subdiaphragmatically. ??The lungs are cl ear and the heart and mediastinum are unremarkable. CONCLUSION: ??Clear lungs and no pneumot horax. ??Tubes and catheters in satisfactory position. [id number] Dictating ERASMO MENSAH RADIOLOGIST Procedure Note Erasmo [...] rax. Tubes and catheters in satisfactory position. [id number] Dictating ERASMO MENSAH RADIOLOGIST Carlee Gracia MD RAD PORTABLE ECG 12 Lead Inpatient (09/27/2006 4:05 PM MAKING MACHINE OPERATOR) Specimen (Source) Anatomical Collection Method Collection Time Re ceived Time Location / / Volume Laterality 09/27/2006 4:05 PM MAKING MACHINE OPERATOR Narrative HP CONVERSION - 09/27/2006 4:05 PM MAKING MACHINE OPERATOR Normal sinus rhythm Normal ECG When compared with ECG of 28-JUL-2006 0 8:27, No significant change was found Carlee Gracia MD PN ECG ORDERABLES Performing Organization Address City/State/ZIP Code Phon e Number HP CONVERSION (ABNORMAL) Complete Blood Count-W/Diff (09/27/2006 3:46 PM MAKING MACHINE OPERATOR) [facility] Method Time Signature White Blood Cell [...] - HP CONVERSION Hemoglobin Conc 36.5 gm/dL [place] RDW 13.1 11.0 - HP CONVERSION 15.0 [...] / / Volume Laterality 09/27/2006 3:46 PM MAKING MACHINE OPERATOR Carlee Gracia MD LAB_1 Performing Organization Address City/[facility]/ZIP Code Phon e Number HP CONVERSION Electrolytes (NA, K, CL, Bicarb) (09/27/2006 3:46 PM MAKING MACHINE OPERATOR) athologist Signature Sodium 141 137 - 147 HP CONVERSION mEq/L Potassium 4.0 3.5 - 5.2 HP CONVERSION mEq/L Chloride 109 98 - 110 HP CONVERSION mEq/L Bicarbonate 24 23 - 33 HP CONVERSION mmol/L Specimen (Source) Anatomical Collection Method Collection Time Re ceived Time Location / / Volume Laterality 09/27/2006 3:46 PM MAKING MACHINE OPERATOR Carlee Gracia MD LAB_1 Performing Organization Address City/[facility]/ZIP Code Phon e Number HP CONVERSION Creatinine / GFR (09/27/2006 3:46 PM MAKING MACHINE OPERATOR) athologist Signature Creatinine 0.5 0.5 - 1.5 HP CONVERSION Serum mg/dL Specimen (Source) Anatomical Collection Method Collection Time Re ceived Time Location / / Volume Laterality 09/27/2006 3:46 PM MAKING MACHINE OPERATOR Carlee Gracia MD LAB_1 Performing Organization Address City/[facility]/ZIP Code Phon e Number HP CONVERSION Magnesium (09/27/2006 3:46 PM MAKING MACHINE OPERATOR) athologist Signature Magnesium 1.5 1.5 - 2.4 HP CONVERSION mg/dL Specimen (Source) Anatomical Collection Method Collection Time Re ceived Time Location / / Volume Laterality 09/27/2006 3:46 PM MAKING MACHINE OPERATOR Carlee Gracia MD LAB_1 Performing Organization Address [facility] Phon e Number HP CONVERSION APTT (Activated Partial Thromboplastin Time) (09/27/2006 3:46 PM MAKING MACHINE OPERATOR) [facility] gist Method Time Signature Partial 27.3 25.0 - HP CONVERSION Thromboplastin Time 38.0 sec Comment: New aPTT reagent in use effective 10/21/05 . See Last Word for current heparin dosage adjustments (new therapeutic rang e for full unfractionated heparin anticoagulation 65 ??to 95 seconds). Specimen (Source) Anatomical Collection Method Collection Time Re ceived Time Location / / Volume Laterality 09/27/2006 3:46 PM MAKING MACHINE OPERATOR Carlee Gracia MD LAB_1 Performing Organization Address [facility] Phon e Number HP CONVERSION Potassium (09/27/2006 10:00 AM MAKING MACHINE OPERATOR) athologist Signature Potassium 4.2 3.5 - 5.2 HP CONVERSION mEq/L Specimen (Source) Anatomical Collection Method Collection Time Re ceived Time Location / / Volume Laterality 09/27/2006 10:00 AM MAKING MACHINE OPERATOR Carlee Gracia MD LAB_1 Performing Organization Address [facility] Phon e Number HP CONVERSION Bedside Glucose Monitor (09/27/2006 9:57 AM MAKING MACHINE OPERATOR) athologist Signature Bedside Blood 108 mg/dL HP CONVERSION Glucose Test Blood Glucose * No normal HP CONVERSION Screen, range Comment 1 Blood Glucose * No normal HP CONVERSION Screen, range Comment 2 Blood Glucose * No normal HP CONVERSION Screen, range Comment 3 Specimen (Source) Anatomical Collection Method Collection Time Re ceived Time Location / / Volume Laterality 09/27/2006 9:57 AM MAKING MACHINE OPERATOR Carlee Gracia MD LAB_1 Performing Organization Address [facility] Phon e Number HP CONVERSION LAB TYPE, SCREEN AND CROSSMATCH (09/27/2006 9:45 AM MAKING MACHINE OPERATOR) P athologist Signature N/O BB NEG No normal HP CONVERSION ANTIBODY range SCREEN BB BLOOD TYPE O NEG No normal HP CONVERSION (BLOOD GROUP & range RH) Blood Type # 2 [id number] HP CONVERSION Units Requested Specimen (Source) Anatomical Collection Method Collection Time Re ceived Time Location / / Volume Laterality 09/27/2006 9:45 AM MAKING MACHINE OPERATOR Carlee Gracia MD LAB_1 Performing Organization Address City/State/ZIP Code Phon e Number HP CONVERSION documented in this encounter Visit Diagnoses Not on filedocumented in this encounter Care Teams Research Hydraulic Engineer Relationship Specialty Start Date End Date Unassigned, Provider PCP - General 08/25/00 12/17/[address] [place] [id number] documented as of this encounter
--- OUTSIDE RECORDS SUMMARY | 2022-05-09 08:13 | XMS_ITS | Encounter Summary ---
:1940 Author Organization [employer] Address [address] [place] [address] Care Team Providers Name Role Phone Judy Sorensen MD Primary Care Provider Reason for Visit Reason Comments Other Encounter Details Date Type Department Care Team Description 08/23/2005 Telephone [facility], Message Other [address] [place], [place] [id number] Social History Tobacco Use Types Packs/Day Years Used Date Smoking Tobacco: Never Assessed Sex Assigned at Date Recorded Not on file documented as of this encounter [facility], Message - 08/23/2005 10:54 AM CST Phone Note filed by [facility] at 01/03/11 3355 Author: [facility] Service: (none) Author Type: (none) Filed: 01/03/118 Note Time: 08/23/051053 Status: Signed Call Center Operator: Message Center Patient left voicemail. She is switching to a new pharmacy. Wants RX for Lipitor 40 mg daily, Atenolol 25 mg daily and Ranitidine 300 mg daily prn called to [facility] at [phone]. Patient would like a 90 day supply of each medication. Please call patient when this has been done. Call back phone is [phone]. Created on 23Aug2005 10:54am by YVES MANSFIELD [...] lab Acknowledged by MARKUS CORLEY on 3:15pm OUND SALES PROFESSIONAL documented in this encounter Plan of Treatment Not on filedocumented as of this encounter Visit Diagnoses Not on filedocumented in this encounter Care Teams Primary Mill Roller Relationship Specialty Start Date End Date Judy Sorensen MD PCP - General 12/18/10 05/02/18 [address] [place] [address] documented as of this encounter
--- OUTSIDE RECORDS SUMMARY | 2022-05-09 08:13 | XMS_ITS | Encounter Summary ---
:1940 Author Organization [employer] Address [address] [place] [address] Care Team Providers Name Role Phone Unassigned, Provider Primary Care Provider Unavailable Encounter Details Date Type Department Care Team Description 07/31/2006 Hospital Encounter Heart & Vascular Evon Mckinley MD [address] [place] [address] Center Procedural Ar ea Jeremy Mckinley MD [address], [place] [id number] [address] [facility] [place] [address] Social History Tobacco Use [...] CONTR ABD ARTERIOGRM NEC KEVIN HURTADO R [id number] 88.47 Provider2: Provider3: Secondary: CONTRAST ARTERIOGRAM-LEG KEVIN HURTADO R [id number] 88.48 Provider2: Provider3: CLOCK INSPECTOR documented in this encounter Plan of Treatment Not on filedocumented as of this encounter Procedures Procedure Name Priority Date/Time Associated Diagnosis Comme nts IR ANGIOGRAM Routine 07/31/2006 12:31 PM Results for this EXTREMITY BILATERAL TIME CLOCK INSPECTOR procedur e are in the results section. 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 ??There are hemodynamically signi ficant gradients across both iliac systems at rest. [id number]/pb Dictating KEVIN VALVERDE Radiologist Narrative 07/31/2006 12:31 PM TIME CLOCK INSPECTOR EXAM: ? 1. ?? Abdominal ?aortic an [...] and a 0.035 wire was advanced. A 4-Tongan sheath was placed. ??Bentson wire would not easily advance and the right iliac stenosis was crossed utilizing an angled Glidewire with a 4-Tongan Kumpe catheter . ??Measuring Omni flush catheter [...] obtained. [facility] and [...] and a 0.035 wire was advanced. A 4-Tongan sheath was placed. Bentson wi re would not easily advance and the right iliac stenosis was crossed utilizing an angled Glidewire with a 4-Tongan Kumpe catheter . Measuring Omni flush catheter [...] obtained. Patient was then [facility] the [facility] was pulled and [...] gradients across both iliac systems at rest. [id number]/pb Dictating KEVIN VALEVRDE Radiologist Jeremy Mckinley MD RAD IR documented in this encounter Visit Diagnoses Not on filedocumented in this encounter Care Teams Production Support Engineer Relationship Specialty Start Date End Date Unassigned, Provider PCP - General 08/25/00 12/17/[address] [place] [address] documented as of this encounter
--- OUTSIDE RECORDS SUMMARY | 2022-05-09 08:13 | XMS_ITS | Encounter Summary ---
:1940 Author Organization [employer] Address [address] [place] [address] Care Team Providers Name Role Phone Judy Sorensen MD Primary Care Provider Reason for Visit Reason Comments Other Encounter Details Date Type Department Care Team Description 08/16/2006 Telephone [facility] Judy Christensen MD Other [address] [place] [address] [place], [place] [address] (Wo rk) Social History Tobacco Use Types Packs/Day Years Used Date Smoking Tobacco: Never Assessed Sex Assigned at Date Recorded Not on file documented as of this encounter [facility] [place], Message - 08/16/2006 9:46 AM CST Phone Note filed by [facility] at 01/04/11 298 Author: [facility] Service: (none) Author Type: (none) Filed: 01/04/11 1137 Note Time: 08/16/06945 Status: Signed Turkey Pinner: [facility] [employer] Preliminary Dobutimine Stress ECHO results are available on this patient in LastWord. Created on 16Aug2006 9:46am by MARTA KIRAN Acknowledged by JUDY GARCÍA on 12:11pm MACHINERY ENGINE MECHANIC documented in this encounter Plan of Treatment Not on filedocumented as of this encounter Visit Diagnoses Not on filedocumented in this encounter Care Teams Director Religious Education Relationship Specialty Start Date End Date Judy Sorensen MD PCP - General 12/18/10 05/02/18 [address] [place] [address] documented as of this encounter
--- OUTSIDE RECORDS SUMMARY | 2022-05-09 08:13 | XMS_ITS | Encounter Summary ---
:1940 Author Organization [employer] Address [address] [place] [address] Care Team Providers Name Role Phone Unassigned, Provider Primary Care Provider Unavailable Encounter Details Date Type Department Care Team Description 05/24/2006 Hospital Encounter EVANGELICAL CONVERSION Judy Sorensen MD [address] [place], [place] [address] (Wo rk) Social History Tobacco Use Types [...] CDT procedure are in the results section. [facility] LOWER Routine 05/24/2006 3:08 PM Results f or this EXTREMITY PHYSIO CDT procedure a re in STUDY WITH EXERCISE the resu lts section. documented in this encounter Results [facility] Carotid Duplex Scan Bilat (05/24/2006 3:09 PM CDT) Anatomical Region Laterality Modality Vascular, Head, Neck Other Specimen (Source) Anatomical Location Collection Method / Collectio n Time Received Time / Laterality Volume Impressions 05/24/2006 3:09 PM CDT 50-69%, stenosis within the right investigator internal revenue al carotid artery. <50% stenosis within the [...] FINAL IMPRESSION 50-69%, stenosis within the right investigator internal revenue al carotid artery. <50% stenosis within the [...] on filedocumented in this encounter Care Teams Upper Caser Relationship Specialty Start Date End Date Unassigned, Provider PCP - General 08/25/00 12/17/[address] [place] [address] documented as of this encounter
--- OUTSIDE RECORDS SUMMARY | 2022-05-09 08:13 | XMS_ITS | Encounter Summary ---
:1940 Author Organization [email or web address] Address [address] [address] Care Team Providers Name Role Phone Judy Sorensen MD Primary Care Provider Encounter Details Date Type Department Care Team Description 12/02/2005 Office Visit [facility] Gwen Sorensen MD [address] [address] [place] [address] [phone] Social History Tobacco Use Types Packs/Day Years Used Date Smoking Tobacco: Never Assessed Sex Assigned at Date Recorded Not on file documented as of this encounter Last Filed Vital Signs Vital Sign Reading Time Taken Comments Blood Pressure 160/68 12/02/2005 2:07 PM BATTERY CONTAINER FINISHING HAND Pulse 80 12/02/2005 2:07 PM BATTERY CONTAINER FINISHING HAND Temperature - - Respiratory Rate - - Oxygen Saturation - - Inhaled Oxygen Concentration - - Weight 60.8 kg (133 lb 15.9 oz) 12/02/2005 2:07 PM BATTERY CONTAINER FINISHING HAND C: 60.8kg Height - - Body Mass Index - - documented in this encounter Progress Notes Judy Larsen MD - 12/02/2005 12:01 AM CST Progress Notes signed by Judy Larsen MD at 12/06/052 Author: Judy Larsen MD Service: (none) Author Type: Physician Filed: 01/07/11 1019 Note Time: 12/02/05 0001 Status: Signed Senior Contracts Administrator: Judy Larsen MD (Physician) NAME: SHU OLIVA MR: [id number] ACCT: [id number] VISIT: [id number] DICTATING CLINICIAN: JUDY LARSEN MD JOB: [id number] CLINIC PROGRESS NOTE DATE OF VISIT: 12/02/2005 SUBJECTIVE: : 1940. A 64-year-old smoker, with a past history of angiogram showing moderate degree of nonobstructive plaque, single vessel disease, comes in for followup of hypertension and refill of her current medications. She takes atenolol and Lipitor per [facility]. See [facility]. Continues to smoke, would [...] been very stable the last several years. [facility]:[id number] C: 12/03/05 13:09 DOCUMENT: [id number] ERY CONTAINER FINISHING HAND documented in this encounter Plan of Treatment Not on filedocumented as of this encounter Visit Diagnoses Not on filedocumented in this encounter Care Teams Cloth Washer Relationship Specialty Start Date End Date Judy Sorensen MD PCP - General 12/18/10 05/02/18 [address] [place] [address] documented as of this encounter
--- OUTSIDE RECORDS SUMMARY | 2022-05-09 08:13 | XMS_ITS | Encounter Summary ---
:1940 Author Organization [employer] Address [address] [place] [address] Care Team Providers Name Role Phone Judy Sorensen MD Primary Care Provider Encounter Details Date Type Department Care Team Description 06/27/2006 [facility] Carlee Feldman MD [facility] [address] [place] [address] [place] [address] [phone] Social History Tobacco Use Types Packs/Day Years [...] 1427 Note Time: 06/27/06 0001 Status: Signed Mixing Pan Tender: Carlee Gracia MD (Physician) NAME: SHU OLIVA MR: [id number] ACCT: [id number] VISIT: [id number] DICTATING CLINICIAN: CARLEE GRACIA MD JOB: [id number] LOC: 3588 CLINIC PROGRESS NOTE DATE OF [...] controlled with medications. She does have a 24-ygzl-lagu history of smoking. OBJECTIVE: VS: BP: 130/70. [...] PLAN: See Assessment. CC: JUDY LARSEN MD JMM:[id number] C: 06/28/06 15:27 DOCUMENT: [id number] documented in this encounter Plan of Treatment Not on filedocumented as of this encounter Visit Diagnoses Not on filedocumented in this encounter Care Teams Site Coordinator Relationship Specialty Start Date End Date Judy Sorensen MD PCP - General 12/18/10 05/02/18 [address] [place] [address] documented as of this encounter
--- OUTSIDE RECORDS SUMMARY | 2022-05-09 08:13 | XMS_ITS | Encounter Summary ---
:1940 Author Organization [employer] Address [address] [place] [address] Care Team Providers Name Role Phone Judy Sorensen MD Primary Care Provider Reason for Visit Reason Comments Other Encounter Details Date Type Department Care Team Description 11/22/2004 Telephone [facility], Message Other [address] [place] [address] Social History Tobacco Use Types Packs/Day Years Used Date Smoking Tobacco: Never Assessed Sex Assigned at Date Recorded Not on file documented as of this encounter Progress Notes Yves Clifton MA - 11/22/2004 1:13 PM CST Phone Note filed by Yves Clifton MA at 01/03/111705 Author: Yves Clifton MA Service: (none) Author Type: Inspector Watch Train Filed: 01/03/111705 Note Time: 11/22/04 1313 Status: Signed Hearing Aid Repairer: Yves Clifton MA (Inspector Watch Train) Pt. calling for the 3rd time. She [...] on filedocumented in this encounter Care Teams Medical Director/Head Team Physician Relationship Specialty Start Date End Date Judy Sorensen MD PCP - General 12/18/10 05/02/18 [address] [place] [address] documented as of this encounter
--- OUTSIDE RECORDS SUMMARY | 2022-05-09 08:13 | XMS_ITS | Encounter Summary ---
:1940 Author Organization [facility] Address [address] [place] [address] Care Team Providers Name Role Phone Judy Sorensen MD Primary Care Provider Encounter Details Date Type Department Care Team Description 03/10/2006 PN Conversion Only [place] [address] [place] [address] [place], [place] [address] (Wo rk) Social History Tobacco Use Types [...] Results ALT (SGPT) (03/10/2006 9:15 AM CDT) [facility] Method Time Signature Alanine 38 0 - 65 HP CONVERSION Aminotransferase U/L Specimen (Source) Anatomical Collection Method Collection Time Re ceived Time Location / / Volume Laterality 03/10/2006 9:15 AM CDT Judy Sorensen MD LAB_1 Performing Organization Address City/State/ZIP Code Phon e Number HP CONVERSION AST (03/10/2006 9:15 AM CDT) [facility] Method Time Signature Aspartate 19 0 - 45 HP CONVERSION Aminotransferase U/L Specimen (Source) Anatomical Collection Method Collection Time Re ceived Time Location / / Volume Laterality 03/10/2006 9:15 AM CDT Judy Sorensen MD LAB_1 Performing Organization Address City/[facility] Phon e Number HP CONVERSION Lipid Panel and Direct LDL(If Needed) (03/10/2006 9:15 AM CDT) [facility] Method Time Signature Cholesterol/HDL 3.0 No normal [...] Judy Sorensen MD LAB_1 Performing Organization Address City/[facility] Code Phon e Number HP CONVERSION documented in this encounter Visit Diagnoses Not on filedocumented in this encounter Care Teams Carpet Cleaner Relationship Specialty Start Date End Date Judy Sorensen MD PCP - General 12/18/10 05/02/18 [address] [place] [address] documented as of this encounter
--- OUTSIDE RECORDS SUMMARY | 2022-05-09 08:13 | XMS_ITS | Encounter Summary ---
:1940 Author Organization [facility] Address [address], [place] [address] Care Team Providers Name Role Phone Judy Sorensen MD Primary Care Provider Encounter Details Date Type Department Care Team Description 07/05/2004 Office Visit [facility] Gwen Sorensen MD [address] [address] [place] [address] [phone] Social History Tobacco Use Types Packs/Day Years Used Date Smoking Tobacco: Never Assessed Sex Assigned at Date Recorded Not on file documented as of this encounter Progress Notes Judy Larsen MD - 07/05/2004 12:01 AM CDT H&P signed by Judy Larsen MD at 09/19/04 1801 Author: Judy Larsen MD Service: (none) Author Type: Physician Filed: 01/07/11 0028 Note Time: 07/05/04 0001 Status: Signed Pharmacist'S Aide: Judy Larsen MD (Physician) NAME: SHU OLIVA MR: [id number] ACCT: [id number] VISIT: [id number] DICTATING CLINICIAN: JUDY LARSEN MD JOB: [id number] CLINIC PHYSICAL DATE OF VISIT: 07/05/2004 SUBJECTIVE: [...] pathology and exam was done at a [facility] facility and is not available in the [...] Counseled regarding cessation efforts and available assistance. [facility]:[id number] C: 07/15/04 08:45 DOCUMENT: [id number] PAINTER documented in this encounter Plan of Treatment [...] disease. Dictating KARLA PATTERSON RADIOLOGIST Procedure Note aKrla Gustafson - 11/26/2016 Impression: Normal chest. Findings: CH1 The cardiovascular structures appear nor mal. No evidence of active pulmonary disease. Dictating KARLA PATTERSON RADIOLOGIST Judy Sorensen MD RAD GD documented in this encounter Visit Diagnoses Not on filedocumented in this encounter Care Teams Business Process Lead Relationship Specialty Start Date End Date Judy Sorensen MD PCP - General 12/18/10 05/02/18 [address] [place] [address] documented as of this encounter
--- OUTSIDE RECORDS SUMMARY | 2022-05-09 08:13 | XMS_ITS | Encounter Summary ---
:1940 Author Organization [employer] Address [address] [place] [address] Care Team Providers Name Role Phone Judy Sorensen MD Primary Care Provider Encounter Details Date Type Department Care Team Description 07/12/2004 PN Conversion Only [place] [address] [place] [address] [place], [place] [address] (Wo rk) Social History Tobacco Use Types [...] Results ALT (SGPT) (07/12/2004 8:10 AM CDT) [facility] gist Method Time Signature Alanine 37 [...] on filedocumented in this encounter Care Teams College Advisor Relationship Specialty Start Date End Date Judy Sorensen MD PCP - General 12/18/10 05/02/18 [address] [place] [address] documented as of this encounter
--- OUTSIDE RECORDS SUMMARY | 2022-05-09 08:13 | XMS_ITS | Encounter Summary ---
:1940 Author Organization [employer] Address [address] [place] [address] Care Team Providers Name Role Phone Unassigned, Provider Primary Care Provider Unavailable Encounter Details Date Type Department Care Team Description 07/04/2006 Hospital Encounter EPISCOPALIAN CONVERSION Jean Claude Mckinley MD [address] [place] [address] (Wo rk) Social History Tobacco Use Types [...] right significantly wo rse than the left. 213599/pb Dictating KEVIN VALVERDE Radiologist Narrative 07/04/2006 1:24 [...] right significantly wo rse than the left. 486653/pb Dictating KEVIN VALVERDE Radiologist Jeremy Mckinley MD [...] right significantly wo rse than the left. 106909/pb Dictating KEVIN VALVERDE Radiologist Narrative 07/04/2006 1:23 [...] right significantly wo rse than the left. 490207/pb Dictating KEVIN VALVERDE Radiologist Jeremy Mckinley MD [...] right significantly wo rse than the left. 068703/pb Dictating KEVIN VALVERDE Radiologist Narrative 07/04/2006 1:19 [...] right significantly wo rse than the left. 795109/pb Dictating KEVIN VALVERDE Radiologist Jeremy Mckinley MD RAD MRI documented in this encounter Visit Diagnoses Not on filedocumented in this encounter Care Teams Leveling Machine Operator Relationship Specialty Start Date End Date Unassigned, Provider PCP - General 08/25/00 12/17/[address] [place] [address] documented as of this encounter
--- OUTSIDE RECORDS SUMMARY | 2022-05-09 08:13 | XMS_ITS | Encounter Summary ---
:1940 Author Organization [employer] Address [address] [place] [address] Care Team Providers Name Role Phone Judy Sorensen MD Primary Care Provider Encounter Details Date Type Department Care Team Description 09/25/2006 PN Conversion Only [place] [address] [place] [address] [place] [address] (Wo rk) Social History Tobacco Use Types Packs/Day Years Used Date Smoking Tobacco: Never Assessed Sex Assigned at Date Recorded Not on file documented as of this encounter Plan of Treatment Not on filedocumented as of this encounter Procedures Procedure Name Priority Date/Time Associated Comments Diagnosis ELECTROLYTES (NA, K, Routine 09/25/2006 11:40 Res ults for this CL, BICARB) AM METAL FABRICATOR WELDER procedure are i n the results section. HEMOGLOBIN, BLOOD Routine 09/25/2006 11:40 Result s for this AM METAL FABRICATOR WELDER procedure are i n the results section. MAGNESIUM Routine 09/25/2006 11:40 Results for this AM METAL FABRICATOR WELDER procedure are i n the results section. CALCIUM Routine 09/25/2006 11:40 Results for this AM METAL FABRICATOR WELDER procedure are i n the results section. documented in this encounter Results Calcium (09/25/2006 11:40 AM METAL FABRICATOR WELDER) P athologist Signature Calcium 8.7 8.5 - 10.5 HP CONVERSION mg/dL Specimen (Source) Anatomical Collection Method Collection Time Re ceived Time Location / / Volume Laterality 09/25/2006 11:40 AM METAL FABRICATOR WELDER Judy Sorensen MD LAB_1 Performing Organization Address City/State/ZIP Code Phon e Number HP CONVERSION Magnesium (09/25/2006 11:40 AM METAL FABRICATOR WELDER) athologist Signature Magnesium 1.9 1.5 - 2.4 HP CONVERSION mg/dL Specimen (Source) Anatomical Collection Method Collection Time Re ceived Time Location / / Volume Laterality 09/25/2006 11:40 AM METAL FABRICATOR WELDER Judy Sorensen MD LAB_1 Performing Organization Address City/[facility] Code Phon e Number HP CONVERSION Electrolytes (NA, K, CL, Bicarb) (09/25/2006 11:40 AM METAL FABRICATOR WELDER) athologist Signature Sodium 143 137 - 147 HP CONVERSION mEq/L Potassium 4.8 3.5 - 5.2 HP CONVERSION mEq/L Chloride 103 98 - 110 HP CONVERSION mEq/L Bicarbonate 28 23 - 33 HP CONVERSION mmol/L Specimen (Source) Anatomical Collection Method Collection Time Re ceived Time Location / / Volume Laterality 09/25/2006 11:40 AM METAL FABRICATOR WELDER Judy Sorensen MD LAB_1 Performing Organization Address City/[facility] Phon e Number HP CONVERSION Hemoglobin, Blood (09/25/2006 11:40 AM METAL FABRICATOR WELDER) athologist Signature Hemoglobin 13.7 11.8 - 15.5 HP CONVERSION gm/dL Specimen (Source) Anatomical Collection Method Collection Time Re ceived Time Location / / Volume Laterality 09/25/2006 11:40 AM METAL FABRICATOR WELDER Judy Sorensen MD LAB_1 Performing Organization Address City/[facility]/ZIP [facility] Phon e Number HP CONVERSION documented in this encounter Visit Diagnoses Not on filedocumented in this encounter Care Teams House Cleaner Relationship Specialty Start Date End Date Judy Sorensen MD PCP - General 12/18/10 05/02/18 [address] [place] [address] documented as of this encounter
--- OUTSIDE RECORDS SUMMARY | 2022-05-09 08:13 | XMS_ITS | Encounter Summary ---
:1940 Author Organization [employer] Address [address], [place] [address] Care Team Providers Name Role Phone Judy Sorensen MD Primary Care Provider Encounter Details Date Type Department Care Team Description 07/20/2005 Nursing Visit [facility] [place] [address] [place] [address] [place] [phone] [address] Social History Tobacco Use Types Packs/Day Years Used Date Smoking Tobacco: Never Assessed Sex Assigned at Date Recorded Not on file documented as of this encounter Plan of Treatment Not on filedocumented as of this encounter Visit Diagnoses Not on filedocumented in this encounter Care Teams Corporate Quality Manager Relationship Specialty Start Date End Date Judy Sorensen MD PCP - General 12/18/10 05/02/18 [address] [place], [place] [address] documented as of this encounter
--- OUTSIDE RECORDS SUMMARY | 2022-05-09 08:13 | XMS_ITS | Encounter Summary ---
:1940 Author Organization [employer] Address [address] [place] [address] Care Team Providers Name Role Phone Judy Sorensen MD Primary Care Provider Encounter Details Date Type Department Care Team Description 07/20/2005 PN Conversion Only [facility] [address] [place] [address] Social History Tobacco Use Types Packs/Day Years Used Date Smoking Tobacco: Never Assessed Sex Assigned at Date Recorded Not on file documented as of this encounter Plan of Treatment Not on filedocumented as of this encounter Procedures Procedure Name Priority Date/Time Associated Diagnosis Comme nts MM MAMMOGRAM Routine 07/20/2005 8:43 AM Results f or this SCREENING W CAD GILL NET STRINGER procedure ar e in the results section. documented in this encounter Results MM Mammogram Screening W CAD (07/20/2005 8:43 AM GILL NET STRINGER) Anatomical Region Laterality Modality Breast Bilateral Mammography Specimen (Source) Anatomical Location Collection Method / Collectio n Time Received Time / Laterality Volume Impressions 07/25/2005 11:43 AM GILL NET STRINGER : BILATERAL BREASTS - Category 1 Negative, no evidence of malignancy. Nor mal interval follow-up is recommended in 12 months. OVERALL ASSESSMENT - NEGATIVE END OF IMPRESSION Dictating RAFI LEVI RADIOLOGIST Narrative 07/25/2005 11:43 AM GILL NET STRINGER Comparison is made to films from 07/12/2004 [...] on filedocumented in this encounter Care Teams Irradiated Fuel Handler Relationship Specialty Start Date End Date Juyd Sorensen MD PCP - General 12/18/10 05/02/18 [address] [place], [place] [address] documented as of this encounter
--- OUTSIDE RECORDS SUMMARY | 2022-05-09 08:13 | XMS_ITS | Encounter Summary ---
:1940 Author Organization [employer] Address [address] [place] [address] Care Team Providers Name Role Phone Judy Sorensen MD Primary Care Provider Encounter Details Date Type Department Care Team Description 07/28/2006 PN Conversion Only [place] [facility] N Jeremy Mckinley, [address] [place] [address] [address] [place] [address] (Wo rk) Social History Tobacco Use Types Packs/Day Years Used Date Smoking Tobacco: Never Assessed Sex Assigned at Date Recorded Not on file documented as of this encounter Plan of Treatment Not on filedocumented as of this encounter Procedures Procedure Name Priority Date/Time Associated Comments Diagnosis ELECTROLYTES (NA, K, Routine 07/28/2006 8:19 AM R esults for this CL, BICARB) FREIGHT CAR REPAIRER procedure are i n the results section. CREATININE / GFR Routine 07/28/2006 8:19 AM Resul ts for this FREIGHT CAR REPAIRER procedure are i n the results section. COMPLETE BLOOD Routine 07/28/2006 8:19 AM Results for this COUNT-W/DIFF FREIGHT CAR REPAIRER procedure are i n the results section. APTT (ACTIVATED PARTIAL Routine 07/28/2006 8:19 AM Results for this THROMBOPLASTIN TIME FREIGHT CAR REPAIRER procedur e are in the results section. BUN Routine 07/28/2006 8:19 AM Results f or this FREIGHT CAR REPAIRER procedure are i n the results section. documented in this encounter Results (ABNORMAL) Complete Blood Count-W/Diff (07/28/2006 8:19 AM FREIGHT CAR REPAIRER) Patholo gist Method Time Signature White Blood [...] - HP CONVERSION Hemoglobin Conc 36.5 gm/dL [place] RDW 13.2 11.0 - HP CONVERSION 15.0 [...] / / Volume Laterality 07/28/2006 8:19 AM FREIGHT CAR REPAIRER Jeremy Mckinley MD LAB_1 Performing Organization Address City/State/ZIP Code Phon e Number HP CONVERSION APTT (Activated Partial Thromboplastin Time) (07/28/2006 8:19 AM FREIGHT CAR REPAIRER) [facility] Method Time Signature Partial 26.1 25.0 - HP CONVERSION Thromboplastin Time 38.0 sec Comment: New aPTT reagent in use effective 10/21/05 . See Last Word for current heparin dosage adjustments (new therapeutic rang e for full unfractionated heparin anticoagulation 65 ??to 95 seconds). Specimen (Source) Anatomical Collection Method Collection Time Re ceived Time Location / / Volume Laterality 07/28/2006 8:19 AM FREIGHT CAR REPAIRER Jeremy Mckinley MD LAB_1 Performing Organization Address City/State/ZIP Code Phon e Number HP CONVERSION BUN (07/28/2006 8:19 AM FREIGHT CAR REPAIRER) athologist Signature Blood Urea 15 5 - 26 HP CONVERSION Nitrogen mg/dL Specimen (Source) Anatomical Collection Method Collection Time Re ceived Time Location / / Volume Laterality 07/28/2006 8:19 AM FREIGHT CAR REPAIRER Jeremy Mckinley MD LAB_1 Performing Organization Address City/State/ZIP Code Phon e Number HP CONVERSION Creatinine / GFR (07/28/2006 8:19 AM FREIGHT CAR REPAIRER) athologist Signature Creatinine 0.7 0.5 - 1.5 HP CONVERSION Serum mg/dL Specimen (Source) Anatomical Collection Method Collection Time Re ceived Time Location / / Volume Laterality 07/28/2006 8:19 AM FREIGHT CAR REPAIRER Jeremy Mckinley MD LAB_1 Performing Organization Address City/State/ZIP Code Phon e Number HP CONVERSION Electrolytes (NA, K, CL, Bicarb) (07/28/2006 8:19 AM FREIGHT CAR REPAIRER) athologist Signature Sodium 140 137 - 147 HP CONVERSION meq/L Potassium 4.3 3.5 - 5.2 HP CONVERSION meq/L Chloride 102 98 - 110 HP CONVERSION meq/L Bicarbonate 30 23 - 33 HP CONVERSION mmol/L Specimen (Source) Anatomical Collection Method Collection Time Re ceived Time Location / / Volume Laterality 07/28/2006 8:19 AM FREIGHT CAR REPAIRER Jeremy Mckinley MD LAB_1 Performing Organization Address City/[facility] Phon e Number HP CONVERSION documented in this encounter Visit Diagnoses Not on filedocumented in this encounter Care Teams Veneer Manufacturer Relationship Specialty Start Date End Date Judy Sorensen MD PCP - General 12/18/10 05/02/18 [address] [place] [address] documented as of this encounter
--- OUTSIDE RECORDS SUMMARY | 2022-05-09 08:13 | XMS_ITS | Encounter Summary ---
:1940 Author Organization [employer] Address [address] [place] [address] Care Team Providers Name Role Phone Judy Sorensen MD Primary Care Provider Encounter Details Date Type Department Care Team Description 06/25/2005 Office Visit [facility] Aleah Oshea PA-C [address] [place] [address] [place], [place] [address] (Wo rk) Social History Tobacco Use Types [...] signed by Aleah Oshea PA-C at 07/07/05 7971 Author: Aleah Oshea PA-C Service: (none) Author Type: Physician Dermatologist Filed: 01/07/11 0703 Note Time: 06/25/05 0001 Status: Signed Principal Cyber Engineer: Aleah Oshea PA-C (Physician Dermatologist) NAME: SHU OLIVA MR: [id number] ACCT: [id number] VISIT: [id number] DICTATING CLINICIAN: ALEAH OSHEA PA-C JOB: [id number] CLINIC PROGRESS NOTE DATE OF VISIT: 06/25/2005 [...] needed if questions develop or problems persist. [id number] C: 06/25/05 19:48 DOCUMENT: [id number] documented in this encounter Plan of Treatment [...] on filedocumented in this encounter Care Teams Installation Manager Relationship Specialty Start Date End Date Judy Sorensen MD PCP - General 12/18/10 05/02/18 [address] [place] [address] documented as of this encounter
--- OUTSIDE RECORDS SUMMARY | 2022-05-09 08:13 | XMS_ITS | Encounter Summary ---
:1940 Author Organization Pending sale to [facility] Address [address] [place] [address] Care Team Providers Name Role Phone Judy Sorensen MD Primary Care Provider Encounter Details Date Type Department Care Team Description 11/02/2005 PN Conversion Only [place] [address] [place] [address] [place], [place] [address] (Wo rk) Social History Tobacco Use Types Packs/Day Years Used Date Smoking Tobacco: Never Assessed Sex Assigned at Date Recorded Not on file documented as of this encounter Plan of Treatment Not on filedocumented as of this encounter Procedures Procedure Name Priority Date/Time Associated Comments Diagnosis LIPID PANEL AND Routine 11/02/2005 8:19 AM Result s for this DIRECT LDL(IF ANIMAL EVISCERATOR procedure are in NEEDED) the results section. CREATININE / GFR Routine 11/02/2005 8:19 AM Resul ts for this ANIMAL EVISCERATOR procedure are i n the results section. AST Routine 11/02/2005 8:19 AM Results f or this ANIMAL EVISCERATOR procedure are i n the results section. documented in this encounter Results AST (11/02/2005 8:19 AM ANIMAL EVISCERATOR) [facility] Method Time Signature Aspartate 21 0 - 45 HP CONVERSION Aminotransferase U/L Specimen (Source) Anatomical Collection Method Collection Time Re ceived Time Location / / Volume Laterality 11/02/2005 8:19 AM ANIMAL EVISCERATOR Judy Sorensen MD LAB_1 Performing Organization Address City/State/ZIP Code Phon e Number HP CONVERSION Creatinine / GFR (11/02/2005 8:19 AM ANIMAL EVISCERATOR) P athologist Signature Creatinine 0.8 0.5 - 1.5 HP CONVERSION Serum mg/dL Specimen (Source) Anatomical Collection Method Collection Time Re ceived Time Location / / Volume Laterality 11/02/2005 8:19 AM ANIMAL EVISCERATOR Judy Sorensen MD LAB_1 Performing Organization Address City/State/ZIP Code Phon e Number HP CONVERSION (ABNORMAL) Lipid Panel and Direct LDL(If Needed) (11/02/2005 8:19 AM ANIMAL EVISCERATOR) Patholo gist Method Time Signature Cholesterol/HDL 2.8 [...] / / Volume Laterality 11/02/2005 8:19 AM ANIMAL EVISCERATOR Judy Sorensen MD LAB_1 Performing Organization Address City/State/ZIP Code Phon e Number HP CONVERSION documented in this encounter Visit Diagnoses Not on filedocumented in this encounter Care Teams Tax Compliance Representative Relationship Specialty Start Date End Date Judy Sorensen MD PCP - General 12/18/10 05/02/18 [address] [place] [address] documented as of this encounter
--- OUTSIDE RECORDS SUMMARY | 2022-05-09 08:13 | XMS_ITS | Encounter Summary ---
:1940 Author Organization [employer] Address [address] [place] [address] Care Team Providers Name Role Phone Unassigned, Provider Primary Care Provider Unavailable Encounter Details Date Type Department Care Team Description 09/29/2004 Hospital Encounter [facility] [address] Julius Mcneil MD [address] [place], [place] [id number] Endoscopy Julius Andersen MD [address] [place], [place] [id number] [facility] [place] [address] Social History Tobacco Use Types [...] 0158 Note Time: 09/29/04 1445 Status: Signed Nursery School Teacher: Julius Andersen MD (Physician) Patient Name: Shu [...] oxygen saturations were monitored continuously. The colonoscope [id number] was introduced through the anus and advanced [...] or nsaids for two weeks. CPT4 Code(s): 84023, Colonoscopy, flexible, proximal to splenic flexure; with removal of tumor(s), polyp(s), or other lesion(s) by snare technique 03789, 51, Colonoscopy, flexible, proximal to splenic flexure; with biopsy, single or multiple ICD9 Code(s): 211.3, BENIGN NEOPLASM OF COLON V12.72, PERSONAL HISTORY OF COLONIC POLYPS The codes documented in this report are preliminary and upon guest experience captain review may be revised to meet current compliance requirements. Julius Andersen MD Signed Date: 09/29/2004 3:26 PM This document has been electronically signed. Note initiated on 09/29/2004 2:45 PM AND BEVERAGE ATTENDANT documented in this encounter Plan of Treatment Not on filedocumented as of this encounter Procedures Procedure Name Priority Date/Time Associated Diagnosis Comme nts SURGICAL PATH, PARK Routine 09/29/2004 4:16 PM Re sults for this NICOLLET FOOD AND BEVERAGE ATTENDANT procedure are i n the results section. documented in this encounter Results Pathology Report (09/29/2004 4:16 PM FOOD AND BEVERAGE ATTENDANT) [facility] gist Method Time Signature Surgical SEE TEXT No normal HP CONVERSION Pathology range Comment: Patient: SHU OLIVA ?S URGICAL PATHOLOGY REPORT Pathology # ??[id number] ?Date Obtained: ? Date Received: DIAGNOSIS: A) ??Transverse colon polyp, biopsy- ?1. ??Adenomatous polyp. ?2. ??No evidence of severe dysplas ia or invasive malignancy. B) ??Sigmoid colon polyp, biopsies- ?1. ??Hyperplastic polyp. ?2. ??No evidence of dysplasia or m alignancy. ?Jose Miller MD ?(electronic signature) MDM/MDM/dke Date of Report: 09/30/04 Pathology # ??[id number] ?Date Obtained: ? Date Received: ORGAN/TISSUE SITE: [...] / / Volume Laterality 09/29/2004 4:16 PM FOOD AND BEVERAGE ATTENDANT Juluis Andersen MD LAB_1 Performing Organization Address City/State/ZIP Code Phon e Number HP CONVERSION documented in this encounter Visit Diagnoses Not on filedocumented in this encounter Care Teams Patient Relations Coordinator Relationship Specialty Start Date End Date Unassigned, Provider PCP - General 08/25/00 12/17/[address] [place] [address] documented as of this encounter
--- OUTSIDE RECORDS SUMMARY | 2022-05-09 08:13 | XMS_ITS | Encounter Summary ---
:1940 Author Organization [employer] Address [address] [place] [address] Care Team Providers Name Role Phone Judy Sorensen MD Primary Care Provider Encounter Details Date Type Department Care Team Description 08/15/2006 PN Conversion Only CONVERSION CONVERSION Sen, So MD kenzie [address] [place], [place] [address] (Wo rk) Social History Tobacco Use Types Packs/Day Years Used Date Smoking Tobacco: Never Assessed Sex Assigned at Date Recorded Not on file documented as of this encounter Plan of Treatment Not on filedocumented as of this encounter Visit Diagnoses Not on filedocumented in this encounter Care Teams Front Desk Agent Relationship Specialty Start Date End Date Judy Sorensen MD PCP - General 12/18/10 05/02/18 [address] [place], [place] [address] documented as of this encounter
--- OUTSIDE RECORDS SUMMARY | 2022-05-09 08:13 | XMS_ITS | Encounter Summary ---
:1940 Author Organization [employer] Address [address] [place] [address] Care Team Providers Name Role Phone Judy Sorensen MD Primary Care Provider Encounter Details Date Type Department Care Team Description 07/12/2004 PN Conversion Only [facility] [address] [place] [address] Social History Tobacco Use Types Packs/Day Years [...] ANTON GONZALEZ Physician Judy Sorensen MD RAD [facility] documented in this encounter Visit Diagnoses Not on filedocumented in this encounter Care Teams Electric Refrigerator Servicer Relationship Specialty Start Date End Date Judy Sorensen MD PCP - General 12/18/10 05/02/18 [address] [place], [place] [address] documented as of this encounter
--- OUTSIDE RECORDS SUMMARY | 2022-05-09 08:13 | XMS_ITS | Encounter Summary ---
:1940 Author Organization [facility] Address [address] [place] [address] Care Team Providers Name Role Phone Judy Sorensen MD Primary Care Provider Encounter Details Date Type Department Care Team Description 09/24/2004 PN Conversion Only B[facility] CONVERSION Social History Tobacco Use Types Packs/Day Years Used Date Smoking Tobacco: Never Assessed Sex Assigned at Date Recorded Not on file documented as of this encounter Plan of Treatment Not on filedocumented as of this encounter Visit Diagnoses Not on filedocumented in this encounter Care Teams Firer Locomotive Relationship Specialty Start Date End Date Judy Sorensen MD PCP - General 12/18/10 05/02/18 [address] [place] [address] documented as of this encounter
--- OUTSIDE RECORDS SUMMARY | 2022-05-09 08:13 | XMS_ITS | Encounter Summary ---
:1940 Author Organization [employer] Address [address] [place] [address] Care Team Providers Name Role Phone Judy Sorensen MD Primary Care Provider Reason for Visit Reason Comments Other Encounter Details Date Type Department Care Team Description 08/16/2006 Telephone [facility] Carlee Feldman MD Other [facility] [address] [place] [address] [place], [place] [address] [phone] Social History Tobacco Use Types Packs/Day Years Used Date Smoking Tobacco: Never Assessed Sex Assigned at Date Recorded Not on file documented as of this encounter Progress Notes [employer], Message - 08/16/2006 9:47 AM CST Phone Note filed by [employer] at 01/04/11 422 Author: [employer] Service: (none) Author Type: (none) Filed: 01/04/11 1137 Note Time: 08/16/06946 Status: Signed Network Security Administrator: [employer] Preliminary Dobutimine Stress ECHO results are available on this patient in LastWord. Created on 16Aug2006 9:47am by MARTA KIRAN Acknowledged by CARLEE GRACIA on 11:02am GN/ANIMATION INSTRUCTOR documented in this encounter Plan of Treatment Not on filedocumented as of this encounter Visit Diagnoses Not on filedocumented in this encounter Care Teams Driftman Relationship Specialty Start Date End Date Judy Sorensen MD PCP - General 12/18/10 05/02/18 [address] [place] [address] documented as of this encounter
--- OUTSIDE RECORDS SUMMARY | 2022-05-09 08:13 | XMS_ITS | Encounter Summary ---
:1940 Author Organization [employer] Address [address], [place] [address] Care Team Providers Name Role Phone Judy Sorensen MD Primary Care Provider Encounter Details Date Type Department Care Team Description 09/25/2006 Office Visit [facility] Gwen Sorensen MD [address] [address] [place] [address] [phone] Social History Tobacco Use Types Packs/Day Years Used Date Smoking Tobacco: Never Assessed Sex Assigned at Date Recorded Not on file documented as of this encounter Last Filed Vital Signs Vital Sign Reading Time Taken Comments Blood Pressure 130/80 09/25/2006 10:30 AM FLOOR ASSEMBLER Pulse 62 09/25/2006 10:30 AM FLOOR ASSEMBLER Temperature 37.1 ??C (98.8 ??F) 09/25/2006 10:30 AM FLOOR ASSEMBLER C: 3 7.1 C Respiratory Rate - - Oxygen Saturation - - Inhaled Oxygen Concentration - - Weight 63 kg (138 lb 15.7 oz) 09/25/2006 10:30 AM FLOOR ASSEMBLER C : 63.0kg Height - - Body Mass Index - - documented in this encounter Progress Notes Judy Larsen MD - 09/25/2006 12:01 AM CST Progress Notes signed by Judy Larsen MD at 10/10/06 8166 Author: Judy Larsen MD Service: (none) Author Type: Physician Filed: 01/07/11 1614 Note Time: 09/25/06 0001 Status: Signed Quality Internship: Judy Larsen MD (Physician) NAME: SHU OLIVA MR#: [id number] ACCT: [id number] VISIT: [id number] DICTATING CLINICIAN: JUDY LARSEN MD JOB: [id number] LOC: 502 CLINIC PROGRESS NOTE DATE OF [...] medication use pre and postoperatively with patient. [facility]:[id number] C: 10/09/06 08:37 DOCUMENT: [id number] R ASSEMBLER documented in this encounter Plan of Treatment Not on filedocumented as of this encounter Visit Diagnoses Not on filedocumented in this encounter Care Teams Box Toe Cementer Relationship Specialty Start Date End Date Judy Sorensen MD PCP - General 12/18/10 05/02/18 [address] [place] [address] documented as of this encounter
--- OUTSIDE RECORDS SUMMARY | 2022-05-09 08:13 | XMS_ITS | Encounter Summary ---
:1940 Author Organization [employer] Address [address] [place] [address] Care Team Providers Name Role Phone Judy Sorensen MD Primary Care Provider Encounter Details Date Type Department Care Team Description 09/29/2004 PN Conversion Only CONV GASTROENTEROLOG Y Julius Andersen MD [id number] [facility] [address] [place] [id number] (Wo rk) Social History Tobacco Use Types Packs/Day Years Used Date Smoking Tobacco: Never Assessed Sex Assigned at Date Recorded Not on file documented as of this encounter Plan of Treatment Not on filedocumented as of this encounter Visit Diagnoses Not on filedocumented in this encounter Care Teams Licensed Clinical Social Worker Relationship Specialty Start Date End Date Judy Sorensen MD PCP - General 12/18/10 05/02/18 [address] [place], [place] [address] documented as of this encounter
--- OUTSIDE RECORDS SUMMARY | 2022-05-09 08:13 | XMS_ITS | Encounter Summary ---
:1940 Author Organization [facility] Address [address] [place] [address] Care Team Providers Name Role Phone Judy Sorensen MD Primary Care Provider Encounter Details Date Type Department Care Team Description 09/27/2006 PN Conversion Only OTHER CONVERSION [address] [place] [address] Social History Tobacco Use Types Packs/Day Years Used Date Smoking Tobacco: Never Assessed Sex Assigned at Date Recorded Not on file documented as of this encounter Plan of Treatment Not on filedocumented as of this encounter Visit Diagnoses Not on filedocumented in this encounter Care Teams Strategic Intelligence Officer Relationship Specialty Start Date End Date Judy Sorensen MD PCP - General 12/18/10 05/02/18 [address] [place], [place] [address] documented as of this encounter
--- OUTSIDE RECORDS SUMMARY | 2022-05-09 08:13 | XMS_ITS | Encounter Summary ---
:1940 Author Organization [facility] Address [address] [place] [address] Care Team Providers Name Role Phone Judy Sorensen MD Primary Care Provider Encounter Details Date Type Department Care Team Description 07/28/2006 PN Conversion Only [facility] [place] [address] [place] [address] Social History Tobacco Use Types Packs/Day Years Used Date Smoking Tobacco: Never Assessed Sex Assigned at Date Recorded Not on file documented as of this encounter Plan of Treatment Not on filedocumented as of this encounter Procedures Procedure Name Priority Date/Time Associated Diagnosis Comme nts ECG 12 LEAD CLINIC Routine 07/28/2006 8:27 AM Res ults for this IT CONSULTING DIRECTOR procedure are i n the results section. documented in this encounter Results ECG 12 lead clinic (07/28/2006 8:27 AM IT CONSULTING DIRECTOR) Specimen (Source) Anatomical Collection Method Collection Time Re ceived Time Location / / Volume Laterality 07/28/2006 8:27 AM IT CONSULTING DIRECTOR Narrative HP CONVERSION - 07/28/2006 8:27 AM IT CONSULTING DIRECTOR Sinus bradycardia Otherwise normal ECG When compared with ECG of 01-JAN-1999 0 7:47, No significant change was found Imr Conversion PN ECG ORDERABLES Performing Organization Address City/State/ZIP Code Phon e Number HP CONVERSION documented in this encounter Visit Diagnoses Not on filedocumented in this encounter Care Teams Jack [employer] Trades Relationship Specialty Start Date End Date Judy Sorensen MD PCP - General 12/18/10 05/02/18 [address] [place], [place] [address] documented as of this encounter
--- OUTSIDE RECORDS SUMMARY | 2022-05-09 08:13 | XMS_ITS | Encounter Summary ---
:1940 Author Organization [employer] Address [address] [place] [address] Care Team Providers Name Role Phone Judy Sorensen MD Primary Care Provider Encounter Details Date Type Department Care Team Description 07/05/2004 PN Conversion Only [facility] [place] [address] [place] [address] [place], [place] [address] (Wo rk) Social History Tobacco Use Types [...] Results Pap Smear (07/05/2004 8:31 AM CDT) [facility] Method Time Signature PAP Smear SEE TEXT No normal HP CONVERSION Liquid Based range Comment: Patient: SHU OLIVA ? CERVICAL CYTOLOGY REPORT Pathology # ??[id number] ?Date Obtained: ? Date Received: CYTOLOGIC IMPRESSION: [...] on filedocumented in this encounter Care Teams C T Tech Relationship Specialty Start Date End Date Judy Sorensen MD PCP - General 12/18/10 05/02/18 [address] [place] [address] documented as of this encounter
--- OUTSIDE RECORDS SUMMARY | 2022-05-09 08:13 | XMS_ITS | Encounter Summary ---
:1940 Author Organization [employer] Address [address] [place] [address] Care Team Providers Name Role Phone Judy Sorensen MD Primary Care Provider Reason for Visit Reason Comments Other Encounter Details Date Type Department Care Team Description 05/18/2006 Telephone [facility], Message Other [address] [place] [address] Social History Tobacco Use Types Packs/Day Years Used Date Smoking Tobacco: Never Assessed Sex Assigned at Date Recorded Not on file documented as of this encounter [facility], Message - 05/18/2006 8:53 AM CDT Phone Note filed by [employer] at 01/04/11810 Author: [employer] Service: (none) Author Type: (none) Filed: 01/04/11810 Note Time: 05/18/06852 Status: Signed Railroad Auditor: [email or web address] MESSAGE TO CARE TEAM NAME OF CALLER:Sol NAME OF CLINICIAN:Suzie MESSAGE:Please have someone call this patient regarding her appts at [facility] on May 24. She would like to verify these appts set. PHARMACY NAME: PHARMACY PHONE #: CALL BACK PHONE #: [phone] BEST TIME TO CALL BACK: Anytime Is it OK to leave detailed message on voicemail? Yes Created on 18May2006 8:53am by HAKEEM VERDUGO On 18May2006 3:08pm JUDY GARCÍA wrote: Presume these are the vascular tests. Please call. Acknowledged by JUDY GARCÍA on 3:08pm On 19May2006 9:52am MAKRUS CORLEY wrote: spoke to pt Acknowledged by MARKUS CORLEY on 9:52am DENTIAL MANAGER documented in this encounter Plan of Treatment Not on filedocumented as of this encounter Visit Diagnoses Not on filedocumented in this encounter Care Teams Control Panel Operator Relationship Specialty Start Date End Date Judy Sorensen MD PCP - General 12/18/10 05/02/18 [address] [place] [address] documented as of this encounter
--- OUTSIDE RECORDS SUMMARY | 2022-05-09 08:13 | XMS_ITS | Encounter Summary ---
:1940 Author Organization [employer] Address [address] [place] [address] Care Team Providers Name Role Phone Judy Sorensen MD Primary Care Provider Encounter Details Date Type Department Care Team Description 08/15/2006 Office Visit [facility] Carlee Feldman MD [facility] [address] [place] [address] [place] [address] [phone] Social History Tobacco Use Types Packs/Day Years [...] 1524 Note Time: 08/15/06 0001 Status: Signed Social Media Marketing Manager: Carlee Gracia MD (Physician) NAME: SHU OLIVA MR#: [id number] ACCT: [id number] VISIT: [id number] DICTATING CLINICIAN: CARLEE GRACIA MD JOB: [id number] LOC: 3588 CLINIC PROGRESS NOTE DATE OF [...] six to eight weeks. OBJECTIVE: ASSESSMENT: PLAN: JMM:[id number] C: 08/15/06 14:33 DOCUMENT: [id number] OGRINDER OPERATOR documented in this encounter Plan of Treatment Not on filedocumented as of this encounter Visit Diagnoses Not on filedocumented in this encounter Care Teams Customer Service Rep Relationship Specialty Start Date End Date Judy Sorensen MD PCP - General 12/18/10 05/02/18 [address] [place] [address] documented as of this encounter
--- OUTSIDE RECORDS SUMMARY | 2022-05-09 08:13 | XMS_ITS | Encounter Summary ---
:1940 Author Organization [employer] Address [address] [place] [address] Care Team Providers Name Role Phone Judy Sorensen MD Primary Care Provider Encounter Details Date Type Department Care Team Description 09/21/2006 Office Visit [facility] Carlee Feldman MD [facility] [address] [place] [address] [place] [address] [phone] Social History Tobacco Use Types Packs/Day Years [...] 1608 Note Time: 09/21/06 0001 Status: Signed Pre Sales Technical Consultant: Carlee Gracia MD (Physician) NAME: SHU OLIVA MR#: [id number] ACCT: [id number] VISIT: [id number] DICTATING CLINICIAN: CARLEE GRACIA MD JOB: [id number] LOC: 3588 CLINIC PROGRESS NOTE DATE OF [...] surgery next week. CC: JUDY GARCÍA MD JMM:[id number] C: 09/21/06 12:25 DOCUMENT: [id number] J2EE ARCHITECT documented in this encounter Plan of Treatment Not on filedocumented as of this encounter Visit Diagnoses Not on filedocumented in this encounter Care Teams Budget Technician Relationship Specialty Start Date End Date Judy Sorensen MD PCP - General 12/18/10 05/02/18 [address] [place] [address] documented as of this encounter
--- OUTSIDE RECORDS SUMMARY | 2022-05-09 08:13 | XMS_ITS | Encounter Summary ---
:1940 Author Organization [employer] Address [address] [place] [address] Care Team Providers Name Role Phone Judy Sorensen MD Primary Care Provider Encounter Details Date Type Department Care Team Description 08/01/2006 Office Visit [facility] Carlee Feldman MD [facility] [address] [place] [address] [place] [address] [phone] Social History Tobacco Use Types Packs/Day Years Used Date Smoking Tobacco: Never Assessed Sex Assigned at Date Recorded Not on file documented as of this encounter Last Filed Vital Signs Vital Sign Reading Time Taken Comments Blood Pressure 162/78 08/01/2006 10:26 AM ANNEALER Pulse - - Temperature - - Respiratory [...] 1508 Note Time: 08/01/06 0001 Status: Signed Acid Cutter: Carlee Gracia MD (Physician) NAME: SHU OLIVA MR#: [id number] ACCT: [id number] VISIT: [id number] DICTATING CLINICIAN: CARLEE GRACIA MD JOB: [id number] LOC: 3588 CLINIC PROGRESS NOTE DATE OF VISIT: 08/01/2006 ADDENDUM: Total time is 15 minutes, counseling time 15 minutes. SUBJECTIVE: OBJECTIVE: ASSESSMENT: PLAN: Ángel:[id number] C: 08/02/06 08:12 DOCUMENT: [id number] ALER Carlee Gracia MD - 08/01/2006 12:01 AM CST Progress Notes signed by Carlee Gracia MD at 08/05/06 0845 Author: Carlee Gracia MD Service: (none) Author Type: Physician Filed: 01/07/11 1508 Note Time: 08/01/06 0001 Status: Signed Acid Cutter: Carlee Gracia MD (Physician) NAME: SHU OLIVA MR#: [id number] ACCT: [id number] VISIT: [id number] DICTATING CLINICIAN: CARLEE GRACIA MD JOB: [id number] LOC: 3588 CLINIC PROGRESS NOTE DATE OF [...] to my office. CC: JUDY GARCÍA MD JMM:[id number] C: 08/02/06 07:52 DOCUMENT: [id number] ALER documented in this encounter Plan of Treatment Not on filedocumented as of this encounter Visit Diagnoses Not on filedocumented in this encounter Care Teams Community Fundraiser Relationship Specialty Start Date End Date Judy Sorensen MD PCP - General 12/18/10 05/02/18 [address] [place] [address] documented as of this encounter
--- OUTSIDE RECORDS SUMMARY | 2022-05-09 08:13 | XMS_ITS | Encounter Summary ---
:1940 Author Organization [facility] Address [address] [place] [address] Care Team Providers Name Role Phone Judy Sorensen MD Primary Care Provider Encounter Details Date Type Department Care Team Description 08/29/2006 Office Visit [facility] [place] [address] [place] [address] [place] [address] (Wo rk) Social History Tobacco Use Types Packs/Day Years Used Date Smoking Tobacco: Never Assessed Sex Assigned at Date Recorded Not on file documented as of this encounter Last Filed Vital Signs Vital Sign Reading Time Taken Comments Blood Pressure 130/70 08/29/2006 11:56 AM [employer] Pulse 60 08/29/2006 11:56 AM [employer] Temperature 37.1 ??C (98.8 ??F) 08/29/2006 11:56 AM ORAL C: 37.1 C [employer] Respiratory Rate 16 08/29/2006 11:56 AM [employer] Oxygen Saturation - - Inhaled Oxygen Concentration - - Weight - - Height - - Body Mass Index - - documented in this encounter Progress Notes Rylan Hayward MD - 08/29/2006 12:01 AM CST Progress Notes signed by Rylan Hayward MD at 09/05/06 0901 Author: Rylan Hayward MD Service: (none) Author Type: Physician Filed: 01/07/11 1543 Note Time: 08/29/06 0001 Status: Signed Nurse Receptionist: Rylan Hayward MD (Physician) NAME: SHU OLIVA MR#: [id number] ACCT: [id number] VISIT: [id number] DICTATING CLINICIAN: Rylan Hayward MD JOB: [id number] LOC: 520 CLINIC PROGRESS NOTE DATE OF [...] night only for sleep. PLAN: See assessment. [id number] C: 08/30/06 13:03 DOCUMENT: [id number] [employer] documented in this encounter Plan of Treatment Not on filedocumented as of this encounter Visit Diagnoses Not on filedocumented in this encounter Care Teams Pharmacy Billing Adjudicator Relationship Specialty Start Date End Date Judy Sorensen MD PCP - General 12/18/10 05/02/18 [address] [place] [address] documented as of this encounter
--- OUTSIDE RECORDS SUMMARY | 2022-05-09 08:14 | XMS_ITS | Encounter Summary ---
:1940 Author Organization [employer] Address [address] [place] [address] Care Team Providers Name Role Phone Víctor Sorensen MD Primary Care Provider Encounter Details Date Type Department Care Team Description 09/05/2003 PN Conversion Only [place] All[facility] Nurse, [facility] [address] [place], [place] [id number] Social History Tobacco Use Types Packs/Day Years Used Date Smoking Tobacco: Never Assessed Sex Assigned at Date Recorded Not on file documented as of this encounter Progress Notes Víctor Larsen MD - 09/01/2003 12:01 AM CST Progress Notes signed by Víctor Larsen MD at 01/17/04 1739 Author: Víctor Larsen MD Service: (none) Author Type: Physician Filed: 01/06/11 1703 Note Time: 09/01/03 0001 Status: Signed Geographic Information Systems Analyst: Víctor Larsen MD (Physician) NAME: SHU OLIVA MR: [id number] ACCT: [id number] VISIT: [id number] DICTATING CLINICIAN: VÍCTOR LARSEN MD JOB: [id number] CLINIC PROGRESS NOTE DATE OF VISIT: 09/01/2003 [...] and ALT in 3 months. TT: CT: [facility]:[id number] C: 09/03/03 07:44 DOCUMENT: [id number] Phone Note, Clinician - 02/13/2003 12:01 AM CDT Phone Note filed by Clinician Phone Note at 01/04/11 112 Author: Clinician Phone Note Service: (none) Author Type: Resource Filed: 01/04/11 1122 Note Time: 02/13/03 0001 Status: Signed Geographic Information Systems Analyst: Clinician Phone Note (Resource) TO: VÍCTOR LARSEN FROM: SRIKANTH ZAMBRANO LPN [id number] * PROVIDER MESSAGE: ROUTINE * 02/13/03 08:28AM * *WITHIN 4 HOURS * MESSAGE: PLS ADVICE * HOME PHONE:[phone] * SUBJECTIVE: * CONTACT PHONE:[phone] * CHIEF CONCERN... Kayleen IS CALLING, STATES [...] CALL BY SRIKANTH ZAMBRANO LPN 02/13/2003 08:24AM [id number] ADDENDUM: <> 02/13/2003 09:43AM by AYESHA MANSFIELD LPN: Per Dr. Larsen a Prescription for a Medrol Dose Pack, take as directed, was called to patient's pharmacy ([facility] at [phone]). Patie nt contacted by Dr. Larsen. Víctor Garay MD - 02/11/2003 12:01 AM CDT Progress Notes signed by Víctor Larsen MD at 06/02/03 1613 Author: Víctor Larsen MD Service: (none) Author Type: Physician Filed: 01/06/11 1349 Note Time: 02/11/03 0001 Status: Signed Geographic Information Systems Analyst: Víctor Larsen MD (Physician) NAME: SHU OLIVA MR: [id number] ACCT: [id number] VISIT: [id number] DICTATING CLINICIAN: VÍCTOR LARSEN MD JOB: [id number] CLINIC PROGRESS NOTE DATE OF VISIT: 02/11/2003 SUBJECTIVE: Shu comes in with hives, swelling in thee lower lip, itchiness over her hairline, particular itchiness in the pubic area. She is a little light headed from nausea. This all started yesterday. She is here on the Monday weekend. On Monday she was at a [employer] constitution party, ate some buffalo wings that are unusual [...] time. Zocor first, Ranitidine second. TT: CT: [facility]:[id number] C: 02/21/03 04:58 DOCUMENT: [id number] Víctor Larsen MD - 10/16/2002 12:01 AM CST Progress Notes signed by at 10/23/02 0950 Author: Víctor Larsen MD Service: (none) Author Type: Physician Filed: 01/06/11 1144 Note Time: 10/16/02 0001 Status: Signed Geographic Information Systems Analyst: íVctor Larsen MD (Physician) IMPRESSION: Unintended weight loss. Left mid arm pain. SUBJECTIVE: Shu is a 61-year-old who comes in because of unexplained perceived weight loss. She had thought that she weighed 138 pounds at her physical last summer. Our record shows 134. At [place], she stepped on her home scale and [...] Recheck if weight loss resumes. TT: CT: [facility]:[id number] C: DOCUMENT: [id number] OLOGY SUPERVISOR Anton Burt MD - 08/06/2002 12:01 AM CST Progress Notes signed by at 11/09/02 0001 Author: Anton Burt MD Service: (none) Author Type: Physician Filed: 01/06/11 1007 Note Time: 08/06/02 0001 Status: Signed Geographic Information Systems Analyst: Anton Burt MD (Physician) IMPRESSION: Bronchitis. SUBJECTIVE: [...] will recheck with primary MD. TT: CT: [facility]:[id number] C: 08/06/02 21:49 DOCUMENT: [id number] Víctor Garay MD - 02/18/2002 12:01 AM CDT Progress Notes signed by Víctor Larsen MD at 03/05/02 1029 Author: Víctor Larsen MD Service: (none) Author Type: Physician Filed: 01/06/11 0609 Note Time: 02/18/02 0001 Status: Signed Geographic Information Systems Analyst: Víctor Larsen MD (Physician) IMPRESSION: Annual well [...] or organomegaly. No distention. Normal bowel sounds. FISHER NET: Pelvic exam: Normal EGBUS, vaginal vault and [...] further evaluation at this point. TT: CT: [facility]:[id number] C: DOCUMENT: [id number] Víctor Larsen MD - 12/09/1999 12:01 AM CST Progress Notes signed by Víctor Larsen MD at 12/10/99 1222 Author: Víctor Larsen MD Service: (none) Author Type: Physician Filed: 01/05/11 1519 Note Time: 12/09/99 0001 Status: Signed Geographic Information Systems Analyst: Víctor Larsen MD (Physician) IMPRESSION: Health maintenance [...] working with stable financial base although early residential is out of the question financially. She [...] of osteoporosis and improvement of cardiovascular risks. [facility]:[id number] C: DOCUMENT: [id number] OLOGY SUPERVISOR Dee Burt MD - 10/28/1999 12:01 AM CST Progress Notes signed by Dee Burt MD at 02/28/00 1012 Author: Dee Burt MD Service: (none) Author Type: Physician Filed: 01/05/11 1441 Note Time: 10/28/99 0001 Status: Signed Geographic Information Systems Analyst: Dee Burt MD (Physician) IMPRESSION: Ceruminosis. Otitis media. SUBJECTIVE: See today's URI form. OBJECTIVE: N/A ASSESSMENT: Ceruminosis. Otitis media. PLAN: Ear lavage. Jesus QUEZADA. CAM:[id number] C: DOCUMENT: [id number] Conversion, [facility] - 03/01/1999 12:01 AM CDT Phone Note signed by at 03/01/99 0748 Author: Alisa Rolle Service: (none) Author Type: (none) Filed: 01/05/11 1048 Note Time: 03/01/99 0001 Status: Signed Geographic Information Systems Analyst: Alisa Rolle IMPRESSION: Requesting call from Dr. Larsen TO: VÍCTOR LARSEN FROM: ISAURA CÁRDENAS RN [phone] * PROVIDER MESSAGE: RETURN * 03/01/1999 07:48AM * CALL REQUESTED * MESSAGE: Requesting call * HOME PHONE: [phone] * SUBJECTIVE: * CONTACT PHONE: [phone] * CHIEF CONCERN... Patient * Shu Oliva * calling, requesting a call * PHARMACY: [phone] * from Dr. Larsen. Patient * [facility] * received her letter of explanation [...] FOLLOWING... Call taken by ISAURA CÁRDENAS RN [phone] 03/01/1999 07:44 AM ADDENDUM: Víctor Garay MD - 02/16/1999 12:01 AM CDT Progress Notes signed by Víctor Larsen MD at 03/02/99 0748 Author: Víctor Larsen MD Service: (none) Author Type: Physician Filed: 01/05/11 1034 Note Time: 02/16/99 0001 Status: Signed Geographic Information Systems Analyst: Víctor Larsen MD (Physician) IMPRESSION: Chest pain, [...] up in six weeks to three months. [facility]:[id number] C: DOCUMENT: [id number] Derek Schultz MD - 02/10/1999 12:01 AM CDT Progress Notes signed by Derek Schultz MD at 06/17/99 0950 Author: Derek Schultz MD Service: (none) Author Type: Physician Filed: 01/05/11 1030 Note Time: 02/10/99 0001 Status: Signed Geographic Information Systems Analyst: Derek Schultz MD (Physician) IMPRESSION: Probably noncardiac discomfort. SUBJECTIVE: Shu Oliva is a 58-year-old woman [place], she had some pain in [...] 1005 Note Time: 01/18/99 0001 Status: Signed Geographic Information Systems Analyst: Víctor Larsen MD (Physician) IMPRESSION: Stable angina, early upper respiratory infection, gastritis. SUBJECTIVE: Shu comes in for follow-up of her unstable angina. She was admitted to [facility] on January 01. Had symptoms highly suggestive of heart disease, but a negative rule out myocardial infarction and was transferred for angiography to [facility] where a single lesion of 80% blockage [...] of 219 and HDL 49, triglycerides normal. [facility]:[id number] C: DOCUMENT: [id number] Paige Gardner MD - 12/30/1998 12:01 AM CDT Progress Notes signed by at 05/22/99 1508 Author: Paige Gardner MD Service: (none) Author Type: (none) Filed: 01/05/11 0946 Note Time: 12/30/98 0001 Status: Signed Geographic Information Systems Analyst: Alisa Conversion IMPRESSION: Unstable angina. 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 PLAN: The patient was transported to [facility] to be under the care of Dr. Welch, Family Medicine. She was in stable condition when she left with the paramedics. stw Sunil Grayson MD - 06/10/1998 12:01 AM CDT Progress Notes signed by Sunil Ansari MD at 09/03/98 1250 Author: Sunil Ansari MD Service: (none) Author Type: Physician Filed: 01/05/11 0616 Note Time: 06/10/98 0001 Status: Signed Geographic Information Systems Analyst: Sunil Ansari MD (Physician) IMPRESSION: Possible polyp at 15 cm. behind valve of [place]. SUBJECTIVE: Ms. Oliva comes in for a [...] PLAN: Recommended colonoscopy for further evaluation. [id number] OLOGY SUPERVISOR Víctor Larsen MD - 05/26/1998 12:01 AM CDT Progress Notes signed by Víctor Larsen MD at 06/07/98 1333 Author: Víctor Larsen MD Service: (none) Author Type: Physician Filed: 01/05/11 0601 Note Time: 05/26/98 0001 Status: Signed Geographic Information Systems Analyst: Víctor Larsen MD (Physician) IMPRESSION: Tobacco abuse. 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 She is not using any accessory [...] signed by Víctor Larsen MD at 06/07/98 6148 Author: Víctor Larsen MD Service: (none) Author Type: Physician Filed: 01/05/11 0537 Note Time: 04/28/98 0001 Status: Signed Geographic Information Systems Analyst: Víctor Larsen MD (Physician) IMPRESSION: L5-S1 right [...] 0535 Note Time: 04/25/98 0001 Status: Signed Geographic Information Systems Analyst: Andie Dennis MD (Physician) IMPRESSION: Dizziness, most [...] by similar bilateral knees. Babinski is negative. Poqnrl-qi-onpa intact. Gait is intact. Sensation intact in [...] develop. Recheck if any concerns. gianluca Conversion, [facility] - 12/27/1997 12:01 AM CDT Progress Notes signed by at 07/06/98 192 Author: Alisa Conversion Service: (none) Author Type: (none) Filed: 01/05/11 0349 Note Time: 12/27/97 0001 Status: Signed Geographic Information Systems Analyst: Alisa Conversion IMPRESSION: 1. Sinusitis. 2. Bilateral [...] 20. ALLERGIES: None. MEDICATIONS: None. Denies using zidf-olk-geizaiw medications for her facial symptoms. On examination, [...] promised to do that with Dr. Larsen. [facility] SCHEDULED RESOURCE: MICHELE BYRNES MD OLOGY SUPERVISOR documented in this encounter Plan of Treatment Not on filedocumented as of this encounter Procedures Procedure Name Priority Date/Time Associated Comments Diagnosis XR HUMERUS Routine 10/16/2002 11:29 Results for this AM PATHOLOGY SUPERVISOR procedure are i n the results section. COMPLETE BLOOD Routine 10/16/2002 11:17 Results f or this COUNT-NO DIFF AM PATHOLOGY SUPERVISOR procedure are in the results section. PHOSPHORUS Routine 10/16/2002 11:17 Results for this AM PATHOLOGY SUPERVISOR procedure are i n the results section. CALCIUM Routine 10/16/2002 11:17 Results for this AM PATHOLOGY SUPERVISOR procedure are i n the results section. XR CHEST PA WITH Routine 08/06/2002 12:55 Results for this LATERAL PM PATHOLOGY SUPERVISOR procedure are i n the results [...] Result s for this DIRECT LDL(IF NEEDED) PATHOLOGY SUPERVISOR proced ure are in the results section. ALT (SGPT) Routine 11/09/2001 8:02 AM Results f or this PATHOLOGY SUPERVISOR procedure are i n the results section. AST Routine 11/09/2001 8:02 AM Results f or this PATHOLOGY SUPERVISOR procedure are i n the results section. MM MAMMOGRAM Routine 11/06/2001 10:30 Results for this SCREENING W CAD AM PATHOLOGY SUPERVISOR procedure ar e in the results section. LIPID PANEL AND Routine 07/06/2000 8:09 AM Result s for this DIRECT LDL(IF NEEDED) CDT proced ure are in the results section. MM MAMMOGRAM Routine 12/31/1999 9:30 AM Results f or this SCREENING W CAD CDT procedure ar e in the results section. GLUCOSE Routine 12/09/1999 10:04 Results for this AM PATHOLOGY SUPERVISOR procedure are i n the results section. THYROID STIMULATING Routine 12/09/1999 10:04 Resu lts for this HORMONE AM PATHOLOGY SUPERVISOR procedure are i n the results section. COMPLETE BLOOD Routine 12/09/1999 10:04 Results f or this COUNT-NO DIFF, NO PLT AM PATHOLOGY SUPERVISOR proced ure are in the results section. LIPID PANEL AND Routine 12/09/1999 10:04 Results for this DIRECT LDL(IF NEEDED) AM PATHOLOGY SUPERVISOR proced ure are in the results section. AST Routine 12/09/1999 10:04 Results for this AM PATHOLOGY SUPERVISOR procedure are i n the results section. PROTEIN, TOTAL Routine 12/09/1999 10:04 Results f or this (SERUM) AM PATHOLOGY SUPERVISOR procedure are i n the results section. ALBUMIN Routine 12/09/1999 10:04 Results for this AM PATHOLOGY SUPERVISOR procedure are i n the results section. ANATOMICAL PATH-C Routine 12/09/1999 5:39 AM Resu lts for this PATHOLOGY SUPERVISOR procedure are i n the results [...] Resu lts for this UNILAT EXTRA VIEW PATHOLOGY SUPERVISOR procedure are in the results section. MM [...] encounter Results XR Humerus (10/16/2002 11:29 AM PATHOLOGY SUPERVISOR) Anatomical Region Laterality Modality Other Specimen (Source) Anatomical Location Collection Method / Collectio n Time Received Time / Laterality Volume Narrative 10/16/2002 11:29 AM PATHOLOGY SUPERVISOR CLINICAL DATA: ?PAIN ?719.42 FINDINGS: ?NO ACUTE OR SIGNIFICANT BONE OR BRANDON INT ABNORMALITY. ??THERE IS ?SOME DEGENERATIVE CHANGE AT THE AC JOINT. ?[id number] [facility] TECH-ID : ? YMM TRANS-ID: ? EDR Procedure Note Ian Cotton - 11/26/2016Formatting o f this note might be different from the original. CLINICAL DATA: PAIN 719.42 FINDINGS: NO ACUTE OR SIGNIFICANT BONE OR JOINT A BNORMALITY. THERE IS [place] DEGENER[place]. [id number] MT TECH-ID : YMM TRANS-ID: EDR Víctor Sorensen MD RAD GD Calcium (10/16/2002 11:17 AM PATHOLOGY SUPERVISOR) athologist Signature Calcium 9.0 8.5 - 10.5 HP CONVERSION mg/dL Specimen (Source) Anatomical Collection Method Collection Time Re ceived Time Location / / Volume Laterality 10/16/2002 11:17 AM PATHOLOGY SUPERVISOR Víctor Sorensen MD LAB_1 Performing Organization Address City/[facility] Phon e Number HP CONVERSION Phosphorus (10/16/2002 11:17 AM PATHOLOGY SUPERVISOR) athologist Signature Phosphorus 4.1 2.5 - 4.5 HP CONVERSION Serum mg/dL Specimen (Source) Anatomical Collection Method Collection Time Re ceived Time Location / / Volume Laterality 10/16/2002 11:17 AM PATHOLOGY SUPERVISOR Víctor Sorensen MD LAB_1 Performing Organization Address [facility] Phon e Number HP CONVERSION Complete Blood Count-No Diff (10/16/2002 11:17 AM PATHOLOGY SUPERVISOR) athologist Signature White Blood Cell 10.9 3.8 [...] - HP CONVERSION Hemoglobin Conc 36.5 gm/dL [place] RDW 12.6 11.0 - HP CONVERSION 15.0 % Platelet Count 253 140 - 450 HP CONVERSION k/cmm Specimen (Source) Anatomical Collection Method Collection Time Re ceived Time Location / / Volume Laterality 10/16/2002 11:17 AM PATHOLOGY SUPERVISOR Víctor Sorensen MD LAB_1 Performing Organization Address City/State/ZIP Code Phon e Number HP CONVERSION XR Chest PA With Lateral (08/06/2002 12:55 PM PATHOLOGY SUPERVISOR) Anatomical Region Laterality Modality Other Specimen (Source) Anatomical Location Collection Method / Collectio n Time Received Time / Laterality Volume Narrative 08/06/2002 12:55 PM PATHOLOGY SUPERVISOR CLINICAL DATA: ?COUGH, CONGESTION. ?786.2 FINDINGS: ?? [...] US MASS SEEN. NO FREE ?FLUID NOTED. ?[id number] TECH-ID : ? CL TRANS-ID: ? EDR [...] MA SS SEEN. NO FREE FLUID NOTED. [id number] TECH-ID : CL TRANS-ID: EDR Víctor Sorensen [...] - HP CONVERSION Hemoglobin Conc 36.5 gm/dL [place] RDW 12.4 11.0 - HP CONVERSION 15.0 [...] Víctor Sorensen MD LAB_1 Performing Organization Address [facility]/ZIP Code Phon e Number HP CONVERSION Glucose (02/18/2002 10:08 AM CDT) P athologist Signature Lab Glucose 87 60 - 109 HP CONVERSION mg/dL Specimen (Source) Anatomical Collection Method Collection Time Re ceived Time Location / / Volume Laterality 02/18/2002 10:08 AM CDT Víctor Sorensen MD LAB_1 Performing Organization Address City/[facility]/ZIP Code Phon e Number HP CONVERSION ESR (02/18/2002 10:08 AM CDT) Patholo gist Method Time Signature Sedimentation Rate 3 0 - 20 HP CONVERSI ON mm/Hr Specimen (Source) Anatomical Collection Method Collection Time Re ceived Time Location / / Volume Laterality 02/18/2002 10:08 AM CDT Víctor Sorensen MD LAB_1 Performing Organization Address [facility] Phon e Number HP CONVERSION XR Chest Apical Lordotic (02/18/2002 9:58 AM CDT) Anatomical Region Laterality Modality Chest, Lung Other Specimen (Source) Anatomical Location Collection Method / Collectio n Time Received Time / Laterality Volume Narrative 02/18/2002 9:58 AM CDT CLINICAL DATA: ?SHOULDER PAIN. SCAPULA PAIN. ?719.41 FINDINGS: ?CHEST IS NEGATIVE AND UNCHANGED FR OM 05/26/98. ?[id number] TECH-ID : TRANS-ID: ? EDR Procedure Note Allen Clark - 11/26/2016 CLINICAL DATA: SHOULDER PAIN. SCAPULA PAIN. 719.41 FINDINGS: CHEST IS NEGATIVE AND UNCHANGED FROM . [id number] TECH-ID : TRANS-ID: EDR Víctor Sorensen MD RAD GD Anatomical Path-C (02/18/2002 6:01 AM CDT) athologist Signature PAP Smear SEE TEXT No normal HP CONVERSION range Comment: Patient: SHU OLIVA ? CERVICAL CYTOLOGY REPORT Pathology # ??[id number] ?Date Obtained: ? Date Received: LMP: CLINICAL [...] and Direct LDL(If Needed) (11/09/2001 8:02 AM PATHOLOGY SUPERVISOR) [facility] Method Time Signature Cholesterol/HDL 3.7 No normal [...] / / Volume Laterality 11/09/2001 8:02 AM PATHOLOGY SUPERVISOR Víctor Sorensen MD LAB_1 Performing Organization Address City/State/ZIP Code Phon e Number HP CONVERSION AST (11/09/2001 8:02 AM PATHOLOGY SUPERVISOR) [facility] Method Time Signature Aspartate 14 0 - 45 HP CONVERSION Aminotransferase U/L Specimen (Source) Anatomical Collection Method Collection Time Re ceived Time Location / / Volume Laterality 11/09/2001 8:02 AM PATHOLOGY SUPERVISOR Víctor Sorensen MD LAB_1 Performing Organization Address City/State/ZIP Code Phon e Number HP CONVERSION ALT (SGPT) (11/09/2001 8:02 AM PATHOLOGY SUPERVISOR) [place] Method Time Signature Alanine 31 0 - 65 HP CONVERSION Aminotransferase U/L Specimen (Source) Anatomical Collection Method Collection Time Re ceived Time Location / / Volume Laterality 11/09/2001 8:02 AM PATHOLOGY SUPERVISOR Víctor Sorensen MD LAB_1 Performing Organization Address City/[facility]/ZIP Code Phon e Number HP CONVERSION MM Mammogram Screening W CAD (11/06/2001 10:30 AM PATHOLOGY SUPERVISOR) Anatomical Region Laterality Modality Breast Bilateral Mammography Specimen (Source) Anatomical Location Collection Method / Collectio n Time Received Time / Laterality Volume Impressions 11/06/2001 10:30 AM PATHOLOGY SUPERVISOR : ?? NO MAMMOGRAPHIC EVIDENCE OF MALIGNAN [...] ANA M TRANS-ID: Narrative 11/06/2001 10:30 AM PATHOLOGY SUPERVISOR SEVERITY: 1 CLINICAL DATA: ?MAMMO PREV 12/31/1999 [...] Direct LDL(If Needed) (07/06/2000 8:09 AM CDT) [facility] Method Time Signature Length Of Fast 12.0 [...] ILIA Thyroid Stimulating Hormone (12/09/1999 10:04 AM PATHOLOGY SUPERVISOR) P athologist Signature Thyroid 1.66 0.20 - HP CONVERSION Stimulating 5.50 Hormone uIU/mL Specimen (Source) Anatomical Collection Method Collection Time Re ceived Time Location / / Volume Laterality 12/09/1999 10:04 AM PATHOLOGY SUPERVISOR Víctor Sorensen MD LAB_1 Performing Organization Address City/State/ZIP Code Phon e Number HP CONVERSION (ABNORMAL) Lipid Panel and Direct LDL(If Needed) (12/09/1999 10:04 AM PATHOLOGY SUPERVISOR) [facility] gist Method Time Signature Length Of [...] / / Volume Laterality 12/09/1999 10:04 AM PATHOLOGY SUPERVISOR Víctor Sorensen MD LAB_1 Performing Organization Address City/[facility]/ZIP Code Phon e Number HP CONVERSION Albumin (12/09/1999 10:04 AM PATHOLOGY SUPERVISOR) athologist Signature Albumin 3.5 3.0 - 5.0 HP CONVERSION g/dL Specimen (Source) Anatomical Collection Method Collection Time Re ceived Time Location / / Volume Laterality 12/09/1999 10:04 AM PATHOLOGY SUPERVISOR Víctor Sorensen MD LAB_1 Performing Organization Address City/State/ZIP Code Phon e Number HP CONVERSION AST (12/09/1999 10:04 AM PATHOLOGY SUPERVISOR) [facility] gist Method Time Signature Aspartate 19 0 - 45 HP CONVERSION Aminotransferase U/L Specimen (Source) Anatomical Collection Method Collection Time Re ceived Time Location / / Volume Laterality 12/09/1999 10:04 AM PATHOLOGY SUPERVISOR Víctor Sorensen MD LAB_1 Performing Organization Address City/State/ZIP Code Phon e Number HP CONVERSION Glucose (12/09/1999 10:04 AM PATHOLOGY SUPERVISOR) P athologist Signature Length Of Fast 12.0 8.0 - 24.0 HP CONVERSION Hours Lab Glucose 93 70 - 115 HP CONVERSION mg/dL Specimen (Source) Anatomical Collection Method Collection Time Re ceived Time Location / / Volume Laterality 12/09/1999 10:04 AM PATHOLOGY SUPERVISOR Víctor Sorensen MD LAB_1 Performing Organization Address City/[facility] Phon e Number HP CONVERSION Protein, Total (Serum) (12/09/1999 10:04 AM PATHOLOGY SUPERVISOR) athologist Signature Protein Total, 7.1 5.7 - 8.3 HP CONVERSION Serum gm/dL Specimen (Source) Anatomical Collection Method Collection Time Re ceived Time Location / / Volume Laterality 12/09/1999 10:04 AM PATHOLOGY SUPERVISOR Víctor Sorensen MD LAB_1 Performing Organization Address City/[facility] Phon e Number HP CONVERSION Complete Blood Count-No Diff, No Plt (12/09/1999 10:04 AM PATHOLOGY SUPERVISOR) P athologist Signature White Blood Cell 8.3 [...] - HP CONVERSION Hemoglobin Conc 36.5 gm/dL [place] RDW 12.4 11.0 - HP CONVERSION 15.0 % Specimen (Source) Anatomical Collection Method Collection Time Re ceived Time Location / / Volume Laterality 12/09/1999 10:04 AM PATHOLOGY SUPERVISOR Víctor Sorensen MD LAB_1 Performing Organization Address [facility] Phon e Number HP CONVERSION Anatomical Path-C (12/09/1999 5:39 AM PATHOLOGY SUPERVISOR) P athologist Signature PAP Smear SEE TEXT No normal HP CONVERSION range Comment: Patient: SHU OLIVA ? CERVICAL CYTOLOGY REPORT Pathology # ??[id number] ?Date Obtained: ? Date Received: LMP: CLINICAL HIST CERVICAL SMEAR SPECIMEN ADEQUACY: ?? Satisfactory. ENDOCERVICAL CELLS: ??Present. CYTOLOGIC IMPRESSION: Within Normal Limits (Negative). Verified 12/16/99 by: ??JYO ?(electronic signature) Specimen (Source) Anatomical Collection Method Collection Time Re ceived Time Location / / Volume Laterality 12/09/1999 5:39 AM PATHOLOGY SUPERVISOR Víctor Sorensen MD LAB_1 Performing Organization Address City/[facility] Phon e Number HP CONVERSION Lipid Panel and Direct LDL(If Needed) (05/17/1999 8:05 AM CDT) [facility] Method Time Signature Cholesterol 179 125 - [...] Víctor Sorensen MD LAB_1 Performing Organization Address City/[facility]/ZIP Code Phon e Number HP CONVERSION AST (05/17/1999 8:05 AM CDT) [facility] gist Method Time Signature Aspartate 15 0 - 45 HP CONVERSION Aminotransferase U/L Specimen (Source) Anatomical Collection Method Collection Time Re ceived Time Location / / Volume Laterality 05/17/1999 8:05 AM CDT Víctor Sorensen MD LAB_1 Performing Organization Address [facility] Phon e Number HP CONVERSION FL UGI [...] RAD FL AST (02/16/1999 9:48 AM CDT) [facility] Method Time Signature Aspartate 12 0 - 45 HP CONVERSION Aminotransferase U/L Specimen (Source) Anatomical Collection Method Collection Time Re ceived Time Location / / Volume Laterality 02/16/1999 9:48 AM CDT Víctor Sorensen MD LAB_1 Performing Organization Address City/State/ZIP Code Phon e Number HP CONVERSION (ABNORMAL) Lipid Panel and Direct LDL(If Needed) (02/10/1999 8:36 AM CDT) [facility] Method Time Signature Length Of Fast [...] Víctor Sorensen MD LAB_1 Performing Organization Address City/[facility]/ZIP Code Phon e Number HP CONVERSION AST (02/10/1999 8:36 AM CDT) [facility] Method Time Signature Aspartate 11 0 - 45 HP CONVERSION Aminotransferase U/L Specimen (Source) Anatomical Collection Method Collection Time Re ceived Time Location / / Volume Laterality 02/10/1999 8:36 AM CDT Víctor Sorensen MD LAB_1 Performing Organization Address City/State/ZIP Code Phon e Number HP CONVERSION Strep Group A Antigen Test (01/18/1999 2:02 PM CDT) [facility] Strep Group A Negative [...] Strep Follow up Culture @ ? Collected: ??[id number] ??[id number] Source: Throat ?Processed: ??[id number] ??1412 ? 1V Final Report ------ ?[id number] ??[id number] No beta hemolytic Strep group A isolated . @ = Rapid F/U Cult Performed at ??[address] [place] ?[address] Specimen (Source) Anatomical Collection Method Collection Time [...] OLIVA ? CERVICAL CYTOLOGY REPORT Pathology # ??[id number] ?Date Obtained: ? Date Received: LMP: CLINICAL [...] ASPECT OF THE RIGHT BREAST WHICH WAS IN ESENT 02/09/93 IS NO LONGER PRESENT. THIS [...] Diag Unilat Extra View (10/05/1993 2:00 PM PATHOLOGY SUPERVISOR) Anatomical Region Laterality Modality Breast Mammography Specimen (Source) Anatomical Location Collection Method / Collectio n Time Received Time / Laterality Volume Narrative 10/05/1993 2:00 PM PATHOLOGY SUPERVISOR CLINICAL DATA: ?6 MTH F/U RT BRST [...] on filedocumented in this encounter Care Teams Wool Mixer Relationship Specialty Start Date End Date Víctor Sorensen MD PCP - General 12/18/10 05/02/18 [address] [place], [place] [address] documented as of this encounter
--- OUTSIDE RECORDS SUMMARY | 2022-05-09 08:14 | XMS_ITS | Encounter Summary ---
:1940 Author Organization [facility] Address [address] [place] [address] Care Team Providers Name Role Phone Judy Sorensen MD Primary Care Provider Encounter Details Date Type Department Care Team Description 01/15/1993 PN Conversion Only CAODAISM CONVERSION Judy Sorensen MD [address] [place] [address] (Wo rk) Social History Tobacco [...] on filedocumented in this encounter Care Teams Wound/Ostomy Nurse Relationship Specialty Start Date End Date Judy Sorensen MD PCP - General 12/18/10 05/02/18 [address] [place] [address] documented as of this encounter
--- OUTSIDE RECORDS SUMMARY | 2022-05-09 08:14 | XMS_ITS | Encounter Summary ---
:1940 Author Organization [employer] Address [address] [place] [address] Care Team Providers Name Role Phone Unassigned, Provider Primary Care Provider Unavailable Encounter Details Date Type Department Care Team Description 08/03/2002 Office Visit Urgent Care [facility] [place] [address] [place], [place] [address] Social History Tobacco Use Types Packs/Day Years Used Date Smoking Tobacco: Never Assessed Sex Assigned at Date Recorded Not on file documented as of this encounter Last Filed Vital Signs Vital Sign Reading Time Taken Comments Blood Pressure 130/78 08/03/2002 12:30 PM [employer] Pulse 66 08/03/2002 12:30 PM [employer] Temperature 36.6 ??C (97.8 ??F) 08/03/2002 12:30 PM [employer] Respiratory Rate 12 08/03/2002 12:30 PM [employer] Oxygen Saturation - - Inhaled Oxygen Concentration - - Weight 62.6 kg (138 lb) 08/03/2002 12:30 PM [employer] Height - - Body Mass Index - - documented in this encounter Progress Notes 08/03/2002 12:30 PM [employer] Room # n/a Rooming time: 12:41 PM [...] important to you? NO. Resources given? NO. lodging facilities attendant offered -NOT APPLICABLE. Health Education given -NO. Primary provider: Provider Unassigned Contact phone number [phone] (home) Alternate phone number Nata Galdamez RN [...] Cerumen Impaction IN SUMMARY: CERUMEN IMPACTION cc: [employer] documented in this encounter Plan of Treatment Not on filedocumented as of this encounter Visit Diagnoses Diagnosis Impacted cerumen documented in this encounter Care Teams Ocular Pathologist Relationship Specialty Start Date End Date Unassigned, Provider PCP - General 08/25/00 12/17/[address] [place] [address] documented as of this encounter
--- OUTSIDE RECORDS SUMMARY | 2022-05-09 08:14 | XMS_ITS | Encounter Summary ---
:1940 Author Organization [employer] Address [address] [place] [address] Care Team Providers Name Role Phone Unassigned, Provider Primary Care Provider Unavailable Encounter Details Date Type Department Care Team Description 10/28/2002 Hospital Encounter SABIANIST CONVERSION Judy Sorensen MD [address] [place], [place] [address] (Wo rk) Social History Tobacco Use Types [...] AM Resul ts for this WHOLE BODY SOLAR THERMAL INSTALLER procedure are i n the results section. documented in this encounter Results N/O NM Bone Scan Whole Body (10/28/2002 9:30 AM SOLAR THERMAL INSTALLER) Anatomical Region Laterality Modality Skeletal Other Specimen (Source) Anatomical Location Collection Method / Collectio n Time Received Time / Laterality Volume Impressions 10/28/2002 9:30 AM SOLAR THERMAL INSTALLER : ??Negative whole body bone scan. Lak C: 10/28/02 2:5 1:30 PM Narrative 10/28/2002 9:30 AM SOLAR THERMAL INSTALLER Injected dose 27.3 mCi Tc99m MDP lot #[id number]. There are no scintigraphic abnormalities to suggest [...] on filedocumented in this encounter Care Teams Internal Combustion Engineer Relationship Specialty Start Date End Date Unassigned, Provider PCP - General 08/25/00 12/17/[address] [place] [address] documented as of this encounter
--- OUTSIDE RECORDS SUMMARY | 2022-05-09 08:14 | XMS_ITS | Encounter Summary ---
:1940 Author Organization [employer] Address [address] [place] [address] Care Team Providers Name Role Phone Judy Sorensen MD Primary Care Provider Encounter Details Date Type Department Care Team Description 11/06/2002 PN Conversion Only [facility] [address] [place], [place] [address] Social History Tobacco Use Types Packs/Day Years [...] 1215 Note Time: 11/06/02 0001 Status: Signed Stick Welder: Jesse Grady MD (Physician) NAME: SHU OLIVA MR: [id number] ACCT: VISIT: [id number] DICTATING CLINICIAN: Eliot GRADY MD,PhD JOB: [id number] CLINIC DEXA REPORT DATE OF VISIT: 11/06/2002 : 1940. SUBJECTIVE: REFERRING PROVIDER: JUDY GARCÍA MD INTERPRETING PHYSICIAN: Eliot GRADY MD,PhD : OSTEOPOROSIS RISK FACTORS FROM PATIENT QUESTIONNAIRE: Fhxwu-ype-lwsy-old, postmenopausal woman, lack of HRT since menopause [...] Bone density on Hologic QDR [address]. CD:[id number] C: 11/21/02 09:31 DOCUMENT: [id number] NICAL ADMINISTRATIVE ASSISTANT documented in this encounter Plan of Treatment Not on filedocumented as of this encounter Visit Diagnoses Not on filedocumented in this encounter Care Teams Sprayer Machine Relationship Specialty Start Date End Date Judy Sorensen MD PCP - General 12/18/10 05/02/18 [address] [facility] [place] [address] documented as of this encounter
--- OUTSIDE RECORDS SUMMARY | 2022-05-09 08:14 | XMS_ITS | Encounter Summary ---
:1940 Author Organization [facility] Address [address] [place] [address] Care Team Providers Name Role Phone Judy Sorensen MD Primary Care Provider Encounter Details Date Type Department Care Team Description 02/16/1993 PN Conversion Only JEWISH CONVERSION Bethel Owens MD [address] [place] [address] Social History Tobacco Use Types Packs/Day Years [...] Default Interface Order (02/16/1993 3:39 PM CDT) [facility] Method Time Signature Surgical See Detail HP [...] on filedocumented in this encounter Care Teams Blind Installer Relationship Specialty Start Date End Date Judy Sorensen MD PCP - General 12/18/10 05/02/18 [address] [place] [address] documented as of this encounter
--- OUTSIDE RECORDS SUMMARY | 2022-05-09 08:14 | XMS_ITS | Encounter Summary ---
:1940 Author Organization [facility] Address [address], [place] [address] Care Team Providers Name Role Phone Unassigned, Provider Primary Care Provider Unavailable Encounter Details Date Type Department Care Team Description 04/08/2002 Orders Only Unassigned, Prov ider [address] [place] [address] Social History Tobacco Use Types Packs/Day Years Used Date Smoking Tobacco: Never Assessed Sex Assigned at Date Recorded Not on file documented as of this encounter Plan of Treatment Not on filedocumented as of this encounter Visit Diagnoses Not on filedocumented in this encounter Care Teams Cork Floor Installer Relationship Specialty Start Date End Date Unassigned, Provider PCP - General 08/25/00 12/17/10 [address] [place] [address] documented as of this encounter
--- OUTSIDE RECORDS SUMMARY | 2022-05-09 08:14 | XMS_ITS | Encounter Summary ---
:1940 Author [facility] Address [address], [place] [address] Care Team Providers Name Role Phone Unassigned, Provider Primary Care Provider Unavailable Encounter Details Date Type Department Care Team Description 01/04/2002 Orders Only Unassigned, Prov ider [address] [place] [address] Social History Tobacco Use Types Packs/Day Years Used Date Smoking Tobacco: Never Assessed Sex Assigned at Date Recorded Not on file documented as of this encounter Plan of Treatment Not on filedocumented as of this encounter Visit Diagnoses Not on filedocumented in this encounter Care Teams Sleeve Setter Lockstitch Relationship Specialty Start Date End Date Unassigned, Provider PCP - General 08/25/00 12/17/10 [address] [place] [address] documented as of this encounter
--- OUTSIDE RECORDS SUMMARY | 2022-05-09 08:14 | XMS_ITS | Encounter Summary ---
:1940 Author Organization [facility] Address [address] [address] Care Team Providers Name Role Phone Unassigned, Provider Primary Care Provider Unavailable Encounter Details Date Type Department Care Team Description 01/26/2001 Orders Only Unassigned, Prov ider [address] [place] [address] Social History Tobacco Use Types Packs/Day Years Used Date Smoking Tobacco: Never Assessed Sex Assigned at Date Recorded Not on file documented as of this encounter Plan of Treatment Not on filedocumented as of this encounter Visit Diagnoses Not on filedocumented in this encounter Care Teams Plant Guide Relationship Specialty Start Date End Date Unassigned, Provider PCP - General 08/25/00 12/17/10 [address] [place] [address] documented as of this encounter
--- OUTSIDE RECORDS SUMMARY | 2022-05-09 08:14 | XMS_ITS | Encounter Summary ---
:1940 Author Organization [employer] Address [address] [place] [address] Care Team Providers Name Role Phone Unavailable Primary Care Provider Unavailable Encounter Details Date Type Department Care Team Description 12/31/1998 - Hospital Encounter [facility] 01/01/1999 [facility] [address] [place] [address] Social History Tobacco Use Types Packs/Day Years [...] 0949 Note Time: 01/01/99 0000 Status: Signed Distillery Miller: Derek Schultz MD (Physician) [id number].[facility] QCQCQC DISCHARGE SUMMARY ADMITTING DIAGNOSIS: DISCHARGE DIAGNOSIS: [...] and cardiac exam were all normal. HISTORY: Njcqw-ftawt-selm-old woman who is admitted to [facility] with chest pain suspicious for unstable [...] DEREK SCHULTZ MD CC: VÍCTOR LARSEN MD TJD:[id number] C: DOCUMENT: [id number] END OF RECORD: N ORIGINATION SPECIALIST documented in this encounter Progress Notes Derek Schultz MD - 12/31/1998 12:01 AM CDT Procedures signed by Distribute Print And at 08/25/99 1200 Author: Derek Schultz MD Service: (none) Author Type: Physician Filed: 01/05/11 0948 Note Time: 12/31/98 0000 Status: Signed Distillery Miller: Derek Schultz MD (Physician) [id number].[facility] QCQCQC CARDIAC CATHETERIZATION DATE OF PROCEDURE: 12/31/1998 PREPROCEDURE DIAGNOSIS: Anginoid chest pain, rule out myocardial infarction. POSTPROCEDURE DIAGNOSIS: 1. Plaquing of coronary arteries, with moderate circumflex lesion and normal left ventricular function. 2. Moderate right iliac stenosis. PROCEDURE: Left heart catheterization and angiography. Fluroscopy time was 3.9 minutes, with 91 cc of Op-Ray dye used, 5 Nepali catheters. A left 3.5 catheter was used [...] and optimize risk factors. DEREK SCHULTZ MD TJD:[id number] C: DOCUMENT: [id number] END OF RECORD: N ORIGINATION SPECIALIST documented in this encounter Miscellaneous Notes Miscellaneous - Derek Schultz MD - 01/01/1999 1:57 PM CDT ICD-9-CM ICD-9-CM Narrative description Code ======== DIAGNOSES Principal: CHEST PAIN NOS 786.50 Secondary: ANGINA PECTORIS NEC/NOS 413.9 TOBACCO USE DISORDER 305.1 CORONARY ATHEROSCLEROSIS;[place] CORONARY VESSEL 414.01 ATHEROSCLEROSIS,[place] ARTERIES OF EXTREM.,UNSPEC. 440.20 PROCEDURES Provider Date [...] Derek Schultz MD LAB_1 Performing Organization Address City/[facility] Code Phon e Number HP [...] Derek Schultz MD LAB_1 Performing Organization Address City/[facility] Phon e Number HP CONVERSION (ABNORMAL) Conversion Default Interface Order (01/01/1999 5:00 AM CDT) Patholo gist Method Time Signature LDL Calculated 151 (HH) 66 129mg/d HP CONVERSION L Specimen (Source) Anatomical Collection Method Collection Time Re ceived Time Location / / Volume Laterality 01/01/1999 5:00 AM CDT Derek Schultz MD LAB_1 Performing Organization Address [facility] Phon e Number HP CONVERSION Conversion Default Interface Order (01/01/1999 5:00 AM CDT) P athologist Signature Magnesium 1.8 1.5 2.4mg/d HP CONVERSION L Specimen (Source) Anatomical Collection Method Collection Time Re ceived Time Location / / Volume Laterality 01/01/1999 5:00 AM CDT Derek Schultz MD LAB_1 Performing Organization Address [facility] Phon e Number HP CONVERSION documented in this encounter Visit Diagnoses Not on filedocumented in this encounter
--- OUTSIDE RECORDS SUMMARY | 2022-05-09 08:14 | XMS_ITS | Encounter Summary ---
:1940 Author Organization [facility] Address [address] [place] [address] Care Team Providers Name Role Phone Judy Sorensen MD Primary Care Provider Encounter Details Date Type Department Care Team Description 01/13/1993 PN Conversion Only WORSHIP CONVERSION Judy Sorensen MD [address] [place] [address] (Wo rk) Social History Tobacco [...] Default Interface Order (01/12/1993 3:31 PM CDT) [facility] Method Time Signature Surgical See Detail [...] in this encounter Care Teams Real Estate Branch Manager Relationship Specialty Start Date End Date Judy Sorensen MD PCP - General 12/18/10 05/02/18 [address] [place] [address] documented as of this encounter
[2022-05-09 17:35] LABS: Chloride* 101 mmol/L (96-114)
[2022-05-09 17:36] LABS: Potassium* 4.3 mmol/L (3.6-5.1); Sodium* 140 mmol/L (135-149)
[2022-05-09 17:38] LABS: Creatinine* 1.4 mg/dL (0.5-1.5); Estimated Glomerular Filt Rate 38 ml/min
[2022-05-09 17:39] LABS: Blood Urea Nitrogen* 32 mg/dL (7-30); Carbon Dioxide* 32 mmol/L (20-32); Glucose* 98 mg/dL (60-115)
== END 2022-05-09 08:01 | disposition home or self-care (01) ==
PROVIDERS: PCP Family Medicine; Visit Provider Family Medicine
DX: I10 Essential (primary) hypertension (principal)
CPT/HCPCS: 80048

== ENCOUNTER 2022-05-13 14:37 | Outpatient (RCR) | payer MEDICARE, SELFPAY ==
--- NOTE | 2022-05-24 11:04 | URNOTE ---
Received request for prior auth for Denosumab ([id number]). Per [facility] Injectable Drug Authorization List, this does not need prior authorization.
--- NOTE | 2022-05-24 15:33 | ONC.NURNOTE ---
Patient's denosumab is covered, but nursing unable to find dental clearance. Left message for patient to call back to discuss this.
== END 2022-11-09 23:59 | disposition home or self-care (01) ==
LOC: CCIC 14:37
PROVIDERS: PCP Family Medicine; Visit Provider Nurse Practitioner Family
DX: C50.911 Malignant neoplasm of unspecified site of right female breast (principal); Z17.0 Estrogen receptor positive status [ER+]; Z79.811 Long term (current) use of aromatase inhibitors; M81.0 Age-related osteoporosis without current pathological fracture
CPT/HCPCS: 99212; 99214

== ENCOUNTER 2022-11-16 07:31 | Outpatient (CLI) | payer MEDICARE, SELFPAY | END 2022-11-16 07:32 | disposition home or self-care (01) | LOC: NFLDREF 11-24 11:40 | PROVIDERS: PCP Family Medicine; Referring Provider Family Medicine; Visit Provider Family Medicine | DX: I10 Essential (primary) hypertension (principal); N18.9 Chronic kidney disease, unspecified; E78.5 Hyperlipidemia, unspecified; E03.9 Hypothyroidism, unspecified | CPT/HCPCS: 80053; 80061; 84443 ==

== ENCOUNTER 2022-12-21 09:00 | Outpatient (RCR) | payer MEDICARE, SELFPAY ==
[2022-12-21 09:01] VITALS: BP 83/54; PULSE 77; RESP 16; TEMP 35.7; O2SAT 96
[2022-12-21 09:19] VITALS: BP 90/56
[2022-12-21 09:55] LABS: Calcium* 8.9 mg/dL (8.4-10.6)
[2022-12-21] MEDS: DENOSUMAB 60 MG/ML SYRINGE SUBCUT (10:34)
--- NOTE | 2022-12-21 11:54 | PC.NURSE ---
Pt present for her first Prolia injection today at [facility]. Discussed the medication with pt including indication, administration, and side effects. Gave pt printed education from [facility]. Pt provided RN with verbal consent to this medication.
== END 2023-06-13 23:59 | disposition home or self-care (01) ==
LOC: CCIC 09:00
PROVIDERS: PCP Family Medicine; Referring Provider Family Medicine; Visit Provider Nurse Practitioner Family
DX: C50.911 Malignant neoplasm of unspecified site of right female breast (principal); Z17.0 Estrogen receptor positive status [ER+]; Z79.811 Long term (current) use of aromatase inhibitors; M81.0 Age-related osteoporosis without current pathological fracture
CPT/HCPCS: 36415; 82310; 96372; 99212; 99214; J0897

== ENCOUNTER 2023-01-10 10:58 | Outpatient (CLI) | payer MEDICARE, SELFPAY | END 2023-01-10 10:59 | disposition home or self-care (01) | PROVIDERS: PCP Family Medicine; Visit Provider Family Medicine | DX: D64.9 Anemia, unspecified (principal); I95.9 Hypotension, unspecified; I10 Essential (primary) hypertension; E78.5 Hyperlipidemia, unspecified | CPT/HCPCS: 80053; 84443 ==

== ENCOUNTER 2023-01-17 11:21 | Outpatient (CLI) | payer MEDICARE, SELFPAY | END 2023-01-17 11:22 | disposition home or self-care (01) | LOC: AMB 01-18 07:25 | PROVIDERS: PCP Family Medicine; Visit Provider Family Medicine | DX: R07.89 Other chest pain (principal) | CPT/HCPCS: A0425; A0427 ==

== ENCOUNTER 2023-01-17 11:51 | Emergency (ER) | payer MEDICARE, SELFPAY ==
[2023-01-17] VITALS (29 sets, daily range): BP systolic 136–169; BP diastolic 60–87; PULSE 81–97; RESP 16; TEMP 36.5; O2SAT 91–100; BMI 24.8
--- NOTE | 2023-01-17 12:25 | CRLHL7_ITS ---
For Patients: As a result of the Century Cures Act, medical imaging exams and procedure reports are released immediately into your electronic medical record. You may view this report before your referring provider. If you have questions, please contact your health care provider. INDICATION: Chest pain. TECHNIQUE: Chest 2 views. COMPARISON: Chest radiograph 06/03/2021. FINDINGS: No focal consolidation, pleural effusion, or pneumothorax. Pulmonary hyperinflation. Normal heart size and pulmonary vascularity. Aortic calcification. Dense mitral annulus calcifications. Surgical clips right breast and upper abdomen. The bones are unremarkable. IMPRESSION: No acute cardiopulmonary findings. Dictated by Maria Teresa Coppola MD @ 01/17/2023 1:31:11 PM (Electronically Signed)
[2023-01-17 12:45] LABS: Eosinophils Absolute Auto 0.17 K/uL (0.00-0.50); Eosinophils Percent Auto 2.9 % (0.0-7.0); Hematocrit 35.2 % (33.0-51.0); Hemoglobin* 10.9 gm/dL (12.0-16.0); Immature Granulocytes Abs Auto 0.02 K/uL (0.00-0.30); Immature Granulocytes Pct Auto 0.3 %; Lymphocytes Absolute Auto 1.82 K/uL (0.90-2.90); Lymphocytes Percent Auto 31.2 % (20-44); Mean Corpuscular HGB Conc 31 gm/dL (32-36); Mean Corpuscular Hemoglobin 28 pg (26-34); Mean Corpuscular Volume 91 fL (80-100); Monocytes Percent Auto 8.9 % (0.0-11.0); Neutrophils Percent Auto 56.7 % (42.0-72.0); Platelet Count* 182 K/uL (140-440); RDW Coefficient of Variation % 13.6 % (11.5-15.5); Red Blood Count 3.86 m/uL (4.00-5.20); White Blood Count* 5.83 K/uL (4.50-11.00)
[2023-01-17 12:51] LABS: Slide Review Reflex No
[2023-01-17 12:52] LABS: Chloride* 103 mmol/L (96-114); Potassium* 4.4 mmol/L (3.6-5.1); Sodium* 138 mmol/L (135-149)
[2023-01-17 12:55] LABS: Creatinine* 1.3 mg/dL (0.5-1.5); Est. Creatinine Clearance* 23.97; Estimated Glomerular Filt Rate 41 ml/min
[2023-01-17 12:56] LABS: Blood Urea Nitrogen* 23 mg/dL (7-30); Calcium* 9.2 mg/dL (8.4-10.6); Carbon Dioxide* 31 mmol/L (20-32); Glucose* 86 mg/dL (60-115); INR 0.88 (0.91-1.10); Prothrombin Time 12.5 Seconds
[2023-01-17 12:57] LABS: Partial Thromboplastin Time* 27 Seconds (23-33)
[2023-01-17 12:59] LABS: C Reactive Protein* < 0.5 mg/dL (0.5-1.0); D Dimer Quantitative* 2.09 ug/ml (0.00-0.50)
--- NOTE | 2023-01-17 13:06 | ED_ITS ---
HPI - Chest Pain General Date Seen: 01/17/23 Chief Complaint: Chest Pain Stated Complaint: Chest pain Time Seen by Provider: 01/17/23 11:58 Source: patient and EMS Mode of arrival: EMS Limitations: no limitations History of Present Illness HPI narrative: Patient is a very nice 82-year-old female presents here for evaluation of chest pain, this came on approximate 11 30 today after her doctor's appointment and she was home, she was resting in noted pain on the left side of her chest, that went through to her back and up to her neck, this lasted for approximately 5 minutes and then went away. Her who she told this about called EMS, and they came and got her she was not having chest pain, EMS gave her aspirin and brought to the emergency department, she feels very sheepish about being here, denies any exertional component to this, she has not been able to walk around with no chest pain leading up to this, denies any fevers chills or sweats, weight loss, previous history of coronary artery disease, or any heart issues at all. MD complaint: chest pain Prior episodes: No Onset: during rest Pain location: substernal and left chest Pain radiation: left arm, back and neck Severity: mild Quality: tightness and heaviness Relieving factors: nothing Exacerbating factors: nothing Treatment prior to arrival: aspirin Risk Factors Coronary artery disease risk factors: none Thoracic aortic dissection risk factors: none Related Data On Oral Contraceptives: No Home Medications Medication Instructions Recorded Confirmed anastrozole 1 mg tablet 1 mg PO QDAY 03/22/22 01/17/23 cholecalciferol (vitamin D3) 25 25 mcg PO QDAY 03/22/22 01/17/23 mcg (1,000 unit) capsule calcium 500 mg tablet 500 mg PO DAILY 12/21/22 01/17/23 Previous Rx's Medication Instructions Recorded Home Oxygen #1 ea 04/18/22 atorvastatin 40 mg tablet 40 mg PO .COMPLEX #90 tabs 11/22/22 tiotropium 2.5 mcg-olodaterol 2.5 2 inh inhalation Q24H #4 grams 11/22/22 mcg/actuation mist for inhalation (Stiolto Respimat) metoprolol succinate 25 mg 12.5 mg (1/2 x 25 mg) PO QDAY #90 01/17/23 tablet,extended release 24 hr tabs Allergies Allergy/AdvReac Type Severity Reaction Status Date / Time sulfamethoxazole Allergy Intermediate Hives Verified 01/17/23 14:32 [From Sulfamethoxazole-Trimethoprim] trimethoprim Allergy Intermediate Hives Verified 01/17/23 14:32 [From Sulfamethoxazole-Trimethoprim] Review of Systems Status of ROS Reports: 10 or more systems reviewed and unremarkable except as noted in History and below [facility] Medical History AAA (abdominal aortic aneurysm) ?I71.4 - Abdominal aortic aneurysm, without rupture (ICD-10) Echocardiogram abnormal (04/17/22) ?R93.1 - Abnormal findings on diagnostic imaging of heart and coronary circulation (ICD-10) 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) ?I05.9 - Rheumatic mitral valve disease, unspecified (ICD-10) Stress and adjustment reaction ?F43.29 - Adjustment disorder with other symptoms (ICD-10) Atherosclerotic peripheral vascular disease of extremity (2006) ?I70.209 - Unspecified atherosclerosis of [place] arteries of extremities, unspecified extremity (ICD-10) Acute on chronic respiratory failure with hypoxia and hypercapnia (~04/2022) ?J96.21 - Acute and chronic respiratory failure with hypoxia (ICD-10) ?J96.22 - Acute and chronic respiratory failure with hypercapnia (ICD-10) Chronic respiratory failure with hypercapnia ?J96.12 - Chronic respiratory failure with hypercapnia (ICD-10) Systolic murmur ?R01.1 - Cardiac murmur, unspecified (ICD-10) Hypoxia ?R09.02 - Hypoxemia (ICD-10) Internal hemorrhoids ?K64.8 - Other hemorrhoids (ICD-10) Vitamin D deficiency ?E55.9 - Vitamin D deficiency, unspecified (ICD-10) Personal history of colonic polyps ?Z86.010 - Personal history of colonic polyps (ICD-10) Hypertension ?I10 - Essential (primary) hypertension (ICD-10) Gastroesophageal reflux ?K21.9 - Gastro-esophageal reflux disease without esophagitis (ICD-10) Dyslipidemia ?E78.5 - Hyperlipidemia, unspecified (ICD-10) COPD, severe ?J44.9 - Chronic obstructive pulmonary disease, unspecified (ICD-10) Osteoporosis ?M81.0 - Age-related osteoporosis without current pathological fracture (ICD- 10) Breast cancer (2020) ?C50.919 - Malignant neoplasm of unspecified site of unspecified female breas t (ICD-10) Surgical History History of major vascular surgery (2006) ?Z98.890 - Other specified postprocedural states (ICD-10) Tubal ligation status ?Z98.51 - Tubal ligation status (ICD-10) History of bilateral cataract extraction (2017) ?Z98.41 - Cataract extraction status, right eye (ICD-10) ?Z98.42 - Cataract extraction status, left eye (ICD-10) History of lumpectomy of right breast (2020) ?Z98.890 - Other specified postprocedural states (ICD-10) Family History Family/Other Breast cancer Sister Stented coronary artery, Onset Age: 60 Social History Narrative: , 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, 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 Ex-smoker, quit 2021, hx 50 pack years Does not exercise Social drinker- 5/week Highest level of school completed/degree received: 10th grade Smoking Status: Former smoker What tobacco products do you use: cigarettes Smoking packs per day: 1 Smoking cigarettes per day: 20.0 Years smoked: 60 Smoking pack-years: 60.00 Smoking quit date/years: <= 15 years ago Do you use any of these nicotine containing products: None Second hand tobacco smoke exposure: No How often do you have a drink containing alcohol: monthly or less How many standard drinks containing alcohol do you have on a typical day: 1 or 2 How often do you have six or more drinks on one occasion: Never AUDIT-C Alcohol total score: 1 Non-prescribed substance use: denies use Caffeine: Yes (3 cups coffee daily) Little interest or pleasure in doing things: several days Feeling down, depressed, or hopeless: several days service: No Exam Narrative Exam Narrative: Patient is speaking normally, no problem with slurring words, oriented x3. Head eyes ears nose and throat exam show equal pupils, no scleral icterus, extraocular muscles are normal, no facial droop, speech is normal, trachea normal and midline. Thyroid normal midline palpable not enlarged. Chest shows symmetrical rise bilaterally, normal auscultation with no wheezes, no increased work of breathing, no overt bruising or lesions seen, no tenderness is noted on auscultation. Heart sounds are abnormal, with the left-sided murmur, through systole, radiating to the mitral area or left axilla. No clicks or gallops. Abdomen shows no obvious masses or hepatosplenomegaly, no organomegaly, bowel sounds are normal in all quadrants. No tenderness is noted also in all quadrants. Upper and lower extremities show normal power, normal range of motion, pulses are normal, sensations normal, fine motor movements are normal, pelvis is stable to rocking. Cervical spine shows normal range of motion, and palpably not tender. Thoracic spine shows normal range of motion, and palpably not tender, lumbar spine shows no tenderness to palpation percussion and is otherwise normal range of motion. Skin shows no rashes, petechiae or eccymosis. No edema is noted lower extremity she was all extremities independently well, cranial nerves 3-12 are normal. Const Vital Signs, click to edit/add: Vital Signs - 24 hr 01/17/23 11:53 01/17/23 11:56 01/17/23 11:59 Temperature 97.7 F Pulse Rate 97 97 Pulse Rate [Pulse Oximeter] 95 Respiratory Rate 16 Blood Pressure 166/81 H Blood Pressure [Left Upper Arm] 166/81 H Pulse Oximetry 93 96 95 Oxygen Delivery Method Nasal Cannula Nasal Cannula Oxygen Flow Rate 2 2 01/17/23 12:00 01/17/23 12:01 01/17/23 12:02 Temperature Pulse Rate 91 89 94 Pulse Rate [Pulse Oximeter] Respiratory Rate Blood Pressure 152/77 H 145/85 H Blood Pressure [Left Upper Arm] Pulse Oximetry 98 98 98 Oxygen Delivery Method Oxygen Flow Rate 01/17/23 12:15 01/17/23 12:30 01/17/23 12:32 Temperature Pulse Rate 97 96 88 Pulse Rate [Pulse Oximeter] Respiratory Rate Blood Pressure 145/60 H Blood Pressure [Left Upper Arm] Pulse Oximetry 95 95 96 Oxygen Delivery Method Nasal Cannula Oxygen Flow Rate 2 01/17/23 12:49 01/17/23 13:00 01/17/23 13:01 Temperature Pulse Rate 81 88 84 Pulse Rate [Pulse Oximeter] Respiratory Rate Blood Pressure 143/71 H Blood Pressure [Left Upper Arm] Pulse Oximetry 98 98 97 Oxygen Delivery Method Oxygen Flow Rate 01/17/23 13:15 01/17/23 13:30 01/17/23 13:32 Temperature Pulse Rate 83 84 91 Pulse Rate [Pulse Oximeter] Respiratory Rate Blood Pressure 136/71 Blood Pressure [Left Upper Arm] Pulse Oximetry 98 97 97 Oxygen Delivery Method Nasal Cannula Oxygen Flow Rate 2 01/17/23 13:45 01/17/23 14:00 01/17/23 14:01 Temperature Pulse Rate 86 91 92 Pulse Rate [Pulse Oximeter] Respiratory Rate Blood Pressure 146/85 H Blood Pressure [Left Upper Arm] Pulse Oximetry 96 99 99 Oxygen Delivery Method Oxygen Flow Rate 01/17/23 14:02 01/17/23 14:24 01/17/23 14:30 Temperature Pulse Rate 94 90 93 Pulse Rate [Pulse Oximeter] Respiratory Rate Blood Pressure Blood Pressure [Left Upper Arm] Pulse Oximetry 98 95 92 Oxygen Delivery Method Oxygen Flow Rate 01/17/23 14:41 01/17/23 14:45 01/17/23 15:00 Temperature Pulse Rate 87 90 85 Pulse Rate [Pulse Oximeter] Respiratory Rate Blood Pressure 139/67 Blood Pressure [Left Upper Arm] Pulse Oximetry 91 100 99 Oxygen Delivery Method Oxygen Flow Rate 01/17/23 15:02 01/17/23 15:15 01/17/23 15:30 Temperature Pulse Rate 91 86 87 Pulse Rate [Pulse Oximeter] Respiratory Rate Blood Pressure 154/85 H Blood Pressure [Left Upper Arm] Pulse Oximetry 99 99 97 Oxygen Delivery Method Oxygen Flow Rate 01/17/23 15:32 01/17/23 15:45 Temperature Pulse Rate 91 90 Pulse Rate [Pulse Oximeter] Respiratory Rate Blood Pressure 169/87 H Blood Pressure [Left Upper Arm] Pulse Oximetry 98 97 Oxygen Delivery Method Oxygen Flow Rate Documenting provider has reviewed patient's vital signs: yes Course Course Hospital Course: Patient had no further chest pain, she had 2 troponins that were negative, and her EKG showed no acute changes. Her chest CT did not show any evidence of either aortic dissection, dilatation or pulmonary embolism. I do however think that she needs some sort of a stress test, for risk stratification going out here, and we should set her up for a dobutamine stress echo. I Myoview dobutamine would be another option for her although she had pretty good windows when she was checked 2 years ago on her echo. Despite having severe COPD. I will have her take 81 mg of aspirin also, Vital Signs Vital signs: Initial Vital Signs Pulse Rate 97 01/17/23 11:53 Pulse Oximetry 93 01/17/23 11:53 Vital Signs Pulse Rate 97 01/17/23 11:53 Pulse Oximetry 93 01/17/23 11:53 Temperature 97.7 F 01/17/23 11:59 Pulse Rate 90 01/17/23 15:45 Respiratory Rate 16 01/17/23 11:59 Blood Pressure 169/87 H 01/17/23 15:32 Pulse Oximetry 97 01/17/23 15:45 Oxygen Delivery Method Nasal Cannula 01/17/23 13:30 Oxygen Flow Rate 2 01/17/23 13:30 MDM - Chest Pain MDM Narrative Medical decision making narrative: During the evaluation of this patient I considered multiple differential diagnosis is. The life-threatening differential diagnosis include coronary disease/DE, pulmonary embolism, pneumothorax, pneumonia, and aortic dissection. Other differential diagnosis included but were not limited to pericarditis, myocarditis, chest wall pain, GERD, esophageal rupture, rib fracture contusion, pleurisy, as well as other etiologies. Medical Records Data Attestation: I reviewed the patient's medical records. Lab Data Attestation: I reviewed the patient's lab results. Labs: Lab Results 01/17/23 01/17/23 01/17/23 Range/Units 12:13 12:25 14:12 WBC 5.83 (4.50-11.00) K/uL RBC 3.86 L (4.00-5.20) m/uL Hgb 10.9 L (12.0-16.0) gm/dL Hct 35.2 (33.0-51.0) % MCV 91 (80-100) fL MCH 28 (26-34) pg MCHC 31 L (32-36) gm/dL RDW Coeff of Chuckie 13.6 (11.5-15.5) % Plt Count 182 (140-440) K/uL Neut % (Auto) 56.7 (42.0-72.0) % Lymph % (Auto) 31.2 (20-44) % [place] % (Auto) 8.9 (0.0-11.0) % Eos % (Auto) 2.9 (0.0-7.0) % Baso % (Auto) 0.0 (0.0-3.0) % Neut # (Auto) 3.30 (1.7-7.0) K/uL Lymph # (Auto) 1.82 (0.90-2.90) K/uL [place] # (Auto) 0.50 (0.00-0.90) K/UL Eos # (Auto) 0.17 (0.00-0.50) K/uL Baso # (Auto) 0.00 (0.00-0.30) K/uL INR 0.88 L (0.91-1.10) APTT 27 (23-33) Seconds D-Dimer Quant (PE/DVT) 2.09 H (0.00-0.50) ug/ml Sodium 138 (135-149) mmol/L Potassium 4.4 (3.6-5.1) mmol/L Chloride 103 (96-114) mmol/L Carbon Dioxide 31 (20-32) mmol/L BUN 23 (7-30) mg/dL Creatinine 1.3 (0.5-1.5) mg/dL Estimated Creat Clear 23.97 Estimated GFR 41 ml/min Glucose 86 (60-115) mg/dL Calcium 9.2 (8.4-10.6) mg/dL C-Reactive Protein < 0.5 L (0.5-1.0) mg/dL NT-Pro-B Natriuret Pep 1830 pg/mL SARS-CoV-2 (PCR) Negative SARS-CoV-2 (Negative) Influenza Type A (PCR) Negative PCR FLU A (Negative) Influenza Type B (PCR) Negative PCR FLU B (Negative) RSV (PCR) Negative PCR RSV (Negative) POC Troponin I 0.01 0.00 L (0.01-0.04) ng/ml Imaging Data Chest x-ray: Attestation: I have reviewed the pertinent imaging results. My impression: No acute changes Radiologist's impression: atient: SHU CANDELARIO Facility:?[facility] Patient ID:?[id number] Site Patient ID:?[id number]. Site :?[id number] Study:?XRay Chest 2 views-01/17/2023 12:47:24 PM Ordering Physician:?Shaylee Polo Final Report: INDICATION: Chest pain. TECHNIQUE: Chest 2 views. COMPARISON: Chest radiograph 06/03/2021. FINDINGS: No focal consolidation, pleural effusion, or pneumothorax. Pulmonary hyperin flation. Normal heart size and pulmonary vascularity. Aortic calcification. Dense mitral annulus calcifications. Surgical clips right breast and upper abdomen. The bones are unremarkable. IMPRESSION: No acute cardiopulmonary findings. Dictated by Maria Teresa Coppola MD @ 01/17/2023 1:31:11 PM (Electronic Signature) atient: SHU CANDELARIO Facility:?[facility] Patient ID:?[id number] Site Patient ID:?[id number]. Site :?[id number] Study:?CT Chest Angio 95CC ISOVUE 370-01/17/2023 2:31:58 PM Ordering Physician:Puja Polo Final Report: INDICATION: Chest pain COMPARISON: April 16, 2022 TECHNIQUE: : CT examination of the chest was performed with the uneventful intravenous administration of 95 cc of Isovue 370 while thin axial sections were obtained from above the apices of the lungs to the lung bases. Please note that all CT scans at this facility use dose modulation, iterative reconstruction, and/or weight-based dosing when appropriate to reduce radiation dose to as low as reasonably achievable. FINDINGS: : HEART and MEDIASTINUM: The heart size is normal. There are dense atherosclerotic vascular and valvular calcifications. The atherosclerotic vascular calcifications including the coronary arteries and especially the aorta and great vessels. This cannot be further evaluated as this is a pulmonary arterial phase injection. Similar findings were noted previously PULMONARY ARTERIAL CIRCULATION: There is no visible intraluminal filling defect to suggest pulmonary embolus. LUNGS: Emphysema. Basilar opacities probably related atelectasis or scarring appearance in cluster tree-in-bud nodules and associated ground-glass opacity is noted in the superior segment of the right lower lobe, probably a mild inflammatory process PLEURAL SPACES: There is no pleural effusion, pneumothorax or pleural based mass. VISUALIZED UPPER ABDOMEN: Dense atherosclerotic vascular calcifications. Granulomatous calcifications of the spleen. Otherwise, the limited visualized upper abdominal structures appear normal. OSSEOUS STRUCTURES: Age-appropriate appearance. No acute fracture or destructive process. TUBES and LINES: None. IMPRESSION: 1. No evidence of pulmonary embolus. 2. Unusually dense diffuse atherosclerotic arterial vascular calcifications. 3. Emphysema. Basilar atelectasis. Small opacity in the superior segment of the right lower lobe probably a minimal inflammatory focus. No lobar consolidation or pleural disease. Please note that all CT scans at this facility use dose modulation, iterative reconstruction, and/or weight-based dosing when appropriate to reduce radiation dose to as low as reasonably achievable. Dictated by Thomas Osman MD @ 01/17/2023 3:33:14 PM (Electronic Signature) ECG Data Attestation: I personally reviewed and interpreted this ECG as follows: ECG interpretation date: 01/17/23 Prior ECG tracings: available for review Interpretation: EKG shows normal sinus rhythm normal EKG with no acute changes, QRS QTC and QTC are all normal. Assessment normal EKG with ventricular rate of 90 Discharge Plan Discharge Clinical Impression: COPD, severe, Chest pain Patient Disposition: Home w/ Parent or Adult Condition: Improved Instructions: Chest Pain (DC), Using Oxygen at Home (ED) Additional Instructions: Home rest aspirin 81 mg a day, follow-up for dobutamine stress echo, as an outpatient, return here if increasing chest pain shortness of breath or other issues. Prescriptions: No Action anastrozole 1 mg tablet 1 mg PO QDAY cholecalciferol (vitamin D3) 25 mcg (1,000 unit) capsule 25 mcg PO QDAY Stiolto Respimat 2.5-2.5 mcg/actuation mist 2 inh INHALATION Q24H Qty: 4 12RF atorvastatin 40 mg tablet 40 mg PO .COMPLEX Qty: 90 4RF Rx Instructions: 40 mg orally; metoprolol succinate 25 mg tablet extended release 24 hr 12.5 mg PO QDAY Qty: 90 0RF calcium 500 mg tablet 500 mg PO DAILY (DME) Home Oxygen Misc See Rx Instructions .Route Qty: 1 0RF Rx Instructions: 1 LPM NC at rest, 5 LPM NC with activity Follow Up/Referrals: Alethea Patterson MD [Primary Care Provider] - Stand Alone Forms: [facility] Info Instructions
[2023-01-17 13:13] LABS: Troponin, Point-of-Care* 0.01 ng/ml (0.01-0.04)
[2023-01-17 13:17] LABS: PCR FLU A Negative PCR FLU A (Negative); PCR FLU B Negative PCR FLU B (Negative); PCR RSV Negative PCR RSV (Negative)
[2023-01-17 13:18] LABS: SARS PCR* Negative SARS-CoV-2 (Negative)
--- NOTE | 2023-01-17 13:30 | CRLHL7_ITS ---
For Patients: As a result of the Century Cures Act, medical imaging exams and procedure reports are released immediately into your electronic medical record. You may view this report before your referring provider. If you have questions, please contact your health care provider. INDICATION: Chest pain COMPARISON: April 16, 2022 TECHNIQUE: : CT examination of the chest was performed with the uneventful intravenous administration of 95 cc of Isovue 370 while thin axial sections were obtained from above the apices of the lungs to the lung bases. Please note that all CT scans at this facility use dose modulation, iterative reconstruction, and/or weight-based dosing when appropriate to reduce radiation dose to as low as reasonably achievable. FINDINGS: : HEART and MEDIASTINUM: The heart size is normal. There are dense atherosclerotic vascular and valvular calcifications. The atherosclerotic vascular calcifications including the coronary arteries and especially the aorta and great vessels. This cannot be further evaluated as this is a pulmonary arterial phase injection. Similar findings were noted previously PULMONARY ARTERIAL CIRCULATION: There is no visible intraluminal filling defect to suggest pulmonary embolus. LUNGS: Emphysema. Basilar opacities probably related atelectasis or scarring appearance in cluster tree-in-bud nodules and associated ground-glass opacity is noted in the superior segment of the right lower lobe, probably a mild inflammatory process PLEURAL SPACES: There is no pleural effusion, pneumothorax or pleural based mass. VISUALIZED UPPER ABDOMEN: Dense atherosclerotic vascular calcifications. Granulomatous calcifications of the spleen. Otherwise, the limited visualized upper abdominal structures appear normal. OSSEOUS STRUCTURES: Age-appropriate appearance. No acute fracture or destructive process. TUBES and LINES: None. IMPRESSION: 1. No evidence of pulmonary embolus. 2. Unusually dense diffuse atherosclerotic arterial vascular calcifications. 3. Emphysema. Basilar atelectasis. Small opacity in the superior segment of the right lower lobe probably a minimal inflammatory focus. No lobar consolidation or pleural disease. Please note that all CT scans at this facility use dose modulation, iterative reconstruction, and/or weight-based dosing when appropriate to reduce radiation dose to as low as reasonably achievable. Dictated by Thomas Osman MD @ 01/17/2023 3:33:14 PM (Electronically Signed)
[2023-01-17] MEDS: 0.9 % SODIUM CHLORIDE 1000 ml 1,000 ML IV (13:38)
[2023-01-17 14:40] LABS: NT Pro B Type NatriureticPept* 1830 pg/mL
== END 2023-01-17 15:57 | disposition home or self-care (01) ==
PROVIDERS: Emergency Provider Family Medicine; PCP Family Medicine
DX: J44.9 Chronic obstructive pulmonary disease, unspecified (principal); R07.9 Chest pain, unspecified
CPT/HCPCS: 36415; 71046; 71260; 80048; 83880; 84484; 85025; 85379; 85610; 85730; 86140; 87631; 93005; 99284; 99285; J7030; Q9967

== ENCOUNTER 2023-01-19 14:42 | Outpatient (CLI) | payer MEDICARE, SELFPAY ==
--- NOTE | 2023-01-19 16:31 | ED.NURSE ---
preliminary pictures of u/s of her heart showed severe aortic stenosis per ech tech. per dr kamara has severe as and will not have dobutamine stress echo. order was obtained for a complete echo and to cancel stress test. was set up for dobutamine which was cancelled. dr kamara will get in touch with dr he.
--- NOTE | 2023-01-20 00:09 | ED_ITS ---
ED Chart Note Chart Note Details Date: 01/19/23 Details: Patient was presenting for us address dobutamine echo. During the preliminary visualization by the parking technician, concerning level of the aortic stenosis was noted. She had had a history of mild aortic stenosis in recent echo im aging. The preliminary area of the aortic valve was 0.8-0.9 on a couple separate readings per the computer field technician. Patient is resting EKG today was showing sinus rhythm, 99 beats per minute, no acute ischemic change. Her resting blood pressure was 147/85. It was felt that patient should proceed with a full formal echo prior to having a stress test. If she does have severe or significant aortic stenosis, this could precipitate ischemic change. I have ordered a full formal echo, we are cancelling her stress test. She will need to follow up with Cardiology. I will attempt to have staff contact her primary care provider to help her get this scheduled.
== END 2023-01-19 14:43 | disposition home or self-care (01) ==
PROVIDERS: PCP Family Medicine; Visit Provider Family Medicine
DX: R07.9 Chest pain, unspecified (principal); I51.7 Cardiomegaly; I34.0 Nonrheumatic mitral (valve) insufficiency
CPT/HCPCS: 93306

== ENCOUNTER 2023-05-19 10:45 | Outpatient (CLI) | payer MEDICARE, SELFPAY | END 2023-05-19 10:46 | disposition home or self-care (01) | LOC: NFLDREF 14:48 | PROVIDERS: PCP Family Medicine; Referring Provider Family Medicine; Visit Provider Family Medicine | DX: D64.9 Anemia, unspecified (principal); N18.9 Chronic kidney disease, unspecified; M81.0 Age-related osteoporosis without current pathological fracture; E53.8 Deficiency of other specified B group vitamins; E78.5 Hyperlipidemia, unspecified; I10 Essential (primary) hypertension | CPT/HCPCS: 80053; 82306; 82607; 82728 ==

== ENCOUNTER 2023-06-14 07:58 | Outpatient (CLI) | payer MEDICARE, SELFPAY ==
--- NOTE | 2023-06-14 08:15 | CRLHL7_ITS ---
For Patients: As a result of the Century Cures Act, medical imaging exams and procedure reports are released immediately into your electronic medical record. You may view this report before your referring provider. If you have questions, please contact your health care provider. BILATERAL SCREENING MAMMOGRAM WITH COMPUTER-AIDED DETECTION AND TOMOSYNTHESIS TECHNIQUE: CC and MLO views were obtained. These mammographic images have been obtained using full-field digital technique. These mammographic images were interpreted with the benefit of computer-aided detection. Breast Tomosynthesis was used in this interpretation. COMPARISON FILM: 05/04/22, 04/26/21, 09/30/19. FINDINGS: There are scattered areas of fibroglandular density IMPRESSION: There is no radiographic evidence for malignancy. ASSESSMENT: BI-RADS Category 1: Negative RECOMMENDATION: Routine screening mammogram in 1 year. A lay language report of this examination will be provided to the patient. Julius Navarro M.D. Diagnostic Radiologist [email or web address] [place]EPHANIE/Dictated by: Julius Navarro MD @ 06/14/2023 12:16:00 PM (Electronically Signed)
== END 2023-06-14 07:59 | disposition home or self-care (01) ==
LOC: MAMMO 07:59
PROVIDERS: PCP Family Medicine; Visit Provider Family Medicine
DX: Z12.31 Encounter for screening mammogram for malignant neoplasm of breast (principal)
CPT/HCPCS: 77063; 77067

== ENCOUNTER 2023-07-01 18:49 | Emergency (ER) | payer MEDICARE, SELFPAY ==
[2023-07-01 18:53] VITALS: BP 150/63; PULSE 111; RESP 18; TEMP 36.4; O2SAT 96; BMI 25.2
--- NOTE | 2023-07-01 20:35 | ED.ABDPAIN ---
HPI - Abdominal Pain General Time Seen by Provider: 20:35 <Arina Espinoza MD - Last Filed: 07/02/23 00:08> Date Seen: 07/01/23 <Arina Espinoza MD - Last Filed: 07/02/23 00:08> Chief Complaint: Abdominal Pain <Arina Espinoza MD - Last Filed: 07/02/23 00:08> Stated Complaint: stomach pain <Arina Espinoza MD - Last Filed: 07/02/23 00:08> Time Seen by Provider: 07/01/23 20:35 <Arina Espinoza MD - Last Filed: 07/02/23 00:08> Source: patient, family, RN notes reviewed and old records reviewed <Arina Espinoza MD - Last Filed: 07/02/23 00:08> Mode of arrival: ambulatory <Arina Espinoza MD - Last Filed: 07/02/23 00:08> Limitations: no limitations <Arina Espinoza MD - Last Filed: 07/02/23 00:08> History of Present Illness HPI narrative: Sol is a very pleasant 82-year-old female with a history of breast cancer status post lumpectomy, radiation and currently on anastrozole, history of COPD on 2 L nasal cannula oxygen chronically along with inhalers who comes to the emergency room with complaints of abdominal pain. Patient notes that she had abdominal pain at last evening and describes it as being across the lower 3rd of her abdomen. It has continued but is now located in the right lower quadrant. She notes no painful urination or fever but does describe some chills. She notes that laughing or moving increases her pain. For instance a hitting the pothole while riding in the car greatly increased her pain. She is most comfortable not moving. She has not taken anything for pain at this point. She has had no previous abdominal surgeries and denies a history of diverticulitis, colitis. She had 2 episodes of nausea earlier today but she did not vomit. She has had 2 normal bowel movements today and denies any constipation or diarrhea. No blood in her stool. She is not currently on any blood thinners. Patient's tells me that because of her COPD she did see a [facility] physician but the and conclusion is that she could not undergo surgery for her breast cancer. Instead she underwent lumpectomy radiation and is currently on oral medication. She denies changes in her overall breathing or respiratory status and denies a sore throat or runny nose. <Arina Espinoza MD - Last Filed: 07/02/23 00:08> Related Data Home Medications: Home Medications Medication Instructions Recorded Confirmed cholecalciferol (vitamin D3) 25 25 mcg PO QDAY 03/22/22 06/22/23 mcg (1,000 unit) capsule calcium 500 mg tablet 500 mg PO DAILY 12/21/22 06/22/23 atorvastatin 40 mg tablet 40 mg PO ONCE 02/03/23 06/22/23 aspirin 81 mg tablet,delayed 81 mg PO QDAY 04/12/23 06/22/23 release (Adult Low Dose Aspirin) Previous Rx's Medication Instructions Recorded Home Oxygen #1 ea 04/18/22 tiotropium 2.5 mcg-olodaterol 2.5 2 inh inhalation Q24H #4 grams 11/22/22 mcg/actuation mist for inhalation (Stiolto Respimat) cyanocobalamin (vitamin B-12) 1,000 mcg PO QDAY #90 tabs 05/25/23 1,000 mcg tablet (Vitamin B-12) anastrozole 1 mg tablet 1 mg PO QDAY #90 tabs 06/22/23 <Arina Espinoza MD - Last Filed: 07/02/23 00:08> Allergies/Adverse Reactions: Allergies Allergy/AdvReac Type Severity Reaction Status Date / Time sulfamethoxazole Allergy Intermediate Hives Verified 06/22/23 11:55 [From Sulfamethoxazole-Trimethoprim] trimethoprim Allergy Intermediate Hives Verified 06/22/23 11:55 [From Sulfamethoxazole-Trimethoprim] <Arina Espinoza MD - Last Filed: 07/02/23 00:08> Review of Systems Status of ROS Reports: 10 or more systems reviewed and unremarkable except as noted in History and below <Arina Espinoza MD - Last Filed: 07/02/23 00:08> Const Reports: chills; Denies: fever or fatigue <Arina Espinoza MD - Last Filed: 07/02/23 00:08> ENMT Denies: neck pain, throat swelling, difficulty swallowing or hoarseness <Arina Espinoza MD - Last Filed: 07/02/23 00:08> Cardio Reports: shortness of breath with exertion (Chronic); Denies: chest pain, palpitations, swelling of feet/ankles or lightheadedness <Arina Espinoza MD - Last Filed: 07/02/23 00:08> Resp Reports: shortness of breath (Chronic) and cough (Chronic); Denies: wheezing or stridor <Arina Espinoza MD - Last Filed: 07/02/23 00:08> GI Reports: abdominal pain and nausea; Denies: vomiting, diarrhea, constipation, difficulty swallowing or blood in stool <Arina Espinoza MD - Last Filed: 07/02/23 00:08> Denies: painful urination, urinary frequency or urinary urgency <Arina Espinoza MD - Last Filed: 07/02/23 00:08> Musculo Denies: back pain, neck pain or extremity pain <Arina Espinoza MD - Last Filed: 07/02/23 00:08> Endo Denies: fatigue <Arina Espinoza MD - Last Filed: 07/02/23 00:08> Allergy/Immuno Denies: throat swelling or wheezing <Arina Espinoza MD - Last Filed: 07/02/23 00:08> [facility] Medical History: Medical History AAA (abdominal aortic aneurysm) ?I71.4 - Abdominal aortic aneurysm, without rupture (ICD-10) Echocardiogram abnormal (04/17/22) ?R93.1 - Abnormal findings on diagnostic imaging of heart and coronary circulation (ICD-10) 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) ?I05.9 - Rheumatic mitral valve disease, unspecified (ICD-10) Stress and adjustment reaction ?F43.29 - Adjustment disorder with other symptoms (ICD-10) Atherosclerotic peripheral vascular disease of extremity (2006) ?I70.209 - Unspecified atherosclerosis of [place] arteries of extremities, unspecified extremity (ICD-10) Acute on chronic respiratory failure with hypoxia and hypercapnia (~04/2022) ?J96.21 - Acute and chronic respiratory failure with hypoxia (ICD-10) ?J96.22 - Acute and chronic respiratory failure with hypercapnia (ICD-10) Chronic respiratory failure with hypercapnia ?J96.12 - Chronic respiratory failure with hypercapnia (ICD-10) Systolic murmur ?R01.1 - Cardiac murmur, unspecified (ICD-10) Hypoxia ?R09.02 - Hypoxemia (ICD-10) Internal hemorrhoids ?K64.8 - Other hemorrhoids (ICD-10) Vitamin D deficiency ?E55.9 - Vitamin D deficiency, unspecified (ICD-10) Personal history of colonic polyps ?Z86.010 - Personal history of colonic polyps (ICD-10) Hypertension ?I10 - Essential (primary) hypertension (ICD-10) Gastroesophageal reflux ?K21.9 - Gastro-esophageal reflux disease without esophagitis (ICD-10) Dyslipidemia ?E78.5 - Hyperlipidemia, unspecified (ICD-10) COPD, severe ?J44.9 - Chronic obstructive pulmonary disease, unspecified (ICD-10) Osteoporosis ?M81.0 - Age-related osteoporosis without current pathological fracture (ICD-10) Breast cancer (2020) ?C50.919 - Malignant neoplasm of unspecified site of unspecified female breast (ICD-10) <Arina Espinoza MD - Last Filed: 07/02/23 00:08> Surgical History: Surgical History History of major vascular surgery (2006) ?Z98.890 - Other specified postprocedural states (ICD-10) Tubal ligation status ?Z98.51 - Tubal ligation status (ICD-10) History of bilateral cataract extraction (2017) ?Z98.41 - Cataract extraction status, right eye (ICD-10) ?Z98.42 - Cataract extraction status, left eye (ICD-10) History of lumpectomy of right breast (2020) ?Z98.890 - Other specified postprocedural states (ICD-10) <Arina Espinoza MD - Last Filed: 07/02/23 00:08> Family History: Family History Family/Other Breast cancer Sister Stented coronary artery, Onset Age: 60 <Arina Espinoza MD - Last Filed: 07/02/23 00:08> Social History: Social History Narrative: , 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, 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 Ex-smoker, quit 2021, hx 50 pack years Does not exercise Social drinker- 5/week Highest level of school completed/degree received: 10th grade Smoking Status: Former smoker What tobacco products do you use: cigarettes Smoking packs per day: 1 Smoking cigarettes per day: 20.0 Years smoked: 60 Smoking pack-years: 60.00 Smoking quit date/years: <= 15 years ago Do you use any of these nicotine containing products: None Second hand tobacco smoke exposure: No How often do you have a drink containing alcohol: 2-3 times a week AUDIT-C Alcohol total score: 3 Non-prescribed substance use: denies use Caffeine: Yes (3 cups coffee daily) Little interest or pleasure in doing things: several days Feeling down, depressed, or hopeless: several days service: No <Arina Espinoza MD - Last Filed: 07/02/23 00:08> Exam Narrative: Exam Narrative: Sol is alert and oriented. She is minimally breathless and is able to complete sentences and occasionally laugh. However laughing does increase her abdominal pain. External ears eyes nose clear. Heart with regular rate and rhythm and lungs are with breath sounds bilaterally. Slightly decreased in the lung bases. But no wheezing or crackles. Abdomen is soft she has acute tenderness in the right lower quadrant with rebound pain. I do not palpate any bulging or there is no suggestion of a hernia in this area. No bloating there is no distension. Bowel sounds are present. Lower extremities with skin changes consistent with venous stasis. No swelling no edema. She is able to move all extremities and was able to put herself in a supine position on the examining table. <Arina Espinoza MD - Last Filed: 07/02/23 00:08> Const: Vital Signs, click to edit/add: Vital Signs - 24 hr 07/01/23 18:53 07/02/23 00:00 07/02/23 01:20 Temperature 97.6 F Pulse Rate Pulse Rate [Pulse Oximeter] 111 H 97 108 H Respiratory Rate 18 Blood Pressure Blood Pressure [Ri ght Upper Arm] 150/63 H Pulse Oximetry 96 98 97 Oxygen Delivery Me thod Nasal Cannula Nasal Cannula Nasal Cannula Oxygen Flow Rate 2 2 07/02/23 01:49 07/02/23 01:53 07/02/23 01:54 Temperature Pulse Rate 95 100 97 Pulse Rate [Pulse Oximeter] Respiratory Rate Blood Pressure 88/60 L 112/52 L Blood Pressure [Ri ght Upper Arm] Pulse Oximetry 98 98 97 Oxygen Delivery Me thod Nasal Cannula Nasal Cannula Oxygen Flow Rate 2 2 07/02/23 01:55 07/02/23 02:00 07/02/23 02:02 Temperature Pulse Rate 97 93 86 Pulse Rate [Pulse Oximeter] Respiratory Rate Blood Pressure 96/47 L Blood Pressure [Ri ght Upper Arm] Pulse Oximetry 97 98 98 Oxygen Delivery Me thod Oxygen Flow Rate 07/02/23 02:13 07/02/23 02:15 07/02/23 02:22 Temperature Pulse Rate 87 95 85 Pulse Rate [Pulse Oximeter] Respiratory Rate Blood Pressure 102/57 L 103/48 L Blood Pressure [Ri ght Upper Arm] Pulse Oximetry 98 94 99 Oxygen Delivery Me thod Oxygen Flow Rate 07/02/23 02:30 07/02/23 02:41 07/02/23 02:45 Temperature Pulse Rate 86 85 99 Pulse Rate [Pulse Oximeter] Respiratory Rate Blood Pressure 95/58 L Blood Pressure [Ri ght Upper Arm] Pulse Oximetry 99 99 98 Oxygen Delivery Me thod Oxygen Flow Rate 07/02/23 03:00 07/02/23 03:02 07/02/23 03:15 Temperature Pulse Rate 96 96 96 Pulse Rate [Pulse Oximeter] Respiratory Rate Blood Pressure 104/47 L Blood Pressure [Ri ght Upper Arm] Pulse Oximetry 97 96 93 Oxygen Delivery Me thod Oxygen Flow Rate 07/02/23 03:21 07/02/23 03:30 07/02/23 03:39 Temperature Pulse Rate 99 105 H 101 H Pulse Rate [Pulse Oximeter] Respiratory Rate Blood Pressure 83/47 L 89/55 L Blood Pressure [Ri ght Upper Arm] Pulse Oximetry 93 98 98 Oxygen Delivery Me thod Oxygen Flow Rate 07/02/23 03:41 07/02/23 03:45 07/02/23 04:00 Temperature Pulse Rate 99 99 99 Pulse Rate [Pulse Oximeter] Respiratory Rate Blood Pressure 88/55 L Blood Pressure [Ri ght Upper Arm] Pulse Oximetry 98 97 96 Oxygen Delivery Me thod Oxygen Flow Rate 07/02/23 04:01 Temperature Pulse Rate 102 H Pulse Rate [Pulse Oximeter] Respiratory Rate Blood Pressure 98/56 L Blood Pressure [Ri ght Upper Arm] Pulse Oximetry 95 Oxygen Delivery Me thod Oxygen Flow Rate <Arina Espinoza MD - Last Filed: 07/02/23 00:08> Vital Signs, click to edit/add: Vital Signs - 24 hr 07/01/23 18:53 07/02/23 00:00 07/02/23 01:20 Temperature 97.6 F Pulse Rate Pulse Rate [Pulse Oximeter] 111 H 97 108 H Respiratory Rate 18 Blood Pressure Blood Pressure [Ri ght Upper Arm] 150/63 H Pulse Oximetry 96 98 97 Oxygen Delivery Me thod Nasal Cannula Nasal Cannula Nasal Cannula Oxygen Flow Rate 2 2 07/02/23 01:49 07/02/23 01:53 07/02/23 01:54 Temperature Pulse Rate 95 100 97 Pulse Rate [Pulse Oximeter] Respiratory Rate Blood Pressure 88/60 L 112/52 L Blood Pressure [Ri ght Upper Arm] Pulse Oximetry 98 98 97 Oxygen Delivery Me thod Nasal Cannula Nasal Cannula Oxygen Flow Rate 2 2 07/02/23 01:55 07/02/23 02:00 07/02/23 02:02 Temperature Pulse Rate 97 93 86 Pulse Rate [Pulse Oximeter] Respiratory Rate Blood Pressure 96/47 L Blood Pressure [Ri ght Upper Arm] Pulse Oximetry 97 98 98 Oxygen Delivery Me thod Oxygen Flow Rate 07/02/23 02:13 07/02/23 02:15 07/02/23 02:22 Temperature Pulse Rate 87 95 85 Pulse Rate [Pulse Oximeter] Respiratory Rate Blood Pressure 102/57 L 103/48 L Blood Pressure [Ri ght Upper Arm] Pulse Oximetry 98 94 99 Oxygen Delivery Me thod Oxygen Flow Rate 07/02/23 02:30 07/02/23 02:41 07/02/23 02:45 Temperature Pulse Rate 86 85 99 Pulse Rate [Pulse Oximeter] Respiratory Rate Blood Pressure 95/58 L Blood Pressure [Ri ght Upper Arm] Pulse Oximetry 99 99 98 Oxygen Delivery Me thod Oxygen Flow Rate 07/02/23 03:00 07/02/23 03:02 07/02/23 03:15 Temperature Pulse Rate 96 96 96 Pulse Rate [Pulse Oximeter] Respiratory Rate Blood Pressure 104/47 L Blood Pressure [Ri ght Upper Arm] Pulse Oximetry 97 96 93 Oxygen Delivery Me thod Oxygen Flow Rate 07/02/23 03:21 07/02/23 03:30 07/02/23 03:39 Temperature Pulse Rate 99 105 H 101 H Pulse Rate [Pulse Oximeter] Respiratory Rate Blood Pressure 83/47 L 89/55 L Blood Pressure [Ri ght Upper Arm] Pulse Oximetry 93 98 98 Oxygen Delivery Me thod Oxygen Flow Rate 07/02/23 03:41 07/02/23 03:45 07/02/23 04:00 Temperature Pulse Rate 99 99 99 Pulse Rate [Pulse Oximeter] Respiratory Rate Blood Pressure 88/55 L Blood Pressure [Ri ght Upper Arm] Pulse Oximetry 98 97 96 Oxygen Delivery Me thod Oxygen Flow Rate 07/02/23 04:01 Temperature Pulse Rate 102 H Pulse Rate [Pulse Oximeter] Respiratory Rate Blood Pressure 98/56 L Blood Pressure [Ri ght Upper Arm] Pulse Oximetry 95 Oxygen Delivery Me thod Oxygen Flow Rate <Mayank Hammer MD - Last Filed: 07/02/23 04:16> Documenting provider has reviewed patient's vital signs: yes <Arina Espinoza MD - Last Filed: 07/02/23 00:08> Course Course ED Course: Differential diagnosis includes but is not limited to appendicitis, colitis, internal hernia, small-bowel obstruction, ureteral colic/nephrolithiasis, metastases, urinary tract infection, pyelonephritis, UTI. Will place IV give 500 mL normal saline as well as 4 mg of IV Zofran. Would like patient to undergo CT but will check creatinine 1st as well as other labs to include CBC, comprehensive, CRP, urinalysis. Patient declines any pain medication at this time. <rAina Espinoza MD - Last Filed: 07/02/23 00:08> Reevaluation(s) Time of Reevaluation #1: 00:31 <Mayank Hammer MD - Last Filed: 07/02/23 04:16> Reevaluation #1: CT abd/pelvis demonstrates uncomplicated appendicitis. Zosyn ordered. Discussed with Dr. Chavarria who reviewed patient chart and feels patient is too high risk for anesthesia at [facility]. Discussed with patient and spouse, will check [facility] for transfer for surgery. <Mayank Hammer MD - Last Filed: 07/02/23 04:16> Time of Reevaluation #2: 01:41 <Mayank Hammer MD - Last Filed: 07/02/23 04:16> Reevaluation #2: Care discussed with Dr. Mckeon, hospitalist who accepts patient for transfer. Will wait for [facility] to call back with bed availability prior to transfer. Patient remains tachycardic, initial IV fluids are ordered. <Mayank Hammer MD - Last Filed: 07/02/23 04:16> Time of Reevaluation #3: 02:17 <Mayank Hammer MD - Last Filed: 07/02/23 04:16> Reevaluation #3: Patient had transient episode of hypotension after walking to the bathroom, mentating appropriately, laughing and paying bills in her room, denies increased pain or other symptoms. Repeat CBC independently interpreted by me demonstrates slight drop in hemoglobin no other acute findings. Lactate is pending and continue close monitoring. <Mayank Hammer MD - Last Filed: 07/02/23 04:16> Additional Reevaluation(s): 2:59 a.m. heart rate is improved but patient is remained hypotensive. Additional IV fluid boluses ordered. Lactate was reassuring at 0.6 but given progressive hypotension, concern for impending sepsis. Patient is still mentating appropriately. Will evaluate response to additional fluids and may need to initiate ED to ED transfer. 3:22 a.m. Patient did respond transiently to fluid bolus with improved pressures to 104/74 but now 83/43 again. Additional fluid bolus ordered and will contact [facility] to arrange urgent transfer. Patient signed out to me by Dr. Ashford. Initially presented with low abdominal pain starting yesterday that localized to the right lower quadrant. Labs with normal white blood cell count although left shift, CRP normal, CT scan consistent with acute appendicitis. Patient was initially tachycardic with heart rate in the 110s and blood pressure is 140s -150s over 60-70s. Patient was accepted for delayed transfer to [place] and will need preoperative clearance. In the interim, patient did become hypotensive with pressures 88/68. Repeat labs showed normal white blood cell count and lactate of 0.6. Normal saline 500 mL bolus was ordered and patient did have brief response to this with improvement of pressure to map of 72. Subsequently again dropped to map of 63. Additional IV fluid boluses ordered although patient is almost up to her 30 milliliter/kilos bolus. Patient will be started on Levophed. Updated Dr. Mckeon hospitalist at [facility] regarding change in patient condition. 3:46 a.m. care discussed with Dr. Dixon at [place] ED. 4:15 a.m. patient transferred to [place]. <Mayank Hammer MD - Last Filed: 07/02/23 04:16> Vital Signs Vital signs: Initial Vital Signs Temperature 97.6 F 07/01/23 18:53 Temperature Source Temporal Artery Scan 07/01/23 18:53 Pulse Rate 111 H 07/01/23 18:53 Respiratory Rate 18 07/01/23 18:53 Blood Pressure 150/63 H 07/01/23 18:53 Blood Pressure Mean 92 07/01/23 18:53 Blood Pressure Position Supine 07/01/23 18:53 Pulse Oximetry 96 07/01/23 18:53 Oxygen Delivery Method Nasal Cannula 07/01/23 18:53 Vital Signs Temperature 97.6 F 07/01/23 18:53 Pulse Rate 111 H 07/01/23 18:53 Respiratory Rate 18 07/01/23 18:53 Blood Pressure 150/63 H 07/01/23 18:53 Pulse Oximetry 96 07/01/23 18:53 Oxygen Delivery Method Nasal Cannula 07/01/23 18:53 Temperature 97.6 F 07/01/23 18:53 Pulse Rate 102 H 07/02/23 04:01 Respiratory Rate 18 07/01/23 18:53 Blood Pressure 98/56 L 07/02/23 04:01 Pulse Oximetry 95 07/02/23 04:01 Oxygen Delivery Method Nasal Cannula 07/02/23 01:54 Oxygen Flow Rate 2 07/02/23 01:54 <Arina Espinoza MD - Last Filed: 07/02/23 00:08> Initial Vital Signs Temperature 97.6 F 07/01/23 18:53 Temperature Source Temporal Artery Scan 07/01/23 18:53 Pulse Rate 111 H 07/01/23 18:53 Respiratory Rate 18 07/01/23 18:53 Blood Pressure 150/63 H 07/01/23 18:53 Blood Pressure Mean 92 07/01/23 18:53 Blood Pressure Position Supine 07/01/23 18:53 Pulse Oximetry 96 07/01/23 18:53 Oxygen Delivery Method Nasal Cannula 07/01/23 18:53 Vital Signs Temperature 97.6 F 07/01/23 18:53 Pulse Rate 111 H 07/01/23 18:53 Respiratory Rate 18 07/01/23 18:53 Blood Pressure 150/63 H 07/01/23 18:53 Pulse Oximetry 96 07/01/23 18:53 Oxygen Delivery Method Nasal Cannula 07/01/23 18:53 Temperature 97.6 F 07/01/23 18:53 Pulse Rate 102 H 07/02/23 04:01 Respiratory Rate 18 07/01/23 18:53 Blood Pressure 98/56 L 07/02/23 04:01 Pulse Oximetry 95 07/02/23 04:01 Oxygen Delivery Method Nasal Cannula 07/02/23 01:54 Oxygen Flow Rate 2 07/02/23 01:54 <Mayank Hammer MD - Last Filed: 07/02/23 04:16> MDM - Abdominal Pain MDM Narrative Medical decision making narrative: 1. Abdominal pain-at this time patient has a reassuring white count and CRP. Her exam in history strongly suggest appendicitis. Awaiting radiological over-read of abdominal CT. 2. Oxygen dependent COPD-stable. 3. Breast cancer 4. Disposition -this patient is signed out to my partner Dr. Hammer for radiological review and disposition. <Arina Espinoza MD - Last Filed: 07/02/23 00:08> Medical Records Attestation: I reviewed the patient's medical records. <Arina Espinoza MD - Last Filed: 07/02/23 00:08> Lab Data Attestation: I reviewed the patient's lab results. <Arina Espinoza MD - Last Filed: 07/02/23 00:08> Labs: Lab Results 07/01/23 07/01/23 07/02/23 Range/Units 20:55 21:00 01:44 WBC 10.85 10.15 (4.50-11.00) K/uL RBC 4.39 3.81 L (4.00-5.20) m/uL Hgb 12.0 10.5 L (12.0-16.0) gm/dL Hct 39.3 34.3 (33.0-51.0) % MCV 90 90 (80-100) fL MCH 27 28 (26-34) pg MCHC 31 L 31 L (32-36) gm/dL RDW Coeff of Chuckie 13.6 13.8 (11.5-15.5) % Plt Count 213 170 (140-440) K/uL Neut % (Auto) 83.6 H 80.4 H (42.0-72.0) % Lymph % (Auto) 10.6 L 12.6 L (20-44) % [place] % (Auto) 5.3 6.3 (0.0-11.0) % Eos % (Auto) 0.3 0.3 (0.0-7.0) % Baso % (Auto) 0.1 0.2 (0.0-3.0) % Neut # (Auto) 9.10 H 8.20 H (1.7-7.0) K/uL Lymph # (Auto) 1.20 1.30 (0.90-2.90) K/uL [place] # (Auto) 0.60 0.60 (0.00-0.90) K/UL Eos # (Auto) 0.03 0.03 (0.00-0.50) K/uL Baso # (Auto) 0.01 0.02 (0.00-0.30) K/uL Abs Immat Gran (auto) 0.01 0.02 (0.00-0.30) K/uL Imm/Tot Granulo (auto) 0.1 0.2 % INR 0.93 (0.91-1.10) Sodium 135 (135-149) mmol/L Potassium 4.1 (3.6-5.1) mmol/L Chloride 97 (96-114) mmol/L Carbon Dioxide 29 (20-32) mmol/L Anion Gap 9 (7-15) mEq/L BUN 27 (7-30) mg/dL Creatinine 1.1 (0.5-1.5) mg/dL Estimated Creat Clear 28.32 Estimated GFR 50 ml/min Glucose 112 (60-115) mg/dL Lactate 0.6 (0.5-1.9) mmol/L Calcium 9.3 (8.4-10.6) mg/dL Total Bilirubin 0.8 (0.1-1.5) mg/dL AST 30 (12-35) U/L ALT 22 (4-35) U/L Alkaline Phosphatase 88 (40-150) U/L C-Reactive Protein < 0.5 L (0.5-1.0) mg/dL Total Protein 7.5 (6.0-8.3) g/dL Albumin 4.3 (3.3-5.0) g/dL Lipase 41 (23-300) U/L Urine Color Yellow (Yellow) Urine Appearance Clear (Clear) Urine pH 6.0 (5.0-8.5) Ur Specific [place] 1.020 (1.000-1.030) Urine Protein Trace A (Negative) Urine Glucose (UA) Negative (Negative) Urine Ketones 2+ A (Negative) Urine Blood 1+ A (Negative) Urine Nitrite Negative (Negative) Urine Bilirubin Negative (Negative) Urine Urobilinogen 0.2 (0.2-1.0) Ur Leukocyte Esterase 1+ A (Negative) Urine RBC 0-2 (0-2) Urine WBC 2-5 (0-5) Urine WBC Clumps None (None) Ur Squamous Epith Cells Few (None-Few) Urine Bacteria Few A (None) Lab Acknowledgement Test Added <Arina Espinoza MD - Last Filed: 07/02/23 00:08> Lab Results 07/01/23 07/01/23 07/02/23 Range/Units 20:55 21:00 01:44 WBC 10.85 10.15 (4.50-11.00) K/uL RBC 4.39 3.81 L (4.00-5.20) m/uL Hgb 12.0 10.5 L (12.0-16.0) gm/dL Hct 39.3 34.3 (33.0-51.0) % MCV 90 90 (80-100) fL MCH 27 28 (26-34) pg MCHC 31 L 31 L (32-36) gm/dL RDW Coeff of Chuckie 13.6 13.8 (11.5-15.5) % Plt Count 213 170 (140-440) K/uL Neut % (Auto) 83.6 H 80.4 H (42.0-72.0) % Lymph % (Auto) 10.6 L 12.6 L (20-44) % [place] % (Auto) 5.3 6.3 (0.0-11.0) % Eos % (Auto) 0.3 0.3 (0.0-7.0) % Baso % (Auto) 0.1 0.2 (0.0-3.0) % Neut # (Auto) 9.10 H 8.20 H (1.7-7.0) K/uL Lymph # (Auto) 1.20 1.30 (0.90-2.90) K/uL [place] # (Auto) 0.60 0.60 (0.00-0.90) K/UL Eos # (Auto) 0.03 0.03 (0.00-0.50) K/uL Baso # (Auto) 0.01 0.02 (0.00-0.30) K/uL Abs Immat Gran (auto) 0.01 0.02 (0.00-0.30) K/uL Imm/Tot Granulo (auto) 0.1 0.2 % INR 0.93 (0.91-1.10) Sodium 135 (135-149) mmol/L Potassium 4.1 (3.6-5.1) mmol/L Chloride 97 (96-114) mmol/L Carbon Dioxide 29 (20-32) mmol/L Anion Gap 9 (7-15) mEq/L BUN 27 (7-30) mg/dL Creatinine 1.1 (0.5-1.5) mg/dL Estimated Creat Clear 28.32 Estimated GFR 50 ml/min Glucose 112 (60-115) mg/dL Lactate 0.6 (0.5-1.9) mmol/L Calcium 9.3 (8.4-10.6) mg/dL Total Bilirubin 0.8 (0.1-1.5) mg/dL AST 30 (12-35) U/L ALT 22 (4-35) U/L Alkaline Phosphatase 88 (40-150) U/L C-Reactive Protein < 0.5 L (0.5-1.0) mg/dL Total Protein 7.5 (6.0-8.3) g/dL Albumin 4.3 (3.3-5.0) g/dL Lipase 41 (23-300) U/L Urine Color Yellow (Yellow) Urine Appearance Clear (Clear) Urine pH 6.0 (5.0-8.5) Ur Specific [place] 1.020 (1.000-1.030) Urine Protein Trace A (Negative) Urine Glucose (UA) Negative (Negative) Urine Ketones 2+ A (Negative) Urine Blood 1+ A (Negative) Urine Nitrite Negative (Negative) Urine Bilirubin Negative (Negative) Urine Urobilinogen 0.2 (0.2-1.0) Ur Leukocyte Esterase 1+ A (Negative) Urine RBC 0-2 (0-2) Urine WBC 2-5 (0-5) Urine WBC Clumps None (None) Ur Squamous Epith Cells Few (None-Few) Urine Bacteria Few A (None) Lab Acknowledgement Test Added <Mayank Hammer MD - Last Filed: 07/02/23 04:16> Imaging Data CT scan - abdomen: Attestation: I have reviewed the pertinent imaging results. <Arina Espinoza MD - Last Filed: 07/02/23 00:08> Critical Care Time Critical Care Time Critical Care Time: Yes Attestation: The patient required my highest level preparedness to intervene emergently and I personally spent this critical care time directly and personally managing the patient. This critical care time included: Obtaining a history; Examining the patient; Pulse oximetry; Ordering and reviewing of studies; Arranging urgent treatment with development of a management plan; Evaluation of patients response to treatment; Frequent reassessment discussions with other providers. This critical care time was performed to assess and manage the high probability of imminent life-threatening deterioration that could result in multiorgan failure. It was exclusive of separate billable procedures and treating other patients and teaching time- sepsis, fluid boluses, pressors. <Mayank Hammer MD - Last Filed: 07/02/23 04:16> Total Critical Care Time in Minutes: 135 <Mayank Hammer MD - Last Filed: 07/02/23 04:16> Discharge Plan Discharge Clinical Impression: COPD (chronic obstructive pulmonary disease), Acute appendicitis, Chronic hypoxic respiratory failure, on home oxygen therapy, Sepsis associated hypotension <Arina Espinoza MD - Last Filed: 07/02/23 00:08> Patient Disposition: [facility] <Arina Espinoza MD - Last Filed: 07/02/23 00:08> Condition: Guarded <Arina Espinoza MD - Last Filed: 07/02/23 00:08> Prescriptions: No Action cholecalciferol (vitamin D3) 25 mcg (1,000 unit) capsule 25 mcg PO QDAY Stiolto Respimat 2.5-2.5 mcg/actuation mist 2 inh INHALATION Q24H Qty: 4 12RF aspirin [Adult Low Dose Aspirin] 81 mg tablet,delayed release (DR/EC) 81 mg PO QDAY cyanocobalamin (vitamin B-12) [Vitamin B-12] 1,000 mcg tablet 1,000 mcg PO QDAY Qty: 90 4RF atorvastatin 40 mg tablet 40 mg PO ONCE anastrozole 1 mg tablet 1 mg PO QDAY Qty: 90 3RF calcium 500 mg tablet 500 mg PO DAILY (DME) Home Oxygen Misc See Rx Instructions .Route Qty: 1 0RF Rx Instructions: 1 LPM NC at rest, 5 LPM NC with activity <Arina Espinoza MD - Last Filed: 07/02/23 00:08> Stand Alone Forms: MyHealth Info Instructions <Arina Espinoza MD - Last Filed: 07/02/23 00:08>
[2023-07-01 21:19] LABS: Basophils Absolute Auto 0.01 K/uL (0.00-0.30); Basophils Percent Auto 0.1 % (0.0-3.0); Eosinophils Absolute Auto 0.03 K/uL (0.00-0.50); Eosinophils Percent Auto 0.3 % (0.0-7.0); Hematocrit 39.3 % (33.0-51.0); Immature Granulocytes Abs Auto 0.01 K/uL (0.00-0.30); Immature Granulocytes Pct Auto 0.1 %; Lymphocytes Percent Auto 10.6 % (20-44); Mean Corpuscular HGB Conc 31 gm/dL (32-36); Mean Corpuscular Hemoglobin 27 pg (26-34); Mean Corpuscular Volume 90 fL (80-100); Monocytes Percent Auto 5.3 % (0.0-11.0); Neutrophils Percent Auto 83.6 % (42.0-72.0); Platelet Count* 213 K/uL (140-440); RDW Coefficient of Variation % 13.6 % (11.5-15.5); Red Blood Count 4.39 m/uL (4.00-5.20); White Blood Count* 10.85 K/uL (4.50-11.00)
[2023-07-01 21:22] LABS: Slide Review Reflex No
[2023-07-01] MEDS: 0.9 % SODIUM CHLORIDE 500 ML 500 ML IV (21:25)
[2023-07-01] MEDS: ONDANSETRON 2 MG/ML inj 4 MG IVP (21:26)
[2023-07-01 21:27] LABS: Appearance Urine Clear (Clear); Bilirubin Urine Negative (Negative); Blood Urine 1+ (Negative); Color Urine Yellow (Yellow); Glucose Urine Negative (Negative); Ketones Urine 2+ (Negative); Leukocyte Esterase Urine 1+ (Negative); Nitrite Urine Negative (Negative); Protein Urine Trace (Negative); Urobilinogen Urine 0.2 (0.2-1.0)
[2023-07-01 21:28] LABS: Bacteria Urine Few; RBC Urine 0-2 (0-2); Squamous Epithelial Cell Urine Few (None-Few)
[2023-07-01 22:06] LABS: Albumin* 4.3 g/dL (3.3-5.0); Chloride* 97 mmol/L (96-114); Potassium* 4.1 mmol/L (3.6-5.1); Sodium* 135 mmol/L (135-149)
[2023-07-01 22:08] LABS: Bilirubin Total* 0.8 mg/dL (0.1-1.5); Creatinine* 1.1 mg/dL (0.5-1.5); Est. Creatinine Clearance* 28.32; Estimated Glomerular Filt Rate 50 ml/min
[2023-07-01 22:09] LABS: Alanine Aminotransferase* 22 U/L (4-35); Alkaline Phosphatase* 88 U/L (40-150); Anion Gap 9 mEq/L (7-15); Aspartate Amino Transferase* 30 U/L (12-35); Blood Urea Nitrogen* 27 mg/dL (7-30); Carbon Dioxide* 29 mmol/L (20-32); Glucose* 112 mg/dL (60-115); Lipase* 41 U/L (23-300); Total Protein* 7.5 g/dL (6.0-8.3)
[2023-07-01 22:10] LABS: Calcium* 9.3 mg/dL (8.4-10.6)
[2023-07-01 22:13] LABS: C Reactive Protein* < 0.5 mg/dL (0.5-1.0)
--- NOTE | 2023-07-01 22:15 | CRLHL7_ITS ---
For Patients: As a result of the Century Cures Act, medical imaging exams and procedure reports are released immediately into your electronic medical record. You may view this report before your referring provider. If you have questions, please contact your health care provider. INDICATION: Right lower quadrant abdomen pain. TECHNIQUE: CT abdomen and pelvis acquired with 64 cc Isovue 370 IV contrast. COMPARISON: None. FINDINGS: Lower chest: Unremarkable. Liver: Unremarkable. Normal in size and attenuation. No suspicious masses. Gallbladder and bile ducts: Minimal cholelithiasis. Otherwise unremarkable. Pancreas: Unremarkable. No mass or inflammation. Spleen: Unremarkable. Normal in size. No masses. Adrenal glands: Unremarkable. No nodules. Kidneys: Severe right renal atrophy. Kidneys otherwise unremarkable. GI tract: Unremarkable. Normal in caliber. No sign of mass or inflammation. Appendix is inflamed and dilated measuring up to 11 mm. No sign of perforation or abscess. Vasculature: Distal aortic occlusion. Aortic bypass is patent. Mesenteric arteries are patent. Lymph nodes: No lymphadenopathy. Peritoneum/Abdominal Wall: Unremarkable. No sign of mass or infiltration. No free air or significant free fluid. Pelvis: Unremarkable. Bones: Unremarkable for age. IMPRESSION: Acute uncomplicated appendicitis. Please note that all CT scans at this facility use dose modulation, iterative reconstruction, and/or weight-based dosing when appropriate to reduce radiation dose to as low as reasonably achievable. Dictated by Missael Sow MD @ 07/02/2023 12:19:26 AM (Electronically Signed)
[2023-07-02] VITALS (26 sets, daily range): BP systolic 83–118; BP diastolic 47–60; PULSE 84–108; O2SAT 93–99
[2023-07-02] MEDS: PIPERACILLIN/TAZOBACTAM 3.375 GM in 0.9 % SODIUM CHLORIDE Mini-bag 100 ML IVPB (00:41)
[2023-07-02] MEDS: 0.9 % SODIUM CHLORIDE 500 ML 500 ML 1000 ML IV ×2 (01:26→03:32)
[2023-07-02 01:46] LABS: Lactate* 0.6 mmol/L (0.5-1.9)
[2023-07-02 01:48] LABS: Basophils Absolute Auto 0.02 K/uL (0.00-0.30); Basophils Percent Auto 0.2 % (0.0-3.0); Eosinophils Absolute Auto 0.03 K/uL (0.00-0.50); Eosinophils Percent Auto 0.3 % (0.0-7.0); Hematocrit 34.3 % (33.0-51.0); Hemoglobin* 10.5 gm/dL (12.0-16.0); Immature Granulocytes Abs Auto 0.02 K/uL (0.00-0.30); Immature Granulocytes Pct Auto 0.2 %; Lymphocytes Percent Auto 12.6 % (20-44); Mean Corpuscular HGB Conc 31 gm/dL (32-36); Mean Corpuscular Hemoglobin 28 pg (26-34); Mean Corpuscular Volume 90 fL (80-100); Monocytes Percent Auto 6.3 % (0.0-11.0); Neutrophils Percent Auto 80.4 % (42.0-72.0); Platelet Count* 170 K/uL (140-440); RDW Coefficient of Variation % 13.8 % (11.5-15.5); Red Blood Count 3.81 m/uL (4.00-5.20); Slide Review Reflex No; White Blood Count* 10.15 K/uL (4.50-11.00)
[2023-07-02 02:20] LABS: INR 0.93 (0.91-1.10)
--- NOTE | 2023-07-02 04:22 | ED.NURSE ---
Report to PANCHITO Poe, and Arcadio [facility] ED RN. Patient left department via EMS cot with all belongings en route to [facility] ED.
== END 2023-07-02 04:28 | disposition short-term general hospital (02) ==
PROVIDERS: Family Medicine; Emergency Provider Family Medicine; PCP Family Medicine
DX: J44.9 Chronic obstructive pulmonary disease, unspecified (principal); K35.80 Unspecified acute appendicitis; A41.9 Sepsis, unspecified organism; I95.9 Hypotension, unspecified
CPT/HCPCS: 36415; 74177; 80053; 81001; 83605; 83690; 85025; 85610; 86140; 87086; 96365; 96375; 99285; 99291; 99292; J2405; J2543; J7120; Q9967

== ENCOUNTER 2023-07-02 04:06 | Outpatient (CLI) | payer MEDICARE, SELFPAY | END 2023-07-02 04:07 | disposition home or self-care (01) | LOC: AMB 07-08 13:16 | PROVIDERS: PCP Family Medicine; Visit Provider Family Medicine | DX: K37 Unspecified appendicitis (principal) | CPT/HCPCS: A0425; A0434 ==

== ENCOUNTER 2023-07-11 07:59 | Outpatient (CLI) | payer MEDICARE, SELFPAY ==
--- NOTE | 2023-07-11 08:15 | CRLHL7_ITS ---
For Patients: As a result of the Century Cures Act, medical imaging exams and procedure reports are released immediately into your electronic medical record. You may view this report before your referring provider. If you have questions, please contact your health care provider. LEFT BREAST ULTRASOUND CLINICAL HISTORY: LEFT breast pain. COMPARISON: Mammogram 06/14/2023. TECHNIQUE: Real-time ultrasound imaging of LEFT breast with imaging documentation. FINDINGS: Targeted LEFT breast ultrasound performed in the area of concern at 3 o`clock 7 cm from the nipple. Normal breast tissue is present. No fibrocystic change. No solid mass. IMPRESSION: Negative targeted LEFT breast ultrasound. No evidence of malignancy. RECOMMENDATIONS: Routine screening mammography. Results and recommendations were discussed with the patient at the time of the exam. BI-RADS Category 2: Benign A lay language report of this examination will be provided to the patient. Dictated by Julius Navarro MD @ 07/11/2023 12:56:15 PM jj/Dictated by: Julius Navarro MD @ 07/11/2023 12:56:00 PM (Electronically Signed)
== END 2023-07-11 08:00 | disposition home or self-care (01) ==
LOC: US 08:00
PROVIDERS: PCP Family Medicine; Visit Provider Family Medicine
DX: N64.4 Mastodynia (principal)
CPT/HCPCS: 76642

== ENCOUNTER 2023-10-09 08:30 | Outpatient (RCR) | payer MEDICARE, SELFPAY ==
--- NOTE | 2023-06-14 14:52 | URNOTE ---
Received request for prior authorization for Denosumab (Prolia) ([id number]). Per [facility] Injectable Drug Authorization List, Prior authorization is not required.
[2023-06-22 12:02] LABS: Calcium* 9.2 mg/dL (8.4-10.6); Creatinine* 1.2 mg/dL (0.5-1.5); Est. Creatinine Clearance* 25.96; Estimated Glomerular Filt Rate 45 ml/min
[2023-06-22] MEDS: DENOSUMAB 60 MG/ML SYRINGE SUBCUT (12:54)
== END 2023-12-19 23:59 | disposition home or self-care (01) ==
LOC: CCIC 08:30
PROVIDERS: Nurse Practitioner Family; PCP Family Medicine; Referring Provider Family Medicine; Visit Provider Physician Assistant
DX: C50.911 Malignant neoplasm of unspecified site of right female breast (principal); Z17.0 Estrogen receptor positive status [ER+]; Z79.811 Long term (current) use of aromatase inhibitors; M81.0 Age-related osteoporosis without current pathological fracture; N18.32 Chronic kidney disease, stage 3b; Z87.891 Personal history of nicotine dependence
CPT/HCPCS: 36415; 82310; 82565; 96372; 99212; 99214; 99215; G0463; J0897

== ENCOUNTER 2023-11-16 08:03 | Outpatient (CLI) | payer MEDICARE, SELFPAY | END 2023-11-16 08:04 | disposition home or self-care (01) | LOC: NFLDREF 11-27 12:58 | PROVIDERS: PCP Family Medicine; Referring Provider Family Medicine; Visit Provider Family Medicine | DX: D64.9 Anemia, unspecified (principal); E53.8 Deficiency of other specified B group vitamins; E78.5 Hyperlipidemia, unspecified; I10 Essential (primary) hypertension; I95.9 Hypotension, unspecified; M81.0 Age-related osteoporosis without current pathological fracture; R73.9 Hyperglycemia, unspecified | CPT/HCPCS: 80053; 80061; 82306; 82607 ==

== ENCOUNTER 2023-12-27 12:50 | Outpatient (CLI) | payer MEDICARE, SELFPAY ==
--- OUTSIDE RECORDS SUMMARY | 2023-12-27 12:52 | XMS_ITS | Clinical Summary ---
Author Name Unknown Organization [facility] Address [place], [place] [address] Care Team Providers Care Breaker Off Name Role Phone Alethea Patterson MD Primary Care Provider + Allergies Active Allergy Reactions Criticality Noted Date Comments Sulfamethoxazole-Trimethoprim Hives High 2020 Medications Medication Sig Dispensed Refills Start Date End Date Status atorvastatin (LIPITOR) 40 mg tablet Take 1 tablet by mouth once daily. 0 10/18/2013 Active anastrozole (ARIMIDEX) 1 mg tablet Take 1 mg by mouth once daily. Active tiotropium-olodater oL (Stiolto Respimat) 2.5-2.5 mcg/actuation inhaler Inhale 2 Puffs by mouth once daily. Active cyanocobalamin (Vitamin B-12) 1,000 mcg tablet Take 1,000 mcg by mouth once daily. Active CALCIUM-VITAMIN D3 ORAL Take 1 Tablet by mouth once daily. Active aspirin (ECOTRIN) 81 mg enteric coated tablet Take 81 mg by mouth once daily with a meal. Active cholecalciferol (Vitamin D-3) 2,000 unit capsule Take 2,000 units by mouth once daily. Active polyethylene glycol (Miralax) 17 g per packet packetIndications:A ppendicitis, unspecified appendicitis type Mix 17 g in liquid then take by mouth once daily if needed for Constipation (Take daily on days you are taking opioid pain medicine.). 10 Packet 07/03/2023 Active acetaminophen (TYLENOL EXTRA STRGTH) 500 mg tabletIndications:A ppendicitis, unspecified appendicitis type Take 1 Tablet (500 mg) by mouth every 4 hours if needed for Pain or Temp>101.5F (38.6C). 40 Tablet 07/03/2023 Active Active Problems Problem Noted Date Diagnosed Date Aortic stenosis 07/02/2023 Acute appendicitis 07/02/2023 Hypotension 07/02/2023 Anemia 07/02/2023 Acute kidney injury 07/02/2023 Mitral annular calcification 04/22/2022 Chronic obstructive pulmonary disease 04/22/2022 Oxygen dependent 04/22/2022 Mitral valve insufficiency 04/22/2022 PVD (peripheral vascular disease) 04/22/2022 Pulmonary hyperinflation 04/22/2022 Peripheral edema 04/22/2022 Personal history of colonic polyps 11/11/2013 Overview: Colonoscopy 10/2013 history of polyps repeat in 5 years Social History Tobacco Use Types Packs/Day Years Used Date Smoking Tobacco: Former Cigarettes Smokeless Tobacco: Never Tobacco Cessation:Ready to Q uit: No; Counseling Given: Yes Comments:06/21/21 Alcohol Use Standard Drinks/Week Comments Not Asked 0 (1 standard drink = 0.6 oz pur e alcohol) Social Connections Answer Date Recorded Frequency of Communication with Friends and Fami ly 0 07/02/2023 Financial Resource Strain Answer Date R ecorded Difficulty of Paying Living Expenses 3 07/02/2023 Difficulty of Paying Living Expenses Not on file 07/02/2023 Food Insecurity Answer Date Recorded Worried About Running Out of Food in the Last Ye ar 1 07/02/2023 Transportation Needs Answer Date Record ed Lack of Transportation (Medical) 1 07/02/2023 Housing Stability Answer Date Recorded Unable to Pay for Housing in the Last Year 1 07/02/2023 Sex and Gender Information Value Date Recorded Sex Assigned at Not on file Gender Identity Not on file Sexual Orientation Not on file Obstetrics History Last Filed Vital Signs Vital Sign Reading Time Taken Comments Blood Pressure 146/52 07/03/2023 9:30 AM CDT Pulse 82 07/03/2023 9:30 AM CDT Temperature 36.8 ??C (98.3 ??F) 07/03/2023 9:30 AM CD T Respiratory Rate 18 07/03/2023 9:30 AM CDT Oxygen Saturation 97% 07/03/2023 9:30 AM CDT Inhaled Oxygen Concentration - - Weight 58.5 kg (129 lb) 07/02/2023 5:20 AM CDT Height 152.4 cm (5') 07/02/2023 5:20 AM CDT Body Mass Index 25.19 07/02/2023 5:20 AM CDT Plan of Treatment Health Maintenance Due Date Last Done Comments Pneumococcal series for age 65+ (1 of 2 - PCV) 1946 Tdap 12/22/1951 Depression screening for age 12+ 1952 BMI (ht and wt on same day) for age 18+ 1958 Zoster (shingles) series for age 50+ (1 of 2) 12/22/1959 Tetanus booster 1960 DEXA/DXA scan for age 65+ 2005 Medicare Wellness for age 65+ 2005 COVID-19 vaccine series ( season) 2023 03/28/2023, 06/14/2022, 01/11/2022, Additional history exists Influenza for age 65+ 05/19/2024 Advance Directives * Full Code (Latest Code Status on File) Date Activated Date Inactivated Comments 07/02/2023 12:21 PM 07/03/2023 3:52 PM Question Answer Comments Code Status Discussion: Reviewed Preferences * Full Code Date Activated Date Inactivated Comments 07/02/2023 7:28 AM 07/02/2023 12:21 PM Question Answer Comments Code Status Discussion: Unable to Assess Preferences, Provider to review later Care Teams Breaker Off Relationship Specialty Start Date End Date Alethea Patterson MD [address] [place] [address] PCP - General Family Practice 03/20/20
--- OUTSIDE RECORDS SUMMARY | 2023-12-27 12:52 | XMS_ITS | Clinical Summary ---
Author Name Unknown Organization [facility] Address [address], [place] [address] Care Team Providers Care Financial Counselor Name Role Phone Alethea Patterson MD Primary Care Provider Source Comments You are receiving this document as you are listed as the primary care provider,follow-up provider, or the patient has been referred to you for consultation.This is in compliance with the Medicare and[facility] EHR Incentive Program,which states Providers who transition their patient to another setting of careor provider of care or refers their patient to another provider of care shouldprovide summary care record for each transition of care or referral. [facility] Allerg[facility] No known active allergies Medications Medication Sig Dispensed Refills Start Date End Date Status aspirin EC 81 MG enteric coated tablet Take 1 tablet by mouth every other day. 10/16/2013 Active Additional Information Patient not taking.Reported on 08/30/2017 carbamide peroxide (AURAPHENE-B) 6.5 % ear drop solution Place 5-10 drops into the right ear 2 times daily. 15 mL 0 01/02/2015 Active Additional Information Patient not taking.Reported on 08/30/2017 chlorthalidone (HYGROTON) 25 MG tablet Take 1 Tab by mouth daily. 90 Tab 3 08/30/2017 Active atorvastatin (LIPITOR) 40 MG tablet Take 1 Tab by mouth daily. 90 Tab 3 08/30/2017 Active potassium chloride 10 MEQ controlled release capsule 10 mg po twice a week 26 Cap 3 08/30/2017 Active atenolol (TENORMIN) 25 MG tablet TAKE ONE TABLET DAILY 90 Tablet 08/16/2018 Active raNITIdine (ZANTAC) 300 MG tablet Take 1 Tablet by mouth at bedtime as needed for Heartburn. 90 Tablet 10/25/2018 Active Active Problems Problem Noted Date Diagnosed Date Adenomatous polyp 08/31/2017 Overview: Colonoscopy at [facility] 2014, due 2019 Abdominal aortic aneurysm (AAA) without rupture 06/21/2016 Overview: Mild 2016, 3.0 cm proximal. Right [...] Reflux Disease Resolved Problems Problem Noted Date Diagnosed Date Resolved Date COPD exacerbation 05/17/2016 05/17/2016 Diverticulosis of large intestine 02/29/2008 08/31/2017 Overview: Diverticulosis Colon Benign neoplasm of colon 07/14/2004 Overview: LW Onset: 2000 ; Polyp Colon Adenomatous Encounter for sterilization 07/05/2004 04/28/2015 Overview: Tubal Ligation Elective Chronic ischemic heart disease 02/22/2003 05/17/2016 Overview: Ischemic Heart Disease Immunizations Name Administration Dates Next Due Flu Vac (3+ yrs) 07/26/2013,06/08/2012 Flu Vac Preserv Free (3+yrs) 06/18/2012, 05/25/2011,06/05/2009,2007,07/03/2007,07/09/2006,07/20/2005,1 Influenza IIV3 (Trivalent) Nubia Casarezse, 65+ Yrs (85[address]) 08/30/2017,05/17/2016,08/06/2015,2013 Influenza, Unspecified Formulation 07/03,08/01/2002,08/22/2001,1998,07/16/1998 PCV13 (Prevnar) 08/30/2017 PPSV23 (Pneumovax) 06/27/2014,09/19/2012, 004 TDAP (BOOSTRIX) 09/19/2012 Td 03/10/2010,12/09/1999 Zoster (Zostavax) 03/05/2009 Family History Medical History Relation Name Comments Heart Disease Mother Thyroid Disorder Mother Cancer, Breast Other niece br ca Cancer Sister 1 Alyssa lung Cancer, Lung Sister 1 Alyssa Heart Attack Sister 1 Alyssa BRCA 1/2 Negative Family History Cancer, Colon Negative Family History Cancer, Endometrial Negative Family History Cancer, Ovary Negative Family History Saurav Syndrome Negative Family History Diethylstilbestrol Exposure Negative Family History Li-Fraumeni Syndrome Negative Family History Relation Name Status Comments Father (Age 55) not known Mother (Age 77) Brother (Age 67) b 1947, pedraza lf sib Daughter Rosio Alive b 1970 Other niece Alive Sister 1 Alyssa b 193 Sister 2 Lidia Alive b 1940 Son 1 Kirit Alive b 1958 Son 2 Dimitry Alive b 196 Social History Tobacco Use Types Packs/Day Years Used Date Smoking Tobacco: Every Day Cigarettes 0.5 40 Smokeless Tobacco: Never Comments:Smoking History Pac ks/day: Alcohol Use Standard Drinks/Week Comments Yes 7 (1 standard drink = 0.6 oz pur e alcohol) Sex and Gender Information Value Date Recorded Sex Assigned at Not on file Gender Identity Not on file Sexual Orientation Not on file Last Filed Vital Signs Vital Sign Reading Time Taken Comments Blood Pressure 128/82 08/30/2017 11:24 AM WHISKEY PROOF READER Pulse 68 08/30/2017 11:24 AM WHISKEY PROOF READER Temperature 36.2 ??C (97.2 ??F) 01/02/2015 9:58 AM CD T Respiratory Rate 16 01/02/2015 9:58 AM CDT Oxygen Saturation 96% 09/05/2008 1:24 PM WHISKEY PROOF READER Inhaled Oxygen Concentration - - Weight 51.3 kg (113 lb) 08/30/2017 11:24 AM WHISKEY PROOF READER Height 151.8 cm (4' 11.75) 08/30/2017 11:24 AM WHISKEY PROOF READER Body Mass Index 22.25 08/30/2017 11:24 AM WHISKEY PROOF READER Plan of Treatment Health Maintenance Due Date Last Done Comments Adult Preventive Visit 08/30/2018 08/30/2017 Colonoscopy 11/11/2018 11/11/2013 (Comp leted), 03/11/2008 DTaP/Tdap/Td (2 - Tdap) 09/19/2022 09/19/19 13, 09/19/2012 (Completed), 03/10/2010, Additional history exists COVID-19 Vaccine ( - season) 2023 11/21/2020, 10/31/2020 Influenza (#1) 2023 07/08/2020, 06/18, 07/19/2018, Additional history exists Dexa Completed 03/29/2010 (Completed) Pneumococcal 65+ Yrs Completed 08/30/2017, 06/27/2014, 09/19/2012, Additional history exists Zoster/Shingles Completed 05/01/2018, 02/16, 03/05/2009 HepA Aged Out No longer eligi ble based on patient's age to complete this topic HepB Aged Out No longer eligi ble based on patient's age to complete this topic Hib Aged Out No longer eligi ble based on patient's age to complete this topic IPV (Polio) Aged Out No longer eligi ble based on patient's age to complete this topic MCV4 Aged Out No longer eligi ble based on patient's age to complete this topic Procedures Procedure Name Priority Date/Time Associated Diagnosis Comments ENDOSCOPY, COLON, SCREENING/DIAGNOSTIC Routine 03/11/2008 2:50 PM CDT from Last 3 Months or Most Recently Relevant to Health Maintenance Results * Endoscopy, colon, diagnostic (03/11/2008 2:50 PM CDT) User Conversion PN GI PROCEDURE EYAD GENTILE HP CONVERSION from Last 3 Months or Most Recently Relevant to Health Maintenance Advance Directives Documents on File Type Date Recorded Patient School Crossing Guard Expl anation Advance Directive/Living Will/Durable Power of Attny on file/POLST PN 09/16/2011 Care Teams Financial Counselor Relationship Specialty Start Date End Date Alethea Patterson MD [address] [place] [address] PCP - General Family Practice 01/02/19
--- OUTSIDE RECORDS SUMMARY | 2023-12-27 12:52 | XMS_ITS | Encounter Summary ---
Author Name Unknown Organization [facility] Address [address] [place] [address] Care Team Providers Care Sonar Subsystem Equipment Operator Name Role Phone Alethea Patterson MD Primary Care Provider Reason for Visit * Reason Comments Refill Encounter Details Date Type Department Care Team (Late st Contact Info) Description 05/05/2016 [place]ill [facility] [place] [address] [place], [place] [phone] Judy Sorensen MD [address] [place], [place] [phone] Refill Social History Tobacco Use Types Packs/Day Years Used Date Smoking Tobacco: Never Assessed Sex and Gender Information Value Date Recorded Sex Assigned at Not on file Gender Identity Not on file Sexual Orientation Not on file documented as of this encounter Nursing Notes * User, Refillwizard - 06/06/2016 1:32 AM CDT chlorthalidone (HYGROTEN) [...] months) - LAST QUALIFYING VISIT WITH JUDY LARSEN: [...] (Sent to [facility]) Powered by [employer], Reference: [id number], 05/05/2016 10:51:58 AM CDT, Pool: [facility] FP REFILL ([id number]) T VAULT CLERK * Claire Olmos - 05/09/2016 1:21 PM CDT Called pt and booked appt. She said it was just fine for the regular labs. T VAULT CLERK * Judy Larsen MD - 05/09/2016 1:10 PM CDT sent, needs labs ordered and visit. If wants additional screening fasting labs to be done with thisreturn message to me. T VAULT CLERK * Keena Asif RN - 05/06/2016 12:00 PM CDT PROVIDER [...] this encounter Plan of Treatment Not on file documented as of this encounter Visit Diagnoses Not on filedocumented in this encounter Care Teams Sonar Subsystem Equipment Operator Relationship Specialty Start Date End Date Alethea Patterson MD [address] [place] [id number] PCP - General Family Practice 01/02/19 documented as of this encounter
--- OUTSIDE RECORDS SUMMARY | 2023-12-27 12:52 | XMS_ITS | Encounter Summary ---
Author Name Unknown Organization [facility] Address [address] [address] Care Team Providers Care Java Swing Developer Name Role Phone Alethea Patterson MD Primary Care Provider Encounter Details Date Type Department Care Team (Late st Contact Info) Description 05/18/2016 Notes/Orders [facility] Interventional Radiology [facility] [place] [address] Perla Bowman, RN Tobacco use disorder (Primary Dx); Current smoker; Personal history of nicotine dependence Social History Tobacco Use Types Packs/Day Years [...] documented as of this encounter Progress Notes * Judy Larsen MD - 06/20/2016 1:31 AM CDT Order signed, although I do not see any comment about an abnormality. It is reasonable to do an annual screen with current nicotine dependence and active smoking. HOUSE WORKER * Perla Bowman RN - 06/20/2016 1:31 AM CDT Pt had CT lung screen in December 2014. At that time the radiologist recommended a follow-up CT lung screen in 12 months. Order pended and routed to physician to be signed. Once order signed, pt will benotified to schedule scan. HOUSE WORKER documented in this encounter Plan of Treatment Not on file documented as of this encounter Results * CT Chest WO IV Cont Lung Screening (06/13/2016 9:28 AM CDT) Anatomical Region Laterality Modality Chest, Lung Computed Tomogra phy 06/13/2016 9:22 AM CDT Impressions 06/13/2016 9:52 AM CDT IMPRESSION: Stable findings in the chest. Narrative 06/13/2016 9:52 AM CDT COMPARISON: Chest CT scan 01/02/2015 TECHNIQUE: Images through the chest were obtained without contrast using a low dose lung screening technique. FINDINGS: Focal groundglass opacity appears stable in the right lower lobe on image 29. No acute infiltrates or suspicious pulmonary nodules. Focal lingular opacity unchanged on image 45. Left upper lobe nodule stable on image 32. Heart size normal. No pericardial or pleural effusion. Calcified mitral annulus. Mediastinal and hilar structures grossly normal, with old granulomatous calcifications. Bony thorax unremarkable. There is limited visualization of the upper abdomen. Infrarenal abdominal aortic aneurysm is partially imaged. Procedure Note Curtis Verma MD - 06/13/2016 COMPARISON: Chest CT scan 01/02/2015 TECHNIQUE: Images through the chest were obtained without contrast using alow dose lung screening technique. FINDINGS: Focal groundglass opacity appears stable in the right lower lobeon image 29. No acute infiltrates or suspicious pulmonary nodules. Focallingular opacity unchanged on image 45. Left upper lobe nodule stable onimage 32. Heart size normal. No pericardial or pleural effusion. Calcified mitralannulus. Mediastinal and hilar structures grossly normal, with oldgranulomatous calcifications. Bony thorax unremarkable. There is limited visualization of the upper abdomen. Infrarenal abdominalaortic aneurysm is partially imaged. IMPRESSION IMPRESSION: Stable findings in the chest. Judy Sorensen MD RAD CT documented in this encounter Visit Diagnoses Diagnosis Tobacco use disorder (HRC)- Primary Tobacco use disorder Current smoker (HRC) Tobacco use disorder Personal history of nicotine dependence Personal history of tobacco use, presenting hazards to health Personal history of nicotine dependence Personal history of tobacco use, presenting hazards to health documented in this encounter Care Teams Java Swing Developer Relationship Specialty Start Date End Date Alethea Patterson MD [address] [place] [address] PCP - General Family Practice 01/02/19 documented as of this encounter
--- NOTE | 2023-12-27 13:00 | XR_ITS ---
Patient: SHU CANDELARIO Facility:?[facility] RIS Patient ID:?[id number] Site Patient ID:?[id number]. Site :?[id number] Study:?DEXA-Bone Density -12/27/2023 1:33:37 PM Ordering Physician:?JESSE WILSON Final Report: DXA BONE MINERAL DENSITY STUDY Reason for exam: Long-term use of aromatase inhibitors. Monitor osteoporosis on aromatase inhibitor. Current height (inches): 59.0 Weight (lbs.): 129.0 Menopause age: 53 Ethnicity: White 1. Have you had a previous hip or vertebral fracture? No. 2. Have you had any fractures during your adult life which did not result from significant trauma (e.g., auto accident)? No. 3. Did either of your parents have a hip fracture? Yes. 4. Do you smoke? No. 5. Have you ever taken Glucocorticoids? No. 6. Do you have rheumatoid arthritis? No. 7. Do you have secondary osteoporosis? No. 8. Do you drink 3 or more alcoholic drinks per day? No. 9. Are you being treated for osteoporosis? No. 10. Have you ever taken any of the following medications: Actonel, Evista, Fosamax, Miacalcin, Reclast, Boniva, Forteo, HRT (i.e., estrogen/hormone therapy), Protelos, Prolia, Vitamin D, Calcium, other ? please specify. ANSWER: Yes; vitamin D, calcium. 11. Do you have any of the following medical conditions: Anorexia or bulimia, asthma or emphysema, end stage renal disease, hyperparathyroidism, any seizure disorders, cancer, inflammatory bowel diseases, hysterectomy, other ? please specify. ANSWER: Yes; breast cancer. 12. What was your maximum height (inches)? 61. 13. Do you perform weightbearing exercise regularly? No. 14. Do you regularly consume dairy products? No. 15. Do you drink caffeinated beverages? Yes. 16. At what age did your period start? 13. 17. Are you premenopausal? No. 18. How many full-term pregnancies have you had? 3. 19. Have you ever missed your period for more than 6 months in a row (not including or menopause)? No. TECHNIQUE: Bone mineral density study was performed using the [employer]. FINDINGS: The results of the study expressed as bone mineral density (BMD) are as follows: Lumbar Spine L2 to L4: BMD: 1.086 g/cm2. T-score: 0.1. Z-score: 2.9. Neck Left: BMD: 0.609 g/cm2. T-score: -2.2. Z-score: 0.3. Right: BMD: 0.587 g/cm2. T-score: -2.4. Z-score: 0.1. Total Left: BMD: 0.785 g/cm2. T-score: -1.3. Z-score: 0.9. Right: BMD: 0.622 g/cm2. T-score: -2.6. Z-score: -0.4. IMPRESSION: Osteoporosis. COMPARISON: Compared with scan of 06/17/2021, the bone mineral density has increased by 5.9% at the spine and increased by 3.5% at the hip. Compared with scan of 08/13/2018, the bone mineral density has increased by 6.4% at the spine and increased by 6.2% at the hip. *Comparison exams done prior to 02/2020 were performed on different unit, [employer]. HI HULL M.D. Diagnostic Radiologist [email or web address] [email or web address]/[email or web address] D& Transcribed: 11:[address]/Dictated by: Hi Hull MD @ 12/28/2023 9:29:00 AM Signed by:?Hi Hull MD @12/28/2023 12:14:59 PM (Electronic Signature)
== END 2023-12-27 12:51 | disposition home or self-care (01) ==
LOC: RAD 12:51
PROVIDERS: PCP Family Medicine; Visit Provider Physician Assistant
DX: M81.0 Age-related osteoporosis without current pathological fracture (principal); E53.8 Deficiency of other specified B group vitamins; Z79.811 Long term (current) use of aromatase inhibitors
CPT/HCPCS: 77080

== ENCOUNTER 2024-01-18 09:38 | Outpatient (CLI) | payer MEDICARE, SELFPAY ==
--- OUTSIDE RECORDS SUMMARY | 2024-01-18 09:40 | XMS_ITS | Clinical Summary ---
Author Name Unknown Organization [facility] Address [address], [place] [address] Care Team Providers Care Card Player Name Role Phone Alethea Patterson MD Primary Care Provider Source Comments You are receiving this document as you are listed as the primary care provider,follow-up provider, or the patient has been referred to you for consultation.This is in compliance with the Medicare and[facility] E[facility] Incentive Program,which states Providers who transition their patient to another setting of careor provider of care or refers their patient to another provider of care shouldprovide summary care record for each transition of care or referral. [facility] Allergies No known active allergies Medications Medication [...] Date Adenomatous polyp 08/31/2017 Overview: Colonoscopy at [facility] 2014, due 2019 Abdominal aortic aneurysm (AAA) [...] Influenza IIV3 (Trivalent) Nubia Casarezse, 65+ Yrs ([id number]) 08/30/2017,05/17/2016,08/06/2015,2013 Influenza, Unspecified Formulation 07/03,08/01/2002,08/22/2001,1998,07/16/1998 PCV13 (Prevnar) [...] Family History Cancer, Ovary Negative Family History [place] Syndrome Negative Family History Diethylstilbestrol Exposure Negative [...] Comments Blood Pressure 128/82 08/30/2017 11:24 AM ORNITHOLOGY TEACHER Pulse 68 08/30/2017 11:24 AM ORNITHOLOGY TEACHER Temperature 36.2 ??C (97.2 ??F) 01/02/2015 9:58 AM CD T Respiratory Rate 16 01/02/2015 9:58 AM CDT Oxygen Saturation 96% 09/05/2008 1:24 PM ORNITHOLOGY TEACHER Inhaled Oxygen Concentration - - Weight 51.3 kg (113 lb) 08/30/2017 11:24 AM ORNITHOLOGY TEACHER Height 151.8 cm (4' 11.75) 08/30/2017 11:24 AM ORNITHOLOGY TEACHER Body Mass Index 22.25 08/30/2017 11:24 AM ORNITHOLOGY TEACHER Plan of Treatment Health Maintenance Due Date [...] Documents on File Type Date Recorded 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
--- OUTSIDE RECORDS SUMMARY | 2024-01-18 09:40 | XMS_ITS | Encounter Summary ---
Author Name Unknown Organization [facility] Address [address] [address] Care Team Providers Care Skiver Hand Name Role Phone Alethea Patterson MD Primary Care Provider Encounter Details Date Type Department Care Team (Late st Contact Info) Description 05/18/2016 Notes/Orders [facility] Interventional Radiology [facility] [place] [address] Perla Bowman, RN Tobacco use disorder (Primary [...] with current nicotine dependence and active smoking. R HEAD PEGGER * Perla Bowman RN - 06/20/2016 1:31 AM CDT Pt had CT lung screen in December 2014. At that time the radiologist recommended a follow-up CT lung screen in 12 months. Order pended and routed to physician to be signed. Once order signed, pt will benotified to schedule scan. R HEAD PEGGER documented in this encounter Plan of Treatment [...] health documented in this encounter Care Teams Skiver Hand Relationship Specialty Start Date End Date Alethea Patterson MD [address] [place] [address] PCP - General Family Practice 01/02/19 documented as of this encounter
--- OUTSIDE RECORDS SUMMARY | 2024-01-18 09:40 | XMS_ITS | Encounter Summary ---
Author Name Unknown Organization [facility] Address [address] [place] [address] Care Team Providers Care Assurance Analyst Name Role Phone Alethea Patterson MD Primary Care Provider Reason for Visit * Reason Comments Refill Encounter Details Date Type Department Care Team (Late st Contact Info) Description 05/05/2016 Refill [facility] [address] [place], [place] [address] Judy Sorensen MD [address] [place], [place] [id number] Refill Social History Tobacco Use Types Packs/Day [...] (Sent to [facility]) Powered by [employer], Reference: [id number], 05/05/2016 10:51:58 AM CDT, Pool: K[facility]LOE FP REFILL ([id number]) ER SPRAYER * Claire Olmos - 05/09/2016 1:21 PM CDT Called pt and booked appt. She said it was just fine for the regular labs. ER SPRAYER * Judy Larsen MD - 05/09/2016 1:10 PM CDT sent, needs labs ordered and visit. If wants additional screening fasting labs to be done with thisreturn message to me. ER SPRAYER * Keena Asif RN - 05/06/2016 12:00 [...] on filedocumented in this encounter Care Teams Assurance Analyst Relationship Specialty Start Date End Date Alethea Patterson MD [address] [place] [address] PCP - General Family Practice 01/02/19 documented as of this encounter
--- OUTSIDE RECORDS SUMMARY | 2024-01-18 09:40 | XMS_ITS | Clinical Summary ---
Author Name Unknown Organization [employer] [facility] Address [place], [place] [address] Care Team Providers Care Counter Clerk Name Role Phone Alethea Patterson MD Primary [...] Preferences, Provider to review later Care Teams Counter Clerk Relationship Specialty Start Date End Date Alethea Patterson MD [address] [place] [address] PCP - General Family Practice 03/20/20
--- NOTE | 2024-01-18 09:45 | MM_ITS ---
Patient: SUH CANDELARIO Facility:?[facility] RIS Patient ID:?[id number] Site Patient ID:?[id number]. Site :?[id number] Study:?XRay-Breast Bilateral 3D W/CAD-01/18/2024 10:59:20 AM Ordering Physician:Trisha Quach Final Report: DIGITAL DIAGNOSTIC BILATERAL MAMMOGRAM USING TOMOSYNTHESIS AND COMPUTER-AIDED DETECTION RIGHT BREAST ULTRASOUND CLINICAL HISTORY: RIGHT breast pain. COMPARISON: 06/14/2023, 05/04/2022, 07/01/2021, 04/26/2021 TECHNIQUE: Digital BILATERAL mammogram in four projections. Tomosynthesis and CAD utilized. Real-time ultrasound imaging of RIGHT breast with imaging documentation. BREAST COMPOSITION: There are areas of scattered fibroglandular density. FINDINGS: 3D CC/MLO BILATERAL mammogram images submitted. Benign calcifications are present bilaterally. No architectural distortion or adenopathy. No suspicious mass. Posttreatment changes are present. Targeted RIGHT breast ultrasound performed at 6 o`clock 2 cm from the nipple. Normal fibroglandular tissue is present. No fibrocystic change or mass. IMPRESSION: Benign findings. No evidence of malignancy. RECOMMENDATIONS: Routine screening mammography. Results and recommendations discussed with the patient. BI-RADS Category 2: Benign A lay language report of this examination will be provided to the patient. Dictated by Julius Navarro MD @ 01/18/2024 12:17:06 PM carlottaj/Dictated by: Julius Navarro MD @ 01/18/2024 12:17:00 PM Signed by:?Julius Navarro MD @01/18/2024 3:05:05 PM (Electronic Signature)
--- NOTE | 2024-01-18 10:15 | US_ITS ---
Patient: SHU CANDELARIO Facility:?[facility] RIS Patient ID:?[id number] Site Patient ID:?[id number]. Site :?[id number] Study:?US-Breast Right Dr. Navarro to read-01/18/2024 10:34:18 AM Ordering Physician:?Trisha Giraldo Final Report: PLEASE SEE DIGITAL DIAGNOSTIC BILATERAL MAMMOGRAM PERFORMED SAME DAY CRL:prisca cope/Dictated by: Julius Navarro MD @ 01/18/2024 12:17:00 PM Signed by:?Julius Navarro MD @01/18/2024 3:05:03 PM (Electronic Signature)
== END 2024-01-18 09:39 | disposition home or self-care (01) ==
LOC: MAMMO 09:39
PROVIDERS: PCP Family Medicine; Visit Provider Physician Assistant
DX: N64.4 Mastodynia (principal)
CPT/HCPCS: 76642; 77066; G0279

== ENCOUNTER 2024-02-02 07:40 | Outpatient (CLI) | payer MEDICARE, SELFPAY ==
--- OUTSIDE RECORDS SUMMARY | 2024-02-02 07:42 | XMS_ITS | Clinical Summary ---
Author Name Unknown Organization [facility] Address [address], [place] [address] Care Team Providers Care Project Control Officer Name Role Phone Alethea Patterson MD Primary Care Provider Source Comments You are receiving this document as you are listed as the primary care provider,follow-up provider, or the patient has been referred to you for consultation.This is in compliance with the Medicare and[facility] EHR Incentive Program,which states Providers who transition their patient to another setting of careor provider of care or refers their patient to another provider of care shouldprovide summary care record for each transition of care or referral. [facility] Allergies No known active allergies [...] Date Adenomatous polyp 08/31/2017 Overview: Colonoscopy at [facility] 2014, due 2019 Abdominal aortic aneurysm [...] Influenza IIV3 (Trivalent) Nubia Casarezse, 65+ Yrs ([id number]) 08/30/2017,05/17/2016,08/06/2015,2013 Influenza, Unspecified Formulation 07/03,08/01/2002,08/22/2001,1998,07/16/1998 PCV13 (Prevnar) [...] Family History Cancer, Ovary Negative Family History Cisco Syndrome Negative Family History Diethylstilbestrol Exposure Negative [...] Comments Blood Pressure 128/82 08/30/2017 11:24 AM PHOTOGRAPHY PROFESSOR Pulse 68 08/30/2017 11:24 AM PHOTOGRAPHY PROFESSOR Temperature 36.2 ??C (97.2 ??F) 01/02/2015 9:58 AM CD T Respiratory Rate 16 01/02/2015 9:58 AM CDT Oxygen Saturation 96% 09/05/2008 1:24 PM PHOTOGRAPHY PROFESSOR Inhaled Oxygen Concentration - - Weight 51.3 kg (113 lb) 08/30/2017 11:24 AM PHOTOGRAPHY PROFESSOR Height 151.8 cm (4' 11.75) 08/30/2017 11:24 AM PHOTOGRAPHY PROFESSOR Body Mass Index 22.25 08/30/2017 11:24 AM PHOTOGRAPHY PROFESSOR Plan of Treatment Health Maintenance Due Date Last Done Comments Adult Preventive Visit 08/30/2018 08/30/2017 Colonoscopy 11/11/2018 11/11/2013 (Comp leted), 03/11/2008 DTaP/Tdap/Td (2 - Tdap) 09/19/2022 09/19/19 13, 09/19/2012 (Completed), 03/10/2010, Additional history exists COVID-19 Vaccine ( season) 2023 11/21/2020, 10/31/2020 Influenza (Season Ended) 2024 020, 06/27/2019, 07/19/2018, Additional history exists Dexa Completed 03/29/2010 [...] Documents on File Type Date Recorded Patient Security Analyst Expl anation Advance Directive/Living Will/Durable Power of Attny on file/POLST PN 09/16/2011 Care Teams Project Control Officer Relationship Specialty Start Date End Date Alethea Patterson MD [address] [place] [address] PCP - General Family Practice 01/02/19
--- OUTSIDE RECORDS SUMMARY | 2024-02-02 07:42 | XMS_ITS | Encounter Summary ---
Author Name Unknown Organization [facility] Address [address], [place] [address] Care Team Providers Care Automotive Service Porter Name Role Phone Alethea Patterson MD Primary Care Provider Encounter Details Date Type Department Care Team (Late st Contact Info) Description 05/18/2016 Notes/Orders [facility] Interventional Radiology [facility] [place] [address] Perla Bowman, RN Tobacco use disorder (Primary [...] with current nicotine dependence and active smoking. RNATIVE MEDICINE PRACTITIONER * Perla Bowman RN - 06/20/2016 1:31 AM CDT Pt had CT lung screen in December 2014. At that time the radiologist recommended a follow-up CT lung screen in 12 months. Order pended and routed to physician to be signed. Once order signed, pt will benotified to schedule scan. RNATIVE MEDICINE PRACTITIONER documented in this encounter Plan of Treatment [...] IMPRESSION IMPRESSION: Stable findings in the chest. Jduy Sorensen MD RAD CT documented in this encounter Visit Diagnoses Diagnosis Tobacco use disorder (HRC)- Primary Tobacco use disorder Current smoker (HRC) Tobacco use disorder Personal history of nicotine dependence Personal history of tobacco use, presenting hazards to health Personal history of nicotine dependence Personal history of tobacco use, presenting hazards to health documented in this encounter Care Teams Automotive Service Porter Relationship Specialty Start Date End Date Alethea Patterson MD [address] [place] [address] PCP - General Family Practice 01/02/19 documented as of this encounter
--- OUTSIDE RECORDS SUMMARY | 2024-02-02 07:42 | XMS_ITS | Clinical Summary ---
Author Name Unknown Organization [facility] Address [place], [place] [address] Care Team Providers Care Publisher Assistant Name Role Phone Alethea Patterson MD Primary [...] 07/02/2023 5:20 AM CDT Plan of Treatment Upcoming Encounters Date Type Department Care Team (Late st Contact Info) Description 02/02/2024 8:00 AM CDT Ancillary Procedure [facility] [address] [facility] [place] [address] Health Maintenance Due Date Last Done Comments [...] for age 65+ 2005 COVID-19 vaccine series (2022- season) 2023 03/28/2023, 06/14/2022, 01/11/2022, Additional history [...] Preferences, Provider to review later Care Teams Publisher Assistant Relationship Specialty Start Date End Date Alethea Patterson MD [address] [place] [address] PCP - General Family Practice 03/20/20
--- OUTSIDE RECORDS SUMMARY | 2024-02-02 07:42 | XMS_ITS | Encounter Summary ---
Author Name Unknown Organization [facility] Address [address] [place] [address] Care Team Providers Care Assault Boat Coxswain Name Role Phone Alethea Patterson MD Primary Care Provider Reason for Visit * Reason Comments Refill Encounter Details Date Type Department Care Team (Late st Contact Info) Description 05/05/2016 Refill [facility] [address] [place], [place] [address] Judy Sorensen MD [address] [place], [place] [phone] Refill Social History Tobacco Use Types Packs/Day [...] (Sent to [facility]) Powered by [employer], Reference: [id number], 05/05/2016 10:51:58 AM CDT, Pool: KHLOE FP REFILL ([id number]) PRESIDENT GLOBAL DIGITAL MARKETING * Claire Olmos - 05/09/2016 1:21 PM CDT Called pt and booked appt. She said it was just fine for the regular labs. PRESIDENT GLOBAL DIGITAL MARKETING * Judy Larsen MD - 05/09/2016 1:10 PM CDT sent, needs labs ordered and visit. If wants additional screening fasting labs to be done with thisreturn message to me. PRESIDENT GLOBAL DIGITAL MARKETING * Keena Asif RN - 05/06/2016 12:00 [...] on filedocumented in this encounter Care Teams Assault Boat Coxswain Relationship Specialty Start Date End Date Alethea Patterson MD [address] [place] [address] PCP - General Family Practice 01/02/19 documented as of this encounter
== END 2024-02-02 07:41 | disposition home or self-care (01) ==
LOC: RAD 07:40
PROVIDERS: PCP Family Medicine; Visit Provider Internal Medicine
DX: I35.0 Nonrheumatic aortic (valve) stenosis (principal); I34.0 Nonrheumatic mitral (valve) insufficiency; I51.7 Cardiomegaly; I05.9 Rheumatic mitral valve disease, unspecified
CPT/HCPCS: 93306

== ENCOUNTER 2024-07-05 09:00 | Outpatient (RCR) | payer MEDICARE, SELFPAY ==
[2024-01-08 09:16] LABS: Calcium* 9.7 mg/dL (8.4-10.6); Creatinine* 1.3 mg/dL (0.5-1.5); Estimated Glomerular Filt Rate 41 ml/min
[2024-01-08] MEDS: DENOSUMAB 60 MG/ML SYRINGE SUBCUT (09:53)
[2024-06-13 11:22] LABS: Creatinine* 1.2 mg/dL (0.5-1.5); Est. Creatinine Clearance* 32.56; Estimated Glomerular Filt Rate 45 ml/min
[2024-06-13 11:23] LABS: Calcium* 9.1 mg/dL (8.4-10.6)
--- NOTE | 2024-06-26 14:11 | URNOTE ---
Received request for prior authorization for Denosumab (Prolia) ([id number]). Per [facility] Injectable Drug Authorization List, Prior authorization is not required.
[2024-07-05 09:22] VITALS: BP 154/93; PULSE 81; RESP 16; TEMP 36.4; O2SAT 96
[2024-07-05] MEDS: DENOSUMAB 60 MG/ML SYRINGE SUBCUT (09:23)
== END 2024-07-06 23:59 | disposition home or self-care (01) ==
LOC: CCIC 09:00
PROVIDERS: PCP Family Medicine; Referring Provider Family Medicine; Visit Provider Physician Assistant
DX: C50.911 Malignant neoplasm of unspecified site of right female breast (principal); Z17.0 Estrogen receptor positive status [ER+]; M81.0 Age-related osteoporosis without current pathological fracture
CPT/HCPCS: 36415; 82310; 82565; 96372; 99214; 99215; G0463; J0897

== ENCOUNTER 2024-11-26 08:42 | Outpatient (CLI) | payer MEDICARE, SELFPAY | END 2024-11-26 08:43 | disposition home or self-care (01) | LOC: NFLDREF 11-28 07:29 | PROVIDERS: PCP Family Medicine; Referring Provider Family Medicine; Visit Provider Family Medicine | DX: E78.5 Hyperlipidemia, unspecified (principal); E53.8 Deficiency of other specified B group vitamins; I10 Essential (primary) hypertension; M81.0 Age-related osteoporosis without current pathological fracture | CPT/HCPCS: 80053; 80061; 82306; 82607 ==

== ENCOUNTER 2025-01-01 09:30 | Outpatient (RCR) | payer MEDICARE, SELFPAY ==
[2024-12-30 11:49] LABS: Creatinine* 1.2 mg/dL (0.5-1.5); Est. Creatinine Clearance* 25.07; Estimated Glomerular Filt Rate 45 ml/min
[2024-12-30 11:50] LABS: Calcium* 9.5 mg/dL (8.4-10.6)
[2025-01-01 09:45] VITALS: BP 142/55; RESP 20; TEMP 35.8; O2SAT 93
[2025-01-01] MEDS: DENOSUMAB 60 MG/ML SYRINGE SUBCUT (10:19)
--- NOTE | 2025-01-01 13:44 | ONC.NURNOTE ---
Patient in clinic for Denosumab injection. On review of labs estimated creat clearance is 25. Per bone treatment order set review if level is under 30. RN reviewed labs with Eulalia Aldana APRN. Labs are stable and per guidelines ok to give. Advised that patient increase fluid intake to at least 64 oz a day. RN updated patient to increase fluid intake daily. She was agreeable to plan.
== END 2025-02-25 23:59 | disposition home or self-care (01) ==
LOC: CCIC 09:30
PROVIDERS: PCP Family Medicine; Referring Provider Family Medicine; Visit Provider Internal Medicine Hematology & Oncology
DX: M81.0 Age-related osteoporosis without current pathological fracture (principal); C50.911 Malignant neoplasm of unspecified site of right female breast; Z17.0 Estrogen receptor positive status [ER+]
CPT/HCPCS: 36415; 82310; 82565; 96372; 99213; 99214; G0463; J0897

== ENCOUNTER 2025-02-19 12:43 | Outpatient (CLI) | payer MEDICARE, SELFPAY | END 2025-02-19 12:44 | disposition home or self-care (01) | LOC: RAD 12:43 | PROVIDERS: PCP Family Medicine; Visit Provider Internal Medicine | DX: I35.0 Nonrheumatic aortic (valve) stenosis (principal); I35.1 Nonrheumatic aortic (valve) insufficiency; I34.0 Nonrheumatic mitral (valve) insufficiency | CPT/HCPCS: 93306 ==

== ENCOUNTER 2025-03-06 09:56 | Outpatient (RCR) | payer MEDICARE, SELFPAY | END 2025-09-02 23:59 | disposition home or self-care (01) | LOC: CCIC 09:56 | PROVIDERS: PCP Family Medicine; Visit Provider Physician Assistant | DX: C50.911 Malignant neoplasm of unspecified site of right female breast (principal); Z17.0 Estrogen receptor positive status [ER+]; M81.0 Age-related osteoporosis without current pathological fracture; Z87.891 Personal history of nicotine dependence | CPT/HCPCS: 99214; G0463 ==

== ENCOUNTER 2025-06-25 10:20 | Outpatient (CLI) | payer MEDICARE, SELFPAY ==
--- NOTE | 2025-06-25 10:15 | CRLHL7_ITS ---
For Patients: As a result of the Century Cures Act, medical imaging exams and procedure reports are released immediately into your electronic medical record. You may view this report before your referring provider. If you have questions, please contact your health care provider. INDICATION: BILATERAL SCREENING MAMMOGRAM, ASYMPTOMATIC 84 Y/O FEMALE COMPARISON: 01/18/2024, 06/14/2023, 05/04/2022 TECHNIQUE: Digital mammogram in CC and MLO projections including computer-aided detection (CAD) and tomosynthesis. BREAST COMPOSITION: There are scattered areas of fibroglandular density. FINDINGS: No suspicious findings. ASSESSMENT: BI-RADS 2 Benign RECOMMENDATION: Annual screening mammogram. A lay language report of this examination will be provided to the patient. Dictated by: Julius Navarro MD @ 06/25/2025 12:11:37 (Electronically Signed)
== END 2025-06-25 10:21 | disposition home or self-care (01) ==
LOC: MAMMO 10:21
PROVIDERS: PCP Family Medicine; Visit Provider Physician Assistant
DX: Z12.31 Encounter for screening mammogram for malignant neoplasm of breast (principal)
CPT/HCPCS: 77063; 77067

== ENCOUNTER 2025-06-26 11:08 | Outpatient (CLI) | payer MEDICARE, SELFPAY | END 2025-06-26 11:09 | disposition home or self-care (01) | LOC: NFLDREF 11:09 | PROVIDERS: PCP Family Medicine; Visit Provider Family Medicine | DX: Z98.890 Other specified postprocedural states (principal) | CPT/HCPCS: 80048 ==

== ENCOUNTER 2025-07-17 09:58 | Outpatient (CLI) | payer MEDICARE, SELFPAY | END 2025-07-17 09:59 | disposition home or self-care (01) | PROVIDERS: PCP Family Medicine; Visit Provider Family Medicine | DX: Z01.818 Encounter for other preprocedural examination (principal); N18.32 Chronic kidney disease, stage 3b | CPT/HCPCS: 80048; 86850; 86900; 86901 ==

== ENCOUNTER 2025-07-21 14:48 | Outpatient (CLI) | payer MEDICARE, SELFPAY ==
--- NOTE | 2025-07-21 15:00 | CRLHL7_ITS ---
For Patients: As a result of the Century Cures Act, medical imaging exams and procedure reports are released immediately into your electronic medical record. You may view this report before your referring provider. If you have questions, please contact your health care provider. INDICATION: Carotid artery stenosis TECHNIQUE: The carotid circulations and the vertebral arteries in the neck were examined with zuñiga-scale ultrasound, color-flow and Doppler spectral analysis. Degrees of stenosis were determined using SRU 2002 Consensus Panel Criteria. COMPARISON: Carotid ultrasound of 06/16/2021 FINDINGS: Calcified carotid bulb plaques are present bilaterally. Due to shadowing from the plaques, the degree of stenosis cannot be evaluated on the grayscale images. Doppler spectral analysis demonstrates peak systolic flow rate of 184 cm/sec in the right internal carotid artery and 199 cm/sec in the left. The ICA-CCA systolic flow ratio on the right is 2.8 and on the left is 2.0. Retrograde flow is demonstrated in the left vertebral artery. Antegrade flow is demonstrated in the right. IMPRESSION: 1. Calcified carotid bulb plaques producing greater than 70 percent stenosis on the right and 50-69 percent stenosis on the left, based on NASCET criteria. 2. Retrograde left vertebral artery flow, consistent with subclavian steal. Antegrade right vertebral artery flow noted. Dictated by Derek Villeda MD @ 07/22/2025 5:27:26 AM (Electronically Signed)
== END 2025-07-21 14:49 | disposition home or self-care (01) ==
LOC: US 14:49
PROVIDERS: PCP Family Medicine; Visit Provider Family Medicine
DX: I35.0 Nonrheumatic aortic (valve) stenosis (principal); I65.23 Occlusion and stenosis of bilateral carotid arteries; Z01.818 Encounter for other preprocedural examination
CPT/HCPCS: 93880